=== PATIENT | female | born 1980 | race Caucasian/White ===

== ENCOUNTER 2018-01-20 16:09 | Emergency (ER) | payer SELFPAY ==
[2018-01-20 16:10] VITALS: BP 130/85; PULSE 86; RESP 16; TEMP 37.4; O2SAT 100; BMI 20.9
--- NOTE | 2018-01-20 16:33 | ED.VISSUMM ---
- ER Visit Summary Date of Service: 01/20/18 Chief Complaint: Pain and laceration right forearm secondary to blunt trauma History of Present Illness: The patient is a 37 F who is right-handed presents with laceration proximal volar right forearm that measures 6.1 cm and pain to palpation over the ulna at the junction of the distal and mid third. She denies any paresthesia, anesthesia motors. She does complain of pain with certain movement. Last tetanus shot 4-5 years ago. She has no other complaints Physical Examination: Vital signs are noted. She has a 6.1 cm laceration which will require repair. The fascia was violated. There is no pain the patient over the lateral medial epicondyle. No pain the patient of the radial head. Is no pain the patient over the olecranon process. There is pain palpation over the ulna at the junction of the distal and mid third. Median, radial and ulnar function intact. Sensation in all digits is normal. Capillary refill is normal. Radial pulses palpable and symmetric. Extensor pollicis longus tendon is intact. The extensor in the side extensor commonest tendon are intact. The flexor digitorum superficialis and flexor digitorum profundus is intact in the index, long, ring and little finger. She is able to AB duct and adductor thumb against resistance. Test Results: Two-view x-ray of the right forearm reveals no fracture. There appears to be a small metallic foreign body which may be secondary to the shavings of the edge of the door. There also appears to be another foreign body. Radiologist concerned there is 2 foreign bodies. Emergency Department Course and Treatment: Will obtain x-ray of the forearm to evaluate for fracture and foreign body. If there is a fracture will contact orthopedics otherwise will repair wound. Treatment Plan: The wound was anesthetized 1% lidocaine by local filtration. The wound was irrigated and 50 cc of normal saline. Several fragments of metallic foreign body were irrigated from wound. The larger possible foreign body was not palpable and none was visualized. Believe the larger superficial foreign body was artifact in light of no foreign body noted on expiration of the wound. The laceration was closed in 2 layers. 2 subcuticular stitches placed using 5-0 Vicryl. The skin was closed using 5-0 Ethilon. A running stitch was placed with good cosmesis hemostasis. Disposition: Discharged home with appropriate home-going instructions Impression: 6.1 cm laceration proximal volar right forearm 2 layer closure initial encounter Removal of metallic foreign bodies by irrigation. This note was generated with SET dictation software. It may contain incorrect words, spelling, and punctuation that were not noted in review of the chart prior to signing ED Disposition - Plan for ED Patient: Disposition: Home or Assisted Living Chief Complaint: Laceration Instructions: ED Laceration Ext Sutr Stap Tape Referrals: Care Physician,No Primary [Primary Care Provider] - Caitlin Grimm [NON-STAFF] - 10-14 Days suture removal Additional Instructions: Clean wound with peroxide and Q-tip 3 times a day then apply bacitracin ointment.
== END 2018-01-20 17:42 | disposition home or self-care (01) ==
PROVIDERS: Emergency Provider Emergency Medicine
DX: S51.821A Laceration with foreign body of right forearm, initial encounter (principal); W45.8XXA Other foreign body or object entering through skin, initial encounter; Y93.9 Activity, unspecified; Y92.89 Other specified places as the place of occurrence of the external cause; Y99.9 Unspecified external cause status; Z72.0 Tobacco use
CPT/HCPCS: 12032; 73090; 99283

== ENCOUNTER 2018-02-03 12:07 | Emergency (ER) | payer SELFPAY ==
[2018-02-03 12:09] VITALS: BP 106/73; PULSE 94; RESP 18; TEMP 36.4; O2SAT 98; BMI 22.3
--- NOTE | 2018-02-03 13:19 | ED.VISSUMM ---
- ER Visit Summary Date of Service: 02/03/18 Chief Complaint: Suture removal History of Present Illness: The patient is a 37 F here requesting suture removal from her right forearm. Sutures were placed 15 days ago. There has been no redness or drainage. No complaints. Physical Examination: Sutures are clean, dry. No evidence of infection. No cellulitis. Test Results: None Emergency Department Course and Treatment: Moved without difficulty. No complications. No sign of infection Treatment Plan: Follow-up as needed Disposition: Home stable Impression: Encounter for suture removal right forearm This note was generated with [employer] dictation software. It may contain incorrect words, spelling, and punctuation that were not noted in review of the chart prior to signing ED Disposition - Plan for ED Patient: Chief Complaint: Wound Instructions: ED Sutr Removal No Compl Ch Referrals: Care Physician,No Primary [Primary Care Provider] -
== END 2018-02-03 14:02 | disposition home or self-care (01) ==
PROVIDERS: Emergency Provider Emergency Medicine
DX: Z48.02 Encounter for removal of sutures (principal)
CPT/HCPCS: 99282

== ENCOUNTER 2021-02-27 21:45 | Emergency (ER) | payer SELFPAY ==
[2021-02-27 21:46] VITALS: BP 158/112; PULSE 107; RESP 16; TEMP 36.2; O2SAT 98; BMI 25.3
--- NOTE | 2021-02-27 22:50 | ED.RN ---
witnessed doctor exam to R breast. Patient states she squeezed and some drainage came out but had not noticed that earlier. Patient demonstrate and swab sent.
--- NOTE | 2021-02-27 22:53 | EX.ED.DYSGE1 ---
HPI History of Present Illness Chief Complaint: Abscess Informant: patient Narrative Narrative: 40-year-old female states that on february she had nipple piercings placed. States she is doing well until this morning when she noticed that the right breast seem to be firmer and she was expressing pus from the nipple. She notes some mild erythema extending the medial upper quadrant of the breast. No reported fevers. PFSH PFSH Medical History Tubal ligation evaluation Home Medications cephalexin 500 mg PO Q6 #40 capsule 02/27/21 [Rx Last Taken Unknown] Allergy/AdvReac Type Severity Reaction Status Date / Time No Known Allergies Allergy Verified 02/27/21 21:48 Surgical History H/O tubal ligation Social History (Updated 02/27/21 @ 22:[address] James Wiley DO) Smoking Status: Current every day smoker tobacco type: cigarettes substance use type: does not use ROS ROS ED Constitutional Constitutional ED: Denies chills or weight loss Eyes Eyes: Denies change in vision or diplopia ENT ENT ED: Denies ear pain, rhinorrhea or sore throat Cardiovascular Cardiovascular: Denies chest pain, orthopnea, palpitations or racing heartbeat Respiratory/Chest Respiratory/Chest: Denies cough, dyspnea or orthopnea Gastrointestinal Gastrointestinal: Denies abdominal pain, diarrhea, nausea or vomiting Genitourinary Genitourinary ED: Denies dysuria, hematuria or urinary frequency Musculoskeletal Musculoskeletal: Denies arthralgias or myalgias Integumentary Reports other Details: See HPI ; Denies abscess or rash Neurologic Neurologic: Denies headache(s) or weakness Psychiatric Psychiatric: Denies anxiety, depression, suicidal ideation or suicidal thoughts Endocrine Endocrinology: Denies polydipsia, polyphagia or polyuria Allergic/Immunologic Allergic/Immunologic ED: Denies mouth swelling, tongue swelling or urticaria EXAM Physical Exam Narrative Exam Narrative: Patient examined in the presence of female nurse. Const Vital Signs: 02/27/21 21:46 Temperature 97.1 F L Temperature Source Temporal Pulse Rate 107 H Respiratory Rate 16 Blood Pressure 158/112 H Blood Pressure Mean 127 Pulse Ox 98 Oxygen Delivery Method Room Air Positive well nourished and well developed General Appearance ED: well developed HEENT Reports normocephalic, head/scalp atraumatic and moist mucous membranes Eyes PERRL and EOMs intact bilaterally Neck no lymphadenopathy, supple and no JVD Chest Wall Chest Narrative: Right breast demonstrates some erythema of the medial upper quadrant. There is a nipple piercing in place. There is a yellowish drainage from the nipple. There is some edema of the breast posterior to the nipple. Resp normal respiratory effort and clear to auscultation bilaterally Cardio regular rate, regular rhythm and no murmurs GI normal to inspection, nondistended, normoactive bowel sounds and non-tender Palpation: soft Back/Spine no CVA tenderness and normal ROM Extremity normal to inspection General Extremety ED: Negative for edema General Extremity: Negative for edema Neuro oriented x3 and CN's II-XII intact bilaterally Sensorium / Orientation: alert Motor Exam: strength 5/5 throughout Psych mental status grossly normal Mood & Affect: Negative for depressed or tearful Skin no rashes or lesions noted and no wounds MDM MDM MDM Narrative Medical decision making narrative: Wound culture was obtained. Patient be started on Keflex. Patient is to remove the piercing with. Clean appropriately using warm compresses. Return if worsening or concerns Discharge Plan Triage Chief Complaint: Abscess ED Provider: James Wiley Dx/Rx/DC Orders Clinical Impression: Mastitis, Infected piercing of trunk Instructions: ED Mastitis Prescriptions: New cephalexin [cephalexin] 500 MG capsule 500 mg PO Q6 Qty: 40 RF: 0 Primary Care Provider: Care Physician,No Primary Referrals: Carolyn Rodriguez MD [STAFF PHYSICIAN] - 1 Week if not improving Care Physician,No Primary [Primary Care Provider] - Disposition Disposition: Home, Self Care
[2021-02-27] MEDS: Cephalexin 250 MG Capsule 500 MG PO (23:00)
== END 2021-02-27 23:02 | disposition home or self-care (01) ==
PROVIDERS: Emergency Provider Emergency Medicine
DX: N61.0 Mastitis without abscess (principal); F17.210 Nicotine dependence, cigarettes, uncomplicated
CPT/HCPCS: 87070; 87077; 87186; 87205; 99283

== ENCOUNTER 2021-08-22 09:59 | Inpatient (IN) | payer SELFPAY ==
[2021-08-22] VITALS (14 sets, daily range): BP systolic 156–180; BP diastolic 103–123; PULSE 95–117; RESP 14–18; TEMP 36.5–36.7; O2SAT 94–98; BMI 24.2; BMI 23.6
--- NOTE | 2021-08-22 10:12 | EDS_ITS ---
HPI HPI - GI History of Present Illness Chief Complaint: Abd Pain Informant: patient Abdominal Pain/Flank Pain Onset: Today Context: Sudden Onset Timing: Continuous Quality: Stabbing Location: Epigastric Worsened by: Nothing Relieved by: Nothing Nausea/Vomiting/Emesis GI Symptom: Positive for Nausea and Vomiting Quality: Positive for Nonbilious; Negative for Blood streaks, Coffee ground and Hematemesis Episodes: 1 Diarrhea/Melena/Hematochezia GI Symptom: Negative for Diarrhea, Melena and Hematochezia Associated Symptoms Associated Symptoms: Negative for Dysuria, Frequency and Hematuria Narrative Narrative: Patient presents with epigastric pain that began this morning. Patient states it began rather suddenly. Patient describes the pain as stabbing. Patient states it has been constant throughout the day today. Patient states the pain is over the epigastric area and radiates up into her chest. Patient states nothing makes it better nothing makes it worse. Patient had one episode of vomiting today. Patient denies any hematemesis or coffee- ground emesis. Patient denies any diarrhea, melena, or hematochezia. Patient states her pain does radiate into her back. Patient denies any urinary complaints. [facility] Medical History Pancreatitis Tubal ligation evaluation Home Medications NK 08/22/21 [History Last Taken Unknown] Allergy/AdvReac Type Severity Reaction Status Date / Time No Known Allergies Allergy Verified 08/22/21 10:02 Surgical History H/O tubal ligation Social History (Updated 08/22/21 @ 13:[address] Karin Mckeon MD) household members: family and children housing: house Smoking Status: Current every day smoker tobacco type: cigarettes alcohol intake: current alcohol intake frequency: 0-2 drinks per day substance use type: does not use ROS ROS ED Constitutional Constitutional ED: Denies chills or fever(s) Eyes Eyes: Denies blurry vision or change in vision ENT ENT ED: Denies rhinorrhea or sore throat Cardiovascular Cardiovascular: Reports chest pain; Denies palpitations Respiratory/Chest Respiratory/Chest: Reports cough; Denies dyspnea Gastrointestinal Gastrointestinal: Reports abdominal pain, nausea and vomiting; Denies diarrhea or melena Genitourinary Genitourinary ED: Denies dysuria or hematuria Musculoskeletal Musculoskeletal: Reports back pain; Denies neck pain Integumentary Denies abscess or rash Neurologic Neurologic: Denies headache(s) or weakness Allergic/Immunologic Allergic/Immunologic ED: Denies mouth swelling or urticaria EXAM Physical Exam Const Vital Signs: 08/22/21 10:00 08/22/21 11:19 Temperature 97.8 F Temperature Source Temporal Pulse Rate 101 H 102 H Respiratory Rate 18 16 Blood Pressure 156/103 H 170/115 H Blood Pressure Mean 120 133 Pulse Ox 98 96 Oxygen Delivery Method Room Air Room Air Positive well nourished and well developed General Appearance ED: well developed HEENT Reports moist mucous membranes Neck supple and no JVD Resp normal respiratory effort and clear to auscultation bilaterally Cardio regular rate, regular rhythm and no murmurs GI normal to inspection, nondistended, normoactive bowel sounds Palpation: soft and tender epigastric; Negative for guarding or rebound tenderness present Extremity normal to inspection General Extremety ED: Negative for edema or tenderness General Extremity: Negative for edema Neuro oriented x3, CN's II-XII intact bilaterally and no sensory deficits noted Sensorium / Orientation: alert Motor Exam: strength 5/5 throughout Psych mental status grossly normal Skin no rashes or lesions noted MDM MDM MDM Narrative Medical decision making narrative: Patient was given IV fluids, morphine, and Zofran initially. EKG was obtained. On my interpretation, it showed a normal sinus rhythm with a rate of 92. [place] interval, QRS interval, and QTc intervals were all normal. [place] was normal. There is biatrial enlargement noted. There are no acute ST or T wave changes. CBC shows a mild leukocytosis of 14.7. Comprehensive metabolic profile shows a slightly elevated AST of 124 and ALT of 108. Lipase was 5000. Serum hCG was negative. Urinalysis does not show any evidence of urinary tract infection. Patient was complaining of persistent pain despite the morphine. Patient was given a dose of Dilaudid. Patient is feeling better after this. Case was discussed with the hospitalist. She recommended obtaining a CT scan of her abdomen and pelvis. This showed extensive peripancreatic edema with mild heterogeneous attenuation of the pancreas. There is no phlegmon or abscess noted. There is no pseudocyst noted. She will admit the patient to her service. Patient understood and was agreeable with the plan. All questions were answered. Lab Data Attestation: I reviewed the patient's lab results. Labs: Laboratory Results - last 24 hr 08/22/21 08/22/21 08/22/21 10:35 10:35 10:35 WBC 14.7 H RBC 4.73 Hgb 16.3 H Hct 46.6 MCV 98.5 MCH 34.5 H MCHC 35.0 RDW Std Deviation 46.8 H RDW Coeff of Frankie 12.8 Plt Count 381 MPV 9.8 Immature Gran % (Auto) 0.500 Neut % (Auto) 87.4 H Lymph % (Auto) 6.9 L [place] % (Auto) 4.8 Eos % (Auto) 0.1 Baso % (Auto) 0.3 Absolute Neuts (auto) 12.9 H Absolute Lymphs (auto) 1.01 Nucleated RBC % 0 Sodium 140 Potassium 3.1 L Chloride 103 Carbon Dioxide 28.0 Anion Gap 9 BUN 9 Creatinine 0.73 Estim Creat Clear Calc 86.69 Est GFR (MDRD) Af Amer 113 Est GFR (MDRD) Non-Af 93 BUN/Creatinine Ratio 12.4 Glucose 132 H Calcium 9.5 Total Bilirubin 0.50 AST 124 H ALT 108 H Alkaline Phosphatase 102 Total Protein 7.8 Albumin 3.9 Globulin 3.9 Albumin/Globulin Ratio 1.0 Lipase 5000 H Serum , Qual NEGATIVE Urine Color Urine Clarity Urine pH Ur Specific [place] Urine Protein Urine Glucose (UA) Urine Ketones Urine Occult Blood Urine Nitrite Urine Bilirubin Urine Urobilinogen Ur Leukocyte Esterase Urine RBC Urine WBC Ur Squamous Epith Cells Urine Bacteria Urine Mucus 08/22/21 10:35 WBC RBC Hgb Hct MCV MCH MCHC RDW Std Deviation RDW Coeff of Frankie Plt Count MPV Immature Gran % (Auto) Neut % (Auto) Lymph % (Auto) [place] % (Auto) Eos % (Auto) Baso % (Auto) Absolute Neuts (auto) Absolute Lymphs (auto) Nucleated RBC % Sodium Potassium Chloride Carbon Dioxide Anion Gap BUN Creatinine Estim Creat Clear Calc Est GFR (MDRD) Af Amer Est GFR (MDRD) Non-Af BUN/Creatinine Ratio Glucose Calcium Total Bilirubin AST ALT Alkaline Phosphatase Total Protein Albumin Globulin Albumin/Globulin Ratio Lipase Serum , Qual Urine Color Yellow Urine Clarity Cloudy Urine pH 6.0 Ur Specific [place] 1.025 Urine Protein 100 H Urine Glucose (UA) Normal Urine Ketones 5 H Urine Occult Blood 25 H Urine Nitrite Negative Urine Bilirubin Negative Urine Urobilinogen 1 H Ur Leukocyte Esterase 25 H Urine RBC 0-5 SEEN Urine WBC 0-5 SEEN Ur Squamous Epith Cells 5-10 SEEN Urine Bacteria 4+ Urine Mucus RARE EKG Initial EKG: Attestation: I personally reviewed and interpreted this EKG as follows: Interpretation: Sinus Rhythm (92) and No Acute Injury Pattern Discharge Plan Dx/Rx/DC Orders Clinical Impression: Acute pancreatitis Disposition Disposition: Acute Care Hospital [facility] Discharge Date/Time: 08/22/21 14:15
[2021-08-22] MEDS: 0.9% Normal Saline 1,000 ML 1000 ML IV (10:30)
[2021-08-22] MEDS: Morphine 4 MG/ML Syringe IV (10:31)
[2021-08-22] MEDS: Ondansetron 4 MG/2 ML Vial IV (10:31)
[2021-08-22 10:42] LABS: Absolute Lymphocyte Count 1.01 X10^3/uL (0.83-4.51); Absolute Neutrophil Count 12.9 X10^3/uL (2.0-7.7); Basophil# 0.04 X10^3/uL; Basophil% 0.3 % (0-1); Color, Urine Yellow (Yellow); Eosinophil# 0.01 X10^3/uL; Eosinophils% 0.1 % (0-5); Glucose, Dipstick Normal (Normal); Hematocrit 46.6 % (37-47); Hemoglobin 16.3 g/dL (12.0-15.0); Ketone-Dipstick 5 mg/dl (Negative); Leukocyte Esterase-Dipstick 25 /ul (Negative); Lymphocyte # 1.01 X10^3/ul (0.83-4.51); Lymphocyte % 6.9 % (19-41); Mean Corpuscular Hgb 34.5 pg (27.0-32.0); Mean Corpuscular Volume 98.5 fL (81-99); Mean Platelet Vol. 9.8 fl (6.2-12.0); Monocyte% 4.8 % (0-10); NRBC Flagged by Analyzer 0 % (0-5); Neutrophil % 87.4 % (47-70); Nitrite-Dipstick Negative (Negative); Occult Blood-Urine 25 /ul (Negative); Platelet Count 381 K/mm3 (150-450); Protein-Dipstick 100 mg/dl (Negative); RBC Distribution Width CV 12.8 % (11.6-14.6); RBC Distribution Width SD 46.8 fl (35.1-43.9); Red Blood Count 4.73 M/mm3 (4.2-5.4); Specific Gravity, Urine 1.025 (1.002-1.030); Urine Bilirubin Dipstick Negative (Negative); Urine Clarity Cloudy (Clear); Urine Urobilinogen 1 mg/dl (Normal); White Blood Count 14.7 K/mm3 (4.4-11.0)
[2021-08-22 10:48] LABS: Red Blood Cells-Urine 0-5 SEEN /hpf (0-5); White Blood Cells 0-5 SEEN /hpf (0-5)
[2021-08-22 10:49] LABS: Bacteria 4+ /hpf (None Seen); Mucous, Urine RARE /hpf (<or=2+); Squamous Epithelial Cells - UA 5-10 SEEN /hpf (5-10)
[2021-08-22 11:13] LABS: AST(SGOT) 124 U/L (15-37); Alanine Aminotransfer ALT/SGPT 108 U/L (13-56); Albumin, Serum 3.9 g/dL (3.2-5.0); Alkaline Phosphatase 102 U/L (45-117); Anion Gap 9 (5-15); BUN 9 mg/dL (7-18); BUN/Creat Ratio 12.4 RATIO (10-20); Calcium,Total 9.5 mg/dL (8.5-10.1); Chloride 103 mmol/L (98-107); Creatinine, Serum 0.73 mg/dL (0.55-1.02); EST Glomerular Filtration Rate 93 mL/min (>60); Est Glom Filt Rate - Afr Amer 113 mL/min (>60); Estimated Creatinine Clearance 86.69 ml/min; Globulin 3.9 g/dL (2.2-4.2); Glucose 132 mg/dL (74-106); Lipase 5000 U/L (73-393); Potassium 3.1 mmol/L (3.5-5.1); Protein, Total 7.8 g/dL (6.4-8.2); Sodium Level 140 mmol/L (136-145)
[2021-08-22 11:29] LABS: Internal QC Validated? YES +Cl - CLEAR BKGD; Pregnancy, Serum, hCG Quali. NEGATIVE Negative
[2021-08-22] MEDS: HYDROmorphone 1 MG/ML Syringe 0.5 MG IV (12:10)
--- NOTE | 2021-08-22 12:38 | HP.PCM.HOS_ITS ---
[facility] - General General Date of Service: 08/22/21 Chief Complaint: Abdominal pain, nausea and vomiting - 1 day HPI Narrative ERWIN GROVES, is a 41 F who presents with abdominal pain, nausea and vomiting that started this morning at 6 AM. Patient has history of chronic alcohol abuse, she drinks 2 glasses of vodka cranberry every day. She has a history of acute pancreatitis related to alcohol about a year ago. She was admitted at [facility]. Patient stated that her abdominal pain is epigastric/substernal, seems to radiate to both sides of the upper abdomen and to her back. This was associated with nausea. Nothing makes it better, nothing makes it worse. She had an episode of vomiting, no hematemesis. She tried to take 2 tablets of ibuprofen with no improvement in her pain. Her blood pressure 156/103, temperature 97.8 F, heart rate 101, respiration rate 18, SPO2 98% on room air WBC count is 14.7, hemoglobin 16.3, platelet count 381, sodium 140, potassium 3.1, chloride 103, bicarbonate 28, BUN 9, creatinine 0.73, lipase is 5000. CT scan of abd/pelvis and EKG are pending. [facility] Medical History Pancreatitis Tubal ligation evaluation Home Medications NK 08/22/21 [History Last Taken Unknown] Allergy/AdvReac Type Severity Reaction Status Date / Time No Known Allergies Allergy Verified 08/22/21 10:02 no significant family history Surgical History H/O tubal ligation Social History (Updated 08/22/21 @ 13:[address] Karin Mckeon MD) household members: family and children housing: house Smoking Status: Current every day smoker tobacco type: cigarettes alcohol intake: current alcohol intake frequency: 0-2 drinks per day substance use type: does not use ROS ROS Narrative Constitutional: Denies: Anorexia, Chills, Fever, Night Sweats, Weight Change Eyes: Denies: Blurred vision, Cataracts, Conjunctivae Inflammation, Pain, Redness, Vision Change HEENT: Denies: Difficulty Hearing, Difficulty Swallowing, Head Aches, Hearing Changes, Sinus Congestion, Sinus Drainage Cardiovascular: Denies: Chest Pain, Orthopnea, Palpitations Respiratory: Denies: Cough, Shortness of breath at rest, Sputum production Gastrointestinal: See HPI Genitourinary: Denies: Dysuria Musculoskeletal: Denies: Joint Pain, Joint stiffness, Joint swelling, Joint Tenderness Skin: Denies: Rash, Wounds Neurological: Denies: Numbness, Tingling, Focal weakness Vital Signs Vital Signs Vital Signs: 08/22/21 10:00 08/22/21 11:19 Temperature 97.8 F Temperature Source Temporal Pulse Rate 101 H 102 H Respiratory Rate 18 16 Blood Pressure 156/103 H 170/115 H Blood Pressure Mean 120 133 Pulse Ox 98 96 Oxygen Delivery Method Room Air Room Air Weight Weight: 64 kg Body Mass Index (BMI) 24.2 Physical Exam Narrative Physical exam: General: Alert, Oriented x3, Cooperative, No apparent distress, Well developed HEENT: Atraumatic Oral: Moist Mucosa Neck: Supple Lungs: Clear to auscultation Cardiovascular: HS I+II, regular, no murmurs Abdomen: Bowel Sounds Present, Soft, tenderness in upper abdomen especially in epigastric with guarding, no rebound tenderness Extremities: No edema Skin: No rashes, No breakdown Neurological: Grossly intact Psych/Mental Status: Appropriate Results Lab / Micro Data Result Diagrams: 08/22/21 10:35 08/22/21 10:35 Labs: Laboratory Results - last 24 hr 08/22/21 10:35: WBC 14.7 H, RBC 4.73, Hgb 16.3 H, Hct 46.6, MCV 98.5, MCH 34.5 H , MCHC 35.0, RDW Std Deviation 46.8 H, RDW Coeff of Frankie 12.8, Plt Count 381, MPV 9.8, Immature Gran % (Auto) 0.500, Neut % (Auto) 87.4 H, Lymph % (Auto) 6.9 L, [place] % (Auto) 4.8, Eos % (Auto) 0.1, Baso % (Auto) 0.3, Absolute Neuts (auto) 12.9 H, Absolute Lymphs (auto) 1.01, Nucleated RBC % 0 08/22/21 10:35: Sodium 140, Potassium 3.1 L, Chloride 103, Carbon Dioxide 28.0, Anion Gap 9, BUN 9, Creatinine 0.73, Estim Creat Clear Calc 86.69, Est GFR (MDRD) Af Amer 113, Est GFR (MDRD) Non-Af 93, BUN/Creatinine Ratio 12.4, Glucose 132 H, Calcium 9.5, Total Bilirubin 0.50, AST 124 H, ALT 108 H, Alkaline Phosp hatase 102, Total Protein 7.8, Albumin 3.9, Globulin 3.9, Albumin/Globulin Ratio 1.0, Lipase 5000 H 08/22/21 10:35: Serum , Qual NEGATIVE 08/22/21 10:35: Urine Color Yellow, Urine Clarity Cloudy, Urine pH 6.0, Ur Specific [place] 1.025, Urine Protein 100 H, Urine Glucose (UA) Normal, Urine Ketones 5 H, Urine Occult Blood 25 H, Urine Nitrite Negative, Urine Bilirubin Negative, Urine Urobilinogen 1 H, Ur Leukocyte Esterase 25 H, Urine RBC 0-5 SEEN, Urine WBC 0-5 SEEN, Ur Squamous Epith Cells 5-10 SEEN, Urine Bacteria 4+, Urine Mucus RARE Assessment & Plan Assessment/Plan (1) Acute pancreatitis: QUALIFIERS: Acute pancreatitis complication: no infection or necrosis Pancreatitis type: alcohol induced Qualified Code(s): K85.20 - Alcohol induced acute pancreatitis without necrosis or infection (2) Hypokalemia: PLAN: 1. Acute alcohol induced pancreatitis, in a patient with known alcohol abuse Patient with symptoms that started on the morning of admission. Admitting lipase is 5000 CT of the abdomen and pelvis is pending Continue to keep n.p.o., IV fluids, IV famotidine 2. Hypokalemia related to vomiting #1 Will replaced, recheck in a.m. 3. 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 Nicotine dependence, on replacement 5. DVT PPx-low risk; early ambulation recommended Charges/Coding Visit Charges Inpatient E&M: 81832 Init Hosp L3
--- NOTE | 2021-08-22 12:45 | CT_ITS ---
STUDY: CT ABDOMEN AND PELVIS WITH CONTRAST REASON FOR EXAM: Female, 41 years old. Pancreatitis RADIATION DOSAGE (If Supplied By Facility): CTDIvol = ( 11.00 ) mGy, DLP = ( 420.18 ) mGycm TECHNIQUE: Transaxial images were obtained from the dome of the diaphragm to the symphysis pubis without oral contrast. IV 100mL Isovue-300 was administered. Sagittal and coronal images were reconstructed. Individualized dose optimization techniques were used for this CT. COMPARISON: 07/10/14. FINDINGS: The visualized lung bases are unremarkable. The visualized portions of the heart are within normal limits. Normal liver. Normal gallbladder and extrahepatic biliary system. Normal spleen. There is minimal heterogeneous attenuation of the pancreas with extensive ivory-pancreatic edema suggesting acute pancreatitis. Normal bilateral adrenal glands. Normal right kidney. Normal left kidney. Normal visualized stomach. Normal small intestine. Normal colon. The appendix is visualized and appears normal. Normal abdominal aorta. Normal inferior vena cava. Normal retroperitoneum. Small amount of gas within the urinary bladder may be related to recent instrumentation. Normal visualized uterus. There is a small umbilical hernia containing fat. Normal osseous structures. CT/Abdomen/Pelvis W IV Cont ONLY IMPRESSION: Extensive peripancreatic edema and mild heterogeneous attenuation of the pancreas likely represents acute pancreatitis in the appropriate clinical setting. No focal collection or gross evidence of necrosis at this time. Electronically Signed: Ned Jensen MD at 14:25 EDT ,
--- NOTE | 2021-08-22 12:56 | EKG12_ITS ---
Test Reason : ABDOMINAL PAIN Blood Pressure : / mmHG Vent. Rate : 092 BPM Atrial Rate : 092 BPM P-R Int : 158 ms QRS Dur : 080 ms QT Int : 392 ms P-R-T Axes : 068 012 062 degrees QTc Int : 484 ms Normal sinus rhythm Biatrial enlargement Prolonged QT Abnormal ECG Confirmed by HANNAH TEMPLETON, STEFANI ([id number]), visual effects editor CONNIE REYES ([id number]) on 08/26/2021 9:18:15 AM Referred By: JOSE Confirmed By:STEFANI YOUNG MD
[2021-08-22] MEDS: HYDROmorphone 0.5 MG/0.5 ML SYRINGE IV (14:06)
--- NOTE | 2021-08-22 14:27 | US_ITS ---
EXAM: US ABDOMEN LIMITED, RIGHT UPPER QUADRANT : 1980 CLINICAL INDICATION: Acute pancreatitis TECHNIQUE: Real-time ultrasound of the right upper quadrant with image documentation. This report was created using Eponym report Say-Hey technology. COMPARISON: None. FINDINGS: LIVER: The liver measures 16.9 cm. There is mild increased echogenicity of the liver. No intrahepatic biliary ductal dilation. GALLBLADDER: Gallbladder wall measures 2.7 mm. There is a small amount of pericholecystic fluid. Negative sonographic Lindsay's sign. COMMON BILE DUCT: Common bile that measures 5.5 mm. The proximal common bile duct is within normal limits for the patient's age. PANCREAS: Unremarkable as visualized. No focal abnormality is demonstrated in the pancreas. No pancreatic ductal dilatation. RIGHT KIDNEY: Right kidney measures 11.2 x 6.8 x 6.1 cm. Right renal cortex measures 1.4 cm. There is no hydronephrosis. No shadowing calculus. No focal lesion or perinephric collection is demonstrated. FREE FLUID: There is a small amount of free fluid present surrounding the liver margin. US/Gallbladder IMPRESSION: Free fluid in the upper abdomen which may represent ascites. There is no evidence of cholelithiasis or cholecystitis. There is mild fatty infiltration of the liver. at 1129 Reported and signed by: Frank Ramos MD Electronically Signed: Frank Ramos MD at 11:28 EDT ,
[2021-08-22] MEDS: Lactated Ringers 1,000 ML 150 ML IV (14:41)
[2021-08-22] MEDS: Potassium Chloride 10mEq/100mL 10 MEQ/100 ML IV.SOLN. 100 MEQ IV BOLUS ×4 (14:54→18:08)
[2021-08-22] MEDS: Phenobarbital 32.4 MG Tablet 64.8 MG PO ×3 (15:50→23:47)
[2021-08-22] MEDS: hydrALAZINE 20 MG/ML Vial 5 MG IV (15:54)
[2021-08-22] MEDS: 0.9% Saline Lock 10 ML Syringe IV (17:01)
[2021-08-22] MEDS: HYDROmorphone 1 MG/ML Syringe 2 MG IV ×2 (17:01→22:19)
[2021-08-22 17:03] LABS: Magnesium 1.5 mg/dL (1.6-2.6)
[2021-08-22] MEDS: amLODIPine 5 MG Tablet PO (18:08)
[2021-08-22] MEDS: cloNIDine HCl 0.1 MG Tablet PO (20:46)
[2021-08-22] MEDS: Lactated Ringers 1,000 ML 75 ML IV (23:48)
[2021-08-23] VITALS (7 sets, daily range): BP systolic 110–159; BP diastolic 78–112; PULSE 111–117; RESP 15–16; TEMP 36–36.9; O2SAT 94–100
[2021-08-23] MEDS: 0.9% Saline Lock 10 ML Syringe IV ×2 (02:38→10:05)
[2021-08-23] MEDS: HYDROmorphone 1 MG/ML Syringe 2 MG IV ×5 (02:39→20:35)
[2021-08-23] MEDS: Phenobarbital 32.4 MG Tablet 64.8 MG PO ×5 (04:15→20:14)
[2021-08-23 06:32] LABS: Absolute Lymphocyte Count 1.11 X10^3/uL (0.83-4.51); Absolute Neutrophil Count 7.7 X10^3/uL (2.0-7.7); Basophil# 0.02 X10^3/uL; Basophil% 0.2 % (0-1); Eosinophil# 0.13 X10^3/uL; Eosinophils% 1.3 % (0-5); Hematocrit 43.5 % (37-47); Hemoglobin 15.1 g/dL (12.0-15.0); Lymphocyte # 1.11 X10^3/ul (0.83-4.51); Lymphocyte % 11.4 % (19-41); Mean Corp Hgb Conc 34.7 g/dL (32-36); Mean Corpuscular Hgb 34.2 pg (27.0-32.0); Mean Corpuscular Volume 98.6 fL (81-99); Mean Platelet Vol. 10.3 fl (6.2-12.0); Monocyte# 0.69 X10^3/uL; Monocyte% 7.1 % (0-10); NRBC Flagged by Analyzer 0 % (0-5); Neutrophil # 7.74 X10^3/uL (2.7-7.7); Neutrophil % 79.5 % (47-70); Platelet Count 277 K/mm3 (150-450); RBC Distribution Width CV 12.9 % (11.6-14.6); RBC Distribution Width SD 46.9 fl (35.1-43.9); Red Blood Count 4.41 M/mm3 (4.2-5.4); White Blood Count 9.7 K/mm3 (4.4-11.0)
[2021-08-23 06:52] LABS: AST(SGOT) 45 U/L (15-37); Alanine Aminotransfer ALT/SGPT 59 U/L (13-56); Alkaline Phosphatase 81 U/L (45-117); Anion Gap 5 (5-15); BUN 11 mg/dL (7-18); BUN/Creat Ratio 16.9 RATIO (10-20); Calcium,Total 8.8 mg/dL (8.5-10.1); Chloride 101 mmol/L (98-107); Cholesterol 225 mg/dL (200); Creatinine, Serum 0.65 mg/dL (0.55-1.02); EST Glomerular Filtration Rate 106 mL/min (>60); Est Glom Filt Rate - Afr Amer 128 mL/min (>60); Estimated Creatinine Clearance 97.36 ml/min; Glucose 96 mg/dL (74-106); Potassium 3.6 mmol/L (3.5-5.1); Sodium Level 136 mmol/L (136-145); Triglycerides 104 mg/dL
[2021-08-23 06:53] LABS: High Density Lipoprotein 65 mg/dL; Very Low Density Lipoprotein 21 mg/dL (5-40)
--- NOTE | 2021-08-23 07:47 | PCM.PN.HOSP ---
Subjective Subjective Follow-up on acute pancreatitis/elevated blood pressure: Patient was seen and examined. No acute events overnight. She denied any nausea or vomiting. She admits to epigastric discomfort but states that her pain in general is improved. Objective Data Objective Data Vital Signs: Vital Signs Temp Pulse Resp BP Pulse Ox 96.8 F L 112 H 16 110/78 98 08/23/21 06:20 08/23/21 06:20 08/23/21 06:20 08/23/21 06:20 08/23/21 06:20 Oxygen Delivery Method Room Air Weight: 62.596 kg Body Mass Index (BMI) 23.6 Intake & Output: Intake and Output for Last 24 Hours 08/21/21 08/22/21 08/23/21 23:59 23:59 23:59 Intake Total 2341.25 / 2341.25 175 / 175 Balance 2341.25 / 2341.25 175 / 175 Lab / Micro Data Result Diagrams: 08/23/21 05:50 08/23/21 05:50 Labs: Laboratory Results - last 24 hr 08/22/21 10:35: WBC 14.7 H, RBC 4.73, Hgb 16.3 H, Hct 46.6, MCV 98.5, MCH 34.5 H, MCHC 35.0, RDW Std Deviation 46.8 H, RDW Coeff of Frankie 12.8, Plt Count 381, MPV 9.8, Immature Gran % (Auto) 0.500, Neut % (Auto) 87.4 H, Lymph % (Auto) 6.9 L, [place] % (Auto) 4.8, Eos % (Auto) 0.1, Baso % (Auto) 0.3, Absolute Neuts (auto) 12.9 H, Absolute Lymphs (auto) 1.01, Nucleated RBC % 0 08/22/21 10:35: Sodium 140, Potassium 3.1 L, Chloride 103, Carbon Dioxide 28.0, Anion Gap 9, BUN 9, Creatinine 0.73, Estim Creat Clear Calc 86.69, Est GFR (MDRD) Af Amer 113, Est GFR (MDRD) Non-Af 93, BUN/Creatinine Ratio 12.4, Glucose 132 H, Calcium 9.5, Total Bilirubin 0.50, AST 124 H, ALT 108 H, Alkaline Phosphatase 102, Total Protein 7.8, Albumin 3.9, Globulin 3.9, Albumin/Globulin Ratio 1.0, Lipase 5000 H 08/22/21 10:35: Serum , Qual NEGATIVE 08/22/21 10:35: Urine Color Yellow, Urine Clarity Cloudy, Urine pH 6.0, Ur Specific [place] 1.025, Urine Protein 100 H, Urine Glucose (UA) Normal, Urine Ketones 5 H, Urine Occult Blood 25 H, Urine Nitrite Negative, Urine Bilirubin Negative, Urine Urobilinogen 1 H, Ur Leukocyte Esterase 25 H, Urine RBC 0-5 SEEN, Urine WBC 0-5 SEEN, Ur Squamous Epith Cells 5-10 SEEN, Urine Bacteria 4+, Urine Mucus RARE 08/22/21 10:35: Magnesium 1.5 L 08/23/21 05:50: WBC 9.7, RBC 4.41, Hgb 15.1 H, Hct 43.5, MCV 98.6, MCH 34.2 H, MCHC 34.7, RDW Std Deviation 46.9 H, RDW Coeff of Frankie 12.9, Plt Count 277, MPV 10.3, Immature Gran % (Auto) 0.500, Neut % (Auto) 79.5 H, Lymph % (Auto) 11.4 L, [place] % (Auto) 7.1, Eos % (Auto) 1.3, Baso % (Auto) 0.2, Absolute Neuts (auto) 7.7, Absolute Lymphs (auto) 1.11, Nucleated RBC % 0 08/23/21 05:50: Sodium 136, Potassium 3.6, Chloride 101, Carbon Dioxide 30.0, Anion Gap 5, BUN 11, Creatinine 0.65, Estim Creat Clear Calc 97.36, Est GFR (MDRD) Af Amer 128, Est GFR (MDRD) Non-Af 106, BUN/Creatinine Ratio 16.9, Glucose 96, Calcium 8.8, Total Bilirubin 0.80, AST 45 H, ALT 59 H, Alkaline Phosphatase 81, Total Protein 6.0 L, Albumin 3.0 L, Globulin 3.0, Albumin/Globulin Ratio 1.0, Triglycerides 104, Cholesterol 225 H, LDL Cholesterol 139 H, VLDL Cholesterol 21, HDL Cholesterol 65 Radiography Diagnostic Testing: Radiology Impression Abdomen/Pelvis CT 08/22/21 12:45 IMPRESSION: Extensive peripancreatic edema and mild heterogeneous attenuation of the pancreas likely represents acute pancreatitis in the appropriate clinical setting. No focal collection or gross evidence of necrosis at this time. Electronically Signed: Ned Jensen MD at 14:25 EDT , Physical Exam Narrative Physical exam: General: Alert, Oriented x3, Cooperative, No apparent distress, Well developed HEENT: Atraumatic Oral: Moist Mucosa Neck: Supple Lungs: Clear to auscultation Cardiovascular: HS I+II, regular, no murmurs Abdomen: Bowel Sounds Present, Soft, tenderness in upper abdomen especially in epigastric with guarding, no rebound tenderness Extremities: No edema Assessment & Plan Assessment/Plan (1) Acute pancreatitis: QUALIFIERS: Pancreatitis type: alcohol induced Acute pancreatitis complication: no infection or necrosis Qualified Code(s): K85.20 - Alcohol induced acute pancreatitis without necrosis or infection (2) Hypokalemia: PLAN: 1. Acute alcohol induced pancreatitis, in a patient with known alcohol abuse Patient with symptoms that started on the morning of admission. Admitting lipase is 5000 CT of the abdomen and pelvis shows extensive peripancreatic edema suggestive of acute severe pancreatitis Total cholesterol 225, DL is 139, triglycerides is 104 Continue to keep n.p.o., IV fluids, IV famotidine We will get ultrasound of the gallbladder, Would hold off on starting for hyperlipidemia now We will slowly advance diet as can be tolerated 2. Elevated blood pressure without history of hypertension Likely was related to severe pain/discomfort/anxiety Patient required start of amlodipine, hydralazine as needed, clonidine as needed We will continue to monitor with holding parameters for amlodipine 3. Hypokalemia related to vomiting #1, resolved 4. Hypomagnesemia, replaced, recheck in a.m. 5. 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 Nicotine dependence, on replacement 7. DVT PPx-low risk; early ambulation recommended Charges/Coding Visit Charges Inpatient E&M: 44832 Subs Hosp L2
[2021-08-23] MEDS: amLODIPine 5 MG Tablet PO (08:57)
[2021-08-23] MEDS: Folic Acid 1 MG Tablet PO (10:05)
[2021-08-23] MEDS: Thiamine Hydrochloride 100 MG Tablet PO (10:05)
--- NOTE | 2021-08-23 10:05 | CASEMGMT ---
RN CAMRON Assessment: Face to Face with pt for initial transition planning/care coordination assessment. RN CAMRON introduced self and role at [facility], pt voices understanding and consents to assessment. Pt is A/O x4 and answers all questions appropriately at this time. Pt has 2 daughters present in room and is agreeable for assessment to be performed in their presence. Care providers, pharmacy, and demographics verified/updated. Admitting Dx: acute pancreatitis PCP:Pt denies having a PCP. She denies need for this RN CAMRON to provide her with a local healthcare directory of PCP's. She states she will find one on her own. Specialists:Pt denies. Preferred [facility]acy: [facility] Insurance: Self Pay Prescription Benefit: no LW/HPOA: Pt denies having a LW/DPOA and denies need for info regarding AD. LNOK: Kathy Shane, mother Living Arrangements: Pt lives with mother and one dtr in a single story house with 5 steps to enter with a rail. Pt denies concerns at home. Transportation: Pt drives self and denies concerns with transportation. DME/HHC/SNF: Pt denies having any DME, previous HHC or SNF stays. 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 Made pt aware this RN CM was going to ask a few recreational questions and asked if she wanted these to be asked in front of daughters. She states Go ahead, they know everything. Pt reports she drinks two glasses of vodka per night with cranberry juice and smokes 1 pack of cigarettes per day. Pt denies any street or illegal drug use. Pt states no concerns with going home at time of dc. Pt states no further concerns/needs. CM to follow. Advised pt to ask CM if any further question/concerns/needs arise, voices understanding. Pt Goal: Home Plan: Home Pt declines need to designate a person to discuss her dc plan with.
[2021-08-23] MEDS: Ondansetron 4 MG/2 ML Vial IV (12:18)
--- NOTE | 2021-08-23 16:10 | CASEMGMT ---
Social Work Note SANDRA reviewed chart. Referral was received for Advanced Directives. Pt is also listed as self-pay and has history of ETOH use. SW in to speak with pt. SW introduced self and role at [facility]. Pt is alert and orientated. Pt confirms she has no insurance, states she is in the middle of getting it. Pt states she has applied for Medicaid before. SW provided pt with financial resources including Medicaid Application, HCAP, Prescription Assistance, [employer] People, and [employer]. SW asked pt about ETOH use. Pt states she drinks two cranberry and vodka daily. Pt states that she plans on not drinking anymore when she returns home. Pt states she never drank until about a year ago when she started drinking. Pt denied needing any ETOH/Counseling resources. SW asked pt about Advanced Directives, pt denied wanting information on Advanced Directives. SW asked pt about her visitors as they appeared young in age. Pt states her visitors are her daughter's. Pt states that one is 19 and lives close and the other one will be turning 17 in the next few days and the 17 year old will be staying with the 19 year old. Pt denied additional needs or concerns at this time. Cindy Acosta ELECTRICAL HELPER, CRM DEVELOPER
[2021-08-23] MEDS: Lactated Ringers 1,000 ML 75 ML IV (16:39)
[2021-08-24] MEDS: 0.9% Saline Lock 10 ML Syringe IV (00:16)
[2021-08-24] MEDS: Phenobarbital 32.4 MG Tablet 64.8 MG PO ×5 (00:16→16:31)
[2021-08-24] MEDS: HYDROmorphone 1 MG/ML Syringe 2 MG IV ×3 (02:02→12:48)
[2021-08-24 02:10] VITALS: BP 131/96; PULSE 115; RESP 16; TEMP 36.6; O2SAT 93
[2021-08-24] MEDS: Lactated Ringers 1,000 ML 75 ML IV ×2 (04:54→18:29)
[2021-08-24 06:16] LABS: Absolute Lymphocyte Count 1.29 X10^3/uL (0.83-4.51); Absolute Neutrophil Count 7.6 X10^3/uL (2.0-7.7); Basophil# 0.04 X10^3/uL; Basophil% 0.4 % (0-1); Eosinophil# 0.28 X10^3/uL; Eosinophils% 2.8 % (0-5); Hematocrit 40.4 % (37-47); Hemoglobin 13.7 g/dL (12.0-15.0); Lymphocyte # 1.29 X10^3/ul (0.83-4.51); Mean Corp Hgb Conc 33.9 g/dL (32-36); Mean Corpuscular Hgb 33.3 pg (27.0-32.0); Mean Corpuscular Volume 98.1 fL (81-99); Mean Platelet Vol. 10.4 fl (6.2-12.0); Monocyte# 0.73 X10^3/uL; Monocyte% 7.4 % (0-10); NRBC Flagged by Analyzer 0 % (0-5); Neutrophil # 7.56 X10^3/uL (2.7-7.7); Neutrophil % 76.1 % (47-70); Platelet Count 228 K/mm3 (150-450); RBC Distribution Width CV 12.7 % (11.6-14.6); RBC Distribution Width SD 45.5 fl (35.1-43.9); Red Blood Count 4.12 M/mm3 (4.2-5.4); White Blood Count 9.9 K/mm3 (4.4-11.0)
[2021-08-24 06:44] LABS: ALB/GLOB Ratio 0.8 RATIO (0.9-2.4); AST(SGOT) 29 U/L (15-37); Alanine Aminotransfer ALT/SGPT 42 U/L (13-56); Albumin, Serum 2.7 g/dL (3.2-5.0); Alkaline Phosphatase 76 U/L (45-117); Anion Gap 8 (5-15); BUN 6 mg/dL (7-18); BUN/Creat Ratio 12.8 RATIO (10-20); Calcium,Total 8.5 mg/dL (8.5-10.1); Chloride 100 mmol/L (98-107); Creatinine, Serum 0.47 mg/dL (0.55-1.02); EST Glomerular Filtration Rate 156 mL/min (>60); Est Glom Filt Rate - Afr Amer 188 mL/min (>60); Estimated Creatinine Clearance 134.65 ml/min; Globulin 3.3 g/dL (2.2-4.2); Glucose 77 mg/dL (74-106); Magnesium 1.9 mg/dL (1.6-2.6); Potassium 3.2 mmol/L (3.5-5.1); Sodium Level 134 mmol/L (136-145)
[2021-08-24 08:48] VITALS: BP 117/79; PULSE 92; RESP 16; TEMP 36.8; O2SAT 92
[2021-08-24] MEDS: Thiamine Hydrochloride 100 MG Tablet PO (09:00)
[2021-08-24] MEDS: Folic Acid 1 MG Tablet PO (09:00)
[2021-08-24] MEDS: amLODIPine 5 MG Tablet PO (09:00)
--- NOTE | 2021-08-24 11:02 | ADDICTION ---
This worker attempted to discuss her ETOH use. She was not interested in discussing her use and reported that her drinking was not an issue and she did not plan on drinking once discharged from [facility].
[2021-08-24 12:49] VITALS: BP 115/73; PULSE 98; RESP 16; TEMP 36.8; O2SAT 93
[2021-08-24 16:27] VITALS: BP 121/87; PULSE 103; RESP 16; TEMP 37.1; O2SAT 92
[2021-08-24] MEDS: Dicyclomine 10 MG Capsule 20 MG PO (16:42)
--- NOTE | 2021-08-24 17:03 | PCM.PN.HOSP ---
Subjective Subjective Patient was seen and examined today, she still complains of generalized mid abdominal pain, she has no complaints at this time of nausea or vomiting. Objective Data Objective Data Vital Signs: Vital Signs Temp Pulse Resp BP Pulse Ox 98.7 F 103 H 16 121/87 H 92 08/24/21 16:27 08/24/21 16:27 08/24/21 16:27 08/24/21 16:27 08/24/21 16:27 Oxygen Delivery Method Room Air Weight: 62.596 kg Body Mass Index (BMI) 23.6 Intake & Output: Intake and Output for Last 24 Hours 08/22/21 08/23/21 08/24/21 23:59 23:59 23:59 Intake Total 2341.25 / 2341.25 1399 / 1399 968.75 / 968.75 Output Total 450 / 450 600 / 600 Balance 2341.25 / 2341.25 949 / 949 368.75 / 368.75 Lab / Micro Data Result Diagrams: 08/24/21 05:45 08/24/21 05:45 Labs: Laboratory Results - last 24 hr 08/24/21 05:45: WBC 9.9, RBC 4.12 L, Hgb 13.7, Hct 40.4, MCV 98.1, MCH 33.3 H, MCHC 33.9, RDW Std Deviation 45.5 H, RDW Coeff of Frankie 12.7, Plt Count 228, MPV 10.4, Immature Gran % (Auto) 0.300, Neut % (Auto) 76.1 H, Lymph % (Auto) 13.0 L, [place] % (Auto) 7.4, Eos % (Auto) 2.8, Baso % (Auto) 0.4, Absolute Neuts (auto) 7.6, Absolute Lymphs (auto) 1.29, Nucleated RBC % 0 08/24/21 05:45: Sodium 134 L, Potassium 3.2 L, Chloride 100, Carbon Dioxide 26.0, Anion Gap 8, BUN 6 L, Creatinine 0.47 L, Estim Creat Clear Calc 134.65, Est GFR (MDRD) Af Amer 188, Est GFR (MDRD) Non-Af 156, BUN/Creatinine Ratio 12.8, Glucose 77, Calcium 8.5, Magnesium 1.9, Total Bilirubin 0.70, AST 29, ALT 42, Alkaline Phosphatase 76, Total Protein 6.0 L, Albumin 2.7 L, Globulin 3.3, Albumin/Globulin Ratio 0.8 L Physical Exam Const alert, oriented x3, no apparent distress and healthy appearing General Appearance: cooperative, well kempt and well developed Orientation / Consciousness: awake, oriented to person, oriented to place and oriented to time HEENT normocephalic and moist oral mucous membranes Eyes PERRL, EOMs intact bilaterally and conjunctivae normal Neck nuchal rigidity, supple, no JVD, thyroid normal and no carotid bruits General: trachea midline Resp normal respiratory effort and clear to auscultation bilaterally Auscultation: Negative for rales, rhonchi or wheezes Cardio regular rate, regular rhythm, no murmurs, no rub and no gallops GI normal to inspection, nondistended, normoactive bowel sounds and non-distended GI Narrative: Patient has mid abdominal tenderness on palpation, there is no rebound abdominal tenderness noted Extremity no clubbing, cyanosis or edema Skin no rashes or lesions noted General Skin Exam: no breakdown Neuro oriented x3, CN's II-XII intact bilaterally, no focal motor deficits and no sensory deficits noted Sensorium / Orientation: awake and alert Speech: speech normal Psych affect normal Assessment & Plan Assessment/Plan (1) Acute pancreatitis: QUALIFIERS: Pancreatitis type: alcohol induced Acute pancreatitis complication: no infection or necrosis Qualified Code(s): K85.20 - Alcohol induced acute pancreatitis without necrosis or infection PLAN: 1. Acute pancreatitis-secondary to alcohol intake-continue IV fluid administration, diet will be advanced today, patient is told addiction group social worker that she is not interested in going through any detox services at this time. #2 hypokalemia-patient will be given potassium supplementation today, labs will be rechecked tomorrow Charges/Coding Visit Charges Inpatient E&M: 36644 Subs Hosp L2
[2021-08-24] MEDS: Potassium Chloride Oral Tablet 20 MEQ PO (17:33)
[2021-08-24] MEDS: HYDROmorphone 1 MG/ML Syringe IV ×2 (18:28→22:38)
[2021-08-24 20:30] VITALS: BP 132/95; PULSE 95; RESP 16; TEMP 36.8; O2SAT 94
[2021-08-24] MEDS: Phenobarbital 32.4 MG Tablet PO (21:33)
[2021-08-25 02:30] VITALS: BP 126/91; PULSE 88; RESP 16; TEMP 36.6; O2SAT 95
[2021-08-25] MEDS: HYDROmorphone 1 MG/ML Syringe IV ×4 (02:30→15:15)
[2021-08-25] MEDS: Phenobarbital 32.4 MG Tablet PO ×2 (05:33→15:12)
[2021-08-25] MEDS: Lactated Ringers 1,000 ML 75 ML IV (06:40)
[2021-08-25 07:12] LABS: ALB/GLOB Ratio 0.8 RATIO (0.9-2.4); AST(SGOT) 29 U/L (15-37); Alanine Aminotransfer ALT/SGPT 38 U/L (13-56); Albumin, Serum 2.8 g/dL (3.2-5.0); Alkaline Phosphatase 84 U/L (45-117); Anion Gap 3 (5-15); BUN 4 mg/dL (7-18); BUN/Creat Ratio 7.9 RATIO (10-20); Calcium,Total 8.4 mg/dL (8.5-10.1); Chloride 100 mmol/L (98-107); EST Glomerular Filtration Rate 142 mL/min (>60); Est Glom Filt Rate - Afr Amer 172 mL/min (>60); Estimated Creatinine Clearance 126.57 ml/min; Globulin 3.5 g/dL (2.2-4.2); Glucose 97 mg/dL (74-106); Potassium 3.1 mmol/L (3.5-5.1); Protein, Total 6.3 g/dL (6.4-8.2); Sodium Level 134 mmol/L (136-145)
[2021-08-25 07:38] VITALS: RESP 16; O2SAT 93
[2021-08-25 07:48] VITALS: BP 128/94; PULSE 82; RESP 16; TEMP 36.6; O2SAT 93
[2021-08-25] MEDS: Thiamine Hydrochloride 100 MG Tablet PO (08:57)
[2021-08-25] MEDS: amLODIPine 5 MG Tablet PO (09:00)
--- NOTE | 2021-08-25 11:53 | PCM.DC ---
Discharge Instructions Diet Discharge Diet: No restrictions Activity Discharge Activity: Return to Normal Activity Weight Bearing Status: Full weight bearing Follow Up Care Test Results: Test results from this visit will be discussed in further detail at your follow-up appointment, if applicable. Discharge Plan Admission Admit Date/Time: 08/22/21 12:35 Primary Reason for Your Visit: pancreatitis Attending Provider: Riley Joseph Primary Care Provider: Care Physician,No Primary Instructions Additional Instructions / Restrictions: Avoid alcohol intake Discharge Orders/Prescriptions Prescriptions: No Action NK RF: 0 Referrals / Follow Up: Care Physician,No Primary [Primary Care Provider] - Disposition Disposition (needs filled in before D/C Order can be placed): Home, Self Care
--- NOTE | 2021-08-25 12:10 | CASEMGMT ---
VIVIEN CM in to pt room to provide local healthcare directory per hospitalist request. Pt states she does not need. Request she keep for reference. She agreed.
[2021-08-25 12:39] VITALS: BP 135/95; PULSE 84; RESP 16; TEMP 36.6; O2SAT 92
--- NOTE | 2021-08-25 14:00 | PCM.DC.SUM ---
Providers Date of Admission: 08/22/21 Date of Discharge: 08/25/21 Primary Care Physician: No Primary Care Phys Reason For Visit: ACUTE PANCREATITIS Diagnosis Discharge Diagnosis (1) Acute pancreatitis: Status: Acute Code(s): K85.90 - Acute pancreatitis without necrosis or infection, unspecified Qualifiers: Acute pancreatitis complication: no infection or necrosis Pancreatitis type: alcohol induced Qualified Code(s): K85.20 - Alcohol induced acute pancreatitis without necrosis or infection Plan: 1. Acute pancreatitis-secondary to alcohol intake #2 hypokalemia Medications at Discharge Home Medications NK 08/22/21 Hospital Course Operations None Procedures None Summary of Care Provided Minutes Spent on Discharge: 32 Hospital Course: This 41-year-old white female was seen in the emergency room at [facility] with chief complaint of mid abdominal pain, work-up in the emergency room revealed the patient to have pancreatitis, this was attributed to alcohol intake. Patient was admitted to [place] [address], given IV fluids and IV analgesics, she was seen in consultation by vp digital marketing social media and crm but refused to make any plans for alcohol cessation with vp digital marketing social media and crm. Patient symptoms improved during her hospital stay, on 08/25/2021, patient was seen and examined: On examination she appeared in good health and spirits, she does not appear to be in any distress. Vital signs as documented. Skin warm and dry and without overt rashes. Neck without JVD, thyroid appears normal, trachea is midline, neck is supple. Lungs clear, normal air movement was noted. Heart exam notable for regular rhythm, normal sounds and absence of murmurs, rubs or gallops. Abdomen unremarkable and without evidence of organomegaly, masses, or abdominal aortic enlargement, bowel sounds are present in all 4 quadrants, no abdominal tenderness was noted. Extremities nonedematous, no cyanosis was noted, no clubbing was noted. Neuro: Cranial nerves II through XII are grossly intact, no focal motor deficits were noted, sensation to light touch and pinprick is intact, motor exam 5/5 throughout. Psych: Patient is alert and oriented x3, she does not appear anxious or depressed, she does not appear agitated. On 08/25/2021, patient was seen and examined and felt to be stable for discharge. Weight / BMI Weight Weight: 62.596 kg Body Mass Index (BMI) 23.6 ABG / Lab / Microbiology Data Result Diagrams: 08/24/21 05:45 08/25/21 05:55 D/C Instructions Discharge Diet: No restrictions Weight Bearing Status: Full weight bearing Meaningful Use Info Meaningful Use Diagnoses (Choose all that apply): None applicable Discharge Plan Admission Admit Date/Time: 08/22/21 12:35 Primary Reason for Your Visit: pancreatitis Attending Provider: Riley Joseph Primary Care Provider: Care Physician,No Primary Instructions Forms: Work / School Excuse Additional Instructions / Restrictions: Avoid alcohol intake Discharge Orders/Prescriptions Prescriptions: No Action NK RF: 0 Referrals / Follow Up: Care Physician,No Primary [Primary Care Provider] - Disposition Disposition (needs filled in before D/C Order can be placed): Home, Self Care Charges/Coding Visit Charges Inpatient E&M: 52936 Disch Hosp
== END 2021-08-25 15:46 | disposition home or self-care (01) | DRG 439 ==
LOC: ED 12:57 → MS3 12:57
PROVIDERS: Physician Assistant; Admitting Provider Internal Medicine; Emergency Provider Emergency Medicine; Visit Provider Internal Medicine
DX: K85.20 Alcohol induced acute pancreatitis without necrosis or infection (principal); F10.139 Alcohol abuse with withdrawal, unspecified; E83.42 Hypomagnesemia; E87.6 Hypokalemia; F17.210 Nicotine dependence, cigarettes, uncomplicated; Y90.9 Presence of alcohol in blood, level not specified
CPT/HCPCS: 36415; 74177; 76705; 80053; 80061; 81001; 83690; 83735; 84703; 85025; 93005; 99283; 99406; J7030; J7120; Q9967; A4216; J2405

== ENCOUNTER 2021-12-13 15:04 | Inpatient (IN) | payer MEDICAID, SELFPAY ==
[2021-12-13 15:04] VITALS: BP 166/108; PULSE 124; RESP 16; TEMP 36.6; O2SAT 99; BMI 24.0
--- NOTE | 2021-12-13 15:17 | EKG12_ITS ---
Test Reason : Blood Pressure : / mmHG Vent. Rate : 112 BPM Atrial Rate : 112 BPM P-R Int : 148 ms QRS Dur : 076 ms QT Int : 354 ms P-R-T Axes : 074 031 075 degrees QTc Int : 483 ms Sinus tachycardia Right atrial enlargement Nonspecific ST abnormality Abnormal ECG Confirmed by DEANA TEMPLETON, ROSA ([id number]), editor trade journal CONNIE REYES ([id number]) on 12/15/2021 10:42:28 AM Referred By: Confirmed By:ROSA LEBLANC MD
--- NOTE | 2021-12-13 15:18 | CT_ITS ---
STUDY: CT ABDOMEN AND PELVIS WITH CONTRAST REASON FOR EXAM: Female, 41 years old. abdominal pain RADIATION DOSAGE (If Supplied By Facility): CTDIvol = ( 8.38 ) mGy, DLP = ( 332.18 ) mGycm TECHNIQUE: Transaxial images were obtained from the dome of the diaphragm to the symphysis pubis without oral contrast. IV 100mL Isovue-300 was administered. Sagittal and coronal images were reconstructed. Individualized dose optimization techniques were used for this CT. COMPARISON: 08/22/2021 FINDINGS: The visualized lung bases are unremarkable. The visualized portions of the heart are within normal limits. Normal liver. Normal gallbladder and extrahepatic biliary system. Normal spleen. There is diffuse enlargement of the pancreas with ivory-pancreatic edema suggesting acute pancreatitis. No loculated fluid collection to suggest pseudocyst or abscess. Normal enhancement of the pancreas without evidence of necrotizing pancreatitis. Normal bilateral adrenal glands. Normal right kidney. Normal left kidney. Normal visualized stomach. Normal small intestine. Normal colon. The appendix is visualized and appears normal. Normal abdominal aorta. Normal inferior vena cava. Normal retroperitoneum. Normal urinary bladder. Normal abdominal wall. Normal osseous structures. CT/Abdomen/Pelvis W IV Cont ONLY IMPRESSION: Acute pancreatitis without pseudocyst, abscess, or necrotizing pancreatitis. Electronically Signed: Andreas Belcher MD at 17:10 EDT ,
--- NOTE | 2021-12-13 15:20 | ED.VIS.GI ---
HPI HPI - GI History of Present Illness Chief Complaint: Abd Pain Narrative Narrative: 41-year-old female presenting for abdominal pain. She states she thinks she has pancreatitis. It hurts in the center of her epigastric region and radiates bilaterally. she states it also hurts in her back bilaterally. She states that she does drink alcohol and has about 3 vodka cranberries daily. She states that she is an everyday drinker. She has had symptoms for the last few days. Patient does state that she will have symptoms of withdrawal she stops drinking. Her last drink was prior to arrival. She states she would need detox to stop drinking. Patient states has not been able to hold down food or fluids and she thinks she is dehydrated. She is not had any fever, chills. Patient states that she is having bowel movements but she typically does not have every day bowel movements. She denies black or bloody stools. Patient does state that at times she feels like she is having left-sided chest pain when she is not drinking. This is intermittent. She denies lightheadedness or shortness of breath. No cough. [facility] Medical History Alcohol abuse Pancreatitis Smoker Tubal ligation evaluation Home Medications NK 08/22/21 [History Last Taken Unknown] Allergy/AdvReac Type Severity Reaction Status Date / Time No Known Allergies Allergy Verified 12/13/21 15:06 Surgical History H/O tubal ligation Social History household members: family and children housing: house Smoking Status: Current every day smoker tobacco type: cigarettes alcohol intake: current alcohol intake frequency: 0-2 drinks per day substance use type: does not use ROS ROS ED Constitutional Constitutional ED: Denies chills or fever(s) ENT ENT ED: Denies rhinorrhea or sore throat Cardiovascular Cardiovascular: Reports chest pain Respiratory/Chest Respiratory/Chest: Denies cough or dyspnea Gastrointestinal Gastrointestinal: Reports abdominal pain, nausea and vomiting; Denies melena Genitourinary Genitourinary ED: Reports other Details: Foul-smelling urine ; Denies dysuria Musculoskeletal Musculoskeletal: Reports back pain; Denies arthralgias Integumentary Denies abscess or Abrasions Neurologic Neurologic: Denies headache(s) or paresthesias Psychiatric Psychiatric: Denies anxiety or depression EXAM Physical Exam Const Vital Signs: 12/13/21 15:04 12/13/21 15:30 12/13/21 17:12 Temperature 97.9 F Temperature Source Temporal Pulse Rate 124 H 99 108 H Respiratory Rate 16 16 28 H Blood Pressure 166/108 H 160/105 H Blood Pressure Mean 127 123 Pulse Ox 99 98 96 Oxygen Delivery Method Room Air Room Air Room Air Positive well nourished General Appearance ED: NAD; Negative for pallor HEENT Reports dry mucous membranes normocephalic Mouth ED: Yes dry mucous membranes Mouth: dry mucous membranes Eyes PERRL and EOMs intact bilaterally General Eye ED: Negative for pale conjunctiva or scleral icterus Neck no lymphadenopathy Resp normal respiratory effort and clear to auscultation bilaterally Auscultation: Negative for rales, rhonchi or wheezes Cardio regular rhythm Rate: tachycardic GI Palpation: tender epigastric, LUQ and RUQ Back/Spine no CVA tenderness Neuro CN's II-XII intact bilaterally, moves all extremities and no sensory deficits noted Sensorium / Orientation: alert, oriented to person, oriented to place and oriented to time Motor Exam: strength 5/5 throughout Psych mental status grossly normal Mood & Affect: Negative for depressed Skin General Skin Exam: Negative for jaundice or pallor MDM MDM MDM Narrative Medical decision making narrative: Patient presenting with epigastric pain and concern for acute pancreatitis. She is never a drinker. She states she might withdrawal if she stops drinking. Patient given IV fluids, Dilaudid, Zofran. Because she still having a little bit of chest pain on the left I did obtain an EKG which on my interpretation is sinus tachycardia with a rate of 112 bpm. No sign of ischemic change or dysrhythmia. Chest x-ray on my interpretation is no acute cardiopulmonary process. The radiologist does agree. High-sensitivity troponin. The radiologist does agree. High-sensitivity troponin is 9. CBC shows a leukocytosis. Hemoglobin stable at 15.3. Platelets 266. Renal function is normal. Potassium found to be low at 2.6. This was repleted through the IV. Magnesium level checked and was normal at 1.8. Patient's AST is 668, ALT 208, alkaline phosphatase 305, total bilirubin 2.8 with a direct bilirubin of 1.44. Lipase elevated at 6195. Patient reevaluated need another dose of Dilaudid IV and was given another milligram. Urinalysis positive for infection and she was given a dose of Rocephin and urine culture was sent. Urine drug screen positive for amphetamines. EtOH 51. I obtained a CT of the abdomen pelvis with IV contrast which shows acute pancreatitis without any red flag abnormalities. Patient doing well on reevaluation. I spoke with the hospitalist for admission. Impression: 1. Acute pancreatitis 2. Chest pain 3. Hypokalemia 4. Transaminitis 5. UTI Lab Data Attestation: I reviewed the patient's lab results. Labs: Laboratory Results - last 24 hr 12/13/21 12/13/21 12/13/21 15:30 15:30 15:30 WBC 8.8 RBC 4.66 Hgb 15.3 H Hct 43.7 MCV 93.8 MCH 32.8 H MCHC 35.0 RDW Std Deviation 44.4 H RDW Coeff of Frankie 13.0 Plt Count 266 MPV 10.0 Immature Gran % (Auto) 0.500 Neut % (Auto) 73.3 H Lymph % (Auto) 15.4 L [place] % (Auto) 8.8 Eos % (Auto) 1.4 Baso % (Auto) 0.6 Absolute Neuts (auto) 6.5 Absolute Lymphs (auto) 1.36 Nucleated RBC % 0 Sodium 135 L Potassium 2.6 L* Chloride 92 L Carbon Dioxide 30.0 Anion Gap 13 BUN 8 Creatinine 0.69 Estim Creat Clear Calc 91.72 Est GFR (MDRD) Af Amer 121 Est GFR (MDRD) Non-Af 100 BUN/Creatinine Ratio 11.7 Glucose 94 Calcium 10.1 Magnesium Total Bilirubin 2.80 H Direct Bilirubin 1.84 H AST 668 H ALT 208 H Alkaline Phosphatase 305 H Troponin I High Sens 9 Total Protein 8.2 Albumin 3.9 Globulin 4.3 H Lipase 6185 H Serum , Qual NEGATIVE Urine Color Urine Clarity Urine pH Ur Specific [place] Urine Protein Urine Glucose (UA) Urine Ketones Urine Occult Blood Urine Nitrite Urine Bilirubin Urine Urobilinogen Ur Leukocyte Esterase Urine RBC Urine WBC Ur Squamous Epith Cells Urine Bacteria Urine Mucus Urine Opiates Screen Urine Methadone Screen Ur Barbiturates Screen Ur Phencyclidine Scrn Ur Amphetamines Screen MDMA (Ecstasy) Screen U Benzodiazepines Scrn Urine Cocaine Screen U Cannabinoids Screen Ur Drug Screen Comment Ethyl Alcohol 12/13/21 12/13/21 12/13/21 15:30 15:30 15:44 WBC RBC Hgb Hct MCV MCH MCHC RDW Std Deviation RDW Coeff of Frankie Plt Count MPV Immature Gran % (Auto) Neut % (Auto) Lymph % (Auto) [place] % (Auto) Eos % (Auto) Baso % (Auto) Absolute Neuts (auto) Absolute Lymphs (auto) Nucleated RBC % Sodium Potassium Chloride Carbon Dioxide Anion Gap BUN Creatinine Estim Creat Clear Calc Est GFR (MDRD) Af Amer Est GFR (MDRD) Non-Af BUN/Creatinine Ratio Glucose Calcium Magnesium 1.8 Total Bilirubin Direct Bilirubin AST ALT Alkaline Phosphatase Troponin I High Sens Total Protein Albumin Globulin Lipase Serum , Qual Urine Color Urine Clarity Urine pH Ur Specific [place] Urine Protein Urine Glucose (UA) Urine Ketones Urine Occult Blood Urine Nitrite Urine Bilirubin Urine Urobilinogen Ur Leukocyte Esterase Urine RBC Urine WBC Ur Squamous Epith Cells Urine Bacteria Urine Mucus Urine Opiates Screen NEGATIVE Urine Methadone Screen NEGATIVE Ur Barbiturates Screen NEGATIVE Ur Phencyclidine Scrn NEGATIVE Ur Amphetamines Screen POSITIVE H MDMA (Ecstasy) Screen NEGATIVE U Benzodiazepines Scrn NEGATIVE Urine Cocaine Screen NEGATIVE U Cannabinoids Screen NEGATIVE Ur Drug Screen Comment Ethyl Alcohol 51.0 12/13/21 15:44 WBC RBC Hgb Hct MCV MCH MCHC RDW Std Deviation RDW Coeff of Frankie Plt Count MPV Immature Gran % (Auto) Neut % (Auto) Lymph % (Auto) [place] % (Auto) Eos % (Auto) Baso % (Auto) Absolute Neuts (auto) Absolute Lymphs (auto) Nucleated RBC % Sodium Potassium Chloride Carbon Dioxide Anion Gap BUN Creatinine Estim Creat Clear Calc Est GFR (MDRD) Af Amer Est GFR (MDRD) Non-Af BUN/Creatinine Ratio Glucose Calcium Magnesium Total Bilirubin Direct Bilirubin AST ALT Alkaline Phosphatase Troponin I High Sens Total Protein Albumin Globulin Lipase Serum , Qual Urine Color Yellow Urine Clarity Cloudy Urine pH 7.0 Ur Specific [place] 1.015 Urine Protein 100 H Urine Glucose (UA) Normal Urine Ketones 50 H Urine Occult Blood 25 H Urine Nitrite Positive H Urine Bilirubin 3 H Urine Urobilinogen 8 H Ur Leukocyte Esterase 25 H Urine RBC 0-5 SEEN Urine WBC 0-5 SEEN Ur Squamous Epith Cells 5-10 SEEN Urine Bacteria 4+ Urine Mucus 0 SEEN Urine Opiates Screen Urine Methadone Screen Ur Barbiturates Screen Ur Phencyclidine Scrn Ur Amphetamines Screen MDMA (Ecstasy) Screen U Benzodiazepines Scrn Urine Cocaine Screen U Cannabinoids Screen Ur Drug Screen Comment Ethyl Alcohol Radiography Diagnostic Testing: Clinical Impression(s) from Imaging Studies Abdomen/Pelvis CT 12/13/21 15:18 IMPRESSION: Acute pancreatitis without pseudocyst, abscess, or necrotizing pancreatitis. Electronically Signed: Andreas Belcher MD at 17:10 EDT Reading Location ID and State: [id number] / [facility] Tel , Service support , Chest X-Ray 12/13/21 16:08 IMPRESSION: Normal x-ray examination of the chest. Electronically Signed: Andreas Belcher MD at 16:47 EDT , Discharge Plan Disposition Disposition: Acute Care Hospital [facility] Discharge Date/Time: 12/13/21 18:52
[2021-12-13 15:30] VITALS: BP 160/105; PULSE 99; RESP 16; O2SAT 98
--- NOTE | 2021-12-13 15:35 | ED.RN ---
urine collected prior to medications. júnior piña rn [id number]
[2021-12-13 15:36] LABS: Absolute Lymphocyte Count 1.36 X10^3/uL (0.83-4.51); Absolute Neutrophil Count 6.5 X10^3/uL (2.0-7.7); Basophil# 0.05 X10^3/uL; Basophil% 0.6 % (0-1); Eosinophil# 0.12 X10^3/uL; Eosinophils% 1.4 % (0-5); Hematocrit 43.7 % (37-47); Hemoglobin 15.3 g/dL (12.0-15.0); Lymphocyte # 1.36 X10^3/ul (0.83-4.51); Lymphocyte % 15.4 % (19-41); Mean Corpuscular Hgb 32.8 pg (27.0-32.0); Mean Corpuscular Volume 93.8 fL (81-99); Monocyte# 0.78 X10^3/uL; Monocyte% 8.8 % (0-10); NRBC Flagged by Analyzer 0 % (0-5); Neutrophil # 6.49 X10^3/uL (2.7-7.7); Neutrophil % 73.3 % (47-70); Platelet Count 266 K/mm3 (150-450); RBC Distribution Width SD 44.4 fl (35.1-43.9); Red Blood Count 4.66 M/mm3 (4.2-5.4); White Blood Count 8.8 K/mm3 (4.4-11.0)
[2021-12-13] MEDS: Ondansetron 4 MG/2 ML Vial IV (15:39)
[2021-12-13] MEDS: HYDROmorphone 1 MG/ML Syringe IV ×3 (15:40→20:42)
[2021-12-13] MEDS: 0.9% Normal Saline 1,000 ML 1000 ML IV (15:40)
[2021-12-13 15:47] LABS: Internal QC Validated? YES +Cl - CLEAR BKGD; Pregnancy, Serum, hCG Quali. NEGATIVE Negative
[2021-12-13 15:53] LABS: Mucous, Urine 0 SEEN /hpf (<or=2+)
[2021-12-13 15:55] LABS: Color, Urine Yellow (Yellow); Glucose, Dipstick Normal (Normal); Ketone-Dipstick 50 mg/dl (Negative); Leukocyte Esterase-Dipstick 25 /ul (Negative); Nitrite-Dipstick Positive (Negative); Occult Blood-Urine 25 /ul (Negative); Protein-Dipstick 100 mg/dl (Negative); Specific Gravity, Urine 1.015 (1.002-1.030); Urine Clarity Cloudy (Clear); Urine Urobilinogen 8 mg/dl (Normal)
[2021-12-13 16:04] LABS: Urine Bilirubin Dipstick 3 mg/dL (Negative)
[2021-12-13 16:06] LABS: Bacteria 4+ /hpf (None Seen); Red Blood Cells-Urine 0-5 SEEN /hpf (0-5); Squamous Epithelial Cells - UA 5-10 SEEN /hpf (5-10); White Blood Cells 0-5 SEEN /hpf (0-5)
--- NOTE | 2021-12-13 16:08 | RAD_ITS ---
STUDY: X-RAY CHEST REASON FOR EXAM: Female, 41 years old. chest pain TECHNIQUE: Single AP portable view of the chest. COMPARISON: None. FINDINGS: The lungs are clear and expanded. There is no demonstrated pleural abnormality. Normal size heart. Normal mediastinum and amor. Normal visualized pulmonary arteries. Normal visualized aortic arch and descending thoracic aorta. Normal visualized thoracic spine. Normal visualized ribs, clavicles, and shoulders. There is no demonstrated abnormality of the visualized soft tissue structures of the upper abdomen. RAD/Chest 1 View (Portable) IMPRESSION: Normal x-ray examination of the chest. Electronically Signed: Andreas Belcher MD at 16:47 EDT ,
[2021-12-13 16:15] LABS: AST(SGOT) 668 U/L (15-37); Alanine Aminotransfer ALT/SGPT 208 U/L (13-56); Albumin, Serum 3.9 g/dL (3.2-5.0); Alkaline Phosphatase 305 U/L (45-117); Anion Gap 13 (5-15); BUN 8 mg/dL (7-18); BUN/Creat Ratio 11.7 RATIO (10-20); Bilirubin, Direct 1.84 mg/dL (0.00-0.30); Calcium,Total 10.1 mg/dL (8.5-10.1); Chloride 92 mmol/L (98-107); Creatinine, Serum 0.69 mg/dL (0.55-1.02); EST Glomerular Filtration Rate 100 mL/min (>60); Est Glom Filt Rate - Afr Amer 121 mL/min (>60); Estimated Creatinine Clearance 91.72 ml/min; Globulin 4.3 g/dL (2.2-4.2); Glucose 94 mg/dL (74-106); Lipase 6185 U/L (73-393); Potassium 2.6 mmol/L (3.5-5.1); Protein, Total 8.2 g/dL (6.4-8.2); Sodium Level 135 mmol/L (136-145); Troponin-I HS 9 pg/mL (3.0-54.0)
[2021-12-13 16:22] LABS: Amphetamine Urine VISTA POSITIVE (<1000 ng/mL); Barbiturate Urine VISTA NEGATIVE (< 200 ng/mL); Benzodiazepine Urine VISTA NEGATIVE (< 200 ng/mL); Cocaine Urine VISTA NEGATIVE (< 300 ng/mL); Ecstacy Urine VISTA NEGATIVE (< 500 ng/mL); Methadone Urine VISTA NEGATIVE (< 300 ng/mL); PCP Urine VISTA NEGATIVE (< 25 ng/mL); THC Urine VISTA NEGATIVE (< 50 ng/mL); Vista UDS pH Range 6
--- NOTE | 2021-12-13 16:37 | EKG12_ITS ---
Test Reason : cp Blood Pressure : / mmHG Vent. Rate : 095 BPM Atrial Rate : 095 BPM P-R Int : 150 ms QRS Dur : 074 ms QT Int : 388 ms P-R-T Axes : 066 000 053 degrees QTc Int : 487 ms Normal sinus rhythm Cannot rule out Anterior infarct , age undetermined Abnormal ECG Confirmed by DEANA TEMPLETON, ROSA ([id number]), department editor CONNIE REYES ([id number]) on 12/15/2021 10:42:44 AM Referred By: Wiliam Confirmed By:ROSA LEBLANC MD
[2021-12-13 16:50] LABS: Magnesium 1.8 mg/dL (1.6-2.6)
[2021-12-13 17:12] VITALS: PULSE 108; RESP 28; O2SAT 96
[2021-12-13] MEDS: Ceftriaxone 1 GM/50 ML BAG IV (17:21)
[2021-12-13] MEDS: Potassium Chloride 10mEq/100mL 10 MEQ/100 ML IV.SOLN. 100 MEQ IV BOLUS ×4 (17:59→21:27)
[2021-12-13 18:30] VITALS: BP 147/97; PULSE 111; RESP 19; RESP 20; TEMP 36.7; O2SAT 98; O2SAT 99
[2021-12-13 19:07] VITALS: BMI 22.8
[2021-12-13 19:23] VITALS: BP 168/106; PULSE 90; RESP 16; TEMP 37.1; O2SAT 93
--- NOTE | 2021-12-13 20:33 | PCM.HP.STD ---
HPI - General General Date of Admission: 12/13/21 Date of Service: 12/13/21 Chief Complaint: abdominal pain HPI Narrative ERWIN GROVES, is a 41 F who presents to the ER at [place] with complaints of abdominal pain which is centrally located and diffuse x3 to 4 days. Patient is an active drinker of alcohol because she was hospitalized in August of this year for alcoholic pancreatitis. Patient states that she was sober from August until October and then started drinking again in October due to stressors. The last time she was in the hospital in October she refused any intervention by detox services here at the hospital. Labs obtained in the emergency room showed elevated lipase at 6185, patient's AST, ALT, and bilirubin were all elevated, patient's potassium was low at 2.6, urinalysis performed showed positive nitrite, +4 bacteria, 0-5 WBCs, 0-5 RBCs. Patient CBC was unremarkable. Patient was afebrile. Patient was given IV fluids, IV analgesics, and given a dose of IV Rocephin in the emergency room. She will be admitted for acute recurrent alcoholic pancreatitis with acute alcoholic hepatitis. I am unsure if the patient actually has a urinary tract infection, she had 5-10 squamous cells in her urine, I have elected to place her on oral antibiotics for UTI starting tomorrow morning until cultures return. At this time patient has consented to see the addiction social sciences lecturer for detox treatment as an outpatient. [facility] Medical History (Updated 12/13/21 @ 21:[address] Riley Joseph DO) Alcohol abuse Pancreatitis Smoker Tubal ligation evaluation Home Medications NK 08/22/21 [History Last Taken Unknown] Allergy/AdvReac Type Severity Reaction Status Date / Time No Known Allergies Allergy Verified 12/13/21 15:06 Surgical History H/O tubal ligation Social History household members: family and children housing: house Smoking Status: Current every day smoker tobacco type: cigarettes alcohol intake: current alcohol intake frequency: 0-2 drinks per day substance use type: does not use ROS Constitutional Constitutional: Denies chills, fatigue, fever(s) or malaise Eyes Eyes: Denies blurry vision or change in vision ENT HEENT: Denies abnormal hearing, dysphagia, ear pain or headache(s) Cardiovascular Cardiovascular: Denies chest pain, claudication, dyspnea on exertion, lightheadedness or palpitations Respiratory/Chest Respiratory/Chest: Denies cough, dyspnea, hemoptysis or productive cough Gastrointestinal Gastrointestinal: Reports abdominal pain, nausea and vomiting; Denies coffee ground emesis, diarrhea, dyspepsia, hematemesis or hematochezia Genitourinary Genitourinary: Denies burning urination, difficulty urinating, dysuria or hematuria Musculoskeletal Musculoskeletal: Denies joint pain, joint stiffness or joint swelling Neurologic Neurologic: Denies abnormal gait, abnormal speech, confusion or disequilibrium Psychiatric Psychiatric: Denies homicidal ideation or suicidal ideation Endocrine Endocrinology: Denies change in body appearance, cold intolerance or excessive sweating Hematologic/Lymphatic Hematologic/Lymphatic: Denies anemia, easy bleeding or easy bruising Allergic/Immunologic Allergic/Immunologic: Denies rhinitis, hives or eczemia Vital Signs Vital Signs Vital Signs: 12/13/21 15:04 12/13/21 15:30 12/13/21 17:12 Temperature 97.9 F Temperature Source Temporal Pulse Rate 124 H 99 108 H Respiratory Rate 16 16 28 H Blood Pressure 166/108 H 160/105 H Blood Pressure Mean 127 123 Blood Pressure Source Blood Pressure Position Blood Pressure Location Pulse Ox 99 98 96 Oxygen Delivery Method Room Air Room Air Room Air 12/13/21 18:30 12/13/21 18:30 12/13/21 19:23 Temperature 98.0 F 98.8 F Temperature Source Temporal Oral Pulse Rate 111 H 111 H 90 Respiratory Rate 20 H 19 H 16 Blood Pressure 147/97 H 147/97 H 168/106 H Blood Pressure Mean 113 113 126 Blood Pressure Source Monitor Blood Pressure Position Sitting Blood Pressure Location Right Arm Pulse Ox 98 99 93 Oxygen Delivery Method Room Air Room Air Room Air Weight Weight: 60.4 kg Body Mass Index (BMI) 22.8 Physical Exam Const alert and oriented x3 Constitutional Narrative: Patient appears in moderate distress due to abdominal pain General Appearance: cooperative, well kempt and well developed Orientation / Consciousness: awake, oriented to person, oriented to place and oriented to time HEENT normocephalic, head/scalp atraumatic, hearing grossly normal bilaterally and moist oral mucous membranes Eyes PERRL, EOMs intact bilaterally and conjunctivae normal Neck nuchal rigidity, supple, no JVD, thyroid normal and no carotid bruits General: trachea midline Resp normal respiratory effort, no retractions, no use of accessory muscles and clear to auscultation bilaterally Auscultation: Negative for rales, rhonchi or wheezes Cardio regular rate, regular rhythm, no murmurs, no rub and no gallops GI GI Narrative: Patient has diffuse abdominal tenderness over the mid abdominal area to palpation, no rebound abdominal tenderness was noted Auscultation: hypoactive bowel sounds Extremity no clubbing, cyanosis or edema Skin no rashes or lesions noted General Skin Exam: no breakdown Neuro oriented x3, CN's II-XII intact bilaterally, no focal motor deficits and no sensory deficits noted Sensorium / Orientation: awake and alert Speech: speech normal Psych Psych Narrative: Patient is tearful, she is appropriate Results Lab / Micro Data Result Diagrams: 12/13/21 15:30 12/13/21 15:30 Labs: Laboratory Results - last 24 hr 12/13/21 15:30: WBC 8.8, RBC 4.66, Hgb 15.3 H, Hct 43.7, MCV 93.8, MCH 32.8 H, MCHC 35.0, RDW Std Deviation 44.4 H, RDW Coeff of Frankie 13.0, Plt Count 266, MPV 10.0, Immature Gran % (Auto) 0.500, Neut % (Auto) 73.3 H, Lymph % (Auto) 15.4 L, [place] % (Auto) 8.8, Eos % (Auto) 1.4, Baso % (Auto) 0.6, Absolute Neuts (auto) 6.5, Absolute Lymphs (auto) 1.36, Nucleated RBC % 0 12/13/21 15:30: Sodium 135 L, Potassium 2.6 L*, Chloride 92 L, Carbon Dioxide 30.0, Anion Gap 13, BUN 8, Creatinine 0.69, Estim Creat Clear Calc 91.72, Est GFR (MDRD) Af Amer 121, Est GFR (MDRD) Non-Af 100, BUN/Creatinine Ratio 11.7, Glucose 94, Calcium 10.1, Total Bilirubin 2.80 H, Direct Bilirubin 1.84 H, AST 668 H, ALT 208 H, Alkaline Phosphatase 305 H, Troponin I High Sens 9, Total Protein 8.2, Albumin 3.9, Globulin 4.3 H, Lipase 6185 H 07/11/22 15:30: Serum , Qual NEGATIVE 12/13/21 15:30: Ethyl Alcohol 51.0 12/13/21 15:30: Magnesium 1.8 12/13/21 15:44: Urine Opiates Screen NEGATIVE, Urine Methadone Screen NEGATIVE, Ur Barbiturates Screen NEGATIVE, Ur Phencyclidine Scrn NEGATIVE, Ur Amphetamines Screen POSITIVE H, MDMA (Ecstasy) Screen NEGATIVE, U Benzodiazepines Scrn NEGATIVE, Urine Cocaine Screen NEGATIVE, U Cannabinoids Screen NEGATIVE, Ur Drug Screen Comment 12/13/21 15:44: Urine Color Yellow, Urine Clarity Cloudy, Urine pH 7.0, Ur Specific [place] 1.015, Urine Protein 100 H, Urine Glucose (UA) Normal, Urine Ketones 50 H, Urine Occult Blood 25 H, Urine Nitrite Positive H, Urine Bilirubin 3 H, Urine Urobilinogen 8 H, Ur Leukocyte Esterase 25 H, Urine RBC 0-5 SEEN, Urine WBC 0-5 SEEN, Ur Squamous Epith Cells 5-10 SEEN, Urine Bacteria 4+, Urine Mucus 0 SEEN Radiology Impression Abdomen/Pelvis CT 12/13/21 15:18 IMPRESSION: Acute pancreatitis without pseudocyst, abscess, or necrotizing pancreatitis. Electronically Signed: Andreas Belcher MD at 17:10 EDT , Chest X-Ray 12/13/21 16:08 IMPRESSION: Normal x-ray examination of the chest. Electronically Signed: Andreas Belcher MD at 16:47 EDT , Assessment & Plan Assessment/Plan (1) Pancreatitis: PLAN: Plan 1. Acute recurrent pancreatitis due to alcoholism-patient will be admitted to [facility] 3, she will be given IV fluids, patient will be placed on a detox protocol with phenobarbital, she will be given IV analgesics, labs will be monitored. #2 chronic alcoholism-patient will be seen by addiction social services designee for follow-up care as an outpatient for detox, patient is on phenobarb taper at this time #3 acute alcoholic hepatitis-liver enzymes will be monitored, supportive care will be given #4 bacteriuria-I am unsure if the patient actually has cystitis at this time, I will place her on an oral antibiotic starting tomorrow, await urine culture #5 hypokalemia-patient will be given IV potassium supplementation, she will be monitored on telemetry #6 positive tox screen for amphetamines-I did not discuss this with the patient, I will discuss it further with her tomorrow. Charges/Coding Visit Charges Inpatient E&M: 87672 Init Hosp L3
[2021-12-13] MEDS: traZODone 100 MG Tablet PO (21:00)
[2021-12-13] MEDS: Phenobarbital 32.4 MG Tablet 64.8 MG PO (21:00)
[2021-12-13] MEDS: Dicyclomine 10 MG Capsule 20 MG PO (22:41)
[2021-12-13] MEDS: KCL 20MEQ in 0.9% NS 20 MEQ/1,000 ML IV.SOLN. 175 MEQ IV (22:41)
[2021-12-13] MEDS: Gabapentin 300 MG Capsule PO (22:41)
[2021-12-14] VITALS (8 sets, daily range): BP systolic 150–168; BP diastolic 97–112; PULSE 73–100; RESP 14–18; TEMP 36.6–37.2; O2SAT 94–97
[2021-12-14] MEDS: Phenobarbital 32.4 MG Tablet 64.8 MG PO ×5 (04:34→20:14)
[2021-12-14] MEDS: KCL 20MEQ in 0.9% NS 20 MEQ/1,000 ML IV.SOLN. 175 MEQ IV ×2 (04:36→10:01)
[2021-12-14 04:39] LABS: Absolute Lymphocyte Count 1.28 X10^3/uL (0.83-4.51); Absolute Neutrophil Count 3.7 X10^3/uL (2.0-7.7); Basophil# 0.03 X10^3/uL; Basophil% 0.5 % (0-1); Eosinophil# 0.18 X10^3/uL; Eosinophils% 3.1 % (0-5); Hematocrit 38.6 % (37-47); Hemoglobin 13.5 g/dL (12.0-15.0); Lymphocyte # 1.28 X10^3/ul (0.83-4.51); Lymphocyte % 22.2 % (19-41); Mean Corpuscular Hgb 33.6 pg (27.0-32.0); Mean Platelet Vol. 10.6 fl (6.2-12.0); Monocyte# 0.58 X10^3/uL; Monocyte% 10.1 % (0-10); NRBC Flagged by Analyzer 0 % (0-5); Neutrophil # 3.68 X10^3/uL (2.7-7.7); Neutrophil % 63.9 % (47-70); Platelet Count 206 K/mm3 (150-450); RBC Distribution Width CV 13.2 % (11.6-14.6); RBC Distribution Width SD 47.2 fl (35.1-43.9); Red Blood Count 4.02 M/mm3 (4.2-5.4); White Blood Count 5.8 K/mm3 (4.4-11.0)
[2021-12-14] MEDS: HYDROmorphone 1 MG/ML Syringe IV ×4 (04:41→20:16)
[2021-12-14 05:21] LABS: AST(SGOT) 200 U/L (15-37); Alanine Aminotransfer ALT/SGPT 133 U/L (13-56); Albumin, Serum 2.9 g/dL (3.2-5.0); Alkaline Phosphatase 200 U/L (45-117); Anion Gap 8 (5-15); BUN 5 mg/dL (7-18); BUN/Creat Ratio 10.7 RATIO (10-20); Bilirubin, Direct 0.26 mg/dL (0.00-0.30); Calcium,Total 7.9 mg/dL (8.5-10.1); Chloride 104 mmol/L (98-107); Creatinine, Serum 0.47 mg/dL (0.55-1.02); EST Glomerular Filtration Rate 155 mL/min (>60); Est Glom Filt Rate - Afr Amer 187 mL/min (>60); Estimated Creatinine Clearance 134.65 ml/min; Globulin 3.2 g/dL (2.2-4.2); Glucose 92 mg/dL (74-106); Magnesium 1.6 mg/dL (1.6-2.6); Potassium 3.4 mmol/L (3.5-5.1); Protein, Total 6.1 g/dL (6.4-8.2); Sodium Level 140 mmol/L (136-145)
[2021-12-14] MEDS: Potassium Chloride Oral Tablet 20 MEQ PO (07:45)
[2021-12-14] MEDS: Thiamine Hydrochloride 100 MG Tablet PO (07:45)
[2021-12-14] MEDS: Folic Acid 1 MG Tablet PO (07:45)
[2021-12-14] MEDS: Ensure Clear 120 ML Liquid PO (10:00)
[2021-12-14] MEDS: 0.9% Saline Lock 10 ML Syringe IV ×3 (10:01→20:16)
--- NOTE | 2021-12-14 10:45 | CASEMGMT ---
RN CM Face to Face with patient for initial transition planning/care coordination assessment. RN CM introduced self and role at [facility]. Patient lying in bed, alert and oriented. Patient willing to participate in assessment and is able to answer all questions appropriately. Care providers, pharmacy, and demographics verified. Patient wishes to discharge home with follow-up with addiction services. Patient states she has no further needs or concerns at this time. CM to follow for discharge planning needs that may arise. PCP: No PCP, list provided to patient Specialists: none Preferred Pharmacy: [facility] Insurance: [employer] Prescription Benefit: yes Living Will/HPOA: none LNOK: mother, daughter 17yo Living Arrangements: Patient lives with mother and daughter in a single story home with 5 steps and railing to enter the home. Patient states she is independent at home. Transportation: self, mother, daughter DME/HHC: Patient denies DME or previous HHC Patient states she smoke 1.5 PPD of cigarettes and drinks half a bottle of vodka daily. Patient denied other drug use. Patient agreeable to speak with addiction counselor. Disposition Plan: Patient to discharge with addition services follow-up. Cindy HANSON, RN, CM
--- NOTE | 2021-12-14 15:09 | ADDICTION ---
TW met with pt on request from [facility]. Pt is here for alcoholism and wanted to meet with addictions therapist. Both TW and peer recovery manager met with her and Pt is unwilling to set up f/u at this time. She stated she wants to do it on her own and will reach out to make an appt in the future if it is necessary.
--- NOTE | 2021-12-14 17:57 | PCM.PN.HOSP ---
Subjective Subjective Patient was seen and examined today, she requested a regular diet if possible, she has less abdominal pain and I think it safe to increase her diet. Patient does not appear to be very drowsy on the phenobarbital. Patient's IV fluids were stopped today because she is able to intake oral fluids without a problem. Objective Data Objective Data Vital Signs: Vital Signs Temp Pulse Resp BP Pulse Ox O2 Del Method 99.0 F 87 14 161/102 H 97 Room Air 12/14/21 14:05 12/14/21 16:56 12/14/21 14:05 12/14/21 14:05 12/14/21 14:05 12/14/21 14:05 Oxygen Delivery Method Room Air Weight: 60.4 kg Body Mass Index (BMI) 22.8 Intake & Output: Intake and Output for Last 24 Hours 12/12/21 12/13/21 12/14/21 23:59 23:59 23:59 Intake Total 1450 / 1450 3611.67 / 3611.67 Balance 1450 / 1450 3611.67 / 3611.67 Medical Nutrition Assessment Dietitian: Malnutrition Criteria Met Start: 12/14/21 10:25 Freq: Status: Active Protocol: Document 12/14/21 10:25 RMA (Rec: 12/14/21 10:25 RMA [id number]) Nutrition Malnutrition Evidence of Malnutrition Exists Yes Malnutrition (severe): Social/Behavioral/ Environmental Evidenced By Suboptimal Energy Intake ( Severe),Weight Loss (Severe) Intake Problem Inadequate Oral Intake Etiology related to altered GI function /inflammation Signs/Symptoms as evidenced by lipase 6185 and clear liquid diet Status Active Problem Clinical Problem Chronic Disease or Condition Related Malnutrition Etiology Severe protein-calorie malnutrition in the context of social circumstance related to alcohol abuse and inadequate oral intake Signs/Symptoms as evidenced by 5% wt loss x past 1 month, currently on clear liquid diet and oral intake meeting less than 50% estimated nutrition needs x 1 month Status Active Problem Recommendation Dietitian Recommendations/Changes Recommend advance diet as medically able to Fat- Restricted; continue ensure clear w/ medpass as tolerated. Additional ONS as needed once diet advanced from clear liquids. Lab / Micro Data Result Diagrams: 12/14/21 03:59 12/14/21 03:59 Labs: Laboratory Results - last 24 hr 12/14/21 03:59: Sodium 140, Potassium 3.4 L, Chloride 104, Carbon Dioxide 28.0, Anion Gap 8, BUN 5 L, Creatinine 0.47 L, Estim Creat Clear Calc 134.65, Est GFR (MDRD) Af Amer 187, Est GFR (MDRD) Non-Af 155, BUN/Creatinine Ratio 10.7, Glucose 92, Calcium 7.9 L, Magnesium 1.6, Total Bilirubin 0.80, Direct Bilirubin 0.26, AST 200 H, ALT 133 H, Alkaline Phosphatase 200 H, Total Protein 6.1 L, Albumin 2.9 L, Globulin 3.2 12/14/21 03:59: WBC 5.8, RBC 4.02 L, Hgb 13.5, Hct 38.6, MCV 96.0, MCH 33.6 H, MCHC 35.0, RDW Std Deviation 47.2 H, RDW Coeff of Frankie 13.2, Plt Count 206, MPV 10.6, Immature Gran % (Auto) 0.200, Neut % (Auto) 63.9, Lymph % (Auto) 22.2, [place] % (Auto) 10.1 H, Eos % (Auto) 3.1, Baso % (Auto) 0.5, Absolute Neuts (auto) 3.7, Absolute Lymphs (auto) 1.28, Nucleated RBC % 0 Physical Exam Narrative alert and oriented x3 Constitutional Narrative: Patient appears in moderate distress due to abdominal pain General Appearance: cooperative, well kempt and well developed Orientation / Consciousness: awake, oriented to person, oriented to place and oriented to time HEENT normocephalic, head/scalp atraumatic, hearing grossly normal bilaterally and moist oral mucous membranes Eyes PERRL, EOMs intact bilaterally and conjunctivae normal Neck nuchal rigidity, supple, no JVD, thyroid normal and no carotid bruits General: trachea midline Resp normal respiratory effort, no retractions, no use of accessory muscles and clear to auscultation bilaterally Auscultation: Negative for rales, rhonchi or wheezes Cardio regular rate, regular rhythm, no murmurs, no rub and no gallops GI GI Narrative: Patient has diffuse abdominal tenderness over the mid abdominal area to palpation, no rebound abdominal tenderness was noted Auscultation: hypoactive bowel sounds Extremity no clubbing, cyanosis or edema Skin no rashes or lesions noted General Skin Exam: no breakdown Neuro oriented x3, CN's II-XII intact bilaterally, no focal motor deficits and no sensory deficits noted Sensorium / Orientation: awake and alert Speech: speech normal Psych Psych Narrative: Patient is appropriate, she does not appear depressed or anxious Const alert and oriented x3 Constitutional Narrative: Patient appears in moderate distress due to abdominal pain General Appearance: cooperative, well kempt and well developed Orientation / Consciousness: awake, oriented to person, oriented to place and oriented to time HEENT normocephalic, head/scalp atraumatic, hearing grossly normal bilaterally and moist oral mucous membranes Eyes PERRL, EOMs intact bilaterally and conjunctivae normal Neck nuchal rigidity, supple, no JVD, thyroid normal and no carotid bruits General: trachea midline Resp normal respiratory effort, no retractions, no use of accessory muscles and clear to auscultation bilaterally Auscultation: Negative for rales, rhonchi or wheezes Cardio regular rate, regular rhythm, no murmurs, no rub and no gallops GI GI Narrative: Patient has diffuse abdominal tenderness over the mid abdominal area to palpation, no rebound abdominal tenderness was noted Auscultation: hypoactive bowel sounds Extremity no clubbing, cyanosis or edema Skin no rashes or lesions noted General Skin Exam: no breakdown Neuro oriented x3, CN's II-XII intact bilaterally, no focal motor deficits and no sensory deficits noted Sensorium / Orientation: awake and alert Speech: speech normal Psych Psych Narrative: Patient is tearful, she is appropriate Assessment & Plan Assessment/Plan (1) Pancreatitis: PLAN: Plan 1. Acute recurrent pancreatitis due to alcoholism-patient's abdomen appears less tender today, I have encouraged her to intake more fluids, her IV will be discontinued at this time #2 chronic alcoholism-patient will be seen by addiction social work coordinator for follow-up care as an outpatient for detox, patient is on phenobarb taper at this time #3 acute alcoholic hepatitis-liver enzymes will be monitored as necessary, patient's liver enzymes are improved today #4 bacteriuria-I am unsure if the patient actually has cystitis at this time, patient is on oral Keflex, cultures are pending #5 hypokalemia-patient was given oral potassium today, I will recheck her CMP tomorrow #6 positive tox screen for amphetamines-I did not discuss this with the patient, I will discuss it further with her, patient has denied use of illicit drugs to nursing. Charges/Coding Visit Charges Inpatient E&M: 64374 Subs Hosp L2
[2021-12-15] VITALS (8 sets, daily range): BP systolic 134–164; BP diastolic 93–101; PULSE 74–96; RESP 16; TEMP 36.2–37.6; O2SAT 92–97
[2021-12-15] MEDS: Phenobarbital 32.4 MG Tablet 64.8 MG PO ×6 (00:45→19:56)
[2021-12-15] MEDS: HYDROmorphone 1 MG/ML Syringe IV ×5 (00:50→22:57)
[2021-12-15] MEDS: 0.9% Saline Lock 10 ML Syringe IV ×2 (00:51→22:57)
[2021-12-15 05:47] LABS: ALB/GLOB Ratio 0.9 RATIO (0.9-2.4); AST(SGOT) 543 U/L (15-37); Alanine Aminotransfer ALT/SGPT 322 U/L (13-56); Albumin, Serum 3.1 g/dL (3.2-5.0); Alkaline Phosphatase 279 U/L (45-117); Anion Gap 6 (5-15); BUN 3 mg/dL (7-18); BUN/Creat Ratio 5.7 RATIO (10-20); Calcium,Total 8.9 mg/dL (8.5-10.1); Chloride 97 mmol/L (98-107); Creatinine, Serum 0.53 mg/dL (0.55-1.02); EST Glomerular Filtration Rate 134 mL/min (>60); Est Glom Filt Rate - Afr Amer 163 mL/min (>60); Estimated Creatinine Clearance 119.41 ml/min; Globulin 3.6 g/dL (2.2-4.2); Glucose 117 mg/dL (74-106); Potassium 3.1 mmol/L (3.5-5.1); Protein, Total 6.7 g/dL (6.4-8.2); Sodium Level 135 mmol/L (136-145)
[2021-12-15] MEDS: Thiamine Hydrochloride 100 MG Tablet PO (09:15)
[2021-12-15] MEDS: Folic Acid 1 MG Tablet PO (09:15)
[2021-12-15] MEDS: Potassium Chloride Oral Tablet 20 MEQ 40 MEQ PO (09:15)
--- NOTE | 2021-12-15 18:39 | PCM.PN.HOSP ---
Subjective Subjective Patient was seen and examined today, she continues to have abdominal pain particularly after eating but wants to continue to eat. I have elected to keep her on a diet for now I have asked her to increase her oral fluid intake. Patient told addiction outreach and education social worker that she does not want follow-up for a drinking problem. She told them that she was able to take care of it herself according to nursing. Objective Data Objective Data Vital Signs: Vital Signs Temp Pulse Resp BP Pulse Ox O2 Del Method 99.7 F H 86 16 137/93 H 96 Room Air 12/15/21 14:01 12/15/21 14:01 12/15/21 14:01 12/15/21 14:01 12/15/21 14:01 12/15/21 14:01 Oxygen Delivery Method Room Air Weight: 60.4 kg Body Mass Index (BMI) 22.8 Intake & Output: Intake and Output for Last 24 Hours 12/13/21 12/14/21 12/15/21 23:59 23:59 23:59 Intake Total 1450 / 1450 3611.67 / 3611.67 100 / 100 Balance 1450 / 1450 3611.67 / 3611.67 100 / 100 Medical Nutrition Assessment Dietitian: Malnutrition Criteria Met Start: 12/14/21 10:25 Freq: Status: Active Protocol: Document 12/14/21 10:25 RMA (Rec: 12/14/21 10:25 RMA [id number]) Nutrition Malnutrition Evidence of Malnutrition Exists Yes Malnutrition (severe): Social/Behavioral/ Environmental Evidenced By Suboptimal Energy Intake ( Severe),Weight Loss (Severe) Intake Problem Inadequate Oral Intake Etiology related to altered GI function /inflammation Signs/Symptoms as evidenced by lipase 6185 and clear liquid diet Status Active Problem Clinical Problem Chronic Disease or Condition Related Malnutrition Etiology Severe protein-calorie malnutrition in the context of social circumstance related to alcohol abuse and inadequate oral intake Signs/Symptoms as evidenced by 5% wt loss x past 1 month, currently on clear liquid diet and oral intake meeting less than 50% estimated nutrition needs x 1 month Status Active Problem Recommendation Dietitian Recommendations/Changes Recommend advance diet as medically able to Fat- Restricted; continue ensure clear w/ medpass as tolerated. Additional ONS as needed once diet advanced from clear liquids. Lab / Micro Data Result Diagrams: 12/14/21 03:59 12/15/21 04:17 Labs: Laboratory Results - last 24 hr 12/15/21 04:17: Sodium 135 L, Potassium 3.1 L, Chloride 97 L, Carbon Dioxide 32.0, Anion Gap 6, BUN 3 L, Creatinine 0.53 L, Estim Creat Clear Calc 119.41, Est GFR (MDRD) Af Amer 163, Est GFR (MDRD) Non-Af 134, BUN/Creatinine Ratio 5.7 L, Glucose 117 H, Calcium 8.9, Total Bilirubin 0.80, AST 543 H, ALT 322 H, Alkaline Phosphatase 279 H, Total Protein 6.7, Albumin 3.1 L, Globulin 3.6, Albumin/Globulin Ratio 0.9 Physical Exam Narrative General Appearance: cooperative, well kempt and well developed Orientation / Consciousness: awake, oriented to person, oriented to place and oriented to time HEENT normocephalic, head/scalp atraumatic, hearing grossly normal bilaterally and moist oral mucous membranes Eyes PERRL, EOMs intact bilaterally and conjunctivae normal Neck nuchal rigidity, supple, no JVD, thyroid normal and no carotid bruits General: trachea midline Resp normal respiratory effort, no retractions, no use of accessory muscles and clear to auscultation bilaterally Auscultation: Negative for rales, rhonchi or wheezes Cardio regular rate, regular rhythm, no murmurs, no rub and no gallops GI GI Narrative: Patient has diffuse abdominal tenderness over the mid abdominal area to palpation, no rebound abdominal tenderness was noted Auscultation: hypoactive bowel sounds Extremity no clubbing, cyanosis or edema Skin no rashes or lesions noted General Skin Exam: no breakdown Neuro oriented x3, CN's II-XII intact bilaterally, no focal motor deficits and no sensory deficits noted Sensorium / Orientation: awake and alert Speech: speech normal Psych Psych Narrative: Patient is appropriate, she does not appear depressed or anxious, her affect is flat Const alert and oriented x3 Constitutional Narrative: Patient appears in moderate distress due to abdominal pain General Appearance: cooperative, well kempt and well developed Orientation / Consciousness: awake, oriented to person, oriented to place and oriented to time HEENT normocephalic, head/scalp atraumatic, hearing grossly normal bilaterally and moist oral mucous membranes Eyes PERRL, EOMs intact bilaterally and conjunctivae normal Neck nuchal rigidity, supple, no JVD, thyroid normal and no carotid bruits General: trachea midline Resp normal respiratory effort, no retractions, no use of accessory muscles and clear to auscultation bilaterally Auscultation: Negative for rales, rhonchi or wheezes Cardio regular rate, regular rhythm, no murmurs, no rub and no gallops GI GI Narrative: Patient has diffuse abdominal tenderness over the mid abdominal area to palpation, no rebound abdominal tenderness was noted Auscultation: hypoactive bowel sounds Extremity no clubbing, cyanosis or edema Skin no rashes or lesions noted General Skin Exam: no breakdown Neuro oriented x3, CN's II-XII intact bilaterally, no focal motor deficits and no sensory deficits noted Sensorium / Orientation: awake and alert Speech: speech normal Psych Psych Narrative: Patient is tearful, she is appropriate Assessment & Plan Assessment/Plan (1) Pancreatitis: PLAN: Plan 1. Acute recurrent pancreatitis due to alcoholism-patient's abdomen appears less tender today, I have encouraged her to intake more fluids #2 chronic alcoholism-patient is decided she wants no outpatient follow-up for her alcoholism, I think this is a bad idea, patient has failed before without appropriate outpatient support. #3 acute alcoholic hepatitis-liver enzymes will be monitored as necessary, patient is getting another CMP performed tomorrow #4 bacteriuria-I am unsure if the patient actually has cystitis at this time, patient is on oral Keflex, apparently patient did not have a urine culture performed in the ER. #5 hypokalemia-patient was given oral potassium today, I will recheck her CMP tomorrow #6 positive tox screen for amphetamines-I did not discuss this with the patient Charges/Coding Visit Charges Inpatient E&M: 24674 Subs Hosp L2
[2021-12-16] VITALS: BP 142/107; PULSE 77; RESP 16; TEMP 36.4; O2SAT 97
[2021-12-16] MEDS: Phenobarbital 32.4 MG Tablet 64.8 MG PO ×2 (00:57→04:21)
[2021-12-16 04:14] VITALS: BP 138/119; PULSE 91; RESP 16; TEMP 36.6; O2SAT 94
[2021-12-16 05:20] LABS: ALB/GLOB Ratio 0.8 RATIO (0.9-2.4); AST(SGOT) 701 U/L (15-37); Alanine Aminotransfer ALT/SGPT 484 U/L (13-56); Alkaline Phosphatase 300 U/L (45-117); Anion Gap 4 (5-15); BUN 6 mg/dL (7-18); BUN/Creat Ratio 9.8 RATIO (10-20); Calcium,Total 9.2 mg/dL (8.5-10.1); Chloride 99 mmol/L (98-107); Creatinine, Serum 0.61 mg/dL (0.55-1.02); EST Glomerular Filtration Rate 114 mL/min (>60); Est Glom Filt Rate - Afr Amer 138 mL/min (>60); Estimated Creatinine Clearance 103.75 ml/min; Globulin 3.7 g/dL (2.2-4.2); Glucose 106 mg/dL (74-106); Potassium 3.5 mmol/L (3.5-5.1); Protein, Total 6.7 g/dL (6.4-8.2); Sodium Level 135 mmol/L (136-145)
[2021-12-16] MEDS: HYDROmorphone 1 MG/ML Syringe IV (06:40)
[2021-12-16] MEDS: 0.9% Saline Lock 10 ML Syringe IV (06:40)
--- NOTE | 2021-12-16 08:08 | DCINST_ITS ---
Discharge Instructions Diet Discharge Diet: No restrictions and - (No alcohol intake) Activity Discharge Activity: Return to Normal Activity Weight Bearing Status: Full weight bearing Follow Up Care Test Results: Test results from this visit will be discussed in further detail at your follow- up appointment, if applicable. Discharge Plan Admission Admit Date/Time: 12/13/21 18:04 Primary Reason for Your Visit: acute pancreatitis, alcoholic hepatitis Attending Provider: Riley Joseph Primary Care Provider: Care Physician,No Primary Consulting Providers: Gertrudis Eckert Instructions Additional Instructions / Restrictions: Do not drink, recommend enrolling in an outpatient detox program Discharge Orders/Prescriptions Prescriptions: New phenobarbital 32.4 mg tablet 32.4 mg PO TID Qty: 14 0RF Rx Instructions: 1- 3 times a day for 2 days, then 1 twice a day for 2 days, then 1 daily until gone Do not drink alcohol while taking this medication oxycodone 5 mg tablet 5 mg PO Q6H PRN (Reason: pain) 5 Days Qty: 30 0RF Rx Instructions: 5-10 mg every six hours as needed for pain Referrals / Follow Up: Care Physician,No Primary [Primary Care Provider] - Disposition Disposition (needs filled in before D/C Order can be placed): Home, Self Care
[2021-12-16 08:21] VITALS: BP 138/97; PULSE 87; RESP 16; TEMP 36.6; O2SAT 100
[2021-12-16] MEDS: Folic Acid 1 MG Tablet PO (08:40)
[2021-12-16] MEDS: Thiamine Hydrochloride 100 MG Tablet PO (08:40)
--- NOTE | 2021-12-16 09:24 | PCM.DC.SUM ---
Providers Date of Admission: 12/13/21 Date of Discharge: 12/16/21 Primary Care Physician: Becca Primary Care Phys Consultations 12/14/21 07:14 Consult: Addiction Medicine Routine Consulting Provider: Gertrudis Eckert Reason for Consult: detox services EMERGENT Consult: No MD Notified: Yes Date Notified: 12/14/21 Time Notified: 12:12 Method of Notification: Answering Service Reason For Visit: PANCREATITIS, HYPOKALEMIA Diagnosis Discharge Diagnosis (1) Pancreatitis: Status: Acute Code(s): K85.90 - Acute pancreatitis without necrosis or infection, unspecified Plan 1. Acute recurrent pancreatitis due to alcoholism-patient's abdomen appears less tender today, I have encouraged her to intake more fluids #2 chronic alcoholism-patient is decided she wants no outpatient follow-up for her alcoholism, I think this is a bad idea, patient has failed before without appropriate outpatient support. #3 acute alcoholic hepatitis-liver enzymes will be monitored as necessary, patient is getting another CMP performed tomorrow #4 bacteriuria without cystitis #5 hypokalemia #6 positive tox screen for amphetamines-etiology unclear Medications at Discharge Home Medications oxycodone 5 mg tablet 5 mg PO Q6H PRN pain 5 days #30 tabs 12/16/21 phenobarbital 32.4 mg tablet 32.4 mg PO TID #14 tabs 12/16/21 Hospital Course Operations None Procedures None Summary of Care Provided Minutes Spent on Discharge: 32 Hospital Course: This 41-year-old white female was seen in the emergency room at [facility] with a chief complaint of abdominal pain, she has a history of alcohol abuse and started drinking approximately 2 months prior. She had been in the hospital here several months ago with alcoholic pancreatitis. Lab work done in the emergency room revealed her liver enzymes to be elevated and her lipase to be elevated and her abdomen and pelvis CT showed acute pancreatitis without pseudocyst, abscess, or necrotizing pancreatitis. Patient was given IV pain medications and IV fluids, she was admitted to [facility], I had the discussions with her concerning her alcoholism, initially patient did not want to talk to addiction social media intern regarding outpatient detox services but then consented to do this, however, she finally decided that she was not going to follow-up with any outpatient detox services. Patient requested a diet the following day and she continued to receive IV pain medication and fluids, fluids were ultimately stopped and the patient's symptoms improved. On 12/16/2021, patient was seen and examined: On examination she appeared in good health and spirits, she does not appear to be in any distress. Vital signs as documented. Skin warm and dry and without overt rashes. Neck without JVD, thyroid appears normal, trachea is midline, neck is supple. Lungs clear, normal air movement was noted. Heart exam notable for regular rhythm, normal sounds and absence of murmurs, rubs or gallops. Abdomen unremarkable and without evidence of organomegaly, masses, or abdominal aortic enlargement, bowel sounds are present in all 4 quadrants, no abdominal tenderness was noted. Extremities nonedematous, no cyanosis was noted, no clubbing was noted. Neuro: Cranial nerves II through XII are grossly intact, no focal motor deficits were noted, sensation to light touch and pinprick is intact, motor exam 5/5 throughout. Psych: Patient is alert and oriented x3, she does not appear anxious or depressed, she does not appear agitated. Patient was discharged in stable condition on 12/16/2021. Medical Records Data Medical Nutrition Assessment Dietitian: Malnutrition Criteria Met Start: 12/14/21 10:25 Freq: Status: Active Protocol: Document 12/14/21 10:25 RMA (Rec: 12/14/21 10:25 RMA [id number]) Nutrition Malnutrition Evidence of Malnutrition Exists Yes Malnutrition (severe): Social/Behavioral/ Environmental Evidenced By Suboptimal Energy Intake ( Severe),Weight Loss (Severe) Intake Problem Inadequate Oral Intake Etiology related to altered GI function /inflammation Signs/Symptoms as evidenced by lipase 6185 and clear liquid diet Status Active Problem Clinical Problem Chronic Disease or Condition Related Malnutrition Etiology Severe protein-calorie malnutrition in the context of social circumstance related to alcohol abuse and inadequate oral intake Signs/Symptoms as evidenced by 5% wt loss x past 1 month, currently on clear liquid diet and oral intake meeting less than 50% estimated nutrition needs x 1 month Status Active Problem Recommendation Dietitian Recommendations/Changes Recommend advance diet as medically able to Fat- Restricted; continue ensure clear w/ medpass as tolerated. Additional ONS as needed once diet advanced from clear liquids. Weight / BMI Weight Weight: 60.4 kg Body Mass Index (BMI) 22.8 ABG / Lab / Microbiology Data Result Diagrams: 12/14/21 03:59 12/16/21 04:20 Laboratory: Laboratory Results - last 24 hr 12/16/21 04:20: Sodium 135 L, Potassium 3.5, Chloride 99, Carbon Dioxide 32.0, Anion Gap 4 L, BUN 6 L, Creatinine 0.61, Estim Creat Clear Calc 103.75, Est GFR (MDRD) Af Amer 138, Est GFR (MDRD) Non-Af 114, BUN/Creatinine Ratio 9.8 L, Glucose 106, Calcium 9.2, Total Bilirubin 0.60, AST 701 H, ALT 484 H, Alkaline Phosphatase 300 H, Total Protein 6.7, Albumin 3.0 L, Globulin 3.7, Albumin/Globulin Ratio 0.8 L D/C Instructions Discharge Diet: No restrictions and - (No alcohol intake) Weight Bearing Status: Full weight bearing Meaningful Use Info Meaningful Use Diagnoses (Choose all that apply): None applicable Discharge Plan Admission Admit Date/Time: 12/13/21 18:04 Primary Reason for Your Visit: acute pancreatitis, alcoholic hepatitis Attending Provider: Riley Joseph Primary Care Provider: Care Physician,No Primary Consulting Providers: Gertrudis Eckert Instructions Additional Instructions / Restrictions: Do not drink, recommend enrolling in an outpatient detox program Discharge Orders/Prescriptions Prescriptions: New phenobarbital 32.4 mg tablet 32.4 mg PO TID Qty: 14 0RF Rx Instructions: 1- 3 times a day for 2 days, then 1 twice a day for 2 days, then 1 daily until gone Do not drink alcohol while taking this medication oxycodone 5 mg tablet 5 mg PO Q6H PRN (Reason: pain) 5 Days Qty: 30 0RF Rx Instructions: 5-10 mg every six hours as needed for pain Referrals / Follow Up: Care Physician,No Primary [Primary Care Provider] - Disposition Disposition (needs filled in before D/C Order can be placed): Home, Self Care Charges/Coding Visit Charges Inpatient E&M: 67385 Disch Hosp
--- NOTE | 2021-12-16 10:00 | NURSING ---
reviewed discharge instructions voiced understanding
== END 2021-12-16 10:05 | disposition home or self-care (01) | DRG 282 ==
LOC: ED 17:01 → MS3 18:43
PROVIDERS: Admitting Provider Internal Medicine; Emergency Provider Student in an Organized Health Care Education/Training Program; Visit Provider Internal Medicine
DX: K85.20 Alcohol induced acute pancreatitis without necrosis or infection (principal); E43 Unspecified severe protein-calorie malnutrition; K70.10 Alcoholic hepatitis without ascites; E87.6 Hypokalemia; F17.210 Nicotine dependence, cigarettes, uncomplicated; F10.10 Alcohol abuse, uncomplicated; R74.01 Elevation of levels of liver transaminase levels; N39.0 Urinary tract infection, site not specified; Y90.2 Blood alcohol level of 40-59 mg/100 ml; Z68.22 Body mass index [BMI] 22.0-22.9, adult
CPT/HCPCS: 36415; 71045; 74177; 80048; 80053; 80076; 80307; 81001; 82077; 83690; 83735; 84484; 84703; 85025; 93005; 97802; 99284; 99406; Q9967; A4216; J2405

== ENCOUNTER 2022-01-04 21:23 | Emergency (ER) | payer MEDICAID, SELFPAY ==
[2022-01-04 21:25] VITALS: BP 157/98; PULSE 102; RESP 16; TEMP 36.9; O2SAT 98; BMI 23.7
[2022-01-04] MEDS: 0.9% Normal Saline 1,000 ML 1000 ML IV (22:04)
[2022-01-04 22:05] VITALS: BP 142/94; PULSE 91
[2022-01-04 22:08] LABS: Absolute Lymphocyte Count 2.33 X10^3/uL (0.83-4.51); Absolute Neutrophil Count 8.7 X10^3/uL (2.0-7.7); Basophil# 0.07 X10^3/uL; Basophil% 0.6 % (0-1); Eosinophil# 0.27 X10^3/uL; Eosinophils% 2.2 % (0-5); Hematocrit 42.4 % (37-47); Hemoglobin 14.8 g/dL (12.0-15.0); Lymphocyte # 2.33 X10^3/ul (0.83-4.51); Mean Corp Hgb Conc 34.9 g/dL (32-36); Mean Corpuscular Volume 94.4 fL (81-99); Mean Platelet Vol. 10.2 fl (6.2-12.0); Monocyte# 0.87 X10^3/uL; Monocyte% 7.1 % (0-10); NRBC Flagged by Analyzer 0 % (0-5); Neutrophil # 8.66 X10^3/uL (2.7-7.7); Neutrophil % 70.6 % (47-70); Platelet Count 442 K/mm3 (150-450); RBC Distribution Width CV 12.8 % (11.6-14.6); RBC Distribution Width SD 44.1 fl (35.1-43.9); Red Blood Count 4.49 M/mm3 (4.2-5.4); White Blood Count 12.3 K/mm3 (4.4-11.0)
--- NOTE | 2022-01-04 22:17 | EDS_ITS ---
HPI HPI - GI History of Present Illness Chief Complaint: Abd Pain Narrative Narrative: 41-year-old female presenting with epigastric burning. She describes dyspepsia. She states that she does have GERD and took some Tums but her symptoms not go away. She recently admitted for acute pancreatitis but states the pain was different and is more across her epigastrium from left to right. This is more like heartburn. She is not nauseous or vomiting. This has been going on for couple of days. She states she usually drinks coffee in the morning. She has had tacos today. Yesterday she had cabbage rolls. These are not outside the spectrum of her normal diet. She does admit to drinking alcohol yesterday and states she had a couple of beers. She states she did go through the detox program. She is not sure why she drank again. [facility] Medical History Alcohol abuse Pancreatitis Smoker Tubal ligation evaluation Home Medications oxycodone 5 mg tablet 5 mg PO Q6H PRN pain 5 days #30 tabs 12/16/21 [Rx Last Taken Unknown] phenobarbital 32.4 mg tablet 32.4 mg PO TID #14 tabs 12/16/21 [Rx Last Taken Unknown] omeprazole 40 mg capsule,delayed release 40 mg PO DAILY #30 caps 01/04/22 [Rx Last Taken Unknown] ondansetron 4 mg disintegrating tablet 4 mg PO Q8H PRN nausea and vomiting #10 tabs 01/04/22 [Rx Last Taken Unknown] sucralfate 100 mg/mL oral suspension (Carafate) 10 ml PO BID PRN epigastric pain #400 mL 01/04/22 [Rx Last Taken Unknown] Allergy/AdvReac Type Severity Reaction Status Date / Time No Known Allergies Allergy Verified 12/13/21 15:06 Surgical History H/O tubal ligation Social History household members: family and children housing: house Smoking Status: Current every day smoker tobacco type: cigarettes alcohol intake: current alcohol intake frequency: 0-2 drinks per day substance use type: does not use ROS ROS ED Constitutional Constitutional ED: Denies chills or fever(s) ENT ENT ED: Denies rhinorrhea or sore throat Cardiovascular Cardiovascular: Denies chest pain or palpitations Respiratory/Chest Respiratory/Chest: Denies cough or dyspnea Gastrointestinal Gastrointestinal: Reports abdominal pain and other Details: Dyspepsia ; Denies nausea or vomiting Genitourinary Genitourinary ED: Denies dysuria or hematuria Musculoskeletal Musculoskeletal: Denies arthralgias or back pain Integumentary Denies abscess Neurologic Neurologic: Denies headache(s) or paresthesias Psychiatric Psychiatric: Denies anxiety or depression EXAM Physical Exam Const Vital Signs: 01/04/22 21:25 01/04/22 22:05 Temperature 98.4 F Temperature Source Oral Pulse Rate 102 H 91 Respiratory Rate 16 Blood Pressure 157/98 H 142/94 H Blood Pressure Mean 117 110 Pulse Ox 98 Positive well nourished General Appearance ED: NAD; Negative for pallor HEENT Reports moist mucous membranes normocephalic and atraumatic Eyes PERRL and EOMs intact bilaterally Resp normal respiratory effort and clear to auscultation bilaterally Cardio regular rate and regular rhythm GI non-tender and non-distended Palpation: soft Extremity General Extremety ED: Negative for edema or tenderness General Extremity: Negative for edema Neuro CN's II-XII intact bilaterally Sensorium / Orientation: alert Psych mental status grossly normal and thought process normal Skin General Skin Exam: Negative for jaundice or pallor MDM MDM MDM Narrative Medical decision making narrative: 41-year-old female with history of pancreatitis presenting with dyspepsia and epigastric burning. She states it feels like acid reflux. Does not feel like her pancreatitis. I obtained blood work and her CBC shows a slight leukocytosis of 12.3. Hemoglobin chronic are stable. Platelets are normal at 442. CMP shows improvement of her AST, ALT, alkaline phosphatase. Bilirubin is normal. Lipase negative. EtOH is 66 however. Potassium slightly low at 3.3. Patient was given GI cocktail which did give her some relief. She is not all the way down to 0 on the pain scale. I counseled her that she would need to be on a PPI and I would give her Carafate for home. She is also given a prescription for Zofran. I counseled on trigger foods which she should avoid. I also told her to discontinue drinking even if a small amounts. I did family life counselor her that if she does not have pancreatitis she can may cause damage to her stomach lining and this is I believe what her current issue is. Is possible she could have gastritis, peptic ulcer, GERD. She does not have a history of GERD. Patient given follow-up with Dr. Salamanca. Impression: 1. Epigastric pain 2. Dyspepsia 3. Gastritis 4. History of pancreatitis 5. History of EtOH abuse 6. Elevated LFTs Lab Data Attestation: I reviewed the patient's lab results. Labs: Laboratory Results - last 24 hr 01/04/22 01/04/22 01/04/22 22:00 22:00 22:00 WBC 12.3 H RBC 4.49 Hgb 14.8 Hct 42.4 MCV 94.4 MCH 33.0 H MCHC 34.9 RDW Std Deviation 44.1 H RDW Coeff of Frankie 12.8 Plt Count 442 MPV 10.2 Immature Gran % (Auto) 0.500 Neut % (Auto) 70.6 H Lymph % (Auto) 19.0 [place] % (Auto) 7.1 Eos % (Auto) 2.2 Baso % (Auto) 0.6 Absolute Neuts (auto) 8.7 H Absolute Lymphs (auto) 2.33 Nucleated RBC % 0 Sodium 142 Potassium 3.3 L Chloride 107 Carbon Dioxide 25.0 Anion Gap 10 BUN 13 Creatinine 0.67 Estim Creat Clear Calc 94.46 Est GFR (MDRD) Af Amer 123 Est GFR (MDRD) Non-Af 102 BUN/Creatinine Ratio 19.3 Glucose 108 H Calcium 9.7 Total Bilirubin 0.40 Direct Bilirubin 0.20 AST 223 H ALT 99 H Alkaline Phosphatase 188 H Total Protein 7.3 Albumin 3.5 Globulin 3.8 Lipase 334 Ethyl Alcohol 66.0 Discharge Plan Triage Chief Complaint: Abd Pain ED Provider: Charles Johansen Dx/Rx/DC Orders Instructions: ED PEPTIC ULCER vs GASTRITIS Prescriptions: New ondansetron 4 mg tablet,disintegrating 4 mg PO Q8H PRN (Reason: nausea and vomiting) Qty: 10 0RF sucralfate [Carafate] 100 mg/mL suspension 10 ml PO BID PRN (Reason: epigastric pain) Qty: 400 0RF omeprazole 40 mg capsule,delayed release(DR/EC) 40 mg PO DAILY Qty: 30 0RF No Action phenobarbital 32.4 mg tablet 32.4 mg PO TID Qty: 14 0RF Rx Instructions: 1- 3 times a day for 2 days, then 1 twice a day for 2 days, then 1 daily until gone Do not drink alcohol while taking this medication oxycodone 5 mg tablet 5 mg PO Q6H PRN (Reason: pain) 5 Days Qty: 30 0RF Rx Instructions: 5-10 mg every six hours as needed for pain Primary Care Provider: Care Physician,No Primary Referrals: Friend,Chandler, DO [Med Staff - Active Staff] - As soon as possible Care Physician,No Primary [Primary Care Provider] - Disposition Disposition: Home, Self Care
[2022-01-04 22:25] LABS: AST(SGOT) 223 U/L (15-37); Alanine Aminotransfer ALT/SGPT 99 U/L (13-56); Albumin, Serum 3.5 g/dL (3.2-5.0); Alkaline Phosphatase 188 U/L (45-117); Anion Gap 10 (5-15); BUN 13 mg/dL (7-18); BUN/Creat Ratio 19.3 RATIO (10-20); Calcium,Total 9.7 mg/dL (8.5-10.1); Chloride 107 mmol/L (98-107); Creatinine, Serum 0.67 mg/dL (0.55-1.02); EST Glomerular Filtration Rate 102 mL/min (>60); Est Glom Filt Rate - Afr Amer 123 mL/min (>60); Estimated Creatinine Clearance 94.46 ml/min; Globulin 3.8 g/dL (2.2-4.2); Glucose 108 mg/dL (74-106); Lipase 334 U/L (73-393); Potassium 3.3 mmol/L (3.5-5.1); Protein, Total 7.3 g/dL (6.4-8.2); Sodium Level 142 mmol/L (136-145)
[2022-01-04] MEDS: Mag Hydrox/Al Hydrox/Simeth 30 ML UDC PO (22:33)
[2022-01-04] MEDS: Famotidine 200 MG/20 ML MDV 20 MG in 0.9% Normal Saline (Pres. free 8 ML 300 MG IV (22:51)
[2022-01-04 23:44] VITALS: BP 163/104; PULSE 98; RESP 17; O2SAT 99
[2022-01-04] MEDS: Pantoprazole Sodium 40 MG Tablet PO (23:59)
== END 2022-01-05 00:04 | disposition home or self-care (01) ==
PROVIDERS: Emergency Provider Student in an Organized Health Care Education/Training Program; Visit Provider Student in an Organized Health Care Education/Training Program
DX: K29.70 Gastritis, unspecified, without bleeding (principal); F17.210 Nicotine dependence, cigarettes, uncomplicated; R79.89 Other specified abnormal findings of blood chemistry; K21.9 Gastro-esophageal reflux disease without esophagitis; R10.13 Epigastric pain
CPT/HCPCS: 80048; 80076; 82077; 83690; 85025; 96361; 96365; 99285; J7030; J3490

== ENCOUNTER 2022-02-19 11:23 | Inpatient (IN) | payer MEDICAID, SELFPAY ==
[2022-02-19] VITALS (11 sets, daily range): BP systolic 150–185; BP diastolic 90–117; PULSE 79–98; RESP 16–18; TEMP 36.6–36.7; O2SAT 95–100; BMI 25.6; BMI 23.8
--- NOTE | 2022-02-19 11:34 | EKG12_ITS ---
Test Reason : ABDOMINAL PAIN Blood Pressure : / mmHG Vent. Rate : 085 BPM Atrial Rate : 085 BPM P-R Int : 142 ms QRS Dur : 078 ms QT Int : 398 ms P-R-T Axes : 066 014 061 degrees QTc Int : 473 ms Normal sinus rhythm Possible Left atrial enlargement Nonspecific ST abnormality Abnormal ECG Confirmed by HANNAH TEMPLETON, STEFANI ([id number]), multimedia editor CONNIE REYES ([id number]) on 02/21/2022 10:42:09 AM Referred By: Confirmed By:STEFANI YOUNG MD
--- NOTE | 2022-02-19 11:36 | EX.ED.DYSGE1 ---
HPI History of Present Illness Chief Complaint: Abd Pain Informant: patient Onset/Context/Timing Onset: Today Current Severity: Moderate Maximum Severity: Moderate Narrative Narrative: Patient present secondary to abdominal pain. She is a history of pancreatitis and states this feels similar. She does admit to having a few drinks yesterday. She has Carafate and omeprazole with her that she states she took this morning. She has not been taking it on a regular basis. PFSH PFS Medical History Alcohol abuse Pancreatitis Smoker Home Medications omeprazole 40 mg capsule,delayed release 40 mg PO DAILY #30 caps 01/04/22 [Rx Last Taken Unknown] ondansetron 4 mg disintegrating tablet 4 mg PO Q8H PRN nausea and vomiting #10 tabs 01/04/22 [Rx Last Taken Unknown] sucralfate 100 mg/mL oral suspension (Carafate) 10 ml PO BID 02/19/22 [History Last Taken Unknown] Allergy/AdvReac Type Severity Reaction Status Date / Time No Known Allergies Allergy Verified 12/13/21 15:06 Surgical History H/O tubal ligation Social History household members: family and children housing: house Smoking Status: Current every day smoker tobacco type: cigarettes alcohol intake: current alcohol intake frequency: 0-2 drinks per day substance use type: does not use ROS ROS ED Constitutional Constitutional ED: Denies chills or fever(s) Eyes Eyes: Denies change in vision or discharge from eye(s) ENT ENT ED: Denies discharge from eye(s), rhinorrhea or sore throat Cardiovascular Cardiovascular: Denies chest pain or palpitations Respiratory/Chest Respiratory/Chest: Denies cough or dyspnea Gastrointestinal Gastrointestinal: Reports abdominal pain and nausea; Denies diarrhea or vomiting Genitourinary Genitourinary ED: Denies dysuria Musculoskeletal Musculoskeletal: Denies back pain or extremity pain Integumentary Denies Abrasions or rash Neurologic Neurologic: Denies headache(s) or weakness Psychiatric Psychiatric: Denies anxiety or depression Allergic/Immunologic Allergic/Immunologic ED: Denies lip swelling or urticaria EXAM Physical Exam Const Vital Signs: 02/19/22 11:24 02/19/22 12:07 02/19/22 11:25 Temperature 97.8 F 97.8 F Temperature Source Temporal Temporal Pulse Rate 98 88 88 Respiratory Rate 18 16 16 Blood Pressure 168/110 H 179/107 H 179/107 H Blood Pressure Mean 129 131 131 Pulse Ox 98 95 95 Oxygen Delivery Method Room Air Room Air Room Air 02/19/22 13:10 Temperature Temperature Source Pulse Rate 88 Respiratory Rate 16 Blood Pressure 178/109 H Blood Pressure Mean 132 Pulse Ox 98 Oxygen Delivery Method Room Air Positive well nourished and well developed General Appearance ED: well developed HEENT Reports normocephalic and head/scalp atraumatic Eyes PERRL and EOMs intact bilaterally Neck supple Chest Wall inspection of chest normal and palpation of chest normal Resp normal respiratory effort and clear to auscultation bilaterally Cardio regular rate and regular rhythm GI GI Narrative: Diffuse abdominal tenderness, worse in the epigastrium.. Hypoactive bowel sounds. Palpation: soft Extremity normal to inspection Neuro oriented x3 and no sensory deficits noted Sensorium / Orientation: alert Motor Exam: strength 5/5 throughout Psych mental status grossly normal Skin no rashes or lesions noted MDM MDM MDM Narrative Medical decision making narrative: EKG, lab work obtained. Morphine, Zofran, IV fluids given. Lab Data Attestation: I reviewed the patient's lab results. Labs: Laboratory Results - last 24 hr 02/19/22 02/19/22 02/19/22 11:53 11:53 11:53 WBC 9.1 RBC 4.54 Hgb 15.1 H Hct 44.1 MCV 97.1 MCH 33.3 H MCHC 34.2 RDW Std Deviation 46.4 H RDW Coeff of Frankie 13.1 Plt Count 297 MPV 9.7 Immature Gran % (Auto) 0.600 Neut % (Auto) 72.9 H Lymph % (Auto) 17.3 L [place] % (Auto) 7.3 Eos % (Auto) 1.3 Baso % (Auto) 0.6 Absolute Neuts (auto) 6.6 Absolute Lymphs (auto) 1.57 Nucleated RBC % 0 Sodium 138 Potassium 3.1 L Chloride 100 Carbon Dioxide 26.0 Anion Gap 12 BUN 7 Creatinine 0.60 Estim Creat Clear Calc 105.47 Est GFR (MDRD) Af Amer 142 Est GFR (MDRD) Non-Af 117 BUN/Creatinine Ratio 11.7 Glucose 104 Calcium 9.2 Total Bilirubin 0.70 Direct Bilirubin 0.23 AST 90 H ALT 95 H Alkaline Phosphatase 97 Total Protein 7.8 Albumin 3.9 Globulin 3.9 Lipase 3660 H Serum , Qual NEGATIVE EKG Initial EKG: Attestation: I personally reviewed and interpreted this EKG as follows: Interpretation: Sinus Rhythm (Sinus 85 with no acute ischemia.) Treatment and Re-Evaluation Narrative: CBC reveals hemoglobin concentrated at 15.1. Chemistry studies significant for potassium low at 3.1. LFTs unremarkable. Lipase is 3660. test negative. Patient did require a dose of Dilaudid for pain control. She is continued on IV fluids. With evidence of pancreatitis she will be admitted for further treatment and evaluation. She did take omeprazole and Carafate this morning. Discharge Plan Triage Chief Complaint: Abd Pain ED Provider: Renea Velazquez Dx/Rx/DC Orders Clinical Impression: Acute pancreatitis, Acute hypokalemia Prescriptions: No Action ondansetron 4 mg tablet,disintegrating 4 mg PO Q8H PRN (Reason: nausea and vomiting) Qty: 10 0RF omeprazole 40 mg capsule,delayed release(DR/EC) 40 mg PO DAILY Qty: 30 0RF sucralfate [Carafate] 100 mg/mL suspension 10 ml PO BID Primary Care Provider: Care Physician,No Primary Referrals: Care Physician,No Primary [Primary Care Provider] - Disposition Disposition: [facility]
[2022-02-19] MEDS: 0.9% Normal Saline 1,000 ML 1000 ML IV (11:59)
[2022-02-19] MEDS: Ondansetron 4 MG/2 ML Vial IV ×2 (12:00→14:34)
[2022-02-19] MEDS: Morphine 4 MG/ML Syringe IV ×5 (12:00→21:58)
[2022-02-19 12:06] LABS: Absolute Lymphocyte Count 1.57 X10^3/uL (0.83-4.51); Absolute Neutrophil Count 6.6 X10^3/uL (2.0-7.7); Basophil# 0.05 X10^3/uL; Basophil% 0.6 % (0-1); Eosinophil# 0.12 X10^3/uL; Eosinophils% 1.3 % (0-5); Hematocrit 44.1 % (37-47); Hemoglobin 15.1 g/dL (12.0-15.0); Lymphocyte # 1.57 X10^3/ul (0.83-4.51); Lymphocyte % 17.3 % (19-41); Mean Corp Hgb Conc 34.2 g/dL (32-36); Mean Corpuscular Hgb 33.3 pg (27.0-32.0); Mean Corpuscular Volume 97.1 fL (81-99); Mean Platelet Vol. 9.7 fl (6.2-12.0); Monocyte# 0.66 X10^3/uL; Monocyte% 7.3 % (0-10); NRBC Flagged by Analyzer 0 % (0-5); Neutrophil # 6.62 X10^3/uL (2.7-7.7); Neutrophil % 72.9 % (47-70); Platelet Count 297 K/mm3 (150-450); RBC Distribution Width CV 13.1 % (11.6-14.6); RBC Distribution Width SD 46.4 fl (35.1-43.9); Red Blood Count 4.54 M/mm3 (4.2-5.4); White Blood Count 9.1 K/mm3 (4.4-11.0)
[2022-02-19 12:16] LABS: Internal QC Validated? YES +Cl - CLEAR BKGD; Pregnancy, Serum, hCG Quali. NEGATIVE Negative
[2022-02-19] MEDS: HYDROmorphone 1 MG/ML Syringe IV (12:33)
[2022-02-19 12:37] LABS: AST(SGOT) 90 U/L (15-37); Alanine Aminotransfer ALT/SGPT 95 U/L (13-56); Albumin, Serum 3.9 g/dL (3.2-5.0); Alkaline Phosphatase 97 U/L (45-117); Anion Gap 12 (5-15); BUN 7 mg/dL (7-18); BUN/Creat Ratio 11.7 RATIO (10-20); Bilirubin, Direct 0.23 mg/dL (0.00-0.30); Calcium,Total 9.2 mg/dL (8.5-10.1); Chloride 100 mmol/L (98-107); EST Glomerular Filtration Rate 117 mL/min (>60); Est Glom Filt Rate - Afr Amer 142 mL/min (>60); Estimated Creatinine Clearance 105.47 ml/min; Globulin 3.9 g/dL (2.2-4.2); Glucose 104 mg/dL (74-106); Lipase 3660 U/L (73-393); Potassium 3.1 mmol/L (3.5-5.1); Protein, Total 7.8 g/dL (6.4-8.2); Sodium Level 138 mmol/L (136-145)
[2022-02-19] MEDS: 0.9% Normal Saline 1,000 ML 150 ML IV ×3 (13:10→22:46)
--- NOTE | 2022-02-19 13:40 | HP.PCM.HOS_ITS ---
HPI - General General Date of Admission: 02/19/22 HPI Narrative ERWIN GROVES, is a 41 F who presents to the hospital with abdominal pain which started on the day of admission. She was found to have an elevated lipase consistent with pancreatitis. She does have a history of pancreatitis which is alcohol induced. She states that she had a few drinks yesterday which is what set off her abdominal pain. She is also very inconsistent with taking her PPI and her Carafate. She did have gallbladder ultrasound back in August of this year which was unremarkable [facility] Medical History Alcohol abuse Pancreatitis Smoker Home Medications omeprazole 40 mg capsule,delayed release 40 mg PO DAILY #30 caps 01/04/22 [Rx Last Taken Unknown] ondansetron 4 mg disintegrating tablet 4 mg PO Q8H PRN nausea and vomiting #10 tabs 01/04/22 [Rx Last Taken Unknown] sucralfate 100 mg/mL oral suspension (Carafate) 10 ml PO BID 02/19/22 [History Last Taken Unknown] Allergy/AdvReac Type Severity Reaction Status Date / Time No Known Allergies Allergy Verified 12/13/21 15:06 Surgical History H/O tubal ligation Social History household members: family and children housing: house Smoking Status: Current every day smoker tobacco type: cigarettes alcohol intake: current alcohol intake frequency: 0-2 drinks per day substance use type: does not use ROS Constitutional Constitutional: Denies chills, fatigue, fever(s) or malaise Eyes Eyes: Denies blurry vision ENT HEENT: Denies headache(s) or nasal discharge Cardiovascular Cardiovascular: Denies chest pain, dyspnea on exertion or syncope Respiratory/Chest Respiratory/Chest: Denies cough, shortness of breath at rest or shortness of breath with exertion Gastrointestinal Gastrointestinal: Reports abdominal pain and nausea; Denies constipation, diarrhea or vomiting Genitourinary Genitourinary: Denies dysuria Neurologic Neurologic: Denies focal weakness, numbness or tremor(s) Psychiatric Psychiatric: Denies anxiety or depression Vital Signs Vital Signs Vital Signs: 02/19/22 11:24 02/19/22 12:07 02/19/22 11:25 Temperature 97.8 F 97.8 F Temperature Source Temporal Temporal Pulse Rate 98 88 88 Respiratory Rate 18 16 16 Blood Pressure 168/110 H 179/107 H 179/107 H Blood Pressure Mean 129 131 131 Pulse Ox 98 95 95 Oxygen Delivery Method Room Air Room Air Room Air 02/19/22 13:10 Temperature Temperature Source Pulse Rate 88 Respiratory Rate 16 Blood Pressure 178/109 H Blood Pressure Mean 132 Pulse Ox 98 Oxygen Delivery Method Room Air Weight Weight: 149 lb 7.574 oz Body Mass Index (BMI) 25.6 Physical Exam Narrative General: Alert, Oriented x3, Cooperative, No apparent distress HEENT: Atraumatic, PERRLA, EOMI, Normocephalic Oral: Moist Mucosa Neck: Supple, No JVD Lungs: Clear to auscultation, Normal air movement, No rhonchi, No wheeze, No rales Cardiovascular: Regular rate, Regular Rhythm, Normal S1, Normal S2, No murmurs Abdomen: Soft, diffuse tender, Non-Distended, No Hepato-splenomegaly Extremities: No edema, Capillary Refill Less than 3 Seconds Skin: No rashes, No breakdown Musculoskeletal: No Tenderness to Palpation of Joints or Extremities Neurological: Cranial nerves II-XII grossly intact, Motor Exam 5/5 strength throughout, Sensory exam intact to light touch and pain Psych/Mental Status: Normal Affect, Appropriate Results Lab / Micro Data Result Diagrams: 02/20/22 05:20 02/20/22 05:20 Labs: Laboratory Results - last 24 hr 02/19/22 11:53: WBC 9.1, RBC 4.54, Hgb 15.1 H, Hct 44.1, MCV 97.1, MCH 33.3 H, MCHC 34.2, RDW Std Deviation 46.4 H, RDW Coeff of Frankie 13.1, Plt Count 297, MPV 9.7, Immature Gran % (Auto) 0.600, Neut % (Auto) 72.9 H, Lymph % (Auto) 17.3 L, [place] % (Auto) 7.3, Eos % (Auto) 1.3, Baso % (Auto) 0.6, Absolute Neuts (auto) 6.6, Absolute Lymphs (auto) 1.57, Nucleated RBC % 0 02/19/22 11:53: Sodium 138, Potassium 3.1 L, Chloride 100, Carbon Dioxide 26.0, Anion Gap 12, BUN 7, Creatinine 0.60, Estim Creat Clear Calc 105.47, Est GFR (MDRD) Af Amer 142, Est GFR (MDRD) Non-Af 117, BUN/Creatinine Ratio 11.7, Glucose 104, Calcium 9.2, Total Bilirubin 0.70, Direct Bilirubin 0.23, AST 90 H, ALT 95 H, Alkaline Phosphatase 97, Total Protein 7.8, Albumin 3.9, Globulin 3.9, Lipase 3660 H 02/19/22 11:53: Serum , Qual NEGATIVE Assessment & Plan Assessment/Plan (1) Acute pancreatitis: PLAN: Plan 1. Alcohol induced pancreatitis/GERD ? Lipase is elevated ? We will make n.p.o. ? Continue with IV fluids ? Potassium is being replaced in the ER we will recheck in the morning ? Discussed alcohol cessation completely ? Continue with her home PPI and Carafate ? Continue with IV pain meds and antinausea medications DVT: Lovenox Charges/Coding Visit Charges Inpatient E&M: 66951 Init Hosp L2
[2022-02-19] MEDS: Potassium Chloride 10mEq/100mL 10 MEQ/100 ML IV.SOLN. 100 MEQ IV BOLUS ×4 (14:01→16:59)
[2022-02-19] MEDS: Sucralfate 1 GM Tablet PO (14:35)
[2022-02-19] MEDS: Pantoprazole Sodium 40 MG Tablet PO (15:56)
[2022-02-19] MEDS: MELATONIN 3 MG TABLET PO (21:58)
[2022-02-20] VITALS (7 sets, daily range): BP systolic 151–165; BP diastolic 70–105; PULSE 80–96; RESP 16–18; TEMP 36.6–37; O2SAT 96–100
[2022-02-20] MEDS: Morphine 4 MG/ML Syringe IV ×8 (01:04→23:01)
[2022-02-20] MEDS: 0.9% Normal Saline 1,000 ML 150 ML IV ×3 (05:15→19:59)
[2022-02-20 05:41] LABS: Absolute Lymphocyte Count 1.16 X10^3/uL (0.83-4.51); Absolute Neutrophil Count 5.1 X10^3/uL (2.0-7.7); Basophil# 0.04 X10^3/uL; Basophil% 0.6 % (0-1); Eosinophils% 2.8 % (0-5); Hematocrit 42.9 % (37-47); Hemoglobin 14.1 g/dL (12.0-15.0); Lymphocyte # 1.16 X10^3/ul (0.83-4.51); Lymphocyte % 16.5 % (19-41); Mean Corp Hgb Conc 32.9 g/dL (32-36); Mean Corpuscular Hgb 32.8 pg (27.0-32.0); Mean Corpuscular Volume 99.8 fL (81-99); Mean Platelet Vol. 9.7 fl (6.2-12.0); Monocyte# 0.47 X10^3/uL; Monocyte% 6.7 % (0-10); NRBC Flagged by Analyzer 0 % (0-5); Neutrophil # 5.14 X10^3/uL (2.7-7.7); Platelet Count 230 K/mm3 (150-450); RBC Distribution Width CV 13.1 % (11.6-14.6); RBC Distribution Width SD 48.1 fl (35.1-43.9)
[2022-02-20] MEDS: Sucralfate 1 GM Tablet PO ×2 (05:45→13:52)
[2022-02-20 05:54] LABS: Anion Gap 8 (5-15); BUN 5 mg/dL (7-18); BUN/Creat Ratio 10.2 RATIO (10-20); Calcium,Total 8.5 mg/dL (8.5-10.1); Chloride 100 mmol/L (98-107); Creatinine, Serum 0.49 mg/dL (0.55-1.02); EST Glomerular Filtration Rate 147 mL/min (>60); Est Glom Filt Rate - Afr Amer 178 mL/min (>60); Estimated Creatinine Clearance 129.15 ml/min; Glucose 82 mg/dL (74-106); Potassium 3.3 mmol/L (3.5-5.1); Sodium Level 137 mmol/L (136-145)
[2022-02-20] MEDS: Potassium Chloride 10mEq/100mL 10 MEQ/100 ML IV.SOLN. 100 MEQ IV BOLUS ×4 (07:50→10:58)
[2022-02-20] MEDS: Ondansetron 4 MG/2 ML Vial IV (07:58)
[2022-02-20] MEDS: Pantoprazole Sodium 40 MG Tablet PO (07:58)
[2022-02-20] MEDS: hydrALAZINE 20 MG/ML Vial 10 MG IV (07:58)
[2022-02-20] MEDS: Enoxaparin 40 MG/0.4 ML Syringe SC (09:42)
--- NOTE | 2022-02-20 10:27 | PN.HOSP_ITS ---
Subjective Subjective Doing well, she is hydrated and her pain is controlled with the morphine Objective Data Objective Data Vital Signs: Vital Signs Temp Pulse Resp BP Pulse Ox O2 Del Method 98.0 F 81 18 165/104 H 96 Room Air 02/20/22 08:05 02/20/22 08:05 02/20/22 08:05 02/20/22 08:05 02/20/22 08:05 02/20/22 08:05 Oxygen Delivery Method Room Air Weight: 139 lb Body Mass Index (BMI) 23.8 Intake & Output: Intake and Output for Last 24 Hours 02/19/22 02/20/22 02/21/22 03:59 03:59 03:59 Intake Total 3552.67 / 3552.67 1584.16 / 1584.16 Output Total 900 / 900 1950 / 1950 Balance 2652.67 / 2652.67 -365.84 / -365.84 Lab / Micro Data Result Diagrams: 02/20/22 05:20 02/20/22 05:20 Labs: Laboratory Results - last 24 hr 02/19/22 11:53: WBC 9.1, RBC 4.54, Hgb 15.1 H, Hct 44.1, MCV 97.1, MCH 33.3 H, MCHC 34.2, RDW Std Deviation 46.4 H, RDW Coeff of Frankie 13.1, Plt Count 297, MPV 9.7, Immature Gran % (Auto) 0.600, Neut % (Auto) 72.9 H, Lymph % (Auto) 17.3 L, [place] % (Auto) 7.3, Eos % (Auto) 1.3, Baso % (Auto) 0.6, Absolute Neuts (auto) 6.6, Absolute Lymphs (auto) 1.57, Nucleated RBC % 0 02/19/22 11:53: Sodium 138, Potassium 3.1 L, Chloride 100, Carbon Dioxide 26.0, Anion Gap 12, BUN 7, Creatinine 0.60, Estim Creat Clear Calc 105.47, Est GFR (MDRD) Af Amer 142, Est GFR (MDRD) Non-Af 117, BUN/Creatinine Ratio 11.7, Glucose 104, Calcium 9.2, Total Bilirubin 0.70, Direct Bilirubin 0.23, AST 90 H, ALT 95 H, Alkaline Phosphatase 97, Total Protein 7.8, Albumin 3.9, Globulin 3.9, Lipase 3660 H 02/19/22 11:53: Serum , Qual NEGATIVE 02/20/22 05:20: WBC 7.0, RBC 4.30, Hgb 14.1, Hct 42.9, MCV 99.8 H, MCH 32.8 H, MCHC 32.9, RDW Std Deviation 48.1 H, RDW Coeff of Frankie 13.1, Plt Count 230, MPV 9.7, Immature Gran % (Auto) 0.400, Neut % (Auto) 73.0 H, Lymph % (Auto) 16.5 L, [place] % (Auto) 6.7, Eos % (Auto) 2.8, Baso % (Auto) 0.6, Absolute Neuts (auto) 5.1, Absolute Lymphs (auto) 1.16, Nucleated RBC % 0 02/20/22 05:20: Sodium 137, Potassium 3.3 L, Chloride 100, Carbon Dioxide 29.0, Anion Gap 8, BUN 5 L, Creatinine 0.49 L, Estim Creat Clear Calc 129.15, Est GFR (MDRD) Af Amer 178, Est GFR (MDRD) Non-Af 147, BUN/Creatinine Ratio 10.2, Glu cose 82, Calcium 8.5 Physical Exam Narrative General: Alert, Oriented x3, Cooperative, No apparent distress HEENT: Atraumatic, PERRLA, EOMI, Normocephalic Oral: Moist Mucosa Neck: Supple, No JVD Lungs: Clear to auscultation, Normal air movement, No rhonchi, No wheeze, No rales Cardiovascular: Regular rate, Regular Rhythm, Normal S1, Normal S2, No murmurs Abdomen: Soft, diffuse tender mild, Non-Distended, No Hepato-splenomegaly Extremities: No edema, Capillary Refill Less than 3 Seconds Skin: No rashes, No breakdown Musculoskeletal: No Tenderness to Palpation of Joints or Extremities Neurological: Cranial nerves II-XII grossly intact, Motor Exam 5/5 strength throughout, Sensory exam intact to light touch and pain Psych/Mental Status: Normal Affect, Appropriate Assessment & Plan Assessment/Plan (1) Acute pancreatitis: PLAN: Plan 1. Alcohol induced pancreatitis/GERD/HTN ? Her blood pressure has been elevated and on review of her chart this does appear to be chronically elevated we will start her on Norvasc ? If she has significant improvement in her pain tomorrow could likely progress to a low-fat diet ? Continue with IV fluids ? Potassium is being replaced ? Discussed alcohol cessation completely ? Continue with her home PPI and Carafate ? Continue with IV pain meds and antinausea medications DVT: Lovenox Charges/Coding Visit Charges Inpatient E&M: 74473 Subs Hosp L2
[2022-02-20] MEDS: amLODIPine 10 MG Tablet PO (10:58)
[2022-02-21 02:00] VITALS: BP 142/98; PULSE 91; RESP 16; TEMP 36.5; O2SAT 95
[2022-02-21] MEDS: Morphine 4 MG/ML Syringe IV ×7 (02:07→22:14)
[2022-02-21] MEDS: 0.9% Normal Saline 1,000 ML 150 ML IV ×2 (02:07→08:25)
[2022-02-21] MEDS: Sucralfate 1 GM Tablet PO ×2 (05:22→15:27)
[2022-02-21 05:44] LABS: Absolute Neutrophil Count 5.1 X10^3/uL (2.0-7.7); Basophil# 0.03 X10^3/uL; Basophil% 0.4 % (0-1); Eosinophil# 0.24 X10^3/uL; Eosinophils% 3.4 % (0-5); Hematocrit 39.5 % (37-47); Hemoglobin 13.1 g/dL (12.0-15.0); Lymphocyte % 16.8 % (19-41); Mean Corp Hgb Conc 33.2 g/dL (32-36); Mean Corpuscular Hgb 33.1 pg (27.0-32.0); Mean Corpuscular Volume 99.7 fL (81-99); Mean Platelet Vol. 10.3 fl (6.2-12.0); Monocyte# 0.54 X10^3/uL; Monocyte% 7.6 % (0-10); NRBC Flagged by Analyzer 0 % (0-5); Neutrophil # 5.11 X10^3/uL (2.7-7.7); Neutrophil % 71.5 % (47-70); Platelet Count 211 K/mm3 (150-450); RBC Distribution Width CV 12.9 % (11.6-14.6); RBC Distribution Width SD 47.6 fl (35.1-43.9); Red Blood Count 3.96 M/mm3 (4.2-5.4); White Blood Count 7.1 K/mm3 (4.4-11.0)
[2022-02-21 06:10] LABS: ALB/GLOB Ratio 0.9 RATIO (0.9-2.4); AST(SGOT) 54 U/L (15-37); Alanine Aminotransfer ALT/SGPT 60 U/L (13-56); Alkaline Phosphatase 83 U/L (45-117); Anion Gap 8 (5-15); BUN 5 mg/dL (7-18); BUN/Creat Ratio 11.7 RATIO (10-20); Calcium,Total 8.5 mg/dL (8.5-10.1); Chloride 103 mmol/L (98-107); Creatinine, Serum 0.43 mg/dL (0.55-1.02); EST Glomerular Filtration Rate 172 mL/min (>60); Est Glom Filt Rate - Afr Amer 209 mL/min (>60); Estimated Creatinine Clearance 147.17 ml/min; Globulin 3.3 g/dL (2.2-4.2); Glucose 68 mg/dL (74-106); Potassium 3.3 mmol/L (3.5-5.1); Protein, Total 6.3 g/dL (6.4-8.2); Sodium Level 139 mmol/L (136-145)
--- NOTE | 2022-02-21 07:37 | PN.HOSP_ITS ---
Subjective Subjective Follow-up for alcoholic pancreatitis. Patient is still has upper abdominal mainly epigastric pain and mild distention. Denies nausea or vomiting. Patient last bowel movement was last Monday on 02/18. No fever. No tachycardia. Objective Data Objective Data Vital Signs: Vital Signs Temp Pulse Resp BP Pulse Ox O2 Del Method 97.7 F L 91 16 142/98 H 95 Room Air 02/21/22 02:00 02/21/22 02:00 02/21/22 02:00 02/21/22 02:00 02/21/22 02:00 02/21/22 02:00 Oxygen Delivery Method Room Air Weight: 139 lb Body Mass Index (BMI) 23.8 Intake & Output: Intake and Output for Last 24 Hours 02/19/22 02/20/22 02/21/22 23:59 23:59 23:59 Intake Total 3552.67 / 3552.67 5283.49 / 5283.49 920 / 920 Output Total 5400 / 5400 Balance 3552.67 / 2652.67 -116.51 / -116.51 920 / 920 Lab / Micro Data Result Diagrams: 02/21/22 05:07 02/21/22 05:07 Labs: Laboratory Results - last 24 hr 02/21/22 05:07: WBC 7.1, RBC 3.96 L, Hgb 13.1, Hct 39.5, MCV 99.7 H, MCH 33.1 H, MCHC 33.2, RDW Std Deviation 47.6 H, RDW Coeff of Frankie 12.9, Plt Count 211, MPV 10.3, Immature Gran % (Auto) 0.300, Neut % (Auto) 71.5 H, Lymph % (Auto) 16.8 L, [place] % (Auto) 7.6, Eos % (Auto) 3.4, Baso % (Auto) 0.4, Absolute Neuts (auto) 5.1, Absolute Lymphs (auto) 1.20, Nucleated RBC % 0 02/21/22 05:07: Sodium 139, Potassium 3.3 L, Chloride 103, Carbon Dioxide 28.0, Anion Gap 8, BUN 5 L, Creatinine 0.43 L, Estim Creat Clear Calc 147.17, Est GFR (MDRD) Af Amer 209, Est GFR (MDRD) Non-Af 172, BUN/Creatinine Ratio 11.7, Glucose 68 L, Calcium 8.5, Total Bilirubin 0.60, AST 54 H, ALT 60 H, Alkaline Phosphatase 83, Total Protein 6.3 L, Albumin 3.0 L, Globulin 3.3, Albumin/Globulin Ratio 0.9 Physical Exam Narrative Seen and examined. Patient drinks 2 large glasses of cranberry vodka daily for long time. Denies stigmata of chronic liver disease including hematemesis, melena, GI bleed, jaundice. Patient never had EGD Last drink was Monday night. Did not had bowel movement since then. General: Alert, Oriented x3, Cooperative HEENT: Atraumatic, PERRLA, EOMI, Normocephalic Oral: No Gingival or Mucosal Lesions/ Ulcerations Neck: Supple, No JVD, Negative Carotid Bruits Lungs: Air entry diminished in bilateral lung bases. No crepitation/rhonchi Cardiovascular: Regular rate, Regular Rhythm, Normal S1, Normal S2, No murmurs Abdomen: Bowel Sounds sluggish , Soft, tender in epigastrium, RUQ and LUQ. Mildly distended. No palpable mass : No renal angle tenderness. No suprapubic tenderness. Extremities: No edema, Capillary Refill Less than 3 Seconds Skin: No rashes, No breakdown Musculoskeletal: No Tenderness to Palpation of Joints or Extremities Neurological: Cranial nerves II-XII grossly intact, DTR 2+/4 and Symmetrical, Neuro grossly intact Psych/Mental Status: Flat affect. Assessment & Plan Assessment/Plan (1) Acute pancreatitis: PLAN: Plan This is 41-year-old female admitted with abdominal pain started on the day of admission, elevated lipase with history of large amount of chronic alcohol use with history of chronic alcoholic pancreatitis consistent with acute on recurrent alcoholic pancreatitis. 1. Alcohol induced pancreatitis: Patient is being admitted to MedSurg floor. Patient still has mild abdominal tenderness and distention. Started on sips and chips/clear liquid. Continue IV fluid. Continue IV pain medication and supportive management. 2. GERD: Continue home dose of Carafate and PPI. 3.. Electrolyte abnormality: Hypokalemia. Serum magnesium low normal normal. Replace potassium and and magnesium. DVT: Lovenox Laboratory Results 02/21/22 05:07: WBC 7.1, RBC 3.96 L, Hgb 13.1, Hct 39.5, MCV 99.7 H, MCH 33.1 H, MCHC 33.2, RDW Std Deviation 47.6 H, RDW Coeff of Frankie 12.9, Plt Count 211, MPV 10.3, Immature Gran % (Auto) 0.300, Neut % (Auto) 71.5 H, Lymph % (Auto) 16.8 L, [place] % (Auto) 7.6, Eos % (Auto) 3.4, Baso % (Auto) 0.4, Absolute Neuts (auto) 5.1, Absolute Lymphs (auto) 1.20, Nucleated RBC % 0 02/21/22 05:07: Sodium 139, Potassium 3.3 L, Chloride 103, Carbon Dioxide 28.0, Anion Gap 8, BUN 5 L, Creatinine 0.43 L, Estim Creat Clear Calc 147.17, Est GFR (MDRD) Af Amer 209, Est GFR (MDRD) Non-Af 172, BUN/Creatinine Ratio 11.7, Glucose 68 L, Calcium 8.5, Total Bilirubin 0.60, AST 54 H, ALT 60 H, Alkaline Phosphatase 83, Total Protein 6.3 L, Albumin 3.0 L, Globulin 3.3, Albumin/Globulin Ratio 0.9 02/21/22 05:07: Phosphorus 3.0, Magnesium 1.6 Charges/Coding Visit Charges Inpatient E&M: 72366 Subs Hosp L2
[2022-02-21 07:50] VITALS: BP 139/99; PULSE 83; RESP 16; TEMP 37.2; O2SAT 96
[2022-02-21 08:02] LABS: Magnesium 1.6 mg/dL (1.6-2.6)
[2022-02-21] MEDS: Potassium Chloride 10mEq/100mL 10 MEQ/100 ML IV.SOLN. 100 MEQ IV BOLUS ×4 (08:27→11:34)
[2022-02-21] MEDS: Pantoprazole Sodium 40 MG Tablet PO (09:17)
[2022-02-21] MEDS: amLODIPine 10 MG Tablet PO (09:17)
--- NOTE | 2022-02-21 09:23 | CASEMGMT ---
VIVIEN LYON Assessment: Face to Face with pt for initial transition planning/care coordination assessment. RN CAMRON introduced self and role at [facility], pt voices understanding and consents to assessment. Pt is A/O x4 and answers all questions appropriately at this time. Pt sitting up in bed in no distress. Care providers, pharmacy, and demographics verified/updated. Admitting Dx: pancreatitis PCP:Pt denies. Provided pt with local healthcare directory. Specialists:Pt denies. [facility]erred [facility]acy: [facility] Insurance: [facility] Prescription Benefit: yes LW/HPOA: Pt denies having a LW/DPOA and denies need for info regarding AD. LNOK: Kathy Shane, mother Living Arrangements: Pt lives with mother and dtr in a single story house with 4 steps to enter. Pt reports she is I in ADL's and denies concerns at home. Transportation: Pt drives self and denies concerns with transportation. DME/HHC/SNF: Pt denies having any DME,previous HHC or SNF stays. Pt states no concerns with going home at time of dc. Pt states no further concerns/needs. CM to follow. Advised pt to ask CM if any further question/concerns/needs arise, voices understanding. Pt Goal: Home Plan: Home
[2022-02-21] MEDS: Senna/Docusate Sodium 1 Tablet 2 TABLET PO ×2 (11:40→20:57)
[2022-02-21] MEDS: Lactated Ringers 1,000 ML 150 ML IV ×2 (11:41→18:15)
[2022-02-21] MEDS: 0.9% Saline Lock 10 ML Syringe IV (11:42)
[2022-02-21 13:22] VITALS: BP 140/91; PULSE 82; RESP 16; TEMP 36.9; O2SAT 96
--- NOTE | 2022-02-21 15:02 | CHAPLAIN ---
Type of Pastoral Visit _x__ Initial Visit ___ Follow-up Visit ___ On-call Visit ___ General Patient Visit ___ Spiritual Assessment ___ Family Conference ___ Bereavement ___ Rapid Response ___ Code Blue ___ Other (describe below) Pastoral Care Referral From _x__ Patient ___ Family ___ Nurse ___ Physician ___ Merchandising Consultant ___ Hand Spring Repairer Helper ___ Other (describe below) Sacrament/Intervention ___ Active listening ___ Anointing ___ Yazidism ___ Bereavement ___ Communion ___ Mely exploration ___ ___ Life review _x__ Prayer ___ Reconciliation ___ Sacrament of Sick _x__ Supportive presence ___ Wedding ___ Other (describe below) Pastoral Comments patient states she is doing well, has some family to call on, and has no immediate needs at this time; pt welcomes presence and prayer
[2022-02-21 17:46] VITALS: BP 126/89; PULSE 86; RESP 14; TEMP 37.1; O2SAT 97
[2022-02-21 21:00] VITALS: BP 134/90; PULSE 84; RESP 18; TEMP 37; O2SAT 96
[2022-02-22] MEDS: Lactated Ringers 1,000 ML 150 ML IV ×2 (00:41→06:47)
[2022-02-22] MEDS: Morphine 4 MG/ML Syringe IV ×4 (01:30→12:15)
[2022-02-22 04:00] VITALS: BP 143/94; PULSE 79; RESP 16; TEMP 37; O2SAT 98
[2022-02-22] MEDS: Sucralfate 1 GM Tablet PO ×2 (06:03→16:13)
[2022-02-22] MEDS: 0.9% Saline Lock 10 ML Syringe IV ×2 (07:49→12:15)
[2022-02-22] MEDS: Pantoprazole Sodium 40 MG Tablet PO (07:50)
[2022-02-22] MEDS: amLODIPine 10 MG Tablet PO (07:50)
[2022-02-22] MEDS: Senna/Docusate Sodium 1 Tablet 2 TABLET PO (07:50)
--- NOTE | 2022-02-22 08:07 | CASEMGMT ---
Social Work Late entry for 02/21. SW attempted to speak with pt regarding alcohol consumption. Pt sleepy and asked SW to come back at later time. MERT York
[2022-02-22 08:10] LABS: Lipase 1212 U/L (73-393)
[2022-02-22 08:15] LABS: ALB/GLOB Ratio 0.9 RATIO (0.9-2.4); AST(SGOT) 126 U/L (15-37); Alanine Aminotransfer ALT/SGPT 100 U/L (13-56); Albumin, Serum 3.2 g/dL (3.2-5.0); Alkaline Phosphatase 131 U/L (45-117); Anion Gap 6 (5-15); BUN 4 mg/dL (7-18); BUN/Creat Ratio 7.3 RATIO (10-20); Calcium,Total 9.2 mg/dL (8.5-10.1); Chloride 100 mmol/L (98-107); Creatinine, Serum 0.55 mg/dL (0.55-1.02); EST Glomerular Filtration Rate 129 mL/min (>60); Est Glom Filt Rate - Afr Amer 156 mL/min (>60); Estimated Creatinine Clearance 115.06 ml/min; Globulin 3.6 g/dL (2.2-4.2); Glucose 99 mg/dL (74-106); Magnesium 1.9 mg/dL (1.6-2.6); Protein, Total 6.8 g/dL (6.4-8.2); Sodium Level 140 mmol/L (136-145)
[2022-02-22 09:23] VITALS: BP 151/105; PULSE 67; RESP 15; TEMP 36.7; O2SAT 99
--- NOTE | 2022-02-22 09:49 | DCINST_ITS ---
Discharge Instructions Diet Discharge Diet: Soft diet (for 5 days and then regular diet) and Low fat / Low cholesterol Activity Discharge Activity: Return to Normal Activity and May Not Drive Weight Bearing Status: Weight bearing as tolerated Dressing / Incision Call your doctor if you observe: Fever of 101 or Higher, Coldness, Increased Pain, Numbness or Tingling, Change in Color, Inability to urinate, Inability to have a bowel movement, Using more than 1 pad per hour, Shortness of breath, Dizziness, Fainting spells, Swelling in the ankles, Chest pain, Prolonged hiccupping, Increased palpitations (irregular heartbeat) and Calf discomfort Follow Up Care Test Results: Test results from this visit will be discussed in further detail at your follow- up appointment, if applicable. Discharge Plan Admission Admit Date/Time: 02/19/22 13:37 Primary Reason for Your Visit: Acute alcoholic pancreatitis Attending Provider: Soto Mg Primary Care Provider: Catherine Physician,No Primary Consulting Providers: Alfonzo Grey Discharge Orders/Prescriptions Prescriptions: New sennosides-docusate sodium [Stool Softener-Stimulant Laxat] 8.6-50 mg Tablet 2 tab PO BID PRN (Reason: constipation) Qty: 60 0RF amlodipine 10 mg Tablet 10 mg PO DAILY Qty: 30 0RF Rx Instructions: Hold for SBP less than 130 mmHg Continued omeprazole 40 mg capsule,delayed release(DR/EC) 40 mg PO DAILY Qty: 30 1RF ondansetron 4 mg tablet,disintegrating 4 mg PO Q8H PRN (Reason: nausea and vomiting) Qty: 30 0RF Changed sucralfate [Carafate] 100 mg/mL suspension 10 ml PO BID 30 Days Qty: 600 0RF Referrals / Follow Up: Care Physician,No Primary [Primary Care Provider] - Disposition Disposition (needs filled in before D/C Order can be placed): Home, Self Care
--- NOTE | 2022-02-22 11:24 | CASEMGMT ---
Social Work SW in to met with pt to discuss alcohol treatment resources. Pt sitting up in bed, resting comfortable. SW inquired about discharge planning needs. Pt denied any needs. SW relation of diagnosis with alcohol consumption and offered education. Pt open to accepting resources from [facility] for peer recovery but declined counseling resources, stated has information on this at home. SW encouraged pt to reach out for any additional assistance needed. Pt voiced understanding. MERT York
--- NOTE | 2022-02-22 11:54 | DS.PCM_ITS ---
Providers Date of Admission: 02/19/22 Date of Discharge: 02/22/22 Primary Care Physician: No Primary Care Phys Reason For Visit: PANCREATITIS Diagnosis Discharge Diagnosis (1) Acute pancreatitis: Status: Acute Code(s): K85.90 - Acute pancreatitis without necrosis or infection, unspecified Medications at Discharge Home Medications amlodipine 10 mg tablet 10 mg PO DAILY #30 tabs 02/22/22 omeprazole 40 mg capsule,delayed release 40 mg PO DAILY #30 caps 02/22/22 ondansetron 4 mg disintegrating tablet 4 mg PO Q8H PRN nausea and vomiting #30 tabs 02/22/22 sennosides 8.6 mg-docusate sodium 50 mg tablet (Stool Softener-Stimulant Laxative) 2 tab PO BID PRN constipation #60 tabs 02/22/22 sucralfate 100 mg/mL oral suspension (Carafate) 10 ml PO BID 30 days #600 mL 02/22/22 Hospital Course Summary of Care Provided Hospital Course: This is 41-year-old female admitted with abdominal pain started on the day of admission, elevated lipase with history of large amount of chronic alcohol use with history of chronic alcoholic pancreatitis consistent with acute on recurrent alcoholic pancreatitis. 1. Alcohol induced pancreatitis: Patient is being admitted to MedSurg floor. Patient still has mild abdominal tenderness and distention. Started on sips and chips/clear liquid. Continue IV fluid. Continue IV pain medication and supportive management. Patient has elevated ALT and AST and alkaline phosphatase probably due to alcoholic pancreatitis. Total bilirubin normal. 02/22: Abdominal pain has improved but still has mild intensity. Liquid diet advance to soft bland diet for 5 days and then regular diet. Avoid fatty and oily food. Will need follow-up liver chemistry in 2 weeks and follow-up with Dr. Salamanca and if there is still pattern of cholestatic liver chemistry will need fu rther evaluation MRCP/ERCP Follow with Dr. Salamanca in 1 to 2 weeks. This was communicated to the patient. 2. GERD: Continue home dose of Carafate and PPI. Prescriptions given for omeprazole and Carafate. 3. Hypertension: Patient was given prescription for amlodipine 10 mg daily. 4. Electrolyte abnormality: Hypokalemia. Serum magnesium low normal normal. Replace potassium and and magnesium. Mild hypokalemia, K3.0, bicarb 34. IV potassium replaced. DVT: Lovenox Discharge medication reconciliation done. Discharge follow-up instructions completed. Discharge process discussed with the patient and all questions were answered to patient's satisfaction. Total time spent, exact 35 minutes on discharge meds reconciliation, examination, coordination of care with nurses and ancillary staff, review of imaging and blood test and discussion with the patient on follow-up instruction s. Laboratory Results 02/22/22 06:00: Sodium 140, Potassium 3.0 L, Chloride 100, Carbon Dioxide 34.0 H , Anion Gap 6, BUN 4 L, Creatinine 0.55, Estim Creat Clear Calc 115.06, Est GFR (MDRD) Af Amer 156, Est GFR (MDRD) Non-Af 129, BUN/Creatinine Ratio 7.3 L, Glucose 99, Calcium 9.2, Magnesium 1.9, Total Bilirubin 0.60, AST 126 H, ALT 100 H, Alkaline Phosphatase 131 H, Total Protein 6.8, Albumin 3.2, Globulin 3.6, Albumin/Globulin Ratio 0.9 02/22/22 06:00: Lipase 1212 H Physical Exam Narrative Seen and examined. Patient wants to go home. Mild abdominal pain 3 days loss for better intensity. Tolerated liquid diet yesterday. Advance to soft diet. General: Alert, Oriented x3, Cooperative HEENT: Atraumatic, PERRLA, EOMI, Normocephalic Oral: No Gingival or Mucosal Lesions/ Ulcerations Neck: Supple, No JVD, Negative Carotid Bruits Lungs: Air entry diminished in bilateral lung bases. No crepitation/rhonchi Cardiovascular: Regular rate, Regular Rhythm, Normal S1, Normal S2, No murmurs Abdomen: Bowel Sounds sluggish , Soft, mild tenderness in epigastrium, RUQ and LUQ. Distention resolved No palpable mass : No renal angle tenderness. No suprapubic tenderness. Extremities: No edema, Capillary Refill Less than 3 Seconds Skin: No rashes, No breakdown Musculoskeletal: No Tenderness to Palpation of Joints or Extremities Neurological: Cranial nerves II-XII grossly intact, DTR 2+/4 and Symmetrical, Neuro grossly intact Psych/Mental Status: Flat affect. Weight / BMI Weight Weight: 138 lb 15.988 oz Body Mass Index (BMI) 23.8 ABG / Lab / Microbiology Data Result Diagrams: 02/21/22 05:07 02/22/22 06:00 Laboratory: Laboratory Results - last 24 hr 02/22/22 06:00: Sodium 140, Potassium 3.0 L, Chloride 100, Carbon Dioxide 34.0 H , Anion Gap 6, BUN 4 L, Creatinine 0.55, Estim Creat Clear Calc 115.06, Est GFR (MDRD) Af Amer 156, Est GFR (MDRD) Non-Af 129, BUN/Creatinine Ratio 7.3 L, Glucose 99, Calcium 9.2, Magnesium 1.9, Total Bilirubin 0.60, AST 126 H, ALT 100 H, Alkaline Phosphatase 131 H, Total Protein 6.8, Albumin 3.2, Globulin 3.6, Albumin/Globulin Ratio 0.9 02/22/22 06:00: Lipase 1212 H D/C Instructions Discharge Diet: Soft diet (for 5 days and then regular diet) and Low fat / Low cholesterol Weight Bearing Status: Weight bearing as tolerated Call your doctor if you observe: Fever of 101 or Higher, Coldness, Increased Pain, Numbness or Tingling, Change in Color, Inability to urinate, Inability to have a bowel movement, Using more than 1 pad per hour, Shortness of breath, Dizziness, Fainting spells, Swelling in the ankles, Chest pain, Prolonged hiccupping, Increased palpitations (irregular heartbeat) and Calf discomfort Meaningful Use Info Meaningful Use Diagnoses (Choose all that apply): None applicable Discharge Plan Admission Admit Date/Time: 02/19/22 13:37 Primary Reason for Your Visit: Acute alcoholic pancreatitis Attending Provider: Soto Mg Primary Care Provider: Care Physician,No Primary Consulting Providers: Alfonzo Grey Discharge Orders/Prescriptions Prescriptions: New sennosides-docusate sodium [Stool Softener-Stimulant Laxat] 8.6-50 mg Tablet 2 tab PO BID PRN (Reason: constipation) Qty: 60 0RF amlodipine 10 mg Tablet 10 mg PO DAILY Qty: 30 0RF Rx Instructions: Hold for SBP less than 130 mmHg Continued omeprazole 40 mg capsule,delayed release(DR/EC) 40 mg PO DAILY Qty: 30 1RF ondansetron 4 mg tablet,disintegrating 4 mg PO Q8H PRN (Reason: nausea and vomiting) Qty: 30 0RF Changed sucralfate [Carafate] 100 mg/mL suspension 10 ml PO BID 30 Days Qty: 600 0RF Referrals / Follow Up: Care Physician,No Primary [Primary Care Provider] - Friend,DO Chandler [Med Staff - Active Staff] - Within 2 Weeks (For acute on recurrent pancreatitis with mild abnormal cholestatic pattern of liver chemistry. TB normal) Disposition Disposition (needs filled in before D/C Order can be placed): Home, Self Care Charges/Coding Visit Charges Inpatient E&M: 54716 Disch Hosp
--- NOTE | 2022-02-22 14:11 | PHA.DC.MC ---
Pharmacy Service has performed discharge medication reconciliation and counseling for this patient. 1. AMLODIPINE 10MG PO DAILY 2. SENNA/DOCUSATE 2T PO BID PRN CONSTIPATION The patient's discharge medication list was reviewed for discrepancies and discrepancies were resolved. Home Medications amlodipine 10 mg tablet 10 mg PO DAILY #30 tabs 02/22/22 omeprazole 40 mg capsule,delayed release 40 mg PO DAILY #30 caps 02/22/22 ondansetron 4 mg disintegrating tablet 4 mg PO Q8H PRN nausea and vomiting #30 tabs 02/22/22 sennosides 8.6 mg-docusate sodium 50 mg tablet (Stool Softener-Stimulant Laxative) 2 tab PO BID PRN constipation #60 tabs 02/22/22 sucralfate 100 mg/mL oral suspension (Carafate) 10 ml PO BID 30 days #600 mL 02/22/22 The patient was counseled on the following discharge medications and changes in medications for homegoing were reviewed. The Reason for Use, instructions for use, and potential side effects were reviewed for all new medications. The patient's questions regarding all of their medications were answered. The patient was able to verbally demonstrate an understanding of their discharge medications. Patient counseled by pharmacy service associateEdenilson.
[2022-02-22 15:00] VITALS: BP 136/94; PULSE 78; RESP 15; TEMP 36.8; O2SAT 97
[2022-02-22] MEDS: oxyCODONE 5 MG Tablet PO (16:12)
== END 2022-02-22 18:30 | disposition home or self-care (01) | DRG 282 ==
LOC: ED 13:33 → MS3 13:50
PROVIDERS: Admitting Provider Family Medicine; Emergency Provider Emergency Medicine; Visit Provider Internal Medicine
DX: K85.20 Alcohol induced acute pancreatitis without necrosis or infection (principal); E87.6 Hypokalemia; F17.210 Nicotine dependence, cigarettes, uncomplicated; K21.9 Gastro-esophageal reflux disease without esophagitis; I10 Essential (primary) hypertension; F10.10 Alcohol abuse, uncomplicated; Y90.9 Presence of alcohol in blood, level not specified
CPT/HCPCS: 36415; 80048; 80053; 80076; 83690; 83735; 84100; 84703; 85025; 93005; 99285; 99406; J7030; J7050; J7120; A4216; J2405

== ENCOUNTER 2022-07-28 06:05 | Inpatient (IN) | payer MEDICAID, SELFPAY ==
[2022-07-28] VITALS (16 sets, daily range): BP systolic 168–193; BP diastolic 11–120; PULSE 90–125; RESP 14–22; TEMP 36.1–37.5; O2SAT 95–100; BMI 22.8; BMI 23.3
[2022-07-28 06:59] LABS: Mucous, Urine 0 SEEN /hpf (<or=2+); Red Blood Cells-Urine 0 SEEN /hpf (0-5)
[2022-07-28] MEDS: 0.9% Normal Saline 1,000 ML 500 ML IV (07:01)
[2022-07-28 07:07] LABS: Absolute Lymphocyte Count 1.18 X10^3/uL (0.83-4.51); Absolute Neutrophil Count 9.8 X10^3/uL (2.0-7.7); Basophil# 0.07 X10^3/uL; Basophil% 0.6 % (0-1); Eosinophil# 0.13 X10^3/uL; Eosinophils% 1.1 % (0-5); Hematocrit 44.3 % (37-47); Hemoglobin 14.9 g/dL (12.0-15.0); Lymphocyte # 1.18 X10^3/ul (0.83-4.51); Lymphocyte % 9.9 % (19-41); Mean Corp Hgb Conc 33.6 g/dL (32-36); Mean Corpuscular Hgb 32.7 pg (27.0-32.0); Mean Corpuscular Volume 97.4 fL (81-99); Mean Platelet Vol. 10.1 fl (6.2-12.0); Monocyte# 0.66 X10^3/uL; Monocyte% 5.6 % (0-10); NRBC Flagged by Analyzer 0 % (0-5); Neutrophil # 9.81 X10^3/uL (2.7-7.7); Neutrophil % 82.5 % (47-70); Platelet Count 267 K/mm3 (150-450); RBC Distribution Width CV 13.5 % (11.6-14.6); RBC Distribution Width SD 49.1 fl (35.1-43.9); Red Blood Count 4.55 M/mm3 (4.2-5.4); White Blood Count 11.9 K/mm3 (4.4-11.0)
[2022-07-28 07:16] LABS: Internal QC Validated? YES +Cl - CLEAR BKGD; Pregnancy, Serum, hCG Quali. NEGATIVE Negative
[2022-07-28 07:24] LABS: Anion Gap 10 (5-15); BUN 11 mg/dL (7-18); BUN/Creat Ratio 18.7 RATIO (10-20); Calcium,Total 9.2 mg/dL (8.5-10.1); Chloride 99 mmol/L (98-107); Creatinine, Serum 0.59 mg/dL (0.55-1.02); EST Glomerular Filtration Rate 119 mL/min (>60); Est Glom Filt Rate - Afr Amer 144 mL/min (>60); Estimated Creatinine Clearance 106.17 ml/min; Glucose 138 mg/dL (74-106); Potassium 2.8 mmol/L (3.5-5.1); Sodium Level 137 mmol/L (136-145)
--- NOTE | 2022-07-28 07:24 | EDS_ITS ---
HPI HPI - GI History of Present Illness Chief Complaint: Abd Pain Informant: patient Abdominal Pain/Flank Pain Onset: Yesterday Context: Sudden Onset Timing: Continuous Quality: Aching and Stabbing Location: Epigastric, RUQ and LUQ Worsened by: Nothing Relieved by: Nothing Nausea/Vomiting/Emesis GI Symptom: Positive for Nausea and Vomiting Onset: Today Quality: Positive for Nonbilious; Negative for Blood streaks, Coffee ground or Hematemesis Diarrhea/Melena/Hematochezia GI Symptom: Negative for Diarrhea, Melena or Hematochezia Associated Symptoms Associated Symptoms: Negative for Dysuria, Frequency or Hematuria Narrative Narrative: Presents with abdominal pain that began yesterday. Patient states pain is over the upper abdomen. Patient states it feels similar to prior episodes of pancreatitis. Patient states it began rather suddenly. Patient states it has been constant. Patient describes it as stabbing and aching. Patient states nothing makes it better nothing makes it worse. Patient states she started having some nausea and vomiting today. Patient denies any hematemesis or coffee-ground emesis. Patient denies any diarrhea, melena, or hematochezia. Patient denies any urinary complaints. Patient denies any fevers or chills. PFSH PFSH Medical History Alcohol abuse Pancreatitis Smoker Home Medications amlodipine 10 mg tablet 10 mg PO DAILY #30 tabs 02/22/22 [Rx Last Taken 07/28/22 03:00] omeprazole 40 mg capsule,delayed release 40 mg PO DAILY #30 caps 02/22/22 [Rx Last Taken 07/28/22 03:00] ondansetron 4 mg disintegrating tablet 4 mg PO Q8H PRN nausea and vomiting #30 tabs 02/22/22 [Rx Last Taken 07/28/22 03:00] sennosides 8.6 mg-docusate sodium 50 mg tablet (Stool Softener-Stimulant Laxative) 2 tab PO BID PRN constipation #60 tabs 02/22/22 [Rx Last Taken Unknown] ibuprofen 200 mg tablet (Motrin IB) 800 mg PO Q4H PRN Pain 07/28/22 [History Last Taken 07/28/22 06:30] sucralfate 100 mg/mL oral suspension (Carafate) 10 ml PO BID PRN GERD 07/28/22 [History Last Taken 07/24/22] Allergy/AdvReac Type Severity Reaction Status Date / Time No Known Allergies Allergy Verified 07/28/22 06:08 Surgical History H/O tubal ligation Social History household members: family and children housing: house Smoking Status: Current every day smoker tobacco type: cigarettes alcohol intake: current alcohol intake frequency: 0-2 drinks per day substance use type: does not use ROS ROS ED Constitutional Constitutional ED: Denies chills or fever(s) Eyes Eyes: Denies blurry vision or change in vision ENT ENT ED: Denies rhinorrhea or sore throat Cardiovascular Cardiovascular: Reports chest pain; Denies palpitations Respiratory/Chest Respiratory/Chest: Denies cough or dyspnea Gastrointestinal Gastrointestinal: Reports abdominal pain, nausea and vomiting Genitourinary Genitourinary ED: Denies dysuria or hematuria Musculoskeletal Musculoskeletal: Reports back pain; Denies neck pain Integumentary Denies abscess or rash Neurologic Neurologic: Denies headache(s) or weakness Allergic/Immunologic Allergic/Immunologic ED: Denies mouth swelling or urticaria EXAM Physical Exam Const Vital Signs: 07/28/22 06:06 07/28/22 06:45 Temperature 97.0 F L Temperature Source Temporal Pulse Rate 106 H Respiratory Rate 16 Blood Pressure 184/120 H Blood Pressure Mean 141 Pulse Ox 99 99 Oxygen Delivery Method Room Air Room Air Positive well nourished and well developed General Appearance ED: well developed HEENT Reports moist mucous membranes Neck supple and no JVD Resp normal respiratory effort and clear to auscultation bilaterally Cardio regular rate, regular rhythm and no murmurs GI normal to inspection, nondistended, normoactive bowel sounds GI Narrative: There is diffuse tenderness over the entire abdomen but it is worse over the epigastric and upper abdomen. There is no rebound or guarding noted. Palpation: soft and tender epigastric, LLQ, RLQ, LUQ, RUQ, periumbilical and suprapubic; Negative for guarding or rebound tenderness present Extremity normal to inspection General Extremety ED: Negative for edema or tenderness General Extremity: Negative for edema Neuro oriented x3, CN's II-XII intact bilaterally and no sensory deficits noted Sensorium / Orientation: alert Motor Exam: strength 5/5 throughout Psych mental status grossly normal Skin no rashes or lesions noted MDM MDM MDM Narrative Medical decision making narrative: Differential diagnosis includes pancreatitis, bowel obstruction, perforation, gastroenteritis, colitis, urinary tract infection, and pyelonephritis. CBC will be obtained to assess for leukocytosis and anemia. Comprehensive metabolic profile will be obtained to assess for electrolyte abnormality, renal function, and hepatic function. Lipase will be obtained to assess for pancreatitis. CT scan of the abdomen pelvis will be obtained to assess for bowel obstruction, perforation, and colitis. Urinalysis will be obtained to assess for urinary tract infection. Serum hCG will be obtained to assess for . Lab Data Attestation: I reviewed the patient's lab results. Lab results narrative: CBC was reviewed. There is a mild leukocytosis of 11.9. Basic metabolic profile was reviewed. There is mild hypokalemia of 2.8. Glucose was 138. Serum hCG was reviewed and was negative. Lipase was reviewed and was elevated at 9420. Hepatic profile was reviewed and showed a mildly elevated alkaline phosphatase of 131, AST was slightly elevated at 51, and ALT was slightly elevated at 67. Total bilirubin and direct bilirubin were within normal limits. Urinalysis was reviewed and showed a leukocyte esterase of 25. Urine ketones were 150. There were positive urine nitrites. There were 0-5 white blood cells and 0 red blood cells. There is 5-10 epithelial cells. There is 4+ bacteria. Urine culture was ordered. Labs: Laboratory Results - last 24 hr 07/28/22 07/28/22 07/28/22 06:20 06:20 06:20 WBC 11.9 H RBC 4.55 Hgb 14.9 Hct 44.3 MCV 97.4 MCH 32.7 H MCHC 33.6 RDW Std Deviation 49.1 H RDW Coeff of Frankie 13.5 Plt Count 267 MPV 10.1 Immature Gran % (Auto) 0.300 Neut % (Auto) 82.5 H Lymph % (Auto) 9.9 L [place] % (Auto) 5.6 Eos % (Auto) 1.1 Baso % (Auto) 0.6 Absolute Neuts (auto) 9.8 H Absolute Lymphs (auto) 1.18 Nucleated RBC % 0 Sodium 137 Potassium 2.8 L Chloride 99 Carbon Dioxide 28.0 Anion Gap 10 BUN 11 Creatinine 0.59 Estim Creat Clear Calc 106.17 Est GFR (MDRD) Af Amer 144 Est GFR (MDRD) Non-Af 119 BUN/Creatinine Ratio 18.7 Glucose 138 H Calcium 9.2 Total Bilirubin Direct Bilirubin AST ALT Alkaline Phosphatase Total Protein Albumin Globulin Lipase Serum , Qual NEGATIVE Urine Color Urine Clarity Urine pH Ur Specific [place] Urine Protein Urine Glucose (UA) Urine Ketones Urine Occult Blood Urine Nitrite Urine Bilirubin Urine Urobilinogen Ur Leukocyte Esterase Urine RBC Urine WBC Ur Squamous Epith Cells Urine Bacteria Urine Mucus 07/28/22 07/28/22 06:20 06:55 WBC RBC Hgb Hct MCV MCH MCHC RDW Std Deviation RDW Coeff of Frankie Plt Count MPV Immature Gran % (Auto) Neut % (Auto) Lymph % (Auto) [place] % (Auto) Eos % (Auto) Baso % (Auto) Absolute Neuts (auto) Absolute Lymphs (auto) Nucleated RBC % Sodium Potassium Chloride Carbon Dioxide Anion Gap BUN Creatinine Estim Creat Clear Calc Est GFR (MDRD) Af Amer Est GFR (MDRD) Non-Af BUN/Creatinine Ratio Glucose Calcium Total Bilirubin 0.90 Direct Bilirubin 0.29 AST 51 H ALT 67 H Alkaline Phosphatase 131 H Total Protein 7.7 Albumin 3.8 Globulin 3.9 Lipase 9420 H Serum , Qual Urine Color Yellow Urine Clarity Cloudy Urine pH 6.0 Ur Specific [place] 1.020 Urine Protein 100 H Urine Glucose (UA) Normal Urine Ketones 150 A* Urine Occult Blood 10 H Urine Nitrite Positive H Urine Bilirubin 1 H Urine Urobilinogen 1 H Ur Leukocyte Esterase 25 H Urine RBC 0 SEEN Urine WBC 0-5 SEEN Ur Squamous Epith Cells 5-10 SEEN Urine Bacteria 4+ Urine Mucus 0 SEEN Radiography Diagnostic Testing: Clinical Impression(s) from Imaging Studies Abdomen/Pelvis CT 07/28/22 07:31 IMPRESSION: Findings in keeping with acute pancreatitis as described. Focal nonocclusive thrombus at the junction of the superior mesenteric vein and portal vein as described. Hepatomegaly and fatty infiltration of the liver. 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 N.B. : The above Results were Read Back by Christos Krause MD to Sal Cottrell DO, and understanding confirmed on 07/28/2022 10:02:19 (ET). Electronically Signed: Christos Krause MD at 10:03 EST , ADDENDUM: 07/28/22 1010 IMPRESSION: Findings in keeping with acute pancreatitis as described. Focal nonocclusive thrombus at the junction of the superior mesenteric vein and portal vein as described. Hepatomegaly and fatty infiltration of the liver. 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 N.B. : The above Results were Read Back by Christos Krause MD to Sal Cottrell DO, and understanding confirmed on 07/28/2022 10:02:19 (ET). Electronically Signed: Christos Krause MD at 10:03 EST , CT scan of the abdomen and pelvis was obtained. There is evidence of acute pancreatitis. There is also hepatomegaly and fatty infiltration of the liver. There are varices seen in the splenic hilum. There is also a nonocclusive thrombus at the junction of the superior mesenteric vein and portal vein. This was interpreted by the radiologist and was also independently reviewed by myself. Treatment and Re-Evaluation Narrative: Patient was given IV fluids, morphine, and Zofran. Patient was given a dose of oral potassium. Patient was given a repeat dose of morphine. Case was discussed with the hospitalist. She will admit the patient to her service. Patient understood and was agreeable with the plan. All questions were answered. Discharge Plan Triage Chief Complaint: Abd Pain ED Provider: Sal Cottrell Dx/Rx/DC Orders Clinical Impression: Acute alcoholic pancreatitis, Superior mesenteric vein thrombosis, Alcohol abuse Prescriptions: No Action sennosides-docusate sodium [Stool Softener-Stimulant Laxat] 8.6-50 mg Tablet 2 tab PO BID PRN (Reason: constipation) Qty: 60 0RF amlodipine 10 mg Tablet 10 mg PO DAILY Qty: 30 0RF Rx Instructions: Hold for SBP less than 130 mmHg sucralfate [Carafate] 100 mg/mL suspension 10 ml PO BID 30 Days Qty: 600 0RF omeprazole 40 mg capsule,delayed release(DR/EC) 40 mg PO DAILY Qty: 30 1RF ondansetron 4 mg tablet,disintegrating 4 mg PO Q8H PRN (Reason: nausea and vomiting) Qty: 30 0RF Primary Care Provider: Care Physician,No Primary Referrals: Care Physician,No Primary [Primary Care Provider] - Disposition Disposition: Acute Care [facility]
[2022-07-28 07:26] LABS: Color, Urine Yellow (Yellow); Glucose, Dipstick Normal (Normal); Leukocyte Esterase-Dipstick 25 /ul (Negative); Nitrite-Dipstick Positive (Negative); Occult Blood-Urine 10 /ul (Negative); Protein-Dipstick 100 mg/dl (Negative); Urine Clarity Cloudy (Clear); Urine Urobilinogen 1 mg/dl (Normal)
--- NOTE | 2022-07-28 07:31 | CT_ITS ---
STUDY: CT ABDOMEN AND PELVIS WITH CONTRAST REASON FOR EXAM: Female, 42 years old. Upper abdominal pain. Possible pancreatitis. RADIATION DOSAGE (If Supplied By Facility): CTDIvol = ( 7.67 ) mGy, DLP = ( 310.28 ) mGycm TECHNIQUE: Transaxial images were obtained from the dome of the diaphragm to the symphysis pubis with oral contrast. Oral and amp;amp; IV Gastrografin and amp;amp; 100mL Isovue-300 was administered. Sagittal and coronal images were reconstructed. Individualized dose optimization techniques were used for this CT. COMPARISON: Comparison is made with prior study dated 12/13/2021. FINDINGS: Mild degree of increased linear markings at the lung bases suggestive of atelectasis. Pectus excavatum deformity. The visualized portions of the heart are within normal limits. There is decreased attenuation of the liver consistent with steatosis. Borderline hepatomegaly. Normal gallbladder and extrahepatic biliary system. Normal spleen. There is diffuse enlargement of the pancreas with ivory-pancreatic edema suggesting acute pancreatitis. There is evidence of intraluminal thrombus at the junction of the superior mesenteric vein as it enters the portal vein. This is not occlusive in nature. There is evidence of varicosities in the region of the splenic flexure. Normal bilateral adrenal glands. Normal right kidney. Normal left kidney. Normal visualized stomach. Normal small intestine. Normal colon. The appendix is visualized and appears normal. There is scattered atherosclerotic calcification of the abdominal aorta, without a demonstrated aneurysm. Normal inferior vena cava. Normal retroperitoneum. Normal urinary bladder. Tubal ligation clips are seen in the pelvis. Normal abdominal wall. Normal osseous structures. CT/Abdomen/Pelvis WITH Contrast IMPRESSION: Findings in keeping with acute pancreatitis as described. Focal nonocclusive thrombus at the junction of the superior mesenteric vein and portal vein as described. Hepatomegaly and fatty infiltration of the liver. 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 N.B. : The above Results were Read Back by Christos Krause MD to Sal Cottrell DO, and understanding confirmed on 07/28/2022 10:02:19 (ET). Electronically Signed: Christos Krause MD at 10:03 EST ,
[2022-07-28 07:35] LABS: Urine Bilirubin Dipstick 1 mg/dL (Negative)
[2022-07-28 07:36] LABS: Ketone-Dipstick 150 mg/dl (Negative)
[2022-07-28 07:40] LABS: Bacteria 4+ /hpf (None Seen); Squamous Epithelial Cells - UA 5-10 SEEN /hpf (5-10); White Blood Cells 0-5 SEEN /hpf (0-5)
[2022-07-28] MEDS: Morphine 4 MG/ML Syringe IV ×2 (07:44→09:21)
[2022-07-28] MEDS: Ondansetron 4 MG/2 ML Vial IV ×2 (07:44→14:55)
[2022-07-28 07:52] LABS: AST(SGOT) 51 U/L (15-37); Alanine Aminotransfer ALT/SGPT 67 U/L (13-56); Albumin, Serum 3.8 g/dL (3.2-5.0); Alkaline Phosphatase 131 U/L (45-117); Bilirubin, Direct 0.29 mg/dL (0.00-0.30); Globulin 3.9 g/dL (2.2-4.2); Lipase 9420 U/L (73-393); Protein, Total 7.7 g/dL (6.4-8.2)
[2022-07-28] MEDS: Potassium Chloride Oral Tablet 20 MEQ 40 MEQ PO (09:21)
--- NOTE | 2022-07-28 10:13 | MRI_ITS ---
INDICATION: Pancreatitis EXAMINATION: MRI - MR MRCP and Abdomen W/O Contrast TECHNIQUE: Multiplanar and multisequence MR images of the abdomen were obtained with MRCP sequence. Three-dimensional post-processing reconstructions were performed. IV Contrast Dosage and Agent: None. COMPARISON: None. FINDINGS: LIVER: No mass. Normal morphology. Small amount of perihepatic ascites anterior to the right lobe of the liver. GALLBLADDER AND BILIARY TREE: Normal variant phrygian cap. No gallstones. No gallbladder distension or wall edema. The CBD measures 0.68 cm. No evidence of filling defect within the common duct.. The distal common duct tapers normally. No intra- or extrahepatic biliary dilation. No choledochal filling defect. PANCREAS: No mass. No pancreatic duct dilation. SPLEEN: Non-enlarged. ADRENAL GLANDS: No nodules. KIDNEYS the medial upper pole of the left kidney on fat saturation imaging demonstrates a high signal lesion this measures 0.92 cm transverse. This could represent hemorrhagic cyst. Solid mass cannot be excluded. LYMPH NODES: No enlarged periportal or retroperitoneal lymph nodes. VESSELS: Aorta is non-dilated. LOWER CHEST: No pleural effusion. MRI/MRCP Abdomen without Contrast IMPRESSION: Common duct 0.68 cm which is mildly dilated. This could be age-related. Other considerations would include distal common duct stricture, impacted occult a recently passed calculus. Additional considerations would include a cold mass regional to the distal common duct. Increased signal lesion upper pole left kidney 0.92 cm transverse which could represent hemorrhagic cyst, solid mass cannot be excluded. Given patient''s history of pancreatitis and left renal lesion recommendation is for CT without and with contrast if clinically warranted. Normal variant phrygian cap of the gallbladder. Electronically Signed: Riley Dhaliwal MD, KINJAL at 13:30 EST ,
--- NOTE | 2022-07-28 10:41 | PCM.HP.STD ---
HPI - General General Date of Admission: 07/28/22 Date of Service: 07/28/22 Chief Complaint: Abdominal pain/nausea/vomiting HPI Narrative ERWIN GROVES, is a 42 F who presented to the emergency department was [facility] on 07/28/2022 with a chief complaint of upper abdominal pain that began last evening. The patient reported it felt similar to her previous episodes of pancreatitis. She states she has had pancreatitis previously that had been associated with alcohol intake. She does admit to still drinking approximately 2 shots of vodka and cranberry juice twice daily. She also admits to being a heavy smoker. She states the pain started last evening and has worsened since that point time. She now has associated nausea and vomiting has not been able to eat or drink much. She denies any bowel changes and reports normal stool color. She had no fever or chills. No chest pain or shortness of breath. Vital signs on presentation demonstrated temperature of 97, heart rate 106, blood pressure 184/120, respiratory rate 16, oxygen saturation was 99% on room air. CBC showed a leukocytosis that was mild at 11.9 with a mild left shift. Chemistry panel showed hypokalemia with potassium of 2.8 renal function was normal. Liver functions are elevated with an AST of 51 and ALT of 67 along with an alk phos of 131. Her lipase was 9420. A serum test was negative. Her UA does not show infection however does demonstrate some dehydration and she has markedly elevated ketones at 150. CT of the abdomen pelvis was performed and demonstrated findings consistent with acute pancreatitis as well as a focal nonocclusive thrombus at the junction of the superior mesenteric vein and the portal vein, varices in the splenic hilum and hepatomegaly with fatty infiltration of the liver. In the emergency department the patient was placed on aggressive IV fluids, given pain medications and antiemetics and request for admission was made. [facility] Medical History Alcohol abuse Pancreatitis Smoker Home Medications amlodipine 10 mg tablet 10 mg PO DAILY #30 tabs 02/22/22 [Rx Last Taken 07/28/22 03:00] omeprazole 40 mg capsule,delayed release 40 mg PO DAILY #30 caps 02/22/22 [Rx Last Taken 07/28/22 03:00] ondansetron 4 mg disintegrating tablet 4 mg PO Q8H PRN nausea and vomiting #30 tabs 02/22/22 [Rx Last Taken 07/28/22 03:00] sennosides 8.6 mg-docusate sodium 50 mg tablet (Stool Softener-Stimulant Laxative) 2 tab PO BID PRN constipation #60 tabs 02/22/22 [Rx Last Taken Unknown] ibuprofen 200 mg tablet (Motrin IB) 800 mg PO Q4H PRN Pain 07/28/22 [History Last Taken 07/28/22 06:30] sucralfate 100 mg/mL oral suspension (Carafate) 10 ml PO BID PRN GERD 07/28/22 [History Last Taken 07/24/22] Allergy/AdvReac Type Severity Reaction Status Date / Time No Known Allergies Allergy Verified 07/28/22 06:08 no significant family history Surgical History H/O tubal ligation Social History (Updated 07/28/22 @ 10:[address] Jovanna Leonard DO) household members: significant other and children housing: house Smoking Status: Current every day smoker tobacco type: cigarettes alcohol intake: current details: Drinks approximately 4 shots of vodka a day and cranberry juice substance use type: does not use ROS Constitutional Constitutional: Reports anorexia; Denies change in weight, chills, fatigue, fever(s), malaise, night sweats, weakness or other Eyes Eyes: Denies blurry vision, change in eye color, change in vision, discharge from eye(s), double vision, erythema, eye pain, loss of vision or other ENT HEENT: Denies abnormal hearing, dysphagia, ear pain, epistaxis, headache(s), hearing loss, nasal congestion, nasal discharge, post nasal drip, sinus pressure, sore throat or other Cardiovascular Cardiovascular: Denies chest pain, claudication, dyspnea on exertion, edema, lightheadedness, orthopnea, palpitations, paroxysmal nocturnal dyspnea, rapid heart rate, syncope or other Respiratory/Chest Respiratory/Chest: Denies cough, dyspnea, excessive phlegm production, hemoptysis, productive cough, shortness of breath at rest, shortness of breath with exertion, wheezing or other Gastrointestinal Gastrointestinal: Reports abdominal pain, nausea and vomiting; Denies coffee ground emesis, constipation, diarrhea, dyspepsia, hematemesis, hematochezia, loose stools, melena or other Genitourinary Genitourinary: Denies burning urination, difficulty urinating, dysuria, hematuria, nocturia, urinary frequency, urinary hesitancy, urinary incontinence, urinary urgency or other Musculoskeletal Musculoskeletal: Reports back pain; Denies arthralgias, joint pain, joint stiffness, joint swelling, myalgias, neck pain or other Neurologic Neurologic: Denies abnormal gait, abnormal speech, confusion, disequilibrium, dizziness, focal weakness, headache(s), numbness, paresthesias, seizure-like activity, seizures, syncope, tingling, tremor(s) or other Psychiatric Psychiatric: Denies anxiety, depression, homicidal ideation, suicidal ideation or other Endocrine Endocrinology: Denies change in body appearance, cold intolerance, excessive sweating, heat intolerance, polydipsia, polyuria or other Hematologic/Lymphatic Hematologic/Lymphatic: Denies anemia, easy bleeding, easy bruising, lymphadenopathy or other Allergic/Immunologic Allergic/Immunologic: Denies rhinitis, hives, eczemia, asthma or other Vital Signs Vital Signs Vital Signs: 07/28/22 06:06 07/28/22 06:45 07/28/22 10:30 Temperature 97.0 F L 98 F Temperature Source Temporal Temporal Pulse Rate 106 H 93 Respiratory Rate 16 14 Blood Pressure 184/120 H 191/111 H Blood Pressure Mean 141 137 Pulse Ox 99 99 97 Oxygen Delivery Method Room Air Room Air Room Air 07/28/22 10:31 Temperature Temperature Source Pulse Rate Respiratory Rate Blood Pressure 191/115 H Blood Pressure Mean 140 Pulse Ox Oxygen Delivery Method Weight Weight: 60.5 kg Body Mass Index (BMI) 22.8 Physical Exam Const alert, oriented x3 and well nourished Constitutional Narrative: Middle-aged white female who appears much older than stated age, lying in bed, appears uncomfortable but nontoxic, daughter at bedside General Appearance: cooperative HEENT normocephalic, head/scalp atraumatic and hearing grossly normal bilaterally HEENT Narrative: Dentition is poor, Mallampati is 2, no thrush, mucous membranes are dry Eyes PERRL, EOMs intact bilaterally and conjunctivae normal Eyes Narrative: No scleral icterus Neck no lymphadenopathy, supple, no JVD and no carotid bruits Neck Narrative: Trachea midline, no thyroid enlargement Resp Resp Narrative: Diffusely diminished with few scattered end expiratory wheezes, no rhonchi or rales Auscultation: wheezes; Negative for rales or rhonchi Cardio regular rhythm, S1 normal heart sound, S2 normal heart sound, no murmurs, no rub, no gallops and no clicks Cardio Narrative: Mild tachycardia GI normal to inspection, nondistended, normoactive bowel sounds, soft to palpation and non-tender GI Narrative: Marked tenderness in upper abdomen, bowel sounds are hypoactive, no distention, soft Extremity no clubbing, cyanosis or edema Extremity Narrative: 2+ pedal pulses Skin no rashes or lesions noted, no wounds, skin turgor normal, no jaundice, no petechiae and no mottling Neuro oriented x3, CN's II-XII intact bilaterally, moves all extremities and no focal motor deficits Neuro Narrative: No sensory deficits Speech: speech normal Psych Psych Narrative: Affect is flat, eye contact is good, mood seems depressed Results Lab / Micro Data Attestation: I reviewed the patient's lab results. Result Diagrams: 07/28/22 06:20 07/28/22 06:20 Labs: Laboratory Results - last 24 hr 07/28/22 06:20: WBC 11.9 H, RBC 4.55, Hgb 14.9, Hct 44.3, MCV 97.4, MCH 32.7 H, MCHC 33.6, RDW Std Deviation 49.1 H, RDW Coeff of Frankie 13.5, Plt Count 267, MPV 10.1, Immature Gran % (Auto) 0.300, Neut % (Auto) 82.5 H, Lymph % (Auto) 9.9 L, [place] % (Auto) 5.6, Eos % (Auto) 1.1, Baso % (Auto) 0.6, Absolute Neuts (auto) 9.8 H, Absolute Lymphs (auto) 1.18, Nucleated RBC % 0 07/28/22 06:20: Sodium 137, Potassium 2.8 L, Chloride 99, Carbon Dioxide 28.0, Anion Gap 10, BUN 11, Creatinine 0.59, Estim Creat Clear Calc 106.17, Est GFR (MDRD) Af Amer 144, Est GFR (MDRD) Non-Af 119, BUN/Creatinine Ratio 18.7, Glucose 138 H, Calcium 9.2 07/28/22 06:20: Serum , Qual NEGATIVE 07/28/22 06:20: Total Bilirubin 0.90, Direct Bilirubin 0.29, AST 51 H, ALT 67 H, Alkaline Phosphatase 131 H, Total Protein 7.7, Albumin 3.8, Globulin 3.9, Lipase 9420 H 07/28/22 06:55: Urine Color Yellow, Urine Clarity Cloudy, Urine pH 6.0, Ur Specific [place] 1.020, Urine Protein 100 H, Urine Glucose (UA) Normal, Urine Ketones 150 A*, Urine Occult Blood 10 H, Urine Nitrite Positive H, Urine Bilirubin 1 H, Urine Urobilinogen 1 H, Ur Leukocyte Esterase 25 H, Urine RBC 0 SEEN, Urine WBC 0-5 SEEN, Ur Squamous Epith Cells 5-10 SEEN, Urine Bacteria 4+, Urine Mucus 0 SEEN Radiology Impression Abdomen/Pelvis CT 07/28/22 07:31 IMPRESSION: Findings in keeping with acute pancreatitis as described. Focal nonocclusive thrombus at the junction of the superior mesenteric vein and portal vein as described. Hepatomegaly and fatty infiltration of the liver. 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 N.B. : The above Results were Read Back by Christos Krause MD to Sal Cottrell DO, and understanding confirmed on 07/28/2022 10:02:19 (ET). Electronically Signed: Christos Krause MD at 10:03 EST , ADDENDUM: 07/28/22 1010 IMPRESSION: Findings in keeping with acute pancreatitis as described. Focal nonocclusive thrombus at the junction of the superior mesenteric vein and portal vein as described. Hepatomegaly and fatty infiltration of the liver. 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 N.B. : The above Results were Read Back by Christos Krause MD to Sal Cottrell DO, and understanding confirmed on 07/28/2022 10:02:19 (ET). Electronically Signed: Christos Krause MD at 10:03 EST , Assessment & Plan Assessment/Plan (1) Pancreatitis: (2) Transaminitis: (3) Superior mesenteric vein thrombosis: (4) Hypokalemia: (5) Leukocytosis: (6) Nausea & vomiting: PLAN: Plan Acute pancreatitis -Etiology is unclear at this time -Pattern of liver enzyme elevation is not consistent with alcoholic hepatitis -Check MRCP -N.p.o. -Aggressive hydration with LR at 250 cc/h -As needed pain medication -Antiemetics as needed -Consult GI Portal and superior mesenteric vein thrombosis -Check hypercoag panel -No family history or personal history of clotting -Start heparin drip--> monitor closely with acute pancreatitis -Plan to transition to oral agent once pancreas calms down and there is no clear need for any intervention -Case discussed with both GI and vascular surgery -Per vascular surgery no need for surgical intervention Leukocytosis -Very mild -Suspect reactive -Monitor closely Nausea and vomiting -Antiemetics as noted above -Likely related to acute pancreatitis Hypokalemia -40 mEq p.o. potassium given the emergency department -With gut rest we will give another 40 mEq IV -Repeat BMP in a.m. -Check a.m. magnesium History of GERD -Hold omeprazole -Hold Carafate -IV Protonix 40 twice daily Hypertension -Hold amlodipine -As needed hydralazine for systolic blood pressure greater than 160 Alcohol abuse -Patient drinks approximately 4 shots a day of vodka -Last drink was yesterday afternoon at 3 -No current withdrawal issues -CIWA with as needed IV Ativan -May need more extensive medication for detox with phenobarbital depending on symptoms-monitor closely -IV thiamine 200 daily x3 days -IV folic acid 1 g daily Tobacco abuse -Patient heavy smoker -Recommend tobacco cessation -Nicotine patch-21 mcg while hospitalized DVT prophylaxis -Full anticoagulation with heparin CODE STATUS -Full code Charges/Coding Visit Charges Inpatient E&M: 45662 Init Hosp L3
[2022-07-28] MEDS: HYDROmorphone 1 MG/ML Syringe 0.5 MG IV (10:49)
--- NOTE | 2022-07-28 11:24 | CM.ED ---
SW Note Referral Source: Case Find Referral Reason: No Primary Care Physician (PCP) SW reviewed chart and noted that patient has no PCP. SW provided patient with list of [facility] and [facility] Physician List for reference. SW also provided patient with handout ?Where to go When?. No other issues or concerns voiced at this time. SW remains available for any additional needs. Plan: Provided patient with PCP information Marie NIETO
[2022-07-28] MEDS: Labetalol (Prefilled) 20 MG/4 ML 10 MG IV (11:28)
[2022-07-28] MEDS: HYDROmorphone 1 MG/ML Syringe IV ×4 (12:25→21:20)
--- NOTE | 2022-07-28 12:33 | NURSING ---
went down for MRI via bed
[2022-07-28] MEDS: Heparin Injection (Vial) 5,000 UNIT/ML VIAL 4000 UNIT IV (13:28)
[2022-07-28] MEDS: Lactated Ringers 1,000 ML 250 ML IV ×3 (13:30→21:10)
[2022-07-28] MEDS: HEPARIN/D5w 25,000 UNITS 25,000 UNITS/250 ML IV.SOLN. 8 UNITS CONT INF (13:31)
[2022-07-28] MEDS: hydrALAZINE 20 MG/ML Vial 10 MG IV ×2 (13:59→20:01)
[2022-07-28] MEDS: Potassium Chloride 10mEq/100mL 10 MEQ/100 ML IV.SOLN. 100 MEQ IV BOLUS ×4 (14:06→18:09)
[2022-07-28] MEDS: 0.9% Saline Lock 10 ML Syringe IV ×3 (14:49→19:51)
--- NOTE | 2022-07-28 16:50 | CPS ---
patient not started, just came from surgery and asleep
[2022-07-28] MEDS: LORazepam 2 MG/ML Syringe 1 MG IV (17:34)
[2022-07-28] MEDS: Metoclopramide 10 MG/2 ML Vial 5 MG IV ×2 (17:38→23:23)
--- NOTE | 2022-07-28 17:45 | CON.PCM.GI_ITS ---
HPI Consult Data Date of Consult: 07/28/22 HPI Narrative Reason for Consultation: pancreatitis HPI Narrative: ERWIN GROVES, is a 42 F who presents with abdominal pain that began yesterday.? She has a past medical history of alcoholic hepatitis and alcoholic pancreatitis without history of cirrhosis. She was last in the hospital [facility] 4 months ago with alcoholic pancreatitis. She drinks approximately 30 g of alcohol per day. In the ED she was discovered to have Total Bilirubin 0.90, Direct Bilirubin 0.29, AST 51 H, ALT 67 H, Alkaline Phosphatase 131 H, Total Protein 7.7, Albumin 3.8, Globulin 3.9, Lipase 9420 H. Patient states pain is over the upper abdomen.? Patient states it feels similar to prior episodes of pancreatitis.? Patient states it began rather suddenly.? Patient states it has been constant.? Patient describes it as stabbing and aching.? Patient states nothing makes it better nothing makes it worse.? Patient states she started having some nausea and vomiting today.? Patient denies any hematemesis or coffee-ground emesis.? Patient denies any diarrhea, melena, or hematochezia.? Patient denies any urinary complaints.? Patient denies any fevers or chills. She had a CT scan abdomen pelvis that had shown acute pancreatitis, with hepatomegaly and mild splenomegaly along with splenic varices. Also was seen was a large portal vein and splenic vein thrombosis. She was started on heparin drip along with IV fluids at 250 cc an hour. At this time she does complain of some chest pain. [facility] Medical History Alcohol abuse Pancreatitis Smoker Home Medications amlodipine 10 mg tablet 10 mg PO DAILY #30 tabs 02/22/22 [Rx Last Taken 07/28/22 03:00] omeprazole 40 mg capsule,delayed release 40 mg PO DAILY #30 caps 02/22/22 [Rx Last Taken 07/28/22 03:00] ondansetron 4 mg disintegrating tablet 4 mg PO Q8H PRN nausea and vomiting #30 tabs 02/22/22 [Rx Last Taken 07/28/22 03:00] sennosides 8.6 mg-docusate sodium 50 mg tablet (Stool Softener-Stimulant Laxative) 2 tab PO BID PRN constipation #60 tabs 02/22/22 [Rx Last Taken Unknown] ibuprofen 200 mg tablet (Motrin IB) 800 mg PO Q4H PRN Pain 07/28/22 [History Last Taken 07/28/22 06:30] sucralfate 100 mg/mL oral suspension (Carafate) 10 ml PO BID PRN GERD 07/28/22 [History Last Taken 07/24/22] Allergy/AdvReac Type Severity Reaction Status Date / Time No Known Allergies Allergy Verified 07/28/22 13:42 Family History no significant family his Surgical History H/O tubal ligation Social History (Updated 07/28/22 @ 10:[address] Jovanna Leonard DO) household members: significant other and children housing: house Smoking Status: Current every day smoker tobacco type: cigarettes alcohol intake: current details: Drinks approximately 4 shots of vodka a day and cranberry juice substance use type: does not use ROS Constitutional Constitutional: Reports anorexia; Denies change in weight, chills, fatigue, fever(s), malaise, night sweats, weakness or other Eyes Eyes: Denies blurry vision, change in eye color, change in vision, discharge from eye(s), double vision, erythema, eye pain, loss of vision or other ENT HEENT: Denies abnormal hearing, dysphagia, ear pain, epistaxis, headache(s), hearing loss, nasal congestion, nasal discharge, post nasal drip, sinus pres sure, sore throat or other Cardiovascular Cardiovascular: Denies chest pain, claudication, dyspnea on exertion, edema, lightheadedness, orthopnea, palpitations, paroxysmal nocturnal dyspnea, rapid heart rate, syncope or other Respiratory/Chest Respiratory/Chest: Denies cough, dyspnea, excessive phlegm production, hemoptysis, productive cough, shortness of breath at rest, shortness of breath with exertion, wheezing or other Gastrointestinal Gastrointestinal: Reports abdominal pain, nausea and vomiting; Denies coffee ground emesis, constipation, diarrhea, dyspepsia, hematemesis, hematochezia, loose stools, melena or other Genitourinary Genitourinary: Denies burning urination, difficulty urinating, dysuria, hematuria, nocturia, urinary frequency, urinary hesitancy, urinary incontinence, urinary urgency or other Musculoskeletal Musculoskeletal: Reports back pain; Denies arthralgias, joint pain, joint stiffness, joint swelling, myalgias, neck pain or other Neurologic Neurologic: Denies abnormal gait, abnormal speech, confusion, disequilibrium, dizziness, focal weakness, headache(s), numbness, paresthesias, seizure-like activity, seizures, syncope, tingling, tremor(s) or other Psychiatric Psychiatric: Denies anxiety, depression, homicidal ideation, suicidal ideation or other Endocrine Endocrinology: Denies change in body appearance, cold intolerance, excessive sweating, heat intolerance, polydipsia, polyuria or other Hematologic/Lymphatic Hematologic/Lymphatic: Denies anemia, easy bleeding, easy bruising, lymphadenopathy or other Allergic/Immunologic Allergic/Immunologic: Denies rhinitis, hives, eczemia, asthma or other Physical Exam Const alert, oriented x3 and well nourished General Appearance: cooperative HEENT normocephalic, head/scalp atraumatic and hearing grossly normal bilaterally HEENT Narrative: Dentition is poor, Mallampati is 2, no thrush, mucous membranes are dry Eyes PERRL, EOMs intact bilaterally and conjunctivae normal Eyes Narrative: No scleral icterus Neck no lymphadenopathy, supple, no JVD and no carotid bruits Neck Narrative: Trachea midline, no thyroid enlargement Resp Resp Narrative: Diffusely diminished with few scattered end expiratory wheezes, no rhonchi or rales Auscultation: wheezes; Negative for rales or rhonchi Cardio regular rhythm, S1 normal heart sound, S2 normal heart sound, no murmurs, no rub, no gallops and no clicks Cardio Narrative: Mild tachycardia GI normal to inspection, nondistended, normoactive bowel sounds, soft to palpation and non-tender GI Narrative: Marked tenderness in upper abdomen, bowel sounds are hypoactive, no distention, soft Extremity no clubbing, cyanosis or edema Extremity Narrative: 2+ pedal pulses Skin no rashes or lesions noted, no wounds, skin turgor normal, no jaundice, no petechiae and no mottling Neuro oriented x3, CN's II-XII intact bilaterally, moves all extremities and no focal motor deficits Neuro Narrative: No sensory deficits Speech: speech normal Psych Psych Narrative: Affect is flat, eye contact is good, mood seems depressed Lab / Micro Data Result Diagrams: 07/28/22 06:20 07/28/22 06:20 Labs: Laboratory Results - last 24 hr 07/28/22 06:20: WBC 11.9 H, RBC 4.55, Hgb 14.9, Hct 44.3, MCV 97.4, MCH 32.7 H, MCHC 33.6, RDW Std Deviation 49.1 H, RDW Coeff of Frankie 13.5, Plt Count 267, MPV 10.1, Immature Gran % (Auto) 0.300, Neut % (Auto) 82.5 H, Lymph % (Auto) 9.9 L, [place] % (Auto) 5.6, Eos % (Auto) 1.1, Baso % (Auto) 0.6, Absolute Neuts (auto) 9.8 H, Absolute Lymphs (auto) 1.18, Nucleated RBC % 0 07/28/22 06:20: Sodium 137, Potassium 2.8 L, Chloride 99, Carbon Dioxide 28.0, Anion Gap 10, BUN 11, Creatinine 0.59, Estim Creat Clear Calc 106.17, Est GFR (MDRD) Af Amer 144, Est GFR (MDRD) Non-Af 119, BUN/Creatinine Ratio 18.7, Glucose 138 H, Calcium 9.2 07/28/22 06:20: Serum , Qual NEGATIVE 07/28/22 06:20: 07/28/22 06:55: Urine Color Yellow, Urine Clarity Cloudy, Urine pH 6.0, Ur Specific [place] 1.020, Urine Protein 100 H, Urine Glucose (UA) Normal, Urine Ketones 150 A*, Urine Occult Blood 10 H, Urine Nitrite Positive H, Urine Bilirubin 1 H, Urine Urobilinogen 1 H, Ur Leukocyte Esterase 25 H, Urine RBC 0 SEEN, Urine WBC 0-5 SEEN, Ur Squamous Epith Cells 5-10 SEEN, Urine Bacteria 4+, Urine Mucus 0 SEEN 07/28/22 11:15: PT 13.0, INR 1.0, APTT 27.0 Radiology Impression Abdomen/Pelvis CT 07/28/22 07:31 IMPRESSION: Findings in keeping with acute pancreatitis as described. Focal nonocclusive thrombus at the junction of the superior mesenteric vein and portal vein as described. Hepatomegaly and fatty infiltration of the liver. 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 N.B. : The above Results were Read Back by Christos Krause MD to Sal Cottrell DO, and understanding confirmed on 07/28/2022 10:02:19 (ET). Electronically Signed: Christos Krause MD at 10:03 EST , ADDENDUM: 07/28/22 1010 IMPRESSION: Findings in keeping with acute pancreatitis as described. Focal nonocclusive thrombus at the junction of the superior mesenteric vein and portal vein as described. Hepatomegaly and fatty infiltration of the liver. 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 N.B. : The above Results were Read Back by Christos Krause MD to Sal Cottrell DO, and understanding confirmed on 07/28/2022 10:02:19 (ET). Electronically Signed: Christos Krause MD at 10:03 EST , MRCP 07/28/22 10:13 IMPRESSION: Common duct 0.68 cm which is mildly dilated. This could be age-related. Other considerations would include distal common duct stricture, impacted occult a recently passed calculus. Additional considerations would include a cold mass regional to the distal common duct. Increased signal lesion upper pole left kidney 0.92 cm transverse which could represent hemorrhagic cyst, solid mass cannot be excluded. Given patient''s history of pancreatitis and left renal lesion recommendation is for CT without and with contrast if clinically warranted. Normal variant phrygian cap of the gallbladder. Electronically Signed: Riley Dhaliwal MD, KINJAL at 13:30 EST , Assessment & Plan Assessment/Plan (1) Leukocytosis: (2) Transaminitis: PLAN: Transaminitis possibly secondary to alcoholic hepatitis although I suspect that there is some elements of chronic liver disease due to the fact that the ALT is greater than AST. That is not the classic alcoholic hepatitis pattern. Should check labs for chronic hepatitis such as ferritin, transferrin saturation, CPK, anti-smooth muscle antibody, antimitochondrial antibody, viral hepatitis and protein electrophoresis. (3) Pancreatitis: PLAN: Acute alcoholic pancreatitis complicated by thrombosis of the mesenteric vessels. Recommend IV fluids at 250 cc an hour. I am not sure if she is having chest pain secondary to fluid administration. I will check troponins, EKG and chest x-ray. 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 There is a risk of transformation to hemorrhagic pancreatitis. I discussed this with the patient in detail and showed her the pictures of the large thrombosis involving the portal vein and other splenic vasculature. Recommend vascular consultation for possible thrombectomy. I would repeat the CT scan in approximately 3 days to see if there is any improvement in the thrombosis. Charges/Coding Visit Charges Inpatient E&M: 43365 Init Hosp L3
--- NOTE | 2022-07-28 17:53 | EKG12_ITS ---
Test Reason : CP Blood Pressure : / mmHG Vent. Rate : 107 BPM Atrial Rate : 107 BPM P-R Int : 138 ms QRS Dur : 074 ms QT Int : 370 ms P-R-T Axes : 067 008 055 degrees QTc Int : 493 ms Sinus tachycardia Septal infarct , age undetermined Abnormal ECG When compared with ECG of 19-FEB-2022 11:53, No significant change was found Confirmed by HANNAH TEMPLETON, STEFANI ([id number]), editor managing director CONNIE REYES ([id number]) on 08/02/2022 10:11:21 AM Referred By: FRIEND Confirmed By:STEFANI YOUNG MD
--- NOTE | 2022-07-28 18:05 | RAD_ITS ---
INDICATION: chest pain EXAMINATION/TECHNIQUE: X-RAY - XR Chest 1 View COMPARISON: 12/13/2021. FINDINGS: The lungs are clear. The cardiomediastinal silhouette is unremarkable. No pleural effusion or pneumothorax. No acute osseous abnormalities. RAD/Chest 1 View (Portable) IMPRESSION: No acute radiographic abnormalities. Electronically Signed: Xander Arora MD at 20:15 EST ,
[2022-07-28 18:22] LABS: Troponin-I HS 7 pg/mL (3.0-54.0)
[2022-07-28 20:13] LABS: Partial Thromboplast Time 44.7 Seconds (24.1-36.2)
[2022-07-28] MEDS: Heparin Injection (Vial) 5,000 UNIT/ML VIAL IV (21:08)
[2022-07-29] VITALS (13 sets, daily range): BP systolic 128–164; BP diastolic 82–106; PULSE 98–117; RESP 18–20; TEMP 36.7–37.8; O2SAT 92–98
[2022-07-29] MEDS: HYDROmorphone 1 MG/ML Syringe IV ×8 (00:28→23:48)
[2022-07-29 01:30] LABS: Partial Thromboplast Time 50.3 Seconds (24.1-36.2)
[2022-07-29] MEDS: Lactated Ringers 1,000 ML 250 ML IV ×6 (01:31→23:53)
[2022-07-29] MEDS: Heparin Injection (Vial) 5,000 UNIT/ML VIAL IV ×2 (01:41→09:57)
[2022-07-29] MEDS: LORazepam 2 MG/ML Syringe IV (03:17)
[2022-07-29] MEDS: Ondansetron 4 MG/2 ML Vial IV (03:17)
[2022-07-29 06:00] LABS: Absolute Lymphocyte Count 0.88 X10^3/uL (0.83-4.51); Absolute Neutrophil Count 11.9 X10^3/uL (2.0-7.7); Basophil# 0.04 X10^3/uL; Basophil% 0.3 % (0-1); Eosinophil# 0.08 X10^3/uL; Eosinophils% 0.6 % (0-5); Hematocrit 45.4 % (37-47); Lymphocyte # 0.88 X10^3/ul (0.83-4.51); Lymphocyte % 6.3 % (19-41); Mean Corpuscular Hgb 32.6 pg (27.0-32.0); Mean Corpuscular Volume 98.7 fL (81-99); Mean Platelet Vol. 11.1 fl (6.2-12.0); Monocyte# 0.88 X10^3/uL; Monocyte% 6.3 % (0-10); NRBC Flagged by Analyzer 0 % (0-5); Neutrophil # 11.91 X10^3/uL (2.7-7.7); Neutrophil % 85.9 % (47-70); Platelet Count 209 K/mm3 (150-450); RBC Distribution Width CV 13.5 % (11.6-14.6); RBC Distribution Width SD 49.4 fl (35.1-43.9); White Blood Count 13.9 K/mm3 (4.4-11.0)
[2022-07-29] MEDS: Metoclopramide 10 MG/2 ML Vial 5 MG IV ×4 (06:03→23:36)
[2022-07-29 06:35] LABS: Albumin, Serum 3.5 g/dL (3.2-5.0); BUN 3 mg/dL (7-18); BUN/Creat Ratio 6.5 RATIO (10-20); Creatinine, Serum 0.46 mg/dL (0.55-1.02); EST Glomerular Filtration Rate 157 mL/min (>60); Est Glom Filt Rate - Afr Amer 190 mL/min (>60); Estimated Creatinine Clearance 136.17 ml/min; Glucose 118 mg/dL (74-106); Protein, Total 7.5 g/dL (6.4-8.2)
[2022-07-29 06:36] LABS: ALB/GLOB Ratio 0.9 RATIO (0.9-2.4); AST(SGOT) 40 U/L (15-37); Alanine Aminotransfer ALT/SGPT 52 U/L (13-56); Alkaline Phosphatase 127 U/L (45-117); Anion Gap 10 (5-15); Calcium,Total 8.7 mg/dL (8.5-10.1); Chloride 97 mmol/L (98-107); Magnesium 1.3 mg/dL (1.6-2.6); Phosphorus 2.8 mg/dL (2.5-4.9); Sodium Level 134 mmol/L (136-145)
[2022-07-29] MEDS: 0.9% Saline Lock 10 ML Syringe IV ×9 (06:39→23:36)
[2022-07-29 07:43] LABS: Amylase 520 U/L (25-115); Lipase 4586 U/L (73-393)
[2022-07-29] MEDS: Magnesium Sulfate 4gm/100mL 4 GM/100 ML IV.SOLN. IV (08:07)
[2022-07-29] MEDS: Potassium Chloride 10mEq/100mL 10 MEQ/100 ML IV.SOLN. 100 MEQ IV BOLUS ×4 (08:13→12:28)
[2022-07-29 08:51] LABS: Partial Thromboplast Time 39.5 Seconds (24.1-36.2)
[2022-07-29] MEDS: proCHLORPERazine 10 MG/2 ML Vial 5 MG IV (09:59)
--- NOTE | 2022-07-29 11:20 | CASEMGMT ---
RN CAMRON Assessment: Face to Face with pt for initial transition planning/care coordination assessment. RN CAMRON introduced self and role at [facility], pt voices understanding and consents to assessment. Pt is A/O x4 and answers all questions appropriately at this time. Pt sitting up in bed in no distress with two daughters and grandson at bedside. Pt agreeable to answering questions with family present. Nurse at bedside. Care providers, pharmacy, and demographics verified/updated. Admitting Dx: pancreatitis PCP:Pt denies. Pt denied local healthcare provider directory stating she has one at home. Specialists:Pt denies. She states she was supposed to follow up with from last hospital stay, but she has not. Asked pt if this RN CM could assist her in setting up appointments for PCP or follow up and she declined stating she will do herself. Preferred Pharmacy: [facility] Insurance: [facility] Prescription Benefit: yes LNOK: Kathy Shane, mother Living Arrangements: Pt lives with mother and dtr in a single story house with 4 steps to enter. Pt reports she is I in ADL's and denies concerns at home. Transportation: Pt drives self and denies concerns with transportation. DME/HHC/SNF: Pt denies having any DME,previous HHC or SNF stays. Pt states no concerns with going home at time of dc. Pt states no further concerns/needs. CM to follow. Advised pt to ask CM if any further question/concerns/needs arise, voices understanding. Pt Goal: Home Plan: Home
--- NOTE | 2022-07-29 11:43 | PCM.PN.HOSP ---
Reason for Visit Reason for Visit: Abdominal pain Subjective Subjective Patient states she is feeling a little bit better. Still utilizing quite a bit of Dilaudid for pain control. Pain still radiating to her back. Patient admits she is passing flatus. No bowel movement. I explained that she is high risk for development of an ileus so we will have to make sure she continues to have flatus. Objective Data Objective Data Vital Signs: Vital Signs Temp Pulse Resp BP Pulse Ox O2 Del Method O2 Flow Rate 98.0 F 114 H 20 H 144/93 H 94 Room Air 2 07/29/22 08:11 07/29/22 08:11 07/29/22 08:11 07/29/22 08:11 07/29/22 09:15 07/29/22 09:15 07/28/22 18:05 Oxygen Flow Rate (L/min) 2 Oxygen Delivery Method Room Air Weight: 61.689 kg Body Mass Index (BMI) 23.3 Intake & Output: Intake and Output for Last 24 Hours 07/27/22 07/28/22 07/29/22 23:59 23:59 23:59 Intake Total 3318.83 / 3318.83 3322.43 / 3322.43 Output Total 200 / 200 Balance 3318.83 / 3318.83 3122.43 / 3122.43 Lab / Micro Data Result Diagrams: 07/29/22 04:57 07/29/22 04:57 Labs: Laboratory Results - last 24 hr 07/28/22 17:45: Troponin I High Sens 7 07/28/22 19:32: APTT 44.7 H 07/29/22 01:10: APTT 50.3 H 07/29/22 04:57: WBC 13.9 H, RBC 4.60, Hgb 15.0, Hct 45.4, MCV 98.7, MCH 32.6 H, MCHC 33.0, RDW Std Deviation 49.4 H, RDW Coeff of Frankie 13.5, Plt Count 209, MPV 11.1, Immature Gran % (Auto) 0.600, Neut % (Auto) 85.9 H, Lymph % (Auto) 6.3 L, [place] % (Auto) 6.3, Eos % (Auto) 0.6, Baso % (Auto) 0.3, Absolute Neuts (auto) 11.9 H, Absolute Lymphs (auto) 0.88, Nucleated RBC % 0 07/29/22 04:57: Sodium 134 L, Potassium 3.0 L, Chloride 97 L, Carbon Dioxide 27.0, Anion Gap 10, BUN 3 L, Creatinine 0.46 L, Estim Creat Clear Calc 136.17, Est GFR (MDRD) Af Amer 190, Est GFR (MDRD) Non-Af 157, BUN/Creatinine Ratio 6.5 L, Glucose 118 H, Calcium 8.7, Phosphorus 2.8, Magnesium 1.3 L, Total Bilirubin 0.60, AST 40 H, ALT 52, Alkaline Phosphatase 127 H, Total Protein 7.5, Albumin 3.5, Globulin 4.0, Albumin/Globulin Ratio 0.9, TSH 2.20 07/29/22 04:57: Amylase 520 H, Lipase 4586 H 07/29/22 07:40: APTT 39.5 H Radiography Diagnostic Testing: Radiology Impression MRCP 07/28/22 10:13 IMPRESSION: Common duct 0.68 cm which is mildly dilated. This could be age-related. Other considerations would include distal common duct stricture, impacted occult a recently passed calculus. Additional considerations would include a cold mass regional to the distal common duct. Increased signal lesion upper pole left kidney 0.92 cm transverse which could represent hemorrhagic cyst, solid mass cannot be excluded. Given patient''s history of pancreatitis and left renal lesion recommendation is for CT without and with contrast if clinically warranted. Normal variant phrygian cap of the gallbladder. Electronically Signed: Riley Dhaliwal MD, KINJAL at 13:30 EST , Chest X-Ray 07/28/22 18:05 IMPRESSION: No acute radiographic abnormalities. Electronically Signed: Xander Arora MD at 20:15 EST , Physical Exam Const alert, oriented x3 and well nourished Constitutional Narrative: Middle-aged white female who appears much older than stated age, sitting up in bed, appears ill and and somewhat uncomfortable but nontoxic General Appearance: cooperative HEENT normocephalic, head/scalp atraumatic and hearing grossly normal bilaterally HEENT Narrative: Mallampati is 2-3, dentition is fair, no thrush, mucous membranes are moist Resp normal respiratory effort, no retractions, no use of accessory muscles and No clear to auscultation bilaterally Resp Narrative: Diffusely diminished with scattered end expiratory wheezes with scattered rhonchi that improved with cough Auscultation: rhonchi and wheezes; Negative for rales Cardio regular rate, regular rhythm, S1 normal heart sound, S2 normal heart sound, no murmurs, no rub, no gallops and no clicks GI normal to inspection, nondistended, normoactive bowel sounds, soft to palpation and non-tender GI Narrative: Marked tenderness in upper abdomen, bowel sounds are hypoactive, no distention, soft Extremity no clubbing, cyanosis or edema Extremity Narrative: 2+ pedal pulses Neuro oriented x3, moves all extremities and no focal motor deficits Neuro Narrative: No sensory deficits Speech: speech normal Psych Psych Narrative: Affect is flat, eye contact is good, mood seems depressed Assessment & Plan Assessment/Plan (1) Pancreatitis: (2) Transaminitis: (3) Superior mesenteric vein thrombosis: (4) Hypokalemia: (5) Leukocytosis: (6) Nausea & vomiting: (7) Hypomagnesemia: PLAN: Plan Acute pancreatitis -Etiology is unclear at this time -Pattern of liver enzyme elevation is not consistent with alcoholic hepatitis -MRCP demonstrated a mildly dilated common duct at 0.68, increased signal in the upper pole of the left kidney -Continue n.p.o. -Continue aggressive hydration with LR at 250 cc/h -Renal function is good -As needed pain medication -Antiemetics as needed -GI is following--> lab ordered -? Need for ERCP with above abnormality on MRCP Portal and superior mesenteric vein thrombosis -hypercoag panel is pending -No family history or personal history of clotting -Continue heparin drip -Repeat CT a recommended in 3 days to see if there is any improvement in thrombosis -Plan to transition to oral agent once pancreas calms down and there is no clear need for any intervention -Case discussed with both GI and vascular surgery -Per vascular surgery no need for surgical intervention or consultation -Discussed with GI Left kidney abnormality -CT recommended however I do not want to give her any contrast right now with her acute pancreatitis and potential for renal complications despite aggressive hydration -We will obtain ultrasound of the kidneys to further clarify Leukocytosis -Very mild -Suspect reactive -Trending down -Monitor closely Nausea and vomiting -Antiemetics as noted above -Likely related to acute pancreatitis Hypokalemia - patient was given 80 total mill equivalents yesterday -Potassium remains low -Repeat potassium IV bolus again today -Recheck in a.m. -Replace magnesium -Repeat BMP in a.m. Hypomagnesemia -4 g bolus -Repeat mag level in a.m. History of GERD -Hold omeprazole -Hold Carafate -IV Protonix 40 twice daily Hypertension -Hold amlodipine -Blood pressures are consistently fairly high -We will schedule enalaprilat 0.625 every 6 hours -Continue as needed hydralazine for systolic blood pressure greater than 160 Alcohol abuse -Patient drinks approximately 4 shots a day of vodka -Last drink was afternoon at 3 p.m. on 07/27/2022 -No current withdrawal issues -CIWA with as needed IV Ativan -May need more extensive medication for detox with phenobarbital depending on symptoms-monitor closely -IV thiamine 200 daily x3 days -IV folic acid 1 g daily -No current signs of acute withdrawal Tobacco abuse -Patient heavy smoker -Recommend tobacco cessation -Nicotine patch-21 mcg while hospitalized DVT prophylaxis -Full anticoagulation with heparin CODE STATUS -Full code Charges/Coding Visit Charges Inpatient E&M: 22821 Subs Hosp L2
[2022-07-29] MEDS: Enalaprilat 1.25 MG/ML Vial 0.625 MG IV ×3 (12:32→23:36)
--- NOTE | 2022-07-29 16:05 | CASEMGMT ---
Social Work SW met with pt and introduced self and role of SW. Pt states she does drink two glasses of Vodka and Canberry every night and has been doing this for years. Pt states she has tried to stop once before but was unsuccessful. SW spoke with pt about programs to assist with alcohol use and provided written resources. Pt was accepting of information but denied making an appointment at this time. Pt states she wants to focus on medical issues. SW spoke with pt regarding correlation and that stopping drinking would help medical help. Pt acknowledges this but continue to refuse appointment with [facility] or another program. MERT George
[2022-07-29] MEDS: HEPARIN/D5w 25,000 UNITS 25,000 UNITS/250 ML IV.SOLN. 12 UNITS CONT INF (16:25)
[2022-07-29 16:41] LABS: Partial Thromboplast Time 81.1 Seconds (24.1-36.2)
--- NOTE | 2022-07-29 16:56 | NURSING ---
This RN is aware of PTT of 81.1 and per Heparin gtt protocol, to decrease rate to 11ml/hr.
--- NOTE | 2022-07-29 17:27 | PCM.PROGNOTE ---
Subjective Subjective She rates her pain at a 7 out of 10. Yesterday was a 10 out of 10. She is urinating a lot but has not had any bowel movements. She still requiring a lot of of narcotics for pain control. Objective Data Objective Data Vital Signs: Vital Signs Temp Pulse Resp BP Pulse Ox O2 Del Method O2 Flow Rate 98.7 F 113 H 19 H 157/99 H 97 Room Air 2 07/29/22 17:21 07/29/22 17:21 07/29/22 17:21 07/29/22 17:21 07/29/22 17:21 07/29/22 17:21 07/28/22 18:05 Oxygen Flow Rate (L/min) 2 Oxygen Delivery Method Room Air Weight: 136 lb 0.015 oz Body Mass Index (BMI) 23.3 Intake & Output: Intake and Output for Last 24 Hours 07/27/22 07/28/22 07/29/22 23:59 23:59 23:59 Intake Total 3318.83 / 3318.83 4611.33 / 4611.33 Output Total 200 / 200 Balance 3318.83 / 3318.83 4411.33 / 4411.33 Lab / Micro Data Result Diagrams: 07/29/22 04:57 07/29/22 04:57 Labs: Laboratory Results - last 24 hr 07/28/22 17:45: Troponin I High Sens 7 07/28/22 19:32: APTT 44.7 H 07/29/22 01:10: APTT 50.3 H 07/29/22 04:57: WBC 13.9 H, RBC 4.60, Hgb 15.0, Hct 45.4, MCV 98.7, MCH 32.6 H, MCHC 33.0, RDW Std Deviation 49.4 H, RDW Coeff of Frankie 13.5, Plt Count 209, MPV 11.1, Immature Gran % (Auto) 0.600, Neut % (Auto) 85.9 H, Lymph % (Auto) 6.3 L, [place] % (Auto) 6.3, Eos % (Auto) 0.6, Baso % (Auto) 0.3, Absolute Neuts (auto) 11.9 H, Absolute Lymphs (auto) 0.88, Nucleated RBC % 0 07/29/22 04:57: Sodium 134 L, Potassium 3.0 L, Chloride 97 L, Carbon Dioxide 27.0, Anion Gap 10, BUN 3 L, Creatinine 0.46 L, Estim Creat Clear Calc 136.17, Est GFR (MDRD) Af Amer 190, Est GFR (MDRD) Non-Af 157, BUN/Creatinine Ratio 6.5 L, Glucose 118 H, Calcium 8.7, Phosphorus 2.8, Magnesium 1.3 L, Total Bilirubin 0.60, AST 40 H, ALT 52, Alkaline Phosphatase 127 H, Total Protein 7.5, Albumin 3.5, Globulin 4.0, Albumin/Globulin Ratio 0.9, TSH 2.20 07/29/22 04:57: Amylase 520 H, Lipase 4586 H 07/29/22 07:40: APTT 39.5 H 07/29/22 15:50: APTT 81.1 H Radiography Diagnostic Testing: Radiology Impression Chest X-Ray 07/28/22 18:05 IMPRESSION: No acute radiographic abnormalities. Electronically Signed: Xander Arora MD at 20:15 EST , Physical Exam Const alert, oriented x3 and well nourished General Appearance: cooperative HEENT normocephalic, head/scalp atraumatic and hearing grossly normal bilaterally Resp normal respiratory effort, no retractions, no use of accessory muscles and No clear to auscultation bilaterally Resp Narrative: Diffusely diminished with scattered end expiratory wheezes with scattered rhonchi that improved with cough Auscultation: rhonchi and wheezes; Negative for rales Cardio regular rate, regular rhythm, S1 normal heart sound, S2 normal heart sound, no murmurs, no rub, no gallops and no clicks GI normal to inspection, nondistended, normoactive bowel sounds, soft to palpation and non-tender GI Narrative: Marked tenderness in upper abdomen, bowel sounds are hypoactive, no distention, soft Extremity no clubbing, cyanosis or edema Extremity Narrative: 2+ pedal pulses Neuro oriented x3, moves all extremities and no focal motor deficits Neuro Narrative: No sensory deficits Speech: speech normal Psych Psych Narrative: Affect is flat, eye contact is good, mood seems depressed Assessment & Plan Assessment/Plan (1) Leukocytosis: (2) Transaminitis: PLAN: Transaminitis possibly secondary to alcoholic hepatitis although I suspect that there is some elements of chronic liver disease due to the fact that the ALT is greater than AST. That is not the classic alcoholic hepatitis pattern. Should check labs for chronic hepatitis such as ferritin, transferrin saturation, CPK, anti-smooth muscle antibody, antimitochondrial antibody, viral hepatitis and protein electrophoresis. (3) Pancreatitis: PLAN: Acute alcoholic pancreatitis complicated by thrombosis of the mesenteric vessels. Recommend IV fluids at 250 cc an hour. I am not sure if she is having chest pain secondary to fluid administration. I will check troponins, EKG and chest x-ray. 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 There is a risk of transformation to hemorrhagic pancreatitis. I discussed this with the patient in detail and showed her the pictures of the large thrombosis involving the portal vein and other splenic vasculature. Recommend vascular consultation for possible thrombectomy. I would repeat the CT scan in approximately 3 days to see if there is any improvement in the thrombosis. (5) Abnormal magnetic resonance cholangiopancreatography (MRCP): PLAN: Findings from MRCP are as follows : common duct 0.68 cm which is mildly dilated.? This could be age-related. Other considerations would include distal common duct stricture, impacted occult a recently passed calculus.? Additional considerations would include a cold mass regional to the distal common duct. Since she has active pancreatitis at this time I do not want to make that worse. Once she is cell settle down we can do an ERCP at a later time. Charges/Coding Visit Charges Inpatient E&M: 45227 Subs Hosp L3
[2022-07-30] MEDS: HYDROmorphone 1 MG/ML Syringe IV ×7 (01:00→21:35)
[2022-07-30] MEDS: Heparin Injection (Vial) 5,000 UNIT/ML VIAL IV (01:53)
[2022-07-30 04:08] VITALS: BP 141/90; PULSE 104; RESP 18; TEMP 37.4; O2SAT 95
[2022-07-30] MEDS: Lactated Ringers 1,000 ML 250 ML IV ×2 (04:11→08:17)
[2022-07-30] MEDS: 0.9% Saline Lock 10 ML Syringe IV ×7 (04:15→21:36)
[2022-07-30] MEDS: Enalaprilat 1.25 MG/ML Vial 0.625 MG IV ×3 (05:08→18:11)
[2022-07-30] MEDS: Metoclopramide 10 MG/2 ML Vial 5 MG IV ×3 (05:09→18:11)
[2022-07-30 07:05] VITALS: O2SAT 95
[2022-07-30 07:24] LABS: Absolute Neutrophil Count 5.6 X10^3/uL (2.0-7.7); Basophil# 0.03 X10^3/uL; Basophil% 0.4 % (0-1); Eosinophil# 0.15 X10^3/uL; Eosinophils% 1.9 % (0-5); Hematocrit 35.6 % (37-47); Hemoglobin 11.6 g/dL (12.0-15.0); Lymphocyte % 16.5 % (19-41); Mean Corp Hgb Conc 32.6 g/dL (32-36); Mean Corpuscular Hgb 32.3 pg (27.0-32.0); Mean Corpuscular Volume 99.2 fL (81-99); Mean Platelet Vol. 10.2 fl (6.2-12.0); Monocyte# 0.74 X10^3/uL; Monocyte% 9.4 % (0-10); NRBC Flagged by Analyzer 0 % (0-5); Neutrophil # 5.62 X10^3/uL (2.7-7.7); Neutrophil % 71.4 % (47-70); Platelet Count 146 K/mm3 (150-450); RBC Distribution Width CV 13.8 % (11.6-14.6); RBC Distribution Width SD 50.4 fl (35.1-43.9); Red Blood Count 3.59 M/mm3 (4.2-5.4); White Blood Count 7.9 K/mm3 (4.4-11.0)
[2022-07-30 08:03] LABS: ALB/GLOB Ratio 0.8 RATIO (0.9-2.4); AST(SGOT) 22 U/L (15-37); Alanine Aminotransfer ALT/SGPT 35 U/L (13-56); Albumin, Serum 2.5 g/dL (3.2-5.0); Alkaline Phosphatase 82 U/L (45-117); Anion Gap 8 (5-15); BUN 2 mg/dL (7-18); BUN/Creat Ratio 6.2 RATIO (10-20); Calcium,Total 8.1 mg/dL (8.5-10.1); Chloride 104 mmol/L (98-107); Creatinine, Serum 0.32 mg/dL (0.55-1.02); EST Glomerular Filtration Rate 237 mL/min (>60); Est Glom Filt Rate - Afr Amer 287 mL/min (>60); Estimated Creatinine Clearance 195.75 ml/min; Glucose 87 mg/dL (74-106); Magnesium 1.8 mg/dL (1.6-2.6); Potassium 2.9 mmol/L (3.5-5.1); Protein, Total 5.5 g/dL (6.4-8.2); Sodium Level 141 mmol/L (136-145)
[2022-07-30 08:10] VITALS: BP 142/89; PULSE 102; RESP 18; TEMP 37.4; O2SAT 93
[2022-07-30 08:22] LABS: Partial Thromboplast Time 80.2 Seconds (24.1-36.2)
--- NOTE | 2022-07-30 10:39 | PCM.PROGNOTE ---
Subjective Subjective Patient's abdominal pain is a little bit better today. She recent 4 out [address] to an 8 out of 10 that is still on the left side radiating to the back she complains of some nausea and some back pain. She denies any chest pain or shortness of breath. She denies any weakness. Objective Data Objective Data Vital Signs: Vital Signs Temp Pulse Resp BP Pulse Ox O2 Del Method O2 Flow Rate 99.3 F H 102 H 18 142/89 H 93 Room Air 2 07/30/22 08:10 07/30/22 08:10 07/30/22 08:10 07/30/22 08:10 07/30/22 08:10 07/30/22 08:35 07/28/22 18:05 Oxygen Flow Rate (L/min) 2 Oxygen Delivery Method Room Air Weight: 136 lb 0.015 oz Body Mass Index (BMI) 23.3 Intake & Output: Intake and Output for Last 24 Hours 07/28/22 07/29/22 07/30/22 23:59 23:59 23:59 Intake Total 3318.83 / 3318.83 6733.49 / 6733.49 2223.1 / 2223.1 Output Total 200 / 200 Balance 3318.83 / 3318.83 6533.49 / 6533.49 2223.1 / 2223.1 Lab / Micro Data Result Diagrams: 07/30/22 07:20 07/30/22 07:20 Labs: Laboratory Results - last 24 hr 07/29/22 15:50: APTT 81.1 H 07/29/22 23:50: APTT 52.0 H 07/30/22 07:20: WBC 7.9, RBC 3.59 L, Hgb 11.6 L, Hct 35.6 L, MCV 99.2 H, MCH 32.3 H, MCHC 32.6, RDW Std Deviation 50.4 H, RDW Coeff of Frankie 13.8, Plt Count 146 L, MPV 10.2, Immature Gran % (Auto) 0.400, Neut % (Auto) 71.4 H, Lymph % (Auto) 16.5 L, [place] % (Auto) 9.4, Eos % (Auto) 1.9, Baso % (Auto) 0.4, Absolute Neuts (auto) 5.6, Absolute Lymphs (auto) 1.30, Nucleated RBC % 0 07/30/22 07:20: Sodium 141, Potassium 2.9 L, Chloride 104, Carbon Dioxide 29.0, Anion Gap 8, BUN 2 L, Creatinine 0.32 L, Estim Creat Clear Calc 195.75, Est GFR (MDRD) Af Amer 287, Est GFR (MDRD) Non-Af 237, BUN/Creatinine Ratio 6.2 L, Glucose 87, Calcium 8.1 L, Magnesium 1.8, Total Bilirubin 0.50, AST 22, ALT 35, Alkaline Phosphatase 82, Total Protein 5.5 L, Albumin 2.5 L, Globulin 3.0, Albumin/Globulin Ratio 0.8 L 07/30/22 07:20: APTT 80.2 H Micro: Microbiology 07/30/22 08:55 Nasal Secretion SARS-CoV-2 Antigen (Rapid) - Final Physical Exam Const alert, oriented x3 and well nourished General Appearance: cooperative HEENT normocephalic, head/scalp atraumatic and hearing grossly normal bilaterally Resp normal respiratory effort, no retractions, no use of accessory muscles and No clear to auscultation bilaterally Resp Narrative: Diffusely diminished with scattered end expiratory wheezes with scattered rhonchi that improved with cough Auscultation: rhonchi and wheezes; Negative for rales Cardio regular rate, regular rhythm, S1 normal heart sound, S2 normal heart sound, no murmurs, no rub, no gallops and no clicks GI normal to inspection, nondistended, normoactive bowel sounds, soft to palpation and non-tender GI Narrative: Marked tenderness in upper abdomen, bowel sounds are hypoactive, no distention, soft Extremity no clubbing, cyanosis or edema Extremity Narrative: 2+ pedal pulses Neuro oriented x3, moves all extremities and no focal motor deficits Neuro Narrative: No sensory deficits Speech: speech normal Psych Psych Narrative: Affect is flat, eye contact is good, mood seems depressed Assessment & Plan Assessment/Plan (1) Leukocytosis: (2) Transaminitis: PLAN: Transaminitis possibly secondary to alcoholic hepatitis although I suspect that there is some elements of chronic liver disease due to the fact that the ALT is greater than AST. That is not the classic alcoholic hepatitis pattern. Should check labs for chronic hepatitis such as ferritin, transferrin saturation, CPK, anti-smooth muscle antibody, antimitochondrial antibody, viral hepatitis and protein electrophoresis. (3) Pancreatitis: PLAN: Acute alcoholic pancreatitis complicated by thrombosis of the mesenteric vessels. Recommend IV fluids at 250 cc an hour. I am not sure if she is having chest pain secondary to fluid administration. I will check troponins, EKG and chest x-ray. 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 There is a risk of transformation to hemorrhagic pancreatitis. I discussed this with the patient in detail and showed her the pictures of the large thrombosis involving the portal vein and other splenic vasculature. Recommend vascular consultation for possible thrombectomy. I would repeat the CT scan today to see if there is any improvement in the thrombosis. (5) Abnormal magnetic resonance cholangiopancreatography (MRCP): PLAN: Findings from MRCP are as follows : common duct 0.68 cm which is mildly dilated.? This could be age-related. Other considerations would include distal common duct stricture, impacted occult a recently passed calculus.? Additional considerations would include a cold mass regional to the distal common duct. Since she has active pancreatitis at this time I do not want to make that worse. Once she is cell settle down we can do an ERCP at a later time. Charges/Coding Visit Charges Inpatient E&M: 92753 Subs Hosp L3
--- NOTE | 2022-07-30 10:48 | CT_ITS ---
INDICATION: pancreatitis and portal vein thrombosis EXAMINATION: CT ABDOMEN AND PELVIS WITH CONTRAST - CT Abdomen And Pelvis W/ Contrast Injection TECHNIQUE: Helically acquired images were obtained of the abdomen and pelvis following IV contrast. A radiation dose optimization technique was used for this scan. IV Contrast dosage and agent: 100 cc of [id number] Oral contrast: None. COMPARISON: CT and MRI dated July 28, 2022 FINDINGS: LOWER CHEST: There are new bilateral pleural effusions associated with lower lobe consolidation. LIVER: The liver is diffusely low in attenuation consistent with fatty infiltration. GALLBLADDER AND BILIARY TREE: No calcified gallstones. No gallbladder distension or wall edema. There is stable dilatation of the common bile duct measuring up to 11.6 mm. PANCREAS: There is prominence of the body and tail of the pancreas associated peripancreatic fluid suggestive of pancreatitis. There is a ill-defined low-attenuation focus within the tail of the pancreas. SPLEEN: Normal size without focal cystic or solid mass. ADRENAL GLANDS: No nodules. KIDNEYS AND URETERS: Normal renal size and position. There is a 2 small to characterize low-attenuation focus within the left kidney which may reflect a cyst. No hydronephrosis. PERITONEUM: There is new free fluid within the pelvis. There is a tubal ligation clip visualized within the pelvis as well. No other fluid collection. BOWEL: No stomach or bowel distension. No focal inflammatory change. There is nonvisualization of the appendix. LYMPH NODES: No enlarged mesenteric or retroperitoneal lymph nodes. VESSELS: Aorta is non-dilated. There is a stable low attenuation filling defect within the portal vein and extending into the superior mesenteric vein consistent with a nonocclusive thrombus. There is a filling defect within the left gonadal vein as well. URINARY BLADDER: Unremarkable. REPRODUCTIVE ORGANS: No pelvic masses. ABDOMINAL WALL: No discrete abdominal or pelvic wall hernia. BONES: No lytic or blastic abnormality. CT/Abdomen/Pelvis W IV Cont ONLY IMPRESSION: Stable nonocclusive portal vein thrombus. Filling defect within the left gonadal vein concerning for a thrombus. Acute pancreatitis associated with a low-attenuation focus within the pancreatic tail, cannot exclude focal necrosis. Fatty infiltration of the liver. Stable dilated common bile duct. New bilateral pleural effusions associated with lower lobe consolidation. Electronically Signed: Elizabeth Multani MD at 15:46 EST ,
[2022-07-30 11:59] LABS: Erythrocyte Sedimentation Rate 24 mm/hr (0-30)
--- NOTE | 2022-07-30 13:40 | PN.HOSP_ITS ---
Reason for Visit Reason for Visit: Abdominal pain/nausea/vomiting Subjective Subjective Patient states she is feeling better. Today is the first day of seen her out of bed and she is walking around the room. Still requiring quite a bit of pain medication. Asking if she can try some ice chips. I did discuss with her the need for an ERCP but we need to get her pancreas to calm down further before that will be proceeded with. At the earliest that would take place is likely Monday. She voiced understanding. She complained of some sore throat and nasal drainage. Objective Data Objective Data Vital Signs: Vital Signs Temp Pulse Resp BP Pulse Ox O2 Del Method O2 Flow Rate 99.3 F H 102 H 18 142/89 H 93 Room Air 2 07/30/22 08:10 07/30/22 08:10 07/30/22 08:10 07/30/22 08:10 07/30/22 08:10 07/30/22 08:35 07/28/22 18:05 Oxygen Flow Rate (L/min) 2 Oxygen Delivery Method Room Air Weight: 61.689 kg Body Mass Index (BMI) 23.3 Intake & Output: Intake and Output for Last 24 Hours 07/28/22 07/29/22 07/30/22 23:59 23:59 23:59 Intake Total 3318.83 / 3318.83 6733.49 / 6733.49 3109.27 / 3109.27 Output Total 200 / 200 Balance 3318.83 / 3318.83 6533.49 / 6533.49 3109.27 / 3109.27 Lab / Micro Data Result Diagrams: 07/30/22 07:20 07/30/22 07:20 Labs: Laboratory Results - last 24 hr 07/29/22 15:50: APTT 81.1 H 07/29/22 23:50: APTT 52.0 H 07/30/22 07:20: WBC 7.9, RBC 3.59 L, Hgb 11.6 L, Hct 35.6 L, MCV 99.2 H, MCH 32.3 H, MCHC 32.6, RDW Std Deviation 50.4 H, RDW Coeff of Frankie 13.8, Plt Count 146 L, MPV 10.2, Immature Gran % (Auto) 0.400, Neut % (Auto) 71.4 H, Lymph % (Auto) 16.5 L, [place] % (Auto) 9.4, Eos % (Auto) 1.9, Baso % (Auto) 0.4, Absolute Neuts (auto) 5.6, Absolute Lymphs (auto) 1.30, Nucleated RBC % 0 07/30/22 07:20: Sodium 141, Potassium 2.9 L, Chloride 104, Carbon Dioxide 29.0, Anion Gap 8, BUN 2 L, Creatinine 0.32 L, Estim Creat Clear Calc 195.75, Est GFR (MDRD) Af Amer 287, Est GFR (MDRD) Non-Af 237, BUN/Creatinine Ratio 6.2 L, Glucose 87, Calcium 8.1 L, Magnesium 1.8, Total Bilirubin 0.50, AST 22, ALT 35, Alkaline Phosphatase 82, Total Protein 5.5 L, Albumin 2.5 L, Globulin 3.0, Albumin/Globulin Ratio 0.8 L 07/30/22 07:20: APTT 80.2 H 07/30/22 11:02: ESR 24 07/30/22 11:02: C-React Prot Ext Range 101.00 H Micro: Microbiology 07/30/22 11:26 Interface Orders Group A Streptococcus Rapid Screen - Preliminary 07/30/22 08:55 Nasal Secretion SARS-CoV-2 Antigen (Rapid) - Final Physical Exam Const alert, oriented x3 and well nourished Constitutional Narrative: Middle-aged white female who appears much older than stated age, walking around her room, watching television, appears less ill and more comfortable, still nontoxic General Appearance: cooperative HEENT normocephalic, head/scalp atraumatic and hearing grossly normal bilaterally HEENT Narrative: Mallampati 2, no thrush Eyes Eyes Narrative: Resp normal respiratory effort, no retractions, no use of accessory muscles and No clear to auscultation bilaterally Resp Narrative: Diffusely diminished with scattered end expiratory wheezes, rhonchi have resolved Auscultation: wheezes; Negative for rales or rhonchi Cardio regular rate, regular rhythm, S1 normal heart sound, S2 normal heart sound, no murmurs, no rub, no gallops and no clicks Cardio Narrative: GI normal to inspection, nondistended, normoactive bowel sounds and soft to palpation GI Narrative: Marked tenderness in upper abdomen, bowel sounds are hypoactive, no distention, soft Extremity no clubbing, cyanosis or edema Extremity Narrative: 2+ pedal pulses Neuro oriented x3, moves all extremities and no focal motor deficits Speech: speech normal Psych Psych Narrative: Mood is improved today with less flatness her affect, mood is less depressed as well Assessment & Plan Assessment/Plan (1) Pancreatitis: (2) Transaminitis: (3) Superior mesenteric vein thrombosis: (4) Hypokalemia: (5) Leukocytosis: (6) Nausea & vomiting: (7) Hypomagnesemia: PLAN: Plan Acute pancreatitis -Etiology is unclear at this time -Pattern of liver enzyme elevation is not consistent with alcoholic hepatitis -MRCP demonstrated a mildly dilated common duct at 0.68, increased signal in the upper pole of the left kidney -Continue n.p.o.--> okay for ice chips -Continue aggressive hydration with LR but will decrease rate to 150 from 250 cc/h -Renal function remained stable -As needed pain medication--> reduce as able -Antiemetics as needed -GI is following--> lab ordered -ERCP with abnormality on MRCP once pancreas is more stable -Patient needs complete alcohol cessation Portal and superior mesenteric vein thrombosis -hypercoag panel is pending -No family history or personal history of clotting -Continue heparin drip -Repeat CTA of the abdomen pelvis is pending to reassess portal vein/SMA thrombosis -Plan to transition to oral agent once pancreas calms down and there is no clear need for any intervention -Will need to hold off until after ERCP is completed -Per vascular surgery no need for surgical intervention or consultation -Discussed with GI Left kidney abnormality -CTA of the abdomen pelvis has been ordered for reevaluation of the above but should get us more clarification on this Leukocytosis -Resolved Nausea and vomiting -Resolved Hypokalemia -Potassium remains low despite aggressive replacement -80 mill colons IV potassium -Would preferentially give orally however current situation prohibits -Magnesium is now within normal limits so this should help -Repeat BMP in a.m. Hypomagnesemia - resolved -We will repeat in a.m. and keep a close eye on this as she is n.p.o. History of GERD -Hold omeprazole -Hold Carafate -Continue IV Protonix 40 twice daily Hypertension -Hold amlodipine -Blood pressures are overall improved with scheduled enalaprilat -Continue enalaprilat 0.625 every 6 hours -Continue as needed hydralazine for systolic blood pressure greater than 160 -We will restart home medications when able Alcohol abuse -Patient drinks approximately 4 shots a day of vodka -Last drink was afternoon at 3 p.m. on 07/27/2022 -Patient continues to have no signs of withdrawal -CIWA with as needed IV Ativan -May need more extensive medication for detox with phenobarbital depending on symptoms-monitor closely -IV thiamine 200 daily x3 days--> day 2 of 3 -IV folic acid 1 g daily -No current signs of acute withdrawal Tobacco abuse -Patient heavy smoker -Recommend tobacco cessation -Nicotine patch-21 mcg while hospitalized DVT prophylaxis -Full anticoagulation with heparin CODE STATUS -Full code Charges/Coding Visit Charges Inpatient E&M: 29083 Subs Hosp L2
[2022-07-30 14:00] VITALS: BP 162/96; PULSE 81; RESP 16; TEMP 36.6; O2SAT 96
[2022-07-30] MEDS: Lactated Ringers 1,000 ML 150 ML IV ×2 (14:01→22:58)
[2022-07-30 14:37] LABS: Partial Thromboplast Time 65.6 Seconds (24.1-36.2)
[2022-07-30] MEDS: Potassium Chloride 10mEq/100mL 10 MEQ/100 ML IV.SOLN. 100 MEQ IV BOLUS ×2 (15:14→19:21)
[2022-07-30] MEDS: Potassium Chloride 10mEq/100mL 10 MEQ/100 ML IV.SOLN. 70 MEQ IV BOLUS ×3 (17:35→22:58)
[2022-07-30] MEDS: HEPARIN/D5w 25,000 UNITS 25,000 UNITS/250 ML IV.SOLN. 11 UNITS CONT INF (18:09)
[2022-07-30 18:14] VITALS: BP 161/98; PULSE 85; RESP 18; TEMP 36.6; O2SAT 95
[2022-07-30 20:30] LABS: Partial Thromboplast Time 63.5 Seconds (24.1-36.2)
[2022-07-30 23:55] VITALS: BP 169/102; PULSE 104; RESP 18; TEMP 36.9; O2SAT 93
[2022-07-31] VITALS (7 sets, daily range): BP systolic 147–172; BP diastolic 94–107; PULSE 73–80; RESP 17–18; TEMP 36.4–37.2; O2SAT 95–96
[2022-07-31] MEDS: Enalaprilat 1.25 MG/ML Vial 0.625 MG IV ×2 (00:01→06:39)
[2022-07-31] MEDS: Metoclopramide 10 MG/2 ML Vial 5 MG IV ×4 (00:02→17:57)
[2022-07-31] MEDS: 0.9% Saline Lock 10 ML Syringe IV ×11 (00:50→21:14)
[2022-07-31] MEDS: HYDROmorphone 1 MG/ML Syringe IV ×2 (00:51→04:25)
[2022-07-31] MEDS: Potassium Chloride 10mEq/100mL 10 MEQ/100 ML IV.SOLN. 70 MEQ IV BOLUS ×3 (00:52→04:18)
[2022-07-31] MEDS: Lactated Ringers 1,000 ML 150 ML IV ×3 (04:19→19:33)
[2022-07-31 05:59] LABS: Absolute Lymphocyte Count 1.41 X10^3/uL (0.83-4.51); Absolute Neutrophil Count 5.2 X10^3/uL (2.0-7.7); Basophil# 0.03 X10^3/uL; Basophil% 0.4 % (0-1); Eosinophil# 0.16 X10^3/uL; Eosinophils% 2.1 % (0-5); Hematocrit 33.3 % (37-47); Hemoglobin 11.2 g/dL (12.0-15.0); Lymphocyte # 1.41 X10^3/ul (0.83-4.51); Lymphocyte % 18.6 % (19-41); Mean Corp Hgb Conc 33.6 g/dL (32-36); Mean Corpuscular Volume 98.2 fL (81-99); Mean Platelet Vol. 10.3 fl (6.2-12.0); Monocyte# 0.81 X10^3/uL; Monocyte% 10.7 % (0-10); NRBC Flagged by Analyzer 0 % (0-5); Neutrophil # 5.17 X10^3/uL (2.7-7.7); Neutrophil % 67.9 % (47-70); Platelet Count 150 K/mm3 (150-450); RBC Distribution Width CV 13.5 % (11.6-14.6); RBC Distribution Width SD 48.3 fl (35.1-43.9); Red Blood Count 3.39 M/mm3 (4.2-5.4); White Blood Count 7.6 K/mm3 (4.4-11.0)
[2022-07-31 06:29] LABS: ALB/GLOB Ratio 0.8 RATIO (0.9-2.4); AST(SGOT) 30 U/L (15-37); Alanine Aminotransfer ALT/SGPT 34 U/L (13-56); Albumin, Serum 2.9 g/dL (3.2-5.0); Alkaline Phosphatase 97 U/L (45-117); Anion Gap 9 (5-15); BUN 3 mg/dL (7-18); BUN/Creat Ratio 7.5 RATIO (10-20); Calcium,Total 8.9 mg/dL (8.5-10.1); Chloride 104 mmol/L (98-107); EST Glomerular Filtration Rate 186 mL/min (>60); Est Glom Filt Rate - Afr Amer 225 mL/min (>60); Globulin 3.5 g/dL (2.2-4.2); Glucose 81 mg/dL (74-106); Potassium 3.5 mmol/L (3.5-5.1); Protein, Total 6.4 g/dL (6.4-8.2); Sodium Level 139 mmol/L (136-145)
[2022-07-31] MEDS: HYDROmorphone 0.5 MG/0.5 ML SYRINGE IV ×5 (07:52→21:14)
[2022-07-31] MEDS: Furosemide 40 MG/4 ML Vial IV (11:00)
--- NOTE | 2022-07-31 11:52 | PCM.PROGNOTE ---
Subjective Subjective Patient has been up and walking. She wants something else to eat. She still having back pain and left-sided abdominal pain but it is improved from yesterday. She denies any fevers and nausea. Objective Data Objective Data Vital Signs: Vital Signs Temp Pulse Resp BP Pulse Ox O2 Del Method O2 Flow Rate 98.0 F 76 18 151/100 H 96 Room Air 2 07/31/22 08:00 07/31/22 08:00 07/31/22 08:00 07/31/22 08:00 07/31/22 08:00 07/31/22 11:40 07/28/22 18:05 Oxygen Flow Rate (L/min) 2 Oxygen Delivery Method Room Air Weight: 136 lb 0.015 oz Body Mass Index (BMI) 23.3 Intake & Output: Intake and Output for Last 24 Hours 07/29/22 07/30/22 07/31/22 23:59 23:59 23:59 Intake Total 6733.49 / 6733.49 5061.40 / 5061.40 2419.45 / 2419.45 Output Total 200 / 200 800 / 800 Balance 6533.49 / 6533.49 4261.40 / 4261.40 2419.45 / 2419.45 Lab / Micro Data Result Diagrams: 07/31/22 05:50 07/31/22 05:50 Labs: Laboratory Results - last 24 hr 07/30/22 11:02: ESR 24 07/30/22 14:16: APTT 65.6 H 07/30/22 20:08: APTT 63.5 H 07/31/22 05:50: WBC 7.6, RBC 3.39 L, Hgb 11.2 L, Hct 33.3 L, MCV 98.2, MCH 33.0 H, MCHC 33.6, RDW Std Deviation 48.3 H, RDW Coeff of Frankie 13.5, Plt Count 150, MPV 10.3, Immature Gran % (Auto) 0.300, Neut % (Auto) 67.9, Lymph % (Auto) 18.6 L, [place] % (Auto) 10.7 H, Eos % (Auto) 2.1, Baso % (Auto) 0.4, Absolute Neuts (auto) 5.2, Absolute Lymphs (auto) 1.41, Nucleated RBC % 0 07/31/22 05:50: Sodium 139, Potassium 3.5, Chloride 104, Carbon Dioxide 26.0, Anion Gap 9, BUN 3 L, Creatinine 0.40 L, Estim Creat Clear Calc 156.60, Est GFR (MDRD) Af Amer 225, Est GFR (MDRD) Non-Af 186, BUN/Creatinine Ratio 7.5 L, Glucose 81, Calcium 8.9, Total Bilirubin 0.70, AST 30, ALT 34, Alkaline Phosphatase 97, Total Protein 6.4, Albumin 2.9 L, Globulin 3.5, Albumin/Globulin Ratio 0.8 L 07/31/22 05:50: APTT 60.0 H Micro: Microbiology 07/30/22 11:26 Interface Orders Group A Streptococcus Rapid Screen - Preliminary 07/30/22 08:55 Nasal Secretion SARS-CoV-2 Antigen (Rapid) - Final Radiography Diagnostic Testing: Radiology Impression Abdomen/Pelvis CT 07/30/22 10:48 IMPRESSION: Stable nonocclusive portal vein thrombus. Filling defect within the left gonadal vein concerning for a thrombus. Acute pancreatitis associated with a low-attenuation focus within the pancreatic tail, cannot exclude focal necrosis. Fatty infiltration of the liver. Stable dilated common bile duct. New bilateral pleural effusions associated with lower lobe consolidation. Electronically Signed: Elizabeth Multani MD at 15:46 EST , Physical Exam Const alert, oriented x3 and well nourished General Appearance: cooperative HEENT normocephalic, head/scalp atraumatic and hearing grossly normal bilaterally HEENT Narrative: Mallampati 2, no thrush Eyes Eyes Narrative: Resp normal respiratory effort, no retractions, no use of accessory muscles and No clear to auscultation bilaterally Resp Narrative: Diffusely diminished with scattered end expiratory wheezes, rhonchi have resolved Auscultation: wheezes; Negative for rales or rhonchi Cardio regular rate, regular rhythm, S1 normal heart sound, S2 normal heart sound, no murmurs, no rub, no gallops and no clicks Cardio Narrative: GI normal to inspection, nondistended, normoactive bowel sounds and soft to palpation GI Narrative: Marked tenderness in upper abdomen, bowel sounds are hypoactive, no distention, soft Extremity no clubbing, cyanosis or edema Extremity Narrative: 2+ pedal pulses Neuro oriented x3, moves all extremities and no focal motor deficits Speech: speech normal Psych Psych Narrative: Mood is improved today with less flatness her affect, mood is less depressed as well Assessment & Plan Assessment/Plan (1) Leukocytosis: (2) Transaminitis: PLAN: Transaminitis possibly secondary to alcoholic hepatitis although I suspect that there is some elements of chronic liver disease due to the fact that the ALT is greater than AST. That is not the classic alcoholic hepatitis pattern. Should check labs for chronic hepatitis such as ferritin, transferrin saturation, CPK, anti-smooth muscle antibody, antimitochondrial antibody, viral hepatitis and protein electrophoresis. (3) Pancreatitis: PLAN: Acute alcoholic pancreatitis complicated by thrombosis of the mesenteric vessels. Recommend IV fluids at 150 cc an hour. I am not sure if she is having chest pain secondary to fluid administration. I will give her Lasix due to having effusions from likely IV fluid administration and acute pancreatitis. We may have to switch the IV fluids to a colloid instead of a crystalloid. Her CT scan abdomen pelvis does show likely pancreatic necrosis in the tail of the pancreas. There is no sign of hemorrhagic pancreatitis. I will repeat her ESR, CRP and lactic acid. 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 There is a risk of transformation to hemorrhagic pancreatitis. I discussed this with the patient in detail and showed her the pictures of the large thrombosis involving the portal vein and other splenic vasculature. Repeat CT scan of the abdomen pelvis did not show any occlusive thrombosis of the portal vein which is really good. We would likely need hematology recommendations regarding long-term treatment of superior mesenteric and portal vein thrombosis. There was no sign of varices that were seen on repeat imaging in the stomach. (5) Abnormal magnetic resonance cholangiopancreatography (MRCP): PLAN: Findings from MRCP are as follows : common duct 0.68 cm which is mildly dilated.? This could be age-related. Other considerations would include distal common duct stricture, impacted occult a recently passed calculus.? Additional considerations would include a cold mass regional to the distal common duct. Since she has active pancreatitis at this time I do not want to make that worse. Once she is cell settle down we can do an ERCP at a later time. 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 She continues on anticoagulation. Recommend hematology consultation. Charges/Coding Visit Charges Inpatient E&M: 25859 Subs Hosp L3
[2022-07-31] MEDS: Enalaprilat 1.25 MG/ML Vial IV ×2 (12:24→18:01)
--- NOTE | 2022-07-31 13:29 | PCM.PN.HOSP ---
Reason for Visit Reason for Visit: Abdominal pain/nausea/vomiting Subjective Subjective Patient is feeling better overall. Complaining of some low back pain currently. On exam no flank ecchymosis noted and tenderness on paraspinals. Discussed with patient that we will go ahead and start some muscle relaxant. Sore throat has resolved. Patient states she would like to try to eat something. I indicated that I would start a clear liquid diet. Patient did states she is passing flatus and had a small bowel movement yesterday Objective Data Objective Data Vital Signs: Vital Signs Temp Pulse Resp BP Pulse Ox O2 Del Method O2 Flow Rate 98.3 F 73 17 147/94 H 95 Room Air 2 07/31/22 12:35 07/31/22 12:35 07/31/22 12:35 07/31/22 12:35 07/31/22 12:35 07/31/22 12:35 07/28/22 18:05 Oxygen Flow Rate (L/min) 2 Oxygen Delivery Method Room Air Weight: 61.689 kg Body Mass Index (BMI) 23.3 Intake & Output: Intake and Output for Last 24 Hours 07/29/22 07/30/22 07/31/22 23:59 23:59 23:59 Intake Total 6733.49 / 6733.49 5061.40 / 5061.40 2648.95 / 2648.95 Output Total 200 / 200 800 / 800 Balance 6533.49 / 6533.49 4261.40 / 4261.40 2648.95 / 2648.95 Lab / Micro Data Result Diagrams: 07/31/22 05:50 07/31/22 05:50 Labs: Laboratory Results - last 24 hr 07/30/22 14:16: APTT 65.6 H 07/30/22 20:08: APTT 63.5 H 07/31/22 05:50: WBC 7.6, RBC 3.39 L, Hgb 11.2 L, Hct 33.3 L, MCV 98.2, MCH 33.0 H, MCHC 33.6, RDW Std Deviation 48.3 H, RDW Coeff of Frankie 13.5, Plt Count 150, MPV 10.3, Immature Gran % (Auto) 0.300, Neut % (Auto) 67.9, Lymph % (Auto) 18.6 L, [place] % (Auto) 10.7 H, Eos % (Auto) 2.1, Baso % (Auto) 0.4, Absolute Neuts (auto) 5.2, Absolute Lymphs (auto) 1.41, Nucleated RBC % 0 07/31/22 05:50: Sodium 139, Potassium 3.5, Chloride 104, Carbon Dioxide 26.0, Anion Gap 9, BUN 3 L, Creatinine 0.40 L, Estim Creat Clear Calc 156.60, Est GFR (MDRD) Af Amer 225, Est GFR (MDRD) Non-Af 186, BUN/Creatinine Ratio 7.5 L, Glucose 81, Calcium 8.9, Total Bilirubin 0.70, AST 30, ALT 34, Alkaline Phosphatase 97, Total Protein 6.4, Albumin 2.9 L, Globulin 3.5, Albumin/Globulin Ratio 0.8 L 07/31/22 05:50: APTT 60.0 H Micro: Microbiology 07/30/22 11:26 Interface Orders Group A Streptococcus Rapid Screen - Preliminary 07/30/22 08:55 Nasal Secretion SARS-CoV-2 Antigen (Rapid) - Final Radiography Diagnostic Testing: Radiology Impression Abdomen/Pelvis CT 07/30/22 10:48 IMPRESSION: Stable nonocclusive portal vein thrombus. Filling defect within the left gonadal vein concerning for a thrombus. Acute pancreatitis associated with a low-attenuation focus within the pancreatic tail, cannot exclude focal necrosis. Fatty infiltration of the liver. Stable dilated common bile duct. New bilateral pleural effusions associated with lower lobe consolidation. Electronically Signed: Elizabeth Multani MD at 15:46 EST , Physical Exam Const alert, oriented x3 and well nourished Constitutional Narrative: Middle-aged white female who appears much older than stated age, sitting up in her bed, watching television, overall appears much better than on admission, nontoxic, appears comfortable at this time General Appearance: cooperative HEENT normocephalic, head/scalp atraumatic and hearing grossly normal bilaterally HEENT Narrative: Mallampati is 2, no thrush Eyes Eyes Narrative: Resp normal respiratory effort, no retractions, no use of accessory muscles and No clear to auscultation bilaterally Resp Narrative: Diffusely diminished with scattered end expiratory wheezes, slightly diminished at bases bilaterally more significantly than previous Auscultation: wheezes; Negative for rales or rhonchi Cardio regular rate, regular rhythm, S1 normal heart sound, S2 normal heart sound, no murmurs, no rub, no gallops and no clicks Cardio Narrative: GI normal to inspection, nondistended, normoactive bowel sounds, soft to palpation and non-tender GI Narrative: Marked tenderness in upper abdomen, bowel sounds are hypoactive, no distention, soft Extremity Extremity Narrative: 2+ pedal pulses, trace bilateral lower extremity edema, no cyanosis or clubbing Skin no rashes or lesions noted, no wounds, skin turgor normal, no jaundice, no petechiae and no mottling Neuro oriented x3 and moves all extremities Speech: speech normal Psych Psych Narrative: Mood is much brighter and affect is less flat Assessment & Plan Assessment/Plan (1) Pancreatitis: (2) Transaminitis: (3) Superior mesenteric vein thrombosis: (4) Hypokalemia: (5) Leukocytosis: (6) Nausea & vomiting: (7) Hypomagnesemia: (8) Pleural effusion: PLAN: Plan Acute pancreatitis -Etiology is unclear at this time -Pattern of liver enzyme elevation is not consistent with alcoholic hepatitis -Repeat CT done yesterday to further evaluate her thrombosis does show acute pancreatitis with low-attenuation foci in the pancreatic tail and focal necrosis cannot be excluded, fatty infiltration of the liver and a stable dilated common bile duct with new bilateral effusions -MRCP demonstrated a mildly dilated common duct at 0.68, increased signal in the upper pole of the left kidney -Clinically much improved--> start clear liquid diet -Per discussion with GI still continue IV fluids at 150 an hour -As needed pain medication--> dose reduced today -Antiemetics as needed -GI is following--> for other work-up is pending -ERCP with abnormality on MRCP once pancreas is more stable -Patient needs complete alcohol cessation Portal and superior mesenteric vein thrombosis -hypercoag panel is pending -No family history or personal history of clotting -Continue heparin drip -Repeat CTA of the abdomen pelvis shows stable nonocclusive portal vein thrombus with filling defect in the left gonadal vein concerning for thrombus -Plan to transition to oral agent once pancreas calms down and there is no clear need for any intervention -Will need to hold off until after ERCP is completed -Per vascular surgery no need for surgical intervention or consultation -Discussed with GI Small bilateral pleural effusions -Continue IV fluids per discussion with GI secondary to pancreatitis but will dose Lasix as well -No clinical manifestations of complication related to this at this time -Lasix 40 mg IV push x1 dose -We will be able to reduce IV fluids soon Left kidney abnormality -CTA of the abdomen pelvis shows 2 too small to characterize low-attenuation foci in the left kidney which may be consistent with a cyst Hypokalemia -Resolved -Repeat in a.m. History of GERD -Hold omeprazole -Hold Carafate -Continue IV Protonix 40 twice daily Hypertension -Hold amlodipine -Continue enalaprilat but increase to 1.25 every 6 hours as blood pressures have remained quite elevated -Continue as needed hydralazine for systolic blood pressure greater than 160 -We will restart home medications when able Alcohol abuse -Patient drinks approximately 4 shots a day of vodka -Last drink was afternoon at 3 p.m. on 07/27/2022 -Patient continues to have no signs of withdrawal -CIWA with as needed IV Ativan -May need more extensive medication for detox with phenobarbital depending on symptoms-monitor closely -IV thiamine 200 daily x3 days--> day 3 of 3 -IV folic acid 1 g daily -No current signs of acute withdrawal Tobacco abuse -Patient heavy smoker -Recommend tobacco cessation -Nicotine patch-21 mcg while hospitalized DVT prophylaxis -Full anticoagulation with heparin CODE STATUS -Full code Charges/Coding Visit Charges Inpatient E&M: 59365 Subs Hosp L2
[2022-07-31] MEDS: hydrALAZINE 20 MG/ML Vial 10 MG IV (19:50)
[2022-07-31] MEDS: HEPARIN/D5w 25,000 UNITS 25,000 UNITS/250 ML IV.SOLN. 11 UNITS CONT INF (21:04)
[2022-07-31] MEDS: tiZANidine HCl 2 MG Tablet PO (21:21)
[2022-08-01] MEDS: Enalaprilat 1.25 MG/ML Vial IV ×5 (00:27→23:26)
[2022-08-01] MEDS: Metoclopramide 10 MG/2 ML Vial 5 MG IV ×5 (00:28→23:26)
[2022-08-01] MEDS: 0.9% Saline Lock 10 ML Syringe IV ×6 (00:29→23:26)
[2022-08-01] MEDS: HYDROmorphone 0.5 MG/0.5 ML SYRINGE IV ×7 (00:30→23:27)
[2022-08-01 01:45] VITALS: BP 163/98; PULSE 87; RESP 18; TEMP 37; O2SAT 97
[2022-08-01] MEDS: Lactated Ringers 1,000 ML 150 ML IV ×4 (02:24→21:15)
[2022-08-01 05:45] LABS: Absolute Lymphocyte Count 1.28 X10^3/uL (0.83-4.51); Absolute Neutrophil Count 5.4 X10^3/uL (2.0-7.7); Basophil# 0.03 X10^3/uL; Basophil% 0.4 % (0-1); Eosinophil# 0.12 X10^3/uL; Eosinophils% 1.6 % (0-5); Hemoglobin 11.8 g/dL (12.0-15.0); Lymphocyte # 1.28 X10^3/ul (0.83-4.51); Lymphocyte % 16.7 % (19-41); Mean Corp Hgb Conc 34.7 g/dL (32-36); Mean Corpuscular Hgb 33.1 pg (27.0-32.0); Mean Corpuscular Volume 95.2 fL (81-99); Mean Platelet Vol. 10.9 fl (6.2-12.0); Monocyte# 0.78 X10^3/uL; Monocyte% 10.2 % (0-10); NRBC Flagged by Analyzer 0 % (0-5); Neutrophil % 70.3 % (47-70); Platelet Count 189 K/mm3 (150-450); RBC Distribution Width CV 12.9 % (11.6-14.6); RBC Distribution Width SD 45.3 fl (35.1-43.9); Red Blood Count 3.57 M/mm3 (4.2-5.4); White Blood Count 7.7 K/mm3 (4.4-11.0)
[2022-08-01 06:06] LABS: Partial Thromboplast Time 51.2 Seconds (24.1-36.2)
[2022-08-01 06:53] LABS: ALB/GLOB Ratio 0.8 RATIO (0.9-2.4); AST(SGOT) 39 U/L (15-37); Alanine Aminotransfer ALT/SGPT 37 U/L (13-56); Albumin, Serum 2.9 g/dL (3.2-5.0); Alkaline Phosphatase 119 U/L (45-117); Anion Gap 10 (5-15); BUN 3 mg/dL (7-18); BUN/Creat Ratio 8.9 RATIO (10-20); Calcium,Total 8.7 mg/dL (8.5-10.1); Chloride 98 mmol/L (98-107); Creatinine, Serum 0.34 mg/dL (0.55-1.02); EST Glomerular Filtration Rate 226 mL/min (>60); Est Glom Filt Rate - Afr Amer 274 mL/min (>60); Estimated Creatinine Clearance 184.23 ml/min; Globulin 3.5 g/dL (2.2-4.2); Glucose 96 mg/dL (74-106); Magnesium 1.3 mg/dL (1.6-2.6); Phosphorus 3.3 mg/dL (2.5-4.9); Potassium 2.7 mmol/L (3.5-5.1); Protein, Total 6.4 g/dL (6.4-8.2); Sodium Level 137 mmol/L (136-145)
--- NOTE | 2022-08-01 08:33 | PCM.PN.HOSP ---
Reason for Visit Reason for Visit: Diagnoses Elevated white blood cell count, unspecified (07/28/22) Hypomagnesemia (07/28/22) Hypokalemia (07/28/22) Acute embolism and thrombosis of unspecified vein (07/28/22) Pleural effusion, not elsewhere classified (07/28/22) Acute infarction of intestine, part and extent unspecified (07/28/22) Acute pancreatitis without necrosis or infection, unspecified (07/28/22) Nausea with vomiting, unspecified (07/28/22) Elevation of levels of liver transaminase levels (07/28/22) Abnormal findings on diagnostic imaging of other parts of digestive tract (07/28/22) Subjective Subjective Continues to have intermittent abdominal pain at times that is severe, nausea also coming and going. Had 1 episode yesterday where she had some red sputum when she coughed roughly quarter size and then had some darker several times after that but denies overt cough or changes in her breathing Objective Data Objective Data Vital Signs: Vital Signs Temp Pulse Resp BP Pulse Ox O2 Del Method O2 Flow Rate 98.6 F 87 18 163/98 H 97 Room Air 2 08/01/22 01:45 08/01/22 01:45 08/01/22 01:45 08/01/22 01:45 08/01/22 01:45 08/01/22 01:45 07/28/22 18:05 Oxygen Flow Rate (L/min) 2 Oxygen Delivery Method Room Air Weight: 61.689 kg Body Mass Index (BMI) 23.3 Intake & Output: Intake and Output for Last 24 Hours 07/30/22 07/31/22 08/01/22 23:59 23:59 23:59 Intake Total 5061.40 / 5061.40 4365.43 / 4365.43 1102.48 / 1102.48 Output Total 800 / 800 Balance 4261.40 / 4261.40 4365.43 / 4365.43 1102.48 / 1102.48 Lab / Micro Data Result Diagrams: 08/01/22 05:01 08/01/22 05:01 Labs: Laboratory Results - last 24 hr 08/01/22 05:01: WBC 7.7, RBC 3.57 L, Hgb 11.8 L, Hct 34.0 L, MCV 95.2, MCH 33.1 H, MCHC 34.7, RDW Std Deviation 45.3 H, RDW Coeff of Frankie 12.9, Plt Count 189, MPV 10.9, Immature Gran % (Auto) 0.800, Neut % (Auto) 70.3 H, Lymph % (Auto) 16.7 L, [place] % (Auto) 10.2 H, Eos % (Auto) 1.6, Baso % (Auto) 0.4, Absolute Neuts (auto) 5.4, Absolute Lymphs (auto) 1.28, Nucleated RBC % 0 08/01/22 05:01: Sodium 137, Potassium 2.7 L*, Chloride 98, Carbon Dioxide 29.0, Anion Gap 10, BUN 3 L, Creatinine 0.34 L, Estim Creat Clear Calc 184.23, Est GFR (MDRD) Af Amer 274, Est GFR (MDRD) Non-Af 226, BUN/Creatinine Ratio 8.9 L, Glucose 96, Calcium 8.7, Phosphorus 3.3, Magnesium 1.3 L, Total Bilirubin 0.70, AST 39 H, ALT 37, Alkaline Phosphatase 119 H, Total Protein 6.4, Albumin 2.9 L, Globulin 3.5, Albumin/Globulin Ratio 0.8 L 08/01/22 05:01: APTT 51.2 H Micro: Microbiology 07/30/22 11:26 Interface Orders Group A Streptococcus Rapid Screen - Preliminary 07/30/22 08:55 Nasal Secretion SARS-CoV-2 Antigen (Rapid) - Final Physical Exam Narrative General: Alert, oriented, appears somewhat upset HEENT: Atraumatic, normocephalic Eyes: Anicteric, normal conjunctiva, extraocular movements grossly intact Neck: Supple Respiratory: Slightly diminished at the bases, normal respiratory effort Cardiovascular: Regular rate and rhythm GI: Soft, nondistended, mildly diffusely tender more so epigastric radiating to left upper quadrant, no rebound, no guarding, no rigidity Extremities: No edema Musculoskeletal: Moving all extremities Neuro: No overt focal neurological deficits Skin: No rashes appreciated Psych: Cooperative Assessment & Plan Assessment/Plan (1) Pancreatitis: (2) Transaminitis: (3) Superior mesenteric vein thrombosis: (4) Hypokalemia: (5) Leukocytosis: (6) Nausea & vomiting: (7) Hypomagnesemia: (8) Pleural effusion: PLAN: Plan For 2-year-old female with a history of alcohol abuse, tobacco use, pancreatitis presented to [facility] 07/28/2022 with abdominal pain/nausea/vomiting. It felt similar to previous episodes of pancreatitis and previous episodes had been presumed to be due to her alcohol intake. She was found to have heart rate of 106, leukocytosis mild at 11.9 with mild left shift. Potassium of 2.8 with normal renal function and AST 51, ALT 67 alk phos 131 with a lipase of 9420. She did have CT abdomen pelvis in the ED which demonstrated findings consistent with acute pancreatitis as well as a focal nonocclusive thrombus at the junction of the superior mesenteric vein and portal vein, varices in the splenic hilum and hepatomegaly with fatty infiltration of the liver. She was given aggressive IV fluids, pain medications, antiemetics and admitted. #Acute pancreatitis -Aggressive hydration, antiemetics, pain medication -GI consult -MRCP demonstrated mildly dilated common duct at 0.68 -Repeat CT done 07/30 showed low-attenuation foci in pancreatic tail and focal necrosis cannot be excluded -Clinically improving, clear liquid diet started and remains on fluids -Taper pain medication as able -ERCP once stable #Portal and superior mesenteric vein thrombosis -Hypercoag panel ordered -Heparin drip started, will need transition to oral agent after ERCP completed -This had been discussed with vascular and GI with previous provider with the determination of no need for surgical intervention -Repeat CTA of abdomen pelvis showed stable nonocclusive portal vein thrombus with filling defect in the left gonadal vein concerning for thrombus #Small bilateral pleural effusions -Seen on repeat CT 07/31, likely due to fluid resuscitation, no respiratory compromise, will monitor -This was discussed with GI, is receiving some IV fluids but received Lasix as well #GERD -IV PPI 40 twice daily #Hypertension -Amlodipine held and enalaprilat continued -As needed hydralazine #Alcohol abuse -Was started on CIWA with as needed coverage -Folic acid, status post thiamine #Tobacco abuse -Recommend cessation, nicotine patch ordered #DVT ppx: Remains on heparin Monika Crouch MD Time spent in the patient's overall evaluation,decision-making process, review of diagnostic data, adjustment of management, discussion with other providers, nursing nursing and ancillary staff involved in patient's care documentation, 35 minutes Charges/Coding Visit Charges Inpatient E&M: 06466 Subs Hosp L2
[2022-08-01 09:21] VITALS: BP 154/100; PULSE 78; RESP 18; TEMP 36.7; O2SAT 95
[2022-08-01 12:39] LABS: Partial Thromboplast Time 52.2 Seconds (24.1-36.2)
[2022-08-01 13:00] VITALS: BP 184/116; PULSE 90; RESP 18; TEMP 36.6; O2SAT 97
[2022-08-01 13:07] LABS: Anti-Centromere B Ab <0.2 AI (0.0-0.9); Anti-Chromatin <0.2 AI (0.0-0.9); Anti-Jo <0.2 AI (0.0-0.9); Anti-Scleroderma-70 AB <0.2 AI (0.0-0.9); RNP Ab 0.3 AI (0.0-0.9); SJOGREN'S Anti-SS-A test < 0.2 AI (0.0-0.9); SJOGREN'S Anti-SS-B test < 0.2 AI (0.0-0.9); Smith Ab <0.2 AI (0.0-0.9)
[2022-08-01] MEDS: HEPARIN/D5w 25,000 UNITS 25,000 UNITS/250 ML IV.SOLN. 13 UNITS CONT INF (13:12)
[2022-08-01 13:18] LABS: Anti-dsDNA Ab 1 IU/mL (0-9)
[2022-08-01 16:20] VITALS: BP 147/77; PULSE 70
[2022-08-01 17:08] LABS: Albumin 2.8 g/dL (2.9-4.4); Alpha-1-Globulins 0.4 g/dL (0.0-0.4); Alpha-2-Globulins 0.6 g/dL (0.4-1.0); Cytoplasmic Ab (C-ANCA) <1:20 titer (Neg:<1:20); Gamma Globulin 0.5 g/dL (0.4-1.8); IgG, Quant 608 mg/dL (586-1602); Immunoglobulin A 318 mg/dL (87-352); Immunoglobulin G, Subclass 1 311 mg/dL (248-810); Immunoglobulin G, Subclass 2 143 mg/dL (130-555); Immunoglobulin G, Subclass 3 82 mg/dL (15-102); Immunoglobulin G, Subclass 4 34 mg/dL (2-96); Immunoglobulin M 113 mg/dL (26-217); PROEL- TOTAL PROTEIN 5.5 g/dL (6.0-8.5)
--- NOTE | 2022-08-01 17:24 | PN_ITS ---
Subjective Subjective Patient did have some abdominal pain. She rates abdominal pain at about a 5 out of 10. She is able to tolerate a liquid diet. She does have nausea and is still requiring narcotics. She denies any shortness of breath. Objective Data Objective Data Vital Signs: Vital Signs Temp Pulse Resp BP Pulse Ox O2 Del Method O2 Flow Rate 97.8 F 70 18 147/77 H 97 Room Air 2 08/01/22 13:00 08/01/22 16:20 08/01/22 13:00 08/01/22 16:20 08/01/22 13:00 08/01/22 13:00 07/28/22 18:05 Oxygen Flow Rate (L/min) 2 Oxygen Delivery Method Room Air Weight: 136 lb 0.015 oz Body Mass Index (BMI) 23.3 Intake & Output: Intake and Output for Last 24 Hours 07/30/22 07/31/22 08/01/22 23:59 23:59 23:59 Intake Total 5061.40 / 5061.40 4365.43 / 4365.43 4599.28 / 4599.28 Output Total 800 / 800 Balance 4261.40 / 4261.40 4365.43 / 4365.43 4599.28 / 4599.28 Lab / Micro Data Result Diagrams: 08/01/22 05:01 08/01/22 05:01 Labs: Laboratory Results - last 24 hr 07/30/22 11:02: NIKIA-1 Antibody <0.2, SS-A/Ro IgG Antibody < 0.2, SS-B/La IgG Antibody < 0.2, Sm (Lee) Antibody <0.2, SSIS ETL DEVELOPER Antibody 0.3, Scl-70 Scleroderma Ab <0.2, Double Strand DNA Ab 1, Centromere B Antibody <0.2 08/01/22 05:01: WBC 7.7, RBC 3.57 L, Hgb 11.8 L, Hct 34.0 L, MCV 95.2, MCH 33.1 H, MCHC 34.7, RDW Std Deviation 45.3 H, RDW Coeff of Frankie 12.9, Plt Count 189, MPV 10.9, Immature Gran % (Auto) 0.800, Neut % (Auto) 70.3 H, Lymph % (Auto) 16.7 L, [place] % (Auto) 10.2 H, Eos % (Auto) 1.6, Baso % (Auto) 0.4, Absolute Neuts (auto) 5.4, Absolute Lymphs (auto) 1.28, Nucleated RBC % 0 08/01/22 05:01: Sodium 137, Potassium 2.7 L*, Chloride 98, Carbon Dioxide 29.0, Anion Gap 10, BUN 3 L, Creatinine 0.34 L, Estim Creat Clear Calc 184.23, Est GFR (MDRD) Af Amer 274, Est GFR (MDRD) Non-Af 226, BUN/Creatinine Ratio 8.9 L, Glucose 96, Calcium 8.7, Phosphorus 3.3, Magnesium 1.3 L, Total Bilirubin 0.70, AST 39 H, ALT 37, Alkaline Phosphatase 119 H, Total Protein 6.4, Albumin 2.9 L, Globulin 3.5, Albumin/Globulin Ratio 0.8 L 08/01/22 05:01: APTT 51.2 H 08/01/22 12:23: APTT 52.2 H Micro: Microbiology 07/30/22 11:26 Interface Orders Group A Streptococcus Rapid Screen - Final 07/30/22 08:55 Nasal Secretion SARS-CoV-2 Antigen (Rapid) - Final Physical Exam Narrative General: Alert, oriented, no apparent distress HEENT: Atraumatic, normocephalic Eyes: Anicteric, normal conjunctiva, extraocular movements grossly intact Neck: Supple Respiratory: Clear to auscultation bilaterally, normal respiratory effort Cardiovascular: Regular rate and rhythm GI: Soft, nontender, nondistended Extremities: No edema Musculoskeletal: Moving all extremities Neuro: No overt focal neurological deficits Skin: No rashes appreciated Psych: Cooperative Assessment & Plan Assessment/Plan (1) Leukocytosis: (2) Transaminitis: PLAN: Transaminitis possibly secondary to alcoholic hepatitis although I suspect that there is some elements of chronic liver disease due to the fact that the ALT is greater than AST. That is not the classic alcoholic hepatitis pattern. There is no sign of chronic hepatitis from current work-up. She did have anti- SSIS ETL DEVELOPER antibody that is positive but that is associated mixed connective tissue disease and not usually associated with acute transaminitis secondary to acute hepatitis likely from ischemic disease versus acute alcoholic hepatitis. (3) Pancreatitis: PLAN: Acute alcoholic pancreatitis complicated by thrombosis of the mesenteric vessels. Recommend IV fluids at 150 cc an hour. I am not sure if she is having chest pain secondary to fluid administration. I will give her Lasix due to having effusions from likely IV fluid administration and acute pancreatitis. We may have to switch the IV fluids to a colloid instead of a crystalloid. Her CT scan abdomen pelvis does show likely pancreatic necrosis in the tail of the pancreas. There is no sign of hemorrhagic pancreatitis. I will repeat her ESR, CRP and lactic acid. 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 There is a risk of transformation to hemorrhagic pancreatitis. I discussed this with the patient in detail and showed her the pictures of the large thrombosis involving the portal vein and other splenic vasculature. Repeat CT scan of the abdomen pelvis did not show any occlusive thrombosis of the portal vein which is really good. We would likely need hematology recommendations regarding long-term treatment of superior mesenteric and portal vein thrombosis. There was no sign of varices that were seen on repeat imaging in the stomach. (5) Abnormal magnetic resonance cholangiopancreatography (MRCP): PLAN: Findings from MRCP are as follows : common duct 0.68 cm which is mildly dilated.? This could be age-related. Other considerations would include distal common duct stricture, impacted occult a recently passed calculus.? Additional considerations would include a cold mass regional to the distal common duct. Since she has active pancreatitis at this time I do not want to make that worse. Once she is cell settle down we can do an ERCP at a later time. 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 She continues on anticoagulation. Recommend hematology consultation. Charges/Coding Visit Charges Inpatient E&M: 03731 Subs Hosp L3
[2022-08-01 18:07] LABS: Protein C Antigen 118 % (60-150); Protein C, Functional 135 % (73-180)
[2022-08-01] MEDS: Ensure Clear 120 ML Liquid PO (18:30)
[2022-08-01 20:00] VITALS: BP 161/111; PULSE 100; RESP 18; TEMP 37.1; O2SAT 95
[2022-08-01 20:22] LABS: Partial Thromboplast Time 51.1 Seconds (24.1-36.2)
[2022-08-01] MEDS: Potassium Chloride Oral Tablet 20 MEQ 60 MEQ PO (21:02)
[2022-08-01] MEDS: HEPARIN/D5w 25,000 UNITS 25,000 UNITS/250 ML IV.SOLN. 14 UNITS CONT INF (21:03)
[2022-08-01 21:06] LABS: Perinuclear Ab (P-ANCA) <1:20 titer (Neg:<1:20)
[2022-08-01 21:09] LABS: Anti-Cardiolipin Ab, IgG, Qn < 9 GPL U/mL (0-14); Anti-Cardiolipin Ab, IgM, Qn 15 MPL U/mL (0-12); Anti-Thrombin 3 AG, Immunol 96 % (72-124); Antithrombin 3 Function 116 % (75-135); Beta-2-Glycoprotein I IgA <9 (0-25); Beta-2-Glycoprotein I IgG <9 (0-20); Beta-2-Glycoprotein I IgM <9 (0-32)
[2022-08-01] MEDS: Magnesium Sulfate 4gm/100mL 4 GM/100 ML IV.SOLN. IV (21:10)
[2022-08-02 03:00] VITALS: BP 134/94; PULSE 97; RESP 18; TEMP 36.9; O2SAT 93
[2022-08-02] MEDS: 0.9% Saline Lock 10 ML Syringe IV ×8 (03:33→23:42)
[2022-08-02] MEDS: HYDROmorphone 0.5 MG/0.5 ML SYRINGE IV ×5 (03:34→21:08)
[2022-08-02 03:44] LABS: Absolute Lymphocyte Count 1.98 X10^3/uL (0.83-4.51); Absolute Neutrophil Count 3.9 X10^3/uL (2.0-7.7); Basophil# 0.05 X10^3/uL; Basophil% 0.7 % (0-1); Eosinophil# 0.14 X10^3/uL; Hematocrit 36.2 % (37-47); Hemoglobin 11.9 g/dL (12.0-15.0); Lymphocyte # 1.98 X10^3/ul (0.83-4.51); Lymphocyte % 28.5 % (19-41); Mean Corp Hgb Conc 32.9 g/dL (32-36); Mean Corpuscular Hgb 32.4 pg (27.0-32.0); Mean Corpuscular Volume 98.6 fL (81-99); Mean Platelet Vol. 10.4 fl (6.2-12.0); Monocyte# 0.86 X10^3/uL; Monocyte% 12.4 % (0-10); NRBC Flagged by Analyzer 0 % (0-5); Neutrophil # 3.87 X10^3/uL (2.7-7.7); Neutrophil % 55.8 % (47-70); Platelet Count 209 K/mm3 (150-450); RBC Distribution Width CV 13.2 % (11.6-14.6); RBC Distribution Width SD 47.7 fl (35.1-43.9); Red Blood Count 3.67 M/mm3 (4.2-5.4); White Blood Count 6.9 K/mm3 (4.4-11.0)
[2022-08-02] MEDS: Lactated Ringers 1,000 ML 150 ML IV ×4 (03:45→23:34)
[2022-08-02 03:58] LABS: Partial Thromboplast Time 68.6 Seconds (24.1-36.2)
[2022-08-02 03:59] LABS: ALB/GLOB Ratio 0.8 RATIO (0.9-2.4); AST(SGOT) 32 U/L (15-37); Alanine Aminotransfer ALT/SGPT 34 U/L (13-56); Albumin, Serum 2.8 g/dL (3.2-5.0); Alkaline Phosphatase 112 U/L (45-117); Anion Gap 6 (5-15); BUN 2 mg/dL (7-18); BUN/Creat Ratio 4.1 RATIO (10-20); Calcium,Total 8.6 mg/dL (8.5-10.1); Chloride 105 mmol/L (98-107); Creatinine, Serum 0.48 mg/dL (0.55-1.02); EST Glomerular Filtration Rate 148 mL/min (>60); Est Glom Filt Rate - Afr Amer 179 mL/min (>60); Globulin 3.6 g/dL (2.2-4.2); Glucose 157 mg/dL (74-106); Potassium 3.1 mmol/L (3.5-5.1); Protein, Total 6.4 g/dL (6.4-8.2); Sodium Level 138 mmol/L (136-145)
[2022-08-02] MEDS: Metoclopramide 10 MG/2 ML Vial 5 MG IV ×3 (06:00→18:18)
[2022-08-02] MEDS: Enalaprilat 1.25 MG/ML Vial IV ×3 (06:01→18:21)
--- NOTE | 2022-08-02 07:31 | PN.HOSP_ITS ---
Reason for Visit Reason for Visit: Diagnoses Elevated white blood cell count, unspecified (07/28/22) Hypomagnesemia (07/28/22) Hypokalemia (07/28/22) Acute embolism and thrombosis of unspecified vein (07/28/22) Pleural effusion, not elsewhere classified (07/28/22) Acute infarction of intestine, part and extent unspecified (07/28/22) Acute pancreatitis without necrosis or infection, unspecified (07/28/22) Nausea with vomiting, unspecified (07/28/22) Elevation of levels of liver transaminase levels (07/28/22) Abnormal findings on diagnostic imaging of other parts of digestive tract (07/28/22) Subjective Subjective Still reports abdominal pain waxing and waning, has been tolerating clear liquid diet is interested in trying to eat more. Remains on fluids. Objective Data Objective Data Vital Signs: Vital Signs Temp Pulse Resp BP Pulse Ox O2 Del Method O2 Flow Rate 98.5 F 97 18 134/94 H 93 Room Air 2 08/02/22 03:00 08/02/22 03:00 08/02/22 03:00 08/02/22 03:00 08/02/22 03:00 08/02/22 03:00 07/28/22 18:05 Oxygen Flow Rate (L/min) 2 Oxygen Delivery Method Room Air Weight: 61.689 kg Body Mass Index (BMI) 23.3 Intake & Output: Intake and Output for Last 24 Hours 07/31/22 08/01/22 08/02/22 23:59 23:59 23:59 Intake Total 4365.43 / 4365.43 6462.33 / 6462.33 1075 / 1075 Balance 4365.43 / 4365.43 6462.33 / 6462.33 1075 / 1075 Lab / Micro Data Result Diagrams: 08/02/22 03:38 08/02/22 03:38 Labs: Laboratory Results - last 24 hr 07/28/22 11:15: Protein C Antigen 118, Functional Protein C 135, Prot C Funct Activity Not Reportable, Antithrombin III Ag 96, Func Antithrombin III 116, Factor V Leiden Mutat Comment, Beta-2-GPI IgG Ab <9, Beta-2-GPI IgA Ab <9, Beta-2-GPI IgM Ab <9, Anti-Cardiolipin IgG Ab < 9, Anti-Cardiolipin IgM Ab 15 H, Factor II DNA Analysis Comment 07/30/22 11:02: Total Protein (PEP) 5.5 L, Globulin 2.7, IgG Not Reportable, IgG Total 608, IgG1 311, IgG2 143, IgG3 82, IgG4 34, IgA 318, IgM 113, Immunofixation Screen Comment, Albumin (CAROL) 2.8 L, Albumin/Globulin (CAROL) 1.1, [id number] CAROL 0.4, [id number] CAROL 0.6, Beta-Globulins (CAROL) 1.1, Gamma Globulins (CAROL) 0.5, CAROL M-Darron , CAROL Comments Comment, c-ANCA Antibody <1:20, Atypical p-ANCA <1:20, p-ANCA Antibody <1:20 07/30/22 11:02: NIKIA-1 Antibody <0.2, SS-A/Ro IgG Antibody < 0.2, SS-B/La IgG Antibody < 0.2, Sm (Lee) Antibody <0.2, CHARTING CLERK Antibody 0.3, Scl-70 Scleroderma Ab <0.2, Double Strand DNA Ab 1, Centromere B Antibody <0.2 08/01/22 12:23: APTT 52.2 H 08/01/22 19:37: APTT 51.1 H 08/02/22 03:38: WBC 6.9, RBC 3.67 L, Hgb 11.9 L, Hct 36.2 L, MCV 98.6, MCH 32.4 H, MCHC 32.9 D, RDW Std Deviation 47.7 H, RDW Coeff of Frankie 13.2, Plt Count 209, MPV 10.4, Immature Gran % (Auto) 0.600, Neut % (Auto) 55.8, Lymph % (Auto) 28.5, [place] % (Auto) 12.4 H, Eos % (Auto) 2.0, Baso % (Auto) 0.7, Absolute Neuts (auto) 3.9, Absolute Lymphs (auto) 1.98, Nucleated RBC % 0 08/02/22 03:38: Sodium 138, Potassium 3.1 L, Chloride 105, Carbon Dioxide 27.0, Anion Gap 6, BUN 2 L, Creatinine 0.48 L, Estim Creat Clear Calc 130.50, Est GFR (MDRD) Af Amer 179, Est GFR (MDRD) Non-Af 148, BUN/Creatinine Ratio 4.1 L, Glucose 157 H, Calcium 8.6, Total Bilirubin 0.50, AST 32, ALT 34, Alkaline Phosphatase 112, Total Protein 6.4, Albumin 2.8 L, Globulin 3.6, Albumin/Glob ulin Ratio 0.8 L 08/02/22 03:38: APTT 68.6 H Micro: Microbiology 07/30/22 11:26 Interface Orders Group A Streptococcus Rapid Screen - Final 07/30/22 08:55 Nasal Secretion SARS-CoV-2 Antigen (Rapid) - Final Physical Exam Narrative General: Alert, oriented, appears somewhat upset HEENT: Atraumatic, normocephalic Eyes: Anicteric, normal conjunctiva, extraocular movements grossly intact Neck: Supple Respiratory: Slightly diminished at the bases, normal respiratory effort Cardiovascular: Regular rate and rhythm GI: Soft, nondistended, mildly diffusely tender more so epigastric radiating to left upper quadrant, no rebound, no guarding, no rigidity Extremities: No edema Musculoskeletal: Moving all extremities Neuro: No overt focal neurological deficits Skin: No rashes appreciated Psych: Cooperative Assessment & Plan Assessment/Plan (1) Pancreatitis: (2) Transaminitis: (3) Superior mesenteric vein thrombosis: (4) Hypokalemia: (5) Leukocytosis: (6) Nausea & vomiting: (7) Hypomagnesemia: (8) Pleural effusion: PLAN: Plan For 2-year-old female with a history of alcohol abuse, tobacco use, pancreatitis presented to [facility] 07/28/2022 with abdominal pain/nausea /vomiting. It felt similar to previous episodes of pancreatitis and previous episodes had been presumed to be due to her alcohol intake. She was found to have heart rate of 106, leukocytosis mild at 11.9 with mild left shift. Potassium of 2.8 with normal renal function and AST 51, ALT 67 alk phos 131 with a lipase of 9420. She did have CT abdomen pelvis in the ED which demonstrated findings consistent with acute pancreatitis as well as a focal nonocclusive thrombus at the junction of the superior mesenteric vein and portal vein, varices in the splenic hilum and hepatomegaly with fatty infiltration of the liver. She was given aggressive IV fluids, pain medications, antiemetics and admitted. #Acute pancreatitis -Aggressive hydration, antiemetics, pain medication -GI consult -MRCP demonstrated mildly dilated common duct at 0.68 -Repeat CT done 07/30 showed low-attenuation foci in pancreatic tail and focal necrosis cannot be excluded -Clinically improving, clear liquid diet started and remains on fluids -Taper pain medication as able -ERCP once stable -08/02: Continues to report abdominal pain in the epigastric to left however seems to have less tenderness on exam, will begin transitioning pain medication to oral in preparation for discharge hopefully in the not distant future, r bal on fluids, discussed with GI and will advance diet. #Portal and superior mesenteric vein thrombosis -Hypercoag panel ordered -Heparin drip started, will need transition to oral agent after ERCP completed -This had been discussed with vascular and GI with previous provider with the determination of no need for surgical intervention -Repeat CTA of abdomen pelvis showed stable nonocclusive portal vein thrombus with filling defect in the left gonadal vein concerning for thrombus -08/02: Per GI recommendations we will obtain hematology consult, presently remains on heparin drip, hemoglobin is remained stable #Small bilateral pleural effusions -Seen on repeat CT 07/31, likely due to fluid resuscitation, no respiratory compromise, will monitor -This was discussed with GI, is receiving some IV fluids but received Lasix as well -08/02: We will repeat chest x-ray #GERD -IV PPI 40 twice daily #Hypertension -Amlodipine held and enalaprilat continued -As needed hydralazine #Alcohol abuse -Was started on CIWA with as needed coverage -Folic acid, status post thiamine -08/02: Ativan DC'd as not having requirements and does not appear to be withdrawing #Tobacco abuse -Recommend cessation, nicotine patch ordered #DVT ppx: Remains on heparin gtt Monika Crouch MD Time spent in the patient's overall evaluation,decision-making process, review of diagnostic data, adjustment of management, discussion with other providers, nursing nursing and ancillary staff involved in patient's care documentation, 35 minutes Charges/Coding Visit Charges Inpatient E&M: 34829 Subs Hosp L2
[2022-08-02] MEDS: Potassium Chloride Oral Tablet 20 MEQ 60 MEQ PO (08:23)
[2022-08-02] MEDS: Ensure Clear 120 ML Liquid PO ×4 (08:26→23:34)
--- NOTE | 2022-08-02 08:35 | RAD_ITS ---
STUDY: X-RAY CHEST REASON FOR EXAM: Female, 42 years old. Effusions, on fluids TECHNIQUE: Single AP portable view of the chest. COMPARISON: Comparison is made with prior study of 07/28/2022. FINDINGS: The lungs are clear and expanded. There is no demonstrated pleural abnormality. Normal size heart. Normal mediastinum and amor. Normal visualized pulmonary arteries. Normal visualized aortic arch and descending thoracic aorta. Normal visualized thoracic spine. Normal visualized ribs, clavicles, and shoulders. There is no demonstrated abnormality of the visualized soft tissue structures of the upper abdomen. RAD/Chest 1 View (Portable) IMPRESSION: Normal x-ray examination of the chest. Electronically Signed: Christos Krause MD at 9:42 EST ,
--- NOTE | 2022-08-02 09:45 | NURSING ---
Aware that PTT was obtained. waiting on results
[2022-08-02 09:53] LABS: Partial Thromboplast Time 70.7 Seconds (24.1-36.2)
--- NOTE | 2022-08-02 10:21 | NURSING ---
This RN is aware that PTT is 70.7 and is at therapeutic range. No change to the rate on the Heparin according to the heparin gtt protocol.
[2022-08-02] MEDS: oxyCODONE 5 MG Tablet 10 MG PO ×3 (10:30→23:39)
[2022-08-02 12:03] VITALS: BP 149/103; PULSE 79; RESP 16; TEMP 36.6; O2SAT 98
[2022-08-02] MEDS: tiZANidine HCl 2 MG Tablet PO (16:32)
--- NOTE | 2022-08-02 16:37 | PN_ITS ---
Subjective Subjective Patient is still requiring a lot of pain medicines. She rates her pain at a 6- 10 out of 10 Objective Data Objective Data Vital Signs: Vital Signs Temp Pulse Resp BP Pulse Ox O2 Del Method O2 Flow Rate 97.8 F 79 16 149/103 H 98 Room Air 2 08/02/22 12:03 08/02/22 12:03 08/02/22 12:03 08/02/22 12:03 08/02/22 12:03 08/02/22 12:03 07/28/22 18:05 Oxygen Flow Rate (L/min) 2 Oxygen Delivery Method Room Air Weight: 136 lb 0.015 oz Body Mass Index (BMI) 23.3 Intake & Output: Intake and Output for Last 24 Hours 07/31/22 08/01/22 08/02/22 23:59 23:59 23:59 Intake Total 4365.43 / 4365.43 6462.33 / 6462.33 2185 / 2185 Balance 4365.43 / 4365.43 6462.33 / 6462.33 2185 / 2185 Lab / Micro Data Result Diagrams: 08/02/22 03:38 08/02/22 03:38 Labs: Laboratory Results - last 24 hr 07/28/22 11:15: Protein C Antigen 118, Functional Protein C 135, Prot C Funct Activity Not Reportable, Antithrombin III Ag 96, Func Antithrombin III 116, Factor V Leiden Mutat Comment, Beta-2-GPI IgG Ab <9, Beta-2-GPI IgA Ab <9, Beta-2-GPI IgM Ab <9, Anti-Cardiolipin IgG Ab < 9, Anti-Cardiolipin IgM Ab 15 H, Factor II DNA Analysis Comment 07/30/22 11:02: Total Protein (PEP) 5.5 L, Globulin 2.7, IgG Not Reportable, IgG Total 608, IgG1 311, IgG2 143, IgG3 82, IgG4 34, IgA 318, IgM 113, Immunofixation Screen Comment, Albumin (CAROL) 2.8 L, Albumin/Globulin (CAROL) 1.1, Sfdmy-5-Kriezspld CAROL 0.4, Urkek-9-Vqpneyewv CAROL 0.6, Beta-Globulins (CAROL) 1.1, Gamma Globulins (CAROL) 0.5, CAROL M-Darron , CAROL Comments Comment, c-ANCA Antibody <1:20, Atypical p-ANCA <1:20, p-ANCA Antibody <1:20 08/01/22 19:37: APTT 51.1 H 08/02/22 03:38: WBC 6.9, RBC 3.67 L, Hgb 11.9 L, Hct 36.2 L, MCV 98.6, MCH 32.4 H, MCHC 32.9 D, RDW Std Deviation 47.7 H, RDW Coeff of Frankie 13.2, Plt Count 209, MPV 10.4, Immature Gran % (Auto) 0.600, Neut % (Auto) 55.8, Lymph % (Auto) 28.5, [place] % (Auto) 12.4 H, Eos % (Auto) 2.0, Baso % (Auto) 0.7, Absolute Neuts (auto) 3.9, Absolute Lymphs (auto) 1.98, Nucleated RBC % 0 08/02/22 03:38: Sodium 138, Potassium 3.1 L, Chloride 105, Carbon Dioxide 27.0, Anion Gap 6, BUN 2 L, Creatinine 0.48 L, Estim Creat Clear Calc 130.50, Est GFR (MDRD) Af Amer 179, Est GFR (MDRD) Non-Af 148, BUN/Creatinine Ratio 4.1 L, Glucose 157 H, Calcium 8.6, Total Bilirubin 0.50, AST 32, ALT 34, Alkaline Phosphatase 112, Total Protein 6.4, Albumin 2.8 L, Globulin 3.6, Albumin/Globulin Ratio 0.8 L 08/02/22 03:38: APTT 68.6 H 08/02/22 09:36: APTT 70.7 H Micro: Microbiology 07/30/22 11:26 Interface Orders Group A Streptococcus Rapid Screen - Final 07/30/22 08:55 Nasal Secretion SARS-CoV-2 Antigen (Rapid) - Final Radiography Diagnostic Testing: Radiology Impression Chest X-Ray 08/02/22 08:35 IMPRESSION: Normal x-ray examination of the chest. Electronically Signed: Christos Krause MD at 9:42 EST , Physical Exam Narrative General: Alert, oriented, appears somewhat upset HEENT: Atraumatic, normocephalic Eyes: Anicteric, normal conjunctiva, extraocular movements grossly intact Neck: Supple Respiratory: Slightly diminished at the bases, normal respiratory effort Cardiovascular: Regular rate and rhythm GI: Soft, nondistended, mildly diffusely tender more so epigastric radiating to left upper quadrant, no rebound, no guarding, no rigidity Extremities: No edema Musculoskeletal: Moving all extremities Neuro: No overt focal neurological deficits Skin: No rashes appreciated Psych: Cooperative Assessment & Plan Assessment/Plan (1) Leukocytosis: (2) Transaminitis: PLAN: Transaminitis possibly secondary to alcoholic hepatitis although I suspect that there is some elements of chronic liver disease due to the fact that the ALT is greater than AST. That is not the classic alcoholic hepatitis pattern. There is no sign of chronic hepatitis from current work-up. She did have anti- OCEANOGRAPHY TEACHER antibody that is positive but that is associated mixed connective tissue disease and not usually associated with acute transaminitis secondary to acute hepatitis likely from ischemic disease versus acute alcoholic hepatitis. (3) Pancreatitis: PLAN: Acute alcoholic pancreatitis complicated by thrombosis of the mesenteric vessels. Recommend IV fluids at 150 cc an hour. I am not sure if she is having chest pain secondary to fluid administration. I will give her Lasix due to having effusions from likely IV fluid administration and acute pancreatitis. We may have to switch the IV fluids to a colloid instead of a crystalloid. Her CT scan abdomen pelvis does show likely pancreatic necrosis in the tail of the pancreas. There is no sign of hemorrhagic pancreatitis. I will repeat her ESR, CRP and lactic acid. 08/02: Work-up for an autoimmune cause such as IgG4 related type I autoimmune pancreatitis is negative. I suspect all this is from alcohol. However she does have a positive COLTON cardiolipin antibody. Pancreatitis can make her hypercoagulable as in abnormal anticardiolipin antibody. Await oncology recommendations (4) Superior mesenteric vein thrombosis: PLAN: Superior mesenteric vein thrombosis , recommend to follow H&H. There is a risk of transformation to hemorrhagic pancreatitis. I discussed this with the patient in detail and showed her the pictures of the large thrombosis involving the portal vein and other splenic vasculature. Repeat CT scan of the abdomen pelvis did not show any occlusive thrombosis of the portal vein which is really good. We would likely need hematology recommendations regarding long-term treatment of superior mesenteric and portal vein thrombosis. There was no sign of varices that were seen on repeat imaging in the stomach. (5) Abnormal magnetic resonance cholangiopancreatography (MRCP): PLAN: Findings from MRCP are as follows : common duct 0.68 cm which is mildly dilated.? This could be age-related. Other considerations would include distal common duct stricture, impacted occult a recently passed calculus.? Additional considerations would include a cold mass regional to the distal common duct. Since she has active pancreatitis at this time I do not want to make that worse. Once she is cell settle down we can do an ERCP at a later time. 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 She continues on anticoagulation. Recommend hematology consultation. Charges/Coding Visit Charges Inpatient E&M: 73112 Subs Hosp L3
--- NOTE | 2022-08-02 17:06 | CT_ITS ---
STUDY: CTA OF THE ABDOMINAL AORTA REASON FOR EXAM: Female, 42 years old. Pancreatitis. Evaluate portal vein thrombosis RADIATION DOSAGE (If Supplied By Facility): CTDIvol = ( 14.56 ) mGy, DLP = ( 788.01 ) mGycm TECHNIQUE: Axial CT angiography multi-detector data acquisition was obtained from the diaphragm to the sacrum prior to and following intravenous administration of 100mL Isovue-370. Axial images and MIP images were reconstructed from the axial data set. Post-processing of the angiographic images was performed, with multiplanar reformation and 3D reconstruction. Individualized dose optimization techniques were used for this CT. TECHNICAL QUALITY: Good COMPARISON: CT July 30, 2022 Descriptors of Narrowing: None (0%) Mild (< 50%) Moderate (50-70%) Severe (70-90%) Subtotal/Total Occlusion (90-100%) Non-Evaluable (technically non-diagnostic FINDINGS: Abdominal aorta: No demonstrated narrowing. There is mild plaque. No aneurysm or dissection Celiac and superior mesenteric arteries: No demonstrated narrowing. Inferior mesenteric artery: No demonstrated narrowing. Right renal artery(arteries): No demonstrated narrowing. Left renal artery(arteries): No demonstrated narrowing. Right common iliac artery: There is mild plaque. Right external iliac artery: No demonstrated narrowing. Right internal iliac artery: No demonstrated narrowing. Left common iliac artery: There is mild plaque. Left external iliac artery: No demonstrated narrowing. Left internal iliac artery: No demonstrated narrowing. There is lower lung atelectasis. The visualized portions of the heart are within normal limits. Normal liver. Normal gallbladder. The common bile duct is dilated measuring 0.8 cm. Normal spleen. There is diffuse enlargement of the body and tail of the pancreas with ivory-pancreatic edema suggesting acute pancreatitis. There is 0.9 cm diminished density at the tail of the pancreas suggesting necrosis or pseudocyst. There is stable thrombosis of the portal vein at the confluence with the superior mesenteric vein, series 6 images 47/115 through 49/115. There is subtle diminished density of the left gonadal vein with possible partial thrombus. Normal bilateral adrenal glands. Normal right kidney. There is 1.0 cm cyst of the left kidney. Normal visualized stomach. Normal small intestine. Normal colon. There is abundant stool. There is non-visualization of the appendix. Normal abdominal aorta. Normal inferior vena cava. Normal retroperitoneum. Normal abdominal wall. Normal osseous structures. CT/CTA Abdomen W/WO Contrast IMPRESSION: Stable portal vein thrombosis. Possible thrombosis of the left gonadal vein. Acute pancreatitis with necrosis or pseudocyst at the pancreatic tail. Dilated common bile duct. Left renal cyst. Electronically Signed: Renan Miller MD at 18:55 EST ,
[2022-08-02 18:00] VITALS: BP 142/94; PULSE 78; RESP 18; O2SAT 94
[2022-08-02] MEDS: HEPARIN/D5w 25,000 UNITS 25,000 UNITS/250 ML IV.SOLN. 14 UNITS CONT INF (18:16)
[2022-08-02 18:21] LABS: Hemoglobin 12.6 g/dL (12.0-15.0)
--- NOTE | 2022-08-02 18:46 | ONC.CONSULT ---
Assessment & Plan Assessment/Plan (1) Pancreatitis: Status: Acute Code(s): K85.90 - Acute pancreatitis without necrosis or infection, unspecified Plan: Continue supportive management. (2) Portal vein thrombosis: Status: Acute Code(s): I81 - Portal vein thrombosis Plan: Partial occlusion of the Portal vein associated with Pancreatitis. Pancreatitis is hypercoagulable state. Because of high risk for hemorrhaging, need to repeat imaging before making to decision to anticoagulate with any other drug. HPI Consult Data Date of Service:: 08/02/22 PCP / Referring Provider: [facility] Primary [facility] Phys Attending: Dr. Monika Crouch MD Chief Complaint Chief Complaint: Asked to see pt with Portal vein thrombus. History of Present Illness History of Present Illness: 42-year-old old woman with history of pancreatitis, was admitted on 07/28/2022 with another episode of pancreatitis. CT scan of the abdomen and pelvis on 07/28/2022 showed a filling defect in the portal vein and patient was started on anticoagulation with heparin. Asked to see the patient for chronic anticoagulation. She still has abdominal pain, she has started eating liquid diet. Advanced Directives Power of Casting Technician: No Living Will: No PENDING SALE TO [facility] Medical History Alcohol abuse Pancreatitis Smoker Home Medications amlodipine 10 mg tablet 10 mg PO DAILY #30 tabs 02/22/22 [Rx Last Taken 07/28/22 03:00] omeprazole 40 mg capsule,delayed release 40 mg PO DAILY #30 caps 02/22/22 [Rx Last Taken 07/28/22 03:00] ondansetron 4 mg disintegrating tablet 4 mg PO Q8H PRN nausea and vomiting #30 tabs 02/22/22 [Rx Last Taken 07/28/22 03:00] sennosides 8.6 mg-docusate sodium 50 mg tablet (Stool Softener-Stimulant Laxative) 2 tab PO BID PRN constipation #60 tabs 02/22/22 [Rx Last Taken Unknown] ibuprofen 200 mg tablet (Motrin IB) 800 mg PO Q4H PRN Pain 07/28/22 [History Last Taken 07/28/22 06:30] sucralfate 100 mg/mL oral suspension (Carafate) 10 ml PO BID PRN GERD 07/28/22 [History Last Taken 07/24/22] Allergy/AdvReac Type Severity Reaction Status Date / Time No Known Allergies Allergy Verified 07/28/22 13:42 Family History no significant family his Surgical History H/O tubal ligation Social History (Updated 07/28/22 @ 10:[address] Jovanna Leonard DO) household members: significant other and children housing: house Smoking Status: Current every day smoker tobacco type: cigarettes alcohol intake: current details: Drinks approximately 4 shots of vodka a day and cranberry juice substance use type: does not use ROS Constitutional Constitutional: Reports fatigue; Denies poor appetite ENT HEENT: Denies dysphagia Cardiovascular Cardiovascular: Denies chest pain Respiratory/Chest Respiratory/Chest: Denies chest tightness, cough or dyspnea Gastrointestinal Gastrointestinal: Reports abdominal pain and anorexia; Denies diarrhea Genitourinary Genitourinary: Denies urinary hesitancy or urinary incontinence Musculoskeletal Musculoskeletal: Denies abnormal gait or back pain Integumentary Integumentary: Denies unusual bruising Neurologic Neurologic: Reports abnormal speech Psychiatric Psychiatric: Denies anxiety or depression Endocrine Endocrinology: Denies cold intolerance or flushing Hematologic/Lymphatic Hematologic/Lymphatic: Denies easy bleeding, easy bruising or lymphadenopathy Physical Exam Const alert, oriented x3 and no apparent distress HEENT normocephalic Eyes PERRL, EOMs intact bilaterally and conjunctivae normal Neck no lymphadenopathy Lymph Lymphatic: no lymphadenopathy noted Resp normal respiratory effort and clear to auscultation bilaterally Cardio regular rate, regular rhythm, S1 normal heart sound, S2 normal heart sound and no murmurs GI GI Narrative: + diffuse tenderness Extremity normal to inspection and no clubbing, cyanosis or edema Skin no rashes or lesions noted Neuro CN's II-XII intact bilaterally Psych mental status grossly normal Vital Signs Temperature 97.8 F 08/02/22 12:03 Temperature Source Oral 08/02/22 12:03 Pulse Rate 79 08/02/22 12:03 Pulse Strength Normal (2+) 08/01/22 09:23 Respiratory Rate 16 08/02/22 12:03 Respiratory Effort Non-Labored 08/01/22 21:00 Respiratory Depth Normal 08/01/22 21:00 Respiratory Pattern Normal 08/01/22 21:00 Blood Pressure 149/103 H 08/02/22 12:03 Blood Pressure Mean 118 08/02/22 12:03 Blood Pressure Source Monitor 08/02/22 03:00 Blood Pressure Position Sitting 08/02/22 03:00 Blood Pressure Location Left Arm 08/02/22 03:00 Pulse Ox 98 08/02/22 12:03 Oxygen Delivery Method Room Air 08/02/22 12:03 Oxygen Flow Rate (L/min) 2 07/28/22 18:05 Laboratory Results - last 24 hr 07/28/22 11:15: Protein C Antigen 118, Functional Protein C 135, Prot C Funct Activity Not Reportable, Antithrombin III Ag 96, Func Antithrombin III 116, Factor V Leiden Mutat Comment, Beta-2-GPI IgG Ab <9, Beta-2-GPI IgA Ab <9, Beta-2-GPI IgM Ab <9, Anti-Cardiolipin IgG Ab < 9, Anti-Cardiolipin IgM Ab 15 H, Factor II DNA Analysis Comment 07/30/22 11:02: Total Protein (PEP) 5.5 L, Globulin 2.7, IgG Not Reportable, IgG Total 608, IgG1 311, IgG2 143, IgG3 82, IgG4 34, IgA 318, IgM 113, Immunofixation Screen Comment, Albumin (CAROL) 2.8 L, Albumin/Globulin (CAROL) 1.1, Jsoqb-1-Loxbkejxm CAROL 0.4, Fryiu-0-Lvdumagpm CAROL 0.6, Beta-Globulins (CAROL) 1.1, Gamma Globulins (CAROL) 0.5, CAROL M-Darron , CAROL Comments Comment, c-ANCA Antibody <1:20, Atypical p-ANCA <1:20, p-ANCA Antibody <1:20 08/01/22 19:37: APTT 51.1 H 08/02/22 03:38: WBC 6.9, RBC 3.67 L, Hgb 11.9 L, Hct 36.2 L, MCV 98.6, MCH 32.4 H, MCHC 32.9 D, RDW Std Deviation 47.7 H, RDW Coeff of Frankie 13.2, Plt Count 209, MPV 10.4, Immature Gran % (Auto) 0.600, Neut % (Auto) 55.8, Lymph % (Auto) 28.5, [place] % (Auto) 12.4 H, Eos % (Auto) 2.0, Baso % (Auto) 0.7, Absolute Neuts (auto) 3.9, Absolute Lymphs (auto) 1.98, Nucleated RBC % 0 08/02/22 03:38: Sodium 138, Potassium 3.1 L, Chloride 105, Carbon Dioxide 27.0, Anion Gap 6, BUN 2 L, Creatinine 0.48 L, Estim Creat Clear Calc 130.50, Est GFR (MDRD) Af Amer 179, Est GFR (MDRD) Non-Af 148, BUN/Creatinine Ratio 4.1 L, Glucose 157 H, Calcium 8.6, Total Bilirubin 0.50, AST 32, ALT 34, Alkaline Phosphatase 112, Total Protein 6.4, Albumin 2.8 L, Globulin 3.6, Albumin/Globulin Ratio 0.8 L 08/02/22 03:38: APTT 68.6 H 08/02/22 09:36: APTT 70.7 H 08/02/22 18:09: Hgb 12.6 Diagnostic Data MRCP 07/28/22 10:13 IMPRESSION: Common duct 0.68 cm which is mildly dilated. This could be age-related. Other considerations would include distal common duct stricture, impacted occult a recently passed calculus. Additional considerations would include a cold mass regional to the distal common duct. Increased signal lesion upper pole left kidney 0.92 cm transverse which could represent hemorrhagic cyst, solid mass cannot be excluded. Given patient''s history of pancreatitis and left renal lesion recommendation is for CT without and with contrast if clinically warranted. Normal variant phrygian cap of the gallbladder. Electronically Signed: Riley Dhaliwal MD, KINJAL at 13:30 EST , Abdomen/Pelvis CT 07/30/22 10:48 IMPRESSION: Stable nonocclusive portal vein thrombus. Filling defect within the left gonadal vein concerning for a thrombus. Acute pancreatitis associated with a low-attenuation focus within the pancreatic tail, cannot exclude focal necrosis. Fatty infiltration of the liver. Stable dilated common bile duct. New bilateral pleural effusions associated with lower lobe consolidation. Electronically Signed: Elizabeth Multani MD at 15:46 EST , Chest X-Ray 08/02/22 08:35 IMPRESSION: Normal x-ray examination of the chest. Electronically Signed: Christos Krause MD at 9:42 EST , Charges/Coding Visit Charges Office Visits / Consults: [id number] IP Consult L4
[2022-08-02 20:57] VITALS: BP 160/99; PULSE 75; RESP 18; TEMP 36.6; O2SAT 98
[2022-08-02] MEDS: Senna/Docusate Sodium 1 Tablet 2 TABLET PO (21:17)
[2022-08-02 23:35] VITALS: BP 169/106; PULSE 85; RESP 18; TEMP 36.7; O2SAT 99
[2022-08-02 23:42] VITALS: BP 169/106; PULSE 85
[2022-08-02] MEDS: hydrALAZINE 20 MG/ML Vial 10 MG IV (23:42)
[2022-08-03] VITALS (8 sets, daily range): BP systolic 100–156; BP diastolic 73–102; PULSE 71–84; RESP 16–18; TEMP 36.7–36.8; O2SAT 96–98
[2022-08-03] MEDS: tiZANidine HCl 2 MG Tablet PO ×3 (00:37→20:23)
[2022-08-03] MEDS: Metoclopramide 10 MG/2 ML Vial 5 MG IV ×5 (00:37→23:05)
[2022-08-03] MEDS: Enalaprilat 1.25 MG/ML Vial IV ×2 (00:40→06:20)
[2022-08-03] MEDS: HYDROmorphone 0.5 MG/0.5 ML SYRINGE IV ×4 (01:15→23:11)
[2022-08-03] MEDS: 0.9% Saline Lock 10 ML Syringe IV ×2 (06:17→23:05)
[2022-08-03 06:18] LABS: Absolute Lymphocyte Count 1.53 X10^3/uL (0.83-4.51); Absolute Neutrophil Count 3.6 X10^3/uL (2.0-7.7); Basophil# 0.04 X10^3/uL; Basophil% 0.6 % (0-1); Eosinophil# 0.22 X10^3/uL; Eosinophils% 3.5 % (0-5); Hematocrit 32.8 % (37-47); Hemoglobin 10.9 g/dL (12.0-15.0); Lymphocyte # 1.53 X10^3/ul (0.83-4.51); Lymphocyte % 24.5 % (19-41); Mean Corp Hgb Conc 33.2 g/dL (32-36); Mean Corpuscular Hgb 32.2 pg (27.0-32.0); Mean Corpuscular Volume 96.8 fL (81-99); Mean Platelet Vol. 10.3 fl (6.2-12.0); Monocyte# 0.85 X10^3/uL; Monocyte% 13.6 % (0-10); NRBC Flagged by Analyzer 0 % (0-5); Neutrophil # 3.59 X10^3/uL (2.7-7.7); Neutrophil % 57.5 % (47-70); Platelet Count 200 K/mm3 (150-450); RBC Distribution Width CV 13.4 % (11.6-14.6); RBC Distribution Width SD 48.1 fl (35.1-43.9); Red Blood Count 3.39 M/mm3 (4.2-5.4); White Blood Count 6.3 K/mm3 (4.4-11.0)
[2022-08-03] MEDS: Lactated Ringers 1,000 ML 150 ML IV ×2 (06:25→18:30)
[2022-08-03] MEDS: oxyCODONE 5 MG Tablet 10 MG PO ×3 (06:26→20:23)
--- NOTE | 2022-08-03 06:32 | NURSING ---
pt requested pain meds and rated pain a 6 out of 10. pt asked this rn why she is getting oxy instead of the Dilaudid. this rn reminded pt that the note on the mar states try the oxy prior to the Dilaudid. Pt then asks how long do I have to wait before I can have the Dilaudid
[2022-08-03 06:52] LABS: International Normalized Ratio 1.1; Prothrombin Time (Protime)PT. 13.9 SECONDS (11.7-14.9)
[2022-08-03 06:53] LABS: Partial Thromboplast Time 91.5 Seconds (24.1-36.2)
[2022-08-03 06:57] LABS: ALB/GLOB Ratio 0.8 RATIO (0.9-2.4); AST(SGOT) 46 U/L (15-37); Alanine Aminotransfer ALT/SGPT 40 U/L (13-56); Albumin, Serum 2.7 g/dL (3.2-5.0); Alkaline Phosphatase 101 U/L (45-117); Anion Gap 8 (5-15); BUN 4 mg/dL (7-18); BUN/Creat Ratio 8.4 RATIO (10-20); Calcium,Total 8.9 mg/dL (8.5-10.1); Chloride 104 mmol/L (98-107); Creatinine, Serum 0.48 mg/dL (0.55-1.02); EST Glomerular Filtration Rate 150 mL/min (>60); Est Glom Filt Rate - Afr Amer 182 mL/min (>60); Globulin 3.3 g/dL (2.2-4.2); Glucose 107 mg/dL (74-106); Magnesium 1.6 mg/dL (1.6-2.6); Potassium 3.1 mmol/L (3.5-5.1); Sodium Level 138 mmol/L (136-145)
[2022-08-03 06:58] LABS: Ammonia < 10.0 umol/L (11-32)
[2022-08-03] MEDS: Senna/Docusate Sodium 1 Tablet 2 TABLET PO (08:32)
[2022-08-03] MEDS: Polyethylene Glycol 3350 17 GM PACKET 34 GM PO (08:32)
--- NOTE | 2022-08-03 08:48 | PCM.PN.HOSP ---
Reason for Visit Reason for Visit: Diagnoses Elevated white blood cell count, unspecified (07/28/22) Hypomagnesemia (07/28/22) Hypokalemia (07/28/22) Portal vein thrombosis (07/28/22) Acute embolism and thrombosis of unspecified vein (07/28/22) Pleural effusion, not elsewhere classified (07/28/22) Acute infarction of intestine, part and extent unspecified (07/28/22) Acute pancreatitis without necrosis or infection, unspecified (07/28/22) Nausea with vomiting, unspecified (07/28/22) Elevation of levels of liver transaminase levels (07/28/22) Abnormal findings on diagnostic imaging of other parts of digestive tract (07/28/22) Subjective Subjective Pain still waxes and wanes, has now had a bowel movement, advancing diet and is tolerating this. Did have increased congestion and cough with some left-sided shoulder pain and a CT scan with an infiltrate was started on antibiotics, did develop red slightly raised rash primarily on her back and left AC fossa that was only minimally itchy, no respiratory compromise. Was started on several antibiotics due to new diagnosis of HAP and she is unsure of any specific reaction. Objective Data Objective Data Vital Signs: Vital Signs Temp Pulse Resp BP Pulse Ox O2 Del Method O2 Flow Rate 98.2 F 81 16 134/83 H 98 Room Air 2 08/03/22 08:08 08/03/22 08:08 08/03/22 08:08 08/03/22 08:08 08/03/22 08:08 08/03/22 08:23 07/28/22 18:05 Oxygen Flow Rate (L/min) 2 Oxygen Delivery Method Room Air Weight: 61.689 kg Body Mass Index (BMI) 23.3 Intake & Output: Intake and Output for Last 24 Hours 08/01/22 08/02/22 08/03/22 23:59 23:59 23:59 Intake Total 6462.33 / 6462.33 4940 / 4940 1178.97 / 1178.97 Balance 6462.33 / 6462.33 4940 / 4940 1178.97 / 1178.97 Lab / Micro Data Result Diagrams: 08/03/22 06:05 08/03/22 06:05 Labs: Laboratory Results - last 24 hr 08/02/22 09:36: APTT 70.7 H 08/02/22 18:09: Hgb 12.6 08/03/22 06:05: WBC 6.3, RBC 3.39 L, Hgb 10.9 L, Hct 32.8 L, MCV 96.8, MCH 32.2 H, MCHC 33.2, RDW Std Deviation 48.1 H, RDW Coeff of Frankie 13.4, Plt Count 200, MPV 10.3, Immature Gran % (Auto) 0.300, Neut % (Auto) 57.5, Lymph % (Auto) 24.5, [place] % (Auto) 13.6 H, Eos % (Auto) 3.5, Baso % (Auto) 0.6, Absolute Neuts (auto) 3.6, Absolute Lymphs (auto) 1.53, Nucleated RBC % 0 08/03/22 06:05: Sodium 138, Potassium 3.1 L, Chloride 104, Carbon Dioxide 26.0, Anion Gap 8, BUN 4 L, Creatinine 0.48 L, Estim Creat Clear Calc 130.50, Est GFR (MDRD) Af Amer 182, Est GFR (MDRD) Non-Af 150, BUN/Creatinine Ratio 8.4 L, Glucose 107 H, Calcium 8.9, Magnesium 1.6, Total Bilirubin 0.50, AST 46 H, ALT 40, Alkaline Phosphatase 101, Total Protein 6.0 L, Albumin 2.7 L, Globulin 3.3, Albumin/Globulin Ratio 0.8 L 08/03/22 06:05: PT 13.9, INR 1.1, APTT 91.5 H* 08/03/22 06:05: Ammonia < 10.0 L Micro: Microbiology 08/03/22 07:52 Mucosa - Nasopharyngeal Influenza Types A,B Direct FA (TERRELL) - Final 07/30/22 11:26 Interface Orders Group A Streptococcus Rapid Screen - Final 07/30/22 08:55 Nasal Secretion SARS-CoV-2 Antigen (Rapid) - Final Radiography Diagnostic Testing: Radiology Impression Chest X-Ray 08/02/22 08:35 IMPRESSION: Normal x-ray examination of the chest. Electronically Signed: Christos Krause MD at 9:42 EST , Abdomen CTA 08/02/22 17:06 IMPRESSION: Stable portal vein thrombosis. Possible thrombosis of the left gonadal vein. Acute pancreatitis with necrosis or pseudocyst at the pancreatic tail. Dilated common bile duct. Left renal cyst. Electronically Signed: Renan Miller MD at 18:55 EST , Physical Exam Narrative General: Alert, oriented, no apparent distress HEENT: Atraumatic, normocephalic Eyes: Anicteric, normal conjunctiva, extraocular movements grossly intact Neck: Supple Respiratory: Somewhat coarse in left lower lung base, normal respiratory effort Cardiovascular: Regular rate and rhythm GI: Soft, tenderness seems to be improving, nondistended Extremities: No edema Musculoskeletal: Moving all extremities Neuro: No overt focal neurological deficits Skin: Red rash that is patchy on her back with several spots minimally raised without significant itching, no erythema or lesions in her mouth or on her face and no respiratory compromise Psych: Cooperative Assessment & Plan Assessment/Plan (1) Pancreatitis: (2) Transaminitis: (3) Superior mesenteric vein thrombosis: (4) Hypokalemia: (5) Leukocytosis: (6) Nausea & vomiting: (7) Hypomagnesemia: (8) Pleural effusion: PLAN: Plan For 2-year-old female with a history of alcohol abuse, tobacco use, pancreatitis presented to [facility] 07/28/2022 with abdominal pain/nausea/vomiting. It felt similar to previous episodes of pancreatitis and previous episodes had been presumed to be due to her alcohol intake. She was found to have heart rate of 106, leukocytosis mild at 11.9 with mild left shift. Potassium of 2.8 with normal renal function and AST 51, ALT 67 alk phos 131 with a lipase of 9420. She did have CT abdomen pelvis in the ED which demonstrated findings consistent with acute pancreatitis as well as a focal nonocclusive thrombus at the junction of the superior mesenteric vein and portal vein, varices in the splenic hilum and hepatomegaly with fatty infiltration of the liver. She was given aggressive IV fluids, pain medications, antiemetics and admitted. #Acute pancreatitis -Aggressive hydration, antiemetics, pain medication -GI consult -MRCP demonstrated mildly dilated common duct at 0.68 -Repeat CT done 07/30 showed low-attenuation foci in pancreatic tail and focal necrosis cannot be excluded -Clinically improving, clear liquid diet started and remains on fluids -Taper pain medication as able -ERCP once stable -08/02: Continues to report abdominal pain in the epigastric to left however seems to have less tenderness on exam, will begin transitioning pain medication to oral in preparation for discharge hopefully in the not distant future, remains on fluids, discussed with GI and will advance diet. -08/03: Continue to wean pain medications, tolerating transitional diet, remains on fluids. We will get repeat ESR, CRP, lactic acid per GI recommendations #Portal vein thrombosis with possible left gonadal vein thrombosis -Hypercoag panel ordered -Heparin drip started, will need transition to oral agent after ERCP completed -This had been discussed with vascular and GI with previous provider with the determination of no need for surgical intervention -Repeat CTA of abdomen pelvis showed stable nonocclusive portal vein thrombus with filling defect in the left gonadal vein concerning for thrombus -08/02: Per GI recommendations we will obtain hematology consult, presently remains on heparin drip, hemoglobin is remained stable -08/03: Repeat imaging obtained, discussed with Dr. Urena post imaging and given entire clinical picture and scan there was advised that we could consider continuing anticoagulation and transitioning to Lovenox. He recommended getting a D-dimer and having her follow-up with him in the outpatient setting to determine duration of therapy #Hospital-acquired pneumonia -Increased cough and congestion with infiltrate observed on CT -Was started on Vanco, cefepime, azithromycin but developed a rash, unclear culprit -Given Benadryl x1 and will switch her to Levaquin, MRSA swab negative so vancomycin discontinued #New onset rash -Primarily on her back -Given Benadryl -We will change antibiotics -No lesions in mouth and no respiratory compromise, discussed warning signs and symptoms with patient and when she should reach out if she has any concerns #Small bilateral pleural effusions -Seen on repeat CT 07/31, likely due to fluid resuscitation, no respiratory compromise, will monitor -This was discussed with GI, is receiving some IV fluids but received Lasix as well -08/02: We will repeat chest x-ray -08/03: Repeat chest x-ray in the a.m. #GERD -IV PPI 40 twice daily #Hypertension -BP has steadily down trended as clinical status improved, holding scheduled BP meds, hydralazine as needed #Alcohol abuse -Was started on CIWA with as needed coverage -Folic acid, status post thiamine -08/02: Ativan DC'd as not having requirements and does not appear to be withdrawing #Tobacco abuse -Recommend cessation, nicotine patch ordered #DVT ppx: Remains on heparin gtt, will transition to Lovenox in the a.m., instructions given to stop heparin drip 2 hours prior to Lovenox Monika Crouch MD Time spent in the patient's overall evaluation,decision-making process, review of diagnostic data, adjustment of management, discussion with other providers, nursing nursing and ancillary staff involved in patient's care documentation, 40 minutes Charges/Coding Visit Charges Inpatient E&M: 56963 Subs Hosp L3
[2022-08-03] MEDS: Vancomycin IV 1,000 MG/200 ML BAG 200 MG IV (09:16)
[2022-08-03] MEDS: guaiFENesin 1,200 MG Tablet 1200 MG PO ×2 (09:19→20:23)
[2022-08-03] MEDS: Ensure Clear 120 ML Liquid PO ×2 (09:19→15:26)
--- NOTE | 2022-08-03 09:34 | PCM.RX.CS ---
Consult Pharmacy has been consulted to manage selected antiobiotic: Vancomycin Type of Consult: New start Labs: Sodium 138 mmol/L (136-145) 08/03/22 06:05 Potassium 3.1 mmol/L (3.5-5.1) L 08/03/22 06:05 Chloride 104 mmol/L (98-107) 08/03/22 06:05 Carbon Dioxide 26.0 mmol/L (21.0-32.0) 08/03/22 06:05 Anion Gap 8 (5-15) 08/03/22 06:05 BUN 4 mg/dL (7-18) L 08/03/22 06:05 Creatinine 0.48 mg/dL (0.55-1.02) L 08/03/22 06:05 Est GFR (MDRD) Af Amer 182 mL/min (>60) 08/03/22 06:05 Est GFR (MDRD) Non-Af 150 mL/min (>60) 08/03/22 06:05 BUN/Creatinine Ratio 8.4 RATIO (10-20) L 08/03/22 06:05 Glucose 107 mg/dL (74-106) H 08/03/22 06:05 Microbiology: Microbiology 08/03/22 08:35 Nasal Secretion SARS-CoV-2 Antigen (Rapid) - Final 08/03/22 07:52 Mucosa - Nasopharyngeal Influenza Types A,B Direct FA (TERRELL) - Final 07/30/22 11:26 Interface Orders Group A Streptococcus Rapid Screen - Final 07/30/22 08:55 Nasal Secretion SARS-CoV-2 Antigen (Rapid) - Final Weight used for dosin.7 kg Estimated Creatinine Clearance: >100ML/MIN Goal Trough: 15-20 mcg/mL Pharmacy Plan for Drug Dosing: Give initial standard dose (15mg/kg) of 1000mg IV x1, the will continue with 750mg q8h per [facility] dosing protocol. Check a trough before the 4th total dose tomorrow morning. Pharmacy Service will continue to monitor and adjust dosing as required. Follow-Up Labs: Trough Vancomycin Labs to be done on [date and time ordered]: 08/04/22 08:30
[2022-08-03] MEDS: Potassium Chloride Oral Tablet 20 MEQ 60 MEQ PO (10:45)
[2022-08-03] MEDS: Psyllium 1 PACKET PO (10:45)
[2022-08-03] MEDS: Acetaminophen 325 MG Tablet 650 MG PO (11:29)
[2022-08-03 13:45] LABS: Partial Thromboplast Time 66.7 Seconds (24.1-36.2)
[2022-08-03] MEDS: HEPARIN/D5w 25,000 UNITS 25,000 UNITS/250 ML IV.SOLN. 13 UNITS CONT INF (15:10)
[2022-08-03] MEDS: DiphenhydrAMINE 50 MG/ML Syringe 25 MG IV (15:21)
--- NOTE | 2022-08-03 16:35 | PN_ITS ---
Subjective Subjective Patient states that her abdominal pain is about the same. She denied any nausea. She rates her pain at a 5 out of 10. She has had no signs of melena, hematochezia, bloating or worsening back pain. Objective Data Objective Data Vital Signs: Vital Signs Temp Pulse Resp BP Pulse Ox O2 Del Method O2 Flow Rate 98.2 F 79 16 132/86 H 98 Room Air 2 08/03/22 14:47 08/03/22 14:47 08/03/22 14:47 08/03/22 14:47 08/03/22 14:47 08/03/22 15:00 07/28/22 18:05 Oxygen Flow Rate (L/min) 2 Oxygen Delivery Method Room Air Weight: 136 lb 0.015 oz Body Mass Index (BMI) 23.3 Intake & Output: Intake and Output for Last 24 Hours 08/01/22 08/02/22 08/03/22 23:59 23:59 23:59 Intake Total 6462.33 / 6462.33 4940 / 4940 2802.17 / 2802.17 Balance 6462.33 / 6462.33 4940 / 4940 2802.17 / 2802.17 Lab / Micro Data Result Diagrams: 08/03/22 06:05 08/03/22 06:05 Labs: Laboratory Results - last 24 hr 08/02/22 18:09: Hgb 12.6 08/03/22 06:05: WBC 6.3, RBC 3.39 L, Hgb 10.9 L, Hct 32.8 L, MCV 96.8, MCH 32.2 H, MCHC 33.2, RDW Std Deviation 48.1 H, RDW Coeff of Frankie 13.4, Plt Count 200, MPV 10.3, Immature Gran % (Auto) 0.300, Neut % (Auto) 57.5, Lymph % (Auto) 24.5, [place] % (Auto) 13.6 H, Eos % (Auto) 3.5, Baso % (Auto) 0.6, Absolute Neuts (auto) 3.6, Absolute Lymphs (auto) 1.53, Nucleated RBC % 0 08/03/22 06:05: Sodium 138, Potassium 3.1 L, Chloride 104, Carbon Dioxide 26.0, Anion Gap 8, BUN 4 L, Creatinine 0.48 L, Estim Creat Clear Calc 130.50, Est GFR (MDRD) Af Amer 182, Est GFR (MDRD) Non-Af 150, BUN/Creatinine Ratio 8.4 L, Glucose 107 H, Calcium 8.9, Magnesium 1.6, Total Bilirubin 0.50, AST 46 H, ALT 40, Alkaline Phosphatase 101, Total Protein 6.0 L, Albumin 2.7 L, Globulin 3.3, Albumin/Globulin Ratio 0.8 L 08/03/22 06:05: PT 13.9, INR 1.1, APTT 91.5 H* 08/03/22 06:05: Ammonia < 10.0 L 08/03/22 13:23: APTT 66.7 H Micro: Microbiology 08/03/22 09:00 Interface Orders Legionella Antigen - Final 08/03/22 09:00 Interface Orders Streptococcus pneumoniae Antigen (M - Final 08/03/22 08:35 Nasal Secretion SARS-CoV-2 Antigen (Rapid) - Final 08/03/22 07:52 Mucosa - Nasopharyngeal Influenza Types A,B Direct FA (TERRELL) - Final 07/30/22 11:26 Interface Orders Group A Streptococcus Rapid Screen - Final 07/30/22 08:55 Nasal Secretion SARS-CoV-2 Antigen (Rapid) - Final Radiography Diagnostic Testing: Radiology Impression Abdomen CTA 08/02/22 17:06 IMPRESSION: Stable portal vein thrombosis. Possible thrombosis of the left gonadal vein. Acute pancreatitis with necrosis or pseudocyst at the pancreatic tail. Dilated common bile duct. Left renal cyst. Electronically Signed: Renan Miller MD at 18:55 EST , Physical Exam Const alert, oriented x3 and no apparent distress HEENT normocephalic Eyes PERRL, EOMs intact bilaterally and conjunctivae normal Neck no lymphadenopathy Lymph Lymphatic: no lymphadenopathy noted Resp normal respiratory effort and clear to auscultation bilaterally Cardio regular rate, regular rhythm, S1 normal heart sound, S2 normal heart sound and no murmurs GI GI Narrative: + diffuse tenderness Extremity normal to inspection and no clubbing, cyanosis or edema Skin no rashes or lesions noted Neuro CN's II-XII intact bilaterally Psych mental status grossly normal Assessment & Plan Assessment/Plan (1) Leukocytosis: (2) Transaminitis: PLAN: Transaminitis possibly secondary to alcoholic hepatitis although I suspect that there is some elements of chronic liver disease due to the fact that the ALT is greater than AST. That is not the classic alcoholic hepatitis pattern. There is no sign of chronic hepatitis from current work-up. She did have anti- PROVIDER RELATIONS COORDINATOR antibody that is positive but that is associated mixed connective tissue disease and not usually associated with acute transaminitis secondary to acute hepatitis likely from ischemic disease versus acute alcoholic hepatitis. (3) Pancreatitis: PLAN: Acute alcoholic pancreatitis complicated by thrombosis of the mesenteric vessels. Recommend IV fluids at 150 cc an hour. I am not sure if she is having chest pain secondary to fluid administration. I will give her Lasix due to having effusions from likely IV fluid administration and acute pancreatitis. We may have to switch the IV fluids to a colloid instead of a crystalloid. Her CT scan abdomen pelvis does show likely pancreatic necrosis in the tail of the pancreas. There is no sign of hemorrhagic pancreatitis. I will repeat her ESR, CRP and lactic acid. 08/02: Work-up for an autoimmune cause such as IgG4 related type I autoimmune pancreatitis is negative. I suspect all this is from alcohol. However she does have a positive COLTON cardiolipin antibody. Pancreatitis can make her hypercoagulable as in abnormal anticardiolipin antibody. Await oncology recommendations 08/03: The repeat CT scan shows similar findings and regarding her pancreatitis with some possible ischemic changes in the tail of the pancreas. Working diagnosis is still alcohol induced pancreatitis. Continue IV fluids. Repeat ESR, CRP and lactic acid. 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 There is a risk of transformation to hemorrhagic pancreatitis. I discussed this with the patient in detail and showed her the pictures of the large thrombosis involving the portal vein and other splenic vasculature. Repeat CT scan of the abdomen pelvis did not show any occlusive thrombosis of the portal vein which is really good. We would likely need hematology recommendations regarding long-term treatment of superior mesenteric and portal vein thrombosis. There was no sign of varices that were seen on repeat imaging in the stomach. 08/03: Oncology is leaning towards stopping anticoagulation due to patient having incomplete thrombosis. We will await recommendations. (5) Abnormal magnetic resonance cholangiopancreatography (MRCP): PLAN: Findings from MRCP are as follows : common duct 0.68 cm which is mildly dilated.? This could be age-related. Other considerations would include distal common duct stricture, impacted occult a recently passed calculus.? Additional considerations would include a cold mass regional to the distal common duct. Since she has active pancreatitis at this time I do not want to make that worse. Once she is cell settle down we can do an ERCP at a later time. 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 She continues on anticoagulation. Recommend hematology consultation. Charges/Coding Visit Charges Inpatient E&M: 59626 Subs Hosp L3
[2022-08-03 17:03] LABS: M R Staph aureus DNA By PCR Negative (Negative); Probe Check PASS; Specimen Processing Control PASS
[2022-08-03 19:58] LABS: Hemoglobin 12.7 g/dL (12.0-15.0)
[2022-08-03 20:08] LABS: Partial Thromboplast Time 63.7 Seconds (24.1-36.2)
[2022-08-03] MEDS: levoFLOXacin IV 750 MG/150 ML BAG 100 MG IV (20:24)
[2022-08-03 20:40] LABS: D-Dimer Quantitative (DVT/PE) 1.51 FEU/ug/m (0.27-0.49)
--- NOTE | 2022-08-03 21:02 | NURSING ---
PTT drawn at 192, did not result until 2044
[2022-08-03] MEDS: Lactated Ringers 1,000 ML 100 ML IV (23:06)
[2022-08-04] MEDS: 0.9% Saline Lock 10 ML Syringe IV ×4 (04:32→22:45)
[2022-08-04] MEDS: Metoclopramide 10 MG/2 ML Vial 5 MG IV ×4 (04:32→22:45)
[2022-08-04] MEDS: oxyCODONE 5 MG Tablet 10 MG PO ×4 (04:32→23:38)
[2022-08-04] MEDS: Psyllium 1 PACKET PO ×3 (04:33→22:46)
[2022-08-04] MEDS: tiZANidine HCl 2 MG Tablet PO ×4 (04:36→23:38)
[2022-08-04] MEDS: Lactated Ringers 1,000 ML 100 ML IV (04:36)
[2022-08-04 04:38] VITALS: BP 147/103; PULSE 67; RESP 18; TEMP 36.6; O2SAT 97
--- NOTE | 2022-08-04 05:55 | RAD_ITS ---
STUDY: X-RAY CHEST REASON FOR EXAM: Female, 42 years old. Pneumonia, pleural effusions TECHNIQUE: Single AP portable view of the chest. COMPARISON: Comparison is made with prior study dated August 02, 2022. FINDINGS: The lungs are clear and expanded. There is no demonstrated pleural abnormality. Normal size heart. Normal mediastinum and amor. Normal visualized pulmonary arteries. Normal visualized aortic arch and descending thoracic aorta. Normal visualized thoracic spine. Normal visualized ribs, clavicles, and shoulders. There is no demonstrated abnormality of the visualized soft tissue structures of the upper abdomen. RAD/Chest 1 View (Portable) IMPRESSION: Normal x-ray examination of the chest. Electronically Signed: Christos Krause MD at 9:47 EST ,
[2022-08-04 06:01] LABS: Absolute Lymphocyte Count 1.41 X10^3/uL (0.83-4.51); Basophil# 0.05 X10^3/uL; Basophil% 0.9 % (0-1); Eosinophil# 0.25 X10^3/uL; Eosinophils% 4.5 % (0-5); Hematocrit 32.5 % (37-47); Hemoglobin 11.1 g/dL (12.0-15.0); Lymphocyte # 1.41 X10^3/ul (0.83-4.51); Lymphocyte % 25.3 % (19-41); Mean Corp Hgb Conc 34.2 g/dL (32-36); Mean Corpuscular Hgb 33.3 pg (27.0-32.0); Mean Corpuscular Volume 97.6 fL (81-99); Mean Platelet Vol. 10.4 fl (6.2-12.0); Monocyte# 0.81 X10^3/uL; Monocyte% 14.5 % (0-10); NRBC Flagged by Analyzer 0 % (0-5); Neutrophil # 3.03 X10^3/uL (2.7-7.7); Neutrophil % 54.4 % (47-70); Platelet Count 214 K/mm3 (150-450); RBC Distribution Width CV 13.4 % (11.6-14.6); Red Blood Count 3.33 M/mm3 (4.2-5.4); White Blood Count 5.6 K/mm3 (4.4-11.0)
[2022-08-04 06:12] LABS: Erythrocyte Sedimentation Rate 28 mm/hr (0-30)
[2022-08-04 06:16] LABS: Partial Thromboplast Time 73.9 Seconds (24.1-36.2)
[2022-08-04 06:42] LABS: Lactic Acid 0.8 mmol/L (0.4-1.9)
[2022-08-04 06:59] LABS: ALB/GLOB Ratio 0.8 RATIO (0.9-2.4); AST(SGOT) 49 U/L (15-37); Alanine Aminotransfer ALT/SGPT 46 U/L (13-56); Albumin, Serum 2.7 g/dL (3.2-5.0); Alkaline Phosphatase 94 U/L (45-117); Anion Gap 8 (5-15); BUN 6 mg/dL (7-18); BUN/Creat Ratio 9.2 RATIO (10-20); Calcium,Total 9.2 mg/dL (8.5-10.1); Chloride 103 mmol/L (98-107); Creatinine, Serum 0.66 mg/dL (0.55-1.02); EST Glomerular Filtration Rate 105 mL/min (>60); Est Glom Filt Rate - Afr Amer 127 mL/min (>60); Estimated Creatinine Clearance 94.91 ml/min; Globulin 3.4 g/dL (2.2-4.2); Glucose 125 mg/dL (74-106); Potassium 3.7 mmol/L (3.5-5.1); Prolactin 84.7 ng/mL; Protein, Total 6.1 g/dL (6.4-8.2); Sodium Level 138 mmol/L (136-145)
[2022-08-04 07:52] VITALS: BP 132/89; PULSE 73; RESP 16; TEMP 36.6; O2SAT 96
[2022-08-04] MEDS: HYDROmorphone 0.5 MG/0.5 ML SYRINGE IV (07:57)
[2022-08-04 08:05] VITALS: O2SAT 96
[2022-08-04] MEDS: Enoxaparin 100 MG/ML Syringe 90 MG SC (10:08)
[2022-08-04] MEDS: Polyethylene Glycol 3350 17 GM PACKET 34 GM PO (10:19)
[2022-08-04] MEDS: Ensure Clear 120 ML Liquid PO (10:19)
[2022-08-04] MEDS: guaiFENesin 1,200 MG Tablet 1200 MG PO ×2 (10:20→22:46)
[2022-08-04] MEDS: levoFLOXacin IV 750 MG/150 ML BAG 100 MG IV (10:41)
--- NOTE | 2022-08-04 13:51 | CASEMGMT ---
RN CM NOTE: Per Dr Crouch, oncology wishes for pt to discharge home on Lovenox. RN CM asked for this to be e-scribed to [facility] for hernandez check to be completed. Brenda, pump machine operator, made aware pt to discharge home on Lovenox inj and to notify nurse that pt will need education on Lovenox injections. Maria Teresa ROMERON VIVIEN CM
[2022-08-04 16:49] LABS: Internal QC Validated? YES +Cl - CLEAR BKGD; Pregnancy, Urine Negative Negative
[2022-08-04 17:09] VITALS: BP 150/99; PULSE 82; RESP 16; TEMP 37; O2SAT 100
--- NOTE | 2022-08-04 17:18 | PCM.PROGNOTE ---
Subjective Subjective The patient is actually doing a lot better. Her abdominal pain is better controlled. Objective Data Objective Data Vital Signs: Vital Signs Temp Pulse Resp BP Pulse Ox O2 Del Method O2 Flow Rate 98.6 F 82 16 150/99 H 100 Room Air 2 08/04/22 17:09 08/04/22 17:09 08/04/22 17:09 08/04/22 17:09 08/04/22 17:09 08/04/22 17:09 07/28/22 18:05 Oxygen Flow Rate (L/min) 2 Oxygen Delivery Method Room Air Weight: 136 lb 0.015 oz Body Mass Index (BMI) 23.3 Intake & Output: Intake and Output for Last 24 Hours 08/02/22 08/03/22 08/04/22 23:59 23:59 23:59 Intake Total 4940 / 4940 4347.25 / 4347.25 1715.01 / 1715.01 Balance 4940 / 4940 4347.25 / 4347.25 1715.01 / 1715.01 Lab / Micro Data Result Diagrams: 08/04/22 05:45 08/04/22 05:45 Labs: Laboratory Results - last 24 hr 08/03/22 19:25: Hgb 12.7 08/03/22 19:25: APTT 63.7 H, D-Dimer Quant (PE/DVT) 1.51 H* 08/04/22 05:45: WBC 5.6, RBC 3.33 L, Hgb 11.1 L, Hct 32.5 L, MCV 97.6, MCH 33.3 H, MCHC 34.2, RDW Std Deviation 48.0 H, RDW Coeff of Frankie 13.4, Plt Count 214, MPV 10.4, Immature Gran % (Auto) 0.400, Neut % (Auto) 54.4, Lymph % (Auto) 25.3, Dunn % (Auto) 14.5 H, Eos % (Auto) 4.5, Baso % (Auto) 0.9, Absolute Neuts (auto) 3.0, Absolute Lymphs (auto) 1.41, Nucleated RBC % 0, ESR 28 08/04/22 05:45: Sodium 138, Potassium 3.7, Chloride 103, Carbon Dioxide 27.0, Anion Gap 8, BUN 6 L, Creatinine 0.66, Estim Creat Clear Calc 94.91, Est GFR (MDRD) Af Amer 127, Est GFR (MDRD) Non-Af 105, BUN/Creatinine Ratio 9.2 L, Glucose 125 H, Calcium 9.2, Total Bilirubin 0.30, AST 49 H, ALT 46, Alkaline Phosphatase 94, C-React Prot Ext Range 15.50 H, Total Protein 6.1 L, Albumin 2.7 L, Globulin 3.4, Albumin/Globulin Ratio 0.8 L, Prolactin 84.7 08/04/22 05:45: Lactic Acid 0.8 08/04/22 05:45: APTT 73.9 H 08/04/22 16:08: Urine Test Negative Micro: Microbiology 08/03/22 13:56 Mucosa - Nose Respiratory Panel (PCR) - Final 08/03/22 09:00 Interface Orders Legionella Antigen - Final 08/03/22 09:00 Interface Orders Streptococcus pneumoniae Antigen (M - Final 08/03/22 08:35 Nasal Secretion SARS-CoV-2 Antigen (Rapid) - Final 08/03/22 07:52 Mucosa - Nasopharyngeal Influenza Types A,B Direct FA (TERRELL) - Final 07/30/22 11:26 Interface Orders Group A Streptococcus Rapid Screen - Final 07/30/22 08:55 Nasal Secretion SARS-CoV-2 Antigen (Rapid) - Final Radiography Diagnostic Testing: Radiology Impression Chest X-Ray 08/04/22 05:55 IMPRESSION: Normal x-ray examination of the chest. Electronically Signed: Christos Krause MD at 9:47 EST , Physical Exam Const alert, oriented x3 and no apparent distress HEENT normocephalic Eyes PERRL, EOMs intact bilaterally and conjunctivae normal Neck no lymphadenopathy Lymph Lymphatic: no lymphadenopathy noted Resp normal respiratory effort and clear to auscultation bilaterally Cardio regular rate, regular rhythm, S1 normal heart sound, S2 normal heart sound and no murmurs GI GI Narrative: + diffuse tenderness Extremity normal to inspection and no clubbing, cyanosis or edema Skin no rashes or lesions noted Neuro CN's II-XII intact bilaterally Psych mental status grossly normal Assessment & Plan Assessment/Plan (1) Leukocytosis: (2) Transaminitis: PLAN: Transaminitis possibly secondary to alcoholic hepatitis although I suspect that there is some elements of chronic liver disease due to the fact that the ALT is greater than AST. That is not the classic alcoholic hepatitis pattern. There is no sign of chronic hepatitis from current work-up. She did have anti-STEAM TABLE ATTENDANT antibody that is positive but that is associated mixed connective tissue disease and not usually associated with acute transaminitis secondary to acute hepatitis likely from ischemic disease versus acute alcoholic hepatitis. (3) Pancreatitis: PLAN: Acute alcoholic pancreatitis complicated by thrombosis of the mesenteric vessels. Recommend IV fluids at 150 cc an hour. I am not sure if she is having chest pain secondary to fluid administration. I will give her Lasix due to having effusions from likely IV fluid administration and acute pancreatitis. We may have to switch the IV fluids to a colloid instead of a crystalloid. Her CT scan abdomen pelvis does show likely pancreatic necrosis in the tail of the pancreas. There is no sign of hemorrhagic pancreatitis. I will repeat her ESR, CRP and lactic acid. 08/02: Work-up for an autoimmune cause such as IgG4 related type I autoimmune pancreatitis is negative. I suspect all this is from alcohol. However she does have a positive COLTON cardiolipin antibody. Pancreatitis can make her hypercoagulable as in abnormal anticardiolipin antibody. Await oncology recommendations 08/03: The repeat CT scan shows similar findings and regarding her pancreatitis with some possible ischemic changes in the tail of the pancreas. Working diagnosis is still alcohol induced pancreatitis. Continue IV fluids. Repeat ESR, CRP and lactic acid. 08/04: She will need a repeat CT scan in approximately 14 days. At that time we can repeat ESR, CRP and lactic acid. If she can not drink any alcohol she will have a good chance in order to recover fully. 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 There is a risk of transformation to hemorrhagic pancreatitis. I discussed this with the patient in detail and showed her the pictures of the large thrombosis involving the portal vein and other splenic vasculature. Repeat CT scan of the abdomen pelvis did not show any occlusive thrombosis of the portal vein which is really good. We would likely need hematology recommendations regarding long-term treatment of superior mesenteric and portal vein thrombosis. There was no sign of varices that were seen on repeat imaging in the stomach. 3/: Oncology is leaning towards stopping anticoagulation due to patient having incomplete thrombosis. We will await recommendations. 08/04: Oncology is okay with the patient going on heparin subcutaneous injections for the 2 thrombosis that were seen. (5) Abnormal magnetic resonance cholangiopancreatography (MRCP): PLAN: Findings from MRCP are as follows : common duct 0.68 cm which is mildly dilated.? This could be age-related. Other considerations would include distal common duct stricture, impacted occult a recently passed calculus.? Additional considerations would include a cold mass regional to the distal common duct. Since she has active pancreatitis at this time I do not want to make that worse. Once she is cell settle down we can do an ERCP at a later time. 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 She continues on anticoagulation. Recommend hematology consultation. Charges/Coding Visit Charges Inpatient E&M: 10543 Subs Hosp L3
--- NOTE | 2022-08-04 18:15 | PN.HOSP_ITS ---
Reason for Visit Reason for Visit: Diagnoses Elevated white blood cell count, unspecified (07/28/22) Hypomagnesemia (07/28/22) Hypokalemia (07/28/22) Portal vein thrombosis (07/28/22) Acute embolism and thrombosis of unspecified vein (07/28/22) Pleural effusion, not elsewhere classified (07/28/22) Acute infarction of intestine, part and extent unspecified (07/28/22) Acute pancreatitis without necrosis or infection, unspecified (07/28/22) Nausea with vomiting, unspecified (07/28/22) Elevation of levels of liver transaminase levels (07/28/22) Abnormal findings on diagnostic imaging of other parts of digestive tract () Subjective Subjective Continues to improve, still with abdominal pain but is trying to take only oral medication. Rash improved Objective Data Objective Data Vital Signs: Vital Signs Temp Pulse Resp BP Pulse Ox O2 Del Method O2 Flow Rate 98.6 F 82 16 150/99 H 100 Room Air 2 08/04/22 17:09 08/04/22 17:09 08/04/22 17:09 08/04/22 17:09 08/04/22 17:09 08/04/22 17:09 07/28/22 18:05 Oxygen Flow Rate (L/min) 2 Oxygen Delivery Method Room Air Weight: 61.689 kg Body Mass Index (BMI) 23.3 Intake & Output: Intake and Output for Last 24 Hours 08/02/22 08/03/22 08/04/22 23:59 23:59 23:59 Intake Total 4940 / 4940 4347.25 / 4347.25 1715. / 1715.01 Balance 4940 / 4940 4347.25 / 4347.25 1715. / 1715.01 Lab / Micro Data Result Diagrams: 08/04/22 05:45 08/04/22 05:45 Labs: Laboratory Results - last 24 hr 08/03/22 19:25: Hgb 12.7 08/03/22 19:25: APTT 63.7 H, D-Dimer Quant (PE/DVT) 1.51 H* 08/04/22 05:45: WBC 5.6, RBC 3.33 L, Hgb 11.1 L, Hct 32.5 L, MCV 97.6, MCH 33.3 H, MCHC 34.2, RDW Std Deviation 48.0 H, RDW Coeff of Frankie 13.4, Plt Count 214, MPV 10.4, Immature Gran % (Auto) 0.400, Neut % (Auto) 54.4, Lymph % (Auto) 25.3, [place] % (Auto) 14.5 H, Eos % (Auto) 4.5, Baso % (Auto) 0.9, Absolute Neuts (auto) 3.0, Absolute Lymphs (auto) 1.41, Nucleated RBC % 0, ESR 28 08/04/22 05:45: Sodium 138, Potassium 3.7, Chloride 103, Carbon Dioxide 27.0, Anion Gap 8, BUN 6 L, Creatinine 0.66, Estim Creat Clear Calc 94.91, Est GFR (MDRD) Af Amer 127, Est GFR (MDRD) Non-Af 105, BUN/Creatinine Ratio 9.2 L, Glucose 125 H, Calcium 9.2, Total Bilirubin 0.30, AST 49 H, ALT 46, Alkaline Phosphatase 94, C-React Prot Ext Range 15.50 H, Total Protein 6.1 L, Albumin 2.7 L, Globulin 3.4, Albumin/Globulin Ratio 0.8 L, Prolactin 84.7 08/04/22 05:45: Lactic Acid 0.8 08/04/22 05:45: APTT 73.9 H 08/04/22 16:08: Urine Test Negative Micro: Microbiology 08/03/22 13:56 Mucosa - Nose Respiratory Panel (PCR) - Final 08/03/22 09:00 Interface Orders Legionella Antigen - Final 08/03/22 09:00 Interface Orders Streptococcus pneumoniae Antigen (M - Final 08/03/22 08:35 Nasal Secretion SARS-CoV-2 Antigen (Rapid) - Final 08/03/22 07:52 Mucosa - Nasopharyngeal Influenza Types A,B Direct FA (TERRELL) - Final 07/30/22 11:26 Interface Orders Group A Streptococcus Rapid Screen - Final 07/30/22 08:55 Nasal Secretion SARS-CoV-2 Antigen (Rapid) - Final Radiography Diagnostic Testing: Radiology Impression Chest X-Ray 08/04/22 05:55 IMPRESSION: Normal x-ray examination of the chest. Electronically Signed: Christos Krause MD at 9:47 EST , Physical Exam Narrative General: Alert, oriented, no apparent distress HEENT: Atraumatic, normocephalic Eyes: Anicteric, normal conjunctiva, extraocular movements grossly intact Neck: Supple Respiratory: Somewhat coarse in left lower lung base, normal respiratory effort Cardiovascular: Regular rate and rhythm GI: Soft, tenderness seems to be improving, nondistended Extremities: No edema Musculoskeletal: Moving all extremities Neuro: No overt focal neurological deficits Skin: Red patchy rash is resolved Psych: Cooperative Assessment & Plan Assessment/Plan (1) Pancreatitis: (2) Transaminitis: (3) Superior mesenteric vein thrombosis: (4) Hypokalemia: (5) Leukocytosis: (6) Nausea & vomiting: (7) Hypomagnesemia: (8) Pleural effusion: PLAN: Plan For 2-year-old female with a history of alcohol abuse, tobacco use, pancreatitis presented to [facility] 07/28/2022 with abdominal pain/nausea/vomiting. It felt similar to previous episodes of pancreatitis and previous episodes had been presumed to be due to her alcohol intake. She was found to have heart rate of 106, leukocytosis mild at 11.9 with mild left shift. Potassium of 2.8 with normal renal function and AST 51, ALT 67 alk phos 131 wit h a lipase of 9420. She did have CT abdomen pelvis in the ED which demonstrated findings consistent with acute pancreatitis as well as a focal nonocclusive thrombus at the junction of the superior mesenteric vein and portal vein, varices in the splenic hilum and hepatomegaly with fatty infiltration of the liver. She was given aggressive IV fluids, pain medications, antiemetics and admitted. #Acute pancreatitis -Aggressive hydration, antiemetics, pain medication -GI consult -MRCP demonstrated mildly dilated common duct at 0.68 -Repeat CT done 07/30 showed low-attenuation foci in pancreatic tail and focal necrosis cannot be excluded -Clinically improving, clear liquid diet started and remains on fluids -Taper pain medication as able -ERCP once stable -08/02: Continues to report abdominal pain in the epigastric to left however seems to have less tenderness on exam, will begin transitioning pain medication to oral in preparation for discharge hopefully in the not distant future, remains on fluids, discussed with GI and will advance diet. -08/03: Continue to wean pain medications, tolerating transitional diet, remains on fluids. 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 Urena post imaging and given entire clinical picture and scan there was advised that we could consider continuing anticoagulation and transitioning to Lovenox. He recommended getting a D-dimer and having her follow-up with him in the outpatient setting to determine duration of therapy -08/04: Transition to Lovenox, discussed with her at length #Hospital-acquired pneumonia -Increased cough and congestion with infiltrate observed on CT -Was started on Vanco, cefepime, azithromycin but developed a rash, unclear culprit -Given Benadryl x1 and will switch her to Levaquin, MRSA swab negative so vancomycin discontinued -08/04: Doing well on Levaquin #New onset rash -Primarily on her back -Given Benadryl -We will change antibiotics -No lesions in mouth and no respiratory compromise, discussed warning signs and symptoms with patient and when she should reach out if she has any concerns -08/04: Resolved, unclear the culprit #Small bilateral pleural effusions -Seen on repeat CT 07/31, likely due to fluid resuscitation, no respiratory compromise, will monitor -This was discussed with GI, is receiving some IV fluids but received Lasix as well -08/02: We will repeat chest x-ray -08/03: Repeat chest x-ray in the a.m. -08/04: Improved #GERD -IV PPI 40 twice daily #Hypertension -BP has steadily down trended as clinical status improved, holding scheduled BP meds, hydralazine as needed -08/04: Was on IV enalaprilat, had 1 episode where her blood pressure was on the low side and this had been held, will start lisinopril daily #Alcohol abuse -Was started on CIWA with as needed coverage -Folic acid, status post thiamine -08/02: Ativan DC'd as not having requirements and does not appear to be withdrawing #Tobacco abuse -Recommend cessation, nicotine patch ordered #DVT ppx: Full dose Lovenox Monika Crouch MD Time spent in the patient's overall evaluation,decision-making process, review of diagnostic data, adjustment of management, discussion with other providers, nursing nursing and ancillary staff involved in patient's care documentation, 40 minutes Charges/Coding Visit Charges Inpatient E&M: 41011 Subs Hosp L3
[2022-08-04] MEDS: Lisinopril 5 MG Tablet PO (19:32)
[2022-08-04 22:41] VITALS: BP 147/96; PULSE 68; RESP 18; TEMP 36.8; O2SAT 95
[2022-08-05 04:43] VITALS: BP 123/91; PULSE 81; RESP 18; TEMP 36.6; O2SAT 96
[2022-08-05] MEDS: Metoclopramide 10 MG/2 ML Vial 5 MG IV ×2 (04:46→11:20)
[2022-08-05] MEDS: 0.9% Saline Lock 10 ML Syringe IV (07:49)
[2022-08-05] MEDS: oxyCODONE 5 MG Tablet 10 MG PO ×2 (07:49→14:23)
[2022-08-05] MEDS: Ondansetron 4 MG/2 ML Vial IV (07:50)
[2022-08-05] MEDS: tiZANidine HCl 2 MG Tablet PO ×2 (07:50→14:23)
[2022-08-05 08:12] VITALS: BP 125/81; PULSE 65; RESP 14; TEMP 36.8; O2SAT 94
--- NOTE | 2022-08-05 09:54 | CASEMGMT ---
Addendum entered by Jenae Austin 08/05/22 10:00: VIVIEN LYON in to pt room to make aware of no cost to lovenox. Pt states she was taught lastnight how to give med. She feels that she can do this on her own and denies needs. Asked if this RN CAMRON could set up a PCP for her. Pt states that she plans to do this today. Original Note: TC to Trudi Anthony, spoke with Omar, there is no cost for the lovenox.
[2022-08-05] MEDS: Enoxaparin 100 MG/ML Syringe 90 MG SC (10:22)
[2022-08-05] MEDS: guaiFENesin 1,200 MG Tablet 1200 MG PO (10:22)
[2022-08-05] MEDS: Lisinopril 5 MG Tablet PO (10:22)
[2022-08-05] MEDS: levoFLOXacin IV 750 MG/150 ML BAG 100 MG IV (11:17)
[2022-08-05] MEDS: Polyethylene Glycol 3350 17 GM PACKET 34 GM PO (11:19)
[2022-08-05] MEDS: Ensure Clear 120 ML Liquid PO (11:30)
[2022-08-05] MEDS: Acetaminophen 325 MG Tablet 650 MG PO (13:07)
--- NOTE | 2022-08-05 15:06 | DCINST_ITS ---
Discharge Instructions Diet Discharge Diet: No restrictions Activity Discharge Activity: Return to Normal Activity Follow Up Care Test Results: Test results from this visit will be discussed in further detail at your follow- up appointment, if applicable. Discharge Plan Admission Admit Date/Time: 07/28/22 10:06 Primary Reason for Your Visit: Abdominal pain Attending Provider: Monika Crouch Primary Care Provider: Care Physician,No Primary Consulting Providers: Jovanna Leonard ; Jose Francisco Emmanuel ; Lonnie Urena ; Jose Antonio Krishnamurthy ; René Read ; Florentin Blanc ; Roberto Pagan ; Jeovany Gilbert ; Joan Ballesteros [employer] Instructions Patient Instructions: ED Pancreatitis Additional Instructions / Restrictions: DISCHARGE INSTRUCTIONS PLEASE READ *Please take this with you to your next doctors appointment* -You were found to have pneumonia during your hospitalization and were started on antibiotic, you will need 5 more days of this antibiotic Levaquin 750 mg daily with your next dose tomorrow -You will be sent with a short course of pain medication, oxycodone in addition to Flexeril, as well to take as needed as your abdominal pain continues to improve. It is very important that you do not drink alcohol while taking this medication or take any other controlled substances. The oxycodone will be 5mg tabs with instructions to take up to two tabs four times daily as needed for pain in addition to tizanidine 2 mg tablet every 6 hours as needed for pain -Due to your constipation you will be discharged on senna docusate 2 tabs twice daily and would recommend obtaining [id number] metamucil which you will take 1 tablespoon 3 times daily. If you are unable to locate this at the drugstore your pharmacist will be able to assist you. Once you began having regular bowel movements you can take the senna docusate as needed but continue to take the psyllium daily. Would advise this regimen even after you are no longer taking the oxycodone -Your blood pressure medications changed, you no longer take amlodipine as there is a small but possible risk of it contributing to pancreatitis. You have been switched to lisinopril which she will take daily, a prescription of this has been sent to your preferred pharmacy on file. -You will need to follow-up with Dr. Salamanca with GI in his office upon discharge. Please call his office to schedule your hospital follow-up appointment (ph. [phone]). He wants to see him in 1 month. I left a voicemail with the office prior to discharge with your information and phone number as well as this timeframe however if you do not hear from anyone within 24 business hours please call the office to inquire about scheduling -You will need a repeat CT scan in approximately 14 days and repeat lab work (ESR, CRP, lactic acid) at that time. When you speak to Dr. Salamanca's office about your hospital follow-up appointment please inquire about scheduling these as well -You will be discharged on Lovenox which you will inject subcutaneously every morning. -You will need to follow with Dr. Urena, the blood doctor, on discharge. Please call upon discharge to schedule your hospital follow-up appointment. I called Dr. Urena's office to inquire about scheduling appointment and left a voicemail with your preferred phone number on file ([phone]) and asked that they call to schedule an appointment with you. If you do not hear from anyone within 24- 48 business hours please call to inquire about your hospital follow-up appointment -It will be incredibly important that you establish with a primary care physician as soon as you are discharged for further coordination of care. Additionally you were found to have an elevated prolactin while you were admitted and will need an MRI of your head and a mammogram on an outpatient basis. -You also were given 3 antibiotics when you were diagnosed with pneumonia in the hospital, azithromycin, cefepime, vancomycin and he developed a rash. You did not have any throat swelling or changes in your breathing but given it was unclear which medication caused the rash you were changed to a different medication overall. Would advise informing future doctors offices and care team during hospitalizations that you received these 3 medications but are unsure which one caused the rash. -It is strongly advised that you refrain from any alcohol drinking. Please call [facility] located at [address] [place] [phone] (ph [phone]) if you are interested in further resources or use the contact information provided to you -Please call a primary care office on Monday to schedule an establish care visit -Any new prescriptions were sent to your preferred pharmacy on file the [facility] -For any concerning signs or symptoms please call 911 or proceed to the nearest emergency department Discharge Orders/Prescriptions Prescriptions: New enoxaparin [Lovenox] 100 mg/mL syringe 90 mg subcut Q24H Qty: 10 3RF lisinopril 5 mg Tablet 5 mg PO DAILY 30 Days Qty: 30 3RF levofloxacin 750 mg tablet 750 mg PO DAILY 5 Days Qty: 5 0RF Rx Instructions: Start 08/06/22 oxycodone 5 mg Tablet 10 mg PO Q6H PRN PRN (Reason: Pain Score 6-10) 4 Days Qty: 32 0RF tizanidine 2 mg Tablet 2 mg PO Q6H PRN PRN (Reason: back pain) 4 Days Qty: 16 0RF Metamucil 3.4 gram/5.4 gram powder 1 tbsp PO TID Qty: 660 0RF Rx Instructions: mix into at least 8 oz of water or juice before administering. OBTAIN OVERT THE COUNTER Continued omeprazole 40 mg capsule,delayed release(DR/EC) 40 mg PO DAILY Qty: 30 1RF ondansetron 4 mg tablet,disintegrating 4 mg PO Q8H PRN (Reason: nausea and vomiting) Qty: 30 0RF sucralfate [Carafate] 100 mg/mL suspension 10 ml PO BID PRN (Reason: GERD) Changed sennosides-docusate sodium [Stool Softener-Stimulant Laxat] 8.6-50 mg Tablet 2 tab PO BID 30 Days Qty: 60 3RF Discontinued amlodipine 10 mg Tablet 10 mg PO DAILY Qty: 30 0RF Rx Instructions: Hold for SBP less than 130 mmHg ibuprofen [Motrin IB] 200 mg Tablet 800 mg PO Q4H PRN (Reason: Pain) Referrals / Follow Up: Lonnie Urena MD [Med Staff - Active Staff] - See Referral Note (You will need to follow with Dr. Urena, the blood doctor, on discharge. Please call upon discharge to schedule your hospital follow-up appointment.) Chandler Salamanca DO [Med Staff - Active Staff] - Within 1 Month (You will need to follow-up with Dr. Salamanca with GI in his office upon discharge. Please call his office to schedule your hospital follow-up appointment (ph. [phone]). He wants to see him in 1 month. I left a voicemail with the office prior to discharge with your information and phone number as well as this timeframe however if you do not hear from anyone within 24 business hours please call the office to inquire about scheduling) Care Physician,No Primary [Primary Care Provider] - Disposition Disposition (needs filled in before D/C Order can be placed): Home, Self Care
--- NOTE | 2022-08-05 15:11 | PCM.DC.SUM ---
Providers Date of Admission: 07/28/22 Date of Discharge: 08/05/22 Primary Care Physician: Becca [facility] Phys Consultations 07/28/22 12:05 Consult: Gastroenterology Routine Consulting Provider: [facility] Reason for Consult: pancreatitis EMERGENT Consult: No Notified: Yes Date Notified: 07/28/22 Time Notified: 10:13 Method of Notification: Verbal 08/02/22 07:33 Consult: Oncology/Hematology Routine Consulting Provider: [facility]) Reason for Consult: SMA thrombosis EMERGENT Consult: No Notified: Yes Date Notified: 08/02/22 Time Notified: 10:10 Method of Notification: Text Comments:: Dr. Urena Reason For Visit: PANCREATITIS Diagnosis Discharge Diagnosis (1) Pancreatitis: Status: Acute Code(s): K85.90 - Acute pancreatitis without necrosis or infection, unspecified (2) Transaminitis: Status: Acute Code(s): R74.01 - Elevation of levels of liver transaminase levels (3) Superior mesenteric vein thrombosis: Status: Acute Code(s): K55.069 - Acute infarction of intestine, part and extent unspecified (4) Hypokalemia: Status: Acute Code(s): E87.6 - Hypokalemia (5) Leukocytosis: Status: Acute Code(s): D72.829 - Elevated white blood cell count, unspecified (6) Nausea & vomiting: Status: Acute Code(s): R11.2 - Nausea with vomiting, unspecified (7) Hypomagnesemia: Status: Acute Code(s): E83.42 - Hypomagnesemia (8) Pleural effusion: Status: Acute Code(s): J90 - Pleural effusion, not elsewhere classified Plan #Acute pancreatitis with possible pancreatic necrosis #Portal vein thrombosis with possible left gonadal vein thrombosis #Hospital-acquired pneumonia #New onset rash- likely drug rash,r esolved #Small bilateral pleural effusions-resolved #GERD #Hypertension #Alcohol abuse #Tobacco abuse Medications at Discharge Home Medications omeprazole 40 mg capsule,delayed release 40 mg PO DAILY #30 caps 02/22/22 ondansetron 4 mg disintegrating tablet 4 mg PO Q8H PRN nausea and vomiting #30 tabs 02/22/22 sucralfate 100 mg/mL oral suspension (Carafate) 10 ml PO BID PRN GERD 07/28/22 enoxaparin 100 mg/mL subcutaneous syringe (Lovenox) 90 mg (0.9 mL) subcut Q24H #10 mL 08/05/22 levofloxacin 750 mg tablet 750 mg PO DAILY 5 days #5 tabs 08/05/22 lisinopril 5 mg tablet 5 mg PO DAILY 30 days #30 tabs 08/05/22 oxycodone 5 mg tablet 10 mg PO Q6H PRN PRN Pain Score 6-10 4 days #32 tabs 08/05/22 psyllium husk 3.4 gram/5.4 gram oral powder (Metamucil) 1 tbsp PO TID #660 grams 08/05/22 sennosides 8.6 mg-docusate sodium 50 mg tablet (Stool Softener-Stimulant Laxative) 2 tab PO BID 30 days #60 tabs 08/05/22 tizanidine 2 mg tablet 2 mg PO Q6H PRN PRN back pain 4 days #16 tabs 08/05/22 Hospital Course Procedures - (MRCP, CTA) Summary of Care Provided Minutes Spent on Discharge: 60 Hospital Course: 42-year-old female with a history of alcohol abuse, tobacco use, pancreatitis presented to [facility] 07/28/2022 with abdominal pain/nausea/vomiting. It felt similar to previous episodes of pancreatitis and previous episodes had been presumed to be due to her alcohol intake. She was found to have heart rate of 106, leukocytosis mild at 11.9 with mild left shift. Potassium of 2.8 with normal renal function and AST 51, ALT 67 alk phos 131 with a lipase of 9420. She did have CT abdomen pelvis in the ED which demonstrated findings consistent with acute pancreatitis as well as a focal nonocclusive thrombus at the junction of the superior mesenteric vein and portal vein, varices in the splenic hilum and hepatomegaly with fatty infiltration of the liver. She was given aggressive IV fluids, pain medications, antiemetics and admitted and GI was consulted. She was treated with fluids and pain control and MRCP demonstrated mildly dilated common bile duct at 0.68. Repeat CT performed 07/30 showed low-attenuation foci in pancreatic tail and focal necrosis cannot be excluded. Should begin to clinically improve and diet was slowly advanced. Goal for eventual ERCP but deemed that this would be safest to do in the future basis. During her admission she did also have CTA which demonstrated nonocclusive portal vein thrombus with filling defect in the left gonadal vein concerning for thrombus. She was placed on heparin drip and oncology hematology consulted. He was recommended to repeat CTA to verify stability of clot and repeat verified stability and it was recommended that she be transition to Lovenox and that she get a D-dimer drawn and follow with him in the office so that he can decide on further anticoagulation. During hospital stay she did develop increased cough and congestion and did have an infiltrate observed on CT scan and was treated for hospital-acquired pneumonia with vancomycin, cefepime, azithromycin. Was called later that day as she developed a rash but all were given at roughly the same time it was unclear which one was the culprit. Did have raised rash with only mild itching, no lesions on mucous membrane and no difficulty swallowing or breathing. Given it was unclear which antibiotic was the culprit all 3 were stopped and after negative MRSA swab she was transitioned to Levaquin and her rash resolved. Also during admission she reported that she has had weight leakage from bilateral areolas for 6 to 12 months and small amounts but has been unchanged. Prolactin was elevated given her age, gender, non status as the upper limit of normal is 30 and her a.m. level was 84.7. She had no vision or neurological complaints. test negative, TSH within normal limits, no medicine identified that would be the culprit. Possible that it is alcohol induced, given specific instructions for follow-up for this as she will likely need mammogram (though given bilateral less likely the culprit) and MRI or with cessation of alcohol this may resolve. On the day of discharge still had some waxing and waning abdominal pain but was able to tolerate p.o., minimal nausea, tolerating oral pain medication. Discharge instructions as followed: DISCHARGE INSTRUCTIONS PLEASE READ *Please take this with you to your next doctors appointment* -You were found to have pneumonia during your hospitalization and were started on antibiotic, you will need 5 more days of this antibiotic Levaquin 750 mg daily with your next dose tomorrow -You will be sent with a short course of pain medication, oxycodone in addition to Flexeril, as well to take as needed as your abdominal pain continues to improve.? It is very important that you do not drink alcohol while taking this medication or take any other controlled substances. The oxycodone will be 5mg tabs with instructions to take up to two tabs four times daily as needed for pain in addition to tizanidine 2 mg tablet every 6 hours as needed for pain -Due to your constipation you will be discharged on senna docusate 2 tabs twice daily and would recommend obtaining qaqz-ula-fntiqem metamucil which you will take 1 tablespoon 3 times daily.? [facility] to [facility]ist will be able to assist you.? Once you began having regular bowel movements you can take the senna docusate as needed but continue to take the psyllium daily.? Would advise this regimen even after you are no longer taking the oxycodone -Your blood pressure medications changed, you no longer take amlodipine as there is a small but possible risk of it contributing to pancreatitis.? You have been switched to lisinopril which she will take daily, a prescription of this has been sent to your preferred pharmacy on file. -You will need to follow-up with Dr. Salamanca with GI in his office upon discharge.? Please call his office to schedule your hospital follow-up appointment (ph. [phone]).? He wants to see him in 1 month.? I left a voicemail with the office prior to discharge with your information and phone number as well as this timeframe however if you do not hear from anyone within 24 business hours please call the office to inquire about scheduling -You will need a repeat CT scan in approximately 14 days and repeat lab work (ESR, CRP, lactic acid) at that time.? When you speak to Dr. Salamanca's office about your hospital follow-up appointment please inquire about scheduling these as well -You will be discharged on Lovenox which you will inject subcutaneously every morning. -You will need to follow with Dr. Urena, the blood doctor, on discharge.? Please call upon discharge to schedule your hospital follow-up appointment.? I called Dr. Urena's office to inquire about scheduling appointment and left a voicemail with your preferred phone number on file ([phone]) and asked that they call to schedule an appointment with you.? If you do not hear from anyone within 24-48 business hours please call to inquire about your hospital follow-up appointment -It will be incredibly important that you establish with a primary care physician as soon as you are discharged for further coordination of care.? Additionally you were found to have an elevated prolactin while you were admitted and will need an MRI of your head and a mammogram on an outpatient basis. -You also were given 3 antibiotics when you were diagnosed with pneumonia in the hospital, azithromycin, cefepime, vancomycin and he developed a rash.? You did not have any throat swelling or changes in your breathing but given it was unclear which medication caused the rash you were changed to a different medication overall.? Would advise informing future doctors offices and care team during hospitalizations that you received these 3 medications but are unsure which one caused the rash. -It is strongly advised that you refrain from any alcohol drinking.? Please call Counts include [phone] beds at the [facility] located at [address] [place], [place] [id number] (ph [phone]) if you are interested in further resources or use the contact information provided to you -Please call a primary care office on Monday to schedule an establish care visit -Any new prescriptions were sent to your preferred pharmacy on file the [facility] on [facility] -For any concerning signs or symptoms please call 911 or proceed to the nearest emergency department Physical Exam Narrative General: Alert, oriented, no apparent distress HEENT: Atraumatic, normocephalic Eyes: Anicteric, normal conjunctiva, extraocular movements grossly intact Neck: Supple Respiratory: Somewhat coarse in left lower lung base, normal respiratory effort Cardiovascular: Regular rate and rhythm GI: Soft, tenderness improving, nondistended Extremities: No edema Musculoskeletal: Moving all extremities Neuro: No overt focal neurological deficits Skin: Red patchy rash is resolved Psych: Cooperative Weight / BMI Weight Weight: 61.689 kg Body Mass Index (BMI) 23.3 ABG / Lab / Microbiology Data Result Diagrams: 08/04/22 05:45 08/04/22 05:45 Laboratory: Laboratory Results - last 24 hr 08/04/22 16:08: Urine Test Negative Microbiology: Microbiology 08/03/22 13:56 Mucosa - Nose Respiratory Panel (PCR) - Final 08/03/22 09:00 Interface Orders Legionella Antigen - Final 08/03/22 09:00 Interface Orders Streptococcus pneumoniae Antigen (M - Final 08/03/22 08:35 Nasal Secretion SARS-CoV-2 Antigen (Rapid) - Final 08/03/22 07:52 Mucosa - Nasopharyngeal Influenza Types A,B Direct FA (TERRELL) - Final 07/30/22 11:26 Interface Orders Group A Streptococcus Rapid Screen - Final 07/30/22 08:55 Nasal Secretion SARS-CoV-2 Antigen (Rapid) - Final D/C Instructions Discharge Diet: No restrictions Meaningful Use Info Meaningful Use Diagnoses (Choose all that apply): None applicable Discharge Plan Admission Admit Date/Time: 07/28/22 10:06 Primary Reason for Your Visit: Abdominal pain Attending Provider: Monika Crouch Primary Care Provider: Care Physician,No Primary Consulting Providers: Jovanna Leonard ; Jose Francisco Emmanuel ; Lonnie Urena ; Jose Antonio Krishnamurthy ; René Read ; Florentin Blanc ; Roberto Pagan ; Jeovany Gilbert ; Joan Ballesteros STUDENT NURSE Instructions Patient Instructions: ED Pancreatitis Additional Instructions / Restrictions: DISCHARGE INSTRUCTIONS PLEASE READ *Please take this with you to your next doctors appointment* -You were found to have pneumonia during your hospitalization and were started on antibiotic, you will need 5 more days of this antibiotic Levaquin 750 mg daily with your next dose tomorrow -You will be sent with a short course of pain medication, oxycodone in addition to Flexeril, as well to take as needed as your abdominal pain continues to improve. It is very important that you do not drink alcohol while taking this medication or take any other controlled substances. The oxycodone will be 5mg tabs with instructions to take up to two tabs four times daily as needed for pain in addition to tizanidine 2 mg tablet every 6 hours as needed for pain -Due to your constipation you will be discharged on senna docusate 2 tabs twice daily and would recommend obtaining suhp-rwc-hbqjpec metamucil which you will take 1 tablespoon 3 times daily. If you are unable to locate this at the drugstore your pharmacist will be able to assist you. Once you began having regular bowel movements you can take the senna docusate as needed but continue to take the psyllium daily. Would advise this regimen even after you are no longer taking the oxycodone -Your blood pressure medications changed, you no longer take amlodipine as there is a small but possible risk of it contributing to pancreatitis. You have been switched to lisinopril which she will take daily, a prescription of this has been sent to your preferred pharmacy on file. -You will need to follow-up with Dr. Salamanca with GI in his office upon discharge. Please call his office to schedule your hospital follow-up appointment (ph. [phone]). He wants to see him in 1 month. I left a voicemail with the office prior to discharge with your information and phone number as well as this timeframe however if you do not hear from anyone within 24 business hours please call the office to inquire about scheduling -You will need a repeat CT scan in approximately 14 days and repeat lab work (ESR, CRP, lactic acid) at that time. When you speak to Dr. Salamanca's office about your hospital follow-up appointment please inquire about scheduling these as well -You will be discharged on Lovenox which you will inject subcutaneously every morning. -You will need to follow with Dr. Urena, the blood doctor, on discharge. Please call upon discharge to schedule your hospital follow-up appointment. I called Dr. Urena's office to inquire about scheduling appointment and left a voicemail with your preferred phone number on file ([phone]) and asked that they call to schedule an appointment with you. If you do not hear from anyone within 24-48 business hours please call to inquire about your hospital follow-up appointment -It will be incredibly important that you establish with a primary care physician as soon as you are discharged for further coordination of care. Additionally you were found to have an elevated prolactin while you were admitted and will need an MRI of your head and a mammogram on an outpatient basis. -You also were given 3 antibiotics when you were diagnosed with pneumonia in the hospital, azithromycin, cefepime, vancomycin and he developed a rash. You did not have any throat swelling or changes in your breathing but given it was unclear which medication caused the rash you were changed to a different medication overall. Would advise informing future doctors offices and care team during hospitalizations that you received these 3 medications but are unsure which one caused the rash. -It is strongly advised that you refrain from any alcohol drinking. [facility] at [address] [place], [place] [phone] (ph [phone]) if you are interested in further resources or use the contact information provided to you -Please call a primary care office on Monday to schedule an establish care visit -Any new prescriptions were sent to your preferred pharmacy on file the [facility] on [facility] -For any concerning signs or symptoms please call 911 or proceed to the nearest emergency department Discharge Orders/Prescriptions Prescriptions: New enoxaparin [Lovenox] 100 mg/mL syringe 90 mg subcut Q24H Qty: 10 3RF lisinopril 5 mg Tablet 5 mg PO DAILY 30 Days Qty: 30 3RF levofloxacin 750 mg tablet 750 mg PO DAILY 5 Days Qty: 5 0RF Rx Instructions: Start 08/06/22 oxycodone 5 mg Tablet 10 mg PO Q6H PRN PRN (Reason: Pain Score 6-10) 4 Days Qty: 32 0RF tizanidine 2 mg Tablet 2 mg PO Q6H PRN PRN (Reason: back pain) 4 Days Qty: 16 0RF Metamucil 3.4 gram/5.4 gram powder 1 tbsp PO TID Qty: 660 0RF Rx Instructions: mix into at least 8 oz of water or juice before administering. OBTAIN OVERT THE COUNTER Continued omeprazole 40 mg capsule,delayed release(DR/EC) 40 mg PO DAILY Qty: 30 1RF ondansetron 4 mg tablet,disintegrating 4 mg PO Q8H PRN (Reason: nausea and vomiting) Qty: 30 0RF sucralfate [Carafate] 100 mg/mL suspension 10 ml PO BID PRN (Reason: GERD) Changed sennosides-docusate sodium [Stool Softener-Stimulant Laxat] 8.6-50 mg Tablet 2 tab PO BID 30 Days Qty: 60 3RF Discontinued amlodipine 10 mg Tablet 10 mg PO DAILY Qty: 30 0RF Rx Instructions: Hold for SBP less than 130 mmHg ibuprofen [Motrin IB] 200 mg Tablet 800 mg PO Q4H PRN (Reason: Pain) Referrals / Follow Up: Lonnie Urena MD [Med Staff - Active Staff] - See Referral Note (You will need to follow with Dr. Urena, the blood doctor, on discharge. Please call upon discharge to schedule your hospital follow-up appointment.) Chandler Salamanca DO [Med Staff - Active Staff] - Within 1 Month (You will need to follow-up with Dr. Friend with GI in his office upon discharge. Please call his office to schedule your hospital follow-up appointment (ph. [phone]). He wants to see him in 1 month. I left a voicemail with the office prior to discharge with your information and phone number as well as this timeframe however if you do not hear from anyone within 24 business hours please call the office to inquire about scheduling) Care Physician,No Primary [Primary Care Provider] - Disposition Disposition (needs filled in before D/C Order can be placed): Home, Self Care Charges/Coding Visit Charges Inpatient E&M: 04703 Disch Hosp >30min
== END 2022-08-05 16:00 | disposition home or self-care (01) | DRG 282 ==
LOC: ED 10:18 → MS3 10:20
PROVIDERS: Emergency Medicine; Family Medicine; Internal Medicine Gastroenterology; Admitting Provider Internal Medicine; Emergency Provider Emergency Medicine; Visit Provider Internal Medicine
DX: K85.21 Alcohol induced acute pancreatitis with uninfected necrosis (principal); K55.069 Acute infarction of intestine, part and extent unspecified; I81 Portal vein thrombosis; D68.59 Other primary thrombophilia; J18.9 Pneumonia, unspecified organism; J90 Pleural effusion, not elsewhere classified; D72.12 Drug rash with eosinophilia and systemic symptoms syndrome; B18.9 Chronic viral hepatitis, unspecified; K83.8 Other specified diseases of biliary tract; K70.10 Alcoholic hepatitis without ascites; K76.0 Fatty (change of) liver, not elsewhere classified; F10.10 Alcohol abuse, uncomplicated; E87.6 Hypokalemia; I10 Essential (primary) hypertension; F17.210 Nicotine dependence, cigarettes, uncomplicated; K21.9 Gastro-esophageal reflux disease without esophagitis; E83.42 Hypomagnesemia; K85.91 Acute pancreatitis with uninfected necrosis, unspecified; R16.0 Hepatomegaly, not elsewhere classified; K86.89 Other specified diseases of pancreas; R74.01 Elevation of levels of liver transaminase levels; Z79.01 Long term (current) use of anticoagulants; N28.1 Cyst of kidney, acquired
CPT/HCPCS: 36415; 71045; 74175; 74177; 74181; 80048; 80053; 80076; 81001; 81025; 81240; 81241; 82140; 82150; 82784; 82787; 83605; 83690; 83735; 84100; 84146; 84165; 84443; 84484; 84703; 85018; 85025; 85300; 85301; 85302; 85303; 85379; 85610; 85652; 85730; 86140; 86146; 86147; 86225; 86235; 86256; 86334; 87426; 87449; 87633; 87641; 87804; 87880; 93005; 94668; 99284; 99406; J7030; J7040; J7050; J7120; Q9967; A4216; J1940; J2405; J3490

== ENCOUNTER 2022-08-23 13:41 | Emergency (ER) | payer MEDICAID, SELFPAY ==
[2022-08-23 13:42] VITALS: BP 108/89; PULSE 103; RESP 18; TEMP 36.1; O2SAT 98; BMI 21.6
--- NOTE | 2022-08-23 14:07 | ED.VIS.GI ---
HPI HPI - GI History of Present Illness Chief Complaint: Abd Pain Narrative Narrative: 42-year-old female past medical history of frequent pancreatitis, states she was admitted to the hospital for 9 days and released a few weeks ago. She presents reportedly from Dr. Urena's office with reported low blood pressure and epigastric pain that began yesterday. While she states her previous pancreatitis was most likely secondary to alcohol, she states she has not had anything to drink alcoholic orr since she was released from the hospital. While she was admitted, she states that they found a blood clot from my liver to my ovary and she has to take Lovenox. That is why she was seeing the investigator internal revenue today. She denies any fevers or chills. No nausea or vomiting because she states she is on medication for nausea. 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 She presents with the same symptoms of her previous pancreatitis. She states she had been doing well since then when she was released from the hospital, but is having increased pain in the epigastrium. PFSH [facility] Medical History Alcohol abuse Pancreatitis Smoker Home Medications omeprazole 40 mg capsule,delayed release 40 mg PO DAILY #30 caps 02/22/22 [Rx Last Taken 07/28/22 03:00] ondansetron 4 mg disintegrating tablet 4 mg PO Q8H PRN nausea and vomiting #30 tabs 02/22/22 [Rx Last Taken 07/28/22 03:00] lisinopril 5 mg tablet 5 mg PO DAILY 30 days #30 tabs 08/05/22 [Rx Last Taken Unknown] psyllium husk 3.4 gram/5.4 gram oral powder (Metamucil) 1 tbsp PO TID #660 grams 08/05/22 [Rx Last Taken Unknown] sennosides 8.6 mg-docusate sodium 50 mg tablet (Stool Softener-Stimulant Laxative) 2 tab PO BID 30 days #60 tabs 08/05/22 [Rx Last Taken Unknown] zcotos-qsnerkhc-nwntvbv 24,000-76,000-120,000 unit capsule,delayed rel (Creon) 1 cap PO TID 30 days #90 caps 08/10/22 [Rx Last Taken Unknown] metoclopramide HCl 5 mg tablet 5 mg PO Q6H PRN nausea and vomiting #60 tabs 08/10/22 [Rx Last Taken Unknown] scopolamine base 1 mg over 3 days transdermal patch 1 patch transdermal Q3D PRN nausea and vomiting #4 ea 08/10/22 [Rx Last Taken Unknown] tramadol 50 mg tablet 50 mg PO Q6H PRN pain #30 tabs 08/10/22 [Rx Last Taken Unknown] enoxaparin 100 mg/mL subcutaneous syringe (Lovenox) 90 mg (0.9 mL) subcut Q24H #10 mL 08/23/22 [Rx Last Taken Unknown] Allergy/AdvReac Type Severity Reaction Status Date / Time No Known Allergies Allergy Verified 08/23/22 13:43 Surgical History H/O tubal ligation Social History household members: significant other and children housing: house Smoking Status: Current every day smoker tobacco type: cigarettes alcohol intake: current details: Drinks approximately 4 shots of vodka a day and cranberry juice substance use type: does not use ROS ROS ED ROS Narrative Constitutional: No fever, no chills. HEENT: No sore throat. No neck pain. No loss of vision. No rhinorrhea. Cardiovascular: No chest pain. No palpitations. No pedal edema. Respiratory: No cough, no shortness of breath. Abdominal: Epigastric abdominal pain/pancreatitis abdominal pain. No nausea. No vomiting. Genitourinary: No dysuria. No hematuria. Musculoskeletal: No myalgias. No arthralgias. Neurologic: No headaches. No dizziness. No lightheadedness. Skin: No rash. No change in color. Psychiatric: No depression. No anxiety. EXAM Physical Exam Narrative Exam Narrative: Afebrile. Vital signs noted. HEENT: Normocephalic. Atraumatic. PERRL, EOMI. Neck soft and supple. No point tenderness or step off. Cardiovascular: Regular rate and rhythm. No murmurs, rubs, or gallops appreciated. Respiratory: No tachypnea. Lungs clear to auscultation bilaterally. Gastrointestinal: Abdomen soft, positive tenderness to palpation epigastrium, with normoactive bowel sounds. No rebound or guarding. Neurological: Awake. Alert. Nonfocal, nonlateralizing. Skin: No rash. Normal color. No pallor. Musculoskeletal: No pedal edema. Full range of motion extremities. Const Vital Signs: 08/23/22 13:42 Temperature 97 F L Temperature Source Temporal Pulse Rate 103 H Respiratory Rate 18 Blood Pressure 108/89 H Blood Pressure Mean 95 Pulse Ox 98 Oxygen Delivery Method Room Air MDM MDM MDM Narrative Medical decision making narrative: I reviewed the patient's prior inpatient and outpatient records, along with ED visits. She did have in the past lipase is elevated between 3000 and 9000.. She had CTA of the abdomen according to Dr. Salamanca's note which showed nonocclusive thrombus, hence the reason why she is on Lovenox. Her regular CT did show findings consistent with pancreatitis. She will be given fentanyl 50 mcg for analgesia here as she has tenuous blood pressure. She is mildly tachycardic/intermittently so she will be bolused normal saline 1 L intravenously. Pancreatitis work-up will be pursued again including CBC, CMP, and lipase. In the past, she has had transamination. I reviewed her laboratory work and she has a normal white count of 8.5, hemoglobin normal at 13.8, hematocrit 41.6. Normal platelet count of 331. CMP was obtained and is grossly unremarkable except for glucose of 137 9 gap of 6. AST and ALT are normal at 21 and 26 respectively. Normal alk phos of 88. Lipase is normal at 221. She received fentanyl for her pain initially because of borderline blood pressure. She states this was ineffective at treating her pain so she received Dilaudid 1 mg as she had in the past going through her prior records and ED visit. I discussed patient with Dr. Urena who had seen her in the office today and sent her in for evaluation. He states that he wanted to make sure that there was no propagation of her venous portal thrombus. CTA of the abdomen and pelvis was obtained. I reviewed the radiology report and it reports minimal residual thrombus in the venous portal vein at the junction of the superior mesenteric vein. It is otherwise unremarkable for pancreatitis or other acute pathology. I read discussed the patient with Dr. Urena, who states that the patient can be seen in the office in 2 weeks and she is to continue her Lovenox. I feel she can be discharged safely home with follow-up. I am unsure as to the cause of her epigastric abdominal pain, but I do not feel that she requires admission. Disposition is discharged home in stable condition. History & Record Review Discussion w/independent historian: Patient Additional record(s) reviewed:: Prior inpatient record, Prior ED visit and Prior labs Lab Data Attestation: I reviewed the patient's lab results. Labs: Laboratory Results - last 24 hr 08/23/22 08/23/22 08/23/22 14:14 14:14 14:30 WBC 8.5 RBC 4.33 Hgb 13.8 Hct 41.6 MCV 96.1 MCH 31.9 MCHC 33.2 RDW Std Deviation 43.5 RDW Coeff of Frankie 12.4 Plt Count 331 MPV 10.4 Immature Gran % (Auto) 0.200 Neut % (Auto) 58.1 Lymph % (Auto) 32.8 [place] % (Auto) 6.1 Eos % (Auto) 2.0 Baso % (Auto) 0.8 Absolute Neuts (auto) 4.9 Absolute Lymphs (auto) 2.79 Nucleated RBC % 0 Sodium 136 Potassium 3.7 Chloride 106 Carbon Dioxide 24.0 Anion Gap 6 BUN 15 Creatinine 0.68 Estim Creat Clear Calc 92.12 Est GFR (MDRD) Af Amer 122 Est GFR (MDRD) Non-Af 101 BUN/Creatinine Ratio 22.1 H Glucose 137 H Calcium 9.1 Total Bilirubin 0.30 AST 21 ALT 26 Alkaline Phosphatase 88 Total Protein 7.2 Albumin 3.5 Globulin 3.7 Albumin/Globulin Ratio 0.9 Lipase 221 Urine Color Yellow Urine Clarity Sl. Cloudy Urine pH 6.5 Ur Specific [place] 1.015 Urine Protein 15 H Urine Glucose (UA) Normal Urine Ketones Negative Urine Occult Blood Negative Urine Nitrite Negative Urine Bilirubin Negative Urine Urobilinogen Normal Ur Leukocyte Esterase 25 H Urine RBC 0 SEEN Urine WBC 0-5 SEEN Ur Squamous Epith Cells 0-5 SEEN Urine Bacteria 1+ Urine Mucus 0 SEEN Radiography Diagnostic Testing: Clinical Impression(s) from Imaging Studies Abdomen/Pelvis CTA 08/23/22 15:07 IMPRESSION: Minimal residual focal thrombus seen in the portal vein at the junction of the superior mesenteric vein. Electronically Signed: Christos Krause MD at 15:48 EDT , Discharge Plan Triage Chief Complaint: Abd Pain ED Provider: Reodica,Baron Dx/Rx/DC Orders Clinical Impression: Portal vein thrombosis, Abdominal pain Instructions: ED Abdominal Pain Unkn Cause Fem Prescriptions: No Action Creon 24,000-76,000 -120,000 unit capsule,delayed release(DR/EC) 1 cap PO TID 30 Days Qty: 90 3RF Rx Instructions: administer with meals and/or snacks metoclopramide HCl 5 mg tablet 5 mg PO Q6H PRN (Reason: nausea and vomiting) Qty: 60 0RF Rx Instructions: administer 30 minutes before meals scopolamine base 1 mg over 3 days patch 3 day 1 patch transdermal Q3D PRN (Reason: nausea and vomiting) Qty: 4 1RF tramadol 50 mg tablet 50 mg PO Q6H PRN (Reason: pain) Qty: 30 0RF enoxaparin [Lovenox] 100 mg/mL syringe 90 mg subcut Q24H Qty: 10 3RF omeprazole 40 mg capsule,delayed release(DR/EC) 40 mg PO DAILY Qty: 30 1RF ondansetron 4 mg tablet,disintegrating 4 mg PO Q8H PRN (Reason: nausea and vomiting) Qty: 30 0RF lisinopril 5 mg Tablet 5 mg PO DAILY 30 Days Qty: 30 3RF Metamucil 3.4 gram/5.4 gram powder 1 tbsp PO TID Qty: 660 0RF Rx Instructions: mix into at least 8 oz of water or juice before administering. OBTAIN OVERT THE COUNTER sennosides-docusate sodium [Stool Softener-Stimulant Laxat] 8.6-50 mg Tablet 2 tab PO BID 30 Days Qty: 60 3RF Primary Care Provider: Care Physician,No Primary Referrals: Lonnie Urena MD [Med Staff - Active Staff] - As soon as possible Care Physician,No Primary [Primary Care Provider] - Activity Restrictions/Additional Instructions: Continue your Lovenox as previously directed. Follow-up with Dr. Urena when possible. Disposition Disposition: Home, Self Care
[2022-08-23 14:22] LABS: Absolute Lymphocyte Count 2.79 X10^3/uL (0.83-4.51); Absolute Neutrophil Count 4.9 X10^3/uL (2.0-7.7); Basophil# 0.07 X10^3/uL; Basophil% 0.8 % (0-1); Eosinophil# 0.17 X10^3/uL; Hematocrit 41.6 % (37-47); Hemoglobin 13.8 g/dL (12.0-15.0); Lymphocyte # 2.79 X10^3/ul (0.83-4.51); Lymphocyte % 32.8 % (19-41); Mean Corp Hgb Conc 33.2 g/dL (32-36); Mean Corpuscular Hgb 31.9 pg (27.0-32.0); Mean Corpuscular Volume 96.1 fL (81-99); Mean Platelet Vol. 10.4 fl (6.2-12.0); Monocyte# 0.52 X10^3/uL; Monocyte% 6.1 % (0-10); NRBC Flagged by Analyzer 0 % (0-5); Neutrophil # 4.93 X10^3/uL (2.7-7.7); Neutrophil % 58.1 % (47-70); Platelet Count 331 K/mm3 (150-450); RBC Distribution Width CV 12.4 % (11.6-14.6); RBC Distribution Width SD 43.5 fl (35.1-43.9); Red Blood Count 4.33 M/mm3 (4.2-5.4); White Blood Count 8.5 K/mm3 (4.4-11.0)
[2022-08-23] MEDS: 0.9% Normal Saline 1,000 ML 1000 ML IV (14:23)
[2022-08-23] MEDS: fentaNYL 100 MCG/2 ML Ampul 50 MCG IV (14:23)
[2022-08-23 14:36] LABS: ALB/GLOB Ratio 0.9 RATIO (0.9-2.4); AST(SGOT) 21 U/L (15-37); Alanine Aminotransfer ALT/SGPT 26 U/L (13-56); Albumin, Serum 3.5 g/dL (3.2-5.0); Alkaline Phosphatase 88 U/L (45-117); Anion Gap 6 (5-15); BUN 15 mg/dL (7-18); BUN/Creat Ratio 22.1 RATIO (10-20); Calcium,Total 9.1 mg/dL (8.5-10.1); Chloride 106 mmol/L (98-107); Creatinine, Serum 0.68 mg/dL (0.55-1.02); EST Glomerular Filtration Rate 101 mL/min (>60); Est Glom Filt Rate - Afr Amer 122 mL/min (>60); Estimated Creatinine Clearance 92.12 ml/min; Globulin 3.7 g/dL (2.2-4.2); Glucose 137 mg/dL (74-106); Lipase 221 U/L (73-393); Potassium 3.7 mmol/L (3.5-5.1); Protein, Total 7.2 g/dL (6.4-8.2); Sodium Level 136 mmol/L (136-145)
[2022-08-23 14:36] LABS: Mucous, Urine 0 SEEN /hpf (<or=2+); Red Blood Cells-Urine 0 SEEN /hpf (0-5)
[2022-08-23 14:39] LABS: Color, Urine Yellow (Yellow); Glucose, Dipstick Normal (Normal); Ketone-Dipstick Negative (Negative); Leukocyte Esterase-Dipstick 25 /ul (Negative); Nitrite-Dipstick Negative (Negative); Occult Blood-Urine Negative /ul (Negative); Protein-Dipstick 15 mg/dl (Negative); Specific Gravity, Urine 1.015 (1.002-1.030); Urine Bilirubin Dipstick Negative (Negative); Urine Clarity Sl. Cloudy (Clear); Urine Urobilinogen Normal (Normal); Urine pH 6.5 (5.0 - 8.0)
[2022-08-23 14:48] LABS: Squamous Epithelial Cells - UA 0-5 SEEN /hpf (5-10)
[2022-08-23 14:49] LABS: Bacteria 1+ /hpf (None Seen); White Blood Cells 0-5 SEEN /hpf (0-5)
--- NOTE | 2022-08-23 15:07 | CT_ITS ---
INDICATION: pain EXAMINATION: CTA abdomen and pelvis - TECHNIQUE: Routine abdominal CT angiogram protocol was performed with IV contrast. MIP images provided. A radiation dose optimization technique was used for this scan. IV Contrast dosage and agent: Radiation dose DLP mGy / cm. COMPARISON: None. FINDINGS: Lung bases: Normal. Liver: Normal. No bile ductal dilatation. Minimal residual thrombus seen in the portal vein at the junction of the superior mesenteric vein. Gallbladder: Normal. Spleen: Normal. Adrenal gland: Normal. Kidneys: Normal. No hydronephrosis or stone formation. Pancreas:Normal. Bowel gas pattern: Nonobstructive. Appendix: Normal. Free air: None. Free fluid: None. Pelvis: Pelvic organs: No mass lesion noted. Bone survey: No aggressive bony lesions. No acute fractures. Adenopathy: No significant pathologic adenopathy detected. CT/CTA Abd/Pelvis W/WO Contrast IMPRESSION: Minimal residual focal thrombus seen in the portal vein at the junction of the superior mesenteric vein. Electronically Signed: Christos Krause MD at 15:48 EDT ,
[2022-08-23] MEDS: HYDROmorphone 1 MG/ML Syringe IV (15:10)
== END 2022-08-23 16:20 | disposition home or self-care (01) ==
PROVIDERS: Emergency Provider Emergency Medicine; Visit Provider Emergency Medicine
DX: I81 Portal vein thrombosis (principal); R10.9 Unspecified abdominal pain; R74.8 Abnormal levels of other serum enzymes; F17.210 Nicotine dependence, cigarettes, uncomplicated; Z79.01 Long term (current) use of anticoagulants
CPT/HCPCS: 74174; 80053; 81001; 83690; 85025; 99282; J7030; Q9967; A4216

== ENCOUNTER 2022-10-19 21:17 | Emergency (ER) | payer MEDICAID, SELFPAY ==
[2022-10-19 21:18] VITALS: BP 108/74; PULSE 110; RESP 18; TEMP 36.8; O2SAT 100; BMI 22.8
[2022-10-19 21:37] LABS: Mucous, Urine 0 SEEN /hpf (<or=2+); Squamous Epithelial Cells - UA 0 SEEN /hpf (5-10)
[2022-10-19 21:38] LABS: Absolute Lymphocyte Count 0.85 X10^3/uL (0.83-4.51); Absolute Neutrophil Count 9.6 X10^3/uL (2.0-7.7); Basophil# 0.06 X10^3/uL; Basophil% 0.5 % (0-1); Eosinophils% 0.8 % (0-5); Hematocrit 36.1 % (37-47); Hemoglobin 12.5 g/dL (12.0-15.0); Lymphocyte # 0.85 X10^3/ul (0.83-4.51); Mean Corp Hgb Conc 34.6 g/dL (32-36); Mean Corpuscular Hgb 32.1 pg (27.0-32.0); Mean Corpuscular Volume 92.8 fL (81-99); Mean Platelet Vol. 10.7 fl (6.2-12.0); Monocyte# 1.46 X10^3/uL; Monocyte% 12.1 % (0-10); NRBC Flagged by Analyzer 0 % (0-5); Neutrophil # 9.55 X10^3/uL (2.7-7.7); Neutrophil % 78.9 % (47-70); Platelet Count 165 K/mm3 (150-450); RBC Distribution Width SD 55.2 fl (35.1-43.9); Red Blood Count 3.89 M/mm3 (4.2-5.4); White Blood Count 12.1 K/mm3 (4.4-11.0)
[2022-10-19 21:42] LABS: Color, Urine Yellow (Yellow); Glucose, Dipstick Normal (Normal); Ketone-Dipstick Negative (Negative); Leukocyte Esterase-Dipstick 500 /ul (Negative); Nitrite-Dipstick Positive (Negative); Occult Blood-Urine 50 /ul (Negative); Protein-Dipstick 30 mg/dl (Negative); Urine Bilirubin Dipstick Negative (Negative); Urine Clarity Sl. Cloudy (Clear); Urine Urobilinogen Normal (Normal)
[2022-10-19 21:59] LABS: Internal QC Validated? YES +Cl - CLEAR BKGD; Pregnancy, Serum, hCG Quali. NEGATIVE Negative
[2022-10-19 22:00] LABS: Bacteria RARE /hpf (None Seen); Red Blood Cells-Urine 0-5 SEEN /hpf (0-5); White Blood Cells 5-10 SEEN /hpf (0-5)
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
--- NOTE | 2022-10-19 22:17 | CT_ITS ---
STUDY: CT ABDOMEN AND PELVIS WITH CONTRAST REASON FOR EXAM: Female, 42 years old. abdominal pain RADIATION DOSAGE (If Supplied By Facility): CTDIvol = ( 10.62 ) mGy, DLP = ( 410.25 ) mGycm TECHNIQUE: Transaxial images were obtained from the dome of the diaphragm to the symphysis pubis without oral contrast. IV 100mL Isovue-370 was administered. Sagittal and coronal images were reconstructed. Individualized dose optimization techniques were used for this CT. COMPARISON: 08/23/2022. FINDINGS: The visualized lung bases are unremarkable. The visualized portions of the heart are within normal limits. Normal liver. Normal gallbladder and extrahepatic biliary system. Normal spleen. Normal pancreas. Normal bilateral adrenal glands. Both kidneys appear enlarged since previous exam, with decreased cortical medullary differentiation and generally decreased enhancement. No hydronephrosis and no stones. The findings are nonspecific but suggest a bilateral inflammatory process such as pyelonephritis. Correlate with urinalysis. Evaluation of the GI tract is limited by absence of oral contrast. Cannot exclude stomach wall thickening. No dilated loops of bowel or evidence for obstruction. Cannot exclude segmental thickening of the culp of the small or large bowel. Cannot exclude enteritis or colitis. Moderate diffuse fecal retention. Appendix within normal limits. Normal abdominal aorta. Normal inferior vena cava. Normal retroperitoneum. Normal urinary bladder. Normal visualized uterus. Normal abdominal wall. Normal osseous structures. CT/Abdomen/Pelvis W IV Cont ONLY IMPRESSION: Abnormal appearance of the kidneys as above. Question a diffuse bilateral inflammatory process such as pyelonephritis. Electronically Signed: Marc Marie MD at 22:43 EDT ,
[2022-10-19 22:24] LABS: ALB/GLOB Ratio 0.7 RATIO (0.9-2.4); AST(SGOT) 38 U/L (15-37); Alanine Aminotransfer ALT/SGPT 72 U/L (13-56); Albumin, Serum 2.9 g/dL (3.2-5.0); Alkaline Phosphatase 151 U/L (45-117); Anion Gap 11 (5-15); BUN 25 mg/dL (7-18); BUN/Creat Ratio 21.6 RATIO (10-20); Calcium,Total 8.3 mg/dL (8.5-10.1); Chloride 94 mmol/L (98-107); Creatinine, Serum 1.16 mg/dL (0.55-1.02); EST Glomerular Filtration Rate 54 mL/min (>60); Est Glom Filt Rate - Afr Amer 66 mL/min (>60); Globulin 3.9 g/dL (2.2-4.2); Glucose 104 mg/dL (74-106); Potassium 3.2 mmol/L (3.5-5.1); Protein, Total 6.8 g/dL (6.4-8.2); Sodium Level 130 mmol/L (136-145)
[2022-10-19 22:32] LABS: Lipase 20 U/L (13-75)
[2022-10-19] MEDS: Ondansetron 4 MG/2 ML Vial IV (23:19)
[2022-10-19] MEDS: HYDROmorphone 1 MG/ML Syringe IV (23:19)
[2022-10-20] MEDS: Potassium Chloride Oral Tablet 20 MEQ 40 MEQ PO (00:18)
[2022-10-20] MEDS: Ceftriaxone 1 GM/50 ML BAG IV (00:18)
[2022-10-20 00:41] VITALS: PULSE 89; RESP 16; O2SAT 97
== END 2022-10-20 00:55 | disposition home or self-care (01) ==
PROVIDERS: Emergency Provider Emergency Medicine; Visit Provider Emergency Medicine
DX: N39.0 Urinary tract infection, site not specified (principal); R10.9 Unspecified abdominal pain; I81 Portal vein thrombosis; E87.6 Hypokalemia; Z79.899 Other long term (current) drug therapy; F17.210 Nicotine dependence, cigarettes, uncomplicated
CPT/HCPCS: 36415; 74177; 80053; 81001; 83615; 83690; 84703; 85025; 85379; 85610; 85730; 87086; 87088; 87186; 99282; Q9967; A4216; J2405

== ENCOUNTER → 2022-12-01 | Outpatient (CLI) | payer SELFPAY ==
--- NOTE | 2022-12-01 07:07 | CT_ITS ---
INDICATION: portal vein thrombosis, enlarged kidneys EXAMINATION: CTA abdomen and pelvis - TECHNIQUE: Multiphase abdominal CT angiogram protocol was performed without and with IV contrast. MIP images provided. A radiation dose optimization technique was used for this scan. IV Contrast dosage and agent: 100 cc of Isovue-370 RADIATION DOSAGE (If Supplied By Facility): CTDIvol = ( 12.00 ) mGy, DLP = ( 1033.78 ) mGycm COMPARISON: 10/19/2022. FINDINGS: Lung bases: Unremarkable. Normal heart size. Liver: Hepatic steatosis. The visualized 2.5 cm hypodense area anteriorly on axial images - series 5. Patent portal vein. Gallbladder: No evidence of cholelithiasis. Spleen: Normal. Adrenal gland: Normal. Kidneys: Unremarkable kidneys. No hydronephrosis or stone formation. Pancreas:Unremarkable. Bowel gas pattern: Normal in caliber small bowel loops. Fecal retention no evidence of acute diverticulitis. Appendix: Not visualized. Free air: None. Free fluid: None. Pelvis: Pelvic organs: No pelvic mass. Mild thickening of the bladder wall probably due to underdistention. Bone survey: No aggressive bony lesions. No acute fractures. Adenopathy: No significant pathologic adenopathy detected. Other: None. Vascular: No evidence of abdominal aortic aneurysm. Patent celiac axis, SMA, bilateral renal arteries and JEANINE. CT/CTA Abd/Pelvis W/WO Contrast IMPRESSION: 1. Mild hepatic steatosis. 2. Vague low-density lesion in the anterior aspect of the left lobe likely representing focal fatty infiltration. 3. Patent portal vein. 4. No focal acute inflammatory process. Electronically Signed: Esvin Go MD at 9:29 EDT ,
[2022-12-01 07:36] LABS: CREATININE FINGERSTICK < 0.9 mg/dL (0.55-1.02); EGFR FINGERSTICK > 60.0000 mL/min (>60)
== END | disposition home or self-care (01) ==
LOC: CT 07:06
PROVIDERS: Referring Provider Internal Medicine Medical Oncology; Visit Provider Internal Medicine Medical Oncology
DX: I81 Portal vein thrombosis (principal); R79.89 Other specified abnormal findings of blood chemistry; R10.9 Unspecified abdominal pain; N28.81 Hypertrophy of kidney
CPT/HCPCS: 74174; Q9967

== ENCOUNTER 2022-12-14 11:21 | Inpatient (IN) | payer SELFPAY ==
[2022-12-14 11:22] VITALS: BP 161/97; PULSE 121; RESP 16; TEMP 36.2; O2SAT 99; BMI 22.3
[2022-12-14] MEDS: Dicyclomine 20 MG/2 ML Vial IM (13:55)
[2022-12-14] MEDS: 0.9% Normal Saline 1,000 ML 1000 ML IV (13:55)
[2022-12-14] MEDS: Ondansetron 4 MG/2 ML Vial IV (13:55)
[2022-12-14 14:11] LABS: Absolute Lymphocyte Count 0.87 X10^3/uL (0.83-4.51); Absolute Neutrophil Count 4.7 X10^3/uL (2.0-7.7); Basophil# 0.04 X10^3/uL; Basophil% 0.7 % (0-1); Eosinophil# 0.13 X10^3/uL; Eosinophils% 2.2 % (0-5); Hematocrit 38.9 % (37-47); Hemoglobin 13.1 g/dL (12.0-15.0); Lymphocyte # 0.87 X10^3/ul (0.83-4.51); Lymphocyte % 14.5 % (19-41); Mean Corp Hgb Conc 33.7 g/dL (32-36); Mean Corpuscular Hgb 33.3 pg (27.0-32.0); Mean Platelet Vol. 9.4 fl (6.2-12.0); NRBC Flagged by Analyzer 0 % (0-5); Neutrophil # 4.66 X10^3/uL (2.7-7.7); Neutrophil % 77.4 % (47-70); Platelet Count 247 K/mm3 (150-450); RBC Distribution Width SD 54.9 fl (35.1-43.9); Red Blood Count 3.93 M/mm3 (4.2-5.4)
[2022-12-14 14:34] LABS: ALB/GLOB Ratio 0.8 RATIO (0.9-2.4); AST(SGOT) 557 U/L (15-37); Alanine Aminotransfer ALT/SGPT 272 U/L (13-56); Albumin, Serum 3.5 g/dL (3.2-5.0); Alkaline Phosphatase 134 U/L (45-117); Anion Gap 7 (5-15); BUN 8 mg/dL (7-18); BUN/Creat Ratio 13.1 RATIO (10-20); Calcium,Total 9.4 mg/dL (8.5-10.1); Chloride 99 mmol/L (98-107); Creatinine, Serum 0.61 mg/dL (0.55-1.02); EST Glomerular Filtration Rate 114 mL/min (>60); Est Glom Filt Rate - Afr Amer 138 mL/min (>60); Estimated Creatinine Clearance 102.69 ml/min; Globulin 4.2 g/dL (2.2-4.2); Glucose 118 mg/dL (74-106); Lipase 787 U/L (13-75); Potassium 2.7 mmol/L (3.5-5.1); Protein, Total 7.7 g/dL (6.4-8.2); Sodium Level 135 mmol/L (136-145)
--- NOTE | 2022-12-14 14:35 | CM.ED ---
Social Work Referral Source: case find Referral Reason: resources SW met with patient and introduced herself and role as [facility] Spice Blender. Patient lying on hospital bed and agreeable to speak with SW. SW inquired about patient's insurance and coverage. Patient reports she missed reapplying but should still qualify. SW provided patient with information regarding applying for Medicaid and discussed back coverage if eligible. SW also provided patient with information regarding resources in [facility]. Patient receptive towards information and reports no other needs. SW remains available if needs arise. Claire Hernandez NEWSSTAND VENDOR, [place]
[2022-12-14 14:50] LABS: Mucous, Urine 0 SEEN /hpf (<or=2+)
[2022-12-14 14:53] LABS: Color, Urine Yellow (Yellow); Glucose, Dipstick Normal (Normal); Ketone-Dipstick 5 mg/dl (Negative); Leukocyte Esterase-Dipstick 100 /ul (Negative); Nitrite-Dipstick Positive (Negative); Occult Blood-Urine 10 /ul (Negative); Protein-Dipstick 100 mg/dl (Negative); Urine Bilirubin Dipstick Negative (Negative); Urine Clarity Sl. Cloudy (Clear); Urine Urobilinogen Normal (Normal)
[2022-12-14] MEDS: HYDROmorphone 1 MG/ML Syringe IV (15:00)
[2022-12-14 15:02] LABS: Bacteria 3+ /hpf (None Seen); Internal QC Validated? YES +Cl - CLEAR BKGD; Red Blood Cells-Urine 0-5 SEEN /hpf (0-5); Squamous Epithelial Cells - UA 0-5 SEEN /hpf (5-10); White Blood Cells 10-25 SEEN /hpf (0-5)
[2022-12-14 15:03] LABS: Pregnancy, Urine Negative Negative
[2022-12-14] MEDS: Famotidine 200 MG/20 ML MDV 20 MG in 0.9% Normal Saline (Pres. free 8 ML 300 MG IV (15:08)
[2022-12-14] MEDS: Potassium Chloride Oral Soln 20 MEQ/15 ML UDC 60 MEQ PO (15:08)
[2022-12-14] MEDS: 0.9% Normal Saline 1,000 ML 150 ML IV ×2 (15:09→19:51)
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
[2022-12-14] MEDS: Potassium Chloride 40 MEQ in 0.9% Normal Saline 1,000 ML 250 MEQ IV (16:08)
[2022-12-14 16:42] VITALS: BP 184/102; PULSE 80; RESP 18; TEMP 36.3; O2SAT 99
--- NOTE | 2022-12-14 16:45 | US_ITS ---
STUDY: ABDOMINAL ULTRASOUND - RIGHT UPPER QUADRANT REASON FOR VISIT: Female, 42 years old pancreatitis TECHNIQUE: Ultrasound evaluation of the right upper quadrant was performed with real-time and static wright-scale imaging. TECHNICAL QUALITY: Adequate. COMPARISON: None. FINDINGS: Liver: The liver measures 17.0 cm. There is increased echogenicity consistent with fatty infiltration. The bile ducts are within normal limits. There is hepatic color flow. The direction of portal flow is hepatopetal. There is no demonstrated mass lesion. Gallbladder: Normal distended gallbladder. The gallbladder wall measures 2 mm. There is a negative sonographic Lindsay''s sign. There is no pericholecystic fluid. There are no gallstones. Common Bile Duct (C.B.D.): The common bile duct measures 10 mm. Pancreas: Normal size of the head, body and tail of the pancreas. There is normal echogenicity of the pancreas. There is no demonstrated pancreatic mass or cyst. Dilatation of the pancreatic duct. Right Kidney: Normal size of the right kidney. The right kidney measures 10.7 cm. Normal renal cortex. The right cortex measures 1.3 cm. There is no demonstrated renal mass or cyst. There is no right hydronephrosis. US/Gallbladder IMPRESSION: 1. Extrahepatic biliary ductal dilatation and pancreatic ductal dilatation. Correlation with MRCP is recommended to exclude distal common bile duct stone. 2. Fatty infiltration of liver. Electronically Signed: Andreas Belcher MD at 18:51 EDT ,
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
[2022-12-14 17:53] VITALS: BP 153/99
[2022-12-14 18:03] VITALS: BMI 22.8
[2022-12-14 18:07] VITALS: BP 174/102; PULSE 81; RESP 18; TEMP 36.7; O2SAT 97
[2022-12-14] MEDS: 0.9% Saline Lock 10 ML Syringe IV (18:19)
[2022-12-14] MEDS: Morphine 2 MG/ML Syringe IV ×2 (18:20→21:25)
[2022-12-14] MEDS: proCHLORPERazine 10 MG/2 ML Vial 5 MG IV (18:21)
[2022-12-14 20:58] VITALS: BP 148/105; PULSE 98; RESP 18; TEMP 36.6; O2SAT 95
[2022-12-14] MEDS: Enoxaparin 100 MG/ML Syringe 90 MG SC (21:07)
[2022-12-15] MEDS: 0.9% Saline Lock 10 ML Syringe IV ×8 (00:25→22:58)
[2022-12-15] MEDS: Morphine 2 MG/ML Syringe IV ×8 (00:25→22:58)
[2022-12-15] MEDS: 0.9% Normal Saline 1,000 ML 150 ML IV ×4 (02:27→23:34)
[2022-12-15] MEDS: oxyCODONE 5 MG Tablet PO ×4 (02:27→18:32)
[2022-12-15 02:34] VITALS: BP 169/103; PULSE 84; RESP 16; TEMP 36.5; O2SAT 97
[2022-12-15 07:31] LABS: ALB/GLOB Ratio 0.8 RATIO (0.9-2.4); AST(SGOT) 312 U/L (15-37); Alanine Aminotransfer ALT/SGPT 223 U/L (13-56); Albumin, Serum 3.1 g/dL (3.2-5.0); Alkaline Phosphatase 111 U/L (45-117); Anion Gap 7 (5-15); BUN 4 mg/dL (7-18); BUN/Creat Ratio 8.5 RATIO (10-20); Calcium,Total 7.8 mg/dL (8.5-10.1); Chloride 105 mmol/L (98-107); Creatinine, Serum 0.47 mg/dL (0.55-1.02); EST Glomerular Filtration Rate 154 mL/min (>60); Est Glom Filt Rate - Afr Amer 186 mL/min (>60); Estimated Creatinine Clearance 133.27 ml/min; Globulin 3.7 g/dL (2.2-4.2); Glucose 95 mg/dL (74-106); Magnesium 1.4 mg/dL (1.6-2.6); Potassium 3.1 mmol/L (3.5-5.1); Protein, Total 6.8 g/dL (6.4-8.2); Sodium Level 137 mmol/L (136-145)
--- NOTE | 2022-12-15 08:45 | PN.HOSP_ITS ---
Reason for Visit Reason for Visit: Diagnoses Hypokalemia (12/14/22) Alcohol abuse, uncomplicated (12/14/22) Essential (primary) hypertension (12/14/22) Alcohol induced acute pancreatitis without necrosis or infection (12/14/22) Elevation of levels of liver transaminase levels (12/14/22) Bacteriuria (12/14/22) Subjective Subjective Still with abdominal pain. Objective Data Objective Data Vital Signs: Vital Signs Temp Pulse Resp BP Pulse Ox O2 Del Method 36.5 C L 84 16 169/103 H 97 Room Air 12/15/22 02:34 12/15/22 02:34 12/15/22 02:34 12/15/22 02:34 12/15/22 02:34 12/15/22 02:34 Oxygen Delivery Method Room Air Weight: 60.509 kg Body Mass Index (BMI) 22.8 Intake & Output: Intake and Output for Last 24 Hours 12/13/22 12/14/22 12/15/22 23:59 23:59 23:59 Intake Total 2706.67 / 2706.67 1312 / 1312 Balance 2706.67 / 2706.67 1312 / 1312 Lab / Micro Data 12/14/22 13:55 12/15/22 06:35 Labs: Laboratory Results - last 24 hr 12/14/22 13:55: WBC 6.0, RBC 3.93 L, Hgb 13.1, Hct 38.9, MCV 99.0, MCH 33.3 H, MCHC 33.7, RDW Std Deviation 54.9 H, RDW Coeff of Frankie 15.0 H, Plt Count 247, MPV 9.4, Immature Gran % (Auto) 0.200, Neut % (Auto) 77.4 H, Lymph % (Auto) 14.5 L, Mathews % (Auto) 5.0, Eos % (Auto) 2.2, Baso % (Auto) 0.7, Absolute Neuts (auto) 4.7, Absolute Lymphs (auto) 0.87, Nucleated RBC % 0, Sodium 135 L, Potassium 2.7 L*, Chloride 99, Carbon Dioxide 29.0, Anion Gap 7, BUN 8, Creatinine 0.61, Estim Creat Clear Calc 102.69, Est GFR (MDRD) Af Amer 138, Est GFR (MDRD) Non-Af 114, BUN/Creatinine Ratio 13.1, Glucose 118 H, Calcium 9.4, Total Bilirubin 0.50, AST 557 H, ALT 272 H, Alkaline Phosphatase 134 H, Total Protein 7.7, Albumin 3.5, Globulin 4.2, Albumin/Globulin Ratio 0.8 L, Lipase 787 H 12/14/22 14:45: Urine Color Yellow, Urine Clarity Sl. Cloudy, Urine pH 6.0, Ur Specific [place] 1.020, Urine Protein 100 H, Urine Glucose (UA) Normal, Urine Ketones 5 H, Urine Occult Blood 10 H, Urine Nitrite Positive H, Urine Bilirubin Negative, Urine Urobilinogen Normal, Ur Leukocyte Esterase 100 H, Urine RBC 0-5 SEEN, Urine WBC 10-25 SEEN, Ur Squamous Epith Cells 0-5 SEEN, Urine Bacteria 3+, Urine Mucus 0 SEEN, Urine Test Negative 12/15/22 06:35: Sodium 137, Potassium 3.1 L, Chloride 105, Carbon Dioxide 25.0, Anion Gap 7, BUN 4 L, Creatinine 0.47 L, Estim Creat Clear Calc 133.27, Est GFR (MDRD) Af Amer 186, Est GFR (MDRD) Non-Af 154, BUN/Creatinine Ratio 8.5 L, Glucose 95, Calcium 7.8 L, Magnesium 1.4 L, Total Bilirubin 0.50, AST 312 H, ALT 223 H, Alkaline Phosphatase 111, Total Protein 6.8, Albumin 3.1 L, Globulin 3.7, Albumin/Globulin Ratio 0.8 L Radiography Diagnostic Testing: Radiology Impression Gallbladder Ultrasound 12/14/22 16:45 IMPRESSION: 1. Extrahepatic biliary ductal dilatation and pancreatic ductal dilatation. Correlation with MRCP is recommended to exclude distal common bile duct stone. 2. Fatty infiltration of liver. Electronically Signed: Andreas Belcher MD at 18:51 EDT , Physical Exam Const alert and no apparent distress Constitutional Narrative: up in bed, hold her left side. non-toxic. afebrile. HEENT head/scalp atraumatic and moist oral mucous membranes Resp normal respiratory effort, no retractions, no use of accessory muscles and clear to auscultation bilaterally Cardio regular rate, regular rhythm, S1 normal heart sound and S2 normal heart sound GI normal to inspection, nondistended, normoactive bowel sounds GI Narrative: TTP in upper quadrants w rebound tenderness. Extremity normal to inspection Psych affect normal Assessment & Plan Assessment/Plan (1) Pancreatitis: QUALIFIERS: Acute pancreatitis complication: no infection or necrosis Chronicity: acute Pancreatitis type: alcohol induced Qualified Code(s): K85.20 - Alcohol induced acute pancreatitis without necrosis or infection PLAN: Alcohol induced. Patient had been sober for several months and then started drinking again recently. Timing of that suggest that this is again acute alcohol induced pancreatitis particular given her history. Plan: * IV fluids, pain control and antiemetics. * GB US showed bile duct dilation * Check MRCP. Cannot rule out need for ERCP. (2) Hypokalemia: PLAN: Replaced in the ER Improved, but still low. Continue to replace (3) Bacteriuria: PLAN: Only 10-25 white cells in the urine. Did have 3+ bacteria but did appear to be concentrated. Patient did receive ceftriaxone in the ED. We will hold off any additional antibiotics at this time. (4) Transaminitis: PLAN: May be secondary to alcohol. GB US showed extrahepatic biliary ductal dilation and pancreatic ductal dilation Check MRCP Continue to monitor. (5) Hypertension, accelerated: PLAN: Will add as needed hydralazine Patient takes 5 mg lisinopril at home. Persistent, increase lisinopril to 20 (6) Alcohol abuse: PLAN: Had been sober for several months prior to resuming drinking again. Patient underweight been drinking for few days so I do not feel the patient is to be going through any alcohol withdrawal. Supportive management Add thiamine and folic acid (7) Hypomagnesemia: PLAN: replace PLAN: Plan Chronic conditions * Portal vein thrombosis: Continue with enoxaparin. Follow-up with hematology as outpatient. VTE prophylaxis: Not indicated as patient is already anticoagulated. Charges/Coding Visit Charges Inpatient E&M: 53557 Subs Hosp L2
--- NOTE | 2022-12-15 08:52 | MRI_ITS ---
STUDY: MR CHOLANGIOPANCREATOGRAPHY (MRCP) REASON FOR EXAM: Female, 42 years old. Pancreatitis TECHNIQUE: Standard MRCP technique was utilized. Three-dimensional reconstruction images performed of the biliary system at an independent workstation and reviewed at time of dictation. COMPARISON: CT 12/01/2022, MRCP 07/28/2022 FINDINGS: MRCP: Gall Bladder: Normal with no distention or demonstrated fixed intraluminal filling defect. Cystic duct: Normal with no demonstrated fixed filling defect. Intrahepatic ducts: Mild left more than right biliary dilation, new. Common hepatic duct: Diffusely dilated, increased since prior MRCP. Common hepatic duct measures 9.7 mm. Common bile duct: There is angular tapering of the common duct (mid segment) in the region of the pancreatic head, as seen on image 15 of series 8 with increased dilation as compared to prior MRI. Common duct measures 10.0 mm. There is significant narrowing of the lower common duct measuring approximately 2.4 cm in length, best seen on image 22 of series 12 Pancreatic duct: Diffusely dilated measuring up to 4.4 mm in the pancreatic body. Limited evaluation of the pancreas again shows peripancreatic edema/pancreatitis, better seen on CT from 12/01/2022. There is nodular fullness of the ampulla extending into the duodenal lumen on image 20 of series 5, image 15 of series 7 and image 22 series 12, although not clearly seen on prior exam. No obvious hepatic masses. MRI/MRCP Abdomen without Contrast IMPRESSION: 1. Since previous MRI July 2022, worsening mass effect on the distal common duct with increasing biliary dilation. 2. Nodular thickening of the ampulla, not previously documented and could represent ampullary edema or mass. 3. Given persistent/worsening lower common duct narrowing (that could represent sequela of edema related to pancreatitis versus pancreatic head mass), recommend additional evaluation with either pancreatic protocol MRI without and with IV contrast or endoscopy with potential endoscopic ultrasound for evaluation of the pancreatic head. Electronically Signed: Marquise Torres (Brooks), at 16:47 EDT ,
[2022-12-15] MEDS: Potassium Chloride Oral Tablet 20 MEQ 40 MEQ PO (09:13)
[2022-12-15] MEDS: Enoxaparin 100 MG/ML Syringe 90 MG SC (09:14)
[2022-12-15 09:15] VITALS: BP 169/110; PULSE 78; RESP 18; TEMP 36.8; O2SAT 98
[2022-12-15] MEDS: Pantoprazole Sodium 20 MG Tablet PO (09:15)
[2022-12-15] MEDS: Lisinopril 20 MG Tablet PO (09:38)
[2022-12-15] MEDS: Magnesium Sulfate 4gm/100mL 4 GM/100 ML IV.SOLN. IV (09:43)
[2022-12-15 11:38] VITALS: BP 140/90
--- NOTE | 2022-12-15 14:30 | CASEMGMT ---
RN?CM?WORKGROUP LEADER?CM?to room to meet with patient for initial transition planning/care coordination?assessment.?RN?CM?introduced self and role at [facility].? Pt voices understanding and consents to?assessment?at this time.? Pt sitting up on edge of bed in no distress at this time.? Pt is A/O at this time and answers all questions appropriately.?? Care providers, pharmacy, and demographics verified/updated at this time. PCP:Pt denies having PCP. Pt denied needing local healthcare provider directory stating she has one at home from a previous admission. Specialists: Dr Salamanca-GI, Dr Urena-oncology. Pt states she has upcoming appts w/both of them, but she does not remember the dates, stating her store planner is @ home w/the info. Preferred Pharmacy: [facility] Retail Insurance: none listed. Pt had MAURICE when she was last admitted to [facility] in Jul. Pt states she though it was still active when she came to the hospital until registration told her it was not showing up as active. SW to f/u. Prescription Benefit: none LNOK: Pt has 3 adult children--ages: 22, 20, and 18. Kathy Shane-mother Living Arrangements: Pt lives with mother and dtr in a one-story home w/4 steps to enter. Pt reports she is I w/ADL's and IADL's. Transportation: Pt drives self and denies concerns with transportation. DME/HHC/SNF: Pt denies having any DME,previous HHC or SNF stays. ETOH: Pt states she has not had any ETOH to drink since last admission in Jul until a couple days ago when she relapsed. She states she was given resources for quitting drinking then, but has not f/u with anywhere. She states she still has the resources that were provided at that time. Pt states no concerns with going home at time of dc. Pt states no further concerns/needs. Advised pt to ask CM if any further question/concerns/needs arise. Pt voices understanding. PLAN:??Home TAHIRAiarosy BSN?RN?CM
--- NOTE | 2022-12-15 16:09 | CASEMGMT ---
Social Work SW met with pt and introduced self and role of SW. Pt is listed as self pay and PFS notes indicate pt's [facility] Community Plan was no longer active. Pt states that she was unaware that medicaid had lapsed and she will call her window caser when she returns home and work to get it restarted. SW spoke with pt regarding alcohol use. Pt was hospitalized in July and this SW met with pt and provided resources at that time. Pt states she stopped drinking on her own after she left the hospital, but relapsed a few days ago. Pt states she still has the previous information provided and feels she will not drink when she leaves the hospital again. Pt denies any assistance or resources from SW. Pt made aware that SW will remain available if pt changes her mind. MERT Zafar
[2022-12-15 16:15] VITALS: BP 156/101; PULSE 83; RESP 18; TEMP 36.8; O2SAT 96
[2022-12-15] MEDS: Senna/Docusate Sodium 1 Tablet 2 TABLET PO (16:25)
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
[2022-12-15 22:45] VITALS: BP 170/105; PULSE 84; RESP 18; TEMP 36.5; O2SAT 97
[2022-12-16] VITALS (8 sets, daily range): BP systolic 129–174; BP diastolic 89–121; PULSE 63–99; RESP 16–18; TEMP 36–37.2; O2SAT 92–100; BMI 22.8
--- NOTE | 2022-12-16 | FLU_PTH ---
PATIENT: ERWIN GROVES LOC: MS3 U#:[id number] AGE/SX: 42/F ROOM: [facility] RE12/14/[address]: Dr. Riley Joseph, DO : 1980 BED: 1 DIS: 12/21/2022 SPEC #: [id number] RECD: 12/16/22 19:49 STATUS: DOUGLAS REQ #: [id number] MARICRUZ: 12/16/22 00:[address]: Chandler Salamanca DEPT: CYTOLOGY RECD BY: Jess Pace ENTERED: 12/19/22 07:13 SP TYPE: Fluid OTHR DR: Dr. Sal Cassidy, DO No Primary Care Phys Tissues: A - Bile duct, NOS B - Bile duct, NOS Procedures: Special Stain Group II Surgery Specimen Level IV Cytospin Fluid Cytology Other Comments: @ Ordering doctor for SSII edited from to @ by LAISHA at 12/19/22 1440 @ Ordering doctor for SUIII edited from to @ by LAISHA at 12/19/22 1440 @ Ordering doctor for SUIV edited from to @ by RGOOD at 12/19/22 1440 @ Ordering doctor for CYSPIN edited from to @ by LAISHA at 12/19/22 1440 @ Ordering doctor for CYOTHER edited from to @ by LAISHA at 12/19/22 1440 @ Submitting doctor edited from to @ by RGOOD at 12/19/22 1440 HEADER OPERATION: ERCP with cautery, stent placement and brushings PRE-OP DIAGNOSIS: Abnormal MRCP TISSUE SUBMITTED: A - Biliary stricture brush tip, B - Biliary stricture x2 slides DIAGNOSIS CYTOLOGY A. Biliary stricture brush tip fluid (cytospin and cell block): Negative for malignant cells. B. Biliary stricture brushings (smears): A few clusters of mildly atypical ductal cells noted, favor reactive. See comment. SJ:rg 12/20/2022 COMMENT B. Correlation with clinical, endoscopic findings and appropriate follow up are necessary. CYTOLOGY STUDY Slides are reviewed. CYTOLOGY GROSS A - Received is a metallic endoscopic cytobrush with adherent minute fragments of michelle-red tissue brush in 2 ml of clear red fluid and labeled with the patient's name and and designated per the requisition as biliary stricture brush tip. The material is dislodged from the brush and submitted for cytology preparation including cell block. B - Received are two smears labeled with the patient's name and designated per the requisition as biliary stricture brushing. Submitted for staining. / nidhi 12/19/2022 TC:5 CPT: 83086, 96057, 32780
[2022-12-16] MEDS: 0.9% Saline Lock 10 ML Syringe IV ×5 (02:00→13:17)
[2022-12-16] MEDS: Morphine 2 MG/ML Syringe IV ×9 (02:00→23:04)
--- NOTE | 2022-12-16 05:00 | EKG12_ITS ---
Test Reason : PRE OP Blood Pressure : / mmHG Vent. Rate : 065 BPM Atrial Rate : 065 BPM P-R Int : 152 ms QRS Dur : 086 ms QT Int : 474 ms P-R-T Axes : 041 000 032 degrees QTc Int : 492 ms Normal sinus rhythm Normal ECG When compared with ECG of 28-JUL-2022 18:42, Vent. rate has decreased BY 42 BPM Criteria for Septal infarct are no longer Present Confirmed by HANNAH TEMPLETON, STEFANI ([id number]), medical editor EDISON GERMAIN ([id number]) on 12/19/2022 10:48:12 AM Referred By: ANDREINA Confirmed By:STEFANI YOUNG MD
--- NOTE | 2022-12-16 05:00 | RAD_ITS ---
INDICATION: preop EXAMINATION/TECHNIQUE: X-RAY - XR Chest 1 View COMPARISON: 08/04/2022. FINDINGS: LINES/DEVICES: None. LUNGS: No consolidation or evidence of an effusion. No evidence of edema or a pneumothorax. MEDIASTINUM AND CARDIOVASCULAR STRUCTURES: Cardiac silhouette is normal in size and contour. Mediastinum is unremarkable. BONES AND SOFT TISSUES: No acute abnormality. RAD/Chest 1 View (Portable) IMPRESSION: No evidence of cardiopulmonary disease. Electronically Signed: Jake Zelaya DO at 5:35 EDT ,
[2022-12-16] MEDS: 0.9% Normal Saline 1,000 ML 150 ML IV ×3 (05:14→17:49)
[2022-12-16 05:48] LABS: Absolute Lymphocyte Count 0.96 X10^3/uL (0.83-4.51); Absolute Neutrophil Count 2.3 X10^3/uL (2.0-7.7); Basophil# 0.03 X10^3/uL; Basophil% 0.8 % (0-1); Eosinophil# 0.16 X10^3/uL; Eosinophils% 4.2 % (0-5); Hematocrit 34.2 % (37-47); Hemoglobin 11.3 g/dL (12.0-15.0); Lymphocyte # 0.96 X10^3/ul (0.83-4.51); Lymphocyte % 24.9 % (19-41); Mean Corpuscular Hgb 34.2 pg (27.0-32.0); Mean Corpuscular Volume 103.6 fL (81-99); Monocyte# 0.35 X10^3/uL; Monocyte% 9.1 % (0-10); NRBC Flagged by Analyzer 0 % (0-5); Neutrophil # 2.34 X10^3/uL (2.7-7.7); Neutrophil % 60.7 % (47-70); Platelet Count 143 K/mm3 (150-450); RBC Distribution Width CV 14.9 % (11.6-14.6); RBC Distribution Width SD 56.1 fl (35.1-43.9); White Blood Count 3.9 K/mm3 (4.4-11.0)
[2022-12-16 06:07] LABS: Prothrombin Time (Protime)PT. 12.7 SECONDS (11.7-14.9)
[2022-12-16 06:08] LABS: Partial Thromboplast Time 31.9 Seconds (24.1-36.2)
[2022-12-16 07:32] LABS: ALB/GLOB Ratio 0.8 RATIO (0.9-2.4); AST(SGOT) 258 U/L (15-37); Alanine Aminotransfer ALT/SGPT 207 U/L (13-56); Albumin, Serum 2.9 g/dL (3.2-5.0); Alkaline Phosphatase 108 U/L (45-117); Anion Gap 6 (5-15); BUN 3 mg/dL (7-18); BUN/Creat Ratio 6.7 RATIO (10-20); Bilirubin, Direct 0.24 mg/dL (0.00-0.30); Calcium,Total 7.9 mg/dL (8.5-10.1); Chloride 105 mmol/L (98-107); Creatinine, Serum 0.44 mg/dL (0.55-1.02); EST Glomerular Filtration Rate 163 mL/min (>60); Est Glom Filt Rate - Afr Amer 198 mL/min (>60); Estimated Creatinine Clearance 142.36 ml/min; Globulin 3.5 g/dL (2.2-4.2); Glucose 87 mg/dL (74-106); Potassium 2.9 mmol/L (3.5-5.1); Protein, Total 6.4 g/dL (6.4-8.2); Sodium Level 138 mmol/L (136-145)
--- NOTE | 2022-12-16 07:55 | PN.HOSP_ITS ---
Reason for Visit Reason for Visit: Diagnoses Hypomagnesemia (12/14/22) Hypokalemia (12/14/22) Alcohol abuse, uncomplicated (12/14/22) Essential (primary) hypertension (12/14/22) Alcohol induced acute pancreatitis without necrosis or infection (12/14/22) Elevation of levels of liver transaminase levels (12/14/22) Bacteriuria (12/14/22) Subjective Subjective Still with abdominal pain. Pain meds help but wear off before she can have another dosing. Objective Data Objective Data Vital Signs: Vital Signs Temp Pulse Resp BP Pulse Ox O2 Del Method 36.5 C L 84 18 170/105 H 97 Room Air 12/15/22 22:45 12/15/22 22:45 12/15/22 22:45 12/15/22 22:45 12/15/22 22:45 12/15/22 23:31 Oxygen Delivery Method Room Air Weight: 60.509 kg Body Mass Index (BMI) 22.8 Intake & Output: Intake and Output for Last 24 Hours 12/14/22 12/15/22 12/16/22 23:59 23:59 23:59 Intake Total 2706.67 / 2706.67 4171.17 / 4171.17 850 / 850 Balance 2706.67 / 2706.67 4171.17 / 4171.17 850 / 850 Lab / Micro Data 12/16/22 05:25 12/16/22 05:25 Labs: Laboratory Results - last 24 hr 12/16/22 05:25: WBC 3.9 L, RBC 3.30 L, Hgb 11.3 L, Hct 34.2 L, MCV 103.6 H, MCH 34.2 H, MCHC 33.0, RDW Std Deviation 56.1 H, RDW Coeff of Frankie 14.9 H, Plt Count 143 L, MPV 10.0, Immature Gran % (Auto) 0.300, Neut % (Auto) 60.7, Lymph % (Auto) 24.9, [place] % (Auto) 9.1, Eos % (Auto) 4.2, Baso % (Auto) 0.8, Absolute Neuts (auto) 2.3, Absolute Lymphs (auto) 0.96, Nucleated RBC % 0, PT 12.7, INR 1.0, APTT 31.9, Sodium 138, Potassium 2.9 L, Chloride 105, Carbon Dioxide 27.0, Anion Gap 6, BUN 3 L, Creatinine 0.44 L, Estim Creat Clear Calc 142.36, Est GFR (MDRD) Af Amer 198, Est GFR (MDRD) Non-Af 163, BUN/Creatinine Ratio 6.7 L, Glucose 87, Calcium 7.9 L, Total Bilirubin 0.50, Direct Bilirubin 0.24, AST 258 H, ALT 207 H, Alkaline Phosphatase 108, Total Protein 6.4, Albumin 2.9 L, Globulin 3.5, Albumin/Globulin Ratio 0.8 L Radiography Diagnostic Testing: Radiology Impression MRCP 12/15/22 08:52 IMPRESSION: 1. Since previous MRI July 2022, worsening mass effect on the distal common duct with increasing biliary dilation. 2. Nodular thickening of the ampulla, not previously documented and could represent ampullary edema or mass. 3. Given persistent/worsening lower common duct narrowing (that could represent sequela of edema related to pancreatitis versus pancreatic head mass), recommend additional evaluation with either pancreatic protocol MRI without and with IV contrast or endoscopy with potential endoscopic ultrasound for evaluation of the pancreatic head. Electronically Signed: Marquise Torres (Brooks), at 16:47 EDT , Chest X-Ray 12/16/22 05:00 IMPRESSION: No evidence of cardiopulmonary disease. Electronically Signed: Jake Zelaya, at 5:35 EDT , Physical Exam Const alert and no apparent distress HEENT head/scalp atraumatic and moist oral mucous membranes Resp normal respiratory effort, no retractions, no use of accessory muscles and clear to auscultation bilaterally Cardio regular rate, regular rhythm, S1 normal heart sound and S2 normal heart sound GI GI Narrative: upper abdominal pain. Extremity normal to inspection Assessment & Plan Assessment/Plan (1) Pancreatitis: QUALIFIERS: Acute pancreatitis complication: no infection or necrosis Chronicity: acute Pancreatitis type: alcohol induced Qualified Code(s): K85.20 - Alcohol induced acute pancreatitis without necrosis or infection PLAN: Alcohol induced. Patient had been sober for several months and then started drinking again recently. Timing of that suggest that this is again acute alcohol induced pancreatitis particular given her history. Plan: * IV fluids, pain control and antiemetics. * GB US showed bile duct dilation * MRCP lower CBD narrowing. * GI for ERCP (2) Hypokalemia: PLAN: Replaced in the ER Improved, but still low. Continue to replace (3) Bacteriuria: PLAN: Only 10-25 white cells in the urine. Did have 3+ bacteria but did appear to be concentrated. Patient did receive ceftriaxone in the ED. We will hold off any additional antibiotics at this time. (4) Transaminitis: PLAN: May be secondary to alcohol. GB US showed extrahepatic biliary ductal dilation and pancreatic ductal dilation Check MRCP Continue to monitor. (5) Hypertension, accelerated: PLAN: Will add as needed hydralazine Patient takes 5 mg lisinopril at home. Persistent, increase lisinopril to 20 (6) Alcohol abuse: PLAN: Had been sober for several months prior to resuming drinking again. Patient underweight been drinking for few days so I do not feel the patient is to be going through any alcohol withdrawal. Supportive management Add thiamine and folic acid (7) Hypomagnesemia: PLAN: replaced monitor PLAN: Plan Chronic conditions * Portal vein thrombosis: Hold enoxaparin for ERCP. Follow-up with hematology as outpatient. VTE prophylaxis: Not indicated as patient is already anticoagulated. Charges/Coding Visit Charges Inpatient E&M: 91580 Subs Hosp L2
[2022-12-16] MEDS: Pantoprazole Sodium 20 MG Tablet PO (08:11)
[2022-12-16] MEDS: Potassium Chloride Oral Tablet 20 MEQ 40 MEQ PO ×2 (08:11→19:06)
[2022-12-16] MEDS: Lisinopril 20 MG Tablet PO (08:11)
[2022-12-16] MEDS: Potassium Chloride 10mEq/100mL 10 MEQ/100 ML IV.SOLN. 100 MEQ IV BOLUS ×4 (08:12→11:23)
[2022-12-16 13:30] LABS: Potassium 3.9 mmol/L (3.5-5.1)
--- NOTE | 2022-12-16 15:40 | RAD_ITS ---
INDICATION: ERCP EXAMINATION/TECHNIQUE: Images assigned to this order were provided in conjunction with a ERCP performed in the operating room/procedural suite. Please see operative report for details. Fluoroscopic images: 5 Fluoroscopic time: 60.5 seconds Cumulative dose: NA, mGym2; 9.8; mGy COMPARISON: No relevant comparisons available.. FINDINGS: There is retrograde access to the lower ductal system. Evidence of balloon sweep. No retained filling defects noted. There is evidence of a biliary stent in place. RAD/ERCP Biliary/Pancreas IMPRESSION: 1. ERCP examination with balloon sweep and biliary stent placed. No retained filling defects noted. Electronically Signed: Andreas Liu MD at 7:46 EDT ,
--- NOTE | 2022-12-16 16:18 | OP.ERCP_ITS ---
Patient Name: Melva Kerns Procedure Date: 12/16/2022 3:43 PM Date of : 1980 Age: 42 Procedure: ERCP Indications: Jaundice, Elevated liver enzymes, Acute recurrent pancreatitis, Diagnostic sampling Providers: Chandler Salamanca DO Medicines: Monitored Anesthesia Care Patient Profile: This is a 42 year old female. Refer to note in patient chart for documentation of history and physical. Patient has symptoms of acute right upper quadrant abdominal pain and acute jaundice. This patient has no history of previous ERCP. Complications: No immediate complications. Procedure: Pre-Anesthesia Assessment: - Prior to the procedure, a History and Physical was performed, and patient medications and allergies were reviewed. The patient is competent. The risks and benefits of the procedure and the sedation options and risks were discussed with the patient. All questions were answered and informed consent was obtained. Patient identification and proposed procedure were verified. Mental Status Examination: alert and oriented. Airway Examination: normal oropharyngeal airway and neck mobility. Respiratory Examination: clear to auscultation. CV Examination: normal. Prophylactic Antibiotics: The patient requires prophylactic antibiotics as clinically indicated based on published guidelines for the planned ERCP. The patient received antibiotic therapy before the procedure. Prior Anticoagulants: The patient has taken no previous anticoagulant or antiplatelet agents. ASA Grade Assessment: II - A patient with mild systemic disease. After reviewing the risks and benefits, the patient was deemed in satisfactory condition to undergo the procedure. The anesthesia plan was to use general anesthesia. Immediately prior to administration of medications, the patient was re-assessed for adequacy to receive sedatives. The heart rate, respiratory rate, oxygen saturations, blood pressure, adequacy of pulmonary ventilation, and response to care were monitored throughout the procedure. The physical status of the patient was re-assessed after the procedure. After obtaining informed consent, the scope was passed under direct vision. Throughout the procedure, the patient's blood pressure, pulse, and oxygen saturations were monitored continuously. The Duodenoscope was introduced through the mouth, and advanced to the duodenum and used to inject contrast into the bile duct. The ERCP was accomplished without difficulty. The patient tolerated the procedure well. Scope In: 3:44:47 PM Scope Out: 4:10:06 PM Total Procedure Duration Time 0 hours 25 minutes 19 seconds Findings: The licensed psychiatric technician film was normal. The esophagus was successfully intubated under direct vision. The scope was advanced to a normal major papilla in the descending duodenum without detailed examination of the pharynx, larynx and associated structures, and upper GI tract. The upper GI tract was grossly normal. The bile duct was deeply cannulated with the short-nosed traction sphincterotome. Contrast was injected. I personally interpreted the bile duct images. There was brisk flow of contrast through the ducts. Image quality was excellent. Contrast extended to the entire biliary tree. Opacification of the entire biliary tree except for the cystic duct and gallbladder was successful. The maximum diameter of the ducts was 10 mm. The lower third of the main bile duct contained one stone, which was 6 mm in diameter. The main bile duct was moderately dilated, secondary to a stricture. The largest diameter was 10 mm. A straight Roadrunner wire was passed into the biliary tree. A 5 mm biliary sphincterotomy was made with a traction (standard) sphincterotome using ERBE electrocautery. There was no post-sphincterotomy bleeding. The biliary tree was swept with a 15 mm balloon starting at the bifurcation. Sludge was swept from the duct. All stones were removed. Dilation of the common bile duct with a 10-11-12 mm balloon (to a maximum balloon size of 12 mm) dilator was successful. One 10 Fr by 5 cm temporary stent with two external flaps and two internal flaps was placed 5 cm into the common bile duct. Bile flowed through the stent. The stent was in good position. Cells for cytology were obtained by brushing in the lower third of the main bile duct. A standard esophagogastroduodenoscopy scope was used for the examination of the upper gastrointestinal tract. The scope was passed under direct vision through the upper GI tract. Patchy moderately erythematous mucosa without bleeding was found in the gastric body, in the gastric antrum and in the stomach. Diffuse mild inflammation characterized by erythema was found in the duodenal bulb. Impression: - The entire main bile duct was moderately dilated, secondary to a stricture. - Choledocholithiasis was found. Complete removal was accomplished by biliary sphincterotomy and balloon extraction. - A biliary sphincterotomy was performed. - The biliary tree was swept. - Common bile duct was successfully dilated. - One temporary stent was placed into the common bile duct. Recommendation: CA 19-9, CEA, CT with pancreatic protocol and EUS Procedure Code(s): --- Professional --- 13521, Endoscopic retrograde cholangiopancreatography (ERCP); with placement of endoscopic stent into biliary or pancreatic duct, including pre- and post-dilation and guide wire passage, when performed, including sphincterotomy, when performed, each stent 57910, Endoscopic retrograde cholangiopancreatography (ERCP); with removal of calculi/debris from biliary/pancreatic duct(s) 22159, Endoscopic catheterization of the biliary ductal system, radiological supervision and interpretation CPT copyright 2017 [employer]. All rights reserved. The codes documented in this report are preliminary and upon radiographic technologist review may be revised to meet current compliance requirements. Chandler Salamanca DO 12/16/2022 4:17:52 PM This report has been signed electronically. Number of Addenda: 0 Note Initiated On: 12/16/2022 3:43 PM
--- NOTE | 2022-12-16 16:18 | OP.CCLET_ITS ---
12/16/2022 No Primary Care Physician Re : ERCP procedure for Melva Kerns Dear Care Physician This procedure was performed on Friday, December 16, 2022. My impressions and recommendations are as follows: Impressions : - The entire main bile duct was moderately dilated, secondary to a stricture. - Choledocholithiasis was found. Complete removal was accomplished by biliary sphincterotomy and balloon extraction. - A biliary sphincterotomy was performed. - The biliary tree was swept. - Common bile duct was successfully dilated. - One temporary stent was placed into the common bile duct. Recommendations : CA 19-9, CEA, CT with pancreatic protocol and EUS My findings are described in the full procedure note, which is enclosed. If I can be of further assistance, please feel free to contact me at . Sincerely, Chandler Salamanca, 12/16/2022 4:17:52 PM This report has been signed electronically.
[2022-12-16] MEDS: Ondansetron 4 MG/2 ML Vial IV (17:11)
[2022-12-16] MEDS: oxyCODONE 5 MG Tablet 10 MG PO (17:55)
[2022-12-17] VITALS (10 sets, daily range): BP systolic 133–165; BP diastolic 97–127; PULSE 75–121; RESP 16–18; TEMP 36.7–36.9; O2SAT 86–97
[2022-12-17] MEDS: 0.9% Normal Saline 1,000 ML 150 ML IV ×4 (00:43→20:51)
[2022-12-17] MEDS: Morphine 2 MG/ML Syringe IV ×7 (02:00→22:12)
[2022-12-17] MEDS: Pantoprazole Sodium 20 MG Tablet PO (04:21)
[2022-12-17] MEDS: Ondansetron 4 MG/2 ML Vial IV (06:33)
[2022-12-17 06:47] LABS: Absolute Lymphocyte Count 1.33 X10^3/uL (0.83-4.51); Absolute Neutrophil Count 4.8 X10^3/uL (2.0-7.7); Basophil# 0.01 X10^3/uL; Basophil% 0.1 % (0-1); Eosinophil# 0.04 X10^3/uL; Eosinophils% 0.6 % (0-5); Hematocrit 37.5 % (37-47); Hemoglobin 12.1 g/dL (12.0-15.0); Lymphocyte # 1.33 X10^3/ul (0.83-4.51); Lymphocyte % 19.5 % (19-41); Mean Corp Hgb Conc 32.3 g/dL (32-36); Mean Corpuscular Hgb 33.7 pg (27.0-32.0); Mean Corpuscular Volume 104.5 fL (81-99); Mean Platelet Vol. 10.2 fl (6.2-12.0); Monocyte# 0.57 X10^3/uL; Monocyte% 8.4 % (0-10); NRBC Flagged by Analyzer 0 % (0-5); Neutrophil # 4.84 X10^3/uL (2.7-7.7); Platelet Count 189 K/mm3 (150-450); RBC Distribution Width CV 14.7 % (11.6-14.6); RBC Distribution Width SD 57.1 fl (35.1-43.9); Red Blood Count 3.59 M/mm3 (4.2-5.4); White Blood Count 6.8 K/mm3 (4.4-11.0)
--- NOTE | 2022-12-17 07:55 | PN.HOSP_ITS ---
Reason for Visit Reason for Visit: Diagnoses Hypomagnesemia (12/14/22) Hypokalemia (12/14/22) Alcohol abuse, uncomplicated (12/14/22) Essential (primary) hypertension (12/14/22) Portal vein thrombosis (12/14/22) Alcohol induced acute pancreatitis without necrosis or infection (12/14/22) Left upper quadrant pain (12/14/22) Elevation of levels of liver transaminase levels (12/14/22) Other specified abnormal findings of blood chemistry (12/14/22) Bacteriuria (12/14/22) Subjective Subjective Still with abdominal pain. Objective Data Objective Data Vital Signs: Vital Signs Temp Pulse Resp BP Pulse Ox O2 Del Method O2 Flow Rate 36.8 C 83 16 155/101 H 97 Room Air 2 12/17/22 03:19 12/17/22 03:19 12/17/22 03:19 12/17/22 03:19 12/17/22 03:19 12/17/22 03:19 12/16/22 17:18 Oxygen Flow Rate (L/min) 2 Oxygen Delivery Method Room Air Weight: 60.509 kg Body Mass Index (BMI) 22.8 Intake & Output: Intake and Output for Last 24 Hours 12/15/22 12/16/22 12/17/22 23:59 23:59 23:59 Intake Total 4171.17 / 4171.17 3255.83 / 3255.83 1000 / 1000 Balance 4171.17 / 4171.17 3255.83 / 3255.83 1000 / 1000 Lab / Micro Data 12/17/22 06:39 12/17/22 06:39 Labs: Laboratory Results - last 24 hr 12/16/22 13:15: Potassium 3.9 12/17/22 06:39: WBC 6.8, RBC 3.59 L, Hgb 12.1, Hct 37.5, MCV 104.5 H, MCH 33.7 H , MCHC 32.3, RDW Std Deviation 57.1 H, RDW Coeff of Frankie 14.7 H, Plt Count 189, MPV 10.2, Immature Gran % (Auto) 0.400, Neut % (Auto) 71.0 H, Lymph % (Auto) 19.5, [place] % (Auto) 8.4, Eos % (Auto) 0.6, Baso % (Auto) 0.1, Absolute Neuts (auto) 4.8, Absolute Lymphs (auto) 1.33, Nucleated RBC % 0 Physical Exam Const alert and no apparent distress HEENT head/scalp atraumatic and moist oral mucous membranes Resp normal respiratory effort, no retractions, no use of accessory muscles and clear to auscultation bilaterally Cardio regular rate, regular rhythm, S1 normal heart sound and S2 normal heart sound GI normal to inspection, nondistended, normoactive bowel sounds and soft to palpation GI Narrative: tender. Extremity normal to inspection Assessment & Plan Assessment/Plan (1) Pancreatitis: QUALIFIERS: Acute pancreatitis complication: no infection or necrosis Chronicity: acute Pancreatitis type: alcohol induced Qualified Code(s): K85.20 - Alcohol induced acute pancreatitis without necrosis or infection PLAN: Alcohol induced. Patient had been sober for several months and then started drinking again recently. Timing of that suggest that this is again acute alcohol induced pancreatitis particular given her history. Data: * GB US showed bile duct dilation * MRCP lower CBD narrowing. * ERCP main BD moderately dilated 2/2 a stricture. Choledocholithiasis w complete removal w sphinterotomy and balloon extraction. Stent placed * Per GI recs: check CEA, CA 19-9, pancreatic CT and EUS Plan: * IV fluids, pain control and antiemetics. * GI following (2) Hypokalemia: PLAN: Replaced in the ER Improved, but still low. Continue to replace (3) Bacteriuria: PLAN: Only 10-25 white cells in the urine. Did have 3+ bacteria but did appear to be concentrated. Patient did receive ceftriaxone in the ED. We will hold off any additional antibiotics at this time. (4) Transaminitis: PLAN: May be secondary to alcohol. GB US showed extrahepatic biliary ductal dilation and pancreatic ductal dilation Check MRCP Continue to monitor. (5) Hypertension, accelerated: PLAN: Will add as needed hydralazine Patient takes 5 mg lisinopril at home. Persistent, increase lisinopril to 20 (6) Alcohol abuse: PLAN: Had been sober for several months prior to resuming drinking again. Patient underweight been drinking for few days so I do not feel the patient is to be going through any alcohol withdrawal. Supportive management Add thiamine and folic acid (7) Hypomagnesemia: PLAN: replaced monitor PLAN: Plan Chronic conditions * Portal vein thrombosis: Hold enoxaparin for ERCP. Follow-up with hematology as outpatient. VTE prophylaxis: Not indicated as patient is already anticoagulated. Charges/Coding Visit Charges Inpatient E&M: 39254 Subs Hosp L2
[2022-12-17] MEDS: Potassium Chloride Oral Tablet 20 MEQ 40 MEQ PO ×2 (07:56→17:10)
[2022-12-17] MEDS: Folic Acid 1 MG Tablet PO (07:58)
[2022-12-17] MEDS: Lisinopril 20 MG Tablet PO (07:58)
[2022-12-17] MEDS: Thiamine Hydrochloride 100 MG Tablet PO (07:58)
[2022-12-17 07:59] LABS: ALB/GLOB Ratio 0.8 RATIO (0.9-2.4); AST(SGOT) 202 U/L (15-37); Alanine Aminotransfer ALT/SGPT 209 U/L (13-56); Albumin, Serum 3.1 g/dL (3.2-5.0); Alkaline Phosphatase 166 U/L (45-117); Anion Gap 7 (5-15); BUN 5 mg/dL (7-18); BUN/Creat Ratio 8.2 RATIO (10-20); Calcium,Total 8.6 mg/dL (8.5-10.1); Chloride 106 mmol/L (98-107); Creatinine, Serum 0.61 mg/dL (0.55-1.02); EST Glomerular Filtration Rate 113 mL/min (>60); Est Glom Filt Rate - Afr Amer 137 mL/min (>60); Estimated Creatinine Clearance 102.69 ml/min; Glucose 132 mg/dL (74-106); Magnesium 1.8 mg/dL (1.6-2.6); Potassium 4.3 mmol/L (3.5-5.1); Protein, Total 7.1 g/dL (6.4-8.2); Sodium Level 136 mmol/L (136-145)
[2022-12-17] MEDS: Senna/Docusate Sodium 1 Tablet 2 TABLET PO (08:12)
[2022-12-17] MEDS: Enoxaparin 60 MG/0.6 ML Syringe SC (10:02)
[2022-12-17] MEDS: oxyCODONE 5 MG Tablet 10 MG PO ×3 (10:05→23:17)
--- NOTE | 2022-12-17 11:27 | CT_ITS ---
INDICATION: pancreatitis -- pancreatic protocol. EXAMINATION: CT ABDOMEN WITH AND WITHOUT CONTRAST TECHNIQUE: Helically acquired images were obtained of the abdomen both before and after IV contrast. A radiation dose optimization technique was used for this scan. IV Contrast dosage and agent: 100 cc of Isovue-370 Oral contrast: 80 cc of Gastrografin RADIATION DOSAGE (If Supplied By Facility): CTDIvol = ( 9.18 ) mGy, DLP = ( 732.79 ) mGycm COMPARISON: 12/01/2022. FINDINGS: LOWER CHEST: Bilateral lower lungs atelectatic changes noted since previous exam. Is of left pleural effusion. Normal heart size. LIVER: Hepatic steatosis. Focal hypodensity in the anterior right lobe of the liver unchanged. GALLBLADDER AND BILIARY TREE: Dense gallbladder likely due to sludge or vicarious excretion of contrast. Common bile duct stent extending to the duodenum new since the previous exam. PANCREAS: Prominent pancreatic duct. No focal lesion is definitely seen. SPLEEN: Normal size without focal cystic or solid mass. ADRENAL GLANDS: No nodules. KIDNEYS AND URETERS: Normal renal size and position. No hydronephrosis or nephrolithiasis. PERITONEUM: No ascites or free air. No other fluid collection. BOWEL: No stomach or bowel distension. No focal inflammatory change. Partial visualization of the appendix appears unremarkable. LYMPH NODES: No enlarged mesenteric or retroperitoneal lymph nodes. VESSELS: Aorta is non-dilated. ABDOMINAL WALL: No discrete abdominal wall hernia. Partially visualized left adnexal cyst. BONES: No demonstrated acute osseous changes with previous exam. CT/Abdomen W/WO IV Contrast IMPRESSION: 1. Status post common bile duct stent placement. 2. Mild prominent pancreatic duct. 3. No focal acute inflammatory process. 4. Atelectatic changes in both lower lungs. Pneumonic process in the left lower lung cannot be entirely excluded. Electronically Signed: Esvin Go MD at 14:13 EDT ,
[2022-12-17] MEDS: LORazepam 2 MG/ML Syringe 1 MG IV (14:57)
[2022-12-17] MEDS: Gabapentin 100 MG Capsule 200 MG PO (15:14)
--- NOTE | 2022-12-17 15:28 | EX.PCM.PN.GI ---
Subjective Subjective Patient is still complaining of abdominal pain. This is the same pain that she had when she presented with acute pancreatitis on admission. She states that she is hungry. She is tolerating a liquid diet. She has not had a bowel movement yet. She was given stool softener. Objective Data Objective Data Vital Signs: Vital Signs Temp Pulse Resp BP Pulse Ox O2 Del Method O2 Flow Rate 98.1 F 110 H 16 165/127 H 86 Room Air 2 12/17/22 14:00 12/17/22 14:00 12/17/22 14:00 12/17/22 14:00 12/17/22 14:00 12/17/22 14:00 12/16/22 17:18 Oxygen Flow Rate (L/min) 2 Oxygen Delivery Method Room Air Weight: 133 lb 6.4 oz Body Mass Index (BMI) 22.8 Intake & Output: Intake and Output for Last 24 Hours 12/15/22 12/16/22 12/17/22 23:59 23:59 23:59 Intake Total 4171.17 / 4171.17 3255.83 / 3255.83 3000 / 3000 Balance 4171.17 / 4171.17 3255.83 / 3255.83 3000 / 3000 Lab / Micro Data 12/17/22 06:39 12/17/22 06:39 Labs: Laboratory Results - last 24 hr 12/17/22 06:39: WBC 6.8, RBC 3.59 L, Hgb 12.1, Hct 37.5, MCV 104.5 H, MCH 33.7 H, MCHC 32.3, RDW Std Deviation 57.1 H, RDW Coeff of Frankie 14.7 H, Plt Count 189, MPV 10.2, Immature Gran % (Auto) 0.400, Neut % (Auto) 71.0 H, Lymph % (Auto) 19.5, [place] % (Auto) 8.4, Eos % (Auto) 0.6, Baso % (Auto) 0.1, Absolute Neuts (auto) 4.8, Absolute Lymphs (auto) 1.33, Nucleated RBC % 0, Sodium 136, Potassium 4.3, Chloride 106, Carbon Dioxide 23.0, Anion Gap 7, BUN 5 L, Creatinine 0.61, Estim Creat Clear Calc 102.69, Est GFR (MDRD) Af Amer 137, Est GFR (MDRD) Non-Af 113, BUN/Creatinine Ratio 8.2 L, Glucose 132 H, Calcium 8.6, Magnesium 1.8, Total Bilirubin 0.70, AST 202 H, ALT 209 H, Alkaline Phosphatase 166 H, Total Protein 7.1, Albumin 3.1 L, Globulin 4.0, Albumin/Globulin Ratio 0.8 L Radiography Diagnostic Testing: Radiology Impression Abdomen CT 12/17/22 11:27 IMPRESSION: 1. Status post common bile duct stent placement. 2. Mild prominent pancreatic duct. 3. No focal acute inflammatory process. 4. Atelectatic changes in both lower lungs. Pneumonic process in the left lower lung cannot be entirely excluded. Electronically Signed: Esvin Go MD at 14:13 EDT , Physical Exam Const alert and no apparent distress HEENT head/scalp atraumatic and moist oral mucous membranes Resp normal respiratory effort, no retractions, no use of accessory muscles and clear to auscultation bilaterally Cardio regular rate, regular rhythm, S1 normal heart sound and S2 normal heart sound GI normal to inspection, nondistended, normoactive bowel sounds and soft to palpation GI Narrative: tender. Extremity normal to inspection Assessment & Plan Assessment/Plan (1) Leukocytosis: (2) Transaminitis: PLAN: Transaminitis possibly secondary to alcoholic hepatitis although I suspect that there is some elements of chronic liver disease due to the fact that the ALT is greater than AST. That is not the classic alcoholic hepatitis pattern. There is no sign of chronic viral hepatitis from current work-up. She did have anti-[employer] QUAL[employer] ASS[employer]ANCE ASSOCIATE antibody that is positive but that is associated mixed connective tissue disease and not usually associated with acute transaminitis secondary to acute hepatitis likely from ischemic disease versus acute alcoholic hepatitis. (3) Pancreatitis: QUALIFIERS: Chronicity: acute Pancreatitis type: alcohol induced Acute pancreatitis complication: no infection or necrosis Qualified Code(s): K85.20 - Alcohol induced acute pancreatitis without necrosis or infection PLAN: Acute alcoholic pancreatitis which was complicated by thrombosis of the mesenteric vessels. Her recent CT scan abdomen pelvis today did not show any signs of thrombosis in the portal vein or mesenteric vessels. There is also no sign of pancreatitis from ERCP yesterday. Work-up for an autoimmune cause such as IgG4 related type I autoimmune pancreatitis is negative. I suspect all this is from alcohol. However she does have a positive COLTON cardiolipin antibody. Repeat ESR and CRP for some objective data regarding her current pancreatitis admission. 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 There is a risk of transformation to hemorrhagic pancreatitis. I discussed this with the patient in detail and showed her the pictures of the large thrombosis involving the portal vein and other splenic vasculature. Repeat CT scan of the abdomen pelvis did not show any occlusive thrombosis of the portal vein which is really good. We would likely need hematology recommendations regarding long-term treatment of superior mesenteric and portal vein thrombosis. There was no sign of varices that were seen on repeat imaging in the stomach. 3/: Oncology is leaning towards stopping anticoagulation due to patient having incomplete thrombosis. We will await recommendations. 3/2: Oncology is okay with the patient going on heparin subcutaneous injections for the 2 thrombosis that were seen. (5) Abnormal magnetic resonance cholangiopancreatography (MRCP): PLAN: Abnormal stricture noted in the distal one third of the pancreatic duct. Cytology was taken via brushings via ERCP yesterday. Stent was also placed. 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 She continues on anticoagulation. Charges/Coding Visit Charges Inpatient E&M: 18803 Subs Hosp L3
[2022-12-18] VITALS (10 sets, daily range): BP systolic 139–168; BP diastolic 107–119; PULSE 79–112; RESP 16–20; TEMP 36.1–37; O2SAT 91–99
[2022-12-18] MEDS: 0.9% Normal Saline 1,000 ML 150 ML IV ×4 (02:53→21:55)
[2022-12-18] MEDS: Morphine 2 MG/ML Syringe IV ×2 (02:54→06:06)
[2022-12-18] MEDS: oxyCODONE 5 MG Tablet 10 MG PO ×3 (03:57→15:02)
[2022-12-18] MEDS: Mag Hydrox/Al Hydrox/Simeth 30 ML UDC PO (06:16)
[2022-12-18 06:43] LABS: ALB/GLOB Ratio 0.7 RATIO (0.9-2.4); AST(SGOT) 212 U/L (15-37); Alanine Aminotransfer ALT/SGPT 220 U/L (13-56); Albumin, Serum 2.7 g/dL (3.2-5.0); Alkaline Phosphatase 209 U/L (45-117); Anion Gap 4 (5-15); BUN 3 mg/dL (7-18); BUN/Creat Ratio 4.8 RATIO (10-20); Calcium,Total 8.4 mg/dL (8.5-10.1); Chloride 106 mmol/L (98-107); Creatinine, Serum 0.63 mg/dL (0.55-1.02); EST Glomerular Filtration Rate 110 mL/min (>60); Est Glom Filt Rate - Afr Amer 133 mL/min (>60); Estimated Creatinine Clearance 99.43 ml/min; Globulin 3.7 g/dL (2.2-4.2); Glucose 110 mg/dL (74-106); Potassium 3.8 mmol/L (3.5-5.1); Protein, Total 6.4 g/dL (6.4-8.2); Sodium Level 138 mmol/L (136-145)
[2022-12-18] MEDS: Folic Acid 1 MG Tablet PO (07:50)
[2022-12-18] MEDS: Gabapentin 100 MG Capsule PO ×3 (07:50→17:54)
[2022-12-18] MEDS: Thiamine Hydrochloride 100 MG Tablet PO (07:50)
[2022-12-18] MEDS: Potassium Chloride Oral Tablet 20 MEQ 40 MEQ PO ×2 (07:50→17:54)
--- NOTE | 2022-12-18 07:52 | PN.HOSP_ITS ---
Reason for Visit Reason for Visit: Diagnoses Elevated white blood cell count, unspecified (12/14/22) Hypomagnesemia (12/14/22) Hypokalemia (12/14/22) Alcohol abuse, uncomplicated (12/14/22) Essential (primary) hypertension (12/14/22) Portal vein thrombosis (12/14/22) Acute embolism and thrombosis of unspecified vein (12/14/22) Acute infarction of intestine, part and extent unspecified (12/14/22) Alcohol induced acute pancreatitis without necrosis or infection (12/14/22) Left upper quadrant pain (12/14/22) Elevation of levels of liver transaminase levels (12/14/22) Other specified abnormal findings of blood chemistry (12/14/22) Bacteriuria (12/14/22) Abnormal findings on diagnostic imaging of other parts of digestive tract (12/14/22) Subjective Subjective Upset that she is being told different things by different providers. Upset that I told that couldn't eat and then Dr. Salamanca said she could. Upset that she can't morphine when she wakes up because that is when pain is the worse. Asks when she can leave. Asks if she can be transferred. Objective Data Objective Data Vital Signs: Vital Signs Temp Pulse Resp BP Pulse Ox O2 Del Method O2 Flow Rate 36.1 C L 79 16 146/107 H 99 Nasal Cannula 2 12/18/22 07:47 12/18/22 07:47 12/18/22 07:47 12/18/22 07:47 12/18/22 07:47 12/18/22 07:47 12/18/22 07:47 Oxygen Flow Rate (L/min) 2 Oxygen Delivery Method Nasal Cannula Weight: 60.509 kg Body Mass Index (BMI) 22.8 Intake & Output: Intake and Output for Last 24 Hours 12/16/22 12/17/22 12/18/22 23:59 23:59 23:59 Intake Total 3255.83 / 3255.83 4242.5 / 4242.5 905 / 905 Balance 3255.83 / 3255.83 4242.5 / 4242.5 905 / 905 Lab / Micro Data 12/17/22 06:39 12/18/22 05:48 Labs: Laboratory Results - last 24 hr 12/17/22 06:39: Sodium 136, Potassium 4.3, Chloride 106, Carbon Dioxide 23.0, Anion Gap 7, BUN 5 L, Creatinine 0.61, Estim Creat Clear Calc 102.69, Est GFR (MDRD) Af Amer 137, Est GFR (MDRD) Non-Af 113, BUN/Creatinine Ratio 8.2 L, Glucose 132 H, Calcium 8.6, Magnesium 1.8, Total Bilirubin 0.70, AST 202 H, ALT 209 H, Alkaline Phosphatase 166 H, Total Protein 7.1, Albumin 3.1 L, Globulin 4.0, Albumin/Globulin Ratio 0.8 L 12/18/22 05:48: Sodium 138, Potassium 3.8, Chloride 106, Carbon Dioxide 28.0, Anion Gap 4 L, BUN 3 L, Creatinine 0.63, Estim Creat Clear Calc 99.43, Est GFR (MDRD) Af Amer 133, Est GFR (MDRD) Non-Af 110, BUN/Creatinine Ratio 4.8 L, Glucose 110 H, Calcium 8.4 L, Total Bilirubin 0.90, AST 212 H, ALT 220 H, Alkaline Phosphatase 209 H, Total Protein 6.4, Albumin 2.7 L, Globulin 3.7, Albumin/Globulin Ratio 0.7 L Radiography Diagnostic Testing: Radiology Impression Endo Retro Cholangiopancreatogram 12/16/22 15:40 IMPRESSION: 1. ERCP examination with balloon sweep and biliary stent placed. No retained filling defects noted. Electronically Signed: Andreas Liu MD at 7:46 EDT , Abdomen CT 12/17/22 11:27 IMPRESSION: 1. Status post common bile duct stent placement. 2. Mild prominent pancreatic duct. 3. No focal acute inflammatory process. 4. Atelectatic changes in both lower lungs. Pneumonic process in the left lower lung cannot be entirely excluded. Electronically Signed: Esvin Go MD at 14:13 EDT , Physical Exam Const Constitutional Narrative: up in bed tearful. minimal eye contact. HEENT head/scalp atraumatic Assessment & Plan Assessment/Plan (1) Pancreatitis: QUALIFIERS: Acute pancreatitis complication: no infection or necrosis Chronicity: acute Pancreatitis type: alcohol induced Qualified Code(s): K85.20 - Alcohol induced acute pancreatitis without necrosis or infection PLAN: Alcohol induced. Patient had been sober for several months and then started drinking again recently. Timing of that suggest that this is again acute alcohol induced pancreatitis particular given her history. Data: * GB US showed bile duct dilation * MRCP lower CBD narrowing. * ERCP main BD moderately dilated 2/2 a stricture. Choledocholithiasis w complete removal w sphinterotomy and balloon extraction. Stent placed * check CEA, CA 19-9 pending * pancreatic CT showed mild prominent pancreatic duct. no focal acute inflammation process. Plan: * IV fluids, pain control and antiemetics. * GI following (2) Hypokalemia: PLAN: Replaced in the ER Improved, but still low. Continue to replace (3) Bacteriuria: PLAN: Only 10-25 white cells in the urine. Did have 3+ bacteria but did appear to be concentrated. Patient did receive ceftriaxone in the ED. We will hold off any additional antibiotics at this time. (4) Transaminitis: PLAN: May be secondary to alcohol. GB US showed extrahepatic biliary ductal dilation and pancreatic ductal dilation Check MRCP Continue to monitor. (5) Hypertension, accelerated: PLAN: Will add as needed hydralazine Patient takes 5 mg lisinopril at home. Persistent, increase lisinopril to 20 (6) Alcohol abuse: PLAN: Had been sober for several months prior to resuming drinking again. Patient underweight been drinking for few days so I do not feel the patient is to be going through any alcohol withdrawal. Supportive management Add thiamine and folic acid (7) Hypomagnesemia: PLAN: replaced monitor (8) Hypoxia: PLAN: CXR showed ATX PEP on oxygen PLAN: Plan Chronic conditions * Portal vein thrombosis: Enoxaparin resumed at weight based dosing (previously was on 90mg, now on 60mg BID). Follow up with hematology. VTE prophylaxis: Not indicated as patient is already anticoagulated. 12/18: Pt stated that she is being told different things about her diet. She said I told her not to eat. I told her yesterday to see how she did with liquids, then she could be advanced. Dr. Salamanca then changed her diet. She is upset about her pain. I told her that the morphine is for breakthrough pain, which she stated she knew. She asked when she could leave. I told her she was not medically ready for discharge. I encouraged trying ketorolac to help with pain. I told her I am concerned about the narcotics related to her respiratory issues that she experiencing yesterday, in addition to lorazepam, which had been discontinued. I told she can leave AMA, however, if she does, I told her I would not prescribe any narcotics. She said, you keep saying that--I hadn't. I will continue oxycodone and breakthrough morphine. Add ketorolac scheduled for the next 2 days. Greater than 35 minutes of which greater than 50% of the time was counseling the patient as above about treating her pain. Charges/Coding Visit Charges Inpatient E&M: 09246 Subs Hosp L2
[2022-12-18] MEDS: Enoxaparin 60 MG/0.6 ML Syringe SC (09:15)
[2022-12-18] MEDS: Pantoprazole Sodium 20 MG Tablet PO (10:50)
[2022-12-18] MEDS: Lisinopril 20 MG Tablet PO (10:50)
[2022-12-18] MEDS: Ketorolac 30 MG/ML Syringe IV ×2 (11:32→17:54)
[2022-12-18] MEDS: Morphine 4 MG/ML Syringe IV ×2 (16:01→22:02)
[2022-12-18] MEDS: 0.9% Saline Lock 10 ML Syringe IV (22:02)
[2022-12-18] MEDS: Senna/Docusate Sodium 1 Tablet 2 TABLET PO (22:02)
[2022-12-19] MEDS: 0.9% Saline Lock 10 ML Syringe IV ×5 (00:51→18:13)
[2022-12-19] MEDS: Ketorolac 30 MG/ML Syringe IV ×4 (00:51→18:14)
[2022-12-19] MEDS: Mag Hydrox/Al Hydrox/Simeth 30 ML UDC PO (00:55)
--- NOTE | 2022-12-19 03:38 | NURSING ---
pt called out for pain meds. This RN went in to give oxy, pt was already asleep by the time this RN entered room. oxy returned to [facility].
[2022-12-19 04:33] VITALS: BP 170/127; PULSE 104; RESP 18; TEMP 36.9; O2SAT 92
[2022-12-19] MEDS: oxyCODONE 5 MG Tablet 10 MG PO ×3 (04:36→17:03)
[2022-12-19] MEDS: 0.9% Normal Saline 1,000 ML 150 ML IV ×3 (04:36→19:34)
[2022-12-19] MEDS: Senna/Docusate Sodium 1 Tablet 2 TABLET PO ×2 (06:47→21:15)
[2022-12-19 06:48] VITALS: BP 164/112; PULSE 108; RESP 18; TEMP 37.1; O2SAT 94
[2022-12-19 06:52] LABS: ALB/GLOB Ratio 0.6 RATIO (0.9-2.4); AST(SGOT) 259 U/L (15-37); Alanine Aminotransfer ALT/SGPT 258 U/L (13-56); Albumin, Serum 2.6 g/dL (3.2-5.0); Alkaline Phosphatase 261 U/L (45-117); Anion Gap 4 (5-15); BUN 6 mg/dL (7-18); BUN/Creat Ratio 8.3 RATIO (10-20); Chloride 105 mmol/L (98-107); Creatinine, Serum 0.72 mg/dL (0.55-1.02); EST Glomerular Filtration Rate 93 mL/min (>60); Est Glom Filt Rate - Afr Amer 113 mL/min (>60); Glucose 106 mg/dL (74-106); Potassium 4.4 mmol/L (3.5-5.1); Protein, Total 6.6 g/dL (6.4-8.2); Sodium Level 137 mmol/L (136-145)
[2022-12-19 07:02] VITALS: O2SAT 92
--- NOTE | 2022-12-19 07:28 | PN.HOSP_ITS ---
Reason for Visit Reason for Visit: Diagnoses Elevated white blood cell count, unspecified (12/14/22) Hypomagnesemia (12/14/22) Hypokalemia (12/14/22) Alcohol abuse, uncomplicated (12/14/22) Essential (primary) hypertension (12/14/22) Portal vein thrombosis (12/14/22) Acute embolism and thrombosis of unspecified vein (12/14/22) Acute infarction of intestine, part and extent unspecified (12/14/22) Alcohol induced acute pancreatitis without necrosis or infection (12/14/22) Hypoxemia (12/14/22) Left upper quadrant pain (12/14/22) Elevation of levels of liver transaminase levels (12/14/22) Other specified abnormal findings of blood chemistry (12/14/22) Bacteriuria (12/14/22) Abnormal findings on diagnostic imaging of other parts of digestive tract (12/14/22) Subjective Subjective Still with abdominal pain Objective Data Objective Data Vital Signs: Vital Signs Temp Pulse Resp BP Pulse Ox O2 Del Method O2 Flow Rate 37.1 C 108 H 18 164/112 H 92 Nasal Cannula 2 12/19/22 06:48 12/19/22 06:48 12/19/22 06:48 12/19/22 06:48 12/19/22 07:02 12/19/22 07:02 12/19/22 07:02 Oxygen Flow Rate (L/min) 2 Oxygen Delivery Method Nasal Cannula Weight: 60.509 kg Body Mass Index (BMI) 22.8 Intake & Output: Intake and Output for Last 24 Hours 12/17/22 12/18/22 12/19/22 23:59 23:59 23:59 Intake Total 4242.5 / 4242.5 3725.0 / 3725.0 1000 / 1000 Balance 4242.5 / 4242.5 3725.0 / 3725.0 1000 / 1000 Lab / Micro Data 12/17/22 06:39 12/19/22 05:20 Labs: Laboratory Results - last 24 hr 12/19/22 05:20: Sodium 137, Potassium 4.4, Chloride 105, Carbon Dioxide 28.0, Anion Gap 4 L, BUN 6 L, Creatinine 0.72, Estim Creat Clear Calc 87.00, Est GFR (MDRD) Af Amer 113, Est GFR (MDRD) Non-Af 93, BUN/Creatinine Ratio 8.3 L, Glucose 106, Calcium 9.0, Total Bilirubin 1.10 H, AST 259 H, ALT 258 H, Alkaline Phosphatase 261 H, Total Protein 6.6, Albumin 2.6 L, Globulin 4.0, Albumin/Globulin Ratio 0.6 L Radiography Diagnostic Testing: Radiology Impression Endo Retro Cholangiopancreatogram 12/16/22 15:40 IMPRESSION: 1. ERCP examination with balloon sweep and biliary stent placed. No retained filling defects noted. Electronically Signed: Andreas Liu MD at 7:46 EDT , Physical Exam Const alert and no apparent distress HEENT head/scalp atraumatic Resp normal respiratory effort and no retractions Cardio regular rate, regular rhythm, S1 normal heart sound and S2 normal heart sound GI normal to inspection, nondistended, normoactive bowel sounds, soft to palpation, non-tender and non-distended Extremity normal to inspection Assessment & Plan Assessment/Plan (1) Pancreatitis: QUALIFIERS: Acute pancreatitis complication: no infection or necrosis Chronicity: acute Pancreatitis type: alcohol induced Qualified Code(s): K85.20 - Alcohol induced acute pancreatitis without necrosis or infection PLAN: Alcohol induced. Patient had been sober for several months and then started drinking again re cently. Timing of that suggest that this is again acute alcohol induced pancreatitis particular given her history. Data: * GB US showed bile duct dilation * MRCP lower CBD narrowing. * ERCP main BD moderately dilated 2/2 a stricture. Choledocholithiasis w complete removal w sphinterotomy and balloon extraction. Stent placed * CEA, CA 19-9 pending * pancreatic CT showed mild prominent pancreatic duct. no focal acute inflammation process. Plan: * IV fluids, pain control and antiemetics. * GI following (2) Transaminitis: PLAN: May be secondary to alcohol. GB US showed extrahepatic biliary ductal dilation and pancreatic ductal dilation Check MRCP Continue to monitor. FREDI Salamanca. He feels pt may require liver Bx. He will discuss with patient. (3) Hypokalemia: PLAN: Resolved with replacement (4) Hypertension, accelerated: PLAN: Will add as needed hydralazine Patient takes 5 mg lisinopril at home. Persistent, increase lisinopril to 20 Ongoing, will amlodipine (5) Alcohol abuse: PLAN: Had been sober for several months prior to resuming drinking again. Patient underweight been drinking for few days so I do not feel the patient is to be going through any alcohol withdrawal. Supportive management Add thiamine and folic acid (6) Hypomagnesemia: PLAN: replaced monitor (7) Hypoxia: PLAN: CXR showed ATX PEP on oxygen (8) Bacteriuria: PLAN: Only 10-25 white cells in the urine. Did have 3+ bacteria but did appear to be concentrated. Patient did receive ceftriaxone in the ED. We will hold off any additional antibiotics at this time. PLAN: Plan Chronic conditions * Portal vein thrombosis: Enoxaparin 1.5 mg/kg daily. Hold in anticipation of biopsy. VTE prophylaxis: Not indicated as patient is already anticoagulated. 12/18: Pt stated that she is being told different things about her diet. She said I told her not to eat. I told her yesterday to see how she did with liquids, then she could be advanced. Dr. Salamanca then changed her diet. She is upset about her pain. I told her that the morphine is for breakthrough pain, which she stated she knew. She asked when she could leave. I told her she was not medically ready for discharge. I encouraged trying ketorolac to help with pain. I told her I am concerned about the narcotics related to her respiratory issues that she experiencing yesterday, in addition to lorazepam, which had been discontinued. I told she can leave [place], however, if she does, I told her I would not prescribe any narcotics. She said, you keep saying that--I hadn't. I will continue oxycodone and breakthrough morphine. Add ketorolac scheduled for the next 2 days. Charges/Coding Visit Charges Inpatient E&M: 34963 Subs Hosp L2
[2022-12-19 09:11] VITALS: BP 157/123; PULSE 107; RESP 18; TEMP 37.3; O2SAT 94
[2022-12-19] MEDS: Thiamine Hydrochloride 100 MG Tablet PO (09:16)
[2022-12-19] MEDS: Folic Acid 1 MG Tablet PO (09:16)
[2022-12-19] MEDS: Lisinopril 20 MG Tablet PO (09:16)
[2022-12-19] MEDS: Enoxaparin 60 MG/0.6 ML Syringe SC (09:16)
[2022-12-19] MEDS: Gabapentin 100 MG Capsule PO ×2 (09:16→17:06)
[2022-12-19] MEDS: Potassium Chloride Oral Tablet 20 MEQ 40 MEQ PO ×2 (09:16→17:06)
[2022-12-19] MEDS: Pantoprazole Sodium 20 MG Tablet PO (09:16)
[2022-12-19] MEDS: amLODIPine 5 MG Tablet PO (09:23)
[2022-12-19 11:08] LABS: Carbohydrate Ag 19-9 2261 11 U/mL (0-35); Carcinoembryonic Antigen 4.9 ng/mL (0.0-4.7)
[2022-12-19] MEDS: Ondansetron 4 MG/2 ML Vial IV (11:53)
[2022-12-19] MEDS: Morphine 4 MG/ML Syringe IV ×2 (13:48→21:15)
[2022-12-19 14:00] VITALS: BP 134/92; PULSE 90; RESP 18; TEMP 37.4; O2SAT 95
[2022-12-19 21:11] VITALS: BP 149/111; PULSE 95; RESP 18; TEMP 36.7; O2SAT 93
[2022-12-20] VITALS (10 sets, daily range): BP systolic 128–178; BP diastolic 91–120; PULSE 68–116; RESP 16–22; TEMP 36.7–37.2; O2SAT 85–96
[2022-12-20] MEDS: Ketorolac 30 MG/ML Syringe IV ×2 (00:32→05:35)
[2022-12-20] MEDS: 0.9% Saline Lock 10 ML Syringe IV ×3 (00:32→21:33)
[2022-12-20] MEDS: 0.9% Normal Saline 1,000 ML 150 ML IV ×2 (00:33→05:35)
--- NOTE | 2022-12-20 06:00 | CT_ITS ---
EXAMINATION: CT Limited TECHNIQUE: Helically acquired bonsai tender views of the chest and abdomen without IV contrast as initial imaging for a scheduled percutaneous liver biopsy. A radiation dose optimization technique was used for this scan. IV Contrast dosage and agent: None RADIATION DOSAGE (If Supplied By Facility): CTDIvol = ( ) mGy, DLP = ( ) mGycm COMPARISON: CT abdomen December 17, 2022; portable AP chest x-ray December 16, 2022. FINDINGS: Patient was placed on the CT gantry in supine position, right arm placed above her head in preparation for her scheduled CT-guided precarious core biopsy of the liver. Some conscious sedation was also anticipated. However, although the patient was not visibly short of breath, it was noted that the patient''s oxygen saturation was only 88%. As such, I instructed the circulating nurse to give 50 mcg fentanyl for analgesia, but no Versed was provided for the patient''s anxiety. Housekeeping Manager images noted mixed bilateral diffuse interstitial and hazy bilateral perihilar pulmonary densities were not present on the chest x-ray 4 days ago. Heart size within normal limits. There is some prominence of the Pankaj B lines at the lateral lung bases; the pattern is typical for pulmonary venous congestion with mild to moderate edema, but an infectious etiology is not excluded. Incidental note is also made of small metallic density projecting over the medial aspect of the liver that was not seen on prior imaging, presumably artifact outside the patient. A plastic biliary stent catheter was also noted. In light of these findings, decision was made to forego the biopsy at this time. Even with the patient sitting upright, her O2 saturation only improved to 89-90%. I reviewed the findings with Dr. Cassidy, her hospitalist, and decision made to proceed to a chest x-ray at this point. She left the CT suite in stable condition. CT/Limited or Localized F/U CT IMPRESSION: Planned CT-guided percutaneous liver biopsy was held off as patient had a diminished O2 saturation and bonsai tender film showed mixed, diffuse bilateral interstitial and alveolar pulmonary infiltrates that were not present on chest x-ray 4 days ago. Once her pulmonary status has improved, she can be rescheduled for the imaging guided liver biopsy at a later date. Electronically Signed: Justin Lawrence MD at 10:03 EDT Reading Location ID and State: [id number] / Unknown , Service support ,
[2022-12-20 06:54] LABS: ALB/GLOB Ratio 0.6 RATIO (0.9-2.4); AST(SGOT) 93 U/L (15-37); Alanine Aminotransfer ALT/SGPT 159 U/L (13-56); Albumin, Serum 2.3 g/dL (3.2-5.0); Alkaline Phosphatase 199 U/L (45-117); Anion Gap 3 (5-15); BUN 7 mg/dL (7-18); BUN/Creat Ratio 10.8 RATIO (10-20); Calcium,Total 8.5 mg/dL (8.5-10.1); Chloride 108 mmol/L (98-107); Creatinine, Serum 0.65 mg/dL (0.55-1.02); EST Glomerular Filtration Rate 106 mL/min (>60); Est Glom Filt Rate - Afr Amer 129 mL/min (>60); Estimated Creatinine Clearance 96.37 ml/min; Globulin 3.9 g/dL (2.2-4.2); Glucose 104 mg/dL (74-106); Potassium 4.4 mmol/L (3.5-5.1); Protein, Total 6.2 g/dL (6.4-8.2); Sodium Level 138 mmol/L (136-145)
--- NOTE | 2022-12-20 07:19 | PCM.PN.HOSP ---
Reason for Visit Reason for Visit: Diagnoses Elevated white blood cell count, unspecified (12/14/22) Hypomagnesemia (12/14/22) Hypokalemia (12/14/22) Alcohol abuse, uncomplicated (12/14/22) Essential (primary) hypertension (12/14/22) Portal vein thrombosis (12/14/22) Acute embolism and thrombosis of unspecified vein (12/14/22) Acute infarction of intestine, part and extent unspecified (12/14/22) Alcohol induced acute pancreatitis without necrosis or infection (12/14/22) Hypoxemia (12/14/22) Left upper quadrant pain (12/14/22) Elevation of levels of liver transaminase levels (12/14/22) Other specified abnormal findings of blood chemistry (12/14/22) Bacteriuria (12/14/22) Abnormal findings on diagnostic imaging of other parts of digestive tract (12/14/22) Subjective Subjective Bx cancelled due to respirations. Abdominal pain improved. Objective Data Objective Data Vital Signs: Vital Signs Temp Pulse Resp BP Pulse Ox O2 Del Method O2 Flow Rate 36.8 C 88 18 128/91 H 94 Nasal Cannula 2 12/20/22 04:15 12/20/22 04:15 12/20/22 04:15 12/20/22 04:15 12/20/22 04:15 12/20/22 04:15 12/20/22 04:15 Oxygen Flow Rate (L/min) 2 Oxygen Delivery Method Nasal Cannula Weight: 60.509 kg Body Mass Index (BMI) 22.8 Intake & Output: Intake and Output for Last 24 Hours 12/18/22 12/19/22 12/20/22 23:59 23:59 23:59 Intake Total 3725.0 / 3725.0 3000 / 3000 1502.5 / 1502.5 Balance 3725.0 / 3725.0 3000 / 3000 1502.5 / 1502.5 Lab / Micro Data 12/17/22 06:39 12/20/22 05:35 Labs: Laboratory Results - last 24 hr 12/17/22 08:35: Carcinoembryonic Ag 4.9 H, CA 19-9 Antigen 11, CA 19-9 Serial Monitor Not Reportable 12/20/22 05:35: Sodium 138, Potassium 4.4, Chloride 108 H, Carbon Dioxide 27.0, Anion Gap 3 L, BUN 7, Creatinine 0.65, Estim Creat Clear Calc 96.37, Est GFR (MDRD) Af Amer 129, Est GFR (MDRD) Non-Af 106, BUN/Creatinine Ratio 10.8, Glucose 104, Calcium 8.5, Total Bilirubin 0.70, AST 93 H, ALT 159 H, Alkaline Phosphatase 199 H, Total Protein 6.2 L, Albumin 2.3 L, Globulin 3.9, Albumin/Globulin Ratio 0.6 L Physical Exam Const alert and no apparent distress Resp normal respiratory effort, no retractions and no use of accessory muscles Resp Narrative: bibasilar crackles. Cardio Cardio Narrative: tachycardia. GI normal to inspection, nondistended, normoactive bowel sounds GI Narrative: less tender. no rebound. Assessment & Plan Assessment/Plan (1) Pancreatitis: QUALIFIERS: Acute pancreatitis complication: no infection or necrosis Chronicity: acute Pancreatitis type: alcohol induced Qualified Code(s): K85.20 - Alcohol induced acute pancreatitis without necrosis or infection PLAN: Alcohol induced. Patient had been sober for several months and then started drinking again recently. Timing of that suggest that this is again acute alcohol induced pancreatitis particular given her history. Data: GB US showed bile duct dilation MRCP lower CBD narrowing. ERCP main BD moderately dilated 2/2 a stricture. Choledocholithiasis w complete removal w sphinterotomy and balloon extraction. Stent placed CEA, CA 19-[address] showed mild prominent pancreatic duct. no focal acute inflammation process. Plan: IV fluids, pain control and antiemetics. GI following (2) Transaminitis: PLAN: May be secondary to alcohol. GB US showed extrahepatic biliary ductal dilation and pancreatic ductal dilation Check MRCP Continue to monitor. FREDI Salamanca. Recommends liver Bx. (3) Hypokalemia: PLAN: Resolved with replacement (4) Hypertension, accelerated: PLAN: Will add as needed hydralazine Patient takes 5 mg lisinopril at home. Persistent, increase lisinopril to 20 Ongoing, will amlodipine (5) Alcohol abuse: PLAN: Had been sober for several months prior to resuming drinking again. Patient underweight been drinking for few days so I do not feel the patient is to be going through any alcohol withdrawal. Supportive management Add thiamine and folic acid (6) Hypomagnesemia: PLAN: replaced monitor (7) Hypoxia: PLAN: CXR showed ATX PEP on oxygen (8) Bacteriuria: PLAN: Only 10-25 white cells in the urine. Did have 3+ bacteria but did appear to be concentrated. Patient did receive ceftriaxone in the ED. We will hold off any additional antibiotics at this time. (9) CHF exacerbation: QUALIFIERS: Heart failure type: unspecified Qualified Code(s): I50.9 - Heart failure, unspecified PLAN: doubt pneumonia given pleural effusion and s/s infection unclear type had receive 20liters of fluid (unknown output) HLIV furosemide check echo PLAN: Plan Chronic conditions Portal vein thrombosis: Enoxaparin 1.5 mg/kg daily. Hold in anticipation of biopsy. VTE prophylaxis: Not indicated as patient is already anticoagulated. 12/18: Pt stated that she is being told different things about her diet. She said I told her not to eat. I told her yesterday to see how she did with liquids, then she could be advanced. Dr. Salamanca then changed her diet. She is upset about her pain. I told her that the morphine is for breakthrough pain, which she stated she knew. She asked when she could leave. I told her she was not medically ready for discharge. I encouraged trying ketorolac to help with pain. I told her I am concerned about the narcotics related to her respiratory issues that she experiencing yesterday, in addition to lorazepam, which had been discontinued. I told she can leave A, however, if she does, I told her I would not prescribe any narcotics. She said, you keep saying that--I hadn't. I will continue oxycodone and breakthrough morphine. Add ketorolac scheduled for the next 2 days. Charges/Coding Visit Charges Inpatient E&M: 48853 Subs Hosp L2
[2022-12-20] MEDS: oxyCODONE 5 MG Tablet 10 MG PO ×2 (08:27→17:42)
[2022-12-20] MEDS: Senna/Docusate Sodium 1 Tablet 2 TABLET PO ×2 (08:27→21:32)
[2022-12-20] MEDS: fentaNYL 100 MCG/2 ML Ampul IV (09:33)
--- NOTE | 2022-12-20 09:43 | RAD_ITS ---
INDICATION: COUGH, HYPOXIA EXAMINATION/TECHNIQUE: X-RAY - XR Chest 2 Views COMPARISON: AP portable upright chest x-ray December 16, 2022 FINDINGS: LINES/DEVICES: None. LUNGS: Ill-defined bilateral alveolar densities are now present in the perihilar regions and lung bases. The apical interstitial densities are also more prominent, and there are conspicuous transverse linear densities at the lateral lung bases that may be Pankaj B lines. Small pleural reaction blunts the lateral left costophrenic sulcus. MEDIASTINUM AND CARDIOVASCULAR STRUCTURES: Cardiac silhouette not enlarged. Central airways and mediastinal contour are unremarkable. BONES AND SOFT TISSUES: Unremarkable. Incidental note of the upper portion of a plastic internal biliary stent in the visualized epigastrium. An additional metal density overlapping the medial aspect of the liver shadow was not present on prior imaging and may be artifact outside the patient. RAD/Chest PA and Lateral IMPRESSION: New mixed, bilateral alveolar and interstitial pulmonary densities, accompanied by his very small left pleural effusion. Differential includes congestive failure with moderate pulmonary edema versus infection/inflammation. Electronically Signed: Justin Lawrence MD at 10:06 EDT Reading Location ID and State: [id number] / Unknown , Service support ,
[2022-12-20] MEDS: Potassium Chloride Oral Tablet 20 MEQ 40 MEQ PO ×2 (10:57→17:42)
[2022-12-20] MEDS: Lisinopril 20 MG Tablet PO (10:58)
[2022-12-20] MEDS: Pantoprazole Sodium 20 MG Tablet PO (10:58)
[2022-12-20] MEDS: Folic Acid 1 MG Tablet PO (10:58)
[2022-12-20] MEDS: amLODIPine 5 MG Tablet PO (10:58)
[2022-12-20] MEDS: Thiamine Hydrochloride 100 MG Tablet PO (10:58)
[2022-12-20] MEDS: Gabapentin 100 MG Capsule PO ×2 (11:01→17:42)
[2022-12-20] MEDS: Furosemide 40 MG/4 ML Vial IV ×2 (12:32→17:42)
[2022-12-20] MEDS: Morphine 4 MG/ML Syringe IV ×2 (12:43→21:33)
--- NOTE | 2022-12-20 15:34 | ECHOCS_ITS ---
Reason For Study: CHF Procedure This was a 2D Doppler, Color Flow transthoracic echocardiogram. The study was technically difficult. Contrast injection was performed. Exam performed portable in patient room. Left Ventricle Normal LV size. The left ventricular ejection fraction is 65 %. Normal diastology for age. Right Ventricle Normal right ventricle. Atria Normal left atrium. Normal right atrium. Mitral Valve Moderately severe (3+) posteriorly directed mitral valve insufficiency. Tricuspid Valve Mild to moderate (1-2+) tricuspid valve insufficiency. Aortic Valve The aortic valve is not well visualized in the short axis view. Pulmonic Valve The pulmonic valve is not well visualized. Great Vessels The aortic root is not well visualized. Pericardium/Pleural No pericardial effusion. Medication Diluted definity 1.5ml given slow IV push to enhance endocardial definition. MMode/2D Measurements & Calculations LVIDd: 4.0 cm IVSd: 0.86 cm LA dimension: 3.7 cm LVIDs: 3.0 cm LVPWd: 0.74 cm RVDd: 2.5 cm FS: 26.3 % LAV(MOD-bp): 46.4 ml LVAd ap4: 35.6 cm2 SV(MOD-sp4): 65.2 ml LAV(MOD-bp) Indexed: 28.2 ml/m2 LVLd ap4: 8.5 cm LAV(MOD-sp2): 35.6 ml EDV(MOD-sp4): 122.4 ml LAV(MOD-sp4): 42.1 ml EDV(sp4-el): 126.5 ml LVAs ap4: 22.1 cm2 LVLs ap4: 7.3 cm ESV(MOD-sp4): 57.2 ml ESV(sp4-el): 56.7 ml EF(MOD-sp4): 53.3 % EF(sp4-el): 55.2 % SV(sp4-el): 69.8 ml LA A4 area: 16.4 cm2 Time Measurements MV dec time: 0.15 sec Doppler Measurements & Calculations MV E max elio: 121.4 cm/sec Lat Peak E' Elio: 10.6 cm/sec Med Peak E' Elio: 7.2 cm/sec MV A max elio: 93.7 cm/sec E/E' lat: 11.4 E/E' med: 16.9 MV E/A: 1.3 MV V2 max: 130.6 cm/sec MV P1/2t max elio: 132.6 cm/sec Ao V2 max: 110.6 cm/sec MV max P.8 mmHg MV P1/2t: 51.2 msec Ao max P.9 mmHg MV V2 mean: 88.6 cm/sec Ao V2 mean: 74.3 cm/sec MV mean P.6 mmHg MV dec slope: 759.4 cm/sec2 Ao mean P.5 mmHg MV V2 VTI: 21.3 cm MVA(P1/2t): 4.3 cm2 Ao V2 VTI: 19.9 cm AV (velocity ratio): 1.2 LV V1 max: 125.3 cm/sec MR max elio: 599.7 cm/sec PA V2 max: 72.4 cm/sec LV V1 max P.3 mmHg MR max P.8 mmHg LV V1 mean P.4 mmHg MR mean elio: 488.5 cm/sec LV V1 mean: 86.7 cm/sec MR mean P.0 mmHg LV V1 VTI: 23.9 cm MR VTI: 173.0 cm TR max elio: 252.1 cm/sec TR max P.4 mmHg ECHO/Echo Complete W/ Contrast Interpretation Summary The left ventricular ejection fraction is 65 %. Moderately severe (3+) posteriorly directed mitral valve insufficiency. Mild to moderate (1-2+) tricuspid valve insufficiency. Ordering Physician: Sal Cassidy Performed By: Neno Hernandez RCS
--- NOTE | 2022-12-20 17:06 | PN.GI_ITS ---
Subjective Subjective Patient did not get the liver biopsy today due to the fact her oxygen saturation was not very good. She is on supplemental oxygen at this time. She is being worked up by hospitalist service. Objective Data Objective Data Vital Signs: Vital Signs Temp Pulse Resp BP Pulse Ox O2 Del Method O2 Flow Rate 98.9 F 108 H 16 133/99 H 95 Room Air 2 12/20/22 16:26 12/20/22 16:26 12/20/22 16:26 12/20/22 16:26 12/20/22 16:12/20/22 16:12/20/22 09:28 Oxygen Flow Rate (L/min) [5] 3 Oxygen Flow Rate (L/min) [4] 3 Oxygen Flow Rate (L/min) [3] 3 Oxygen Flow Rate (L/min) [2] 2 Oxygen Flow Rate (L/min) [1 ( 2 Initial Baseline)] Oxygen Flow Rate (L/min) 2 Oxygen Delivery Method [5] Nasal Cannula Oxygen Delivery Method [4] Nasal Cannula Oxygen Delivery Method [3] Nasal Cannula Oxygen Delivery Method [2] Room Air Oxygen Delivery Method [1 ( Nasal Cannula Initial Baseline)] Oxygen Delivery Method Room Air Weight: 133 lb 6.4 oz Body Mass Index (BMI) 22.8 Intake & Output: Intake and Output for Last 24 Hours 12/18/22 12/19/22 12/20/22 23:59 23:59 23:59 Intake Total 3725.0 / 3725.0 3000 / 3000 2502.5 / 2502.5 Balance 3725.0 / 3725.0 3000 / 3000 2502.5 / 2502.5 Lab / Micro Data 12/17/22 06:39 12/20/22 05:35 Labs: Laboratory Results - last 24 hr 12/17/22 08:35: CA 19-9 Serial Monitor Not Reportable 12/20/22 05:35: Sodium 138, Potassium 4.4, Chloride 108 H, Carbon Dioxide 27.0, Anion Gap 3 L, BUN 7, Creatinine 0.65, Estim Creat Clear Calc 96.37, Est GFR (MDRD) Af Amer 129, Est GFR (MDRD) Non-Af 106, BUN/Creatinine Ratio 10.8, Glucose 104, Calcium 8.5, Total Bilirubin 0.70, AST 93 H, ALT 159 H, Alkaline Phosphatase 199 H, Total Protein 6.2 L, Albumin 2.3 L, Globulin 3.9, Al bumin/Globulin Ratio 0.6 L Radiography Diagnostic Testing: Radiology Impression Limited or Localized CT 12/20/22 06:00 IMPRESSION: Planned CT-guided percutaneous liver biopsy was held off as patient had a diminished O2 saturation and cavalry scout film showed mixed, diffuse bilateral interstitial and alveolar pulmonary infiltrates that were not present on chest x-ray 4 days ago. Once her pulmonary status has improved, she can be rescheduled for the imaging guided liver biopsy at a later date. Electronically Signed: Justin Lawrence MD at 10:03 EDT Reading Location ID and State: [id number] / Unknown , Service support , Chest X-Ray 12/20/22 09:43 IMPRESSION: New mixed, bilateral alveolar and interstitial pulmonary densities, accompanied by his very small left pleural effusion. Differential includes congestive failure with moderate pulmonary edema versus infection/inflammation. Electronically Signed: Justin Lawrence MD at 10:06 EDT Reading Location ID and State: [id number] / Unknown , Service support , Physical Exam Const alert and no apparent distress Resp normal respiratory effort, no retractions and no use of accessory muscles Resp Narrative: bibasilar crackles. Cardio Cardio Narrative: tachycardia. GI normal to inspection, nondistended, normoactive bowel sounds GI Narrative: less tender. no rebound. Assessment & Plan Assessment/Plan (1) Leukocytosis: (2) Transaminitis: PLAN: Transaminitis possibly secondary to alcoholic hepatitis although I suspect that there is some elements of chronic liver disease due to the fact that the ALT is greater than AST. That is not the classic alcoholic hepatitis pattern. There is no sign of chronic viral hepatitis from current work-up. She did have anti-[facility] [facility] [employer] antibody that is positive but that is associated mixed connective tissue disease and not usually associated with acute transaminitis secondary to acute hepatitis likely from ischemic disease versus acute alcoholic hepatitis. 12/20: Transaminitis is improving with the biliary stent. Continue to watch LFTs. She still needs a liver biopsy when medically stable. (3) Pancreatitis: QUALIFIERS: Chronicity: acute Pancreatitis type: alcohol induced Acute pancreatitis complication: no infection or necrosis Qualified Code(s): K85.20 - Alcohol induced acute pancreatitis without necrosis or infection PLAN: Acute alcoholic pancreatitis which was complicated by thrombosis of the mesenteric vessels. Her recent CT scan abdomen pelvis today did not show any signs of thrombosis in the portal vein or mesenteric vessels. There is also no sign of pancreatitis from ERCP yesterday. Work-up for an autoimmune cause such as IgG4 related type I autoimmune pancreatitis is negative. I suspect all this is from alcohol. However she does have a positive COLTON cardiolipin antibody. Repeat ESR and CRP for some objective data regarding her current pancreatitis admission. No sign of abdominal pain at this time secondary to history of pancreatitis. 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 There is a risk of transformation to hemorrhagic pancreatitis. I discussed this with the patient in detail and showed her the pictures of the large thrombosis involving the portal vein and other splenic vasculature. Repeat CT scan of the abdomen pelvis did not show any occlusive thrombosis of the portal vein which is really good. We would likely need hematology recommendations regarding long-term treatment of superior mesenteric and portal vein thrombosis. There was no sign of varices that were seen on repeat imaging in the stomach. 3/1: Oncology is leaning towards stopping anticoagulation due to patient having incomplete thrombosis. We will await recommendations. 3/2: Oncology is okay with the patient going on heparin subcutaneous injections for the 2 thrombosis that were seen. (5) Abnormal magnetic resonance cholangiopancreatography (MRCP): PLAN: Abnormal stricture noted in the distal one third of the pancreatic duct. Cytology was taken via brushings via ERCP yesterday. Stent was also placed. 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 She continues on anticoagulation. Charges/Coding Visit Charges Inpatient E&M: 49652 Subs Hosp L3
[2022-12-21] MEDS: Bisacodyl 5 MG Tablet 20 MG PO (00:01)
[2022-12-21 04:00] VITALS: BP 109/83; PULSE 78; RESP 18; TEMP 36.8; O2SAT 92
[2022-12-21 06:34] LABS: Absolute Lymphocyte Count 1.26 X10^3/uL (0.83-4.51); Absolute Neutrophil Count 3.3 X10^3/uL (2.0-7.7); Basophil# 0.05 X10^3/uL; Basophil% 0.8 % (0-1); Eosinophil# 0.26 X10^3/uL; Eosinophils% 4.3 % (0-5); Hematocrit 37.9 % (37-47); Hemoglobin 12.5 g/dL (12.0-15.0); Lymphocyte # 1.26 X10^3/ul (0.83-4.51); Mean Platelet Vol. 10.6 fl (6.2-12.0); Monocyte# 1.14 X10^3/uL; NRBC Flagged by Analyzer 0 % (0-5); Neutrophil # 3.27 X10^3/uL (2.7-7.7); Neutrophil % 54.4 % (47-70); Platelet Count 295 K/mm3 (150-450); RBC Distribution Width CV 14.3 % (11.6-14.6); RBC Distribution Width SD 52.6 fl (35.1-43.9); Red Blood Count 3.79 M/mm3 (4.2-5.4)
[2022-12-21 07:05] LABS: ALB/GLOB Ratio 0.6 RATIO (0.9-2.4); AST(SGOT) 68 U/L (15-37); Alanine Aminotransfer ALT/SGPT 140 U/L (13-56); Albumin, Serum 2.8 g/dL (3.2-5.0); Alkaline Phosphatase 208 U/L (45-117); Anion Gap 7 (5-15); BUN 11 mg/dL (7-18); BUN/Creat Ratio 13.1 RATIO (10-20); Calcium,Total 9.4 mg/dL (8.5-10.1); Chloride 99 mmol/L (98-107); Creatinine, Serum 0.84 mg/dL (0.55-1.02); EST Glomerular Filtration Rate 78 mL/min (>60); Est Glom Filt Rate - Afr Amer 95 mL/min (>60); Estimated Creatinine Clearance 74.57 ml/min; Globulin 4.4 g/dL (2.2-4.2); Glucose 114 mg/dL (74-106); Potassium 3.9 mmol/L (3.5-5.1); Protein, Total 7.2 g/dL (6.4-8.2); Sodium Level 135 mmol/L (136-145)
[2022-12-21 10:00] VITALS: BP 109/97; PULSE 78; RESP 16; TEMP 36.8; O2SAT 95
[2022-12-21 10:41] VITALS: O2SAT 95
[2022-12-21] MEDS: Potassium Chloride Oral Tablet 20 MEQ 40 MEQ PO (10:48)
[2022-12-21] MEDS: Senna/Docusate Sodium 1 Tablet 2 TABLET PO (10:48)
[2022-12-21] MEDS: Folic Acid 1 MG Tablet PO (10:49)
[2022-12-21] MEDS: Thiamine Hydrochloride 100 MG Tablet PO (10:49)
[2022-12-21] MEDS: Pantoprazole Sodium 20 MG Tablet PO (10:49)
[2022-12-21] MEDS: Gabapentin 100 MG Capsule PO (10:49)
[2022-12-21] MEDS: Lisinopril 20 MG Tablet PO (10:49)
[2022-12-21] MEDS: amLODIPine 5 MG Tablet PO (10:49)
[2022-12-21] MEDS: Furosemide 40 MG/4 ML Vial IV (10:50)
[2022-12-21] MEDS: 0.9% Saline Lock 10 ML Syringe IV (10:50)
[2022-12-21] MEDS: oxyCODONE 5 MG Tablet 10 MG PO (10:50)
[2022-12-21 11:03] VITALS: O2SAT 93; O2SAT 95
--- NOTE | 2022-12-21 11:30 | RAD_ITS ---
INDICATION: infiltrates EXAMINATION/TECHNIQUE: X-RAY - XR Chest 2 Views COMPARISON: December 20, 2022. FINDINGS: LINES/DEVICES: None. LUNGS: There is scarring versus atelectasis at the right and lung base. Otherwise no focal consolidation, edema or effusion. There is been significant resolution of airspace disease visualized one day prior. No pneumothorax. MEDIASTINUM AND CARDIOVASCULAR STRUCTURES: Cardiac silhouette not enlarged. Central airways and mediastinal contour are unremarkable. BONES AND SOFT TISSUES: Unremarkable. RAD/Chest PA and Lateral IMPRESSION: Scarring versus atelectasis in both lung bases. Significant interval resolution of bilateral airspace disease. Electronically Signed: James Saunders, at 14:46 EDT ,
--- NOTE | 2022-12-21 11:30 | DCINST_ITS ---
Discharge Instructions Diet Discharge Diet: No restrictions Activity Discharge Activity: Return to Normal Activity Weight Bearing Status: Full weight bearing Follow Up Care Test Results: Test results from this visit will be discussed in further detail at your follow- up appointment, if applicable. Discharge Plan Admission Admit Date/Time: 12/14/22 16:41 Primary Reason for Your Visit: pancreatitis Attending Provider: Riley Joseph Primary Care Provider: Care Physician,No Primary Consulting Providers: Sal Cassidy Instructions Patient Instructions: PERLA PUGA Biopsy Liver Dc, PERLA RN Procedural Sedation Discharge Orders/Prescriptions Prescriptions: New lisinopril 20 mg Tablet 20 mg PO DAILY Qty: 30 0RF amlodipine 5 mg Tablet 5 mg PO DAILY Qty: 30 0RF oxycodone 5 mg Tablet 5 - 10 mg PO Q6H 4 Days Qty: 15 0RF Continued tramadol 50 mg tablet 50 mg PO Q6H PRN (Reason: pain) Qty: 30 0RF enoxaparin [Lovenox] 100 mg/mL syringe 90 mg subcut Q24H 30 Days Qty: 27 3RF acetaminophen [Acetaminophen Extra Strength] 500 mg tablet 500 mg PO Q6H PRN (Reason: pain) sennosides-docusate sodium [Stool Softener-Stimulant Laxat] 8.6-50 mg Tablet 2 tab PO BID PRN (Reason: constipation) Creon 24,000-76,000 -120,000 unit capsule,delayed release(DR/EC) 1 cap PO TID omeprazole 20 mg capsule,delayed release(DR/EC) 20 mg PO DAILY Qty: 30 2RF Discontinued lisinopril 5 mg Tablet 5 mg PO DAILY 30 Days Qty: 30 3RF potassium 99 mg tablet 99 mg PO DAILY Referrals / Follow Up: Chandler Salamanca DO [Med Staff - Active Staff] - See Referral Note (in 3 weeks) Care Physician,No Primary [Primary Care Provider] - Disposition Disposition (needs filled in before D/C Order can be placed): Home, Self Care
--- NOTE | 2022-12-21 11:49 | PCM.DC.SUM ---
Providers Date of Admission: 12/14/22 Date of Discharge: 12/21/22 Primary Care Physician: Becca Primary Care Phys Consultations 12/15/22 16:59 Consult: Gastroenterology Routine Consulting Provider: Elif Gastroenterology Reason for Consult: pancreatitis EMERGENT Consult: No MD Notified: Yes Date Notified: 12/15/22 Time Notified: 17:00 Method of Notification: Text Reason For Visit: PANCREATITIS Diagnosis Discharge Diagnosis (1) Leukocytosis: Status: Deleted Code(s): D72.829 - Elevated white blood cell count, unspecified (2) Transaminitis: Status: Deleted Code(s): R74.01 - Elevation of levels of liver transaminase levels (3) Pancreatitis: Status: Chronic Code(s): K85.90 - Acute pancreatitis without necrosis or infection, unspecified Qualifiers: Acute pancreatitis complication: no infection or necrosis Chronicity: acute Pancreatitis type: alcohol induced Qualified Code(s): K85.20 - Alcohol induced acute pancreatitis without necrosis or infection (4) Superior mesenteric vein thrombosis: Status: Deleted Code(s): K55.069 - Acute infarction of intestine, part and extent unspecified (5) Abnormal magnetic resonance cholangiopancreatography (MRCP): Status: Deleted Code(s): R93.3 - Abnormal findings on diagnostic imaging of other parts of digestive tract (6) Thrombosis: Status: Deleted Code(s): I82.90 - Acute embolism and thrombosis of unspecified vein Plan Final diagnosis: #1 acute recurrent alcoholic pancreatitis #2 elevated liver enzymes possibly secondary to alcohol use #3 essential hypertension #4 chronic alcohol abuse #5 choledocholithiasis #6 bacteriuria #7 hypokalemia Medications at Discharge Home Medications tramadol 50 mg tablet 50 mg PO Q6H PRN pain #30 tabs 08/10/22 enoxaparin 100 mg/mL subcutaneous syringe (Lovenox) 90 mg (0.9 mL) subcut Q24H 30 days #27 mL 10/20/22 omeprazole 20 mg capsule,delayed release 20 mg PO DAILY ACIF REFLUX #30 caps 10/26/22 acetaminophen 500 mg tablet (Acetaminophen Extra Strength) 500 mg PO Q6H PRN pain 12/14/22 [id number] 24,000-76,000-120,000 unit capsule,delayed rel (Creon) 1 cap PO TID 12/14/22 sennosides 8.6 mg-docusate sodium 50 mg tablet (Stool Softener-Stimulant Laxative) 2 tab PO BID PRN constipation 12/14/22 amlodipine 5 mg tablet 5 mg PO DAILY #30 tabs 12/21/22 lisinopril 20 mg tablet 20 mg PO DAILY #30 tabs 12/21/22 oxycodone 5 mg tablet 5 - 10 mg (1 - 2 x 5 mg) PO Q6H 4 days #15 tabs 12/21/22 Hospital Course Operations None Procedures - (ERCP with removal of common bile duct stones and biliary sphincterotomy, dilation of the common bile duct, temporary stent placement in common bile duct) Summary of Care Provided Minutes Spent on Discharge: 31 Hospital Course: This 42-year-old white female presented to the emergency room at [facility] with complaints of mid abdominal pain, she had a history of episodes of pancreatitis in the past, work-up in the emergency room revealed her lipase to be 787, ALT and AST were elevated, alkaline phosphatase was also elevated. Patient's urinalysis showed +3 bacteria and some white cells, she received 1 dose of Rocephin in the emergency room but this abnormality was possibly just a bacteriuria and further treatment was not instituted. Patient's potassium was low at 2.7, she was given potassium replacement. Gallbladder ultrasound was performed which showed an extrahepatic biliary ductal dilatation and pancreatic ductal dilatation, fatty infiltration of the liver was noted. Patient was admitted to [place] [address], she was placed on IV fluids and given IV pain medications, she was seen in consultation by gastroenterology, an MRCP was performed which was notable for worsening mass effect of the distal common bile duct with increasing biliary dilatation, there is noted to be nodular thickening of the ampulla. An ERCP was performed with removal of stones from the common bile duct and dilatation and sphincterotomy. Patient's potassium was replaced and monitored, her abdominal pain improved during her hospitalization. On 12/21/2022, patient was seen and examined: On examination she appeared in good health and spirits, she does not appear to be in any distress. Vital signs as documented. Skin warm and dry and without overt rashes. Neck without JVD, thyroid appears normal, trachea is midline, neck is supple. Lungs clear, normal air movement was noted. Heart exam notable for regular rhythm, normal sounds and absence of murmurs, rubs or gallops. Abdomen unremarkable and without evidence of organomegaly, masses, or abdominal aortic enlargement, bowel sounds are present in all 4 quadrants, no abdominal tenderness was noted. Extremities nonedematous, no cyanosis was noted, no clubbing was noted. Neuro: Cranial nerves II through XII are grossly intact, no focal motor deficits were noted, sensation to light touch and pinprick is intact, motor exam 5/5 throughout. Psych: Patient is alert and oriented x3, she does not appear anxious or depressed, she does not appear agitated. Patient was discharged home on 12/21/2022, she was instructed to avoid alcohol usage. Weight / BMI Weight Weight: 60.509 kg Body Mass Index (BMI) 22.8 ABG / Lab / Microbiology Data 12/21/22 06:13 12/21/22 06:13 Laboratory: Laboratory Results - last 24 hr 12/21/22 06:13: WBC 6.0, RBC 3.79 L, Hgb 12.5, Hct 37.9, MCV 100.0 H, MCH 33.0 H, MCHC 33.0, RDW Std Deviation 52.6 H, RDW Coeff of Frankie 14.3, Plt Count 295, MPV 10.6, Immature Gran % (Auto) 0.500, Neut % (Auto) 54.4, Lymph % (Auto) 21.0, Sevier % (Auto) 19.0 H, Eos % (Auto) 4.3, Baso % (Auto) 0.8, Absolute Neuts (auto) 3.3, Absolute Lymphs (auto) 1.26, Nucleated RBC % 0, Sodium 135 L, Potassium 3.9, Chloride 99, Carbon Dioxide 29.0, Anion Gap 7, BUN 11, Creatinine 0.84, Estim Creat Clear Calc 74.57, Est GFR (MDRD) Af Amer 95, Est GFR (MDRD) Non-Af 78, BUN/Creatinine Ratio 13.1, Glucose 114 H, Calcium 9.4, Total Bilirubin 0.80, AST 68 H, ALT 140 H, Alkaline Phosphatase 208 H, Total Protein 7.2, Albumin 2.8 L, Globulin 4.4 H, Albumin/Globulin Ratio 0.6 L D/C Instructions Discharge Diet: No restrictions Weight Bearing Status: Full weight bearing Meaningful Use Info Meaningful Use Diagnoses (Choose all that apply): None applicable Discharge Plan Admission Admit Date/Time: 12/14/22 16:41 Primary Reason for Your Visit: pancreatitis Attending Provider: Riley Joseph Primary Care Provider: Care Physician,No Primary Consulting Providers: Sal Cassidy Instructions Patient Instructions: PERLA RN Biopsy Liver Dc, PERLA RN Procedural Sedation Discharge Orders/Prescriptions Prescriptions: New lisinopril 20 mg Tablet 20 mg PO DAILY Qty: 30 0RF amlodipine 5 mg Tablet 5 mg PO DAILY Qty: 30 0RF oxycodone 5 mg Tablet 5 - 10 mg PO Q6H 4 Days Qty: 15 0RF Continued tramadol 50 mg tablet 50 mg PO Q6H PRN (Reason: pain) Qty: 30 0RF enoxaparin [Lovenox] 100 mg/mL syringe 90 mg subcut Q24H 30 Days Qty: 27 3RF acetaminophen [Acetaminophen Extra Strength] 500 mg tablet 500 mg PO Q6H PRN (Reason: pain) sennosides-docusate sodium [Stool Softener-Stimulant Laxat] 8.6-50 mg Tablet 2 tab PO BID PRN (Reason: constipation) Creon 24,000-76,000 -120,000 unit capsule,delayed release(DR/EC) 1 cap PO TID omeprazole 20 mg capsule,delayed release(DR/EC) 20 mg PO DAILY Qty: 30 2RF Discontinued lisinopril 5 mg Tablet 5 mg PO DAILY 30 Days Qty: 30 3RF potassium 99 mg tablet 99 mg PO DAILY Referrals / Follow Up: Chandler Salamanca DO [Med Staff - Active Staff] - 05/26/23 1:20 pm (in 3 weeks If need anything before this appointment please call the office to talk to nurse) Care Physician,No Primary [Primary Care Provider] - Disposition Disposition (needs filled in before D/C Order can be placed): Home, Self Care Charges/Coding Visit Charges Inpatient E&M: 79201 Disch Hosp >30min
--- NOTE | 2022-12-21 12:21 | CASEMGMT ---
VIVIEN LYON NOTE: Pt being discharged. Scripts have been e-scribed to [facility]. Call to [facility] for hernandez check. Total cost of meds are $32.32. RN CAMRON to room. Pt made aware of cost and states this is affordable. Pt denies having any discharge planning needs or concerns. Maria Teresa ROMERON RN CM
--- NOTE | 2022-12-21 13:50 | PHA.DC.MC.R ---
Pharmacy [facility] has performed discharge medication reconciliation and counseling for this patient. 1. AMLODIPINE 5MG PO DAILY 2. OXYCODONE 5-10MG PO Q6H The patient's discharge medication list was reviewed for discrepancies and discrepancies were resolved. The patient was counseled on the following discharge medications and changes in medications for homegoing were reviewed. The Reason for Use, instructions for use, and potential side effects were reviewed for all new medications. The patient's questions regarding all of their medications were answered. The patient was able to verbally demonstrate an understanding of their discharge medications. Patient counseled by lead pharmacy technicianTu. Medications at Discharge Home Medications tramadol 50 mg tablet 50 mg PO Q6H PRN pain #30 tabs 08/10/22 enoxaparin 100 mg/mL subcutaneous syringe (Lovenox) 90 mg (0.9 mL) subcut Q24H 30 days #27 mL 10/20/22 omeprazole 20 mg capsule,delayed release 20 mg PO DAILY ACIF REFLUX #30 caps 10/26/22 acetaminophen 500 mg tablet (Acetaminophen Extra Strength) 500 mg PO Q6H PRN pain 12/14/22 [id number] 24,000-76,000-120,000 unit capsule,delayed rel (Creon) 1 cap PO TID 12/14/22 sennosides 8.6 mg-docusate sodium 50 mg tablet (Stool Softener-Stimulant Laxative) 2 tab PO BID PRN constipation 12/14/22 amlodipine 5 mg tablet 5 mg PO DAILY #30 tabs 12/21/22 lisinopril 20 mg tablet 20 mg PO DAILY #30 tabs 12/21/22 oxycodone 5 mg tablet 5 - 10 mg (1 - 2 x 5 mg) PO Q6H 4 days #15 tabs 12/21/22
== END 2022-12-21 14:40 | disposition home or self-care (01) | DRG 438 ==
LOC: ED 15:58 → MS3 16:53
PROVIDERS: Anesthesiology; Internal Medicine Gastroenterology; Emergency Provider Emergency Medicine; Visit Provider Internal Medicine
PROC: 0FC98ZZ Extirpation of Matter from Common Bile Duct, Via Natural or Artificial Opening Endoscopic (ICD-10-PCS; CPT 43260; principal; 2022-12-16 16:10)
DX: K85.20 Alcohol induced acute pancreatitis without necrosis or infection (principal); I81 Portal vein thrombosis; K55.069 Acute infarction of intestine, part and extent unspecified; D68.59 Other primary thrombophilia; K80.51 Calculus of bile duct without cholangitis or cholecystitis with obstruction; K83.8 Other specified diseases of biliary tract; K70.10 Alcoholic hepatitis without ascites; K76.0 Fatty (change of) liver, not elsewhere classified; I10 Essential (primary) hypertension; F10.10 Alcohol abuse, uncomplicated; E87.6 Hypokalemia; F17.210 Nicotine dependence, cigarettes, uncomplicated; D72.829 Elevated white blood cell count, unspecified; Z79.01 Long term (current) use of anticoagulants; Z79.891 Long term (current) use of opiate analgesic; R74.01 Elevation of levels of liver transaminase levels; R10.12 Left upper quadrant pain; R82.71 Bacteriuria; R09.02 Hypoxemia; K86.89 Other specified diseases of pancreas; Y90.9 Presence of alcohol in blood, level not specified
CPT/HCPCS: 36415; 71045; 71046; 74170; 74181; 74330; 76000; 76380; 76705; 80053; 81001; 81025; 82248; 82378; 83690; 83735; 84132; 85025; 85610; 85730; 86301; 88108; 88161; 88304; 88305; 88313; 93005; 93306; 94668; 94762; 99284; J7030; J7040; Q9957; Q9967; A4216; C8929; J1940; J2405; J3490

== ENCOUNTER 2022-12-29 12:22 | Emergency (ER) | payer SELFPAY ==
[2022-12-29 12:23] VITALS: BP 104/83; PULSE 98; RESP 18; TEMP 36.2; O2SAT 100; BMI 20.9
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
[2022-12-29 13:34] LABS: Absolute Lymphocyte Count 1.93 X10^3/uL (0.83-4.51); Basophil# 0.16 X10^3/uL; Basophil% 1.8 % (0-1); Eosinophil# 0.39 X10^3/uL; Eosinophils% 4.3 % (0-5); Hematocrit 39.5 % (37-47); Hemoglobin 13.2 g/dL (12.0-15.0); Lymphocyte # 1.93 X10^3/ul (0.83-4.51); Lymphocyte % 21.3 % (19-41); Mean Corp Hgb Conc 33.4 g/dL (32-36); Mean Corpuscular Hgb 33.4 pg (27.0-32.0); Mean Platelet Vol. 9.5 fl (6.2-12.0); Monocyte# 0.54 X10^3/uL; NRBC Flagged by Analyzer 0 % (0-5); Neutrophil # 6.01 X10^3/uL (2.7-7.7); Neutrophil % 66.3 % (47-70); Platelet Count 668 K/mm3 (150-450); RBC Distribution Width SD 52.3 fl (35.1-43.9); Red Blood Count 3.95 M/mm3 (4.2-5.4); White Blood Count 9.1 K/mm3 (4.4-11.0)
[2022-12-29] MEDS: Ondansetron 4 MG/2 ML Vial IV (13:39)
[2022-12-29] MEDS: Morphine 4 MG/ML Syringe IV (13:40)
[2022-12-29 13:50] LABS: ALB/GLOB Ratio 0.8 RATIO (0.9-2.4); AST(SGOT) 41 U/L (15-37); Alanine Aminotransfer ALT/SGPT 44 U/L (13-56); Albumin, Serum 3.3 g/dL (3.2-5.0); Alkaline Phosphatase 143 U/L (45-117); Anion Gap 8 (5-15); BUN 13 mg/dL (7-18); Calcium,Total 9.2 mg/dL (8.5-10.1); Chloride 103 mmol/L (98-107); EST Glomerular Filtration Rate 64 mL/min (>60); Est Glom Filt Rate - Afr Amer 78 mL/min (>60); Estimated Creatinine Clearance 62.64 ml/min; Globulin 4.4 g/dL (2.2-4.2); Glucose 118 mg/dL (74-106); Lipase 83 U/L (13-75); Potassium 3.9 mmol/L (3.5-5.1); Protein, Total 7.7 g/dL (6.4-8.2); Sodium Level 139 mmol/L (136-145)
== END 2022-12-29 15:02 | disposition home or self-care (01) ==
PROVIDERS: Emergency Provider Emergency Medicine; Visit Provider Emergency Medicine
DX: R10.11 Right upper quadrant pain (principal); I10 Essential (primary) hypertension; F17.210 Nicotine dependence, cigarettes, uncomplicated; R74.8 Abnormal levels of other serum enzymes; Z79.01 Long term (current) use of anticoagulants; Z96.89 Presence of other specified functional implants; R74.01 Elevation of levels of liver transaminase levels
CPT/HCPCS: 80053; 83690; 85025; 96374; 96375; 99282; J7030; A4216; J2405

== ENCOUNTER 2023-01-02 00:22 | Inpatient (IN) | payer SELFPAY ==
[2023-01-02] VITALS (11 sets, daily range): BP systolic 90–129; BP diastolic 55–94; PULSE 72–94; RESP 14–18; TEMP 36.4–36.9; O2SAT 95–100; BMI 21.6; BMI 21.2
--- NOTE | 2023-01-02 01:17 | CT_ITS ---
INDICATION: abd pain EXAMINATION: CT ABDOMEN AND PELVIS WITH CONTRAST - CT Abdomen And Pelvis W/ Contrast Injection TECHNIQUE: Helically acquired images were obtained of the abdomen and pelvis with sagittal and coronal reconstructed images. Individualized dose optimization techniques were used for this CT. IV contrast dosage and agent: 100 mL of Isovue-370. Oral contrast: None. COMPARISON: 12/17/2022 CT. FINDINGS: VESSELS: No abdominal aortic aneurysm or dissection. Splenic varices. LIVER: No evidence of a mass. Intrahepatic duct dilation. Mild pneumobilia. Dilated common bile duct measuring 1.5 cm diameter proximally. Common duct stent appears stable. GALLBLADDER: Moderately distended gallbladder. No calcified stones. No evidence of cholecystitis. PANCREAS: No focal solid or cystic mass. No evidence of pancreatitis. SPLEEN: Normal. ADRENAL GLANDS: Normal. KIDNEYS AND URETERS: Simple left renal cyst with no follow-up recommended. No urinary tract stone. No hydronephrosis or hydroureter. No significant asymmetric perinephric stranding. URINARY BLADDER: Unremarkable. BOWEL: No evidence of diverticulosis or diverticulitis. Appendix appears normal. No evidence of bowel obstruction. REPRODUCTIVE ORGANS: No evidence of a pelvic mass. PERITONEUM: No intraabdominal free fluid or free air. LYMPH NODES: No pathologically enlarged mesenteric or retroperitoneal lymph nodes. ABDOMINAL WALL: No abdominal or pelvic wall hernia. BONES: No acute abnormality. LOWER CHEST: Visualized lung bases are clear. CT/Abdomen/Pelvis W IV Cont ONLY IMPRESSION: 1. Dilated common bile duct measuring 1.5 cm in diameter, increased as compared to 12/17/2022 CT. Common bile duct stent appears stable. Newly visualized intrahepatic duct dilation and pneumobilia. Findings are concerning for a worsening distal common duct obstruction. 2. Distended gallbladder with no evidence of cholecystitis. 3. Splenic varices likely representing portal venous hypertension. Electronically Signed: Jake Zelaya DO at 2:45 EDT ,
[2023-01-02 01:36] LABS: Absolute Lymphocyte Count 2.33 X10^3/uL (0.83-4.51); Basophil# 0.14 X10^3/uL; Basophil% 1.7 % (0-1); Eosinophils% 3.6 % (0-5); Hematocrit 40.4 % (37-47); Hemoglobin 13.4 g/dL (12.0-15.0); Lymphocyte # 2.33 X10^3/ul (0.83-4.51); Lymphocyte % 27.7 % (19-41); Mean Corp Hgb Conc 33.2 g/dL (32-36); Mean Corpuscular Hgb 32.6 pg (27.0-32.0); Mean Corpuscular Volume 98.3 fL (81-99); Mean Platelet Vol. 10.2 fl (6.2-12.0); Monocyte# 0.59 X10^3/uL; NRBC Flagged by Analyzer 0 % (0-5); Neutrophil # 5.02 X10^3/uL (2.7-7.7); Neutrophil % 59.8 % (47-70); Platelet Count 621 K/mm3 (150-450); RBC Distribution Width CV 13.9 % (11.6-14.6); RBC Distribution Width SD 49.7 fl (35.1-43.9); Red Blood Count 4.11 M/mm3 (4.2-5.4); White Blood Count 8.4 K/mm3 (4.4-11.0)
[2023-01-02] MEDS: HYDROmorphone 1 MG/ML Syringe IV ×3 (01:36→06:26)
[2023-01-02] MEDS: Ondansetron 4 MG/2 ML Vial IV ×2 (01:36→06:26)
[2023-01-02] MEDS: 0.9% Normal Saline 1,000 ML 999 ML IV (01:36)
[2023-01-02 01:44] LABS: AST(SGOT) 98 U/L (15-37); Alanine Aminotransfer ALT/SGPT 54 U/L (13-56); Albumin, Serum 3.6 g/dL (3.2-5.0); Alkaline Phosphatase 227 U/L (45-117); Anion Gap 5 (5-15); BUN 11 mg/dL (7-18); BUN/Creat Ratio 13.2 RATIO (10-20); Bilirubin, Direct 0.19 mg/dL (0.00-0.30); Calcium,Total 9.3 mg/dL (8.5-10.1); Chloride 101 mmol/L (98-107); Creatinine, Serum 0.83 mg/dL (0.55-1.02); EST Glomerular Filtration Rate 79 mL/min (>60); Est Glom Filt Rate - Afr Amer 96 mL/min (>60); Estimated Creatinine Clearance 75.47 ml/min; Glucose 98 mg/dL (74-106); Lipase 52 U/L (13-75); Potassium 3.5 mmol/L (3.5-5.1); Protein, Total 7.6 g/dL (6.4-8.2); Sodium Level 135 mmol/L (136-145)
--- NOTE | 2023-01-02 04:12 | US_ITS ---
INDICATION: pain EXAMINATION: Ultrasound US Abdomen RUQ (limited) TECHNIQUE: Yee scale and color doppler imaging was performed of the right upper quadrant. COMPARISON: 12/14/2022 ultrasound and 01/02/2023 CT. FINDINGS: LIVER: Diffuse increased echogenicity. No evidence of a mass. Intrahepatic duct dilation. GALLBLADDER: Moderately distended. Sludge is present. No stones are seen. Normal wall thickness. No pericholecystic fluid. Negative sonographic Lindsay''s sign. COMMON BILE DUCT: Common duct stent partially visualized. Dilated measuring 1.3 cm in diameter. PANCREAS: Not well-visualized due to overlying bowel gas. RIGHT KIDNEY: Unremarkable. FREE FLUID: No free fluid in the right upper quadrant. US/Gallbladder IMPRESSION: 1. Dilated common bile duct measuring 1.3 cm in diameter and intrahepatic duct dilation. 2. Distended gallbladder with sludge and no evidence of cholecystitis. 3. Increased echogenicity of the liver which may represent fatty infiltration. Electronically Signed: Jake Zelaya DO at 5:31 EDT ,
[2023-01-02 05:02] LABS: Alcohol, Blood (Medical)-Serum < 3.0 mg/dL
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
[2023-01-02] MEDS: 0.9% Normal Saline 1,000 ML 200 ML IV ×2 (06:27→22:14)
--- NOTE | 2023-01-02 06:44 | NURSING ---
304 OBS WHITE INTRACTABLE ABD PAIN
--- NOTE | 2023-01-02 07:39 | PN.HOSP_ITS ---
Reason for Visit Reason for Visit: Diagnoses Unspecified abdominal pain (01/02/23) Subjective Subjective RUQ abdominal pain. Objective Data Objective Data Vital Signs: Vital Signs Temp Pulse Resp BP Pulse Ox O2 Del Method 36.6 C 72 14 100/68 100 Room Air 01/02/23 07:22 01/02/23 07:22 01/02/23 07:22 01/02/23 07:22 01/02/23 07:22 01/02/23 07:22 Oxygen Delivery Method Room Air Weight: 56 kg Body Mass Index (BMI) 21.2 Intake & Output: Intake and Output for Last 24 Hours 12/31/22 01/01/23 01/02/23 23:59 23:59 23:59 Intake Total 1000 / 1000 Balance 1000 / 1000 Lab / Micro Data 01/02/23 00:35 01/02/23 00:35 Labs: Laboratory Results - last 24 hr 01/02/23 00:35: WBC 8.4, RBC 4.11 L, Hgb 13.4, Hct 40.4, MCV 98.3, MCH 32.6 H, MCHC 33.2, RDW Std Deviation 49.7 H, RDW Coeff of Frankie 13.9, Plt Count 621 H, MPV 10.2, Immature Gran % (Auto) 0.200, Neut % (Auto) 59.8, Lymph % (Auto) 27.7, [place] % (Auto) 7.0, Eos % (Auto) 3.6, Baso % (Auto) 1.7 H, Absolute Neuts (auto) 5.0, Absolute Lymphs (auto) 2.33, Nucleated RBC % 0, Sodium 135 L, Potassium 3.5, Chloride 101, Carbon Dioxide 29.0, Anion Gap 5, BUN 11, Creatinine 0.83, Estim Creat Clear Calc 75.47, Est GFR (MDRD) Af Amer 96, Est GFR (MDRD) Non-Af 79, BUN/Creatinine Ratio 13.2, Glucose 98, Calcium 9.3, Total Bilirubin 0.40, Direct Bilirubin 0.19, AST 98 H, ALT 54, Alkaline Phosphatase 227 H, Total Protein 7.6, Albumin 3.6, Globulin 4.0, Lipase 52 01/02/23 04:15: Ethyl Alcohol < 3.0 Radiography Diagnostic Testing: Radiology Impression Abdomen/Pelvis CT 01/02/23 01:17 IMPRESSION: 1. Dilated common bile duct measuring 1.5 cm in diameter, increased as compared to 12/17/2022 CT. Common bile duct stent appears stable. Newly visualized intrahepatic duct dilation and pneumobilia. Findings are concerning for a worsening distal common duct obstruction. 2. Distended gallbladder with no evidence of cholecystitis. 3. Splenic varices likely representing portal venous hypertension. Electronically Signed: Jake LealDO edilia at 2:45 EDT , Gallbladder Ultrasound 01/02/23 04:12 IMPRESSION: 1. Dilated common bile duct measuring 1.3 cm in diameter and intrahepatic duct dilation. 2. Distended gallbladder with sludge and no evidence of cholecystitis. 3. Increased echogenicity of the liver which may represent fatty infiltration. Electronically Signed: Jake LealDO edilia at 5:31 EDT , Physical Exam Const alert and no apparent distress HEENT head/scalp atraumatic and moist oral mucous membranes Resp normal respiratory effort, no retractions, no use of accessory muscles and clear to auscultation bilaterally Cardio regular rate, regular rhythm, S1 normal heart sound and S2 normal heart sound GI normal to inspection, nondistended, normoactive bowel sounds and soft to palpation GI Narrative: RUQ abdominal pain. Assessment & Plan Assessment/Plan (1) Abdominal pain: PLAN: Recurrent abdominal pain, worsening with recent choledocholithiasis requiring stent placement: Data: * Recent MRCP with concern for worsening mass effect of the distal common bile duct with increasing biliary dilatation with noted nodular thickening of the ampulla * follow-up ERCP with removal of common bile duct stones with biliary sphincterotomy with dilatation of the common bile duct and temporary stent placement * CT showed Dilated common bile duct measuring 1.5 cm in diameter, increased as compared to 12/17/2022 CT. Common bile duct stent appears stable. Newly visualized intrahepatic duct dilation and pneumobilia. Findings are concerning for a worsening distal common duct obstruction. Distended gallbladder with no evidence of cholecystitis. Splenic varices likely representing portal venous hypertension. GI consulted Cannot rule out need for cholecystectomy. Consult General Surgery. Continue IVF, pain control and antiemetics. PLAN: Plan Chronic complicating conditions: * Hx EtOH Abuse with history of pancreatitis and alcoholic hepatitis: Patient prior with routine consumption of 4 vodka type drinks daily, EtOH level currently unremarkable and notes sober x 2 weeks. Encouraged continued sobriety. MVI, thiamine and folic acid. Case management consulted. * Portal vein thrombosis: Following w/ Dr. Urena, from most recent records had been on lovenox 90 mg daily with 12/01/22 CTA with patent portal vein thus lovenox decreased to 60 mg daily. * Hypertension: Continue home regimen including lisinopril, amlodipine, PRN hydralazine. * Hyperlipidemia: Not on regimen, given chronic issues with alcoholic hepatitis deferred. * Tobacco Abuse: Encouraged cessation, inpatient consultation per RT, NR if desired. * GERD: Continue patient on PPI. DVT prophylaxis: Continue lovenox 60 mg SC daily. Charges/Coding Visit Charges Inpatient E&M: 68927 Subs Hosp L2
[2023-01-02] MEDS: 0.9% Normal Saline 1,000 ML 125 ML IV ×2 (07:48→14:35)
[2023-01-02] MEDS: HYDROmorphone 0.5 MG/0.5 ML SYRINGE IV ×4 (08:11→21:26)
--- NOTE | 2023-01-02 12:51 | CASEMGMT ---
Social Work SW met w/pt briefly as she is listed as self pay. As per the last note from pt's last admission, she was working on getting her insurance active again. Pt states her insurance is still not active. She states she is working on it. Pt declined any financial resources, states she got them the last time. SW remains available should any needs arise. NYDIA Recinos
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
[2023-01-02] MEDS: Creon 24,000 unit DR Capsule 1 CAP PO (18:02)
[2023-01-02] MEDS: Senna/Docusate Sodium 1 Tablet 2 TABLET PO (21:36)
[2023-01-03] VITALS (10 sets, daily range): BP systolic 108–144; BP diastolic 74–98; PULSE 68–105; RESP 16–18; TEMP 36.3–37.1; O2SAT 95–100; BMI 21.4
[2023-01-03] MEDS: HYDROmorphone 0.5 MG/0.5 ML SYRINGE IV ×6 (01:43→23:24)
[2023-01-03] MEDS: 0.9% Normal Saline 1,000 ML 200 ML IV ×2 (03:29→09:23)
[2023-01-03 05:36] LABS: Absolute Lymphocyte Count 1.98 X10^3/uL (0.83-4.51); Absolute Neutrophil Count 2.8 X10^3/uL (2.0-7.7); Basophil# 0.09 X10^3/uL; Basophil% 1.6 % (0-1); Eosinophil# 0.29 X10^3/uL; Eosinophils% 5.1 % (0-5); Hematocrit 34.2 % (37-47); Hemoglobin 10.9 g/dL (12.0-15.0); Lymphocyte # 1.98 X10^3/ul (0.83-4.51); Lymphocyte % 35.1 % (19-41); Mean Corp Hgb Conc 31.9 g/dL (32-36); Mean Corpuscular Hgb 32.3 pg (27.0-32.0); Mean Corpuscular Volume 101.5 fL (81-99); Mean Platelet Vol. 9.4 fl (6.2-12.0); Monocyte# 0.45 X10^3/uL; NRBC Flagged by Analyzer 0 % (0-5); Neutrophil # 2.82 X10^3/uL (2.7-7.7); Platelet Count 403 K/mm3 (150-450); RBC Distribution Width CV 13.6 % (11.6-14.6); RBC Distribution Width SD 50.8 fl (35.1-43.9); Red Blood Count 3.37 M/mm3 (4.2-5.4); White Blood Count 5.6 K/mm3 (4.4-11.0)
[2023-01-03 06:03] LABS: ALB/GLOB Ratio 0.8 RATIO (0.9-2.4); AST(SGOT) 22 U/L (15-37); Alanine Aminotransfer ALT/SGPT 29 U/L (13-56); Albumin, Serum 2.6 g/dL (3.2-5.0); Alkaline Phosphatase 144 U/L (45-117); Anion Gap 1 (5-15); BUN 6 mg/dL (7-18); BUN/Creat Ratio 9.2 RATIO (10-20); Calcium,Total 8.4 mg/dL (8.5-10.1); Chloride 111 mmol/L (98-107); Creatinine, Serum 0.65 mg/dL (0.55-1.02); EST Glomerular Filtration Rate 106 mL/min (>60); Est Glom Filt Rate - Afr Amer 128 mL/min (>60); Estimated Creatinine Clearance 96.37 ml/min; Globulin 3.3 g/dL (2.2-4.2); Glucose 98 mg/dL (74-106); Potassium 3.8 mmol/L (3.5-5.1); Protein, Total 5.9 g/dL (6.4-8.2); Sodium Level 141 mmol/L (136-145)
--- NOTE | 2023-01-03 07:14 | PN.HOSP_ITS ---
Reason for Visit Reason for Visit: Diagnoses Elevated white blood cell count, unspecified (01/02/23) Acute embolism and thrombosis of unspecified vein (01/02/23) Acute infarction of intestine, part and extent unspecified (01/02/23) Alcohol induced acute pancreatitis without necrosis or infection (01/02/23) Unspecified abdominal pain (01/02/23) Elevation of levels of liver transaminase levels (01/02/23) Abnormal findings on diagnostic imaging of other parts of digestive tract (01/02/23) Subjective Subjective Still with abdominal pain. RUQ. No change. Objective Data Objective Data Vital Signs: Vital Signs Temp Pulse Resp BP Pulse Ox O2 Del Method 36.7 C 74 16 116/78 99 Room Air 01/03/23 03:01 01/03/23 03:01 01/03/23 03:01 01/03/23 03:01 01/03/23 03:01 01/03/23 03:01 Oxygen Delivery Method Room Air Weight: 57.1 kg Body Mass Index (BMI) 21.4 Intake & Output: Intake and Output for Last 24 Hours 01/01/23 01/02/23 01/03/23 23:59 23:59 23:59 Intake Total 4295.00 / 4295.00 1122.92 / 1122.92 Output Total 400 / 400 Balance 4295.00 / 3895.00 722.92 / 722.92 Lab / Micro Data 01/03/23 05:28 01/03/23 05:28 Labs: Laboratory Results - last 24 hr 01/03/23 05:28: WBC 5.6, RBC 3.37 L, Hgb 10.9 L, Hct 34.2 L, MCV 101.5 H, MCH 32.3 H, MCHC 31.9 L, RDW Std Deviation 50.8 H, RDW Coeff of Frankie 13.6, Plt Count 403, MPV 9.4, Immature Gran % (Auto) 0.200, Neut % (Auto) 50.0, Lymph % (Auto) 35.1, [place] % (Auto) 8.0, Eos % (Auto) 5.1 H, Baso % (Auto) 1.6 H, Absolute Neuts (auto) 2.8, Absolute Lymphs (auto) 1.98, Nucleated RBC % 0, Sodium 141, Potassium 3.8, Chloride 111 H, Carbon Dioxide 29.0, Anion Gap 1 L, BUN 6 L, Creatinine 0.65, Estim Creat Clear Calc 96.37, Est GFR (MDRD) Af Amer 128, Est GFR (MDRD) Non-Af 106, BUN/Creatinine Ratio 9.2 L, Glucose 98, Calcium 8.4 L, Total Bilirubin 0.20, AST 22, ALT 29, Alkaline Phosphatase 144 H, Total Protein 5.9 L, Albumin 2.6 L, Globulin 3.3, Albumin/Globulin Ratio 0.8 L Physical Exam Const alert and no apparent distress HEENT head/scalp atraumatic and moist oral mucous membranes GI GI Narrative: RUQ abdominal pain. Assessment & Plan Assessment/Plan (1) Abdominal pain: QUALIFIERS: Abdominal location: right upper quadrant Qualified Code(s): R10.11 - Right upper quadrant pain PLAN: Recurrent abdominal pain, worsening with recent choledocholithiasis requiring stent placement: Data: * Recent MRCP with concern for worsening mass effect of the distal common bile duct with increasing biliary dilatation with noted nodular thickening of the ampulla * follow-up ERCP with removal of common bile duct stones with biliary sphincterotomy with dilatation of the common bile duct and temporary stent placement * CT showed Dilated common bile duct measuring 1.5 cm in diameter, increased as compared to 12/17/2022 CT. Common bile duct stent appears stable. Newly visualized intrahepatic duct dilation and pneumobilia. Findings are concerning for a worsening distal common duct obstruction. Distended gallbladder with no evidence of cholecystitis. Splenic varices likely representing portal venous hypertension. GI consulted. ERCP pending. General surgery consult. No plans for cholecystectomy at this time. Continue IVF, pain control and antiemetics. PLAN: Plan Chronic complicating conditions: * Hx EtOH Abuse with history of pancreatitis and alcoholic hepatitis: Patient prior with routine consumption of 4 vodka type drinks daily, EtOH level currently unremarkable and notes sober x 2 weeks. Encouraged continued sobriety. MVI, thiamine and folic acid. Case management consulted. * Portal vein thrombosis: Following w/ Dr. Urena, from most recent records had been on lovenox 90 mg daily with 12/01/22 CTA with patent portal vein thus lovenox decreased to 60 mg daily. * Hypertension: Continue home regimen including lisinopril, amlodipine, PRN hydralazine. * Hyperlipidemia: Not on regimen, given chronic issues with alcoholic hepatitis deferred. * Tobacco Abuse: Encouraged cessation, inpatient consultation per RT, NR if brittanie red. * GERD: Continue patient on PPI. DVT prophylaxis: Continue lovenox 60 mg SC daily. Charges/Coding Visit Charges Inpatient E&M: 02132 Subs Hosp L2
--- NOTE | 2023-01-03 08:50 | PCM.PN.SRG ---
Subjective Subjective Patient seen and examined on a.m. rounds. She is found resting quietly in bed but sits upright once she is aroused. She states that she still has some tenderness in her upper abdomen, but overall it may be slightly improved. She relates that gastroenterology plans to repeat an ERCP later today to check out her stent. Objective Data Objective Data Vital Signs: Vital Signs Temp Pulse Resp BP Pulse Ox O2 Del Method 98.0 F 74 16 116/78 99 Room Air 01/03/23 03:01 01/03/23 03:01 01/03/23 03:01 01/03/23 03:01 01/03/23 03:01 01/03/23 03:01 Oxygen Delivery Method Room Air Weight: 125 lb 14.143 oz Body Mass Index (BMI) 21.4 Intake & Output: Intake and Output for Last 24 Hours 01/01/23 01/02/23 01/03/23 23:59 23:59 23:59 Intake Total 4295.00 / 4295.00 1122.92 / 1122.92 Output Total 400 / 400 Balance 4295.00 / 3895.00 722.92 / 722.92 Lab / Micro Data 01/03/23 05:28 01/03/23 05:28 Labs: Laboratory Results - last 24 hr 01/03/23 05:28: WBC 5.6, RBC 3.37 L, Hgb 10.9 L, Hct 34.2 L, MCV 101.5 H, MCH 32.3 H, MCHC 31.9 L, RDW Std Deviation 50.8 H, RDW Coeff of Frankie 13.6, Plt Count 403, MPV 9.4, Immature Gran % (Auto) 0.200, Neut % (Auto) 50.0, Lymph % (Auto) 35.1, [place] % (Auto) 8.0, Eos % (Auto) 5.1 H, Baso % (Auto) 1.6 H, Absolute Neuts (auto) 2.8, Absolute Lymphs (auto) 1.98, Nucleated RBC % 0, Sodium 141, Potassium 3.8, Chloride 111 H, Carbon Dioxide 29.0, Anion Gap 1 L, BUN 6 L, Creatinine 0.65, Estim Creat Clear Calc 96.37, Est GFR (MDRD) Af Amer 128, Est GFR (MDRD) Non-Af 106, BUN/Creatinine Ratio 9.2 L, Glucose 98, Calcium 8.4 L, Total Bilirubin 0.20, AST 22, ALT 29, Alkaline Phosphatase 144 H, Total Protein 5.9 L, Albumin 2.6 L, Globulin 3.3, Albumin/Globulin Ratio 0.8 L Physical Exam Const oriented x3 Resp normal respiratory effort GI GI Narrative: Nondistended soft, tenderness present in the epigastrium with palpation. Negative Lindsay sign. Assessment & Plan Assessment/Plan (1) Intractable abdominal pain: PLAN: This is a 42-year-old female who was admitted for intractable abdominal pain now status post ERCP with stone extraction and common bile duct stenting earlier this month on 12/16/2022. ER work-up with both CT imaging and ultrasound do not show any evidence of cholecystitis. Moreover, radiology does not identify any further gallstones within the gallbladder. On repeat exam today patient still has no positive Lindsay sign and appears less tender in the right abdomen. She is pending ERCP with GI to evaluate for possible stent occlusion. GI suspects ongoing hepatitis. At this time I find no cause for surgical intervention for patient's gallbladder and defer to ongoing GI evaluation. Charges/Coding Visit Charges Inpatient E&M: 19699 Subs Hosp L2
[2023-01-03] MEDS: 0.9% Saline Lock 10 ML Syringe IV ×2 (09:24→19:59)
[2023-01-03] MEDS: amLODIPine 5 MG Tablet PO (09:30)
[2023-01-03] MEDS: Lisinopril 20 MG Tablet PO (09:30)
[2023-01-03] MEDS: Senna/Docusate Sodium 1 Tablet 2 TABLET PO (09:36)
[2023-01-03] MEDS: 0.9% Normal Saline 1,000 ML 125 ML IV ×2 (11:37→18:59)
--- NOTE | 2023-01-03 14:00 | EX.PCM.PN.GI ---
Subjective Subjective Patient is still complaining of abdominal pain. She rates her abdominal pain at a 6 out of 10. Objective Data Objective Data Vital Signs: Vital Signs Temp Pulse Resp BP Pulse Ox O2 Del Method 98 F 68 16 108/84 H 100 Room Air 01/03/23 14:48 01/03/23 14:48 01/03/23 14:48 01/03/23 14:48 01/03/23 14:48 01/03/23 14:48 Oxygen Delivery Method Room Air Weight: 125 lb 14.143 oz Body Mass Index (BMI) 21.4 Intake & Output: Intake and Output for Last 24 Hours 01/01/23 01/02/23 01/03/23 23:59 23:59 23:59 Intake Total 4295.00 / 4295.00 2559.58 / 2559.58 Output Total 400 / 400 Balance 4295.00 / 3895.00 2159.58 / 2159.58 Lab / Micro Data 01/03/23 05:28 01/03/23 05:28 Labs: Laboratory Results - last 24 hr 01/03/23 05:28: WBC 5.6, RBC 3.37 L, Hgb 10.9 L, Hct 34.2 L, MCV 101.5 H, MCH 32.3 H, MCHC 31.9 L, RDW Std Deviation 50.8 H, RDW Coeff of Frankie 13.6, Plt Count 403, MPV 9.4, Immature Gran % (Auto) 0.200, Neut % (Auto) 50.0, Lymph % (Auto) 35.1, [place] % (Auto) 8.0, Eos % (Auto) 5.1 H, Baso % (Auto) 1.6 H, Absolute Neuts (auto) 2.8, Absolute Lymphs (auto) 1.98, Nucleated RBC % 0, Sodium 141, Potassium 3.8, Chloride 111 H, Carbon Dioxide 29.0, Anion Gap 1 L, BUN 6 L, Creatinine 0.65, Estim Creat Clear Calc 96.37, Est GFR (MDRD) Af Amer 128, Est GFR (MDRD) Non-Af 106, BUN/Creatinine Ratio 9.2 L, Glucose 98, Calcium 8.4 L, Total Bilirubin 0.20, AST 22, ALT 29, Alkaline Phosphatase 144 H, Total Protein 5.9 L, Albumin 2.6 L, Globulin 3.3, Albumin/Globulin Ratio 0.8 L Physical Exam Const oriented x3 Resp normal respiratory effort GI GI Narrative: Nondistended soft, tenderness present in the epigastrium with palpation. Negative Lindsay sign. Assessment & Plan Assessment/Plan (1) Leukocytosis: QUALIFIERS: Leukocytosis type: other Qualified Code(s): D72.828 - Other elevated white blood cell count PLAN: resolved (2) Transaminitis: PLAN: Transaminitis possibly secondary to alcoholic hepatitis although I suspect that there is some elements of chronic liver disease due to the fact that the ALT is greater than AST. That is not the classic alcoholic hepatitis pattern. There is no sign of chronic viral hepatitis from current work-up. She did have anti-ANALOG IC DESIGN ENGINEER antibody that is positive but that is associated mixed connective tissue disease and not usually associated with acute transaminitis secondary to acute hepatitis likely from ischemic disease versus acute alcoholic hepatitis. (3) Pancreatitis: QUALIFIERS: Chronicity: acute Pancreatitis type: alcohol induced Acute pancreatitis complication: no infection or necrosis Qualified Code(s): K85.20 - Alcohol induced acute pancreatitis without necrosis or infection PLAN: Acute alcoholic pancreatitis which was complicated by thrombosis of the mesenteric vessels. Her recent CT scan abdomen pelvis today did not show any signs of thrombosis in the portal vein or mesenteric vessels. It did display splenic varices. There was no sign of varices in her stomach. There is also no sign of pancreatitis om imaging at this time. Work-up for an autoimmune cause such as IgG4 related type I autoimmune pancreatitis is negative. I suspect all this is from alcohol. However she does have a positive COLTON cardiolipin antibody. Repeat ESR and CRP for some objective data regarding her current pancreatitis admission. No sign of abdominal pain at this time secondary to history of pancreatitis. 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 There is a risk of transformation to hemorrhagic pancreatitis. I discussed this with the patient in detail and showed her the pictures of the large thrombosis involving the portal vein and other splenic vasculature. Repeat CT scan of the abdomen pelvis did not show any occlusive thrombosis of the portal vein which is really good. We would likely need hematology recommendations regarding long-term treatment of superior mesenteric and portal vein thrombosis. There was no sign of varices that were seen on repeat imaging in the stomach. (5) Abnormal magnetic resonance cholangiopancreatography (MRCP): PLAN: h/o Abnormal stricture noted in the distal one third of the pancreatic duct. Cytology was taken via brushings via ERCP yesterday. Stent was also placed. 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 She continues on anticoagulation. Charges/Coding Visit Charges Inpatient E&M: 83474 [facility] Hosp L3
--- NOTE | 2023-01-03 16:00 | FLU_PTH ---
PATIENT: ERWIN GROVES LOC: MS3 U#:[id number] AGE/SX: 42/F ROOM: MS308 RE01/03/[address]: Dr. Sal Cassidy DO : 1980 BED: 1 DIS: 01/04/2023 SPEC #: [id number] RECD: 01/04/23 09:18 STATUS: DOUGLAS REQ #: [id number] MARICRUZ: 01/03/23 16:[address]: Chandler Salamanca DEPT: CYTOLOGY RECD BY: Margret Leija ENTERED: 01/04/23 09:19 SP TYPE: Fluid OTHR DR: MD Dr. Sal Vo DO Dr. Michael Bortz, MD No Primary Care Phys Tissues: A - Bile duct, NOS B - Bile duct, NOS C - Bile duct, NOS Procedures: Special Stain Group II Surgery Specimen Level IV Cytospin Fluid Cytology Other Comments: @ Ordering doctor for SSII edited from to @ by LAISHA at 01/04/23 1405 @ Ordering doctor for SUIV edited from to @ by LAISHA at 01/04/23 1405 @ Ordering doctor for CYSPIN edited from to @ by [email or web address] at 01/04/23 1405 @ Ordering doctor for CYOTHER edited from to @ by LAISHA at 01/04/23 1405 @ Submitting doctor edited from to DR.RFRIEN Khan by RGOOD at 01/04/23 1405 HEADER OPERATION: ERCP, removal of common bile duct stent PRE-OP DIAGNOSIS: Leukocytosis, transaminitis, pancreatitis, superior mesenteric vein thrombosis TISSUE SUBMITTED: A - Common bile duct brushing x4 slides, B - Common bile duct brush tip, C - Common bile duct stent DIAGNOSIS CYTOLOGY A. Common bile duct brushings (smears): Occasional atypical epithelial cells present. See comment. B. Common bile duct brushings (cytospin and cell block): Atypical epithelial cells present. See comment. C. Common bile duct stent fluid (cytospin and cell block): Abundant bacterial organisms present. No evidence of malignancy. Negative for fungal organisms. See comment. AM:nidhi 01/05/2023 COMMENT A. Small clusters of atypical epithelial cells are present. Clinical correlation is suggested. B. Clinical correlation is suggested. C. AFB & GMS stains with matched control was used in the evaluation of this case and are negative for acid fast bacilli and fungal organisms. Reference is made to the patient's previous biliary stricture brushings and fluid ([id number]) in which a few clusters of mildly atypical ductal cells were identified. Case has been reviewed in consultation with Dr. Duarte who concurs with the above diagnosis. IDC:SJ CYTOLOGY STUDY Slides are reviewed. CYTOLOGY GROSS A - Received are four smears labeled with the patient's name and designated per the requisition as common bile duct brushing. Submitted for staining. B - Received is a metallic endoscopic cytobrush with adherent minute fragments of michelle-red tissue brush in 2 ml of clear red fluid and labeled with the patient's name and and designated per the requisition as common bile duct brush tip. The material is dislodged from the brush and submitted for cytology preparation including cell block. C - Received in fixative is one container labeled with the patient's name and designated common bile duct stent. The specimen consists of a scant amount of soft tissue. The specimen is totally submitted for cell block preparation. / nidhi 01/04/2023 TC:? CPT: 23499, 15220 x2, 75102 x2, 13813
[2023-01-03] MEDS: Lactated Ringers 1,000 ML 15 ML IV (16:36)
--- NOTE | 2023-01-03 17:15 | RAD_ITS ---
Fluoroscopic guided ERCP INDICATION: Abdominal pain TECHNIQUE: Fluoroscopic guided ERCP was performed by the attending cumulative effects analyst utilizing 66.2 seconds of fluoroscopic time. FINDINGS: During the study, 6 fluoroscopic guided images were obtained in the anterior projection to confirm findings during the exam. For more complete information recommend correlation with procedural notes. RAD/ERCP Biliary/Pancreas IMPRESSION: Fluoroscopic guided ERCP. Electronically Signed: Jake Garland MD at 19:03 EDT ,
--- NOTE | 2023-01-03 17:50 | OP.ERCP_ITS ---
Patient Name: Melva Kerns Procedure Date: 01/03/2023 5:01 PM Date of : 1980 Age: 42 Procedure: ERCP Indications: Jaundice, Elevated liver enzymes, Suspected acute recurrent pancreatitis Providers: Chandler Salamanca DO Medicines: Monitored Anesthesia Care Patient Profile: This is a 42 year old female. Refer to note in patient chart for documentation of history and physical. Patient has symptoms of acute right upper quadrant abdominal pain and acute jaundice. Complications: No immediate complications. Procedure: Pre-Anesthesia Assessment: - Prior to the procedure, a History and Physical was performed, and patient medications and allergies were reviewed. The patient is competent. The risks and benefits of the procedure and the sedation options and risks were discussed with the patient. All questions were answered and informed consent was obtained. Patient identification and proposed procedure were verified by the physician in the pre-procedure area. Mental Status Examination: alert and oriented. Airway Examination: normal oropharyngeal airway and neck mobility. Respiratory Examination: clear to auscultation. CV Examination: normal. Prophylactic Antibiotics: The patient does not require prophylactic antibiotics. Prior Anticoagulants: The patient has taken no previous anticoagulant or antiplatelet agents. ASA Grade Assessment: II - A patient with mild systemic disease. After reviewing the risks and benefits, the patient was deemed in satisfactory condition to undergo the procedure. The anesthesia plan was to use moderate sedation / analgesia (conscious sedation). Immediately prior to administration of medications, the patient was re-assessed for adequacy to receive sedatives. The heart rate, respiratory rate, oxygen saturations, blood pressure, adequacy of pulmonary ventilation, and response to care were monitored throughout the procedure. The physical status of the patient was re-assessed after the procedure. After obtaining informed consent, the scope was passed under direct vision. Throughout the procedure, the patient's blood pressure, pulse, and oxygen saturations were monitored continuously. The Duodenoscope was introduced through the mouth, and advanced to the duodenum and used to inject contrast into the bile duct. The ERCP was accomplished without difficulty. The patient tolerated the procedure well. Scope In: 5:26:09 PM Scope Out: 5:45:02 PM Total Procedure Duration Time 0 hours 18 minutes 53 seconds Findings: The fingernail former film was normal. The esophagus was successfully intubated under direct vision. The scope was advanced to a normal major papilla in the descending duodenum without detailed examination of the pharynx, larynx and associated structures, and upper GI tract. The upper GI tract was grossly normal. The bile duct was deeply cannulated with the short-nosed traction sphincterotome. Contrast was injected. I personally interpreted the bile duct images. There was brisk flow of contrast through the ducts. Image quality was excellent. Contrast extended to the entire biliary tree. A straight Roadrunner wire was passed into the biliary tree. A 5 mm biliary sphincterotomy was made with a braided traction (standard) sphincterotome using ERBE electrocautery. The sphincterotomy oozed blood. To discover objects, the biliary tree was swept with a 12 mm balloon starting at the bifurcation. Mucus was swept from the duct. Debris was swept from the duct. Sludge was swept from the duct. Dilation of the common bile duct with a 12-13.5-15 mm balloon (to a maximum balloon size of 15 mm) dilator was successful. The biliary tree contained one temporary stent. This was found to be partially occluded. The stent was removed using a rat-toothed forceps. It was shown to be partially occluded via the water column test. A 10 Fr by 5 cm temporary stent with two external flaps and two internal flaps was placed 5 cm into the biliary tree. Clear fluid flowed through the stent. The stent was in good position. Cells for cytology were obtained by brushing in the lower third of the main bile duct. Impression: - A biliary sphincterotomy was performed. - The biliary tree was swept and mucus, debris and sludge were found. Procedure Code(s): --- Professional --- 46609, Endoscopic retrograde cholangiopancreatography (ERCP); with removal and exchange of stent(s), biliary or pancreatic duct, including pre- and post-dilation and guide wire passage, when performed, including sphincterotomy, when performed, each stent exchanged [id number], Endoscopic retrograde cholangiopancreatography (ERCP); with removal of calculi/debris from biliary/pancreatic duct(s) 34890, 26, Endoscopic catheterization of the biliary ductal system, radiological supervision and interpretation CPT copyright 2017 [employer]. All rights reserved. The codes documented in this report are preliminary and upon sales manager prearranged funerals review may be revised to meet current compliance requirements. Chandler Salamanca DO 01/03/2023 5:49:45 PM This report has been signed electronically. Number of Addenda: 0 Note Initiated On: 01/03/2023 5:01 PM
--- NOTE | 2023-01-03 17:50 | OP.CCLET_ITS ---
01/03/2023 No Primary Care Physician Re : ERCP procedure for Melva Kerns Dear Care Physician This procedure was performed on Tuesday, January 03, 2023. My impressions and recommendations are as follows: Impressions : - A biliary sphincterotomy was performed. - The biliary tree was swept and mucus, debris and sludge were found. Recommendations : My findings are described in the full procedure note, which is enclosed. If I can be of further assistance, please feel free to contact me at . Sincerely, Chandler Salamanca, 01/03/2023 5:49:45 PM This report has been signed electronically.
[2023-01-03] MEDS: oxyCODONE 5 MG Tablet PO (20:55)
[2023-01-04 02:53] VITALS: BP 108/71; PULSE 80; RESP 18; TEMP 36.6; O2SAT 96
[2023-01-04] MEDS: HYDROmorphone 0.5 MG/0.5 ML SYRINGE IV ×3 (02:55→09:53)
[2023-01-04] MEDS: 0.9% Normal Saline 1,000 ML 125 ML IV (02:58)
[2023-01-04 05:55] LABS: Absolute Lymphocyte Count 0.83 X10^3/uL (0.83-4.51); Absolute Neutrophil Count 3.7 X10^3/uL (2.0-7.7); Basophil# 0.02 X10^3/uL; Basophil% 0.4 % (0-1); Hematocrit 33.4 % (37-47); Hemoglobin 11.2 g/dL (12.0-15.0); Lymphocyte # 0.83 X10^3/ul (0.83-4.51); Lymphocyte % 17.8 % (19-41); Mean Corp Hgb Conc 33.5 g/dL (32-36); Mean Corpuscular Hgb 33.3 pg (27.0-32.0); Mean Corpuscular Volume 99.4 fL (81-99); Mean Platelet Vol. 10.2 fl (6.2-12.0); Monocyte# 0.13 X10^3/uL; Monocyte% 2.8 % (0-10); NRBC Flagged by Analyzer 0 % (0-5); Neutrophil # 3.66 X10^3/uL (2.7-7.7); Neutrophil % 78.6 % (47-70); Platelet Count 407 K/mm3 (150-450); RBC Distribution Width CV 13.2 % (11.6-14.6); RBC Distribution Width SD 48.1 fl (35.1-43.9); Red Blood Count 3.36 M/mm3 (4.2-5.4); White Blood Count 4.7 K/mm3 (4.4-11.0)
[2023-01-04 06:29] LABS: ALB/GLOB Ratio 0.7 RATIO (0.9-2.4); AST(SGOT) 19 U/L (15-37); Alanine Aminotransfer ALT/SGPT 24 U/L (13-56); Albumin, Serum 2.5 g/dL (3.2-5.0); Alkaline Phosphatase 126 U/L (45-117); Anion Gap 4 (5-15); BUN 8 mg/dL (7-18); BUN/Creat Ratio 12.4 RATIO (10-20); Calcium,Total 8.5 mg/dL (8.5-10.1); Chloride 109 mmol/L (98-107); Creatinine, Serum 0.64 mg/dL (0.55-1.02); EST Glomerular Filtration Rate 106 mL/min (>60); Est Glom Filt Rate - Afr Amer 129 mL/min (>60); Estimated Creatinine Clearance 97.87 ml/min; Globulin 3.5 g/dL (2.2-4.2); Glucose 231 mg/dL (74-106); Potassium 3.8 mmol/L (3.5-5.1); Sodium Level 138 mmol/L (136-145)
[2023-01-04 07:47] VITALS: BP 115/79; PULSE 69; RESP 18; TEMP 36.7; O2SAT 99
[2023-01-04] MEDS: oxyCODONE 5 MG Tablet PO (07:57)
[2023-01-04] MEDS: Folic Acid 1 MG Tablet PO (07:57)
[2023-01-04] MEDS: Senna/Docusate Sodium 1 Tablet 2 TABLET PO (07:58)
[2023-01-04] MEDS: Acetaminophen 325 MG Tablet 650 MG PO (07:58)
[2023-01-04] MEDS: Multivitamins,Ther W-Minerals Tablet 1 TABLET PO (07:58)
[2023-01-04] MEDS: Enoxaparin 60 MG/0.6 ML Syringe SC (07:58)
[2023-01-04] MEDS: Thiamine Hydrochloride 100 MG Tablet PO (07:58)
[2023-01-04] MEDS: Creon 24,000 unit DR Capsule 1 CAP PO ×2 (07:59→11:55)
[2023-01-04] MEDS: Lisinopril 20 MG Tablet PO (07:59)
[2023-01-04] MEDS: amLODIPine 5 MG Tablet PO (07:59)
--- NOTE | 2023-01-04 08:04 | PN.HOSP_ITS ---
Reason for Visit Reason for Visit: Diagnoses Other elevated white blood cell count (01/03/23) Elevated white blood cell count, unspecified (01/03/23) Acute embolism and thrombosis of unspecified vein (01/03/23) Acute infarction of intestine, part and extent unspecified (01/03/23) Alcohol induced acute pancreatitis without necrosis or infection (01/03/23) Right upper quadrant pain (01/03/23) Unspecified abdominal pain (01/03/23) Elevation of levels of liver transaminase levels (01/03/23) Abnormal findings on diagnostic imaging of other parts of digestive tract (01/03/23) Subjective Subjective Worsening abdominal pain today and worse after taking oxycodone. No BM in 5-6 days. Objective Data Objective Data Vital Signs: Vital Signs Temp Pulse Resp BP Pulse Ox O2 Del Method 36.7 C 69 18 115/79 99 Room Air 01/04/23 07:47 01/04/23 07:47 01/04/23 07:47 01/04/23 07:47 01/04/23 07:47 01/04/23 07:47 Oxygen Delivery Method Room Air Weight: 57.1 kg Body Mass Index (BMI) 21.4 Intake & Output: Intake and Output for Last 24 Hours 01/02/23 01/03/23 01/04/23 23:59 23:59 23:59 Intake Total 4295.00 / 4295.00 3625.41 / 3625.41 2497.92 / 2497.92 Output Total 800 / 800 Balance 4295.00 / 3895.00 2825.41 / 2825.41 2497.92 / 2497.92 Lab / Micro Data 01/04/23 05:30 01/04/23 05:30 Labs: Laboratory Results - last 24 hr 01/04/23 05:30: WBC 4.7, RBC 3.36 L, Hgb 11.2 L, Hct 33.4 L, MCV 99.4 H, MCH 33.3 H, MCHC 33.5 D, RDW Std Deviation 48.1 H, RDW Coeff of Frankie 13.2, Plt Count 407, MPV 10.2, Immature Gran % (Auto) 0.400, Neut % (Auto) 78.6 H, Lymph % (Auto) 17.8 L, Gray % (Auto) 2.8, Eos % (Auto) 0.0, Baso % (Auto) 0.4, Absolute Neuts (auto) 3.7, Absolute Lymphs (auto) 0.83, Nucleated RBC % 0, Sodium 138, Potassium 3.8, Chloride 109 H, Carbon Dioxide 25.0, Anion Gap 4 L, BUN 8, Creatinine 0.64, Estim Creat Clear Calc 97.87, Est GFR (MDRD) Af Amer 129, Est GFR (MDRD) Non-Af 106, BUN/Creatinine Ratio 12.4, Glucose 231 H, Calcium 8.5, Total Bilirubin 0.20, AST 19, ALT 24, Alkaline Phosphatase 126 H, Total Protein 6.0 L, Albumin 2.5 L, Globulin 3.5, Albumin/Globulin Ratio 0.7 L Radiography Diagnostic Testing: Radiology Impression Endo Retro Cholangiopancreatogram 01/03/23 17:15 IMPRESSION: Fluoroscopic guided ERCP. Electronically Signed: Jake Garland MD at 19:03 EDT , Physical Exam Const alert and no apparent distress HEENT head/scalp atraumatic Resp normal respiratory effort, no retractions, no use of accessory muscles and clear to auscultation bilaterally Cardio regular rate, regular rhythm, S1 normal heart sound and S2 normal heart sound GI normal to inspection, nondistended, normoactive bowel sounds GI Narrative: upper abdominal tenderness. No masses. Extremity normal to inspection Assessment & Plan Assessment/Plan (1) Abdominal pain: QUALIFIERS: Abdominal location: right upper quadrant Qualified Code(s): R10.11 - Right upper quadrant pain PLAN: 2/2 biliary sludge Recurrent abdominal pain, worsening with recent choledocholithiasis requiring stent placement: Data: * Recent MRCP with concern for worsening mass effect of the distal common bile duct with increasing biliary dilatation with noted nodular thickening of the ampulla * follow-up ERCP with removal of common bile duct stones with biliary sphincterotomy with dilatation of the common bile duct and temporary stent placement * CT showed Dilated common bile duct measuring 1.5 cm in diameter, increased as compared to 12/17/2022 CT. Common bile duct stent appears stable. Newly visualized intrahepatic duct dilation and pneumobilia. Findings are concerning for a worsening distal common duct obstruction. Distended gallbladder with no evidence of cholecystitis. Splenic varices likely representing portal venous hypertension. GI consulted. ERCP 01/03 biliary sphincterotomy performed with biliary tree was swept and sludge removed. General surgery consult. No plans for cholecystectomy at this time. Continue IVF, pain control and antiemetics. 01/04: abdominal pain worse. Clinically appears stable. DW pt about addressing constipation. If has a decent BM and still has abdominal pain, will check a CT. Pt agreable. PLAN: Plan Chronic complicating conditions: * Hx EtOH Abuse with history of pancreatitis and alcoholic hepatitis: Patient prior with routine consumption of 4 vodka type drinks daily, EtOH level currently unremarkable and notes sober x 2 weeks. Encouraged continued sobriety. MVI, thiamine and folic acid. Case management consulted. * Portal vein thrombosis: Following w/ Dr. Urena, from most recent records had been on lovenox 90 mg daily with 12/01/22 CTA with patent portal vein thus lovenox decreased to 60 mg daily. * Hypertension: Continue home regimen including lisinopril, amlodipine, PRN hydralazine. * Hyperlipidemia: Not on regimen, given chronic issues with alcoholic hepatitis deferred. * Tobacco Abuse: Encouraged cessation, inpatient consultation per RT, NR if desired. * GERD: Continue patient on PPI. DVT prophylaxis: Continue lovenox 60 mg SC daily. Charges/Coding Visit Charges Inpatient E&M: 65601 Subs Hosp L2
[2023-01-04] MEDS: Mag Hydrox/Al Hydrox/Simeth 30 ML UDC PO (09:53)
[2023-01-04] MEDS: 0.9% Saline Lock 10 ML Syringe IV (09:53)
--- NOTE | 2023-01-04 10:12 | CASEMGMT ---
VIVIEN LYON Readmission Note Previous Admission:? 12/14/22-12/21/22 Diagnosis:? pancreatitis DC Disposition: Home Current Admission? Current Diagnosis: abd pain Pt with MRCP, ERCP with stent on last admission and dc'd home. Pt presented to ER on 12/29 with recurrent pain. Pt liver enzymes were downtrending so pt was dc'd home. Pt then represented to the ER on 01/02 with persistent pain and was admitted. GI consulted, pt had ERCP on 01/03. General surgery was consulted with no plans for a choleycystecomy. Pt being managed with IVF, pain control and antiemetics. VIVIEN LYON into pt room, pt up indep and seen prior ambulating halls. Pt reports she has been taking her medications as ordered. She is scheduled for an appt with on 05/26 which is the soonest she could get in. Pt states she does see regularly. Pt has not chosen a PCP yet, states she does not have insurance and she is going through a lawsuit and has not chosen a PCP. Pt denies any need for help with this. Pt reports being sober since 12/13/22. She declines the need to speak with a SW regarding this or for any resources. She states she already has them. Pt denies any homegoing needs. VIVIEN LYON to follow. DC Plan: Home?
[2023-01-04 10:21] LABS: Lipase 26 U/L (13-75)
[2023-01-04] MEDS: Magnesium Citrate 300 ML PO (11:55)
--- NOTE | 2023-01-04 13:49 | NURSING ---
pt resting in bed, rubbing abdomen, states no bm yet . pt states Dr. Salamanca was in and said i can be discharged today, he will be getting ahold of a pancreatic specialist in [place] that he wants me to see. informed pt said nurse has po pain medication for her since she had called out requesting pain medication. med scanned and handed to pt in med cup- pt places cup on bedside table and pt states well I want the dilaudid too. informed pt that since she is taking po diet, po pain meds need to be given first as per order and Dilaudid is for BTP. pt becomes argumentative with said nurse. nurse informs pt that said nurse will not argue with pt about MAR and if patient is refusing medicaiton, then I need med cup back with meds so it can be wasted. pt agrees to hand med cup back to nurse, pt states you need to notify the doctor. informed pt Md will be notified and updated regarding pt request and refusal of po pain medication.
--- NOTE | 2023-01-04 14:03 | NURSING ---
pt updated on orders- states she would like her IV removed. Saline lock dc'd.
--- NOTE | 2023-01-04 14:08 | PCM.DC ---
Discharge Instructions Diet Discharge Diet: No restrictions Follow Up Care Test Results: Test results from this visit will be discussed in further detail at your follow-up appointment, if applicable. Discharge Plan Admission Admit Date/Time: 01/03/23 13:33 Primary Reason for Your Visit: biliary stricture. Attending Provider: Sal Cassidy Primary Care Provider: Care Physician,No Primary Consulting Providers: Caty Flynn; Kunal Alas Additional Instructions / Restrictions: You had a biliary duct stricture. Dr. Salamanca has recommended you follow up with gastroenterology up in [place] for further evaluation. Discharge Orders/Prescriptions Prescriptions: New dicyclomine 20 mg tablet 20 mg PO TID PRN (Reason: abdominal pain) Qty: 20 0RF hydromorphone 2 mg tablet 2 mg PO Q4H PRN (Reason: pain) 3 Days Qty: 18 0RF Continued enoxaparin [Lovenox] 100 mg/mL syringe 60 mg subcut Q24H acetaminophen [Acetaminophen Extra Strength] 500 mg tablet 500 mg PO Q6H PRN (Reason: pain) sennosides-docusate sodium [Stool Softener-Stimulant Laxat] 8.6-50 mg Tablet 2 tab PO BID PRN (Reason: constipation) Creon 24,000-76,000 -120,000 unit capsule,delayed release(DR/EC) 1 cap PO TID lisinopril 20 mg Tablet 20 mg PO DAILY Qty: 30 0RF amlodipine 5 mg Tablet 5 mg PO DAILY Qty: 30 0RF ondansetron 4 mg tablet,disintegrating 4 mg PO Q8H PRN PRN (Reason: Nausea) Qty: 10 0RF omeprazole 20 mg capsule,delayed release(DR/EC) 20 mg PO DAILY Qty: 30 2RF Referrals / Follow Up: [facility] [Provider Group] - Within 2 Weeks Care Physician,No Primary [Primary Care Provider] - Disposition Disposition (needs filled in before D/C Order can be placed): Against Medical Advice
--- NOTE | 2023-01-04 14:22 | DS.PCM_ITS ---
Providers Date of Admission: 01/03/23 Primary Care Physician: No Primary Care Phys Consultations 01/02/23 07:19 Consult: Gastroenterology Routine Consulting Provider: [facility] Reason for Consult: Recurrent abd pain, recent CBD stent EMERGENT Consult: No Notified: Yes Date Notified: 01/02/23 Time Notified: 06:17 Method of Notification: ED Physician Initiated 01/02/23 09:41 Consult: General Surgery Routine Consulting Provider: Kunal Alas Reason for Consult: choledocholithiasis EMERGENT Consult: No Notified: Yes Date Notified: 01/02/23 Time Notified: 09:41 Method of Notification: Text Reason For Visit: ABDOMINAL PAIN Diagnosis Discharge Diagnosis (1) Abdominal pain: Status: Acute Code(s): R10.9 - Unspecified abdominal pain Qualifiers: Abdominal location: right upper quadrant Qualified Code(s): R10.11 - Right upper quadrant pain Plan: 2/2 biliary sludge Recurrent abdominal pain, worsening with recent choledocholithiasis requiring stent placement: Data: * Recent MRCP with concern for worsening mass effect of the distal common bile duct with increasing biliary dilatation with noted nodular thickening of the ampulla * follow-up ERCP with removal of common bile duct stones with biliary sphinctero ryan with dilatation of the common bile duct and temporary stent placement * CT showed Dilated common bile duct measuring 1.5 cm in diameter, increased as compared to 12/17/2022 CT. Common bile duct stent appears stable. Newly visualized intrahepatic duct dilation and pneumobilia. Findings are concerning for a worsening distal common duct obstruction. Distended gallbladder with no evidence of cholecystitis. Splenic varices likely representing portal venous hypertension. GI consulted. ERCP 01/03 biliary sphincterotomy performed with biliary tree was swept and sludge removed. General surgery consult. No plans for cholecystectomy at this time. Continue IVF, pain control and antiemetics. 01/04: abdominal pain worse. Clinically appears stable. DW pt about addressing constipation. If has a decent BM and still has abdominal pain, will check a CT. Pt agreable. Pt was seen by Dr. Salamanca who advised discharge and follow up with gastroenterology in [place]. Pt informed nursing that she did not any oxygocode, but just IV hydromorphone, but wanted to be discharged. I discussed with Dr. Salamanca who saw and felt that she could go home as she has been eating and up and walking in her room. Pt was prescribe PRN hydromorphone and Bentyl. Before I could finish the discharge paperwork, she left AMA. Plan Chronic complicating conditions: * Hx EtOH Abuse with history of pancreatitis and alcoholic hepatitis: Patient prior with routine consumption of 4 vodka type drinks daily, EtOH level currently unremarkable and notes sober x 2 weeks. Encouraged continued sobriety. MVI, thiamine and folic acid. Case management consulted. * Portal vein thrombosis: Following w/ Dr. Urena, from most recent records had been on lovenox 90 mg daily with 12/01/22 CTA with patent portal vein thus lovenox decreased to 60 mg daily. * Hypertension: Continue home regimen including lisinopril, amlodipine, PRN hydralazine. * Hyperlipidemia: Not on regimen, given chronic issues with alcoholic hepatitis deferred. * Tobacco Abuse: Encouraged cessation, inpatient consultation per RT, NR if desired. * GERD: Continue patient on PPI. DVT prophylaxis: Continue lovenox 60 mg SC daily. Medications at Discharge Home Medications omeprazole 20 mg capsule,delayed release 20 mg PO DAILY ACIF REFLUX #30 caps 10/26/22 acetaminophen 500 mg tablet (Acetaminophen Extra Strength) 500 mg PO Q6H PRN pain 12/14/22 [id number] 24,000-76,000-120,000 unit capsule,delayed rel (Creon) 1 cap PO TID 12/14/22 sennosides 8.6 mg-docusate sodium 50 mg tablet (Stool Softener-Stimulant Laxative) 2 tab PO BID PRN constipation 12/14/22 amlodipine 5 mg tablet 5 mg PO DAILY #30 tabs 12/21/22 lisinopril 20 mg tablet 20 mg PO DAILY #30 tabs 12/21/22 enoxaparin 100 mg/mL subcutaneous syringe (Lovenox) 60 mg subcut Q24H 12/29/22 ondansetron 4 mg disintegrating tablet 4 mg PO Q8H PRN PRN Nausea #10 tabs 12/04 12/25 dicyclomine 20 mg tablet 20 mg PO TID PRN abdominal pain #20 tabs 01/04/23 hydromorphone 2 mg tablet 2 mg PO Q4H PRN pain 3 days #18 tabs 01/04/23 Hospital Course Operations None Procedures - (ERCP) Summary of Care Provided Minutes Spent on Discharge: 45 Weight / BMI Weight Weight: 57.1 kg Body Mass Index (BMI) 21.4 ABG / Lab / Microbiology Data 01/04/23 05:30 01/04/23 05:30 Laboratory: Laboratory Results - last 24 hr 01/04/23 05:30: WBC 4.7, RBC 3.36 L, Hgb 11.2 L, Hct 33.4 L, MCV 99.4 H, MCH 33.3 H, MCHC 33.5 D, RDW Std Deviation 48.1 H, RDW Coeff of Frankie 13.2, Plt Count 407, MPV 10.2, Immature Gran % (Auto) 0.400, Neut % (Auto) 78.6 H, Lymph % (Auto) 17.8 L, [place] % (Auto) 2.8, Eos % (Auto) 0.0, Baso % (Auto) 0.4, Absolute Neuts (auto) 3.7, Absolute Lymphs (auto) 0.83, Nucleated RBC % 0, Sodium 138, Potassium 3.8, Chloride 109 H, Carbon Dioxide 25.0, Anion Gap 4 L, BUN 8, Creatinine 0.64, Estim Creat Clear Calc 97.87, Est GFR (MDRD) Af Amer 129, Est GFR (MDRD) Non-Af 106, BUN/Creatinine Ratio 12.4, Glucose 231 H, Calcium 8.5, Total Bilirubin 0.20, AST 19, ALT 24, Alkaline Phosphatase 126 H, Total Protein 6.0 L, Albumin 2.5 L, Globulin 3.5, Albumin/Globulin Ratio 0.7 L, Lipase 26 Radiography Diagnostic Testing: Radiology Impression Endo Retro Cholangiopancreatogram 01/03/23 17:15 IMPRESSION: Fluoroscopic guided ERCP. Electronically Signed: Jake Garland MD at 19:03 EDT , D/C Instructions Discharge Diet: No restrictions Meaningful Use Info Meaningful Use Diagnoses (Choose all that apply): None applicable Discharge Plan Admission Admit Date/Time: 01/03/23 13:33 Primary Reason for Your Visit: biliary stricture. Attending Provider: Sal Cassidy Primary Care Provider: Care Physician,No Primary Consulting Providers: Caty Flynn; Kunal Alas Instructions Additional Instructions / Restrictions: You had a biliary duct stricture. Dr. Salamanca has recommended you follow up with gastroenterology up in [place] for further evaluation. Discharge Orders/Prescriptions Prescriptions: New dicyclomine 20 mg tablet 20 mg PO TID PRN (Reason: abdominal pain) Qty: 20 0RF hydromorphone 2 mg tablet 2 mg PO Q4H PRN (Reason: pain) 3 Days Qty: 18 0RF Continued enoxaparin [Lovenox] 100 mg/mL syringe 60 mg subcut Q24H acetaminophen [Acetaminophen Extra Strength] 500 mg tablet 500 mg PO Q6H PRN (Reason: pain) sennosides-docusate sodium [Stool Softener-Stimulant Laxat] 8.6-50 mg Tablet 2 tab PO BID PRN (Reason: constipation) Creon 24,000-76,000 -120,000 unit capsule,delayed release(DR/EC) 1 cap PO TID lisinopril 20 mg Tablet 20 mg PO DAILY Qty: 30 0RF amlodipine 5 mg Tablet 5 mg PO DAILY Qty: 30 0RF ondansetron 4 mg tablet,disintegrating 4 mg PO Q8H PRN PRN (Reason: Nausea) Qty: 10 0RF omeprazole 20 mg capsule,delayed release(DR/EC) 20 mg PO DAILY Qty: 30 2RF Referrals / Follow Up: [facility] [Provider Group] - Within 2 Weeks Care Physician,No Primary [Primary Care Provider] - Disposition Disposition (needs filled in before D/C Order can be placed): Against Medical Advice Charges/Coding Visit Charges Inpatient E&M: 44927 Disch Hosp >30min
--- NOTE | 2023-01-04 14:29 | PHA.DC.MR.R ---
Pharmacy [place] Med Reconciliation Pharmacy Service has performed discharge medication reconciliation for this patient. Patient argumentative with nursing, did not senior living sales counselor. The patient's discharge medication list was reviewed for discrepancies and discrepancies were resolved. Medications at Discharge Home Medications omeprazole 20 mg capsule,delayed release 20 mg PO DAILY ACIF REFLUX #30 caps 10/26/22 acetaminophen 500 mg tablet (Acetaminophen Extra Strength) 500 mg PO Q6H PRN pain 12/14/22 [id number] 24,000-76,000-120,000 unit capsule,delayed rel (Creon) 1 cap PO TID 12/14/22 sennosides 8.6 mg-docusate sodium 50 mg tablet (Stool Softener-Stimulant Laxative) 2 tab PO BID PRN constipation 12/14/22 amlodipine 5 mg tablet 5 mg PO DAILY #30 tabs 12/21/22 lisinopril 20 mg tablet 20 mg PO DAILY #30 tabs 12/21/22 enoxaparin 100 mg/mL subcutaneous syringe (Lovenox) 60 mg subcut Q24H 12/29/22 ondansetron 4 mg disintegrating tablet 4 mg PO Q8H PRN PRN Nausea #10 tabs 12/29/22 dicyclomine 20 mg tablet 20 mg PO TID PRN abdominal pain #20 tabs 01/04/23 hydromorphone 2 mg tablet 2 mg PO Q4H PRN pain 3 days #18 tabs 01/04/23
--- NOTE | 2023-01-04 14:33 | NURSING ---
1410: per PIPE CLEANER Mirna: pt called out and states she would like to see said nurse. informed PIPE CLEANER said nurse in with another pt and will be in as soon as able. Mirna called back to said nurse, states she informed pt that and pt states she wants to see you and sign the papers or she is walking out.' again informed Jahaira to let pt know said nurse is in providing care to another patient and when done, will be in to see the patient as she reqeuest.
== END 2023-01-04 14:22 | disposition left against medical advice (07) | DRG 438 ==
LOC: ED 06:27 → MS3 06:35
PROVIDERS: Internal Medicine Gastroenterology; Admitting Provider Family Medicine; Emergency Provider Emergency Medicine
PROC: 0FC98ZZ Extirpation of Matter from Common Bile Duct, Via Natural or Artificial Opening Endoscopic (ICD-10-PCS; CPT 43260; principal; 2023-01-03 15:40)
DX: K85.20 Alcohol induced acute pancreatitis without necrosis or infection (principal); I81 Portal vein thrombosis; K83.1 Obstruction of bile duct; K76.6 Portal hypertension; K70.10 Alcoholic hepatitis without ascites; K21.9 Gastro-esophageal reflux disease without esophagitis; K83.8 Other specified diseases of biliary tract; F17.210 Nicotine dependence, cigarettes, uncomplicated; D72.829 Elevated white blood cell count, unspecified; E78.5 Hyperlipidemia, unspecified; K75.9 Inflammatory liver disease, unspecified; Z82.5 Family history of asthma and other chronic lower respiratory diseases; Z79.01 Long term (current) use of anticoagulants
CPT/HCPCS: 36415; 74177; 74330; 76000; 76705; 80048; 80053; 80076; 82077; 83690; 85025; 88108; 88161; 88305; 88313; 94668; 99252; 99284; J7030; J7120; Q9967; A4216; G0463; J2405

== ENCOUNTER → 2023-01-23 | Outpatient (CLI) | payer SELFPAY ==
--- NOTE | 2023-01-23 07:57 | CT_ITS ---
EXAM: CT ANGIOGRAPHY ABDOMEN WITHOUT AND WITH INTRAVENOUS CONTRAST CLINICAL INDICATION: ABDOMINAL PAIN TECHNIQUE: Helically acquired angiography images of the abdomen without and with intravenous contrast. This CT exam was performed using one or more of the following dose reduction techniques: automated exposure control, adjustment of the mA and/or kV according to patient size, and/or use of iterative reconstruction technique. MIP reconstructed images were created and reviewed. CONTRAST: IV 100mL [id number] RADIATION DOSE: CTDIvol = 17.14 mGy, DLP = 221.99 mGy-cm COMPARISON: CT abdomen and pelvis with IV contrast 01/02/2023. FINDINGS: AORTA: Abdominal aorta: No aneurysm. Minimal calcified plaques. No demonstrated narrowing. No dissection. CELIAC TRUNK AND MESENTERIC ARTERIES: No demonstrated narrowing celiac artery, SMA and JEANINE. RENAL ARTERIES: Right and left renal arteries: No demonstrated narrowing. No aneurysm. ILIAC ARTERIES: Right and left common iliac arteries: Calcified plaques, more in the left common iliac artery. No demonstrated narrowing and no aneurysm. Right internal iliac artery: No demonstrated narrowing. No aneurysm. Left internal iliac artery: Mild stenosis of the origin. No aneurysm. Right and left proximal external iliac arteries: No demonstrated narrowing. No aneurysm. LOWER THORAX: Unremarkable. Lung bases are clear. No cardiomegaly. No significant pericardial effusion. LIVER: Unremarkable. Homogeneous. No focal mass. GALLBLADDER AND BILE DUCTS: Unremarkable. No calcified gallstones. No gallbladder distention or wall edema. Plastic stent extending from the common hepatic back down to the duodenum is unchanged. Interval resolution of pneumobilia and the mild intrahepatic biliary ductal dilatation. PANCREAS: Unremarkable. No focal cystic or solid mass. SPLEEN: Unremarkable. Normal size without focal cystic or solid mass. ADRENALS: Unremarkable. No nodules. KIDNEYS AND URETERS: Unremarkable. Normal renal size and position. No hydronephrosis. STOMACH AND BOWEL: Unremarkable. No stomach or bowel distention. No focal inflammatory change. INTRAPERITONEAL SPACE: Unremarkable. No ascites or other fluid collection. No free air. BONES/JOINTS: Unremarkable. No suspicious lytic or blastic abnormality. SOFT TISSUES: Unremarkable. No discrete abdominal or pelvic wall hernia. LYMPH NODES: No enlarged lymph nodes. OTHER FINDINGS: Plastic stent in the common hepatic duct down to the duodenum is unchanged. CT/CTA Abdomen W/WO Contrast IMPRESSION: 1. No abdominal aortic aneurysm or dissection. 2. No significant vaso-occlusive disease of the celiac artery and its branches, SMA, JEANINE, bilateral renal arteries, bilateral common iliac arteries and the bilateral proximal external iliac arteries. 3. No suspicious acute abnormality in the abdomen. 4. Interval resolution of pneumobilia and mild intrahepatic biliary ductal dilatation. 5. Plastic stent extending from the common hepatic duct down to the duodenum is unchanged. Electronically Signed: Baron Sanchez MD at 11:15 EDT ,
== END | disposition home or self-care (01) ==
PROVIDERS: Referring Provider Internal Medicine Medical Oncology; Visit Provider Internal Medicine Medical Oncology
DX: R10.11 Right upper quadrant pain (principal)
CPT/HCPCS: 74175; Q9967; A4216

== ENCOUNTER 2023-02-22 12:40 | Emergency (ER) | payer MEDICAID, SELFPAY ==
[2023-02-22 12:41] VITALS: BP 162/106; PULSE 92; RESP 18; TEMP 36.2; O2SAT 100
[2023-02-22 12:46] VITALS: BMI 22.4
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
--- NOTE | 2023-02-22 13:08 | CT_ITS ---
STUDY: CT ABDOMEN AND PELVIS WITH CONTRAST REASON FOR EXAM: Female, 42 years old. Epigastric abdominal pain. History of biliary stent. History of pancreatitis and ethanol abuse. RADIATION DOSAGE (If Supplied By Facility): CTDIvol = ( 11.84 ) mGy, DLP = ( 351.56 ) mGycm TECHNIQUE: Transaxial images were obtained from the dome of the diaphragm to the symphysis pubis without oral contrast. IV 100mL Isovue-300 was administered. Sagittal and coronal images were reconstructed. Individualized dose optimization techniques were used for this CT. COMPARISON: Comparison is made with prior study dated January 02, 2023. FINDINGS: Stable minimal increased markings at the lung bases suggestive of a atelectasis. The visualized portions of the heart are within normal limits. Normal liver. Minimally dilated central intrahepatic biliary ducts. This has improved as compared to prior study. A common bile duct stent is seen. Normal spleen. Normal pancreas. Normal bilateral adrenal glands. Normal right kidney. Normal left kidney. Diffuse thickening of the stomach wall along the lesser and greater curvatures most likely secondary to lack of oral contrast although gastritis should be ruled out if clinically indicated. Normal small intestine. Normal colon. The appendix is visualized and appears normal. Normal abdominal aorta. Normal inferior vena cava. Normal retroperitoneum. Normal urinary bladder. Normal abdominal wall. Normal osseous structures. CT/Abdomen/Pelvis W IV Cont ONLY IMPRESSION: Stable appearance of the stent in the common bile duct with minimally dilated central intrahepatic ducts. This has improved as compared to prior study. Electronically Signed: Christos Krause MD at 14:02 EDT ,
--- NOTE | 2023-02-22 13:09 | US_ITS ---
STUDY: ABDOMINAL ULTRASOUND - RIGHT UPPER QUADRANT REASON FOR VISIT: Female, 42 years old RUQ TTP TECHNIQUE: Ultrasound evaluation of the right upper quadrant was performed with real-time and static wright-scale imaging. TECHNICAL QUALITY: Adequate. COMPARISON: Comparison is made with prior ultrasound of the right upper quadrant dated January 02, [address] scan of pelvis done earlier in the day. FINDINGS: Liver: The liver measures 14 cm. There is normal echogenicity of the liver. Minimally dilated central intrahepatic biliary ducts. There is hepatic color flow. The direction of portal flow is hepatopetal. There is no demonstrated mass lesion. Gallbladder: Normal distended gallbladder. The gallbladder wall measures 2.6 mm. There is a negative sonographic Lindsay''s sign. There is no pericholecystic fluid. There are no gallstones. Sludge is seen within the gallbladder lumen. Common Bile Duct (C.B.D.): The common bile duct measures 1 mm. Pancreas: Normal size of the head, body and tail of the pancreas. There is normal echogenicity of the pancreas. There is no demonstrated pancreatic mass or cyst. The pancreatic duct is slightly dilated measuring 3.8 mm. Right Kidney: Normal size of the right kidney. The right kidney measures 10.3 cm x 5 cm x 5.3 cm. Normal renal cortex. The right cortex measures 1.3 cm. There is no demonstrated renal mass or cyst. There is no right hydronephrosis. US/Gallbladder IMPRESSION: A stent is seen within the common bile duct. Minimally dilated central intrahepatic biliary ducts. Sludge is seen within the gallbladder lumen. Electronically Signed: Christos Krause MD at 15:09 EDT ,
[2023-02-22] MEDS: Ondansetron 4 MG/2 ML Vial IV (13:17)
[2023-02-22] MEDS: Ketorolac 15 MG/ML Vial IV (13:17)
[2023-02-22] MEDS: Morphine 4 MG/ML Syringe IV (13:18)
[2023-02-22 13:20] LABS: Absolute Lymphocyte Count 2.37 X10^3/uL (0.83-4.51); Absolute Neutrophil Count 6.3 X10^3/uL (2.0-7.7); Basophil# 0.06 X10^3/uL; Basophil% 0.6 % (0-1); Eosinophil# 0.19 X10^3/uL; Eosinophils% 1.9 % (0-5); Hematocrit 39.7 % (37-47); Hemoglobin 13.1 g/dL (12.0-15.0); Lymphocyte # 2.37 X10^3/ul (0.83-4.51); Lymphocyte % 24.3 % (19-41); Mean Corpuscular Hgb 31.3 pg (27.0-32.0); Mean Corpuscular Volume 94.7 fL (81-99); Monocyte# 0.76 X10^3/uL; Monocyte% 7.8 % (0-10); NRBC Flagged by Analyzer 0 % (0-5); Neutrophil # 6.34 X10^3/uL (2.7-7.7); Neutrophil % 65.1 % (47-70); Platelet Count 366 K/mm3 (150-450); RBC Distribution Width CV 13.8 % (11.6-14.6); Red Blood Count 4.19 M/mm3 (4.2-5.4); White Blood Count 9.8 K/mm3 (4.4-11.0)
[2023-02-22 13:38] LABS: AST(SGOT) 14 U/L (15-37); Alanine Aminotransfer ALT/SGPT 24 U/L (13-56); Albumin, Serum 3.8 g/dL (3.2-5.0); Alkaline Phosphatase 93 U/L (45-117); Anion Gap 5 (5-15); BUN 14 mg/dL (7-18); BUN/Creat Ratio 17.6 RATIO (10-20); Bilirubin, Direct 0.08 mg/dL (0.00-0.30); Calcium,Total 9.2 mg/dL (8.5-10.1); Chloride 103 mmol/L (98-107); Creatinine, Serum 0.79 mg/dL (0.55-1.02); EST Glomerular Filtration Rate 84 mL/min (>60); Est Glom Filt Rate - Afr Amer 101 mL/min (>60); Estimated Creatinine Clearance 79.29 ml/min; Globulin 3.8 g/dL (2.2-4.2); Glucose 116 mg/dL (74-106); Lipase 27 U/L (13-75); Potassium 3.9 mmol/L (3.5-5.1); Protein, Total 7.6 g/dL (6.4-8.2); Sodium Level 135 mmol/L (136-145)
[2023-02-22 13:57] LABS: Color, Urine Yellow (Yellow); Glucose, Dipstick Normal (Normal); Ketone-Dipstick Negative (Negative); Leukocyte Esterase-Dipstick 25 /ul (Negative); Nitrite-Dipstick Negative (Negative); Occult Blood-Urine Negative /ul (Negative); Protein-Dipstick Negative (Negative); Urine Bilirubin Dipstick Negative (Negative); Urine Clarity Clear (Clear); Urine Urobilinogen Normal (Normal)
[2023-02-22 14:05] LABS: Internal QC Validated? YES +Cl - CLEAR BKGD; Pregnancy, Urine Negative Negative
[2023-02-22 14:41] VITALS: PULSE 72; RESP 16
[2023-02-22 15:36] VITALS: RESP 16
== END 2023-02-22 15:37 | disposition home or self-care (01) ==
PROVIDERS: Emergency Provider Emergency Medicine; Visit Provider Emergency Medicine
DX: R10.13 Epigastric pain (principal); R11.0 Nausea; I10 Essential (primary) hypertension; F17.210 Nicotine dependence, cigarettes, uncomplicated
CPT/HCPCS: 74177; 76705; 80048; 80076; 81002; 81025; 83690; 85025; 96374; 96375; 99283; J7030; Q9967; A4216; J2405

== ENCOUNTER 2023-04-11 02:58 | Emergency (ER) | payer MEDICAID, SELFPAY ==
[2023-04-11 02:59] VITALS: BP 173/103; PULSE 108; RESP 18; O2SAT 100
[2023-04-11 03:00] VITALS: BP 170/106; PULSE 99; RESP 12; TEMP 36.3; O2SAT 99; BMI 24.0
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
[2023-04-11 03:39] LABS: Absolute Lymphocyte Count 2.23 X10^3/uL (0.83-4.51); Absolute Neutrophil Count 5.4 X10^3/uL (2.0-7.7); Basophil# 0.03 X10^3/uL; Basophil% 0.4 % (0-1); Eosinophil# 0.18 X10^3/uL; Eosinophils% 2.1 % (0-5); Hematocrit 38.8 % (37-47); Hemoglobin 12.8 g/dL (12.0-15.0); Lymphocyte # 2.23 X10^3/ul (0.83-4.51); Mean Corpuscular Hgb 30.5 pg (27.0-32.0); Mean Corpuscular Volume 92.6 fL (81-99); Mean Platelet Vol. 9.5 fl (6.2-12.0); Monocyte# 0.66 X10^3/uL; Monocyte% 7.7 % (0-10); NRBC Flagged by Analyzer 0 % (0-5); Neutrophil # 5.42 X10^3/uL (2.7-7.7); Neutrophil % 63.2 % (47-70); Platelet Count 327 K/mm3 (150-450); RBC Distribution Width CV 14.3 % (11.6-14.6); RBC Distribution Width SD 48.4 fl (35.1-43.9); Red Blood Count 4.19 M/mm3 (4.2-5.4); White Blood Count 8.6 K/mm3 (4.4-11.0)
[2023-04-11] MEDS: 0.9% Normal Saline (1000mL) 1,000 ML 125 ML IV (03:42)
[2023-04-11] MEDS: HYDROmorphone 1 MG/ML Syringe IV ×2 (03:43→05:01)
[2023-04-11] MEDS: Ondansetron 4 MG/2 ML Vial IV (03:43)
[2023-04-11 04:17] LABS: Alcohol, Blood (Medical)-Serum < 3.0 mg/dL; Internal QC Validated? YES +Cl - CLEAR BKGD; Pregnancy, Serum, hCG Quali. NEGATIVE Negative
[2023-04-11 04:35] LABS: AST(SGOT) 13 U/L (15-37); Alanine Aminotransfer ALT/SGPT 17 U/L (13-56); Albumin, Serum 3.3 g/dL (3.2-5.0); Alkaline Phosphatase 120 U/L (45-117); Anion Gap 5 (5-15); BUN 12 mg/dL (7-18); BUN/Creat Ratio 18.8 RATIO (10-20); Bilirubin, Direct 0.12 mg/dL (0.00-0.30); Calcium,Total 8.6 mg/dL (8.5-10.1); Chloride 105 mmol/L (98-107); Creatinine, Serum 0.64 mg/dL (0.55-1.02); EST Glomerular Filtration Rate 107 mL/min (>60); Est Glom Filt Rate - Afr Amer 130 mL/min (>60); Estimated Creatinine Clearance 97.87 ml/min; Globulin 3.7 g/dL (2.2-4.2); Glucose 98 mg/dL (74-106); Lipase 296 U/L (13-75); Potassium 3.1 mmol/L (3.5-5.1); Sodium Level 137 mmol/L (136-145)
[2023-04-11] MEDS: Potassium Chloride Oral Tablet 20 MEQ 40 MEQ PO (05:01)
[2023-04-11 05:04] VITALS: BP 148/98; PULSE 86; RESP 18; O2SAT 99
== END 2023-04-11 06:17 | disposition home or self-care (01) ==
PROVIDERS: Emergency Provider Emergency Medicine; Visit Provider Emergency Medicine
DX: K85.90 Acute pancreatitis without necrosis or infection, unspecified (principal); E87.6 Hypokalemia; F17.200 Nicotine dependence, unspecified, uncomplicated; I10 Essential (primary) hypertension; R10.9 Unspecified abdominal pain
CPT/HCPCS: 80048; 80076; 82077; 83690; 84703; 85025; 96361; 96374; 96375; 96376; 99283; J7030; A4216; J2405

== ENCOUNTER 2023-05-09 14:33 | Emergency (ER) | payer MEDICAID, SELFPAY ==
[2023-05-09 14:34] VITALS: BP 174/108; PULSE 113; RESP 20; TEMP 37.2; O2SAT 100; BMI 24.1
[2023-05-09 14:56] LABS: Absolute Lymphocyte Count 2.68 X10^3/uL (0.83-4.51); Absolute Neutrophil Count 11.1 X10^3/uL (2.0-7.7); Basophil# 0.02 X10^3/uL; Basophil% 0.1 % (0-1); Eosinophil# 0.03 X10^3/uL; Eosinophils% 0.2 % (0-5); Hematocrit 39.7 % (37-47); Hemoglobin 13.3 g/dL (12.0-15.0); Lymphocyte # 2.68 X10^3/ul (0.83-4.51); Lymphocyte % 18.1 % (19-41); Mean Corp Hgb Conc 33.5 g/dL (32-36); Mean Corpuscular Hgb 30.9 pg (27.0-32.0); Mean Corpuscular Volume 92.3 fL (81-99); Mean Platelet Vol. 9.3 fl (6.2-12.0); Monocyte# 0.89 X10^3/uL; NRBC Flagged by Analyzer 0 % (0-5); Neutrophil # 11.11 X10^3/uL (2.7-7.7); Neutrophil % 75.3 % (47-70); Platelet Count 299 K/mm3 (150-450); RBC Distribution Width CV 14.1 % (11.6-14.6); RBC Distribution Width SD 47.3 fl (35.1-43.9); White Blood Count 14.8 K/mm3 (4.4-11.0)
--- NOTE | 2023-05-09 14:58 | CT_ITS ---
STUDY: CT ABDOMEN AND PELVIS WITH CONTRAST REASON FOR EXAM: Female, 42 years old. ruq pain. Recent bile duct stent placement. History of portal vein thrombosis. RADIATION DOSAGE (If Supplied By Facility): CTDIvol = ( 11.45 ) mGy, DLP = ( 327.50 ) mGycm TECHNIQUE: Transaxial images were obtained from the dome of the diaphragm to the symphysis pubis without oral contrast. IV 100mL Isovue-300 was administered. Sagittal and coronal images were reconstructed. Individualized dose optimization techniques were used for this CT. COMPARISON: Comparison is made with prior study dated February 22, 2023. FINDINGS: Pectus excavatum deformity. Stable minimal degree of increased markings at the lung bases suggestive of mild linear atelectasis and/or scarring. The visualized portions of the heart are within normal limits. Pneumobilia is seen in the intrahepatic biliary ducts in keeping with the recent placement of a biliary stent. A biliary stent is seen within the common bile duct. The distal portion is in the second portion of the duodenum. The proximal portion is in the proximal portion of extrahepatic the common bile duct Normal gallbladder and extrahepatic biliary system. Normal spleen. Normal pancreas. Normal bilateral adrenal glands. Normal right kidney. Normal left kidney. Normal visualized stomach. Normal small intestine. Normal colon. The appendix is visualized and appears normal. There is scattered atherosclerotic calcification of the abdominal aorta, without a demonstrated aneurysm. Normal inferior vena cava. Normal retroperitoneum. Normal urinary bladder. Normal abdominal wall. Normal osseous structures. CT/Abdomen/Pelvis W IV Cont ONLY IMPRESSION: Biliary stent is seen with the distal tip in the second portion of the duodenum and the proximal portion within the proximal portion of the common bile duct. Questionable distal migration of the stent. Electronically Signed: Christos Krause MD at 15:38 EST ,
[2023-05-09] MEDS: Ondansetron 4 MG/2 ML Vial IV (15:07)
[2023-05-09] MEDS: Morphine 4 MG/ML Syringe IV ×2 (15:08→15:42)
[2023-05-09 15:13] LABS: AST(SGOT) 10 U/L (15-37); Alanine Aminotransfer ALT/SGPT 21 U/L (13-56); Albumin, Serum 3.5 g/dL (3.2-5.0); Alkaline Phosphatase 122 U/L (45-117); Anion Gap 5 (5-15); BUN 12 mg/dL (7-18); BUN/Creat Ratio 12.6 RATIO (10-20); Bilirubin, Direct 0.09 mg/dL (0.00-0.30); Calcium,Total 8.7 mg/dL (8.5-10.1); Chloride 106 mmol/L (98-107); Creatinine, Serum 0.95 mg/dL (0.55-1.02); EST Glomerular Filtration Rate 68 mL/min (>60); Est Glom Filt Rate - Afr Amer 82 mL/min (>60); Estimated Creatinine Clearance 65.94 ml/min; Globulin 3.7 g/dL (2.2-4.2); Glucose 121 mg/dL (74-106); Lipase 72 U/L (13-75); Potassium 3.4 mmol/L (3.5-5.1); Protein, Total 7.2 g/dL (6.4-8.2); Sodium Level 139 mmol/L (136-145)
[2023-05-09 15:14] VITALS: BP 165/100; PULSE 93; RESP 16; TEMP 37.3; O2SAT 98
[2023-05-09 15:16] LABS: International Normalized Ratio 0.9; Prothrombin Time (Protime)PT. 12.4 SECONDS (11.7-14.9)
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
[2023-05-09 17:00] LABS: Alcohol, Blood (Medical)-Serum < 3.0 mg/dL
[2023-05-09 17:05] VITALS: BP 168/107; PULSE 85; RESP 18; O2SAT 99
--- NOTE | 2023-05-09 17:30 | NURSING ---
CALL JUAN, ETA IS 2 HRS
[2023-05-09] MEDS: HYDROmorphone 0.5 MG/0.5 ML SYRINGE IV (18:15)
[2023-05-09 19:30] VITALS: BP 183/100; PULSE 103; RESP 18; O2SAT 98
== END 2023-05-09 20:01 | disposition short-term general hospital (02) ==
LOC: ED 15:28
PROVIDERS: Emergency Provider Student in an Organized Health Care Education/Training Program; Referring Provider Student in an Organized Health Care Education/Training Program; Visit Provider Student in an Organized Health Care Education/Training Program
DX: R10.9 Unspecified abdominal pain (principal); I10 Essential (primary) hypertension; F17.200 Nicotine dependence, unspecified, uncomplicated; D72.829 Elevated white blood cell count, unspecified; G89.18 Other acute postprocedural pain
CPT/HCPCS: 74177; 80048; 80076; 82077; 83690; 85025; 85610; 96374; 96375; 96376; 99284; J7030; Q9967; A4216; J2405

== ENCOUNTER 2023-05-29 19:01 | Emergency (ER) | payer MEDICAID, SELFPAY ==
[2023-05-29 19:03] VITALS: BP 125/86; PULSE 117; RESP 16; TEMP 36.4; O2SAT 100; BMI 23.5
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
[2023-05-29] MEDS: Ondansetron 4 MG/2 ML Vial IV (19:30)
[2023-05-29] MEDS: Lidocaine/Epi/Tetracaine 50 ML 1 APPLIC TOPICAL (19:31)
[2023-05-29] MEDS: morphine 8 MG/ML Syringe IV (19:32)
[2023-05-29 19:42] LABS: Absolute Lymphocyte Count 1.91 X10^3/uL (0.83-4.51); Absolute Neutrophil Count 4.7 X10^3/uL (2.0-7.7); Basophil# 0.03 X10^3/uL; Basophil% 0.4 % (0-1); Eosinophil# 0.18 X10^3/uL; Eosinophils% 2.4 % (0-5); Hematocrit 36.8 % (37-47); Hemoglobin 12.4 g/dL (12.0-15.0); Lymphocyte # 1.91 X10^3/ul (0.83-4.51); Lymphocyte % 25.4 % (19-41); Mean Corp Hgb Conc 33.7 g/dL (32-36); Mean Corpuscular Hgb 30.8 pg (27.0-32.0); Mean Corpuscular Volume 91.3 fL (81-99); Mean Platelet Vol. 9.7 fl (6.2-12.0); Monocyte# 0.66 X10^3/uL; Monocyte% 8.8 % (0-10); NRBC Flagged by Analyzer 0 % (0-5); Neutrophil # 4.71 X10^3/uL (2.7-7.7); Neutrophil % 62.7 % (47-70); Platelet Count 478 K/mm3 (150-450); RBC Distribution Width CV 13.5 % (11.6-14.6); RBC Distribution Width SD 45.7 fl (35.1-43.9); Red Blood Count 4.03 M/mm3 (4.2-5.4); White Blood Count 7.5 K/mm3 (4.4-11.0)
[2023-05-29] MEDS: Ampicillin/Sulbactam 3 GM in 0.9% Normal Saline (100mL MB+) 100 ML IV (19:59)
[2023-05-29 20:05] LABS: Anion Gap 5 (5-15); BUN 10 mg/dL (7-18); BUN/Creat Ratio 11.3 RATIO (10-20); Calcium,Total 9.5 mg/dL (8.5-10.1); Chloride 107 mmol/L (98-107); Creatinine, Serum 0.89 mg/dL (0.55-1.02); EST Glomerular Filtration Rate 74 mL/min (>60); Est Glom Filt Rate - Afr Amer 89 mL/min (>60); Estimated Creatinine Clearance 70.38 ml/min; Glucose 120 mg/dL (74-106); Potassium 3.7 mmol/L (3.5-5.1); Sodium Level 138 mmol/L (136-145)
[2023-05-29 20:12] LABS: Lipase 24 U/L (13-75)
[2023-05-29] MEDS: morphine 8 MG/ML Syringe 6 MG IV (21:14)
[2023-05-29 21:25] VITALS: BP 136/85; PULSE 98; RESP 22; O2SAT 100
== END 2023-05-29 21:26 | disposition home or self-care (01) ==
PROVIDERS: Emergency Provider Emergency Medicine; Visit Provider Emergency Medicine
DX: N61.1 Abscess of the breast and nipple (principal); Z82.5 Family history of asthma and other chronic lower respiratory diseases; N64.4 Mastodynia; I10 Essential (primary) hypertension; F17.200 Nicotine dependence, unspecified, uncomplicated; G89.29 Other chronic pain; R10.9 Unspecified abdominal pain
CPT/HCPCS: 10060; 80048; 83690; 85025; 96365; 96366; 96375; 96376; 99284; J7040; A4216; J0295; J2405

== ENCOUNTER → 2023-08-09 | Outpatient (CLI) | payer MEDICAID, SELFPAY ==
[2023-08-09 17:12] LABS: Amphetamine Urine VISTA POSITIVE (<1000 ng/mL); Barbiturate Urine VISTA NEGATIVE (< 200 ng/mL); Benzodiazepine Urine VISTA NEGATIVE (< 200 ng/mL); Cocaine Urine VISTA NEGATIVE (< 300 ng/mL); Ecstacy Urine VISTA NEGATIVE (< 500 ng/mL); Methadone Urine VISTA NEGATIVE (< 300 ng/mL); PCP Urine VISTA NEGATIVE (< 25 ng/mL); THC Urine VISTA NEGATIVE (< 50 ng/mL); Vista UDS pH Range 4
--- OUTSIDE RECORDS SUMMARY | 2023-08-09 20:55 | XMS RPT_ITS | CCD ---
Author Name Unknown Address [address] [place] [address] Organization [facility] Care Team Providers Care Industrial Controller Name Role Phone WILFRIDO TOLEDO Unavailable Unavailable WILFRIDO TOLEDO Unavailable Unavailable WILFRIDO TOLEDO Unavailable Unavailable NO, DOCTOR ON Unavailable Unavailable NO, DOCTOR ON Unavailable Unavailable Pcp, No Primary Care Provider Unavailabl e Unavailable Primary Care Provider Unavailabl e Friend Jesenia NEGRETE Primary Care Provider [phone] Friend Jesenia NEGRETE Unavailable Friend Jesenia NEGRETE Primary Care Provider CELINE MABRY Referring Unavailable JENNA BARRIGA Referring Unavail able JENNA BARRIGA Referring Unavail able CELINE MABRY Attending Unavailable JENNA BARRIGA Referring Unavail able EVELIA TREVINO Attending Unavailable JENNA BARRIGA Referring Unavail able VISIONEVELIA Gonzalez Attending Unavailable JENNA BARRIGA Attending Unavail able JENNA BARRIGA Referring Unavail able VISIONEVELIA Gonzalez Attending Unavailable JESENIA SALAMANCA Primary Care Unavailable JESENIA SALAMANCA Referring Unavailable VISIONEVELIA Gonzalez Attending Unavailable CARLOS GOODWIN Attending Unavailable CARLOS GOODWIN Referring Unavailable Medications Current Medications Medication Drug Class(es) Dates Sig (Normalized) Sig (Original) gabapentin 100 mg oral capsule (8 sources) Anti-epileptic Agent Start: 07-19-2023 End: 08-18-2023 take 3 capsules by mouth once daily at bedtime gabapentin (NEURONTIN) 100 mg capsule Take 3 capsules by mouth daily at bedtime for 30 days. 90 capsule 0 07/19/2023 08/18/2023 Active Completed/Discontinued Medications Medication Drug Class(es) Dates Sig (Normalized) Sig (Original) acetaminophen 500 mg oral tablet (6 sources) Start: 05-12-2023 take 2 tablets by mouth every six hours acetaminophen (TYLENOL) 500 mg tablet Take 2 tablets by mouth every 6 hours. 0 05/12/2023 Active Problems Active Problems Problem Classification Problem Date Documented Da te Episodic/Chronic Abdominal pain (6 sources) Abdominal pain; Translations: [Unspecified abdominal pain] Onset: 3 05-09-2023 Episodic Alcohol-related disorders (10 sources) Alcohol abuse; Translations: [Alcohol abuse, uncomplicated] Onset: 3 05-08-2023 Chronic Anxiety disorders (20 sources) Panic disorder without agoraphobia; Translations: [Panic disorder [episodic paroxysmal anxiety]] Onset: 6 10-29-2005 Chronic Biliary tract disease (2 sources) Gallstone; Translations: [Calculus of gallbladder without cholecystitis without obstruction] Onset: 3 05-08-2023 Episodic Esophageal disorders (10 sources) Gastroesophageal reflux disease; Translations: [Gastro-esophageal reflux disease without esophagitis] Onset: 3 05-08-2023 Chronic Essential hypertension (10 sources) Essential hypertension; Translations: [Essential (primary) hypertension] Onset: 3 05-08-2023 Chronic Nonmalignant breast conditions (4 sources) Discharge from nipple; Translations: [Nipple discharge] Onset: 3 07-26-2023 Episodic Pancreatic disorders (not diabetes) (17 sources) Alcohol-induced chronic pancreatitis; Translations: [Alcohol-induced chronic pancreatitis] Onset: 3 01-24-2023 Chronic Pancreatic disorders (not diabetes) (15 sources) Acute on chronic pancreatitis; Translations: [Acute pancreatitis without necrosis or infection, unspecified] Onset: 3 05-10-2023 Episodic Phlebitis; thrombophlebitis and thromboembolism (10 sources) Portal vein thrombosis; Translations: [Portal vein thrombosis] Onset: 3 05-08-2023 Episodic Substance-related disorders (11 sources) Nicotine dependence, unspecified, uncomplicated; Translations: [Nicotine dependence] Onset: 7 05-08-2023 Chronic Past or Other Problems Problem Classification Problem Date Documented Da te Episodic/Chronic Lymphadenitis (3 sources) Nonspecific lymphadenitis, unspecified; Translations: [Nonspecific lymphadenitis, unspecified] Onset: 11-02-2016 Episodic Other non-traumatic joint disorders (16 sources) Pain in lower limb; Translations: [Pain in unspecified knee] Onset: 10-29-2005 10-29-2005 Episodic Results Test Name Value Interpretation Reference Range Facil ity Vital Signs Date Time Vital Sign Value Performing Clinician Faci lity 07-19-2023 10:25-0500 Body height 162.6 cm Evelia Trevino MD Work Phone: [facility] 07-19-2023 10:25-0500 Diastolic blood pressure 78 mm[Hg] Evelia Trevino MD Work Phone: [facility] 07-19-2023 10:25-0500 Heart rate 100 /min Evelia Trevino MD Work Phone: [facility] 07-19-2023 10:25-0500 SaO2% (BldA) [Mass fraction] 98 % Evelia Trevino MD Work Phone: [facility] 07-19-2023 10:25-0500 Systolic blood pressure 126 mm[Hg] Evelia Trevino MD Work Phone: [facility] 05-08-2023 13:14-0500 Diastolic blood pressure 108 mm[Hg] Jenna Barriga MD Work Phone: [facility] 05-08-2023 13:14-0500 Heart rate 76 /min Jenna Barriga MD Work Phone: [facility] 05-08-2023 13:14-0500 Respiratory rate 14 /min Jenna Barriga MD Work Phone: [facility] 05-08-2023 13:14-0500 SaO2% (BldA) [Mass fraction] 98 % Jenna Barriga MD Work Phone: [facility] 05-08-2023 13:14-0500 Systolic blood pressure 168 mm[Hg] Jenna Barriga MD Work Phone: [facility] 05-08-2023 08:28-0500 Body temperature 98.1 [degF] eJnna Barriga MD Work Phone: [facility] 01-18-2023 08:31-0400 Body height 162.6 cm Evelia Trevino MD Work Phone: [facility] 01-18-2023 08:31-0400 Body weight 55.34 kg Evelia Trevino MD Work Phone: [facility] 01-18-2023 08:31-0400 Diastolic blood pressure 79 mm[Hg] Evelia Trevino MD Work Phone: [facility] 01-18-2023 08:31-0400 Heart rate 112 /min Evelia Trevino MD Work Phone: [facility] 01-18-2023 08:31-0400 Systolic blood pressure 111 mm[Hg] Evelia Trevino MD Work Phone: [facility] Encounters Encounter Date Encounter Type Care Provider Facility Start: 07-26-2023 Orders Only Celine BRISENO RN.PREKINDERGARTEN TEACHER Work Phone: OB/Gynecology Procedures Date Procedure Procedure Detail Performing Clinician Start: 05-24-2023 Follow-up visit Follow Up EVELIA TREVINO Start: 05-08-2023 Esophagoscp rig vicente soral hypopharynx crv esoph Jenna Barriga MD Work Phone: Start: 05-08-2023 Urine test visual color cmprsn meths Yoli Fulton RETIREMENT PLAN COUNSELOR.PREKINDERGARTEN TEACHER Work Phone: Plan of Treatment Date Care Activity Detail Author Start: 07-19-2024 BP Controlled (<130/80) BP Controlled (<130/80) [facility] Start: 01-19-2024 BP Controlled (<130/80) BP Controlled (<130/80) [facility] Start: 06-05-2023 Depression Assessment Depression Assessment [facility] Start: 05-08-2023 End: 04-19-2024 EGD - THERAPEUTIC, EUS, OR TUBE INTERVENTIONS EGD - THERAPEUTIC, EUS, OR TUBE INTERVENTIONS Endoscopy Routine Alcohol-induced chronic pancreatitis (HCC) Expected: 05/08/2023, Expires: 04/19/2024 [facility] Work Phone: Payers Date Payer Category Payer Unknown [id number] 2022 Medicaid [id number] Unknown [id number] Social History Date Type Detail Facility Start: 03-04-2011 End: 05-08-2023 Tobacco smoking status NHIS Smokes tobacco daily [facility] History of tobacco use Cigarette Smoker C [facility] Start: 03-04-2011 End: 01-18-2023 Cigarettes smoked current (pack per day) - Reported 1 [facility] Start: 03-04-2011 End: 05-08-2023 Tobacco use and exposure Smokeless tobacco non-user [facility] Start: 01-19-2022 End: 01-18-2023 Alcohol intake Current non-drinker of alcohol (finding) [facility] Start: 1980 Sex Assigned At Not on file C [facility] Start: 10-28-2022 End: 01-18-2023 Tobacco use panel [facility] National Score (1-10 0), lower number is lower risk Not on file [facility] Start: 05-08-2023 End: 06-28-2023 Alcohol intake Ex-drinker (finding) [facility] Start: 05-08-2023 Alcohol Comment sober since 12/2022 C [facility] How hard is it for y ou to pay for the very basics like food, housing, medical care, and heating Not very hard [facility] (I/We) worried whearina er (my/our) food would run out before (I/we) got money to buy more. Never true [facility] In the past 12 month s, was there a time when you were not able to pay the mortgage or rent on time? No [facility] Medical Equipment Procedure Code Equipment Code Equipment Origin al Text Equipment Identifier Dates Stent Wallflex 1 0mm 8.5fr Permalume Covering 40mm Biliary Rapid Exchange - [id number] Start: 05-08-2023 Clinical Notes 03-08-2021 to 08-01-2023 Telephone Encounter - Renea Veliz PA-C - 08/01/2023 11:38 AM ESTTelephone Encounter - Kylee Caputo MA - 08/01/2023 10:59 AM Evelia Ruiz MD - 07/19/2023 10:47 AM EST Note Date & Type Note [facility] 08-01-2023 Miscellaneous Notes Done Pt scheduled for 08/10/[address] Goodwin, can you please order Kylee Caputo MA Tried to call pt voicemail not set up Kylee Caputo MA Plz reschedule her ERCP sometimes in August. Thanks documented in this encounter [facility] 07-19-2023 Note HNO ID: [id number] Author: EVELIA TREVINO MD Service: ? Author Type: Physician Type: Progress Notes Filed: 07/27/2023 15:26 Note Text: Evelia Trevino M.D. 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 Patient reports that since her last visit she has continued to have abdominal pain. She reports that she has not yet seen pain management. No significant changes in her overall health since her last visit. She continues to abstain from alcohol. She has not yet quit smoking. Review of Systems Constitutional: Negative for malaise/fatigue and weight loss. HENT: Negative for sore throat. Eyes: Negative for blurred vision and double vision. Respiratory: Negative for cough, hemoptysis, shortness of breath and stridor. Cardiovascular: Negative for palpitations, claudication and leg swelling. Gastrointestinal: Positive for abdominal pain. Negative for blood in stool, nausea and vomiting. Genitourinary: Negative for dysuria, flank pain and hematuria. Musculoskeletal: Negative for falls, joint pain and myalgias. Skin: Negative for rash. Neurological: Negative for speech change, focal weakness and headaches. Endo/Heme/Allergies: Does not bruise/bleed easily. Psychiatric/Behavioral: Negative for depression and memory loss. The patient is not nervous/anxious. PAST MEDICAL HISTORY Diagnosis Date Bile duct disease Blood clot in vein Essential hypertension NEGATIVE MEDICAL HISTORY PAST SURGICAL HISTORY Procedure Laterality Date DILATION AND CURETTAGE DXAND/THER NONOBSTETRIC Dilation AND curettage, X-2 LIG/TRNSXJ FLP TUBE ABDL/VAG APPR UNI/BI Tubal ligation PLACEMENT, BILE DUCT STENT 2022 Social History Tobacco Use Smoking status: Every Day Packs/day: 1.00 Years: 30.00 Additional pack years: 0.00 Total pack years: 30.00 Types: Cigarettes Smokeless tobacco: Never Vaping Use Vaping Use: Never used Substance Use Topics Alcohol use: Not Currently Comment: sober since 12/2022 Drug use: No FAMILY HISTORY Problem Relation Age of Onset Diabetes Maternal Uncle Asthma Brother The ROS, medical, surgical, family, and social history were reviewed by Evelia Trevino MD ALLERGIES No Known Allergies Current Outpatient Medications Medication Sig oxyCODONE IR (ROXICODONE) 5 mg immediate release tablet Take 1 tablet by mouth every 6 hours as needed for pain for up to 7 days. dicloxacillin (DYNAPEN) 500 mg capsule Take 1 capsule by mouth four times daily. ibuprofen (MOTRIN IB ORAL) Take by mouth. acetaminophen (TYLENOL) 500 mg tablet Take 2 tablets by mouth every 6 hours. lactulose 10 gram/15 mL solution Take 30 mL by mouth once daily as needed for up to 2 doses. Nicotine 21-14-7 mg/24 hr ptds Apply 1 Patch as directed once daily. iv contrast (will be provided with radiology test) MRI PANC/BRYAN Inject, intravenously, once for 1 dose. No IV access, insert saline lock prior to the beginning of sedation, infusion, injection of imaging exam. Discontinue saline lock post exam. If Pt. has a central line or IVAD, may access for administration according to line specific nursing protocol. Once exam is complete flush line and de-access according to line specific nursing protocol in the MR contrast administration guidelines link. (Patient not taking: Reported on 06/28/2023) gabapentin (NEURONTIN) 300 mg capsule Take 1 capsule by mouth daily at bedtime for 30 days. (Patient not taking: Reported on 06/28/2023) omeprazole (PRILOSEC) 40 mg capsule Take 1 capsule by mouth once daily for 21 days. No current facility-administered medications for this visit. OBJECTIVE BP 126/78 Pulse 100 Ht 162.6 cm (5' 4 ) LMP 05/09/2023 SpO2 98% BMI 24.03 kg/m? No weight on file for this encounter. Physical Exam Constitutional: General: She is not in acute distress. HENT: Head: Normocephalic and atraumatic. Eyes: Pupils: Pupils are equal, round, and reactive to light. Neck: Thyroid: No thyromegaly. Trachea: No tracheal deviation. Cardiovascular: Rate and Rhythm: Normal rate and regular rhythm. Heart sounds: Normal heart sounds. Pulmonary: Effort: Pulmonary effort is normal. No respiratory distress. Breath sounds: Normal breath sounds. No stridor. Abdominal: General: There is no distension. Palpations: Abdomen is soft. Tenderness: There is no abdominal tenderness. Musculoskeletal: General: No deformity. Normal range of motion. Skin: General: Skin is warm and dry. Findings: No erythema or rash. Neurological: Mental Status: She is alert and oriented to person, place, and time. Psychiatric: Mood and Affect: Affect normal. Judgment: Judgment normal. ASSESSMENT AND PLAN Plan 43-year-old woman with alcoholic pancreatitis resulting (more content not included)... [facility] 07-19-2023 History of Present illness Narrative Images from the original note were not included. Evelia Trevino M.D. 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 Patient reports that since her last visit she has continued to have abdominal pain. She reports that she has not yet seen pain management. No significant changes in her overall health since her last visit. She continues to abstain from alcohol. She has not yet quit smoking. Review of Systems Constitutional: Negative for malaise/fatigue and weight loss. HENT: Negative for sore throat. Eyes: Negative for blurred vision and double vision. Respiratory: Negative for cough, hemoptysis, shortness of breath and stridor. Cardiovascular: Negative for palpitations, claudication and leg swelling. Gastrointestinal: Positive for abdominal pain. Negative for blood in stool, nausea and vomiting. Genitourinary: Negative for dysuria, flank pain and hematuria. Musculoskeletal: Negative for falls, joint pain and myalgias. Skin: Negative for rash. Neurological: Negative for speech change, focal weakness and headaches. Endo/Heme/Allergies: Does not bruise/bleed easily. Psychiatric/Behavioral: Negative for depression and memory loss. The patient is not nervous/anxious. PAST MEDICAL HISTORY Diagnosis Date Bile duct disease Blood clot in vein Essential hypertension NEGATIVE MEDICAL HISTORY PAST SURGICAL HISTORY Procedure Laterality Date DILATION & CURETTAGE DX&/THER NONOBSTETRIC Dilation & curettage, X-2 LIG/TRNSXJ FLP TUBE ABDL/VAG APPR UNI/BI Tubal ligation PLACEMENT, BILE DUCT STENT 2022 Social History Tobacco Use Smoking status: Every Day Packs/day: 1.00 Years: 30.00 Additional pack years: 0.00 Total pack years: 30.00 Types: Cigarettes Smokeless tobacco: Never Vaping Use Vaping Use: Never used Substance Use Topics Alcohol use: Not Currently Comment: sober since 12/2022 Drug use: No FAMILY HISTORY Problem Relation Age of Onset Diabetes Maternal Uncle Asthma Brother The ROS, medical, surgical, family, and social history were reviewed by Evelia Trevino MD ALLERGIES No Known Allergies Current Outpatient Medications Medication Sig oxyCODONE IR (ROXICODONE) 5 mg immediate release tablet Take 1 tablet by mouth every 6 hours as needed for pain for up to 7 days. dicloxacillin (DYNAPEN) 500 mg capsule Take 1 capsule by mouth four times daily. ibuprofen (MOTRIN IB ORAL) Take by mouth. acetaminophen (TYLENOL) 500 mg tablet Take 2 tablets by mouth every 6 hours. lactulose 10 gram/15 mL solution Take 30 mL by mouth once daily as needed for up to 2 doses. Nicotine 21-14-7 mg/24 hr ptds Apply 1 Patch as directed once daily. iv contrast (will be provided with radiology test) MRI PANC/BRYAN Inject, intravenously, once for 1 dose. No IV access, insert saline lock prior to the beginning of sedation, infusion, injection of imaging exam. Discontinue saline lock post exam. If Pt. has a central line or IVAD, may access for administration according to line specific nursing protocol. Once exam is complete flush line and de-access according to line specific nursing protocol in the MR contrast administration guidelines link. (Patient not taking: Reported on 06/28/2023) gabapentin (NEURONTIN) 300 mg capsule Take 1 capsule by mouth daily at bedtime for 30 days. (Patient not taking: Reported on 06/28/2023) omeprazole (PRILOSEC) 40 mg capsule Take 1 capsule by mouth once daily for 21 days. No current facility-administered medications for this visit. OBJECTIVE BP 126/78 Pulse 100 Ht 162.6 cm (5' 4 ) LMP 05/09/2023 SpO2 98% BMI 24.03 kg/m No weight on file for this encounter. Physical Exam Constitutional: General: She is not in acute distress. HENT: Head: Normocephalic and atraumatic. Eyes: Pupils: Pupils are equal, round, and reactive to light. Neck: Thyroid: No thyromegaly. Trachea: No tracheal deviation. Cardiovascular: Rate and Rhythm: Normal rate and regular rhythm. Heart sounds: Normal heart sounds. Pulmonary: Effort: Pulmonary effort is normal. No respiratory distress. Breath sounds: Normal breath sounds. No stridor. Abdominal: General: There is no distension. Palpations: Abdomen is soft. Tenderness: There is no abdominal tenderness. Musculoskeletal: General: No deformity. Normal range of motion. Skin: General: Skin is warm and dry. Findings: No erythema or rash. Neurological: Mental Status: She is alert and oriented to person, place, and time. Psychiatric: Mood and Affect: Affect normal. Judgment: Judgment normal. ASSESSMENT AND PLAN Plan 43-year-old woman with alcoholic pancreatitis resulting in a biliary and pancreatic duct stricture. Patient continues to have ongoing abdominal pain. Advised patient that we are still awaiting for her biliary stent to treat her stricture and repeat ERCP in the next couple of months we will determine whether or not her stricture is resolved. We could also potentially endoscopically treat her pancreatic duct stricture. She has had no relief with a celiac plexus block and I did recommend ongoing pain management evaluation as this will likely be a longer-term pain management issue. Patient will also obtain her blood work today to ensure she is not having any issues with her stent. Answered all of her questions to her satisfaction. I spent a total of 30 minutes on the date of the service which included preparing to see the patient, performing a medically appropriate examination, counseling and educating the patient/family/caregiver, and ordering medications, tests, or procedures. Evelia Trevino MD 07/19/2023 10:47 AM documented in this encounter [facility] 07-05-2023 Note HNO ID: [id number] Author: JAIMIE PANDYA APRN.CNP Service: Anesthesiology Author Type: Nurse Practitioner Type: Progress Notes Filed: 07/05/2023 08:55 Note Text: ------ Summary: HANDP Completed 06/28/23 ------ Pre Procedure HANDP Completed 06/28/23 in [facility] 07-04-2023 Note HNO ID: [id number] Author: KYLIE TOMPKINS, Service: ? Author Type: Fellow Type: Progress Notes Filed: 07/04/2023 11:05 Note Text: [facility] Multidisciplinary Vvnuzp-Lpzlqbnvd-Yfsnbbi AND Upper GI Case Conference -- Consensus Note -- Conference Date: 07/04/2023 Case reviewed with physicians from GI, Surgery, AND Radiology services: -- Surgeons - Yoni, SejalDamian mercado [place], [facility], and [facility] -- Gastroenterologists - [place] -- Radiologist - None Issue(s) Question(s): 43 year old female who presented to clinic with presumed alcoholic pancreatitis. She had a biliary stricture in the summer of 2022 and underwent an ERCP with a covered metal stent placement. The stent is still in place. A stone in the bile duct was reported to have been removed at this time too. Has pain. No PETH done yet but had stop alcohol per the patient. Still smoking. Pre-conference plan: - Surgical intervention Imaging Review: - MRI with changes of chronic pancreatitis and caliber change of the pancreatic duct in the head without any discrete mass which likely represents a stricture. Final Consensus Recommendation(s): - Leave biliary stent in place for a couple of months before removal, and then follow clinically - No emergent need for a cholecystectomy at this time - Re-image in 3 months Kylie Tompkins DO [facility] Surgical Fellow [facility] 06-28-2023 Note HNO ID: [id number] Author: EVELIA TREVION MD Service: ? Author Type: Physician Type: Progress Notes Filed: 06/28/2023 10:43 Note Text: Evelia Trevino M.D. Surgical Oncology [address] [facility], [address] [place] [address] SUBJECTIVE HPI Melva Kerns is a 43 year old female presenting for follow-up of chronic alcoholic pancreatitis. Patient was last seen in clinic about 1 month ago. We ordered an MRI/MRCP patient presents today for follow-up. Currently, patient reports that she is doing relatively well. She continues to have abdominal pain requiring narcotics for relief. She reports episodic significant abdominal pain that will last several minutes. She describes this is quite severe. She reports no nausea or vomiting. No weight loss. No diarrhea. She reports no other significant changes to her medical history since her last visit. She reports complete abstinence from alcohol. She is trying to quit smoking and has reduced her smoking slightly. Review of Systems Constitutional: Negative for malaise/fatigue and weight loss. HENT: Negative for sore throat. Eyes: Negative for blurred vision and double vision. Respiratory: Negative for cough, hemoptysis, shortness of breath and stridor. Cardiovascular: Negative for palpitations, claudication and leg swelling. Gastrointestinal: Positive for abdominal pain. Negative for blood in stool, nausea and vomiting. Genitourinary: Negative for dysuria, flank pain and hematuria. Musculoskeletal: Negative for falls, joint pain and myalgias. Skin: Negative for rash. Neurological: Negative for speech change, focal weakness and headaches. Endo/Heme/Allergies: Does not bruise/bleed easily. Psychiatric/Behavioral: Negative for depression and memory loss. The patient is not nervous/anxious. PAST MEDICAL HISTORY Diagnosis Date Bile duct disease Blood clot in vein Essential hypertension NEGATIVE MEDICAL HISTORY PAST SURGICAL HISTORY Procedure Laterality Date DILATION AND CURETTAGE DXAND/THER NONOBSTETRIC Dilation AND curettage, X-2 LIG/TRNSXJ FLP TUBE ABDL/VAG APPR UNI/BI Tubal ligation PLACEMENT, BILE DUCT STENT 2022 Social History Tobacco Use Smoking status: Every Day Packs/day: 1.00 Years: 30.00 Additional pack years: 0.00 Total pack years: 30.00 Types: Cigarettes Smokeless tobacco: Never Vaping Use Vaping Use: Never used Substance Use Topics Alcohol use: Not Currently Comment: sober since 12/2022 Drug use: No FAMILY HISTORY Problem Relation Age of Onset Diabetes Maternal Uncle Asthma Brother The ROS, medical, surgical, family, and social history were reviewed by Evelia Trevino MD ALLERGIES No Known Allergies Current Outpatient Medications Medication Sig dicloxacillin (DYNAPEN) 500 mg capsule Take 1 capsule by mouth four times daily. ibuprofen (MOTRIN IB ORAL) Take by mouth. acetaminophen (TYLENOL) 500 mg tablet Take 2 tablets by mouth every 6 hours. lactulose 10 gram/15 mL solution Take 30 mL by mouth once daily as needed for up to 2 doses. omeprazole (PRILOSEC) 40 mg capsule Take 1 capsule by mouth once daily for 21 days. iv contrast (will be provided with radiology test) MRI PANC/BRYAN Inject, intravenously, once for 1 dose. No IV access, insert saline lock prior to the beginning of sedation, infusion, injection of imaging exam. Discontinue saline lock post exam. If Pt. has a central line or IVAD, may access for administration according to line specific nursing protocol. Once exam is complete flush line and de-access according to line specific nursing protocol in the MR contrast administration guidelines link. (Patient not taking: Reported on 06/28/2023) gabapentin (NEURONTIN) 300 mg capsule Take 1 capsule by mouth daily at bedtime for 30 days. (Patient not taking: Reported on 06/28/2023) No current facility-administered medications for this visit. OBJECTIVE BP 110/82 Ht 162.6 cm (5' 4 ) Wt 63.5 kg (140 lb) LMP 05/09/2023 BMI 24.03 kg/m? BMI 24.03 kg/(m2) Physical Exam Constitutional: General: She is not in acute distress. HENT: Head: Normocephalic and atraumatic. Eyes: Pupils: Pupils are equal, round, and reactive to light. Neck: Thyroid: No thyromegaly. Trachea: No tracheal deviation. Cardiovascular: Rate and Rhythm: Normal rate and regular rhythm. Heart sounds: Normal heart sounds. Pulmonary: Effort: Pulmonary effort is normal. No respiratory distress. Breath sounds: Normal breath sounds. No stridor. Abdominal: General: There is no distension. Palpations: Abdomen is soft. Tenderness: There is no abdominal tenderness. Musculoskeletal: General: No deformity. Normal range of motion. Skin: General: Skin is warm and dry. Findings: No erythema or rash. Neurological: Mental Status: She is alert and oriented to person, place, and time. Psychiatric: Mood and Affect: Affect normal. Judgment: Judgme (more content not included)... [facility] 06-23-2023 Note HNO ID: [id number] Author: TARA MARTINEZ RT(Jad) Service: ? Author Type: Technologist Type: Progress Notes Filed: 06/23/2023 08:58 Note Text: Radiology Service Progress Note DATE OF SERVICE: June 23, 2023 TIME: 8:58 AM PATIENT IDENTITY VERIFICATION COMPLETED USING TWO (2) STANDARD IDENTIFIERS: Name and Date of confirmed by patient verbally. FALL SCREENING: Has the patient had 2 falls in the last year or 1 fall with injury or currently using an Ambulatory Assistive Device (Walker, Cane, Wheelchair, Crutches, etc.)? No PATIENT GENDER DATA: Female. status: : No status: NO. PATIENT RELEVANT IMPLANT DATA REVIEWED: Yes ALLERGIES: Reviewed and unchanged CONTRAST ALLERGY: NO. EXAM: MRI - CONTRAST TYPE: GROUP II PERIPHERAL IV DATA: Ambulatory: A peripheral IV was started in the Left antecubital site with a Angio cath: 22 gauge. RADIOLOGY DEPARTMENT: MR; Exam(s) Completed: Body: Pancreas/Biliary SIGNATURE: RT Mercedes(R) PATIENT NAME: Melva Kersn DATE: June 23, 2023 TIME: 8:58 AM [facility] 05-25-2023 Note HNO ID: [id number] Author: Celine Mabry APRN.PREKINDERGARTEN TEACHER Service: ? Author Type: Nurse Practitioner Type: Progress Notes Filed: 05/25/2023 1:31 PM Note Text: Customer Resource Specialist offered: Patient declines. Melva Kerns is a 42 year old female who presents for problem visit of a breast lump/pain. HPI: Patient had her nipples pierced a couple of years ago. Took out piercing about 1 year ago. Noticed a small lump under the nipple that she was able to express discharge from. Reports the last couple of days she has noticed a new lump. Reports that it is very sore. No discharge currently. OB History T0 L3 SAB2 IAB0 Ectopic0 Multiple0 Live Births0 Credit Card Interviewer History LMP: 10/22/2022, Having periods Age at Menarche: Age at First : Age at Menopause: Credit Card Interviewer History Comments: Sexual Activity: Yes; Male Contraception: Surgical PAST MEDICAL HISTORY Diagnosis Date Bile duct disease Blood clot in vein Essential hypertension NEGATIVE MEDICAL HISTORY PAST SURGICAL HISTORY Procedure Laterality Date DILATION AND CURETTAGE DXAND/THER NONOBSTETRIC Dilation AND curettage, X-2 LIG/TRNSXJ FLP TUBE ABDL/VAG APPR UNI/BI Tubal ligation PLACEMENT, BILE DUCT STENT 2022 FAMILY HISTORY Problem Relation Age of Onset Diabetes Maternal Uncle Asthma Brother Social History Tobacco Use Smoking status: Every Day Packs/day: 1.00 Years: 30.00 Additional pack years: 0.00 Total pack years: 30.00 Types: Cigarettes Smokeless tobacco: Never Vaping Use Vaping Use: Never used Substance Use Topics 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 oxyCODONE IR (ROXICODONE) 5 mg immediate release tablet Take 1 tablet by mouth every 6 hours as needed for pain for up to 7 days. acetaminophen (TYLENOL) 500 mg tablet Take 2 tablets by mouth every 6 hours. lactulose 10 gram/15 mL solution Take 30 mL by mouth once daily as needed for up to 2 doses. gabapentin (NEURONTIN) 300 mg capsule Take 1 capsule by mouth daily at bedtime for 30 days. iv contrast (will be provided with radiology test) MRI PANC/BRYAN Inject, intravenously, once for 1 dose. No IV access, insert saline lock prior to the beginning of sedation, infusion, injection of imaging exam. Discontinue saline lock post exam. If Pt. has a central line or IVAD, may access for administration according to line specific nursing protocol. Once exam is complete flush line and de-access according to line specific nursing protocol in the MR contrast administration guidelines link. omeprazole (PRILOSEC) 40 mg capsule Take 1 capsule by mouth once daily for 21 days. No current facility-administered medications for this visit. Allergies As of Date: 05/25/2023 (No Known Allergies) Fully Assessed 05/24/2023 REVIEW OF SYSTEMS Abdomen: No bloating, early satiety, indigestion, or increased flatulence. No abdominal pain, nausea, vomiting, diarrhea, or constipation. + multiple GI issues, seeing GI specialist Bladder: No dysuria, gross hematuria, urinary frequency, urinary urgency, or incontinence. Breast: No nipple d/c, overlying skin changes, redness or skin retraction. + Breast lump and pain Expanded ROS: N/A Allergies and current medication updated:Yes EXAM: BP 110/70 Wt 140 lb (63.5kg) LMP 05/09/2023 GENERAL: pleasant, female in no apparent distress HEENT: Normocephalic, atraumatic, mucus membranes moist, and no lesions NECK: Supple, full range of motion, no adenopathy, and thyroid normal DERMATOLOGY: Normal, without lesions, non-icteric, and non-hirsute BREAST: soft, non-tender, symmetric, no dominant mass, normal nipple-areolar complex, no lymphadenopathy, and no nipple discharge + 3 cm area of erythema, swelling, and warmth from 6:00 to 9:00 position of left nipple with associated lump. Tender to touch CHEST: Normal inspiratory effort NEURO: alert and oriented x3,exam grossly non-focal EXTREMITIES: normal ASSESSMENT AND PLAN: Acute mastitis - ICD9: 611.0, ICD10: N61.0 (primary diagnosis) Breast pain - ICD9: 611.71, ICD10: N64.4 - Keep area clean and try - Take antibiotic as prescribed - Tylenol and Ibuprofen for pain - Denies fever or chills - Breast imaging ordered - Prolactin level ordered for previous discharge To notify with worsening symptoms, fever, or chills. Celine Mabry APRN.ANETTE Medical Decision Making: Problems: Moderate: New problem with uncertain prognosis Data: Unique test(s) ordered: 2 Risk: Low: Low risk from testing/treatment Moderate: Drug management Medical Decision Making Level: 4 - Moderate [facility] 05-24-2023 Note HNO ID: [id number] Author: Evelia Trevino MD Service: ? Author Type: Physician Type: Progress Notes Filed: 05/26/2023 9:34 AM Note Text: Evelia Trevino M.D. Surgical Oncology [address] [facility], [address] [place] [address] SUBJECTIVE HPI Melva Kerns is a 42 year old female presenting for follow-up of alcoholic chronic pancreatitis. Patient was last seen in clinic approximately 4 months ago. She was sent for an EUS FNA given the concern for a pancreatic head mass in addition to her pancreatitis. This was performed a couple of weeks ago with ERCP and biliary stent placement bile duct brushings and bile duct biopsy demonstrated inflammation and FNA was nondiagnostic. Patient had severe pain after this and a repeat ERCP and stent exchange was performed. Since then she has continued to have significant right upper quadrant pain. She reports that this right upper quadrant pain is very different from her pancreatitis type pain which was not terribly severe prior to her procedures. She reports no nausea or vomiting. No fevers chills or sweats. No significant changes to her bowel habits. No significant weight loss. Review of Systems Constitutional: Negative for malaise/fatigue and weight loss. HENT: Negative for sore throat. Eyes: Negative for blurred vision and double vision. Respiratory: Negative for cough, hemoptysis, shortness of breath and stridor. Cardiovascular: Negative for palpitations, claudication and leg swelling. Gastrointestinal: Positive for abdominal pain. Negative for blood in stool, nausea and vomiting. Genitourinary: Negative for dysuria, flank pain and hematuria. Musculoskeletal: Negative for falls, joint pain and myalgias. Skin: Negative for rash. Neurological: Negative for speech change, focal weakness and headaches. Endo/Heme/Allergies: Does not bruise/bleed easily. Psychiatric/Behavioral: Negative for depression and memory loss. The patient is not nervous/anxious. 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 acetaminophen (TYLENOL) 500 mg tablet Take 2 tablets by mouth every 6 hours. lactulose 10 gram/15 mL solution Take 30 mL by mouth once daily as needed for up to 2 doses. gabapentin (NEURONTIN) 300 mg capsule Take 1 capsule by mouth daily at bedtime for 30 days. omeprazole (PRILOSEC) 40 mg capsule Take 1 capsule by mouth once daily for 21 days. No current facility-administered medications for this visit. OBJECTIVE BP 120/81 Pulse 105 Wt 62.6 kg (138 lb) LMP 10/22/2022 BMI 23.69 kg/m? BMI 23.69 kg/(m2) Physical Exam Constitutional: General: She is not in acute distress. HENT: Head: Normocephalic and atraumatic. Eyes: Pupils: Pupils are equal, round, and reactive to light. Neck: Thyroid: No thyromegaly. Trachea: No tracheal deviation. Cardiovascular: Rate and Rhythm: Normal rate and regular rhythm. Heart sounds: Normal heart sounds. Pulmonary: Effort: Pulmonary effort is normal. No respiratory distress. Breath sounds: Normal breath sounds. No stridor. Abdominal: General: There is no distension. Palpations: Abdomen is soft. Tenderness: There is abdominal tenderness. Musculoskeletal: General: No deformity. Normal range of motion. Skin: General: Skin is warm and dry. Findings: No erythema or rash. Neurological: Mental Status: She is alert and oriented to person, place, and time. Psychiatric: Mood and Affect: Affect normal. Judgment: Judgment normal. ASSESSMENT AND PLAN Plan 42-year-old woman with alcoholic chronic pancreatitis. Patient underwent ERCP with severe postprocedure pain. She is continuing to have this pain at this time which could be related to her biliary stent. Advised patient we will discuss this with GI to determine if removal of her stent is reasonable/feasible. She did have a stricture but did not have any elevation of her bilirubin. Advised patient I will prescribe her some pain medications right now. I would al (more content not included)... [facility] 05-12-2023 Note HNO ID: [id number] Author: Jose Francisco Vasquez RPh Service: Pharmacy Author Type: Pharmacist Type: Plan of Care Filed: 05/12/2023 2:14 PM Note Text: DISCHARGE MEDICATION REVIEW BY PHARMACY Patient Name: Melva Kerns Account #: Data Unavailable Admission Date: 05/09/2023 Date of Contact: May 12, 2023 Time of Contact: 2:14 PM Medication list was reviewed by a Pharmacist for drug interactions or drug related problems:Yes Below is a summary of pharmacist recommendations discussed with LIP: No Recommendations at this time from Discharge Medication List. Jose Francisco Vasquez RPh May 12, 2023 2:14 PM Pager: [phone] 05/12/2023 2:14 PM Medication List START taking these medications acetaminophen 500 mg tablet Commonly known as: TYLENOL Take 2 tablets by mouth every 6 hours. cyclobenzaprine 5 mg tablet Commonly known as: FLEXERIL Take 1 tablet by mouth three times a day as needed for muscle spasm for up to 7 days. gabapentin 300 mg capsule Commonly known as: NEURONTIN Take 1 capsule by mouth daily at bedtime for 30 days. lactulose 10 gram/15 mL solution Take 30 mL by mouth once daily as needed for up to 2 doses. oxyCODONE IR 5 mg immediate release tablet Commonly known as: ROXICODONE Take 1-2 tablets by mouth every 6 hours as needed for pain for up to 7 days. CONTINUE taking these medications omeprazole 40 mg capsule Commonly known as: PriLOSEC Take 1 capsule by mouth once daily for 21 days. STOP taking these medications MOTRIN 800 mg tablet Generic drug: ibuprofen Where to Get Your Medications These medications were sent to [facility] [address] [facility] [id number] Hours: Monday-Monday, 8am-7pm, Monday 9am-1pm cyclobenzaprine 5 mg tablet gabapentin 300 mg capsule lactulose 10 gram/15 mL solution oxyCODONE IR 5 mg immediate release tablet [facility] 05-12-2023 Note HNO ID: [id number] Author: Jessica Paige APRN.PREKINDERGARTEN TEACHER Service: Gastroenterology Author Type: Nurse Practitioner Type: Progress Notes Filed: 05/12/2023 10:54 AM Note Text: GI CONSULT PROGRESS NOTE SERVICE DATE: 05/12/2023 SERVICE TIME: 953 CONSULTING SERVICE: Gastroenterology Subjective INTERVAL HPI: GI consulted for abdominal pain s/p ERCP. 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 S/p multiple ERCP's with stent placement. ERCP 05/11/23 with noted metallic biliary stent in good position. Occlusion cholangiogram was clear at the end of the case. Gallbladder filled. No overt stricture with stent in place. Presently, the patient is sitting up in bed. She is eating breakfast. She denies nausea or vomiting. She experiences heartburn on occasion. No c/o dysphagia or odynophagia. She reports continued right upper abdominal pain. However, she feels better today than yesterday. She is passing flatus. Current Facility-Administered Medications Medication Dose Route Frequency HYDROmorphone (PF) 1 mg injection (DILAUDID) 1 mg INTRAVENOUS q [address] 40 mg tab(s) (PROTONIX) 40 mg ORAL DAILY (6 AM) NaCl 0.9% iv flush bag 20 mL INTRAVENOUS PRN ondansetron 4 mg tab(s) (ZOFRAN) 4 mg ORAL q 6 H PRN Or ondansetron (PF) 4 mg injection (ZOFRAN) 4 mg INTRAVENOUS q 6 H PRN gabapentin 300 mg cap(s) (NEURONTIN) 300 mg ORAL q 12 H melatonin 6 mg tab(s) 6 mg ORAL AT BEDTIME PRN calcium carbonate 750 mg chewable tab(s) (TUMS) 750 mg ORAL TID PRN nicotine 21 mg/24 hr 1 Patch (NICODERM) 1 Patch TRANSDERMAL DAILY And [START ON 05/13/2023] nicotine -- REMOVE patch OTHER DAILY And nicotine - verify patch OTHER q 8 H Objective PHYSICAL EXAM: Physical Exam Performed: Physical Exam Vitals reviewed. Constitutional: General: She is not in acute distress. HENT: Head: Normocephalic and atraumatic. Mouth/Throat: Mouth: Mucous membranes are moist. Eyes: Extraocular Movements: Extraocular movements intact. Conjunctiva/sclera: Conjunctivae normal. Cardiovascular: Rate and Rhythm: Normal rate. Pulmonary: Effort: Pulmonary effort is normal. No respiratory distress. Abdominal: General: Bowel sounds are normal. There is no distension. Palpations: Abdomen is soft. Tenderness: There is abdominal tenderness in the right upper quadrant. There is no guarding or rebound. Musculoskeletal: General: Normal range of motion. Skin: General: Skin is warm and dry. Coloration: Skin is not jaundiced. Neurological: General: No focal deficit present. Mental Status: She is alert and oriented to person, place, and time. Psychiatric: Mood and Affect: Mood normal. BP 143/98 Pulse 86 Temp (Src) 97 (Temporal) Resp 18 Ht 5' 4 (1.63m) Wt 138 lb 3.7 oz (62.7kg) SpO2 99% LMP 10/22/2022 BMI 23.72 kg/(m2). O2 Therapy: Room Air DATA: Diagnostic tests reviewed for today's visit: Most recent labs WBC (k/uL) Date Value 05/12/2023 11.27 (H) RBC (m/uL) Date Value 05/12/2023 3.84 (L) Hemoglobin (g/dL) Date Value 05/12/2023 12.3 Hematocrit (%) Date Value 05/12/2023 34.9 (L) MCV (fL) Date Value 05/12/2023 90.9 MCH (pg) Date Value 05/12/2023 32.0 MCHC (g/dL) Date Value 05/12/2023 35.2 RDW-CV (%) Date Value 05/12/2023 13.2 Platelet Count (k/uL) Date Value 05/12/2023 284 MPV (fL) Date Value 05/12/2023 10.0 Glucose (mg/dL) Date Value 05/12/2023 169 (H) BUN (mg/dL) Date Value 05/12/2023 11 Creatinine (mg/dL) Date Value 05/12/2023 0.92 Sodium (mmol/L) Date Value 05/12/2023 136 Potassium (mmol/L) Date Value 05/12/2023 4.3 Chloride (mmol/L) Date Value 05/12/2023 100 CO2 (mmol/L) Date Value 05/12/2023 26 Protein, Total (g/dL) Date Value 05/12/2023 7.0 Albumin (g/dL) Date Value 05/12/2023 4.1 Calcium, Total (mg/dL) Date Value 05/12/2023 9.6 Alkaline Phosphatase (U/L) Date Value 05/12/2023 112 Bilirubin, Total (mg/dL) Date Value 05/12/2023 0.2 AST (U/L) Date Value 05/12/2023 35 ALT (U/L) Date Value 05/12/2023 17 ERCP 05/11/23 Metallic biliary stent in good position. 9/12mm extraction balloon was used to sweep the CBD. Occlusion cholangiogram was clear at the end of the case. The scope was then withdrawn and the patient tolerated the procedure well. The patient was given Indomethacin 100mg per rectum, at the end of the case. Biliary stent in good position, gallbladder filled no overt stricture with stent in place EGD 05/08 Normal esophagus, stomach. Plastic stent in duodenum (removed) ERCP 05/08 Stent removed and new covered wall stent replaced Impression/Recommendations Chronic pancreatitis. Likely 2/2 to history of alcohol and gallstones. S/p multiple ERCP's with stent placement. No acute pancreatitis on CT. Lipase normal. LFTs normal. S/P ERCP 05/11 with metallic sten (more content not included)... [facility] 05-11-2023 Note HNO ID: [id number] Author: Tara Bhat APRN.LOCK STITCH CHANNELER Service: ? 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 Staffing Anesthesiologist: Wanda Lindsay MD LOCK STITCH CHANNELER: Tara Bhat APRN.LOCK STITCH CHANNELER Performed by: CANDE Indications and Patient Condition Indications for airway management: anesthesia and airway protection Preoxygenated: yes anesthesia circuit Patient position: sniffing Method: asleep Difficult Mask: No Final Airway Details Final airway type: endotracheal airway Final Endotracheal Airway: ETT Cuffed: yes Successful intubation technique: direct laryngoscopy Endotracheal tube insertion site: oral Blade: Joleen Blade size: #3 ETT size (mm): 7.0 Measured from: lips Measurement (cm): 21 Placement verified by: chest auscultation and capnometry Cormack-Lehane Classification: grade I - full view of glottis Number of attempts at approach: 1 Failed airway: no Unrecognized esophageal intubation: no Airway not difficult SIGNATURE: Tara Bhat APRN.LOCK STITCH CHANNELER PATIENT NAME: Melva Kerns DATE: May 11, 2023 TIME: 2:41 PM CSN: [id number] [facility] 05-11-2023 Note HNO ID: [id number] Author: Kimberly Page MD Service: Hospital Medicine Author Type: Physician Type: Progress Notes Filed: 05/11/2023 5:31 PM Note Text: DEPARTMENT OF HOSPITAL MEDICINE PROGRESS NOTE Hospital Medicine/Primary Attending: Kimberly Page MD NIGHT AND WEEKEND COVERAGE: After 7pm please page [phone] MEDICATIONS: Current Facility-Administered Medications Medication Dose Route Frequency HYDROmorphone (PF) 1 mg injection (DILAUDID) 1 mg INTRAVENOUS q [address] 40 mg tab(s) (PROTONIX) 40 mg ORAL DAILY (6 AM) NaCl 0.9% iv flush bag 20 mL INTRAVENOUS PRN NaCl 0.9% iv infusion 100 mL/hr INTRAVENOUS CONTINUOUS ondansetron 4 mg tab(s) (ZOFRAN) 4 mg ORAL q 6 H PRN Or ondansetron (PF) 4 mg injection (ZOFRAN) 4 mg INTRAVENOUS q 6 H PRN gabapentin 300 mg cap(s) (NEURONTIN) 300 mg ORAL q 12 H DATA: Diagnostic tests reviewed for today's visit: CBC, Coags, BMP, Mg, Phos Recent Labs 05/11/23 1248 05/10/23 0401 WBC 8.03 8.93 HB 11.4* 12.4 HCT 34.5* 36.3 PLT 242 269 NA 139 139 K 4.2 3.6* CHLOR 105 103 CO2 25 24 BUN 5* 8 CREAT 0.77 0.66 GLUC 96 110* CA 8.8 8.9 Liver Function, Amylase, AND Lipase Recent Labs 05/11/23 1248 05/10/23 0401 TPROT 6.4 6.6 ALB 3.9 4.0 ALT 12 12 AST 15 14 ALKPHOS 93 104 TBILI 0.3 0.3 LIPASE -- 24 Cardiac Enzymes Glom Filtration Rate SRAVANTHI, and AA CARDIAC: No results for input(s): PBNP in the last 168 hours. Problem List Abdominal pain (POA: Status not on file) Essential hypertension (POA: Yes) Alcohol-induced chronic pancreatitis (HCC) (POA: Yes) Acute on chronic pancreatitis (HCC) (POA: Yes) PHYSICAL EXAM: BP 170/103 Pulse 73 Temp (Src) 97.9 (Oral) Resp 18 Ht 5' 4 (1.63m) Wt 138 lb 3.7 oz (62.7kg) SpO2 96% LMP 10/22/2022 BMI 23.72 kg/(m2). O2 Therapy: Room Air, Liters: 8 Follow up : Pt seen and examined at the bedside. Continues to complain of RUQ abdominal pain. Constitutional - Vitals as above, NAD Respiratory - Clear to auscultate both sides. No crackles, wheezes or rales, No labored breathing noted CVS- RRR, no murmur/gallop/rub, pulse 2+ GI-tenderness in RUQ/epigastric area with palpation Assessment and plan: # Intractable RUQ/epigastric abdominal pain post ERCP Possible sphincter of Oddi dysfunction/spasm and concern for possible stent migration VS acute on chronic pancreatitis Chronic Pancreatitis likely secondary to alcohol use and gallstone. S/p multiple ERCPs with stent placement CTAP negative for acute pancreatitis changes. Lipase WNL LFTs normal Plan: Continue IV fluids with full liquid diet GI on board with plan for EGD +/- ERCP today to evaluate for stent migration Continue Dilaudid as needed for pain and monitor for respiratory depression given high risk drug Continue Zofran as needed for nausea. Continue Protonix Added gabapentin trial 300 mg BID # HTN: Improved control. Continue to monitor BP: 170/103 Temp: 36.6 ?C (97.9 ?F) Temp src: Oral Pulse: 73 Resp: 18 Oxygen Therapy: Supplemental oxygen O2 Therapy: Room Air SpO2: 96 % Disposition: To be determined Plan of care discussed with: Provider, RN, Patient Medication and Non-Pharmacologic VTE Prophylaxis/Anticoagulants 05/10/23 0230 activity - mobilize patient (nc,oh) SIGNATURE: Kimberly Page MD PATIENT NAME: Melva Kerns PAGER/CONTACT #: Team color pager Disclaimer: Portions of this note may have been generated using [employer] voice recognition software. Reasonable efforts were made to correct any dictation errors that resulted due to the programming of this software but some may still be present. Please note, the time of this note does not reflect the time I saw this patient today, but the time of this documentation. [facility] 05-10-2023 Note HNO ID: [id number] Author: Kimberly Page MD Service: Hospital Medicine Author Type: Physician Type: Progress Notes Filed: 05/10/2023 5:46 PM Note Text: DEPARTMENT OF HOSPITAL MEDICINE PROGRESS NOTE Hospital Medicine/Primary Attending: Kimberly Page MD NIGHT AND WEEKEND COVERAGE: After 7pm please page [phone] MEDICATIONS: Current Facility-Administered Medications Medication Dose Route Frequency HYDROmorphone (PF) 1 mg injection (DILAUDID) 1 mg INTRAVENOUS q [address] 40 mg tab(s) (PROTONIX) 40 mg ORAL DAILY (6 AM) NaCl 0.9% iv flush bag 20 mL INTRAVENOUS PRN NaCl 0.9% iv infusion 100 mL/hr INTRAVENOUS CONTINUOUS ondansetron 4 mg tab(s) (ZOFRAN) 4 mg ORAL q 6 H PRN Or ondansetron (PF) 4 mg injection (ZOFRAN) 4 mg INTRAVENOUS q 6 H PRN piperacillin-tazobactam iv piggyback 3.375 g in dextrose (iso-osmotic) 50 mL (ZOSYN) 3.375 g INTRAVENOUS q 6 H DATA: Diagnostic tests reviewed for today's visit: CBC, Coags, BMP, Mg, Phos Recent Labs 12/06/23 0401 WBC 8.93 HB 12.4 HCT 36.3 PLT 269 NA 139 K 3.6* CHLOR 103 CO2 24 BUN 8 CREAT 0.66 GLUC 110* CA 8.9 Liver Function, Amylase, AND Lipase Recent Labs 05/10/23 0401 TPROT 6.6 ALB 4.0 ALT 12 AST 14 ALKPHOS 104 TBILI 0.3 LIPASE 24 Cardiac Enzymes Glom Filtration Rate SRAVANTHI, and AA CARDIAC: No results for input(s): PBNP in the last 168 hours. Problem List Abdominal pain (POA: Status not on file) Essential hypertension (POA: Yes) Alcohol-induced chronic pancreatitis (HCC) (POA: Yes) Acute on chronic pancreatitis (HCC) (POA: Yes) PHYSICAL EXAM: BP 149/91 Pulse 84 Temp (Src) 98.1 (Oral) Resp 16 Ht 5' 4 (1.63m) Wt 138 lb 3.7 oz (62.7kg) SpO2 97% LMP 10/22/2022 BMI 23.72 kg/(m2). O2 Therapy: Room Air Follow up : Pt seen and examined at the bedside. Constitutional - Vitals as above, NAD Respiratory - Clear to auscultate both sides. No crackles, wheezes or rales, No labored breathing noted CVS- RRR, no murmur/gallop/rub, pulse 2+ GI-tenderness in RUQ/epigastric area Assessment and plan: # Intractable RUQ/epigastric abdominal pain post ERCP Possible sphincter of Oddi dysfunction/spasm and concern for possible stent migration Chronic Pancreatitis likely secondary to alcohol use and gallstone. S/p multiple ERCPs with stent placement CTAP negative for acute pancreatitis changes. Lipase WNL Continue IV fluids with full liquid diet GI on board with plan for EGD +/- ERCP on 05/11 to evaluate for stent migration Continue normal saline 100 cc/h Continue Dilaudid as needed for pain and monitor for respiratory depression given high risk drug Continue Zofran as needed for nausea. Continue Protonix # Hypokalemia: K3.6, adequately replaced. Follow with daily BMP # HTN: Elevated blood pressure can be secondary to uncontrolled pain. Monitor blood pressure after pain is controlled BP: 149/91 Temp: 36.7 ?C (98.1 ?F) Temp src: Oral Pulse: 84 Resp: 16 O2 Therapy: Room Air SpO2: 97 % Disposition: To be determined Plan of care discussed with: Provider, RN, Patient Medication and Non-Pharmacologic VTE Prophylaxis/Anticoagulants 05/10/23 0230 activity - mobilize patient (fl,oh) SIGNATURE: Kimberly Page MD PATIENT NAME: Melva Kerns PAGER/CONTACT #: Team color pager Disclaimer: Portions of this note may have been generated using [employer] voice recognition software. Reasonable efforts were made to correct any dictation errors that resulted due to the programming of this software but some may still be present. Please note, the time of this note does not reflect the time I saw this patient today, but the time of this documentation. [facility] 05-08-2023 Note HNO ID: [id number] Author: Augie Wood APRN.CRNA Service: Anesthesiology Author Type: Nurse Ed Special Education Teacher Type: Anesthesia Procedure Notes Filed: 05/08/2023 10:38 AM Note Text: ANESTHESIOLOGY PROCEDURE NOTE Airway General Information Procedure Start Time/Medication Administration: 05/08/2023 10:31 AM Patient location during procedure: OR Timeout Performed Pre-procedure: timeout performed Consent Obtained: Yes Patient identity confirmed: arm band, patient and family Staffing LOCK STITCH CHANNELER: Augie Wood APRN.LOCK STITCH CHANNELER Indications and Patient Condition Indications for airway management: anesthesia Preoxygenated: yes anesthesia circuit Method: asleep Cricoid Pressure: No Manual In-Line Stabilization: No Difficult Mask: No Final Airway Details Final airway type: endotracheal airway Final Endotracheal Airway: ETT Cuffed: yes Successful intubation technique: video laryngoscopy Devices used: Jimenez Endotracheal tube insertion site: oral Blade: Joleen Blade size: #3 ETT size (mm): 7.0 Measured from: lips Measurement (cm): 23 Placement verified by: chest auscultation and capnometry Cormack-Lehane Classification: grade I - full view of glottis Number of attempts at approach: 1 Failed airway: no Unrecognized esophageal intubation: no Airway not difficult SIGNATURE: Augie Wood APRN.LOCK STITCH CHANNELER PATIENT NAME: Melva Kerns DATE: May 08, 2023 TIME: 10:37 AM CSN: [id number] [facility] 05-08-2023 Hospital Discharge instructions Jenna Barriga MD - 05/08/2023 12:23 PM EST Regular diet preop meds f/u biopsies documented in this encounter [facility] 05-08-2023 Surgical operation note OPERATIVE/PROCEDURE REPORT LOG ID: [id number] SURGERY/PROCEDURE DATE: 05/08/2023 INCISION/PROCEDURE START TIME: 10:34 AM INCISION CLOSE/PROCEDURE END TIME: 11:59 AM SURGEON(S)/PROCEDURALIST(S) AND PARTS IDENTIFIER(S): Jenna Barriga MD - Proceduralist No Additional Staff SURGERY/PROCEDURE(S): Eus with fna ercp stent biliary removal biopsy via cold forceps stent placement 10 40 covered wall stent ANESTHESIA: General SURGERY/PROCEDURE DETAILS: see below PRE-OP/PRE-PROCEDURE DIAGNOSIS: abd pain abnormal imaging POST-OP/POST-PROCEDURE DIAGNOSIS: chronic pancreatitis with hi grade biliary stricture OPERATIVE/PROCEDURE REPORT LOG ID: [id number] Surgery/Procedure Date: 05/08/2023 Incision/Procedure Start Time: 10:34 AM Incision Close/Procedure End Time: 11:59 AM Surgeon(s)/Proceduralist(s) and Serology Teacher(s): JENNA BARRIGA MD No Additional Staff Procedure(s): Endoscopic Retrograde Cholangiopancreatography (ERCP) with plastic biliary stent removal biopsy of biliary stricture with cold biopsy forceps cytology brushing of biliary stricture placement of 10 40 covered wall stent Anesthesia: General Brief History: ongoing abd pain abnormal imaging Procedure Details: The patient was placed in the prone position on the fluoroscopy table. A bite block was placed and medications administered as above. The Olympus side-viewing duodenoscope was introduced into the oropharynx and we intubated the esophagus with ease. We proceeded down to the second part of the duodenum. The ampulla was visualized and appeared normal with no evidence of papillitis or trauma. Plastic biliary stent noted and removed via rat tooth forceps We were able to obtain access to the common bile duct (CBD) using a short-wire Dreamtome and wire-guided cannulation. Contrast injection confirmed placement fluoroscopically. I personally interpreted all fluoroscopy images. We then used a 9/12mm extraction balloon to sweep the CBD. . Occlusion cholangiogram was clear at the end of the case. The scope was then withdrawn and the patient tolerated the procedure well. The patient was given Indomethacin 100mg per rectum, at the end of the case. There is a hi grade 3cm in length distal biliary stricture that was biopsied brushed and stented Pre-Op/Pre-Procedure Diagnosis: Abnormal imaging chronic pancreatitis Post-Op/Post-Procedure Diagnosis: Hi grade distal biliary stricture Specimens: bile duct EBL: None Complications: None Recommendations:regular diet preop meds f/u pathology probable surgical intervention will be needed down the road I/primary surgeon/proceduralist performed the procedure with assistance. JENNA BARRIGA MD SIGNATURE: JENNA BARRIGA MD PATIENT NAME: Melva Kerns DATE: May 08, 2023 TIME: 2:07 PM PAGER/CONTACT #: [phone] ESTIMATED BLOOD LOSS: 0 ml SPECIMENS: pancreas bile duct IMPLANTABLE DEVICES: covered wall stent DRAINS: None COMPLICATIONS: None CLOSURE TECHNIQUE: Primary PARTICIPATION IN SURGERY/PROCEDURE: I/primary surgeon/proceduralist performed the procedure with assistance. SIGNATURE: Jenna Barriga MD PATIENT NAME: Melva Kerns DATE: May 08, 2023 TIME: 2:05 PM OPERATIVE/PROCEDURE REPORT LOG ID: [id number] SURGERY/PROCEDURE DATE: 05/08/2023 INCISION/PROCEDURE START TIME: 10:34 AM INCISION CLOSE/PROCEDURE END TIME: 11:59 AM SURGEON(S)/PROCEDURALIST(S) AND PARTS IDENTIFIER(S): Jenna Barriga MD - Proceduralist No Additional Staff SURGERY/PROCEDURE(S): eus with fna OPERATIVE/PROCEDURE REPORT LOG ID: [id number] Surgery/Procedure Date: 05/08/2023 Incision/Procedure Start Time: 10:34 AM Incision Close/Procedure End Time: 11:59 AM Surgeon(s)/Proceduralist(s) and Serology Teacher(s): JENNA BARRIGA MD Procedure(s): Endoscopic Ultrasound (EUS) and Fine Needle Aspiration (FNA) Esophagogastroduodenoscopy (EGD) Anesthesia: Monitored Anesthesia Care Brief History: abnormal imaging Procedure Details: The patient was placed in the left lateral decubitus position. A bite block was placed and medications administered as above. The Olympus gastroscope was used to intubate the oropharynx and esophagus with ease. We proceeded down to the second part of the duodenum. The duodenal mucosa and bulb appeared normal. . We then withdrew into the stomach and visualized a normal antrum and body. i. Retroflexion was performed and this showed a normal fundus and cardia. The squamocolumnar junction, GE junction and esophagus appeared normal. The scope was then withdrawn and the patient tolerated the procedure well. With the patient in the same position, the Olympuslinear echoendoscope was then used to intubate the oropharynx and esophagus with ease. We proceeded down to the posterior aspect of the gastric body. The aorta and celiac artery takeoff were visualized. The splenic vasculature appeared normal. The pancreatic parenchyma was visualized and had normal echogenicity. The pancreatic duct in the body was dilated and measured 4mm . There is evidence of cystic structures, masses or chronic pancreatitis. The pancreatic parenchyma was scanned down to the tail and appeared normal. We then advanced the scope to the duodenal bulb. The CBD had normal caliber, measuring 9mm with no evidence of intraductal stones. A normal stack sign was seen with normal portal vein, pancreatic duct and CBD. The scope was advanced to the second part of the duodenum. The ampullary view appeared normal. The uncinate process of the pancreas along with the SMA, aorta and SMV were normal. The scope was then withdrawn and the patient tolerated the procedure well. Chronic pancreatitis biliary stricture no overt mass lesion noted multiple calcifications PD dilated prominent branched ducts as well Pre-Op/Pre-Procedure Diagnosis: Chronic pancreatitis Post-Op/Post-Procedure Diagnosis: same Specimens: pancreas bileduct EBL: None Complications: None Recommendations: Follow up pathology/cytology Low fat diet preop meds ok probable surgical intervention in the near future I/primary surgeon/proceduralist performed the procedure with assistance. JENNA BARRIGA MD SIGNATURE: JENNA BARRIGA MD PATIENT NAME: Melva Kerns DATE: May 08, 2023 TIME: 2:12 PM PAGER/CONTACT #: [phone] ANESTHESIA: General SURGERY/PROCEDURE DETAILS: see below PRE-OP/PRE-PROCEDURE DIAGNOSIS: chronic pancreatitis POST-OP/POST-PROCEDURE DIAGNOSIS: Same as Preop ESTIMATED BLOOD LOSS: 0 ml SPECIMENS: pancreas IMPLANTABLE DEVICES: NONE DRAINS: None COMPLICATIONS: None CLOSURE TECHNIQUE: Primary PARTICIPATION IN SURGERY/PROCEDURE: I/primary surgeon/proceduralist performed the procedure with assistance. SIGNATURE: Jenna Barriga MD PATIENT NAME: Melva Kerns DATE: May 08, 2023 TIME: 2:12 PM documented in this encounter [facility] 05-08-2023 History and physical note HISTORY AND PHYSICAL EXAMINATION SERVICE DATE: 05/08/2023 SERVICE TIME: 8:08 AM PRIMARY CARE PHYSICIAN: No primary care provider on file. REASON FOR VISIT: The reason for this visit is To perform a comprehensive review of the patients past medical history, assess their current health status and obtain any additional testing required based on anesthesia guidelines. To assess and identify potential anesthesia problems, particularly those that may suggest potential complications or contraindications to the planned procedure. The patient has the following: ACTIVE PROBLEM LIST Panic Disorder Without Agoraphobia Pain in Joint, Lower Leg Anxiety State, Unspecified Pre-Op Examination Essential Hypertension Nicotine Dependence, Uncomplicated Alcohol Abuse Portal Vein Thrombosis Alcohol-Induced Chronic Pancreatitis (Hcc) Gerd (Gastroesophageal Reflux Disease) Subjective CHIEF COMPLAINT: Preoperative Examination HPI: Patient present to [facility] for the above procedure. Patient here for routine Upper GI Endoscopy screening. Patient has a history of chronic pancreatitis. She has previously had two biliary stents with the last one placed in January of 2023. Plan today was for an EGD with EUS, but due to the biliary stent plan has been changed slightly and patient will possibly have an ERCP today as well. Patient denies any N/V/D or constipation. Endorses chronic upper abdominal pain. Denies any melena, hematochezia, or hematemesis. Patient denies any other problems at this time. Denies any family history of Colon cancer or other Gastric ca. Patient agreed to planned procedure. METS: Climb a flight of stairs or walk up a hill (5.50 METs) Patient denies any chest pain or undue shortness of breath with the above physical activity. Patient denies any CP/SOB with above activity. PAST MEDICAL HISTORY Diagnosis Date Bile duct disease Blood clot in vein Essential hypertension NEGATIVE MEDICAL HISTORY PAST SURGICAL HISTORY Procedure Laterality Date DILATION & CURETTAGE DX&/THER NONOBSTETRIC Dilation & curettage, X-2 LIG/TRNSXJ FLP TUBE ABDL/VAG APPR UNI/BI Tubal ligation PLACEMENT, BILE DUCT STENT 2022 FAMILY HISTORY Problem Relation Age of Onset Diabetes Maternal Uncle Asthma Brother SOCIAL HISTORY: Social History Tobacco Use Smoking status: Every Day Packs/day: 1.00 Years: 30.00 Additional pack years: 0.00 Total pack years: 30.00 Types: Cigarettes Smokeless tobacco: Never Vaping Use Vaping Use: Never used Substance Use Topics Alcohol use: Not Currently Comment: sober since 12/2022 Drug use: No Prior to Admission medications as of 05/08/23 0816 Medication Sig Last Dose Taking traMADol (ULTRAM) 50 mg tablet Take by mouth. 05/07/2023 at 1700 Yes omeprazole (PRILOSEC) 40 mg capsule Take 1 capsule by mouth once daily for 21 days. 05/07/2023 Yes ibuprofen (MOTRIN) 800 mg tablet Take 800 mg by mouth every 6 hours as needed. 05/07/2023 at 0900 Yes enoxaparin (LOVENOX) 100 mg/mL syrg inject 0.9 milliliters subcutaneously every 24 hours HYDROcodone-acetaminophen (NORCO) 5-325 mg per tablet levoFLOXacin (LEVAQUIN) 750 mg tablet Take by mouth. wvgiqv-ruokjxgk-kemawil (CREON 24) 24,000-76,000 -120,000 unit delayed release capsule Take by mouth. lisinopril (ZESTRIL) 5 mg tablet Take by mouth. metoclopramide HCl (REGLAN) 5 mg tablet TAKE 1 TABLET BY MOUTH EVERY 6 HOURS 30 MINUTES BEFORE A MEAL NEEDED FOR NAUSEA AND VOMITING potassium chloride 20 mEq TbER prochlorperazine (COMPAZINE) 25 mg suppository Prochlorperazine (Compazine) 25 mg suppository Active 25 MG RC TWICE A DAY August 15, 2022 12:00am [employer] 3.4 gram/5.8 gram powd MIX 1 TBSP INTO AT LEAST 8 OZ OF WATER OR JUICE THREE TIMES A DAY SENNA PLUS 8.6-50 mg per tablet take 2 tablets by mouth twice a day for 30 DAYS sulfamethoxazole-trimethoprim (BACTRIM DS) 800-160 mg per tablet Take by mouth. tiZANidine (ZANAFLEX) 2 mg tablet Take by mouth. amLODIPine (NORVASC) 10 mg tablet Take 1 tablet by mouth once daily for 21 days. ondansetron orally disintegrating (ZOFRAN ODT) 4 mg disintegrating tablet Take 1 tablet by mouth as needed. benzonatate (TESSALON PERLE) 100 mg capsule Take 2 capsules by mouth three times daily as needed. Patient not taking: Reported on 12/12/2019 guaiFENesin (MUCINEX) 600 mg 12 hr tablet Take 2 tablets by mouth twice daily. Patient not taking: Reported on 04/29/2019 ketoconazole (NIZORAL) 2 % cream Apply 1 application to affected area once daily. Apply to rash and surrounding area Patient not taking: Reported on 04/29/2019 naproxen sodium (ALEVE) 220 mg cap Take by mouth as directed. Medication Comments documented by Gomez Mcgowan DO on 08/14/2012 at 1101. No daily medications Nataliya Gonzalez Lpn ALLERGIES No Known Allergies REVIEW OF SYSTEMS: PAIN ASSESSMENT: Pain Pain Level: 7 Acceptable level: 4 Pain Location: Abdomen-Right Upper Quadrant Pain Assessment: Assessment Description: Aching Duration: Intermittent Intervention/Comfort measure: Reposition, Relaxation Tool: Verbal (Numeric Rating or Visual Analog Scale) General: Denies fever, chills, and unexpected weight change. Neuro: Denies dizziness and headaches. Respiratory: Denies SOB. Cardiovascular: Denies CP and palpitations. GI: See HPI. : Denies dysuria. Endocrine: No history of diabetes or thyroid conditions. Hematology: Denies history of bleeding or clotting disorder. No known autoimmune disorders. Psych: Denies anxiety/depression. Musculoskeletal: Denies joint pain and swelling. Skin: Denies open sores and rashes. Objective PHYSICAL EXAM: VITALS: BP 141/93 Pulse 79 Temp (Src) 98.1 (Temporal) Resp 15 SpO2 98% LMP 10/22/2022 O2 Therapy: Room Air General: NAD. Cooperative. Skin: Skin is warm, no rashes, and no open sores. HEENT: Normocephalic. Cardiovascular: Normal S1 & S2. No murmur. Lungs: CTA Bilaterally. No respiratory distress. Abdomen: Soft. Pos BS x4quad Extremities: No edema. Neurological: Alert and oriented to person, place, and time. Pulses: radial pulses +2 Diagnostic tests reviewed for today's visit: Lab Value Units Date High Low HB No results within date range. HCT No results within date range. WBC No results within date range. PLT No results within date range. NA No results within date range. K No results within date range. GLUC No results within date range. BUN No results within date range. CREAT No results within date range. PTSEC No results within date range. INR No results within date range. APTT No results within date range. ALT No results within date range. AST No results within date range. TBILI No results within date range. TSH No results within date range. Lab Value Units Date High Low HCGQT No results within date range. UHCG No results within date range. HCG, BODY* No results within date range. Lab Value Units Date High Low ABORHD No results within date range. ABSCREEN No results within date range. No results found for: HBA1C Assessment/Plan Patient has the following medical conditions which may affect ivory-operative course Problem List Items Addressed This Visit Cardiovascular Essential hypertension - Primary Current Assessment & Plan No medication. Patient states that she has been taken off all her BP medications per her physician. Gastrointestinal Portal vein thrombosis Current Assessment & Plan Patient was previously on Lovenox. Patient states she has not be on for the last 3 months. GERD (gastroesophageal reflux disease) Current Assessment & Plan Omeprazole. Last dose taken yesterday. EGD today. Endocrinology Alcohol-induced chronic pancreatitis (HCC) Current Assessment & Plan EGD today. Possible ERCP today. Relevant Orders EGD - THERAPEUTIC, EUS, OR TUBE INTERVENTIONS Psychiatry Alcohol abuse Current Assessment & Plan Patient states she has been sober since December 2022. Patient states she used to drink vodka heavily daily. Other Pre-op examination Current Assessment & Plan see note for medical conditions which may affect ivory-operative course that were addressed at today's visit. Nicotine dependence, uncomplicated Current Assessment & Plan Current everyday cigarette smoker. 30 pack years. Patient states she smoked 6 cigarettes this morning prior to arrival for procedure. Diagnosis: Alcohol-induced chronic pancreatitis (HCC) [K86.0] Planned Procedure: EGD The Following Tests/Procedures Have Been Initiated: IV start and Maintenance fluid for the procedure. ANESTHESIA FINDINGS: Significant Anesthesia Considerations: None Planned Anesthetic: MAC I spent a total of 20 minutes on the date of the service which included preparing to see the patient, [id number] patient care, completing clinical documentation, and performing a medically appropriate examination. Instructions Given to Patient: Patient given verbal preop instructions and voices comprehension and compliance. SIGNATURE: Radha Sears APRN.CNP PATIENT NAME: Melva Kerns DATE: May 08, 2023 TIME: 7:48 AM PAGER/CONTACT #: documented in this encounter [facility] 04-20-2023 Miscellaneous Notes Patient is scheduled for 05/[address] Barriga *Tried to call patient yesterday 02/23/23 to inform her of a potential EUS day and time No VM was set up for patients phone, I will continue to try and get in contact with the patient. 02/24/23- spoke with patient this afternoon informed her we had a time this morning for a EUS at 10:30 am but since we were unable to get in contact with her she was unable to get it done today. Informed patient we will continue to look for Time for EUS and be in contact with her as soon as we get a date and time documented in this encounter [facility] 01-30-2023 Miscellaneous Notes Received referral from Dr. Trevino for Chronic Abdominal pain, pancreatitis. Confirmed with Radar Mechanic that we do not treat this patient. Spoke with patient and provided information and advised to follow backup with Dr. Trevino. Gertrudis Denton documented in this encounter [facility] 01-24-2023 Note HNO ID: [id number] Author: Cindy Jean LPN Service: ? Author Type: LICENSED NURSE Type: Progress Notes Filed: 01/24/2023 6:59 AM Note Text: Consultt o [facility] 01-24-2023 Miscellaneous Notes Called patient, no answer, no VM box to leave VM. Williams CHEEMA 01/23/23 3:15 pm: Patient called into office, verified by name and . Patient wants to know if there's anything that can be done for her abdominal pain. Reports that she has been taking tylenol and advil with no relief. Advised patient that I would speak with Dr. Trevino and return her call with any advisements. Patient voiced understanding. 01/23/23 4:49 pm: Message from Dr. Trevino: Patient will need referred to pain management. Williams CHEEMA documented in this encounter [facility] 01-24-2023 History of Present illness Narrative Consultt o documented in this encounter [facility] 01-20-2023 Miscellaneous Notes Smoking Cessation Navigation Outcome of contact: Left Message Comments: A voicemail has been left for this patient regarding Tobacco Cessation support options. If this patient has any further questions they can email us at or call us at [phone]. [employer] Support Analyst/Smoking Cessation Navigator: Sofya Dumont, [facility] ED documented in this encounter [facility] 01-18-2023 Note HNO ID: [id number] Author: Evelia Trevino MD Service: ? Author Type: Physician Type: Progress Notes Filed: 01/25/2023 9:39 PM Note Text: Evelia Trevino M.D. Surgical Oncology [address] [facility], [address] [place] [id number] SUBJECTIVE HPI Melva Kerns is a 42 year old female presenting for evaluation of a bile duct obstruction. Patient was seen at [facility] January 03, 2023. 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 She has been on anticoagulation for this. This was felt to be induced by alcohol. In the middle of December 2022 she did undergo an ERCP for biliary obstruction and was found to have a CBD stone. Sphincterotomy and stent was placed. At the beginning of January she did have increased abdominal pain and repeat ERCP was performed and found to have partial occlusion of her stent. Her old stent was removed and replaced with a new one. An MRI was performed on December 15, 2022 which demonstrated dilated bile duct as well as dilated pancreatic duct. There was some peripancreatic edema appreciated as well as some nodular fullness of the ampulla. There appeared to be worsening biliary dilatation from a previous MRI of July 2022. Given these findings patient was referred to surgery for further evaluation. Currently, patient reports upper abdominal pain radiating to the sides. No nausea or vomiting. No significant weight loss. She has normal bowel function. No fevers chills or sweats. Review of Systems Constitutional: Negative for malaise/fatigue and weight loss. HENT: Negative for sore throat. Eyes: Negative for blurred vision and double vision. Respiratory: Negative for cough, hemoptysis, shortness of breath and stridor. Cardiovascular: Negative for palpitations, claudication and leg swelling. Gastrointestinal: Positive for abdominal pain. Negative for blood in stool, nausea and vomiting. Genitourinary: Negative for dysuria, flank pain and hematuria. Musculoskeletal: Negative for falls, joint pain and myalgias. Skin: Negative for rash. Neurological: Negative for speech change, focal weakness and headaches. Endo/Heme/Allergies: Does not bruise/bleed easily. Psychiatric/Behavioral: Negative for depression and memory loss. The patient is not nervous/anxious. PAST MEDICAL HISTORY Diagnosis Date Bile duct disease Blood clot in vein Essential hypertension NEGATIVE MEDICAL HISTORY PAST SURGICAL HISTORY Procedure Laterality Date DILATION AND CURETTAGE DXAND/THER NONOBSTETRIC Dilation AND curettage, X-2 LIG/TRNSXJ FLP TUBE ABDL/VAG APPR UNI/BI Tubal ligation PLACEMENT, BILE DUCT STENT 2022 Social History Tobacco Use Smoking status: Every Day Packs/day: 1.00 Years: 8.00 Additional pack years: 0.00 Total pack years: 8.00 Types: Cigarettes Smokeless tobacco: Never Substance Use Topics Alcohol use: No Drug use: No FAMILY HISTORY Problem Relation Age of Onset Diabetes Maternal Uncle Asthma Brother The ROS, medical, surgical, family, and social history were reviewed by Evelia Trevino MD ALLERGIES No Known Allergies Current Outpatient Medications Medication Sig enoxaparin (LOVENOX) 100 mg/mL syrg inject 0.9 milliliters subcutaneously every 24 hours HYDROcodone-acetaminophen (NORCO) 5-325 mg per tablet levoFLOXacin (LEVAQUIN) 750 mg tablet Take by mouth. ejzpoy-dqfwbgcz-xcqtilm (CREON 24) 24,000-76,000 -120,000 unit delayed release capsule Take by mouth. lisinopril (ZESTRIL) 5 mg tablet Take by mouth. metoclopramide HCl (REGLAN) 5 mg tablet TAKE 1 TABLET BY MOUTH EVERY 6 HOURS 30 MINUTES BEFORE A MEAL NEEDED FOR NAUSEA AND VOMITING potassium chloride 20 mEq TbER prochlorperazine (COMPAZINE) 25 mg suppository Prochlorperazine (Compazine) 25 mg suppository Active 25 MG RC TWICE A DAY August 15, 2022 12:00am MULTIHEALTH FIBER 3.4 gram/5.8 gram powd MIX 1 TBSP INTO AT LEAST 8 OZ OF WATER OR JUICE THREE TIMES A DAY SENNA PLUS 8.6-50 mg per tablet take 2 tablets by mouth twice a day for 30 DAYS sulfamethoxazole-trimethoprim (BACTRIM DS) 800-160 mg per tablet Take by mouth. tiZANidine (ZANAFLEX) 2 mg tablet Take by mouth. traMADol (ULTRAM) 50 mg tablet Take by mouth. amLODIPine (NORVASC) 10 mg tablet Take 1 tablet by mouth once daily for 21 days. omeprazole (PRILOSEC) 40 mg capsule Take 1 capsule by mouth once daily for 21 days. ondansetron orally disintegrating (ZOFRAN ODT) 4 mg disintegrating tablet Take 1 tablet by mouth as needed. benzonatate (TESSALON PERLE) 100 mg capsule Take 2 capsules by mouth three times daily as needed. (Patient not taking: Reported on 12/12/2019 ) guaiFENesin (MUCINEX) 600 mg 12 hr tablet Take 2 tablets by mouth twice daily. (Patient not taking: Reported on 04/29/2019 ) ketoconazole (NIZORAL) 2 % cream Apply 1 application to affected area once (more content not included)... [facility] 01-18-2023 Nurse Note Bile duct obstruction. Lot of pain. See imaging scanned documents documented in this encounter [facility] 01-18-2023 History of Present illness Narrative Images from the original note were not included. Evelia Trevino M.D. Surgical Oncology [address] [facility], [address] [place] [address] SUBJECTIVE HPI Melva Kerns is a 42 year old female presenting for evaluation of a bile duct obstruction. Patient was seen at [facility] January 03, 2023. 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 She has been on anticoagulation for this. This was felt to be induced by alcohol. In the middle of December 2022 she did undergo an ERCP for biliary obstruction and was found to have a CBD stone. Sphincterotomy and stent was placed. At the beginning of January she did have increased abdominal pain and repeat ERCP was performed and found to have partial occlusion of her stent. Her old stent was removed and replaced with a new one. An MRI was performed on December 15, 2022 which demonstrated dilated bile duct as well as dilated pancreatic duct. There was some peripancreatic edema appreciated as well as some nodular fullness of the ampulla. There appeared to be worsening biliary dilatation from a previous MRI of July 2022. Given these findings patient was referred to surgery for further evaluation. Currently, patient reports upper abdominal pain radiating to the sides. No nausea or vomiting. No significant weight loss. She has normal bowel function. No fevers chills or sweats. Review of Systems Constitutional: Negative for malaise/fatigue and weight loss. HENT: Negative for sore throat. Eyes: Negative for blurred vision and double vision. Respiratory: Negative for cough, hemoptysis, shortness of breath and stridor. Cardiovascular: Negative for palpitations, claudication and leg swelling. Gastrointestinal: Positive for abdominal pain. Negative for blood in stool, nausea and vomiting. Genitourinary: Negative for dysuria, flank pain and hematuria. Musculoskeletal: Negative for falls, joint pain and myalgias. Skin: Negative for rash. Neurological: Negative for speech change, focal weakness and headaches. Endo/Heme/Allergies: Does not bruise/bleed easily. Psychiatric/Behavioral: Negative for depression and memory loss. The patient is not nervous/anxious. PAST MEDICAL HISTORY Diagnosis Date Bile duct disease Blood clot in vein Essential hypertension NEGATIVE MEDICAL HISTORY PAST SURGICAL HISTORY Procedure Laterality Date DILATION & CURETTAGE DX&/THER NONOBSTETRIC Dilation & curettage, X-2 LIG/TRNSXJ FLP TUBE ABDL/VAG APPR UNI/BI Tubal ligation PLACEMENT, BILE DUCT STENT 2022 Social History Tobacco Use Smoking status: Every Day Packs/day: 1.00 Years: 8.00 Additional pack years: 0.00 Total pack years: 8.00 Types: Cigarettes Smokeless tobacco: Never Substance Use Topics Alcohol use: No Drug use: No FAMILY HISTORY Problem Relation Age of Onset Diabetes Maternal Uncle Asthma Brother The ROS, medical, surgical, family, and social history were reviewed by Evelia Trevino MD ALLERGIES No Known Allergies Current Outpatient Medications Medication Sig enoxaparin (LOVENOX) 100 mg/mL syrg inject 0.9 milliliters subcutaneously every 24 hours HYDROcodone-acetaminophen (NORCO) 5-325 mg per tablet levoFLOXacin (LEVAQUIN) 750 mg tablet Take by mouth. cqlvxb-qkdidcbx-prekomg (CREON 24) 24,000-76,000 -120,000 unit delayed release capsule Take by mouth. lisinopril (ZESTRIL) 5 mg tablet Take by mouth. metoclopramide HCl (REGLAN) 5 mg tablet TAKE 1 TABLET BY MOUTH EVERY 6 HOURS 30 MINUTES BEFORE A MEAL NEEDED FOR NAUSEA AND VOMITING potassium chloride 20 mEq TbER prochlorperazine (COMPAZINE) 25 mg suppository Prochlorperazine (Compazine) 25 mg suppository Active 25 MG RC TWICE A DAY August 15, 2022 12:00am M[employer]IHE[employer] FIBER 3.4 gram/5.8 gram powd MIX 1 TBSP INTO AT LEAST 8 OZ OF WATER OR JUICE THREE TIMES A DAY SENNA PLUS 8.6-50 mg per tablet take 2 tablets by mouth twice a day for 30 DAYS sulfamethoxazole-trimethoprim (BACTRIM DS) 800-160 mg per tablet Take by mouth. tiZANidine (ZANAFLEX) 2 mg tablet Take by mouth. traMADol (ULTRAM) 50 mg tablet Take by mouth. amLODIPine (NORVASC) 10 mg tablet Take 1 tablet by mouth once daily for 21 days. omeprazole (PRILOSEC) 40 mg capsule Take 1 capsule by mouth once daily for 21 days. ondansetron orally disintegrating (ZOFRAN ODT) 4 mg disintegrating tablet Take 1 tablet by mouth as needed. benzonatate (TESSALON PERLE) 100 mg capsule Take 2 capsules by mouth three times daily as needed. (Patient not taking: Reported on 12/12/2019 ) guaiFENesin (MUCINEX) 600 mg 12 hr tablet Take 2 tablets by mouth twice daily. (Patient not taking: Reported on 04/29/2019 ) ketoconazole (NIZORAL) 2 % cream Apply 1 application to affected area once daily. Apply to rash and surrounding area (Patient not taking: Reported on 04/29/2019 ) naproxen sodium (ALEVE) 220 mg cap Take by mouth as directed. ibuprofen (MOTRIN) 800 mg tablet Take 800 mg by mouth every 6 hours as needed. No current facility-administered medications for this visit. OBJECTIVE BP 111/79 Pulse 112 Ht 162.6 cm (5' 4 ) Wt 55.3 kg (122 lb) LMP 10/22/2022 BMI 20.94 kg/m BMI 20.94 kg/(m^2) Physical Exam Constitutional: General: She is not in acute distress. HENT: Head: Normocephalic and atraumatic. Eyes: Pupils: Pupils are equal, round, and reactive to light. Neck: Thyroid: No thyromegaly. Trachea: No tracheal deviation. Cardiovascular: Rate and Rhythm: Normal rate and regular rhythm. Heart sounds: Normal heart sounds. Pulmonary: Effort: Pulmonary effort is normal. No respiratory distress. Breath sounds: Normal breath sounds. No stridor. Abdominal: General: There is no distension. Palpations: Abdomen is soft. Tenderness: There is abdominal tenderness (upper abdominal). Musculoskeletal: General: No deformity. Normal range of motion. Skin: General: Skin is warm and dry. Findings: No erythema or rash. Neurological: Mental Status: She is alert and oriented to person, place, and time. Psychiatric: Mood and Affect: Affect normal. Judgment: Judgment normal. ASSESSMENT AND PLAN Plan 42-year-old woman presenting with choledocholithiasis and common bile duct obstruction. This is in the setting of alcohol induced pancreatitis and possible chronic pancreatitis. I discussed these findings with the patient. She had some concerns for worsening masslike appearance on her MRI. Given all of these findings I recommended to patient that we proceed with a endoscopic ultrasound for evaluation of the head of her pancreas. I believe that this is likely all findings related to chronic pancreatitis but I want to ensure she does not have any mass in this area. I also advised patient that we can perform possibly a celiac plexus block for pain control at the same time. If she has no pancreatic mass or concerning findings then we may proceed with a cholecystectomy given her findings of choledocholithiasis as well. I also cautioned patient on any alcohol consumption and advised her that abstinence from alcohol would be advisable given her pancreatitis. I also discussed with patient smoking cessation. Answered all of her questions to her satisfaction. She will follow-up with me after evaluation. I spent a total of 45 minutes on the date of the service which included preparing to see the patient, completing clinical documentation, performing a medically appropriate examination, counseling and educating the patient/family/caregiver, ordering medications, tests, or procedures, and independently interpreting results (not separately reported). Evelia Trevino MD 01/18/2023 8:41 AM documented in this encounter [facility] 01-06-2023 Miscellaneous Notes Patient called into office, verified by name and . Received FC until April. Scheduled OV with Dr. Trevino on 01/18/23. Williams CHEEMA Received faxed referral from Dr. Salamanca at [facility] for patient to be seen for dx: Alcohol induced Pancreatitis, with obstruction of bile duct. Called patient, verified by name and . Patient states she does not currently have insurance. Patient given phone number to call to get authorization/Financial Clearance prior to being able to schedule appointment. Patient voiced understanding and stated she would call. Williams CHEEMA documented in this encounter [facility] 10-28-2022 Note HNO ID: [id number] Author: Deonna Hathaway PA-C Service: ? Author Type: Physician Serology Teacher Type: Progress Notes Filed: 10/28/2022 11:41 AM Note Text: This note was created using [employer]. Subjective Melva Kerns is a 42 year old female. HPI Patient presents with a rash on her hands and feet for 2 weeks. The rash on her feet is in between her toes and is itchy and she has peeling skin. She had been using soaks and had tried terbinafine for 2 days but had not noticed any improvement. She thinks she also tried Triamazole but was not sure. She is on Bactrim right now due to a UTI. She also notes that her hands feel itchy. She does not have a rash unless she scratches her hands and then she gets multiple small bumps on the hands which will fade. She denies history of eczema. Does not moisturize daily on her hands. She does use a lot of hand cloth printer. No other new exposures recently. No fever or chills. No sore throat. Review of Systems Constitutional: Negative. HENT: Negative. Respiratory: Negative. Gastrointestinal: Negative. Genitourinary: Negative. Musculoskeletal: Negative. Skin: Positive for rash. All other systems reviewed and are negative. PAST MEDICAL HISTORY Diagnosis Date NEGATIVE MEDICAL HISTORY Current Outpatient Medications Medication Sig Dispense Refill HYDROcodone-acetaminophen (NORCO) 5-325 mg per tablet levoFLOXacin (LEVAQUIN) 750 mg tablet Take by mouth. mlmddw-rxalbnul-xlkxarr (CREON 24) 24,000-76,000 -120,000 unit delayed release capsule Take by mouth. lisinopril (ZESTRIL) 5 mg tablet Take by mouth. metoclopramide HCl (REGLAN) 5 mg tablet TAKE 1 TABLET BY MOUTH EVERY 6 HOURS 30 MINUTES BEFORE A MEAL NEEDED FOR NAUSEA AND VOMITING potassium chloride 20 mEq TbER prochlorperazine (COMPAZINE) 25 mg suppository Prochlorperazine (Compazine) 25 mg suppository Active 25 MG RC TWICE A DAY August 15, 2022 12:00am MULTIHEALTH FIBER 3.4 gram/5.8 gram powd MIX 1 TBSP INTO AT LEAST 8 OZ OF WATER OR JUICE THREE TIMES A DAY SENNA PLUS 8.6-50 mg per tablet take 2 tablets by mouth twice a day for 30 DAYS sulfamethoxazole-trimethoprim (BACTRIM DS) 800-160 mg per tablet Take by mouth. tiZANidine (ZANAFLEX) 2 mg tablet Take by mouth. traMADol (ULTRAM) 50 mg tablet Take by mouth. ondansetron orally disintegrating (ZOFRAN ODT) 4 mg disintegrating tablet Take 1 tablet by mouth as needed. 12 tablet 1 enoxaparin (LOVENOX) 100 mg/mL syrg inject 0.9 milliliters subcutaneously every 24 hours triamcinolone acetonide (KENALOG) 0.1 % cream Apply 1 application to affected area three times daily for 7 days. Apply sparingly to area for rash/itching. 80 g 0 terbinafine HCl (LAMISIL) 1 % cream Apply to affected area twice daily for 14 days. 28 g 1 cetirizine (ZYRTEC) 10 mg tablet Take 1 tablet by mouth once daily for 14 days. 14 tablet 0 amLODIPine (NORVASC) 10 mg tablet Take 1 tablet by mouth once daily for 21 days. 21 tablet 0 omeprazole (PRILOSEC) 40 mg capsule Take 1 capsule by mouth once daily for 21 days. 21 capsule 0 benzonatate (TESSALON PERLE) 100 mg capsule Take 2 capsules by mouth three times daily as needed. (Patient not taking: Reported on 12/12/2019 ) 30 capsule 0 guaiFENesin (MUCINEX) 600 mg 12 hr tablet Take 2 tablets by mouth twice daily. (Patient not taking: Reported on 04/29/2019 ) 60 tablet 0 ketoconazole (NIZORAL) 2 % cream Apply 1 application to affected area once daily. Apply to rash and surrounding area (Patient not taking: Reported on 04/29/2019 ) 60 g 0 naproxen sodium (ALEVE) 220 mg cap Take by mouth as directed. ibuprofen (MOTRIN) 800 mg tablet Take 800 mg by mouth every 6 hours as needed. No current facility-administered medications for this visit. PAST SURGICAL HISTORY Procedure Laterality Date DILATION AND CURETTAGE DXAND/THER NONOBSTETRIC Dilation AND curettage, X-2 LIG/TRNSXJ FLP TUBE ABDL/VAG APPR UNI/BI Tubal ligation FAMILY HISTORY Problem Relation Age of Onset Diabetes Maternal Uncle Asthma Brother Social History Tobacco Use Smoking status: Every Day Packs/day: 1.00 Years: 8.00 Pack years: 8.00 Types: Cigarettes Smokeless tobacco: Never Substance Use Topics Alcohol use: No Drug use: No Objective BP 128/82 Pulse 118 Temp 36.7 ?C (98.1 ?F) (Tympanic) Resp 18 Wt 59.3 kg (130 lb 12.8 oz) LMP 10/22/2022 SpO2 97% Physical Exam Vitals reviewed. Constitutional: Appearance: Normal appearance. HENT: Head: Normocephalic and atraumatic. Musculoskeletal: Comments: Patient has peeling between the webspaces on her toes bilaterally on her feet. Consistent with athlete's foot. No sign of secondary cellulitis. No vesicles. No petechia or purpura. No erythema on the foot. Exam of the hands reveals dry appearing palms. When she scratches she gets small papular lesions with erythema that are raised. These do dissipate . She does have small area of the dry (more content not included)... [facility] 03-25-2022 Miscellaneous Notes Patient notified, verbalized understanding. Daniel Green Ma I refilled 3 weeks worth, enough until her appointment Cecelia Fontenot APRN.CNP Spoke with patient - medications have been updated. Please review and advise then will update patient. Patient was instructed to establish care with PCP for gastrointestinal issues by [facility]. They prescribed medication, however, it will run out prior to the scheduled appointment. Patient is requesting a refill request be sent by [facility]. She was made aware that she will need to keep her establishing appointment if the practice does decide to fill her prescriptions prior to seeing her. The patient voiced understanding. documented in this encounter [facility] 03-08-2021 Note . MICRO - Microbiology PROCEDURE: Urine Culture [*1] SOURCE: Urine, Clean Catch BODY SITE: COLLECTED DATE/TIME: 03/06/2021 00:34 EDT RECEIVED DATE/TIME: 03/06/2021 17:45 EDT START DATE/TIME: 03/06/2021 17:45 EDT FREE TEXT SOURCE: FINAL REPORTS Final Report [] Verified Date/Time/Personnel: 03/08/2021 11:01 EDT >100,000 cfu/ml Escherichia coli PRELIMINARY REPORTS Preliminary Report [] Verified Date/Time/Personnel: 03/07/2021 13:43 EDT >100,000 cfu/ml Escherichia coli TERRELL to follow SUSCEPTIBILITY RESULTS Escherichia coli Antibiotic TERRELL Dilut TERRELL Inter Ampicillin <=8 Susceptible Ampicillin/ <=4/2 Susceptible Sulbactam Aztreonam <=4 Susceptible Cefazolin <=2 Susceptible Ciprofloxacin <=0.25 Susceptible Ertapenem <=0.5 Susceptible Gentamicin <=2 Susceptible Imipenem <=1 Susceptible Levofloxacin <=0.5 Susceptible Meropenem <=1 Susceptible Nitrofurantoin <=32 Susceptible Trimethoprim/ <=0.5/9.5 Susceptible Sulfa Performing Locations *1: This test was performed at: [facility], [address] [place] [address], [facility] , [facility] ([place]) [facility] Diagnosis Alcohol-induced chronic pancreatitis (HCC)- Primary Chronic pancreatitis [facility] Diagnosis Essential hypertension- Primary Unspecified essential hypertension Alcohol-induced chronic pancreatitis (HCC) Chronic pancreatitis Pre-op examination Preoperative examination, unspecified Essential hypertension Unspecified essential hypertension Cigarette nicotine dependence without complication Tobacco use disorder Alcohol abuse Alcohol abuse, unspecified Portal vein thrombosis Gastroesophageal reflux disease, unspecified whether esophagitis present Gall bladder stones Calculus of gallbladder without mention of cholecystitis or obstruction Pre-op examination Preoperative examination, unspecified Nicotine dependence, uncomplicated Tobacco use disorder Portal vein thrombosis Alcohol abuse Alcohol abuse, unspecified GERD (gastroesophageal reflux disease) Esophageal reflux Alcohol-induced chronic pancreatitis (HCC) Chronic pancreatitis * Assessment & Plan Note - Radha Sears APRN.CNP - 05/08/2023 8:33 AM EST Associated Problem(s): Alcohol-induced chronic pancreatitis (HCC) EGD today. Possible ERCP today. * Assessment & Plan Note - Radha Sears APRN.CNP - 05/08/2023 8:32 AM EST Associated Problem(s): GERD (gastroesophageal reflux disease) Omeprazole. Last dose taken yesterday. EGD today. * Assessment & Plan Note - Radha Sears APRN.CNP - 05/08/2023 8:27 AM EST Associated Problem(s): Portal vein thrombosis Patient was previously on Lovenox. Patient states she has not be on for the last 3 months. * Assessment & Plan Note - Radha Sears APRN.CNP - 05/08/2023 8:26 AM EST Associated Problem(s): Alcohol abuse Patient states she has been sober since December 2022. Patient states she used to drink vodka heavily daily. * Assessment & Plan Note - Radha Sears APRN.CNP - 05/08/2023 8:25 AM EST Associated Problem(s): Nicotine dependence, uncomplicated Current everyday cigarette smoker. 30 pack years. Patient states she smoked 6 cigarettes this morning prior to arrival for procedure. * Assessment & Plan Note - Radha Sears APRN.CNP - 05/08/2023 8:01 AM EST Associated Problem(s): Essential hypertension No medication. Patient states that she has been taken off all her BP medications per her physician. * Assessment & Plan Note - Radha Sears APRN.CNP - 05/08/2023 7:49 AM EST Associated Problem(s): Pre-op examination see note for medical conditions which may affect ivory-operative course that were addressed at today's visit. [facility] Diagnosis Alcohol-induced chronic pancreatitis (HCC) Chronic pancreatitis [facility] Diagnosis Alcohol-induced chronic pancreatitis (HCC) Chronic pancreatitis [facility]* Diagnosis Nipple discharge- Primary Other sign and symptom in breast documented in this encounter [facility] note* Diagnosis Alcohol-induced chronic pancreatitis (HCC)- Primary Chronic pancreatitis documented in this encounter [facility] note* Diagnosis Acute on chronic pancreatitis (HCC)- Primary documented in this encounter [facility] for referral (narrative)* Outpatient Procedure (Routine) - Pending Review Specialty Diagnoses / Procedures Referred By Mathew t Referred To Contact [facility] Diagnoses Alcohol-induced chronic pancreatitis (HCC) Procedures EGD - THERAPEUTIC, EUS, OR TUBE INTERVENTIONS EGD INTRMURAL US NEEDLE ASPIRATE/BIOPSY ESOPHAGS Jenna Barriga MD [address] [facility] [address] [place] [address] [facility] [address] [place] [address] Referral ID Status Reason Start Date Expiration Date Visits Requested Visits Authorized [id number] Pending Review Auto-Generat ed Referral 05/08/2023 04/19/2024 1 1 [facility] for referral (narrative)* Outpatient Procedure (Routine) - Authorized Specialty Diagnoses / Procedures Referred By Contac t Referred To Contact [facility] Diagnoses Alcohol-induced chronic pancreatitis (HCC) Procedures EGD - THERAPEUTIC, EUS, OR TUBE INTERVENTIONS EGD INTRMURAL US NEEDLE ASPIRATE/BIOPSY ESOPHAGS Jenna Barriga MD [address] [facility] [address] [place] [address] [facility] [address] [place] [address] Referral ID Status Reason Start Date Expiration Date Visits Requested Visits Authorized [id number] Authorized Auto-Generate d Referral Patient Cleared - Qualified HCAP/501/FA 3 07/19/2023 99 99 [facility] for referral (narrative)* Diagnostic Procedure Only (Routine) - Pending Review Specialty Diagnoses / Procedures Referred By Contac t Referred To Contact [facility] Diagnoses Nipple discharge Procedures US BREAST LTD RIGHT US BREAST UNI REAL TIME WITH IMAGE LIMITED Celine Mabry APRN.CNP [address] [place] [address] [facility] [address] [place] [address] Referral ID Status Reason Start Date Expiration Date Visits Requested Visits Authorized [id number] Pending Review Auto-Generat ed Referral 07/26/2023 08/24/2024 1 1 [facility] for referral (narrative)* Outpatient Procedure (Routine) - Pending Review Specialty Diagnoses / Procedures Referred By Contac t Referred To Contact DIGESTIVE DISE[facility] Diagnoses Acute on chronic pancreatitis (HCC) Procedures ERCP ERCP ERCP DX COLLECTION SPECIMEN BRUSHING/WASHING Carlos Goodwin MD [address] [place] [address] [address] Referral ID Status Reason Start Date Expiration Date Visits Requested Visits Authorized [id number] Pending Review Auto-Generat ed Referral 08/01/2023 08/01/2024 1 1 [facility] for visit Narrative* Outpatient Procedure (Routine) - Authorized Specialty Diagnoses / Procedures Referred By Contac t Referred To Contact DIGEST[facility] DISEASE [facility] Diagnoses Alcohol-induced chronic pancreatitis (HCC) Procedures EGD - THERAPEUTIC, EUS, OR TUBE INTERVENTIONS EGD INTRMURAL US NEEDLE ASPIRATE/BIOPSY ESOPHAGS Jenna Barriga MD 1 [facility] [address] [place] [id number] [address] Referral ID Status Reason Start Date Expiration Date Visits Requested Visits Authorized [id number] Authorized Auto-Generate d Referral Patient Cleared - Qualified HCAP/501/FA 3 07/19/2023 99 99 [facility] Summary Purpose Family History No Family History Records FoundNo Family History Records FoundNo Family History Records FoundNo Family History Records Found Advance Directives No Advanced Directives Records FoundNo Advanced Directives Records FoundNo Advanced Directives Records FoundNo Advanced Directives Records Found Reason for Referral Specialty Diagnoses / Procedures Referred By Contac t Referred To Contact Pain Management Diagnoses Alcohol-induced chronic pancreatitis (HCC) Procedures CONSULT TO PAIN MGT Evelia Trevino MD 1 [place] [address] Referral ID Status Reason Start Date Expiration Date Visits Requested Visits Authorized [id number] Ref Not Required PCP Requested Referral 01/24/2023 01/24/2024 1 1 Specialty Diagnoses / Procedures Referred By Contac t Referred To Contact Gastroenterology Diagnoses Alcohol-induced chronic pancreatitis (HCC) Procedures CONSULT TO GASTROENTEROLOGY OFFICE/OUTPATIENT NEW HIGH MDM 60-74 MINUTES Evelia Trevino MD [address] [place] [address] Referral ID Status Reason Start Date Expiration Date Visits Requested Visits Authorized [id number] Pending Review PCP Requested Referral 01/18/2023 01/18/2024 1 1 Medications Administered Section Inactive Administered Medications - up to 3 most recent administrations Medication Order MAR Action Action Date Dose Rate Site fentaNYL 50 mcg/mL 50 mcg injection (SUBLIMAZE) 50 mcg, INTRAVENOUS, EVERY 5 MINUTES NEEDED, 2 doses, Starting on 05/08/23 at 1224, Until 05/08/23 at 1255, Moderate Pain (4-6) - Parenteral, FIRST LINE THERAPY, Every 5 minutes. Use if patient unable to tolerate oral therapy. Hold for respiratory rate less than 12 Max total dose: 100 mcg, Recovery or Phase I (only) Given 05/08/2023 12:55 PM EST 50 mcg Additional Source Comments INFORMATION SOURCE (unrecogn ized section and content) DATE CREATED AUTHOR AUTHOR'S ORGANIZ ATION 03/16/2021 [facility] ([place]) DATE CREATED AUTHOR AUTHOR'S ORGANIZ ATION 08/03/2023 [facility] DATE CREATED AUTHOR AUTHOR'S ORGANIZ ATION 08/04/2023 [facility] Source Comments (unrecognize d section and content) In the event this informatio n is protected by the Federal Confidentiality of Alcohol and Drug Abuse Patient Records regulations: The Federal rules restrict any use of the information to criminally investigate or prosecute any alcohol or drug abuse patient.[facility] the event this information is protected by the Federal Confidentiality of Alcohol and Drug Abuse Patient Records regulations: The Federal rules restrict any use of the information to criminally investigate or prosecute any alcohol or drug abuse patient.[facility] the event this information is protected by the Federal Confidentiality of Alcohol and Drug Abuse Patient Records regulations: The Federal rules restrict any use of the information to criminally investigate or prosecute any alcohol or drug abuse patient.[facility] Hospital[facility] the event this information is protected by the Federal Confidentiality of Alcohol and Drug Abuse Patient Records regulations: The Federal rules restrict any use of the information to criminally investigate or prosecute any alcohol or drug abuse patient.[facility] Hospital[facility] the event this information is protected by the Federal Confidentiality of Alcohol and Drug Abuse Patient Records regulations: The Federal rules restrict any use of the information to criminally investigate or prosecute any alcohol or drug abuse patient.[facility] Hospital[facility] the event this information is protected by the Federal Confidentiality of Alcohol and Drug Abuse Patient Records regulations: The Federal rules restrict any use of the information to criminally investigate or prosecute any alcohol or drug abuse patient.[facility] Hospital[facility] the event this information is protected by the Federal Confidentiality of Alcohol and Drug Abuse Patient Records regulations: The Federal rules restrict any use of the information to criminally investigate or prosecute any alcohol or drug abuse patient.[facility] Hospital[facility] the event this information is protected by the Federal Confidentiality of Alcohol and Drug Abuse Patient Records regulations: The Federal rules restrict any use of the information to criminally investigate or prosecute any alcohol or drug abuse patient.[facility] Hospital[facility] the event this information is protected by the Federal Confidentiality of Alcohol and Drug Abuse Patient Records regulations: The Federal rules restrict any use of the information to criminally investigate or prosecute any alcohol or drug abuse patient.[facility] Hospital[facility] the event this information is protected by the Federal Confidentiality of Alcohol and Drug Abuse Patient Records regulations: The Federal rules restrict any use of the information to criminally investigate or prosecute any alcohol or drug abuse patient.[facility] HospitalIn the event this information is protected by the Federal Confidentiality of Alcohol and Drug Abuse Patient Records regulations: The Federal rules restrict any use of the information to criminally investigate or prosecute any alcohol or drug abuse patient.[facility] HospitalIn the event this information is protected by the Federal Confidentiality of Alcohol and Drug Abuse Patient Records regulations: The Federal rules restrict any use of the information to criminally investigate or prosecute any alcohol or drug abuse patient.[facility] HospitalIn the event this information is protected by the Federal Confidentiality of Alcohol and Drug Abuse Patient Records regulations: The Federal rules restrict any use of the information to criminally investigate or prosecute any alcohol or drug abuse patient.[facility] HospitalIn the event this information is protected by the Federal Confidentiality of Alcohol and Drug Abuse Patient Records regulations: The Federal rules restrict any use of the information to criminally investigate or prosecute any alcohol or drug abuse patient.[facility] HospitalIn the event this information is protected by the Federal Confidentiality of Alcohol and Drug Abuse Patient Records regulations: The Federal rules restrict any use of the information to criminally investigate or prosecute any alcohol or drug abuse patient.[facility] HospitalIn the event this information is protected by the Federal Confidentiality of Alcohol and Drug Abuse Patient Records regulations: The Federal rules restrict any use of the information to criminally investigate or prosecute any alcohol or drug abuse patient.[facility] Reason for Visit (unrecogniz ed section and content) Reason Comments Appointment Referral from Dr. Fr luz Reason Comments Smoking Cessation Reason Comments Consult Obstructed bile duct Specialty Diagnoses / Procedures Referred By Mathew gaona Referred To Contact [facility] DEPARTMENT Diagnoses MEDICALLY NECESSARY APPTS Procedures NEW PATIENT VISIT LEVEL 1 MEDICALLY NECESSARY [place] [address] Referral ID Status Reason Start Date Expiration Date Visits Requested Visits Authorized [id number] Authorized Financial Clearance Required - Self Pay Patient Cleared - Qualified 100% FAS 01/05/2023 04/06/2023 99 99 Reason Comments Patient Question Reason Comments New Patient Reason Onset Date Comments Refill Request 07/17/2023 Reason Onset Date Comments Refill Request 07/24/2023 Reason Comments Follow Up Follow up block from Dr. Sighn it didn't work Reason Comments Procedure Care Teams (unrecognized sec tion and content) Industrial Controller Relationship Specialty Start Date End Date Vicenta Salamancakevin Andre [address] [place] [address] PCP - General Gastroenterology 01/18/23 Industrial Controller Relationship Specialty Start Date End Date Jadyn Jesenia Jes [address] [place] [address] [employer] Gastroenterology 01/24/23 Industrial Controller Relationship Specialty Start Date End Date Vicenta Salamancan Jes [address] [place] [address] PCP - General Gastroenterology 01/18/23 01/23/23 Industrial Controller Relationship Specialty Start Date End Date Jadyn Jeseniamuara Andre DO [address] [place] [address] [employer] Gastroenterology 01/24/23 Industrial Controller Relationship Specialty Start Date End Date Vicenta Salamancan JesDO [address] [place] [address] [employer] Gastroenterology 01/24/23 Industrial Controller Relationship Specialty Start Date End Date Jadyn Jeseniamaura Andre DO [address] [place] [address] [employer] Gastroenterology 01/24/23 Industrial Controller Relationship Specialty Start Date End Date Jadyn Jesenia JesDO [address] [place] [address] [employer] Gastroenter[facility] 01/24/23 Industrial Controller Relationship Specialty Start Date End Date Jesenia Salamanca DO [address] [place] [address], [place] [id number] [employer] Gastroenter[facility] 01/24/23 Industrial Controller Relationship Specialty Start Date End Date Jesenia Salamanca DO [address] [place], [place] [address] [employer] Gastroenter[facility] 01/24/23 Industrial Controller Relationship Specialty Start Date End Date Jesenia Salamanca DO [address] [place], [place] [id number] [employer] Gastroenterology 01/24/23 Industrial Controller Relationship Specialty Start Date End Date Jesenia Salamanca DO [address], [place] [id number]- [employer] Gastroenterology 01/24/23 FOR RECORDS PERTAINING TO PATIENTS WHO ARE OR HAVE BEEN ENROLLED IN A CHEMICAL DEPENDENCY/SUBSTANCEABUSE PROGRAM, SOME INFORMATION MAY BE OMITTED. This clinical summary was aggregated from multiple sources. Caution should be exercised in using it in the provision of clinical care. This summary normalizes information from multiple sources, and as a consequence, information in this document may materially change the coding, format and clinical context of patient data. In addition, data may be omitted in some cases. CLINICAL DECISIONS SHOULD BE BASED ON THE PRIMARY CLINICAL RECORDS. [facility] [employer] [facility]. provides no warranty or guarantee of the accuracy or completeness of information in this document.
== END | disposition home or self-care (01) ==
LOC: LAB 16:42
PROVIDERS: Referring Provider Anesthesiology Pain Medicine; Visit Provider Anesthesiology Pain Medicine
DX: F11.90 Opioid use, unspecified, uncomplicated (principal)
CPT/HCPCS: 80307

== ENCOUNTER 2023-08-10 17:31 | Emergency (ER) | payer MEDICAID, SELFPAY ==
[2023-08-10 17:32] VITALS: PULSE 62; RESP 16; TEMP 36.8; O2SAT 97; BMI 23.1
[2023-08-10 18:03] LABS: Absolute Lymphocyte Count 1.73 X10^3/uL (0.83-4.51); Absolute Neutrophil Count 7.7 X10^3/uL (2.0-7.7); Basophil# 0.04 X10^3/uL; Basophil% 0.4 % (0-1); Eosinophil# 0.12 X10^3/uL; Eosinophils% 1.2 % (0-5); Hematocrit 37.6 % (37-47); Hemoglobin 12.5 g/dL (12.0-15.0); Lymphocyte # 1.73 X10^3/ul (0.83-4.51); Lymphocyte % 16.9 % (19-41); Mean Corp Hgb Conc 33.2 g/dL (32-36); Mean Corpuscular Hgb 29.1 pg (27.0-32.0); Mean Corpuscular Volume 87.4 fL (81-99); Mean Platelet Vol. 9.3 fl (6.2-12.0); Monocyte% 5.8 % (0-10); NRBC Flagged by Analyzer 0 % (0-5); Neutrophil # 7.73 X10^3/uL (2.7-7.7); Neutrophil % 75.3 % (47-70); Platelet Count 321 K/mm3 (150-450); RBC Distribution Width CV 13.8 % (11.6-14.6); RBC Distribution Width SD 43.9 fl (35.1-43.9); White Blood Count 10.3 K/mm3 (4.4-11.0)
[2023-08-10 18:37] LABS: AST(SGOT) 33 U/L (15-37); Alanine Aminotransfer ALT/SGPT 40 U/L (13-56); Albumin, Serum 3.3 g/dL (3.2-5.0); Alkaline Phosphatase 131 U/L (45-117); Anion Gap 7 (5-15); BUN 9 mg/dL (7-18); BUN/Creat Ratio 10.8 RATIO (10-20); Calcium,Total 9.1 mg/dL (8.5-10.1); Chloride 107 mmol/L (98-107); Creatinine, Serum 0.84 mg/dL (0.55-1.02); EST Glomerular Filtration Rate 79 mL/min (>60); Est Glom Filt Rate - Afr Amer 95 mL/min (>60); Globulin 3.2 g/dL (2.2-4.2); Glucose 116 mg/dL (74-106); Potassium 3.7 mmol/L (3.5-5.1); Protein, Total 6.5 g/dL (6.4-8.2); Sodium Level 140 mmol/L (136-145)
[2023-08-10 19:44] VITALS: RESP 16
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
[2023-08-10 19:58] LABS: Lipase 25 U/L (13-75)
--- NOTE | 2023-08-10 20:12 | CT_ITS ---
STUDY: CT CHEST, ABDOMEN T PELVIS WITH CONTRAST REASON FOR EXAM: Female, 43 years old. Pain HAD ERCP TODAY-BILE DUCT STENT REMOVED AND FAILED PLACEMENT OF PANCREATIC STENT HX: PANCREATITIS, RADIATION DOSAGE (If Supplied By Facility): CTDIvol = ( 15.55 ) mGy, DLP = ( 700.24 ) mGycm TECHNIQUE: Transaxial imaging was performed following intravenous administration of IV 100mL Isovue-370. Multiplanar coronal and sagittal images were reformatted. Individualized dose optimization techniques were used for this CT. COMPARISON: February 07, 2023 FINDINGS: CHEST There is lower lung atelectasis. There is lingular consolidation. There is no demonstrated pleural abnormality. Normal heart and pericardium. Normal mediastinum. Normal hilar regions. Normal unenhanced pulmonary arteries. Normal aorta arch and descending thoracic aorta. Normal osseous structures. ABDOMEN There is pneumobilia. There is contrast in the gallbladder. There has been revision of stent in the common bile duct. There is heterogeneous density within the stent. Normal spleen. Normal pancreas. Normal bilateral adrenal glands. Normal right kidney. Normal left kidney. Normal visualized stomach. Normal small intestine. Normal colon. The appendix is visualized and appears normal. There is atherosclerotic calcification of the abdominal aorta, without a demonstrated aneurysm. Normal inferior vena cava. Normal retroperitoneum. Normal abdominal wall. Normal osseous structures. PELVIS Normal urinary bladder. Normal visualized small intestine. Normal visualized colon. There is mild pelvic fluid. There is no pelvic lymphadenopathy. There is 2.0 cm right ovarian cyst. Normal visualized uterus. Normal visualized pelvic arteries. Normal abdominal wall. Normal osseous structures. CT/CT Chest, Abd, Pel w/Contrast IMPRESSION: Pneumobilia and revision of biliary stent. Mild free fluid in the pelvis. Lingular infiltrate. Electronically Signed: Renan Miller MD at 21:41 EST ,
[2023-08-10] MEDS: Morphine 4 MG/ML Syringe IV ×2 (20:13→22:29)
[2023-08-10] MEDS: Ondansetron 4 MG/2 ML Vial IV (20:13)
[2023-08-10] MEDS: 0.9% Normal Saline (1000mL) 1,000 ML 999 ML IV (20:14)
[2023-08-10 20:26] LABS: Bacteria 0 SEEN /hpf (None Seen); Mucous, Urine 0 SEEN /hpf (<or=2+); Red Blood Cells-Urine 0 SEEN /hpf (0-5)
[2023-08-10 20:28] LABS: Color, Urine Yellow (Yellow); Glucose, Dipstick Normal (Normal); Ketone-Dipstick Negative (Negative); Leukocyte Esterase-Dipstick 25 /ul (Negative); Nitrite-Dipstick Negative (Negative); Occult Blood-Urine Negative /ul (Negative); Protein-Dipstick Negative (Negative); Urine Bilirubin Dipstick Negative (Negative); Urine Clarity Clear (Clear); Urine Urobilinogen Normal (Normal); Urine pH 6.5 (5.0 - 8.0)
[2023-08-10 20:33] LABS: Squamous Epithelial Cells - UA 0-5 SEEN /hpf (5-10); White Blood Cells 0-5 SEEN /hpf (0-5)
[2023-08-10 21:00] VITALS: BP 132/94; RESP 16
[2023-08-10] MEDS: Ketorolac 15 MG/ML Vial IV (21:09)
[2023-08-10 23:00] VITALS: PULSE 65; RESP 14; O2SAT 100
[2023-08-10 23:56] VITALS: BP 130/75; PULSE 78; RESP 12; TEMP 37; O2SAT 100
[2023-08-11] MEDS: HYDROmorphone 1 MG/ML Syringe IV
== END 2023-08-11 00:03 | disposition home or self-care (01) ==
PROVIDERS: Physician Assistant; Emergency Provider Emergency Medicine; Visit Provider Emergency Medicine
DX: K83.1 Obstruction of bile duct (principal); F17.200 Nicotine dependence, unspecified, uncomplicated; Z98.51 Tubal ligation status; R10.9 Unspecified abdominal pain
CPT/HCPCS: 71260; 74177; 80053; 81001; 83690; 85025; 96361; 96374; 96375; 96376; 99283; J7030; Q9967; A4216; J2405

== ENCOUNTER → 2023-08-24 | Outpatient (CLI) | payer MEDICAID, SELFPAY ==
[2023-08-24 14:53] LABS: Buprenorphine Drug Screen Negative (<10 ng/mL)
[2023-08-24 15:02] LABS: Amphetamine Urine VISTA NEGATIVE (<1000 ng/mL); Barbiturate Urine VISTA NEGATIVE (< 200 ng/mL); Benzodiazepine Urine VISTA NEGATIVE (< 200 ng/mL); Cocaine Urine VISTA NEGATIVE (< 300 ng/mL); Ecstacy Urine VISTA NEGATIVE (< 500 ng/mL); Methadone Urine VISTA NEGATIVE (< 300 ng/mL); PCP Urine VISTA NEGATIVE (< 25 ng/mL); THC Urine VISTA NEGATIVE (< 50 ng/mL); Vista UDS pH Range 5
== END | disposition home or self-care (01) ==
LOC: LAB 14:09
PROVIDERS: Referring Provider Anesthesiology Pain Medicine; Visit Provider Anesthesiology Pain Medicine
DX: F11.20 Opioid dependence, uncomplicated (principal)
CPT/HCPCS: 80307

== ENCOUNTER 2023-09-13 17:31 | Emergency (ER) | payer MEDICAID, SELFPAY ==
[2023-09-13 17:32] VITALS: BP 125/86; PULSE 88; RESP 18; TEMP 36.1; O2SAT 100; BMI 23.1
[2023-09-13 19:10] LABS: Absolute Lymphocyte Count 2.49 X10^3/uL (0.83-4.51); Absolute Neutrophil Count 3.8 X10^3/uL (2.0-7.7); Basophil# 0.07 X10^3/uL; Basophil% 0.9 % (0-1); Eosinophil# 0.25 X10^3/uL; Eosinophils% 3.4 % (0-5); Hematocrit 37.1 % (37-47); Hemoglobin 12.1 g/dL (12.0-15.0); Lymphocyte # 2.49 X10^3/ul (0.83-4.51); Lymphocyte % 33.7 % (19-41); Mean Corp Hgb Conc 32.6 g/dL (32-36); Mean Corpuscular Hgb 28.8 pg (27.0-32.0); Mean Corpuscular Volume 88.3 fL (81-99); Mean Platelet Vol. 9.6 fl (6.2-12.0); Monocyte# 0.74 X10^3/uL; NRBC Flagged by Analyzer 0 % (0-5); Neutrophil # 3.82 X10^3/uL (2.7-7.7); Neutrophil % 51.9 % (47-70); Platelet Count 264 K/mm3 (150-450); RBC Distribution Width CV 13.7 % (11.6-14.6); White Blood Count 7.4 K/mm3 (4.4-11.0)
[2023-09-13 19:21] LABS: Internal QC Validated? YES +Cl - CLEAR BKGD; Pregnancy, Serum, hCG Quali. NEGATIVE Negative
[2023-09-13 19:22] LABS: Bacteria 0 SEEN /hpf (None Seen); Mucous, Urine 0 SEEN /hpf (<or=2+); Red Blood Cells-Urine 0 SEEN /hpf (0-5); White Blood Cells 0 SEEN /hpf (0-5)
[2023-09-13 19:26] LABS: Color, Urine Yellow (Yellow); Glucose, Dipstick Normal (Normal); Ketone-Dipstick Negative (Negative); Leukocyte Esterase-Dipstick Negative /ul (Negative); Nitrite-Dipstick Negative (Negative); Occult Blood-Urine Negative /ul (Negative); Protein-Dipstick Negative (Negative); Urine Bilirubin Dipstick Negative (Negative); Urine Clarity Clear (Clear); Urine Urobilinogen Normal (Normal)
[2023-09-13 19:27] LABS: AST(SGOT) 13 U/L (15-37); Alanine Aminotransfer ALT/SGPT 17 U/L (13-56); Albumin, Serum 3.4 g/dL (3.2-5.0); Alkaline Phosphatase 96 U/L (45-117); Anion Gap 1 (5-15); BUN 13 mg/dL (7-18); BUN/Creat Ratio 16.4 RATIO (10-20); Calcium,Total 9.2 mg/dL (8.5-10.1); Chloride 105 mmol/L (98-107); Creatinine, Serum 0.79 mg/dL (0.55-1.02); EST Glomerular Filtration Rate 83 mL/min (>60); Est Glom Filt Rate - Afr Amer 101 mL/min (>60); Estimated Creatinine Clearance 78.47 ml/min; Globulin 3.5 g/dL (2.2-4.2); Glucose 111 mg/dL (74-106); Potassium 4.3 mmol/L (3.5-5.1); Protein, Total 6.9 g/dL (6.4-8.2); Sodium Level 137 mmol/L (136-145)
[2023-09-13 19:32] VITALS: BP 128/86; PULSE 68; RESP 14; O2SAT 98
--- NOTE | 2023-09-13 19:41 | CT_ITS ---
STUDY: CT ABDOMEN AND PELVIS WITH CONTRAST REASON FOR EXAM: Female, 43 years old. Abdominal pain RADIATION DOSAGE (If Supplied By Facility): CTDIvol = ( 5.82 ) mGy TECHNIQUE: Transaxial images were obtained from the dome of the diaphragm to the symphysis pubis without oral contrast. IV 100mL Isovue-370 was administered. Sagittal and coronal images were reconstructed. Individualized dose optimization techniques were used for this CT. COMPARISON: None. FINDINGS: The visualized lung bases are unremarkable. The visualized portions of the heart are within normal limits. Pneumobilia in the liver. Normal gallbladder. There is a biliary stent in place. Normal spleen. Mild ductal prominence in the pancreas. Normal bilateral adrenal glands. Normal right kidney. Normal left kidney. Normal visualized stomach. Normal small intestine. Fecal retention in the colon. The appendix is visualized and appears normal. Normal abdominal aorta. Normal inferior vena cava. Normal retroperitoneum. Normal urinary bladder. Mild pelvic fluid. Normal abdominal wall. Normal osseous structures. CT/Abdomen/Pelvis W IV Cont ONLY IMPRESSION: Pneumobilia in the liver. There is a biliary stent in place. Mild ductal prominence in the pancreas. Diffuse colonic fecal retention. Electronically Signed: Aaron Lamar DO at 21:00 EDT ,
[2023-09-13 19:43] LABS: Squamous Epithelial Cells - UA 0-5 SEEN /hpf (5-10)
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
[2023-09-13] MEDS: Ondansetron 4 MG/2 ML Vial IV (20:04)
[2023-09-13] MEDS: Morphine 4 MG/ML Syringe IV ×2 (20:04→21:34)
[2023-09-13] MEDS: 0.9% Normal Saline (1000mL) 1,000 ML 1000 ML IV (20:04)
[2023-09-13 20:06] VITALS: BP 120/75; PULSE 69; RESP 16; O2SAT 99
[2023-09-13 22:00] VITALS: BP 134/76
[2023-09-13 22:12] LABS: Lipase 59 U/L (13-75)
[2023-09-13 22:53] VITALS: BP 122/60; PULSE 89; RESP 16; TEMP 36.9; O2SAT 97
== END 2023-09-13 23:00 | disposition home or self-care (01) ==
PROVIDERS: Emergency Provider Emergency Medicine; Visit Provider Emergency Medicine
DX: R10.9 Unspecified abdominal pain (principal); F17.200 Nicotine dependence, unspecified, uncomplicated; I10 Essential (primary) hypertension; Z98.51 Tubal ligation status; Z96.89 Presence of other specified functional implants
CPT/HCPCS: 74177; 80053; 81001; 83690; 84703; 85025; 96361; 96374; 96375; 96376; 99283; J7030; Q9967; A4216; J2405

== ENCOUNTER → 2023-11-27 | Outpatient (CLI) | payer MEDICAID, SELFPAY ==
[2023-11-27 14:21] LABS: Amphetamine Urine VISTA NEGATIVE (<1000 ng/mL); Barbiturate Urine VISTA NEGATIVE (< 200 ng/mL); Benzodiazepine Urine VISTA NEGATIVE (< 200 ng/mL); Cocaine Urine VISTA NEGATIVE (< 300 ng/mL); Ecstacy Urine VISTA NEGATIVE (< 500 ng/mL); Methadone Urine VISTA NEGATIVE (< 300 ng/mL); PCP Urine VISTA NEGATIVE (< 25 ng/mL); THC Urine VISTA NEGATIVE (< 50 ng/mL); Vista UDS pH Range 6
== END | disposition home or self-care (01) ==
LOC: LAB 13:48
PROVIDERS: Visit Provider Anesthesiology Pain Medicine
DX: F11.20 Opioid dependence, uncomplicated (principal)
CPT/HCPCS: 80307

== ENCOUNTER 2024-01-13 04:24 | Emergency (ER) | payer MEDICAID, SELFPAY ==
[2024-01-13 04:24] VITALS: BP 156/99; PULSE 98; RESP 16; TEMP 36.9; O2SAT 98; BMI 22.3
--- NOTE | 2024-01-13 04:41 | CT_ITS ---
EXAM: CT ABDOMEN AND PELVIS WITH INTRAVENOUS CONTRAST CLINICAL INDICATION: Abdominal pain. TECHNIQUE: Helically acquired images were obtained of the abdomen and pelvis with intravenous contrast. This CT exam was performed using one or more of the following dose reduction techniques: automated exposure control, adjustment of the mA and/or kV according to patient size, and/or use of iterative reconstruction technique. CONTRAST: IV 100mL Isovue-370 RADIATION DOSE: CTDIvol = 10.28 mGy, DLP = 351.13 mGy-cm COMPARISON: CT chest, abdomen and pelvis with contrast 08/10/2023. FINDINGS: LOWER THORAX: Unremarkable. Lung bases are clear. No cardiomegaly. No significant pericardial effusion. ABDOMEN: LIVER: Unremarkable. Homogeneous. No focal mass. GALLBLADDER AND BILE DUCTS: Pneumobilia. Metallic wall stent extending from the CBD down to the duodenum. Small air-fluid level in size of the gallbladder. No calcified gallstones. No intra- or extrahepatic biliary ductal dilation. PANCREAS: Unremarkable. No focal cystic or solid mass. SPLEEN: Unremarkable. Normal size without focal cystic or solid mass. ADRENALS: Unremarkable. No nodules. KIDNEYS AND URETERS: Unremarkable. Normal renal size and position. No hydronephrosis. STOMACH AND BOWEL: Unremarkable. No stomach or bowel distention. No focal inflammatory change. No suspicious abnormalities of the stomach. Normal small bowel. No significant abnormality of the colon. PELVIS: APPENDIX: Normal appendix. BLADDER: Unremarkable. REPRODUCTIVE: Unremarkable as visualized. Normal anteverted uterus. No suspicious abnormality of the uterus and bilateral adnexal regions. ABDOMEN and PELVIS: INTRAPERITONEAL SPACE: Unremarkable. No ascites or other fluid collection. No free air. BONES/JOINTS: Unremarkable. No suspicious lytic or blastic abnormality. SOFT TISSUES: Unremarkable. No discrete abdominal or pelvic wall hernia. VASCULATURE: Unremarkable. Abdominal aorta is non-dilated. LYMPH NODES: Unremarkable. No enlarged lymph nodes. CT/Abdomen/Pelvis W IV Cont ONLY IMPRESSION: 1. Intact metallic Wallstent in the common bile duct down to the duodenum accounting for the pneumobilia and air-fluid level in size of the gallbladder fossa. 2. No suspicious acute abnormality in the abdomen and pelvis. 3. No significant interval change when compared to 08/10/2023. Electronically Signed: Baron Sanchez MD at 8:14 EDT ,
[2024-01-13] MEDS: 0.9% Normal Saline (1000mL) 1,000 ML 999 ML IV (04:55)
[2024-01-13] MEDS: Ondansetron 4 MG/2 ML Vial IV (04:55)
[2024-01-13] MEDS: HYDROmorphone 1 MG/ML Syringe IV ×3 (04:56→08:13)
[2024-01-13 04:58] LABS: Absolute Lymphocyte Count 2.87 X10^3/uL (0.83-4.51); Absolute Neutrophil Count 4.3 X10^3/uL (2.0-7.7); Basophil# 0.05 X10^3/uL; Basophil% 0.6 % (0-1); Eosinophil# 0.21 X10^3/uL; Eosinophils% 2.6 % (0-5); Lymphocyte # 2.87 X10^3/ul (0.83-4.51); Lymphocyte % 35.6 % (19-41); Mean Corp Hgb Conc 33.3 g/dL (32-36); Mean Platelet Vol. 9.8 fl (6.2-12.0); Monocyte# 0.59 X10^3/uL; Monocyte% 7.3 % (0-10); NRBC Flagged by Analyzer 0 % (0-5); Neutrophil # 4.32 X10^3/uL (2.7-7.7); Neutrophil % 53.5 % (47-70); Platelet Count 260 K/mm3 (150-450); RBC Distribution Width CV 13.8 % (11.6-14.6); RBC Distribution Width SD 43.8 fl (35.1-43.9); Red Blood Count 4.83 M/mm3 (4.2-5.4); White Blood Count 8.1 K/mm3 (4.4-11.0)
[2024-01-13 05:11] LABS: Internal QC Validated? YES +Cl - CLEAR BKGD; Pregnancy, Serum, hCG Quali. NEGATIVE Negative
[2024-01-13 05:19] LABS: AST(SGOT) 21 U/L (15-37); Alanine Aminotransfer ALT/SGPT 22 U/L (13-56); Albumin, Serum 3.6 g/dL (3.2-5.0); Alkaline Phosphatase 97 U/L (45-117); Anion Gap 5 (5-15); BUN 10 mg/dL (7-18); BUN/Creat Ratio 10.6 RATIO (10-20); Chloride 106 mmol/L (98-107); Creatinine, Serum 0.95 mg/dL (0.55-1.02); EST Glomerular Filtration Rate 68 mL/min (>60); Est Glom Filt Rate - Afr Amer 82 mL/min (>60); Estimated Creatinine Clearance 65.26 ml/min; Globulin 3.5 g/dL (2.2-4.2); Glucose 112 mg/dL (74-106); Lipase 36 U/L (13-75); Protein, Total 7.1 g/dL (6.4-8.2); Sodium Level 137 mmol/L (136-145)
[2024-01-13] MEDS: DiphenhydrAMINE 50 MG/ML Syringe 25 MG IV ×2 (05:46→08:14)
[2024-01-13 06:24] VITALS: BP 119/84; PULSE 78; RESP 16; O2SAT 98
--- NOTE | 2024-01-13 07:42 | ED.RN ---
notified of pt returning pain 02/12
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
[2024-01-13 08:00] VITALS: BP 117/67; PULSE 79; RESP 16; O2SAT 98
== END 2024-01-13 08:45 | disposition home or self-care (01) ==
PROVIDERS: Emergency Provider Emergency Medicine; Visit Provider Emergency Medicine
DX: R10.9 Unspecified abdominal pain (principal); K83.1 Obstruction of bile duct; F17.200 Nicotine dependence, unspecified, uncomplicated; G89.29 Other chronic pain; I10 Essential (primary) hypertension; Z87.19 Personal history of other diseases of the digestive system; Z96.89 Presence of other specified functional implants
CPT/HCPCS: 74177; 80048; 80076; 83605; 83690; 84703; 85025; 96361; 96374; 96375; 96376; 99283; J7030; Q9967; A4216; J2405

== ENCOUNTER 2024-04-10 08:16 | Observation (INO) | payer MEDICAID, SELFPAY ==
[2024-04-10] VITALS (12 sets, daily range): BP systolic 115–141; BP diastolic 58–93; PULSE 76–100; RESP 16–19; TEMP 36.1–37.1; O2SAT 96–100; BMI 22.6; BMI 20.9
--- NOTE | 2024-04-10 08:29 | CT_ITS ---
STUDY: CT ABDOMEN AND PELVIS WITH CONTRAST REASON FOR EXAM: Female, 43 years old. Stent yesterday in pancreatic duct RADIATION DOSAGE (If Supplied By Facility): CTDIvol = ( 8.70 ) mGy, DLP = ( 375.01 ) mGycm TECHNIQUE: Transaxial images were obtained from the dome of the diaphragm to the symphysis pubis without oral contrast. 100 ISOVUE 370 was administered. Sagittal and coronal images were reconstructed. Individualized dose optimization techniques were used for this CT. COMPARISON: Comparison is made with prior study dated January 13, 2024. FINDINGS: Mild increased markings at the lung bases suggestive of bibasilar atelectasis. The visualized portions of the heart are within normal limits. There is evidence of pneumobilia in keeping with the patient''s history of a pancreatic duct stent placement and the cannulation of the common bile duct. Normal gallbladder. The previously seen common bile duct stent has been removed. There is dilatation of the common bile duct measuring 1.4 cm down to the region of the ampulla of Vater. Normal spleen. Normal pancreas. Normal bilateral adrenal glands. Normal right kidney. Normal left kidney. Normal visualized stomach. Normal small intestine. Normal colon. The appendix is visualized and appears normal. There is scattered atherosclerotic calcification of the abdominal aorta, without a demonstrated aneurysm. Normal inferior vena cava. Normal retroperitoneum. Normal urinary bladder. Normal abdominal wall. Normal osseous structures. CT/Abdomen/Pelvis W IV Cont ONLY IMPRESSION: Status post placement of a pancreatic duct stent. Pneumobilia. Dilated common bile duct. The previously seen common bile duct stent as been removed. Electronically Signed: Christos Krause MD at 9:48 EST ,
[2024-04-10 08:30] LABS: Absolute Neutrophil Count 8.1 X10^3/uL (2.0-7.7); Basophil# 0.03 X10^3/uL; Basophil% 0.3 % (0-1); Eosinophil# 0.07 X10^3/uL; Eosinophils% 0.6 % (0-5); Hematocrit 38.4 % (37-47); Hemoglobin 12.7 g/dL (12.0-15.0); Mean Corp Hgb Conc 33.1 g/dL (32-36); Mean Corpuscular Hgb 29.7 pg (27.0-32.0); Mean Corpuscular Volume 89.7 fL (81-99); Mean Platelet Vol. 9.3 fl (6.2-12.0); Monocyte# 0.77 X10^3/uL; Monocyte% 6.4 % (0-10); NRBC Flagged by Analyzer 0 % (0-5); Neutrophil # 8.06 X10^3/uL (2.7-7.7); Neutrophil % 67.3 % (47-70); Platelet Count 289 K/mm3 (150-450); RBC Distribution Width CV 12.9 % (11.6-14.6); Red Blood Count 4.28 M/mm3 (4.2-5.4)
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
[2024-04-10] MEDS: Ondansetron 4 MG/2 ML Vial IV (08:34)
[2024-04-10] MEDS: Morphine 4 MG/ML Syringe IV ×2 (08:34→18:07)
[2024-04-10 08:46] LABS: Bacteria 0 SEEN /hpf (None Seen); Mucous, Urine 0 SEEN /hpf (<or=2+); Red Blood Cells-Urine 0 SEEN /hpf (0-5); White Blood Cells 0 SEEN /hpf (0-5)
[2024-04-10 08:48] LABS: ALB/GLOB Ratio 1.1 RATIO (0.9-2.4); AST(SGOT) 12 U/L (15-37); Alanine Aminotransfer ALT/SGPT 21 U/L (13-56); Albumin, Serum 3.8 g/dL (3.2-5.0); Alkaline Phosphatase 102 U/L (45-117); Anion Gap 6 (5-15); BUN 14 mg/dL (7-18); BUN/Creat Ratio 15.9 RATIO (10-20); Calcium,Total 8.8 mg/dL (8.5-10.1); Chloride 108 mmol/L (98-107); Creatinine, Serum 0.88 mg/dL (0.55-1.02); EST Glomerular Filtration Rate 74 mL/min (>60); Est Glom Filt Rate - Afr Amer 90 mL/min (>60); Estimated Creatinine Clearance 70.45 ml/min; Globulin 3.4 g/dL (2.2-4.2); Glucose 149 mg/dL (74-106); Lipase 115 U/L (13-75); Potassium 3.4 mmol/L (3.5-5.1); Protein, Total 7.2 g/dL (6.4-8.2); Sodium Level 141 mmol/L (136-145)
[2024-04-10 08:49] LABS: Color, Urine Yellow (Yellow); Glucose, Dipstick Normal (Normal); Ketone-Dipstick Negative (Negative); Leukocyte Esterase-Dipstick Negative /ul (Negative); Nitrite-Dipstick Negative (Negative); Occult Blood-Urine 10 /ul (Negative); Protein-Dipstick 15 mg/dl (Negative); Specific Gravity, Urine 1.015 (1.002-1.030); Urine Bilirubin Dipstick Negative (Negative); Urine Clarity Sl. Cloudy (Clear); Urine Urobilinogen Normal (Normal)
[2024-04-10 08:55] LABS: Squamous Epithelial Cells - UA 0-5 SEEN /hpf (5-10)
[2024-04-10 08:58] LABS: Internal QC Validated? YES +Cl - CLEAR BKGD; Pregnancy, Urine Negative Negative
[2024-04-10] MEDS: HYDROmorphone 1 MG/ML Syringe IV ×3 (10:49→15:23)
--- NOTE | 2024-04-10 11:54 | NURSING ---
ACCEPTED AT [facility] DR. SUNITA CHI, WAIT LISTED FOR BED
--- NOTE | 2024-04-10 13:51 | ED.RN ---
PER DR. LOPEZ, WE CAN COMPLETE THE SEPSIS SCREEN
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
[2024-04-10 20:36] LABS: Vitamin B12 520 pg/mL (211-911)
[2024-04-10 20:44] LABS: Magnesium 2.3 mg/dL (1.6-2.6)
--- NOTE | 2024-04-10 21:55 | NURSING ---
pt requesting pain meds upon admission to unit. No pain meds were ordered and Mc was contacted by this RN. Vistaril was ordered IM as Mc told this RN he is not ordering opiates. pt refused to take vistaril, stating I was told in ER I was going to get opiates up here for pain control since that's why I am admitted. pt wanting to leave AMA and I will just drive myself to [place] then. Education provided. AMA papers signed. pt took own IV out.
== END 2024-04-10 21:55 | disposition left against medical advice (07) ==
LOC: ED 12:05 → MS3 20:17
PROVIDERS: Admitting Provider Internal Medicine; Emergency Provider Emergency Medicine; Visit Provider Internal Medicine
DX: K85.90 Acute pancreatitis without necrosis or infection, unspecified (principal); E87.6 Hypokalemia; I10 Essential (primary) hypertension; G89.29 Other chronic pain; I81 Portal vein thrombosis; Z79.899 Other long term (current) drug therapy; F17.200 Nicotine dependence, unspecified, uncomplicated; Z76.5 Malingerer [conscious simulation]
CPT/HCPCS: 74177; 80053; 81001; 81025; 82607; 82746; 83690; 83735; 84100; 85025; 96374; 96375; 96376; 99221; 99284; Q9967; A4216; G0378; J2405

== ENCOUNTER 2024-05-25 13:36 | Emergency (ER) | payer MEDICAID, SELFPAY ==
[2024-05-25 13:37] VITALS: BP 111/69; PULSE 103; RESP 20; TEMP 36.1; O2SAT 100; BMI 22.6
--- NOTE | 2024-05-25 13:50 | CT_ITS ---
EXAM: CT ABDOMEN AND PELVIS WITH INTRAVENOUS CONTRAST CLINICAL INDICATION: abdominal pain TECHNIQUE: Helically acquired images were obtained of the abdomen and pelvis with intravenous contrast. This CT exam was performed using one or more of the following dose reduction techniques: automated exposure control, adjustment of the mA and/or kV according to patient size, and/or use of iterative reconstruction technique. CONTRAST: IV 100mL [id number]-370 COMPARISON: CT Abdomen Pelvis dated 08/10/2023 FINDINGS: LOWER THORAX: Bibasilar linear scarring/atelectasis. ABDOMEN: LIVER: Normal. Homogeneous. No focal mass. GALLBLADDER AND BILE DUCTS: Common bile duct measures 14 mm in maximum diameter proximally. There is also intrahepatic duct dilatation. The distal 4 cm of the common bile duct is narrowed consistent with stricture mass given the clinical history. No calcified gallstones. No gallbladder distention or wall edema. PANCREAS: Normal. No focal cystic or solid mass. SPLEEN: Normal. Normal size without focal cystic or solid mass. ADRENALS: Normal. No nodules. KIDNEYS AND URETERS: Normal. Normal renal size and position. No hydronephrosis. STOMACH AND BOWEL: Kosv-xh-xocgyccy stool burden within the large bowel. PELVIS: APPENDIX: Appendix is visualized and normal in appearance. BLADDER: Normal. REPRODUCTIVE: Normal-sized retroverted uterus. ABDOMEN and PELVIS: INTRAPERITONEAL SPACE: Normal. No ascites or other fluid collection. No free air. BONES/JOINTS: No suspicious lytic or blastic abnormality. SOFT TISSUES: Normal. No discrete abdominal or pelvic wall hernia. VASCULATURE: Normal. Abdominal aorta is non-dilated. LYMPH NODES: Normal. No enlarged lymph nodes. TUBES, LINES AND DEVICES: Previously noted endobiliary stent catheter has been removed. The catheter is present within the pancreatic duct at the level of the head and neck of the pancreas. No evidence of acute pancreatitis. Distal pancreatic duct is not enlarged. CT/Abdomen/Pelvis W IV Cont ONLY IMPRESSION: Dilated biliary tree secondary to distal common bile duct stricture. Electronically Signed: Leo Sanon MD at 16:34 EST ,
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
[2024-05-25] MEDS: Morphine 4 MG/ML Syringe IV (14:02)
[2024-05-25] MEDS: Ondansetron 4 MG/2 ML Vial IV (14:02)
[2024-05-25] MEDS: 0.9% Normal Saline (1000mL) 1,000 ML 999 ML IV (14:03)
[2024-05-25 14:13] LABS: Mucous, Urine 0 SEEN /hpf (<or=2+); Red Blood Cells-Urine 0 SEEN /hpf (0-5)
[2024-05-25 14:16] LABS: Absolute Lymphocyte Count 2.28 X10^3/uL (0.83-4.51); Absolute Neutrophil Count 4.7 X10^3/uL (2.0-7.7); Basophil# 0.05 X10^3/uL; Basophil% 0.6 % (0-1); Eosinophil# 0.27 X10^3/uL; Eosinophils% 3.4 % (0-5); Hematocrit 42.1 % (37-47); Hemoglobin 14.3 g/dL (12.0-15.0); Lymphocyte # 2.28 X10^3/ul (0.83-4.51); Lymphocyte % 28.8 % (19-41); Mean Corpuscular Hgb 29.4 pg (27.0-32.0); Mean Corpuscular Volume 86.6 fL (81-99); Mean Platelet Vol. 9.5 fl (6.2-12.0); Monocyte# 0.63 X10^3/uL; NRBC Flagged by Analyzer 0 % (0-5); Neutrophil # 4.67 X10^3/uL (2.7-7.7); Neutrophil % 58.9 % (47-70); Platelet Count 302 K/mm3 (150-450); RBC Distribution Width CV 12.9 % (11.6-14.6); RBC Distribution Width SD 40.9 fl (35.1-43.9); Red Blood Count 4.86 M/mm3 (4.2-5.4); White Blood Count 7.9 K/mm3 (4.4-11.0)
[2024-05-25 14:18] LABS: Color, Urine Yellow (Yellow); Glucose, Dipstick Normal (Normal); Ketone-Dipstick 5 mg/dl (Negative); Leukocyte Esterase-Dipstick 25 /ul (Negative); Nitrite-Dipstick Negative (Negative); Occult Blood-Urine Negative /ul (Negative); Protein-Dipstick 15 mg/dl (Negative); Specific Gravity, Urine 1.025 (1.002-1.030); Urine Bilirubin Dipstick Negative (Negative); Urine Clarity Clear (Clear); Urine Urobilinogen 1 mg/dl (Normal)
[2024-05-25 14:25] LABS: Internal QC Validated? YES +Cl - CLEAR BKGD; Pregnancy, Serum, hCG Quali. NEGATIVE Negative
[2024-05-25 14:26] LABS: AST(SGOT) 14 U/L (15-37); Alanine Aminotransfer ALT/SGPT 25 U/L (13-56); Albumin, Serum 3.8 g/dL (3.2-5.0); Alkaline Phosphatase 101 U/L (45-117); Anion Gap 5 (5-15); BUN 14 mg/dL (7-18); BUN/Creat Ratio 15.9 RATIO (10-20); Calcium,Total 9.3 mg/dL (8.5-10.1); Chloride 103 mmol/L (98-107); Creatinine, Serum 0.88 mg/dL (0.55-1.02); EST Glomerular Filtration Rate 74 mL/min (>60); Est Glom Filt Rate - Afr Amer 90 mL/min (>60); Estimated Creatinine Clearance 70.45 ml/min; Globulin 3.9 g/dL (2.2-4.2); Glucose 103 mg/dL (74-106); Lipase 39 U/L (13-75); Potassium 3.8 mmol/L (3.5-5.1); Protein, Total 7.7 g/dL (6.4-8.2); Sodium Level 136 mmol/L (136-145)
[2024-05-25 14:35] LABS: Bacteria 2+ /hpf (None Seen); Squamous Epithelial Cells - UA 5-10 SEEN /hpf (5-10)
[2024-05-25 14:36] LABS: White Blood Cells 0 SEEN /hpf (0-5)
[2024-05-25] MEDS: HYDROmorphone 1 MG/ML Syringe IV (15:19)
[2024-05-25 15:37] VITALS: BP 111/84; PULSE 63; RESP 18
== END 2024-05-25 17:01 | disposition home or self-care (01) ==
PROVIDERS: Nurse Practitioner; Emergency Provider Emergency Medicine; Visit Provider Emergency Medicine
DX: R10.9 Unspecified abdominal pain (principal); K83.1 Obstruction of bile duct; F17.200 Nicotine dependence, unspecified, uncomplicated; K59.00 Constipation, unspecified; I10 Essential (primary) hypertension; Z98.51 Tubal ligation status
CPT/HCPCS: 74177; 80048; 80076; 81001; 83605; 83690; 84703; 85025; 87086; 96361; 96374; 96375; 99283; Q9967; A4216; J2405

== ENCOUNTER 2025-02-06 16:58 | Emergency (ER) | payer MEDICAID, SELFPAY ==
[2025-02-06 16:59] VITALS: BP 114/81; PULSE 73; RESP 18; TEMP 37.1; O2SAT 98; BMI 22.8
[2025-02-06 17:16] LABS: Hematocrit 35.2 % (37-47); Hemoglobin 12.1 g/dL (12.0-15.0); Immature Granulocytes Count 0.010 X10^3/uL (0.0-0.0); Mean Corp Hgb Conc 34.4 g/dL (32-36); Mean Corpuscular Volume 85.6 fL (81-99); Mean Platelet Vol. 9.5 fl (6.2-12.0); NRBC Flagged by Analyzer 0 % (0-5); Platelet Count 270 K/mm3 (150-450); RBC Distribution Width CV 12.9 % (11.6-14.6); RBC Distribution Width SD 39.8 fl (35.1-43.9); Red Blood Count 4.11 M/mm3 (4.2-5.4); White Blood Count 6.1 K/mm3 (4.4-11.0)
[2025-02-06 17:54] LABS: Internal QC Validated? YES +Cl - CLEAR BKGD; Pregnancy, Serum, hCG Quali. NEGATIVE Negative; Record Kit Lot#, Serum Preg. 947241
[2025-02-06 18:20] LABS: AST(SGOT) 18 U/L (<=31); Alanine Aminotransfer ALT/SGPT 9 U/L (<=34); Albumin, Serum 4.2 g/dL (3.5-5.0); Alkaline Phosphatase 89 U/L (35-104); Anion Gap 10 (5-15); BUN 11 mg/dL (4-19); BUN/Creat Ratio 15.0 RATIO (10-20); Calcium,Total 9.3 mg/dL (7.6-11.0); Carbon Dioxide 26.1 mmol/L (21.0-32.0); Chloride 102 mmol/L (98-108); Estimated Creatinine Clearance 84.04 ml/min (50-250); Globulin 2.8 g/dL (2.2-4.2); Glucose 113 mg/dL (70-99); Lipase 205 U/L (13-75); Potassium 4.2 mmol/L (3.3-5.1)
[2025-02-06 18:25] VITALS: BP 123/82; PULSE 78; RESP 16; O2SAT 98
--- NOTE | 2025-02-06 19:12 | US_ITS ---
PROCEDURE: GALLBLADDER 02/06/2025 REASON FOR EXAM: PAIN TECHNIQUE: Procedure Code: USGB Modality: US Procedure: GALLBLADDER FINDINGS: Liver measures 14.6 cm. Echogenicity within normal limits. Portal flow is hepatopetal. No focal hepatic masses or intrahepatic ductal dilatation. Gallbladder length 4.9 cm. Normal wall thickness at 2 mm. No gallstones, sludge, or pericholecystic fluid. Sonographic Lindsay sign negative. Common bile duct measures 1.2 cm. Pancreas not visualized due to overlying gas. Right kidney measures 9.7 ??? 4.5 ??? 5.0 cm. Cortical thickness 1.5 cm. Echogenicity within normal limits. No calculi, masses, or hydronephrosis. US/Gallbladder IMPRESSION: Dilated common bile duct, there is clinical concern for obstruction consider MR [place]. Reading Location: [address]
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
--- NOTE | 2025-02-06 19:30 | CT_ITS ---
PROCEDURE: ABDOMEN/PELVIS W IV CONT ONLY 02/06/2025 REASON FOR EXAM: RUQ PAIN TECHNIQUE: Procedure Code: [id number] Modality: CT Procedure: ABDOMEN/PELVIS W IV CONT ONLY Coronal and Sagittal reconstruction series were provided. CONTRAST: 100 cc of Isovue 370 intravenous contrast. One or more dose reduction techniques were used (e.g., Automated exposure control, adjustment of the mA and/or kV according to patient size, use of iterative reconstruction technique. COMPARISON: CT abdomen and pelvis 05/25/2024 FINDINGS: Lung bases: Unremarkable. Liver: Normal size. No mass. Gallbladder: Stable dilatation of the common bile duct measuring 14 mm. The distal common bile duct tapers. Mild intrahepatic bile duct dilation. No calcified gallstones or gallbladder wall thickening. Spleen: Normal size. Pancreas: Redemonstrated dilatation of the main pancreatic duct measuring 6 mm. No definite pancreatic mass visualized. Adrenals: Unremarkable. Kidneys: Normal renal sizes. No hydronephrosis. Bladder: Unremarkable. Reproductive Organs: Normal uterine size and contour. Ovaries are unremarkable. Bowel: No bowel obstruction. Moderate colonic stool burden suggesting constipation. Appendix: Normal. Lymph nodes: Unremarkable. Vasculature: Moderate atherosclerotic calcifications of the abdominal aorta and its branches. No aneurysm. Peritoneum / Retroperitoneum: No free fluid or air. Bones: Unremarkable. No acute fractures. CT/Abdomen/Pelvis W IV Cont ONLY IMPRESSION: 1. Stable dilatation of the common bile duct measuring 14 mm with gradual dista l tapering. Mild intrahepatic bile duct dilation. Additional dilatation of the main pancreatic duct measuring 6 mm. 2. No other acute findings in the abdomen or pelvis as imaged. Reading [facility]
[2025-02-06 19:48] LABS: Mucous, Urine 0 SEEN /hpf (<or=2+)
[2025-02-06 20:13] VITALS: BP 122/83; PULSE 72; RESP 14; O2SAT 98
[2025-02-06 20:26] LABS: Color, Urine Straw (Yellow); Glucose, Dipstick Normal (Normal); Ketone-Dipstick Negative (Negative); Leukocyte Esterase-Dipstick Negative /ul (Negative); Nitrite-Dipstick Negative (Negative); Occult Blood-Urine Negative /ul (Negative); Protein-Dipstick Negative (Negative); Specific Gravity, Urine 1.030 (1.002-1.030); Urine Bilirubin Dipstick Negative (Negative)
[2025-02-06 21:04] LABS: Red Blood Cells-Urine 0-5 SEEN /hpf (0-5); Squamous Epithelial Cells - UA 0-5 SEEN /hpf (5-10)
[2025-02-06] MEDS: HYDROmorphone 0.5 MG/0.5 ML SYRINGE IV (21:22)
[2025-02-06 21:23] VITALS: BP 122/83; PULSE 79; RESP 16; TEMP 37.1; O2SAT 96
== END 2025-02-06 21:46 | disposition home or self-care (01) ==
PROVIDERS: Emergency Provider Student in an Organized Health Care Education/Training Program; Visit Provider Student in an Organized Health Care Education/Training Program
DX: K85.90 Acute pancreatitis without necrosis or infection, unspecified (principal); I10 Essential (primary) hypertension; Z86.718 Personal history of other venous thrombosis and embolism; Z98.51 Tubal ligation status; F17.210 Nicotine dependence, cigarettes, uncomplicated
CPT/HCPCS: 74177; 76705; 80053; 81001; 83690; 84703; 85025; 99282; A4216; Q9967; 96374; 96376

== ENCOUNTER 2025-02-08 11:28 | Inpatient (IN) | payer MEDICAID, SELFPAY ==
[2025-02-08] VITALS (7 sets, daily range): BP systolic 106–119; BP diastolic 74–84; PULSE 65–84; RESP 15–16; TEMP 36.5–37.1; O2SAT 98–100; BMI 23.4; BMI 22.9
--- OUTSIDE RECORDS SUMMARY | 2025-02-08 12:05 | XMS RPT_ITS | CCD ---
Author Organization [facility] Care Team Providers Care Scalloper Name Role Phone TOLEDO, WILFRIDO C Unavailable Unavailable TOLEDO, WILFRIDO C Unavailable Unavailable TOLEDO, WILFRIDO C Unavailable Unavailable NO, DOCTOR ON Unavailable Unavailable NO, DOCTOR ON Unavailable Unavailable Care Physician, No Primary Primary Care Provider Unavailable Dr. Sal Cottrell Emergency Provider Dr. Karin Mckeon Admit Provider Dr. Karin Mckeon Attending Provider Dr. Karin Mckeon Other Provider Dr. Rafael Joseph Attending Provider Dr. Rafael Joseph Other Provider Dr. Charles Johansen Emergency Provider [phone] Dr. Rafael Joseph Admit Provider Dr. Gertrudis Eckert Other Provider Care Physician, No Primary Primary Care Provider Unavailable Dr. Rafael Joseph Attending Provider Dr. Rafael Joseph Other Provider Dr. Renea Velazquez Emergency Provider Dr. Alfonzo Grey Admit Provider Dr. Alfonzo Grey Attending Provider Dr. Alfonzo Grey Other Provider Dr. Soto Mg Attending Provider Dr. Soto Mg Other Provider Pcp, No Primary Care Provider Unavailabl e Care Physician, No Primary Primary Care Provider Unavailable Dr. Sal Cottrell Emergency Provider Dr. Jovanna Leonard Admit Provider Dr. Jovanna Leonard Attending Provider Dr. Jovanna Leonard Other Provider Dr. Chandler Salamanca Attending Provider [phone] Dr. Paul Duarte Attending Provider [phone] Jadyn, Dr. Arteaga Referring Provider [phone] Dr. Monika Crouch Attending Provider Dr. Monika Crouch Other Provider Dr. Jose Francisco Emmanuel Other Provider Dr. Lonnie Urena Other Provider Dr. Jose Antonio Krishnamurthy Other Provider Dr. René Read Other Provider Dr. Florentin Blanc Other Provider Unavailable Dr. Roberto Pagan Other Provider Dr. Jeovany Gilbert Other Provider Favian CART ATTENDANT, CART ATTENDANT-C Joan Other Provider Dr. Lonnie Urena Attending Provider Care Physician, No Primary Primary Care Provider Unavailable Dr. Sal Cottrell Emergency Provider Dr. Jovanna Leonard Admit Provider Dr. Jovanna Leonard Attending Provider Dr. Jovanna Leonard Other Provider Dr. Chandler Salamanca Attending Provider [phone] Dr. Monika Crouch Referring Provider Dr. Paul Duarte Attending Provider [phone] Chandler Salamanca Referring Provider [phone] Dr. Monika Crouch Attending Provider Dr. Monika Crouch Other Provider Dr. Jose Francisco Emmanuel Other Provider Dr. Lonnie Urena Other Provider Dr. Jose Antonio Krishnamurthy Other Provider Dr. René Read Other Provider Dr. Florentin Blanc Other Provider Unavailable Dr. Roberto Pagan Other Provider Dr. Jeovany Gilbert Other Provider Favian CART ATTENDANT, CART ATTENDANT-C Joan Other Provider Dr. Lonnie Urena Attending Provider Care Physician, No Primary Referring Provider Un available Care Physician, No Primary Primary Care Provider Unavailable Dr. Chandler Salamanca Attending Provider [facility], Dr. lFeming Attending Provider Care Physician, No Primary Primary Care Provider Unavailable Care Physician, No Primary Referring Provider Un available Pay, Dr. Joseph Emergency Provider Dr. Sal Cassidy Admit Provider Dr. Sal Cassidy Attending Provider Dr. Sal Cassidy Other Provider Dr. Chandler Salamanca Attending Provider Dr. Kourtney Cortez Attending Provider Care Physician, No Primary Primary Care Provider Unavailable Care Physician, No Primary Referring Provider [facility] Attending Provider Dr. Rafael Joseph Attending Provider Dr. Rafael Joseph Other Provider Dr. Cong Marquez Emergency Provider Dr. Caty Flynn Admit Provider Dr. Cayt Flynn Attending Provider Dr. Caty Flynn Other Provider Dr. Bisi Alas Attending Provider Dr. Bisi Alas Other Provider Unavailable Primary Care Provider Unavailabl e Chandler Salamanca DO Primary Care Provider Friend Chandler NEGRETE Unavailable Friend Chandler NEGRETE Primary Care Provider [phone] Care Physician, No Primary Primary Care Provider Unavailable Care Physician, No Primary Referring Provider Un available [place], Dr. Fleming Attending Provider Dr. Rafael Joseph Referring Provider Dr. Paul Duarte Attending Provider [phone] Paul Duarte Referring Provider Dr. Sal Cassidy Referring Provider Care Physician, No Primary Primary Care Provider Unavailable Care Physician, No Primary Referring Provider Un available [place], Dr. Fleming Attending Provider Dr. Caty Flynn Referring Provider Care Physician, No Primary Primary Care Provider Unavailable Pay, Dr. Joseph Emergency Provider Dr. Sal Cassidy Admit Provider Dr. Sal Cassidy Attending Provider Dr. Sal Cassidy Other Provider Dr. Chandler Salamanca Attending Provider [phone] Dr. Rafael Joseph Referring Provider FeliciaDr. Paul zamorano Attending Provider [phone] Paul Duarte Referring Provider [phone] Kourtney Crotez Attending Provider Dr. Rafael Joseph Attending Provider Dr. Rafael Joseph Other Provider Care Physician, No Primary Referring Provider Un available Dr. Lonnie Urena Attending Provider Dr. Cong Marquez Emergency Provider Dr. Caty Flynn Admit Provider Dr. Caty Flynn Attending Provider Dr. Caty Flynn Other Provider Dr. Sal Cassidy Referring Provider Dr. Bisi Alas Attending Provider Dr. Bisi Alas Other Provider Dr. Caty Flynn Referring Provider Care Physician, No Primary Primary Care Provider Unavailable Care Physician, No Primary Referring Provider Un available Dr. Evelia Degroot Attending Provider [phone] Dr. Evelia Degroot Referring Provider Care Physician, No Primary Primary Care Provider Unavailable Care Physician, No Primary Referring Provider Un available Zane, Dr. Miller Attending Provider Dr. Evelia Degroot Referring Provider Cong Marquez Attending Unavailable Care Physician, No Primary Primary Care Unava ilable Care Physician, No Primary Primary Care Unava ilable Sal Cottrell Attending Unavailable Jose Francisco Clark Attending Unavailable Care Physician, No Primary Primary Care Unava ilable Jose Francisco Clark Admitting Unavailable Care Physician, No Primary Primary Care Unava ilable James Wiley Attending Unavailable BasalIvana livingston Attending Unavailable Care Physician, No Primary Primary Care Unava ilable Baron Smith Attending Unavailable Care Physician, No Primary Primary Care Unava ilable Care Physician, No Primary Referring Unava ilable Care Physician, No Primary Primary Care Unava ilable Bartolo Hines Attending Unavailable Care Physician, No Primary Primary Care Unava ilable Otoniel, Ivana Attending Unavailable Otoniel, Ivana Referring Unavailable Care Physician, No Primary Primary Care Unava ilable Ivana Frederick Attending Unavailable Ivana Frederick Referring Unavailable Jose Francisco Clark Attending Unavailable Care Physician, No Primary Primary Care Unava ilable Jose Francisco Clark Admitting Unavailable Jose Francisco Clark Consulting Unavailable ROEL MOSLEY Attending Unavaila CARLOS Garcia Referring Unavailable CARLOS DAVIS Attending Unavailable CARLOS DAVIS Referring Unavailable EVELIA MAK Attending Unavailable ROEL MOSLEY Referring Unavaila ble ISSAK, ROEL CRESPO Attending Unavaila ble ISSAKROEL Referring Unavaila ble ISSAKROEL Attending Unavaila ble ISSAK, ROEL ZAK Referring Unavaila ble ISSAK, ANNALISAULFATAGeorge FANGUL Attending Unavaila ble ISSAK, LANDONATAGeorge FANGUL Referring Unavaila ble ISSAK, LANDONATAGeorge FANGUL Referring Unavaila ble ISSAK, LANDONATAGeorge FANGUL Attending Unavaila ble ISSAK, LANDONATAGeorge CRESPO Attending Unavaila ble ISSAK, LANDONATAGeorge FANGUL Referring Unavaila ble VIANCA CHAPPELL Attending Unavailable Care Physician, No Primary Primary Care Provider Unavailable Nelia TEMPLETON, Dr. Ross Emergency Provider Unavailab le Medications Current Medications Medication Drug Class(es) Dates Sig (Normalized) Sig (Original) acetaminophen 500 mg oral tablet (20 sources) Start: 05-12-2023 take 2 tablets by mouth every six hours acetaminophen (TYLENOL) 500 mg tablet Take 2 tablets by mouth every 6 hours. 05/12/2023 Active Start: 12-14-2022 take 1 tablet by aleah th every six hours as needed for pain Acetaminophen (Acetaminophen Extra Strength) 500 mg tablet Active 500 mg PO EVERY 6 HOURS as needed for pain December 14, 2022 12:00am Comment on above: Take 2 tablets by mo uth every 6 hours. acetaminophen 325 mg / HYDROcodone bitartrate 5 mg oral tablet (20 sources) Opioid Agonist Start: take 1 tablet by mouth every six hours as needed for pain Hydrocodone-Acetamino phen 5-325 mg tablet Active 1 {tbl} PO EVERY 6 HOURS NEEDED as needed for Pain 10 3 0 February 06, 2025 Pancreatitis Acute pancreatitis without necrosis or infection, unspecified Start: 12-29-2022 End: 01-02-2023 Hydrocodone-Acetaminophen 5- 325 mg tablet Discontinued 1 {tbl} PO EVERY 6 HOURS NEEDED as needed for Pain 10 3 0 December 29, 2022 January 02, 2023 12:32am Right upper quadrant abdominal pain Increased serum lipase level Right upper quadrant pain Abnormal levels of other serum enzymes Start: 12-29-2022 End: 01-02-2023 take 1 tablet by mouth every six hours as needed Hydrocodone-Acetaminophen Discontinued 1 TABLET PO EVERY 6 HOURS NEEDED 10 3 December 29, 2022 January 02, 2023 12:32am Start: 10-20-2022 End: 12-14-2022 Hydrocodone-Acetaminophen 5- 325 mg tablet Discontinued 1 {tbl} PO EVERY 4 HOURS NEEDED as needed for Pain 10 2 0 October 20, 2022 December 14, 2022 3:30pm Abdominal pain Unspecified abdominal pain Start: 10-20-2022 End: 12-14-2022 take 1 tablet by mouth every four hours as needed Hydrocodone-Acetaminophen Discontinued 1 TABLET PO EVERY 4 HOURS NEEDED 10 2 October 20, 2022 December 14, 2022 3:30pm Start: 10-20-2022 HYDROcodone-ac etaminophen (NORCO) 5-325 mg per tablet Start: 06-14-2013 End: 07-08-2013 Hydrocodone-Acetaminophen (V icodin 5-300 Mg Tablet) 1 EACH tablet Discontinued 1 - 2 {tbl} PO EVERY 4 HOURS NEEDED as needed for Pain June 14, 2013 1:00am July 08, 2013 11:00am 168 hr buprenorphine 0.02 mg/hr transdermal system (20 sources) Partial Opioid Agonist Start: 06-19-2024 apply 1 dose transdermal route every week BUTRANS 20 mcg/hour transdermal patch apply 1 patch topically to CLEAN, DRY, AND INTACT SKIN REMOVE AND REPLACE weekly 06/19/2024 Active Start: 01-13-2024 apply 20 ug transder mal route once daily Buprenorphine (Buprenorphine 20 Mcg/Hour Weekly Transdermal Patch) 20 mcg/hour patch weekly Active 1 NMA TOPICAL DAILY January 13, 2024 12:00am On Hold: MD Sherwood End: 07-03-2024 apply 1 dose transdermal route every week buprenorphine (BUTRANS) 15 mcg/hour patch Apply 1 Patch as directed one time a week. 07/03/2024 Discontinued [place] (Nk) (1 source) Start: 08-22-2021 [place] (Nk) Active August 22, 2021 12:00am oxyCODONE hydrochloride 5 mg oral tablet (20 sources) Opioid Agonist Start: 10-10-2024 End: 10-13-2024 take 1 tablet by mouth every eight hours as needed oxyCODONE IR (ROXICODONE) 5 mg immediate release tablet Indications: Pancreatic duct stricture (HCC) Take 1 tablet by mouth every 8 hours as needed for up to 3 days. 8 tablet 10/10/2024 9:31 AM EDT 10/10/2024 10/13/2024 Active Start: 07-18-2024 End: 07-21-2024 oxyCODONE IR (ROXICODONE) 5 mg immediate release tablet Indications: Alcohol-induced chronic pancreatitis (HCC) Take 1 tablet by mouth as needed for up to 3 days. 8 tablet 07/18/2024 10:21 AM EST 07/18/2024 07/21/2024 Active Start: 04-09-2024 End: 05-24-2024 take 1 tablet by mouth every six hours as needed for pain oxyCODONE IR (ROXICODONE) 5 mg immediate release tablet Indications: Alcohol-induced chronic pancreatitis (HCC) Take 1 tablet by mouth every 6 hours as needed for pain for up to 3 days. 12 tablet 05/21/2024 05/24/2024 Active Start: 08-10-2023 End: 01-13-2024 take 1 tablet by mouth every six hours Oxycodone 10 mg tablet Discontinued 10 mg PO EVERY 6 HOURS 8 2 0 August 10, 2023 January 13, 2024 4:59am Biliary stricture Intractable abdominal pain Obstruction of bile duct Unspecified abdominal pain Start: 08-08-2023 End: 08-15-2023 take 1 tablet by mouth every six hours as needed for pain oxyCODONE IR (ROXICODONE) 5 mg immediate release tablet Indications: Alcohol-induced acute pancreatitis, unspecified complication status Take 1 tablet by mouth every 6 hours as needed for pain for up to 7 days. 28 tablet 0 08/08/2023 08/15/2023 Active Start: 07-04-2023 End: 07-31-2023 take 1 tablet by mouth every six hours as needed for pain oxyCODONE IR (ROXICODONE) 5 mg immediate release tablet Indications: Alcohol-induced chronic pancreatitis (HCC) Take 1 tablet by mouth every 6 hours as needed for pain for up to 7 days. 28 tablet 0 07/17/2023 07/24/2023 Discontinued Start: 02-22-2023 End: 04-11-2023 take 1 tablet by mouth every six hours as needed for pain Oxycodone 5 mg tablet Discontinued 5 mg PO EVERY 6 HOURS as needed for pain 12 3 0 February 22, 2023 April 11, 2023 4:45am Abdominal pain Unspecified abdominal pain Start: 02-22-2023 End: 04-11-2023 take 1 capsule by mouth every six hours as needed for pain Oxycodone 5 mg capsule Discontinued 5 mg PO EVERY 6 HOURS as needed for pain 12 3 0 February 22, 2023 April 11, 2023 4:45am Intractable abdominal pain Unspecified abdominal pain Start: 12-21-2022 End: 01-02-2023 take 5-10 mg by mouth every six hours Oxycodone 5 mg Tablet Discontinued 5 - 10 mg PO EVERY 6 HOURS 15 4 0 December 21, 2022 January 02, 2023 12:32am Pancreatitis Acute pancreatitis without necrosis or infection, unspecified Start: 08-05-2022 take 10 mg by mouth every six hours as needed Oxycodone Active 10 MG PO EVERY 6 HOURS NEEDED 32 4 August 05, 2022 Start: 12-16-2021 take 5 mg by mouth e very six hours as needed for pain Oxycodone Active 5 MG PO EVERY 6 HOURS 30 5 December 16, 2021 5-10 mg every six hours as needed for pain Comment on above: Take 1 tablet by aleah th every 6 hours as needed for pain for up to 7 days. PHENobarbital 32.4 mg oral tablet (2 sources) Start: 2 Phenobarbital Active 32.4 MG PO THREE TIMES A DAY December 16, 2021 12:00am 1- 3 times a day for 2 days, then 1 twice a day for 2 days, then 1 daily until gone Do not drink alcohol while taking this medication polyethylene glycol 3350 [id number] mg / potassium chloride 2970 mg / sodium bicarbonate 6740 mg / sodium chloride 5860 mg / sodium sulfate 93952 mg powder for oral solution (1 source) Osmotic Laxative Start: 5 End: 5 peg 3350-Electrolytes (GOLYTELY) 236-22.74-6.74 -5.86 gram suspension Take 4,000 mL by mouth one time only for 1 dose. Refer to printed prep instructions from your provider. 4000 mL 07/03/2024 07/03/2024 Active sucralfate 100 mg/ml oral suspension (20 sources) Aluminum Complex Start: 2 End: 2 take 10 mL by mouth twice daily sucralfate (CARAFATE) 100 mg/mL suspension Take 10 mL by mouth twice daily for 21 days. 400 mL 0 03/25/2022 04/15/2022 Active Start: 01-04-2022 End: 07-28-2022 take 1 mL by mouth twice daily Sucralfate (Carafate) 1 00 mg/mL suspension Discontinued 10 mL PO TWICE A DAY 600 February 22, 2022 11:53am July 28, 2022 11:16am Comment on above: Take 10 mL by mouth twice daily for 21 days. Take 10 mL by mouth twice daily. Completed/Discontinued Medications Medication Drug Class(es) Dates Sig (Normalized) Sig (Original) acetaminophen 325 mg / oxyCODONE hydrochloride 5 mg oral tablet (6 sources) Opioid Agonist Start: 05-29-2023 End: 06-15-2023 Oxycodone-Acetami nophen (Percocet) 5-325 mg tablet Discontinued 1 {tbl} PO Q4H as needed for pain 20 5 May 29, 2023 June 15, 2023 2:26pm Acute mastitis of left breast Abscess of left breast Mastitis without abscess Abscess of the breast and nipple amLODIPine 5 mg oral tablet (20 sources) Dihydropyridine Calcium Channel Man Start: 12-21-2022 End: 02-22-2023 take 1 tablet by mouth once daily Amlodipine 5 mg Tablet Discontinued 5 mg PO DAILY December 21, 2022 12:00am February 22, 2023 12:56pm Start: 02-22-2022 End: 04-15-2022 take 1 tablet by mouth once daily amLODIPine (NORVASC) 10 mg tablet Take 1 tablet by mouth once daily for 21 days. 21 tablet 0 03/25/2022 Active Start: 02-22-2022 End: 08-05-2022 Amlodipine 10 mg Tablet Disc ontinued 10 mg PO DAILY February 22, 2022 12:00am August 05, 2022 3:45pm Hold for SBP less than 130 mmHg Comment on above: Take 1 tablet by aleah th once daily for 21 days. Take 10 mg by mouth once daily. amoxicillin 875 mg / clavulanate 125 mg oral tablet (20 sources) Penicillin-class Antibacterial Start: 06-14-2013 End: 07-08-2013 Amoxicillin-Pot Clavulanate 875 MG tablet Discontinued 1 {tbl} PO Q12H 20 June 14, 2013 1:00am July 08, 2013 11:01am amylase [id number] unt / lipase 29456 unt / protease 23884 unt delayed release oral capsule (20 sources) Start: 04-11-2023 End: 01-13-2024 Vrjotx-Hdttytcm-Iuldumu [Yukmqk-Nxjpgmhd-Cduxtv e 24,000-76,000-120,000 Unit Capsule,Delayed Rel] (Rxtcss-Kziruzpu-Kfkkft e 24,000-76,000-120,000 Unit ) 24,000-76,000 -120,000 unit capsule,delayed release(DR/EC) Discontinued 1 NMA PO THREE TIMES A DAY April 11, 2023 1:00am January 13, 2024 4:59am Start: 08-10-2022 lipase-proteas e-amylase (CREON 24) 24,000-76,000 -120,000 unit delayed release capsule Take by mouth. 0 08/10/2022 Active Start: 08-10-2022 End: 02-22-2023 take 35189-22518 capsules by mouth three times daily Bopsjo-Fpttitgc-Tcavpko (Creon) 24,000-76,000 -120,000 unit capsule,delayed release(DR/EC) Discontinued 1 NMA PO THREE TIMES A DAY December 14, 2022 12:00am February 22, 2023 12:57pm Comment on above: Take by mouth. benzonatate 100 mg oral capsule (10 sources) Non-narcotic Antitussive Start: 04-29-20 take 2 capsules by mouth every eight hours as needed for cough and cough benzonatate (TESSALON PERLE) 100 mg capsule Indications: Cough Take 2 capsules by mouth three times daily as needed. 30 capsule 0 04/29/2019 Active Comment on above: Take 2 capsules by m outh three times daily as needed. calcium chloride 0.0014 meq/ml / potassium chloride 0.004 meq/ml / sodium chloride 0.103 meq/ml / sodium lactate 0.028 meq/ml injectable solution (4 sources) Start: 10-11-19 End: 10-12-19 take 5-30 mL intravenously every hour 5-30 mL/hr, INTRAVENOUS, CONTINUOUS, Starting on Mon10/10/24 at 0900, Until Mon10/11/24 at 0415, Recovery or Phase I (only) Start: 05-21-2024 End: 05-22-2024 take 125 mL intravenously every hour 125 mL/hr, INTRAVENOUS, CONTINUOUS, Starting on Mon05/21/24 at 1030, Until Mon05/22/24 at 0413, Recovery or Phase I (only) Start: 12-05-2023 End: 12-06-2023 lactated ringers iv infusion ciprofloxacin 500 mg oral tablet (5 sources) Quinolone Antimicrobial Start: 06-02-2023 End: 06-12-2023 take 1 tablet by mouth twice daily Ciprofloxacin Hcl (Cipro) 500 mg tablet Discontinued 500 mg PO TWICE A DAY June 02, 2023 1:00am June 11, 2023 1:00am June 12, 2023 1:04am dicloxacillin 500 mg oral capsule (20 sources) Penicillin-class Antibacterial Start: 05-25-2023 End: 07-03-2024 take 1 capsule by mouth four times daily dicloxacillin (DYNAPEN) 500 mg capsule Take 1 capsule by mouth four times daily. 28 capsule 05/25/2023 07/03/2024 Discontinued Comment on above: Take 1 capsule by mo [facility] four times daily. dicyclomine hydrochloride 10 mg oral capsule (12 sources) Anticholinergic Start: 01-13-2024 End: 04-10-2024 take 2 capsules by mouth three times daily before mealtime Dicyclomine 10 mg capsule Discontinued 20 mg PO THREE TIMES DAILY BEFORE MEALS January 13, 2024 12:00am April 10, 2024 11:52am Start: 01-04-2023 End: 02-22-2023 take 1 tablet by mouth three times daily as needed for pain Dicyclomine 20 mg tablet Discontinued 20 mg PO THREE TIMES A DAY as needed for abdominal pain January 04, 2023 2:14pm February 22, 2023 12:56pm docusate sodium 50 mg / sennosides, retirement 8.6 mg oral tablet (20 sources) Start: 02-22-2022 End: 02-22-2023 Sennosides-Docusate Sodium (Stool Softener-Stimulant Laxat) 8.6-50 mg Tablet Discontinued 2 {tbl} PO TWICE A DAY as needed for constipation December 14, 2022 12:00am February 22, 2023 12:57pm Comment on above: take 2 tablets by mo [facility] twice a day for 30 DAYS 1 ml enoxaparin sodium 100 mg/ml prefilled syringe (20 sources) Low Molecular Weight Heparin Start: 12-29-2022 End: 02-22-2023 Enoxaparin (Lovenox) 100 mg/mL syringe Discontinued 60 mg SC Q24H December 29, 2022 10:35am February 22, 2023 12:56pm Start: 10-20-2022 inject 0.9 mL by sub cutaneous injection every twenty-four hours enoxaparin (LOVENOX) 100 mg/mL syrg inject 0.9 milliliters subcutaneously every 24 hours 0 10/20/2022 Active Start: 08-05-2022 End: 12-29-2022 Enoxaparin (Lovenox) 100 mg/ mL syringe Discontinued 90 mg SC Q24H October 20, 2022 8:48am December 29, 2022 10:35am Comment on above: inject 0.9 millilite rs subcutaneously every 24 hours 1 ml fentaNYL 0.05 mg/ml injection (9 sources) Opioid Agonist Start: 10-10-2024 End: 10-10-2024 50 mcg, INTRAVENOUS, EVERY 5 MINUTES NEEDED, 2 doses, Starting on Marta 10/10/24 at 0842, Until Marta 10/10/24 at 0859, FIRST LINE THERAPY for mild, moderate, or severe pain, Every 5 minutes. Use if patient unable to tolerate oral therapy. Hold for respiratory rate less than 12 Max total dose: 100 mcg, Recovery or Phase I (only) Start: 07-18-2024 End: 07-19-2024 50 mcg, INTRAVENOUS, EVERY 5 MINUTES NEEDED, 2 doses, Starting on Marta 07/18/24 at 0957, Until Mon07/19/24 at 0414, FIRST LINE THERAPY for mild, moderate, or severe pain, Every 5 minutes. Use if patient unable to tolerate oral therapy. Hold for respiratory rate less than 12 Max total dose: 100 mcg, Recovery or Phase I (only) Start: 05-21-2024 End: 05-21-2024 50 mcg, INTRAVENOUS, EVERY 5 MINUTES NEEDED, 2 doses, Starting on 05/21/24 at 1001, Until Tu05/21/24 at 1038, FIRST LINE THERAPY for pain score 1 or greater, Every 5 minutes. Use if patient unable to tolerate oral therapy. Hold for respiratory rate less than 12 Max total dose: 100 mcg, Recovery or Phase I (only) Start: 04-09-2024 End: 04-10-2024 50 mcg, INTRAVENOUS, EVERY 5 MINUTES NEEDED, 2 doses, Starting on Mon04/09/24 at 1041, Until Mon04/10/24 at 0416, SECOND LINE THERAPY for pain score 1 or greater, Every 5 minutes. Use if patient unable to tolerate oral therapy. Hold for respiratory rate less than 12 Max total dose: 100 mcg, Recovery or Phase I (only) Start: 12-05-2023 End: 12-05-2023 fentaNYL 50 mcg/mL 100 mcg i njection (SUBLIMAZE) Start: 12-05-2023 End: 12-05-2023 fentaNYL 50 mcg/mL 50 mcg in jection (SUBLIMAZE) Start: 12-05-2023 End: 12-05-2023 fentaNYL 50 mcg/mL 50 mcg in jection (SUBLIMAZE) gabapentin 100 mg oral capsule (20 sources) Anti-epileptic Agent Start: 09-20-2023 End: 07-03-2024 take 2 capsules by mouth once daily at bedtime gabapentin (NEURONTIN) 100 mg capsule Take 2 capsules by mouth daily at bedtime for 30 days. 60 capsule 09/20/2023 07/03/2024 Discontinued Start: 07-19-2023 End: 09-20-2023 take 3 capsules by mouth once daily at bedtime gabapentin (NEURONTIN) 100 mg capsule Take 3 capsules by mouth daily at bedtime for 30 days. 90 capsule 0 07/19/2023 09/20/2023 Discontinued Start: 05-12-2023 End: 07-03-2024 take 1 capsule by mouth once daily at bedtime gabapentin (NEURONTIN) 300 mg capsule Take 1 capsule by mouth daily at bedtime for 30 days. 30 capsule 05/12/2023 07/03/2024 Discontinued Comment on above: Take 1 capsule by mo uth daily at bedtime for 30 days. Take 3 capsules by m outh daily at bedtime for 30 days. 12 hr guaiFENesin 600 mg extended release oral tablet (10 sources) Start: 9 take 2 tablets by mouth twice daily guaiFENesin (MUCINEX) 600 mg 12 hr tablet Indications: Cough Take 2 tablets by mouth twice daily. 60 tablet 0 10/16/2018 Active Comment on above: Take 2 tablets by [facility] twice daily. 1 ml HYDROmorphone hydrochloride 2 mg/ml injection (20 sources) Opioid Agonist Start: End: 0.5 mg, INTRAVENOUS, EVERY 10 MINUTES NEEDED, 4 doses, Starting on Marta 10/10/24 at 0842, Until Mon10/11/24 at 0415, SECOND LINE THERAPY for mild, moderate, or severe pain, Every 10 minutes. Use if patient unable to tolerate oral therapy. Hold for respiratory rate less than 12 Max total dose: 2 mg Caution: IV hydromorphone is approximately 8 times MORE POTENT than IV morphine. For example, hydromorphone 1mg IV = morphine 8mg IV, Recovery or Phase I (only) Start: 04-09-2024 End: 04-10-2024 0.5 mg, INTRAVENOUS, EVERY 1 0 MINUTES NEEDED, 4 doses, Starting on Tu04/09/24 at 1001, Until Mon04/10/24 at 0416, [facility] THERAPY for pain score 1 or greater, Every 10 minutes. Use if patient unable to tolerate oral therapy. Hold for respiratory rate less than 12 Max total dose: 2 mg Caution: IV hydromorphone is approximately 8 times MORE POTENT than IV morphine. For example, hydromorphone 1mg IV = morphine 8mg IV, Recovery or Phase I (only) Start: 04-11-2023 End: 06-15-2023 take 1 tablet by mouth every four hours as needed for pain Hydromorphone 2 mg tablet Discontinued 2 mg PO Q4H as needed for pain 18 3 0 April 11, 2023 June 15, 2023 2:27pm Acute pancreatitis Acute pancreatitis without necrosis or infection, unspecified Start: 01-04-2023 End: 02-22-2023 take 1 tablet by mouth every four hours as needed for pain Hydromorphone 2 mg tablet Discontinued 2 mg PO Q4H as needed for pain 18 3 0 January 04, 2023 February 22, 2023 12:57pm Abdominal pain Biliary stricture Unspecified abdominal pain Obstruction of bile duct ibuprofen 200 mg oral tablet (20 sources) Nonsteroidal Anti-inflammatory Drug Start: 07-28-2022 End: 08-05-2022 Ibuprofen (Motrin Ib) 200 mg Tablet Discontinued 800 mg PO Q4H as needed for Pain July 28, 2022 1:00am August 05, 2022 3:45pm End: 07-03-2024 ibuprofen (MOTRIN IB ORAL) T angella by mouth. 07/03/2024 Discontinued ibuprofen (MOTRI N IB ORAL) Take by mouth. Active ibuprofen (MOTRI N IB ORAL) Take by mouth. 0 Active take 1 tablet by aleah th every six hours as needed ibuprofen (MOTRIN) 800 mg tablet Take 800 mg by mouth every 6 hours as needed. 0 Active Comment on above: Take 800 mg by mouth every 6 hours as needed. Take by mouth. indomethacin 50 mg rectal suppository (5 sources) Nonsteroidal Anti-inflammatory Drug Start: 10-11-19 End: 10-11-19 take 1 dose rectal route once 100 mg, RECTAL, ONCE, 1 dose, On Marta 10/10/24 at 0830, Dosing as directed for intraprocedural use only REFRIGERATE, Intraprocedure Start: 07-18-2024 End: 07-18-2024 take 1 dose rectal route once 100 mg, RECTAL, ONCE, 1 dose, On Marta 07/18/24 at 0930, REFRIGERATE, Intraprocedure Start: 05-21-2024 End: 05-21-2024 take 1 dose rectal route once 100 mg, RECTAL, ONCE, 1 dose, On 05/21/24 at 0930, REFRIGERATE, Intraprocedure Start: 04-09-2024 End: 04-09-2024 100 mg, RECTAL, DIRECTED, Starting on 04/09/24 at 0900, Until 04/09/24 at 1259, Dosing as directed for intraprocedural use only REFRIGERATE, Intraprocedure Start: 12-05-2023 End: 12-05-2023 indomethacin 100 mg supposit ory (INDOCIN) iv contrast (will be provide d with radiology test) (20 sources) Start: 09-20-2023 End: 07-03-2024 iv contrast (will be provide d with radiology test) MRI PANC/BRYAN Inject, intravenously, [...] in the MR contrast administration guidelines link. 1 Each 09/20/2023 07/03/2024 Discontinued Start: 09-20-2023 iv contrast (w ill be provided with radiology test) MRI PANC/BRYAN [...] in the MR contrast administration guidelines link. 1 Each 09/20/2023 Active Start: 09-20-2023 iv contrast (w ill be provided with radiology test) MRI PANC/BRYAN [...] in the MR contrast administration guidelines link. 1 Each 0 09/20/2023 Active Start: 05-24-2023 End: 07-03-2024 iv contrast (will be provide d with radiology test) MRI PANC/BRYAN Inject, intravenously, [...] in the MR contrast administration guidelines link. 1 Each 05/24/2023 07/03/2024 Discontinued Start: 05-24-2023 iv contrast (w ill be provided with radiology test) MRI PANC/BRYAN [...] in the MR contrast administration guidelines link. 1 Each 05/24/2023 Active Start: 05-24-2023 iv contrast (w ill be provided with radiology test) MRI PANC/BRYAN [...] in the MR contrast administration guidelines link. 1 Each 0 05/24/2023 Active Comment on above: MRI PANC/BRYAN Inject, intravenously, once for 1 [...] in the MR contrast administration guidelines link. ketoconazole 20 mg/ml topical cream (10 sources) Azole Antifungal Start: 10-16-2018 ketoconazole (NIZORAL) 2 % cream Apply 1 application to affected area once daily. Apply to rash and surrounding area 60 g 0 10/16/2018 Active Comment on above: Apply 1 application to affected area once daily. Apply to rash and surrounding area 1 ml ketorolac tromethamine 15 mg/ml injection (2 sources) Nonsteroidal Anti-inflammatory Drug, Cyclooxygenase Inhibitor Start: 04-09-2024 End: 04-09-2024 30 mg, INTRAVENOUS, ONCE, 1 dose, On Mon04/09/24 at 1100, Ketorolac (Toradol) is indicated for the short-term (up to 5 days) management of moderately severe acute pain. Continuation of ketorolac (Toradol) beyond 5 days increases the risk of developing serious adverse events. Please verify the duration of therapy for ketorolac (Toradol)., Recovery or Phase I (only) Start: 12-05-2023 End: 12-05-2023 keTORolac 15 mg injection (T oradol) lactulose 667 mg/ml oral solution (20 sources) Osmotic Laxative Start: 05-12-2023 End: 07-03-2024 lactulose 10 gram/15 mL solution Take 30 mL by mouth once daily as needed for up to 2 doses. 60 mL 05/12/2023 07/03/2024 Discontinued Comment on above: Take 30 mL by mouth once daily as needed for up to 2 doses. levoFLOXacin 750 mg oral tablet (10 sources) Quinolone Antimicrobial Start: 08-05-2022 levoFLOXacin (LEVAQUIN) 750 mg tablet Take by mouth. 0 08/05/2022 Active Comment on above: Take by mouth. lisinopril 20 mg oral tablet (20 sources) Angiotensin Converting Enzyme Inhibitor Start: 12-21-2022 End: 02-22-2023 take 1 tablet by mouth once daily Lisinopril 20 mg Tablet Discontinued 20 mg PO DAILY 30 0 December 21, 2022 12:00am February 22, 2023 12:57pm Start: 08-05-2022 End: 12-21-2022 take 1 tablet by mouth once daily Lisinopril 5 mg Tablet Discontinued 5 mg PO DAILY 30 30 August 05, 2022 1:00am December 21, 2022 11:40am BLOOD PRESSURE Comment on above: Take by mouth. metoclopramide 5 mg oral tablet (20 sources) Dopamine-2 Receptor Antagonist Start: 023 End: 023 take 1 tablet by mouth every six hours 30 minutes before mealtime for nausea and vomiting Metoclopramide Hcl 5 mg tablet Discontinued 5 mg PO EVERY 6 HOURS as needed for nausea and vomiting 60 0 August 10, 2022 1:00am December 14, 2022 3:28pm administer 30 minutes before meals Comment on above: TAKE 1 TABLET BY ALEAH TH EVERY 6 HOURS 30 MINUTES BEFORE A MEAL NEEDED FOR NAUSEA AND VOMITING naproxen sodium 220 mg oral capsule (10 sources) Nonsteroidal Anti-inflammatory Drug naproxen sodium (ALEVE) 220 mg cap Take by mouth as directed. 0 Active Comment on above: Take by mouth as dir ected. Nicotine (20 sources) Cholinergic Nicotinic Agonist Start: 024 End: 025 apply 1 dose transdermal route once daily Nicotine 21-14-7 mg/24 hr ptds Apply 1 Patch as directed once daily. 56 Patch 06/28/2023 07/03/2024 Discontinued Start: 06-28-2023 apply 1 dose transde rmal route once daily Nicotine 21-14-7 mg/24 hr ptds Apply 1 Patch as directed once daily. 56 Patch 06/28/2023 Active Start: 06-28-2023 apply 1 dose transde rmal route once daily Nicotine 21-14-7 mg/24 hr ptds Apply 1 Patch as directed once daily. 56 Patch 0 06/28/2023 Active Start: 06-28-2023 End: 07-28-2023 apply 1 dose transdermal route once daily Nicotine 21-14-7 mg/24 hr ptds Apply 1 Patch as directed once daily. 56 Patch 0 06/28/2023 07/28/2023 Active Comment on above: Apply 1 Patch as dir ected once daily. omeprazole 20 mg delayed release oral capsule (20 sources) Proton Pump Inhibitor Start: 3 End: take 1 capsule by mouth once daily Omeprazole 20 mg capsule,delayed release(DR/EC) Discontinued 20 mg PO DAILY April 11, 2023 1:00am January 13, 2024 4:59am Start: 10-26-2022 End: 02-22-2023 take 1 capsule by mouth once daily Omeprazole 20 mg capsule,delayed release(DR/EC) Discontinued 20 mg PO DAILY 30 October 26, 2022 12:00am February 22, 2023 12:57pm ACIF REFLUX Start: 01-04-2022 End: 07-03-2024 take 1 capsule by mouth once daily Omeprazole 40 mg capsule,delayed release(DR/EC) Discontinued 40 mg PO DAILY 30 February 22, 2022 11:53am October 26, 2022 4:45pm Comment on above: Take 1 capsule by [facility] once daily for 21 days. Take 40 mg by mouth once daily. ondansetron 4 mg disintegrating oral tablet (20 sources) Serotonin-3 Receptor Antagonist Start: 4 End: take 1 tablet by mouth every six hours as needed for nausea Ondansetron 4 mg tablet,disintegratin g Discontinued 4 mg PO EVERY 6 HOURS NEEDED as needed for Nausea 15 0 August 11, 2023 12:43am January 13, 2024 4:59am Start: 01-04-2022 End: 06-15-2023 take 1 tablet by mouth every eight hours as needed for nausea Ondansetron 4 mg tablet,disintegrating Discontinued 4 mg PO EVERY 8 HOURS NEEDED as needed for Nausea 10 0 April 11, 2023 1:00am June 15, 2023 2:27pm Comment on above: Take 1 tablet by aleah th as needed. Take 4 mg by mouth a s needed. potassium 99 mg extended release oral tablet (15 sources) Start: 2022 End: 2022 take 1 tablet by mouth once daily Potassium 99 mg tablet Discontinued 99 mg PO DAILY December 14, 2022 12:00am December 21, 2022 11:44am SUPPLEMENT potassium chloride 20 meq extended release oral tablet (20 sources) Start: 2022 End: 2022 take 1 tablet by mouth once daily Potassium Chloride 20 mEq tablet extended release Discontinued 20 meq PO DAILY 30 2 October 20, 2022 8:47am December 14, 2022 3:28pm prochlorperazine 25 mg rectal suppository (9 sources) Phenothiazine Start: 2022 prochlorperazine (COMPAZINE) 25 mg suppository Prochlorperazine (Compazine) 25 mg suppository Active 25 MG RC TWICE A DAY August 15, 2022 12:00am 0 08/15/2022 Active Comment on above: Prochlorperazine (Co mpazine) 25 mg suppository Active 25 MG RC TWICE A DAY August 15, 2022 12:00am psyllium 3400 mg powder for oral suspension (20 sources) Start: 2022 MULTIHEALTH FIBER 3.4 gram/5.8 gram powd MIX 1 TBSP INTO AT LEAST 8 OZ OF WATER OR JUICE THREE TIMES A DAY 0 08/05/2022 Active Start: 08-05-2022 End: 12-14-2022 Psyllium Husk (Metamucil) 3. 4 gram/5.4 gram powder Discontinued 1 tbsp PO THREE TIMES A DAY 660 0 August 05, 2022 1:00am December 14, 2022 3:29pm mix into at least 8 oz of water or juice before administering. OBTAIN OVERT THE COUNTER Start: 08-05-2022 End: 12-14-2022 Psyllium Husk (Metamucil) 3. 4 gram/5.4 gram powder Discontinued 1 tbsp PO THREE TIMES A DAY 660 August 05, 2022 1:00am December 14, 2022 3:29pm mix into at least 8 oz of water or juice before administering. OBTAIN OVERT THE COUNTER Comment on above: MIX 1 TBSP INTO AT L EAST 8 OZ OF WATER OR JUICE THREE TIMES A DAY 72 hr scopolamine 0.0139 mg/hr transdermal system (17 sources) Anticholinergic Start: 08-10-2022 End: 12-14-2022 Scopolamine Base 1 mg over 3 days patch 3 day Discontinued 1 NMA TD Every 3 Days as needed for nausea and vomiting 4 August 10, 2022 1:00am December 14, 2022 3:29pm Start: 08-10-2022 End: 12-14-2022 Scopolamine Base Discontinue d 1 PATCH TD Every 3 Days August 10, 2022 1:00am December 14, 2022 3:29pm sulfamethoxazole 800 mg / trimethoprim 160 mg oral tablet (20 sources) Dihydrofolate Reductase Inhibitor Antibacterial, Sulfonamide Antimicrobial Start: 10-20-2022 sulfamethoxazole-trimethopri m (BACTRIM DS) 800-160 mg per tablet Take by mouth. 0 10/20/2022 Active Start: 10-20-2022 End: 12-14-2022 Sulfamethoxazole-Trimethopri m 800-160 mg tablet Discontinued 1 {tbl} PO TWICE A DAY 14 October 20, 2022 12:00am December 14, 2022 3:29pm Start: 10-20-2022 End: 12-14-2022 take 1 tablet by mouth twice daily Sulfamethoxazole-Trimethoprim Discontinu ed 1 TABLET PO TWICE A DAY October 20, 2022 12:00am December 14, 2022 3:29pm Comment on above: Take by mouth. tiZANidine 2 mg oral tablet (10 sources) Central alpha-2 Adrenergic Agonist Start: 3 tiZANidine (ZANAFLEX) 2 mg tablet Take by mouth. 0 08/05/2022 Active Comment on above: Take by mouth. traMADol hydrochloride 50 mg oral tablet (20 sources) Opioid Agonist Start: End: take 1 tablet by mouth every six hours as needed for pain Tramadol 50 mg tablet Discontinued 50 mg PO EVERY 6 HOURS as needed for pain 30 0 August 10, 2022 1:00am January 02, 2023 12:32am Comment on above: Take by mouth. Problems Active Problems Problem Classification Problem Date Documented Da te Episodic/Chronic Administrative/social admission (1 source) Patient encounter status; Translations: [Encounter for pre-employment examination] 08-01-2024 Episodic Alcohol-related disorders (20 sources) Alcohol abuse; Translations: [Alcohol abuse, uncomplicated] Onset: 3 07-28-2022 Chronic Anxiety disorders (20 sources) Panic disorder without agoraphobia; Translations: [Panic disorder [episodic paroxysmal anxiety]] Onset: 6 10-29-2005 Chronic Biliary tract disease (20 sources) Biliary stricture; Translations: [Obstruction of bile duct] Onset: 4 01-04-2023 Chronic Biliary tract disease (18 sources) Biliary sludge; Translations: [Other specified diseases of gallbladder] 01-02-2023 Episodic Congestive heart failure; nonhypertensive (2 sources) Acute exacerbation of chronic congestive heart failure; Translations: [Heart failure, unspecified] 12-20-2022 Chronic Diseases of white blood cells (4 sources) Leukocytosis; Translations: [Elevated white blood cell count, unspecified] 07-28-2022 Chronic Esophageal disorders (20 sources) Gastroesophageal reflux disease; Translations: [Gastro-esophageal reflux disease without esophagitis] Onset: 3 05-08-2023 Chronic Essential hypertension (20 sources) Malignant hypertension; Translations: [Essential (primary) hypertension] Onset: 3 12-14-2022 Chronic Fluid and electrolyte disorders (20 sources) Hypokalemia; Translations: [Hypokalemia] Episodic Genitourinary symptoms and ill-defined conditions (17 sources) Bacteriuria; Translations: [Bacteriuria] 12-14-2022 Episodic Nausea and vomiting (4 sources) Nausea and vomiting; Translations: [Nausea with vomiting, unspecified] 07-28-2022 Episodic Nonmalignant breast conditions (20 sources) Inflammatory disorder of breast; Translations: [Mastitis without abscess] 03-07-2021 Episodic Other circulatory disease (1 source) Elevated blood-pressure reading without diagnosis of hypertension; Translations: [Elevated blood-pressure reading, without diagnosis of hypertension] 01-21-2024 Episodic Other gastrointestinal disorders (1 source) Constipation; Translations: [Constipation, unspecified] 06-02-2024 Episodic Other injuries and conditions due to external causes (20 sources) Post-traumatic wound infection; Translations: [Infected piercing of trunk] 03-07-2021 Episodic Other liver diseases (20 sources) Enzyme level - finding; Translations: [Elevated transaminase measurement] 07-28-2022 Episodic Other liver diseases (13 sources) Aspartate aminotransferase serum level raised; Translations: [High aspartate aminotransferase level] 12-29-2022 Episodic Other liver diseases (13 sources) High lipase level in serum; Translations: [Abnormal levels of other serum enzymes] 12-29-2022 Episodic Other liver diseases (12 sources) Elevated liver enzymes level; Translations: [Abnormal levels of other serum enzymes] 01-02-2023 Episodic Other liver diseases (5 sources) Abnormal levels of other serum enzymes; Translations: [Other nonspecific abnormal serum enzyme levels] 01-02-2023 Episodic Other lower respiratory disease (14 sources) Hypoxia; Translations: [Hypoxemia] 12-18-2022 Episodic Other lower respiratory disease (7 sources) Hypoxemia; Translations: [Hypoxemia] 12-21-2022 Episodic Other nutritional; endocrine; and metabolic disorders (15 sources) Hypomagnesemia; Translations: [Hypomagnesemia] 07-29-2022 Chronic Other nutritional; endocrine; and metabolic disorders (8 sources) Hypomagnesemia; Translations: [Disorders of magnesium metabolism] 08-05-2022 Chronic Other screening for suspected conditions (not mental disorders or infectious disease) (20 sources) Abnormal findings diagnostic imaging of liver+biliary tract; Translations: [Abnormal findings on diagnostic imaging of other parts of digestive tract] 07-29-2022 Episodic Pancreatic disorders (not diabetes) (20 sources) Alcohol-induced chronic pancreatitis; Translations: [Alcohol-induced chronic pancreatitis] Onset: 3 01-24-2023 Chronic Peripheral and visceral atherosclerosis (4 sources) Superior mesenteric vein thrombosis ; Translations: [Acute infarction of intestine, part and extent unspecified] 07-28-2022 Episodic Pleurisy; pneumothorax; pulmonary collapse (20 sources) Pleural effusion; Translations: [Pleural effusion, not elsewhere classified] 07-31-2022 Episodic Rehabilitation care; fitting of prostheses; and adjustment of devices (3 sources) Patient encounter status; Translations: [Encounter for fitting and adjustment of other specified devices] Onset: 4 11-27-2023 Chronic Residual codes; unclassified (1 source) Presence of other specified functional implants; Translations: [Presence of other specified functional implants] Onset: 4 Chronic Residual codes; unclassified (1 source) Device in situ; Translations: [Presence of other specified functional implants] 04-10-2024 Chronic Residual codes; unclassified (2 sources) Past history of procedure; Translations: [Other specified postprocedural states] 09-13-2023 Episodic Residual codes; unclassified (1 source) Tobacco use and exposure - finding; Translations: [Tobacco use] 04-10-2024 Episodic Substance-related disorders (20 sources) Nicotine dependence, unspecified, uncomplicated; Translations: [Nicotine dependence] Onset: 7 05-08-2023 Chronic Unclassified (1 source) Established Patient Onset: 4 Urinary tract infections (20 sources) Urinary tract infectious disease; Translations: [Urinary tract infection, site not specified] 10-20-2022 Episodic Past or Other Problems Problem Classification Problem Date Documented Da te Episodic/Chronic Abdominal pain (20 sources) Abdominal pain; Translations: [Unspecified abdominal pain] Onset: 05-09-2023 08-23-2022 Episodic Comment on above: R/O recurrent pancre atitis Inflammation; infection of eye (except that caused by tuberculosis or sexually transmitteddisease) (1 source) Unspecified conjunctivitis; Translations: [Conjunctivitis of left eye, unspecified conjunctivitis type] Onset: 10-24-2024 Episodic Lymphadenitis (3 sources) Nonspecific lymphadenitis, unspecified; Translations: [Nonspecific lymphadenitis, unspecified] Onset: 11-02-2016 Episodic Other non-traumatic joint disorders (20 sources) Pain in lower limb; Translations: [Pain in unspecified knee] Onset: 10-29-2005 10-29-2005 Episodic Other upper respiratory infections (1 source) Acute pharyngitis, unspecified; Translations: [Sore throat] Onset: 10-24-2024 Episodic Pancreatic disorders (not diabetes) (20 sources) Acute pancreatitis; Translations: [Acute pancreatitis without necrosis or infection, unspecified] Onset: 05-10-2023 Episodic Phlebitis; thrombophlebitis and thromboembolism (20 sources) Portal vein thrombosis; Translations: [Portal vein thrombosis] Onset: 09-13-2022 08-02-2022 Episodic Comment on above: CTA on 01/23/2023 rev iewed, shows resolution of Portal vein thrombus. Residual codes; unclassified (16 sources) Tobacco user; Translations: [Tobacco use] Onset: 04-09-2024 04-09-2024 Episodic Residual codes; unclassified (1 source) Tobacco use; Translations: [Tobacco use] Onset: 04-11-2024 Episodic Substance-related disorders (1 source) Opioid use, unspecified, uncomplicated; Translations: [Opioid use, unspecified, uncomplicated] Onset: 08-14-2023 Episodic Results Test Name Value Interpretation Reference Range Facility Absolute lymphocyte countOrd ered By: ED PROVIDER on 02-06-2025 Lymphocytes Auto (Unsp spec) [#/Vol] 2.23 10*3/uL 0.83-4.51 [facility] Absolute neutrophil countOrd ered By: ED PROVIDER on 02-06-2025 Neutrophils (Bld) [#/Vol] 3.2 10*3/uL 2.0-7.7 [facility] Anion gap in Serum or Plasma Ordered By: ED PROVIDER on 02-06-2025 Anion gap [Moles/Vol] 10 mmol/L 5-15 [facility] Automated lymphocyte count a s percentage of total leukocytesOrdered By: ED PROVIDER on 02-06-2025 Lymphocytes/100 WBC Auto (Unsp spec) 36.3 % 19-41 [facility] BUN/creatinine ratioOrdered By: ED PROVIDER on 02-06-2025 Urea nitrogen/Creatinine [Mass ratio] 15.0 mg/mg 10-20 [facility] Basophil percentageOrdered B y: ED PROVIDER on 02-06-2025 Basophils/100 WBC (Bld) 0.7 % 0-1 [facility] Bilirubin Test strip Ql (U)O rdered By: Vandana Pickens on 02-06-2025 Bilirubin Ql (U) Negative Negative [facility] Bilirubin, totalOrdered By: ED PROVIDER on 02-06-2025 Bilirubin [Mass/Vol] 0.19 mg/dL 0.00-1.30 [facility] Carbon dioxide, total [Moles /volume] in Central venous bloodOrdered By: ED PROVIDER on 02-06-2025 CO2 [Moles/Vol] 26.1 mmol/L 21.0-32.0 [facility] Chloride assayOrdered By: ED PROVIDER on 02-06-2025 Chloride [Moles/Vol] 102 mmol/L 98-108 [facility] Eosinophil percentageOrdered By: ED PROVIDER on 02-06-2025 Eosinophils/100 WBC (Bld) 3.7 % 0-5 [facility] Erythrocyte distribution wid th ratioOrdered By: ED PROVIDER on 02-06-2025 Erythrocyte distribution width (RBC) [Ratio] 12.9 % 11.6-14.6 [facility] Erythrocyte distribution wid th standard deviationOrdered By: ED PROVIDER on 02-06-2025 Erythrocyte distribution width (RBC) [Ratio] 39.8 fl 35.1-43.9 [facility] Glomerular filtration rate ( GFR) estimation/1.73 sq m using serum, plasma, or whole bOrdered By: ED PROVIDER on 02-06-2025 GFR/1.73 sq M.predicted among non-blacks MDRD (S/P/Bld) [Vol rate/Area] 104 mL/min/{1.73_m2} >60 [facility] Comment on above: mL/min/1.73m2 CKD-EP I Creatinine Equation (2020) Hematocrit Auto (Bld) [Volum e fraction]Ordered By: ED PROVIDER on 02-06-2025 Hematocrit (Bld) [Volume fraction] 35.2 % Low 37-47 [facility] Hemoglobin measurementOrdere d By: ED PROVIDER on 02-06-2025 Hemoglobin (Bld) [Mass/Vol] 12.1 g/dL 12.0-15.0 [facility] Immature granulocytes/100 WB C Auto (Bld)Ordered By: ED PROVIDER on 02-06-2025 Immature granulocytes/100 WBC (Bld) 0.200 % 0.0-0.9 [facility] Comment on above: IG% - Immature Granu locytes (promyelocytes, myelocytes and metamyelocytes) > 1% indicates that a LEFT SHIFT is Present. Ketones Test strip Ql (U)Ord ered By: Vandana Pickens on 02-06-2025 Ketones Ql (U) Negative Negative [facility] Laboratory - Chemistry and C hemistry - challengeOrdered By: ED PROVIDER on 02-06-2025 AST [Catalytic activity/Vol] 18 U/L <32 [facility] Lipase measurementOrdered By : ED PROVIDER on 02-06-2025 Lipase [Catalytic activity/Vol] 205 U/L High 13-75 [facility] Comment on above: Please note:LIPASE r evised reference range effective 22. New Lipase methodology. Expected to produce lower values than the previous assay method. NEW Reference Range: 13 - 75 U/L MCV (mean corpuscular volume ) determinationOrdered By: ED PROVIDER on 02-06-2025 MCV (RBC) [Entitic vol] 85.6 fL 81-99 [facility] Mean corpuscular hemoglobin (MCH) determinationOrdered By: ED PROVIDER on 02-06-2025 MCH (RBC) [Entitic mass] 29.4 pg 27.0-32.0 [facility] Mean corpuscular hemoglobin concentration (MCHC) determinationOrdered By: ED PROVIDER on 02-06-2025 MCHC (RBC) [Mass/Vol] 34.4 g/dL 32-36 [facility] Mean platelet volume determi nationOrdered By: ED PROVIDER on 02-06-2025 Platelet mean volume (Bld) [Entitic vol] 9.5 fL 6.2-12.0 [facility] Microscopic analysis of urin e for red blood cells (RBC)Ordered By: Vandana Pickens on 02-06-2025 Microscopic analysis of urine for red blood cells (RBC) 0-5 SEEN /hpf 0-5 [facility] Monocyte percentageOrdered B y: ED PROVIDER on 02-06-2025 Monocytes/100 WBC (Bld) 7.8 % 0-10 [facility] Mucus LM Ql (Urine sed)Order ed By: Vandana Pickens on 02-06-2025 Mucus Ql (Urine sed) 0 SEEN /hpf [facility] Neutrophil percentageOrdered By: ED PROVIDER on 02-06-2025 Neutrophils/100 WBC (Bld) 51.3 % 47-70 [facility] Nitrite Test strip Ql (U)Ord ered By: Vandana Pickens on 02-06-2025 Nitrite Ql (U) Negative Negative [facility] Nucleated red blood cell per centageOrdered By: ED PROVIDER on 02-06-2025 Nucleated RBC/100 WBC (Bld) [Ratio] 0 % 0-5 [facility] Platelet countOrdered By: ED PROVIDER on 02-06-2025 Platelets (Bld) [#/Vol] 270 10*3/uL 150-450 [facility] Potassium measurement (mass/ volume)Ordered By: ED PROVIDER on 02-06-2025 Potassium (Unsp spec) [Mass/Vol] 4.2 mmol/L 3.3-5.1 [facility] Protein Test strip Ql (U)Ord ered By: Vandana Pickens on 02-06-2025 Protein Ql (U) Negative Negative [facility] RBC Auto (Bld) [#/Vol]Ordere d By: ED PROVIDER on 02-06-2025 RBC (Bld) [#/Vol] 4.11 10*6/uL Low 4.2-5.4 [facility] Serum beta-hCG test, qualita tiveOrdered By: ED PROVIDER on 02-06-2025 Beta HCG ( test) Ql Negative [facility] Serum creatinine measurement (mass/volume)Ordered By: ED PROVIDER on 02-06-2025 Creatinine [Mass/Vol] 0.73 mg/dL 0.70-1.20 [facility] Serum globulin measurementOr dered By: ED PROVIDER on 02-06-2025 Globulin (S) [Mass/Vol] 2.8 g/dL 2.2-4.2 [facility] Serum glucose measurement (m ass/volume)Ordered By: ED PROVIDER on 02-06-2025 Glucose [Mass/Vol] 113 mg/dL High 70-99 [facility] Serum or plasma alanine lobo otransferase (ALT) measurementOrdered By: ED PROVIDER on 02-06-2025 ALT [Catalytic activity/Vol] 9 U/L <35 [facility] Serum or plasma albumin emma urement (mass/volume)Ordered By: ED PROVIDER on 02-06-2025 Albumin [Mass/Vol] 4.2 g/dL 3.5-5.0 [facility] Serum or plasma albumin/glob ulin mass ratioOrdered By: ED PROVIDER on 02-06-2025 Albumin/Globulin [Mass ratio] 1.5 {ratio} 0.9-2.4 [facility] Serum or plasma alkaline porfirio sphatase measurementOrdered By: ED PROVIDER on 02-06-2025 ALP [Catalytic activity/Vol] 89 U/L 35-104 [facility] Serum or plasma calcium emma urement (mass/volume)Ordered By: ED PROVIDER on 02-06-2025 Calcium [Mass/Vol] 9.3 mg/dL 7.6-11.0 [facility] Serum or plasma urea nitroge n measurement (mass/volume)Ordered By: ED PROVIDER on 02-06-2025 Urea nitrogen [Mass/Vol] 11 mg/dL 4-19 [facility] Sodium levelOrdered By: ED P WILTON on 02-06-2025 Sodium [Moles/Vol] 138 mmol/L 133-145 [facility] Squamous epithelial cells de tection in urine sediment by light microscopyOrdered By: Vandana Pickens on 02-06-2025 Epithelial cells.squamous LM Ql (Urine sed) 0-5 SEEN /hpf 5-10 [facility] Total proteinOrdered By: ED PROVIDER on 02-06-2025 Protein [Mass/Vol] 7.0 g/dL 5.9-8.4 [facility] Urine clarityOrdered By: Yani Pickens on 02-06-2025 Clarity (U) Clear Clear [facility] Urine color determinationOrd ered By: Vandana Pickens on 02-06-2025 Color (U) Straw Yellow [facility] Urine glucose detectionOrder ed By: Vandana Pickens on 02-06-2025 Glucose Ql (U) Normal mg/dl Normal [facility] Urine leukocyte esterase det ection by dipstickOrdered By: Vandana Pickens on 02-06-2025 Leukocyte esterase Test strip Ql (U) Negative Negative [facility] Urine pHOrdered By: Vandana rodríguez on 02-06-2025 pH (U) 7.0 [pH] 5.0 - 8.0 [facility] Urine sediment bacteria coun t by microscopy (number/high power field)Ordered By: Vandana Pickens on 02-06-2025 Bacteria LM.HPF (Urine sed) [#/Area] RARE /hpf None Seen [facility] Urine specific gravity measu rementOrdered By: Vandana Pickens on 02-06-2025 Specific gravity (U) [Rel density] 1.030 1.002-1.03 0 [facility] Urine urobilinogen measureme ntOrdered By: Vandana Pickens on 02-06-2025 Urobilinogen Ql (U) Normal mg/dl Normal [facility] White blood cell (WBC) count Ordered By: ED PROVIDER on 02-06-2025 WBC (Bld) [#/Vol] 6.1 10*3/uL 4.4-11.0 [facility] White blood cell countOrdere d By: Vandana Pickens on 02-06-2025 White blood cell count 0-5 SEEN /hpf 0-5 [facility] CNOVon 01-15-2025 CNOV Office Visit ([facility] ) ----- MELVA KERNS ([id number]) 1980 F Date Time Provider Department 01/15/25 2:00 PM ROEL MOSLEY [facility] During your visit today, we recorded the following information about you: Pulse Blood pressure Weight Height 75/minute 100/62 61.2 kg 1.626 m Roel Moslye MD 01/15/2025 3:02 PM Signed CHIEF COMPLAINT: Patient presents with: Chronic pancreatitis: ERCP 10/10/24 HPI: Melva Kerns is a 44 year old female with a PMHx of Alcohol induced chronic pancreatitis who presents for follow up. Patient has history of chronic pancreatitis with resultant pancreatic and biliary duct strictures. She had multiple ERCPs with biliary and pancreatic stent placement. On her last ERCP the pancreatic stent spontaneously migrated suggestive of improving pancreatic duct stricture. The pancreatic duct stent was not replaced. Similarly, the biliary duct stricture appeared improved as well and biliary stent was not replaced. Her hepatic function panel has been monitored and remained stable. She does endorse diffuse persistent mild abdominal pain. She reports no significant change in pain intensity or character with or without a pancreatic duct stent in place. She has previously trialed multiple non-opioid pain management strategies, including gabapentin, Lyrica, and a celiac plexus block, all of which were ineffective. She is currently managed by a pain specialist and uses Butrans patches, which she reports are no longer providing adequate relief. Current Outpatient Medications Medication Sig BUTRANS 20 mcg/hour transdermal patch apply 1 patch topically to CLEAN, DRY, AND INTACT SKIN REMOVE AND REPLACE weekly acetaminophen (TYLENOL) 500 mg tablet Take 2 tablets by mouth every 6 hours. No current facility-administered medications for this visit. ALLERGIES No Known Allergies SOCIAL HISTORY[1] 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 Blood clot in vein Essential hypertension Pancreatic duct stricture (HCC) Portal vein thrombosis PAST SURGICAL HISTORY Procedure Laterality Date DILATION AND CURETTAGE DXAND/THER NONOBSTETRIC Dilation AND curettage, X-2 LIG/TRNSXJ FLP TUBE ABDL/VAG APPR UNI/BI Tubal ligation PLACEMENT, BILE DUCT STENT 12/2023 FAMILY HISTORY Problem Relation Age of Onset Diabetes Maternal Uncle Asthma Brother REVIEW OF SYSTEMS Review of Systems Gastrointestinal: Positive for abdominal pain. All other systems reviewed and are negative. PHYSICAL EXAM BP 100/62 Pulse 75 Ht 5' 4 (1.63m) Wt 135 lb (61.2kg) SpO2 97% LMP 09/09/2024 BMI 23.16 kg/(m2). Physical Exam General: Awake and alert, NAD. Mouth: Mucous membranes moist. Respiratory: Even, non-labored. Heart: Regular rate. Abdomen: Soft, non-tender, no distention. Extremities: No edema. Neurological: Grossly normal. Skin: Warm and dry. ASSESSMENT/PLAN: #Alcohol-induced chronic pancreatitis (HCC) (Primary) #H/O Biliary and Pancreatic duct strictures - Persistent mild abdominal pain, unchanged with pancreatic stent placement. Previous stent migrated spontaneously, suggesting minimal ductal stricture. Patient has tried gabapentin, Lyrica, and celiac block without relief. Currently using Butrans patch for pain management, which is not as effective. - Ordered liver function tests to assess for any biliary obstruction. - Stool test ordered in June was not collected. Reordered stool study to evaluate pancreatic function. - Advised to continue to abstain from alcohol - Advised to quit or cut down on tobacco use - CALPROTECTIN,FECAL - HEPATIC FUNCTION PNL; Future #CRC Screening - Ordered a colonoscopy on last visit, however, patient did not complete it - She would like to hold any screening colonoscopy at this point Follow up in 6 months Role Mosley MD DATE: 01/15/25 TIME: 2:02 PM [1] Social History Tobacco Use Smoking status: Former Current packs/day: 0.50 Average packs/day: 0.5 packs/day for 30.0 years (15.0 ttl pk-yrs) Types: Cigarettes Smokeless tobacco: Never Tobacco comments: Quit 09/2024 Since 15 x 1 PPD Vaping Use Vaping status: current everyday user Substances: Nicotine Substance Use Topics Alcohol use: Not Currently Comment: sober since 12/2022 Drug use: No Roel Mosley MD 01/15/2025 2:26 PM Signed We discussed your chronic pancreatitis and ongoing pain: - Chronic pancreatitis often causes persistent pain, which may not fully resolve. The pancreatic stent you previously had was intended to help alleviate pain and relieve any strictures. However, since the stent migrated on its own, it suggests there may not be significant stricture in the duct at this time. - You mentioned that the Butrans patch prescribed by your p (more content not included)... Normal [facility] XR ABDOMEN 1V SUPINEon 01-14 XR ABDOMEN 1V SUPINE * * *Final Report* * * DATE OF EXAM: Jan 14 2025 3:39PM WOX [id number] - XR ABDOMEN 1V SUPINE / PROCEDURE REASON: Alcohol-induced chronic pancreatitis (HCC) * * * * Physician Interpretation * * * * Abdomen supine: HISTORY: Indication: Alcohol-induced chronic pancreatitis (HCC) Evaluate for migrated stent out of the pancreatic duct, now in the bowels Evaluate for migrated stent out of the pancreatic duct, now in the bowels Evaluate for migrated stent out of the pancreatic duct, now in the bowels TECHNIQUE: Views obtained: XR ABDOMEN 1V SUPINE Comparison: CT abdomen pelvis 05/09/2023 RESULT: Findings: The single surgical clip projects over the RIGHT side of the pelvis probably due to previous tubal ligation. The other clip projects over the epigastric region. On previous outside CT 05/09/2023 projected over the LEFT iliac crest No abnormal calcifications are seen. There is a very large amount of fecal debris throughout the entire colon. The bowel gas pattern is nonspecific and unremarkable.. No bony abnormalities are seen IMPRESSION: 1. Large amount of fecal debris. 2. 2 clips are noted probably tubal ligation clips. One projects over the RIGHT side of the pelvis the other now projects over the epigastric region. See discussion COMMUNICATION: Communicated via Imaging Support Services Department with CARYGeorge ZAK MOSLEY via [employer] Staff message 01/22/2025 4:22 PM Brand Protection Manager: ESTHER Transcribe Date/Time: Jan 22 2025 4:04P Dictated by : SHANE CABRERA DO This examination was interpreted and the report reviewed and electronically signed by: SHANE CABRERA DO on Jan 22 2025 4:22PM EST [id number] Normal [facility] CNOVon 10-24-2024 CNOV Office Visit ([facility] ) ----- MELVA KERNS ([id number]) 1980 F Date Time Provider Department 10/24/24 7:30 AM VIANCA CHAPPELL [facility] During your visit today, we recorded the following information about you: Temperature Pulse Respiration Blood pressure 97.3 degrees 97/minute 18/minute 111/76 Weight 62.4 kg Vianca Chappell APRN.[facility] 10/24/2024 7:56 AM Signed [facility] Subjective Melva Kerns is a 44 year old female. Patient presents with: Sore Throat: L eye conjunctivitis x last night Sore Throat Sore Throat: - Onset last night. - Associated with neck swelling. - Denies fever, ear pain, cough, rhinorrhea, or nasal congestion. - Took Tylenol for relief. - Recent exposure to a grandchild who is ill. Conjunctivitis: - Onset last night. - Mild drainage from the left eye. Review of Systems HENT: Positive for sore throat. Constitutional: (-) fever Eyes: (+) eye redness (left), (+) eye discharge (left) Ears/Nose/Mouth/Throat: (+) sore throat, (-) ear pain, (-) congestion Neck: (+) neck swelling Respiratory: (-) cough Objective BP 111/76 Pulse 97 Temp 36.3 ?C (97.3 ?F) Resp 18 Wt 62.4 kg (137 lb 9.1 oz) LMP 09/09/2024 (Approximate) SpO2 96% BMI 23.60 kg/m? PAST MEDICAL HISTORY Diagnosis Date - Alcohol abuse - Alcohol-induced chronic pancreatitis (HCC) - Bile duct disease - Blood clot in vein - Essential hypertension - Pancreatic duct stricture (HCC) - Portal vein thrombosis PAST SURGICAL HISTORY Procedure Laterality Date - DILATION AND CURETTAGE DXAND/THER NONOBSTETRIC Dilation AND curettage, X-2 - LIG/TRNSXJ FLP TUBE ABDL/VAG APPR UNI/BI Tubal ligation - PLACEMENT, BILE DUCT STENT 12/2023 ALLERGIES Patient has no known allergies. MEDICATIONS - polymyxin B-trimethoprim (POLYTRIM) 10,000 unit- 1 mg/mL ophthalmic solution Use 1 drop in the left eye four times daily for 7 days. - BUTRANS 20 mcg/hour transdermal patch apply 1 patch topically to CLEAN, DRY, AND INTACT SKIN REMOVE AND REPLACE weekly - acetaminophen (TYLENOL) 500 mg tablet Take 2 tablets by mouth every 6 hours. FAMILY HISTORY Problem Relation Age of Onset - Diabetes Maternal Uncle - Asthma Brother Social History Tobacco Use - Smoking status: Every Day Current packs/day: 0.50 Average packs/day: 0.5 packs/day for 30.0 years (15.0 ttl pk-yrs) Types: Cigarettes - Smokeless tobacco: Never - Tobacco comments: Quit 09/2024 Since 15 x 1 PPD Vaping Use - Vaping status: current everyday user - Substances: Nicotine Substance Use Topics - Alcohol use: Not Currently Comment: sober since 12/2022 - Drug use: No Physical Exam Vitals and nursing note reviewed. Constitutional: General: She is not in acute distress. Appearance: Normal appearance. She is not ill-appearing. HENT: Right Ear: Tympanic membrane, ear canal and external ear normal. Left Ear: Tympanic membrane, ear canal and external ear normal. Nose: Nose normal. Mouth/Throat: Mouth: Mucous membranes are moist. Pharynx: Oropharynx is clear. Uvula midline. Posterior oropharyngeal erythema present. No pharyngeal swelling, oropharyngeal exudate or uvula swelling. Tonsils: No tonsillar exudate or tonsillar abscesses. Eyes: General: Lids are normal. Vision grossly intact. Gaze aligned appropriately. No allergic shiner. Left eye: No discharge. Conjunctiva/sclera: Right eye: Right conjunctiva is not injected. No chemosis, exudate or hemorrhage. Left eye: Left conjunctiva is injected. No chemosis, exudate or hemorrhage. Pupils: Pupils are equal, round, and reactive to light. Cardiovascular: Rate and Rhythm: Normal rate and regular rhythm. Heart sounds: Normal heart sounds. Pulmonary: Effort: Pulmonary effort is normal. No respiratory distress. Breath sounds: Normal breath sounds. No wheezing or rales. Lymphadenopathy: Cervical: No cervical adenopathy. Skin: General: Skin is warm and dry. Findings: No erythema or rash. Neurological: Mental Status: She is alert. General: No acute distress. HEENT: Conjunctival injection of left eye; oropharynx mildly erythematous, no significant swelling; tympanic membranes normal bilaterally. CV: Regular rate and rhythm. Resp: Lungs clear to auscultation bilaterally. {1. Sore throat (J02.9) - Oropharyngeal examination reveals mild erythema, no significant swelling observed. - Rapid strep test negative. - Likely viral etiology; advised symptomatic management with Tylenol and ibuprofen as needed. - Recommended saline gargles to alleviate discomfort. - Provided work excuse note for today. 2. Conjunctivitis of left eye, unspecified conjunctivitis type (H10.9) - Conjunctival injection noted in the left eye, no purulent discharge observed. - Prescribed ophthalmic antibiotic drops to prevent spread. - Prescription sent (more content not included)... Normal [facility] ANES POSTPROC EVALon 025 ANES POSTPROC EVAL HNO ID: [id number] Author: BISI BOO DO Service: Anesthesiology Author Type: Physician Type: Anesthesia Postprocedure Evaluation Filed: 10/10/2024 10:06 Note Text: POST ANESTHESIA EVALUATION NOTE : 1980 Procedure Summary Date: 10/10/24 Room / Location: [facility] Anesthesia Start: 803 Anesthesia Stop: 847 Procedure: ERCP Diagnosis: Pancreatic duct dilated (HCC) (For therapy of chronic pancreatitis) (Stent change) Scheduled Providers: Roel Mosley MD Responsible Provider: Bisi Boo DO Anesthesia Type: general ASA Status: 3 Anesthesia Type: general Airway Type: ETT Last Vitals Vitals Value Taken Time BP 121/81 10/10/24 0949 Temp 36.2 ?C (97.2 ?F) 10/10/24 0920 HR SpO2 71 10/10/24 0953 Resp 17 10/10/24 0953 SpO2 98 % 10/10/24 0953 Vitals shown include unfiled device data. Post Anesthesia Patient Status Patient Evaluation: PACU. PACU/ICU Patient Condition: stable. Anticipated Disposition: phase 2 then home. Neurological Status: sleepy but arousable. Pulmonary Status: breathing comfortably on supplemental oxygen Airway Control: returned to baseline unsupported. Cardiovascular Status: stable. Pain Management: clinically adequate Postoperative Hydration: acceptable. Intraoperative Events: no significant anesthesia events Post Operative Nausea/Vomiting Status: no significant post operative nausea or vomiting Recommendation: continue current plan of care. Anesthesia Observations No Documentation SIGNATURE: Bisi Boo DO PATIENT NAME: Melva Kerns DATE: October 10, 2024 TIME: 10:06 AM CSN: [id number] [facility] ANES PRE-OPon 10-10-2024 ANES PRE-OP HNO ID: [id number] Author: BISI BOO DO Service: Anesthesiology Author Type: Physician Type: Anesthesia Preprocedure Evaluation Filed: 10/10/2024 07:34 Note Text: ANESTHESIOLOGY DAY OF SURGERY NOTE : 1980 Procedure Information Date/Time: 10/10/24 0800 Scheduled providers: Roel Mosley MD Procedure: ERCP Location: [facility] Estimated body mass index is 23.52 kg/m? as calculated from the following: Height as of 10/08/24: 162.6 cm (5' 4). Weight as of 10/08/24: 62.1 kg (137 lb). Most recent hematocrit and potassium results: Hematocrit 37.1 07/24/2023 Potassium 4.0 07/24/2023 Relevant Problems CARDIO (+) Essential hypertension (+) Portal vein thrombosis GI (+) GERD (gastroesophageal reflux disease) I - PHYSICAL EVALUATION AIRWAY Patient intubated: No. Tracheostomy tube not present Mallampati: II. TM distance: >3 FB. Neck ROM: full ROM without neurological symptoms. Mouth opening: adequate. Short neck: no. Thick neck: no DENTAL Dental findings: teeth intact. Additional exam findings: no II - ANESTHESIA PLAN ASA Score: 3 Anesthetic Plan: general Airway type: ETT The patient is not a current smoker. NPO Status: adequate Anesthetic plan additional comments: Quit smoking 2 wks ago. Beta Man Monitoring Plan Monitoring plan: standard ASA. Post Procedure Analgesic Plan Postoperative analgesic plan: multimodal analgesia and parenteral or oral opioids. Informed Consent Anesthetic risks, benefits, alternatives, personnel and consent discussed: yes. Patient / Responsible Constitution Party agrees to proceed: yes Patient / Surrogate agrees to blood products: blood products not planned Significant changes in the patient condition since the History and Physical, not otherwise documented in primary service progress note: no. Potential Anesthesia issues that may suggest increased risk of complications or contraindication to planned procedure: none. No vitals data found for the desired time range. Outpatient Medications as of 10/10/2024 Medication Sig BUTRANS 20 mcg/hour transdermal patch apply 1 patch topically to CLEAN, DRY, AND INTACT SKIN REMOVE AND REPLACE weekly acetaminophen (TYLENOL) 500 mg tablet Take 2 tablets by mouth every 6 hours. No current facility-administered medications on file as of 10/10/2024. I have interviewed and examined the patient. I have reviewed the medical record and/or the pre-anesthesia evaluation, pertinent labs, and test results. This contains updated information obtained within 48 hours of Surgery/Procedure. SIGNATURE: Bisi Boo DO PATIENT NAME: Melva Kerns DATE: October 10, 2024 TIME: 7:30 AM CSN: [id number] Normal [facility] ERCPon 10-10-2024 ERCP [facility] Gastrointestinal Endoscopy Patient Name: Melva Kerns Procedure Date: 10/10/2024 7:47 AM Date of : 1980 Admit Type: Outpatient Room: [place] [address] Gender: Female Note Status: Finalized Attending MD: Roel Mosley MD, [id number] Procedure: ERCP Indications: For therapy of chronic pancreatitis, Stent change Providers: Roel Mosley MD Patient Profile: Refer to note in patient chart for documentation of history and physical. Referring Physician: Roel Mosley MD (Referring MD) Medicines: General Anesthesia, Indomethacin 100 mg AR Complications: No immediate complications. Procedure: Pre-Anesthesia Assessment: - Prior to the procedure, a History and Physical was performed, and patient medications and allergies were reviewed. The patient is competent. The risks and benefits of the procedure and the sedation options and risks were discussed with the patient. All questions were answered and informed consent was obtained. Patient identification and proposed procedure were verified by the physician, the nurse and the anesthesiologist in the pre-procedure area in the procedure room. Mental Status Examination: alert and oriented. Airway Examination: normal oropharyngeal airway and neck mobility. Respiratory Examination: clear to auscultation. CV Examination: normal. Prophylactic Antibiotics: The patient does not require prophylactic antibiotics. Prior Anticoagulants: The patient has taken no anticoagulant or antiplatelet agents. ASA Grade Assessment: III - A patient with severe systemic disease. After reviewing the risks and benefits, the patient was deemed in satisfactory condition to undergo the procedure. The anesthesia plan was to use general anesthesia. Immediately prior to administration of medications, the patient was re-assessed for adequacy to receive sedatives. The heart rate, respiratory rate, oxygen saturations, blood pressure, adequacy of pulmonary ventilation, and response to care were monitored throughout the procedure. The physical status of the patient was re-assessed after the procedure. After obtaining informed consent, the scope was passed under direct vision. Throughout the procedure, the patient's blood pressure, pulse, and oxygen saturations were monitored continuously. The Duodenoscope was introduced through the mouth, and advanced to the duodenum and used to inject contrast into the ventral pancreatic duct. I was present and participated during the entire procedure, including non-jaimes portions, and during the administration and monitoring of Moderate Sedation. The ERCP was accomplished without difficulty. The patient tolerated the procedure well. Moderate Sedation: An independent trained observer was present and continuously monitored the patient. Exam was performed under general anesthesia (GA) Findings: A service control operator film of the abdomen was obtained. Prior pancreatic stent was seen in the distal GI tract. The esophagus was successfully intubated under direct vision. The scope was advanced to a normal major papilla in the descending duodenum without detailed examination of the pharynx, larynx and associated structures, and upper GI tract. The upper GI tract was grossly normal. One stent which had been placed through the major papilla into the pancreatic duct was no longer visible. It had migrated out of the duct. The ventral pancreatic duct was deeply cannulated with the short-nosed traction sphincterotome. Contrast was injected. I personally interpreted the pancreatic duct images. Ductal flow of contrast was adequate. Image quality was adequate. Opacification of the main pancreatic duct was successful. The pancreatic duct in the body of the pancreas was dilated mildly. To remove the object(s) the ventral pancreatic duct was swept with a 12 mm balloon starting at the pancreatic duct in the tail of the pancreas. Nothing was found. Estimated Blood Loss: Estimated blood loss: none. Impression: - A previously placed stent had migrated out of the pancreatic duct. and is visualized in the distal GI tract - Mild dilatation of the pancreatic duct in the body of the pancreas was found. The stricture in the head of the pancreatic duct appeared improved - The ventral pancreatic duct was swept and nothing was found. Recommendation: - Discharge patient to home (ambulatory). - Contrast followed out of the pancreatic duct spontaneously and prior pancreatic duct stricture in the head of the pancreas appeared improved - Decision was made to not place any pancreatic duct and monitor patient clinically - Will arrange for KUB in 4 weeks to ensure pancreatic stent seen in the GI tract is expelled - Follow up in the GI clinic - The patient is not currently taking anticoagulant or antiplatelet agents. Procedure Code(s): --- Pro (more content not included)... Normal [facility] ERCP Study observation Nancy harmon 10-10-2024 IMPRESSION: Images r eveal dislodged pancreatic duct stent. There is some persistent dilation of pancreatic duct at the level of pancreatic neck to 6.5 mm. Brand Protection Manager: PSCB Transcribe Date/Time: Oct 10 2024 3:24P Dictated by : KRISTY VASQUEZ MD This examination was interpreted and the report reviewed and electronically signed by: KRISTY VASQUEZ MD on Oct 10 2024 3:29PM EST [facility] [employer] * * *Final Report* * * DATE OF EXAM: Oct 10 2024 9:06AM AKO [id number] - XR ERCP READ ONLY / PROCEDURE REASON: ERCP * * * * Physician Interpretation * * * * EXAM TITLE: ERCP DATE: October 10, 2024 at 7:18 PM COMPARISON: Previous ERCPs from July 18, 2024 and several ERCPs in 2023 as well as MRI of the pancreas from November 09, 2023 CLINICAL INDICATION/HISTORY: The patient is a 44-year-old female with known pancreatitis with chronic pancreatic duct stricture which has been treated with pancreatic stent.. TECHNIQUE: 8 spot films from an ERCP performed by Dr. Mosley are presented for interpretation. 0 minutes and 53 seconds of fluoroscopy time was utilized in the operating room.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 of Surgery/Procedure. SIGNATURE: Prakash Dominguez MD PATIENT NAME: Melva Kerns DATE: July 18, 2024 TIME: 7:21 AM CSN: [id number] Normal [facility] ERCPon 07-18-2024 ERCP [facility] Gastrointestinal Endoscopy Patient Name: Melva Kerns Procedure Date: 07/18/2024 7:32 AM Date of : 1980 Admit Type: Outpatient Room: [place] [address] Gender: Female Note Status: Finalized Attending MD: Roel Mosley MD, [id number] Procedure: ERCP Indications: Stent change Providers: Roel Mosley MD Patient Profile: Refer to note in patient chart for documentation of history and physical. Referring Physician: Roel Mosley MD (Referring MD) Medicines: General Anesthesia Complications: No immediate complications. Procedure: Pre-Anesthesia Assessment: - Prior to the procedure, a History and Physical was performed, and patient medications and allergies were reviewed. The patient is competent. The risks and benefits of the procedure and the sedation options and risks were discussed with the patient. All questions were answered and informed consent was obtained. Patient identification and proposed procedure were verified by the physician, the nurse and the anesthesiologist in the pre-procedure area in the procedure room. Mental Status Examination: alert and oriented. Airway Examination: normal oropharyngeal airway and neck mobility. Respiratory Examination: clear to auscultation. CV Examination: normal. Prophylactic Antibiotics: The patient does not require prophylactic antibiotics. Prior Anticoagulants: The patient has taken no anticoagulant or antiplatelet agents. ASA Grade Assessment: III - A patient with severe systemic disease. After reviewing the risks and benefits, the patient was deemed in satisfactory condition to undergo the procedure. The anesthesia plan was to use general anesthesia. Immediately prior to administration of medications, the patient was re-assessed for adequacy to receive sedatives. The heart rate, respiratory rate, oxygen saturations, blood pressure, adequacy of pulmonary ventilation, and response to care were monitored throughout the procedure. The physical status of the patient was re-assessed after the procedure. After obtaining informed consent, the scope was passed under direct vision. Throughout the procedure, the patient's blood pressure, pulse, and oxygen saturations were monitored continuously. The Duodenoscope was introduced through the mouth, and advanced to the duodenum and used to inject contrast into the ventral pancreatic duct. I was present and participated during the entire procedure, including non-jaimes portions, and during the administration and monitoring of Moderate Sedation. The ERCP was accomplished without difficulty. The patient tolerated the procedure well. Moderate Sedation: An independent trained observer was present and continuously monitored the patient. Exam was performed under general anesthesia (GA) Findings: A pancreatic stent was visible on the service control operator film. The esophagus was successfully intubated under direct vision. The scope was advanced to a normal major papilla in the descending duodenum without detailed examination of the pharynx, larynx and associated structures, and upper GI tract. The upper GI tract was grossly normal. One plastic stent originating in the pancreatic duct was emerging from the major papilla. The stent was visibly patent. One stent was removed from the pancreatic duct using a snare. The ventral pancreatic duct was deeply cannulated with the short-nosed traction sphincterotome. Contrast was injected. I personally interpreted the pancreatic duct images. Ductal flow of contrast was adequate. Image quality was adequate. Opacification of the main pancreatic duct was successful. The ventral pancreatic duct in the head of the pancreas contained a mild stenosis. To remove the object(s) the ventral pancreatic duct was swept with an 11 mm balloon starting at the pancreatic duct in the tail of the pancreas. Debris was swept from the duct. Dilation of the main pancreatic duct with a 4 mm balloon dilator was successful. One 7 Fr by 9 cm plastic stent with a 3/4 external pigtail and a single internal flap was placed 8.5 cm into the ventral pancreatic duct. Clear fluid flowed through the stent. The stent was in good position. Estimated Blood Loss: Estimated blood loss was minimal. Impression: - One visibly patent stent from the pancreatic duct was seen in the major papilla and removed with a snare. - The ventral pancreatic duct was swept and debris was found. - The main pancreatic duct was successfully dilated to 4 mm. - One plastic stent was placed into the ventral pancreatic duct. Recommendation: - Discharge patient to home (ambulatory). - Will arrange for pancreatic stent exchange in 12 weeks - The patient is not currently taking anticoagulant or antiplatelet agents. Procedure Code(s): --- Professional --- 30046, Endoscopic retrograde cholangiopanc (more content not included)... Normal [facility] ERCP Study observation Nancy harmon 07-18-2024 [facility] Gastrointestinal Endoscopy Patient Name: Melva Kerns Procedure Date: 07/18/2024 7:32 AM Date of : 1980 Admit Type: Outpatient Room: [place] [address] Gender: Female Note Status: Finalized Attending MD: Roel Mosley MD, [id number] Procedure: ERCP Indications: Stent change Providers: Roel Mosley MD Patient Profile: Refer to note in patient chart for documentation of history and physical. Referring Physician: Roel Mosley MD (Referring MD) Medicines: General Anesthesia Complications: No immediate complications. Procedure: Pre-Anesthesia Assessment: - Prior to the procedure, a History and Physical was performed, and patient medications and allergies were reviewed. The patient is competent. The risks and benefits of the procedure and the sedation options and risks were discussed with the patient. All questions were answered and informed consent was obtained. Patient identification and proposed procedure were verified by the physician, the nurse and the anesthesiologist in the pre-procedure area in the procedure room. Mental Status Examination: alert and oriented. Airway Examination: normal oropharyngeal airway and neck mobility. Respiratory Examination: clear to auscultation. CV Examination: normal. Prophylactic Antibiotics: The patient does not require prophylactic antibiotics. Prior Anticoagulants: The patient has taken no anticoagulant or antiplatelet agents. ASA Grade Assessment: III - A patient with severe systemic disease. After reviewing the risks and benefits, the patient was deemed in satisfactory condition to undergo the procedure. The anesthesia plan was to use general anesthesia. Immediately prior to administration of medications, the patient was re-assessed for adequacy to receive sedatives. The heart rate, respiratory rate, oxygen saturations, blood pressure, adequacy of pulmonary ventilation, and response to care were monitored throughout the procedure. The physical status of the patient was re-assessed after the procedure. After obtaining informed consent, the scope was passed under direct vision. Throughout the procedure, the patient's blood pressure, pulse, and oxygen saturations were monitored continuously. The Duodenoscope was introduced through the mouth, and advanced to the duodenum and used to inject contrast into the ventral pancreatic duct. I was present and participated during the entire procedure, including non-jaimes portions, and during the administration and monitoring of Moderate Sedation. The ERCP was accomplished without difficulty. The patient tolerated the procedure well. Moderate Sedation: An independent trained observer was present and continuously monitored the patient. Exam was performed under general anesthesia (GA) Findings: A pancreatic stent was visible on the service control operator film. The esophagus was successfully intubated under direct vision. The scope was advanced to a normal major papilla in the descending duodenum without detailed examination of the pharynx, larynx and associated structures, and upper GI tract. The upper GI tract was grossly normal. One plastic stent originating in the pancreatic duct was emerging from the major papilla. The stent was visibly patent. One stent was removed from the pancreatic duct using a snare. The ventral pancreatic duct was deeply cannulated with the short-nosed traction sphincterotome. Contrast was injected. I personally interpreted the pancreatic duct images. Ductal flow of contrast was adequate. Image quality was adequate. Opacification of the main pancreatic duct was successful. The vent (more content not included)... PROVATION [facility] Radiology Study observation (narrative) [facility] NURSING PROGon 02-13-2025 NURSING PROG HNO ID: [id number] Author: MEDARDO FONTENOT, VIVIEN Service: Nursing Author Type: Registered Nurse Type: Nursing Progress Note Filed: 07/18/2024 10:07 Note Text: Dr Dominguez notified of continued pain and orders given. Encouraged to speak with physician who orders her chronic pain medication regarding procedures and discontinuing pre procedure and repeated episodes of post-op pain. Stated understanding. [facility] NURSING PROG HNO ID: [id number] Author: MEDARDO FONTENOT, RN Service: Nursing Author Type: Registered Nurse Type: Nursing Progress Note Filed: 07/18/2024 10:04 Note Text: Dr. Mosley notified of continued pain and pts request for prescription for home. Wrote prescription for pt. [facility] XR ERCP READ ONLYon 07-18-19 XR ERCP READ ONLY * * *Final Report* * * DATE OF EXAM: Jul 18 2024 9:13AM [facility] [id number] - XR ERCP READ ONLY / PROCEDURE REASON: ERCP * * * * Physician Interpretation * * * * XR ERCP READ ONLY 07/18/2024 9:13 AM HISTORY: ERCP TECHNIQUE: 9 spot views of the abdomen. Fluoroscopic Radiation Summary: Plane A, Air Kerma: 18.0 mGy Dose Area Product (DAP): Fluoro time: 2:23 min:sec COMPARISON: No prior similar exams are available for comparison RESULT: Images demonstrate a stent in the region of the pancreatic duct. Subsequently the duct was cannulated and a balloon was inflated in the duct. A stent was replaced. IMPRESSION: Fluoroscopic assistance for ERCP procedure. Brand Protection Manager: PSCB Transcribe Date/Time: Jul 26 2024 6:43P Dictated by : MARQUISE PARRA MD This examination was interpreted and the report reviewed and electronically signed by: MARQUISE PARRA MD on Jul 26 2024 6:44PM EST [id number] [facility] CNOVon 07-03-2024 CNOV Office Visit ([facility] ) ----- MELVA KERNS ([id number]) 1980 F Date Time Provider Department 07/03/24 3:00 PM ROEL MOSLEY During your visit today, we recorded the following information about you: Pulse Blood pressure Weight Height 90/minute 104/68 60.3 kg 1.626 m Roel Mosley MD 07/03/2024 4:02 PM Signed CHIEF COMPLAINT: Patient presents with: Recheck: Needs seen before next ERCP HPI: Melva Kerns is a 44 year old female with a PMHx of Alcohol induced chronic pancreatitis who presents for follow up. Patient has history of chronic pancreatitis with resultant pancreatic and biliary strictures. She had multiple ERCPs with biliary and pancreatic stent placement. On her last ERCP, she had a pancreatic stent exchange but the biliary stent was removed and not replaced. She has been doing well overall. States her abdominal pain is not as bad as it used. Smokes tobacco 1 PPD but recently switch to vaping. Denies any alcohol use. Current Outpatient Medications Medication Sig BUTRANS 20 mcg/hour transdermal patch apply 1 patch topically to CLEAN, DRY, AND INTACT SKIN REMOVE AND REPLACE weekly acetaminophen (TYLENOL) 500 mg tablet Take 2 tablets by mouth every 6 hours. No current facility-administered medications for this visit. ALLERGIES No Known Allergies Social History Tobacco Use Smoking status: Every Day Current packs/day: 0.50 Average packs/day: 0.5 packs/day for 30.0 years (15.0 ttl pk-yrs) Types: Cigarettes Smokeless tobacco: Never Vaping Use Vaping status: Never Used Substance Use Topics Alcohol use: Not Currently Comment: sober since 12/2022 Drug use: No PAST MEDICAL HISTORY Diagnosis Date Bile duct disease Blood clot in vein Essential hypertension PAST SURGICAL HISTORY Procedure Laterality Date DILATION AND CURETTAGE DXAND/THER NONOBSTETRIC Dilation AND curettage, X-2 LIG/TRNSXJ FLP TUBE ABDL/VAG APPR UNI/BI Tubal ligation PLACEMENT, BILE DUCT STENT 12/2023 FAMILY HISTORY Problem Relation Age of Onset Diabetes Maternal Uncle Asthma Brother REVIEW OF SYSTEMS Review of Systems Gastrointestinal: Positive for abdominal pain and constipation. All other systems reviewed and are negative. PHYSICAL EXAM BP 104/68 Pulse 90 Ht 5' 4 (1.63m) Wt 133 lb (60.3kg) LMP 08/02/2023 BMI 22.82 kg/(m2). Physical Exam General: Awake and alert, NAD. Mouth: Mucous membranes moist. Respiratory: Even, non-labored. Heart: Regular rate. Abdomen: Soft, non-tender, no distention. Extremities: No edema. Neurological: Grossly normal. Skin: Warm and dry. ASSESSMENT/Plan: Melva Kerns is a 44 year old female with a PMHx of Alcohol induced chronic pancreatitis who presents for follow up. #Chronic Pancreatitis - Denies any alcohol use - Advised to abstain from alcohol - Will check fecal elastase to evaluate for pancreatic insufficiency - Will check hepatic function panel to evaluate for symptomatic biliary stricture - Continue endoscopic therapy as scheduled RCT in 6 months Roel Mosley MD DATE: 07/03/24 TIME: 2:30 PM Roel Mosley MD 07/03/2024 2:57 PM Signed COLONOSCOPY BOWEL PREPARATION INSTRUCTIONS GOLYTELY/NULYTELY/TRILYTE /COLYTE Your doctor has scheduled you for a colonoscopy. To have a successful colonoscopy, you must have a clean colon, that is empty. A clean colon allows your doctor to see the entire colon AND diagnose issues like polyps or cancer. For doctors, a clean colon is like driving on a chance day; a dirty colon like driving in a storm. It is very important that you follow these instructions exactly, or your colonoscopy might not be as effective, could be canceled, and you may need to do the bowel prep and the colonoscopy again. TRANSPORTATION REQUIREMENTS You are receiving IV sedation. For your safety, a responsible adult escort must accompany you to and from your procedure: Your adult escort MUST be present with you at check-in for your colonoscopy. Your adult escort MUST remain in the endoscopy area until you are discharged. Your adult escort MUST transport you home once you are discharged. You are NOT allowed to operate any form of transportation (i.e. drive a car, bicycle, etc.) or leave the Endoscopy Center ALONE. It is not safe to do so. If you cannot meet these requirements, your procedure will be canceled. MEDICATION REQUIREMENTS For your safety, certain medications will need to be stopped or adjusted before you can have your procedure: BLOOD THINNERS: If you take blood thinners, such as Coumadin (warfarin), Plavix (clopidogrel), Ticlid (ticlopidine hydrochloride), Agrylin (anagrelide), Xarelto (Rivaroxaban), Pradaxa (Dabigatran), Eliquis (Apixaban), or Effient (Prasugrel), contact the physician who is prescribing these medications at least 2 week (more content not included)... Normal [facility] Hepatic function 2000 panelo n 07-03-2024 Albumin [Mass/Vol] 4.4 g/dL Normal 3.9-4.9 [facility] Comment on above: Order Comment: Charlie espinoza Type: BLOOD SPECIMEN Ordering Facility: [facility] Address: [address] [place] [address] Performed By: #### 2 4325-3 #### [facility] CLIA [id number] [address] [place] [address] [place] ALP [Catalytic activity/Vol] 90 U/L Normal 34-123 [facility] Comment on above: Order Comment: Charlie espinoza Type: BLOOD SPECIMEN Ordering Facility: [facility] Address: [address] [place] [address] Performed By: #### 2 4325-3 #### [facility] CLIA [id number] [address] [place] [address] [place] ALT [Catalytic activity/Vol] 13 U/L Normal 7-38 [facility] Comment on above: Order Comment: Charlie espinoza Type: BLOOD SPECIMEN Ordering Facility: [facility] Address: [address] [place] [address] Performed By: #### 2 4325-3 #### [facility] CLIA [id number] [address] [place] [address] [place] AST [Catalytic activity/Vol] 16 U/L Normal 13-35 [facility] Comment on above: Order Comment: Speci men Type: BLOOD SPECIMEN Ordering Facility: [facility] Address: [address] [place] [address] Performed By: #### 2 4325-3 #### [facility] CLIA [id number] [address] [place] [address] [place] Bilirubin [Mass/Vol] 0.2 mg/dL Normal 0.2-1.3 [facility] Comment on above: Order Comment: Speci men Type: BLOOD SPECIMEN Ordering Facility: [facility] Address: [address] [place] [address] Performed By: #### 2 4325-3 #### [facility] CLIA [id number] [address] [place] [address] [place] Bilirubin.conjugated [Mass/Vol] 0.1 mg/dL Normal <0.3 [facility] Comment on above: Order Comment: Speci men Type: BLOOD SPECIMEN Ordering Facility: [facility] Address: [address] [place] [address] Performed By: #### 2 4325-3 #### [facility] CLIA [id number] [address] [place] [address] [place] Protein [Mass/Vol] 6.8 g/dL Normal 6.3-8.0 [facility] Comment on above: Order Comment: Speci men Type: BLOOD SPECIMEN Ordering Facility: [facility] Address: [address] [place] [address] Performed By: #### 2 4325-3 #### [facility] CLIA [id number] [address] [place] [address] [place] Gregorio 06-13-2024 STEVE Telephone ([facility]) ----- MELVA KERNS ([id number]) 1980 F Date Time Provider Department 06/13/24 YOLI SAMPSON During your visit today, we recorded the following information about you: Yoli Sampson, BOBBI.CAN LABELER 06/13/2024 9:22 AM Signed Pt was a no show to PST today. Alivia in surgical scheduling notified. Allergies As of Date: 06/13/2024 (No Known Allergies) Date Reviewed: 05/21/2024 Reviewed by: Divya Georges, VIVIEN - Fully Assessed Reason for Visit: Patient Update [1234] Prescriptions as of 06/13/2024 - buprenorphine (BUTRANS) 15 mcg/hour patch Apply 1 Patch as directed one time a week. - iv contrast (will be provided with radiology [...] in the MR contrast administration guidelines link. - gabapentin (NEURONTIN) 100 mg capsule Take 2 capsules by mouth daily at bedtime for 30 days. - Nicotine 21-14-7 mg/24 hr ptds Apply 1 Patch as directed once daily. - dicloxacillin (DYNAPEN) 500 mg capsule Take 1 capsule by mouth four times daily. - ibuprofen (MOTRIN IB ORAL) Take by mouth. - iv contrast (will be provided with radiology [...] in the MR contrast administration guidelines link. - acetaminophen (TYLENOL) 500 mg tablet Take 2 tablets by mouth every 6 hours. - lactulose 10 gram/15 mL solution Take 30 mL by mouth once daily as needed for up to 2 doses. - gabapentin (NEURONTIN) 300 mg capsule Take 1 capsule by mouth daily at bedtime for 30 days. - omeprazole (PRILOSEC) 40 mg capsule Take 1 capsule by mouth once daily for 21 days. 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] 10/29/2005 PAIN IN JOINT, LOWER LEG [M25.569] 10/29/2005 ANXIETY STATE NOS [F41.1] 02/13/2006 Pre-op examination [Z01.818] 05/08/2023 Essential hypertension [I10] 05/08/2023 Nicotine dependence, uncomplicated [F17.200] 11/02/2016 Diagnosed: 05/08/2023 Alcohol abuse [F10.10] 12/25/2022 Diagnosed: 05/08/2023 Portal vein thrombosis [I81] 09/13/2022 Diagnosed: 05/08/2023 Alcohol-induced chronic pancreatitis (HCC) [K86*05/08/2023 GERD (gastroesophageal reflux disease) [K21.9] 05/08/2023 Abdominal pain [R10.9] 05/09/2023 Acute on chronic pancreatitis (HCC) [K85.90, K8*05/10/2023 Alcohol-induced acute pancreatitis [K85.20] 05/12/2023 Biliary stricture [K83.1] 04/09/2024 Tobacco abuse [Z72.0] 04/09/2024 Encounter Status:Closed by YOLI SAMPSON on 06/13/24 [facility] NURSING PROGon 06-11-2024 NURSING PROG HNO ID: [id number] Author: INÉS CASPER, VIVIEN Service: ? Author Type: Registered Nurse Type: Nursing Progress Note Filed: 06/11/2024 15:20 Note Text: Pt states she needs to reschedule this appt d/t babysitting commitment. She is going to call Dr. Putnam office and speak to the surgical navigator to reschedule. [facility] CNPMargaret 06-10-2024 CNPN Telephone (ASCNOR) ----- MELVA KERNS ([id number]) 1980 F Date Time Provider Department 06/10/24 ROEL MOSLEY During your visit today, we recorded the following information about you: Ruma Torres 06/10/2024 9:47 AM Signed LM on VM - Dr. Mosley is requesting to see the patient in office before her 2nd ERCP - this is how he prefers it. I rescheduled her ERCP and office visit. Her pre testing appt is fine. We do not need to reschedule it. Give patient update when she calls in. Thank you. 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 - iv contrast (will be provided with radiology [...] in the MR contrast administration guidelines link. - gabapentin (NEURONTIN) 100 mg capsule Take 2 capsules by mouth daily at bedtime for 30 days. - Nicotine 21-14-7 mg/24 hr ptds Apply 1 Patch as directed once daily. - dicloxacillin (DYNAPEN) 500 mg capsule Take 1 capsule by mouth four times daily. - ibuprofen (MOTRIN IB ORAL) Take by mouth. - iv contrast (will be provided with radiology [...] in the MR contrast administration guidelines link. - acetaminophen (TYLENOL) 500 mg tablet Take 2 tablets by mouth every 6 hours. - lactulose 10 gram/15 mL solution Take 30 mL by mouth once daily as needed for up to 2 doses. - gabapentin (NEURONTIN) 300 mg capsule Take 1 capsule by mouth daily at bedtime for 30 days. - omeprazole (PRILOSEC) 40 mg capsule Take 1 capsule by mouth once daily for 21 days. 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] 10/29/2005 PAIN IN JOINT, LOWER LEG [M25.569] 10/29/2005 ANXIETY STATE NOS [F41.1] 02/13/2006 Pre-op examination [Z01.818] 05/08/2023 Essential hypertension [I10] 05/08/2023 Nicotine dependence, uncomplicated [F17.200] 11/02/2016 Diagnosed: 05/08/2023 Alcohol abuse [F10.10] 12/25/2022 Diagnosed: 05/08/2023 Portal vein thrombosis [I81] 09/13/2022 Diagnosed: 05/08/2023 Alcohol-induced chronic pancreatitis (HCC) [K86*05/08/2023 GERD (gastroesophageal reflux disease) [K21.9] 05/08/2023 Abdominal pain [R10.9] 05/09/2023 Acute on chronic pancreatitis (HCC) [K85.90, K8*05/10/2023 Alcohol-induced acute pancreatitis [K85.20] 05/12/2023 Biliary stricture [K83.1] 04/09/2024 Tobacco abuse [Z72.0] 04/09/2024 Encounter Status:Closed by RUMA TORRES on 06/10/24 Normal [facility] Urine Cultureon 05-26-2024 URC Culture exhibits no growth. Normal [facility] Comment on above: Performed By: #### L 400.0001 #### [facility] [address] [place], [address] Abdomen/Pelvis W IV Cont ONL Yon 05-25-2024 Abdomen/Pelvis W IV Cont ONLY [facility] Imaging Services [address] [place] [id number] Abdomen/Pelvis W IV Cont ONLY MR#: [id number] Acct: [id number] Name: MELVA KERNS Rep #: [id number] : 1980 F 43 From: Kristy Sanon MD PCP: Care Physician,No Primary Status: REG ER Study: Abdomen/Pelvis W IV Cont ONLY Date of Exam: Exam# [id number] Ordering Dr: Zane Dixon CART ATTENDANT-C [id number] EXAM: CT ABDOMEN AND PELVIS WITH INTRAVENOUS CONTRAST CLINICAL INDICATION: abdominal pain TECHNIQUE: Helically acquired images were obtained of the abdomen and pelvis with intravenous contrast. This CT exam was performed using one or more of the following dose reduction techniques: automated exposure control, adjustment of the mA and/or kV according to patient size, and/or use of iterative reconstruction technique. CONTRAST: IV 100mL Isovue-370 COMPARISON: CT Abdomen Pelvis dated 08/10/2023 FINDINGS: LOWER THORAX: Bibasilar linear scarring/atelectasis. ABDOMEN: LIVER: Normal. Homogeneous. No focal mass. GALLBLADDER AND BILE DUCTS: Common bile duct measures 14 mm in maximum diameter proximally. There is also intrahepatic duct dilatation. The distal 4 cm of the common bile duct is narrowed consistent with stricture mass given the clinical history.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 patient was deemed in satisfactory condition to undergo the procedure. The anesthesia plan was to use general anesthesia. Immediately prior to administration of medications, the patient was re-assessed for adequacy to receive sedatives. The heart rate, respiratory rate, oxygen saturations, blood pressure, adequacy of pulmonary ventilation, and response to care were monitored throughout the procedure. The physical status of the patient was re-assessed after the procedure. After obtaining informed consent, the scope was passed under direct vision. Throughout the procedure, the patient's blood pressure, pulse, and oxygen saturations were monitored continuously. The Duodenoscope was introduced through the mouth, and advanced to the duodenum and used to inject contrast into the bile duct and ventral pancreatic duct. I was present and participated during the entire procedure, including non-jaimes portions, and during the administration and monitoring of Moderate Sedation. The ERCP was accomplished without difficulty. The patient tolerated the procedure well. Moderate Sedation: An independent trained observer was present and continuously monitored the patient. Exam was performed under general anesthesia (GA) Findings: A pancreatic stent was visible on the service control operator film. The esophagus was successfully intubated under direct vision. The scope was advanced to a normal major papilla in the descending duodenum without detailed examination of the pharynx, larynx and associated structures, and upper GI tract. The upper GI tract was grossly normal. One plastic stent originating in the pancreatic duct was emerging from the major papilla. The stent was partially occluded. One stent was removed from the pancreatic duct using a rat-toothed forceps. The ventral pancreatic duct was deeply cannulated with the short-nosed traction sphincterotome. Contrast was injected. I personally interpreted the pancreatic duct images. Ductal flow of contrast was adequate. Image quality was adequate. The ventral pancreatic duct in the head of the pancreas contained a moderate stenosis five mm in length. To remove the object(s) the ventral pancreatic duct was swept with an 8.5 mm balloon starting at the pancreatic duct in the tail of the pancreas. Debris was swept from the duct. One 7 Fr by 7 cm plastic stent with a full external pigtail and a single internal flap was placed 6.5 cm into the ventral pancreatic duct. Clear fluid flowed through the stent. The stent was in good position. The bile duct was deeply cannulated with the short-nosed traction sphincterotome. Contrast was injected. Opacification of the main bile duct, left intrahepatic branches and right intrahepatic branches was successful. The lower third of the main bile duct contained a single mild stenosis. The middle third of the main bile duct and upper third of the main bile duct were diffusely dilated, acquired. The largest diameter was 9 mm. The biliary tree was swept with a 12 mm balloon starting at the bifurcation. Debris was swept from the duct. Estimated Blood Loss: Estimated blood loss was minimal. Impression: - One partially occluded stent from the pancreatic duct was seen in the major papilla and removed (more content not included)... Normal [facility] ERCP Study observation Nancy harmon 05-21-2024 [facility] Gastrointestinal Endoscopy Patient Name: Melva Kerns Procedure Date: 05/21/2024 8:53 AM Date of : 1980 Admit Type: Outpatient Room: [place] [address] Gender: Female Note Status: Finalized Attending MD: Roel Mosley MD, [id number] Procedure: ERCP Indications: Pancreatic duct stricture, Stent change Providers: Roel Mosley MD Patient Profile: Refer to note in patient chart for documentation of history and physical. Referring Physician: Roel Mosley MD (Referring MD) Medicines: General Anesthesia, Indomethacin 100 mg AR Complications: No immediate complications. Procedure: Pre-Anesthesia Assessment: - Prior to the procedure, a History and Physical was performed, and patient medications and allergies were reviewed. The patient is competent. The risks and benefits of the procedure and the sedation options and risks were discussed with the patient. All questions were answered and informed consent was obtained. Patient identification and proposed procedure were verified by the physician, the nurse and the anesthesiologist in the procedure room. Mental Status Examination: alert and oriented. Airway Examination: normal oropharyngeal airway and neck mobility. Respiratory Examination: clear to auscultation. CV Examination: normal. Prophylactic Antibiotics: The patient does not require prophylactic antibiotics. Prior Anticoagulants: The patient has taken no anticoagulant or antiplatelet agents. ASA Grade Assessment: III - A patient with severe systemic disease. After reviewing the risks and benefits, the patient was deemed in satisfactory condition to undergo the procedure. The anesthesia plan was to use general anesthesia. Immediately prior to administration of medications, the patient was re-assessed for adequacy to receive sedatives. The heart rate, respiratory rate, oxygen saturations, blood pressure, adequacy of pulmonary ventilation, and response to care were monitored throughout the procedure. The physical status of the patient was re-assessed after the procedure. After obtaining informed consent, the scope was passed under direct vision. Throughout the procedure, the patient's blood pressure, pulse, and oxygen saturations were monitored continuously. The Duodenoscope was introduced through the mouth, and advanced to the duodenum and used to inject contrast into the bile duct and ventral pancreatic duct. I was present and participated during the entire procedure, including non-jaimes portions, and during the administration and monitoring of Moderate Sedation. The ERCP was accomplished without difficulty. The patient tolerated the procedure well. Moderate Sedation: An independent trained observer was present and continuously monitored the patient. Exam was performed under general anesthesia (GA) Findings: A pancreatic stent was visible on the service control operator film. The esophagus was successfully intubated under direct vision. The scope was advanced to a normal major papilla in the descending duodenum without detailed examination of the pharynx, larynx and associated structures, and upper GI tract. The upper GI tract was grossly normal. One plastic stent originating in the pancreatic duct was emerging from the major papilla. The stent was partially occluded. One stent was removed from the pancreatic duct using a rat-toothed forceps. The ventral pancreatic duct was deeply cannulated with the short-nosed traction sphincterotome. Contrast was injected. I personally interpreted the pancreatic duct images. Ductal flow of contrast was adequate. Image qual (more content not included)... [facility] Radiology Study observation (narrative) [facility] HISTORY PHYSICALon HISTORY PHYSICAL HNO ID: [id number] Author: RADHA SEARS APRN.CNP Service: Anesthesiology Author Type: Nurse Practitioner Type: H&P Filed: 05/21/2024 08:32 Note Text: HISTORY AND PHYSICAL EXAMINATION SERVICE DATE: 05/21/2024 SERVICE TIME: 8:21 AM PRIMARY CARE PHYSICIAN: No primary care [...] Chronic Pancreatitis (Hcc) Gerd (Gastroesophageal Reflux Disease) Abdominal Pain Acute On Chronic Pancreatitis (Hcc) Alcohol-Induced Acute Pancreatitis Biliary Stricture Tobacco Abuse Subjective CHIEF COMPLAINT: Preoperative Examination HPI: This is a 43 year old female that presents for ERCP. She is here for stent exchange. She states that the most recent stent was placed a little over a month ago. She states that this is a pancreatic stent. She also has had biliary stents but have since been removed. Denies any N/V/D and constipation. Endorses 7 abdominal pain in the perioperative area. Surgical intervention was previously discussed and patient is in agreement. METS: Climb a flight of stairs or walk up a hill (5.50 METs) Patient denies any CP/SOB with above activity. PAST MEDICAL HISTORY Diagnosis Date Bile duct disease Blood clot in vein Essential hypertension PAST SURGICAL HISTORY Procedure Laterality Date DILATION AND CURETTAGE DXAND/THER NONOBSTETRIC Dilation AND curettage, X-2 LIG/TRNSXJ FLP TUBE ABDL/VAG APPR UNI/BI Tubal ligation PLACEMENT, BILE DUCT STENT 12/2023 FAMILY HISTORY Problem Relation Age of Onset Diabetes Maternal Uncle Asthma Brother SOCIAL HISTORY: Social History Tobacco Use Smoking status: Every Day Current packs/day: 0.50 Average packs/day: 0.5 packs/day for 30.0 years (15.0 ttl pk-yrs) Types: Cigarettes Smokeless tobacco: Never Vaping Use Vaping status: Never Used Substance Use Topics 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 Yes acetaminophen (TYLENOL) 500 mg tablet Take 2 tablets by mouth every 6 hours. Yes iv contrast (will be provided with radiology [...] in the MR contrast administration guidelines link. Patient not taking: Reported on 11/22/2023 gabapentin (NEURONTIN) 100 mg capsule Take 2 capsules by mouth daily at bedtime for 30 days. Nicotine 21-14-7 mg/24 hr ptds Apply 1 Patch as directed once daily. dicloxacillin (DYNAPEN) 500 mg capsule Take 1 capsule by mouth four times daily. ibuprofen (MOTRIN IB ORAL) Take by mouth. iv contrast (will be provided with radiology [...] in the MR contrast administration guidelines link. Patient not taking: Reported on 06/28/2023 lactulose 10 gram/15 mL solution Take 30 mL by mouth once daily as needed for up to 2 doses. gabapentin (NEURONTIN) 300 mg capsule Take 1 capsule by mouth daily at bedtime for 30 days. omeprazole (PRILOSEC) 40 mg capsule Take 1 capsule by mouth once daily for 21 days. Medication Comments documented by Gomez Mcgowan DO on 08/14/2012 at 1101. No daily medications Medardo Gonzalez Lpn ALLERGIES No Known Allergies REVIEW OF SYSTEMS: PAIN ASSESSMENT: Pain Pain Level: 7 Pain Location: Abdomen Pain Assessment: Assessment Description: Aching Duration: Continuous Intervention/Comfort measure: Reposition, Relaxation Tool: Verbal (Numeric Rating or Visual Analog Scale) Gener (more content not included)... Normal [facility] NURSING PROGon 05-21-2024 NURSING PROG HNO ID: [id number] Author: DIVYA GEORGES, RN Service: Nursing Author Type: Registered Nurse Type: Nursing Progress Note Filed: 05/21/2024 11:12 Note Text: Pt states she is having her chronic pain and the only thing that helps her is her pain patch. Pt wants to go home at this time and denies need for further intervention for pain at this time. Dr Sanford spoke with pt and instructed her that it was ok to apply her patch as soon as she is able to get it. He also told her for the next time she has this procedure to leave patch on and notify staff on arrival. Normal [facility] XR ERCP READ ONLYon 05-21-20 XR ERCP READ ONLY * * *Final Report* * * DATE OF EXAM: May 21 2024 10:17AM JANET [id number] - XR ERCP READ ONLY / PROCEDURE REASON: ERCP * * * * Physician Interpretation * * * * EXAM TITLE: ERCP DATE: May 21, 2024 at 9:53 AM COMPARISON: Previous ERCPs from April 09, December 04, and August 10, 2023 CLINICAL INDICATION/HISTORY: The patient is a 39-year-old female with pancreatic duct strictures treated with stenting. TECHNIQUE: 9 spot films from an ERCP performed by Dr. Mosley are presented for interpretation. 4 minutes and 14 seconds of fluoroscopy time was utilized in the operating room. Fluoroscopy Radiation dose: Integrated dose-area product (DAP) for this visit = 89.46 mGy*cm. FINDINGS: Initial image shows pancreatic duct stent in place. It is subsequently removed and a new duct stent is placed retrograde opacification of the common bile duct reveals the duct to be slightly dilated to 12 mm with tapering distally. No fillings defects were identified after balloon sweeping. IMPRESSION: Images document exchange of pancreatic duct stent in mild biliary dilation with no residual filling defects at the end of the procedure. Brand Protection Manager: PSCB Transcribe Date/Time: May 28 2024 11:04A Dictated by : KRISTY VASQUEZ MD This examination was interpreted and the report reviewed and electronically signed by: KRISTY VASQUEZ MD on May 28 2024 11:08AM EST [id number] Normal [facility] CBC W/Diff, Automatedon 11-0 Absolute Neut Normal 2.0-7.7 [facility] Comment on above: Result Comment: PT L EFT AMA Performed By: #### L 500.4050, L100.0100 #### [facility] [address] [place], [address] HCT Normal 37-47 [facility] Comment on above: Result Comment: PT L EFT AMA Performed By: #### L 500.4050, L100.0100 #### [facility] [address] [place], [address] HGB Normal 12.0-15.0 [facility] Comment on above: Result Comment: PT L EFT AMA Performed By: #### L 500.4050, L100.0100 #### [facility] [address] [place], [address] MCH Normal 27.0-32.0 [facility] Comment on above: Result Comment: PT L EFT AMA Performed By: #### L 500.4050, L100.0100 #### [facility] [address] [place], [address] MCHC Normal 32-36 [facility] Comment on above: Result Comment: PT L EFT AMA Performed By: #### L 500.4050, L100.0100 #### [facility] [address] [place], [address] MCV Normal 81-99 [facility] Comment on above: Result Comment: PT L EFT AMA Performed By: #### L 500.4050, L100.0100 #### [facility] [address] [place], [address] NEUT% Normal 47-70 [facility] Comment on above: Result Comment: PT L EFT AMA Performed By: #### L 500.4050, L100.0100 #### [facility] [address] [place], [address] PLT Normal 150-450 [facility] Comment on above: Result Comment: PT L EFT AMA Performed By: #### L 500.4050, L100.0100 #### [facility] [address] [place], [address] RBC Normal 4.2-5.4 [facility] Comment on above: Result Comment: PT L EFT AMA Performed By: #### L 500.4050, L100.0100 #### [facility] [address] [place], [address] RDW CV Normal 11.6-14.6 [facility] Comment on above: Result Comment: PT L EFT AMA Performed By: #### L 500.4050, L100.0100 #### [facility] [address] [place], [address] RDW SD Normal 35.1-43.9 [facility] Comment on above: Result Comment: PT L EFT AMA Performed By: #### L 500.4050, L100.0100 #### [facility] [address] [place], [address] WBC Normal 4.4-11.0 [facility] Comment on above: Result Comment: PT L EFT AMA Performed By: #### L 500.4050, L100.0100 #### [facility] [address] [place], [address] Comprehensive Metabolic Prof ilon 04-11-2024 ALB Normal 3.2-5.0 [facility] Comment on above: Result Comment: PT L EFT AMA Performed By: #### L 500.4050, L100.0100 #### [facility] [address] [place], [address] ALK P Normal 45-117 [facility] Comment on above: Result Comment: PT L EFT AMA Performed By: #### L 500.4050, L100.0100 #### [facility] [address] [place], [address] ALT Normal 13-56 [facility] Comment on above: Result Comment: PT L EFT AMA Performed By: #### L 500.4050, L100.0100 #### [facility] [address] [place], [address] AST Normal 15-37 [facility] Comment on above: Result Comment: PT L EFT AMA Performed By: #### L 500.4050, L100.0100 #### [facility] [address] [place], [address] BUN Normal 7-18 [facility] Comment on above: Result Comment: PT L EFT AMA Performed By: #### L 500.4050, L100.0100 #### [facility] [address] [place], [address] BUN/CRE Normal 10-20 [facility] Comment on above: Result Comment: PT L EFT AMA Performed By: #### L 500.4050, L100.0100 #### [facility] [address] [place], [address] CA,Total Normal 8.5-10.1 [facility] Comment on above: Result Comment: PT L EFT AMA Performed By: #### L 500.4050, L100.0100 #### [facility] [address] [place], [address] CL Normal 98-107 [facility] Comment on above: Result Comment: PT L EFT AMA Performed By: #### L 500.4050, L100.0100 #### [facility] [address] [place], [address] CO2 Normal 21.0-32.0 [facility] Comment on above: Result Comment: PT L EFT AMA Performed By: #### L 500.4050, L100.0100 #### [facility] [address] [place], [address] CREAT,SERUM Normal 0.55-1.02 [facility] Comment on above: Result Comment: PT L EFT AMA Performed By: #### L 500.4050, L100.0100 #### [facility] [address] [place], [address] EST GFR Normal >60 [facility] Comment on above: Result Comment: PT L EFT AMA Performed By: #### L 500.4050, L100.0100 #### [facility] [address] [place], [address] EST GFR - AA Normal >60 [facility] Comment on above: Result Comment: PT L EFT AMA Performed By: #### L 500.4050, L100.0100 #### [facility] [address] [place], [address] GAP Normal 5-15 [facility] Comment on above: Result Comment: PT L EFT AMA Performed By: #### L 500.4050, L100.0100 #### [facility] [address] [place], [address] GLU Normal 74-106 [facility] Comment on above: Result Comment: PT L EFT AMA Performed By: #### L 500.4050, L100.0100 #### [facility] [address] [place], [address] Potassium Normal 3.5-5.1 [facility] Comment on above: Result Comment: PT L EFT AMA Performed By: #### L 500.4050, L100.0100 #### [facility] [address] [place], [address] T BILI Normal 0.20-1.00 [facility] Comment on above: Result Comment: PT L EFT AMA Performed By: #### L 500.4050, L100.0100 #### [facility] [address] [place], [address] T PROT Normal 6.4-8.2 [facility] Comment on above: Result Comment: PT L EFT AMA Performed By: #### L 500.4050, L100.0100 #### [facility] [address] [place], [address] Comprehensive Metabolic Profil Normal 136-145 [facility] Comment on above: Result Comment: PT L EFT AMA Performed By: #### L 500.4050, L100.0100 #### [facility] [address] [place], [address] Abdomen/Pelvis W IV Cont ONL Yon 04-10-2024 Abdomen/Pelvis W IV Cont ONLY [facility] Imaging Services [address] [place], [place] [address] Abdomen/Pelvis W IV Cont ONLY MR#: [id number] Acct: [id number] Name: MELVA KERNS Rep #: [id number] : 1980 F 43 From: Christos talamantes MD PCP: Care Physician,No Primary Status: REG ER Study: Abdomen/Pelvis W IV Cont ONLY Date of Exam: Exam# [id number] Ordering Dr: Carroll Lovell DO [id number] STUDY: CT ABDOMEN AND PELVIS WITH CONTRAST REASON FOR EXAM: Female, 43 years old. Stent yesterday in pancreatic duct RADIATION DOSAGE (If Supplied By Facility): CTDIvol = ( 8.70 ) mGy, DLP = ( 375.01 ) mGycm TECHNIQUE: Transaxial images were obtained from the dome of the diaphragm to the symphysis pubis without oral contrast. 100 ISOVUE 370 was administered. Sagittal and coronal images were reconstructed. Individualized dose optimization techniques were used for this CT. COMPARISON: Comparison is made with prior study dated January 13, 2024. FINDINGS: Mild increased markings at the lung bases suggestive of bibasilar atelectasis. The visualized portions of the heart are within normal limits. There is evidence of pneumobilia in keeping with the patient''s history of a pancreatic duct stent placement and the cannulation of the common bile duct. Normal gallbladder. The previously seen common bile duct stent has been removed. There is dilatation of the common bile duct measuring 1.4 cm down to the region of the ampulla of Vater. Normal spleen. Normal pancreas. Normal bilateral adrenal glands. Normal right kidney. Normal left kidney. Normal visualized stomach. Normal small intestine. Normal colon. The appendix is visualized and appears normal. There is scattered atherosclerotic calcification of the abdominal aorta, without a demonstrated aneurysm. Normal inferior vena cava. Normal retroperitoneum. Normal urinary bladder. Normal abdominal wall. Normal osseous structures. CT/Abdomen/Pelvis W IV Cont ONLY IMPRESSION: Status post placement of a pancreatic duct stent. Pneumobilia. Dilated common bile duct. The previously seen common bile duct stent as been removed. Electronically Signed: Christos Krause MD at 9:48 EST Reading Location ID and State: [address] [place] [address] , Service support , CC: Dr. Carroll Lovell, DO; No Primary Care Physician Brand Protection Manager: Signed Normal [facility] CBC W/Diff, Automatedon 11-0 -2023 Absolute Lymph 3.00 X10 3/uL Normal 0.83-4.51 [facility] Comment on above: Performed By: #### L 400.0001 #### [facility] [address] [place], [address] Absolute Neut 8.1 X10 3/uL High 2.0-7.7 [facility] Comment on above: Performed By: #### L 400.0001 #### [facility] [address] [place], [address] Basophils/100 WBC (Bld) 0.3 % Normal 0-1 [facility] Comment on above: Performed By: #### L 400.0001 #### [facility] [address] [place], [address] Eosinophils/100 WBC (Bld) 0.6 % Normal 0-5 [facility] Comment on above: Performed By: #### L 400.0001 #### [facility] [address] [place], [address] Erythrocyte distribution width (RBC) [Ratio] 12.9 % Normal 11.6-14.6 [facility] Comment on above: Performed By: #### L 400.0001 #### [facility] [address] [place], [address] Hematocrit (Bld) [Volume fraction] 38.4 % Normal 37-47 [facility] Comment on above: Performed By: #### L 400.0001 #### [facility] [address] [place], [address] Hemoglobin (Bld) [Mass/Vol] 12.7 g/dL Normal 12.0-15.0 [facility] Comment on above: Performed By: #### L 400.0001 #### [facility] [address] [place], [address] IG% 0.400 Normal 0.0-0.9 [facility] Comment on above: Result Comment: IG% - Immature Granulocytes (promyelocytes, myelocytes and metamyelocytes) > 1% indicates that a LEFT SHIFT is Present. Performed By: #### L 400.0001 #### [facility] [address] [place], [address] Lymphocytes/100 WBC (Bld) 25.0 % Normal 19-41 [facility] Comment on above: Performed By: #### L 400.0001 #### [facility] [address] [place], [address] MCH (RBC) [Entitic mass] 29.7 pg Normal 27.0-32.0 [facility] Comment on above: Performed By: #### L 400.0001 #### [facility] [address] [place], [address] MCHC (RBC) [Mass/Vol] 33.1 g/dL Normal 32-36 [facility] Comment on above: Performed By: #### L 400.0001 #### [facility] [address] [place], [address] MCV (RBC) [Entitic vol] 89.7 fL Normal 81-99 [facility] Comment on above: Performed By: #### L 400.0001 #### [facility] [address] [place], [address] Monocytes/100 WBC (Bld) 6.4 % Normal 0-10 [facility] Comment on above: Performed By: #### L 400.0001 #### [facility] [address] [place], [address] Neutrophils/100 WBC (Bld) 67.3 % Normal 47-70 [facility] Comment on above: Performed By: #### L 400.0001 #### [facility] [address] [place], [address] Nucleated RBC (Bld) [#/Vol] 0 10*3/uL Normal 0-5 [facility] Comment on above: Performed By: #### L 400.0001 #### [facility] [address] [place], [address] Platelet mean volume (Bld) [Entitic vol] 9.3 fL Normal 6.2-12.0 [facility] Comment on above: Performed By: #### L 400.0001 #### [facility] [address] [place], [address] Platelets (Bld) [#/Vol] 289 10*3/uL Normal 150-450 [facility] Comment on above: Performed By: #### L 400.0001 #### [facility] [address] [place], [address] RBC (Bld) [#/Vol] 4.28 10*6/uL Normal 4.2-5.4 [facility] Comment on above: Performed By: #### L 400.0001 #### [facility] [address] [place], [address] RDW SD 42.0 fl Normal 35.1-43.9 [facility] Comment on above: Performed By: #### L 400.0001 #### [facility] [address] [place], [address] WBC (Bld) [#/Vol] 12.0 10*3/uL High 4.4-11.0 [facility] Comment on above: Performed By: #### L 400.0001 #### [facility] [address] [place], [address] Comprehensive Metabolic Prof ilon 04-10-2024 Albumin [Mass/Vol] 3.8 g/dL Normal 3.2-5.0 [facility] Comment on above: Performed By: #### L 400.0001 #### [facility] [address] [place], [address] Albumin/Globulin [Mass ratio] 1.1 {ratio} Normal 0.9-2.4 [facility] Comment on above: Performed By: #### L 400.0001 #### [facility] [address] [place], [address] ALK P 102 U/L Normal 45-117 [facility] Comment on above: Performed By: #### L 400.0001 #### [facility] [address] [place], [address] ALT [Catalytic activity/Vol] 21 U/L Normal 13-56 [facility] Comment on above: Performed By: #### L 400.0001 #### [facility] [address] [place], [address] AST [Catalytic activity/Vol] 12 U/L Low 15-37 [facility] Comment on above: Performed By: #### L 400.0001 #### [facility] [address] [place], [address] Bilirubin [Mass/Vol] 0.30 mg/dL Normal 0.20-1.00 [facility] Comment on above: Result Comment: For patients on eltrombopag therapy, use of Dimension [place] TBIL is not recommended. Performed By: #### L 400.0001 #### [facility] [address] [place], [address] BUN/CRE 15.9 RATIO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 Roel Mosley MD Patient Profile: Refer to note in patient chart for documentation of history and physical. Referring Physician: Carlos Davis MD (Referring MD) Medicines: Indomethacin 100 mg AR Complications: No immediate complications. Procedure: Pre-Anesthesia Assessment: - Prior to the procedure, a History and Physical was performed, and patient medications and allergies were reviewed. The patient is competent. The risks and benefits of the procedure and the sedation options and risks were discussed with the patient. All questions were answered and informed consent was obtained. Patient identification and proposed procedure were verified by the physician, the nurse and the anesthesiologist in the procedure room. Mental Status Examination: alert and oriented. Airway Examination: normal oropharyngeal airway and neck mobility. Respiratory Examination: clear to auscultation. CV Examination: normal. Prophylactic Antibiotics: The patient does not require prophylactic antibiotics. Prior Anticoagulants: The patient has taken no anticoagulant or antiplatelet agents. ASA Grade Assessment: III - A patient with severe systemic disease. After reviewing the risks and benefits, the patient was deemed in satisfactory condition to undergo the procedure. The anesthesia plan was to use general anesthesia. Immediately prior to administration of medications, the patient was re-assessed for adequacy to receive sedatives. The heart rate, respiratory rate, oxygen saturations, blood pressure, adequacy of pulmonary ventilation, and response to care were monitored throughout the procedure. The physical status of the patient was re-assessed after the procedure. After obtaining informed consent, the scope was passed under direct vision. Throughout the procedure, the patient's blood pressure, pulse, and oxygen saturations were monitored continuously. The Duodenoscope was introduced through the mouth, and advanced to the duodenum and used to inject contrast into the bile duct and ventral pancreatic duct. I was present and participated during the entire procedure, including non-jaimes portions, and during the administration and monitoring of Moderate Sedation. The ERCP was accomplished without difficulty. The patient tolerated the procedure well. Moderate Sedation: An independent trained observer was present and continuously monitored the patient. Exam was performed under general anesthesia (GA) Findings: A biliary stent was visible on the service control operator film. The esophagus was successfully intubated under direct vision. The scope was advanced to a normal major papilla in the descending duodenum without detailed examination of the pharynx, larynx and associated structures, and upper GI tract. The upper GI tract was grossly normal. One metal stent originating in the biliary tree was emerging from the major papilla. The stent was partially occluded. One stent was removed from the biliary tree using a snare. The biliary tree was swept with a 12 mm balloon starting at the bifurcation. Sludge was swept from the duct. The ventral pancreatic duct was deeply cannulated with the short-nosed traction sphincterotome. Contrast was injected. I personally interpreted the pancreatic duct images. Ductal flow of contrast was adequate. The ventral pancreatic duct in the head of the pancreas contained a moderate stenosis. A 3 mm ventral pancreatic sphincterotomy was made with a monofilament traction (standard) sphincterotome using ERBE electrocautery. There was no post-sphincterotomy bleeding. One 7 Fr by 7 cm plastic stent with a full external pigtail and a single internal flap was placed 6.5 cm into the ventral pancreatic duct. Clear fluid flowed through the stent. The stent was in good position. Estimated Blood Loss: Estimated blood loss was minimal. Impression: - One partially occluded stent from the biliary tree was seen in the major papilla and removed with a snare. - The biliary tree was swept and sludge was found. - Balloon sweep and cholangiogram showed improvement of prior common bile duct stricture - A pancreatic duct stricture was found. One plastic stent was placed into the ventral pancreatic duct. Recommendation: - Discharge patient to home (ambulatory). - Repeat ERCP in 6-8 weeks to exchange stent. - Follow up with the GI clinic - The patient is not currently taking anticoagulant or antiplatelet agents. Attendin (more content not included)... Normal [facility] ERCP Study observation Nancy harmon 04-09-2024 [facility] Patient Name: Melva Kerns Procedure Date: 04/09/2024 7:28 AM Date of : 1980 Admit Type: Outpatient Room: [place] [address] Gender: Female Note Status: Finalized Attending MD: Roel Mosley MD, [id number] Procedure: ERCP Indications: Benign stricture of the common bile duct, Pancreatic duct stricture, Stent change Providers: Roel Mosley MD Patient Profile: Refer to note in patient chart for documentation of history and physical. Referring Physician: Carlos Davis MD (Referring MD) Medicines: Indomethacin 100 mg AR Complications: No immediate complications. Procedure: Pre-Anesthesia Assessment: - Prior to the procedure, a History and Physical was performed, and patient medications and allergies were reviewed. The patient is competent. The risks and benefits of the procedure and the sedation options and risks were discussed with the patient. All questions were answered and informed consent was obtained. Patient identification and proposed procedure were verified by the physician, the nurse and the anesthesiologist in the procedure room. Mental Status Examination: alert and oriented. Airway Examination: normal oropharyngeal airway and neck mobility. Respiratory Examination: clear to auscultation. CV Examination: normal. Prophylactic Antibiotics: The patient does not require prophylactic antibiotics. Prior Anticoagulants: The patient has taken no anticoagulant or antiplatelet agents. ASA Grade Assessment: III - A patient with severe systemic disease. After reviewing the risks and benefits, the patient was deemed in satisfactory condition to undergo the procedure. The anesthesia plan was to use general anesthesia. Immediately prior to administration of medications, the patient was re-assessed for adequacy to receive sedatives. The heart rate, respiratory rate, oxygen saturations, blood pressure, adequacy of pulmonary ventilation, and response to care were monitored throughout the procedure. The physical status of the patient was re-assessed after the procedure. After obtaining informed consent, the scope was passed under direct vision. Throughout the procedure, the patient's blood pressure, pulse, and oxygen saturations were monitored continuously. The Duodenoscope was introduced through the mouth, and advanced to the duodenum and used to inject contrast into the bile duct and ventral pancreatic duct. I was present and participated during the entire procedure, including non-jaimes portions, and during the administration and monitoring of Moderate Sedation. The ERCP was accomplished without difficulty. The patient tolerated the procedure well. Moderate Sedation: An independent trained observer was present and continuously monitored the patient. Exam was performed under general anesthesia (GA) Findings: A biliary stent was visible on the service control operator film. The esophagus was successfully intubated under direct vision. The scope was advanced to a normal major papilla in the descending duodenum without detailed examination of the pharynx, larynx and associated structures, and upper GI tract. The upper GI tract was grossly normal. One metal stent originating in the biliary tree was emerging from the major papilla. The stent was partially occluded. One stent was removed from the biliary tree using a snare. The biliary tree was swept with a 12 mm balloon starting at the bifurcation. Sludge was swept from the duct. The ventral pancreatic duct was deeply cannulated with the short-nosed traction sphincterotome. C (more content not included)... PROVATION [facility] Radiology Study [facility]narrative) [facility] HISTORY PHYSICALon HISTORY PHYSICAL HNO ID: [id number] Author: GERI STROUD APRN.CNP Service: Anesthesiology Author Type: Nurse Practitioner Type: H&P Filed: 04/09/2024 08:17 Note Text: HISTORY AND PHYSICAL EXAMINATION Melva Wilcox [place]um[place] 1980 SERVICE DATE: 04/09/2024 SERVICE TIME: 7:28 AM PRIMARY CARE PHYSICIAN: No primary care provider on file. SURGEON: Dr Mosley ANESTHESIA: MAC DIAGNOSIS: Biliary stricture [K83.1] PROCEDURE: ERCP Subjective CHIEF COMPLAINT: ERCP The reason for this visit is to perform a comprehensive review of the patient's past medical history, assess their current health status and obtain any additional testing required based on anesthesia guidelines. We will also identify any potential anesthesia problems or contraindications to the planned procedure. HPI: This is a 43 year old female who presents with biliary stricture presents for ERCP with Dr Mosley. Hx chronic pancreatitis secondary to alcohol abuse sober since 12/2022. Placement of bile stent 12/2023. C/o chronic epigastric pain, denies changes in bowel habits, no hematochezia or melena, no GERD. METS: Climb a flight of stairs or walk up a hill (5.50 METs) FUNCTIONAL STATUS: Independent PAST MEDICAL HISTORY Diagnosis Date Bile duct disease Blood clot in vein Essential hypertension PAST SURGICAL HISTORY Procedure Laterality Date DILATION AND CURETTAGE DXAND/THER NONOBSTETRIC Dilation AND curettage, X-2 LIG/TRNSXJ FLP TUBE ABDL/VAG APPR UNI/BI Tubal ligation PLACEMENT, BILE DUCT STENT 12/2023 FAMILY HISTORY Problem Relation Age of Onset Diabetes Maternal Uncle Asthma Brother Social History Tobacco Use Smoking status: Every Day Current packs/day: 0.50 Average packs/day: 0.5 packs/day for 30.0 years (15.0 ttl pk-yrs) Types: Cigarettes Smokeless tobacco: Never Vaping Use Vaping status: Never Used Substance Use Topics Alcohol use: Not Currently Comment: sober since 12/2022 Drug use: No Prior to Admission medications as of 04/09/24 0751 Medication Sig Last Dose Taking buprenorphine (BUTRANS) 15 mcg/hour patch Apply 1 Patch as directed one time a week. 04/08/2024 Yes acetaminophen (TYLENOL) 500 mg tablet Take 2 tablets by mouth every 6 hours. 04/08/2024 Yes iv contrast (will be provided with radiology [...] in the MR contrast administration guidelines link. Patient not taking: Reported on 11/22/2023 gabapentin (NEURONTIN) 100 mg capsule Take 2 capsules by mouth daily at bedtime for 30 days. Nicotine 21-14-7 mg/24 hr ptds Apply 1 Patch as directed once daily. dicloxacillin (DYNAPEN) 500 mg capsule Take 1 capsule by mouth four times daily. ibuprofen (MOTRIN IB ORAL) Take by mouth. iv contrast (will be provided with radiology test) MRI PANC/BRAYN Inject, intravenously, once for 1 dose. No [...] in the MR contrast administration guidelines link. Patient not taking: Reported on 06/28/2023 lactulose 10 gram/15 mL solution Take 30 mL by mouth once daily as needed for up to 2 doses. gabapentin (NEURONTIN) 300 mg capsule Take 1 capsule by mouth daily at bedtime for 30 days. omeprazole (PRILOSEC) 40 mg capsule Take 1 capsule by mouth once daily for 21 days. ALLERGIES No Known Allergies COMPLETE REVIEW OF SYSTEMS: GENERAL: No weight loss, malaise or fevers RESPIRATORY: tobacco abuse 15 pack years Cardiac: Negative for chest pain, leg swelling, hypertension, CHF or palpitations GI: No nausea, vomiting, or diarrhea and See HPI : No history of dysuria, frequency or incontinence MUSCULOSKELETAL: Negative for joint pain or swelling, back pain or muscle pain PSYCH: Negative for sleep disturbance, mood disorder and recent psychosocial stressors ENDOCRINE:Denies diabetes and thyroid problems NEURO: No Hx seizures, tremors or CVA Heme/Onc: hx blood clot abdominal, no hx clotting disorders, or cancer Objective PHYSICAL EXAM: 04/09/24 0747 BP: 115/78 Pulse: 89 Resp: 11 Temp: 36.9 ?C (98.4 ?F) TempSrc: Temporal SpO2: 99% Weight: 59 kg (130 lb) Height: 162.6 cm (5' 4) Body mass index is 22.31 kg/m?. MENTAL STATUS: AANDO HEENT: Normocephalic/atraumatic, pharynx clear LUNGS: Lungs clear to auscultation, Good diaphragmatic excursion CARDIAC (more content not included)... Normal [facility] XR ERCP READ ONLYon 04-09-20 XR ERCP READ ONLY * * *Final Report* * * DATE OF EXAM: Apr 09 2024 12:17PM AKO [id number] - XR ERCP READ ONLY / PROCEDURE REASON: ERCP * * * * Physician Interpretation * * * * EXAM TITLE: ERCP DATE: 04/09/2024 COMPARISON: 12/05/2023 CLINICAL INDICATION/HISTORY: The patient is a 43-year-old female with intraoperative fluoroscopic imaging from ERCP. TECHNIQUE: 17 spot films from an ERCP performed by Dr. Roel Mosley are presented for interpretation. Fluoroscopic Radiation Summary: Plane A, Air Kerma: 185.0 mGy Dose Area Product (DAP): Fluoro time: 9:34 min:sec FINDINGS: Contrast opacifies a relatively normal sized common bile duct and intrahepatic biliary radicles. There is no definite filling defect, stricture, dilation, mucosal abnormality, or extrinsic mass. Images demonstrate scope within the duodenum and removal of metallic common bile duct stent with subsequent placement of plastic pancreatic duct stent. IMPRESSION: Intraoperative fluoroscopic images from ERCP with removal of metal common bile duct stent and placement of pancreatic duct stent. Please refer to real-time operative report for further details. Brand Protection Manager: ESTHER Transcribe Date/Time: Apr 16 2024 3:06P Dictated by : AFSHIN HOLLOWAY DO This examination was interpreted and the report reviewed and electronically signed by: AFSHIN HOLLOWAY DO on Apr 16 2024 3:11PM EST [id number] Normal [facility] ----- MELVA KERNS ([id number]) 1980 F Date Time Provider Department 04/03/24 YUE MARCUM During your visit today, we recorded the following information about you: Yue Marcum APRN.CNP 04/03/2024 4:19 PM Signed Patient no-show to [facility] today. Email communication sent to schedulers. Patient will need to be rescheduled. Patient is scheduled for surgery with Dr. Davis on 04/10/2024 @ [facility] Allergies As of Date: 04/03/2024 (No Known Allergies) Date Reviewed: 12/05/2023 Reviewed by: Kalli Crooks, VIVIEN - Fully Assessed Prescriptions as of 04/03/2024 - buprenorphine (BUTRANS) 15 mcg/hour patch Apply 1 Patch as directed one time a week. - iv contrast (will be provided with radiology [...] in the MR contrast administration guidelines link. - gabapentin (NEURONTIN) 100 mg capsule Take 2 capsules by mouth daily at bedtime for 30 days. - Nicotine 21-14-7 mg/24 hr ptds Apply 1 Patch as directed once daily. - dicloxacillin (DYNAPEN) 500 mg capsule Take 1 capsule by mouth four times daily. - ibuprofen (MOTRIN IB ORAL) Take by mouth. - iv contrast (will be provided with radiology [...] in the MR contrast administration guidelines link. - acetaminophen (TYLENOL) 500 mg tablet Take 2 tablets by mouth every 6 hours. - lactulose 10 gram/15 mL solution Take 30 mL by mouth once daily as needed for up to 2 doses. - gabapentin (NEURONTIN) 300 mg capsule Take 1 capsule by mouth daily at bedtime for 30 days. - omeprazole (PRILOSEC) 40 mg capsule Take 1 capsule by mouth once daily for 21 days. 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] 10/29/2005 PAIN IN JOINT, LOWER LEG [M25.569] 10/29/2005 ANXIETY STATE NOS [F41.1] 02/13/2006 Pre-op examination [Z01.818] 05/08/2023 Essential hypertension [I10] 05/08/2023 Nicotine dependence, uncomplicated [F17.200] 11/02/2016 Diagnosed: 05/08/2023 Alcohol abuse [F10.10] 12/25/2022 Diagnosed: 05/08/2023 Portal vein thrombosis [I81] 09/13/2022 Diagnosed: 05/08/2023 Alcohol-induced chronic pancreatitis (HCC) [K86*05/08/2023 GERD (gastroesophageal reflux disease) [K21.9] 05/08/2023 Abdominal pain [R10.9] 05/09/2023 Acute on chronic pancreatitis (HCC) [K85.90, K8*05/10/2023 Alcohol-induced acute pancreatitis [K85.20] 05/12/2023 Encounter Status:Closed by SHOULDERS, YUE on 04/03/24 [facility] Abdomen/Pelvis W IV Cont ONL Yon 01-13-2024 Abdomen/Pelvis W IV Cont ONLY [facility] Imaging Services [address] [place] [address] [id number] Abdomen/Pelvis W IV Cont ONLY MR#: [id number] Acct: [id number] Name: MELVA KERNS Rep #: [id number] : 1980 F 43 From: Baron Sanchez MD PCP: Care Physician,No Primary Status: REG ER Study: Abdomen/Pelvis W IV Cont ONLY Date of Exam: Exam# [id number] Ordering Dr: Cong Marquez DO [id number] EXAM: CT ABDOMEN AND PELVIS WITH INTRAVENOUS CONTRAST CLINICAL INDICATION: Abdominal pain. TECHNIQUE: Helically acquired images were obtained of the abdomen and pelvis with intravenous contrast. This CT exam was performed using one or more of the following dose reduction techniques: automated exposure control, adjustment of the mA and/or kV according to patient size, and/or use of iterative reconstruction technique. CONTRAST: IV 100mL Isovue-370 RADIATION DOSE: CTDIvol = 10.28 mGy, DLP = 351.13 mGy-cm COMPARISON: CT chest, abdomen and pelvis with contrast 08/10/2023. FINDINGS: LOWER THORAX: Unremarkable. Lung bases are clear. No cardiomegaly. No significant pericardial effusion. ABDOMEN: LIVER: Unremarkable. Homogeneous. No focal mass. GALLBLADDER AND BILE DUCTS: Pneumobilia. Metallic wall stent extending from the CBD down to the duodenum. Small air-fluid level in size of the gallbladder. No calcified gallstones. No intra- or extrahepatic biliary ductal dilation. PANCREAS: Unremarkable. No focal cystic or solid mass. SPLEEN: Unremarkable. Normal size without focal cystic or solid mass. ADRENALS: Unremarkable. No nodules. KIDNEYS AND URETERS: Unremarkable. Normal renal size and position. No hydronephrosis. STOMACH AND BOWEL: Unremarkable. No stomach or bowel distention. No focal inflammatory change. No suspicious abnormalities of the stomach. Normal small bowel. No significant abnormality of the colon. PELVIS: APPENDIX: Normal appendix. BLADDER: Unremarkable. REPRODUCTIVE: Unremarkable as visualized. Normal anteverted uterus. No suspicious abnormality of the uterus and bilateral adnexal regions. ABDOMEN and PELVIS: INTRAPERITONEAL SPACE: Unremarkable. No ascites or other fluid collection. No free air. BONES/JOINTS: Unremarkable. No suspicious lytic or blastic abnormality. SOFT TISSUES: Unremarkable. No discrete abdominal or pelvic wall hernia. VASCULATURE: Unremarkable. Abdominal aorta is non-dilated. LYMPH NODES: Unremarkable. No enlarged lymph nodes. CT/Abdomen/Pelvis W IV Cont ONLY IMPRESSION: 1. Intact metallic Wallstent in the common bile duct down to the duodenum accounting for the pneumobilia and air-fluid level in size of the gallbladder fossa. 2. No suspicious acute abnormality in the abdomen and pelvis. 3. No significant interval change when compared to 08/10/2023. Electronically Signed: Baron Sanchez MD at 8:14 EDT , CC: Cong Marquez DO; No Primary Care Physician Brand Protection Manager: Signed Normal [facility] Basic Metabolic Profile (BMP )on 01-13-2024 BUN/CRE 10.6 RATIO Normal 10-20 [facility] Comment on above: Performed By: #### L 503.6005 #### [facility] [address] [place], [address] CA,Total 9.0 mg/dL Normal 8.5-10.1 [facility] Comment on above: Performed By: #### L 503.6005 #### [facility] [address] [place], [address] Chloride [Moles/Vol] 106 mmol/L Normal 98-107 [facility] Comment on above: Performed By: #### L 503.6005 #### [facility] [address] [place], [address] CO2 [Moles/Vol] 26.0 mmol/L Normal 21.0-32.0 [facility] Comment on above: Performed By: #### L 503.6005 #### [facility] [address] [place], [address] Creatinine [Mass/Vol] 0.95 mg/dL Normal 0.55-1.02 [facility] Comment on above: Result Comment: The validity of the calculated GFR GFRAA in patients over 70 years has not been determined. Clinical correlation is essential. Performed By: #### L 503.6005 #### [facility] [address] [place], [address] ECRCL 65.26 ml/min Normal [facility] Comment on above: Performed By: #### L 503.6005 #### [facility] [address] [place], [address] EST GFR - AA 82 mL/min Normal >60 [facility] Comment on above: Result Comment: Afri can [place]an GFR Calc Performed By: #### L 503.6005 #### [facility] [address] [place], [address] GAP 5 Normal 5-15 [facility] Comment on above: Performed By: #### L 503.6005 #### [facility] [address] [place], [address] GFR/1.73 sq M.predicted among non-blacks MDRD (S/P/Bld) [Vol rate/Area] 68 mL/min/{1.73_m2} Normal >60 [facility] Comment on above: Result Comment: Non- GFR Calc Performed By: #### L 503.6005 #### [facility] [address] [place], [address] Glucose [Mass/Vol] 112 mg/dL High 74-106 [facility] Comment on above: Result Comment: Fast ing Glucose result from 100 to 125 mg/dL suggests IMPAIRED HOMEOSTASIS per A.D.A. criteria. Performed By: #### L 503.6005 #### [facility] [address] [place], [address] Potassium [Moles/Vol] 4.0 mmol/L Normal 3.5-5.1 [facility] Comment on above: Result Comment: Mode rate Hemolysis, Result may be falsely increased. Performed By: #### L 503.6005 #### [facility] [address] [place], [address] Sodium [Moles/Vol] 137 mmol/L Normal 136-145 [facility] Comment on above: Performed By: #### L 503.6005 #### [facility] [address] [place], [address] Urea nitrogen [Mass/Vol] 10 mg/dL Normal 7-18 [facility] Comment on above: Performed By: #### L 503.6005 #### [facility] [address] [place], [address] CBC W/Diff, Automatedon 08-1 0-2023 Absolute Lymph 2.87 X10 3/uL Normal 0.83-4.51 [facility] Comment on above: Performed By: #### L 503.6005 #### [facility] [address] [place], [address] Absolute Neut 4.3 X10 3/uL Normal 2.0-7.7 [facility] Comment on above: Performed By: #### L 503.6005 #### [facility] [address] [place], [address] Basophils/100 WBC (Bld) 0.6 % Normal 0-1 [facility] Comment on above: Performed By: #### L 503.6005 #### [facility] [address] [place], [address] Eosinophils/100 WBC (Bld) 2.6 % Normal 0-5 [facility] Comment on above: Performed By: #### L 503.6005 #### [facility] [address] [place], [address] Erythrocyte distribution width (RBC) [Ratio] 13.8 % Normal 11.6-14.6 [facility] Comment on above: Performed By: #### L 503.6005 #### [facility] [address] [place], [address] Hematocrit (Bld) [Volume fraction] 42.0 % Normal 37-47 [facility] Comment on above: Performed By: #### L 503.6005 #### [facility] [address] [place], [address] Hemoglobin (Bld) [Mass/Vol] 14.0 g/dL Normal 12.0-15.0 [facility] Comment on above: Performed By: #### L 503.6005 #### [facility] [address] [place], [address] IG% 0.400 Normal 0.0-0.9 [facility] Comment on above: Result Comment: IG% - Immature Granulocytes (promyelocytes, myelocytes and metamyelocytes) > 1% indicates that a LEFT SHIFT is Present. Performed By: #### L 503.6005 #### [facility] [address] [place], [address] Lymphocytes/100 WBC (Bld) 35.6 % Normal 19-41 [facility] Comment on above: Performed By: #### L 503.6005 #### [facility] [address] [place], [address] MCH (RBC) [Entitic mass] 29.0 pg Normal 27.0-32.0 [facility] Comment on above: Performed By: #### L 503.6005 #### [facility] [address] [place], [address] MCHC (RBC) [Mass/Vol] 33.3 g/dL Normal 32-36 [facility] Comment on above: Performed By: #### L 503.6005 #### [facility] [address] [place], [address] MCV (RBC) [Entitic vol] 87.0 fL Normal 81-99 [facility] Comment on above: Performed By: #### L 503.6005 #### [facility] [address] [place], [address] Monocytes/100 WBC (Bld) 7.3 % Normal 0-10 [facility] Comment on above: Performed By: #### L 503.6005 #### [facility] [address] [place], [address] Neutrophils/100 WBC (Bld) 53.5 % Normal 47-70 [facility] Comment on above: Performed By: #### L 503.6005 #### [facility] [address] [place], [address] Nucleated RBC (Bld) [#/Vol] 0 10*3/uL Normal 0-5 [facility] Comment on above: Performed By: #### L 503.6005 #### [facility] [address] [place], [address] Platelet mean volume (Bld) [Entitic vol] 9.8 fL Normal 6.2-12.0 [facility] Comment on above: Performed By: #### L 503.6005 #### [facility] [address] [place], [address] Platelets (Bld) [#/Vol] 260 10*3/uL Normal 150-450 [facility] Comment on above: Performed By: #### L 503.6005 #### [facility] [address] [place], [address] RBC (Bld) [#/Vol] 4.83 10*6/uL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 Respiratory Rate 18 14 16 Blood Pressure 125/86 H 128/86 H 120/75 Blood Pressure Mean 99 100 90 Pulse Ox 100 98 99 Oxygen Delivery Method Room Air Room Air Room Air 09/13/23 22:00 09/13/23 22:53 Temperature 98.4 F Temperature Source Pulse Rate 89 Respiratory Rate 16 Blood Pressure 134/76 H 122/60 H Blood Pressure Mean 95 80 Pulse Ox 97 Oxygen Delivery Method Positive well nourished and well developed General Appearance ED: well developed and NAD HEENT Reports moist mucous membranes Neck supple and no JVD Resp normal respiratory effort and clear to auscultation bilaterally Cardio regular rate and regular rhythm GI non-distended Palpation: soft and tender epigastric, LUQ and RUQ; Negative for guarding or rebound tenderness present Ne (more content not included)... Normal [facility] Erythrocyte distribution wid th ratioOrdered By: ED PROVIDER on 09-13-2023 Erythrocyte distribution width (RBC) [Ratio] 13.7 % Normal 11.6-14.6 [facility] Comment on above: Performed By: #### L 501.2450 #### [facility] [address] [place] [address]. [place], [address] Erythrocyte distribution wid th standard deviationOrdered By: ED PROVIDER on 09-13-2023 Erythrocyte distribution width (RBC) [Entitic vol] 44.0 fL 35.1-43.9 [facility] Immature granulocytes/100 WB C Auto (Bld)Ordered By: ED PROVIDER on 09-13-2023 Immature granulocytes/100 WBC (Bld) 0.100 % 0.0-0.9 [facility] Comment on above: IG% - Immature Granu locytes (promyelocytes, myelocytes and metamyelocytes) > 1% indicates that a LEFT SHIFT is Present. Ketones Test strip Ql (U)Ord ered By: Sal Cottrell on 09-13-2023 Ketones Ql (U) Negative Negative [facility] - Chemistry and C hemistry - challengeOrdered By: Sal Cottrell on 09-13-2023 ALP [Catalytic activity/Vol] 96 U/L 45-117 [facility] Urea nitrogen/Creatinine [Mass ratio] 16.4 mg/mg 10-20 [facility] - Hematology and Cell countsOrdered By: ED PROVIDER on 09-13-2023 Nucleated RBC/100 WBC (Bld) [Ratio] 0 % 0-5 [facility] LipaseOrdered By: Sal vera on 09-13-2023 Lipase [Catalytic activity/Vol] 59 U/L Normal 13-75 [facility] Comment on above: Please note:LIPASE r evised reference range effective 22. New Lipase methodology. Expected to produce lower values than the previous assay method. NEW Reference Range: 13 - 75 U/L Result Comment: Hema norris note: LIPASE revised reference range effective 22. New Lipase methodology. Expected to produce lower values than the previous assay method. NEW Reference Range: 13 - 75 U/L Performed By: #### L 501.2450 #### [facility] [address] [place], [address] Mucus LM Ql (Urine sed)Order ed By: Sal Cottrell on 09-13-2023 Mucus Ql (Urine sed) 0 SEEN /hpf [facility] Nitrite Test strip Ql (U)Ord ered By: Sal Cottrell on 09-13-2023 Nitrite Ql (U) Negative Negative [facility] No Panel InformationOrdered By: Sal Cottrell on 09-13-2023 Estimated Creatinine Clearance Calc 78.47 ml/min [facility] Estimated GFR (MDRD) Amer 101 mL/min >60 [facility] Comment on above: GFR Calc Estimated GFR (MDRD) Non-Af Amer 83 mL/min >60 [facility] Comment on above: Non- GFR Calc Urine RBC 0 SEEN /hpf 0-5 [facility] ,Serum,hCG Quali.on 09-13-2023 HCG, SERUM QUAL Negative Normal [facility] Comment on above: Performed By: #### L 501.2450 #### [facility] [address] [place], [place], [id number] Protein Test strip Ql (U)Ord ered By: Sal Cottrell on 09-13-2023 Protein Ql (U) Negative Negative [facility] Serum or plasma calcium emma urement (mass/volume)Ordered By: Sal Cottrell on 09-13-2023 Calcium [Mass/Vol] 9.2 mg/dL 8.5-10.1 [facility] Serum or plasma choriogonado tropin detectionOrdered By: ED PROVIDER on 09-13-2023 HCG ( test) Ql Negative [facility] Serum or plasma creatinine m easurement (mass/volume)Ordered By: Sal Cottrell on 09-13-2023 Creatinine [Mass/Vol] 0.79 mg/dL Normal 0.55-1.02 [facility] Comment on above: The validity of the calculated GFR & GFRAA in patients over 70 years has not been determined. Clinical correlation is essential. Result Comment: The validity of the calculated GFR GFRAA in patients over 70 years has not been determined. Clinical correlation is essential. Performed By: #### L 501.2450 #### [facility] [address] [place], [place], [id number] Serum or plasma urea nitroge n measurement (mass/volume)Ordered By: Sal Cottrell on 09-13-2023 Urea nitrogen [Mass/Vol] 13 mg/dL Normal 7-18 [facility] Comment on above: Performed By: #### L 501.2450 #### [facility] [address] [place], [place], [address] Squamous epithelial cells de tection in urine sediment by light microscopyOrdered By: Sal Cottrell on 09-13-2023 Epithelial cells.squamous LM Ql (Urine sed) 0-5 SEEN /hpf 5-10 [facility] Thin prep Papanicolaou smear with manual screeningOrdered By: Sal Cottrell on 09-13-2023 Thin prep Papanicolaou smear with manual screening 3.4 g/dL 3.2-5.0 [facility] Thin prep Papanicolaou smear with manual screening 13 U/L 15-37 [facility] Thin prep Papanicolaou smear with manual screening 1 5-15 [facility] Urinalysis, Completeon 09-12 EPI,SQUAMOUS 0-5 SEEN Normal 5-10 [facility] Comment on above: Order Comment: CLEAN CATCH Performed By: #### L 501.2450 #### [facility] [address] [place], [address] BACTERIA 0 SEEN Normal None Seen [facility] Comment on above: Order Comment: CLEAN CATCH Performed By: #### L 501.2450 #### [facility] [address] [place], [address] Mucus Ql (Urine sed) 0 SEEN Normal [facility] Comment on above: Order Comment: CLEAN CATCH Performed By: #### L 501.2450 #### [facility] [address] [place], [address] RBC 0 SEEN Normal 0-5 [facility] Comment on above: Order Comment: CLEAN CATCH Performed By: #### L 501.2450 #### [facility] [address] [place], [address] WBC 0 SEEN Normal 0-5 [facility] Comment on above: Order Comment: CLEAN CATCH Performed By: #### L [id number] #### [facility] [address] [place], [address] Urine blood detectionOrdered By: Sal Cottrell on 09-13-2023 RBC Ql (U) Negative Negative [facility] Urine clarityOrdered By: Yani Cottrell on 09-13-2023 Clarity (U) Clear Clear [facility] Urine color determinationOrd ered By: Sal Cottrell on 09-13-2023 Color (U) Yellow Yellow [facility] Urine glucose detectionOrder ed By: Sal Cottrell on 09-13-2023 Glucose Ql (U) Normal mg/dl Normal [facility] Urine leukocyte esterase det ection by dipstickOrdered By: Sal Cottrell on 09-13-2023 Leukocyte esterase Test strip Ql (U) Negative Negative [facility] Urine pHOrdered By: Sal urias on 09-13-2023 pH (U) 7.0 [pH] 5.0 - 8.0 [facility] Urine sediment bacteria coun t by microscopy (number/high power field)Ordered By: Sal Cottrell on 09-13-2023 Bacteria LM.HPF (Urine sed) [#/Area] 0 /[HPF] None Seen [facility] Urine specific gravity measu rementOrdered By: Sal Cottrell on 09-13-2023 Specific gravity (U) [Rel density] 1.010 1.002-1.03 0 [facility] Urine urobilinogen measureme ntOrdered By: Sal Cottrell on 09-13-2023 Urobilinogen Ql (U) Normal mg/dl Normal [facility] Miscellaneous Lab Procedureo n 08-26-2023 [facility] [facility] Normal [facility] Comment on above: Order Comment: [id number] URINE TOX/RUN LOWEST [id number] URINE TOX/RUN LOWEST TEST Result Comment: [id number] 6+OXYCODONE-BUND (ng/mL) DRUG RESULT SCREEN CUTOFF ____ Amphetamines,Urine Negative ng/mL 1000 Amphetamine test includes Amphetamine and Methamphetamine. Barbiturates Negative ng/mL 200 Benzodiazepines Negative ng/mL 200 Cannabinoid Negative ng/mL 20 Cocaine (Metab) Negative ng/mL 300 Opiates Negative ng/mL 300 Opiates test includes Codeine, Morphine, Hydromorphone, Hydrocodone. Oxycodone/Oxymorphone,Urine Negative ng/mL 300 Test includes Oxycodone and Oxymorphone. TESTING PERFORMED AT [facility]. ORIGINAL REPORT ON FILE IN LAB CONTAINS ADDITIONAL TEST SITE INFORMATION. Performed By: #### L 500.4050, L100.0100 #### [facility] [address] [place], [address] Buprenorphine Drug Screenon 08-24-2023 BUP DRG SCREEN Negative Normal <10 ng/mL [facility] Comment on above: Order Comment: [id number] URINE TOX/RUN LOWEST TESTUNKNOWN Performed By: #### L 500.4050, L100.0100 #### [facility] [address] [place], [address] Laboratory - Drug toxicology Ordered By: Ivana Frederick on 08-24-2023 Amphetamines Ql (U) Negative <1000 ng/mL [facility] Benzodiazepines Ql (U) Negative < 200 ng/mL [facility] Cannabinoids Screen Ql (U) Negative < 50 ng/mL [facility] Cocaine Ql (U) Negative < 300 ng/mL [facility] Opiates Ql (U) Negative < 300 ng/mL [facility] No Panel InformationOrdered By: Ivana Frederick on 08-24-2023 MDMA (Ecstasy) Screen Negative < 500 ng/mL [facility] Miscellaneous Test See comment [facility] Comment on above: [id number] 6+OXYCODONE-B UND (ng/mL) DRUG RESULT SCREEN CUTOFF____ Amphetamines,Urine Negative ng/mL 1000 Amphetamine test includes Amphetamine and Methamphetamine.Barbiturates Negative ng/mL 200Benzodiazepines Negative ng/mL 200Cannabinoid Negative ng/mL 20Cocaine (Metab) Negative ng/mL 300Opiates Negative ng/mL 300 Opiates test includes Codeine, Morphine, Hydromorphone, Hydrocodone. Oxycodone/Oxymorphone,Urine Negative ng/mL 300 Test includes Oxycodone and Oxymorphone. TESTING PERFORMED AT [facility]. ORIGINAL REPORT ON FILE IN LAB CONTAINS ADDITIONAL TEST SITE INFORMATION. Urine Barbiturates Screen Negative < 200 ng/mL [facility] Urine Buprenorphine Screen Negative <10 ng/mL [facility] Urine Drug Screen Comment [facility] Comment on above: CONFIRMATORY TESTING FOR ALL POSITIVE URINE DRUG SCREENRESULTS WILL ONLY BE SENT OUT UPON PHYSICIAN ORDER. VISTA Urine Drug Screen methods provide only preliminaryanalytical test results. A more specific alternate chemicalmethod must be used in order to obtain a confirmedanalytical result. Gas chromatography/mass spectrometery(GC/MS) is the preferred confirmatory method. Clinicalconsideration and professional judgement should be appliedto any drug of abuse test result, particularly whenpreliminary positive results are used. URINE TCA TESTING MUST BE ORDERED SEPARATELY. USE TESTMNEMONIC: [facility] Urine Methadone Screen Negative < 300 ng/mL [facility] Urine Drug Screen (VISTA)on 08-24-2023 AMPHETAMINES Negative Normal <1000 ng/mL [facility] Comment on above: Order Comment: [id number] URINE TOX/RUN LOWEST TESTUNKNOWN Performed By: #### L 500.4050, L100.0100 #### [facility] [address] [place], [place], [id number] BARBITIURATES Negative Normal < 200 ng/mL [facility] Comment on above: Order Comment: [id number] URINE TOX/RUN LOWEST TESTUNKNOWN Performed By: #### L 500.4050, L100.0100 #### [facility] [address] [place], [place], [id number] BENZODIAZIPINE Negative Normal < 200 ng/mL [facility] Comment on above: Order Comment: [id number] URINE TOX/RUN LOWEST TESTUNKNOWN Performed By: #### L 500.4050, L100.0100 #### [facility] [address] [place], [address] COCAINE Negative Normal < 300 ng/mL [facility] Comment on above: Order Comment: [id number] URINE TOX/RUN LOWEST TESTUNKNOWN Performed By: #### L 500.4050, L100.0100 #### [facility] [address] [place], [address] ECSTACY Negative Normal < 500 ng/mL [facility] Comment on above: Order Comment: [id number] URINE TOX/RUN LOWEST TESTUNKNOWN Performed By: #### L 500.4050, L100.0100 #### [facility] [address] [place], [address] METHADONE Negative Normal < 300 ng/mL [facility] Comment on above: Order Comment: [id number] URINE TOX/RUN LOWEST TESTUNKNOWN Performed By: #### L 500.4050, L100.0100 #### [facility] [address] [place], [address] OPIATES Negative Normal < 300 ng/mL [facility] Comment on above: Order Comment: [id number] URINE TOX/RUN LOWEST TESTUNKNOWN Performed By: #### L 500.4050, L100.0100 #### [facility] [address] [place], [address] PCP Negative Normal < 25 ng/mL [facility] Comment on above: Order Comment: [id number] URINE TOX/RUN LOWEST TESTUNKNOWN Performed By: #### L 500.4050, L100.0100 #### [facility] [address] [place], [address] THC Negative Normal < 50 ng/mL [facility] Comment on above: Order Comment: [id number] URINE TOX/RUN LOWEST TESTUNKNOWN Performed By: #### L 500.4050, L100.0100 #### [facility] [address] [place], [address] VISTA UDS PH 5 Normal [facility] Comment on above: Order Comment: [id number] URINE TOX/RUN LOWEST TESTUNKNOWN Performed By: #### L 500.4050, L100.0100 #### [facility] [address] [place], [address] Urine phencyclidine (PCP) de tectionOrdered By: Ivana Frederick on 08-24-2023 Phencyclidine Ql (U) Negative < 25 ng/mL [facility] Miscellaneous Lab Procedureo n 08-21-2023 MISC LAB TEST Normal [facility] Comment on above: Order Comment: [id number] [employer] Result Comment: [id number] 6+OXYCODONE-BUND (ng/mL) DRUG RESULT SCREEN CUTOFF ____ Amphetamines,Urine Positive ng/mL 1000 Amphetamine test includes Amphetamine and Methamphetamine. Amphetamine Positive Amphetamine Conf,MS,UR 1331 ng/mL 500 Methamphetamine Negative 500 Barbiturates Negative ng/mL 200 Benzodiazepines Negative ng/mL 200 Cannabinoid Negative ng/mL 20 Cocaine (Metab) Negative ng/mL 300 Opiates Negative ng/mL 300 Opiates test includes Codeine, Morphine, Hydromorphone, Hydrocodone. Oxycodone/Oxymorphone,Urine Positive ng/mL 300 Test includes Oxycodone and Oxymorphone. Oxycodone Positive Oxycodone Conf,MS,UR >3000 ng/mL 300 Oxymorphone Positive Oxymorphone Conf,MS,UR >3000 ng/mL 300 TESTING PERFORMED AT [facility]. ORIGINAL REPORT ON FILE IN LAB CONTAINS ADDITIONAL TEST SITE INFORMATION. Performed By: #### L 505.5000, L801.1541 #### [facility] [address] [place], [address] Absolute lymphocyte countOrd ered By: ED PROVIDER on 08-10-2023 Lymphocytes Auto (Unsp spec) [#/Vol] 1.73 10*3/uL 0.83-4.51 [facility] Automated lymphocyte count a s percentage of total leukocytesOrdered By: ED PROVIDER on 08-10-2023 Lymphocytes/100 WBC Auto (Unsp spec) 16.9 % 19-41 [facility] Basophil percentageOrdered B y: James Wiley on 08-10-2023 Basophil percentage 0-5 SEEN /hpf 0-5 [facility] Basophil percentageOrdered B y: ED PROVIDER on 08-10-2023 Basophils/100 WBC (Bld) 0.4 % 0-1 [facility] Bilirubin [Mass/Vol] 0.40 mg/dL 0.20-1.00 [facility] Comment on above: For patients on eltr ombopag therapy, use of Dimension [place] TBIL is not recommended. Chloride [Moles/Vol] 107 mmol/L 98-107 [facility] Eosinophils/100 WBC (Bld) 1.2 % 0-5 [facility] Glucose [Mass/Vol] 116 mg/dL 74-106 [facility] Comment on above: Fasting Glucose resu lt from 100 to 125 mg/dL suggests IMPAIRED HOMEOSTASIS per A.D.A. criteria. Hemoglobin (Bld) [Mass/Vol] 12.5 g/dL 12.0-15.0 [facility] Monocytes/100 WBC (Bld) 5.8 % 0-10 [facility] Neutrophils (Bld) [#/Vol] 7.7 10*3/uL 2.0-7.7 [facility] Neutrophils/100 WBC (Bld) 75.3 % 47-70 [facility] Potassium [Moles/Vol] 3.7 mmol/L 3.5-5.1 [facility] Protein [Mass/Vol] 6.5 g/dL 6.4-8.2 [facility] Sodium [Moles/Vol] 140 mmol/L 136-145 [facility] WBC (Bld) [#/Vol] 10.3 10*3/uL 4.4-11.0 [facility] Bilirubin Test strip Ql (U)O rdered By: James Wiley on 08-10-2023 Bilirubin Ql (U) Negative Negative [facility] CBC W/Diff, Automatedon Absolute Lymph 1.73 X10 3/uL Normal 0.83-4.51 [facility] Comment on above: Performed By: #### L 500.4050, L100.0100 #### [facility] [address] [place], [address] Absolute Neut 7.7 X10 3/uL Normal 2.0-7.7 [facility] Comment on above: Performed By: #### L 500.4050, L100.0100 #### [facility] [address] [place], [address] Basophils/100 WBC (Bld) 0.4 % Normal 0-1 [facility] Comment on above: Performed By: #### L 500.4050, L100.0100 #### [facility] [address] [place], [address] Eosinophils/100 WBC (Bld) 1.2 % Normal 0-5 [facility] Comment on above: Performed By: #### L 500.4050, L100.0100 #### [facility] [address] [place], [address] Erythrocyte distribution width (RBC) [Ratio] 13.8 % Normal 11.6-14.6 [facility] Comment on above: Performed By: #### L 500.4050, L100.0100 #### [facility] [address] [place], [address] Hematocrit (Bld) [Volume fraction] 37.6 % Normal 37-47 [facility] Comment on above: Performed By: #### L 500.4050, L100.0100 #### [facility] [address] [place], [address] Hemoglobin (Bld) [Mass/Vol] 12.5 g/dL Normal 12.0-15.0 [facility] Comment on above: Performed By: #### L 500.4050, L100.0100 #### [facility] [address] [place], [address] IG% 0.400 Normal 0.0-0.9 [facility] Comment on above: Result Comment: IG% - Immature Granulocytes (promyelocytes, myelocytes and metamyelocytes) > 1% indicates that a LEFT SHIFT is Present. Performed By: #### L 500.4050, L100.0100 #### [facility] [address] [facility] [place], [address] Lymphocytes/100 WBC (Bld) 16.9 % Low 19-41 [facility] Comment on above: Performed By: #### L 500.4050, L100.0100 #### [facility] [address] [place], [address] MCH (RBC) [Entitic mass] 29.1 pg Normal 27.0-32.0 [facility] Comment on above: Performed By: #### L 500.4050, L100.0100 #### [facility] [address] [place], [address] MCHC (RBC) [Mass/Vol] 33.2 g/dL Normal 32-36 [facility] Comment on above: Performed By: #### L 500.4050, L100.0100 #### [facility] [address] [place], [address] MCV (RBC) [Entitic vol] 87.4 fL Normal 81-99 [facility] Comment on above: Performed By: #### L 500.4050, L100.0100 #### [facility] [address] [place], [address] Monocytes/100 WBC (Bld) 5.8 % Normal 0-10 [facility] Comment on above: Performed By: #### L 500.4050, L100.0100 #### [facility] [address] [place], [address] Neutrophils/100 WBC (Bld) 75.3 % High 47-70 [facility] Comment on above: Performed By: #### L 500.4050, L100.0100 #### [facility] [address] [place], [address] Nucleated RBC (Bld) [#/Vol] 0 10*3/uL Normal 0-5 [facility] Comment on above: Performed By: #### L 500.4050, L100.0100 #### [facility] [address] [place], [address] Platelet mean volume (Bld) [Entitic vol] 9.3 fL Normal 6.2-12.0 [facility] Comment on above: Performed By: #### L 500.4050, L100.0100 #### [facility] [address] [place], [address] Platelets (Bld) [#/Vol] 321 10*3/uL Normal 150-450 [facility] Comment on above: Performed By: #### L 500.4050, L100.0100 #### [facility] [address] [place], [address] RBC (Bld) [#/Vol] 4.30 10*6/uL Normal 4.2-5.4 [facility] Comment on above: Performed By: #### L 500.4050, L100.0100 #### [facility] [address] [place], [address] RDW SD 43.9 fl Normal 35.1-43.9 [facility] Comment on above: Performed By: #### L 500.4050, L100.0100 #### [facility] [address] [place], [address] WBC (Bld) [#/Vol] 10.3 10*3/uL Normal 4.4-11.0 [facility] Comment on above: Performed By: #### L 500.4050, L100.0100 #### [facility] [address] [place], [address] CT Chest, Abd, Pel w/Contras ton 08-10-2023 CT Chest, Abd, Pel w/Contrast [facility] Imaging Services [address] [place] [address] CT Chest, Abd, Pel w/Contrast MR#: [id number] Acct: [id number] Name: MELVA KERNS Rep #: [id number] : 1980 F 43 From: Renan Miller MD PCP: Care Physician,No Primary Status: [facility] ER Study: CT Chest, Abd, Pel w/Contrast Date of Exam: Exam# [id number] Ordering Dr: Tara Lynch [id number] STUDY: CT CHEST, ABDOMEN T PELVIS WITH CONTRAST REASON FOR EXAM: Female, 43 years old. Pain HAD ERCP TODAY-BILE DUCT STENT REMOVED AND FAILED PLACEMENT OF PANCREATIC STENT HX: PANCREATITIS, RADIATION DOSAGE (If Supplied By Facility): CTDIvol = ( 15.55 ) mGy, DLP = ( 700.24 ) mGycm TECHNIQUE: Transaxial imaging was performed following intravenous administration of IV 100mL Isovue-370. Multiplanar coronal and sagittal images were reformatted. Individualized dose optimization techniques were used for this CT. COMPARISON: February 07, 2023 FINDINGS: CHEST There is lower lung atelectasis. There is lingular consolidation. There is no demonstrated pleural abnormality. Normal heart and pericardium. Normal mediastinum. Normal hilar regions. Normal unenhanced pulmonary arteries. Normal aorta arch and descending thoracic aorta. Normal osseous structures. ABDOMEN There is pneumobilia. There is contrast in the gallbladder. There has been revision of stent in the common bile duct. There is heterogeneous density within the stent. Normal spleen. Normal pancreas. Normal bilateral adrenal glands. Normal right kidney. Normal left kidney. Normal visualized stomach. Normal small intestine. Normal colon. The appendix is visualized and appears normal. There is atherosclerotic calcification of the abdominal aorta, without a demonstrated aneurysm. Normal inferior vena cava. Normal retroperitoneum. Normal abdominal wall. Normal osseous structures. PELVIS Normal urinary bladder. Normal visualized small intestine. Normal visualized colon. There is mild pelvic fluid. There is no pelvic lymphadenopathy. There is 2.0 cm right ovarian cyst. Normal visualized uterus. Normal visualized pelvic arteries. Normal abdominal wall. Normal osseous structures. CT/CT Chest, Abd, Pel w/Contrast IMPRESSION: Pneumobilia and revision of biliary stent. Mild free fluid in the pelvis. Lingular infiltrate. Electronically Signed: Renan Miller MD at 21:41 EST , CC: ANURAG Meeks; No Primary Care Physician Brand Protection Manager: Signed Normal [facility] Comprehensive Metabolic Prof ilon 08-10-2023 Albumin [Mass/Vol] 3.3 g/dL Normal 3.2-5.0 [facility] Comment on above: Performed By: #### L 500.4050, L100.0100 #### [facility] [address] [place], [place], [id number] Albumin/Globulin [Mass ratio] 1.0 {ratio} Normal 0.9-2.4 [facility] Comment on above: Performed By: #### L 500.4050, L100.0100 #### [facility] [address] [place], [address] ALK P 131 U/L High 45-117 [facility] Comment on above: Performed By: #### L 500.4050, L100.0100 #### [facility] [address] [place], [address] ALT [Catalytic activity/Vol] 40 U/L Normal 13-56 [facility] Comment on above: Performed By: #### L 500.4050, L100.0100 #### [facility] [address] [place], [address] AST [Catalytic activity/Vol] 33 U/L Normal 15-37 [facility] Comment on above: Performed By: #### L 500.4050, L100.0100 #### [facility] [address] [place], [address] Bilirubin [Mass/Vol] 0.40 mg/dL Normal 0.20-1.00 [facility] Comment on above: Result Comment: For patients on eltrombopag therapy, use of Dimension [place] TBIL is not recommended. Performed By: #### L 500.4050, L100.0100 #### [facility] [address] [place], [address] BUN/CRE 10.8 RATIO Normal 10-20 [facility] Comment on above: Performed By: #### L 500.4050, L100.0100 #### [facility] [address] [place], [address] CA,Total 9.1 mg/dL Normal 8.5-10.1 [facility] Comment on above: Performed By: #### L 500.4050, L100.0100 #### [facility] [address] [place], [address] Chloride [Moles/Vol] 107 mmol/L Normal 98-107 [facility] Comment on above: Performed By: #### L 500.4050, L100.0100 #### [facility] [address] [place], [address] CO2 [Moles/Vol] 26.0 mmol/L Normal 21.0-32.0 [facility] Comment on above: Performed By: #### L 500.4050, L100.0100 #### [facility] [address] [place], [address] Creatinine [Mass/Vol] 0.84 mg/dL Normal 0.55-1.02 [facility] Comment on above: Result Comment: The validity of the calculated GFR GFRAA in patients over 70 years has not been determined. Clinical correlation is essential. Performed By: #### L 500.4050, L100.0100 #### [facility] [address] [place], [address] ECRCL 73.80 ml/min Normal [facility] Comment on above: Performed By: #### L 500.4050, L100.0100 #### [facility] [address] [place], [address] EST GFR - AA 95 mL/min Normal >60 [facility] Comment on above: Result Comment: Afri can [place] GFR Calc Performed By: #### L 500.4050, L100.0100 #### [facility] [address] [place], [address] GAP 7 Normal 5-15 [facility] Comment on above: Performed By: #### L 500.4050, L100.0100 #### [facility] [address] [place], [address] GFR/1.73 sq M.predicted among non-blacks MDRD (S/P/Bld) [Vol rate/Area] 79 mL/min/{1.73_m2} Normal >60 [facility] Comment on above: Result Comment: Non- GFR Calc Performed By: #### L 500.4050, L100.0100 #### [facility] [address] [place], [address] Globulin (S) [Mass/Vol] 3.2 g/dL Normal 2.2-4.2 [facility] Comment on above: Performed By: #### L 500.4050, L100.0100 #### [facility] [address] [place], [address] Glucose [Mass/Vol] 116 mg/dL High 74-106 [facility] Comment on above: Result Comment: Fast ing Glucose result from 100 to 125 mg/dL suggests IMPAIRED HOMEOSTASIS per A.D.A. criteria. Performed By: #### L 500.4050, L100.0100 #### [facility] [address] [place], [address] Potassium [Moles/Vol] 3.7 mmol/L Normal 3.5-5.1 [facility] Comment on above: Performed By: #### L 500.4050, L100.0100 #### [facility] [address] [place], [address] Sodium [Moles/Vol] 140 mmol/L Normal 136-145 [facility] Comment on above: Performed By: #### L 500.4050, L100.0100 #### [facility] [address] [place], [address] T PROT 6.5 g/dL Normal 6.4-8.2 [facility] Comment on above: Performed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 U/L 15-37 [facility] Thin prep Papanicolaou smear with manual screening 5 5-15 [facility] EGD - THERAPEUTIC, EUS, OR T UBE INTERVENTIONSon 05-08-2023 [facility] HCG QUAL URon 05-08-2023 HCG ( test) Ql (U) Negative Negative [facility] Absolute lymphocyte countOrd ered By: Gualberto Sabillon on 04-11-2023 Lymphocytes Auto (Unsp spec) [#/Vol] 2.23 10*3/uL 0.83-4.51 [facility] Basophil percentageOrdered B y: Gualberto Sabillon on 04-11-2023 Basophils/100 WBC (Bld) 0.4 % 0-1 [facility] [facility] Bilirubin [Mass/Vol] 0.40 mg/dL 0.20-1.00 [facility] Comment on above: For patients on eltr ombopag therapy, use of Dimension [place] TBIL is not recommended. Chloride [Moles/Vol] 105 mmol/L 98-107 [facility] Eosinophils/100 WBC (Bld) 2.1 % 0-5 [facility] Glucose [Mass/Vol] 98 mg/dL 74-106 [facility] Neutrophils (Bld) [#/Vol] 5.4 10*3/uL 2.0-7.7 [facility] Neutrophils/100 WBC (Bld) 63.2 % 47-70 [facility] Potassium [Moles/Vol] 3.1 mmol/L 3.5-5.1 [facility] Protein [Mass/Vol] 7.0 g/dL 6.4-8.2 [facility] Sodium [Moles/Vol] 137 mmol/L 136-145 [facility] WBC (Bld) [#/Vol] 8.6 10*3/uL 4.4-11.0 [facility] Beta hCG serum qualOrdered B y: Gualberto Sabillon on 04-11-2023 Beta HCG ( test) Ql Negative [facility] Blood erythrocytes count (nu mber/volume)Ordered By: Gualberto Sabillon on 04-11-2023 RBC (Bld) [#/Vol] 4.19 10*6/uL 4.2-5.4 [facility] Blood hemoglobin measurement (mass/volume)Ordered By: Gualberto Sabillon on 04-11-2023 Hemoglobin (Bld) [Mass/Vol] 12.8 g/dL 12.0-15.0 [facility] Blood lymphocytes/100 leukoc ytesOrdered By: Gualberto Sabillon on 04-11-2023 Lymphocytes/100 WBC (Bld) 26.0 % 19-41 [facility] Blood monocytes/100 leukocyt esOrdered By: Gualberto Sabillon on 04-11-2023 Monocytes/100 WBC (Bld) 7.7 % 0-10 [facility] Blood platelet mean volumeOr dered By: Gualberto Sabillon on 04-11-2023 Platelet mean volume (Bld) [Entitic vol] 9.5 fL 6.2-12.0 [facility] Determination of erythrocyte mean corpuscular volume (MCV)Ordered By: Gualberto Sabillon on 04-11-2023 MCV (RBC) [Entitic vol] 92.6 fL 81-99 [facility] Direct bilirubinOrdered By: Gualberto Sabillon on 04-11-2023 Bilirubin.direct [Mass/Vol] 0.12 mg/dL 0.00-0.30 [facility] Hematocrit Auto (Bld) [Volum e fraction]Ordered By: Gualberto Sabillon on 04-11-2023 Hematocrit (Bld) [Volume fraction] 38.8 % 37-47 [facility] Laboratory - Chemistry and C hemistry - challengeOrdered By: Gualberto Sabillon on 04-11-2023 ALP [Catalytic activity/Vol] 120 U/L 45-117 [facility] ALT [Catalytic activity/Vol] 17 U/L 13-56 [facility] CO2 [Moles/Vol] 27.0 mmol/L 21.0-32.0 [facility] Globulin (S) [Mass/Vol] 3.7 g/dL 2.2-4.2 [facility] Lipase [Catalytic activity/Vol] 296 U/L 13-75 [facility] Comment on above: Please note:LIPASE r evised reference range effective 22. New Lipase methodology. Expected to produce lower values than the previous assay method. NEW Reference Range: 13 - 75 U/L Urea nitrogen/Creatinine [Mass ratio] 18.8 mg/mg 10-20 [facility] Laboratory - Hematology and Cell countsOrdered By: Gualberto Sabillon on 04-11-2023 Erythrocyte distribution width (RBC) [Entitic vol] 48.4 fL 35.1-43.9 [facility] Erythrocyte distribution width (RBC) [Ratio] 14.3 % 11.6-14.6 [facility] Immature granulocytes/100 WBC (Bld) 0.600 % 0.0-0.9 [facility] Comment on above: IG% - Immature Granu locytes (promyelocytes, myelocytes and metamyelocytes) > 1% indicates that a LEFT SHIFT is Present. MCH (RBC) [Entitic mass] 30.5 pg 27.0-32.0 [facility] Nucleated RBC/100 WBC (Bld) [Ratio] 0 % 0-5 [facility] MCHC Auto (RBC) [Mass/Vol]Or dered By: Gualberto Sabillon on 04-11-2023 MCHC (RBC) [Mass/Vol] 33.0 g/dL 32-36 [facility] No Panel InformationOrdered By: Gualberto Sabillon on 04-11-2023 Estimated Creatinine Clearance Calc 97.87 ml/min [facility] Estimated GFR (MDRD) Amer 130 mL/min >60 [facility] Comment on above: GFR Calc Estimated GFR (MDRD) Non-Af Amer 107 mL/min >60 [facility] Comment on above: Non- GFR Calc Ethyl Alcohol Level < 3.0 mg/dL [facility] Comment on above: The serum:whole bloo d ethanol ratio is approximately 1.14and varies slightly with hematocrit. Medical Alcohol reference interval and critical value innon-tolerant individuals; 50 - 100 Impairment 100 Intoxication 100 - 250 Severe Poisoning 250 - 400 Deep/possible fatal coma Platelets bldOrdered By: Alberto Sabillon on 04-11-2023 Platelets (Bld) [#/Vol] 327 10*3/uL 150-450 [facility] Serum or plasma albumin emma urement (mass/volume)Ordered By: Gualberto Sabillon on 04-11-2023 Albumin [Mass/Vol] 3.3 g/dL 3.2-5.0 [facility] Serum or plasma calcium emma urement (mass/volume)Ordered By: Gualberto Sabillon on 04-11-2023 Calcium [Mass/Vol] 8.6 mg/dL 8.5-10.1 [facility] Serum or plasma creatinine m easurement (mass/volume)Ordered By: Gualberto Sabillon on 04-11-2023 Creatinine [Mass/Vol] 0.64 mg/dL 0.55-1.02 [facility] Comment on above: The validity of the calculated GFR & GFRAA in patients over 70 years has not been determined. Clinical correlation is essential. Serum or plasma urea nitroge n measurement (mass/volume)Ordered By: Gualberto Sabillon on 04-11-2023 Urea nitrogen [Mass/Vol] 12 mg/dL 7-18 [facility] Thin prep Papanicolaou smear with manual screeningOrdered By: Gualberto Sabillon on 04-11-2023 Thin prep Papanicolaou smear with manual screening 13 U/L 15-37 [facility] Thin prep Papanicolaou smear with manual screening 5 5-15 [facility] Absolute lymphocyte countOrd ered By: Ronni Lemos on 02-22-2023 Lymphocytes Auto (Unsp spec) [#/Vol] 2.37 10*3/uL 0.83-4.51 [facility] Basophil percentageOrdered B y: Ronni Lemos on 02-22-2023 Basophils/100 WBC (Bld) 0.6 % 0-1 [facility] Bilirubin [Mass/Vol] 0.30 mg/dL 0.20-1.00 [facility] Comment on above: For patients on eltr ombopag therapy, use of Dimension [place] TBIL is not recommended. Chloride [Moles/Vol] 103 mmol/L 98-107 [facility] Eosinophils/100 WBC (Bld) 1.9 % 0-5 [facility] Glucose [Mass/Vol] 116 mg/dL 74-106 [facility] Comment on above: Fasting Glucose resu lt from 100 to 125 mg/dL suggests IMPAIRED HOMEOSTASIS per A.D.A. criteria. Neutrophils (Bld) [#/Vol] 6.3 10*3/uL 2.0-7.7 [facility] Neutrophils/100 WBC (Bld) 65.1 % 47-70 [facility] Potassium [Moles/Vol] 3.9 mmol/L 3.5-5.1 [facility] Protein [Mass/Vol] 7.6 g/dL 6.4-8.2 [facility] Sodium [Moles/Vol] 135 mmol/L 136-145 [facility] WBC (Bld) [#/Vol] 9.8 10*3/uL 4.4-11.0 [facility] Bilirubin Test strip Ql (U)O rdered By: Ronni Lemos on 02-22-2023 Bilirubin Ql (U) Negative Negative [facility] Blood erythrocytes count (nu mber/volume)Ordered By: Ronni Lemos on 02-22-2023 RBC (Bld) [#/Vol] 4.19 10*6/uL 4.2-5.4 [facility] Blood hemoglobin measurement (mass/volume)Ordered By: Ronni Lemos on 02-22-2023 Hemoglobin (Bld) [Mass/Vol] 13.1 g/dL 12.0-15.0 [facility] Blood lymphocytes/100 leukoc ytesOrdered By: Ronni Lemos on 02-22-2023 Lymphocytes/100 WBC (Bld) 24.3 % 19-41 [facility] Blood monocytes/100 leukocyt esOrdered By: Ronni Lemos on 02-22-2023 Monocytes/100 WBC (Bld) 7.8 % 0-10 [facility] Blood platelet mean volumeOr dered By: Ronni Lemos on 02-22-2023 Platelet mean volume (Bld) [Entitic vol] 10.0 fL 6.2-12.0 [facility] Determination of erythrocyte mean corpuscular volume (MCV)Ordered By: Ronni Lemos on 02-22-2023 MCV (RBC) [Entitic vol] 94.7 fL 81-99 [facility] Direct bilirubinOrdered By: Ronni Lemos on 02-22-2023 Bilirubin.direct [Mass/Vol] 0.08 mg/dL 0.00-0.30 [facility] Hematocrit Auto (Bld) [Volum e fraction]Ordered By: Ronni Lemos on 02-22-2023 Hematocrit (Bld) [Volume fraction] 39.7 % 37-47 [facility] Ketones Test strip Ql (U)Ord ered By: Ronni Lemos on 02-22-2023 Ketones Ql (U) Negative Negative [facility] Laboratory - Chemistry and C hemistry - challengeOrdered By: Ronni Lemos on 02-22-2023 HCG ( test) Ql (U) Negative [facility] Comment on above: Very dilute urine sp ecimens, as indicated by a low specificgravity, may not contain compliance representative levels of hCG. If is still suspected, a first morning urinespecimen should be collected 48 hours later and tested. ALP [Catalytic activity/Vol] 93 U/L 45-117 [facility] ALT [Catalytic activity/Vol] 24 U/L 13-56 [facility] CO2 [Moles/Vol] 27.0 mmol/L 21.0-32.0 [facility] Globulin (S) [Mass/Vol] 3.8 g/dL 2.2-4.2 [facility] Lipase [Catalytic activity/Vol] 27 U/L 13-75 [facility] Comment on above: Please note:LIPASE r evised reference range effective 22. New Lipase methodology. Expected to produce lower values than the previous assay method. NEW Reference Range: 13 - 75 U/L Urea nitrogen/Creatinine [Mass ratio] 17.6 mg/mg 10-20 [facility] Laboratory - Hematology and Cell countsOrdered By: Ronni Lemos on 02-22-2023 Erythrocyte distribution width (RBC) [Entitic vol] 48.0 fL 35.1-43.9 [facility] Erythrocyte distribution width (RBC) [Ratio] 13.8 % 11.6-14.6 [facility] Immature granulocytes/100 WBC (Bld) 0.300 % 0.0-0.9 [facility] Comment on above: IG% - Immature Granu locytes (promyelocytes, myelocytes and metamyelocytes) > 1% indicates that a LEFT SHIFT is Present. MCH (RBC) [Entitic mass] 31.3 pg 27.0-32.0 [facility] Nucleated RBC/100 WBC (Bld) [Ratio] 0 % 0-5 [facility] MCHC Auto (RBC) [Mass/Vol]Or dered By: Ronni Lemos on 02-22-2023 MCHC (RBC) [Mass/Vol] 33.0 g/dL 32-36 [facility] Nitrite Test strip Ql (U)Ord ered By: Ronni Lemos on 02-22-2023 Nitrite Ql (U) Negative Negative [facility] No Panel InformationOrdered By: Ronni Lemos on 02-22-2023 Estimated Creatinine Clearance Calc 79.29 ml/min [facility] Estimated GFR (MDRD) Amer 101 mL/min >60 [facility] Comment on above: GFR Calc Estimated GFR (MDRD) Non-Af Amer 84 mL/min >60 [facility] Comment on above: Non- GFR Calc Platelets bldOrdered By: Felice Lemos on 02-22-2023 Platelets (Bld) [#/Vol] 366 10*3/uL 150-450 [facility] Protein Test strip Ql (U)Ord ered By: Ronni Lemos on 02-22-2023 Protein Ql (U) Negative Negative [facility] Serum or plasma albumin emma urement (mass/volume)Ordered By: Ronni Lemos on 02-22-2023 Albumin [Mass/Vol] 3.8 g/dL 3.2-5.0 [facility] Serum or plasma calcium emma urement (mass/volume)Ordered By: Ronni Lemos on 02-22-2023 Calcium [Mass/Vol] 9.2 mg/dL 8.5-10.1 [facility] Serum or plasma creatinine m easurement (mass/volume)Ordered By: Ronni Lemos on 02-22-2023 Creatinine [Mass/Vol] 0.79 mg/dL 0.55-1.02 [facility] Comment on above: The validity of the calculated GFR & GFRAA in patients over 70 years has not been determined. Clinical correlation is essential. Serum or plasma urea nitroge n measurement (mass/volume)Ordered By: Ronni Lemos on 02-22-2023 Urea nitrogen [Mass/Vol] 14 mg/dL 7-18 [facility] Thin prep Papanicolaou smear with manual screeningOrdered By: Ronni Lemos on 02-22-2023 Thin prep Papanicolaou smear with manual screening 14 U/L 15-37 [facility] Thin prep Papanicolaou smear with manual screening 5 5-15 [facility] Urine blood detectionOrdered By: Ronni Lemos on 02-22-2023 RBC Ql (U) Negative Negative [facility] Urine clarityOrdered By: Felice Lemos on 02-22-2023 Clarity (U) Clear Clear [facility] Urine color determinationOrd ered By: Ronni Lemos on 02-22-2023 Color (U) Yellow Yellow [facility] Urine glucose detectionOrder ed By: Ronni Lemos on 02-22-2023 Glucose Ql (U) Normal mg/dl Normal [facility] Urine leukocyte esterase det ection by dipstickOrdered By: Ronni Lemos on 02-22-2023 Leukocyte esterase Test strip Ql (U) 25 /ul Negative [facility] Urine pHOrdered By: Ronni marr on 02-22-2023 pH (U) 7.0 [pH] 5.0 - 8.0 [facility] Urine specific gravity measu rementOrdered By: Ronni Lemos on 02-22-2023 Specific gravity (U) [Rel density] 1.010 1.002-1.03 0 [facility] Urobilinogen Auto test strip Ql (U)Ordered By: Ronni Lemos on 02-22-2023 Urobilinogen Ql (U) Normal mg/dl Normal [facility] Absolute lymphocyte countOrd ered By: Lonnie Urena on 01-26-2023 Lymphocytes Auto (Unsp spec) [#/Vol] 1.86 10*3/uL 0.83-4.51 [facility] Basophil percentageOrdered B y: Lonnie Urena on 01-26-2023 Basophils/100 WBC (Bld) 0.6 % 0-1 [facility] Bilirubin [Mass/Vol] 0.20 mg/dL 0.20-1.00 [facility] Comment on above: For patients on eltr ombopag therapy, use of Dimension [place] TBIL is not recommended. Chloride [Moles/Vol] 105 mmol/L 98-107 [facility] Eosinophils/100 WBC (Bld) 3.7 % 0-5 [facility] Glucose [Mass/Vol] 103 mg/dL 74-106 [facility] Comment on above: Fasting Glucose resu lt from 100 to 125 mg/dL suggests IMPAIRED HOMEOSTASIS per A.D.A. criteria. LDH [Catalytic activity/Vol] 145 U/L 84-246 [facility] Neutrophils (Bld) [#/Vol] 5.5 10*3/uL 2.0-7.7 [facility] Neutrophils/100 WBC (Bld) 66.9 % 47-70 [facility] Potassium [Moles/Vol] 3.4 mmol/L 3.5-5.1 [facility] Protein [Mass/Vol] 7.2 g/dL 6.4-8.2 [facility] Sodium [Moles/Vol] 137 mmol/L 136-145 [facility] WBC (Bld) [#/Vol] 8.2 10*3/uL 4.4-11.0 [facility] Blood erythrocytes count (nu mber/volume)Ordered By: Lonnie Urena on 01-26-2023 RBC (Bld) [#/Vol] 3.96 10*6/uL 4.2-5.4 [facility] Blood hemoglobin measurement (mass/volume)Ordered By: Lonnie Urena on 01-26-2023 Hemoglobin (Bld) [Mass/Vol] 12.5 g/dL 12.0-15.0 [facility] Blood lymphocytes/100 leukoc ytesOrdered By: Lonnie Urena on 01-26-2023 Lymphocytes/100 WBC (Bld) 22.7 % 19-41 [facility] Blood monocytes/100 leukocyt esOrdered By: Lonnie Urena on 01-26-2023 Monocytes/100 WBC (Bld) 5.9 % 0-10 [facility] Blood platelet mean volumeOr dered By: Lonnie Urena on 01-26-2023 Platelet mean volume (Bld) [Entitic vol] 9.4 fL 6.2-12.0 [facility] Determination of erythrocyte mean corpuscular volume (MCV)Ordered By: Lnonie Urena on 01-26-2023 MCV (RBC) [Entitic vol] 98.0 fL 81-99 [facility] Hematocrit Auto (Bld) [Volum e fraction]Ordered By: Lonnie Urena on 01-26-2023 Hematocrit (Bld) [Volume fraction] 38.8 % 37-47 [facility] INR in Blood by Coagulation assayOrdered By: Lonnie Urena on 01-26-2023 INR Coag (Bld) [Relative time] 0.9 {INR} [facility] Laboratory - Chemistry and C hemistry - challengeOrdered By: Lonnie Urena on 01-26-2023 ALP [Catalytic activity/Vol] 89 U/L 45-117 [facility] ALT [Catalytic activity/Vol] 19 U/L 13-56 [facility] CO2 [Moles/Vol] 25.0 mmol/L 21.0-32.0 [facility] Globulin (S) [Mass/Vol] 3.6 g/dL 2.2-4.2 [facility] Urea nitrogen/Creatinine [Mass ratio] 16.2 mg/mg 10-20 [facility] Laboratory - CoagulationOrde red By: Lonnie Urena on 01-26-2023 aPTT Coag (Bld) [Time] 29.0 s 24.1-36.2 [facility] Coag (PPP) [Time] 12.1 s 11.7-14.9 [facility] - Hematology and Cell countsOrdered By: Lonnie Urena on 01-26-2023 Erythrocyte distribution width (RBC) [Entitic vol] 49.3 fL 35.1-43.9 [facility] Erythrocyte distribution width (RBC) [Ratio] 13.6 % 11.6-14.6 [facility] Immature granulocytes/100 WBC (Bld) 0.200 % 0.0-0.9 [facility] Comment on above: IG% - Immature Granu locytes (promyelocytes, myelocytes and metamyelocytes) > 1% indicates that a LEFT SHIFT is Present. MCH (RBC) [Entitic mass] 31.6 pg 27.0-32.0 [facility] Nucleated RBC/100 WBC (Bld) [Ratio] 0 % 0-5 [facility] MCHC Auto (RBC) [Mass/Vol]Or dered By: Lonnie Urena on 01-26-2023 MCHC (RBC) [Mass/Vol] 32.2 g/dL 32-36 [facility] No Panel InformationOrdered By: Lonnie Urena on 01-26-2023 D-Dimer Quantitative (PE/DVT) < 0.27 FEU/ug/m 0.27-0.49 [facility] Comment on above: NORMAL D-Dimer level (<0.50) indicates no DVT or PE. Estimated Creatinine Clearance Calc 84.65 ml/min [facility] Estimated GFR (MDRD) Amer 110 mL/min >60 [facility] Comment on above: GFR Calc Estimated GFR (MDRD) Non-Af Amer 91 mL/min >60 [facility] Comment on above: Non- GFR Calc Platelets bldOrdered By: Jim Urena on 01-26-2023 Platelets (Bld) [#/Vol] 333 10*3/uL 150-450 [facility] Serum or plasma albumin emma urement (mass/volume)Ordered By: Lonnie Urena on 01-26-2023 Albumin [Mass/Vol] 3.6 g/dL 3.2-5.0 [facility] Serum or plasma albumin/glob ulin mass ratioOrdered By: Lonnie Urena on 01-26-2023 Albumin/Globulin [Mass ratio] 1.0 {ratio} 0.9-2.4 [facility] Serum or plasma calcium emma urement (mass/volume)Ordered By: Lonnie Urena on 01-26-2023 Calcium [Mass/Vol] 8.9 mg/dL 8.5-10.1 [facility] Serum or plasma creatinine m easurement (mass/volume)Ordered By: Lonnie Urena on 01-26-2023 Creatinine [Mass/Vol] 0.74 mg/dL 0.55-1.02 [facility] Comment on above: The validity of the calculated GFR & GFRAA in patients over 70 years has not been determined. Clinical correlation is essential. Serum or plasma urea nitroge n measurement (mass/volume)Ordered By: Lonnie Urena on 01-26-2023 Urea nitrogen [Mass/Vol] 12 mg/dL 7-18 [facility] Thin prep Papanicolaou smear with manual screeningOrdered By: Lonnie Urena on 01-26-2023 Thin prep Papanicolaou smear with manual screening 13 U/L 15-37 [facility] Thin prep Papanicolaou smear with manual screening 7 5-15 [facility] Absolute lymphocyte countOrd ered By: Sal Cassidy on 01-04-2023 Lymphocytes Auto (Unsp spec) [#/Vol] 0.83 10*3/uL 0.83-4.51 [facility] Basophil percentageOrdered B y: Sal Cassidy on 01-04-2023 Basophils/100 WBC (Bld) 0.4 % 0-1 [facility] Bilirubin [Mass/Vol] 0.20 mg/dL 0.20-1.00 [facility] Comment on above: For patients on eltr ombopag therapy, use of Dimension [place] TBIL is not recommended. Chloride [Moles/Vol] 109 mmol/L 98-107 [facility] Eosinophils/100 WBC (Bld) 0.0 % 0-5 [facility] Glucose [Mass/Vol] 231 mg/dL 74-106 [facility] Comment on above: Glucose result great er than or equal to 200 mg/dLsuggests DIABETES MELLITUS per A.D.A. criteria. Neutrophils (Bld) [#/Vol] 3.7 10*3/uL 2.0-7.7 [facility] Neutrophils/100 WBC (Bld) 78.6 % 47-70 [facility] Potassium [Moles/Vol] 3.8 mmol/L 3.5-5.1 [facility] Protein [Mass/Vol] 6.0 g/dL 6.4-8.2 [facility] Sodium [Moles/Vol] 138 mmol/L 136-145 [facility] WBC (Bld) [#/Vol] 4.7 10*3/uL 4.4-11.0 [facility] Blood erythrocytes count (nu mber/volume)Ordered By: Sal Cassidy on 01-04-2023 RBC (Bld) [#/Vol] 3.36 10*6/uL 4.2-5.4 [facility] Blood hemoglobin measurement (mass/volume)Ordered By: Sal Cassidy on 01-04-2023 Hemoglobin (Bld) [Mass/Vol] 11.2 g/dL 12.0-15.0 [facility] Blood lymphocytes/100 leukoc ytesOrdered By: Sal Cassidy on 01-04-2023 Lymphocytes/100 WBC (Bld) 17.8 % 19-41 [facility] Blood monocytes/100 leukocyt esOrdered By: Sal Cassidy on 01-04-2023 Monocytes/100 WBC (Bld) 2.8 % 0-10 [facility] Blood platelet mean volumeOr dered By: Sal Cassidy on 01-04-2023 Platelet mean volume (Bld) [Entitic vol] 10.2 fL 6.2-12.0 [facility] Determination of erythrocyte mean corpuscular volume (MCV)Ordered By: Sal Cassidy on 01-04-2023 MCV (RBC) [Entitic vol] 99.4 fL 81-99 [facility] Hematocrit Auto (Bld) [Volum e fraction]Ordered By: Sal Cassidy on 01-04-2023 Hematocrit (Bld) [Volume fraction] 33.4 % 37-47 [facility] - Chemistry and C hemistry - challengeOrdered By: Sal Cassiyd on 01-04-2023 ALP [Catalytic activity/Vol] 126 U/L 45-117 [facility] ALT [Catalytic activity/Vol] 24 U/L 13-56 [facility] CO2 [Moles/Vol] 25.0 mmol/L 21.0-32.0 [facility] Globulin (S) [Mass/Vol] 3.5 g/dL 2.2-4.2 [facility] Lipase [Catalytic activity/Vol] 26 U/L 13-75 [facility] Comment on above: Please note:LIPASE r evised reference range effective 22. New Lipase methodology. Expected to produce lower values than the previous assay method. NEW Reference Range: 13 - 75 U/L Urea nitrogen/Creatinine [Mass ratio] 12.4 mg/mg 10-20 [facility] - Hematology and Cell countsOrdered By: Sal Cassidy on 01-04-2023 Erythrocyte distribution width (RBC) [Entitic vol] 48.1 fL 35.1-43.9 [facility] Erythrocyte distribution width (RBC) [Ratio] 13.2 % 11.6-14.6 [facility] Immature granulocytes/100 WBC (Bld) 0.400 % 0.0-0.9 [facility] Comment on above: IG% - Immature Granu locytes (promyelocytes, myelocytes and metamyelocytes) > 1% indicates that a LEFT SHIFT is Present. MCH (RBC) [Entitic mass] 33.3 pg 27.0-32.0 [facility] Nucleated RBC/100 WBC (Bld) [Ratio] 0 % 0-5 [facility] MCHC Auto (RBC) [Mass/Vol]Or dered By: Sal Cassidy on 01-04-2023 MCHC (RBC) [Mass/Vol] 33.5 g/dL 32-36 [facility] Comment on above: Delta: 31.9 on 01/03 No Panel InformationOrdered By: Sal Cassidy on 01-04-2023 Estimated Creatinine Clearance Calc 97.87 ml/min [facility] Estimated GFR (MDRD) Amer 129 mL/min >60 [facility] Comment on above: GFR Calc Estimated GFR (MDRD) Non-Af Amer 106 mL/min >60 [facility] Comment on above: Non- GFR Calc Platelets bldOrdered By: Yani Cassidy on 01-04-2023 Platelets (Bld) [#/Vol] 407 10*3/uL 150-450 [facility] Serum or plasma albumin emma urement (mass/volume)Ordered By: Sal Cassidy on 01-04-2023 Albumin [Mass/Vol] 2.5 g/dL 3.2-5.0 [facility] Serum or plasma albumin/glob ulin mass ratioOrdered By: Sal Cassidy on 01-04-2023 Albumin/Globulin [Mass ratio] 0.7 {ratio} 0.9-2.4 [facility] Serum or plasma calcium emma urement (mass/volume)Ordered By: Sal Cassidy on 01-04-2023 Calcium [Mass/Vol] 8.5 mg/dL 8.5-10.1 [facility] Serum or plasma creatinine m easurement (mass/volume)Ordered By: Sal Cassidy on 01-04-2023 Creatinine [Mass/Vol] 0.64 mg/dL 0.55-1.02 [facility] Comment on above: The validity of the calculated GFR & GFRAA in patients over 70 years has not been determined. Clinical correlation is essential. Serum or plasma urea nitroge n measurement (mass/volume)Ordered By: Sal Cassidy on 01-04-2023 Urea nitrogen [Mass/Vol] 8 mg/dL 7-18 [facility] Thin prep Papanicolaou smear with manual screeningOrdered By: Sal Cassidy on 01-04-2023 Thin prep Papanicolaou smear with manual screening 19 U/L 15-37 [facility] Thin prep Papanicolaou smear with manual screening 4 5-15 [facility] Absolute lymphocyte countOrd ered By: Cong Marquez on 01-02-2023 Lymphocytes Auto (Unsp spec) [#/Vol] 2.33 10*3/uL 0.83-4.51 [facility] Basophil percentageOrdered B y: Cong Marquez on 01-02-2023 Basophils/100 WBC (Bld) 1.7 % 0-1 [facility] Bilirubin [Mass/Vol] 0.40 mg/dL 0.20-1.00 [facility] Comment on above: For patients on eltr ombopag therapy, use of Dimension [place] TBIL is not recommended. Chloride [Moles/Vol] 101 mmol/L 98-107 [facility] Eosinophils/100 WBC (Bld) 3.6 % 0-5 [facility] Glucose [Mass/Vol] 98 mg/dL 74-106 [facility] Neutrophils (Bld) [#/Vol] 5.0 10*3/uL 2.0-7.7 [facility] Neutrophils/100 WBC (Bld) 59.8 % 47-70 [facility] Potassium [Moles/Vol] 3.5 mmol/L 3.5-5.1 [facility] Protein [Mass/Vol] 7.6 g/dL 6.4-8.2 [facility] Sodium [Moles/Vol] 135 mmol/L 136-145 [facility] WBC (Bld) [#/Vol] 8.4 10*3/uL 4.4-11.0 [facility] Blood erythrocytes count (nu mber/volume)Ordered By: Cong Marquez on 01-02-2023 RBC (Bld) [#/Vol] 4.11 10*6/uL 4.2-5.4 [facility] Blood hemoglobin measurement (mass/volume)Ordered By: Cong Marquez on 01-02-2023 Hemoglobin (Bld) [Mass/Vol] 13.4 g/dL 12.0-15.0 [facility] Blood lymphocytes/100 leukoc ytesOrdered By: Cong Marquez on 01-02-2023 Lymphocytes/100 WBC (Bld) 27.7 % 19-41 [facility] Blood monocytes/100 leukocyt esOrdered By: Cong Marquez on 01-02-2023 Monocytes/100 WBC (Bld) 7.0 % 0-10 [facility] Blood platelet mean volumeOr dered By: Cong Marquez on 01-02-2023 Platelet mean volume (Bld) [Entitic vol] 10.2 fL 6.2-12.0 [facility] Determination of erythrocyte mean corpuscular volume (MCV)Ordered By: Cong Marquez on 01-02-2023 MCV (RBC) [Entitic vol] 98.3 fL 81-99 [facility] Direct bilirubinOrdered By: Cong Marquez on 01-02-2023 Bilirubin.direct [Mass/Vol] 0.19 mg/dL 0.00-0.30 [facility] Hematocrit Auto (Bld) [Volum e fraction]Ordered By: Cong Marquez on 01-02-2023 Hematocrit (Bld) [Volume fraction] 40.4 % 37-47 [facility] Laboratory - Chemistry and C hemistry - challengeOrdered By: Cong Marquez on 01-02-2023 ALP [Catalytic activity/Vol] 227 U/L 45-117 [facility] ALT [Catalytic activity/Vol] 54 U/L 13-56 [facility] CO2 [Moles/Vol] 29.0 mmol/L 21.0-32.0 [facility] Globulin (S) [Mass/Vol] 4.0 g/dL 2.2-4.2 [facility] Lipase [Catalytic activity/Vol] 52 U/L 13-75 [facility] Comment on above: Please note:LIPASE r evised reference range effective 22. New Lipase methodology. Expected to produce lower values than the previous assay method. NEW Reference Range: 13 - 75 U/L Urea nitrogen/Creatinine [Mass ratio] 13.2 mg/mg 10-20 [facility] Laboratory - Hematology and Cell countsOrdered By: Cong Marquez on 01-02-2023 Erythrocyte distribution width (RBC) [Entitic vol] 49.7 fL 35.1-43.9 [facility] Erythrocyte distribution width (RBC) [Ratio] 13.9 % 11.6-14.6 [facility] Immature granulocytes/100 WBC (Bld) 0.200 % 0.0-0.9 [facility] Comment on above: IG% - Immature Granu locytes (promyelocytes, myelocytes and metamyelocytes) > 1% indicates that a LEFT SHIFT is Present. MCH (RBC) [Entitic mass] 32.6 pg 27.0-32.0 [facility] Nucleated RBC/100 WBC (Bld) [Ratio] 0 % 0-5 [facility] MCHC Auto (RBC) [Mass/Vol]Or dered By: Cong Marquez on 01-02-2023 MCHC (RBC) [Mass/Vol] 33.2 g/dL 32-36 [facility] No Panel InformationOrdered By: Cong Marquez on 01-02-2023 Ethyl Alcohol Level < 3.0 mg/dL [facility] Comment on above: The serum:whole bloo d ethanol ratio is approximately 1.14and varies slightly with hematocrit. Medical Alcohol reference interval and critical value innon-tolerant individuals; 50 - 100 Impairment 100 Intoxication 100 - 250 Severe Poisoning 250 - 400 Deep/possible fatal coma Estimated Creatinine Clearance Calc 75.47 ml/min [facility] Estimated GFR (MDRD) Amer 96 mL/min >60 [facility] Comment on above: GFR Calc Estimated GFR (MDRD) Non-Af Amer 79 mL/min >60 [facility] Comment on above: Non- GFR Calc Platelets bldOrdered By: Erickson Marquez on 01-02-2023 Platelets (Bld) [#/Vol] 621 10*3/uL 150-450 [facility] Serum or plasma albumin emma urement (mass/volume)Ordered By: Cong Marquez on 01-02-2023 Albumin [Mass/Vol] 3.6 g/dL 3.2-5.0 [facility] Serum or plasma calcium emma urement (mass/volume)Ordered By: Cong Marquez on 01-02-2023 Calcium [Mass/Vol] 9.3 mg/dL 8.5-10.1 [facility] Serum or plasma creatinine m easurement (mass/volume)Ordered By: Cong Marquez on 01-02-2023 Creatinine [Mass/Vol] 0.83 mg/dL 0.55-1.02 [facility] Comment on above: The validity of the calculated GFR & GFRAA in patients over 70 years has not been determined. Clinical correlation is essential. Serum or plasma urea nitroge n measurement (mass/volume)Ordered By: Cong Marquez on 01-02-2023 Urea nitrogen [Mass/Vol] 11 mg/dL 7-18 [facility] Thin prep Papanicolaou smear with manual screeningOrdered By: Cong Marquez on 01-02-2023 Thin prep Papanicolaou smear with manual screening 98 U/L 15-37 [facility] Thin prep Papanicolaou smear with manual screening 5 5-15 [facility] Absolute lymphocyte countOrd ered By: Gianni Perez on 12-29-2022 Lymphocytes Auto (Unsp spec) [#/Vol] 1.93 10*3/uL 0.83-4.51 [facility] Basophil percentageOrdered B y: Gianni Perez on 12-29-2022 Basophils/100 WBC (Bld) 1.8 % 0-1 [facility] Bilirubin [Mass/Vol] 0.20 mg/dL 0.20-1.00 [facility] Comment on above: For patients on eltr ombopag therapy, use of Dimension [place] TBIL is not recommended. Chloride [Moles/Vol] 103 mmol/L 98-107 [facility] Eosinophils/100 WBC (Bld) 4.3 % 0-5 [facility] Glucose [Mass/Vol] 118 mg/dL 74-106 [facility] Comment on above: Fasting Glucose resu lt from 100 to 125 mg/dL suggests IMPAIRED HOMEOSTASIS per A.D.A. criteria. Neutrophils (Bld) [#/Vol] 6.0 10*3/uL 2.0-7.7 [facility] Neutrophils/100 WBC (Bld) 66.3 % 47-70 [facility] Potassium [Moles/Vol] 3.9 mmol/L 3.5-5.1 [facility] Protein [Mass/Vol] 7.7 g/dL 6.4-8.2 [facility] Sodium [Moles/Vol] 139 mmol/L 136-145 [facility] WBC (Bld) [#/Vol] 9.1 10*3/uL 4.4-11.0 [facility] Blood erythrocytes count (nu mber/volume)Ordered By: Giannivic Perez on 12-29-2022 RBC (Bld) [#/Vol] 3.95 10*6/uL 4.2-5.4 [facility] Blood hemoglobin measurement (mass/volume)Ordered By: Gianni Perez on 12-29-2022 Hemoglobin (Bld) [Mass/Vol] 13.2 g/dL 12.0-15.0 [facility] Blood lymphocytes/100 leukoc ytesOrdered By: Gianni Perez on 12-29-2022 Lymphocytes/100 WBC (Bld) 21.3 % 19-41 [facility] Blood monocytes/100 leukocyt esOrdered By: Giannivic Perez on 12-29-2022 Monocytes/100 WBC (Bld) 6.0 % 0-10 [facility] Blood platelet mean volumeOr dered By: Gianni Perez on 12-29-2022 Platelet mean volume (Bld) [Entitic vol] 9.5 fL 6.2-12.0 [facility] Determination of erythrocyte mean corpuscular volume (MCV)Ordered By: Gianni Perez on 12-29-2022 MCV (RBC) [Entitic vol] 100.0 fL 81-99 [facility] Hematocrit Auto (Bld) [Volum e fraction]Ordered By: Gianni Perez on 12-29-2022 Hematocrit (Bld) [Volume fraction] 39.5 % 37-47 [facility] INR in Blood by Coagulation assayOrdered By: Lonnie Urena on 12-29-2022 INR Coag (Bld) [Relative time] 1.0 {INR} [facility] Laboratory - Chemistry and C hemistry - challengeOrdered By: Giannivic Perez on 12-29-2022 ALP [Catalytic activity/Vol] 143 U/L 45-117 [facility] ALT [Catalytic activity/Vol] 44 U/L 13-56 [facility] CO2 [Moles/Vol] 28.0 mmol/L 21.0-32.0 [facility] Globulin (S) [Mass/Vol] 4.4 g/dL 2.2-4.2 [facility] Lipase [Catalytic activity/Vol] 83 U/L 13-75 [facility] Comment on above: Please note:LIPASE r evised reference range effective 22. New Lipase methodology. Expected to produce lower values than the previous assay method. NEW Reference Range: 13 - 75 U/L Urea nitrogen/Creatinine [Mass ratio] 13.0 mg/mg 10-20 [facility] Laboratory - CoagulationOrde red By: Lonnie Urena on 12-29-2022 aPTT Coag (Bld) [Time] 29.9 s 24.1-36.2 [facility] Coag (PPP) [Time] 13.0 s 11.7-14.9 [facility] - Hematology and Cell countsOrdered By: Giannivic Perez on 12-29-2022 Erythrocyte distribution width (RBC) [Entitic vol] 52.3 fL 35.1-43.9 [facility] Erythrocyte distribution width (RBC) [Ratio] 14.0 % 11.6-14.6 [facility] Immature granulocytes/100 WBC (Bld) 0.300 % 0.0-0.9 [facility] Comment on above: IG% - Immature Granu locytes (promyelocytes, myelocytes and metamyelocytes) > 1% indicates that a LEFT SHIFT is Present. MCH (RBC) [Entitic mass] 33.4 pg 27.0-32.0 [facility] Nucleated RBC/100 WBC (Bld) [Ratio] 0 % 0-5 [facility] MCHC Auto (RBC) [Mass/Vol]Or dered By: Gianni Perez on 12-29-2022 MCHC (RBC) [Mass/Vol] 33.4 g/dL 32-36 [facility] No Panel InformationOrdered By: Gianni Perez on 12-29-2022 Estimated Creatinine Clearance Calc 62.64 ml/min [facility] Estimated GFR (MDRD) Amer 78 mL/min >60 [facility] Comment on above: GFR Calc Estimated GFR (MDRD) Non-Af Amer 64 mL/min >60 [facility] Comment on above: Non- GFR Calc No Panel InformationOrdered By: Lonnie Urena on 12-29-2022 D-Dimer Quantitative (PE/DVT) < 0.27 FEU/ug/m 0.27-0.49 [facility] Comment on above: NORMAL D-Dimer level (<0.50) indicates no DVT or PE. Platelets bldOrdered By: Gianni Perez on 12-29-2022 Platelets (Bld) [#/Vol] 668 10*3/uL 150-450 [facility] Serum or plasma albumin emma urement (mass/volume)Ordered By: Gianni Perez on 12-29-2022 Albumin [Mass/Vol] 3.3 g/dL 3.2-5.0 [facility] Serum or plasma albumin/glob ulin mass ratioOrdered By: Gianni Perez on 12-29-2022 Albumin/Globulin [Mass ratio] 0.8 {ratio} 0.9-2.4 [facility] Serum or plasma calcium emma urement (mass/volume)Ordered By: Gianni Perez on 12-29-2022 Calcium [Mass/Vol] 9.2 mg/dL 8.5-10.1 [facility] Serum or plasma creatinine m easurement (mass/volume)Ordered By: Gianni Perez on 12-29-2022 Creatinine [Mass/Vol] 1.00 mg/dL 0.55-1.02 [facility] Comment on above: The validity of the calculated GFR & GFRAA in patients over 70 years has not been determined. Clinical correlation is essential. Serum or plasma urea nitroge n measurement (mass/volume)Ordered By: Gianni Perez on 12-29-2022 Urea nitrogen [Mass/Vol] 13 mg/dL 7-18 [facility] Thin prep Papanicolaou smear with manual screeningOrdered By: Gianni Perez on 12-29-2022 Thin prep Papanicolaou smear with manual screening 41 U/L 15-37 [facility] Thin prep Papanicolaou smear with manual screening 8 5-15 [facility] Absolute lymphocyte countOrd ered By: Sal Cassidy on 12-21-2022 Lymphocytes Auto (Unsp spec) [#/Vol] 1.26 10*3/uL 0.83-4.51 [facility] Basophil percentageOrdered B y: Sal Cassidy on 12-21-2022 Basophils/100 WBC (Bld) 0.8 % 0-1 [facility] Bilirubin [Mass/Vol] 0.80 mg/dL 0.20-1.00 [facility] Comment on above: For patients on eltr ombopag therapy, use of Dimension [place] TBIL is not recommended. Chloride [Moles/Vol] 99 mmol/L 98-107 [facility] Eosinophils/100 WBC (Bld) 4.3 % 0-5 [facility] Glucose [Mass/Vol] 114 mg/dL 74-106 [facility] Comment on above: Fasting Glucose resu lt from 100 to 125 mg/dL suggests IMPAIRED HOMEOSTASIS per A.D.A. criteria. Neutrophils (Bld) [#/Vol] 3.3 10*3/uL 2.0-7.7 [facility] Neutrophils/100 WBC (Bld) 54.4 % 47-70 [facility] Potassium [Moles/Vol] 3.9 mmol/L 3.5-5.1 [facility] Protein [Mass/Vol] 7.2 g/dL 6.4-8.2 [facility] Sodium [Moles/Vol] 135 mmol/L 136-145 [facility] WBC (Bld) [#/Vol] 6.0 10*3/uL 4.4-11.0 [facility] Blood erythrocytes count (nu mber/volume)Ordered By: Sal Cassidy on 12-21-2022 RBC (Bld) [#/Vol] 3.79 10*6/uL 4.2-5.4 [facility] Blood hemoglobin measurement (mass/volume)Ordered By: Sal Cassidy on 12-21-2022 Hemoglobin (Bld) [Mass/Vol] 12.5 g/dL 12.0-15.0 [facility] Blood lymphocytes/100 leukoc ytesOrdered By: Sal Cassidy on 12-21-2022 Lymphocytes/100 WBC (Bld) 21.0 % 19-41 [facility] Blood monocytes/100 leukocyt esOrdered By: Sal Cassidy on 12-21-2022 Monocytes/100 WBC (Bld) 19.0 % 0-10 [facility] Blood platelet mean volumeOr dered By: Sal Cassidy on 12-21-2022 Platelet mean volume (Bld) [Entitic vol] 10.6 fL 6.2-12.0 [facility] Determination of erythrocyte mean corpuscular volume (MCV)Ordered By: Sal Cassidy on 12-21-2022 MCV (RBC) [Entitic vol] 100.0 fL 81-99 [facility] Hematocrit Auto (Bld) [Volum e fraction]Ordered By: Sal Cassidy on 12-21-2022 Hematocrit (Bld) [Volume fraction] 37.9 % 37-47 [facility] Laboratory - Chemistry and C hemistry - challengeOrdered By: Sal Cassidy on 12-21-2022 ALP [Catalytic activity/Vol] 208 U/L 45-117 [facility] ALT [Catalytic activity/Vol] 140 U/L 13-56 [facility] CO2 [Moles/Vol] 29.0 mmol/L 21.0-32.0 [facility] Globulin (S) [Mass/Vol] 4.4 g/dL 2.2-4.2 [facility] Urea nitrogen/Creatinine [Mass ratio] 13.1 mg/mg 10-20 [facility] - Hematology and Cell countsOrdered By: Sal Cassidy on 12-21-2022 Erythrocyte distribution width (RBC) [Entitic vol] 52.6 fL 35.1-43.9 [facility] Erythrocyte distribution width (RBC) [Ratio] 14.3 % 11.6-14.6 [facility] Immature granulocytes/100 WBC (Bld) 0.500 % 0.0-0.9 [facility] Comment on above: IG% - Immature Granu locytes (promyelocytes, myelocytes and metamyelocytes) > 1% indicates that a LEFT SHIFT is Present. MCH (RBC) [Entitic mass] 33.0 pg 27.0-32.0 [facility] Nucleated RBC/100 WBC (Bld) [Ratio] 0 % 0-5 [facility] MCHC Auto (RBC) [Mass/Vol]Or dered By: Sal Cassidy on 12-21-2022 MCHC (RBC) [Mass/Vol] 33.0 g/dL 32-36 [facility] No Panel InformationOrdered By: Sal Cassidy on 12-21-2022 Estimated Creatinine Clearance Calc 74.57 ml/min [facility] Estimated GFR (MDRD) Amer 95 mL/min >60 [facility] Comment on above: GFR Calc Estimated GFR (MDRD) Non-Af Amer 78 mL/min >60 [facility] Comment on above: Non- GFR Calc Platelets bldOrdered By: Yani Cassidy on 12-21-2022 Platelets (Bld) [#/Vol] 295 10*3/uL 150-450 [facility] Serum or plasma albumin emma urement (mass/volume)Ordered By: Sal Cassidy on 12-21-2022 Albumin [Mass/Vol] 2.8 g/dL 3.2-5.0 [facility] Serum or plasma albumin/glob ulin mass ratioOrdered By: Sal Cassidy on 12-21-2022 Albumin/Globulin [Mass ratio] 0.6 {ratio} 0.9-2.4 [facility] Serum or plasma calcium emma urement (mass/volume)Ordered By: Sal Cassidy on 12-21-2022 Calcium [Mass/Vol] 9.4 mg/dL 8.5-10.1 [facility] Serum or plasma creatinine m easurement (mass/volume)Ordered By: Sal Cassidy on 12-21-2022 Creatinine [Mass/Vol] 0.84 mg/dL 0.55-1.02 [facility] Comment on above: The validity of the calculated GFR & GFRAA in patients over 70 years has not been determined. Clinical correlation is essential. Serum or plasma urea nitroge n measurement (mass/volume)Ordered By: Sal Cassidy on 12-21-2022 Urea nitrogen [Mass/Vol] 11 mg/dL 7-18 [facility] Thin prep Papanicolaou smear with manual screeningOrdered By: Sal Cassidy on 12-21-2022 Thin prep Papanicolaou smear with manual screening 68 U/L 15 [facility] Thin prep Papanicolaou smear with manual screening 7 10-17 [facility] Laboratory - Chemistry and C hemistry - challengeOrdered By: Sal Cassidy on 12-17-2022 Magnesium [Mass/Vol] 1.8 mg/dL 1.6-2.6 [facility] No Panel InformationOrdered By: Sal Cassidy on 12-17-2022 CA 19-9 Antigen 11 U/mL 0-35 [facility] Comment on above: [employer] El ectrochemiluminescence Immunoassay(ECLIA)Values obtained with different assay methods or kits cannotbe used interchangeably. Results cannot be interpreted asabsolute evidence of the presence or absence of malignantdisease. CA 19-9 Antigen Serial Monitoring Not Reportable [facility] Serum or plasma carcinoembry onic antigen measurement (mass/volume)Ordered By: Sal Cassidy on 12-17-2022 Carcinoembryonic Ag [Mass/Vol] 4.9 ng/mL 0.0-4.7 [facility] Comment on above: Nonsmokers <3.9 Smok ers <5.6[employer] Electrochemiluminescence Immunoassay(ECLIA)Values obtained with different assay methods or kitscannot be used interchangeably. Results cannot beinterpreted as absolute evidence of the presence orabsence of malignant disease.Performed at: [employer] [id number] Director: Gal Jon PhD, Phone: [phone] Direct bilirubinOrdered By: Sal Cleary on 12-16-2022 Bilirubin.direct [Mass/Vol] 0.24 mg/dL 0.00-0.30 [facility] INR in Blood by Coagulation assayOrdered By: Sal Cleary on 12-16-2022 INR Coag (Bld) [Relative time] 1.0 {INR} [facility] Laboratory - CoagulationOrde red By: Sal Cleary on 12-16-2022 aPTT Coag (Bld) [Time] 31.9 s 24.1-36.2 [facility] Coag (PPP) [Time] 12.7 s 11.7-14.9 [facility] Absolute lymphocyte countOrd ered By: Jake Ackerman on 12-14-2022 Lymphocytes Auto (Unsp spec) [#/Vol] 0.87 10*3/uL 0.83-4.51 [facility] Basophil percentageOrdered B y: Jake Ackerman on 12-14-2022 Basophil percentage 10-25 SEEN /hpf 0-5 [facility] Basophils/100 WBC (Bld) 0.7 % 0-1 [facility] Bilirubin [Mass/Vol] 0.50 mg/dL 0.20-1.00 [facility] Comment on above: For patients on eltr ombopag therapy, use of Dimension [place] TBIL is not recommended. Chloride [Moles/Vol] 99 mmol/L 98-107 [facility] Eosinophils/100 WBC (Bld) 2.2 % 0-5 [facility] Glucose [Mass/Vol] 118 mg/dL 74-106 [facility] Comment on above: Fasting Glucose resu lt from 100 to 125 mg/dL suggests IMPAIRED HOMEOSTASIS per A.D.A. criteria. Neutrophils (Bld) [#/Vol] 4.7 10*3/uL 2.0-7.7 [facility] Neutrophils/100 WBC (Bld) 77.4 % 47-70 [facility] Potassium [Moles/Vol] 2.7 mmol/L 3.5-5.1 [facility] Protein [Mass/Vol] 7.7 g/dL 6.4-8.2 [facility] Sodium [Moles/Vol] 135 mmol/L 136-145 [facility] Comment on above: Critical Result(s) C alled at: 14:33:41 12/14/2022 by: Sonia Crocker to [employer]. Results read back by same. WBC (Bld) [#/Vol] 6.0 10*3/uL 4.4-11.0 [facility] Bilirubin Test strip Ql (U)O rdered By: Jake Ackerman on 12-14-2022 Bilirubin Ql (U) Negative Negative [facility] Blood erythrocytes count (nu mber/volume)Ordered By: Jake Ackerman on 12-14-2022 RBC (Bld) [#/Vol] 3.93 10*6/uL 4.2-5.4 [facility] Blood hemoglobin measurement (mass/volume)Ordered By: Jake Ackerman on 12-14-2022 Hemoglobin (Bld) [Mass/Vol] 13.1 g/dL 12.0-15.0 [facility] Blood lymphocytes/100 leukoc ytesOrdered By: Jake Ackerman on 12-14-2022 Lymphocytes/100 WBC (Bld) 14.5 % 19-41 [facility] Blood monocytes/100 leukocyt esOrdered By: Jake Ackerman on 12-14-2022 Monocytes/100 WBC (Bld) 5.0 % 0-10 [facility] Blood platelet mean volumeOr dered By: Jake Ackerman on 12-14-2022 Platelet mean volume (Bld) [Entitic vol] 9.4 fL 6.2-12.0 [facility] Determination of erythrocyte mean corpuscular volume (MCV)Ordered By: Jake Ackerman on 12-14-2022 MCV (RBC) [Entitic vol] 99.0 fL 81-99 [facility] Hematocrit Auto (Bld) [Volum e fraction]Ordered By: Jake Ackerman on 12-14-2022 Hematocrit (Bld) [Volume fraction] 38.9 % 37-47 [facility] Ketones Test strip Ql (U)Ord ered By: Jake Ackerman on 12-14-2022 Ketones Ql (U) 5 mg/dl Negative [facility] Laboratory - Chemistry and C hemistry - challengeOrdered By: Jake Ackerman on 12-14-2022 HCG ( test) Ql (U) Negative [facility] Comment on above: Very dilute urine sp ecimens, as indicated by a low specificgravity, may not contain compliance representative levels of hCG. If is still suspected, a first morning urinespecimen should be collected 48 hours later and tested. ALP [Catalytic activity/Vol] 134 U/L 45-117 [facility] ALT [Catalytic activity/Vol] 272 U/L 13-56 [facility] CO2 [Moles/Vol] 29.0 mmol/L 21.0-32.0 [facility] Globulin (S) [Mass/Vol] 4.2 g/dL 2.2-4.2 [facility] Lipase [Catalytic activity/Vol] 787 U/L 13-75 [facility] Comment on above: Please note:LIPASE r evised reference range effective 22. New Lipase methodology. Expected to produce lower values than the previous assay method. NEW Reference Range: 13 - 75 U/L Urea nitrogen/Creatinine [Mass ratio] 13.1 mg/mg 10-20 [facility] - Hematology and Cell countsOrdered By: Jake Ackerman on 12-14-2022 Erythrocyte distribution width (RBC) [Entitic vol] 54.9 fL 35.1-43.9 [facility] Erythrocyte distribution width (RBC) [Ratio] 15.0 % 11.6-14.6 [facility] Immature granulocytes/100 WBC (Bld) 0.200 % 0.0-0.9 [facility] Comment on above: IG% - Immature Granu locytes (promyelocytes, myelocytes and metamyelocytes) > 1% indicates that a LEFT SHIFT is Present. MCH (RBC) [Entitic mass] 33.3 pg 27.0-32.0 [facility] Nucleated RBC/100 WBC (Bld) [Ratio] 0 % 0-5 [facility] MCHC Auto (RBC) [Mass/Vol]Or dered By: Jake Ackerman on 12-14-2022 MCHC (RBC) [Mass/Vol] 33.7 g/dL 32-36 [facility] Mucus LM Ql (Urine sed)Order ed By: Jake Ackerman on 12-14-2022 Mucus Ql (Urine sed) 0 SEEN /hpf [facility] Nitrite Test strip Ql (U)Ord ered By: Jake Ackerman on 12-14-2022 Nitrite Ql (U) Positive Negative [facility] No Panel InformationOrdered By: Jake Ackerman on 12-14-2022 Estimated Creatinine Clearance Calc 102.69 ml/min [facility] Estimated GFR (MDRD) Amer 138 mL/min >60 [facility] Comment on above: GFR Calc Estimated GFR (MDRD) Non-Af Amer 114 mL/min >60 [facility] Comment on above: Non- GFR Calc Platelets bldOrdered By: Steven Ackerman on 12-14-2022 Platelets (Bld) [#/Vol] 247 10*3/uL 150-450 [facility] Protein Test strip Ql (U)Ord ered By: Jake Ackerman on 12-14-2022 Protein Ql (U) 100 mg/dl Negative [facility] Serum or plasma albumin emma urement (mass/volume)Ordered By: Jake Ackerman on 12-14-2022 Albumin [Mass/Vol] 3.5 g/dL 3.2-5.0 [facility] Serum or plasma albumin/glob ulin mass ratioOrdered By: Jake Ackerman on 12-14-2022 Albumin/Globulin [Mass ratio] 0.8 {ratio} 0.9-2.4 [facility] Serum or plasma calcium emma urement (mass/volume)Ordered By: Jake Ackerman on 12-14-2022 Calcium [Mass/Vol] 9.4 mg/dL 8.5-10.1 [facility] Serum or plasma creatinine m easurement (mass/volume)Ordered By: Jake Ackerman on 12-14-2022 Creatinine [Mass/Vol] 0.61 mg/dL 0.55-1.02 [facility] Comment on above: The validity of the calculated GFR & GFRAA in patients over 70 years has not been determined. Clinical correlation is essential. Serum or plasma urea nitroge n measurement (mass/volume)Ordered By: Jake Ackerman on 12-14-2022 Urea nitrogen [Mass/Vol] 8 mg/dL 7-18 [facility] Squamous epithelial cells de tection in urine sediment by light microscopyOrdered By: Jake Ackerman on 12-14-2022 Epithelial cells.squamous LM Ql (Urine sed) 0-5 SEEN /hpf 5-10 [facility] Thin prep Papanicolaou smear with manual screeningOrdered By: Jake Ackerman on 12-14-2022 Thin prep Papanicolaou smear with manual screening 557 U/L 15-37 [facility] Thin prep Papanicolaou smear with manual screening 7 5-15 [facility] Urine blood detectionOrdered By: Jake Ackerman on 12-14-2022 RBC Ql (U) 10 /ul Negative [facility] RBC Ql (U) 0-5 SEEN /hpf 0-5 [facility] Urine clarityOrdered By: Steven Ackerman on 12-14-2022 Clarity (U) Sl. Cloudy Clear [facility] Urine color determinationOrd ered By: Jake Ackerman on 12-14-2022 Color (U) Yellow Yellow [facility] Urine glucose detectionOrder ed By: Jake Ackerman on 12-14-2022 Glucose Ql (U) Normal mg/dl Normal [facility] Urine leukocyte esterase det ection by dipstickOrdered By: Jake Ackerman on 12-14-2022 Leukocyte esterase Test strip Ql (U) 100 /ul Negative [facility] Urine pHOrdered By: Jake Ackerman on 12-14-2022 pH (U) 6.0 [pH] 5.0 - 8.0 [facility] Urine sediment bacteria coun t by microscopy (number/high power field)Ordered By: Jake Ackerman on 12-14-2022 Bacteria LM.HPF (Urine sed) [#/Area] 3 /[HPF] None Seen [facility] Urine specific gravity measu rementOrdered By: Jake Ackerman on 12-14-2022 Specific gravity (U) [Rel density] 1.020 1.002-1.03 0 [facility] Urobilinogen Auto test strip Ql (U)Ordered By: Jake Ackerman on 12-14-2022 Urobilinogen Ql (U) Normal mg/dl Normal [facility] Basophil percentageOrdered B y: Lonnie Urena on 12-01-2022 Basophil percentage < 0.9 mg/dL 0.55-1.02 [facility] No Panel InformationOrdered By: Lonnie Urena on 12-01-2022 Bedside Estimated GFR (eGFR) > 60.0000 mL/min >60 [facility] Absolute lymphocyte countOrd ered By: ED PROVIDER on 10-19-2022 Lymphocytes Auto (Unsp spec) [#/Vol] 0.85 10*3/uL 0.83-4.51 [facility] Absolute lymphocyte countOrd ered By: Dr. Urena on 10-19-2022 Lymphocytes Auto (Unsp spec) [#/Vol] 0.77 10*3/uL 0.83-4.51 [facility] Basophil percentageOrdered B y: ED PROVIDER on 10-19-2022 Basophils/100 WBC (Bld) 0.5 % 0-1 [facility] Eosinophils/100 WBC (Bld) 0.8 % 0-5 [facility] Neutrophils (Bld) [#/Vol] 9.6 10*3/uL 2.0-7.7 [facility] Neutrophils/100 WBC (Bld) 78.9 % 47-70 [facility] WBC (Bld) [#/Vol] 12.1 10*3/uL 4.4-11.0 [facility] Basophil percentage 5-10 SEEN /hpf 0-5 [facility] Basophil percentageOrdered B y: Dr. Hastings on 10-19-2022 Bilirubin [Mass/Vol] 0.70 mg/dL 0.20-1.00 [facility] Comment on above: For patients on eltr ombopag therapy, use of Dimension [place] TBIL is not recommended. Chloride [Moles/Vol] 94 mmol/L 98-107 [facility] Glucose [Mass/Vol] 104 mg/dL 74-106 [facility] Comment on above: Fasting Glucose resu lt from 100 to 125 mg/dL suggests IMPAIRED HOMEOSTASIS per A.D.A. criteria. Potassium [Moles/Vol] 3.2 mmol/L 3.5-5.1 [facility] Protein [Mass/Vol] 6.8 g/dL 6.4-8.2 [facility] Sodium [Moles/Vol] 130 mmol/L 136-145 [facility] Basophil percentageOrdered B y: Dr. Urena on 10-19-2022 Basophils/100 WBC (Bld) 0.3 % 0-1 [facility] Bilirubin [Mass/Vol] 0.70 mg/dL 0.20-1.00 [facility] Comment on above: For patients on eltr ombopag therapy, use of Dimension [place] TBIL is not recommended. Chloride [Moles/Vol] 94 mmol/L 98-107 [facility] Eosinophils/100 WBC (Bld) 1.0 % 0-5 [facility] Glucose [Mass/Vol] 96 mg/dL 74-106 [facility] LDH [Catalytic activity/Vol] 189 U/L 84-246 [facility] Neutrophils (Bld) [#/Vol] 8.2 10*3/uL 2.0-7.7 [facility] Neutrophils/100 WBC (Bld) 78.2 % 47-70 [facility] Potassium [Moles/Vol] 3.2 mmol/L 3.5-5.1 [facility] Protein [Mass/Vol] 7.6 g/dL 6.4-8.2 [facility] Sodium [Moles/Vol] 130 mmol/L 136-145 [facility] WBC (Bld) [#/Vol] 10.5 10*3/uL 4.4-11.0 [facility] Beta hCG serum qualOrdered B y: ED PROVIDER on 10-19-2022 Beta HCG ( test) Ql Negative [facility] Bilirubin Test strip Ql (U)O rdered By: ED PROVIDER on 10-19-2022 Bilirubin Ql (U) Negative Negative [facility] Blood erythrocytes count (nu mber/volume)Ordered By: ED PROVIDER on 10-19-2022 RBC (Bld) [#/Vol] 3.89 10*6/uL 4.2-5.4 [facility] Blood erythrocytes count (nu mber/volume)Ordered By: Dr. Urena on 10-19-2022 RBC (Bld) [#/Vol] 3.93 10*6/uL 4.2-5.4 [facility] Blood hemoglobin measurement (mass/volume)Ordered By: ED PROVIDER on 10-19-2022 Hemoglobin (Bld) [Mass/Vol] 12.5 g/dL 12.0-15.0 [facility] Blood hemoglobin measurement (mass/volume)Ordered By: Dr. Urena on 10-19-2022 Hemoglobin (Bld) [Mass/Vol] 12.6 g/dL 12.0-15.0 [facility] Blood lymphocytes/100 leukoc ytesOrdered By: ED PROVIDER on 10-19-2022 Lymphocytes/100 WBC (Bld) 7.0 % 19-41 [facility] Blood lymphocytes/100 leukoc ytesOrdered By: Dr. Urena on 10-19-2022 Lymphocytes/100 WBC (Bld) 7.4 % -41 [facility] Blood monocytes/100 leukocyt esOrdered By: ED PROVIDER on 10-19-2022 Monocytes/100 WBC (Bld) 12.1 % 0-10 [facility] Blood monocytes/100 leukocyt esOrdered By: Dr. Urena on 10-19-2022 Monocytes/100 WBC (Bld) 12.1 % 0-10 [facility] Blood platelet adequacy dete ction by light microscopyOrdered By: Dr. Urena on 10-19-2022 Platelets LM Ql (Bld) ADEQUATE ADEQ [facility] Blood platelet mean volumeOr dered By: ED PROVIDER on 10-19-2022 Platelet mean volume (Bld) [Entitic vol] 10.7 fL 6.2-12.0 [facility] Blood platelet mean volumeOr dered By: Dr. Urena on 10-19-2022 Platelet mean volume (Bld) [Entitic vol] 11.0 fL 6.2-12.0 [facility] Culture, urineOrdered By: Alicia Hastings on 10-19-2022 Bacteria identified Cx Nom (U) Presumptive E. coli [facility] Determination of erythrocyte mean corpuscular volume (MCV)Ordered By: ED PROVIDER on 10-19-2022 MCV (RBC) [Entitic vol] 92.8 fL 81-99 [facility] Determination of erythrocyte mean corpuscular volume (MCV)Ordered By: Dr. Urena on 10-19-2022 MCV (RBC) [Entitic vol] 94.9 fL 81-99 [facility] Hematocrit Auto (Bld) [Volum e fraction]Ordered By: ED PROVIDER on 10-19-2022 Hematocrit (Bld) [Volume fraction] 36.1 % 37-47 [facility] Hematocrit Auto (Bld) [Volum e fraction]Ordered By: Dr. Urena on 10-19-2022 Hematocrit (Bld) [Volume fraction] 37.3 % 37-47 [facility] INR in Blood by Coagulation assayOrdered By: Dr. Urena on 10-19-2022 INR Coag (Bld) [Relative time] 1.0 {INR} [facility] Ketones Test strip Ql (U)Ord ered By: ED PROVIDER on 10-19-2022 Ketones Ql (U) Negative Negative [facility] Laboratory - Chemistry and C hemistry - challengeOrdered By: Dr. Hastings on 10-19-2022 ALP [Catalytic activity/Vol] 151 U/L -117 [facility] ALT [Catalytic activity/Vol] 72 U/L [facility] CO2 [Moles/Vol] 25.0 mmol/L 21.0-32.0 [facility] Globulin (S) [Mass/Vol] 3.9 g/dL 2.2-4.2 [facility] Lipase [Catalytic activity/Vol] 20 U/L [facility] Comment on above: Please note:LIPASE r evised reference range effective 22. New Lipase methodology. Expected to produce lower values than the previous assay method. NEW Reference Range: 13 - 75 U/L Urea nitrogen/Creatinine [Mass ratio] 21.6 mg/mg 03-24 [facility] Laboratory - Chemistry and C hemistry - challengeOrdered By: Dr. Urena on 10-19-2022 ALP [Catalytic activity/Vol] 145 U/L [facility] ALT [Catalytic activity/Vol] 69 U/L [facility] CO2 [Moles/Vol] 25.0 mmol/L 21.0-32.0 [facility] Globulin (S) [Mass/Vol] 4.8 g/dL 2.2-4.2 [facility] Urea nitrogen/Creatinine [Mass ratio] 21.2 mg/mg 03-24 [facility] Laboratory - CoagulationOrde red By: Dr. Urena on 10-19-2022 aPTT Coag (Bld) [Time] 43.1 s 24.1-36.2 [facility] Coag (PPP) [Time] 13.2 s 11.7-14.9 [facility] Laboratory - Hematology and Cell countsOrdered By: ED PROVIDER on 10-19-2022 Erythrocyte distribution width (RBC) [Entitic vol] 55.2 fL 35.1-43.9 [facility] Erythrocyte distribution width (RBC) [Ratio] 16.0 % 11.6-14.6 [facility] Immature granulocytes/100 WBC (Bld) 0.700 % 0.0-0.9 [facility] Comment on above: IG% - Immature Granu locytes (promyelocytes, myelocytes and metamyelocytes) > 1% indicates that a LEFT SHIFT is Present. MCH (RBC) [Entitic mass] 32.1 pg 27.0-32.0 [facility] Nucleated RBC/100 WBC (Bld) [Ratio] 0 % 0-5 [facility] Laboratory - Hematology and Cell countsOrdered By: Dr. Urena on 10-19-2022 Anisocytosis Ql (Bld) 1+ [facility] Erythrocyte distribution width (RBC) [Entitic vol] 55.6 fL 35.1-43.9 [facility] Erythrocyte distribution width (RBC) [Ratio] 15.8 % 11.6-14.6 [facility] Immature granulocytes/100 WBC (Bld) 1.000 % 0.0-0.9 [facility] Comment on above: IG% - Immature Granu locytes (promyelocytes, myelocytes and metamyelocytes) > 1% indicates that a LEFT SHIFT is Present. MCH (RBC) [Entitic mass] 32.1 pg 27.0-32.0 [facility] Nucleated RBC/100 WBC (Bld) [Ratio] 0 % 0- [facility] MCHC Auto (RBC) [Mass/Vol]Or dered By: ED PROVIDER on 10-19-2022 MCHC (RBC) [Mass/Vol] 34.6 g/dL 32-36 [facility] MCHC Auto (RBC) [Mass/Vol]Or dered By: Dr. Urena on 10-19-2022 MCHC (RBC) [Mass/Vol] 33.8 g/dL - [facility] Macrocytes detectionOrdered By: Dr. Urena on 10-19-2022 Mac[facility]l [facility]Bld) 1[facility] Mucus LM Ql (Urine sed)Order ed By: ED PROVIDER on 10-19-2022 Mucus Ql (Urine sed) 0 SEEN /hpf [facility] Nitrite Test strip Ql (U)Ord ered By: ED PROVIDER on 10-19-2022 Nitrite Ql (U) Positive Negative [facility] No Panel InformationOrdered By: Dr. Hastings on 10-19-2022 Estimated Creatinine Clearance Calc 54.00 ml/min [facility] Estimated GFR (MDRD) Amer 66 mL/min >60 [facility] Comment on above: GFR Calc Estimated GFR (MDRD) Non-Af Amer 54 mL/min >60 [facility] Comment on above: Non- GFR Calc No Panel InformationOrdered By: Dr. Urena on 10-19-2022 D-Dimer Quantitative (PE/DVT) 2.49 FEU/ug/m 0.27-0.49 [facility] Comment on above: CRITICAL VALUE VERIF IED. CALLED TO 10/19/22 1648 Bisi Joseph.RESULTS READ BACK BY . MADE SEVERAL ATTEMPTS TO CALL [facility] AND JUST GOT VOICE MAIL. D-Dimer ELEVATED (>0.49): Additional studies and clinicalassessments are indicated to conclude diagnosis of:Deep Vein Thrombosis (DVT) or Pulmonary Embolism (PE) Estimated GFR (MDRD) Amer 64 mL/min >60 [facility] Comment on above: GFR Calc Estimated GFR (MDRD) Non-Af Amer 53 mL/min >60 [facility] Comment on above: Non- GFR Calc Platelets bldOrdered By: ED PROVIDER on 10-19-2022 Platelets (Bld) [#/Vol] 165 10*3/uL 150-450 [facility] Platelets bldOrdered By: Dr. Urena on 10-19-2022 Platelets (Bld) [#/Vol] 157 10*3/uL 150-450 [facility] Protein Test strip Ql (U)Ord ered By: ED PROVIDER on 10-19-2022 Protein Ql (U) 30 mg/dl Negative [facility] RBC morphologyOrdered By: Dr Jorge Urena on 10-19-2022 RBC morphology finding Nom (Bld) N CHROM NORMAL NORM C&C [facility] Serum or plasma albumin emma urement (mass/volume)Ordered By: Dr. Hastings on 10-19-2022 Albumin [Mass/Vol] 2.9 g/dL 3.2-5.0 [facility] Serum or plasma albumin emma urement (mass/volume)Ordered By: Dr. Urena on 10-19-2022 Albumin [Mass/Vol] 2.8 g/dL 3.2-5.0 [facility] Serum or plasma albumin/glob ulin mass ratioOrdered By: Dr. Hastings on 10-19-2022 Albumin/Globulin [Mass ratio] 0.7 {ratio} 0.9-2.4 [facility] Serum or plasma albumin/glob ulin mass ratioOrdered By: Dr. Urena on 10-19-2022 Albumin/Globulin [Mass ratio] 0.6 {ratio} 0.9-2.4 [facility] Serum or plasma calcium emma urement (mass/volume)Ordered By: Dr. Hastings on 10-19-2022 Calcium [Mass/Vol] 8.3 mg/dL 8.5-10.1 [facility] Serum or plasma calcium emma urement (mass/volume)Ordered By: Dr. Urena on 10-19-2022 Calcium [Mass/Vol] 8.8 mg/dL 8.5-10.1 [facility] Serum or plasma creatinine m easurement (mass/volume)Ordered By: Dr. Hastings on 10-19-2022 Creatinine [Mass/Vol] 1.16 mg/dL 0.55-1.02 [facility] Comment on above: The validity of the calculated GFR & GFRAA in patients over 70 years has not been determined. Clinical correlation is essential. Serum or plasma creatinine m easurement (mass/volume)Ordered By: Dr. Urena on 10-19-2022 Creatinine [Mass/Vol] 1.18 mg/dL 0.55-1.02 [facility] Comment on above: The validity of the calculated GFR & GFRAA in patients over 70 years has not been determined. Clinical correlation is essential. Serum or plasma urea nitroge n measurement (mass/volume)Ordered By: Dr. Hastings on 10-19-2022 Urea nitrogen [Mass/Vol] 25 mg/dL 7-18 [facility] Serum or plasma urea nitroge n measurement (mass/volume)Ordered By: Dr. Urena on 10-19-2022 Urea nitrogen [Mass/Vol] 25 mg/dL 7- [facility] Squamous epithelial cells de tection in urine sediment by light microscopyOrdered By: ED PROVIDER on 10-19-2022 Epithelial cells.squamous LM Ql (Urine sed) 0 SEEN /hpf 5-10 [facility] Thin prep Papanicolaou smear with manual screeningOrdered By: Dr. Hastings on 10-19-2022 Thin prep Papanicolaou smear with manual screening 38 U/L [facility] Thin prep Papanicolaou smear with manual screening 11 10-17 [facility] Thin prep Papanicolaou smear with manual screeningOrdered By: Dr. Urena on 10-19-2022 Thin prep Papanicolaou smear with manual screening 40 U/L [facility] Thin prep Papanicolaou smear with manual screening 11 10-17 [facility] Toxic leukocyte granulation detectionOrdered By: Dr. Urena on 10-19-2022 Toxic granules LM Ql (Bld) 1+ [facility] Urine blood detectionOrdered By: ED PROVIDER on 10-19-2022 RBC Ql (U) 50 /ul Negative [facility] RBC Ql (U) 0-5 SEEN /hpf 0-5 [facility] Urine clarityOrdered By: ED PROVIDER on 10-19-2022 Clarity (U) Sl. Cloudy Clear [facility] Urine color determinationOrd ered By: ED PROVIDER on 10-19-2022 Color (U) Yellow Yellow [facility] Urine glucose detectionOrder ed By: ED PROVIDER on 10-19-2022 Glucose Ql (U) Normal mg/dl Normal [facility] Urine leukocyte esterase det ection by dipstickOrdered By: ED PROVIDER on 10-19-2022 Leukocyte esterase Test strip Ql (U) 500 /ul Negative [facility] Urine pHOrdered By: ED PROVI GILL on 10-19-2022 pH (U) 6.0 [pH] 5.0 - 8.0 [facility] Urine sediment bacteria coun t by microscopy (number/high power field)Ordered By: ED PROVIDER on 10-19-2022 Bacteria LM.HPF (Urine sed) [#/Area] RARE /hpf None Seen [facility] Urine specific gravity measu rementOrdered By: ED PROVIDER on 10-19-2022 Specific gravity (U) [Rel density] 1.010 1.002-1.03 0 [facility] Urobilinogen Auto test strip Ql (U)Ordered By: ED PROVIDER on 10-19-2022 Urobilinogen Ql (U) Normal mg/dl Normal [facility] Basophil percentageOrdered B y: Dr. Urena on 09-12-2022 Amylase [Catalytic activity/Vol] 22 U/L 25-115 [facility] Basophil percentageOrdered B y: Chandlre Salamanca on 09-12-2022 Basophil percentage 3.8 mg/dL 2.5-4.9 [facility] Erythrocyte sedimentation ra teOrdered By: Chandler Salamanca on 09-12-2022 ESR (Bld) [Velocity] 17 mm/h 0-30 [facility] Laboratory - Chemistry and C hemistry - challengeOrdered By: Chandler Salamanca on 09-12-2022 Cobalamin (Vitamin B12) [Mass/Vol] 416 pg/mL 211-911 [facility] Magnesium [Mass/Vol] 1.9 mg/dL 1.6-2.6 [facility] - Chemistry and C hemistry - challengeOrdered By: Dr. Urena on 09-12-2022 Lipase [Catalytic activity/Vol] 140 U/L 73-393 [facility] No Panel InformationOrdered By: Chandler Salamanca on 09-12-2022 Immunoglobulin G4 42 mg/dL 2-96 [facility] Thyroid Stimulating Hormone (TSH) 1.05 uIU/mL 0.358-3.74 [facility] Whole Blood Vitamin B1 Level 116.0 nmol/L 66.5-200.0 [facility] Comment on above: Performed at: [address] [id number] Director: Gal Jon PhD, Phone: [phone] at: [facility] [id number] Director: Jose Metzger MD, Phone: [phone] Serum IgG subclass 1 measure ment (mass/volume)Ordered By: Chandler Salamanca on 09-12-2022 IgG subclass 1 (S) [Mass/Vol] 438 mg/dL 248-810 [facility] Serum IgG subclass 2 measure ment (mass/volume)Ordered By: Chandler Salamanca on 09-12-2022 IgG subclass 2 (S) [Mass/Vol] 199 mg/dL 130-555 [facility] Serum IgG subclass 3 measure ment (mass/volume)Ordered By: Chandler Salamanca on 09-12-2022 IgG subclass 3 (S) [Mass/Vol] 95 mg/dL 15-102 [facility] Serum or plasma C reactive p rotein measurement (mass/volume)Ordered By: Chandlermaura Salamanca on 09-12-2022 CRP [Mass/Vol] mg/L 0.0-3.0 [facility] Comment on above: C-Reactive Protein ( CRP) provides useful information for thediagnosis, therapy and monitoring of inflammatory processesand associated diseases. For the evaluation of Relative Riskfor Cardiovascular Disease, a High Sensitivity CRP (HSCRP)should be ordered. Serum or plasma IgG measurem ent (mass/volume)Ordered By: Chandler Salamanca on 09-12-2022 IgG [Mass/Vol] 825 mg/dL [phone] [facility] Absolute lymphocyte countOrd ered By: Dr. Smith on 08-23-2022 Lymphocytes Auto (Unsp spec) [#/Vol] 2.79 10*3/uL 0.83-4.51 [facility] Basophil percentageOrdered B y: Dr. Smith on 08-23-2022 Basophil percentage 0-5 SEEN /hpf 0-5 [facility] Basophils/100 WBC (Bld) 0.8 % 0-1 [facility] Bilirubin [Mass/Vol] 0.30 mg/dL 0.20-1.00 [facility] Comment on above: For patients on eltr ombopag therapy, use of Dimension [place] TBIL is not recommended. Chloride [Moles/Vol] 106 mmol/L 98-107 [facility] Eosinophils/100 WBC (Bld) 2.0 % 0-5 [facility] Glucose [Mass/Vol] 137 mg/dL 74-106 [facility] Comment on above: Fasting Glucose resu lt greater than or equal to 126 mg/dL suggests DIABETES MELLITUS per A.D.A. criteria. Neutrophils (Bld) [#/Vol] 4.9 10*3/uL 2.0-7.7 [facility] Neutrophils/100 WBC (Bld) 58.1 % 47-70 [facility] Potassium [Moles/Vol] 3.7 mmol/L 3.5-5.1 [facility] Protein [Mass/Vol] 7.2 g/dL 6.4-8.2 [facility] Sodium [Moles/Vol] 136 mmol/L 136-145 [facility] WBC (Bld) [#/Vol] 8.5 10*3/uL 4.4-11.0 [facility] Bilirubin Test strip Ql (U)O rdered By: Dr. Smith on 08-23-2022 Bilirubin Ql (U) Negative Negative [facility] Blood erythrocytes count (nu mber/volume)Ordered By: Dr. Smith on 08-23-2022 RBC (Bld) [#/Vol] 4.33 10*6/uL 4.2-5.4 [facility] Blood hemoglobin measurement (mass/volume)Ordered By: Dr. Smith on 08-23-2022 Hemoglobin (Bld) [Mass/Vol] 13.8 g/dL 12.0-15.0 [facility] Blood lymphocytes/100 leukoc ytesOrdered By: Dr. Smith on 08-23-2022 Lymphocytes/100 WBC (Bld) 32.8 % 19-41 [facility] Blood monocytes/100 leukocyt esOrdered By: Dr. Smith on 08-23-2022 Monocytes/100 WBC (Bld) 6.1 % 0-10 [facility] Blood platelet mean volumeOr dered By: Dr. Smith on 08-23-2022 Platelet mean volume (Bld) [Entitic vol] 10.4 fL 6.2-12.0 [facility] Determination of erythrocyte mean corpuscular volume (MCV)Ordered By: Dr. Smith on 08-23-2022 MCV (RBC) [Entitic vol] 96.1 fL 81-99 [facility] Hematocrit Auto (Bld) [Volum e fraction]Ordered By: Dr. Smith on 08-23-2022 Hematocrit (Bld) [Volume fraction] 41.6 % 37-47 [facility] Ketones Test strip Ql (U)Ord ered By: Dr. Smith on 08-23-2022 Ketones Ql (U) Negative Negative [facility] Laboratory - Chemistry and C hemistry - challengeOrdered By: Dr. Smith on 08-23-2022 ALP [Catalytic activity/Vol] 88 U/L 45-117 [facility] ALT [Catalytic activity/Vol] 26 U/L 13-56 [facility] CO2 [Moles/Vol] 24.0 mmol/L 21.0-32.0 [facility] Globulin (S) [Mass/Vol] 3.7 g/dL 2.2-4.2 [facility] Lipase [Catalytic activity/Vol] 221 U/L 73-393 [facility] Urea nitrogen/Creatinine [Mass ratio] 22.1 mg/mg 10-20 [facility] Laboratory - Hematology and Cell countsOrdered By: Dr. Smith on 08-23-2022 Erythrocyte distribution width (RBC) [Entitic vol] 43.5 fL 35.1-43.9 [facility] Erythrocyte distribution width (RBC) [Ratio] 12.4 % 11.6-14.6 [facility] Immature granulocytes/100 WBC (Bld) 0.200 % 0.0-0.9 [facility] Comment on above: IG% - Immature Granu locytes (promyelocytes, myelocytes and metamyelocytes) > 1% indicates that a LEFT SHIFT is Present. MCH (RBC) [Entitic mass] 31.9 pg 27.0-32.0 [facility] Nucleated RBC/100 WBC (Bld) [Ratio] 0 % 0-5 [facility] MCHC Auto (RBC) [Mass/Vol]Or dered By: Dr. Smith on 08-23-2022 MCHC (RBC) [Mass/Vol] 33.2 g/dL 32-36 [facility] Mucus LM Ql (Urine sed)Order ed By: Dr. Smith on 08-23-2022 Mucus Ql (Urine sed) 0 SEEN /hpf [facility] Nitrite Test strip Ql (U)Ord ered By: Dr. Smith on 08-23-2022 Nitrite Ql (U) Negative Negative [facility] No Panel InformationOrdered By: Dr. Smith on 08-23-2022 Estimated Creatinine Clearance Calc 92.12 ml/min [facility] Estimated GFR (MDRD) Amer 122 mL/min >60 [facility] Comment on above: GFR Calc Estimated GFR (MDRD) Non-Af Amer 101 mL/min >60 [facility] Comment on above: Non- GFR Calc Platelets bldOrdered By: Dr. Smith on 08-23-2022 Platelets (Bld) [#/Vol] 331 10*3/uL 150-450 [facility] Protein Test strip Ql (U)Ord ered By: Dr. Smith on 08-23-2022 Protein Ql (U) 15 mg/dl Negative [facility] Serum or plasma albumin emma urement (mass/volume)Ordered By: Dr. Smith on 08-23-2022 Albumin [Mass/Vol] 3.5 g/dL 3.2-5.0 [facility] Serum or plasma albumin/glob ulin mass ratioOrdered By: Dr. Smith on 08-23-2022 Albumin/Globulin [Mass ratio] 0.9 {ratio} 0.9-2.4 [facility] Serum or plasma calcium emma urement (mass/volume)Ordered By: Dr. Smith on 08-23-2022 Calcium [Mass/Vol] 9.1 mg/dL 8.5-10.1 [facility] Serum or plasma creatinine m easurement (mass/volume)Ordered By: Dr. Smith on 08-23-2022 Creatinine [Mass/Vol] 0.68 mg/dL 0.55-1.02 [facility] Comment on above: The validity of the calculated GFR & GFRAA in patients over 70 years has not been determined. Clinical correlation is essential. Serum or plasma urea nitroge n measurement (mass/volume)Ordered By: Dr. Smith on 08-23-2022 Urea nitrogen [Mass/Vol] 15 mg/dL 7-18 [facility] Squamous epithelial cells de tection in urine sediment by light microscopyOrdered By: Dr. Smith on 08-23-2022 Epithelial cells.squamous LM Ql (Urine sed) 0-5 SEEN /hpf 5-10 [facility] Thin prep Papanicolaou smear with manual screeningOrdered By: Dr. Smith on 08-23-2022 Thin prep Papanicolaou smear with manual screening 21 U/L 15-37 [facility] Thin prep Papanicolaou smear with manual screening 6 5-15 [facility] Urine blood detectionOrdered By: Dr. Smith on 08-23-2022 RBC Ql (U) Negative Negative [facility] RBC Ql (U) 0 SEEN /hpf 0-5 [facility] Urine clarityOrdered By: Dr. Smith on 08-23-2022 Clarity (U) Sl. Cloudy Clear [facility] Urine color determinationOrd ered By: Dr. Smith on 08-23-2022 Color (U) Yellow Yellow [facility] Urine glucose detectionOrder ed By: Dr. Smith on 08-23-2022 Glucose Ql (U) Normal mg/dl Normal [facility] Urine leukocyte esterase det ection by dipstickOrdered By: Dr. Smith on 08-23-2022 Leukocyte esterase Test strip Ql (U) 25 /ul Negative [facility] Urine pHOrdered By: Dr. Ulisses morris on 08-23-2022 pH (U) 6.5 [pH] 5.0 - 8.0 [facility] Urine sediment bacteria coun t by microscopy (number/high power field)Ordered By: Dr. Smith on 08-23-2022 Bacteria LM.HPF (Urine sed) [#/Area] 1 /[HPF] None Seen [facility] Urine specific gravity measu rementOrdered By: Dr. Smith on 08-23-2022 Specific gravity (U) [Rel density] 1.015 1.002-1.03 0 [facility] Urobilinogen Auto test strip Ql (U)Ordered By: Dr. Smith on 08-23-2022 Urobilinogen Ql (U) Normal mg/dl Normal [facility] Absolute lymphocyte countOrd ered By: Dr. Crouch on 08-04-2022 Lymphocytes Auto (Unsp spec) [#/Vol] 1.41 10*3/uL 0.83-4.51 [facility] Basophil percentageOrdered B y: Dr. Crouch on 08-04-2022 Basophils/100 WBC (Bld) 0.9 % 0-1 [facility] Bilirubin [Mass/Vol] 0.30 mg/dL 0.20-1.00 [facility] Comment on above: For patients on eltr ombopag therapy, use of Dimension [place] TBIL is not recommended. Chloride [Moles/Vol] 103 mmol/L 98-107 [facility] Eosinophils/100 WBC (Bld) 4.5 % 0-5 [facility] Glucose [Mass/Vol] 125 mg/dL 74-106 [facility] Comment on above: Fasting Glucose resu lt from 100 to 125 mg/dL suggests IMPAIRED HOMEOSTASIS per A.D.A. criteria. Lactate [Moles/Vol] 0.8 mmol/L 0.4-2.0 [facility] Neutrophils (Bld) [#/Vol] 3.0 10*3/uL 2.0-7.7 [facility] Neutrophils/100 WBC (Bld) 54.4 % 47-70 [facility] Potassium [Moles/Vol] 3.7 mmol/L 3.5-5.1 [facility] Protein [Mass/Vol] 6.1 g/dL 6.4-8.2 [facility] Sodium [Moles/Vol] 138 mmol/L 136-145 [facility] WBC (Bld) [#/Vol] 5.6 10*3/uL 4.4-11.0 [facility] Blood erythrocytes count (nu mber/volume)Ordered By: Dr. Crouch on 08-04-2022 RBC (Bld) [#/Vol] 3.33 10*6/uL 4.2-5.4 [facility] Blood hemoglobin measurement (mass/volume)Ordered By: Dr. Crouch on 08-04-2022 Hemoglobin (Bld) [Mass/Vol] 11.1 g/dL 12.0-15.0 [facility] Blood lymphocytes/100 leukoc ytesOrdered By: Dr. Crouch on 08-04-2022 Lymphocytes/100 WBC (Bld) 25.3 % 19-41 [facility] Blood monocytes/100 leukocyt esOrdered By: Dr. Crouch on 08-04-2022 Monocytes/100 WBC (Bld) 14.5 % 0-10 [facility] Blood platelet mean volumeOr dered By: Dr. Crouch on 08-04-2022 Platelet mean volume (Bld) [Entitic vol] 10.4 fL 6.2-12.0 [facility] Determination of erythrocyte mean corpuscular volume (MCV)Ordered By: Dr. Crouch on 08-04-2022 MCV (RBC) [Entitic vol] 97.6 fL 81-99 [facility] Erythrocyte sedimentation ra teOrdered By: Dr. Crouch on 08-04-2022 ESR (Bld) [Velocity] 28 mm/h 0-30 [facility] Hematocrit Auto (Bld) [Volum e fraction]Ordered By: Dr. Crouch on 08-04-2022 Hematocrit (Bld) [Volume fraction] 32.5 % 37-47 [facility] Laboratory - Chemistry and C hemistry - challengeOrdered By: Dr. Crouch on 08-04-2022 HCG ( test) Ql (U) Negative [facility] Comment on above: Very dilute urine sp ecimens, as indicated by a low specificgravity, may not contain compliance representative levels of hCG. If is still suspected, a first morning urinespecimen should be collected 48 hours later and tested. ALP [Catalytic activity/Vol] 94 U/L 45-117 [facility] ALT [Catalytic activity/Vol] 46 U/L 13-56 [facility] CO2 [Moles/Vol] 27.0 mmol/L 21.0-32.0 [facility] Globulin (S) [Mass/Vol] 3.4 g/dL 2.2-4.2 [facility] Urea nitrogen/Creatinine [Mass ratio] 9.2 mg/mg 10-20 [facility] Laboratory - CoagulationOrde red By: Dr. Crouch on 08-04-2022 aPTT Coag (Bld) [Time] 73.9 s 24.1-36.2 [facility] - Hematology and Cell countsOrdered By: Dr. Crouch on 08-04-2022 Erythrocyte distribution width (RBC) [Entitic vol] 48.0 fL 35.1-43.9 [facility] Erythrocyte distribution width (RBC) [Ratio] 13.4 % 11.6-14.6 [facility] Immature granulocytes/100 WBC (Bld) 0.400 % 0.0-0.9 [facility] Comment on above: IG% - Immature Granu locytes (promyelocytes, myelocytes and metamyelocytes) > 1% indicates that a LEFT SHIFT is Present. MCH (RBC) [Entitic mass] 33.3 pg 27.0-32.0 [facility] Nucleated RBC/100 WBC (Bld) [Ratio] 0 % 0-5 [facility] MCHC Auto (RBC) [Mass/Vol]Or dered By: Dr. Crouch on 08-04-2022 MCHC (RBC) [Mass/Vol] 34.2 g/dL 32-36 [facility] No Panel InformationOrdered By: Dr. Crouch on 08-04-2022 Estimated Creatinine Clearance Calc 94.91 ml/min [facility] Estimated GFR (MDRD) Amer 127 mL/min >60 [facility] Comment on above: GFR Calc Estimated GFR (MDRD) Non-Af Amer 105 mL/min >60 [facility] Comment on above: Non- GFR Calc Platelets bldOrdered By: Dr. Crouch on 08-04-2022 Platelets (Bld) [#/Vol] 214 10*3/uL 150-450 [facility] Serum or plasma C reactive p rotein measurement (mass/volume)Ordered By: Dr. Crouch on 08-04-2022 CRP [Mass/Vol] 15.50 mg/L 0.0-3.0 [facility] Comment on above: C-Reactive Protein ( CRP) provides useful information for thediagnosis, therapy and monitoring of inflammatory processesand associated diseases. For the evaluation of Relative Riskfor Cardiovascular Disease, a High Sensitivity CRP (HSCRP)should be ordered. Serum or plasma albumin emma urement (mass/volume)Ordered By: Dr. Crouch on 08-04-2022 Albumin [Mass/Vol] 2.7 g/dL 3.2-5.0 [facility] Serum or plasma albumin/glob ulin mass ratioOrdered By: Dr. Crouch on 08-04-2022 Albumin/Globulin [Mass ratio] 0.8 {ratio} 0.9-2.4 [facility] Serum or plasma calcium emma urement (mass/volume)Ordered By: Dr. Crouch on 08-04-2022 Calcium [Mass/Vol] 9.2 mg/dL 8.5-10.1 [facility] Serum or plasma creatinine m easurement (mass/volume)Ordered By: Dr. Crouch on 08-04-2022 Creatinine [Mass/Vol] 0.66 mg/dL 0.55-1.02 [facility] Comment on above: The validity of the calculated GFR & GFRAA in patients over 70 years has not been determined. Clinical correlation is essential. Serum or plasma prolactin me asurement (mass/volume)Ordered By: Dr. Crouch on 08-04-2022 Prolactin [Mass/Vol] 84.7 ng/mL [facility] Comment on above: NORMAL REFERENCE RAN GES FEMALE NON- 2.2 - 30.3 ng/mL 8.1 - 347.6 ng/mL POST-MENOPAUSAL 0.7 - 31.5 ng/mL MALE 2.5 - 17.4 ng/mL Serum or plasma urea nitroge n measurement (mass/volume)Ordered By: Dr. Crouch on 08-04-2022 Urea nitrogen [Mass/Vol] 6 mg/dL 7-18 [facility] Thin prep Papanicolaou smear with manual screeningOrdered By: Dr. Crouch on 08-04-2022 Thin prep Papanicolaou smear with manual screening 49 U/L 15-37 [facility] Thin prep Papanicolaou smear with manual screening 8 5-15 [facility] Basophil percentageOrdered B y: Dr. Crouch on 08-03-2022 Basophil percentage < 10.0 umol/L 11-32 [facility] INR in Blood by Coagulation assayOrdered By: Dr. Crouch on 08-03-2022 INR Coag (Bld) [Relative time] 1.1 {INR} [facility] Laboratory - Chemistry and C hemistry - challengeOrdered By: Dr. Crouch on 08-03-2022 Magnesium [Mass/Vol] 1.6 mg/dL 1.6-2.6 [facility] Laboratory - CoagulationOrde red By: Dr. Crouch on 08-03-2022 PT Coag (PPP) [Time] 13.9 s 11.7-14.9 [facility] - Microbiology an d Antimicrobial susceptibilityOrdered By: Dr. Crouch on 08-03-2022 Respiratory pathogens DNA and RNA 12b panel SRAVANTHI+probe (Unsp spec) [facility] No Panel InformationOrdered By: Dr. Crouch on 08-03-2022 D-Dimer Quantitative (PE/DVT) 1.51 FEU/ug/m 0.27-0.49 [facility] Comment on above: D-Dimer ELEVATED (>0 .49): Additional studies and clinicalassessments are indicated to conclude diagnosis of:Deep Vein Thrombosis (DVT) or Pulmonary Embolism (PE)CRITICAL VALUE VERIFIED. CALLED TO [id number] Nereida Porter.RESULTS READ BACK BY SAME . Methicillin-Resist S.aureus DNA PCR Negative Negative [facility] Urine Legionella pneumophila antigen detectionOrdered By: Dr. Crouch on 08-03-2022 L. pneumophila Ag Ql (U) [facility] Basophil percentageOrdered B y: Dr. Leonard on 08-01-2022 Basophil percentage 3.3 mg/dL 2.5-4.9 [facility] Albumin Elph [Mass/Vol]Order ed By: Chandler Salamanca on 07-30-2022 Albumin [Mass/Vol] 2.8 g/dL 2.9-4.4 [facility] Atypical perinuclear antineu trophil cytoplasmic antibodies measurementOrdered By: Chandler Salamanca on 07-30-2022 Neutrophil cytoplasmic Ab.perinuclear.atypical IF (S) [Titer] <1:20 titer Neg:<1:20 [facility] Comment on above: The atypical pANCA p attern has been observed in asignificant percentage of patients with ulcerative colitis,primary sclerosing cholangitis and autoimmune hepatitis.Performed at: - [facility] [id number] Director: Gal Jon PhD, Phone: [phone] Basophil percentageOrdered B y: Chandler Salamanca on 07-30-2022 Basophil percentage < 0.2 AI 0.0-0.9 [facility] Interpretation of serum or p lasma protein pattern by immunofixation (narrative resultOrdered By: Chandler Salamanca on 07-30-2022 Protein Fractions Immunofixation Dane [Interp] See comment [facility] Comment on above: NOT OBSERVED No Panel InformationOrdered By: Chandler Salamanca on 07-30-2022 Addendum Document Comment . [facility] Comment on above: Protein electrophore sis scan will follow via computer,mail, or marine engineer cpvec delivery. Centromere B Antibody <0.2 AI 0.0-0.9 [facility] Immunoglobulin G4 34 mg/dL 2-96 [facility] DIRECTOR OF LABOR RELATIONS Antibody 0.3 AI 0.0-0.9 [facility] Serum DNA double strand anti body assay (units/volume)Ordered By: Chandler Salamanca on 07-30-2022 DNA double strand Ab Qn (S) 1 [IU]/mL 0-9 [facility] Comment on above: Negative <5 Equivoca l 5 - 9 Positive >9 Serum IgG subclass 1 measure ment (mass/volume)Ordered By: Chandler Salamanca on 07-30-2022 IgG subclass 1 (S) [Mass/Vol] 311 mg/dL 248-810 [facility] Serum IgG subclass 2 measure ment (mass/volume)Ordered By: Chandler Salamanca on 07-30-2022 IgG subclass 2 (S) [Mass/Vol] 143 mg/dL 130-555 [facility] Serum IgG subclass 3 measure ment (mass/volume)Ordered By: Chandler Salamanca on 07-30-2022 IgG subclass 3 (S) [Mass/Vol] 82 mg/dL 15-102 [facility] Serum Lizette-1 antibody assay (u nits/volume)Ordered By: Chandler Salamanca on 07-30-2022 Lizette-1 extractable nuclear Ab Qn (S) <0.2 AI 0.0-0.9 [facility] Serum Scl-70 extractable nuc lear antibody assay (units/volume)Ordered By: Chandler Salamanca on 07-30-2022 SCL-70 extractable nuclear Ab Qn (S) <0.2 AI 0.0-0.9 [facility] Serum Lee extractable nucl ear antibody detectionOrdered By: Chandler Salamanca on 07-30-2022 Lee extractable nuclear Ab Ql (S) <0.2 AI 0.0-0.9 [facility] Serum [id number]-[id number] measu rement by electrophoresisOrdered By: Chandler Salamanca on 07-30-2022 Alpha 1 globulin Elph [Mass/Vol] 0.4 g/dL 0.0-0.4 [facility] Alpha 1 globulin Elph [Mass/Vol] 0.6 g/dL 0.4-1.0 [facility] Serum classic neutrophil cyt oplasmic antibody assay (units/volume)Ordered By: Chandler Salamanca on 07-30-2022 Neutrophil cytoplasmic Ab.classic Qn (S) <1:20 titer Neg:<1:20 [facility] Serum or plasma IgA measurem ent (mass/volume)Ordered By: Chandler Salamanca on 07-30-2022 IgA [Mass/Vol] 318 mg/dL 87-352 [facility] Serum or plasma IgG measurem ent (mass/volume)Ordered By: Chandler Salamanca on 07-30-2022 IgG [Mass/Vol] 608 mg/dL 586-1602 [facility] IgG [Mass/Vol] Not Reportable [facility] Serum or plasma IgM measurem ent (mass/volume)Ordered By: Chandler Salamanca on 07-30-2022 IgM [Mass/Vol] 113 mg/dL 26-217 [facility] Serum or plasma beta globuli n measurement by electrophoresis (mass/volume)Ordered By: Chandler Salamanca on 07-30-2022 Beta globulin Elph [Mass/Vol] 1.1 g/dL 0.7-1.3 [facility] Serum or plasma gamma globul in measurement by electrophoresis (mass/volume)Ordered By: Chandler Salamanca on 07-30-2022 Gamma globulin Elph [Mass/Vol] 0.5 g/dL 0.4-1.8 [facility] Serum or plasma immunoelectr ophoresis interpretation (nominal result)Ordered By: Chandler Salamanca on 07-30-2022 Interpretation IEP [Interp] Comment . [facility] Comment on above: No monoclonality det ected. Serum perinuclear neutrophil cytoplasmic antibody titer by immunofluorescenceOrdered By: Chandler Salamanca on 07-30-2022 Neutrophil cytoplasmic Ab.perinuclear IF (S) [Titer] <1:20 titer Neg:<1:20 [facility] Comment on above: The presence of posi tive fluorescence exhibiting P-ANCA orC-ANCA patterns alone is not specific for the diagnosis ofWegener's Granulomatosis (WG) or microscopic polyangiitis.Decisions about treatment should not be based solely onANCA IFA results. The International ANCA Group Consensusrecommends follow up testing of positive sera with both AR-3 and MPO-ANCA enzyme immunoassays. As many as 5% serumsamples are positive only by EIA. Ref. AM J Clin Eflrbq3334;111:507-513. Thin prep Papanicolaou smear with manual screeningOrdered By: Chandler Salamanca on 07-30-2022 Thin prep Papanicolaou smear with manual screening 1.1 0.7-1.7 [facility] Total protein bloodOrdered B y: Chandler Salamanca on 07-30-2022 Protein [Mass/Vol] 5.5 g/dL 6.0-8.5 [facility] Basophil percentageOrdered B y: Chandler Salamanca on 07-29-2022 Amylase [Catalytic activity/Vol] 520 U/L 25-115 [facility] Laboratory - Chemistry and C hemistry - challengeOrdered By: Chandler Salamanca on 07-29-2022 Lipase [Catalytic activity/Vol] 4586 U/L 73-393 [facility] No Panel InformationOrdered By: Dr. Leonard on 07-29-2022 Thyroid Stimulating Hormone (TSH) 2.20 uIU/mL 0.358-3.74 [facility] Miscellaneous Test See comment [facility] Comment on above: TEST RESULT LIMITSDi lute Josias's Viper Venom DRVVT Screen Seconds 34.1 sec Reference Range: <= 47.0 DRVVT Confirm Seconds Testing Not Indicated DRVVT Ratio Testing Not Indicated TESTING PERFORMED AT [facility]. ORIGINAL REPORT ON FILE IN LAB CONTAINS ADDITIONAL TEST SITE INFORMATION. Absolute lymphocyte countOrd ered By: Cong Amberdat on 07-28-2022 Lymphocytes Auto (Unsp spec) [#/Vol] 1.18 10*3/uL 0.83-4.51 [facility] Basophil percentageOrdered B y: Cong Marquez on 07-28-2022 Basophil percentage 0-5 SEEN /hpf 0-5 [facility] Basophils/100 WBC (Bld) 0.6 % 0-1 [facility] Chloride [Moles/Vol] 99 mmol/L 98-107 [facility] Eosinophils/100 WBC (Bld) 1.1 % 0-5 [facility] Glucose [Mass/Vol] 138 mg/dL 74-106 [facility] Comment on above: Fasting Glucose resu lt greater than or equal to 126 mg/dL suggests DIABETES MELLITUS per A.D.A. criteria. Neutrophils (Bld) [#/Vol] 9.8 10*3/uL 2.0-7.7 [facility] Neutrophils/100 WBC (Bld) 82.5 % 47-70 [facility] Potassium [Moles/Vol] 2.8 mmol/L 3.5-5.1 [facility] Sodium [Moles/Vol] 137 mmol/L 136-145 [facility] WBC (Bld) [#/Vol] 11.9 10*3/uL 4.4-11.0 [facility] Basophil percentageOrdered B y: Dr. Cottrell on 07-28-2022 Bilirubin [Mass/Vol] 0.90 mg/dL 0.20-1.00 [facility] Comment on above: For patients on eltr ombopag therapy, use of Dimension [place] TBIL is not recommended. Protein [Mass/Vol] 7.7 g/dL 6.4-8.2 [facility] Beta hCG serum qualOrdered B y: Cong Marquez on 07-28-2022 Beta HCG ( test) Ql Negative [facility] Bilirubin Test strip Ql (U)O rdered By: Cong Marquez on 07-28-2022 Bilirubin Ql (U) 1 mg/dL Negative [facility] Comment on above: COLOR OF URINE MAY A FFECT DIPSTICK RESULTS. Blood erythrocytes count (nu mber/volume)Ordered By: Cong Marquez on 07-28-2022 RBC (Bld) [#/Vol] 4.55 10*6/uL 4.2-5.4 [facility] Blood hemoglobin measurement (mass/volume)Ordered By: Cong Marquez on 07-28-2022 Hemoglobin (Bld) [Mass/Vol] 14.9 g/dL 12.0-15.0 [facility] Blood lymphocytes/100 leukoc ytesOrdered By: Cong Marquez on 07-28-2022 Lymphocytes/100 WBC (Bld) 9.9 % 19-41 [facility] Blood monocytes/100 leukocyt esOrdered By: Cong Marquez on 07-28-2022 Monocytes/100 WBC (Bld) 5.6 % 0-10 [facility] Blood or tissue coagulation factor II targeted mutation analysis by molecular geneticOrdered By: Dr. Leonard on 07-28-2022 F2 gene targeted mutation analysis [employer] Nom (Bld/Tiss) Comment . [facility] Comment on above: Result: c.*97G>A - N ot DetectedThis result is not associated with an increased risk for venousthromboembolism. See Additional Clinical Information andComments.Additional Clinical Information:Venous thromboembolism is a multifactorial disease influenced bygenetic, environmental, and circumstantial risk factors. The c.*97G>Avariant in the F2 gene is a genetic risk factor for venousthromboembolism. Heterozygous carriers have a 2- to 4-fold increasedrisk for venous thromboembolism. Homozygotes for the c.*97G>A variantare rare. The annual risk of VTE in homozygotes has been reported bran 1.1%/year. Individuals who carry both a c.*97G>A variant in theF2 gene and a c.1601G>A (p. Cbb041Own) variant in the F5 gene(commonly referred to as Factor V Leiden) have an approximately 20-fold increased risk for venous thromboembolism. Risks are likely bran even higher in more complex genotype combinations involving theF2 c.*97G>A variant and Factor V Leiden (PMID: 76765935). Additionalrisk factors include but are not limited to: deficiency of protein C,protein S, or antithrombin III, age, male sex, personal or familyhistory of deep vein thromboembolism, smoking, surgery, prolongedimmobilization, malignant neoplasm, tamoxifen treatment, raloxifenetreatment, oral contraceptive use, hormone replacement therapy, andpregnancy. Management of thrombotic risk and thrombotic events shouldfollow established guidelines and fit the clinical circumstance. Thisresult cannot predict the occurrence or recurrence of a thromboticevent.Comments:Genetic counseling is recommended to discuss the potential clinicalimplications of positive results, as well as recommendations fortesting family members.Genetic Coordinators are available for health care providers to discussresults at [phone] Details:Variant analyzed: c.*97G>A, previously referred to as [id number]/Limitations:DNA analysis of the F2 gene (NM_000506.5) was performed by PCRamplification followed by restriction enzyme analysis. The diagnosticsensitivity is >99%. Results must be combined with clinicalinformation for the most accurate interpretation. Molecular-basedtesting is highly accurate, but as in any laboratory test, diagnosticerrors may occur. False positive or false negative results may occurfor reasons that include genetic variants, blood transfusions, bonemarrow transplantation, somatic or tissue-specific mosaicism,mislabeled samples, or erroneous representation of familyrelationships.This test was developed and its performance characteristics determinedby [employer] It has not been cleared or approved by the Food and DrugAdministration.References:Danilo Siddiqi, Mary SAINI, Obi R, Koko WW, Hiram JH; ACMG ProfessionalPractice and Guidelines Committee. Addendum: [place] [employer] consensus statement on factor V Leiden mutationtesting. [employer]. 2020Aug 07. doi: 10.1038/b16956-624-29475-e.PMID: 69563654.Lidia BROWN. Prothrombin Thrombophilia. 2005Dec 27[Updated 2020Jul 09]. In: Efren MP, Fabi HH, Uziel RA, et al.,editors. Crista(R) [Internet]. [place] ([place]): [facility]; 7914-7553. Available from:https://www.ncbi.nlm.nih.gov/books/FHD3285/Richard Siddiqi, Mary SAINI, Ramesh X, Pato B, Marv EB, Rossi P, Karly CS;[facility] Laboratory Order Entry Administrator Committee. Venous thromboembolismlaboratory testing (factor V Leiden and factor II c.*97G>A),2018 update: a technical standard of the [place] [employer]Gen[employer] and Gen[employer] (ACMG). [employer]. 2018 May;20(12):3627-9508.doi: 10.1038/[id number]-n. Epub 2017Mar 09. PMID: 38592980.Kim Colunga, PhD, Alma Ram, PhDLonnie Wiggins, PhD, Judith Vicente, PhD, Romy Locke, PhD, FACESAU Breen, PhD, Yuri Vee, PhD, Mario Child, PhD, FACMGPerformed at: [facility] [employer] [id number] Director: Jose Metzger MD, Phone: [phone] at: [facility] [employer] [id number] Director: Gal Jon PhD, Phone: [phone] at: [facility] [employer] [id number] [place], [place] [id number] Director: Minda Mo [facility], Phone: [phone] Blood platelet mean volumeOr dered By: Cong Marquez on 07-28-2022 Platelet mean volume (Bld) [Entitic vol] 10.1 fL 6.2-12.0 [facility] Determination of erythrocyte mean corpuscular volume (MCV)Ordered By: Cong Marquez on 07-28-2022 MCV (RBC) [Entitic vol] 97.4 fL 81-99 [facility] Direct bilirubinOrdered By: Dr. Cottrell on 07-28-2022 Bilirubin.direct [Mass/Vol] 0.29 mg/dL 0.00-0.30 [facility] Functional protein C measure mentOrdered By: Dr. Leonard on 07-28-2022 Protein C actual/normal Chromogenic method (PPP) [Rel catalytic activity/Vol] 135 % 73-180 [facility] Protein C actual/normal Chromogenic method (PPP) [Rel catalytic activity/Vol] Not Reportable [facility] Hematocrit Auto (Bld) [Volum e fraction]Ordered By: Cong Marquez on 07-28-2022 Hematocrit (Bld) [Volume fraction] 44.3 % 37-47 [facility] INR in Blood by Coagulation assayOrdered By: Dr. Leonard on 07-28-2022 INR Coag (Bld) [Relative time] 1.0 {INR} [facility] Ketones Test strip Ql (U)Ord ered By: Cong Marquez on 07-28-2022 Ketones Ql (U) 150 mg/dl Negative [facility] Comment on above: CRITICAL VALUE VERIF IED. CALLED TO [facility]07/28/22 0736 Jess Pace.RESULTS READ BACK BY SAME . CRITICAL VALUE *H Laboratory - Chemistry and C hemistry - challengeOrdered By: Dr. Cottrell on 07-28-2022 ALP [Catalytic activity/Vol] 131 U/L 45-117 [facility] ALT [Catalytic activity/Vol] 67 U/L 13-56 [facility] Globulin (S) [Mass/Vol] 3.9 g/dL 2.2-4.2 [facility] Lipase [Catalytic activity/Vol] 9420 U/L 73-393 [facility] Laboratory - Chemistry and C hemistry - challengeOrdered By: Cong Marquez on 07-28-2022 CO2 [Moles/Vol] 28.0 mmol/L 21.0-32.0 [facility] Urea nitrogen/Creatinine [Mass ratio] 18.7 mg/mg 10-20 [facility] Laboratory - CoagulationOrde red By: Dr. Leonard on 07-28-2022 aPTT Coag (Bld) [Time] 27.0 s 24.1-36.2 [facility] Coag (PPP) [Time] 13.0 s 11.7-14.9 [facility] Laboratory - Hematology and Cell countsOrdered By: Cong Marquez on 07-28-2022 Erythrocyte distribution width (RBC) [Entitic vol] 49.1 fL 35.1-43.9 [facility] Erythrocyte distribution width (RBC) [Ratio] 13.5 % 11.6-14.6 [facility] Immature granulocytes/100 WBC (Bld) 0.300 % 0.0-0.9 [facility] Comment on above: IG% - Immature Granu locytes (promyelocytes, myelocytes and metamyelocytes) > 1% indicates that a LEFT SHIFT is Present. MCH (RBC) [Entitic mass] 32.7 pg 27.0-32.0 [facility] Nucleated RBC/100 WBC (Bld) [Ratio] 0 % 0-5 [facility] MCHC Auto (RBC) [Mass/Vol]Or dered By: Cong Marquez on 07-28-2022 MCHC (RBC) [Mass/Vol] 33.6 g/dL 32-36 [facility] Mucus LM Ql (Urine sed)Order ed By: Cong Marquez on 07-28-2022 Mucus Ql (Urine sed) 0 SEEN /hpf [facility] Nitrite Test strip Ql (U)Ord ered By: Cong Marquez on 07-28-2022 Nitrite Ql (U) Positive Negative [facility] No Panel InformationOrdered By: Chandler Salamanca on 07-28-2022 Troponin I High Sensitivity 7 pg/mL 3.0-54.0 [facility] Comment on above: Please Note: New Lydia t Units and Gender Specific Reference Ranges. For more information see Policy Stat Procedure [place] High Sensitivity Troponin (TNIH) and attachments. No Panel InformationOrdered By: Dr. Leonard on 07-28-2022 Anti-Cardiolipin IgM Antibody 15 MPL U/mL 0-12 [facility] Comment on above: Negative: <13 Indete rminate: 13 - 20 Low-Med Positive: >20 - 80 High Positive: >80 Factor V Leiden Mutation Comment . [facility] Comment on above: Result: c.1601G>A (p .[id number]) - Not DetectedThis result is not associated with an increased risk for venousthromboembolism. See Additional Clinical Information andComments.Additional Clinical Information:Venous thromboembolism is a multifactorial diseaseinfluenced by genetic, environmental, and circumstantialrisk factors. The c.1601G>A (p. [id number]) variant in theF5 gene, commonly referred to as Factor V Leiden, is agenetic risk factor for venous thromboembolism.Heterozygous carriers of this variant have a 6- to 8-foldincreased risk for venous thromboembolism. Individualshomozygous for this variant (ie, with a copy of the varianton each chromosome) have an approximately 80-fold increasedrisk for venous thromboembolism. Individuals who carry soo c.*97G>A variant in the F2 gene and Factor V Leiden havean approximately 20-fold increased risk for venousthromboembolism. Risks are likely to be even higher in morecomplex genotype combinations involving the F2 c.*97G>Avariant and Factor V Leiden (PMID: 47494059). Additionalrisk factors include but are not limited to: deficiency ofprotein C, protein S, or antithrombin III, age, male sex,personal or family history of deep vein thromboembolism,smoking, surgery, prolonged immobilization, malignantneoplasm, tamoxifen treatment, raloxifene treatment, oralcontraceptive use, hormone replacement therapy, andpregnancy. Management of thrombotic risk and thromboticevents should follow established guidelines and fit theclinical circumstance. This result cannot predict theoccurrence or recurrence of a thrombotic event.Comment:Genetic counseling is recommended to discuss thepotential clinical implications of positive results, aswell as recommendations for testing family members.Genetic Coordinators are available for health careproviders to discuss results at [phone] Details:Variant Analyzed: c.1601G>A (p. [id number]), referred toas Factor V LeidenMethods/Limitations:DNA analysis of the F5 gene (NM_000130.5) was performedby PCR amplification followed by restriction enzymeanalysis. The diagnostic sensitivity is >99%. Results mustbe combined with clinical information for the most accurateinterpretation. Molecular-based testing is highly accurate,but as in any laboratory test, diagnostic errors may occur.False positive or false negative results may occur forreasons that include genetic variants, blood transfusions,bone marrow transplantation, somatic or tissue-specificmosaicism, mislabeled samples, or erroneous representationof family relationships.This test was developed and its performance characteristicsdetermined by [employer] It has not been cleared orapproved by the Food and Drug Administration.References:Danilo S, Mary AK, Obi R, Koko WW, Hiram HOLDEN; ACMGProfessional Practice and Guidelines Committee. Addendum:[employer] consensus statement onfactor V Leiden mutation testing. [employer]. 2020Aug 07.doi: 10.1038/u67623-937-77456-q. PMID: 82403324.Lidia BROWN. Factor V Leiden Thrombophilia. 1998October 16(Updated 2017Jun 08). In: Efren MP, Fabi HH, Uziel RA,et al., editors. Crista(R) (Internet). [place] ([place]):[facility]; 1128-8773. Availablefrom: https://www.ncbi.nlm.nih.gov/books/EJL9717/Richard S, Mary AK, Ramesh X, Pato B, Marv EB, Rossi P,Karly CS; MG Laboratory Order Entry Administrator Committee.Venous thromboembolism laboratory testing (factor V Leidenand factor II c.*97G>A), 2018 update: a technical standardof the [employer] and [employer]). [employer]. 2018 May;20(12):8582-3046. doi:10.1038/[id number]-t. Epub 2017Mar 09. PMID: 32093835.Kim Colunga, PhD, Alma Ram PhDLonnie Wiggins, PhD, Judith Vicente, PhD, Romy Locke, PhD, [facility] Kalli Breen, PhD, Yuri Vee, PhD, Mario Child, PhD, [facility] No Panel InformationOrdered By: Cong Marquez on 07-28-2022 Estimated Creatinine Clearance Calc 106.17 ml/min [facility] Estimated GFR (MDRD) Amer 144 mL/min >60 [facility] Comment on above: GFR Calc Estimated GFR (MDRD) Non-Af Amer 119 mL/min >60 [facility] Comment on above: Non- GFR Calc Platelet poor plasma antithr ombin actual/normal ratio by chromogenic method (relativeOrdered By: Dr. Leonard on 07-28-2022 Antithrombin actual/normal Chromogenic method (PPP) [Rel catalytic activity/Vol] 116 % 75-135 [facility] Comment on above: Direct Xa inhibitor anticoagulants such as rivaroxaban,apixaban and edoxaban will lead to spuriously elevatedantithrombin activity levels possibly masking a deficiency. Platelet poor plasma antithr ombin antigen detection by immunoassayOrdered By: Dr. Leonard on 07-28-2022 Antithrombin Ag IA Ql (PPP) 96 % 72-124 [facility] Comment on above: This test was develo ped and its performance characteristicsdetermined by [employer] It has not been cleared orapproved by the Food and Drug Administration. Platelets bldOrdered By: Erickson Marquez on 07-28-2022 Platelets (Bld) [#/Vol] 267 10*3/uL 150-450 [facility] Protein C antigen assayOrder ed By: Dr. Leonard on 07-28-2022 Protein C Ag actual/normal IA (PPP) [Relative mass conc] 118 % 60-150 [facility] Protein Test strip Ql (U)Ord ered By: Cong Marquez on 07-28-2022 Protein Ql (U) 100 mg/dl Negative [facility] Serum beta 2 glycoprotein 1 IgA antibody detectionOrdered By: Dr. Leonard on 07-28-2022 Beta 2 glycoprotein 1 IgA Ql (S) <9 0-25 [facility] Comment on above: Result Units: GPI Ig A unitsThe reference interval reflects a 3SD or 99th percentileinterval, which is thought to represent a potentiallyclinically significant result in accordance with theInternational Consensus Statement on the classificationcriteria for definitive antiphospholipid syndrome (APS). JThromb Haem 2006;4:295-306. Serum beta 2 glycoprotein 1 IgG antibody detectionOrdered By: Dr. Leonard on 07-28-2022 Beta 2 glycoprotein 1 IgG Ql (S) <9 0-20 [facility] Comment on above: Result Units: GPI Ig G unitsThe reference interval reflects a 3SD or 99th percentileinterval, which is thought to represent a potentiallyclinically significant result in accordance with theInternational Consensus Statement on the classificationcriteria for definitive antiphospholipid syndrome (APS). JThromb Haem 2006;4:295-306. Serum beta 2 glycoprotein 1 IgM antibody detectionOrdered By: Dr. Leonard on 07-28-2022 Beta 2 glycoprotein 1 IgM Ql (S) <9 0-32 [facility] Comment on above: Result Units: GPI Ig M unitsThe reference interval reflects a 3SD or 99th percentileinterval, which is thought to represent a potentiallyclinically significant result in accordance with theInternational Consensus Statement on the classificationcriteria for definitive antiphospholipid syndrome (APS). JThromb Haem 2006;4:295-306. Serum cardiolipin IgG antibo dy assay by immunoassay (units/volume)Ordered By: Dr. Leonard on 07-28-2022 Cardiolipin IgG IA Qn (S) < 9 GPL U/mL 0-14 [facility] Comment on above: Negative: <15 Indete rminate: 15 - 20 Low-Med Positive: >20 - 80 High Positive: >80 Serum or plasma albumin emma urement (mass/volume)Ordered By: Dr. Cottrell on 07-28-2022 Albumin [Mass/Vol] 3.8 g/dL 3.2-5.0 [facility] Serum or plasma calcium emma urement (mass/volume)Ordered By: Cong Marquez on 07-28-2022 Calcium [Mass/Vol] 9.2 mg/dL 8.5-10.1 [facility] Serum or plasma creatinine m easurement (mass/volume)Ordered By: Cong Marquez on 07-28-2022 Creatinine [Mass/Vol] 0.59 mg/dL 0.55-1.02 [facility] Comment on above: The validity of the calculated GFR & GFRAA in patients over 70 years has not been determined. Clinical correlation is essential. Serum or plasma urea nitroge n measurement (mass/volume)Ordered By: Cong Marquez on 07-28-2022 Urea nitrogen [Mass/Vol] 11 mg/dL 7-18 [facility] Squamous epithelial cells de tection in urine sediment by light microscopyOrdered By: Cong Marquez on 07-28-2022 Epithelial cells.squamous LM Ql (Urine sed) 5-10 SEEN /hpf 5-10 [facility] Thin prep Papanicolaou smear with manual screeningOrdered By: Dr. Cottrell on 07-28-2022 Thin prep Papanicolaou smear with manual screening 51 U/L 15-37 [facility] Thin prep Papanicolaou smear with manual screeningOrdered By: Cong Marquez on 07-28-2022 Thin prep Papanicolaou smear with manual screening 10 5-15 [facility] Urine blood detectionOrdered By: Cong Marquez on 07-28-2022 RBC Ql (U) 10 /ul Negative [facility] RBC Ql (U) 0 SEEN /hpf 0-5 [facility] Urine clarityOrdered By: Erickson Marquez on 07-28-2022 Clarity (U) Cloudy Clear [facility] Urine color determinationOrd ered By: Cong Marquez on 07-28-2022 Color (U) Yellow Yellow [facility] Urine glucose detectionOrder ed By: Cong Marquez on 07-28-2022 Glucose Ql (U) Normal mg/dl Normal [facility] Urine leukocyte esterase det ection by dipstickOrdered By: Cong Marquez on 07-28-2022 Leukocyte esterase Test strip Ql (U) 25 /ul Negative [facility] Urine pHOrdered By: Cong south on 07-28-2022 pH (U) 6.0 [pH] 5.0 - 8.0 [facility] Urine sediment bacteria coun t by microscopy (number/high power field)Ordered By: Cong Marquez on 07-28-2022 Bacteria LM.HPF (Urine sed) [#/Area] 4 /[HPF] None Seen [facility] Urine specific gravity measu rementOrdered By: Cong Marquez on 07-28-2022 Specific gravity (U) [Rel density] 1.020 1.002-1.03 0 [facility] Urobilinogen Auto test strip Ql (U)Ordered By: Cong Marquez on 07-28-2022 Urobilinogen Ql (U) 1 mg/dl Normal [facility] Basophil percentageon 2021 Bilirubin [Mass/Vol] 0.60 mg/dL 0.20-1.00 [facility] Work Phone: Comment on above: For patients on eltr ombopag therapy, use of Dimension [place] TBIL is not recommended. Chloride [Moles/Vol] 100 mmol/L 98-107 [facility] Work Phone: Glucose [Mass/Vol] 99 mg/dL 74-106 [facility] Work Phone: Potassium [Moles/Vol] 3.0 mmol/L 3.5-5.1 [facility] Work Phone: Protein [Mass/Vol] 6.8 g/dL 6.4-8.2 [facility] Work Phone: Sodium [Moles/Vol] 140 mmol/L 136-145 [facility] Work Phone: Laboratory - Chemistry and C hemistry - challengeon 02-22-2022 ALP [Catalytic activity/Vol] 131 U/L 45-117 [facility] Work Phone: ALT [Catalytic activity/Vol] 100 U/L 13-56 [facility] Work Phone: CO2 [Moles/Vol] 34.0 mmol/L 21.0-32.0 [facility] Work Phone: Globulin (S) [Mass/Vol] 3.6 g/dL 2.2-4.2 [facility] Work Phone: [phone] Lipase [Catalytic activity/Vol] 1212 U/L 73-393 [facility] Work Phone: Magnesium [Mass/Vol] 1.9 mg/dL 1.6-2.6 [facility] Work Phone: Urea nitrogen/Creatinine [Mass ratio] 7.3 mg/mg 10-20 [facility] Work Phone: No Panel Informationon 02-22 Estimated Creatinine Clearance Calc 115.06 ml/min [facility] Work Phone: Estimated GFR (MDRD) Amer 156 mL/min >60 [facility] Work Phone: Comment on above: GFR Calc Estimated GFR (MDRD) Non-Af Amer 129 mL/min >60 [facility] Work Phone: Comment on above: Non- GFR Calc Serum or plasma albumin emma urement (mass/volume)on 02-22-2022 Albumin [Mass/Vol] 3.2 g/dL 3.2-5.0 [facility] Work Phone: Serum or plasma albumin/glob ulin mass ratioon 02-22-2022 Albumin/Globulin [Mass ratio] 0.9 {ratio} 0.9-2.4 [facility] Work Phone: Serum or plasma calcium emma urement (mass/volume)on 02-22-2022 Calcium [Mass/Vol] 9.2 mg/dL 8.5-10.1 [facility] Work Phone: Serum or plasma creatinine m easurement (mass/volume)on 02-22-2022 Creatinine [Mass/Vol] 0.55 mg/dL 0.55-1.02 [facility] Work Phone: Comment on above: The validity of the calculated GFR & GFRAA in patients over 70 years has not been determined. Clinical correlation is essential. Serum or plasma urea nitroge n measurement (mass/volume)on 02-22-2022 Urea nitrogen [Mass/Vol] 4 mg/dL 7-18 [facility] Work Phone: Thin prep Papanicolaou smear with manual screeningon 02-22-2022 Thin prep Papanicolaou smear with manual screening 126 U/L 15-37 [facility] Work Phone: Thin prep Papanicolaou smear with manual screening 6 5-15 [facility] Work Phone: Absolute lymphocyte counton 02-21-2022 Lymphocytes Auto (Unsp spec) [#/Vol] 1.20 10*3/uL 0.83-4.51 [facility] Work Phone: Basophil percentageon 2021 Basophil percentage 3.0 mg/dL 2.5-4.9 [facility] Work Phone: Basophils/100 WBC (Bld) 0.4 % 0-1 [facility] Work Phone: Eosinophils/100 WBC (Bld) 3.4 % 0-5 [facility] Work Phone: Neutrophils (Bld) [#/Vol] 5.1 10*3/uL 2.0-7.7 [facility] Work Phone: Neutrophils/100 WBC (Bld) 71.5 % 47-70 [facility] Work Phone: WBC (Bld) [#/Vol] 7.1 10*3/uL 4.4-11.0 [facility] Work [facility]: Blood erythrocytes count (nu mber/volume)on 02-21-2022 RBC (Bld) [#/Vol] 3.96 10*6/uL 4.2-5.4 [facility] Work Phone: Blood hemoglobin measurement (mass/volume)on 02-21-2022 Hemoglobin (Bld) [Mass/Vol] 13.1 g/dL 12.0-15.0 [facility] Work Phone: Blood lymphocytes/100 leukoc yteson 02-21-2022 Lymphocytes/100 WBC (Bld) 16.8 % 19-41 [facility] Work Phone: Blood monocytes/100 leukocyt eson 02-21-2022 Monocytes/100 WBC (Bld) 7.6 % 0-10 [facility] Work Phone: Blood platelet mean volumeon 02-21-2022 Platelet mean volume (Bld) [Entitic vol] 10.3 fL 6.2-12.0 [facility] Work Phone: Determination of erythrocyte mean corpuscular volume (MCV)on 02-21-2022 MCV (RBC) [Entitic vol] 99.7 fL 81-99 [facility] Work Phone: [phone] Hematocrit Auto (Bld) [Volum e fraction]on 02-21-2022 Hematocrit (Bld) [Volume fraction] 39.5 % 37-47 [facility] Work Phone: Laboratory - Hematology and Cell countson 02-21-2022 Erythrocyte distribution width (RBC) [Entitic vol] 47.6 fL 35.1-43.9 [facility] Work Phone: Erythrocyte distribution width (RBC) [Ratio] 12.9 % 11.6-14.6 [facility] Work Phone: Immature granulocytes/100 WBC (Bld) 0.300 % 0.0-0.9 [facility] Work Phone: [phone] Comment on above: IG% - Immature Granu locytes (promyelocytes, myelocytes and metamyelocytes) > 1% indicates that a LEFT SHIFT is Present. MCH (RBC) [Entitic mass] 33.1 pg 27.0-32.0 [facility] Work Phone: Nucleated RBC/100 WBC (Bld) [Ratio] 0 % 0-5 [facility] Work Phone: MCHC Auto (RBC) [Mass/Vol]on 02-21-2022 MCHC (RBC) [Mass/Vol] 33.2 g/dL 32-36 [facility] Work Phone: Platelets bldon 02-21-2022 Platelets (Bld) [#/Vol] 211 10*3/uL 150-450 [facility] Work Phone: Beta hCG serum qualon 2021 Beta HCG ( test) Ql Negative [facility] Work Phone: Direct bilirubinon 2 Bilirubin.direct [Mass/Vol] 0.23 mg/dL 0.00-0.30 [facility] Work Phone: Absolute lymphocyte counton 01-04-2022 Lymphocytes Auto (Unsp spec) [#/Vol] 2.33 10*3/uL 0.83-4.51 [facility] Work Phone: Basophil percentageon 2021 Basophils/100 WBC (Bld) 0.6 % 0-1 [facility] Work Phone: Bilirubin [Mass/Vol] 0.40 mg/dL 0.20-1.00 [facility] Work Phone: Comment on above: For patients on eltr ombopag therapy, use of Dimension [place] TBIL is not recommended. Chloride [Moles/Vol] 107 mmol/L 98-107 [facility] Work [facility]: Eosinophils/100 WBC (Bld) 2.2 % 0-5 [facility] Work Phone: Glucose [Mass/Vol] 108 mg/dL 74-106 [facility] Work Phone: Comment on above: Fasting Glucose resu lt from 100 to 125 mg/dL suggests IMPAIRED HOMEOSTASIS per A.D.A. criteria. Neutrophils (Bld) [#/Vol] 8.7 10*3/uL 2.0-7.7 [facility] Work Phone: Neutrophils/100 WBC (Bld) 70.6 % 47-70 [facility] Work Phone: Potassium [Moles/Vol] 3.3 mmol/L 3.5-5.1 [facility] Work Phone: Protein [Mass/Vol] 7.3 g/dL 6.4-8.2 [facility] Work Phone: Sodium [Moles/Vol] 142 mmol/L 136-145 [facility] Work Phone: WBC (Bld) [#/Vol] 12.3 10*3/uL 4.4-11.0 [facility] Work Phone: [phone] Blood erythrocytes count (nu mber/volume)on 01-04-2022 RBC (Bld) [#/Vol] 4.49 10*6/uL 4.2-5.4 [facility] Work Phone: Blood hemoglobin measurement (mass/volume)on 01-04-2022 Hemoglobin (Bld) [Mass/Vol] 14.8 g/dL 12.0-15.0 [facility] Work Phone: Blood lymphocytes/100 leukoc yteson 01-04-2022 Lymphocytes/100 WBC (Bld) 19.0 % 19-41 [facility] Work Phone: [phone] Blood monocytes/100 leukocyt eson 08-02-2022 Monocytes/100 WBC (Bld) 7.1 % 0-10 [facility] Work Phone: Blood platelet mean volumeon 01-04-2022 Platelet mean volume (Bld) [Entitic vol] 10.2 fL 6.2-12.0 [facility] Work Phone: Determination of erythrocyte mean corpuscular volume (MCV)on 01-04-2022 MCV (RBC) [Entitic vol] 94.4 fL 81-99 [facility] Work Phone: Direct bilirubinon 2 Bilirubin.direct [Mass/Vol] 0.20 mg/dL 0.00-0.30 [facility] Work Phone: Hematocrit Auto (Bld) [Volum e fraction]on 01-04-2022 Hematocrit (Bld) [Volume fraction] 42.4 % 37-47 [facility] Work Phone: Laboratory - Chemistry and C hemistry - challengeon 01-04-2022 ALP [Catalytic activity/Vol] 188 U/L 45-117 [facility] Work Phone: ALT [Catalytic activity/Vol] 99 U/L 13-56 [facility] Work Phone: CO2 [Moles/Vol] 25.0 mmol/L 21.0-32.0 [facility] Work Phone: Globulin (S) [Mass/Vol] 3.8 g/dL 2.2-4.2 [facility] Work Phone: Lipase [Catalytic activity/Vol] 334 U/L 73-393 [facility] Work Phone: Urea nitrogen/Creatinine [Mass ratio] 19.3 mg/mg 10-20 [facility] Work Phone: Laboratory - Hematology and Cell countson 01-04-2022 Erythrocyte distribution width (RBC) [Entitic vol] 44.1 fL 35.1-43.9 [facility] Work Phone: Erythrocyte distribution width (RBC) [Ratio] 12.8 % 11.6-14.6 [facility] Work Phone: Immature granulocytes/100 WBC (Bld) 0.500 % 0.0-0.9 [facility] Work Phone: Comment on above: IG% - Immature Granu locytes (promyelocytes, myelocytes and metamyelocytes) > 1% indicates that a LEFT SHIFT is Present. MCH (RBC) [Entitic mass] 33.0 pg 27.0-32.0 [facility] Work Phone: Nucleated RBC/100 WBC (Bld) [Ratio] 0 % 0-5 [facility] Work Phone: MCHC Auto (RBC) [Mass/Vol]on 01-04-2022 MCHC (RBC) [Mass/Vol] 34.9 g/dL 32-36 [facility] Work Phone: No Panel Informationon 01-04 Estimated Creatinine Clearance Calc 94.46 ml/min [facility] Work Phone: Estimated GFR (MDRD) Amer 123 mL/min >60 [facility] Work Phone: Comment on above: GFR Calc Estimated GFR (MDRD) Non-Af Amer 102 mL/min >60 [facility] Work Phone: Comment on above: Non- GFR Calc Ethyl Alcohol Level 66.0 mg/dL [facility] Work Phone: Comment on above: The serum:whole bloo d ethanol ratio is approximately 1.14and varies slightly with hematocrit. Medical Alcohol reference interval and critical value innon-tolerant individuals; 50 - 100 Impairment 100 Intoxication 100 - 250 Severe Poisoning 250 - 400 Deep/possible fatal coma Platelets bldon 01-04-2022 Platelets (Bld) [#/Vol] 442 10*3/uL 150-450 [facility] Work Phone: Serum or plasma albumin emma urement (mass/volume)on 01-04-2022 Albumin [Mass/Vol] 3.5 g/dL 3.2-5.0 [facility] Work Phone: Serum or plasma calcium emma urement (mass/volume)on 01-04-2022 Calcium [Mass/Vol] 9.7 mg/dL 8.5-10.1 [facility] Work Phone: Serum or plasma creatinine m easurement (mass/volume)on 01-04-2022 Creatinine [Mass/Vol] 0.67 mg/dL 0.55-1.02 [facility] Work Phone: Comment on above: The validity of the calculated GFR & GFRAA in patients over 70 years has not been determined. Clinical correlation is essential. Serum or plasma urea nitroge n measurement (mass/volume)on 01-04-2022 Urea nitrogen [Mass/Vol] 13 mg/dL 7-18 [facility] Work Phone: Thin prep Papanicolaou smear with manual screeningon 01-04-2022 Thin prep Papanicolaou smear with manual screening 223 U/L 15-37 [facility] Work Phone: Thin prep Papanicolaou smear with manual screening 10 5-15 [facility] Work Phone: Basophil percentageon 2021 Bilirubin [Mass/Vol] 0.60 mg/dL 0.20-1.00 [facility] Work Phone: Comment on above: For patients on eltr ombopag therapy, use of Dimension [place] TBIL is not recommended. Chloride [Moles/Vol] 99 mmol/L 98-107 [facility] Work Phone: Glucose [Mass/Vol] 106 mg/dL 74-106 [facility] Work Phone: Comment on above: Fasting Glucose resu lt from 100 to 125 mg/dL suggests IMPAIRED HOMEOSTASIS per A.D.A. criteria. Potassium [Moles/Vol] 3.5 mmol/L 3.5-5.1 [facility] Work Phone: Protein [Mass/Vol] 6.7 g/dL 6.4-8.2 [facility] Work Phone: Sodium [Moles/Vol] 135 mmol/L 136-145 [facility] Work Phone: Laboratory - Chemistry and C hemistry - challengeon 12-16-2021 ALP [Catalytic activity/Vol] 300 U/L 45-117 [facility] Work Phone: ALT [Catalytic activity/Vol] 484 U/L 13-56 [facility] Work Phone: CO2 [Moles/Vol] 32.0 mmol/L 21.0-32.0 [facility] Work Phone: Globulin (S) [Mass/Vol] 3.7 g/dL 2.2-4.2 [facility] Work Phone: Urea nitrogen/Creatinine [Mass ratio] 9.8 mg/mg 10-20 [facility] Work Phone: No Panel Informationon 12-16 Estimated Creatinine Clearance Calc 103.75 ml/min [facility] Work Phone: Estimated GFR (MDRD) Amer 138 mL/min >60 [facility] Work Phone: Comment on above: GFR Calc Estimated GFR (MDRD) Non-Af Amer 114 mL/min >60 [facility] Work Phone: Comment on above: Non- GFR Calc Serum or plasma albumin emma urement (mass/volume)on 12-16-2021 Albumin [Mass/Vol] 3.0 g/dL 3.2-5.0 [facility] Work Phone: Serum or plasma albumin/glob ulin mass ratioon 12-16-2021 Albumin/Globulin [Mass ratio] 0.8 {ratio} 0.9-2.4 [facility] Work Phone: Serum or plasma calcium emma urement (mass/volume)on 12-16-2021 Calcium [Mass/Vol] 9.2 mg/dL 8.5-10.1 [facility] Work Phone: Serum or plasma creatinine m easurement (mass/volume)on 12-16-2021 Creatinine [Mass/Vol] 0.61 mg/dL 0.55-1.02 [facility] Work Phone: Comment on above: The validity of the calculated GFR & GFRAA in patients over 70 years has not been determined. Clinical correlation is essential. Serum or plasma urea nitroge n measurement (mass/volume)on 12-16-2021 Urea nitrogen [Mass/Vol] 6 mg/dL 7-18 [facility] Work Phone: Thin prep Papanicolaou smear with manual screeningon 12-16-2021 Thin prep Papanicolaou smear with manual screening 701 U/L 15-37 [facility] Work Phone: Thin prep Papanicolaou smear with manual screening 4 5-15 [facility] Work Phone: Absolute lymphocyte counton 12-14-2021 Lymphocytes Auto (Unsp spec) [#/Vol] 1.28 10*3/uL 0.83-4.51 [facility] Work Phone: Basophil percentageon 2021 Basophils/100 WBC (Bld) 0.5 % 0-1 [facility] Work Phone: Eosinophils/100 WBC (Bld) 3.1 % 0-5 [facility] Work Phone: [phone] Neutrophils (Bld) [#/Vol] 3.7 10*3/uL 2.0-7.7 [facility] Work Phone: [phone] Neutrophils/100 WBC (Bld) 63.9 % 47-70 [facility] Work Phone: [phone] WBC (Bld) [#/Vol] 5.8 10*3/uL 4.4-11.0 [facility] Work Phone: Blood erythrocytes count (nu mber/volume)on 12-14-2021 RBC (Bld) [#/Vol] 4.02 10*6/uL 4.2-5.4 [facility] Work Phone: Blood hemoglobin measurement (mass/volume)on 12-14-2021 Hemoglobin (Bld) [Mass/Vol] 13.5 g/dL 12.0-15.0 [facility] Work Phone: Blood lymphocytes/100 leukoc yteson 12-14-2021 Lymphocytes/100 WBC (Bld) 22.2 % 19-41 [facility] Work Phone: Blood monocytes/100 leukocyt eson 12-14-2021 Monocytes/100 WBC (Bld) 10.1 % 0-10 [facility] Work Phone: Blood platelet mean volumeon 12-14-2021 Platelet mean volume (Bld) [Entitic vol] 10.6 fL 6.2-12.0 [facility] Work Phone: Determination of erythrocyte mean corpuscular volume (MCV)on 12-14-2021 MCV (RBC) [Entitic vol] 96.0 fL 81-99 [facility] Work Phone: Direct bilirubinon 2 Bilirubin.direct [Mass/Vol] 0.26 mg/dL 0.00-0.30 [facility] Work Phone: Hematocrit Auto (Bld) [Volum e fraction]on 12-14-2021 Hematocrit (Bld) [Volume fraction] 38.6 % 37-47 [facility] Work Phone: Laboratory - Chemistry and C hemistry - challengeon 12-14-2021 Magnesium [Mass/Vol] 1.6 mg/dL 1.6-2.6 [facility] Work Phone: Laboratory - Hematology and Cell countson 12-14-2021 Erythrocyte distribution width (RBC) [Entitic vol] 47.2 fL 35.1-43.9 [facility] Work Phone: Erythrocyte distribution width (RBC) [Ratio] 13.2 % 11.6-14.6 [facility] Work Phone: Immature granulocytes/100 WBC (Bld) 0.200 % 0.0-0.9 [facility] Work Phone: Comment on above: IG% - Immature Granu locytes (promyelocytes, myelocytes and metamyelocytes) > 1% indicates that a LEFT SHIFT is Present. MCH (RBC) [Entitic mass] 33.6 pg 27.0-32.0 [facility] Work Phone: Nucleated RBC/100 WBC (Bld) [Ratio] 0 % 0-5 [facility] Work Phone: MCHC Auto (RBC) [Mass/Vol]on 12-14-2021 MCHC (RBC) [Mass/Vol] 35.0 g/dL 32-36 [facility] Work Phone: Platelets bldon 12-14-2021 Platelets (Bld) [#/Vol] 206 10*3/uL 150-450 [facility] Work Phone: Absolute lymphocyte counton 12-13-2021 Lymphocytes Auto (Unsp spec) [#/Vol] 1.36 10*3/uL 0.83-4.51 [facility] Work Phone: Basophil percentageon 2021 Basophil percentage 0-5 SEEN /hpf 0-5 [facility] Work Phone: Basophils/100 WBC (Bld) 0.6 % 0-1 [facility] Work Phone: Bilirubin [Mass/Vol] 2.80 mg/dL 0.20-1.00 [facility] Work Phone: Comment on above: For patients on eltr ombopag therapy, use of Dimension [place] TBIL is not recommended. Chloride [Moles/Vol] 92 mmol/L 98-107 [facility] Work Phone: Eosinophils/100 WBC (Bld) 1.4 % 0-5 [facility] Work Phone: Glucose [Mass/Vol] 94 mg/dL 74-106 [facility] Work Phone: Neutrophils (Bld) [#/Vol] 6.5 10*3/uL 2.0-7.7 [facility] Work Phone: Neutrophils/100 WBC (Bld) 73.3 % 47-70 [facility] Work Phone: Potassium [Moles/Vol] 2.6 mmol/L 3.5-5.1 [facility] Work Phone: [phone] Comment on above: Critical Result(s) C alled at: 16:21:32 12/13/2021 by: Ulysses Dsila to Taya Whiting RN (ER). Results read back by same. Protein [Mass/Vol] 8.2 g/dL 6.4-8.2 [facility] Work Phone: Sodium [Moles/Vol] 135 mmol/L 136-145 [facility] Work Phone: WBC (Bld) [#/Vol] 8.8 10*3/uL 4.4-11.0 [facility] Work Phone: Beta hCG serum qualon 2021 Beta HCG ( test) Ql Negative [facility] Work Phone: Bilirubin Test strip Ql (U)o n 12-13-2021 Bilirubin Ql (U) 3 mg/dL Negative [facility] Work Phone: Comment on above: COLOR OF URINE MAY A FFECT DIPSTICK RESULTS. Blood erythrocytes count (nu mber/volume)on 12-13-2021 RBC (Bld) [#/Vol] 4.66 10*6/uL 4.2-5.4 [facility] Work Phone: Blood hemoglobin measurement (mass/volume)on 12-13-2021 Hemoglobin (Bld) [Mass/Vol] 15.3 g/dL 12.0-15.0 [facility] Work Phone: Blood lymphocytes/100 leukoc yteson 12-13-2021 Lymphocytes/100 WBC (Bld) 15.4 % 19-41 [facility] Work Phone: Blood monocytes/100 leukocyt eson 12-13-2021 Monocytes/100 WBC (Bld) 8.8 % 0-10 [facility] Work Phone: Blood platelet mean volumeon 12-13-2021 Platelet mean volume (Bld) [Entitic vol] 10.0 fL 6.2-12.0 [facility] Work Phone: Determination of erythrocyte mean corpuscular volume (MCV)on 12-13-2021 MCV (RBC) [Entitic vol] 93.8 fL 81-99 [facility] Work Phone: Direct bilirubinon 2 Bilirubin.direct [Mass/Vol] 1.84 mg/dL 0.00-0.30 [facility] Work Phone: Hematocrit Auto (Bld) [Volum e fraction]on 12-13-2021 Hematocrit (Bld) [Volume fraction] 43.7 % 37-47 [facility] Work Phone: Ketones Test strip Ql (U)on 12-13-2021 Ketones Ql (U) 50 mg/dl Negative [facility] Work Phone: Laboratory - Chemistry and C hemistry - challengeon 12-13-2021 ALP [Catalytic activity/Vol] 305 U/L 45-117 [facility] Work Phone: ALT [Catalytic activity/Vol] 208 U/L 13-56 [facility] Work Phone: CO2 [Moles/Vol] 30.0 mmol/L 21.0-32.0 [facility] Work Phone: Globulin (S) [Mass/Vol] 4.3 g/dL 2.2-4.2 [facility] Work Phone: Lipase [Catalytic activity/Vol] 6185 U/L 73-393 [facility] Work Phone: Magnesium [Mass/Vol] 1.8 mg/dL 1.6-2.6 [facility] Work Phone: Urea nitrogen/Creatinine [Mass ratio] 11.7 mg/mg 10-20 [facility] Work Phone: Laboratory - Drug toxicology on 12-13-2021 Amphetamines Ql (U) Positive <1000 ng/mL [facility] Work Phone: Benzodiazepines Ql (U) Negative < 200 ng/mL [facility] Work Phone: Cannabinoids Screen Ql (U) Negative < 50 ng/mL [facility] Work Phone: Cocaine Ql (U) Negative < 300 ng/mL [facility] Work Phone: Opiates Ql (U) Negative < 300 ng/mL [facility] Work Phone: Laboratory - Hematology and Cell countson 12-13-2021 Erythrocyte distribution width (RBC) [Entitic vol] 44.4 fL 35.1-43.9 [facility] Work Phone: Erythrocyte distribution width (RBC) [Ratio] 13.0 % 11.6-14.6 [facility] Work Phone: Immature granulocytes/100 WBC (Bld) 0.500 % 0.0-0.9 [facility] Work Phone: Comment on above: IG% - Immature Granu locytes (promyelocytes, myelocytes and metamyelocytes) > 1% indicates that a LEFT SHIFT is Present. MCH (RBC) [Entitic mass] 32.8 pg 27.0-32.0 [facility] Work Phone: Nucleated RBC/100 WBC (Bld) [Ratio] 0 % 0-5 [facility] Work Phone: MCHC Auto (RBC) [Mass/Vol]on 12-13-2021 MCHC (RBC) [Mass/Vol] 35.0 g/dL 32-36 [facility] Work Phone: Mucus LM Ql (Urine sed)on Mucus Ql (Urine sed) 0 SEEN /hpf [facility] Work Phone: Nitrite Test strip Ql (U)on 12-13-2021 Nitrite Ql (U) Positive Negative [facility] Work Phone: No Panel Informationon 12-13 MDMA (Ecstasy) Screen Negative < 500 ng/mL [facility] Work Phone: Urine Barbiturates Screen Negative < 200 ng/mL [facility] Work Phone: Urine Drug Screen Comment [facility] Work Phone: Comment on above: CONFIRMATORY TESTING FOR ALL POSITIVE URINE DRUG SCREENRESULTS WILL ONLY BE SENT OUT UPON PHYSICIAN ORDER. VISTA Urine Drug Screen methods provide only preliminaryanalytical test results. A more specific alternate chemicalmethod must be used in order to obtain a confirmedanalytical result. Gas chromatography/mass spectrometery(GC/MS) is the preferred confirmatory method. Clinicalconsideration and professional judgement should be appliedto any drug of abuse test result, particularly whenpreliminary positive results are used. URINE TCA TESTING MUST BE ORDERED SEPARATELY. USE TESTMNEMONIC: [facility] Urine Methadone Screen Negative < 300 ng/mL [facility] Work Phone: Estimated Creatinine Clearance Calc 91.72 ml/min [facility] Work Phone: Estimated GFR (MDRD) Amer 121 mL/min >60 [facility] Work Phone: Comment on above: GFR Calc Estimated GFR (MDRD) Non-Af Amer 100 mL/min >60 [facility] Work Phone: Comment on above: Non- GFR Calc Ethyl Alcohol Level 51.0 mg/dL [facility] Work Phone: Comment on above: The serum:whole bloo d ethanol ratio is approximately 1.14and varies slightly with hematocrit. Medical Alcohol reference interval and critical value innon-tolerant individuals; 50 - 100 Impairment 100 Intoxication 100 - 250 Severe Poisoning 250 - 400 Deep/possible fatal coma Troponin I High Sensitivity 9 pg/mL 3.0-54.0 [facility] Work Phone: Comment on above: Please Note: New Lydia t Units and Gender Specific Reference Ranges. For more information see Policy Stat Procedure [place] High Sensitivity Troponin (TNIH) and attachments. Platelets bldon 12-13-2021 Platelets (Bld) [#/Vol] 266 10*3/uL 150-450 [facility] Work Phone: Protein Test strip Ql (U)on 12-13-2021 Protein Ql (U) 100 mg/dl Negative [facility] Work Phone: Serum or plasma albumin emma urement (mass/volume)on 12-13-2021 Albumin [Mass/Vol] 3.9 g/dL 3.2-5.0 [facility] Work Phone: Serum or plasma calcium emma urement (mass/volume)on 12-13-2021 Calcium [Mass/Vol] 10.1 mg/dL 8.5-10.1 [facility] Work Phone: Serum or plasma creatinine m easurement (mass/volume)on 12-13-2021 Creatinine [Mass/Vol] 0.69 mg/dL 0.55-1.02 [facility] Work Phone: Comment on above: The validity of the calculated GFR & GFRAA in patients over 70 years has not been determined. Clinical correlation is essential. Serum or plasma urea nitroge n measurement (mass/volume)on 12-13-2021 Urea nitrogen [Mass/Vol] 8 mg/dL 7-18 [facility] Work Phone: Squamous epithelial cells de tection in urine sediment by light microscopyon 12-13-2021 Epithelial cells.squamous LM Ql (Urine sed) 5-10 SEEN /hpf 5-10 [facility] Work Phone: Thin prep Papanicolaou smear with manual screeningon 12-13-2021 Thin prep Papanicolaou smear with manual screening 668 U/L 15-37 [facility] Work Phone: Thin prep Papanicolaou smear with manual screening 13 5-15 [facility] Work Phone: Urine blood detectionon 12-03 RBC Ql (U) 25 /ul Negative [facility] Work Phone: RBC Ql (U) 0-5 SEEN /hpf 0-5 [facility] Work Phone: Urine clarityon 12-13-2021 Clarity (U) Cloudy Clear [facility] Work Phone: Urine color determinationon 12-13-2021 Color (U) Yellow Yellow [facility] Work Phone: Urine glucose detectionon Glucose Ql (U) Normal mg/dl Normal [facility] Work Phone: Urine leukocyte esterase det ection by dipstickon 12-13-2021 Leukocyte esterase Test strip Ql (U) 25 /ul Negative [facility] Work Phone: Urine pHon 12-13-2021 pH (U) 7.0 [pH] 5.0 - 8.0 [facility] Work Phone: Urine phencyclidine (PCP) de tectionon 12-13-2021 Phencyclidine Ql (U) Negative < 25 ng/mL [facility] Work Phone: Urine sediment bacteria coun t by microscopy (number/high power field)on 12-13-2021 Bacteria LM.HPF (Urine sed) [#/Area] 4 /[HPF] None Seen [facility] Work Phone: Urine specific gravity measu rementon 12-13-2021 Specific gravity (U) [Rel density] 1.015 1.002-1.03 0 [facility] Work Phone: Urobilinogen Auto test strip Ql (U)on 12-13-2021 Urobilinogen Ql (U) 8 mg/dl Normal [facility] Work Phone: Basophil percentageon 2021 Bilirubin [Mass/Vol] 0.60 mg/dL 0.20-1.00 [facility] Work Phone: Comment on above: For patients on eltr ombopag therapy, use of Dimension [place] TBIL is not recommended. Chloride [Moles/Vol] 100 mmol/L 98-107 [facility] Work Phone: Glucose [Mass/Vol] 97 mg/dL 74-106 [facility] Work Phone: Potassium [Moles/Vol] 3.1 mmol/L 3.5-5.1 [facility] Work Phone: Protein [Mass/Vol] 6.3 g/dL 6.4-8.2 [facility] Work Phone: Sodium [Moles/Vol] 134 mmol/L 136-145 [facility] Work Phone: Laboratory - Chemistry and C hemistry - challengeon 08-25-2021 ALP [Catalytic activity/Vol] 84 U/L 45-117 [facility] Work Phone: ALT [Catalytic activity/Vol] 38 U/L 13-56 [facility] Work Phone: CO2 [Moles/Vol] 31.0 mmol/L 21.0-32.0 [facility] Work Phone: Globulin (S) [Mass/Vol] 3.5 g/dL 2.2-4.2 [facility] Work Phone: Urea nitrogen/Creatinine [Mass ratio] 7.9 mg/mg 10-20 [facility] Work Phone: No Panel Informationon 08-25 Estimated Creatinine Clearance Calc 126.57 ml/min [facility] Work Phone: Estimated GFR (MDRD) Amer 172 mL/min >60 [facility] Work Phone: Comment on above: GFR Calc Estimated GFR (MDRD) Non-Af Amer 142 mL/min >60 [facility] Work Phone: Comment on above: Non- GFR Calc Serum or plasma albumin emma urement (mass/volume)on 08-25-2021 Albumin [Mass/Vol] 2.8 g/dL 3.2-5.0 [facility] Work Phone: Serum or plasma albumin/glob ulin mass ratioon 08-25-2021 Albumin/Globulin [Mass ratio] 0.8 {ratio} 0.9-2.4 [facility] Work Phone: Serum or plasma calcium emma urement (mass/volume)on 08-25-2021 Calcium [Mass/Vol] 8.4 mg/dL 8.5-10.1 [facility] Work Phone: Serum or plasma creatinine m easurement (mass/volume)on 08-25-2021 Creatinine [Mass/Vol] 0.50 mg/dL 0.55-1.02 [facility] Work Phone: Comment on above: The validity of the calculated GFR & GFRAA in patients over 70 years has not been determined. Clinical correlation is essential. Serum or plasma urea nitroge n measurement (mass/volume)on 08-25-2021 Urea nitrogen [Mass/Vol] 4 mg/dL 7-18 [facility] Work Phone: Thin prep Papanicolaou smear with manual screeningon 08-25-2021 Thin prep Papanicolaou smear with manual screening 29 U/L 15-37 [facility] Work Phone: Thin prep Papanicolaou smear with manual screening 3 5-15 [facility] Work Phone: [phone] Absolute lymphocyte counton 08-24-2021 Lymphocytes Auto (Unsp spec) [#/Vol] 1.29 10*3/uL 0.83-4.51 [facility] Work Phone: Basophil percentageon 2021 Basophils/100 WBC (Bld) 0.4 % 0-1 [facility] Work Phone: Eosinophils/100 WBC (Bld) 2.8 % 0-5 [facility] Work Phone: Neutrophils (Bld) [#/Vol] 7.6 10*3/uL 2.0-7.7 [facility] Work Phone: Neutrophils/100 WBC (Bld) 76.1 % 47-70 [facility] Work Phone: WBC (Bld) [#/Vol] 9.9 10*3/uL 4.4-11.0 [facility] Work Phone: Blood erythrocytes count (nu mber/volume)on 08-24-2021 RBC (Bld) [#/Vol] 4.12 10*6/uL 4.2-5.4 [facility] Work Phone: Blood hemoglobin measurement (mass/volume)on 08-24-2021 Hemoglobin (Bld) [Mass/Vol] 13.7 g/dL 12.0-15.0 [facility] Work Phone: [phone] Blood lymphocytes/100 leukoc yteson 08-24-2021 Lymphocytes/100 WBC (Bld) 13.0 % 19-41 [facility] Work Phone: Blood monocytes/100 leukocyt eson 08-24-2021 Monocytes/100 WBC (Bld) 7.4 % 0-10 [facility] Work Phone: Blood platelet mean volumeon 08-24-2021 Platelet mean volume (Bld) [Entitic vol] 10.4 fL 6.2-12.0 [facility] Work Phone: Determination of erythrocyte mean corpuscular volume (MCV)on 08-24-2021 MCV (RBC) [Entitic vol] 98.1 fL 81-99 [facility] Work Phone: Hematocrit Auto (Bld) [Volum e fraction]on 08-24-2021 Hematocrit (Bld) [Volume fraction] 40.4 % 37-47 [facility] Work Phone: Laboratory - Chemistry and C hemistry - challengeon 08-24-2021 Magnesium [Mass/Vol] 1.9 mg/dL 1.6-2.6 [facility] Work Phone: Laboratory - Hematology and Cell countson 08-24-2021 Erythrocyte distribution width (RBC) [Entitic vol] 45.5 fL 35.1-43.9 [facility] Work Phone: Erythrocyte distribution width (RBC) [Ratio] 12.7 % 11.6-14.6 [facility] Work Phone: Immature granulocytes/100 WBC (Bld) 0.300 % 0.0-0.9 [facility] Work Phone: Comment on above: IG% - Immature Granu locytes (promyelocytes, myelocytes and metamyelocytes) > 1% indicates that a LEFT SHIFT is Present. MCH (RBC) [Entitic mass] 33.3 pg 27.0-32.0 [facility] Work Phone: Nucleated RBC/100 WBC (Bld) [Ratio] 0 % 0-5 [facility] Work Phone: MCHC Auto (RBC) [Mass/Vol]on 08-24-2021 MCHC (RBC) [Mass/Vol] 33.9 g/dL 32-36 [facility] Work Phone: Platelets bldon 08-24-2021 Platelets (Bld) [#/Vol] 228 10*3/uL 150-450 [facility] Work Phone: Basophil percentageon 2021 Cholesterol [Mass/Vol] 225 mg/dL <200 [facility] Work Phone: Comment on above: <200 mg/dL Desirable 200-240 mg/dL Borderline >240 mg/dL High Risk Triglyceride [Mass/Vol] 104 mg/dL <199 [facility] Work Phone: Comment on above: The drugs N-Acetylcy steine and Metamizole may falsely depress this assay.Serum Triglycerides Reference Interval Normal <150 mg/dL Borderline high 150 - 199 mg/dL High 200 - 499 mg/dL Very High > or = 500 mg/dL Serum or plasma cholesterol in HDL measurement (mass/volume)on 08-23-2021 Cholesterol in HDL [Mass/Vol] 65 mg/dL >40 [facility] Work Phone: Comment on above: The drugs N-Acetylcy steine and Metamizole may falsely depress this assay. Reference Range HDL <40 mg/dL Low HDL Cholesterol HDL >or= 60 mg/dL High HDL Cholesterol Serum or plasma cholesterol in VLDL measurement (mass/volume)on 08-23-2021 Cholesterol in VLDL [Mass/Vol] 21 mg/dL 5-40 [facility] Work Phone: Serum or plasma low density lipoprotein (LDL) cholesterol measurement (mass/volume)on 08-23-2021 Cholesterol in LDL [Mass/Vol] 139 mg/dL 0-130 [facility] Work Phone: Absolute lymphocyte counton 08-22-2021 Lymphocytes Auto (Unsp spec) [#/Vol] 1.01 10*3/uL 0.83-4.51 [facility] Work Phone: Basophil percentageon 2021 Basophil percentage 0-5 SEEN /hpf 0-5 [facility] Work Phone: Basophils/100 WBC (Bld) 0.3 % 0-1 [facility] Work Phone: Bilirubin [Mass/Vol] 0.50 mg/dL 0.20-1.00 [facility] Work Phone: Comment on above: For patients on eltr ombopag therapy, use of Dimension [place] TBIL is not recommended. Chloride [Moles/Vol] 103 mmol/L 98-107 [facility] Work Phone: Eosinophils/100 WBC (Bld) 0.1 % 0-5 [facility] Work Phone: Glucose [Mass/Vol] 132 mg/dL 74-106 [facility] Work Phone: Comment on above: Fasting Glucose resu lt greater than or equal to 126 mg/dL suggests DIABETES MELLITUS per A.D.A. criteria. Neutrophils (Bld) [#/Vol] 12.9 10*3/uL 2.0-7.7 [facility] Work Phone: Neutrophils/100 WBC (Bld) 87.4 % 47-70 [facility] Work Phone: [phone] Potassium [Moles/Vol] 3.1 mmol/L 3.5-5.1 [facility] Work Phone: Protein [Mass/Vol] 7.8 g/dL 6.4-8.2 [facility] Work Phone: Sodium [Moles/Vol] 140 mmol/L 136-145 [facility] Work Phone: WBC (Bld) [#/Vol] 14.7 10*3/uL 4.4-11.0 [facility] Work Phone: Beta hCG serum qualon 2021 Beta HCG ( test) Ql Negative [facility] Work Phone: Bilirubin Test strip Ql (U)o n 08-22-2021 Bilirubin Ql (U) Negative Negative [facility] Work Phone: Blood erythrocytes count (nu mber/volume)on 08-22-2021 RBC (Bld) [#/Vol] 4.73 10*6/uL 4.2-5.4 [facility] Work Phone: Blood hemoglobin measurement (mass/volume)on 08-22-2021 Hemoglobin (Bld) [Mass/Vol] 16.3 g/dL 12.0-15.0 [facility] Work Phone: Blood lymphocytes/100 leukoc yteson 08-22-2021 Lymphocytes/100 WBC (Bld) 6.9 % 19-41 [facility] Work Phone: Blood monocytes/100 leukocyt eson 08-22-2021 Monocytes/100 WBC (Bld) 4.8 % 0-10 [facility] Work Phone: Blood platelet mean volumeon 08-22-2021 Platelet mean volume (Bld) [Entitic vol] 9.8 fL 6.2-12.0 [facility] Work Phone: [phone] Determination of erythrocyte mean corpuscular volume (MCV)on 08-22-2021 MCV (RBC) [Entitic vol] 98.5 fL 81-99 [facility] Work Phone: Hematocrit Auto (Bld) [Volum e fraction]on 08-22-2021 Hematocrit (Bld) [Volume fraction] 46.6 % 37-47 [facility] Work Phone: Ketones Test strip Ql (U)on 08-22-2021 Ketones Ql (U) 5 mg/dl Negative [facility] Work Phone: Laboratory - Chemistry and C hemistry - challengeon 08-22-2021 ALP [Catalytic activity/Vol] 102 U/L 45-117 [facility] Work Phone: ALT [Catalytic activity/Vol] 108 U/L 13-56 [facility] Work Phone: CO2 [Moles/Vol] 28.0 mmol/L 21.0-32.0 [facility] Work Phone: Globulin (S) [Mass/Vol] 3.9 g/dL 2.2-4.2 [facility] Work Phone: Lipase [Catalytic activity/Vol] 5000 U/L 73-393 [facility] Work Phone: Urea nitrogen/Creatinine [Mass ratio] 12.4 mg/mg 10-20 [facility] Work Phone: Laboratory - Hematology and Cell countson 08-22-2021 Erythrocyte distribution width (RBC) [Entitic vol] 46.8 fL 35.1-43.9 [facility] Work Phone: Erythrocyte distribution width (RBC) [Ratio] 12.8 % 11.6-14.6 [facility] Work Phone: Immature granulocytes/100 WBC (Bld) 0.500 % 0.0-0.9 [facility] Work Phone: Comment on above: IG% - Immature Granu locytes (promyelocytes, myelocytes and metamyelocytes) > 1% indicates that a LEFT SHIFT is Present. MCH (RBC) [Entitic mass] 34.5 pg 27.0-32.0 [facility] Work Phone: Nucleated RBC/100 WBC (Bld) [Ratio] 0 % 0-5 [facility] Work Phone: MCHC Auto (RBC) [Mass/Vol]on 08-22-2021 MCHC (RBC) [Mass/Vol] 35.0 g/dL 32-36 [facility] Work Phone: Mucus LM Ql (Urine sed)on Mucus Ql (Urine sed) RARE /hpf [facility] Work Phone: Nitrite Test strip Ql (U)on 08-22-2021 Nitrite Ql (U) Negative Negative [facility] Work Phone: No Panel Informationon 08-22 Estimated Creatinine Clearance Calc 86.69 ml/min [facility] Work Phone: Estimated GFR (MDRD) Amer 113 mL/min >60 [facility] Work Phone: Comment on above: GFR Calc Estimated GFR (MDRD) Non-Af Amer 93 mL/min >60 [facility] Work Phone: Comment on above: Non- GFR Calc Platelets bldon 08-22-2021 Platelets (Bld) [#/Vol] 381 10*3/uL 150-450 [facility] Work Phone: Protein Test strip Ql (U)on 08-22-2021 Protein Ql (U) 100 mg/dl Negative [facility] Work Phone: Serum or plasma albumin emma urement (mass/volume)on 08-22-2021 Albumin [Mass/Vol] 3.9 g/dL 3.2-5.0 [facility] Work Phone: Serum or plasma albumin/glob ulin mass ratioon 08-22-2021 Albumin/Globulin [Mass ratio] 1.0 {ratio} 0.9-2.4 [facility] Work Phone: Serum or plasma calcium emma urement (mass/volume)on 08-22-2021 Calcium [Mass/Vol] 9.5 mg/dL 8.5-10.1 [facility] Work Phone: Serum or plasma creatinine m easurement (mass/volume)on 08-22-2021 Creatinine [Mass/Vol] 0.73 mg/dL 0.55-1.02 [facility] Work Phone: Comment on above: The validity of the calculated GFR & GFRAA in patients over 70 years has not been determined. Clinical correlation is essential. Serum or plasma urea nitroge n measurement (mass/volume)on 08-22-2021 Urea nitrogen [Mass/Vol] 9 mg/dL 7-18 [facility] Work Phone: Squamous epithelial cells de tection in urine sediment by light microscopyon 08-22-2021 Epithelial cells.squamous LM Ql (Urine sed) 5-10 SEEN /hpf 5-10 [facility] Work Phone: Thin prep Papanicolaou smear with manual screeningon 08-22-2021 Thin prep Papanicolaou smear with manual screening 124 U/L 15-37 [facility] Work Phone: Thin prep Papanicolaou smear with manual screening 9 5-15 [facility] Work Phone: Urine blood detectionon 08-04 0 RBC Ql (U) 25 /ul Negative [facility] Work Phone: RBC Ql (U) 0-5 SEEN /hpf 0-5 [facility] Work Phone: Urine clarityon 08-22-2021 Clarity (U) Cloudy Clear [facility] Work Phone: Urine color determinationon 08-22-2021 Color (U) Yellow Yellow [facility] Work Phone: Urine glucose detectionon Glucose Ql (U) Normal mg/dl Normal [facility] Work Phone: Urine leukocyte esterase det ection by dipstickon 08-22-2021 Leukocyte esterase Test strip Ql (U) 25 /ul Negative [facility] Work Phone: Urine pHon 08-22-2021 pH (U) 6.0 [pH] 5.0 - 8.0 [facility] Work Phone: Urine sediment bacteria coun t by microscopy (number/high power field)on 08-22-2021 Bacteria LM.HPF (Urine sed) [#/Area] 4 /[HPF] None Seen [facility] Work Phone: Urine specific gravity measu rementon 08-22-2021 Specific gravity (U) [Rel density] 1.025 1.002-1.03 0 [facility] Work Phone: Urobilinogen Auto test strip Ql (U)on 08-22-2021 Urobilinogen Ql (U) 1 mg/dl Normal [facility] Work Phone: .Auto Diffon 03-08-2021 Basophil, Absolute 0.00 10 3/mcL Normal 0.00-0.19 [facility] ([place]) Comment on above: Performed By: #### C BC, ADIFF, ANEU, LIPID, CMP #### [address] [address] #### GFR #### [address] [address] Basophils/100 WBC (Bld) 0.2 % Normal 0.0-2.5 [facility] ([place]) Comment on above: Performed By: #### C BC, ADIFF, ANEU, LIPID, CMP #### [address] [address] #### GFR #### [address] [address] Eosinophil, Absolute 0.30 10 3/mcL Normal 0.00-0.40 [facility] ([place]) Comment on above: Performed By: #### C BC, ADIFF, ANEU, LIPID, CMP #### [place] [address] #### GFR #### [address] [address] Eosinophils/100 WBC (Bld) 3.5 % Normal 0.0-7.0 [facility] ([place]) Comment on above: Performed By: #### C BC, ADIFF, ANEU, LIPID, CMP #### [address] [address] #### GFR #### [address] [address] Lymphocyte, Absolute 1.00 10 3/mcL Normal 0.77-3.85 [facility] ([place]) Comment on above: Performed By: #### C BC, ADIFF, ANEU, LIPID, CMP #### [place] [address] #### GFR #### [address] [address] Lymphocytes/100 WBC (Bld) 11.7 % Normal 10.0-50.0 [facility] ([place]) Comment on above: Performed By: #### C BC, ADIFF, ANEU, LIPID, CMP #### [place] [address] #### GFR #### [address] [address] Monocyte, Absolute 0.60 10 3/mcL Normal 0.15-1.00 [facility] ([place] Comment on above: Performed By: #### C BC, ADIFF, ANEU, LIPID, CMP #### [place] [address] #### GFR #### [address] [address] Monocytes/100 WBC (Bld) 7.6 % Normal 1.7-13.0 [facility] ([place] Comment on above: Performed By: #### C BC, ADIFF, ANEU, LIPID, CMP #### [place] [address] #### GFR #### [address] [address] Neutrophils/100 WBC (Bld) 77.0 % Normal 37.0-80.0 [facility] ([place] Comment on above: Performed By: #### C BC, ADIFF, ANEU, LIPID, CMP #### [place] [address] #### GFR #### [address] [address] .GFRon 03-08-2021 GFR Non- 117 ml/min/1.73sqm Normal [facility] ([place]) Comment on above: Result Comment: GFR Population mean for , Non- Americans Ages 20-29 = 116 mL/min/1.73 sq.m. Ages 30-39 = 107 mL/min/1.73 sq.m. Ages 40-49 = 99 mL/min/1.73 sq.m. Ages 50-59 = 93 mL/min/1.73 sq.m. Ages 60-69 = 85 mL/min/1.73 sq.m. Ages 70+ = 75 mL/min/1.73 sq.m. Chronic Kidney Disease: Less than 60 mL/min/1.73 square meters End Stage Renal Disease: Less than 15 mL/min/1.73 square meters Performed By: #### C BC, ADIFF, ANEU, LIPID, CMP #### [address] [address] #### GFR #### [address] [address] GFR 142 ml/min/1.73sqm [facility], 1928–[facility] ([place]) Comment on above: Result Comment: GFR Population mean for , Non- Americans Ages 20-29 = 116 mL/min/1.73 sq.m. Ages 30-39 = 107 mL/min/1.73 sq.m. Ages 40-49 = 99 mL/min/1.73 sq.m. Ages 50-59 = 93 mL/min/1.73 sq.m. Ages 60-69 = 85 mL/min/1.73 sq.m. Ages 70+ = 75 mL/min/1.73 sq.m. Chronic Kidney Disease: Less than 60 mL/min/1.73 square meters End Stage Renal Disease: Less than 15 mL/min/1.73 square meters Performed By: #### C BC, ADIFF, ANEU, LIPID, CMP #### [address] [address] #### GFR #### [address] [address] .NEUABSon 03-08-2021 Neutrophil, Absolute 6.30 10 3/mcL High 2.85-6.16 [facility] ([place]) Comment on above: Performed By: #### C BC, ADIFF, ANEU, LIPID, CMP #### [place] [address] #### GFR #### [place] [address] CBCon 03-08-2021 Erythrocyte distribution width (RBC) [Ratio] 13.9 % Normal 11.5-14.5 [facility] ([place]) Comment on above: Performed By: #### C BC, ADIFF, ANEU, LIPID, CMP #### [place] [address] #### GFR #### [place] [address] Hematocrit (Bld) [Volume fraction] 37.5 % Normal 37.0-47.0 [facility] ([place] Comment on above: Performed By: #### C BC, ADIFF, ANEU, LIPID, CMP #### [place] [address] #### GFR #### [place] [address] Hgb 13.1 G/dL Normal 12.0-16.0 [facility] ([place] Comment on above: Performed By: #### C BC, ADIFF, ANEU, LIPID, CMP #### [place] [address] #### GFR #### [place] [address] MCH (RBC) [Entitic mass] 35.5 pg High 27.0-31.2 [facility] ([place] Comment on above: Performed By: #### C BC, ADIFF, ANEU, LIPID, CMP #### [place] [address] #### GFR #### [place] [address] MCHC 35.0 G/dL Normal 33.0-37.0 [facility] ([place] Comment on above: Performed By: #### C BC, ADIFF, ANEU, LIPID, CMP #### [place] [address] #### GFR #### [address] [address] MCV (RBC) [Entitic vol] 101.4 fL High 80.0-94.0 [facility] ([place]) Comment on above: Performed By: #### C BC, ADIFF, ANEU, LIPID, CMP #### [place] [address] #### GFR #### [place] [address] Platelet 171 10 3/mcL Normal 130-400 [facility] ([place]) Comment on above: Performed By: #### C BC, ADIFF, ANEU, LIPID, CMP #### [place] [address] #### GFR #### [place] [address] Platelet mean volume (Bld) [Entitic vol] 9.4 fL Normal 7.4-10.4 [facility] ([place] Comment on above: Performed By: #### C BC, ADIFF, ANEU, LIPID, CMP #### [place] [address] #### GFR #### [place] [address] RBC 3.69 10 6/mcL Low 4.20-5.40 [facility] ([place] Comment on above: Performed By: #### C BC, ADIFF, ANEU, LIPID, CMP #### [place] [address] #### GFR #### [place] [address] WBC 8.20 10 3/mcL Normal 4.60-10.80 [facility] ([place] Comment on above: Performed By: #### C BC, ADIFF, ANEU, LIPID, CMP #### [place] [address] #### GFR #### [place] [address] CMPon 03-08-2021 Albumin Level 2.6 G/dL Low 3.5-5.0 [facility] ([place] Comment on above: Performed By: #### C BC, ADIFF, ANEU, LIPID, CMP #### [place] [address] #### GFR #### [place] [address] Albumin/Globulin [Mass ratio] 0.8 {ratio} Low 1.1-2.5 [facility] ([place] Comment on above: Performed By: #### C BC, ADIFF, ANEU, LIPID, CMP #### [place] [address] #### GFR #### [place] [address] ALP [Catalytic activity/Vol] 115 U/L Normal 40-135 [facility] ([place] Comment on above: Performed By: #### C BC, ADIFF, ANEU, LIPID, CMP #### [place] [address] #### GFR #### [place] [address] ALT [Catalytic activity/Vol] 99 U/L High 14-59 [facility] ([place] Comment on above: Performed By: #### C BC, ADIFF, ANEU, LIPID, CMP #### [place] [address] #### GFR #### [place] [address] AST [Catalytic activity/Vol] 77 U/L High 10-40 [facility] ([place] Comment on above: Performed By: #### C BC, ADIFF, ANEU, LIPID, CMP #### [place] [address] #### GFR #### [place] [address] Bili Total 0.8 mg/dL Normal 0.2-1.0 [facility] ([place] Comment on above: Result Comment: Use of this assay is not recommended for patients undergoing treatment with eltrombopag due to the potential for falsely elevated results. Performed By: #### C BC, ADIFF, ANEU, LIPID, CMP #### [address] [address] #### GFR #### [address] [address] BUN/Creatinine Ratio 9 ratio Normal 7-27 [facility] ([place]) Comment on above: Performed By: #### C BC, ADIFF, ANEU, LIPID, CMP #### [address] [address] #### GFR #### [address] [address] Calcium [Mass/Vol] 7.9 mg/dL Low 8.4-10.2 [facility] ([place]) Comment on above: Performed By: #### C BC, ADIFF, ANEU, LIPID, CMP #### [place] [address] #### GFR #### [address] [address] Chloride [Moles/Vol] 102 mmol/L Normal 98-107 [facility] ([place]) Comment on above: Performed By: #### C BC, ADIFF, ANEU, LIPID, CMP #### [place] [address] #### GFR #### [address] [address] CO2 [Moles/Vol] 32 mmol/L High 22-29 [facility] ([place] Comment on above: Performed By: #### C BC, ADIFF, ANEU, LIPID, CMP #### [place] [address] #### GFR #### [address] [address] Creatinine [Mass/Vol] 0.57 mg/dL Normal 0.55-1.02 [facility] ([place]) Comment on above: Performed By: #### C BC, ADIFF, ANEU, LIPID, CMP #### [address] [address] #### GFR #### [address] [address] Electrolyte Balance 7.0 mEq/L Normal [facility] ([place]) Comment on above: Performed By: #### C BC, ADIFF, ANEU, LIPID, CMP #### [address] [address] #### GFR #### [address] [address] Globulin 3.2 G/dL Normal [facility] ([place]) Comment on above: Performed By: #### C BC, ADIFF, ANEU, LIPID, CMP #### [address] [address] #### GFR #### [address] [address] Glucose [Mass/Vol] 82 mg/dL Normal 70-105 [facility] ([place]) Comment on above: Performed By: #### C BC, ADIFF, ANEU, LIPID, CMP #### [place] [address] #### GFR #### [address] [address] Potassium [Moles/Vol] 3.1 mmol/L Low 3.5-5.1 [facility] ([place] Comment on above: Performed By: #### C BC, ADIFF, ANEU, LIPID, CMP #### [place] [address] #### GFR #### [address] [address] Sodium [Moles/Vol] 141 mmol/L Normal 136-145 [facility] ([place] Comment on above: Performed By: #### C BC, ADIFF, ANEU, LIPID, CMP #### [address] [address] #### GFR #### [place] [address] Total Protein 5.8 G/dL Low 6.4-8.2 [facility] ([place] Comment on above: Performed By: #### C BC, ADIFF, ANEU, LIPID, CMP #### [address] [address] #### GFR #### [address] [address] Urea nitrogen [Mass/Vol] 5 mg/dL Low 7-18 [facility] ([place] Comment on above: Performed By: #### C BC, ADIFF, ANEU, LIPID, CMP #### [address] [address] #### GFR #### [address] [address] MGon 03-08-2021 Magnesium [Mass/Vol] 1.5 mg/dL Low 1.8-2.4 [facility] ([place]) Comment on above: Performed By: #### C BC, ADIFF, ANEU, LIPID, CMP #### [address] [address] #### GFR #### [address] [address] .GFRon 03-07-2021 GFR 106 ml/min/1.73sqm Normal [facility] ([place] Comment on above: Result Comment: GFR Population mean for , Non- Americans Ages 20-29 = 116 mL/min/1.73 sq.m. Ages 30-39 = 107 mL/min/1.73 sq.m. Ages 40-49 = 99 mL/min/1.73 sq.m. Ages 50-59 = 93 mL/min/1.73 sq.m. Ages 60-69 = 85 mL/min/1.73 sq.m. Ages 70+ = 75 mL/min/1.73 sq.m. Chronic Kidney Disease: Less than 60 mL/min/1.73 square meters End Stage Renal Disease: Less than 15 mL/min/1.73 square meters Performed By: #### C MP #### [address] [address] #### GFR #### [address] [address] GFR Non- 88 ml/min/1.73sqm Normal [facility] ([place]) Comment on above: Result Comment: GFR Population mean for , Non- Americans Ages 20-29 = 116 mL/min/1.73 sq.m. Ages 30-39 = 107 mL/min/1.73 sq.m. Ages 40-49 = 99 mL/min/1.73 sq.m. Ages 50-59 = 93 mL/min/1.73 sq.m. Ages 60-69 = 85 mL/min/1.73 sq.m. Ages 70+ = 75 mL/min/1.73 sq.m. Chronic Kidney Disease: Less than 60 mL/min/1.73 square meters End Stage Renal Disease: Less than 15 mL/min/1.73 square meters Performed By: #### C MP #### [address] [address] #### GFR #### [address] [address] CMPon 03-07-2021 Albumin Level 2.7 G/dL Low 3.5-5.0 [facility] ([place]) Comment on above: Performed By: #### C MP #### [address] [address] #### GFR #### [address] [address] Albumin/Globulin [Mass ratio] 0.9 {ratio} Low 1.1-2.5 [facility] ([place] Comment on above: Performed By: #### C MP #### [address] [address] #### GFR #### [address] [address] ALP [Catalytic activity/Vol] 111 U/L Normal 40-135 [facility] ([place] Comment on above: Performed By: #### C MP #### [address] [address] #### GFR #### [address] [address] ALT [Catalytic activity/Vol] 124 U/L High 14-59 [facility] ([place] Comment on above: Performed By: #### C MP #### [address] [address] #### GFR #### [address] [address] AST [Catalytic activity/Vol] 101 U/L High 10-40 [facility] ([place] Comment on above: Performed By: #### C MP #### [address] [address] #### GFR #### [address] [address] Bili Total 0.8 mg/dL Normal 0.2-1.0 [facility] ([place] Comment on above: Result Comment: Use of this assay is not recommended for patients undergoing treatment with eltrombopag due to the potential for falsely elevated results. Performed By: #### C MP #### [place] [address] #### GFR #### [address] [address] BUN/Creatinine Ratio 12 ratio Normal 7-27 [facility] ([place]) Comment on above: Performed By: #### C MP #### [place] [address] #### GFR #### [address] [address] Calcium [Mass/Vol] 7.9 mg/dL Low 8.4-10.2 [facility] ([place]) Comment on above: Performed By: #### C MP #### [place] [address] #### GFR #### [place] [id number] Chloride [Moles/Vol] 102 mmol/L Normal 98-107 [facility] ([place] Comment on above: Performed By: #### C MP #### [place] [address] #### GFR #### [address] [address] CO2 [Moles/Vol] 34 mmol/L High 22-29 [facility] ([place] Comment on above: Performed By: #### C MP #### [address] [address] #### GFR #### [address] [address] Creatinine [Mass/Vol] 0.73 mg/dL Normal 0.55-1.02 [facility] ([place] Comment on above: Performed By: #### C MP #### [address] [address] #### GFR #### [address] [address] Electrolyte Balance 6.0 mEq/L Normal [facility] ([place]) Comment on above: Performed By: #### C MP #### [address] [address] #### GFR #### [address] [address] Globulin 3.1 G/dL Normal [facility] ([place] Comment on above: Performed By: #### C MP #### [address] [address] #### GFR #### [address] [address] Glucose [Mass/Vol] 84 mg/dL Normal 70-105 [facility] ([place]) Comment on above: Performed By: #### C MP #### [address] [address] #### GFR #### [address] [address] Potassium [Moles/Vol] 3.2 mmol/L Low 3.5-5.1 [facility] ([place] Comment on above: Performed By: #### C MP #### [address] [address] #### GFR #### [address] [address] Sodium [Moles/Vol] 142 mmol/L Normal 136-145 [facility] ([place] Comment on above: Performed By: #### C MP #### [address] [address] #### GFR #### [address] [address] Total Protein 5.8 G/dL Low 6.4-8.2 [facility] ([place] Comment on above: Performed By: #### C MP #### [address] [address] #### GFR #### [place] [address] Urea nitrogen [Mass/Vol] 9 mg/dL Normal 7-18 [facility] ([place] Comment on above: Performed By: #### C MP #### [place] [address] #### GFR #### [place] [address] XR CHEST 2 VIEWSon 1 XR CHEST 2 VIEWS ORIGINAL Two views of the chest HISTORY: Hypoxia COMPARISON: Previous day FINDINGS: Lung volumes are slightly low. There are mild streaky and hazy airspace opacities the left base. The lungs are otherwise clear. Pulmonary vasculature is unremarkable in appearance. The cardiac silhouette is within normal size limits. IMPRESSION: Decreased lung volumes increased left atelectasis. Interpreted by: Don Taylor MD Preliminary Report By: Don Taylor MD Electronically signed By Don Taylor MD Dictated Date: 03/07/2021 9:05:15 AM Prelim Date: 03/07/2021 9:06:06 AM Sign Date: 03/07/2021 9:06:06 AM Ordering Provider: JOSE Cuadra [facility] ([place]) .Auto Diffon 03-06-2021 Basophil, Absolute 0.00 10 3/mcL Normal 0.00-0.19 [facility] ([place]) Comment on above: Performed By: #### C BC, ADIFF, ANEU, LIPID, CMP #### [place] [id number] #### GFR #### [address] [address] Basophils/100 WBC (Bld) 0.4 % Normal 0.0-2.5 A [facility] ([place]) Comment on above: Performed By: #### C BC, ADIFF, ANEU, LIPID, CMP #### [address] [address] #### GFR #### [address] [address] Eosinophil, Absolute 0.10 10 3/mcL Normal 0.00-0.40 A [facility] ([place]) Comment on above: Performed By: #### C BC, ADIFF, ANEU, LIPID, CMP #### [place] [address] #### GFR #### [address] [address] Eosinophils/100 WBC (Bld) 1.7 % Normal 0.0-7.0 [facility] ([place]) Comment on above: Performed By: #### C BC, ADIFF, ANEU, LIPID, CMP #### [place] [address] #### GFR #### [address] [address] Lymphocyte, Absolute 1.50 10 3/mcL Normal 0.77-3.85 [facility] ([place]) Comment on above: Performed By: #### C BC, ADIFF, ANEU, LIPID, CMP #### [place] [address] #### GFR #### [address] [address] Lymphocytes/100 WBC (Bld) 20.4 % Normal 10.0-50.0 [facility] ([place]) Comment on above: Performed By: #### C BC, ADIFF, ANEU, LIPID, CMP #### [place] [address] #### GFR #### [address] [address] Monocyte, Absolute 0.30 10 3/mcL Normal 0.15-1.00 [facility] ([place] Comment on above: Performed By: #### C BC, ADIFF, ANEU, LIPID, CMP #### [address] [address] #### GFR #### [address] [address] Monocytes/100 WBC (Bld) 4.6 % Normal 1.7-13.0 [facility] ([place]) Comment on above: Performed By: #### C BC, ADIFF, ANEU, LIPID, CMP #### [place] [address] #### GFR #### [address] [address] Neutrophils/100 WBC (Bld) 72.9 % Normal 37.0-80.0 [facility] ([place] Comment on above: Performed By: #### C BC, ADIFF, ANEU, LIPID, CMP #### [place] [address] #### GFR #### [address] [address] Basophil, Absolute 0.00 10 3/mcL Normal 0.00-0.19 [facility] ([place] Comment on above: Performed By: #### C BC, ADIFF, ANEU, LIPID, CMP #### [place] [address] #### GFR #### [address] [address] Basophils/100 WBC (Bld) 0.5 % Normal 0.0-2.5 [facility] ([place]) Comment on above: Performed By: #### C BC, ADIFF, ANEU, LIPID, CMP #### [place] [address] #### GFR #### [address] [address] Eosinophil, Absolute 0.10 10 3/mcL Normal 0.00-0.40 [facility] ([place] Comment on above: Performed By: #### C BC, ADIFF, ANEU, LIPID, CMP #### [place] [address] #### GFR #### [address] [address] Eosinophils/100 WBC (Bld) 1.4 % Normal 0.0-7.0 [facility] ([place] Comment on above: Performed By: #### C BC, ADIFF, ANEU, LIPID, CMP #### [place] [address] #### GFR #### [address] [address] Lymphocyte, Absolute 1.40 10 3/mcL Normal 0.77-3.85 [facility] ([place]) Comment on above: Performed By: #### C BC, ADIFF, ANEU, LIPID, CMP #### [place] [address] #### GFR #### [address] [address] Lymphocytes/100 WBC (Bld) 17.9 % Normal 10.0-50.0 [facility] ([place] Comment on above: Performed By: #### C BC, ADIFF, ANEU, LIPID, CMP #### [place] [address] #### GFR #### [address] [address] Monocyte, Absolute 0.50 10 3/mcL Normal 0.15-1.00 [facility] ([place] Comment on above: Performed By: #### C BC, ADIFF, ANEU, LIPID, CMP #### [place] [address] #### GFR #### [address] [address] Monocytes/100 WBC (Bld) 7.1 % Normal 1.7-13.0 [facility] ([place]) Comment on above: Performed By: #### C BC, ADIFF, ANEU, LIPID, CMP #### [address] [address] #### GFR #### [address] [address] Neutrophils/100 WBC (Bld) 73.1 % Normal 37.0-80.0 [facility] ([place] Comment on above: Performed By: #### C BC, ADIFF, ANEU, LIPID, CMP #### [address] [address] #### GFR #### [address] [address] .GFRon 03-06-2021 GFR 93 ml/min/1.73sqm Normal [facility] ([place]) Comment on above: Result Comment: GFR Population mean for , Non- Americans Ages 20-29 = 116 mL/min/1.73 sq.m. Ages 30-39 = 107 mL/min/1.73 sq.m. Ages 40-49 = 99 mL/min/1.73 sq.m. Ages 50-59 = 93 mL/min/1.73 sq.m. Ages 60-69 = 85 mL/min/1.73 sq.m. Ages 70+ = 75 mL/min/1.73 sq.m. Chronic Kidney Disease: Less than 60 mL/min/1.73 square meters End Stage Renal Disease: Less than 15 mL/min/1.73 square meters Performed By: #### C BC, ADIFF, ANEU, LIPID, CMP #### [address] [address] #### GFR #### [address] [address] GFR Non- 77 ml/min/1.73sqm Normal [facility] ([place]) Comment on above: Result Comment: GFR Population mean for , Non- Americans Ages 20-29 = 116 mL/min/1.73 sq.m. Ages 30-39 = 107 mL/min/1.73 sq.m. Ages 40-49 = 99 mL/min/1.73 sq.m. Ages 50-59 = 93 mL/min/1.73 sq.m. Ages 60-69 = 85 mL/min/1.73 sq.m. Ages 70+ = 75 mL/min/1.73 sq.m. Chronic Kidney Disease: Less than 60 mL/min/1.73 square meters End Stage Renal Disease: Less than 15 mL/min/1.73 square meters Performed By: #### C BC, ADIFF, ANEU, LIPID, CMP #### [address] [address] #### GFR #### [address] [address] GFR 112 ml/min/1.73sqm Normal [facility] ([place]) Comment on above: Result Comment: GFR Population mean for , Non- Americans Ages 20-29 = 116 mL/min/1.73 sq.m. Ages 30-39 = 107 mL/min/1.73 sq.m. Ages 40-49 = 99 mL/min/1.73 sq.m. Ages 50-59 = 93 mL/min/1.73 sq.m. Ages 60-69 = 85 mL/min/1.73 sq.m. Ages 70+ = 75 mL/min/1.73 sq.m. Chronic Kidney Disease: Less than 60 mL/min/1.73 square meters End Stage Renal Disease: Less than 15 mL/min/1.73 square meters Performed By: #### C BC, ADIFF, ANEU, LIPID, CMP #### [address] [address] #### GFR #### [address] [address] GFR Non- 92 ml/min/1.73sqm Normal [facility] ([place] Comment on above: Result Comment: GFR Population mean for , Non- Americans Ages 20-29 = 116 mL/min/1.73 sq.m. Ages 30-39 = 107 mL/min/1.73 sq.m. Ages 40-49 = 99 mL/min/1.73 sq.m. Ages 50-59 = 93 mL/min/1.73 sq.m. Ages 60-69 = 85 mL/min/1.73 sq.m. Ages 70+ = 75 mL/min/1.73 sq.m. Chronic Kidney Disease: Less than 60 mL/min/1.73 square meters End Stage Renal Disease: Less than 15 mL/min/1.73 square meters Performed By: #### C BC, ADIFF, ANEU, LIPID, CMP #### [address] [address] #### GFR #### [place] [address] .NEUABSon 03-06-2021 Neutrophil, Absolute 5.40 10 3/mcL Normal 2.85-6.16 A [facility] ([place]) Comment on above: Performed By: #### C BC, ADIFF, ANEU, LIPID, CMP #### [place] [address] #### GFR #### [place] [address] Neutrophil, Absolute 5.60 10 3/mcL Normal 2.85-6.16 A [facility] ([place]) Comment on above: Performed By: #### C BC, ADIFF, ANEU, LIPID, CMP #### [place] [address] #### GFR #### [place] [address] .Urinalysis Microscopic (AO) on 03-06-2021 UA Bacteria 2+ /hpf Abnormal [facility] ([place]) Comment on above: Performed By: #### C BC, ADIFF, ANEU, LIPID, CMP #### [place] [address] #### GFR #### [place] [address] UA RBC None Seen Normal None Seen [facility] ([place]) Comment on above: Performed By: #### C BC, ADIFF, ANEU, LIPID, CMP #### [place] [address] #### GFR #### [place] [address] UA Squam Epithelial 5-10 Abnormal None Seen [facility] ([place]) Comment on above: Performed By: #### C BC, ADIFF, ANEU, LIPID, CMP #### [place] [address] #### GFR #### [place] [address] UA WBC 0-5 Abnormal None Seen [facility] ([place]) Comment on above: Performed By: #### C BC, ADIFF, ANEU, LIPID, CMP #### [place] [address] #### GFR #### [place] [address] CBCon 03-06-2021 Erythrocyte distribution width (RBC) [Ratio] 13.8 % Normal 11.5-14.5 [facility] ([place]) Comment on above: Performed By: #### C BC, ADIFF, ANEU, LIPID, CMP #### [place] [address] #### GFR #### [place] [address] Hematocrit (Bld) [Volume fraction] 41.5 % Normal 37.0-47.0 [facility] ([place]) Comment on above: Performed By: #### C BC, ADIFF, ANEU, LIPID, CMP #### [place] [address] #### GFR #### [place] [address] Hgb 14.4 G/dL Normal 12.0-16.0 [facility] ([place]) Comment on above: Performed By: #### C BC, ADIFF, ANEU, LIPID, CMP #### [place] [address] #### GFR #### [place] [address] MCH (RBC) [Entitic mass] 35.3 pg High 27.0-31.2 [facility] ([place]) Comment on above: Performed By: #### C BC, ADIFF, ANEU, LIPID, CMP #### [place] [address] #### GFR #### [place] [address] MCHC 34.7 G/dL Normal 33.0-37.0 [facility] ([place]) Comment on above: Performed By: #### C BC, ADIFF, ANEU, LIPID, CMP #### [place] [address] #### GFR #### [place] [address] MCV (RBC) [Entitic vol] 101.8 fL High 80.0-94.0 A [facility] ([place]) Comment on above: Performed By: #### C BC, ADIFF, ANEU, LIPID, CMP #### [place] [address] #### GFR #### [place] [address] Platelet 232 10 3/mcL Normal 130-400 [facility] ([place]) Comment on above: Performed By: #### C BC, ADIFF, ANEU, LIPID, CMP #### [place] [address] #### GFR #### [place] [address] Platelet mean volume (Bld) [Entitic vol] 9.0 fL Normal 7.4-10.4 [facility] ([place]) Comment on above: Performed By: #### C BC, ADIFF, ANEU, LIPID, CMP #### [place] [address] #### GFR #### [place] [address] RBC 4.08 10 6/mcL Low 4.20-5.40 [facility] ([place]) Comment on above: Performed By: #### C BC, ADIFF, ANEU, LIPID, CMP #### [place] [address] #### GFR #### [place] [address] WBC 7.40 10 3/mcL Normal 4.60-10.80 [facility] ([place]) Comment on above: Performed By: #### C BC, ADIFF, ANEU, LIPID, CMP #### [address] [address] #### GFR #### [place] [address] Erythrocyte distribution width (RBC) [Ratio] 13.9 % Normal 11.5-14.5 [facility] ([place]) Comment on above: Performed By: #### C BC, ADIFF, ANEU, LIPID, CMP #### [place] [address] #### GFR #### [place] [address] Hematocrit (Bld) [Volume fraction] 42.3 % Normal 37.0-47.0 [facility] ([place]) Comment on above: Performed By: #### C BC, ADIFF, ANEU, LIPID, CMP #### [place] [address] #### GFR #### [place] [address] Hgb 15.0 G/dL Normal 12.0-16.0 [facility] ([place]) Comment on above: Performed By: #### C BC, ADIFF, ANEU, LIPID, CMP #### [place] [address] #### GFR #### [place] [address] MCH (RBC) [Entitic mass] 35.5 pg High 27.0-31.2 [facility] ([place]) Comment on above: Performed By: #### C BC, ADIFF, ANEU, LIPID, CMP #### [place] [address] #### GFR #### [place] [address] MCHC 35.5 G/dL Normal 33.0-37.0 [facility] ([place]) Comment on above: Performed By: #### C BC, ADIFF, ANEU, LIPID, CMP #### [place] [address] #### GFR #### [place] [address] MCV (RBC) [Entitic vol] 100.0 fL High 80.0-94.0 A [facility] ([place]) Comment on above: Performed By: #### C BC, ADIFF, ANEU, LIPID, CMP #### [place] [address] #### GFR #### [place] [address] Platelet 250 10 3/mcL Normal 130-400 [facility] ([place]) Comment on above: Performed By: #### C BC, ADIFF, ANEU, LIPID, CMP #### [place] [address] #### GFR #### [place] [address] Platelet mean volume (Bld) [Entitic vol] 8.9 fL Normal 7.4-10.4 [facility] ([place]) Comment on above: Performed By: #### C BC, ADIFF, ANEU, LIPID, CMP #### [place] [address] #### GFR #### [place] [address] RBC 4.23 10 6/mcL Normal 4.20-5.40 [facility] ([place]) Comment on above: Performed By: #### C BC, ADIFF, ANEU, LIPID, CMP #### [place] [address] #### GFR #### [place] [address] WBC 7.60 10 3/mcL Normal 4.60-10.80 [facility] ([place]) Comment on above: Performed By: #### C BC, ADIFF, ANEU, LIPID, CMP #### [place] [address] #### GFR #### [address] [address] CMPon 03-06-2021 Albumin Level 3.3 G/dL Low 3.5-5.0 [facility] ([place]) Comment on above: Performed By: #### C BC, ADIFF, ANEU, LIPID, CMP #### [place] [address] #### GFR #### [place] [address] Albumin/Globulin [Mass ratio] 1.0 {ratio} Low 1.1-2.5 [facility] ([place]) Comment on above: Performed By: #### C BC, ADIFF, ANEU, LIPID, CMP #### [place] [address] #### GFR #### [place] [address] ALP [Catalytic activity/Vol] 128 U/L Normal 40-135 [facility] ([place]) Comment on above: Performed By: #### C BC, ADIFF, ANEU, LIPID, CMP #### [place] [address] #### GFR #### [place] [address] ALT [Catalytic activity/Vol] 198 U/L High 14-59 [facility] ([place]) Comment on above: Performed By: #### C BC, ADIFF, ANEU, LIPID, CMP #### [place] [address] #### GFR #### [place] [id number] AST [Catalytic activity/Vol] 208 U/L High 10-40 [facility] ([place]) Comment on above: Performed By: #### C BC, ADIFF, ANEU, LIPID, CMP #### [place] [address] #### GFR #### [place] [address] Bili Total 0.6 mg/dL Normal 0.2-1.0 [facility] ([place]) Comment on above: Result Comment: Use of this assay is not recommended for patients undergoing treatment with eltrombopag due to the potential for falsely elevated results. Performed By: #### C BC, ADIFF, ANEU, LIPID, CMP #### [address] [address] #### GFR #### [address] [address] BUN/Creatinine Ratio 9 ratio Normal 7-27 [facility] ([place]) Comment on above: Performed By: #### C BC, ADIFF, ANEU, LIPID, CMP #### [place] [address] #### GFR #### [address] [address] Calcium [Mass/Vol] 8.6 mg/dL Normal 8.4-10.2 [facility] ([place]) Comment on above: Performed By: #### C BC, ADIFF, ANEU, LIPID, CMP #### [address] [address] #### GFR #### [address] [address] Chloride [Moles/Vol] 102 mmol/L Normal 98-107 [facility] ([place]) Comment on above: Performed By: #### C BC, ADIFF, ANEU, LIPID, CMP #### [place] [address] #### GFR #### [address] [address] CO2 [Moles/Vol] 35 mmol/L High 22-29 [facility] ([place]) Comment on above: Performed By: #### C BC, ADIFF, ANEU, LIPID, CMP #### [place] [address] #### GFR #### [address] [address] Creatinine [Mass/Vol] 0.82 mg/dL Normal 0.55-1.02 [facility] ([place]) Comment on above: Performed By: #### C BC, ADIFF, ANEU, LIPID, CMP #### [address] [address] #### GFR #### [address] [address] Electrolyte Balance 6.0 mEq/L Normal [facility] ([place]) Comment on above: Performed By: #### C BC, ADIFF, ANEU, LIPID, CMP #### [address] [address] #### GFR #### [address] [address] Globulin 3.4 G/dL Normal [facility] ([place]) Comment on above: Performed By: #### C BC, ADIFF, ANEU, LIPID, CMP #### [address] [address] #### GFR #### [address] [address] Glucose [Mass/Vol] 91 mg/dL Normal 70-105 [facility] ([place]) Comment on above: Performed By: #### C BC, ADIFF, ANEU, LIPID, CMP #### [address] [address] #### GFR #### [address] [address] Potassium [Moles/Vol] 3.6 mmol/L Normal 3.5-5.1 [facility] ([place]) Comment on above: Performed By: #### C BC, ADIFF, ANEU, LIPID, CMP #### [address] [address] #### GFR #### [address] [address] Sodium [Moles/Vol] 143 mmol/L Normal 136-145 [facility] ([place]) Comment on above: Performed By: #### C BC, ADIFF, ANEU, LIPID, CMP #### [place] [address] #### GFR #### [address] [address] Total Protein 6.7 G/dL Normal 6.4-8.2 [facility] ([place]) Comment on above: Performed By: #### C BC, ADIFF, ANEU, LIPID, CMP #### [address] [address] #### GFR #### [address] [address] Urea nitrogen [Mass/Vol] 7 mg/dL Normal 7-18 [facility] ([place]) Comment on above: Performed By: #### C BC, ADIFF, ANEU, LIPID, CMP #### [address] [address] #### GFR #### [address] [address] Albumin Level 3.4 G/dL Low 3.5-5.0 [facility] ([place]) Comment on above: Performed By: #### C BC, ADIFF, ANEU, LIPID, CMP #### [address] [address] #### GFR #### [address] [address] Albumin/Globulin [Mass ratio] 0.9 {ratio} Low 1.1-2.5 [facility] ([place]) Comment on above: Performed By: #### C BC, ADIFF, ANEU, LIPID, CMP #### [address] [address] #### GFR #### [address] [address] ALP [Catalytic activity/Vol] 132 U/L Normal 40-135 [facility] ([place]) Comment on above: Performed By: #### C BC, ADIFF, ANEU, LIPID, CMP #### [address] [address] #### GFR #### [address] [address] ALT [Catalytic activity/Vol] 223 U/L High 14-59 [facility] ([place]) Comment on above: Performed By: #### C BC, ADIFF, ANEU, LIPID, CMP #### [place] [address] #### GFR #### [address] [address] AST [Catalytic activity/Vol] 274 U/L High 10-40 [facility] ([place]) Comment on above: Performed By: #### C BC, ADIFF, ANEU, LIPID, CMP #### [place] [address] #### GFR #### [address] [address] Bili Total 0.5 mg/dL Normal 0.2-1.0 [facility] ([place]) Comment on above: Result Comment: Use of this assay is not recommended for patients undergoing treatment with eltrombopag due to the potential for falsely elevated results. Performed By: #### C BC, ADIFF, ANEU, LIPID, CMP #### [place] [address] #### GFR #### [address] [address] BUN/Creatinine Ratio 11 ratio Normal 7-27 [facility] ([place]) Comment on above: Performed By: #### C BC, ADIFF, ANEU, LIPID, CMP #### [place] [address] #### GFR #### [address] [address] Calcium [Mass/Vol] 9.5 mg/dL Normal 8.4-10.2 [facility] ([place]) Comment on above: Performed By: #### C BC, ADIFF, ANEU, LIPID, CMP #### [place] [address] #### GFR #### [address] [address] Chloride [Moles/Vol] 98 mmol/L Normal 98-107 [facility] ([place]) Comment on above: Performed By: #### C BC, ADIFF, ANEU, LIPID, CMP #### [address] [address] #### GFR #### [address] [address] CO2 [Moles/Vol] 30 mmol/L High 22-29 [facility] ([place]) Comment on above: Performed By: #### C BC, ADIFF, ANEU, LIPID, CMP #### [address] [address] #### GFR #### [address] [address] Creatinine [Mass/Vol] 0.70 mg/dL Normal 0.55-1.02 [facility] ([place]) Comment on above: Performed By: #### C BC, ADIFF, ANEU, LIPID, CMP #### [address] [address] #### GFR #### [address] [address] Electrolyte Balance 13.0 mEq/L Normal [facility] ([place]) Comment on above: Performed By: #### C BC, ADIFF, ANEU, LIPID, CMP #### [address] [address] #### GFR #### [address] [address] Globulin 3.7 G/dL Normal [facility] ([place]) Comment on above: Performed By: #### C BC, ADIFF, ANEU, LIPID, CMP #### [address] [address] #### GFR #### [address] [address] Glucose [Mass/Vol] 112 mg/dL High 70-105 [facility] ([place]) Comment on above: Performed By: #### C BC, ADIFF, ANEU, LIPID, CMP #### [address] [address] #### GFR #### [address] [address] Potassium [Moles/Vol] 2.4 mmol/L Critically abnormal 3.5-5.1 [facility] ([place]) Comment on above: Performed By: #### C BC, ADIFF, ANEU, LIPID, CMP #### [address] [address] #### GFR #### [address] [address] Sodium [Moles/Vol] 141 mmol/L Normal 136-145 [facility] ([place]) Comment on above: Performed By: #### C BC, ADIFF, ANEU, LIPID, CMP #### [address] [address] #### GFR #### [address] [address] Total Protein 7.1 G/dL Normal 6.4-8.2 [facility] ([place]) Comment on above: Performed By: #### C BC, ADIFF, ANEU, LIPID, CMP #### [address] [address] #### GFR #### [address] [address] Urea nitrogen [Mass/Vol] 8 mg/dL Normal 7-18 [facility] ([place]) Comment on above: Performed By: #### C BC, ADIFF, ANEU, LIPID, CMP #### [address] [address] #### GFR #### [address] [address] [address] ABD/PELVIS W/ IV CONTRAST ONLYon 03-06-2021 CT ABD/PELVIS W/ IV CONTRAST ONLY ORIGINAL EXAMINATION: CT OF THE ABDOMEN AND PELVIS WITH CONTRAST 03/06/2021 1:55 am TECHNIQUE: CT of the abdomen and pelvis was performed with the administration of intravenous contrast. Multiplanar reformatted images are provided for review. Dose modulation, iterative reconstruction, and/or weight based adjustment of the mA/kV was utilized to reduce the radiation dose to as low as reasonably achievable. COMPARISON: None. HISTORY: ORDERING SYSTEM PROVIDED HISTORY: Reason for Exam: pain FINDINGS: The included lung bases are clear. The included heart chambers are normal in size. There is no pleural or pericardial fluid. There is diffuse decrease attenuation noted throughout the liver. The gallbladder and spleen are normal in appearance. The adrenals are unremarkable. There is haziness surrounding the pancreatic head and a small amount of fluid extending along the 2nd portion of the duodenum inferiorly. There is also small amount of fluid extending superiorly adjacent to the medial margin of the spleen, and inferiorly along the left aspect of the mesenteric root. No fluid collections are evident. No nonenhancing areas of the pancreatic parenchyma are evident. The kidneys enhance symmetrically. No pelvicaliectasis. There are bilateral higher than simple fluid density cysts, likely proteinaceous or hemorrhagic. There is some anti dependent air within the urinary bladder. The uterus is within normal limits in appearance stable ablation clips are noted. No adnexal masses are present. The ovaries are age appropriate in appearance. The large and small bowel are within normal limits in appearance. There is a moderate amount of colonic stool. Normal appendix. The abdominal aorta is normal in caliber. No pathologically enlarged abdominal or pelvic lymph nodes are evident. No acute osseous abnormality. IMPRESSION: Findings compatible with acute interstitial edematous pancreatitis. No necrosis or peripancreatic fluid collections are evident. There is a small amount of haziness around the 2nd portion of the duodenum which may reflect reactive duodenitis. Hepatic steatosis. There is some air within the urinary bladder, correlation for history of recent instrumentation suggested. Moderate colonic stool. I have personally reviewed the images of this examination and agree with the resident's findings and interpretation. Interpreted by: Devan Patrick MD Preliminary Report By: Carlos Christianson Electronically signed By Devan Patrick MD Dictated Date: 03/06/2021 2:04:06 AM Prelim Date: 03/06/2021 2:13:32 AM Sign Date: 03/06/2021 4:01:00 AM Ordering Provider: SHARLA BARKLEY Normal [facility] ([place]) LIPon 03-06-2021 Lipase Level 1885 U/L Normal 73-393 [facility]) Comment on above: Performed By: #### C BC, ADIFF, ANEU, LIPID, CMP #### [place] [id number] [place], [place] [address] #### GFR #### [address] [address] LIPIDon 03-06-2021 Cholesterol [Mass/Vol] 230 mg/dL High 0-200 [facility] ([place]) Comment on above: Result Comment: Chol esterol Reference Interval: Less than 200 Desirable 200-239 Borderline high risk 240 and above High risk Performed By: #### C BC, ADIFF, ANEU, LIPID, CMP #### [address] [address] #### GFR #### [address] [address] Cholesterol in HDL [Mass/Vol] 78 mg/dL High 40-60 [facility] ([place]) Comment on above: Performed By: #### C BC, ADIFF, ANEU, LIPID, CMP #### [place] [address] #### GFR #### [address] [address] Cholesterol in LDL [Mass/Vol] 139 mg/dL High 0-130 [facility] ([place]) Comment on above: Performed By: #### C BC, ADIFF, ANEU, LIPID, CMP #### [address] [address] #### GFR #### [address] [address] Triglyceride [Mass/Vol] 67 mg/dL Normal 0-150 A [facility] ([place]) Comment on above: Result Comment: Trig lyceride Reference Interval: Less than 150 Normal 150-199 Borderline high risk 200-499 High risk 500 or higher Very high risk Performed By: #### C BC, ADIFF, ANEU, LIPID, CMP #### [address] [address] #### GFR #### [address] [address] PREGUon 03-06-2021 HCG ( test) Ql (U) Negative Normal [facility] ([place]) Comment on above: Performed By: #### P REGU #### [place] [address] test (u) int Not detected Invalid Interpretation Code [facility] ([place]) Comment on above: Performed By: #### P REGU #### [address] [address] TROPHSon 03-06-2021 Troponin I High Sensitivity 7.4 ng/L Normal 0.0-51.4 [facility] ([place]) Comment on above: Performed By: #### C BC, ADIFF, ANEU, LIPID, CMP #### [place] [address] #### GFR #### [place] [address] UAon 03-06-2021 Color (U) Yellow Normal [facility] ([place]) Comment on above: Performed By: #### C BC, ADIFF, ANEU, LIPID, CMP #### [place] [address] #### GFR #### [place] [address] Glucose (U) [Mass/Vol] Negative Normal Negative [facility] ([place]) Comment on above: Performed By: #### C BC, ADIFF, ANEU, LIPID, CMP #### [place] [address] #### GFR #### [place] [address] Ketones Ql (U) Trace Abnormal Negative [facility] ([place]) Comment on above: Performed By: #### C BC, ADIFF, ANEU, LIPID, CMP #### [place] [address] #### GFR #### [place] [address] UA Appear Slightly Cloudy Abnormal Clear [facility] ([place]) Comment on above: Performed By: #### C BC, ADIFF, ANEU, LIPID, CMP #### [place] [address] #### GFR #### [place] [address] UA Bili Small Abnormal Negative [facility] ([place]) Comment on above: Performed By: #### C BC, ADIFF, ANEU, LIPID, CMP #### [address] [address] #### GFR #### [address] [address] UA Blood Negative Normal Negative [facility] ([place]) Comment on above: Performed By: #### C BC, ADIFF, ANEU, LIPID, CMP #### [place] [address] #### GFR #### [place] [address] UA Leuk Est Negative Normal Negative [facility] ([place]) Comment on above: Performed By: #### C BC, ADIFF, ANEU, LIPID, CMP #### [place] [address] #### GFR #### [place] [address] UA Nitrite Negative Normal Negative [facility] ([place]) Comment on above: Performed By: #### C BC, ADIFF, ANEU, LIPID, CMP #### [place] [address] #### GFR #### [place] [address] UA pH 6.0 Normal 5.0 - 8.0 [facility] ([place]) Comment on above: Performed By: #### C BC, ADIFF, ANEU, LIPID, CMP #### [place] [address] #### GFR #### [place] [address] UA Protein 100 mg/dL Abnormal Negative [facility] ([place]) Comment on above: Performed By: #### C BC, ADIFF, ANEU, LIPID, CMP #### [place] [address] #### GFR #### [place] [address] UA Spec Grav >=1.030 Abnormal 1.015-1.02 5 [facility] ([place]) Comment on above: Performed By: #### C BC, ADIFF, ANEU, LIPID, CMP #### [address] [address] #### GFR #### [address] [address] UA Specimen Type Clean Catch [facility] ([place]) Comment on above: Performed By: #### C BC, ADIFF, ANEU, LIPID, CMP #### [address] [address] #### GFR #### [place] [address] UA Urobilinogen 1.0 E.U./dL Normal 0.2-1.0 [facility]) Comment on above: Performed By: #### C BC, ADIFF, ANEU, LIPID, CMP #### [address] [address] #### GFR #### [place] [address] XR CHEST 1 VIEWon 03-06-2021 XR CHEST 1 VIEW ORIGINAL EXAMINATION: ONE XRAY VIEW OF THE CHEST 03/06/2021 1:51 am COMPARISON: None. HISTORY: ORDERING SYSTEM PROVIDED HISTORY: Reason for Exam: pains FINDINGS: The cardiac silhouette is within normal limits. There is no significant pulmonary vascular congestion. There is no focal consolidation, pleural effusion, or pneumothorax. There are no acute osseous abnormalities. No subdiaphragmatic free air. IMPRESSION: No acute radiographic findings. I have personally reviewed the images of this examination and agree with the resident's findings and interpretation. Interpreted by: Devan Patrick MD Preliminary Report By: Carlos Christianson Electronically signed By Devan Patrick MD Dictated Date: 03/06/2021 1:56:53 AM Prelim Date: 03/06/2021 1:57:21 AM Sign Date: 03/06/2021 3:50:38 AM Ordering Provider: SHARLA BARKLEY [facility] ([place]) Vital Signs Date Time Vital Sign Value Performing Clinician Fatmatai nga 02-06-2025 21:23-0400 Body temperature 98.7 [degF] No Primary Care Physician [facility] 02-06-2025 21:23-0400 Diastolic blood pressure 83 mm[Hg] No Primary Care Physician [facility] 02-06-2025 21:23-0400 Heart rate 79 /min No Primary Care Physician [facility] 02-06-2025 21:23-0400 Respiratory rate 16 /min No Primary Care Physician [facility] 02-06-2025 21:23-0400 SaO2% (BldA) [Mass fraction] 96 % No Primary Care Physician [facility] 02-06-2025 21:23-0400 Systolic blood pressure 122 mm[Hg] No Primary Care Physician [facility] 02-06-2025 16:59-0400 Body height 162.56 cm No Primary Care Physician [facility] 02-06-2025 16:59-0400 Body mass index (BMI) [Ratio] 22.8 kg/m2 No Primary Care Physician [facility] 02-06-2025 16:59-0400 Body weight 60.41 kg No Primary Care Physician [facility] 01-15-2025 13:59-0400 Body height 162.6 cm Roel Mosley MD Work Phone: [facility] 01-15-2025 13:59-0400 Body mass index (BMI) [Ratio] 23.17 kg/m2 Roel Mosley MD Work Phone: [facility] 01-15-2025 13:59-0400 Body weight 61.24 kg Roel Mosley MD Work Phone: [facility] 01-15-2025 13:59-0400 Diastolic blood pressure 62 mm[Hg] Roel Mosley MD Work Phone: [facility] 01-15-2025 13:59-0400 Heart rate 75 /min Roel Mosley MD Work Phone: [facility] 01-15-2025 13:59-0400 SaO2% (BldA) [Mass fraction] 97 % Roel Mosley MD Work Phone: [facility] 01-15-2025 13:59-0400 Systolic blood pressure 100 mm[Hg] Roel Mosley MD Work Phone: [facility] 10-10-2024 09:45-0400 Diastolic blood pressure 81 mm[Hg] Roel Mosley MD Work Phone: [facility] 10-10-2024 09:45-0400 Heart rate 73 /min Roel Moslye MD Work Phone: [facility] 10-10-2024 09:45-0400 Respiratory rate 14 /min Roel Mosley MD Work Phone: [facility] 10-10-2024 09:45-0400 SaO2% (BldA) [Mass fraction] 98 % Roel Mosley MD Work Phone: [facility] 10-10-2024 09:45-0400 Systolic blood pressure 121 mm[Hg] Roel Mosley MD Work Phone: [facility] 10-10-2024 09:20-0400 Body temperature 97.2 [degF] Roel Mosley MD Work Phone: [facility] 10-10-2024 07:32-0400 Body height 162.6 cm Roel Mosley MD Work Phone: [facility] 10-10-2024 07:32-0400 Body mass index (BMI) [Ratio] 23.5 kg/m2 Roel Mosley MD Work Phone: [facility] 10-10-2024 07:32-0400 Body weight 62.14 kg Roel Mosley MD Work Phone: [facility] 10-08-2024 11:27-0400 Body height 162.6 cm Pst 1 [facility] 10-08-2024 11:27-0400 Body mass index (BMI) [Ratio] 23.52 kg/m2 Pst 1 [facility] 10-08-2024 11:27-0400 Body temperature 97.9 [degF] Pst 1 [facility] 10-08-2024 11:27-0400 Body weight 62.14 kg Pst 1 [facility] 10-08-2024 11:27-0400 Diastolic blood pressure 73 mm[Hg] Pst 1 [facility] 10-08-2024 11:27-0400 Heart rate 76 /min Pst 1 [facility] 10-08-2024 11:27-0400 Respiratory rate 16 /min Pst 1 [facility] 10-08-2024 11:27-0400 SaO2% (BldA) [Mass fraction] 99 % Pst 1 [facility] 10-08-2024 11:27-0400 Systolic blood pressure 108 mm[Hg] Pst 1 [facility] 07-18-2024 10:15-0500 Diastolic blood pressure 87 mm[Hg] Roel Mosley MD Work Phone: [facility] 07-18-2024 10:15-0500 Heart rate 78 /min Roel Mosley MD Work Phone: [facility] 07-18-2024 10:15-0500 Respiratory rate 14 /min Roel Mosley MD Work Phone: [facility] 07-18-2024 10:15-0500 SaO2% (BldA) [Mass fraction] 98 % Roel Mosley MD Work Phone: [facility] 07-18-2024 10:15-0500 Systolic blood pressure 127 mm[Hg] Roel Mosley MD Work Phone: [facility] 07-18-2024 09:23-0500 Body temperature 97.9 [degF] Roel Mosley MD Work Phone: [facility] 07-18-2024 07:23-0500 Body height 162.6 cm Roel Mosley MD Work Phone: [facility] 07-18-2024 07:23-0500 Body mass index (BMI) [Ratio] 22.82 kg/m2 Roel Mosley MD Work Phone: [facility] 07-18-2024 07:23-0500 Body weight 60.33 kg Roel Mosley MD Work Phone: [facility] 07-03-2024 14:26-0500 Body height 162.6 cm Roel Mosley MD Work Phone: [facility] 07-03-2024 14:26-0500 Body mass index (BMI) [Ratio] 22.83 kg/m2 Roel Mosley MD Work Phone: [facility] 07-03-2024 14:26-0500 Body weight 60.33 kg Roel Mosley MD Work Phone: [facility] 07-03-2024 14:26-0500 Diastolic blood pressure 68 mm[Hg] Roel Mosley MD Work Phone: [facility] 07-03-2024 14:26-0500 Heart rate 90 /min Roel Mosley MD Work Phone: [facility] 07-03-2024 14:26-0500 Systolic blood pressure 104 mm[Hg] Roel Mosley MD Work Phone: [facility] 05-21-2024 10:59-0500 Diastolic blood pressure 98 mm[Hg] Roel Mosley MD Work Phone: [facility] 05-21-2024 10:59-0500 Heart rate 73 /min Roel Mosley MD Work Phone: [facility] 05-21-2024 10:59-0500 Respiratory rate 15 /min Roel Mosley MD Work Phone: [facility] 05-21-2024 10:59-0500 SaO2% (BldA) [Mass fraction] 100 % Roel Mosley MD Work Phone: [facility] 05-21-2024 10:59-0500 Systolic blood pressure 123 mm[Hg] Roel Mosley MD Work Phone: [facility] 05-21-2024 10:29-0500 Body temperature 97.3 [degF] Roel Mosley MD Work Phone: [facility] 05-21-2024 08:01-0500 Body height 162.6 cm Roel Mosley MD Work Phone: [facility] 05-21-2024 08:01-0500 Body mass index (BMI) [Ratio] 22.32 kg/m2 Roel Mosley MD Work Phone: [facility] 05-21-2024 08:01-0500 Body weight 59 kg Roel Mosley MD Work Phone: [facility] 04-09-2024 11:42-0500 Diastolic blood pressure 93 mm[Hg] Roel Mosley MD Work Phone: [facility] 04-09-2024 11:42-0500 Heart rate 78 /min Roel Mosley MD Work Phone: [facility] 04-09-2024 11:42-0500 Respiratory rate 15 /min Roel Mosley MD Work Phone: [facility] 04-09-2024 11:42-0500 SaO2% (BldA) [Mass fraction] 98 % Roel Mosley MD Work Phone: [facility] 04-09-2024 11:42-0500 Systolic blood pressure 133 mm[Hg] Roel Mosley MD Work Phone: [facility] 04-09-2024 10:27-0500 Body temperature 97.5 [degF] Roel Mosley MD Work Phone: [facility] 04-09-2024 07:47-0500 Body height 162.6 cm Roel Mosley MD Work Phone: [facility] 04-09-2024 07:47-0500 Body mass index (BMI) [Ratio] 22.31 kg/m2 Roel Mosley MD Work Phone: [facility] 04-09-2024 07:47-0500 Body weight 58.97 kg Roel Mosley MD Work Phone: [facility] 12-05-2023 10:52-0400 Diastolic blood pressure 84 mm[Hg] Carlos Davis MD Work Phone: [facility] 12-05-2023 10:52-0400 Heart rate 70 /min Carlos Davis MD Work Phone: [facility] 12-05-2023 10:52-0400 Respiratory rate 18 /min Carlos Davis MD Work Phone: [facility] 12-05-2023 10:52-0400 SaO2% (BldA) [Mass fraction] 98 % Carlos Davis MD Work Phone: [facility] 12-05-2023 10:52-0400 Systolic blood pressure 121 mm[Hg] Carlos Davis MD Work Phone: [facility] 12-05-2023 10:15-0400 Body temperature 98.1 [degF] Carlos Davis MD Work Phone: [facility] 11-22-2023 09:41-0400 Body height 162.6 cm Evelia Mak MD Work Phone: [facility] 11-22-2023 09:41-0400 Body mass index (BMI) [Ratio] 22.31 kg/m2 Evelia Mak MD Work Phone: [facility] 11-22-2023 09:41-0400 Body weight 58.97 kg Evelia Mak MD Work Phone: [facility] 09-20-2023 14:17-0400 Body height 162.6 cm Evelia Mak MD Work Phone: [facility] 09-20-2023 14:17-0400 Body mass index (BMI) [Ratio] 22.66 kg/m2 Evelia Mak MD Work Phone: [facility] 09-20-2023 14:17-0400 Body weight 59.88 kg Evelia Mak MD Work Phone: [facility] 09-20-2023 14:17-0400 Diastolic blood pressure 74 mm[Hg] Evelia Mak MD Work Phone: [facility] 09-20-2023 14:17-0400 Heart rate 74 /min Evelia Mak MD Work Phone: [facility] 09-20-2023 14:17-0400 SaO2% (BldA) [Mass fraction] 98 % Evelia Mak MD Work Phone: [facility] 09-20-2023 14:17-0400 Systolic blood pressure 112 mm[Hg] Evelia Mak MD Work Phone: [facility] 09-13-2023 22:53-0400 Body temperature 98.4 [degF] No Primary Care Physician [facility] 09-13-2023 22:53-0400 Diastolic blood pressure 60 mm[Hg] No Primary Care Physician [facility] 09-13-2023 22:53-0400 Heart rate 89 /min No Primary Care Physician [facility] 09-13-2023 22:53-0400 Respiratory rate 16 /min No Primary Care Physician [facility] 09-13-2023 22:53-0400 SaO2% (BldA) [Mass fraction] 97 % No Primary Care Physician [facility] 09-13-2023 22:53-0400 Systolic blood pressure 122 mm[Hg] No Primary Care Physician [facility] 09-13-2023 17:32-0400 Body height 162.56 cm No Primary Care Physician [facility] 09-13-2023 17:32-0400 Body mass index (BMI) [Ratio] 23.1 kg/m2 No Primary Care Physician [facility] 09-13-2023 17:32-0400 Body weight 61.2 kg No Primary Care Physician [facility] 08-10-2023 23:56-0500 Body temperature 98.6 [degF] No Primary Care Physician [facility] 08-10-2023 23:56-0500 Diastolic blood pressure 75 mm[Hg] No Primary Care Physician [facility] 08-10-2023 23:56-0500 Heart rate 78 /min No Primary Care Physician [facility] 08-10-2023 23:56-0500 Respiratory rate 12 /min No Primary Care Physician [facility] 08-10-2023 23:56-0500 SaO2% (BldA) [Mass fraction] 100 % No Primary Care Physician [facility] 08-10-2023 23:56-0500 Systolic blood pressure 130 mm[Hg] No Primary Care Physician [facility] 08-10-2023 17:32-0500 Body height 162.56 cm No Primary Care Physician [facility] 08-10-2023 17:32-0500 Body mass index (BMI) [Ratio] 23.1 kg/m2 No Primary Care Physician [facility] 08-10-2023 17:32-0500 Body weight 61.23 kg No Primary Care Physician [facility] 08-10-2023 11:25-0500 Diastolic blood pressure 82 mm[Hg] Carlos Davis MD Work Phone: [facility] 08-10-2023 11:25-0500 Heart rate 77 /min Carlos Davis MD Work Phone: [facility] 08-10-2023 11:25-0500 Respiratory rate 23 /min Carlos Davis MD Work Phone: [facility] 08-10-2023 11:25-0500 SaO2% (BldA) [Mass fraction] 97 % Carlos Davis MD Work Phone: [facility] 08-10-2023 11:25-0500 Systolic blood pressure 121 mm[Hg] Carlos Davis MD Work Phone: [facility] 08-10-2023 10:25-0500 Body temperature 97.2 [degF] Carlos Davis MD Work Phone: [facility] 07-19-2023 10:25-0500 Body height 162.6 cm Evelia Mak MD Work Phone: [facility] 07-19-2023 10:25-0500 Diastolic blood pressure 78 mm[Hg] Evelia Mak MD Work Phone: [facility] 07-19-2023 10:25-0500 Heart rate 100 /min Evelia Mak MD Work Phone: [facility] 07-19-2023 10:25-0500 SaO2% (BldA) [Mass fraction] 98 % Evelia Mak MD Work Phone: [facility] 07-19-2023 10:25-0500 Systolic blood pressure 126 mm[Hg] Evelia Mak MD Work Phone: [facility] 06-02-2023 15:25-0500 Body mass index (BMI) [Ratio] 24 kg/m2 No Primary Care Physician [facility] 06-02-2023 15:25-0500 Body temperature 97.4 [degF] No Primary Care Physician [facility] 06-02-2023 15:25-0500 Body weight 63.5 kg No Primary Care Physician [facility] 06-02-2023 15:25-0500 Diastolic blood pressure 83 mm[Hg] No Primary Care Physician [facility] 06-02-2023 15:25-0500 Heart rate 95 /min No Primary Care Physician [facility] 06-02-2023 15:25-0500 Respiratory rate 18 /min No Primary Care Physician [facility] 06-02-2023 15:25-0500 SaO2% (BldA) [Mass fraction] 98 % No Primary Care Physician [facility] 06-02-2023 15:25-0500 Systolic blood pressure 138 mm[Hg] No Primary Care Physician [facility] 05-29-2023 21:25-0500 Diastolic blood pressure 85 mm[Hg] [facility] 05-29-2023 21:25-0500 Heart rate 98 /min [facility] 05-29-2023 21:25-0500 Respiratory rate 22 /min [facility] 05-29-2023 21:25-0500 SaO2% (BldA) [Mass fraction] 100 % [facility] 05-29-2023 21:25-0500 Systolic blood pressure 136 mm[Hg] [facility] 05-29-2023 19:03-0500 Body height 162.56 cm [facility] 05-29-2023 19:03-0500 Body mass index (BMI) [Ratio] 23.5 kg/m2 [facility] 05-29-2023 19:03-0500 Body temperature 97.5 [degF] [facility] 05-29-2023 19:03-0500 Body weight 62.14 kg [facility] 05-09-2023 19:30-0500 Diastolic blood pressure 100 mm[Hg] [facility] 05-09-2023 19:30-0500 Heart rate 103 /min [facility] 05-09-2023 19:30-0500 Respiratory rate 18 /min [facility] 05-09-2023 19:30-0500 SaO2% (BldA) [Mass fraction] 98 % [facility] 05-09-2023 19:30-0500 Systolic blood pressure 183 mm[Hg] [facility] 05-09-2023 15:14-0500 Body temperature 99.2 [degF] [facility] 05-09-2023 14:34-0500 Body height 162.56 cm [facility] 05-09-2023 14:34-0500 Body mass index (BMI) [Ratio] 24.1 kg/m2 [facility] 05-09-2023 14:34-0500 Body weight 63.8 kg [facility] 05-08-2023 13:14-0500 Diastolic blood pressure 108 mm[Hg] Haile Barriga MD Work Phone: [facility] 05-08-2023 13:14-0500 Heart rate 76 /min Haile Barriga MD Work Phone: [facility] 05-08-2023 13:14-0500 Respiratory rate 14 /min Haile Barriga MD Work Phone: [facility] 05-08-2023 13:14-0500 SaO2% (BldA) [Mass fraction] 98 % Haile Barriga MD Work Phone: [facility] 05-08-2023 13:14-0500 Systolic blood pressure 168 mm[Hg] Haile Barriga MD Work Phone: [facility] 05-08-2023 08:28-0500 Body temperature 98.1 [degF] Haile Barriga MD Work Phone: [facility] 04-11-2023 05:04-0500 Diastolic blood pressure 98 mm[Hg] No Primary Care Physician [facility] 04-11-2023 05:04-0500 Heart rate 86 /min No [facility] Care Physician [facility] 04-11-2023 05:04-0500 Respiratory rate 18 /min No [facility] Care Physician [facility] 04-11-2023 05:04-0500 SaO2% (BldA) [Mass fraction] 99 % No [facility] Care Physician [facility] 04-11-2023 05:04-0500 Systolic blood pressure 148 mm[Hg] No Primary Care Physician [facility] 04-11-2023 03:00-0500 Body height 162.56 cm No [facility] Care Physician [facility] 04-11-2023 03:00-0500 Body mass index (BMI) [Ratio] 24 kg/m2 No [facility] Care Physician [facility] 04-11-2023 03:00-0500 Body temperature 97.4 [degF] No [facility] Care Physician [facility] 04-11-2023 03:00-0500 Body weight 63.4 kg No [facility] Care Physician [facility] 02-22-2023 15:36-0400 Respiratory rate 16 /min No [facility] Care Physician [facility] 02-22-2023 14:41-0400 Heart rate 72 /min No [facility] Care Physician [facility] 02-22-2023 12:46-0400 Body mass index (BMI) [Ratio] 22.4 kg/m2 No Primary Care Physician [facility] 02-22-2023 12:46-0400 Body weight 59.1 kg No [facility] Care Physician [facility] 02-22-2023 12:41-0400 Body height 162.56 cm No [facility] Care Physician [facility] 02-22-2023 12:41-0400 Body temperature 97.1 [degF] No Primary Care Physician [facility] 02-22-2023 12:41-0400 Diastolic blood pressure 106 mm[Hg] No Primary Care Physician [facility] 02-22-2023 12:41-0400 SaO2% (BldA) [Mass fraction] 100 % No [facility] Care Physician [facility] 02-22-2023 12:41-0400 Systolic blood pressure 162 mm[Hg] No Primary Care Physician [facility] 01-26-2023 09:36-0400 Body height 162.56 cm No [facility] Care Physician [facility] 01-26-2023 09:34-0400 Body mass index (BMI) [Ratio] 21.4 kg/m2 No Primary Care Physician [facility] 01-26-2023 09:34-0400 Body temperature 98.5 [degF] No Primary Care Physician [facility] 01-26-2023 09:34-0400 Body weight 56.78 kg No Primary Care Physician [facility] 01-26-2023 09:34-0400 Diastolic blood pressure 81 mm[Hg] No Primary Care Physician [facility] 01-26-2023 09:34-0400 Heart rate 101 /min No Primary Care Physician [facility] 01-26-2023 09:34-0400 Respiratory rate 18 /min No [facility] Care Physician [facility] 01-26-2023 09:34-0400 SaO2% (BldA) [Mass fraction] 100 % No Primary Care Physician [facility] 01-26-2023 09:34-0400 Systolic blood pressure 113 mm[Hg] No Primary Care Physician [facility] 01-18-2023 08:31-0400 Body height 162.6 cm Evelia Mak MD Work Phone: [facility] 01-18-2023 08:31-0400 Body weight 55.34 kg Evelia Mak MD Work Phone: [facility] 01-18-2023 08:31-0400 Diastolic blood pressure 79 mm[Hg] Evelia Mak MD Work Phone: [facility] 01-18-2023 08:31-0400 Heart rate 112 /min Evelia Mak MD Work Phone: [facility] 01-18-2023 08:31-0400 Systolic blood pressure 111 mm[Hg] Evelia Mak MD Work Phone: [facility] 01-04-2023 07:47-0400 Body temperature 98 [degF] No Primary Care Physician [facility] 01-04-2023 07:47-0400 Diastolic blood pressure 79 mm[Hg] No Primary Care Physician [facility] 01-04-2023 07:47-0400 Heart rate 69 /min No [facility] Care Physician [facility] 01-04-2023 07:47-0400 Respiratory rate 18 /min No [facility] Care Physician [facility] 01-04-2023 07:47-0400 SaO2% (BldA) [Mass fraction] 99 % No [facility] Care Physician [facility] 01-04-2023 07:47-0400 Systolic blood pressure 115 mm[Hg] No Primary Care Physician [facility] 01-03-2023 04:59-0400 Body mass index (BMI) [Ratio] 21.4 kg/m2 No Primary Care Physician [facility] 01-03-2023 04:59-0400 Body weight 57.1 kg No Primary Care Physician [facility] 01-02-2023 07:22-0400 Body temperature 97.8 [degF] No Primary Care Physician [facility] 01-02-2023 07:22-0400 Diastolic blood pressure 68 mm[Hg] No Primary Care Physician [facility] 01-02-2023 07:22-0400 Heart rate 72 /min No Primary Care Physician [facility] 01-02-2023 07:22-0400 Respiratory rate 14 /min No [facility] Care Physician [facility] 01-02-2023 07:22-0400 SaO2% (BldA) [Mass fraction] 100 % No Primary Care Physician [facility] 01-02-2023 07:22-0400 Systolic blood pressure 100 mm[Hg] No Primary Care Physician [facility] 01-02-2023 07:20-0400 Body height 162.56 cm No Primary Care Physician [facility] 01-02-2023 07:20-0400 Body mass index (BMI) [Ratio] 21.2 kg/m2 No Primary Care Physician [facility] 01-02-2023 07:20-0400 Body weight 56 kg No Primary Care Physician [facility] 12-29-2022 12:23-0400 Body height 162.56 cm No Primary Care Physician [facility] 12-29-2022 12:23-0400 Body mass index (BMI) [Ratio] 20.9 kg/m2 No Primary Care Physician [facility] 12-29-2022 12:23-0400 Body temperature 97.1 [degF] No Primary Care Physician [facility] 12-29-2022 12:23-0400 Body weight 55.33 kg No Primary Care Physician [facility] 12-29-2022 12:23-0400 Diastolic blood pressure 83 mm[Hg] No Primary Care Physician [facility] 12-29-2022 12:23-0400 Heart rate 98 /min No [facility] Care Physician [facility] 12-29-2022 12:23-0400 Respiratory rate 18 /min No Primary Care Physician [facility] 12-29-2022 12:23-0400 SaO2% (BldA) [Mass fraction] 100 % No Primary Care Physician [facility] 12-29-2022 12:23-0400 Systolic blood pressure 104 mm[Hg] No Primary Care Physician [facility] 12-29-2022 10:33-0400 Body mass index (BMI) [Ratio] 20.9 kg/m2 No Primary Care Physician [facility] 12-29-2022 10:33-0400 Body temperature 96.8 [degF] No Primary Care Physician [facility] 12-29-2022 10:33-0400 Body weight 55.39 kg No Primary Care Physician [facility] 12-29-2022 10:33-0400 Diastolic blood pressure 76 mm[Hg] No Primary Care Physician [facility] 12-29-2022 10:33-0400 Heart rate 102 /min No Primary Care Physician [facility] 12-29-2022 10:33-0400 Respiratory rate 18 /min No Primary Care Physician [facility] 12-29-2022 10:33-0400 SaO2% (BldA) [Mass fraction] 99 % No Primary Care Physician [facility] 12-29-2022 10:33-0400 Systolic blood pressure 105 mm[Hg] No Primary Care Physician [facility] 12-21-2022 11:03-0400 SaO2% (BldA) [Mass fraction] 93 % No Primary Care Physician [facility] 12-21-2022 10:00-0400 Body temperature 98.2 [degF] No Primary Care Physician [facility] 12-21-2022 10:00-0400 Diastolic blood pressure 97 mm[Hg] No Primary Care Physician [facility] 12-21-2022 10:00-0400 Heart rate 78 /min No Primary Care Physician [facility] 12-21-2022 10:00-0400 Respiratory rate 16 /min No [facility] Care Physician [facility] 12-21-2022 10:00-0400 Systolic blood pressure 109 mm[Hg] No [facility] Care Physician [facility] 12-21-2022 07:49-0400 Inhaled oxygen flow rate 2 L/min No [facility] Care Phys[facility] 12-19-2022 15:55-0400 Body height 162.56 cm No [facility] Care Physician [facility] 12-19-2022 15:55-0400 Body weight 60.5 kg No [facility] Care Physician [facility] 12-16-2022 11:21-0400 Body mass index (BMI) [Ratio] 22.8 kg/m2 No Primary Care Physician [facility] 12-14-2022 17:53-0400 Diastolic blood pressure 99 mm[Hg] No Primary Care Physician [facility] 12-14-2022 17:53-0400 Systolic blood pressure 153 mm[Hg] No Primary Care Physician [facility] 12-14-2022 16:42-0400 Body temperature 97.4 [degF] No Primary Care Physician [facility] 12-14-2022 16:42-0400 Heart rate 80 /min No Primary Care Physician [facility] 12-14-2022 16:42-0400 Respiratory rate 18 /min No Primary Care Physician [facility] 12-14-2022 16:42-0400 SaO2% (BldA) [Mass fraction] 99 % No Primary Care Physician [facility] 12-14-2022 11:22-0400 Body height 162.56 cm No Primary Care Physician [facility] 12-14-2022 11:22-0400 Body mass index (BMI) [Ratio] 22.3 kg/m2 No Primary Care Physician [facility] 12-14-2022 11:22-0400 Body weight 58.96 kg No Primary Care Physician [facility] 10-20-2022 08:21-0400 Body height 162.56 cm No Primary Care Physician [facility] 10-20-2022 08:21-0400 Body mass index (BMI) [Ratio] 22.6 kg/m2 No Primary Care Physician [facility] 10-20-2022 08:21-0400 Body temperature 97.2 [degF] No Primary Care Physician [facility] 10-20-2022 08:21-0400 Body weight 59.67 kg No [facility] Care Physician [facility] 10-20-2022 08:21-0400 Diastolic blood pressure 66 mm[Hg] No Primary Care Physician [facility] 10-20-2022 08:21-0400 Heart rate 80 /min No Primary Care Physician [facility] 10-20-2022 08:21-0400 Respiratory rate 16 /min No Primary Care Physician [facility] 10-20-2022 08:21-0400 SaO2% (BldA) [Mass fraction] 95 % No [facility] Care Physician [facility] 10-20-2022 08:21-0400 Systolic blood pressure 92 mm[Hg] No Primary Care Physician [facility] 10-20-2022 00:41-0400 Heart rate 89 /min No Primary Care Physician [facility] 10-20-2022 00:41-0400 Respiratory rate 16 /min No Primary Care Physician [facility] 10-20-2022 00:41-0400 SaO2% (BldA) [Mass fraction] 97 % No Primary Care Physician [facility] 10-19-2022 21:18-0400 Body height 162.56 cm No Primary Care Physician [facility] 10-19-2022 21:18-0400 Body mass index (BMI) [Ratio] 22.8 kg/m2 No Primary Care Physician [facility] 10-19-2022 21:18-0400 Body temperature 98.3 [degF] No Primary Care Physician [facility] 10-19-2022 21:18-0400 Body weight 60.2 kg No Primary Care Physician [facility] 10-19-2022 21:18-0400 Diastolic blood pressure 74 mm[Hg] No Primary Care Physician [facility] 10-19-2022 21:18-0400 Systolic blood pressure 108 mm[Hg] No Primary Care Physician [facility] 09-13-2022 09:57-0400 Body mass index (BMI) [Ratio] 22.1 kg/m2 No Primary Care Physician [facility] 09-13-2022 09:57-0400 Body temperature 98.6 [degF] No [facility] Care Physician [facility] 09-13-2022 09:57-0400 Body weight 58.59 kg No Primary Care Physician [facility] 09-13-2022 09:57-0400 Diastolic blood pressure 91 mm[Hg] No Primary Care Physician [facility] 09-13-2022 09:57-0400 Heart rate 99 /min No [facility] Care Physician [facility] 09-13-2022 09:57-0400 Respiratory rate 17 /min No [facility] Care Physician [facility] 09-13-2022 09:57-0400 Systolic blood pressure 137 mm[Hg] No Primary Care Physician [facility] 08-23-2022 13:42-0400 Body mass index (BMI) [Ratio] 21.6 kg/m2 No [facility] Care Physician [facility] 08-23-2022 13:42-0400 Body temperature 97 [degF] No [facility] Care Physician [facility] 08-23-2022 13:42-0400 Body weight 57.15 kg No [facility] Care Physician [facility] 08-23-2022 13:42-0400 Diastolic blood pressure 89 mm[Hg] No [facility] Care Physician [facility] 08-23-2022 13:42-0400 Heart rate 103 /min No Primary Care Physician [facility] [facility] 13:42-0400 Respiratory rate 18 /min No Primary Care Physician [facility] 08-23-2022 13:42-0400 SaO2% (BldA) [Mass fraction] 98 % No Primary Care Physician [facility] 08-23-2022 13:42-0400 Systolic blood pressure 108 mm[Hg] No Primary Care Physician [facility] 08-23-2022 12:53-0400 Body mass index (BMI) [Ratio] 21.6 kg/m2 No Primary Care Physician [facility] 08-23-2022 12:53-0400 Body temperature 98.5 [degF] No Primary Care Physician [facility] 08-23-2022 12:53-0400 Body weight 57.2 kg No Primary Care Physician [facility] 08-23-2022 12:53-0400 Diastolic blood pressure 77 mm[Hg] No Primary Care Physician [facility] 08-23-2022 12:53-0400 Heart rate 94 /min No Primary Care Physician [facility] 08-23-2022 12:53-0400 Respiratory rate 17 /min No Primary Care Physician [facility] 08-23-2022 12:53-0400 SaO2% (BldA) [Mass fraction] 99 % No Primary Care Physician [facility] 08-23-2022 12:53-0400 Systolic blood pressure 107 mm[Hg] No Primary Care Physician [facility] 08-05-2022 08:12-0500 Body temperature 98.2 [degF] No Primary Care Physician [facility] 08-05-2022 08:12-0500 Diastolic blood pressure 81 mm[Hg] No Primary Care Physician [facility] 08-05-2022 08:12-0500 Heart rate 65 /min No Primary Care Physician [facility] 08-05-2022 08:12-0500 Respiratory rate 14 /min No Primary Care Physician [facility] 08-05-2022 08:12-0500 SaO2% (BldA) [Mass fraction] 94 % No Primary Care Physician [facility] 08-05-2022 08:12-0500 Systolic blood pressure 125 mm[Hg] No Primary Care Physician [facility] 08-04-2022 12:26-0500 Body height 162.56 cm No Primary Care Physician [facility] 08-04-2022 12:26-0500 Body weight 61.68 kg No Primary Care Physician [facility] 07-28-2022 18:05-0500 Inhaled oxygen flow rate 2 L/min No Primary Care Physician [facility] 07-28-2022 12:09-0500 Body mass index (BMI) [Ratio] 23.3 kg/m2 No Primary Care Physician [facility] 07-28-2022 11:31-0500 Diastolic blood pressure 115 mm[Hg] No Primary Care Physician [facility] 07-28-2022 11:31-0500 Heart rate 93 /min No Primary Care Physician [facility] 07-28-2022 11:31-0500 Systolic blood pressure 168 mm[Hg] No Primary Care Physician [facility] 07-28-2022 11:30-0500 Respiratory rate 18 /min No Primary Care Physician [facility] 07-28-2022 11:30-0500 SaO2% (BldA) [Mass fraction] 97 % No Primary Care Physician [facility] 07-28-2022 10:30-0500 Body temperature 98 [degF] No Primary Care Physician [facility] 07-28-2022 06:06-0500 Body height 162.56 cm No Primary Care Physician [facility] 07-28-2022 06:06-0500 Body mass index (BMI) [Ratio] 22.8 kg/m2 No Primary Care Physician [facility] 07-28-2022 06:06-0500 Body weight 60.5 kg No Primary Care Physician [facility] 02-22-2022 15:00-0400 Body temperature 98.2 [degF] No Primary Care Physician [facility] Work Phone: 02-22-2022 15:00-0400 Diastolic blood pressure 94 mm[Hg] No Primary Care Physician [facility] Work Phone: 02-22-2022 15:00-0400 Heart rate 78 /min No Primary Care Physician [facility] Work Phone: 02-22-2022 15:00-0400 Respiratory rate 15 /min No Primary Care Physician [facility] Work Phone: 02-22-2022 15:00-0400 SaO2% (BldA) [Mass fraction] 97 % No Primary Care Physician [facility] Work Phone: 02-22-2022 15:00-0400 Systolic blood pressure 136 mm[Hg] No Primary Care Physician [facility] Work Phone: 02-21-2022 13:19-0400 Body height 162.56 cm No Primary Care Physician [facility] Work Phone: 02-21-2022 13:19-0400 Body weight 63.04 kg No Primary Care Physician [facility] Work Phone: 02-19-2022 14:19-0400 Body mass index (BMI) [Ratio] 23.8 kg/m2 No Primary Care Physician [facility] Work Phone: 01-04-2022 23:44-0400 Diastolic blood pressure 104 mm[Hg] No Primary Care Physician [facility] Work Phone: 01-04-2022 23:44-0400 Heart rate 98 /min No Primary Care Physician [facility] Work Phone: 01-04-2022 23:44-0400 Respiratory rate 17 /min No Primary Care Physician [facility] Work Phone: 01-04-2022 23:44-0400 SaO2% (BldA) [Mass fraction] 99 % No Primary Care Physician [facility] Work Phone: 01-04-2022 23:44-0400 Systolic blood pressure 163 mm[Hg] No Primary Care Physician [facility] Work Phone: 01-04-2022 21:25-0400 Body height 162.56 cm No Primary Care Physician [facility] Work Phone: 01-04-2022 21:25-0400 Body mass index (BMI) [Ratio] 23.7 kg/m2 No Primary Care Physician [facility] Work Phone: 01-04-2022 21:25-0400 Body temperature 98.4 [degF] No Primary Care Physician [facility] Work Phone: 01-04-2022 21:25-0400 Body weight 62.7 kg No Primary Care Physician [facility] Work Phone: 12-16-2021 08:21-0400 Body temperature 98 [degF] No Primary Care Physician [facility] Work Phone: 12-16-2021 08:21-0400 Diastolic blood pressure 97 mm[Hg] No Primary Care Physician [facility] Work Phone: 12-16-2021 08:21-0400 Heart rate 87 /min No Primary Care Physician [facility] Work Phone: 12-16-2021 08:21-0400 Respiratory rate 16 /min No Primary Care Physician [facility] Work Phone: 12-16-2021 08:21-0400 SaO2% (BldA) [Mass fraction] 100 % No Primary Care Physician [facility] Work Phone: 12-16-2021 08:21-0400 Systolic blood pressure 138 mm[Hg] No Primary Care Physician [facility] Work Phone: 12-14-2021 10:10-0400 Body height 162.56 cm No Primary Care Physician [facility] Work Phone: 12-14-2021 10:10-0400 Body weight 60.4 kg No Primary Care Physician [facility] Work Phone: 12-13-2021 19:07-0400 Body mass index (BMI) [Ratio] 22.8 kg/m2 No Primary Care Physician [facility] Work Phone: 12-13-2021 18:30-0400 Body temperature 98 [degF] No Primary Care Physician [facility] Work Phone: 12-13-2021 18:30-0400 Diastolic blood pressure 97 mm[Hg] No Primary Care Physician [facility] Work Phone: 12-13-2021 18:30-0400 Heart rate 111 /min No Primary Care Physician [facility] Work Phone: 12-13-2021 18:30-0400 Respiratory rate 19 /min No Primary Care Physician [facility] Work Phone: 12-13-2021 18:30-0400 SaO2% (BldA) [Mass fraction] 99 % No Primary Care Physician [facility] Work Phone: 12-13-2021 18:30-0400 Systolic blood pressure 147 mm[Hg] No Primary Care Physician [facility] Work Phone: 12-13-2021 15:04-0400 Body height 162.56 cm No Primary Care Physician [facility] Work Phone: 12-13-2021 15:04-0400 Body mass index (BMI) [Ratio] 24 kg/m2 No Primary Care Physician [facility] Work Phone: 12-13-2021 15:04-0400 Body weight 63.5 kg No Primary Care Physician [facility] Work Phone: 08-25-2021 12:39-0400 Body temperature 98 [degF] No Primary Care Physician [facility] Work Phone: 08-25-2021 12:39-0400 Diastolic blood pressure 95 mm[Hg] No Primary Care Physician [facility] Work Phone: 08-25-2021 12:39-0400 Heart rate 84 /min No Primary Care Physician [facility] Work Phone: 08-25-2021 12:39-0400 Respiratory rate 16 /min No Primary Care Physician [facility] Work Phone: 08-25-2021 12:39-0400 SaO2% (BldA) [Mass fraction] 92 % No Primary Care Physician [facility] Work Phone: 08-25-2021 12:39-0400 Systolic blood pressure 135 mm[Hg] No Primary Care Physician [facility] Work Phone: 08-25-2021 11:29-0400 Body height 162.56 cm No Primary Care Physician [facility] Work Phone: 08-25-2021 11:29-0400 Body weight 62.59 kg No Primary Care Physician [facility] Work Phone: 08-22-2021 14:28-0400 Body mass index (BMI) [Ratio] 23.6 kg/m2 No Primary Care Physician [facility] Work Phone: 08-22-2021 13:56-0400 Diastolic blood pressure 113 mm[Hg] No Primary Care Physician [facility] Work Phone: 08-22-2021 13:56-0400 Systolic blood pressure 171 mm[Hg] No Primary Care Physician [facility] Work Phone: 08-22-2021 12:46-0400 Body temperature 97.7 [degF] No Primary Care Physician [facility] Work Phone: 08-22-2021 12:46-0400 Heart rate 106 /min No Primary Care Physician [facility] Work Phone: 08-22-2021 12:46-0400 Respiratory rate 14 /min No Primary Care Physician [facility] Work Phone: 08-22-2021 12:46-0400 SaO2% (BldA) [Mass fraction] 96 % No Primary Care Physician [facility] Work Phone: 08-22-2021 10:00-0400 Body height 162.56 cm No Primary Care Physician [facility] Work Phone: 08-22-2021 10:00-0400 Body mass index (BMI) [Ratio] 24.2 kg/m2 No Primary Care Physician [facility] Work Phone: 08-22-2021 10:00-0400 Body weight 64 kg No Primary Care Physician [facility] Work Phone: Encounters Encounter Date Encounter Type Care Provider Facility Start: 02-07-2025 End: 02-07-2025 Telephone encounter [facility] Comment on above: Pancreatitis Start: 02-06-2025 End: 02-06-2025 Emergency department patient visit No Primary Care Physician -Emergency Department Work Phone: Start: 01-15-2025 End: 01-15-2025 Office outpatient visit 15 minutes Roel Mosley MD [facility] Comment on above: Alcohol-induced gambling supervisor abilio pancreatitis (HCC) (Primary Dx) Start: 01-15-2025 End: 01-15-2025 ambulatory ROEL MOSLEY Facility:[facility] Start: 01-14-2025 ambulatory ROEL SCANLONAK Facility:[facility] Start: 01-14-2025 End: 01-14-2025 Subsequent hospital visit by physician Alva [facility] Work Phone: Radiology Comment on above: Alcohol-induced gambling supervisor abilio pancreatitis (HCC) [K86.0] Start: 10-24-2024 End: 10-24-2024 ambulatory VIANCA ELKRISTAL Facility:[facility] Start: 10-10-2024 ambulatory ROEL MOSLEY Facility:[facility] Start: 10-10-2024 End: 10-10-2024 Subsequent hospital visit by physician Roel Mosley MD Work Phone: [facility] Comment on above: Pancreatic duct dila sg (HCC) [K86.89] Start: 10-08-2024 End: 10-08-2024 ambulatory ROEL MOSLEY Facility:[facility] Start: 10-08-2024 End: 10-08-2024 Admission to establishment [facility] 1 Pre Surgical Testing Start: 10-08-2024 End: 10-08-2024 Alcohol abuse prevention Pst 1 Pre Surgical Testing Comment on above: Pre-op exam (Primary Dx); Gastroesophageal reflux disease, unspecified whether esophagitis present; Essential hypertension; Portal vein thrombosis; Alcohol-induced chronic pancreatitis (HCC); Pancreatic duct stricture (HCC); Cigarette nicotine dependence without complication; Alcohol abuse Start: 10-08-2024 End: 10-08-2024 Preprocedural examination done Pst 1 [facility] Work Phone: Start: 09-09-2024 End: 09-09-2024 Orders Only Roel Mosley MD Work Phone: [facility] [place] Comment on above: Pancreatic duct dila sg (HCC) (Primary Dx) Appointment Start: 08-06-2024 End: 08-06-2024 Telephone encounter Rohan Hooker MD Work Phone: Ambulatory Surgery Comment on above: PreOp Call Start: 08-01-2024 End: 08-01-2024 ambulatory No Primary Care Physician Facility:[facility] Start: 07-18-2024 ambulatory ROEL MOSLEY Facility:[facility] Start: 07-18-2024 End: 07-18-2024 Preprocedural examination done Roel Mosley MD Work Phone: [facility] Work Phone: Start: 07-18-2024 End: 07-18-2024 Subsequent hospital visit by physician Roel Mosley MD Work Phone: [facility] Comment on above: Pancreatic duct stri cture [K86.89] Start: 07-17-2024 Preprocedural examination done Roel Mosley MD Work Phone: [facility] Start: 07-17-2024 [facility] Start: 07-03-2024 End: 07-03-2024 ambulatory ROEL MOSLEY Facility:[facility] Start: 07-03-2024 End: 07-03-2024 Office outpatient new 30 minutes Roel Mosley MD Work Phone: [facility] [place] Comment on above: Alcohol-induced gambling supervisor abilio pancreatitis (HCC) (Primary Dx); Colon cancer screening Start: 06-13-2024 End: 06-13-2024 Telephone encounter Yoli Sampson APRN.CNP Work Phone: Pre Surgical Testing Comment on above: Patient Update Start: 06-10-2024 End: 06-10-2024 Telephone encounter Roel Mosley MD Work Phone: Ambulatory Surgery Comment on above: Sausage Stringer - O ther Start: 05-25-2024 End: 05-25-2024 Emergency department patient visit Baron Smith Facility:[facility] Start: 05-21-2024 End: 05-21-2024 Telephone encounter Roel Mosley MD Work Phone: [place] [facility] Start: 05-21-2024 Encounter for other preprocedural examination ROEL MOSLEY [facility] Start: 05-21-2024 ambulatory ABDULFATAH ABD UL ISSAK Facility:[facility] Start: 05-21-2024 End: 05-21-2024 Preprocedural examination done Roel Mosley MD Work Phone: [facility] Work Phone: Start: 05-21-2024 End: 05-21-2024 Subsequent hospital visit by physician Roel Mosley MD Work Phone: [facility] Comment on above: Alcohol-induced gambling supervisor abilio pancreatitis (HCC) [K86.0] Start: 04-10-2024 End: 04-10-2024 ambulatory Jose Francisco Sainzenzo Facility:[facility] Start: 04-09-2024 End: 04-09-2024 Telephone encounter Roel Mosley MD Work Phone: [place] [facility] Start: 04-09-2024 ambulatory ABDULFATAH ANNALISA MOSLEY Facility:[facility] Start: 04-09-2024 End: 04-09-2024 Preprocedural examination done Roel Mosley MD Work Phone: [facility] Start: 04-09-2024 End: 04-09-2024 Subsequent hospital visit by physician Roel Mosley MD Work Phone: [facility] Comment on above: 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] Start: 04-03-2024 End: 04-03-2024 Telephone encounter Yue Marcum APRN.CNP Work Phone: Pre Surgical Testing Start: 01-13-2024 End: 01-13-2024 Emergency department patient visit Cong Marquez Facility:[facility] Start: 12-25-2023 Telephone encounter Carlos kirkpatrick MD Work Phone: [facility] Comment on above: Appointment Start: 12-06-2023 Telephone encounter Carlos kirkpatrick MD Work Phone: [facility] Start: 12-05-2023 End: 12-05-2023 Orders Only Carlos Davis MD Work Phone: [place] [facility] Comment on above: Biliary stricture (P rimary Dx) 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] Start: 11-27-2023 Telephone encounter Carlos kirkpatrick MD Work Phone: [facility] Start: 11-27-2023 End: 11-27-20[facility] Start: 11-22-2023 End: 11-22-2023 Office outpatient visit 25 minutes Evelia Mak MD Work Phone: [facility] Comment on above: Alcohol-induced gambling supervisor abilio pancreatitis (HCC) (Primary Dx) Start: 11-22-2023 End: 11-22-2023 ambulatory EVELIA MAK Facility:[facility] Start: 11-09-2023 End: 11-09-2023 Subsequent hospital visit by physician [employer] [employer] [facility] (I-Stat/1.5t) Work Phone: Radiology Comment on above: Pancreatitis, necrot izing [K85.91] Start: 09-20-2023 End: 09-20-2023 Office outpatient visit 25 minutes Evelia Mak MD Work Phone: [facility] Comment on above: Pancreatitis, necrot izing (Primary Dx) Start: 09-13-2023 End: 09-13-2023 Emergency department patient visit No Primary Care Physician [facility]-Emergency Department Work Phone: Start: 08-24-2023 End: 08-24-2023 ambulatory No Primary Care Physician [facility] Work Phone: Start: 08-24-2023 End: 08-24-2023 Patient encounter procedure No Primary Care Physician [facility]-Laboratory Work Phone: Start: 08-24-2023 End: 08-24-2023 ambulatory No Primary Care Physician Facility:[facility] Start: 08-10-2023 End: 08-11-2023 Emergency department patient visit No Primary Care Physician [facility]-Emergency Department Work Phone: Start: 08-10-2023 End: 08-10-2023 Subsequent hospital visit by physician Carlos Davis MD Work Phone: [facility] Comment on above: Acute on chronic miguel creatitis (HCC) [K85.90, K86.1] Start: 08-09-2023 End: 08-09-2023 ambulatory No Primary Care Physician [facility] Work Phone: Start: 08-09-2023 End: 08-09-2023 Patient encounter procedure No Primary Care Physician [facility]Laboratory Work Phone: Start: 08-09-2023 End: 08-09-2023 ambulatory No Primary Care Physician Facility:[facility] Start: 07-26-2023 Orders Only Celine Mabry APRN.CAN LABELER Work Phone: OB/Gynecology Comment on above: Nipple discharge (Pr imary Dx) Start: 07-24-2023 Refill Evelia hoyos MD Work Phone: [facility] Comment on above: Refill Request Start: 07-19-2023 End: 07-19-2023 Office outpatient visit 25 minutes Evelia Mak MD Work Phone: [facility] Comment on above: Alcohol-induced gambling supervisor abilio pancreatitis (HCC) (Primary Dx) Start: 07-17-2023 Refill Evelia hoyos MD Work Phone: [facility] Comment on above: Refill Request Start: 07-11-2023 Orders Only Evelia hoyos MD Work Phone: [place] [facility] Comment on above: Alcohol-induced gambling supervisor abilio pancreatitis (HCC) Start: 06-30-2023 Telephone encounter Carlos kirkpatrick MD Work Phone: [facility] Comment on above: Procedure Start: 06-15-2023 End: 06-15-2023 Patient encounter procedure No Primary Care Physician [facility] Work Phone: Start: 06-07-2023 End: 06-07-2023 Patient encounter procedure No Primary Care Physician [facility] Work Phone: Start: 06-02-2023 End: 06-02-2023 Patient encounter procedure No Primary Care Physician [facility] Work Phone: Start: 05-29-2023 End: 05-29-2023 Emergency department patient visit [facility]Emergency Department Work Phone: Start: 05-09-2023 End: 05-09-2023 Emergency department patient visit [facility] Work Phone: Start: 05-08-2023 End: 05-08-2023 Preprocedural examination done Haile Barriga MD Work Phone: [facility] Start: 05-08-2023 End: 05-08-2023 Subsequent hospital visit by physician Haile Barriga MD Work Phone: [facility] Comment on above: Alcohol-induced gambling supervisor abilio pancreatitis (HCC) [K86.0] Start: 04-19-2023 Orders Only Haile Barriga MD Work Phone: [facility] Comment on above: Alcohol-induced gambling supervisor abilio pancreatitis (HCC) (Primary Dx) Start: 04-11-2023 End: 04-11-2023 Emergency department patient visit No Primary Care Physician [facility]Emergency Department Work Phone: Start: 02-24-2023 Telephone encounter Evelia Mak MD Work Phone: [facility] Start: 02-22-2023 End: 02-22-2023 Emergency department patient visit No Primary Care Physician [facility]-Emergency Department Work Phone: Start: 01-30-2023 Telephone encounter Gregorio Dobson MD Work Phone: [facility] [place] Comment on above: New Patient Start: 01-26-2023 Registered Recurring No Primar y Care Physician [facility] Start: 01-24-2023 Orders Only Evelia hoyos MD Work Phone: [facility] Comment on above: Alcohol-induced gambling supervisor abilio pancreatitis (HCC) (Primary Dx) Patient Question Start: 01-23-2023 End: 01-23-2023 ambulatory No Primary Care Physician [facility] Work Phone: Start: 01-23-2023 End: 01-23-2023 Patient encounter procedure No Primary Care Physician [facility], [facility] Work Phone: Start: 01-20-2023 Telephone encounter [facility] [place] Comment on above: Smoking Cessation Start: 01-18-2023 End: 01-18-2023 Office outpatient new 45 minutes Evelia Mak MD Work Phone: [facility] Comment on above: Alcohol-induced gambling supervisor abilio pancreatitis (HCC) (Primary Dx) Start: 01-05-2023 Telephone encounter Evelia Mak MD Work Phone: [facility] Comment on above: Appointment (Referra l from Dr. Salamanca) Start: 01-04-2023 Non-patient / Non-visit No Mdadie Alexander Physician [facility] Work Phone: Start: 01-03-2023 End: 01-04-2023 Evaluation and management of inpatient No Primary Care Physician [facility] 3 Work Phone: Start: 01-03-2023 Non-patient / Non-visit No Maddie oleary Care Physician [facility] Start: 01-02-2023 Non-patient / Non-visit No Maddie oleary Care Physician [facility] Start: 01-02-2023 Evaluation and management of inpatient No [facility] Work Phone: Start: 01-02-2023 Non-patient / Non-visit No Maddie oleary Care Physician [facility] Work Phone: Start: 01-02-2023 observation encounter No Prima ry Care Physician [facility] Work Phone: Start: 12-29-2022 End: 12-29-2022 Emergency department patient visit No Primary Care Physician [facility]Emergency Department Work Phone: Start: 12-29-2022 Registered Recurring No Primar y Care Physician [facility] Start: 12-29-2022 End: 12-29-2022 Patient encounter procedure No Primary Care Physician [facility] Work Phone: Start: 12-21-2022 Non-patient / Non-visit No Maddie Alexander Physician [facility] Work Phone: Start: 12-20-2022 Non-patient / Non-visit No Maddie Alexander Physician [facility] [id number] Start: 12-20-2022 Non-patient / Non-visit No Maddie Alexander Physician [facility] [id number] Start: 12-20-2022 Non-patient / Non-visit No Maddie Alexander Physician [facility] Work Phone: Start: 12-19-2022 Non-patient / Non-visit No Maddie Alexander Physician [facility] Work Phone: Start: 12-18-2022 Non-patient / Non-visit No Maddie Alexander Physician [facility] Work Phone: Start: 12-17-2022 Non-patient / Non-visit No Maddie Alexander Physician [facility] [id number] Start: 12-17-2022 Non-patient / Non-visit No Maddie oleary Care Physician [facility] Work Phone: Start: 12-16-2022 Non-patient / Non-visit No Maddie Alexander Physician [facility] [id number] Start: 12-16-2022 Non-patient / Non-visit No Maddie oleary Care Physician [facility] Work Phone: Start: 12-16-2022 End: 12-16-2022 Non-patient / Non-visit No Primary Care Physician [facility] Work Phone: Start: 12-15-2022 Non-patient / Non-visit No Maddie oleary Care Physician [facility] Start: 12-15-2022 Non-patient / Non-visit No Maddie oleary Care Physician [facility] Work Phone: Start: 12-14-2022 Non-patient / Non-visit No Maddie oleary Care Physician [facility] Work Phone: Start: 12-14-2022 End: 12-21-2022 Evaluation and management of inpatient No Primary Care Physician [facility] 3 Work Phone: Start: 12-01-2022 End: 12-01-2022 ambulatory No Primary Care Physician [facility] Work Phone: Start: 12-01-2022 End: 12-01-2022 Patient encounter procedure No Primary Care Physician [facility] Work Phone: Start: 10-20-2022 End: 10-20-2022 Patient encounter procedure No Primary Care Physician [facility] Work Phone: Start: 10-19-2022 End: 10-20-2022 Emergency department patient visit No Primary Care Physician [facility]Emer[facility] Department Start: 10-19-2022 Registered Recurring No Primar y Care Physician [facility] Oncology Start: 09-13-2022 End: 09-13-2022 Patient encounter procedure No Primary Care Physician [facility] Start: 08-23-2022 End: 08-23-2022 Emergency department patient visit No Primary Care Physician [facility]Emer[facility] Department Start: 08-23-2022 End: 08-23-2022 Patient encounter procedure No Primary Care Physician [facility] Start: 08-10-2022 End: 08-10-2022 Patient encounter procedure No Primary Care Physician [facility] Gastroenterology Start: 08-05-2022 Non-patient / Non-visit No Maddie anirudh Care Physician [facility] Inpatient Physicians Start: 08-04-2022 Non-patient / Non-visit No Maddie anirudh Care Physician [facility] Inpatient [facility]icians Start: 08-03-2022 Non-patient / Non-visit No Maddie anirudh Care Physician [facility] Start: 08-03-2022 Non-patient / Non-visit No Maddie anirudh Care Physician [facility] Inpatient Physicians Start: 08-02-2022 Non-patient / Non-visit No Maddie anirudh Care Physician [facility] Start: 08-02-2022 Non-patient / Non-visit No Maddie anirudh Care Physician [facility] Start: 08-02-2022 Non-patient / Non-visit No Maddie anirudh Care Physician [facility] Inpatient Physicians Start: 08-01-2022 Non-patient / Non-visit No Maddie anirudh Care Physician [facility] Start: 08-01-2022 Non-patient / Non-visit No Maddie anirudh Care Physician [facility] In[facility]icians Start: 07-31-2022 Non-patient / Non-visit No Maddie anirudh Care Physician [facility] Start: 07-31-2022 Non-patient / Non-visit No Maddie anirudh Care Physician [facility] Start: 07-30-2022 Non-patient / Non-visit No Maddie anirudh Care Physician [facility] Inpatient [facility]icians Start: 07-30-2022 Non-patient / Non-visit No Maddie anirudh Care Physician [facility] Start: 07-29-2022 Non-patient / Non-visit No Maddie anirudh Care Physician [facility] Start: 07-29-2022 Non-patient / Non-visit No Maddie anirudh Care Physician [facility] Inpatient [facility]icians Start: 07-28-2022 End: 07-28-2022 Non-patient / Non-visit No Primary Care Physician [facility] Start: 07-28-2022 Non-patient / Non-visit No Maddie oleary Care Physician [facility] Inpatient [facility]icians Start: 07-28-2022 End: 08-05-2022 Evaluation and management of inpatient No [facility] Start: 03-24-2022 Telephone encounter Cecelia Fontenot APRN.CNP Work Phone: [facility] [place] Comment on above: Patient Update Start: 02-22-2022 Non-patient / Non-visit No Maddie oleary Care Physician [facility]icians Start: 02-21-2022 Non-patient / Non-visit No Maddie oleary Care Physician [facility] Start: 02-20-2022 Non-patient / Non-visit No Maddie oleary Care Physician [facility] Start: 02-19-2022 Non-patient / Non-visit No Maddie oleary Care Physician [facility] Start: 02-19-2022 End: 02-22-2022 Evaluation and management of inpatient No [facility] Start: 01-04-2022 End: 01-05-2022 Emergency department patient visit No Primary Care Physician [facility] Start: 12-16-2021 Non-patient / Non-visit No Maddie oleary Care Physician [facility] Start: 12-15-2021 Non-patient / Non-visit No Maddie oleary Care Physician [facility] Start: 12-14-2021 Non-patient / Non-visit No Maddie oleary Care Physician [facility] Start: 12-13-2021 Non-patient / Non-visit No Maddie oleary Care Physician [facility] Start: 12-13-2021 End: 12-16-2021 Evaluation and management of inpatient No [facility] Start: 08-25-2021 Non-patient / Non-visit No Maddie oleary Care Physician [facility] Start: 08-24-2021 Non-patient / Non-visit No Maddie oleary Care Physician [facility] Start: 08-23-2021 Non-patient / Non-visit No Maddie oleary Care Physician [facility] Start: 08-22-2021 Non-patient / Non-visit No Maddie oleary Care Physician [facility] Start: 08-22-2021 End: 08-25-2021 Evaluation and management of inpatient No Primary Care Physician [facility] 3 Start: 11-02-2016 End: 11-02-2016 Emergency department patient visit WILFRIDO TOLEDO [facility] Procedures Date Procedure Procedure Detail Performing Clinician Start: 02-06-2025 Computed tomography of abdomen and pelvis with intravenous contrast No Primary Care Physician Start: 02-06-2025 Urnls dip stick/tablet reagent auto microscopy No Primary Care Physician Start: 02-06-2025 US scan of gallbladder No Primary Care Physician Start: 02-06-2025 Estimated creatinine clearance No Primar y Care Physician Start: 10-10-2024 End: 10-10-2024 Ercp dx collection specimen brushing/washing Roel Mosley MD Work Phone: Start: 07-18-2024 Ercp dx collection specimen brushing/washing Roel Mosley MD Work Phone: Start: 05-21-2024 Ercp dx collection specimen brushing/washing Roel Mosley MD Work Phone: Start: 04-09-2024 Ercp dx collection specimen brushing/washing Carlos Davis MD Start: 12-05-2023 Ercp dx collection specimen brushing/washing Carlos Davis MD Work Phone: Start: 12-05-2023 Urine test visual color cmprsn meths Carlos Davis MD Work Phone: Start: 09-13-2023 Computed tomography of abdomen and pelvis with intravenous contrast No Primary Care Physician Start: 08-10-2023 CT of chest and abdomen No Primary Care Physician Start: 08-10-2023 Urine test visual color cmprsn meths Radha Sears APRN.CNP Work Phone: Start: 08-10-2023 Ercp dx collection specimen brushing/washing Kylee Caputo MA Start: 05-09-2023 Computed tomography of abdomen and pelvis with intravenous contrast Start: 05-08-2023 Esophagoscp rig transoral hypopharynx crv norman Barriga MD Work Phone: Start: 05-08-2023 Urine test visual color cmprsn meths Yoli Siddiqi Donaldo H[employer] Work Phone: Start: 02-22-2023 US scan of gallbladder No Primary Care Physician Start: 02-22-2023 Computed tomography of abdomen and pelvis with intravenous contrast No Primary Care Physician Start: 01-23-2023 CT of abdominal vascular structures No Primary Care Physician Start: 01-03-2023 End: 01-03-2023 Endoscopic retrograde cholangiopancreatography No Primary Care Physician Start: 01-03-2023 Fluoroscopic guidance No Primary Care Physician Start: 01-02-2023 US scan of gallbladder No Primary Care Physician Start: 01-02-2023 Computed tomography of abdomen and pelvis with intravenous contrast No Primary Care Physician Start: 12-21-2022 Plain chest X-ray No Primary Care Physician Start: 12-20-2022 Plain chest X-ray No Primary Care Physician Start: 12-20-2022 Computerized axial tomography No Primary Care Physician Start: 12-17-2022 CT of abdomen with contrast No Primary C are Physician Start: 12-16-2022 End: 12-16-2022 Endoscopic retrograde cholangiopancreatography No Primary Care Physician Start: 12-16-2022 Fluoroscopic guidance No Primary Care Physician Start: 12-16-2022 Plain chest X-ray No Primary Care Physician Start: 12-15-2022 Magnetic resonance cholangiopancreatography No Primary Care Physician Start: 12-14-2022 US scan of gallbladder No Primary Care Physician Start: 12-01-2022 Computed tomography angiography of abdominal and/or pelvic blood vessel No Primary Care Physician Start: 10-19-2022 Computed tomography of abdomen and pelvis with intravenous contrast No Primary Care Physician Start: 10-19-2022 Urine culture No Primary Care Physician Start: 08-23-2022 Computed tomography angiography of abdominal and/or pelvic blood vessel No Primary Care Physician Start: 08-04-2022 Plain chest X-ray No Primary Care Physician Start: 08-02-2022 CT of abdominal vascular structures No Primary Care Physician Start: 08-02-2022 Plain chest X-ray No Primary Care Physician Start: 07-30-2022 Computed tomography of abdomen and pelvis with intravenous contrast No Primary Care Physician Start: 07-28-2022 Plain chest X-ray No Primary Care Physician Start: 07-28-2022 Magnetic resonance cholangiopancreatography No Primary Care Physician Start: 07-28-2022 Computed tomography of abdomen and pelvis with contrast No Primary Care Physician Start: 12-13-2021 Plain chest X-ray No Primary Care Physician Start: 12-13-2021 Computed tomography of abdomen and pelvis with intravenous contrast No Primary Care Physician Start: 08-22-2021 US scan of gallbladder No Primary Care Physician Start: 08-22-2021 Computed tomography of abdomen and pelvis with intravenous contrast No Primary Care Physician Legionella pneumophi la antigen assay No Primary Care Physician Respiratory Panel (PCR) No P [facility] Care Physician Plan of Treatment Date Care Activity Detail Author Start: 07-24-2026 Diabetes Screening Diabetes Screening [facility] Start: 10-08-2025 BP Controlled (<130/80) BP Controlled (<130/80) [facility] Start: 07-23-2025 End: 07-23-2025 Patient encounter procedure 07/23/2025 1:30 PM EST Office [place] [address] [place] [address] Roel Mosley MD [address] [facility] [place], [place] [id number] 6 month follow up [facility]enter[facility] [place] Comment on above: 6 month follow up Start: 07-03-2025 BP Controlled (<130/80) BP Controlled (<130/80) [facility] Start: 02-06-2025 [facility] Start: 02-03-2025 Influenza vaccination [facility] Start: 01-15-2025 End: 04-15-2025 Hepatic function 2000 panel - Serum or Plasma HEPATIC FUNCTION PNL Lab Routine Alcohol-induced chronic pancreatitis (HCC) Expected: 01/15/2025, Expires: 04/15/2025 [facility] Comment on above: Expected: 01/15/2025, Expires: Start: 01-15-2025 End: 01-15-2025 Patient encounter procedure 01/15/2025 2:00 PM EDT Office Visit [place] [place] [address] [facility] [place] [id number] Roel Mosley MD [address] [place], [place] [phone] 3 month follow up Gastroenterology [facility] Comment on above: 3 month follow up Start: 10-10-2024 End: 10-10-2024 Patient encounter procedure 10/10/2024 8:00 AM EDT Appointment [facility] [address] [place] [facility] [place] [address] Roel Mosley MD [address] [facility] [place], [place] [phone] ERCP w/stent exchange, not on any blood thinner or diabetic meds to stop [facility] Comment on above: ERCP w/stent exchange, not on any blood thinner or diabetic meds to stop Start: 10-03-2024 End: 10-03-2024 ambulatory 10/03/2024 11:20 AM EDT PAT Pre Surgical Testing [address] [place], [place] [id number] ERCP WITH STENT CHANGE IN ENDO ON 10/10 Pre Surgical Testing Comment on above: ERCP WITH STENT CHANGE IN ENDO ON 10/10 Start: 09-20-2024 End: 09-20-2024 Patient encounter procedure 09/20/2024 3:00 PM EDT Office Visit [facility] [place] [address] [place] [address] Roel Mosley MD [address] [facility] [place], [place] [phone] follow up for pancreatitis Gastroenterology [facility] Comment on above: follow up for pancreatitis Start: 09-19-2024 BP Controlled (<130/80) BP Controlled (<130/80) [facility] Start: 08-13-2024 End: 08-13-2024 Patient encounter procedure 08/13/2024 2:45 PM EDT Appointment Ambulatory Surgery [address] [place] [phone] Rohan Hooker MD [address] [place], [place] [phone] Colon cancer screening [Z12.11] Ambulatory Surgery Comment on above: Colon cancer screening [Z12.11] Start: 07-25-2024 End: 07-25-2024 Anesthesia consultation 07/25/2024 11:59 PM EST Anesthesia Event Ambulatory Surgery [address] [place] [address] Vanessa Camp APRN.INSTRUCTOR PILOT [address] [place], [place] [phone] Ambulatory Surgery Start: 07-19-2024 BP Controlled (<130/80) BP Controlled (<130/80) [facility] Start: 07-18-2024 End: 07-18-2024 Patient encounter procedure 07/18/2024 8:00 AM EST Appointment [facility] [address] [place] [address] ERCP, pt has appt 07/03 for H&P, not on any blood thinners or diabetic meds that need stopped [facility] Comment on above: ERCP, pt has appt 07/03 for H&P, not on a ny blood thinners or diabetic meds that need stopped Start: 07-09-2024 ambulatory 07/09/2024 GI Preprocedure Call Pre Surgical Testing [address] [place] [place] [address] Roel Mosley MD [address] [place], [place] [id number] Pre Surgical Testing Start: 07-09-2024 End: 07-09-2024 Patient encounter procedure 07/09/2024 9:00 AM EST Appointment [facility] [address] [place] [id number] [facility] Start: 07-03-2024 End: 07-03-2024 Patient encounter procedure 07/03/2024 3:00 PM EST Office Visit [facility] [place] [address] [facility] [place] [address] Roel Mosley MD [address] [facility] [address] needs seen before her next ercp Gastroenterology [facility] Comment on above: needs seen before her next ercp Start: 07-03-2024 End: 10-02-2024 Hepatic function 2000 panel - Serum or Plasma [facility] Comment on above: Expected: 07/03/2024, Expires: Start: 06-20-2024 End: 06-20-2024 ambulatory 06/20/2024 10:40 AM EST PAT Pre Surgical Testing [address] [place] [id number] ERCP Pre Surgical Testing Comment on above: ERCP Start: 2024 Lipid panel Lipid Screening [facility] Start: 2024 Screening for malignant neoplasm of colon [facility] Start: 06-13-2024 End: 06-13-2024 ambulatory 06/13/2024 8:00 AM EST PAT Pre Surgical Testing [address] [place] [id number] ERCP Pre Surgical Testing Comment on above: ERCP Start: 04-10-2024 End: 04-10-2024 Patient encounter procedure 04/10/2024 9:00 AM EST Appointment [facility] [address] [place] [id number] PST SCHEDULED FOR 04/03 AT 1000 [facility] [place] [facility] Comment on above: PST SCHEDULED FOR 04/03 AT 1000 [place] Start: 04-09-2024 End: 04-09-2024 Patient encounter procedure 04/09/2024 8:00 AM EST Appointment [facility] [address] [place] [id number] PST SCHEDULED FOR 04/03 AT 1000 [place] [facility] Comment on above: PST SCHEDULED FOR 04/03 AT 1000 [place] Start: 04-03-2024 End: 04-03-2024 ambulatory 04/03/2024 10:00 AM EDT PAT Pre Surgical Testing [address] [place], [place] [id number] ERCP Pre Surgical Testing Comment on above: ERCP Start: 03-06-2024 End: 12-04-2024 ERCP ERCP Endoscopy Routine Biliary stricture Expected: 03/06/2024, Expires: 12/04/2024 [facility] Work Phone: Comment on above: Expected: 03/06/2024, Expires: Start: 02-04-2024 Covid-19 Vaccine () Covid-19 Vaccine () [facility] Start: 02-04-2024 Influenza vaccination [facility] Start: 01-19-2024 BP Controlled (<130/80) BP Controlled (<130/80) [facility] Start: 12-05-2023 End: 12-05-2023 Patient encounter procedure 12/05/2023 8:00 AM EDT Appointment [facility] [address] [place] [address] Carlos Davis MD [address] [place], [place] [phone] [facility] Start: 11-22-2023 End: 11-22-2023 Patient encounter procedure 11/22/2023 10:00 AM EDT Office Visit [facility] [address] [facility] 3rd [place] [address] Evelia Mak MD [address] [place] [address] F/U MRI [facility] Comment on above: F/U MRI Start: 10-19-2023 End: 10-19-2023 Patient encounter procedure 10/19/2023 10:40 AM EDT Appointment Radiology [address] [place] [address] MRI PANC/BRYAN WO/W IVCON Radiology Comment on above: MRI PANC/BRYAN WO/W IVCON Start: 09-13-2023 [facility] Start: 08-10-2023 [facility] Start: 08-09-2023 Procedure [facility] Start: 06-05-2023 Behavioral Health Screening Behavioral Health Screening [facility] Start: 06-05-2023 Depression Assessment Depression Assessment [facility] Start: 05-29-2023 Incision & drainage abscess simple/single I&D ABSCESS SIMPLE/SINGLE [facility] Start: 05-09-2023 [facility] Start: 05-08-2023 End: 04-19-2024 EGD - THERAPEUTIC, EUS, OR TUBE INTERVENTIONS EGD - THERAPEUTIC, EUS, OR TUBE INTERVENTIONS Endoscopy Routine Alcohol-induced chronic pancreatitis (HCC) Expected: 05/08/2023, Expires: 04/19/2024 [facility] Work Phone: Comment on above: Expected: 05/08/2023, Expires: Start: 04-11-2023 End: 04-11-2023 [facility] Start: 02-03-2023 Covid-19 Vaccine () Covid-19 Vaccine () [facility] Start: 02-03-2023 Influenza vaccination [facility] Start: 01-18-2023 End: 03-20-2023 CBC W Auto Differential panel - Blood CBC + DIFF Lab Routine Alcohol-induced chronic pancreatitis (HCC) Expected: 01/18/2023, Expires: 03/20/2023 [facility] Work Phone: Comment on above: Expected: 01/18/2023, Expires: 3 Start: 01-18-2023 End: 03-20-2023 Comprehensive metabolic 2000 panel - Serum or Plasma COMP METABOLIC PANEL Lab Routine Alcohol-induced chronic pancreatitis (HCC) Expected: 01/18/2023, Expires: 03/20/2023 [facility] Work Phone: Comment on above: Expected: 01/18/2023, Expires: 3 Start: 01-05-2023 [facility] Start: 01-04-2023 Patient discharge [facility] Start: 01-04-2023 Provision of activity privileges [facility] Start: 01-04-2023 [facility] Start: 01-03-2023 Admission procedure [facility] Start: 01-03-2023 [facility] Start: 01-02-2023 [facility] Start: 01-02-2023 Catheterization of vein [facility] Start: 01-02-2023 Referral to general surgeon [facility] Start: 01-02-2023 Following clinical pathway protocol [facility] Start: 01-02-2023 Assessment of risk of venous thromboembolism [facility] Start: 01-02-2023 Inhalation therapy procedure [facility] Start: 01-02-2023 Insertion of catheter into peripheral vein [facility] Start: 01-02-2023 Introduction of urinary catheter [facility] Start: 01-02-2023 Measuring intake and output [facility] Start: 01-02-2023 Oxygen therapy [facility] Start: 01-02-2023 Providing care according to standard [facility] Start: 01-02-2023 Provision of activity privileges [facility] Start: 01-02-2023 Referral to gastroenterology service [facility] Start: 01-02-2023 Referral to service [facility] Start: 01-02-2023 Tobacco use cessation education [facility] Start: 01-02-2023 [facility] Start: 01-02-2023 Admission procedure [facility] Start: 01-02-2023 Verification routine [facility] Start: 12-21-2022 Patient discharge [facility] Start: 12-21-2022 Plain chest X-ray Chest PA and Lateral [facility] Start: 12-21-2022 XR Chest PA and Lateral [facility] Start: 12-20-2022 Dietary regime [facility] Start: 12-20-2022 Catheterization of vein [facility] Start: 12-20-2022 Oxygen therapy [facility] Start: 12-20-2022 Vital signs measurements [facility] Start: 12-19-2022 [facility] Start: 12-18-2022 [facility] Start: 12-17-2022 Physiotherapy of chest [facility] Start: 12-16-2022 Catheterization of vein [facility] Start: 12-15-2022 Referral to gastroenterology service [facility] Start: 12-15-2022 [facility] Start: 12-14-2022 Ambulation without limitation [facility] Start: 12-14-2022 Assessment of risk of venous thromboembolism [facility] Start: 12-14-2022 Insertion of catheter into peripheral vein [facility] Start: 12-14-2022 Providing care according to standard [facility] Start: 12-14-2022 [facility] Start: 12-14-2022 Following clinical pathway protocol [facility] Start: 12-14-2022 US scan of gallbladder Gallbladder [facility] Start: 12-14-2022 Verification routine [facility] Start: 12-14-2022 Admission procedure [facility] Start: 10-19-2022 [facility] Start: 08-05-2022 Patient discharge [facility] Start: 08-04-2022 [facility] Start: 08-03-2022 [facility] Start: 08-03-2022 Elevation of head of bed [facility] Start: 08-03-2022 Patient education [facility] Start: 08-03-2022 [facility] Start: 08-02-2022 Consultation [facility] Start: 07-31-2022 [facility] Start: 07-28-2022 Following clinical pathway protocol [facility] Start: 07-28-2022 Assessment of risk of venous thromboembolism [facility] Start: 07-28-2022 Inhalation therapy procedure [facility] Start: 07-28-2022 Insertion of catheter into peripheral vein [facility] Start: 07-28-2022 Procedure [facility] Start: 07-28-2022 Providing care according to standard [facility] Start: 07-28-2022 Referral to gastroenterology service [facility] Start: 07-28-2022 Referral to service [facility] Start: 07-28-2022 Factor V Leiden genotype [facility] Start: 07-28-2022 End: 07-28-2022 [facility] Start: 07-28-2022 Magnetic resonance cholangiopancreatography MRCP Abdomen without Contrast [facility] Start: 07-28-2022 Verification routine [facility] Start: 07-28-2022 Admission procedure [facility] Start: 07-28-2022 [facility] Start: 06-05-2022 DEPRESSION ASSESSMENT DEPRESSION ASSESSMENT [facility] Start: 02-22-2022 Patient discharge [facility] Work Phone: Start: 02-20-2022 [facility] Work Phone: Start: 02-19-2022 Following clinical pathway protocol [facility] Work Phone: Start: 02-19-2022 Ambulation without limitation [facility] Work Phone: Start: 02-19-2022 Assessment of risk of venous thromboembolism [facility] Work Phone: Start: 02-19-2022 Insertion of catheter into peripheral vein [facility] Work Phone: Start: 02-19-2022 Providing care according to standard [facility] Work Phone: Start: 02-19-2022 [facility] Work Phone: Start: 02-19-2022 Admission procedure [facility] Work Phone: Start: 02-03-2022 Influenza vaccination INFLUENZA (#1) [facility] Start: 12-16-2021 Patient discharge [facility] Work Phone: Start: 12-15-2021 Care planning and problem solving actions [facility] Work Phone: Start: 12-14-2021 Consultation [facility] Work Phone: Start: 12-13-2021 Notification of physician [facility] Work Phone: Start: 12-13-2021 Vital signs measurements [facility] Work Phone: Start: 12-13-2021 Ambulation without limitation [facility] Work Phone: Start: 12-13-2021 Assessment of risk of venous thromboembolism [facility] Work Phone: Start: 12-13-2021 Insertion of catheter into peripheral vein [facility] Work Phone: Start: 12-13-2021 Providing care according to standard [facility] Work Phone: Start: 12-13-2021 End: 12-13-2021 [facility] Work Phone: Start: 12-13-2021 Following clinical pathway protocol [facility] Work Phone: Start: 12-13-2021 Verification routine [facility] Work Phone: Start: 12-13-2021 Admission procedure [facility] Work Phone: Start: 12-13-2021 Patient referral to dietitiaugust [facility] Work Phone: Start: 08-25-2021 Patient discharge [facility] Work Phone: Start: 08-22-2021 [facility] Work Phone: Start: 08-22-2021 Consultation [facility] Work Phone: Start: 08-22-2021 [facility] Work Phone: Start: 08-22-2021 Following clinical pathway protocol [facility] Work Phone: Start: 08-22-2021 Assessment of risk of venous thromboembolism [facility] Work Phone: Start: 08-22-2021 Catheterization of vein [facility] Work Phone: Start: 08-22-2021 Inhalation therapy procedure [facility] Work Phone: Start: 08-22-2021 Insertion of catheter into peripheral vein [facility] Work Phone: Start: 08-22-2021 Measuring intake and output [facility] Work Phone: Start: 08-22-2021 Notification of physician [facility] Work Phone: Start: 08-22-2021 Patient referral to dietitian [facility] Work Phone: Start: 08-22-2021 Providing care according to standard [facility] Work Phone: Start: 08-22-2021 Provision of activity privileges [facility] Work Phone: Start: 08-22-2021 Referral to service [facility] Work Phone: Start: 08-22-2021 Vital signs measurements [facility] Work Phone: Start: 08-22-2021 [facility] Work Phone: Start: 08-22-2021 Computed tomography of abdomen and pelvis with intravenous contrast Abdomen/Pelvis W IV Cont ONLY [facility] Work Phone: Start: 08-22-2021 Admission procedure [facility] Work Phone: Start: 06-05-2021 DEPRESSION ASSESSMENT DEPRESSION ASSESSMENT [facility] Start: 2019 Mammography [facility] Start: 2019 Screening for malignant neoplasm of breast Mammogram Screening [facility] Start: 03-15-2012 HPV TESTING HPV TESTING [facility] Start: 03-15-2012 PAP TESTING PAP TESTING [facility] Start: 03-15-2012 Screening for malignant neoplasm of cervix [facility] Start: 2006 HPV Vaccine (1 - 3-dose SCDM series) HPV Vaccine (1 - 3-dose SCDM series) [facility] Start: 1998 Hepatitis B Vaccine (1 of 3 - 19+ 3-dose series) Hepatitis B Vaccine (1 of 3 - 19+ 3-dose series) [facility] Start: 1998 Pneumococcal vaccination Pneumococcal Vaccine (1 of 2 - PCV) [facility] Start: 1998 [facility] Start: 1997 Annual PCP Team Chronic Disease Visit Annual PCP Team Chronic Disease Visit [facility] Start: 1997 BP Controlled (<130/80) BP Controlled (<130/80) [facility] Start: 1997 Depression Screening Depression Screening [facility] Start: 1997 HEPATITIS C SCREENING HEPATITIS C SCREENING [facility] Start: 1997 Hepatitis C screening Hepatitis C Screening [facility] Start: 1997 HIV SCREENING HIV SCREENING [facility] Start: 1997 HIV screening HIV Screening [facility] Start: 1985 PNEUMOCOCCAL (1 - PCV) PNEUMOCOCCAL (1 - PCV) [facility] Start: 1985 Pneumococcal vaccination [facility] Start: 1979 COVID-19 VACCINE (#1) COVID-19 VACCINE (#1) [facility] Start: 1979 HEPATITIS B (1 of 3 - 3-dose series) HEPATITIS B (1 of 3 - 3-dose series) [facility] Start: 1979 Hepatitis B Vaccine (1 of 3 - 3-dose series) Hepatitis B Vaccine (1 of 3 - 3-dose series) [facility] Alanine aminotransfe rase [Enzymatic activity/volume] in Serum or Plasma [facility] Alanine aminotransfe rase [Enzymatic activity/volume] in Serum or Plasma [facility] Albumin [Mass/volume ] in Serum or Plasma [facility] Albumin [Mass/volume ] in Serum or Plasma [facility] Alkaline phosphatase [Enzymatic activity/volume] in Serum or Plasma [facility] Alkaline phosphatase [Enzymatic activity/volume] in Serum or Plasma [facility] Anion gap measurement [facility] Anion gap measurement [facility] Antithrombin III assay [facility] Antithrombin III ass ay, functional [facility] Aspartate aminotrans ferase [Enzymatic activity/volume] in Serum or Plasma [facility] Aspartate aminotrans ferase [Enzymatic activity/volume] in Serum or Plasma [facility] Bacteria identified in Urine by Culture Urine Culture [facility] Beta 2 glycoprotein 1 IgA Ab [Presence] in Serum [facility] Beta 2 glycoprotein 1 IgG Ab [Presence] in Serum [facility] Beta 2 glycoprotein 1 IgM Ab [Presence] in Serum [facility] Bilirubin, total measurement [facility] Bilirubin, total measurement [facility] BUN/Creatinine ratio [facility] BUN/Creatinine ratio [facility] Calcium [Mass/volume ] in Serum or Plasma [facility] Calcium [Mass/volume ] in Serum or Plasma [facility] Calprotectin [Mass/m ass] in Stool CALPROTECTIN,FECAL Lab Routine Alcohol-induced chronic pancreatitis (HCC) Ordered: 01/15/2025 [facility] Work Phone: Comment on above: Ordered: 01/15/2025 Carbon dioxide, tota l [Moles/volume] in Serum or Plasma [facility] Carbon dioxide, tota l [Moles/volume] in Serum or Plasma [facility] Cardiolipin IgG Ab [Units/volume] in Serum or Plasma [facility] Cardiolipin IgM Ab [Units/volume] in Serum or Plasma [facility] CBC W Auto Different ial panel - Blood [facility] CBC W Auto Different ial panel - Blood [facility] Chloride [Moles/volu me] in Serum or Plasma [facility] Chloride [Moles/volu me] in Serum or Plasma [facility] Creatinine [Moles/vo lume] in Serum or Plasma [facility] Creatinine [Moles/vo lume] in Serum or Plasma [facility] CTA Abdominal vessel s WO and W contrast IV [facility] CYTOLOGY NON-TEACHER ASSISTANT [facility] Work Phone: Comment on above: Release Upon Ordering for 1 Occurrences starting 05/08/2023, 1 completed D-dimer assay, quantitative [facility] D-dimer assay, quantitative [facility] ERCP ERCP Endoscopy Routine Gall bladder stones 05/08/2023 12:12 PM EST [facility] Work Phone: End: 08-01-2024 ERCP ERCP Endoscopy Routine Acute on chronic pancreatitis (HCC) 1 Occurrences starting 08/01/2023 until 08/01/2024 [facility] Work Phone: Comment on above: 1 Occurrences starting 08/01/2023 until 08/01/2024 End: 11-26-2024 ERCP ERCP Endoscopy Routine Common bile duct (CBD) stricture Encounter for removal of biliary stent 1 Occurrences starting 11/27/2023 until 11/26/2024 [facility] Work Phone: Comment on above: 1 Occurrences starting 11/27/2023 until 11/26/2024 End: 04-09-2025 ERCP ERCP Endoscopy Routine Alcohol-induced chronic pancreatitis (HCC) 1 Occurrences starting 04/09/2024 until 04/09/2025 [facility] Work Phone: Comment on above: 1 Occurrences starting 04/09/2024 until 04/09/2025 End: 05-21-2025 ERCP ERCP Endoscopy Routine Pancreatic duct stricture 1 Occurrences starting 05/21/2024 until 05/21/2025 [facility] Work Phone: Comment on above: 1 Occurrences starting 05/21/2024 until 05/21/2025 End: 09-09-2025 ERCP ERCP Endoscopy Routine Pancreatic duct dilated (HCC) 1 Occurrences starting 09/09/2024 until 09/09/2025 [facility] Work Phone: Comment on above: 1 Occurrences starting 09/09/2024 until 09/09/2025 F5 gene mutations fo und [Identifier] in Blood or Tissue by Molecular genetics method [facility] Glucose [Mass/volume ] in Serum or Plasma [facility] Glucose [Mass/volume ] in Serum or Plasma [facility] Hematocrit [Volume F raction] of Blood [facility] Hemoglobin [Mass/vol ume] in Blood [facility] Imaging of liver [facility] Lactate dehydrogenas e measurement [facility] Lactate dehydrogenas e measurement [facility] Leukocytes [#/volume] in Blood [facility] Magnesium [Mass/volu me] in Serum or Plasma [facility] Work Phone: Magnesium [Mass/volu me] in Serum or Plasma [facility] Mean corpuscular hem oglobin concentration determination [facility] Mean corpuscular hem oglobin determination [facility] Measurement of renal function [facility] Measurement of renal function [facility] Microscopic observat ion [Identifier] in Body fluid by Cyto stain [facility] Microscopic observat ion [Identifier] in Body fluid by Cyto stain [facility] Microscopic observat ion [Identifier] in Unspecified specimen by Acid fast stain [facility] End: 10-19-2024 MR Biliary ducts and Pancreatic duct WO and W contrast IV MRI PANC/BRYAN WO/W IVCON Radiology Routine Pancreatitis, necrotizing 1 Occurrences starting 09/20/2023 until 10/19/2024 [facility] Work Phone: Comment on above: 1 Occurrences starting 09/20/2023 until 10/19/2024 MR Biliary ducts and Pancreatic duct WO and W contrast IV MRI PANC/BRYAN WO/W IVCON Radiology Routine Pancreatitis, necrotizing 11/09/2023 1:51 PM EDT [facility] Work Phone: End: 10-19-2024 MR Unspecified body region 3D post processing MRI 3D POST PROCESSING Radiology Routine Pancreatitis, necrotizing 1 Occurrences starting 09/20/2023 until 10/19/2024 [facility] Comment on above: 1 Occurrences starting 09/20/2023 until 10/19/2024 MR Unspecified body region 3D post processing MRI 3D POST PROCESSING Radiology Routine Pancreatitis, necrotizing 11/09/2023 1:51 PM EDT [facility] Neutrophil count [facility] Neutrophil percent differential count [facility] PANC ELASTASE, FECAL PANC ELASTA SE, FECAL Lab Routine Alcohol-induced chronic pancreatitis (HCC) Ordered: 07/03/2024 [facility] Work Phone: Comment on above: Ordered: 07/03/2024 Partial thromboplast in time, activated [facility] Patient Education [facility] Work Phone: Patient referral [facility] Work Phone: Platelets [#/volume] in Blood [facility] Potassium [Moles/vol ume] in Serum or Plasma [facility] Potassium [Moles/vol ume] in Serum or Plasma [facility] Procedure [facility] Protein C [Units/vol ume] in Platelet poor plasma by Coagulation assay [facility] Protein C Ag actual/ normal in Platelet poor plasma by Immunoassay [facility] Prothrombin time [facility] Red blood cell count [facility] Red cell distributio n width determination [facility] End: 07-03-2025 Screening colonoscopy COLONOSCOPY SCREENING Endoscopy Routine Colon cancer screening 1 Occurrences starting 07/03/2024 until 07/03/2025 [facility] Comment on above: 1 Occurrences starting 07/03/2024 until 07/03/2025 Sodium [Moles/volume ] in Serum or Plasma [facility] Sodium [Moles/volume ] in Serum or Plasma [facility] SURGICAL PATHOLOGY SURGICAL PATH OLOGY Lab Routine Alcohol-induced chronic pancreatitis (HCC) Pre-op examination Essential hypertension Cigarette nicotine dependence without complication Alcohol abuse Portal vein thrombosis Gastroesophageal reflux disease, unspecified whether esophagitis present Release Upon Ordering for 1 Occurrences starting 05/08/2023 [facility] Work Phone: Comment on above: Release Upon Ordering for 1 Occurrences starting 05/08/2023 Targeted analysis fo r gene mutation [facility] Total protein measurement [facility] Total protein measurement [facility] Urea nitrogen [Mass/ volume] in Serum or Plasma [facility] Urea nitrogen [Mass/ volume] in Serum or Plasma [facility] End: 08-24-2024 US Breast - right limited US BREAST LTD RIGHT Radiology Routine Nipple discharge 1 Occurrences starting 07/26/2023 until 08/24/2024 [facility] Work Phone: Comment on above: 1 Occurrences starting 07/26/2023 until 08/24/2024 XR Abdomen Supine and Upright XR ABDOMEN 1V SUPINE Radiology Routine Alcohol-induced chronic pancreatitis (HCC) 01/14/2025 3:39 PM EDT [facility] Work Phone: [facility] Payers Date Payer Category Payer Self-pay [id number] 2023 Medicaid [id number] 2022 Medicaid [id number] 2013 Unknown [id number] Unknown [id number] [id number] Unknown [id number] 2.16.8 [id number] Unknown [id number] 2.16.8 [id number] Unknown [id number] 2.16.8 [id number] Unknown [id number] 2.16.8 [id number] Unknown [id number] 2.16.8 [id number] Unknown [id number] 2.16.8 [id number] Unknown [id number] 2.16.8 [id number] Unknown [id number] 2.16.8 [id number] Unknown [id number] 2.16.8 [id number] Social History Date Type Detail Facility [facility] Work Phone: Start: 08-22-2021 End: 09-13-2023 Tobacco smoking status TXIS Unknown if ever smoked [facility] Start: 1980 Sex Assigned At Female W [facility] Start: 03-04-2011 End: 10-08-2024 Tobacco smoking status TXIS Smokes tobacco daily [facility] History of tobacco use Cigarette Smoker [facility] Start: 03-04-2011 End: 01-18-2023 Cigarettes smoked current (pack per day) - Reported 1 [facility] Start: 03-04-2011 End: 01-15-2025 Tobacco use and exposure Smokeless tobacco non-user [facility] Start: 01-19-2022 End: 01-18-2023 Alcohol intake Current non-drinker of alcohol (finding) [facility] Start: 1980 Sex Assigned At Not on file [facility] Start: 10-28-2022 End: 01-18-2023 Tobacco use panel [facility] Start: 05-06-2012 National Score (1-100), lower number is lower risk Not on file [facility] Start: 05-08-2023 End: 01-15-2025 Alcohol intake Ex-drinker (finding) [facility] Start: 05-08-2023 Alcohol Comment sober since 12/2022 [facility] How hard is it for y ou to pay for the very basics like food, housing, medical care, and heating Not very hard [facility] (I/We) worried froylan er (my/our) food would run out before (I/we) got money to buy more. Never true [facility] In the past 12 month s, was there a time when you were not able to pay the mortgage or rent on time? No [facility] Start: 10-08-2024 Tobacco Comment Quit 09/2024Sin ce 15 x 1 PPD [facility] Start: 01-15-2025 [facility] History of tobacco use Current smoker [facility] How often to you hav e a drink containing alcohol? Never [facility] Start: 02-06-2025 Tobacco smoking stat [facility] Current Heavy tobacco smoker [facility] NEGATED: Highlighted row [facility] Medical Equipment Procedure Code Equipment Code Equipment Origin al Text Equipment Identifier Dates ERCP (endoscopic retrograde cholangiopancreato graphy) ([id number]) Polymeric biliary stent, non-bioabsorbable [id number] FDA Start: 12-16-2022 ERCP (endoscopic retrograde cholangiopancreato graphy) ([id number]) Polymeric biliary stent, non-bioabsorbable ()[id number] FDA Start: 01-03-2023 Stent Wallflex 1 0mm 8.5fr Permalume Covering 40mm Biliary Rapid Exchange - [id number] Start: 05-08-2023 Stent [place] Viabi l 10mm Metal 60mm 200cm Endoprosthesis No Hole Full Cover - [id number] Start: 08-10-2023 Stent [place] Viabi l 10mm 6cm 200cm Endoprosthesis Short Wire Drainage Hole - [id number] Start: 12-05-2023 Stent Advanix 7f x7cm Pancreatic [id number] Start: 04-09-2024 Stent Advanix 7f x7cm Pancreatic [id number] Start: 05-21-2024 Goals Date Patient Goal Desired Activity /State Functional Status Date Assessment Result Facility 05-12-2023 Are you deaf, or do you have serious difficulty hearing No 05/12/2023 2:00 PM Sowmya Salazar RN No [facility] 05-12-2023 Are you blind, or do you have serious difficulty seeing, even when wearing glasses No 05/12/2023 2:00 PM Sowmya Salazar, VIVIEN No [facility] 05-12-2023 Do you have serious difficulty walking or climbing stairs No 05/12/2023 2:00 PM Sowmya Salazar, VIVIEN No [facility] 05-12-2023 Do you have difficul ty dressing or bathing No 05/12/2023 2:00 PM Sowmya Salazar RN No [facility] 05-12-2023 Because of a physica l, mental, or emotional condition, do you have difficulty doing errands alone such as visiting a physician's office or shopping No 05/12/2023 2:00 PM Sowmya Salazar RN No [facility] 01-04-2023 Functional status Ambulates [facility] Work Phone: 12-21-2022 Functional status Ambulates;Up ad santino [facility] Work Phone: 08-05-2022 Functional status Ambulates [facility] Work Phone: 08-04-2022 Functional status Tolerates Activity Well [facility] Work Phone: 02-22-2022 Functional status Ambulates [facility] Work Phone: 12-16-2021 Functional status Ambulates;Up ad santino [facility] Work Phone: 08-25-2021 Functional status Ambulates;Up ad santino [facility] Work Phone: [facility] Mental Status Date Assessment Result Facility 05-12-2023 Because of a physica l, mental, or emotional condition, do you have serious difficulty concentrating, remembering, or making decisions No 05/12/2023 2:00 PM Sowmya Salazar RN No [facility] 01-04-2023 Cognitive function Level Of Cons ciousness Awake;Alert;Appropriate;Fol lows Commands [facility] Work Phone: 01-03-2023 Cognitive function Appropriate;Cooperativ e [facility] Work Phone: 12-21-2022 Cognitive function Voice/Name [facility] Work Phone: 08-05-2022 Cognitive function Voice/Name [facility] Work Phone: 02-21-2022 Cognitive function Voice/Name [facility] Work Phone: 12-16-2021 Cognitive function Voice/Name [facility] Work Phone: 12-15-2021 Cognitive function Voice/Name [facility] Work Phone: 08-24-2021 Cognitive function Voice/Name [facility] Work Phone: Clinical Notes 03-08-2021 to 02-07-2025 Telephone Encounter - Gertrudis Gonzalez RN - 02/07/2025 3:22 PM EDTTelephone Encounter - Gertrudis Gonzalez RN - 02/07/2025 3:22 PM EDTPatient InstructionsPatient InstructionsPatient Instructions Note Date & Type Note Facility 02-07-2025 Telephone encounter Note Spoke to patient and advised that we don't prescribe pain medicine from our office and that she would need to return to ED if having increased pain, fevers, or increased symptoms. She was sent home wit Hydrocodone from ED And she then hung up on me. [facility] 02-07-2025 Miscellaneous Notes Spoke to patient and advised that we don't prescribe pain medicine from our office and that she would need to return to ED if having increased pain, fevers, or increased symptoms. She was sent home wit Hydrocodone from ED And she then hung up on me. [facility] 01/15/25 Attempted to call patient No answer and no voicemail set up Unable to LVM Melva called to report that she was in the [facility] ER last night and told she has pancreatitis. They sent her home with hydrocodone,but she 's in a lot of pain. She is requesting something for her pain Please call her [phone] Rama Moreira documented in this encounter [facility] 02-07-2025 Telephone encounter Note [facility] 01/15/25 Attempted to call patient No answer and no voicemail set up Unable to LVM [facility] 02-07-2025 Telephone encounter Note Melva called to report that she was in the [facility] ER last night and told she has pancreatitis. They sent her home with hydrocodone,but she 's in a lot of pain. She is requesting something for her pain Please call her [phone] Claribel Moreiran [facility] 02-06-2025 Radiology Diagnostic study note [facility] Imaging Services [address] [place] [id number] Abdomen/Pelvis W IV Cont ONLY MR#: [id number] Acct: [id number] Name: MELVA KERNS MAY Rep #: [id number] : 1980 F 44 From: Jose M Best MD PCP: Care Physician,No Primary Status: REG ER Study:Abdomen/Pelvis W IV Cont ONLY Date of E xam: 02/06/25 Exam# [id number] Ordering Dr: Enoch Pickens MD PROCEDURE: ABDOMEN/PELVIS W IV CONT ONLY 02/06/2025 REASON FOR EXAM: RUQ PAIN TECHNIQUE: Procedure Code: [id number] Modality: CT Procedure: ABDOMEN/PELVIS W IV CONT ONLY Coronal and Sagittal reconstruction series were provided. CONTRAST: 100 cc of Isovue 370 intravenous contrast. One or more dose reduction techniques were used (e.g., Automated exposure control, adjustment of the mA and/or kV according to patient size, use of iterative reconstruction technique. COMPARISON: CT abdomen and pelvis 05/25/2024 FINDINGS: Lung bases: Unremarkable. Liver: Normal size. No mass. Gallbladder: Stable dilatation of the common bile duct measuring 14 mm. The distal common bile duct tapers. Mild intrahepatic bile duct dilation. No calcified gallstones or gallbladder wall thickening. Spleen: Normal size. Pancreas: Redemonstrated dilatation of the main pancreatic duct measuring 6 mm. No definite pancreatic mass visualized. Adrenals: Unremarkable. Kidneys: Normal renal sizes. No hydronephrosis. Bladder: Unremarkable. Reproductive Organs: Normal uterine size and contour. Ovaries are unremarkable. Bowel: No bowel obstruction. Moderate colonic stool burden suggesting constipation. Appendix: Normal. Lymph nodes: Unremarkable. Vasculature: Moderate atherosclerotic calcifications of the abdominal aorta and its branches. No aneurysm. Peritoneum / Retroperitoneum: No free fluid or air. Bones: Unremarkable. No acute fractures. CT/Abdomen/Pelvis W IV Cont ONLY IMPRESSION: 1. Stable dilatation of the common bile duct measuring 14 mm with gradual distaltapering. Mild intrahepatic bile duct dilation. Additional dilatation of the main pancreatic duct measuring 6 mm. 2. No other acute findings in the abdomen or pelvis as imaged. Reading Location: [facility] CC: Dr. Vandana Pickens MD; No Primary Care Physician ~ Brand Protection Manager: Signed [facility] 02-06-2025 Radiology Diagnostic study note [facility] Imaging Services [address] [place] [id number] Gallbladder MR#: [id number] Acct: [id number] Name: MELVA KERNS Rep #: [id number] 07 : 1980 F 44 From: John Andino MD PCP: Care Physician,No Primary Status: REG ER Study:Gallbladder Date of Exam: 02/06/25 Exam# [id number] Ordering Dr: Enoch Pickens MD PROCEDURE: GALLBLADDER 02/06/2025 REASON FOR EXAM: PAIN TECHNIQUE: Procedure Code: USGB Modality: US Procedure: GALLBLADDER FINDINGS: Liver measures 14.6 cm. Echogenicity within normal limits. Portal flow is hepatopetal. No focal hepatic masses or intrahepatic ductal dilatation. Gallbladder length 4.9 cm. Normal wall thickness at 2 mm. No gallstones, sludge,or pericholecystic fluid. Sonographic Lindsay sign negative. Common bile duct measures 1.2 cm. Pancreas not visualized due to overlying gas. Right kidney measures 9.7 ? 4.5 ? 5.0 cm. Cortical thickness 1.5 cm. Echogenicity within normal limits. No calculi, masses, or hydronephrosis. US/Gallbladder IMPRESSION: Dilated common bile duct, there is clinical concern for obstruction consider MRCP. Reading Location: [address] CC: Dr. Vandana Pickens MD; No Primary Care Physician ~ Brand Protection Manager: Signed [facility] 01-15-2025 Instructions Roel Mosley MD - 01/15/2025 2:26 PM EDT We discussed your chronic pancreatitis and ongoing pain: - Chronic pancreatitis often causes persistent pain, which may not fully resolve. The pancreatic stent you previously had was intended to help alleviate pain and relieve any strictures. However, since the stent migrated on its own, it suggests there may not be significant stricture in the duct at this time. - You mentioned that the Butrans patch prescribed by your pain doctor is no longer effective. Non-opiate treatments, such as gabapentin and celiac blocks, have been tried in the past but were not effective for you. Unfortunately, there are no additional non-opiate options currently available for managing your pain. - Opiate-based treatments are not recommended for chronic pancreatitis due to the risks of long-term complications. We discussed your recent imaging and lab work: - I reviewed your imaging, and it does not show evidence of the stent remaining in the duct. However, we are waiting for the official radiology report to confirm this. - Your liver labs from June were normal. I will order repeat liver labs to ensure there is no bile duct obstruction. We discussed the need for a stool test: - A stool test was ordered in June but was not processed. I will reorder this test to evaluate your pancreatic function. Please ensure the sample is submitted to a [facility] facility for processing. Next steps: - Complete the stool test and repeat liver labs as ordered. These will help assess your pancreatic function and rule out any bile duct obstruction. - I will see you again in 6 months for follow-up. If your symptoms worsen or you have any new concerns before then, please contact our office. documented in this encounter [facility] 01-15-2025 Note HNO ID: [id number] Author: ROEL MOSLEY MD Service: ? Author Type: Physician Type: Progress Notes Filed: 01/15/2025 15:02 Note Text: CHIEF COMPLAINT: Patient presents with: Chronic pancreatitis: ERCP 10/10/24 HPI: Melva Kerns is a 44 year old female with a PMHx of Alcohol induced chronic pancreatitis who presents for follow up. Patient has history of chronic pancreatitis with resultant pancreatic and biliary duct strictures. She had multiple ERCPs with biliary and pancreatic stent placement. On her last ERCP the pancreatic stent spontaneously migrated suggestive of improving pancreatic duct stricture. The pancreatic duct stent was not replaced. Similarly, the biliary duct stricture appeared improved as well and biliary stent was not replaced. Her hepatic function panel has been monitored and remained stable. She does endorse diffuse persistent mild abdominal pain. She reports no significant change in pain intensity or character with or without a pancreatic duct stent in place. She has previously trialed multiple non-opioid pain management strategies, including gabapentin, Lyrica, and a celiac plexus block, all of which were ineffective. She is currently managed by a pain specialist and uses Butrans patches, which she reports are no longer providing adequate relief. Current Outpatient Medications Medication Sig BUTRANS 20 mcg/hour transdermal patch apply 1 patch topically to CLEAN, DRY, AND INTACT SKIN REMOVE AND REPLACE weekly acetaminophen (TYLENOL) 500 mg tablet Take 2 tablets by mouth every 6 hours. No current facility-administered medications for this visit. ALLERGIES No Known Allergies SOCIAL HISTORY[1] 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 Blood clot in vein Essential hypertension Pancreatic duct stricture (HCC) Portal vein thrombosis PAST SURGICAL HISTORY Procedure Laterality Date DILATION AND CURETTAGE DXAND/THER NONOBSTETRIC Dilation AND curettage, X-2 LIG/TRNSXJ FLP TUBE ABDL/VAG APPR UNI/BI Tubal ligation PLACEMENT, BILE DUCT STENT 12/2023 FAMILY HISTORY Problem Relation Age of Onset Diabetes Maternal Uncle Asthma Brother REVIEW OF SYSTEMS Review of Systems Gastrointestinal: Positive for abdominal pain. All other systems reviewed and are negative. PHYSICAL EXAM BP 100/62 Pulse 75 Ht 5' 4 (1.63m) Wt 135 lb (61.2kg) SpO2 97% LMP 09/09/2024 BMI 23.16 kg/(m2). Physical Exam General: Awake and alert, NAD. Mouth: Mucous membranes moist. Respiratory: Even, non-labored. Heart: Regular rate. Abdomen: Soft, non-tender, no distention. Extremities: No edema. Neurological: Grossly normal. Skin: Warm and dry. ASSESSMENT/PLAN: #Alcohol-induced chronic pancreatitis (HCC) (Primary) #H/O Biliary and Pancreatic duct strictures - Persistent mild abdominal pain, unchanged with pancreatic stent placement. Previous stent migrated spontaneously, suggesting minimal ductal stricture. Patient has tried gabapentin, Lyrica, and celiac block without relief. Currently using Butrans patch for pain management, which is not as effective. - Ordered liver function tests to assess for any biliary obstruction. - Stool test ordered in June was not collected. Reordered stool study to evaluate pancreatic function. - Advised to continue to abstain from alcohol - Advised to quit or cut down on tobacco use - CALPROTECTIN,FECAL - HEPATIC FUNCTION PNL; Future #CRC Screening - Ordered a colonoscopy on last visit, however, patient did not complete it - She would like to hold any screening colonoscopy at this point Follow up in 6 months Roel Mosley MD DATE: 01/15/25 TIME: 2:02 PM [1] Social History Tobacco Use Smoking status: Former Current packs/day: 0.50 Average packs/day: 0.5 packs/day for 30.0 years (15.0 ttl pk-yrs) Types: Cigarettes Smokeless tobacco: Never Tobacco comments: Quit 09/2024 Since 15 x 1 PPD Vaping Use Vaping status: current everyday user Substances: Nicotine Substance Use Topics Alcohol use: Not Currently Comment: sober since 12/2022 Drug use: No [facility] 01-15-2025 History of Present illness Narrative CHIEF COMPLAINT: Patient presents with: Chronic pancreatitis: ERCP 10/10/24 HPI: Melva Kerns is a 44 year old female with a PMHx of Alcohol induced chronic pancreatitis who presents for follow up. Patient has history of chronic pancreatitis with resultant pancreatic and biliary duct strictures. She had multiple ERCPs with biliary and pancreatic stent placement. On her last ERCP the pancreatic stent spontaneously migrated suggestive of improving pancreatic duct stricture. The pancreatic duct stent was not replaced. Similarly, the biliary duct stricture appeared improved as well and biliary stent was not replaced. Her hepatic function panel has been monitored and remained stable. She does endorse diffuse persistent mild abdominal pain. She reports no significant change in pain intensity or character with or without a pancreatic duct stent in place. She has previously trialed multiple non-opioid pain management strategies, including gabapentin, Lyrica, and a celiac plexus block, all of which were ineffective. She is currently managed by a pain specialist and uses Butrans patches, which she reports are no longer providing adequate relief. Current Outpatient Medications Medication Sig BUTRANS 20 mcg/hour transdermal patch apply 1 patch topically to CLEAN, DRY, AND INTACT SKIN REMOVE AND REPLACE weekly acetaminophen (TYLENOL) 500 mg tablet Take 2 tablets by mouth every 6 hours. No current facility-administered medications for this visit. ALLERGIES No Known Allergies SOCIAL HISTORY[1] 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 Blood clot in vein Essential hypertension Pancreatic duct stricture (HCC) Portal vein thrombosis PAST SURGICAL HISTORY Procedure Laterality Date DILATION & CURETTAGE DX&/THER NONOBSTETRIC Dilation & curettage, X-2 LIG/TRNSXJ FLP TUBE ABDL/VAG APPR UNI/BI Tubal ligation PLACEMENT, BILE DUCT STENT 12/2023 FAMILY HISTORY Problem Relation Age of Onset Diabetes Maternal Uncle Asthma Brother REVIEW OF SYSTEMS Review of Systems Gastrointestinal: Positive for abdominal pain. All other systems reviewed and are negative. PHYSICAL EXAM BP 100/62 Pulse 75 Ht 5' 4 (1.63m) Wt 135 lb (61.2kg) SpO2 97% LMP 09/09/2024 BMI 23.16 kg/(m^2). Physical Exam General: Awake and alert, NAD. Mouth: Mucous membranes moist. Respiratory: Even, non-labored. Heart: Regular rate. Abdomen: Soft, non-tender, no distention. Extremities: No edema. Neurological: Grossly normal. Skin: Warm and dry. ASSESSMENT/PLAN: #Alcohol-induced chronic pancreatitis (HCC) (Primary) #H/O Biliary and Pancreatic duct strictures - Persistent mild abdominal pain, unchanged with pancreatic stent placement. Previous stent migrated spontaneously, suggesting minimal ductal stricture. Patient has tried gabapentin, Lyrica, and celiac block without relief. Currently using Butrans patch for pain management, which is not as effective. - Ordered liver function tests to assess for any biliary obstruction. - Stool test ordered in June was not collected. Reordered stool study to evaluate pancreatic function. - Advised to continue to abstain from alcohol - Advised to quit or cut down on tobacco use - CALPROTECTIN,FECAL - HEPATIC FUNCTION PNL; Future #CRC Screening - Ordered a colonoscopy on last visit, however, patient did not complete it - She would like to hold any screening colonoscopy at this point Follow up in 6 months Roel Mosley MD DATE: 01/15/25 TIME: 2:02 PM [1] Social History Tobacco Use Smoking status: Former Current packs/day: 0.50 Average packs/day: 0.5 packs/day for 30.0 years (15.0 ttl pk-yrs) Types: Cigarettes Smokeless tobacco: Never Tobacco comments: Quit 09/2024 Since 15 x 1 PPD Vaping Use Vaping status: current everyday user Substances: Nicotine Substance Use Topics Alcohol use: Not Currently Comment: sober since 12/2022 Drug use: No documented in this encounter [facility] 01-14-2025 History of Present illness Narrative Radiology Service Progress Note PATIENT NAME: Melva Kerns DATE OF SERVICE: January 14, 2025 TIME: 3:31 PM PATIENT IDENTITY VERIFICATION COMPLETED USING TWO (2) IDENTIFIERS: Name and Date of confirmed by patient verbally. FALL SCREENING: Has the patient had 2 falls in the last year or 1 fall with injury or currently using an Ambulatory Assistive Device (Walker, Cane, Wheelchair, Crutches, etc.)? No PATIENT GENDER DATA: Assigned female at . status: : No status: NO. PATIENT RELEVANT IMPLANT DATA REVIEWED: Yes PATIENT PRESENTS WITH AN IMPLANTABLE OR ATTACHED BUSINESS PROGRAMMER: No RADIOLOGY DEPARTMENT: General X-ray: Exam(s) Completed: Abdomen X-Ray: Abdomen PERIPHERAL IV DATA: Not applicable SIGNED BY: YANI Amos) January 14, 2025 3:31 PM documented in this encounter [facility] 01-14-2025 Note HNO ID: [id number] Author: JOHN CASTELLANOS RT(R) Service: ? Author Type: Supply Chain Analyst Type: Progress Notes Filed: 01/14/2025 15:38 Note Text: Radiology Service Progress Note PATIENT NAME: Melva Kerns DATE OF SERVICE: January 14, 2025 TIME: 3:31 PM PATIENT IDENTITY VERIFICATION COMPLETED USING TWO (2) IDENTIFIERS: Name and Date of confirmed by patient verbally. FALL SCREENING: Has the patient had 2 falls in the last year or 1 fall with injury or currently using an Ambulatory Assistive Device (Walker, Cane, Wheelchair, Crutches, etc.)? No PATIENT GENDER DATA: Assigned female at . status: : No status: NO. PATIENT RELEVANT IMPLANT DATA REVIEWED: Yes PATIENT PRESENTS WITH AN IMPLANTABLE OR ATTACHED BUSINESS PROGRAMMER: No RADIOLOGY DEPARTMENT: General X-ray: Exam(s) Completed: Abdomen X-Ray: Abdomen PERIPHERAL IV DATA: Not applicable SIGNED BY: YANI Amos) January 14, 2025 3:31 PM [facility] 10-24-2024 Note HNO ID: [id number] Author: VIANCA CHAPPELL APRN.CAN LABELER Service: ? Author Type: Nurse Practitioner Type: Progress Notes Filed: 10/24/2024 07:56 Note Text: [facility] Subjective Melva Kerns is a 44 year old female. Patient presents with: Sore Throat: L eye conjunctivitis x last night Sore Throat Sore Throat: - Onset last night. - Associated with neck swelling. - Denies fever, ear pain, cough, rhinorrhea, or nasal congestion. - Took Tylenol for relief. - Recent exposure to a grandchild who is ill. Conjunctivitis: - Onset last night. - Mild drainage from the left eye. Review of Systems HENT: Positive for sore throat. Constitutional: (-) fever Eyes: (+) eye redness (left), (+) eye discharge (left) Ears/Nose/Mouth/Throat: (+) sore throat, (-) ear pain, (-) congestion Neck: (+) neck swelling Respiratory: (-) cough Objective BP 111/76 Pulse 97 Temp 36.3 ?C (97.3 ?F) Resp 18 Wt 62.4 kg (137 lb 9.1 oz) LMP 09/09/2024 (Approximate) SpO2 96% BMI 23.60 kg/m? PAST MEDICAL HISTORY Diagnosis Date - Alcohol abuse - Alcohol-induced chronic pancreatitis (HCC) - Bile duct disease - Blood clot in vein - Essential hypertension - Pancreatic duct stricture (HCC) - Portal vein thrombosis PAST SURGICAL HISTORY Procedure Laterality Date - DILATION AND CURETTAGE DXAND/THER NONOBSTETRIC Dilation AND curettage, X-2 - LIG/TRNSXJ FLP TUBE ABDL/VAG APPR UNI/BI Tubal ligation - PLACEMENT, BILE DUCT STENT 12/2023 ALLERGIES Patient has no known allergies. MEDICATIONS - polymyxin B-trimethoprim (POLYTRIM) 10,000 unit- 1 mg/mL ophthalmic solution Use 1 drop in the left eye four times daily for 7 days. - BUTRANS 20 mcg/hour transdermal patch apply 1 patch topically to CLEAN, DRY, AND INTACT SKIN REMOVE AND REPLACE weekly - acetaminophen (TYLENOL) 500 mg tablet Take 2 tablets by mouth every 6 hours. FAMILY HISTORY Problem Relation Age of Onset - Diabetes Maternal Uncle - Asthma Brother Social History Tobacco Use - Smoking status: Every Day Current packs/day: 0.50 Average packs/day: 0.5 packs/day for 30.0 years (15.0 ttl pk-yrs) Types: Cigarettes - Smokeless tobacco: Never - Tobacco comments: Quit 09/2024 Since 15 x 1 PPD Vaping Use - Vaping status: current everyday user - Substances: Nicotine Substance Use Topics - Alcohol use: Not Currently Comment: sober since 12/2022 - Drug use: No Physical Exam Vitals and nursing note reviewed. Constitutional: General: She is not in acute distress. Appearance: Normal appearance. She is not ill-appearing. HENT: Right Ear: Tympanic membrane, ear canal and external ear normal. Left Ear: Tympanic membrane, ear canal and external ear normal. Nose: Nose normal. Mouth/Throat: Mouth: Mucous membranes are moist. Pharynx: Oropharynx is clear. Uvula midline. Posterior oropharyngeal erythema present. No pharyngeal swelling, oropharyngeal exudate or uvula swelling. Tonsils: No tonsillar exudate or tonsillar abscesses. Eyes: General: Lids are normal. Vision grossly intact. Gaze aligned appropriately. No allergic shiner. Left eye: No discharge. Conjunctiva/sclera: Right eye: Right conjunctiva is not injected. No chemosis, exudate or hemorrhage. Left eye: Left conjunctiva is injected. No chemosis, exudate or hemorrhage. Pupils: Pupils are equal, round, and reactive to light. Cardiovascular: Rate and Rhythm: Normal rate and regular rhythm. Heart sounds: Normal heart sounds. Pulmonary: Effort: Pulmonary effort is normal. No respiratory distress. Breath sounds: Normal breath sounds. No wheezing or rales. Lymphadenopathy: Cervical: No cervical adenopathy. Skin: General: Skin is warm and dry. Findings: No erythema or rash. Neurological: Mental Status: She is alert. General: No acute distress. HEENT: Conjunctival injection of left eye; oropharynx mildly erythematous, no significant swelling; tympanic membranes normal bilaterally. CV: Regular rate and rhythm. Resp: Lungs clear to auscultation bilaterally. {1. Sore throat (J02.9) - Oropharyngeal examination reveals mild erythema, no significant swelling observed. - Rapid strep test negative. - Likely viral etiology; advised symptomatic management with Tylenol and ibuprofen as needed. - Recommended saline gargles to alleviate discomfort. - Provided work excuse note for today. 2. Conjunctivitis of left eye, unspecified conjunctivitis type (H10.9) - Conjunctival injection noted in the left eye, no purulent discharge observed. - Prescribed ophthalmic antibiotic drops to prevent spread. - Prescription sent to pharmacy. and Recording using ambient [employer] software for draft documentation of the visit was discussed with the patient/authorized compliance representative; all questions welcomed and answered. Patient/authorized compliance representative agreed to proceed - Follow-up with your PCP in 3-5 days if symptoms have (more content not included)... [place] [address]-08-2025 Note HNO ID: [id number] Author: PRISCILA CRISTINA APRN.CRNA Service: Anesthesiology Author Type: Nurse Outpatient Interviewing Clerk Type: Anesthesia Procedure Notes Filed: 10/10/2024 08:29 Note Text: ANESTHESIOLOGY PROCEDURE NOTE Airway General Information Procedure Start Time/Medication Administration: 10/10/2024 8:07 AM Procedure End Time: 10/10/2024 8:09 AM Patient location during procedure: OR Consent Obtained: Yes Patient identity confirmed: arm band Staffing Anesthesiologist: Bisi Boo DO INSTRUCTOR PILOT: Priscila Cristnia APRN.INSTRUCTOR PILOT Performed by: CANDE Indications and Patient Condition Indications for airway management: anesthesia and airway protection Preoxygenated: yes anesthesia circuit Patient position: sniffing Method: asleep Cricoid Pressure: Yes Difficult Mask: No Final Airway Details Final airway type: endotracheal airway Final Endotracheal Airway: ETT Cuffed: yes Successful intubation technique: direct laryngoscopy Devices used: intubating stylet Endotracheal tube insertion site: oral Blade: Joleen Blade size: #3 ETT size (mm): 7.5 Measured from: lips Measurement (cm): 22 Placement verified by: chest auscultation and capnometry Cormack-Lehane Classification: grade I - full view of glottis Number of attempts at approach: 1 Airway not difficult SIGNATURE: Priscila Cristina APRN.CRNA PATIENT NAME: Melva Kerns DATE: October 10, 2024 TIME: 8:28 AM CSN: [id number] [facility] 10-10-2024 Note HNO ID: [id number] Author: RADHA SEARS APRN.CNP Service: Anesthesiology Author Type: Nurse Practitioner Type: Nursing Progress Note Filed: 10/10/2024 07:06 Note Text: HANDP completed 10/08/24 by Tete Rendon APRN.CNP. [facility] 10-10-2024 Nurse Note H&P completed 10/08/24 by Tete Rendon APRN.CNP. [facility] 10-10-2024 Nurse Note Other: 0905 Dr. Porras at bedside speaking with patient post operatively. Dr. Porras wrote RX for patient Oxycodone IR 5mg q 8 hours for up to 3 days. [facility] 10-10-2024 Nurse Note H&P completed 10/08/24 by Tete Rendon APRN.CAN LABELER. Other: 0905 Dr. Porras at bedside speaking with patient post operatively. Dr. Porras wrote RX for patient Oxycodone IR 5mg q 8 hours for up to 3 days. documented in this encounter [facility] 10-08-2024 History and physical note Images from the original note were not included. [facility] HISTORY AND PHYSICAL EXAMINATION SERVICE DATE: 10/08/2024 SERVICE TIME: 11:20 AM PRIMARY CARE PHYSICIAN: No primary care provider on file. Assessment Patient has the following medical conditions which may affect ivory-operative course: Pre-op exam Medical conditions which may affect the perioperative course were address in today's visit. GERD (gastroesophageal reflux disease) Diet controlled Essential hypertension No medication Last 14 BP Last 14 Encounter BP Readings: Date: BP: 07/18/2024 129/98 07/18/2024 127/87 07/03/2024 104/68 05/21/2024 136/102 05/21/2024 123/98 04/09/2024 155/110 04/09/2024 133/93 12/05/2023 115/87 12/05/2023 121/84 09/20/2023 112/74 08/10/2023 127/92 08/10/2023 121/82 07/19/2023 126/78 07/05/2023 126/90 Portal vein thrombosis Patient reports - previously on Lovenox - 2021 -She reports she has not been on medication for over a year Alcohol-induced chronic pancreatitis (HCC) ERCP 10/10/24 Pancreatic duct stricture ERCP 10/10/24 Nicotine dependence, uncomplicated Reports quit cigarette 09/2024 Vaping nicotine daily Smoked cigarettes x 30 years 1 PPD Alcohol abuse Sober since 12/2022 ANESTHESIA FINDINGS: Intubation History: No history of difficult intubation. No abnormal airway history Significant Anesthesia Considerations: none Airway History: No history of difficult airway No abnormal airway history Farah Activity Status Index: METS: Climb a flight of stairs or walk up a hill (5.50 METs) DASI Score: 5.5 Patient denies any chest pain or undue shortness of breath with the above physical activity. Clinical Frailty Scale: 3. Well, with treated comorbid disease ARISCAT Score: Age: <=50 Preoperative SpO2: >=96% Respiratory infection in the last month: No Preoperative anemia: No Surgical incision: peripheral Duration of surgery: <2 hrs Emergency procedure: No ARISCAT Score: 0 I - PHYSICAL EVALUATION AIRWAY Patient intubated: No. DENTAL Dental findings: teeth intact, broken tooth and chipped. Dentures, upper: complete. II - ANESTHESIA PLAN Anesthetic Plan: other Beta Man Monitoring Plan Post Procedure Analgesic Plan Prepared for Surgery: CONSULTS: Patient does not require consults for optimization at this time Planned Anesthetic: other The Following Tests/Procedures Have Been Initiated: No orders of the defined types were placed in this encounter. REASON FOR VISIT: Melva Kerns is a 44 year old female who is scheduled for * No surgery found * at the request of Dr. Roel Mosley for routine H&P. My final recommendation will be communicated back to the requesting physician by way of shared medical record or letter. Subjective The patient has the following: COVID-19 Immunization Status Current Care Gaps Covid-19 Vaccine ( season) Never done No completion, postpone, frequency change, or communication history exists for this topic. CHIEF COMPLAINT: The reason for this visit is to perform a comprehensive review of the patient's past medical history, assess their current health status and obtain any additional testing required based on anesthesia guidelines. We will also identify any potential anesthesia problems or contraindications to the planned procedure. HPI: Melva Kerns is a 44 year old female who presents to [facility] for the above procedure. 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 Multiple ERCPs with stent placements. Last ERCP 07/2024. Reports cramping, pain , today 11/12. After discussing with surgeon, patient agrees to surgical intervention. Risk and benefits discussed by surgeon. Patient denies any other problems or concerns at this time. REVIEW OF SYSTEMS: General: Negative for: fever. Neurological: Negative for: delirium, dementia, seizures, TIA and strokes. Respiratory: Positive for: tobacco use. Negative for: asthma, COPD, pneumonia within 6 weeks, URI < 2 weeks and obstructive sleep apnea. Cardiovascular: Positive for: hypertension Negative for: atrial fibrillation, CAD, chest pain, DVT/PE and recent VT. GI: Positive for: GERD Negative for: abdominal pain, dysphagia, hepatitis, nausea, vomiting and ETOH >2 drinks/day. : Negative for: dysuria, hematuria, urinary incontinence and renal failure. TEACHER ASSISTANT: Negative for abnormal vaginal bleeding, abnormal vaginal discharge. Endocrine: No history of diabetes. Has not taken steroids within the past 30 days. No history of endocrinological symptoms or problems. Negative for: diabetes mellitus and hypothyroidism. Hematology: Negative for: anemia, factor V Leiden, hemophilia and von Willebrand disease. Oncology: No history of CA metastasis, chemo within 30 days, or radiotherapy within 90 days. No history of oncological symptoms or problems. Psych: No history of psychiatric symptoms or problems. Negative for: anxiety. Musculoskeletal: Negative for joint pain or swelling, back pain or muscle pain. Skin: Negative for lesions, rash and itching. Implanted Devices: Has implanted device Implants: stent. 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 Blood clot in vein Essential hypertension Pancreatic duct stricture (HCC) Portal vein thrombosis PAST SURGICAL HISTORY Procedure Laterality Date DILATION & CURETTAGE DX&/THER NONOBSTETRIC Dilation & curettage, X-2 LIG/TRNSXJ FLP TUBE ABDL/VAG APPR UNI/BI Tubal ligation PLACEMENT, BILE DUCT STENT 12/2023 FAMILY HISTORY Problem Relation Age of Onset Diabetes Maternal Uncle Asthma Brother Social History Tobacco Use Smoking status: Every Day Current packs/day: 0.50 Average packs/day: 0.5 packs/day for 30.0 years (15.0 ttl pk-yrs) Types: Cigarettes Smokeless tobacco: Never Tobacco comments: Quit 09/2024 Since 15 x 1 PPD Vaping Use Vaping status: current everyday user Substances: Nicotine Substance Use Topics Alcohol use: Not Currently Comment: sober since 12/2022 Drug use: No Prior to Admission medications as of 10/08/24 1124 Medication Sig Last Dose Taking BUTRANS 20 mcg/hour transdermal patch apply 1 patch topically to CLEAN, DRY, AND INTACT SKIN REMOVE AND REPLACE weekly Yes acetaminophen (TYLENOL) 500 mg tablet Take 2 tablets by mouth every 6 hours. Yes Medication Comments documented by Gomez Mcgowan DO on 08/14/2012 at 1101. No daily medications Medardo Gonzalez Lpn ALLERGIES No Known Allergies Objective PHYSICAL EXAM: General: alert and oriented and healthy appearance. Pertinent negatives noted - not distressed. Skin: normal color, no rash or lesions. HEENT: No additional findings for patient's neck. Cardiovascular: regular rate and rhythm, normal S1 and S2, no rub, murmurs, or gallop. Respiratory: normal breath sounds, no wheezes or crackles. No chest wall deformity or tenderness. Abdomen: bowel sounds present and soft. Pertinent negatives noted - not tender. Extremities: no deformity, no edema or tenderness, no joint swelling or clubbing. Neurological: normal cognition and motor skills. Gait normal. No weakness or sensory deficit. PAIN ASSESSMENT: Pain Pain Level: 6 VITALS: BP 108/73 Pulse 76 Temp 97.9 Resp 16 Ht 5' 4 (1.63m) Wt 137 lb (62.1kg) SpO2 99% LMP 09/09/2024 BMI 23.50 kg/(m^2). Diagnostic tests reviewed for today's visit: Lab [...] APTT No results within date range. ALT 13 U/L 07/03/2024 38 7 AST 16 U/L 07/03/2024 35 13 TBILI 0.2 mg/dL 07/03/2024 1.3 0.2 TSH No results within date range. Lab Value Units Date High Low HCGQT No results within date range. UHCG No results within date range. HCG, BODY* No results within date range. Lab Value Units Date High Low ABORHD No results within date range. ABSCREEN No results within date range. No results found for: HBA1C No results found for this or any previous visit (from the past 8760 hours). No results found for this or any previous visit (from the past 13257 hours). 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 Patient given verbal and written preop instructions and voices comprehension and compliance. I spent a total of 40 minutes on the date of the service which included preparing to see the patient, [id number] patient care, completing clinical documentation, obtaining and/or reviewing separately obtained history, performing a medically appropriate examination, and counseling and educating the patient/family/caregiver. SIGNATURE: Tete Rendon APRN.CNP PATIENT NAME: Melva Kerns DATE: October 08, 2024 TIME: 11:20 AM PAGER/CONTACT #: [facility] 10-08-2024 History and physical note Images from the original note were not included. [facility] HISTORY AND PHYSICAL EXAMINATION SERVICE DATE: 10/08/2024 SERVICE TIME: 11:20 AM PRIMARY CARE PHYSICIAN: No primary care provider on file. Assessment Patient has the following medical conditions which may affect ivory-operative course: Pre-op exam Medical conditions which may affect the perioperative course were address in today's visit. GERD (gastroesophageal reflux disease) Diet controlled Essential hypertension No medication Last 14 BP Last 14 Encounter BP Readings: Date: BP: 07/18/2024 129/98 07/18/2024 127/87 07/03/2024 104/68 05/21/2024 136/102 05/21/2024 123/98 04/09/2024 155/110 04/09/2024 133/93 12/05/2023 115/87 12/05/2023 121/84 09/20/2023 112/74 08/10/2023 127/92 08/10/2023 121/82 07/19/2023 126/78 07/05/2023 126/90 Portal vein thrombosis Patient reports - previously on Lovenox - 2021 -She reports she has not been on medication for over a year Alcohol-induced chronic pancreatitis (HCC) ERCP 10/10/24 Pancreatic duct stricture ERCP 10/10/24 Nicotine dependence, uncomplicated Reports quit cigarette 09/2024 Vaping nicotine daily Smoked cigarettes x 30 years 1 PPD Alcohol abuse Sober since 12/2022 ANESTHESIA FINDINGS: Intubation History: No history of difficult intubation. No abnormal airway history Significant Anesthesia Considerations: none Airway History: No history of difficult airway No abnormal airway history Farah Activity Status Index: METS: Climb a flight of stairs or walk up a hill (5.50 METs) DASI Score: 5.5 Patient denies any chest pain or undue shortness of breath with the above physical activity. Clinical Frailty Scale: 3. Well, with treated comorbid disease ARISCAT Score: Age: <=50 Preoperative SpO2: >=96% Respiratory infection in the last month: No Preoperative anemia: No Surgical incision: peripheral Duration of surgery: <2 hrs Emergency procedure: No ARISCAT Score: 0 I - PHYSICAL EVALUATION AIRWAY Patient intubated: No. DENTAL Dental findings: teeth intact, broken tooth and chipped. Dentures, upper: complete. II - ANESTHESIA PLAN Anesthetic Plan: other Beta Man Monitoring Plan Post Procedure Analgesic Plan Prepared for Surgery: CONSULTS: Patient does not require consults for optimization at this time Planned Anesthetic: other The Following Tests/Procedures Have Been Initiated: No orders of the defined types were placed in this encounter. REASON FOR VISIT: Melva Kerns is a 44 year old female who is scheduled for * No surgery found * at the request of Dr. Roel Mosley for routine H&P. My final recommendation will be communicated back to the requesting physician by way of shared medical record or letter. Subjective The patient has the following: COVID-19 Immunization Status Current Care Gaps Covid-19 Vaccine ( season) Never done No completion, postpone, frequency change, or communication history exists for this topic. CHIEF COMPLAINT: The reason for this visit is to perform a comprehensive review of the patient's past medical history, assess their current health status and obtain any additional testing required based on anesthesia guidelines. We will also identify any potential anesthesia problems or contraindications to the planned procedure. HPI: Melva Kerns is a 44 year old female who presents to [facility] for the above procedure. 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 Multiple ERCPs with stent placements. Last ERCP 07/2024. Reports cramping, pain , today 11/12. After discussing with surgeon, patient agrees to surgical intervention. Risk and benefits discussed by surgeon. Patient denies any other problems or concerns at this time. REVIEW OF SYSTEMS: General: Negative for: fever. Neurological: Negative for: delirium, dementia, seizures, TIA and strokes. Respiratory: Positive for: tobacco use. Negative for: asthma, COPD, pneumonia within 6 weeks, URI < 2 weeks and obstructive sleep apnea. Cardiovascular: Positive for: hypertension Negative for: atrial fibrillation, CAD, chest pain, DVT/PE and recent VT. GI: Positive for: GERD Negative for: abdominal pain, dysphagia, hepatitis, nausea, vomiting and ETOH >2 drinks/day. : Negative for: dysuria, hematuria, urinary incontinence and renal failure. TEACHER ASSISTANT: Negative for abnormal vaginal bleeding, abnormal vaginal discharge. Endocrine: No history of diabetes. Has not taken steroids within the past 30 days. No history of endocrinological symptoms or problems. Negative for: diabetes mellitus and hypothyroidism. Hematology: Negative for: anemia, factor V Leiden, hemophilia and von Willebrand disease. Oncology: No history of CA metastasis, chemo within 30 days, or radiotherapy within 90 days. No history of oncological symptoms or problems. Psych: No history of psychiatric symptoms or problems. Negative for: anxiety. Musculoskeletal: Negative for joint pain or swelling, back pain or muscle pain. Skin: Negative for lesions, rash and itching. Implanted Devices: Has implanted device Implants: stent. 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 Blood clot in vein Essential hypertension Pancreatic duct stricture (HCC) Portal vein thrombosis PAST SURGICAL HISTORY Procedure Laterality Date DILATION & CURETTAGE DX&/THER NONOBSTETRIC Dilation & curettage, X-2 LIG/TRNSXJ FLP TUBE ABDL/VAG APPR UNI/BI Tubal ligation PLACEMENT, BILE DUCT STENT 12/2023 FAMILY HISTORY Problem Relation Age of Onset Diabetes Maternal Uncle Asthma Brother Social History Tobacco Use Smoking status: Every Day Current packs/day: 0.50 Average packs/day: 0.5 packs/day for 30.0 years (15.0 ttl pk-yrs) Types: Cigarettes Smokeless tobacco: Never Tobacco comments: Quit 09/2024 Since 15 x 1 PPD Vaping Use Vaping status: current everyday user Substances: Nicotine Substance Use Topics Alcohol use: Not Currently Comment: sober since 12/2022 Drug use: No Prior to Admission medications as of 10/08/24 1124 Medication Sig Last Dose Taking BUTRANS 20 mcg/hour transdermal patch apply 1 patch topically to CLEAN, DRY, AND INTACT SKIN REMOVE AND REPLACE weekly Yes acetaminophen (TYLENOL) 500 mg tablet Take 2 tablets by mouth every 6 hours. Yes Medication Comments documented by Gomez Mcgowan DO on 08/14/2012 at 1101. No daily medications Medardo Gonzalez Lpn ALLERGIES No Known Allergies Objective PHYSICAL EXAM: General: alert and oriented and healthy appearance. Pertinent negatives noted - not distressed. Skin: normal color, no rash or lesions. HEENT: No additional findings for patient's neck. Cardiovascular: regular rate and rhythm, normal S1 and S2, no rub, murmurs, or gallop. Respiratory: normal breath sounds, no wheezes or crackles. No chest wall deformity or tenderness. Abdomen: bowel sounds present and soft. Pertinent negatives noted - not tender. Extremities: no deformity, no edema or tenderness, no joint swelling or clubbing. Neurological: normal cognition and motor skills. Gait normal. No weakness or sensory deficit. PAIN ASSESSMENT: Pain Pain Level: 6 VITALS: BP 108/73 Pulse 76 Temp 97.9 Resp 16 Ht 5' 4 (1.63m) Wt 137 lb (62.1kg) SpO2 99% LMP 09/09/2024 BMI 23.50 kg/(m^2). Diagnostic tests reviewed for today's visit: Lab [...] APTT No results within date range. ALT 13 U/L 07/03/2024 38 7 AST 16 U/L 07/03/2024 35 13 TBILI 0.2 mg/dL 07/03/2024 1.3 0.2 TSH No results within date range. Lab Value Units Date High Low HCGQT No results within date range. UHCG No results within date range. HCG, BODY* No results within date range. Lab Value Units Date High Low ABORHD No results within date range. ABSCREEN No results within date range. No results found for: HBA1C No results found for this or any previous visit (from the past 8760 hours). No results found for this or any previous visit (from the past 12403 hours). 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 Patient given verbal and written preop instructions and voices comprehension and compliance. I spent a total of 40 minutes on the date of the service which included preparing to see the patient, [id number] patient care, completing clinical documentation, obtaining and/or reviewing separately obtained history, performing a medically appropriate examination, and counseling and educating the patient/family/caregiver. SIGNATURE: Tete Rendon APRN.CNP PATIENT NAME: Melva Kerns DATE: October 08, 2024 TIME: 11:20 AM PAGER/CONTACT #: documented in this encounter [facility] 10-07-2024 Instructions Tete Rendon APRN.CNP - 10/07/2024 1:12 PM EDT PATIENT PREOPERATIVE INSTRUCTIONS Your surgeon has scheduled for your procedure at this surgery center: [address] [place] [address] Parking [facility] Supervisor Center ([facility]). 3rd Floor Endoscopy Suite [facility]- [phone] [facility] [phone]. If you need to cancel your appointment call [phone]. Park in the outpatient services EAST parking deck attached to the Parking Lot Supervisor Center. Check in at patient registration on the 1st Floor First. Registration will give you an armband & Stickers, Then you can come up to Endoscopy located on the 3rd floor. Please read below carefully for your personalized instructions. Surgery Date:10/10/2024 Your surgeon's office will provide you with your ARRIVAL TIME for surgery. - If you have not received an arrival time by the afternoon before your surgery date, please follow up with your surgeon's office. - If you are scheduled for Monday surgery, please make sure you have your arrival time by Monday afternoon. - Please be aware that emergency situations arise, which may delay or change your surgical time. If this happens, your surgeon's office will notify you as soon as possible and regret any inconvenience. Dietary Restrictions: - Nothing to eat or drink after midnight except for a sip of water with approved medications. This is important because otherwise your surgery may have to be cancelled. Blood Thinning Medications: - Stop NSAIDS (Ibuprofen, Advil, Aleve, Motrin, Celebrex, Mobic, etc.) 7 days before surgery, or as directed by your surgeon. You may take Tylenol (Acetaminophen) or any of your pain medications that do not contain aspirin or NSAIDS as needed. IF YOU TAKE ANY OF THE FOLLOWING BLOOD THINNERS, PLEASE CONTACT YOUR SURGEON AND THE PHYSICIAN WHO PRESCRIBES IT FOR YOU IN ORDER TO GET PERIOPERATIVE INSTRUCTIONS SOON POSSIBLE. BLOOD THINNERS: Aspirin , Coumadin, Plavix, Eliquis, Pradaxa, Xarelto, Lovenox, Brilinta, Effient, Savaysa, Arixtra, etc - Stop Vitamin E, fish oil, multivitamins, Marijuana, CBD oil and other over the counter herbals and dietary supplements 7 days before surgery. - This would not apply to cancer patients who are prescribed Marinol or any other prescription form on marijuana or CBD. Medications: Pre Surgery Med Instructions Medication instructions acetaminophen (TYLENOL) 500 mg tablet Continue as prescribed. BUTRANS 20 mcg/hour transdermal patch DO NOT TAKE THE MORNING OF SURGERY. Approved medications to take the morning of surgery with a sip of water: BP, Heart, seizure, thyroid, psych and pain medications. Use inhalers as prescribed. Please bring inhalers. HOLD - KADY inhibitors (Angiotensin-converting enzyme inhibitors) and ARBs (Angiotensin II receptor blockers) Day of surgery. Use inhalers as prescribed. Please bring inhalers. Weight loss medications: - Sympathomimetics such as Adipex-P (Phentermine): Stop 4 days before surgery. - Contrave (Naltrexone/Bupropion) Hold 2-3 days. - Qsymia (Phentermine/Topiramate - Please contact your prescribing provider for Pre op directions. (Depending on the patients dose this medication may need tapered off. They should get pre-op directions from their prescribing provider.) - GLP-1 Agonists (oral and injectables) Hold 7 days - Adlyxin (lixisenatide), Bydureon BCise (exenatide suspension), Byetta (exenatide), Mounjaro (tirzepatide), Ozempic (semaglutide injection), Rybelsus (semaglutide tablets), Tanzeum (albiglutide), Trulicity (dulaglutide), Victoza (liraglutide), Wegovy (semaglutide), Saxenda (liraglutide), Xultophy (degludec/liraglutide) If you start any new medications after today's visit, please contact the surgeon's office. Important Reminders: - If you have a stimulator, implant or pump that requires a remote, please bring the remote with you day of surgery. - If you use CPAP/BIPAP, bring the machine with you to the surgery center. - If you are prescribed inhalers for breathing, continue using them AND bring them to the surgery center. - Candy, mints, gum and tobacco products are NOT permitted the morning of surgery. - Hearing aids, dentures and glasses may be worn the morning of surgery. - NO jewelry, body piercings, makeup, hairpins or contacts are to be worn the day of surgery. - Oral hygiene and a shower or bath is required the evening before or the morning of surgery. - NO lotion, creams, powders or deodorants on the skin the day of surgery. - Wear loose, comfortable clothing that will accommodate bandages. - Your length of stay will be determined by your surgeon. - You will need to have someone else (Family or friend) to drive you home once discharged from the hospital. You cannot drive yourself home after surgery. - YOU MUST HAVE A RESPONSIBLE BEAM BUILDER HELPER TAKE YOU HOME. A WORKDAY SENIOR ASSOCIATE, CAB OR UBER BEAM BUILDER HELPER CANNOT BE MADE A RESPONSIBLE BEAM BUILDER HELPER. - If you are undergoing an outpatient procedure you must have someone drive you home and stay with you for the first 24 hours. Your ride home must be at least 18 years old or older. Your surgery may be cancelled if you do not have someone to drive you home or take care of you. - You cannot stay in a hotel alone after an outpatient surgery. - It is recommended patients have a 72-hour period between getting their vaccine and the date of surgery. Visitation: [facility] in [place] Visitation hours: 7 AM to 9 PM. Pre-Surgery Unit - Patients may have up to 2 visitors at a time. PACU recovery Unit - Patients may have up to 1-2 visitors at a time. If you develop symptoms such as a fever, cold, or flu, or have other changes to your health within TWO DAYS of scheduled surgery or the morning of surgery, please contact the surgeon's office. Personal Belongings: - Leave ALL valuables and money at home or with family members. - You will need a form of ID and insurance card to check in the morning of surgery. - If you already have an Advance Directive, please fax a copy to [phone] or [place] SCHAEFER at [phone] or email to for it to be added to your chart. If you do not have an Advance Directive, you can find the appropriate form and more information at [email or web address]. We recommend that you complete the Advance Directive form found on the website and bring it with you the day of your surgery. It can be witnessed and scanned into your chart that day. Tete Rendon APRN.CNP 10/08/24 documented in this encounter [facility] 09-09-2024 Telephone encounter Note Called pt to schedule ERCP with stent exchange with Dr Mosley 12 weeks after her 07/18 ERCP. Sched for 5/8 [facility] 09-09-2024 Miscellaneous Notes Called pt to schedule ERCP with stent exchange with Dr Mosley 12 weeks after her 07/18 ERCP. Sched for 5/8 documented in this encounter [facility] 08-06-2024 Telephone encounter Note Pre op call - LM on VM [facility] 08-06-2024 Miscellaneous Notes Pre op call - LM on VM documented in this encounter [facility] 07-18-[address] Dominguez notified of continued pain and orders given. Encouraged to speak with physician who orders her chronic pain medication regarding procedures and discontinuing pre procedure and repeated episodes of post-op pain. Stated understanding. [facility] 07-18-[address] Dominguez notified of continued pain and orders given. Encouraged to speak with physician who orders her chronic pain medication regarding procedures and discontinuing pre procedure and repeated episodes of post-op pain. Stated understanding. Dr. Mosley notified of continued pain and pts request for prescription for home. Wrote prescription for pt. documented in this encounter [facility] 07-18-[address] Mosley notified of continued pain and pts request for prescription for home. Wrote prescription for pt. [facility] 07-18-2024 Note HNO ID: [id number] Author: LOUISE FREITAS APRN.CRNA Service: ? Author Type: Nurse Outpatient Interviewing Clerk Type: Anesthesia Procedure Notes Filed: 07/18/2024 08:39 Note Text: ANESTHESIOLOGY PROCEDURE NOTE Airway General Information Procedure Start Time/Medication Administration: 07/18/2024 8:15 AM Procedure End Time: 07/18/2024 8:16 AM Patient location during procedure: OR Timeout Performed Pre-procedure: timeout performed Consent Obtained: Yes Patient identity confirmed: arm band Staffing Anesthesiologist: Prakash Dominguez MD INSTRUCTOR PILOT: Louise Freitas APRN.INSTRUCTOR PILOT Performed by: anesthesiologist Indications and Patient Condition Indications for airway management: anesthesia and airway protection Preoxygenated: yes anesthesia circuit and Ambu Patient position: sniffing Method: asleep Cricoid Pressure: No Manual In-Line Stabilization: No Difficult Mask: No Final Airway Details Final airway type: endotracheal airway Final Endotracheal Airway: ETT Cuffed: yes Successful intubation technique: video laryngoscopy Devices used: [employer] Endotracheal tube insertion site: oral Blade size: #3 ETT size (mm): 7.0 Measured from: lips Measurement (cm): 20 Placement verified by: chest auscultation and capnometry Cormack-Lehane Classification: grade I - full view of glottis Number of attempts at approach: 1 Failed airway: no Unrecognized esophageal intubation: no Airway not difficult SIGNATURE: Louise Freitas APRN.INSTRUCTOR PILOT PATIENT NAME: Melva Kerns DATE: July 18, 2024 TIME: 8:37 AM CSN: [id number] [facility] 07-18-2024 History of Present illness Narrative Summary: PAT HISTORY AND PHYSICAL EXAMINATION SERVICE DATE: 07/18/2024 SERVICE TIME: 729 PRIMARY CARE PHYSICIAN: No primary care provider [...] Chronic Pancreatitis (Hcc) Gerd (Gastroesophageal Reflux Disease) Abdominal Pain Acute On Chronic Pancreatitis (Hcc) Alcohol-Induced Acute Pancreatitis Biliary Stricture Tobacco Abuse Pre-Op Exam Pancreatic Duct Stricture Subjective CHIEF COMPLAINT: Preoperative Examination HPI: 44 year old female reports for PAT. 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 Multiple ERCPs with stent placements. Last ERCP 05/2024. +Daily cramping- followed by pain management. Procedure discussed with Dr. Mosley- patient agreed. METS: Climb a flight of stairs or walk up a hill (5.50 METs) Patient denies any CP/SOB with above activity. PAST MEDICAL HISTORY Diagnosis Date Bile duct disease Blood clot in vein Essential hypertension PAST SURGICAL HISTORY Procedure Laterality Date DILATION & CURETTAGE DX&/THER NONOBSTETRIC Dilation & curettage, X-2 LIG/TRNSXJ FLP TUBE ABDL/VAG APPR UNI/BI Tubal ligation PLACEMENT, BILE DUCT STENT 12/2023 FAMILY HISTORY Problem Relation Age of Onset Diabetes Maternal Uncle Asthma Brother SOCIAL HISTORY: Social History Tobacco Use Smoking status: Every Day Current packs/day: 0.50 Average packs/day: 0.5 packs/day for 30.0 years (15.0 ttl pk-yrs) Types: Cigarettes Smokeless tobacco: Never Vaping Use Vaping status: Never Used Substance Use Topics Alcohol use: Not Currently Comment: sober since 12/2022 Drug use: No Prior to Admission medications as of 07/18/24 0738 Medication Sig Last Dose Taking BUTRANS 20 mcg/hour transdermal patch apply 1 patch topically to CLEAN, DRY, AND INTACT SKIN REMOVE AND REPLACE weekly Yes acetaminophen (TYLENOL) 500 mg tablet Take 2 tablets by mouth every 6 hours. 07/17/2024 Evening Yes Medication Comments documented by Gomez Mcgowan DO on 08/14/2012 at 1101. No daily medications Medardo Gonzalez Lpn ALLERGIES No Known Allergies REVIEW OF SYSTEMS: PAIN ASSESSMENT: Pain Pain Level: 6 Acceptable level: 3 Pain Location: Abdomen Pain Assessment: Assessment Description: Other: See comment (twisting) Duration: Continuous Intervention/Comfort measure: Reposition, Relaxation Tool: Verbal (Numeric Rating or Visual Analog Scale) General: (-) fever, chills, and unexpected weight change. Neuro: (-) dizziness and headaches. Respiratory: (-) SOB. +Smoker Cardiovascular: (-) CP and palpitations. +HTN GI: See HPI. : (-) dysuria. Endocrine: (-) diabetes, thyroid conditions. Hematology: (-) history of bleeding or clotting disorder, autoimmune disorders. Psych: (-) anxiety/depression. Musculoskeletal: (-) joint pain and swelling. Skin: (-) open sores and rashes. Objective PHYSICAL EXAM: VITALS: BP 104/76 Pulse 78 Temp (Src) 98.8 (Temporal) Resp 12 Ht 5' 4.016 (1.63m) Wt 133 lb (60.3kg) SpO2 96% LMP 08/02/2023 BMI 22.82 kg/(m^2). O2 Therapy: Room Air General: NAD. Cooperative. Skin: Skin is warm, no rashes, and no open sores. HEENT: Normocephalic. Cardiovascular: Normal S1 & S2. RRR. Lungs: CTA Bilaterally. No respiratory distress. Abdomen: [...] APTT No results within date range. ALT 13 U/L 07/03/2024 38 7 AST 16 U/L 07/03/2024 35 13 TBILI 0.2 mg/dL 07/03/2024 1.3 0.2 TSH No results within date range. Lab Value Units Date High Low HCGQT No results within date range. UHCG No results within date range. HCG, BODY* No results within date range. Lab Value Units Date High Low ABORHD No results within date range. ABSCREEN No results within date range. No results found for: HBA1C Most recent labs Assessment/Plan Patient has the following medical conditions: Problem List Items Addressed This Visit Cardiovascular Essential hypertension Current Assessment & Plan -No medication. -Diet and lifestyle modification. -Controlled during PAT Gastrointestinal Portal vein thrombosis Current Assessment & Plan -Patient was previously on Lovenox - 2021 -She reports she has not been on medication for over a year. Endocrinology Alcohol-induced chronic pancreatitis (HCC) Current Assessment & Plan -ERCP 07/18/2024 Pancreatic duct stricture Relevant Orders ERCP Psychiatry Alcohol abuse Current Assessment & Plan -Previous daily alcohol use. -Sober since 12/2022. -She reports that she used to drink less than a fifth of vodka a day. Other Nicotine dependence, uncomplicated Current Assessment & Plan -Current everyday cigarette smoker 1/2 PPD -15 pack years. -Vaping- occasional- nicotine Pre-op exam - Primary Current Assessment & Plan -Identify any potential anesthesia problems or contraindications to the planned procedure. Diagnosis: Pancreatic duct stricture [K86.89] Planned Procedure: ERCP The Following Tests/Procedures Have Been Initiated: IV start and Maintenance fluid for the procedure. ANESTHESIA FINDINGS: Significant Anesthesia Considerations: None Planned Anesthetic: MAC I spent a total of 20 minutes on the date of the service which included preparing to see the patient, [id number] patient care, and completing clinical documentation. Instructions Given to Patient: Patient given verbal preop instructions and voices comprehension and compliance. SIGNATURE: Blair Aggarwal APRN.CNP PATIENT NAME: Melva Kerns DATE: July 18, 2024 TIME: 10:39 AM PAGER/CONTACT #: documented in this encounter [facility] 07-18-2024 Note HNO ID: [id number] Author: BLAIR AGGARWAL APRN.CNP Service: Anesthesiology Author Type: Nurse Practitioner Type: Progress Notes Filed: 07/18/2024 07:53 Note Text: Summary: PAT HISTORY AND PHYSICAL EXAMINATION SERVICE DATE: 07/18/2024 SERVICE TIME: 0730 PRIMARY CARE PHYSICIAN: No primary care provider [...] Chronic Pancreatitis (Hcc) Gerd (Gastroesophageal Reflux Disease) Abdominal Pain Acute On Chronic Pancreatitis (Hcc) Alcohol-Induced Acute Pancreatitis Biliary Stricture Tobacco Abuse Pre-Op Exam Pancreatic Duct Stricture Subjective CHIEF COMPLAINT: Preoperative Examination HPI: 44 year old female reports for PAT. 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 Multiple ERCPs with stent placements. Last ERCP 05/2024. +Daily cramping- followed by pain management. Procedure discussed with Dr. Mosley- patient agreed. METS: Climb a flight of stairs or walk up a hill (5.50 METs) Patient denies any CP/SOB with above activity. PAST MEDICAL HISTORY Diagnosis Date Bile duct disease Blood clot in vein Essential hypertension PAST SURGICAL HISTORY Procedure Laterality Date DILATION AND CURETTAGE DXAND/THER NONOBSTETRIC Dilation AND curettage, X-2 LIG/TRNSXJ FLP TUBE ABDL/VAG APPR UNI/BI Tubal ligation PLACEMENT, BILE DUCT STENT 12/2023 FAMILY HISTORY Problem Relation Age of Onset Diabetes Maternal Uncle Asthma Brother SOCIAL HISTORY: Social History Tobacco Use Smoking status: Every Day Current packs/day: 0.50 Average packs/day: 0.5 packs/day for 30.0 years (15.0 ttl pk-yrs) Types: Cigarettes Smokeless tobacco: Never Vaping Use Vaping status: Never Used Substance Use Topics Alcohol use: Not Currently Comment: sober since 12/2022 Drug use: No Prior to Admission medications as of 07/18/24 0738 Medication Sig Last Dose Taking BUTRANS 20 mcg/hour transdermal patch apply 1 patch topically to CLEAN, DRY, AND INTACT SKIN REMOVE AND REPLACE weekly Yes acetaminophen (TYLENOL) 500 mg tablet Take 2 tablets by mouth every 6 hours. 07/17/2024 Evening Yes Medication Comments documented by Gomez Mcgowan DO on 08/14/2012 at 1101. No daily medications Medardo Gonzalez Lpn ALLERGIES No Known Allergies REVIEW OF SYSTEMS: PAIN ASSESSMENT: Pain Pain Level: 6 Acceptable level: 3 Pain Location: Abdomen Pain Assessment: Assessment Description: Other: See comment (twisting) Duration: Continuous Intervention/Comfort measure: Reposition, Relaxation Tool: Verbal (Numeric Rating or Visual Analog Scale) General: (-) fever, chills, and unexpected weight change. Neuro: (-) dizziness and headaches. Respiratory: (-) SOB. +Smoker Cardiovascular: (-) CP and palpitations. +HTN GI: See HPI. : (-) dysuria. Endocrine: (-) diabetes, thyroid conditions. Hematology: (-) history of bleeding or clotting disorder, autoimmune disorders. Psych: (-) anxiety/depression. Musculoskeletal: (-) joint pain and swelling. Skin: (-) open sores and rashes. Objective PHYSICAL EXAM: VITALS: BP 104/76 Pulse 78 Temp (Src) 98.8 (Temporal) Resp 12 Ht 5' 4.016 (1.63m) Wt 133 lb (60.3kg) SpO2 96% LMP 08/02/2023 BMI 22.82 kg/(m2). O2 Therapy: Room Air General: NAD. Cooperative. Skin: Skin is warm, no rashes, and no open sores. HEENT: Normocephalic. Cardiovascular: Normal S1 AND S2. RRR. Lungs: CTA Bilaterally. No respiratory distress. Abdomen: [...] date range. APTT No results within date r (more content not included)... [facility] 07-03-2024 Instructions Roel Mosley MD - 07/03/2024 2:57 PM EST COLONOSCOPY BOWEL PREPARATION INSTRUCTIONS GOLYTELY/NULYTELY/TRILYTE/COLYTE Your doctor has scheduled you for a colonoscopy. To have a successful colonoscopy, you must have a clean colon, that is empty. A clean colon allows your doctor to see the entire colon & diagnose issues like polyps or cancer. For doctors, a clean colon is like driving on a chance day; a dirty colon like driving in a storm. It is very important that you follow these instructions exactly, or your colonoscopy might not be as effective, could be canceled, and you may need to do the bowel prep and the colonoscopy again. TRANSPORTATION REQUIREMENTS You are receiving IV sedation. For your safety, a responsible adult escort must accompany you to and from your procedure: Your adult escort MUST be present with you at check-in for your colonoscopy. Your adult escort MUST remain in the endoscopy area until you are discharged. Your adult escort MUST transport you home once you are discharged. You are NOT allowed to operate any form of transportation (i.e. drive a car, bicycle, etc.) or leave the Endoscopy Center ALONE. It is not safe to do so. If you cannot meet these requirements, your procedure will be canceled. MEDICATION REQUIREMENTS For your safety, certain medications will need to be stopped or adjusted before you can have your procedure: BLOOD THINNERS: If you take blood thinners, such as Coumadin (warfarin), Plavix (clopidogrel), Ticlid (ticlopidine hydrochloride), Agrylin (anagrelide), Xarelto (Rivaroxaban), Pradaxa (Dabigatran), Eliquis (Apixaban), or Effient (Prasugrel), contact the physician who is prescribing these medications at least 2 weeks prior to your procedure to discuss any necessary adjustments. DIABETES: If you take medications for diabetes, your dosage may need to be adjusted. If you are being treated for diabetes with insulin, diabetic pills, or other injectable medications do not take your REGULAR dose after midnight on the day of your procedure. If you are taking any other types of insulin such as Lantus, Humalog, NPH (long-acting insulin), or 70/30 insulin, take half your normal dose the day before your procedure. DIABETES/WEIGHT MANAGEMENT: If you take medications for weight-loss, your dosage may need to be adjusted Contact the doctor who prescribes this medication for further instructions. If you take medications for weight-loss like semaglutide (Ozempic, Wegovy, Rybelsus), dulaglutide (Trulicity), liraglutide (Victoza, Saxenda), exenatide (Byetta, Bydureon), or lixisenatide (Adylyxin), stop your medication 1 week prior to your procedure. If you take medications like canagliflozin (Invokana), dapagliflozin (Farxiga, Forxiga), empagliflozin (Jardiance), stop your medication 3 days prior to your procedure. If you take ertugliflozin (Steglatro) stop your medication 4 days prior to your procedure. IRON: If you take iron pills, STOP them 1 week BEFORE your procedure, may resume after. OTHER MEDS: May take all other medications (including aspirin, antibiotics, water pills / diuretics like Lasix or Metolozone, blood pressure meds, etc.) at their usual scheduled time with a sip of water. DIET REQUIREMENTS The day before your colonoscopy, you may have a clear liquid diet (see below). The day of your colonoscopy, you may continue a clear liquid diet until 3 hours before your colonoscopy. Within 3 hours of your colonoscopy, take only any medications (as above) with a sip of water. Clear Liquid Diet Broth (chicken, beef or vegetable broth or bullion. Just the broth, no solids). Water Coffee or Tea (NO milk or creamer), but sugar and sugar substitutes are allowed. Clear liquids including clear, yellow, green, blue (NO red, NO orange, NO purple) Sodas / soft drinks Gatorade or other sports drinks Adria-Aid or flavored drinks Plain Jell-O or other gelatins Fruit juice (strained; no-pulp) Popsicles or hard candy BOWEL PREPARATION (GOLYTELY/NULYTELY/TRILYTE/COLYTE ) Split Dosing Bowel Prep: This means drinking your bowel prep in two doses. Split dosing helps clean your colon better and makes it less likely that your procedure will be canceled. Fill your prescription for Golytely/Nulytely/Trilyte/Colyte: The afternoon before your colonoscopy, mix the solution and refrigerate. You may add the flavor pack (if present) that came with the bowel preparation. Do not add ice, sugar, or other flavorings to the solution. You will drink your prep in two doses, by several hours. On the evening before your colonoscopy: 1. 6 PM drink the first half of the bowel preparation solution. Drink one 8-ounce glass every 15 minutes. 2. Six hours before your colonoscopy, drink the second half of the solution. Drink one 8-ounce glass every 15 minutes. 3. You may continue a clear liquid diet until 3 hours before your colonoscopy. Bowel prep can work differently from person to person. Some people's bowels move slowly and they may need different instructions. Please see your doctor in office or virtually for personalized bowel prep instructions if you have: Medical condition that needs special accommodations Had a poor bowel prep results or failed bowel prep attempts in the past. Had difficulty with anesthesia during the procedure. FREQUENTLY ASKED QUESTIONS Q: What if I suffer from constipation? A: Recommend taking extra laxatives to resolve your constipation days prior to entering the bowel prep day. Q: What if have had prior poor preps results in past? A: Contact your physician as you will likely need additional bowel prep instructions. Q: What if I have motility issues like Parkinson's, MS (multiple sclerosis), wheelchair dependent, etc.? or on medications that slow bowel emptying (narcotics, gabapentin, anticholinergic medications etc.) A: Contact your physician as you will likely need extra time and additional laxatives to complete your bowel prep. Q: What if I cannot drink large volume of liquid? A: Start your prep 2-3 hours earlier to allow yourself more time to complete the entire prep. Q: What if I can't finish my bowel prep? A: If you cannot finish your entire bowel prep, it is likely that your colonoscopy will need to be rescheduled due to poor prep quality. Q: What if I had bariatric surgery? Do I still have to complete the entire prep? A: Yes, gastric bypass surgery involves the stomach & small bowel. You may need to drink smaller amounts, slower (may need more time to complete your bowel prep). Gastric bypass does not alter the length of your colon so you will need to complete the entire bowel prep, it may just take longer time to complete it. Q: What if I am on dialysis? A: Please consult your twisting frame changer prior to scheduling to get instructions pertinent to you. In general, dialysis patients take the [employer] bowel prep and have the procedure same day of their dialysis (colonoscopy in AM, dialysis in PM). Q: How do I know if something is considered as clear liquid diet? A: If you can pour it in a glass and you can see through it, it is considered clear liquid Q: Can I eat nuts, seeds, beans, popcorn, dried fruits, vegetables & fruits that have skin peel? A: No, you will need to not eat these items starting 3 days prior to procedure. Q: Can I take Uber/Lyft/taxi/bus home? A: An adult MUST be present with you at check-in for your colonoscopy and remain in the endoscopy area until you are discharged. You can take Uber home only if this adult escort is with you at check in, remain in the endoscopy area until you are discharged, and takes the Uber with you to home. Q: Can I sleep it off here and drive myself home? A: No, you must have an adult with you at time of procedure check in, remain in the endoscopy center during your procedure, and drive you home. You cannot drive a vehicle after your procedure the rest of the day. documented in this encounter [facility] 07-03-2024 Note HNO ID: [id number] Author: ROEL MOSLEY MD Service: ? Author Type: Physician Type: Progress Notes Filed: 07/03/2024 16:02 Note Text: CHIEF COMPLAINT: Patient presents with: Recheck: Needs seen before next ERCP HPI: Melva Kerns is a 44 year old female with a PMHx of Alcohol induced chronic pancreatitis who presents for follow up. Patient has history of chronic pancreatitis with resultant pancreatic and biliary strictures. She had multiple ERCPs with biliary and pancreatic stent placement. On her last ERCP, she had a pancreatic stent exchange but the biliary stent was removed and not replaced. She has been doing well overall. States her abdominal pain is not as bad as it used. Smokes tobacco 1 PPD but recently switch to vaping. Denies any alcohol use. Current Outpatient Medications Medication Sig BUTRANS 20 mcg/hour transdermal patch apply 1 patch topically to CLEAN, DRY, AND INTACT SKIN REMOVE AND REPLACE weekly acetaminophen (TYLENOL) 500 mg tablet Take 2 tablets by mouth every 6 hours. No current facility-administered medications for this visit. ALLERGIES No Known Allergies Social History Tobacco Use Smoking status: Every Day Current packs/day: 0.50 Average packs/day: 0.5 packs/day for 30.0 years (15.0 ttl pk-yrs) Types: Cigarettes Smokeless tobacco: Never Vaping Use Vaping status: Never Used Substance Use Topics Alcohol use: Not Currently Comment: sober since 12/2022 Drug use: No PAST MEDICAL HISTORY Diagnosis Date Bile duct disease Blood clot in vein Essential hypertension PAST SURGICAL HISTORY Procedure Laterality Date DILATION AND CURETTAGE DXAND/THER NONOBSTETRIC Dilation AND curettage, X-2 LIG/TRNSXJ FLP TUBE ABDL/VAG APPR UNI/BI Tubal ligation PLACEMENT, BILE DUCT STENT 12/2023 FAMILY HISTORY Problem Relation Age of Onset Diabetes Maternal Uncle Asthma Brother REVIEW OF SYSTEMS Review of Systems Gastrointestinal: Positive for abdominal pain and constipation. All other systems reviewed and are negative. PHYSICAL EXAM BP 104/68 Pulse 90 Ht 5' 4 (1.63m) Wt 133 lb (60.3kg) LMP 08/02/2023 BMI 22.82 kg/(m2). Physical Exam General: Awake and alert, NAD. Mouth: Mucous membranes moist. Respiratory: Even, non-labored. Heart: Regular rate. Abdomen: Soft, non-tender, no distention. Extremities: No edema. Neurological: Grossly normal. Skin: Warm and dry. ASSESSMENT/Plan: Melva Kerns is a 44 year old female with a PMHx of Alcohol induced chronic pancreatitis who presents for follow up. #Chronic Pancreatitis - Denies any alcohol use - Advised to abstain from alcohol - Will check fecal elastase to evaluate for pancreatic insufficiency - Will check hepatic function panel to evaluate for symptomatic biliary stricture - Continue endoscopic therapy as scheduled RCT in 6 months Roel Mosley MD DATE: 07/03/24 TIME: 2:30 PM [facility] 07-03-2024 History of Present illness Narrative CHIEF COMPLAINT: Patient presents with: Recheck: Needs seen before next ERCP HPI: Melva Kerns is a 44 year old female with a PMHx of Alcohol induced chronic pancreatitis who presents for follow up. Patient has history of chronic pancreatitis with resultant pancreatic and biliary strictures. She had multiple ERCPs with biliary and pancreatic stent placement. On her last ERCP, she had a pancreatic stent exchange but the biliary stent was removed and not replaced. She has been doing well overall. States her abdominal pain is not as bad as it used. Smokes tobacco 1 PPD but recently switch to vaping. Denies any alcohol use. Current Outpatient Medications Medication Sig BUTRANS 20 mcg/hour transdermal patch apply 1 patch topically to CLEAN, DRY, AND INTACT SKIN REMOVE AND REPLACE weekly acetaminophen (TYLENOL) 500 mg tablet Take 2 tablets by mouth every 6 hours. No current facility-administered medications for this visit. ALLERGIES No Known Allergies Social History Tobacco Use Smoking status: Every Day Current packs/day: 0.50 Average packs/day: 0.5 packs/day for 30.0 years (15.0 ttl pk-yrs) Types: Cigarettes Smokeless tobacco: Never Vaping Use Vaping status: Never Used Substance Use Topics Alcohol use: Not Currently Comment: sober since 12/2022 Drug use: No PAST MEDICAL HISTORY Diagnosis Date Bile duct disease Blood clot in vein Essential hypertension PAST SURGICAL HISTORY Procedure Laterality Date DILATION & CURETTAGE DX&/THER NONOBSTETRIC Dilation & curettage, X-2 LIG/TRNSXJ FLP TUBE ABDL/VAG APPR UNI/BI Tubal ligation PLACEMENT, BILE DUCT STENT 12/2023 FAMILY HISTORY Problem Relation Age of Onset Diabetes Maternal Uncle Asthma Brother REVIEW OF SYSTEMS Review of Systems Gastrointestinal: Positive for abdominal pain and constipation. All other systems reviewed and are negative. PHYSICAL EXAM BP 104/68 Pulse 90 Ht 5' 4 (1.63m) Wt 133 lb (60.3kg) LMP 08/02/2023 BMI 22.82 kg/(m^2). Physical Exam General: Awake and alert, NAD. Mouth: Mucous membranes moist. Respiratory: Even, non-labored. Heart: Regular rate. Abdomen: Soft, non-tender, no distention. Extremities: No edema. Neurological: Grossly normal. Skin: Warm and dry. ASSESSMENT/Plan: Melva Kerns is a 44 year old female with a PMHx of Alcohol induced chronic pancreatitis who presents for follow up. #Chronic Pancreatitis - Denies any alcohol use - Advised to abstain from alcohol - Will check fecal elastase to evaluate for pancreatic insufficiency - Will check hepatic function panel to evaluate for symptomatic biliary stricture - Continue endoscopic therapy as scheduled RCT in 6 months Roel Mosley MD DATE: 07/03/24 TIME: 2:30 PM documented in this encounter [facility] 06-13-2024 Telephone encounter Note Pt was a no show to PST today. Alivia in surgical scheduling notified. [facility] Work Phone: 06-13-2024 Miscellaneous Notes Pt was a no show to PST today. Alivia in surgical scheduling notified. documented in this encounter [facility] 06-10-2024 Telephone encounter Note LM on - Dr. Mosley is requesting to see the patient in office before her 2nd ERCP - this is how he prefers it. I rescheduled her ERCP and office visit. Her pre testing appt is fine. We do not need to reschedule it. Give patient update when she calls in. Thank you. [facility] 06-10-2024 Miscellaneous Notes LM on - Dr. Mosley is requesting to see the patient in office before her 2nd ERCP - this is how he prefers it. I rescheduled her ERCP and office visit. Her pre testing appt is fine. We do not need to reschedule it. Give patient update when she calls in. Thank you. documented in this encounter [facility] 05-21-2024 Nurse Note Pt states she is having her chronic pain and the only thing that helps her is her pain patch. Pt wants to go home at this time and denies need for further intervention for pain at this time. Dr Sanford spoke with pt and instructed her that it was ok to apply her patch as soon as she is able to get it. He also told her for the next time she has this procedure to leave patch on and notify staff on arrival. [facility] 05-21-2024 Nurse Note Pt states she is having her chronic pain and the only thing that helps her is her pain patch. Pt wants to go home at this time and denies need for further intervention for pain at this time. Dr Sanford spoke with pt and instructed her that it was ok to apply her patch as soon as she is able to get it. He also told her for the next time she has this procedure to leave patch on and notify staff on arrival. documented in this encounter [facility] 05-21-2024 Note HNO ID: [id number] Author: DELMER OLEARY APRN.INSTRUCTOR PILOT Service: ? Author Type: Nurse Outpatient Interviewing Clerk Type: Anesthesia Procedure Notes Filed: 05/21/2024 09:35 Note Text: ANESTHESIOLOGY PROCEDURE NOTE Airway General Information Procedure Start Time/Medication Administration: 05/21/2024 9:24 AM Procedure End Time: 05/21/2024 9:25 AM Patient location during procedure: OR Timeout Performed Pre-procedure: timeout performed Consent Obtained: Yes Patient identity confirmed: arm band Staffing Performed by: CANDE Indications and Patient Condition Indications for airway management: anesthesia Preoxygenated: yes anesthesia circuit Patient position: sniffing Method: asleep Final Airway Details Final airway type: endotracheal airway Successful intubation technique: video laryngoscopy Devices used: Jimenez Blade: Joleen Blade size: #3 Measured from: lips Measurement (cm): 21 Placement verified by: capnometry Cormack-Lehane Classification: grade I - full view of glottis Number of attempts at approach: 1 SIGNATURE: Delmer Oleary APRN.CRNA PATIENT NAME: Melva Kerns DATE: May 21, 2024 TIME: 9:34 AM CSN: [id number] [facility] 05-21-2024 History and physical note HISTORY AND PHYSICAL EXAMINATION SERVICE DATE: 05/21/2024 SERVICE TIME: 8:21 AM PRIMARY CARE PHYSICIAN: No primary care [...] Chronic Pancreatitis (Hcc) Gerd (Gastroesophageal Reflux Disease) Abdominal Pain Acute On Chronic Pancreatitis (Hcc) Alcohol-Induced Acute Pancreatitis Biliary Stricture Tobacco Abuse Subjective CHIEF COMPLAINT: Preoperative Examination HPI: This is a 43 year old female that presents for ERCP. She is here for stent exchange. She states that the most recent stent was placed a little over a month ago. She states that this is a pancreatic stent. She also has had biliary stents but have since been removed. Denies any N/V/D and constipation. Endorses 7/10 abdominal pain in the perioperative area. Surgical intervention was previously discussed and patient is in agreement. METS: Climb a flight of stairs or walk up a hill (5.50 METs) Patient denies any CP/SOB with above activity. PAST MEDICAL HISTORY Diagnosis Date Bile duct disease Blood clot in vein Essential hypertension PAST SURGICAL HISTORY Procedure Laterality Date DILATION & CURETTAGE DX&/THER NONOBSTETRIC Dilation & curettage, X-2 LIG/TRNSXJ FLP TUBE ABDL/VAG APPR UNI/BI Tubal ligation PLACEMENT, BILE DUCT STENT 12/2023 FAMILY HISTORY Problem Relation Age of Onset Diabetes Maternal Uncle Asthma Brother SOCIAL HISTORY: Social History Tobacco Use Smoking status: Every Day Current packs/day: 0.50 Average packs/day: 0.5 packs/day for 30.0 years (15.0 ttl pk-yrs) Types: Cigarettes Smokeless tobacco: Never Vaping Use Vaping status: Never Used Substance Use Topics 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 Yes acetaminophen (TYLENOL) 500 mg tablet Take 2 tablets by mouth every 6 hours. Yes iv contrast (will be provided with radiology [...] in the MR contrast administration guidelines link. Patient not taking: Reported on 11/22/2023 gabapentin (NEURONTIN) 100 mg capsule Take 2 capsules by mouth daily at bedtime for 30 days. Nicotine 21-14-7 mg/24 hr ptds Apply 1 Patch as directed once daily. dicloxacillin (DYNAPEN) 500 mg capsule Take 1 capsule by mouth four times daily. ibuprofen (MOTRIN IB ORAL) Take by mouth. iv contrast (will be provided with radiology [...] in the MR contrast administration guidelines link. Patient not taking: Reported on 06/28/2023 lactulose 10 gram/15 mL solution Take 30 mL by mouth once daily as needed for up to 2 doses. gabapentin (NEURONTIN) 300 mg capsule Take 1 capsule by mouth daily at bedtime for 30 days. omeprazole (PRILOSEC) 40 mg capsule Take 1 capsule by mouth once daily for 21 days. Medication Comments documented by Gomez Mcgowan DO on 08/14/2012 at 1101. No daily medications Medardo Gonzalez Lpn ALLERGIES No Known Allergies REVIEW OF SYSTEMS: PAIN ASSESSMENT: Pain Pain Level: 7 Pain Location: Abdomen Pain Assessment: Assessment Description: Aching Duration: Continuous Intervention/Comfort measure: Reposition, Relaxation Tool: Verbal (Numeric Rating or Visual Analog Scale) General: Denies fever, chills, and unexpected weight change. Neuro: Denies dizziness and headaches. Respiratory: Denies SOB. Cardiovascular: Denies CP and palpitations. +HTN GI: See HPI. : Denies dysuria. Endocrine: No history of diabetes or thyroid conditions. Hematology: Denies history of bleeding or clotting disorder. No known autoimmune disorders. Psych: Denies anxiety/depression. Musculoskeletal: Denies joint pain and swelling. Skin: Denies open sores and rashes. Objective PHYSICAL EXAM: VITALS: BP 113/77 Pulse 72 Temp (Src) 97.5 (Temporal) Resp 15 Ht 5' 4.016 (1.63m) Wt 130 lb 1.1 oz (59.0kg) SpO2 99% LMP 08/02/2023 BMI 22.32 kg/(m^2). O2 Therapy: Room Air General: NAD. Cooperative. [...] Items Addressed This Visit Cardiovascular Essential hypertension Current Assessment & Plan No medication. Diet and lifestyle modification. Gastrointestinal GERD (gastroesophageal reflux disease) Current Assessment & Plan No medication. Diet and lifestyle modification. Portal vein thrombosis Current Assessment & Plan Patient was previously on Lovenox. She reports she has not been on medication for over a year. Endocrinology Alcohol-induced chronic pancreatitis (HCC) Current Assessment & Plan ERCP today. Relevant Orders ERCP Psychiatry Alcohol abuse Current Assessment & Plan Previous daily alcohol use. Sober since 12/2022. She reports that she used to drink less than a fifth of vodka a day. Other Nicotine dependence, uncomplicated Current Assessment & Plan Current everyday cigarette smoker. 15 pack years. Patient states that she smoked 5 cigarettes this morning prior to arrival for procedure. Pre-op examination - Primary Current Assessment & Plan see note for medical conditions which may affect ivory-operative course that were addressed at today's visit. Diagnosis: Alcohol-induced chronic pancreatitis (HCC) [K86.0] Planned Procedure: ERCP The Following Tests/Procedures Have Been Initiated: IV start and Maintenance fluid for the procedure. ANESTHESIA FINDINGS: Significant Anesthesia Considerations: None Planned Anesthetic: General I spent a total of 20 minutes on the date of the service which included preparing to see the patient, [id number] patient care, completing clinical documentation, obtaining and/or reviewing separately obtained history, and performing a medically appropriate examination. Instructions Given to Patient: Patient given verbal preop instructions and voices comprehension and compliance. SIGNATURE: Radha Sears APRN.CNP PATIENT NAME: Melva Kerns DATE: May 21, 2024 TIME: 7:22 AM PAGER/CONTACT #: [facility] 05-21-2024 History and physical note HISTORY AND PHYSICAL EXAMINATION SERVICE DATE: 05/21/2024 SERVICE TIME: 8:21 AM PRIMARY CARE PHYSICIAN: No primary care [...] Chronic Pancreatitis (Hcc) Gerd (Gastroesophageal Reflux Disease) Abdominal Pain Acute On Chronic Pancreatitis (Hcc) Alcohol-Induced Acute Pancreatitis Biliary Stricture Tobacco Abuse Subjective CHIEF COMPLAINT: Preoperative Examination HPI: This is a 43 year old female that presents for ERCP. She is here for stent exchange. She states that the most recent stent was placed a little over a month ago. She states that this is a pancreatic stent. She also has had biliary stents but have since been removed. Denies any N/V/D and constipation. Endorses 7/10 abdominal pain in the perioperative area. Surgical intervention was previously discussed and patient is in agreement. METS: Climb a flight of stairs or walk up a hill (5.50 METs) Patient denies any CP/SOB with above activity. PAST MEDICAL HISTORY Diagnosis Date Bile duct disease Blood clot in vein Essential hypertension PAST SURGICAL HISTORY Procedure Laterality Date DILATION & CURETTAGE DX&/THER NONOBSTETRIC Dilation & curettage, X-2 LIG/TRNSXJ FLP TUBE ABDL/VAG APPR UNI/BI Tubal ligation PLACEMENT, BILE DUCT STENT 12/2023 FAMILY HISTORY Problem Relation Age of Onset Diabetes Maternal Uncle Asthma Brother SOCIAL HISTORY: Social History Tobacco Use Smoking status: Every Day Current packs/day: 0.50 Average packs/day: 0.5 packs/day for 30.0 years (15.0 ttl pk-yrs) Types: Cigarettes Smokeless tobacco: Never Vaping Use Vaping status: Never Used Substance Use Topics 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 Yes acetaminophen (TYLENOL) 500 mg tablet Take 2 tablets by mouth every 6 hours. Yes iv contrast (will be provided with radiology [...] in the MR contrast administration guidelines link. Patient not taking: Reported on 11/22/2023 gabapentin (NEURONTIN) 100 mg capsule Take 2 capsules by mouth daily at bedtime for 30 days. Nicotine 21-14-7 mg/24 hr ptds Apply 1 Patch as directed once daily. dicloxacillin (DYNAPEN) 500 mg capsule Take 1 capsule by mouth four times daily. ibuprofen (MOTRIN IB ORAL) Take by mouth. iv contrast (will be provided with radiology [...] in the MR contrast administration guidelines link. Patient not taking: Reported on 06/28/2023 lactulose 10 gram/15 mL solution Take 30 mL by mouth once daily as needed for up to 2 doses. gabapentin (NEURONTIN) 300 mg capsule Take 1 capsule by mouth daily at bedtime for 30 days. omeprazole (PRILOSEC) 40 mg capsule Take 1 capsule by mouth once daily for 21 days. Medication Comments documented by Gomez Mcgowan DO on 08/14/2012 at 1101. No daily medications Medardo Martineslidia Cheema ALLERGIES No Known Allergies REVIEW OF SYSTEMS: PAIN ASSESSMENT: Pain Pain Level: 7 Pain Location: Abdomen Pain Assessment: Assessment Description: Aching Duration: Continuous Intervention/Comfort measure: Reposition, Relaxation Tool: Verbal (Numeric Rating or Visual Analog Scale) General: Denies fever, chills, and unexpected weight change. Neuro: Denies dizziness and headaches. Respiratory: Denies SOB. Cardiovascular: Denies CP and palpitations. +HTN GI: See HPI. : Denies dysuria. Endocrine: No history of diabetes or thyroid conditions. Hematology: Denies history of bleeding or clotting disorder. No known autoimmune disorders. Psych: Denies anxiety/depression. Musculoskeletal: Denies joint pain and swelling. Skin: Denies open sores and rashes. Objective PHYSICAL EXAM: VITALS: BP 113/77 Pulse 72 Temp (Src) 97.5 (Temporal) Resp 15 Ht 5' 4.016 (1.63m) Wt 130 lb 1.1 oz (59.0kg) SpO2 99% LMP 08/02/2023 BMI 22.32 kg/(m^2). O2 Therapy: Room Air General: NAD. Cooperative. [...] Items Addressed This Visit Cardiovascular Essential hypertension Current Assessment & Plan No medication. Diet and lifestyle modification. Gastrointestinal GERD (gastroesophageal reflux disease) Current Assessment & Plan No medication. Diet and lifestyle modification. Portal vein thrombosis Current Assessment & Plan Patient was previously on Lovenox. She reports she has not been on medication for over a year. Endocrinology Alcohol-induced chronic pancreatitis (HCC) Current Assessment & Plan ERCP today. Relevant Orders ERCP Psychiatry Alcohol abuse Current Assessment & Plan Previous daily alcohol use. Sober since 12/2022. She reports that she used to drink less than a fifth of vodka a day. Other Nicotine dependence, uncomplicated Current Assessment & Plan Current everyday cigarette smoker. 15 pack years. Patient states that she smoked 5 cigarettes this morning prior to arrival for procedure. Pre-op examination - Primary Current Assessment & Plan see note for medical conditions which may affect ivory-operative course that were addressed at today's visit. Diagnosis: Alcohol-induced chronic pancreatitis (HCC) [K86.0] Planned Procedure: ERCP The Following Tests/Procedures Have Been Initiated: IV start and Maintenance fluid for the procedure. ANESTHESIA FINDINGS: Significant Anesthesia Considerations: None Planned Anesthetic: General I spent a total of 20 minutes on the date of the service which included preparing to see the patient, [id number] patient care, completing clinical documentation, obtaining and/or reviewing separately obtained history, and performing a medically appropriate examination. Instructions Given to Patient: Patient given verbal preop instructions and voices comprehension and compliance. SIGNATURE: Radha Sears APRN.CNP PATIENT NAME: Melva Kerns DATE: May 21, 2024 TIME: 7:22 AM PAGER/CONTACT #: documented in this encounter [facility] 04-09-2024 Note HNO ID: [id number] Author: MORENA AVELAR APRN.CRNA Service: ? Author Type: Nurse Outpatient Interviewing Clerk Type: Anesthesia Procedure Notes Filed: 04/09/2024 08:28 Note Text: ANESTHESIOLOGY PROCEDURE NOTE Airway General Information Procedure Start Time/Medication Administration: 04/09/2024 8:16 AM Procedure End Time: 04/09/2024 8:16 AM Patient location during procedure: OR Timeout Performed Pre-procedure: timeout performed Consent Obtained: Yes Patient identity confirmed: arm band and patient Staffing INSTRUCTOR PILOT: Morena Avelar APRN.INSTRUCTOR PILOT Performed by: CANDE Indications and Patient Condition Indications for airway management: anesthesia Preoxygenated: yes anesthesia circuit Patient position: sniffing Method: asleep Cricoid Pressure: No Manual In-Line Stabilization: No Difficult Mask: No Airway Accessory: oral airway Final Airway Details Final airway type: endotracheal airway Final Endotracheal Airway: ETT Cuffed: yes Successful intubation technique: direct laryngoscopy Devices used: intubating stylet Endotracheal tube insertion site: oral Blade: Joleen Blade size: #3 ETT size (mm): 7.0 Measured from: lips Measurement (cm): 21 Placement verified by: chest auscultation and capnometry Cormack-Lehane Classification: grade IIa - partial view of glottis Number of attempts at approach: 1 Failed airway: no Unrecognized esophageal intubation: no Airway not difficult SIGNATURE: Morena Avelar APRN.INSTRUCTOR PILOT PATIENT NAME: Melva Kerns DATE: April 09, 2024 TIME: 8:28 AM CSN: [id number] [facility] 04-09-2024 History and physical note HISTORY AND PHYSICAL EXAMINATION Melva Kerns 1980 SERVICE DATE: 04/09/2024 SERVICE TIME: 7:28 AM PRIMARY CARE PHYSICIAN: No primary care provider on file. SURGEON: Dr Mosley ANESTHESIA: MAC DIAGNOSIS: Biliary stricture [K83.1] PROCEDURE: ERCP Subjective CHIEF COMPLAINT: ERCP The reason for this visit is to perform a comprehensive review of the patient's past medical history, assess their current health status and obtain any additional testing required based on anesthesia guidelines. We will also identify any potential anesthesia problems or contraindications to the planned procedure. HPI: This is a 43 year old female who presents with biliary stricture presents for ERCP with Dr Mosley. Hx chronic pancreatitis secondary to alcohol abuse sober since 12/2022. Placement of bile stent 12/2023. C/o chronic epigastric pain, denies changes in bowel habits, no hematochezia or melena, no GERD. METS: Climb a flight of stairs or walk up a hill (5.50 METs) FUNCTIONAL STATUS: Independent PAST MEDICAL HISTORY Diagnosis Date Bile duct disease Blood clot in vein Essential hypertension PAST SURGICAL HISTORY Procedure Laterality Date DILATION & CURETTAGE DX&/THER NONOBSTETRIC Dilation & curettage, X-2 LIG/TRNSXJ FLP TUBE ABDL/VAG APPR UNI/BI Tubal ligation PLACEMENT, BILE DUCT STENT 12/2023 FAMILY HISTORY Problem Relation Age of Onset Diabetes Maternal Uncle Asthma Brother Social History Tobacco Use Smoking status: Every Day Current packs/day: 0.50 Average packs/day: 0.5 packs/day for 30.0 years (15.0 ttl pk-yrs) Types: Cigarettes Smokeless tobacco: Never Vaping Use Vaping status: Never Used Substance Use Topics Alcohol use: Not Currently Comment: sober since 12/2022 Drug use: No Prior to Admission medications as of 04/09/24 0751 Medication Sig Last Dose Taking buprenorphine (BUTRANS) 15 mcg/hour patch Apply 1 Patch as directed one time a week. 04/08/2024 Yes acetaminophen (TYLENOL) 500 mg tablet Take 2 tablets by mouth every 6 hours. 04/08/2024 Yes iv contrast (will be provided with radiology [...] in the MR contrast administration guidelines link. Patient not taking: Reported on 11/22/2023 gabapentin (NEURONTIN) 100 mg capsule Take 2 capsules by mouth daily at bedtime for 30 days. Nicotine 21-14-7 mg/24 hr ptds Apply 1 Patch as directed once daily. dicloxacillin (DYNAPEN) 500 mg capsule Take 1 capsule by mouth four times daily. ibuprofen (MOTRIN IB ORAL) Take by mouth. iv contrast (will be provided with radiology [...] in the MR contrast administration guidelines link. Patient not taking: Reported on 06/28/2023 lactulose 10 gram/15 mL solution Take 30 mL by mouth once daily as needed for up to 2 doses. gabapentin (NEURONTIN) 300 mg capsule Take 1 capsule by mouth daily at bedtime for 30 days. omeprazole (PRILOSEC) 40 mg capsule Take 1 capsule by mouth once daily for 21 days. ALLERGIES No Known Allergies COMPLETE REVIEW OF SYSTEMS: GENERAL: No weight loss, malaise or fevers RESPIRATORY: tobacco abuse 15 pack years Cardiac: Negative for chest pain, leg swelling, hypertension, CHF or palpitations GI: No nausea, vomiting, or diarrhea and See HPI : No history of dysuria, frequency or incontinence MUSCULOSKELETAL: Negative for joint pain or swelling, back pain or muscle pain PSYCH: Negative for sleep disturbance, mood disorder and recent psychosocial stressors ENDOCRINE:Denies diabetes and thyroid problems NEURO: No Hx seizures, tremors or CVA Heme/Onc: hx blood clot abdominal, no hx clotting disorders, or cancer Objective PHYSICAL EXAM: 04/09/24 0747 BP: 115/78 Pulse: 89 Resp: 11 Temp: 36.9 C (98.4 F) TempSrc: Temporal SpO2: 99% Weight: 59 kg (130 lb) Height: 162.6 cm (5' 4) Body mass index is 22.31 kg/m . MENTAL STATUS: A&O HEENT: Normocephalic/atraumatic, pharynx clear LUNGS: Lungs clear to auscultation, Good diaphragmatic excursion CARDIAC: Normal S1 and S2; no rubs, murmurs, or gallops ABDOMEN: soft tender epigastric region EXTREMITIES: Extremities normal, no deformities, edema, clubbing or skin discoloration. Good capillary refill. Diagnostic tests reviewed for today's visit: Lab [...] range. No results found for: HBA1C Assessment/Plan ANESTHESIA FINDINGS: Intubation History: No history of difficult intubation Significant Anesthesia Considerations: None FAMILY PROBLEMS WITH ANESTHESIA: no history of adverse anesthetic event Patient has the following medical conditions Problem List Items Addressed This Visit Gastrointestinal Biliary stricture Relevant Orders ERCP Endocrinology Acute on chronic pancreatitis (HCC) Psychiatry Alcohol abuse - Primary Sober since 12/2022 Other Nicotine dependence, uncomplicated 15 pack years Pre-op examination Pre-op testing: Medical conditions which may affect the ivory-operative course were addressed in the visit today. PLAN Procedure Diagnosis: Biliary stricture [K83.1] Planned Procedure: ERCP Planned Anesthetic: MAC I spent a total of 20 minutes on the date of the service which included preparing to see the patient, [id number] patient care, completing clinical documentation, obtaining and/or reviewing separately obtained history, and performing a medically appropriate examination. SIGNATURE: Geri Stroud APRN.CNP PATIENT NAME: Melva Kerns DATE: April 09, 2024 TIME: 7:28 AM PAGER/CONTACT #: [facility] 04-09-2024 History and physical note HISTORY AND PHYSICAL EXAMINATION Melva Kerns 1980 SERVICE DATE: 04/09/2024 SERVICE TIME: 7:28 AM PRIMARY CARE PHYSICIAN: No primary care provider on file. SURGEON: Dr Mosley ANESTHESIA: MAC DIAGNOSIS: Biliary stricture [K83.1] PROCEDURE: ERCP Subjective CHIEF COMPLAINT: ERCP The reason for this visit is to perform a comprehensive review of the patient's past medical history, assess their current health status and obtain any additional testing required based on anesthesia guidelines. We will also identify any potential anesthesia problems or contraindications to the planned procedure. HPI: This is a 43 year old female who presents with biliary stricture presents for ERCP with Dr Mosley. Hx chronic pancreatitis secondary to alcohol abuse sober since 12/2022. Placement of bile stent 12/2023. C/o chronic epigastric pain, denies changes in bowel habits, no hematochezia or melena, no GERD. METS: Climb a flight of stairs or walk up a hill (5.50 METs) FUNCTIONAL STATUS: Independent PAST MEDICAL HISTORY Diagnosis Date Bile duct disease Blood clot in vein Essential hypertension PAST SURGICAL HISTORY Procedure Laterality Date DILATION & CURETTAGE DX&/THER NONOBSTETRIC Dilation & curettage, X-2 LIG/TRNSXJ FLP TUBE ABDL/VAG APPR UNI/BI Tubal ligation PLACEMENT, BILE DUCT STENT 12/2023 FAMILY HISTORY Problem Relation Age of Onset Diabetes Maternal Uncle Asthma Brother Social History Tobacco Use Smoking status: Every Day Current packs/day: 0.50 Average packs/day: 0.5 packs/day for 30.0 years (15.0 ttl pk-yrs) Types: Cigarettes Smokeless tobacco: Never Vaping Use Vaping status: Never Used Substance Use Topics Alcohol use: Not Currently Comment: sober since 12/2022 Drug use: No Prior to Admission medications as of 04/09/24 0751 Medication Sig Last Dose Taking buprenorphine (BUTRANS) 15 mcg/hour patch Apply 1 Patch as directed one time a week. 04/08/2024 Yes acetaminophen (TYLENOL) 500 mg tablet Take 2 tablets by mouth every 6 hours. 04/08/2024 Yes iv contrast (will be provided with radiology [...] in the MR contrast administration guidelines link. Patient not taking: Reported on 11/22/2023 gabapentin (NEURONTIN) 100 mg capsule Take 2 capsules by mouth daily at bedtime for 30 days. Nicotine 21-14-7 mg/24 hr ptds Apply 1 Patch as directed once daily. dicloxacillin (DYNAPEN) 500 mg capsule Take 1 capsule by mouth four times daily. ibuprofen (MOTRIN IB ORAL) Take by mouth. iv contrast (will be provided with radiology [...] in the MR contrast administration guidelines link. Patient not taking: Reported on 06/28/2023 lactulose 10 gram/15 mL solution Take 30 mL by mouth once daily as needed for up to 2 doses. gabapentin (NEURONTIN) 300 mg capsule Take 1 capsule by mouth daily at bedtime for 30 days. omeprazole (PRILOSEC) 40 mg capsule Take 1 capsule by mouth once daily for 21 days. ALLERGIES No Known Allergies COMPLETE REVIEW OF SYSTEMS: GENERAL: No weight loss, malaise or fevers RESPIRATORY: tobacco abuse 15 pack years Cardiac: Negative for chest pain, leg swelling, hypertension, CHF or palpitations GI: No nausea, vomiting, or diarrhea and See HPI : No history of dysuria, frequency or incontinence MUSCULOSKELETAL: Negative for joint pain or swelling, back pain or muscle pain PSYCH: Negative for sleep disturbance, mood disorder and recent psychosocial stressors ENDOCRINE:Denies diabetes and thyroid problems NEURO: No Hx seizures, tremors or CVA Heme/Onc: hx blood clot abdominal, no hx clotting disorders, or cancer Objective PHYSICAL EXAM: 04/09/24 0747 BP: 115/78 Pulse: 89 Resp: 11 Temp: 36.9 C (98.4 F) TempSrc: Temporal SpO2: 99% Weight: 59 kg (130 lb) Height: 162.6 cm (5' 4) Body mass index is 22.31 kg/m . MENTAL STATUS: A&O HEENT: Normocephalic/atraumatic, pharynx clear LUNGS: Lungs clear to auscultation, Good diaphragmatic excursion CARDIAC: Normal S1 and S2; no rubs, murmurs, or gallops ABDOMEN: soft tender epigastric region EXTREMITIES: Extremities normal, no deformities, edema, clubbing or skin discoloration. Good capillary refill. Diagnostic tests reviewed for today's visit: Lab [...] range. No results found for: HBA1C Assessment/Plan ANESTHESIA FINDINGS: Intubation History: No history of difficult intubation Significant Anesthesia Considerations: None FAMILY PROBLEMS WITH ANESTHESIA: no history of adverse anesthetic event Patient has the following medical conditions Problem List Items Addressed This Visit Gastrointestinal Biliary stricture Relevant Orders ERCP Endocrinology Acute on chronic pancreatitis (HCC) Psychiatry Alcohol abuse - Primary Sober since 12/2022 Other Nicotine dependence, uncomplicated 15 pack years Pre-op examination Pre-op testing: Medical conditions which may affect the ivory-operative course were addressed in the visit today. PLAN Procedure Diagnosis: Biliary stricture [K83.1] Planned Procedure: ERCP Planned Anesthetic: MAC I spent a total of 20 minutes on the date of the service which included preparing to see the patient, [id number] patient care, completing clinical documentation, obtaining and/or reviewing separately obtained history, and performing a medically appropriate examination. SIGNATURE: Geri Stroud APRN.CNP PATIENT NAME: Melva Kerns DATE: April 09, 2024 TIME: 7:28 AM PAGER/CONTACT #: documented in this encounter [facility] 04-03-2024 Telephone encounter Note Summary: PAT no show Patient no-show to PAT today. Email communication sent to schedulers. Patient will need to be rescheduled. Patient is scheduled for surgery with Dr. Davis on 04/10/2024 @ [facility] Work Phone: 04-03-2024 Miscellaneous Notes Summary: PAT no show Patient no-show to PAT today. Email communication sent to schedulers. Patient will need to be rescheduled. Patient is scheduled for surgery with Dr. Davis on 04/10/2024 @ [facility] documented in this encounter [facility] 12-25-2023 Telephone encounter Note Surgery Checklist Type: Ercp Admission Type: outpatient Anesthesia: MAC Date: 04/10/24 Arrival Time: 8:00 Surgery Time: 9:00 Location: [facility] Patient mailed prep instructions Connie Fink [facility] 12-25-2023 Miscellaneous Notes Surgery Checklist Type: Ercp Admission Type: outpatient Anesthesia: MAC Date: 04/10/24 Arrival Time: 8:00 Surgery Time: 9:00 Location: [facility] Patient mailed prep instructions Connie Fink documented in this encounter [facility] 12-06-2023 Telephone encounter Note ----- Message from Carlos Davis MD sent at 12/05/2023 9:28 AM EDT ----- Regarding: ERCP Plz schedule ERCP in 3-4 months with me. Thanks [facility] 12-06-2023 Miscellaneous Notes ----- Message from Carlos Davis MD sent at 12/05/2023 9:28 AM EDT ----- Regarding: ERCP Plz schedule ERCP in 3-4 months with me. Thanks documented in this encounter [facility] 12-05-2023 Note HNO ID: [id number] Author: LY ABDALLA APRN.CRNA Service: Anesthesiology Author Type: Nurse Outpatient Interviewing Clerk Type: Anesthesia Procedure Notes Filed: 12/05/2023 08:37 Note Text: ANESTHESIOLOGY PROCEDURE NOTE Airway General Information Procedure Start Time/Medication Administration: 12/05/2023 8:19 AM Procedure End Time: 12/05/2023 8:21 AM Patient location during procedure: OR Timeout Performed Pre-procedure: timeout performed Consent Obtained: Yes Patient identity confirmed: arm band Staffing INSTRUCTOR PILOT: Ly Abdalla APRN.INSTRUCTOR PILOT Performed by: INSTRUCTOR PILOT Indications and Patient Condition Indications for airway management: anesthesia Preoxygenated: yes anesthesia circuit Patient position: sniffing Method: asleep Difficult Mask: No Final Airway Details Final airway type: endotracheal airway Final Endotracheal Airway: ETT Cuffed: yes Successful intubation technique: direct laryngoscopy Blade: Joleen Blade size: #4 ETT size (mm): 7.0 Measured from: lips Measurement (cm): 22 Placement verified by: chest auscultation and capnometry Cormack-Lehane Classification: grade I - full view of glottis Number of attempts at approach: 1 Airway not difficult SIGNATURE: Ly Abdalla APRN.INSTRUCTOR PILOT PATIENT NAME: Melva Kerns DATE: December 05, 2023 TIME: 8:36 AM CSN: [id number] [facility] 12-05-2023 History of Present illness Narrative H&P completed by Evelia Mak MD at 11/22/2023 12:41 PM documented in this encounter [facility] 12-05-2023 Note HNO ID: [id number] Author: GERI STROUD APRN.CNP Service: Anesthesiology Author Type: Nurse Practitioner Type: Progress Notes Filed: 12/05/2023 07:25 Note Text: HANDP completed by Evelia Mak MD at 11/22/2023 12:41 PM [facility] 11-27-2023 Note Addended by: CONNIE FINK on: 11/27/2023 01:21 PM Modules accepted: Orders [facility] 11-27-2023 Miscellaneous Notes Addended by: CONNIE FINK on: 11/27/2023 01:21 PM Modules accepted: Orders Done! Order is needed for ERCP w/Stent removal. November 27, 2023 11:55 AM Connie Fink documented in this encounter [facility] 11-27-2023 Telephone encounter Note Done! [facility] 11-27-2023 Telephone encounter Note Order is needed for ERCP w/Stent removal. November 27, 2023 11:55 AM Connie Fink [facility] 11-22-2023 Note HNO ID: [id number] Author: EVELIA MAK MD Service: ? Author Type: Physician Type: Progress Notes Filed: 11/22/2023 12:41 Note Text: Evelia Mak M.D. Surgical Oncology [address] [facility], [address] [place] [address] SUBJECTIVE HPI Melva Kerns is a 43 year old female presenting for follow-up of chronic pancreatitis. Patient was last seen in clinic about 2 months ago. At that time we ordered an MRI which she has recently had performed and she presents today to discuss these results. Currently, patient reports that she is doing relatively well. She reports she has a good pain control strategy and has had no days of uncontrolled abdominal pain. She reports she is tolerating a regular diet with normal bowel function. No diarrhea/steatorrhea. No new or worsening medical conditions since her last visit. She reports she is still smoking, but has decrease the amount by a little bit. Review of Systems Constitutional: Negative for malaise/fatigue [...] Tobacco Use Smoking status: Every Day Packs/day: 0.50 Years: 30.00 Additional pack years: 0.00 Total pack years: 15.00 Types: Cigarettes Smokeless tobacco: Never Vaping Use Vaping Use: Never used Substance Use Topics Alcohol use: Not Currently Comment: sober since 12/2022 Drug use: No FAMILY HISTORY Problem Relation Age of Onset Diabetes Maternal Uncle Asthma Brother The ROS, medical, surgical, family, and social history were reviewed by Evelia Mak MD ALLERGIES No Known Allergies Current Outpatient Medications Medication Sig buprenorphine (BUTRANS) 15 mcg/hour patch Apply 1 Patch as directed one time a week. gabapentin (NEURONTIN) 100 mg capsule Take 2 capsules by mouth daily at bedtime for 30 days. dicloxacillin (DYNAPEN) 500 mg capsule Take 1 capsule by mouth four times daily. ibuprofen (MOTRIN IB ORAL) Take by mouth. acetaminophen (TYLENOL) 500 mg tablet Take 2 tablets by mouth every 6 hours. lactulose 10 gram/15 mL solution Take 30 mL by mouth once daily as needed for up to 2 doses. iv contrast (will be provided with radiology [...] guidelines link. (Patient not taking: Reported on 11/22/2023) Nicotine 21-14-7 mg/24 hr ptds Apply 1 [...] current facility-administered medications for this visit. OBJECTIVE Ht 162.6 cm (5' 4) Wt 59 kg (130 lb) LMP 08/02/2023 BMI 22.31 kg/m? BMI 22.31 kg/(m2) Physical Exam Constitutional: General: She is not in acute distress. HENT: Head: Normocephalic and atraumatic. Eyes: Pupils: Pupils are equal, round, and reactive to light. Neck: Thyroid: No thyromegaly. (more content not included)... [facility] 11-22-2023 History of Present illness Narrative Images from the original note were not included. Evelia Mak M.D. Surgical Oncology [address] [facility], [address] [place] [address] SUBJECTIVE HPI Melva Kerns is a 43 year old female presenting for follow-up of chronic pancreatitis. Patient was last seen in clinic about 2 months ago. At that time we ordered an MRI which she has recently had performed and she presents today to discuss these results. Currently, patient reports that she is doing relatively well. She reports she has a good pain control strategy and has had no days of uncontrolled abdominal pain. She reports she is tolerating a regular diet with normal bowel function. No diarrhea/steatorrhea. No new or worsening medical conditions since her last visit. She reports she is still smoking, but has decrease the amount by a little bit. Review of Systems Constitutional: Negative for malaise/fatigue [...] Tobacco Use Smoking status: Every Day Packs/day: 0.50 Years: 30.00 Additional pack years: 0.00 Total pack years: 15.00 Types: Cigarettes Smokeless tobacco: Never Vaping Use Vaping Use: Never used Substance Use Topics Alcohol use: Not Currently Comment: sober since 12/2022 Drug use: No FAMILY HISTORY Problem Relation Age of Onset Diabetes Maternal Uncle Asthma Brother The ROS, medical, surgical, family, and social history were reviewed by Evelia Mak MD ALLERGIES No Known Allergies Current Outpatient Medications Medication Sig buprenorphine (BUTRANS) 15 mcg/hour patch Apply 1 Patch as directed one time a week. gabapentin (NEURONTIN) 100 mg capsule Take 2 capsules by mouth daily at bedtime for 30 days. dicloxacillin (DYNAPEN) 500 mg capsule Take 1 capsule by mouth four times daily. ibuprofen (MOTRIN IB ORAL) Take by mouth. acetaminophen (TYLENOL) 500 mg tablet Take 2 tablets by mouth every 6 hours. lactulose 10 gram/15 mL solution Take 30 mL by mouth once daily as needed for up to 2 doses. iv contrast (will be provided with radiology [...] guidelines link. (Patient not taking: Reported on 11/22/2023) Nicotine 21-14-7 mg/24 hr ptds Apply 1 [...] current facility-administered medications for this visit. OBJECTIVE Ht 162.6 cm (5' 4) Wt 59 kg (130 lb) LMP 08/02/2023 BMI 22.31 kg/m BMI 22.31 kg/(m^2) Physical Exam Constitutional: General: She is [...] ASSESSMENT AND PLAN Plan 43-year-old woman with chronic pancreatitis secondary to alcohol. I reviewed with patient her MRI. It once again demonstrates a pancreatic duct stricture which appears to be stable over time now. I advised patient that I would recommend referral to gastroenterology for evaluation of her biliary tree and pancreatic duct. Given that her pain is well-controlled and she does not seem to have any sequela of pancreatic insufficiency I would recommend a more conservative approach however we will need to determine if she continues to have a biliary stricture. I once again strongly reinforced the need for her to quit smoking. Answered all of her questions to her satisfaction and she is agreeable to this plan. I spent a total of 30 minutes on the date of the service which included preparing to see the patient, completing clinical documentation, performing a medically appropriate examination, counseling and educating the patient/family/caregiver, and independently interpreting results (not separately reported). Evelia Mak MD 11/22/2023 9:50 AM documented in this encounter [facility] 11-09-2023 History of Present illness Narrative Radiology Service Progress Note DATE OF SERVICE: November 09, 2023 TIME: 1:16 PM PATIENT IDENTITY VERIFICATION COMPLETED USING TWO (2) STANDARD IDENTIFIERS: Name and Date of confirmed by patient verbally. FALL SCREENING: Has the patient had 2 falls in the last year or 1 fall with injury or currently using an Ambulatory Assistive Device (Walker, Cane, Wheelchair, Crutches, etc.)? No PATIENT GENDER DATA: Female. status: : No status: NO. PATIENT RELEVANT IMPLANT DATA REVIEWED: Yes PATIENT PRESENTS WITH AN IMPLANTABLE OR ATTACHED BUSINESS PROGRAMMER: No ALLERGIES: Reviewed and unchanged CONTRAST ALLERGY: NO. EXAM: MRI - CONTRAST TYPE: GROUP II PERIPHERAL IV DATA: Ambulatory: A peripheral IV was started in the Right antecubital site with a Angio cath: 22 gauge. RADIOLOGY DEPARTMENT: MR; Exam(s) Completed: Body: Pancreas/Biliary SIGNATURE: RT Mercedes(R) PATIENT NAME: Melva Kerns DATE: November 09, 2023 TIME: 1:16 PM documented in this encounter [facility] 09-20-2023 History of Present illness Narrative Images from the original note were not included. Evelia Mak M.D. Surgical Oncology [address] [place] [address], [address] [place] [address] SUBJECTIVE HPI Melva Kerns is a 43 year old female presenting for follow up of chronic pancreatitis. Since patient's last visit she has undergone repeat ERCP. She had a biliary stent exchange with an area of stricture noted in the head of the pancreas. The PD was unable to be cannulated so her PD stricture could not be evaluated/treated. She continues to have significant abdominal pain for which she follows with pain management. She also reports some nausea. No emesis. No weight loss. She has not had any alcohol since her episode of acute pancreatitis. She continues to smoke but is interested in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 DIAGNOSIS: abd pain abnormal imaging POST-OP/POST-PROCEDURE DIAGNOSIS: chronic pancreatitis with hi grade biliary stricture OPERATIVE/PROCEDURE REPORT LOG ID: [id number] Surgery/Procedure Date: 05/08/2023 Incision/Procedure Start Time: 10:34 AM Incision Close/Procedure End Time: 11:59 AM Surgeon(s)/Proceduralist(s) and Orthopedic Coder(s): HAILE BARRIGA MD No Additional Staff Procedure(s): Endoscopic Retrograde Cholangiopancreatography (ERCP) with plastic biliary stent removal biopsy of biliary stricture with cold biopsy forceps cytology brushing of biliary stricture placement of 10 40covered wall stent Anesthesia: General Brief History: ongoing abd pain abnormal imaging Procedure Details: The patient was placed in the prone position on the fluoroscopy table. A bite block was placed and medications administered as above. The Olympus side-viewing duodenoscope was introduced into the oropharynx and we intubated the esophagus with ease. We proceeded down to the secondpart of the duodenum. The ampulla was visualized and appeared normal with no evidence of papillitisor trauma. Plastic biliary stent noted and removed via rat tooth forceps We were able to obtain access to the common bile duct (CBD) using a short-wire Dreamtome and wire-guided cannulation. Contrastinjection confirmed placement fluoroscopically. I personally interpreted all [...] f/u pathology probable surgical intervention will be neededdown the road I/primary surgeon/proceduralist performed the procedure with assistance. HAILE BARRIGA MD SIGNATURE: HAILE BARRIGA MD PATIENT NAME: Melva Kerns DATE: May 08, 2023 TIME: 2:07 PM PAGER/CONTACT #: [phone] ESTIMATED BLOOD LOSS: 0 ml SPECIMENS: pancreas bile duct IMPLANTABLE DEVICES: covered wall stent DRAINS: None COMPLICATIONS: None CLOSURE TECHNIQUE: Primary PARTICIPATION IN SURGERY/PROCEDURE: I/primary surgeon/proceduralist performed the procedure with assistance. SIGNATURE: Haile Barriga MD PATIENT NAME: Melva Kerns DATE: May 08, 2023 TIME: 2:05 PM * Operative Report - Haile Barriga MD - 05/08/2023 9:35 AM EST OPERATIVE/PROCEDURE REPORT LOG ID: [id number] SURGERY/PROCEDURE DATE: 05/08/2023 INCISION/PROCEDURE START TIME: 10:34 AM INCISION CLOSE/PROCEDURE END TIME: 11:59 AM SURGEON(S)/PROCEDURALIST(S) AND APPLIED RESEARCHER(S): Haile Barriga MD - Proceduralist No Additional Staff SURGERY/PROCEDURE(S): eus with fna OPERATIVE/PROCEDURE REPORT LOG ID: [id number] Surgery/Procedure Date: 05/08/2023 Incision/Procedure Start Time: 10:34 AM Incision Close/Procedure End Time: 11:59 AM Surgeon(s)/Proceduralist(s) and Orthopedic Coder(s): HAILE BARRIGA MD Procedure(s): Endoscopic Ultrasound (EUS) and Fine Needle Aspiration (FNA) Esophagogastroduodenoscopy (EGD) Anesthesia: Monitored Anesthesia Care Brief History: abnormal imaging Procedure Details: The patient was placed in the left lateral decubitus position. A bite block was placed and medications administered as above. The Olympus gastroscope was used to intubate the oropharynx and esophaguswith ease. We proceeded down to the second [...] to the posterior aspect of the gastric body.The aorta and celiac artery takeoff were visualized. The splenic vasculature appeared normal. The pancreatic parenchyma was visualized and had normal echogenicity. The pancreatic duct in the body wasdilated and measured 4mm . There is evidence of cystic structures, masses or chronic pancreatitis. The pancreatic parenchyma was scanned down to the tail and appeared normal. We then advanced the scope to the duodenal bulb. The CBD had normal caliber, measuring 9mm with no evidence of intraductal st ones. A normal stack sign was seen with [...] I/primary surgeon/proceduralist performed the procedure with assistance. HAILE BARRIGA MD SIGNATURE: HAILE BARRIGA MD PATIENT NAME: Melva Kerns DATE: May 08, 2023 TIME: 2:12 PM PAGER/CONTACT #: [phone] ANESTHESIA: General SURGERY/PROCEDURE DETAILS: see below PRE-OP/PRE-PROCEDURE DIAGNOSIS: chronic pancreatitis POST-OP/POST-PROCEDURE DIAGNOSIS: Same as Preop ESTIMATED BLOOD LOSS: 0 ml SPECIMENS: pancreas IMPLANTABLE DEVICES: NONE DRAINS: None COMPLICATIONS: None CLOSURE TECHNIQUE: Primary PARTICIPATION IN SURGERY/PROCEDURE: I/primary surgeon/proceduralist performed the procedure with assistance. SIGNATURE: Haile Barriga MD PATIENT NAME: Melva Kerns DATE: May 08, 2023 TIME: 2:12 PM documented in this encounterOhio State [facility]ing [facility]12-04-2023 History and physical note * Radha Sears APRN.CAN LABELER - 05/08/2023 9:30 AM EST HISTORY AND PHYSICAL EXAMINATION SERVICE DATE: 05/08/2023 [...] problems at this time. Denies any family historyof Colon cancer or other Gastric ca. Patient [...] (LEVAQUIN) 750 mg tablet Take by mouth. zzmqnd-wtwwdrll-uafotoj (CREON 24) 24,000-76,000 -120,000 unit delayed release [...] disintegrating tablet Take 1 tablet by mouth asneeded. benzonatate (TESSALON PERLE) 100 mg capsule Take 2 capsules by mouth three times daily as needed. Patient not taking: Reported on 12/12/2019 guaiFENesin (MUCINEX) 600 mg 12 hr tablet Take 2 tablets by mouth twice daily. Patient not taking: Reported on 04/29/2019 ketoconazole (NIZORAL) 2 % cream Apply 1 application to affected area once daily. Apply to rash andsurrounding area Patient not taking: Reported on 04/29/2019 naproxen sodium (ALEVE) 220 mg cap Take by mouth as directed. Medication Comments documented by Gomez Mcgowan DO on 08/14/2012 at 1101. No daily medications Medardo Gonzalez Lpn ALLERGIES No Known Allergies REVIEW [...] which included preparing to see the patient, [id number] patient care, completing clinical documentation, and performing a medically appropriate examination. Instructions Given to Patient: Patient given verbal preop instructions and voices comprehension and compliance. SIGNATURE: Radha Sears APRN.CNP PATIENT NAME: Melva Kerns DATE: May 08, 2023 TIME: 7:48 AM PAGER/CONTACT #: documented in this encounterOhio [facility]11-16-2023 Miscellaneous Notes* Telephone Encounter - Gita Whiting - 04/20/2023 2:09 PM EST Patient is scheduled for 05/[address] Barriga * Telephone Encounter - Gita Whiting - 02/24/2023 2:40 PM EDT *Tried to call patient yesterday 02/23/23 to [...] a date and time documented in this encounterOhio State [facility]08-28-2023 Miscellaneous Notes* Telephone Encounter - Gertrudis Denton - 01/30/2023 9:27 AM EDT Received referral from Dr. Mak for Chronic Abdominal pain, pancreatitis. Confirmed with Chief Digital Officer that we do not treat this patient. Spoke with patient and provided information and advised to follow backup with Dr. Mak. Gertrudis Denton documented in this encounterOhio State [facility]08-22-2023 Miscellaneous Notes* Telephone Encounter - Cindy Jean LPN - 01/24/2023 8:41 AM EDT Called patient, no answer, no VM box to leave VM. Williams CHEEMA * Telephone Encounter - Cindy Jean LPN - 01/24/2023 8:35 AM EDT 01/23/23 3:15 pm: Patient called into office, verified by name and . Patient wants to know if there's anything that can be done for her abdominal pain. Reports that she has been taking tylenol and advil with no relief. Advised patient that I would speak with Dr. Mak and return her call with any advisements. Patient voiced understanding. 01/23/23 4:49 pm: Message from Dr. Mak: Patient will need referred to pain management. Williams CHEEMA documented in this encounterOhio State [facility] Hospital08-22-2023 History of Present illness Narrative* Cindy Jean LPN - 01/24/2023 6:57 AM EDT Consultt o documented in this encounterOhio State [facility]ing Hospital08-18-2023 Miscellaneous Notes* [facility]/20/2023 10:21 AM EDT Smoking Cessation Navigation Outcome of contact: Left Message Comments: A voicemail has been left for this patient regarding Tobacco Cessation support options. If this patient has any further questions they can email us at or call us at [phone]. ealth Accountant Assistant/Smoking Cessation Navigator: [facility] documented in this encounterOhio State Harding Hospital08-16-2023 Nurse Note* Indiana Schreiber MA - 01/18/2023 8:31 AM EDT Bile duct obstruction. Lot of pain. See imaging scanned documents documented in this encounterOhio State [facility]ing Hospital08-16-2023 History of Present illness Narrative* Evelia Mak MD - 01/18/2023 8:30 AM EDT Images from the original note were not included. Evelia Mak M.D. Surgical Oncology [address] [facility], [address] [place] [address] SUBJECTIVE HPI Melva Kerns is a 42 year old female presenting for evaluation of a bile duct obstruction. Patient was seen at [facility] January 03, 2023. 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 She has been onanticoagulation for this. This was felt to be [...] demonstrated dilated bile duct as well as d ilated pancreatic duct. There was some peripancreatic edema [...] and social history were reviewed by Evelia Mak MD ALLERGIES No Known Allergies Current Outpatient Medications Medication Sig enoxaparin (LOVENOX) 100 mg/mL syrg inject 0.9 milliliters subcutaneously every 24 hours HYDROcodone-acetaminophen (NORCO) 5-325 mg per tablet levoFLOXacin (LEVAQUIN) 750 mg tablet Take by mouth. bvqwzp-ciiffflg-xskxhld (CREON 24) 24,000-76,000 -120,000 unit delayed release [...] disintegrating tablet Take 1 tablet by mouth asneeded. benzonatate (TESSALON PERLE) 100 mg capsule Take 2 capsules by mouth three times daily as needed. (Patient not taking: Reported on 12/12/2019 ) guaiFENesin (MUCINEX) 600 mg 12 hr tablet Take 2 tablets by mouth twice daily. (Patient not taking:Reported on 04/29/2019 ) ketoconazole (NIZORAL) 2 % cream Apply 1 application to affected area once daily. Apply to rash andsurrounding area (Patient not taking: Reported on 04/29/2019 ) naproxen sodium (ALEVE) 220 mg cap Take by mouth as directed. ibuprofen (MOTRIN) 800 mg tablet Take 800 mg by mouth every 6 hours as needed. No current facility-administered medications for this visit. OBJECTIVE BP 111/79 Pulse 112 Ht 162.6 cm (5' 4) Wt 55.3 kg (122 lb) LMP 10/22/2022 [...] documentation, performing a medically appropriate examination, counseling andeducating the patient/family/caregiver, ordering medications, tests, or procedures, and independently interpreting results (not separately reported). Evelia Mak MD 01/18/2023 8:41 AM documented in this encounterOhio State [facility]ing Hospital08-04-2023 Miscellaneous Notes* Telephone Encounter - Cindy Jean LPN - 01/06/2023 9:34 AM EDT Patient called into office, verified by name and . Received FC until April. Scheduled OV with Dr. Mak on 01/18/23. Williams CHEEMA * Telephone Encounter - Cindy Jean LPN - 01/05/2023 11:33 AM EDT Received faxed referral from Dr. Salamanca at [facility] for patient to be seen for dx: Alcohol induced Pancreatitis, with obstruction of bile duct. Called patient, verified by name and . Patient states she does not currently have insurance. Patient given FC phone number to call to get authorization/Financial Clearance prior to being able to schedule appointment. Patient voiced understanding and stated she would call. Williams CHEEMA [facility] Progress note Author Sal Cassidy [facility] January 04, 2023 1:00pm Note Date/Time January 04, 2023 8:0 9am [facility] Medical Records Department [address] [place] [id number] Progress Note - Hospitalist 01/04/23803 MR#: [id number] Acct: [id number] Name: MELVA KERNS Rep #:[id number] : 1980 42 From: Sal Cassidy DO PCP: Care Physician,No Primary Status :ADM IN Location: [place] [address] Reason for Visit Reason for Visit: Diagnoses Other elevated white blood cell count (01/03/23) Elevated white blood cell count, unspecified (01/03/23) Acute embolism and thrombosis of unspecified vein (01/03/23) Acute infarction of intestine, part and extent unspecified (01/03/23) Alcohol induced acute pancreatitis without necrosis or infection (01/03/23) Right upper quadrant pain (01/03/23) Unspecified abdominal pain (01/03/23) Elevation of levels of liver transaminase levels (01/03/23) Abnormal findings on diagnostic imaging of other parts of digestive tract (01/03/23) Subjective Subjective Worsening abdominal pain today and worse after taking oxycodone. No BM in 5-6 days. Objective Data Objective Data Vital Signs: Vital Signs Temp Pulse Resp BP Pulse Ox O2 Del Method 36.7 C 69 18 115/79 99 Room Air 01/04/23 07:47 01/04/23 07:47 01/04/23 07:47 01/04/23 07:47 01/04/23 07:47 08/02/23 07:47 Oxygen Delivery Method Room Air Weight: 57.1 kg Body Mass Index (BMI) 21.4 Intake & Output: Intake and Output for Last 24 Hours 01/02/23 01/03/23 01/04/23 23:59 23:59 23:59 Intake Total 4295.00 / 4295.00 3625.41 / 3625.41 2497.92 / 2497.92 Output Total 800 / 800 Balance 4295.00 / 3895.00 2825.41 / 2825.41 2497.92 / 2497.92 Lab / Micro Data 01/04/23 05:30 01/04/23 05:30 Labs: Laboratory Results - last 24 hr 01/04/23 05:30: WBC 4.7, RBC 3.36 L, Hgb 11.2 L, Hct 33.4 L, MCV 99.4 H, MCH 33.3 H, MCHC 33.5 D, RDW Std Deviation 48.1 H, RDW Coeff of Frankie 13.2, Plt [id number], MPV 10.2, Immature Gran % (Auto) 0.400, Neut % (Auto) 78.6 H, Lymph % (Auto) 17.8 L, Vigo % (Auto) 2.8, Eos % (Auto) 0.0, Baso % (Auto) 0.4, Absolute Neuts (auto) 3.7, Absolute Lymphs (auto) 0.83, Nucleated RBC % 0, Sodium 138, Potassium 3.8, Chloride 109 H, Carbon Dioxide 25.0, Anion Gap 4 L, BUN 8, Creatinine 0.64, Estim Creat Clear Calc 97.87, Est GFR (MDRD) Af Amer 129, Est GFR (MDRD) Non-Af 106, BUN/Creatinine Ratio 12.4, Glucose 231 H, Calcium 8.5, Total Bilirubin 0.20, AST 19, ALT 24, Alkaline Phosphatase 126 H, Total Protein 6.0 L, Albumin 2.5 L, Globulin 3.5, Albumin/Globulin Ratio 0.7 L Radiography Diagnostic Testing: Radiology Impression Endo Retro Cholangiopancreatogram 01/03/23 17:15 IMPRESSION: Fluoroscopic guided ERCP. Electronically Signed: Jake Garland MD at 19:03 EDT , Physical Exam Const alert and no apparent distress HEENT head/scalp atraumatic Resp normal respiratory effort, no retractions, no use of accessory muscles and clearto auscultation bilaterally Cardio regular rate, regular rhythm, S1 normal heart sound and S2 normal heart sound GI normal to inspection, nondistended, normoactive bowel sounds GI Narrative: upper abdominal tenderness. No masses. Extremity normal to inspection Assessment & Plan Assessment/Plan (1) Abdominal pain: QUALIFIERS: Abdominal location: right upper quadrant Qualified Code(s): R10.11 - Right upper quadrant pain PLAN: 2/2 biliary sludge Recurrent abdominal pain, worsening with recent choledocholithiasis requiring stent placement: Data: * Recent MRCP with concern for worsening mass effect of the distal common bile duct with increasing biliary dilatation with noted nodular thickening of the ampulla * follow-up ERCP with removal of common bile duct stones with biliary sphincterotomy with dilatation of the common bile duct and temporary stent placement * CT showed Dilated common bile duct measuring 1.5 cm in diameter, increased as compared to 12/17/2022 CT. Common bile duct stent appears stable. Newly visualized intrahepatic duct dilation and pneumobilia. Findings are concerning for a worsening distal common duct obstruction. Distended gallbladder with no evidence of cholecystitis. Splenic varices likely representing portal venous hypertension. GI consulted. ERCP 01/03 biliary sphincterotomy performed with biliary tree was swept and sludge removed. General surgery consult. No plans for cholecystectomy at this time. Continue IVF, pain control and antiemetics. 01/04: abdominal pain worse. Clinically appears stable. DW pt about addressing constipation. If has a decent BM and still has abdominal pain, will check a CT. Pt agreable. PLAN: Plan Chronic complicating conditions: * Hx EtOH Abuse with history of pancreatitis and alcoholic hepatitis: Patient prior with routine consumption of 4 vodka type drinks daily, EtOH level curr ently unremarkable and notes sober x 2 weeks. Encouraged continued sobriety. MVI, thiamine and folic acid. Case management consulted. * Portal vein thrombosis: Following w/ Dr. Urena, from most recent records had been on lovenox 90 mg daily with 12/01/22 CTA with patent portal vein thus lovenox decreased to 60 mg daily. * Hypertension: Continue home regimen including lisinopril, amlodipine, PRN hydralazine. * Hyperlipidemia: Not on regimen, given chronic issues with alcoholic hepatitis deferred. * Tobacco Abuse: Encouraged cessation, inpatient consultation per RT, NR if desired. * GERD: Continue patient on PPI. DVT prophylaxis: Continue lovenox 60 mg SC daily. Charges/Coding Visit Charges Inpatient E&M: 32084 Subs Hosp L2 01/04/23 1300 <Electronically signed by Sal Cassidy DO> Cosigner Signature (if applicable): CC: ~ Signed [facility] Work Phone: 1(125) 627-626908-01-2023 Progress note Author Chandler Friend [facility] January 03, 2023 5:05pm Note Date/Time January 03, 2023 5:0 5pm [facility] Medical Records Department [address] [facility] [place] [address] Progress Note - GI 01/03/23 1400 MR#: [id number] Acct: [id number] Name: MELVA KERNS OCTOBER Rep #:[id number] : 1980 42 From: Chandler Salamanca DO PCP: Care Physician,No Primary Status :ADM IN Location: [place] [address] Subjective Subjective Patient is still complaining of abdominal pain. She rates her abdominal pain tone 6 out of 10. Objective Data Objective Data Vital Signs: Vital Signs Temp Pulse Resp BP Pulse Ox O2 Del Method 98 F 68 16 108/84 H 100 Room Air 01/03/23 14:48 01/03/23 14:48 01/03/23 14:48 01/03/23 14:48 01/03/23 14:48 01/03/23 14:48 Oxygen Delivery Method Room Air Weight: 125 lb 14.143 oz Body Mass Index (BMI) 21.4 Intake & Output: Intake and Output for Last 24 Hours 01/01/23 01/02/23 01/03/23 23:59 23:59 23:59 Intake Total 4295.00 / 4295.00 2559.58 / 2559.58 Output Total 400 / 400 Balance 4295.00 / 3895.00 2159.58 / 2159.58 Lab / Micro Data 01/03/23 05:28 01/03/23 05:28 Labs: Laboratory Results - last 24 hr 01/03/23 05:28: WBC 5.6, RBC 3.37 L, Hgb 10.9 L, Hct 34.2 L, MCV 101.5 H, MCH 32.3 H, MCHC 31.9 L, RDW Std Deviation 50.8 H, RDW Coeff of Frankie 13.6, Plt Count 403, MPV 9.4, Immature Gran % (Auto) 0.200, Neut % (Auto) 50.0, Lymph % (Auto) 35.1, Vigo % (Auto) 8.0, Eos % (Auto) 5.1 H, Baso % (Auto) 1.6 H, Absolute Neuts(auto) 2.8, Absolute Lymphs (auto) 1.98, Nucleated RBC % 0, Sodium 141, Potassium 3.8, Chloride 111 H, Carbon Dioxide 29.0, Anion Gap 1 L, BUN 6 L, Creatinine 0.65, Estim Creat Clear Calc 96.37, Est GFR (MDRD) Af Amer 128, Est GFR (MDRD) Non-Af 106, BUN/Creatinine Ratio 9.2 L, Glucose 98, Calcium 8.4 L, Total Bilirubin 0.20, AST 22, ALT 29, Alkaline Phosphatase 144 H, Total Protein 5.9 L, Albumin 2.6 L, Globulin 3.3, Albumin/Globulin Ratio 0.8 L Physical Exam Const oriented x3 Resp normal respiratory effort GI GI Narrative: Nondistended soft, tenderness present in the epigastrium with palpation. Negative Lindsay sign. Assessment & Plan Assessment/Plan (1) Leukocytosis: QUALIFIERS: Leukocytosis type: other Qualified Code(s): D72.828 -Other elevated white blood cell count PLAN: resolved (2) Transaminitis: PLAN: Transaminitis possibly secondary to alcoholic hepatitis although I suspectthat there is some elements of chronic liver disease due to the fact that the ALT is greater than AST. That is not the classic alcoholic hepatitis pattern. There is no sign of chronic viral hepatitis from current work-up. She did have anti-[employer] antibody that is positive but that is associated mixed connective tissue disease and not usually associated with acute transaminitis secondary to acute hepatitis likely from ischemic disease versus acute alcoholic hepatitis. (3) Pancreatitis: QUALIFIERS: Chronicity: acute Pancreatitis type: alcohol induced Acute pancreatitis complication: no infection or necrosis Qualified Code(s): K85.20 - Alcohol induced acute pancreatitis without necrosis or infection PLAN: Acute alcoholic pancreatitis which was complicated by thrombosis of the mesenteric vessels. Her recent CT scan abdomen pelvis today did not show any signs of thrombosis in the portal vein or mesenteric vessels. It did display splenic varices. There was no sign of varices in her stomach. There is also no sign of pancreatitis om imaging at this time. Work-up for an autoimmune cause such as IgG4 related type I autoimmune pancreatitis is negative. I suspect all this is from alcohol. However she doeshave a positive COLTON cardiolipin antibody. Repeat ESR and CRP for some objective data regarding her current pancreatitis admission. No sign of abdominal pain at this time secondary to history of pancreatitis. 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 There is arisk of transformation to hemorrhagic pancreatitis. I discussed this with the patient in detail and showed her the pictures of the large thrombosis involving the portal vein and other splenic vasculature. Repeat CT scan of the abdomen pelvis did not show any occlusive thrombosis of the portal vein which is really good. We would likely need hematology recommendations regarding long-term treatment of superior mesenteric and portal vein thrombosis. There was no sign of varices that were seen on repeat imaging in the stomach. (5) Abnormal magnetic resonance cholangiopancreatography (MRCP): PLAN: h/o Abnormal stricture noted in the distal one third of the pancreatic duct. Cytology was taken via brushings via ERCP yesterday. Stent was also placed. 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 She continues on anticoagulation. Charges/Coding Visit Charges Inpatient E&M: 32482 Subs Hosp 01/03/23 1705 <Electronically signed by Chandler Salamanca DO> Cosigner Signature (if applicable): CC: ~ Signed [facility] Work Phone: 1(441) 104-596608-01-2023 Procedure [facility] 01-03-2023 Procedure [facility]08-01-2023 Progress note Author Sal Cassidy [facility] January 03, 2023 12:10pm Note Date/Time January 03, 2023 7:1 8am [facility] Medical Records Department [address] [place] [address] Progress Note - Hospitalist 01/03/23 0714 MR#: [id number] Acct: [id number] Name: MELVA KERNS Rep #:[id number] : 1980 42 From: Sal Cassidy DO PCP: Care Physician,No Primary Status :ADM TRACE Location: [place] [address] Reason for Visit Reason for Visit: Diagnoses Elevated white blood cell count, unspecified (01/02/23) Acute embolism and thrombosis of unspecified vein (01/02/23) Acute infarction of intestine, part and extent unspecified (01/02/23) Alcohol induced acute pancreatitis without necrosis or infection (01/02/23) Unspecified abdominal pain (01/02/23) Elevation of levels of liver transaminase levels (01/02/23) Abnormal findings on diagnostic imaging of other parts of digestive tract (01/02/23) Subjective Subjective Still with abdominal pain. RUQ. No change. Objective Data Objective Data Vital Signs: Vital Signs Temp Pulse Resp BP Pulse Ox O2 Del Method 36.7 C 74 16 116/78 99 Room Air 01/03/23 03:01 01/03/23 03:01 01/03/23 03:01 01/03/23 03:01 01/03/23 03:01 01/03/23 03:01 Oxygen Delivery Method Room Air Weight: 57.1 kg Body Mass Index (BMI) 21.4 Intake & Output: Intake and Output for Last 24 Hours 01/01/23 01/02/23 01/03/23 23:59 23:59 23:59 Intake Total 4295.00 / 4295.00 1122.92 / 1122.92 Output Total 400 / 400 Balance 4295.00 / 3895.00 722.92 / 722.92 Lab / Micro Data 01/03/23 05:28 01/03/23 05:28 Labs: Laboratory Results - last 24 hr 01/03/23 05:28: WBC 5.6, RBC 3.37 L, Hgb 10.9 L, Hct 34.2 L, MCV 101.5 H, MCH 32.3 H, MCHC 31.9 L, RDW Std Deviation 50.8 H, RDW Coeff of Frankie 13.6, Plt Count 403, MPV 9.4, Immature Gran % (Auto) 0.200, Neut % (Auto) 50.0, Lymph % (Auto) 35.1, Vigo % (Auto) 8.0, Eos % (Auto) 5.1 H, Baso % (Auto) 1.6 H, Absolute Neuts(auto) 2.8, Absolute Lymphs (auto) 1.98, Nucleated RBC % 0, Sodium 141, Potassium 3.8, Chloride 111 H, Carbon Dioxide 29.0, Anion Gap 1 L, BUN 6 L, Creatinine 0.65, Estim Creat Clear Calc 96.37, Est GFR (MDRD) Af Amer 128, Est GFR (MDRD) Non-Af 106, BUN/Creatinine Ratio 9.2 L, Glucose 98, Calcium 8.4 L, Total Bilirubin 0.20, AST 22, ALT 29, Alkaline Phosphatase 144 H, Total Protein 5.9 L,Albumin 2.6 L, Globulin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 stopping anticoagulation due to patient having incomplete thrombosis. We will await recommendations. 08/04: Oncology is okay with the patient going on heparin subcutaneous injections for the 2 thrombosis that were seen. (5) Abnormal magnetic resonance cholangiopancreatography (MRCP): PLAN: Abnormal stricture noted in the distal one third of the pancreatic duct. Cytology was taken via brushings via ERCP yesterday. Stent was also placed. 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 She continues on anticoagulation. Charges/Coding Visit Charges Inpatient E&M: 30482 Subs Hosp L3 12/20/22 1708 <Electronically signed by Chandler Salamanca DO> Cosigner Signature (if applicable): CC: ~ Signed [facility] Work Phone: [phone] 927-905007-18-2023 Progress note Author Sal Cassidy [facility] December 20, 2022 3:34pm Note Date/Time December 20, 2022 7:21 am [facility] Medical Records Department [address] [place] [id number] Progress Note - Hospitalist 12/20/22 0719 MR#: [id number] Acct: [id number] Name: MELVA KERNS Rep #:[id number] : 1980 42 From: Sal Cassidy DO PCP: Care Physician,No Primary Status :ADM IN Location: [place] [address] Reason for Visit Reason for Visit: Diagnoses Elevated white blood cell count, unspecified (12/14/22) Hypomagnesemia (12/14/22) Hypokalemia (12/14/22) Alcohol abuse, uncomplicated (12/14/22) Essential (primary) hypertension (12/14/22) Portal vein thrombosis (12/14/22) Acute embolism and thrombosis of unspecified vein (12/14/22) Acute infarction of intestine, part and extent unspecified (12/14/22) Alcohol induced acute pancreatitis without necrosis or infection (12/14/22) Hypoxemia (12/14/22) Left upper quadrant pain (12/14/22) Elevation of levels of liver transaminase levels (12/14/22) Other specified abnormal findings of blood chemistry (12/14/22) Bacteriuria (12/14/22) Abnormal findings on diagnostic imaging of other parts of digestive tract (12/14/22) Subjective Subjective Bx cancelled due to respirations. Abdominal pain improved. Objective Data Objective Data Vital Signs: Vital Signs Temp Pulse Resp BP Pulse Ox O2 Del Method O2 Flow Rate 36.8 C 88 18 128/91 H 94 Nasal Cannula 2 12/20/22 04:15 12/20/22 04:15 12/20/22 04:15 12/20/22 04:15 12/20/22 04:15 12/20/22 04:15 12/20/22 04:15 Oxygen Flow Rate (L/min) 2 Oxygen Delivery Method Nasal Cannula Weight: 60.509 kg Body Mass Index (BMI) 22.8 Intake & Output: Intake and Output for Last 24 Hours 12/18/22 12/19/22 12/20/22 23:59 23:59 23:59 Intake Total 3725.0 / 3725.0 3000 / 3000 1502.5 / 1502.5 Balance 3725.0 / 3725.0 3000 / 3000 1502.5 / 1502.5 Lab / Micro Data 12/17/22 06:39 12/20/22 05:35 Labs: Laboratory Results - last 24 hr 12/17/22 08:35: Carcinoembryonic Ag 4.9 H, CA 19-9 Antigen 11, CA 19-9 Serial Monitor Not Reportable 12/20/22 05:35: Sodium 138, Potassium 4.4, Chloride 108 H, Carbon Dioxide 27.0, Anion Gap 3 L, BUN 7, Creatinine 0.65, Estim Creat Clear Calc 96.37, Est GFR (MDRD) Af Amer 129, Est GFR (MDRD) Non-Af 106, BUN/Creatinine Ratio 10.8, Glucose 104, Calcium 8.5, Total Bilirubin 0.70, AST 93 H, ALT 159 H, Alkaline Phosphatase 199 H, Total Protein 6.2 L, Albumin 2.3 L, Globulin 3.9, Albumin/Globulin Ratio 0.6 L Physical Exam Const alert and no apparent distress Resp normal respiratory effort, no retractions and no use of accessory muscles Resp Narrative: bibasilar crackles. Cardio Cardio Narrative: tachycardia. GI normal to inspection, nondistended, normoactive bowel sounds GI Narrative: less tender. no rebound. Assessment & Plan Assessment/Plan (1) Pancreatitis: QUALIFIERS: Acute pancreatitis complication: no infection or necrosis Chronicity: acute Pancreatitis type: alcohol induced Qualified Code(s): K85.20 - Alcohol induced acute pancreatitis without necrosis or infection PLAN: Alcohol induced. Patient had been sober for several months and then started drinking again recently. Timing of that suggest that this is again acute alcohol induced pancreatitis particular given her history. Data: * GB US showed bile duct dilation * MRCP lower CBD narrowing. * ERCP main BD moderately dilated 2/2 a stricture. Choledocholithiasis w complete removal w sphinterotomy and balloon extraction. Stent placed * CEA, CA 19-9 pending * pancreatic CT showed mild prominent pancreatic duct. no focal acute infl ammation process. Plan: * IV fluids, pain control and antiemetics. * GI following (2) Transaminitis: PLAN: May be secondary to alcohol. GB US showed extrahepatic biliary ductal dilation and pancreatic ductal dilation Check MRCP Continue to monitor. FREDI Salamanca. Recommends liver Bx. (3) Hypokalemia: PLAN: Resolved with replacement (4) Hypertension, accelerated: PLAN: Will add as needed hydralazine Patient takes 5 mg lisinopril at home. Persistent, increase lisinopril to 20 Ongoing, will amlodipine (5) Alcohol abuse: PLAN: Had been sober for several months prior to resuming drinking again. Patient underweight been drinking for few days so I do not feel the patient is to be going through any alcohol withdrawal. Supportive management Add thiamine and folic acid (6) Hypomagnesemia: PLAN: replaced monitor (7) Hypoxia: PLAN: CXR showed ATX PEP on oxygen (8) Bacteriuria: PLAN: Only 10-25 white cells in the urine. Did have 3+ bacteria but did appear to be concentrated. Patient did receive ceftriaxone in the ED. We will hold off any additional antibiotics at this time. (9) CHF exacerbation: QUALIFIERS: Heart failure type: unspecified Qualified Code(s): I50.9 - Heart failure, unspecified PLAN: doubt pneumonia given pleural effusion and s/s infection unclear type had receive 20liters of fluid (unknown output) HLIV furosemide check echo PLAN: Plan Chronic conditions * Portal vein thrombosis: Enoxaparin 1.5 mg/kg daily. Hold in anticipation of biopsy. VTE prophylaxis: Not indicated as patient is already anticoagulated. 12/18: Pt stated that she is being told different things about her diet. She Kelly told her not to eat. I told her yesterday to see how she did with liquids, then she could be advanced. Dr. Salamanca then changed her diet. She is upset abouther pain. I told her that the morphine is for breakthrough pain, which she stated she knew. She asked when she could leave. I told her she was not medically ready for discharge. I encouraged trying ketorolac to help with pain. I toldher I am concerned about the narcotics related to her respiratory issues that she experiencing yesterday, in addition to lorazepam, which had been discontinued. I told she can leave AMA, however, if she does, I told her I wouldnot prescribe any narcotics. She said, you keep saying that--I hadn't. I will continue oxycodone and breakthrough morphine. Add ketorolac scheduled for the next 2 days. Charges/Coding Visit Charges Inpatient E&M: 42549 [facility] Hosp L2 12/20/22 1532 <Electronically signed by Sal Cassidy DO> Cosigner Signature (if applicable): CC: ~ Signed [facility] Work Phone: [phone]) 186-828707-17-2023 Progress note Author Sal Cassidy [facility] December 19, 2022 11:44am Note Date/Time December 19, 2022 7:31 am [facility] Medical Records Department [address] [place] [address] Progress Note - Hospitalist 12/19/22 0728 MR#: [id number] Acct: [id number] Name: MELVA KERNS OCTOBER Rep #:[id number] : 1980 42 From: Sal Cassidy DO PCP: Care Physician,No Primary Status :ADM IN [place] [facility] [id number] Reason for Visit Reason for Visit: Diagnoses Elevated white blood cell count, unspecified (12/14/22) Hypomagnesemia (12/14/22) Hypokalemia (12/14/22) Alcohol abuse, uncomplicated (12/14/22) Essential (primary) hypertension (12/14/22) Portal vein thrombosis (12/14/22) Acute embolism and thrombosis of unspecified vein (12/14/22) Acute infarction of intestine, part and extent unspecified (12/14/22) Alcohol induced acute pancreatitis without necrosis or infection (12/14/22) Hypoxemia (12/14/22) Left upper quadrant pain (12/14/22) Elevation of levels of liver transaminase levels (12/14/22) Other specified abnormal findings of blood chemistry (12/14/22) Bacteriuria (12/14/22) Abnormal findings on diagnostic imaging of other parts of digestive tract (12/14/22) Subjective Subjective Still with abdominal pain Objective Data Objective Data Vital Signs: Vital Signs Temp Pulse Resp BP Pulse Ox O2 Del Method O2 Flow Rate 37.1 C 108 H 18 164/112 H 92 Nasal Cannula 2 12/19/22 06:48 12/19/22 06:48 12/19/22 06:48 12/19/22 06:48 12/19/22 07:02 12/19/22 07:02 12/19/22 07:02 Oxygen Flow Rate (L/min) 2 Oxygen Delivery Method Nasal Cannula Weight: 60.509 kg Body Mass Index (BMI) 22.8 Intake & Output: Intake and Output for Last 24 Hours 12/17/22 12/18/22 12/19/22 23:59 23:59 23:59 Intake Total 4242.5 / 4242.5 3725.0 / 3725.0 1000 / 1000 Balance 4242.5 / 4242.5 3725.0 / 3725.0 1000 / 1000 Lab / Micro Data 12/17/22 06:39 12/19/22 05:20 Labs: Laboratory Results - last 24 hr 12/19/22 05:20: Sodium 137, Potassium 4.4, Chloride 105, Carbon Dioxide 28.0, Anion Gap 4 L, BUN 6 L, Creatinine 0.72, Estim Creat Clear Calc 87.00, Est GFR (MDRD) Af Amer 113, Est GFR (MDRD) Non-Af 93, BUN/Creatinine Ratio 8.3 L, Glucose 106, Calcium 9.0, Total Bilirubin 1.10 H, AST 259 H, ALT 258 H, AlkalinePhosphatase 261 H, Total Protein 6.6, Albumin 2.6 L, Globulin 4.0, Albumin/Globulin Ratio 0.6 L Radiography Diagnostic Testing: Radiology Impression Endo Retro Cholangiopancreatogram 12/16/22 15:40 IMPRESSION: 1. ERCP examination with balloon sweep and biliary stent placed. No retained filling defects noted. Electronically Signed: Andreas Liu MD at 7:46 EDT , Physical Exam Const alert and no apparent distress HEENT head/scalp atraumatic Resp normal respiratory effort and no retractions Cardio regular rate, regular rhythm, S1 normal heart sound and S2 normal heart sound GI normal to inspection, nondistended, normoactive bowel sounds, soft to palpation,non-tender and non-distended Extremity normal to inspection Assessment & Plan Assessment/Plan (1) Pancreatitis: QUALIFIERS: Acute pancreatitis complication: no infection or necrosis Chronicity: acute Pancreatitis type: alcohol induced Qualified Code(s): K85.20 - Alcohol induced acute pancreatitis without necrosis or infection PLAN: Alcohol induced. Patient had been sober for several months and then started drinking again recently. Timing of that suggest that this is again acute alcohol induced pancreatitis particular given her history. Data: * GB US showed bile duct dilation * MRCP lower CBD narrowing. * ERCP main BD moderately dilated 2/2 a stricture. Choledocholithiasis w complete removal w sphinterotomy and balloon extraction. Stent placed * CEA, CA 19-9 pending * pancreatic CT showed mild prominent pancreatic duct. no focal acute inflammation process. Plan: * IV fluids, pain control and antiemetics. * GI following (2) Transaminitis: PLAN: May be secondary to alcohol. GB US showed extrahepatic biliary ductal dilation and pancreatic ductal dilation Check MRCP Continue to monitor. FREDI Salamanca. He feels pt may require liver Bx. He will discuss with patient. (3) Hypokalemia: PLAN: Resolved with replacement (4) Hypertension, accelerated: PLAN: Will add as needed hydralazine Patient takes 5 mg lisinopril at home. Persistent, increase lisinopril to 20 Ongoing, will amlodipine (5) Alcohol abuse: PLAN: Had been sober for several months prior to resuming drinking again. Patient underweight been drinking for few days so I do not feel the patient is to be going through any alcohol withdrawal. Supportive management Add thiamine and folic acid (6) Hypomagnesemia: PLAN: replaced monitor (7) Hypoxia: PLAN: CXR showed ATX PEP on oxygen (8) Bacteriuria: PLAN: Only 10-25 white cells in the urine. Did have 3+ bacteria but did appear to be concentrated. Patient did receive ceftriaxone in the ED. We will hold off any additional antibiotics at this time. PLAN: Plan Chronic conditions * Portal vein thrombosis: Enoxaparin 1.5 mg/kg daily. Hold in anticipation of biopsy. VTE prophylaxis: Not indicated as patient is already anticoagulated. 12/18: Pt stated that she is being told different things about her diet. She Kelly told her not to eat. I told her yesterday to see how she did with liquids, then she could be advanced. Dr. Salamanca then changed her diet. She is upset abouther pain. I told her that the morphine is for breakthrough pain, which she stated she knew. She asked when she could leave. I told her she was not medically ready for discharge. I encouraged trying ketorolac to help with pain. I told her I am concerned about the narcotics related to her respiratory issues that she experiencing yesterday, in addition to lorazepam, which had been discontinued. I told she can leave AMA, however, if she does, I told her I wouldnot prescribe any narcotics. She said, you keep saying that--I hadn't. I will continue oxycodone and breakthrough morphine. Add ketorolac scheduled for the next 2 days. Charges/Coding Visit Charges Inpatient E&M: 86973 Subs Hosp L2 12/19/22 1144 <Electronically signed by Sal Cassidy DO> Cosigner Signature (if applicable): CC: ~ Signed [facility] Work Phone: [phone] Progress note Author Sal Cassidy [facility] December 18, 2022 9:49am Note Date/Time December 18, 2022 7:57 am [facility] Medical Records Department [address] [place] [address] Progress Note - Hospitalist 12/18/22 0752 MR#: [id number] Acct: [id number] Name: MELVA KERNS OCTOBER Rep #:[id number] : 1980 42 From: Sal Cassidy DO PCP: Care Physician,No Primary Status :ADM [place] [facility] [id number] Reason for Visit Reason for Visit: Diagnoses Elevated white blood cell count, unspecified (12/14/22) Hypomagnesemia (12/14/22) Hypokalemia (12/14/22) Alcohol abuse, uncomplicated (12/14/22) Essential (primary) hypertension (12/14/22) Portal vein thrombosis (12/14/22) Acute embolism and thrombosis of unspecified vein (12/14/22) Acute infarction of intestine, part and extent unspecified (12/14/22) Alcohol induced acute pancreatitis without necrosis or infection (12/14/22) Left upper quadrant pain (12/14/22) Elevation of levels of liver transaminase levels (12/14/22) Other specified abnormal findings of blood chemistry (12/14/22) Bacteriuria (12/14/22) Abnormal findings on diagnostic imaging of other parts of digestive tract (12/14/22) Subjective Subjective Upset that she is being told different things by different providers. Upset thatI told that couldn't eat and then Dr. Salamanca said she could. Upset that she can't morphine when she wakes up because that is when pain is the worse. Asks when she can leave. Asks if she can be transferred. Objective Data Objective Data Vital Signs: Vital Signs Temp Pulse Resp BP Pulse Ox O2 Del Method O2 Flow Rate 36.1 C L 79 16 146/107 H 99 Nasal Cannula 2 12/18/22 07:47 12/18/22 07:47 12/18/22 07:47 12/18/22 07:47 12/18/22 07:47 12/18/22 07:47 12/18/22 07:47 Oxygen Flow Rate (L/min) 2 Oxygen Delivery Method Nasal Cannula Weight: 60.509 kg Body Mass Index (BMI) 22.8 Intake & Output: Intake and Output for Last 24 Hours 12/16/22 12/17/22 12/18/22 23:59 23:59 23:59 Intake Total 3255.83 / 3255.83 4242.5 / 4242.5 905 / 905 Balance 3255.83 / 3255.83 4242.5 / 4242.5 905 / 905 Lab / Micro Data 12/17/22 06:39 12/18/22 05:48 Labs: Laboratory Results - last 24 hr 12/17/22 06:39: Sodium 136, Potassium 4.3, Chloride 106, Carbon Dioxide 23.0, Anion Gap 7, BUN 5 L, Creatinine 0.61, Estim Creat Clear Calc 102.69, Est GFR (MDRD) Af Amer 137, Est GFR (MDRD) Non-Af 113, BUN/Creatinine Ratio 8.2 L, Glucose 132 H, Calcium 8.6, Magnesium 1.8, Total Bilirubin 0.70, AST 202 H, ALT 209 H, Alkaline Phosphatase 166 H, Total Protein 7.1, Albumin 3.1 L, Globulin 4.0, Albumin/Globulin Ratio 0.8 L 12/18/22 05:48: Sodium 138, Potassium 3.8, Chloride 106, Carbon Dioxide 28.0, Anion Gap 4 L, BUN 3 L, Creatinine 0.63, Estim Creat Clear Calc 99.43, Est GFR (MDRD) Af Amer 133, Est GFR (MDRD) Non-Af 110, BUN/Creatinine Ratio 4.8 L, Glucose 110 H, Calcium 8.4 L, Total Bilirubin 0.90, AST 212 H, ALT 220 H, Alkaline Phosphatase 209 H, Total Protein 6.4, Albumin 2.7 L, Globulin 3.7, Albumin/Globulin Ratio 0.7 L Radiography Diagnostic Testing: Radiology Impression Endo Retro Cholangiopancreatogram 12/16/22 15:40 IMPRESSION: 1. ERCP examination with balloon sweep and biliary stent placed. No retained filling defects noted. Electronically Signed: Andreas Liu MD at 7:46 EDT , Abdomen CT 12/17/22 11:27 IMPRESSION: 1. Status post common bile duct stent placement. 2. Mild prominent pancreatic duct. 3. No focal acute inflammatory process. 4. Atelectatic changes in both lower lungs. Pneumonic process in the left lower lung cannot be entirely excluded. Electronically Signed: Esvin Go MD at 14:13 EDT , Physical Exam Const Constitutional Narrative: up in bed tearful. minimal eye contact. HEENT head/scalp atraumatic Assessment & Plan Assessment/Plan (1) Pancreatitis: QUALIFIERS: Acute pancreatitis complication: no infection or necrosis Chronicity: acute Pancreatitis type: alcohol induced Qualified Code(s): K85.20 - Alcohol induced acute pancreatitis without necrosis or infection PLAN: Alcohol induced. Patient had been sober for several months and then started drinking again recently. Timing of that suggest that this is again acute alcohol induced pancreatitis particular given her history. Data: * GB US showed bile duct dilation * MRCP lower CBD narrowing. * ERCP main BD moderately dilated 2/2 a stricture. Choledocholithiasis w complete removal w sphinterotomy and balloon extraction. Stent placed * check CEA, CA 19-9 pending * pancreatic CT showed mild prominent pancreatic duct. no focal acute inflammat ion process. Plan: * IV fluids, pain control and antiemetics. * GI following (2) Hypokalemia: PLAN: Replaced in the ER Improved, but still low. Continue to replace (3) Bacteriuria: PLAN: Only 10-25 white cells in the urine. Did have 3+ bacteria but did appear to be concentrated. Patient did receive ceftriaxone in the ED. We will hold off any additional antibiotics at this time. (4) Transaminitis: PLAN: May be secondary to alcohol. GB US showed extrahepatic biliary ductal dilation and pancreatic ductal dilation Check MRCP Continue to monitor. (5) Hypertension, accelerated: PLAN: Will add as needed hydralazine Patient takes 5 mg lisinopril at home. Persistent, increase lisinopril to 20 (6) Alcohol abuse: PLAN: Had been sober for several months prior to resuming drinking again. Patient underweight been drinking for few days so I do not feel the patient is to be going through any alcohol withdrawal. Supportive management Add thiamine and folic acid (7) Hypomagnesemia: PLAN: replaced monitor (8) Hypoxia: PLAN: CXR showed ATX PEP on oxygen PLAN: Plan Chronic conditions * Portal vein thrombosis: Enoxaparin resumed at weight based dosing (previously was on 90mg, now on 60mg BID). Follow up with hematology. VTE prophylaxis: Not indicated as patient is already anticoagulated. 12/18: Pt stated that she is being told different things about her diet. She Kelly told her not to eat. I told her yesterday to see how she did with liquids, then she could be advanced. Dr. Salamanca then changed her diet. She is upset abouther pain. I told her that the morphine is for breakthrough pain, which she stated she knew. She asked when she could leave. I told her she was not medically ready for discharge. I encouraged trying ketorolac to help with pain. I told her I am concerned about the narcotics related to her respiratory issues that she experiencing yesterday, in addition to lorazepam, which had been discontinued. I told she can leave AMA, however, if she does, I told her I wouldnot prescribe any narcotics. She said, you keep saying that--I hadn't. I will continue oxycodone and breakthrough morphine. Add ketorolac scheduled for the next 2 days. Greater than 35 minutes of which greater than 50% of the time was counseling thepatient as above about treating her pain. Charges/Coding Visit Charges Inpatient E&M: 19867 Subs Hosp L2 12/18/22 0949 <Electronically signed by Sal Cassidy DO> Cosigner Signature (if applicable): CC: ~ Signed [facility] Work Phone: [phone]) 655-462307-15-2023 Progress note Author Chandler Salamanca [facility] December 17, 2022 3:33pm Note Date/Time December 17, 2022 3:31 pm [facility] Medical Records Department [address] [place] [id number] Progress Note - GI 12/17/22 1528 MR#: [id number] Acct: [id number] Name: MELVA KERNS OCTOBER Rep #:[id number] : 1980 42 From: Chandler Salamanca DO PCP: Care Physician,No Primary Status :ADM IN [place] [facility] [id number] Subjective Subjective Patient is still complaining of abdominal pain. This is the same pain that she had when she presented with acute pancreatitis on admission. She states that she is hungry. She is tolerating a liquid diet. She has not had a bowel movement yet. She was given stool softener. Objective Data Objective Data Vital Signs: Vital Signs Temp Pulse Resp BP Pulse Ox O2 Del Method O2 Flow Rate 98.1 F 110 H 16 165/127 H 86 Room Air 2 12/17/22 14:00 12/17/22 14:00 12/17/22 14:00 12/17/22 14:00 12/17/22 14:00 12/17/22 14:00 12/16/22 17:18 Oxygen Flow Rate (L/min) 2 Oxygen Delivery Method Room Air Weight: 133 lb 6.4 oz Body Mass Index (BMI) 22.8 Intake & Output: Intake and Output for Last 24 Hours 12/15/22 12/16/22 12/17/22 23:59 23:59 23:59 Intake Total 4171.17 / 4171.17 3255.83 / 3255.83 3000 / 3000 Balance 4171.17 / 4171.17 3255.83 / 3255.83 3000 / 3000 Lab / Micro Data 12/17/22 06:39 12/17/22 06:39 Labs: Laboratory Results - last 24 hr 12/17/22 06:39: WBC 6.8, RBC 3.59 L, Hgb 12.1, Hct 37.5, MCV 104.5 H, MCH 33.7 H, MCHC 32.3, RDW Std Deviation 57.1 H, RDW Coeff of Frankie 14.7 H, Plt Count 189, MPV 10.2, Immature Gran % (Auto) 0.400, Neut % (Auto) 71.0 H, Lymph % (Auto) 19.5, Vigo % (Auto) 8.4, Eos % (Auto) 0.6, Baso % (Auto) 0.1, Absolute Neuts (auto) 4.8, Absolute Lymphs (auto) 1.33, Nucleated RBC % 0, Sodium 136, Potassium 4.3, Chloride 106, Carbon Dioxide 23.0, Anion Gap 7, BUN 5 L, Creatinine 0.61, Estim Creat Clear Calc 102.69, Est GFR (MDRD) Af Amer 137, Est GFR (MDRD) Non-Af 113, BUN/Creatinine Ratio 8.2 L, Glucose 132 H, Calcium 8.6, Magnesium 1.8, Total Bilirubin 0.70, AST 202 H, ALT 209 H, Alkaline Phosphatase 166 H, Total Protein 7.1, Albumin 3.1 L, Globulin 4.0, Albumin/Globulin Ratio 0.8 L Radiography Diagnostic Testing: Radiology Impression Abdomen CT 12/17/22 11:27 IMPRESSION: 1. Status post common bile duct stent placement. 2. Mild prominent pancreatic duct. 3. No focal acute inflammatory process. 4. Atelectatic changes in both lower lungs. Pneumonic process in the left lower lung cannot be entirely excluded. Electronically Signed: Esvin Go MD at 14:13 EDT , Physical Exam Const alert and no apparent distress HEENT head/scalp atraumatic and moist oral mucous membranes Resp normal respiratory effort, no retractions, no use of accessory muscles and clearto auscultation bilaterally Cardio regular rate, regular rhythm, S1 normal heart sound and S2 normal heart sound GI normal to inspection, nondistended, normoactive bowel sounds and soft to palpation GI Narrative: tender. Extremity normal to inspection Assessment & Plan Assessment/Plan (1) Leukocytosis: (2) Transaminitis: PLAN: Transaminitis possibly secondary to alcoholic hepatitis although I suspectthat there is some elements of chronic liver disease due to the fact that the ALT is greater than AST. That is not the classic alcoholic hepatitis pattern. There is no sign of chronic viral hepatitis from current work-up. She did have anti-[employer] antibody that is positive but that is associated mixed connective tissue disease and not usually associated with acute transaminitis secondary to acute hepatitis likely from ischemic disease versus acute alcoholic hepatitis. (3) Pancreatitis: QUALIFIERS: Chronicity: acute Pancreatitis type: alcohol induced Acute pancreatitis complication: no infection or necrosis Qualified Code(s): K85.20 - Alcohol induced acute pancreatitis without necrosis or infection PLAN: Acute alcoholic pancreatitis which was complicated by thrombosis of the mesenteric vessels. Her recent CT scan abdomen pelvis today did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 CTLS midline or paraspinal tenderness to palpation. GI: Soft, mild right upper quadrant tenderness palpation, mild left upper quadrant tenderness palpation, no peritoneal signs, abdomen is soft, no tympany,not rigid, moderate to severe midepigastric tenderness to palpation, no peritoneal signs, no flank pain bilateral, otherwise no tenderness to palpation, no masses appreciated. No rebound, mild guarding, or no rigidity noted. Musculoskeletal: The patient has full range of motion of all extremities and joints with no difficulty. Patient has no motor, no sensory deficits. Neurological: A&O x4, normal speech, no focal neurological deficits. Psychiatric: Cooperative Const Vital Signs: 12/14/22 11:22 Temperature 97.1 F L Temperature Source Temporal Pulse Rate 121 H Respiratory Rate 16 Blood Pressure 161/97 H Blood Pressure Mean 118 Pulse Ox 99 Oxygen Delivery Method Room Air MDM MDM MDM Narrative Medical decision making narrative: Patient's lipase is 787. Patient's AST ALT is a 2:1 ratio. Patient has historyof alcohol abuse, patient states that she been sober since July, and just had 2 drinks of vodka on Monday and Monday. Patient was initially given Zofranand Bentyl, patient stated that did not help with pain and she was given 1 mg ofDilaudid after I saw patient's lipase. Patient is not concerned about , patient wanted medication without getting a test initially. Patient's potassium was 2.7, patient states that she has had pancreatitis in thepast her potassium levels have been low as well. Patient is given oral and IV potassium. IV potassium was given over 4 hours. Patient is placed on phototypesetting equipment monitor. Patient will be admitted for hypokalemia, pancreatitis, he will further be evaluated. Dr Cassidy did not want a gallbladder ultrasound or any CAT scan ordered at this time, he said that he is seen evaluate the patient in the ER and order imaging as needed. IV KCL over 4 hours. Patient has evidence of UTI as well, she was given 1 g Rocephin, patient was given 2 L of IV fluid Critical care time 32 minutes exclusive from separate billable procedures that were performed. The following was considered in the determination of critical care but not limited to the level of medical decision making, intensive cardiac and/or respiratory monitoring, frequent vital sign monitoring, evaluation of laboratory studies, evaluation of radiographic studies, oxygen monitoring, and constant monitoring and speaking to family at bedside. Lab Data Attestation: I reviewed the patient's lab results. Labs: Laboratory Results - last 24 hr 12/14/22 12/14/22 13:55 14:45 WBC 6.0 RBC 3.93 L Hgb 13.1 Hct 38.9 MCV 99.0 MCH 33.3 H MCHC 33.7 RDW Std Deviation 54.9 H RDW Coeff of Frankie 15.0 H Plt Count 247 MPV 9.4 Immature Gran % (Auto) 0.200 Neut % (Auto) 77.4 H Lymph % (Auto) 14.5 L [place] % (Auto) 5.0 Eos % (Auto) 2.2 Baso % (Auto) 0.7 Absolute Neuts (auto) 4.7 Absolute Lymphs (auto) 0.87 Nucleated RBC % 0 Sodium 135 L Potassium 2.7 L* Chloride 99 Carbon Dioxide 29.0 Anion Gap 7 BUN 8 Creatinine 0.61 Estim Creat Clear Calc 102.69 Est GFR (MDRD) Af Amer 138 Est GFR (MDRD) Non-Af 114 BUN/Creatinine Ratio 13.1 Glucose 118 H Calcium 9.4 Total Bilirubin 0.50 AST 557 H ALT 272 H Alkaline Phosphatase 134 H Total Protein 7.7 Albumin 3.5 Globulin 4.2 Albumin/Globulin Ratio 0.8 L Lipase 787 H Urine Color Yellow Urine Clarity Sl. Cloudy Urine pH 6.0 Ur Specific [place] 1.020 Urine Protein 100 H Urine Glucose (UA) Normal Urine Ketones 5 H Urine Occult Blood 10 H Urine Nitrite Positive H Urine Bilirubin Negative Urine Urobilinogen Normal Ur Leukocyte Esterase 100 H Urine RBC 0-5 SEEN Urine WBC 10-25 SEEN Ur Squamous Epith Cells 0-5 SEEN Urine Bacteria 3+ Urine Mucus 0 SEEN Urine Test Negative Patient states that she has been sober since July, patient states that she just had 2 drinks of vodka Monday and Monday, but patient's AST and ALT is 2:1 ratio, bilirubin is normal, lipase elevated. Discharge Plan Dx/Rx/DC Orders Clinical Impression: Pancreatitis, Alcohol abuse, Abdominal pain, Hypokalemia, Abnormal liver function test, UTI (urinary tract infection) Disposition Disposition: Acute Care Hospital [facility] What to do if you have Problems For any increased pain, shortness of breath, bleeding, nausea or vomiting, chestpain, or any unexpected problems, contact your Primary Care Provider. Call [facility] ([phone]) or report to the closest Emergency Room. Call 911 if necessary. 12/14/22 1610 <Electronically signed by Jake Ackerman DO> Cosigner Signature (if applicable): CC: No Primary Care Physician ~ Signed [facility] Work Phone: 1(306) 522-865803-02-[address] Crouch [facility] August 04, 2022 6:30pm Note Date/Time August 04, 2022 6:18 pm [facility] Medical Records Department [address] [place] [address] Progress Note - Hospitalist 08/04/22 9962 MR#: [id number] Acct: [id number] Name: MELVA KERNS Rep #:[id number] : 1980 42 From: Monika Crouch MD PCP: Care Physician,No Primary Status :ADM IN Location: [place]3 SP891-6 Reason for Visit Reason for Visit: Diagnoses Elevated white blood cell count, unspecified (07/28/22) Hypomagnesemia (07/28/22) Hypokalemia (07/28/22) Portal vein thrombosis (07/28/22) Acute embolism and thrombosis of unspecified vein (07/28/22) Pleural effusion, not elsewhere classified (07/28/22) Acute infarction of intestine, part and extent unspecified (07/28/22) Acute pancreatitis without necrosis or infection, unspecified (07/28/22) Nausea with vomiting, unspecified (07/28/22) Elevation of levels of liver transaminase levels (07/28/22) Abnormal findings on diagnostic imaging of other parts of digestive tract (07/28/22) Subjective Subjective Continues to improve, still with abdominal pain but is trying to take only oral medication. Rash improved Objective Data Objective Data Vital Signs: Vital Signs Temp Pulse Resp BP Pulse Ox O2 Del Method O2 Flow Rate 98.6 F 82 16 150/99 H 100 Room Air 2 08/04/22 17:09 08/04/22 17:09 08/04/22 17:09 08/04/22 17:09 08/04/22 17:09 08/04/22 17:09 07/28/22 18:05 Oxygen Flow Rate (L/min) 2 Oxygen Delivery Method Room Air Weight: 61.689 kg Body Mass Index (BMI) 23.3 Intake & Output: Intake and Output for Last 24 Hours 08/02/22 08/03/22 08/04/22 23:59 23:59 23:59 Intake Total 4940 / 4940 4347.25 / 4347.25 1715. / 1714. Balance 4940 / 4940 4347.25 / 4347.25 171. / 1714. Lab / Micro Data Result Diagrams: 08/04/22 05:45 08/04/22 05:45 Labs: Laboratory Results - last 24 hr 08/03/22 19:25: Hgb 12.7 08/03/22 19:25: APTT 63.7 H, D-Dimer Quant (PE/DVT) 1.51 H* 08/04/22 05:45: WBC 5.6, RBC 3.33 L, Hgb 11.1 L, Hct 32.5 L, MCV 97.6, MCH 33.3 H, MCHC 34.2, RDW Std Deviation 48.0 H, RDW Coeff of Frankie 13.4, Plt Count 214, MPV 10.4, Immature Gran % (Auto) 0.400, Neut % (Auto) 54.4, Lymph % (Auto) 25.3,[place] % (Auto) 14.5 H, Eos % (Auto) 4.5, Baso % (Auto) 0.9, Absolute Neuts (auto)3.0, Absolute Lymphs (auto) 1.41, Nucleated RBC % 0, ESR 28 08/04/22 05:45: Sodium 138, Potassium 3.7, Chloride 103, Carbon Dioxide 27.0, Anion Gap 8, BUN 6 L, Creatinine 0.66, Estim Creat Clear Calc 94.91, Est GFR (MDRD) Af Amer 127, Est GFR (MDRD) Non-Af 105, BUN/Creatinine Ratio 9.2 L, Glucose 125 H, Calcium 9.2, Total Bilirubin 0.30, AST 49 H, ALT 46, Alkaline Phosphatase 94, C-React Prot Ext Range 15.50 H, Total Protein 6.1 L, Albumin 2.7L, Globulin 3.4, Albumin/Globulin Ratio 0.8 L, Prolactin 84.7 08/04/22 05:45: Lactic Acid 0.8 08/04/22 05:45: APTT 73.9 H 08/04/22 16:08: Urine Test Negative Micro: Microbiology 08/03/22 13:56 Mucosa - Nose Respiratory Panel (PCR) - Final 08/03/22 09:00 Interface Orders Legionella Antigen - Final 08/03/22 09:00 Interface Orders Streptococcus pneumoniae Antigen (M - Final 08/03/22 08:35 Nasal Secretion SARS-CoV-2 Antigen (Rapid) - Final 08/03/22 07:52 Mucosa - Nasopharyngeal Influenza Types A,B Direct FA (TERRELL) - Final 07/30/22 11:26 Interface Orders Group A Streptococcus Rapid Screen - Final 07/30/22 08:55 Nasal Secretion SARS-CoV-2 Antigen (Rapid) - Final Radiography Diagnostic Testing: Radiology Impression Chest X-Ray 08/04/22 05:55 IMPRESSION: Normal x-ray examination of the chest. Electronically Signed: Christos Krause MD at 9:47 EST , Physical Exam Narrative General: Alert, oriented, no apparent distress HEENT: Atraumatic, normocephalic Eyes: Anicteric, normal conjunctiva, extraocular movements grossly intact Neck: Supple Respiratory: Somewhat coarse in left lower lung base, normal respiratory effort Cardiovascular: Regular rate and rhythm GI: Soft, tenderness seems to be improving, nondistended Extremities: No edema Musculoskeletal: Moving all extremities Neuro: No overt focal neurological deficits Skin: Red patchy rash is resolved Psych: Cooperative Assessment & Plan Assessment/Plan (1) Pancreatitis: (2) Transaminitis: (3) Superior mesenteric vein thrombosis: (4) Hypokalemia: (5) Leukocytosis: (6) Nausea & vomiting: (7) Hypomagnesemia: (8) Pleural effusion: PLAN: Plan For 2-year-old female with a history of alcohol abuse, tobacco use, pancreatitis[facility] with abdominal pain/nausea/vomiting. It felt similar to previous episodes of pancreatitis and previous episodes had been presumed to be due to her alcohol intake. She was found to have heart rate of 106, leukocytosis mild at 11.9 with mild left shift. Potassium of 2.8 with normal renal function and AST 51, ALT 67 alk phos 131 witha lipase of 9420. She did have CT abdomen pelvis in the ED which demonstrated findings consistent with acute pancreatitis as well as a focal nonocclusive thrombus at the junction of the superior mesenteric vein and portal vein, varices in the splenic hilum and hepatomegaly with fatty infiltration of the liver. She was given aggressive IV fluids, pain medications, antiemetics and admitted. #Acute pancreatitis -Aggressive hydration, antiemetics, pain medication -GI consult -MRCP demonstrated mildly dilated common duct at 0.68 -Repeat CT done 07/30 showed low-attenuation foci in pancreatic tail and focal necrosis cannot be excluded -Clinically improving, clear liquid diet started and remains on fluids -Taper pain medication as able -ERCP once stable -08/02: Continues to report abdominal pain in the epigastric to left however seems to have less tenderness on exam, will begin transitioning pain medication to oral in preparation for discharge hopefully in the not distant future, remains on fluids, discussed with GI and will advance diet. -08/03: Continue to wean pain medications, tolerating transitional diet, remains on fluids. 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 Urena post imaging and given entire clinical picture and scan there was advised that we could consider continuing anticoagulation and transitioning to Lovenox. He recommended gettinga D-dimer and having her follow-up with him in the outpatient setting to determine duration of therapy -08/04: Transition to Lovenox, discussed with her at length #Hospital-acquired pneumonia -Increased cough and congestion with infiltrate observed on CT -Was started on Vanco, cefepime, azithromycin but developed a rash, unclear culprit -Given Benadryl x1 and will switch her to Levaquin, MRSA swab negative so vancomycin discontinued -08/04: Doing well on Levaquin #New onset rash -Primarily on her back -Given Benadryl -We will change antibiotics -No lesions in mouth and no respiratory compromise, discussed warning signs and symptoms with patient and when she should reach out if she has any concerns -08/04: Resolved, unclear the culprit #Small bilateral pleural effusions -Seen on repeat CT 07/31, likely due to fluid resuscitation, no respiratory compromise, will monitor -This was discussed with GI, is receiving some IV fluids but received Lasix as well -08/02: We will repeat chest x-ray -08/03: Repeat chest x-ray in the a.m. -08/04: Improved #GERD -IV PPI 40 twice daily #Hypertension -BP has steadily down trended as clinical status improved, holding scheduled BP meds, hydralazine as needed -08/04: Was on IV enalaprilat, had 1 episode where her blood pressure was on the low side and this had been held, will start lisinopril daily #Alcohol abuse -Was started on CIWA with as needed coverage -Folic acid, status post thiamine -08/02: Ativan DC'd as not having requirements and does not appear to be withdrawing #Tobacco abuse -Recommend cessation, nicotine patch ordered #DVT ppx: Full dose Lovenox Monika Crouch MD Time spent in the patient's overall evaluation,decision-making process, review of diagnostic data, adjustment of management, discussion with other providers, nursing nursing and ancillary staff involved in patient's care documentation, 40minutes Charges/Coding Visit Charges Inpatient E&M: 61653 Subs Hosp L3 08/04/22 1830 <Electronically signed by Monika Crouch MD> Cosigner Signature (if applicable): CC: ~ Signed [facility] Work Phone: 1(870) 661-315803-02-2023 Progress note Author Chandler Friend [facility] August 04, 2022 5:20pm Note Date/Time August 04, 2022 5:20 pm [facility] Medical Records Department [address] [place] [address] Progress Note 08/04/22 1718 MR#: [id number] Acct: [id number] Name: MELVA KERNS OCTOBER Rep #:[id number] : 1980 42 From: Chandler Salamanca DO PCP: Care Physician,No Primary Status :ADM IN Location: [place] [address] Subjective Subjective The patient is actually doing a lot better. Her abdominal pain is better controlled. Objective Data Objective Data Vital Signs: Vital Signs Temp Pulse Resp BP Pulse Ox O2 Del Method O2 Flow Rate 98.6 F 82 16 150/99 H 100 Room Air 2 08/04/22 17:09 08/04/22 17:09 08/04/22 17:09 08/04/22 17:08/04/22 17:08/04/22 17:09 07/28/22 18:05 Oxygen Flow Rate (L/min) 2 Oxygen Delivery Method Room Air Weight: 136 lb 0.015 oz Body Mass Index (BMI) 23.3 Intake & Output: Intake and Output for Last 24 Hours 08/02/22 08/03/22 08/04/22 23:59 23:59 23:59 Intake Total 4940 / 4940 4347.25 / 4347.25 1715.01 / 1715.01 Balance 4940 / 4940 4347.25 / 4347.25 1715.01 / 1715.01 Lab / Micro Data Result Diagrams: 08/04/22 05:45 08/04/22 05:45 Labs: Laboratory Results - last 24 hr 08/03/22 19:25: Hgb 12.7 08/03/22 19:25: APTT 63.7 H, D-Dimer Quant (PE/DVT) 1.51 H* 08/04/22 05:45: WBC 5.6, RBC 3.33 L, Hgb 11.1 L, Hct 32.5 L, MCV 97.6, MCH 33.3 H, MCHC 34.2, RDW Std Deviation 48.0 H, RDW Coeff of Frankie 13.4, Plt Count 214, MPV 10.4, Immature Gran % (Auto) 0.400, Neut % (Auto) 54.4, Lymph % (Auto) 25.3,Vigo % (Auto) 14.5 H, Eos % (Auto) 4.5, Baso % (Auto) 0.9, Absolute Neuts (auto)3.0, Absolute Lymphs (auto) 1.41, Nucleated RBC % 0, ESR 28 08/04/22 05:45: Sodium 138, Potassium 3.7, Chloride 103, Carbon Dioxide 27.0, Anion Gap 8, BUN 6 L, Creatinine 0.66, Estim Creat Clear Calc 94.91, Est GFR (MDRD) Af Amer 127, Est GFR (MDRD) Non-Af 105, BUN/Creatinine Ratio 9.2 L, Glucose 125 H, Calcium 9.2, Total Bilirubin 0.30, AST 49 H, ALT 46, Alkaline Phosphatase 94, C-React Prot Ext Range 15.50 H, Total Protein 6.1 L, Albumin 2.7L, Globulin 3.4, Albumin/Globulin Ratio 0.8 L, Prolactin 84.7 08/04/22 05:45: Lactic Acid 0.8 08/04/22 05:45: APTT 73.9 H 08/04/22 16:08: Urine Test Negative Micro: Microbiology 08/03/22 13:56 Mucosa - Nose Respiratory Panel (PCR) - Final 08/03/22 09:00 Interface Orders Legionella Antigen - Final 08/03/22 09:00 Interface Orders Streptococcus pneumoniae Antigen (M - Final 08/03/22 08:35 Nasal Secretion SARS-CoV-2 Antigen (Rapid) - Final 08/03/22 07:52 Mucosa - Nasopharyngeal Influenza Types A,B Direct FA (TERRELL) - Final 07/30/22 11:26 Interface Orders Group A Streptococcus Rapid Screen - Final 07/30/22 08:55 Nasal Secretion SARS-CoV-2 Antigen (Rapid) - Final Radiography Diagnostic Testing: Radiology Impression Chest X-Ray 08/04/22 05:55 IMPRESSION: Normal x-ray examination of the chest. Electronically Signed: Christos Krause MD at 9:47 EST , Physical Exam Const alert, oriented x3 and no apparent distress HEENT normocephalic Eyes PERRL, EOMs intact bilaterally and conjunctivae normal Neck no lymphadenopathy Lymph Lymphatic: no lymphadenopathy noted Resp normal respiratory effort and clear to auscultation bilaterally Cardio regular rate, regular rhythm, S1 normal heart sound, S2 normal heart sound and no murmurs GI GI Narrative: + diffuse tenderness Extremity normal to inspection and no clubbing, cyanosis or edema Skin no rashes or lesions noted Neuro CN's II-XII intact bilaterally Psych mental status grossly normal Assessment & Plan Assessment/Plan (1) Leukocytosis: (2) Transaminitis: PLAN: Transaminitis possibly secondary to alcoholic hepatitis although I suspectthat there is some elements of chronic liver disease due to the fact that the ALT is greater than AST. That is not the classic alcoholic hepatitis pattern. There is no sign of chronic hepatitis from current work-up. She did have anti-[employer] antibody that is positive but that is associated mixed connective tissue disease and not usually associated with acute transaminitis secondary to acute hepatitis likely from ischemic disease versus acute alcoholic hepatitis. (3) Pancreatitis: PLAN: Acute alcoholic pancreatitis complicated by thrombosis of the mesenteric vessels. Recommend IV fluids at 150 cc an hour. I am not sure if she is havingchest pain secondary to fluid administration. I will give her Lasix due to having effusions from likely IV fluid administration and acute pancreatitis. Wemay have to switch the IV fluids to a colloid instead of a crystalloid. Her CT scan abdomen pelvis does show likely pancreatic necrosis in the tail of the pancreas. There is no sign of hemorrhagic pancreatitis. I will repeat her ESR,CRP and lactic acid. 08/02: Work-up for an autoimmune cause such as IgG4 related type I autoimmune pancreatitis is negative. I suspect all this is from alcohol. However she doeshave a positive COLTON cardiolipin antibody. Pancreatitis can make her hypercoagulable as in abnormal anticardiolipin antibody. Await oncology recommendations 08/03: The repeat CT scan shows similar findings and regarding her pancreatitis with some possible ischemic changes in the tail of the pancreas. Working diagnosis is still alcohol induced pancreatitis. Continue IV fluids. Repeat ESR, CRP and lactic acid. 08/04: She will need a repeat CT scan in approximately 14 days. At that time we can repeat ESR, CRP and lactic acid. If she can not drink any alcohol she will have a good chance in order to recover fully. 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 There is arisk of transformation to hemorrhagic pancreatitis. I discussed this with the patient in detail and showed her the pictures of the large thrombosis involving the portal vein and other splenic vasculature. Repeat CT scan of the abdomen pelvis did not show any occlusive thrombosis of the portal vein which is really good. We would likely need hematology recommendations regarding long-term treatment of superior mesenteric and portal vein thrombosis. There was no sign of varices that were seen on repeat imaging in the stomach. 08/03: Oncology is leaning towards stopping anticoagulation due to patient having incomplete thrombosis. We will await recommendations. 08/04: Oncology is okay with the patient going on heparin subcutaneous injections for the 2 thrombosis that were seen. (5) Abnormal magnetic resonance cholangiopancreatography (MRCP): PLAN: Findings from MRCP are as follows : common duct 0.68 cm which is mildly dilated.? This could be age-related. Other considerations would include distal common duct stricture, impacted occult a recently passed calculus.? Additional considerations would include a cold mass regional to the distal common duct. Since she has active pancreatitis at this time I do not want to make that worse. Once she is cell settle down we can do an ERCP at a later time. (6) Thrombosis: PLAN: CT imaging did show left gonadal vein thrombosis which is likely secondaryto hypercoagulable state from pancreatitis. She continues on anticoagulation. Recommend hematology consultation. Charges/Coding Visit Charges Inpatient E&M: 59152 Subs Hosp L3 08/04/22 1720 <Electronically signed by Chandler Salamanca DO> Chandler Friend DO Cosigner Signature (if applicable): CC: ~ Signed [facility] Work Phone: [phone]) 334-657303-01-[address] Crouch [facility] August 03, 2022 6:11pm Note Date/Time August 03, 2022 8:48 am [facility] Medical Records Department [address] [place] [address] Progress Note - Hospitalist 08/03/22 0848 MR#: [id number] Acct: [id number] Name: MELVA KERNS Rep #:[id number] : 1980 42 From: Monika Crouch MD PCP: Care Physician,No Primary Status :ADM IN Location: [place] [address] Reason for Visit Reason for Visit: Diagnoses Elevated white blood cell count, unspecified (07/28/22) Hypomagnesemia (07/28/22) Hypokalemia (07/28/22) Portal vein thrombosis (07/28/22) Acute embolism and thrombosis of unspecified vein (07/28/22) Pleural effusion, not elsewhere classified (07/28/22) Acute infarction of intestine, part and extent unspecified (07/28/22) Acute pancreatitis without necrosis or infection, unspecified (07/28/22) Nausea with vomiting, unspecified (07/28/22) Elevation of levels of liver transaminase levels (07/28/22) Abnormal findings on diagnostic imaging of other parts of digestive tract (07/28/22) Subjective Subjective Pain still waxes and wanes, has now had a bowel movement, advancing diet and is tolerating this. Did have increased congestion and cough with some left-sided shoulder pain and a CT scan with an infiltrate was started on antibiotics, did develop red slightly raised rash primarily on her back and left AC fossa that was only minimally itchy, no respiratory compromise. Was started on several antibiotics due to new diagnosis of HAP and she is unsure of any specific reaction. Objective Data Objective Data Vital Signs: Vital Signs Temp Pulse Resp BP Pulse Ox O2 Del Method O2 Flow Rate 98.2 F 81 16 134/83 H 98 Room Air 2 08/03/22 08:08 08/03/22 08:08 08/03/22 08:08 08/03/22 08:08 08/03/22 08:08 08/03/22 08:23 07/28/22 18:05 Oxygen Flow Rate (L/min) 2 Oxygen Delivery Method Room Air Weight: 61.689 kg Body Mass Index (BMI) 23.3 Intake & Output: Intake and Output for Last 24 Hours 08/01/22 08/02/22 08/03/22 23:59 23:59 23:59 Intake Total 6462.33 / 6462.33 4940 / 4940 1178.97 / 1178.97 Balance 6462.33 / 6462.33 4940 / 4940 1178.97 / 1178.97 Lab / Micro Data Result Diagrams: 08/03/22 06:05 08/03/22 06:05 Labs: Laboratory Results - last 24 hr 08/02/22 09:36: APTT 70.7 H 08/02/22 18:09: Hgb 12.6 08/03/22 06:05: WBC 6.3, RBC 3.39 L, Hgb 10.9 L, Hct 32.8 L, MCV 96.8, MCH 32.2 H, MCHC 33.2, RDW Std Deviation 48.1 H, RDW Coeff of Frankie 13.4, Plt Count 200, MPV 10.3, Immature Gran % (Auto) 0.300, Neut % (Auto) 57.5, Lymph % (Auto) 24.5,Vigo % (Auto) 13.6 H, Eos % (Auto) 3.5, Baso % (Auto) 0.6, Absolute Neuts (auto)3.6, Absolute Lymphs (auto) 1.53, Nucleated RBC % 0 08/03/22 06:05: Sodium 138, Potassium 3.1 L, Chloride 104, Carbon Dioxide 26.0, Anion Gap 8, BUN 4 L, Creatinine 0.48 L, Estim Creat Clear Calc 130.50, Est GFR (MDRD) Af Amer 182, Est GFR (MDRD) Non-Af 150, BUN/Creatinine Ratio 8.4 L, Glucose 107 H, Calcium 8.9, Magnesium 1.6, Total Bilirubin 0.50, AST 46 H, ALT 40, Alkaline Phosphatase 101, Total Protein 6.0 L, Albumin 2.7 L, Globulin 3.3, Albumin/Globulin Ratio 0.8 L 08/03/22 06:05: PT 13.9, INR 1.1, APTT 91.5 H* 08/03/22 06:05: Ammonia < 10.0 L Micro: Microbiology 08/03/22 07:52 Mucosa - Nasopharyngeal Influenza Types A,B Direct FA (TERRELL) - Final 07/30/22 11:26 Interface Orders Group A Streptococcus Rapid Screen - Final 07/30/22 08:55 Nasal Secretion SARS-CoV-2 Antigen (Rapid) - Final Radiography Diagnostic Testing: Radiology Impression Chest X-Ray 08/02/22 08:35 IMPRESSION: Normal x-ray examination of the chest. Electronically Signed: Christos Krause MD at 9:42 EST , Abdomen CTA 08/02/22 17:06 IMPRESSION: Stable portal vein thrombosis. Possible thrombosis of the left gonadal vein. Acute pancreatitis with necrosis or pseudocyst at the pancreatic tail. Dilated common bile duct. Left renal cyst. Electronically Signed: Renan Miller MD at 18:55 EST , Physical Exam Narrative General: Alert, oriented, no apparent distress HEENT: Atraumatic, normocephalic Eyes: Anicteric, normal conjunctiva, extraocular movements grossly intact Neck: Supple Respiratory: Somewhat coarse in left lower lung base, normal respiratory effort Cardiovascular: Regular rate and rhythm GI: Soft, tenderness seems to be improving, nondistended Extremities: No edema Musculoskeletal: Moving all extremities Neuro: No overt focal neurological deficits Skin: Red rash that is patchy on her back with several spots minimally raised without significant itching, no erythema or lesions in her mouth or on her face and no respiratory compromise Psych: Cooperative Assessment & Plan Assessment/Plan (1) Pancreatitis: (2) Transaminitis: (3) Superior mesenteric vein thrombosis: (4) Hypokalemia: (5) Leukocytosis: (6) Nausea & vomiting: (7) Hypomagnesemia: (8) Pleural effusion: PLAN: Plan For 2-year-old female with a history of alcohol abuse, tobacco use, pancreatitis[facility] with abdominal pain/nausea/vomiting. It felt similar to previous episodes of pancreatitis and previous episodes had been presumed to be due to her alcohol intake. She was found to have heart rate of 106, leukocytosis mild at 11.9 with mild left shift. Potassium of 2.8 with normal renal function and AST 51, ALT 67 alk phos 131 with a lipase of 9420. She did have CT abdomen pelvis in the ED which demonstrated findings consistent with acute pancreatitis as well as a focal nonocclusive thrombus at the junction of the superior mesenteric vein and portalvein, varices in the splenic hilum and hepatomegaly with fatty infiltration of the liver. She was given aggressive IV fluids, pain medications, antiemetics and admitted. #Acute pancreatitis -Aggressive hydration, antiemetics, pain medication -GI consult -MRCP demonstrated mildly dilated common duct at 0.68 -Repeat CT done 07/30 showed low-attenuation foci in pancreatic tail and focal necrosis cannot be excluded -Clinically improving, clear liquid diet started and remains on fluids -Taper pain medication as able -ERCP once stable -08/02: Continues to report abdominal pain in the epigastric to left however seems to have less tenderness on exam, will begin transitioning pain medication to oral in preparation for discharge hopefully in the not distant future, remains on fluids, discussed with GI and will advance diet. -08/03: Continue to wean pain medications, tolerating transitional diet, remains on fluids. We will get repeat ESR, CRP, lactic acid per GI recommendations #Portal vein thrombosis with possible left gonadal vein thrombosis -Hypercoag panel ordered -Heparin drip started, will need transition to oral agent after ERCP completed -This had been discussed with vascular and GI with previous provider with the determination of no need for surgical intervention -Repeat CTA of abdomen pelvis showed stable nonocclusive portal vein thrombus with filling defect in the left gonadal vein concerning for thrombus -08/02: Per GI recommendations we will obtain hematology consult, presently remains on heparin drip, hemoglobin is remained stable -08/03: Repeat imaging obtained, discussed with Dr. Urena post imaging and given entire clinical picture and scan there was advised that we could consider continuing anticoagulation and transitioning to Lovenox. He recommended gettinga D-dimer and having her follow-up with him in the outpatient setting to determine duration of therapy #Hospital-acquired pneumonia -Increased cough and congestion with infiltrate observed on CT -Was started on Vanco, cefepime, azithromycin but developed a rash, unclear culprit -Given Benadryl x1 and will switch her to Levaquin, MRSA swab negative so vancomycin discontinued #New onset rash -Primarily on her back -Given Benadryl -We will change antibiotics -No lesions in mouth and no respiratory compromise, discussed warning signs and symptoms with patient and when she should reach out if she has any concerns #Small bilateral pleural effusions -Seen on repeat CT 07/31, likely due to fluid resuscitation, no respiratory compromise, will monitor -This was discussed with GI, is receiving some IV fluids but received Lasix as well -08/02: We will repeat chest x-ray -08/03: Repeat chest x-ray in the a.m. #GERD -IV PPI 40 twice daily #Hypertension -BP has steadily down trended as clinical status improved, holding scheduled BP meds, hydralazine as needed #Alcohol abuse -Was started on CIWA with as needed coverage -Folic acid, status post thiamine -08/02: Ativan DC'd as not having requirements and does not appear to be withdrawing #Tobacco abuse -Recommend cessation, nicotine patch ordered #DVT ppx: Remains on heparin gtt, will transition to Lovenox in the a.m., instructions given to stop heparin drip 2 hours prior to Lovenox Monika Crouch MD Time spent in the patient's overall evaluation,decision-making process, review of diagnostic data, adjustment of management, discussion with other providers, nursing nursing and ancillary staff involved in patient's care documentation, 40minutes Charges/Coding Visit Charges Inpatient E&M: 55653 Subs Hosp L3 08/03/22 1811 <Electronically signed by Monika Crouch MD> Cosigner Signature (if applicable): CC: ~ Signed [facility] Work Phone: [phone]) 516-661103-01-2023 Progress note Author Chandler Salamnaca [facility] August 03, 2022 4:38pm Note Date/Time August 03, 2022 4:38 pm [facility] Medical Records Department [address] [place] [address] Progress Note 08/03/22 1635 MR#: [id number] Acct: [id number] Name: MELVA KERNS Rep #:[id number] : 1980 42 From: Chandler Salamanca DO PCP: Care Physician,No Primary Status :ADM [place] [facility] [place] Subjective Subjective Patient states that her abdominal pain is about the same. She denied any nausea. She rates her pain at a 5 out of 10. She has had no signs of melena, hematochezia, bloating or worsening back pain. Objective Data Objective Data Vital Signs: Vital Signs Temp Pulse Resp BP Pulse Ox O2 Del Method O2 Flow Rate 98.2 F 79 16 132/86 H 98 Room Air 2 08/03/22 14:47 08/03/22 14:47 08/03/22 14:47 08/03/22 14:47 08/03/22 14:47 08/03/22 15:00 07/28/22 18:05 Oxygen Flow Rate (L/min) 2 Oxygen Delivery Method Room Air Weight: 136 lb 0.015 oz Body Mass Index (BMI) 23.3 Intake & Output: Intake and Output for Last 24 Hours 08/01/22 08/02/22 08/03/22 23:59 23:59 23:59 Intake Total 6462.33 / 6462.33 4940 / 4940 2802.17 / 2802.17 Balance 6462.33 / 6462.33 4940 / 4940 2802.17 / 2802.17 Lab / Micro Data Result Diagrams: 08/03/22 06:05 08/03/22 06:05 Labs: Laboratory Results - last 24 hr 08/02/22 18:09: Hgb 12.6 08/03/22 06:05: WBC 6.3, RBC 3.39 L, Hgb 10.9 L, Hct 32.8 L, MCV 96.8, MCH 32.2 H, MCHC 33.2, RDW Std Deviation 48.1 H, RDW Coeff of Frankie 13.4, Plt Count 200, MPV 10.3, Immature Gran % (Auto) 0.300, Neut % (Auto) 57.5, Lymph % (Auto) 24.5,Vigo % (Auto) 13.6 H, Eos % (Auto) 3.5, Baso % (Auto) 0.6, Absolute Neuts (auto)3.6, Absolute Lymphs (auto) 1.53, Nucleated RBC % 0 08/03/22 06:05: Sodium 138, Potassium 3.1 L, Chloride 104, Carbon Dioxide 26.0, Anion Gap 8, BUN 4 L, Creatinine 0.48 L, Estim Creat Clear Calc 130.50, Est GFR (MDRD) Af Amer 182, Est GFR (MDRD) Non-Af 150, BUN/Creatinine Ratio 8.4 L, Glucose 107 H, Calcium 8.9, Magnesium 1.6, Total Bilirubin 0.50, AST 46 H, ALT 40, Alkaline Phosphatase 101, Total Protein 6.0 L, Albumin 2.7 L, Globulin 3.3, Albumin/Globulin Ratio 0.8 L 08/03/22 06:05: PT 13.9, INR 1.1, APTT 91.5 H* 08/03/22 06:05: Ammonia < 10.0 L 08/03/22 13:23: APTT 66.7 H Micro: Microbiology 08/03/22 09:00 Interface Orders Legionella Antigen - Final 08/03/22 09:00 Interface Orders Streptococcus pneumoniae Antigen (M - Final 08/03/22 08:35 Nasal Secretion SARS-CoV-2 Antigen (Rapid) - Final 08/03/22 07:52 Mucosa - Nasopharyngeal Influenza Types A,B Direct FA (TERRELL) - Final 07/30/22 11:26 Interface Orders Group A Streptococcus Rapid Screen - Final 07/30/22 08:55 Nasal Secretion SARS-CoV-2 Antigen (Rapid) - Final Radiography Diagnostic Testing: Radiology Impression Abdomen CTA 08/02/22 17:06 IMPRESSION: Stable portal vein thrombosis. Possible thrombosis of the left gonadal vein. Acute pancreatitis with necrosis or pseudocyst at the pancreatic tail. Dilated common bile duct. Left renal cyst. Electronically Signed: Renan Miller MD at 18:55 EST , Physical Exam Const alert, oriented x3 and no apparent distress HEENT normocephalic Eyes PERRL, EOMs intact bilaterally and conjunctivae normal Neck no lymphadenopathy Lymph Lymphatic: no lymphadenopathy noted Resp normal respiratory effort and clear to auscultation bilaterally Cardio regular rate, regular rhythm, S1 normal heart sound, S2 normal heart sound and no murmurs GI GI Narrative: + diffuse tenderness Extremity normal to inspection and no clubbing, cyanosis or edema Skin no rashes or lesions noted Neuro CN's II-XII intact bilaterally Psych mental status grossly normal Assessment & Plan Assessment/Plan (1) Leukocytosis: (2) Transaminitis: PLAN: Transaminitis possibly secondary to alcoholic hepatitis although I suspectthat there is some elements of chronic liver disease due to the fact that the ALT is greater than AST. That is not the classic alcoholic hepatitis pattern. There is no sign of chronic hepatitis from current work-up. She did have anti-DIRECTOR OF [employer] RELATIONS antibody that is positive but that is associated mixed connective tissue disease and not usually associated with acute transaminitis secondary to acute hepatitis likely from ischemic disease versus acute alcoholic hepatitis. (3) Pancreatitis: PLAN: Acute alcoholic pancreatitis complicated by thrombosis of the mesenteric vessels. Recommend IV fluids at 150 cc an hour. I am not sure if she is havingchest pain secondary to fluid administration. I will give her Lasix due to having effusions from likely IV fluid administration and acute pancreatitis. Wemay have to switch the IV fluids to a colloid instead of a crystalloid. Her CT scan abdomen pelvis does show likely pancreatic necrosis in the tail of the pancreas. There is no sign of hemorrhagic pancreatitis. I will repeat her ESR,CRP and lactic acid. 08/02: Work-up for an autoimmune cause such as IgG4 related type I autoimmune pancreatitis is negative. I suspect all this is from alcohol. However she doeshave a positive COLTON cardiolipin antibody. Pancreatitis can make her hypercoagulable as in abnormal anticardiolipin antibody. Await oncology recommendations 08/03: The repeat CT scan shows similar findings and regarding her pancreatitis with some possible ischemic changes in the tail of the pancreas. Working diagnosis is still alcohol induced pancreatitis. Continue IV fluids. Repeat ESR, CRP and lactic acid. 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 There is arisk of transformation to hemorrhagic pancreatitis. I discussed this with the patient in detail and showed her the pictures of the large thrombosis involving the portal vein and other splenic vasculature. Repeat CT scan of the abdomen pelvis did not show any occlusive thrombosis of the portal vein which is really good. We would likely need hematology recommendations regarding long-term treatment of superior mesenteric and portal vein thrombosis. There was no sign of varices that were seen on repeat imaging in the stomach. 08/03: Oncology is leaning towards stopping anticoagulation due to patient having incomplete thrombosis. We will await recommendations. (5) Abnormal magnetic resonance cholangiopancreatography (MRCP): PLAN: Findings from MRCP are as follows : common duct 0.68 cm which is mildly dilated.? This could be age-related. Other considerations would include distal common duct stricture, impacted occult a recently passed calculus.? Additional considerations would include a cold mass regional to the distal common duct. Since she has active pancreatitis at this time I do not want to make that worse. Once she is cell settle down we can do an ERCP at a later time. (6) Thrombosis: PLAN: CT imaging did show left gonadal vein thrombosis which is likely secondaryto hypercoagulable state from pancreatitis. She continues on anticoagulation. Recommend hematology consultation. Charges/Coding Visit Charges Inpatient E&M: 22482 Subs Hosp L3 08/03/22 1638 <Electronically signed by Chandler Salamanca DO> Chandler Salamanca DO Cosrukhsana Signature (if applicable): CC: ~ Signed [facility] Work Phone: 1(157) 667-335702-28-[address] Urena [facility] August 02, 2022 7:23pm Note Date/Time August 02, 2022 6:52pm [facility] [address] [place] [address] Consultation - Oncology IP 08/02/22 1846 MR#: [id number] Acct: [id number] Name: MELVA KERNS OCTOBER Rep #:[id number] : 1980 42 From: Lonnie Urena MD PCP: Care Physician,No Primary Status :ADM IN Location: MS3 [id number] Assessment & Plan Assessment/Plan (1) Pancreatitis: Status: Acute Code(s): K85.90 - Acute pancreatitis without necrosis or infection, unspecified Plan: Continue supportive management. (2) Portal vein thrombosis: Status: Acute Code(s): I81 - Portal vein thrombosis Plan: Partial occlusion of the Portal vein associated with Pancreatitis. Pancreatitis is hypercoagulable state. Because of high risk for hemorrhaging, need to repeatimaging before making to decision to anticoagulate with any other drug. HPI Consult Data Date of Service:: 08/02/22 PCP / Referring Provider: No Primary Care Phys Attending: Dr. Monika Crouch MD Chief Complaint Chief Complaint: Asked to see pt with Portal vein thrombus. History of Present Illness History of Present Illness: 42-year-old old woman with history of pancreatitis, was admitted on 07/28/2022 with another episode of pancreatitis. CT scan of the abdomen and pelvis on 07/28/2022 showed a filling defect in the portal vein and patient was started on anticoagulation with heparin. Asked to see the patient for chronic anticoagulation. She still has abdominal pain, she has started eating liquid diet. Advanced Directives Power of Composition Board Press Operator: No Living Will: No [facility] Medical History Alcohol abuse Pancreatitis Smoker Home Medications amlodipine 10 mg tablet 10 mg PO DAILY #30 tabs 02/22/22 [Rx Last Taken 07/28/22 03:00] omeprazole 40 mg capsule,delayed release 40 mg PO DAILY #30 caps 02/22/22 [Rx Last Taken 07/28/22 03:00] ondansetron 4 mg disintegrating tablet 4 mg PO Q8H PRN nausea and vomiting #30 tabs 02/22/22 [Rx Last Taken 07/28/22 03:00] sennosides 8.6 mg-docusate sodium 50 mg tablet (Stool Softener-Stimulant Laxative) 2 tab PO BID PRN constipation #60 tabs 02/22/22 [Rx Last Taken Unknown] ibuprofen 200 mg tablet (Motrin IB) 800 mg PO Q4H PRN Pain 07/28/22 [History Last Taken 07/28/22 06:30] sucralfate 100 mg/mL oral suspension (Carafate) 10 ml PO BID PRN GERD 07/28/22 [History Last Taken 07/24/22] Allergy/AdvReac Type Severity Reaction Status Date / Time No Known Allergies Allergy Verified 07/28/22 13:42 Family History no significant family his Surgical History H/O tubal ligation Social History (Updated 07/28/22 @ 10:[address] Jovanna Leonard DO) household members: significant other and children housing: house Smoking Status: Current every day smoker tobacco type: cigarettes alcohol intake: current details: Drinks approximately 4 shots of vodka a day and cranberry juice substance use type: does not use ROS Constitutional Constitutional: Reports fatigue; Denies poor appetite ENT HEENT: Denies dysphagia Cardiovascular Cardiovascular: Denies chest pain Respiratory/Chest Respiratory/Chest: Denies chest tightness, cough or dyspnea Gastrointestinal Gastrointestinal: Reports abdominal pain and anorexia; Denies diarrhea Genitourinary Genitourinary: Denies urinary hesitancy or urinary incontinence Musculoskeletal Musculoskeletal: Denies abnormal gait or back pain Integumentary Integumentary: Denies unusual bruising Neurologic Neurologic: Reports abnormal speech Psychiatric Psychiatric: Denies anxiety or depression Endocrine Endocrinology: Denies cold intolerance or flushing Hematologic/Lymphatic Hematologic/Lymphatic: Denies easy bleeding, easy bruising or lymphadenopathy Physical Exam Const alert, oriented x3 and no apparent distress HEENT normocephalic Eyes PERRL, EOMs intact bilaterally and conjunctivae normal Neck no lymphadenopathy Lymph Lymphatic: no lymphadenopathy noted Resp normal respiratory effort and clear to auscultation bilaterally Cardio regular rate, regular rhythm, S1 normal heart sound, S2 normal heart sound and no murmurs GI GI Narrative: + diffuse tenderness Extremity normal to inspection and no clubbing, cyanosis or edema Skin no rashes or lesions noted Neuro CN's II-XII intact bilaterally Psych mental status grossly normal Vital Signs Temperature 97.8 F 08/02/22 12:03 Temperature Source Oral 08/02/22 12:03 Pulse Rate 79 08/02/22 12:03 Pulse Strength Normal (2+) 08/01/22 09:23 Respiratory Rate 16 08/02/22 12:03 Respiratory Effort Non-Labored 08/01/22 21:00 Respiratory Depth Normal 08/01/22 21:00 Respiratory Pattern Normal 08/01/22 21:00 Blood Pressure 149/103 H 08/02/22 12:03 Blood Pressure Mean 118 08/02/22 12:03 Blood Pressure Source Monitor 08/02/22 03:00 Blood Pressure Position Sitting 08/02/22 03:00 Blood Pressure Location Left Arm 08/02/22 03:00 Pulse Ox 98 08/02/22 12:03 Oxygen Delivery Method Room Air 08/02/22 12:03 Oxygen Flow Rate (L/min) 2 07/28/22 18:05 Laboratory Results - last 24 hr 07/28/22 11:15: Protein C Antigen 118, Functional Protein C 135, Prot C Funct Activity Not Reportable, Antithrombin III Ag 96, Func Antithrombin III 116, Factor V Leiden Mutat Comment, Beta-2-GPI IgG Ab <9, Beta-2-GPI IgA Ab <9, Beta-2-GPI IgM Ab <9, Anti-Cardiolipin IgG Ab < 9, Anti-Cardiolipin IgM Ab 15 H,Factor II DNA Analysis Comment 07/30/22 11:02: Total Protein (PEP) 5.5 L, Globulin 2.7, IgG Not Reportable, IgGTotal 608, IgG1 311, IgG2 143, IgG3 82, IgG4 34, IgA 318, IgM 113, Immunofixation Screen Comment, Albumin (CAROL) 2.8 L, Albumin/Globulin (CAROL) 1.1, Iaggh-3-Ttxchhxvw CAROL 0.4, Qdzpp-1-Ivueczgjc CAROL 0.6, Beta-Globulins (CAROL) 1.1, Gamma Globulins (CAROL) 0.5, CAROL M-Darron , CAROL Comments Comment, c-ANCA Antibody <1:20, Atypical p-ANCA <1:20, p- ANCA Antibody <1:20 08/01/22 19:37: APTT 51.1 H 08/02/22 03:38: WBC 6.9, RBC 3.67 L, Hgb 11.9 L, Hct 36.2 L, MCV 98.6, MCH 32.4 H, MCHC 32.9 D, RDW Std Deviation 47.7 H, RDW Coeff of Frankie 13.2, Plt Count 209,MPV 10.4, Immature Gran % (Auto) 0.600, Neut % (Auto) 55.8, Lymph % (Auto) 28.5,Vigo % (Auto) 12.4 H, Eos % (Auto) 2.0, Baso % (Auto) 0.7, Absolute Neuts (auto)3.9, Absolute Lymphs (auto) 1.98, Nucleated RBC % 0 08/02/22 03:38: Sodium 138, Potassium 3.1 L, Chloride 105, Carbon Dioxide 27.0, Anion Gap 6, BUN 2 L, Creatinine 0.48 L, Estim Creat Clear Calc 130.50, Est GFR (MDRD) Af Amer 179, Est GFR (MDRD) Non-Af 148, BUN/Creatinine Ratio 4.1 L, Glucose 157 H, Calcium 8.6, Total Bilirubin 0.50, AST 32, ALT 34, Alkaline Phosphatase 112, Total Protein 6.4, Albumin 2.8 L, Globulin 3.6, Albumin/Globulin Ratio 0.8 L 08/02/22 03:38: APTT 68.6 H 08/02/22 09:36: APTT 70.7 H 08/02/22 18:09: Hgb 12.6 Diagnostic Data MRCP 07/28/22 10:13 IMPRESSION: Common duct 0.68 cm which is mildly dilated. This could be age-related. Other considerations would include distal common duct stricture, impacted occult a recently passed calculus. Additional considerations would include a cold mass regional to the distal common duct. Increased signal lesion upper pole left kidney 0.92 cm transverse which could represent hemorrhagic cyst, solid mass cannot be excluded. Given patient''s history of pancreatitis and left renal lesion recommendation is for CT without and with contrast if clinically warranted. Normal variant phrygian cap of the gallbladder. Electronically Signed: Rafael Dhaliwal MD, KINJAL at 13:30 EST , Abdomen/Pelvis CT 07/30/22 10:48 IMPRESSION: Stable nonocclusive portal vein thrombus. Filling defect within the left gonadal vein concerning for a thrombus. Acute pancreatitis associated with a low-attenuation focus within the pancreatic tail, cannot exclude focal necrosis. Fatty infiltration of the liver. Stable dilated common bile duct. New bilateral pleural effusions associated with lower lobe consolidation. Electronically Signed: Elizabeth Multani MD at 15:46 EST , Chest X-Ray 08/02/22 08:35 IMPRESSION: Normal x-ray examination of the chest. Electronically Signed: Christos Krause MD at 9:42 EST , Charges/Coding Visit Charges Office Visits / Consults: 75441 IP Consult L4 08/02/221922 <Electronically signed by Lonnie Urena MD> CC: ROHAN Ballesteros; Dr. Jose Francisco Emmanuel MD; Dr. Lonnie Urena MD; Dr. Jovanna Leonard DO; Dr. Jose Antonio Krishnamurthy MD; Dr. Monika Crouch MD; Dr. René Read MD; Dr. Roberto Pagan MD; Dr. Florentin Blanc MD; Dr. Jeovany Gilbert DO; No Primary Care Physician; Chandler Salamanca DO ~ Signed [facility] Work Phone: [phone]) 716-194802-28-[address] Coruch [facility] August 02, 2022 5:13pm Note Date/Time August 02, 2022 7:34am [facility] Medical Records Department [address] [place] [address] Progress Note - Hospitalist 08/02/22 0731 MR#: [id number] Acct: [id number] Name: MELVA KERNS OCTOBER Rep #:[id number] : 1980 42 From: Monika Crouch MD PCP: Care Physician,No Primary Status :ADM IN Location: [address] Reason for Visit Reason for Visit: Diagnoses Elevated white blood cell count, unspecified (07/28/22) Hypomagnesemia (07/28/22) Hypokalemia (07/28/22) Acute embolism and thrombosis of unspecified vein (07/28/22) Pleural effusion, not elsewhere classified (07/28/22) Acute infarction of intestine, part and extent unspecified (07/28/22) Acute pancreatitis without necrosis or infection, unspecified (07/28/22) Nausea with vomiting, unspecified (07/28/22) Elevation of levels of liver transaminase levels (07/28/22) Abnormal findings on diagnostic imaging of other parts of digestive tract (07/28/22) Subjective Subjective Still reports abdominal pain waxing and waning, has been tolerating clear liquiddiet is interested in trying to eat more. Remains on fluids. Objective Data Objective Data Vital Signs: Vital Signs Temp Pulse Resp BP Pulse Ox O2 Del Method O2 Flow Rate 98.5 F 97 18 134/94 H 93 Room Air 2 08/02/22 03:00 08/02/22 03:00 08/02/22 03:00 08/02/22 03:00 08/02/22 03:00 08/02/22 03:00 07/28/22 18:05 Oxygen Flow Rate (L/min) 2 Oxygen Delivery Method Room Air Weight: 61.689 kg Body Mass Index (BMI) 23.3 Intake & Output: Intake and Output for Last 24 Hours 07/31/22 08/01/22 08/02/22 23:59 23:59 23:59 Intake Total 4365.43 / 4365.43 6462.33 / 6462.33 1075 / 1075 Balance 4365.43 / 4365.43 6462.33 / 6462.33 1075 / 1075 Lab / Micro Data Result Diagrams: 08/02/22 03:38 08/02/22 03:38 Labs: Laboratory Results - last 24 hr 07/28/22 11:15: Protein C Antigen 118, Functional Protein C 135, Prot C Funct Activity Not Reportable, Antithrombin III Ag 96, Func Antithrombin III 116, Factor V Leiden Mutat Comment, Beta-2-GPI IgG Ab <9, Beta-2-GPI IgA Ab <9, Beta-2-GPI IgM Ab <9, Anti-Cardiolipin IgG Ab < 9, Anti-Cardiolipin IgM Ab 15 H,Factor II DNA Analysis Comment 07/30/22 11:02: Total Protein (PEP) 5.5 L, Globulin 2.7, IgG Not Reportable, IgGTotal 608, IgG1 311, IgG2 143, IgG3 82, IgG4 34, IgA 318, IgM 113, Immunofixation Screen Comment, Albumin (CAROL) 2.8 L, Albumin/Globulin (CAROL) 1.1, Xpdar-8-Dzagfjcxp CAROL 0.4, Dzipr-7-Ywwybnmhk CAROL 0.6, Beta-Globulins (CAROL) 1.1, Gamma Globulins (CAROL) 0.5, CAROL M-Darron , CAROL Comments Comment, c-ANCA Antibody <1:20, Atypical p-ANCA <1:20, p- ANCA Antibody <1:20 07/30/22 11:02: LIZETTE-1 Antibody <0.2, SS-A/Ro IgG Antibody < 0.2, SS-B/La IgG Antibody < 0.2, Sm (Lee) Antibody <0.2, DIRECTOR OF LABOR RELATIONS Antibody 0.3, Scl-70 Scleroderma Ab <0.2, Double Strand DNA Ab 1, Centromere B Antibody <0.2 08/01/22 12:23: APTT 52.2 H 08/01/22 19:37: APTT 51.1 H 08/02/22 03:38: WBC 6.9, RBC 3.67 L, Hgb 11.9 L, Hct 36.2 L, MCV 98.6, MCH 32.4 H, MCHC 32.9 D, RDW Std Deviation 47.7 H, RDW Coeff of Frankie 13.2, Plt Count 209,MPV 10.4, Immature Gran % (Auto) 0.600, Neut % (Auto) 55.8, Lymph % (Auto) 28.5,Vigo % (Auto) 12.4 H, Eos % (Auto) 2.0, Baso % (Auto) 0.7, Absolute Neuts (auto)3.9, Absolute Lymphs (auto) 1.98, Nucleated RBC % 0 08/02/22 03:38: Sodium 138, Potassium 3.1 L, Chloride 105, Carbon Dioxide 27.0, Anion Gap 6, BUN 2 L, Creatinine 0.48 L, Estim Creat Clear Calc 130.50, Est GFR (MDRD) Af Amer 179, Est GFR (MDRD) Non-Af 148, BUN/Creatinine Ratio 4.1 L, Glucose 157 H, Calcium 8.6, Total Bilirubin 0.50, AST 32, ALT 34, Alkaline Phosphatase 112, Total Protein 6.4, Albumin 2.8 L, Globulin 3.6, Albumin/Globulin Ratio 0.8 L 08/02/22 03:38: APTT 68.6 H Micro: Microbiology 07/30/22 11:26 Interface Orders Group A Streptococcus Rapid Screen - Final 07/30/22 08:55 Nasal Secretion SARS-CoV-2 Antigen (Rapid) - Final Physical Exam Narrative General: Alert, oriented, appears somewhat upset HEENT: Atraumatic, normocephalic Eyes: Anicteric, normal conjunctiva, extraocular movements grossly intact Neck: Supple Respiratory: Slightly diminished at the bases, normal respiratory effort Cardiovascular: Regular rate and rhythm GI: Soft, nondistended, mildly diffusely tender more so epigastric radiating to left upper quadrant, no rebound, no guarding, no rigidity Extremities: No edema Musculoskeletal: Moving all extremities Neuro: No overt focal neurological deficits Skin: No rashes appreciated Psych: Cooperative Assessment & Plan Assessment/Plan (1) Pancreatitis: (2) Transaminitis: (3) Superior mesenteric vein thrombosis: (4) Hypokalemia: (5) Leukocytosis: (6) Nausea & vomiting: (7) Hypomagnesemia: (8) Pleural effusion: PLAN: Plan For 2-year-old female with a history of alcohol abuse, tobacco use, [facility]itis[facility] abdominal pain/nausea/vomiting. It felt similar to previous episodes of pancreatitis and previous episodes had been presumed to be due to her alcohol intake. She was found to have heart rate of 106, leukocytosis mild at 11.9 with mild left shift. Potassium of 2.8 with normal renal function and AST 51, ALT 67 alk phos 131 with a lipase of 9420. She did have CT abdomen pelvis in the ED which demonstrated findings consistent with acute pancreatitis as well as a focal nonocclusive thrombus at the junction of the superior mesenteric vein and portalvein, varices in the splenic hilum and hepatomegaly with fatty infiltration of the liver. She was given aggressive IV fluids, pain medications, antiemetics and admitted. #Acute pancreatitis -Aggressive hydration, antiemetics, pain medication -GI consult -MRCP demonstrated mildly dilated common duct at 0.68 -Repeat CT done 2/25 showed low-attenuation foci in pancreatic tail and focal necrosis cannot be excluded -Clinically improving, clear liquid diet started and remains on fluids -Taper pain medication as able -ERCP once stable -08/02: Continues to report abdominal pain in the epigastric to left however seems to have less tenderness on exam, will begin transitioning pain medication to oral in preparation for discharge hopefully in the not distant future, remains on fluids, discussed with GI and will advance diet. #Portal and superior mesenteric vein thrombosis -Hypercoag panel ordered -Heparin drip started, will need transition to oral agent after ERCP completed -This had been discussed with vascular and GI with previous provider with the determination of no need for surgical intervention -Repeat CTA of abdomen pelvis showed stable nonocclusive portal vein thrombus with filling defect in the left gonadal vein concerning for thrombus -08/02: Per GI recommendations we will obtain hematology consult, presently remains on heparin drip, hemoglobin is remained stable #Small bilateral pleural effusions -Seen on repeat CT 07/31, likely due to fluid resuscitation, no respiratory compromise, will monitor -This was discussed with GI, is receiving some IV fluids but received Lasix as well -08/02: We will repeat chest x-ray #GERD -IV PPI 40 twice daily #Hypertension -Amlodipine held and enalaprilat continued -As needed hydralazine #Alcohol abuse -Was started on CIWA with as needed coverage -Folic acid, status post thiamine -08/02: Ativan DC'd as not having requirements and does not appear to be withdrawing #Tobacco abuse -Recommend cessation, nicotine patch ordered #DVT ppx: Remains on heparin gtt Monika Crouch MD Time spent in the patient's overall evaluation,decision-making process, review of diagnostic data, adjustment of management, discussion with other providers, nursing nursing and ancillary staff involved in patient's care documentation, 35minutes Charges/Coding Visit Charges Inpatient E&M: 69089 Subs Hosp L2 08/02/22 0743 <Electronically signed by Monika Crouch MD> Cosigner Signature (if applicable): CC: ~ Signed ADDENDUM by Dr. Monika Crouch MD on 08/02/22 at 1713 Addendum Spoke with GI and with hematology oncology today. Patient still on fluids, dietis advanced to full liquid. Still requiring high amounts of pain medication however attempting to wean off and transition to oral for eventual DC home. Spoke with heme-onc and further CT was recommended to verify no propagation of thrombus prior to decision on anticoagulation given risks of anticoagulation versus benefits depending on propagation. Will monitor H&H every 12. CT abdomen ordered, have ordered with and without given previous scan that saw renal cyst that recommended with without for further characterization. Additionally does seem to have decent sized stool burden on CT from previously which may contribute to her abdominal pain and is likely worsened by her use of narcotics,will schedule bowel regimen as this may help improve symptoms. Previous CT did show some effusions and possible consolidation but she does not have an elevatedwhite blood cell count, no fever, no cough or shortness of breath suggestive of active pneumonia. If redemonstrated or if any of the symptoms develop can consider further work-up and treatment. 08/02/221712<Electronically signed by Monika Crouch MD> Cosigner Signature (if applicable): cc: ~* Signed [facility] Work Phone: 1(587) 580-709602-28-2023 Progress note Author Chandler Salamanca [facility] August 02, 2022 4:39pm Note Date/Time August 02, 2022 4:39pm [facility] Medical Records Department [address] [place] [address] Progress Note 08/02/22 1637 MR#: [id number] Acct: [id number] Name: MELVA KERNS Rep #:[id number] : 1980 42 From: Chandler Salamanca DO PCP: Care Physician,No Primary Status :ADM IN Location: [address] Subjective Subjective Patient is still requiring a lot of pain medicines. She rates her pain at a 6-10 out of 10 Objective Data Objective Data Vital Signs: Vital Signs Temp Pulse Resp BP Pulse Ox O2 Del Method O2 Flow Rate 97.8 F 79 16 149/103 H 98 Room Air 2 08/02/22 12:03 08/02/22 12:03 08/02/22 12:03 08/02/22 12:03 08/02/22 12:03 08/02/22 12:03 07/28/22 18:05 Oxygen Flow Rate (L/min) 2 Oxygen Delivery Method Room Air Weight: 136 lb 0.015 oz Body Mass Index (BMI) 23.3 Intake & Output: Intake and Output for Last 24 Hours 07/31/22 08/01/22 08/02/22 23:59 23:59 23:59 Intake Total 4365.43 / 4365.43 6462.33 / 6462.33 2185 / 2185 Balance 4365.43 / 4365.43 6462.33 / 6462.33 2185 / 2185 Lab / Micro Data Result Diagrams: 08/02/22 03:38 08/02/22 03:38 Labs: Laboratory Results - last 24 hr 07/28/22 11:15: Protein C Antigen 118, Functional Protein C 135, Prot C Funct Activity Not Reportable, Antithrombin III Ag 96, Func Antithrombin III 116, Factor V Leiden Mutat Comment, Beta-2-GPI IgG Ab <9, Beta-2-GPI IgA Ab <9, Beta-2-GPI IgM Ab <9, Anti-Cardiolipin IgG Ab < 9, Anti-Cardiolipin IgM Ab 15 H,Factor II DNA Analysis Comment 07/30/22 11:02: Total Protein (PEP) 5.5 L, Globulin 2.7, IgG Not Reportable, IgGTotal 608, IgG1 311, IgG2 143, IgG3 82, IgG4 34, IgA 318, IgM 113, Immunofixation Screen Comment, Albumin (CAROL) 2.8 L, Albumin/Globulin (CAROL) 1.1, Fovuu-6-Irzpkqbgj CAROL 0.4, Xqvmu-9-Psulilcom CAROL 0.6, Beta-Globulins (CAROL) 1.1, Gamma Globulins (CAROL) 0.5, CAROL M-Darron , CAROL Comments Comment, c-ANCA Antibody <1:20, Atypical p-ANCA <1:20, p- ANCA Antibody <1:20 08/01/22 19:37: APTT 51.1 H 08/02/22 03:38: WBC 6.9, RBC 3.67 L, Hgb 11.9 L, Hct 36.2 L, MCV 98.6, MCH 32.4 H, MCHC 32.9 D, RDW Std Deviation 47.7 H, RDW Coeff of Frankie 13.2, Plt Count 209,MPV 10.4, Immature Gran % (Auto) 0.600, Neut % (Auto) 55.8, Lymph % (Auto) 28.5,Vigo % (Auto) 12.4 H, Eos % (Auto) 2.0, Baso % (Auto) 0.7, Absolute Neuts (auto)3.9, Absolute Lymphs (auto) 1.98, Nucleated RBC % 0 08/02/22 03:38: Sodium 138, Potassium 3.1 L, Chloride 105, Carbon Dioxide 27.0, Anion Gap 6, BUN 2 L, Creatinine 0.48 L, Estim Creat Clear Calc 130.50, Est GFR (MDRD) Af Amer 179, Est GFR (MDRD) Non-Af 148, BUN/Creatinine Ratio 4.1 L, Glucose 157 H, Calcium 8.6, Total Bilirubin 0.50, AST 32, ALT 34, Alkaline Phosphatase 112, Total Protein 6.4, Albumin 2.8 L, Globulin 3.6, Albumin/Globulin Ratio 0.8 L 08/02/22 03:38: APTT 68.6 H 08/02/22 09:36: APTT 70.7 H Micro: Microbiology 07/30/22 11:26 Interface Orders Group A Streptococcus Rapid Screen - Final 07/30/22 08:55 Nasal Secretion SARS-CoV-2 Antigen (Rapid) - Final Radiography Diagnostic Testing: Radiology Impression Chest X-Ray 08/02/22 08:35 IMPRESSION: Normal x-ray examination of the chest. Electronically Signed: Christos Krause MD at 9:42 EST , Physical Exam Narrative General: Alert, oriented, appears somewhat upset HEENT: Atraumatic, normocephalic Eyes: Anicteric, normal conjunctiva, extraocular movements grossly intact Neck: Supple Respiratory: Slightly diminished at the bases, normal respiratory effort Cardiovascular: Regular rate and rhythm GI: Soft, nondistended, mildly diffusely tender more so epigastric radiating to left upper quadrant, no rebound, no guarding, no rigidity Extremities: No edema Musculoskeletal: Moving all extremities Neuro: No overt focal neurological deficits Skin: No rashes appreciated Psych: Cooperative Assessment & Plan Assessment/Plan (1) Leukocytosis: (2) Transaminitis: PLAN: Transaminitis possibly secondary to alcoholic hepatitis although I suspectthat there is some elements of chronic liver disease due to the fact that the ALT is greater than AST. That is not the classic alcoholic hepatitis pattern. There is no sign of chronic hepatitis from current work-up. She did have anti-DIRECTOR OF LABOR RELATIONS antibody that is positive but that is associated mixed connective tissue disease and not usually associated with acute transaminitis secondary to acute hepatitis likely from ischemic disease versus acute alcoholic hepatitis. (3) Pancreatitis: PLAN: Acute alcoholic pancreatitis complicated by thrombosis of the mesenteric vessels. Recommend IV fluids at 150 cc an hour. I am not sure if she is havingchest pain secondary to fluid administration. I will give her Lasix due to having effusions from likely IV fluid administration and acute pancreatitis. Wemay have to switch the IV fluids to a colloid instead of a crystalloid. Her CT scan abdomen pelvis does show likely pancreatic necrosis in the tail of the pancreas. There is no sign of hemorrhagic pancreatitis. I will repeat her ESR,CRP and lactic acid. 08/02: Work-up for an autoimmune cause such as IgG4 related type I autoimmune pancreatitis is negative. I suspect all this is from alcohol. However she doeshave a positive COLTON cardiolipin antibody. Pancreatitis can make her hypercoagulable as in abnormal anticardiolipin antibody. Await oncology recommendations (4) Superior mesenteric vein thrombosis: PLAN: Superior mesenteric vein thrombosis , recommend to follow H&H. There is arisk of transformation to hemorrhagic pancreatitis. I discussed this with the patient in detail and showed her the pictures of the large thrombosis involving the portal vein and other splenic vasculature. Repeat CT scan of the abdomen pelvis did not show any occlusive thrombosis of the portal vein which is really good. We would likely need hematology recommendations regarding long-term treatment of superior mesenteric and portal vein thrombosis. There was no sign of varices that were seen on repeat imaging in the stomach. (5) Abnormal magnetic resonance cholangiopancreatography (MRCP): PLAN: Findings from MRCP are as follows : common duct 0.68 cm which is mildly dilated.? This could be age-related. Other considerations would include distal common duct stricture, impacted occult a recently passed calculus.? Additional considerations would include a cold mass regional to the distal common duct. Since she has active pancreatitis at this time I do not want to make that worse. Once she is cell settle down we can do an ERCP at a later time. (6) Thrombosis: PLAN: CT imaging did show left gonadal vein thrombosis which is likely secondaryto hypercoagulable state from pancreatitis. She continues on anticoagulation. Recommend hematology consultation. Charges/Coding Visit Charges Inpatient E&M: 96322 Subs Hosp L3 08/02/22 1639 <Electronically signed by Chandler Friend > Chandler Friend DO Cosigner Signature (if applicable): CC: ~ Signed [facility] Work Phone: [phone]) 604-849902-27-[address] Crouch [facility] August 01, 2022 7:29pm Note Date/Time August 01, 2022 8:37am [facility] Medical Records Department [address] [place] [id number] Progress Note - Hospitalist 08/01/22832 MR#: [id number] Acct: [id number] Name: MELVA KERNS Rep #:[id number] : 1980 42 From: Monika Crouch MD PCP: Care Physician,No Primary Status :ADM IN Location: [place] [address] Reason for Visit Reason for Visit: Diagnoses Elevated white blood cell count, unspecified (07/28/22) Hypomagnesemia (07/28/22) Hypokalemia (07/28/22) Acute embolism and thrombosis of unspecified vein (07/28/22) Pleural effusion, not elsewhere classified (07/28/22) Acute infarction of intestine, part and extent unspecified (07/28/22) Acute pancreatitis without necrosis or infection, unspecified (07/28/22) Nausea with vomiting, unspecified (07/28/22) Elevation of levels of liver transaminase levels (07/28/22) Abnormal findings on diagnostic imaging of other parts of digestive tract (07/28/22) Subjective Subjective Continues to have intermittent abdominal pain at times that is severe, nausea also coming and going. Had 1 episode yesterday where she had some red sputum when she coughed roughly quarter size and then had some darker several times after that but denies overt cough or changes in her breathing Objective Data Objective Data Vital Signs: Vital Signs Temp Pulse Resp BP Pulse Ox O2 Del Method O2 Flow Rate 98.6 F 87 18 163/98 H 97 Room Air 2 08/01/22 01:45 08/01/22 01:45 08/01/22 01:45 08/01/22 01:45 08/01/22 01:45 08/01/22 01:45 07/28/22 18:05 Oxygen Flow Rate (L/min) 2 Oxygen Delivery Method Room Air Weight: 61.689 kg Body Mass Index (BMI) 23.3 Intake & Output: Intake and Output for Last 24 Hours 07/30/22 07/31/22 08/01/22 23:59 23:59 23:59 Intake Total 5061.40 / 5061.40 4365.43 / 4365.43 1102.48 / 1102.48 Output Total 800 / 800 Balance 4261.40 / 4261.40 4365.43 / 4365.43 1102.48 / 1102.48 Lab / Micro Data Result Diagrams: 08/01/22 05:01 08/01/22 05:01 Labs: Laboratory Results - last 24 hr 08/01/22 05:01: WBC 7.7, RBC 3.57 L, Hgb 11.8 L, Hct 34.0 L, MCV 95.2, MCH 33.1 H, MCHC 34.7, RDW Std Deviation 45.3 H, RDW Coeff of Frankie 12.9, Plt Count 189, MPV 10.9, Immature Gran % (Auto) 0.800, Neut % (Auto) 70.3 H, Lymph % (Auto) 16.7 L, Vigo % (Auto) 10.2 H, Eos % (Auto) 1.6, Baso % (Auto) 0.4, Absolute Neuts (auto) 5.4, Absolute Lymphs (auto) 1.28, Nucleated RBC % 0 08/01/22 05:01: Sodium 137, Potassium 2.7 L*, Chloride 98, Carbon Dioxide 29.0, Anion Gap 10, BUN 3 L, Creatinine 0.34 L, Estim Creat Clear Calc 184.23, Est GFR(MDRD) Af Amer 274, Est GFR (MDRD) Non-Af 226, BUN/Creatinine Ratio 8.9 L, Glucose 96, Calcium 8.7, Phosphorus 3.3, Magnesium 1.3 L, Total Bilirubin 0.70, AST 39 H, ALT 37, Alkaline Phosphatase 119 H, Total Protein 6.4, Albumin 2.9 L, Globulin 3.5, Albumin/Globulin Ratio 0.8 L 08/01/22 05:01: APTT 51.2 H Micro: Microbiology 07/30/22 11:26 Interface Orders Group A Streptococcus Rapid Screen - Preliminary 07/30/22 08:55 Nasal Secretion SARS-CoV-2 Antigen (Rapid) - Final Physical Exam Narrative General: Alert, oriented, appears somewhat upset HEENT: Atraumatic, normocephalic Eyes: Anicteric, normal conjunctiva, extraocular movements grossly intact Neck: Supple Respiratory: Slightly diminished at the bases, normal respiratory effort Cardiovascular: Regular rate and rhythm GI: Soft, nondistended, mildly diffusely tender more so epigastric radiating to left upper quadrant, no rebound, no guarding, no rigidity Extremities: No edema Musculoskeletal: Moving all extremities Neuro: No overt focal neurological deficits Skin: No rashes appreciated Psych: Cooperative Assessment & Plan Assessment/Plan (1) Pancreatitis: (2) Transaminitis: (3) Superior mesenteric vein thrombosis: (4) Hypokalemia: (5) Leukocytosis: (6) Nausea & vomiting: (7) Hypomagnesemia: (8) Pleural effusion: PLAN: Plan For 2-year-old female with a history of alcohol abuse, tobacco use, pancreatitis[facility] with abdominal pain/nausea/vomiting. It felt similar to previous episodes of pancreatitis and previous episodes had been presumed to be due to her alcohol intake. She was found to have heart rate of 106, leukocytosis mild at 11.9 with mild left shift. Potassium of 2.8 with normal renal function and AST 51, ALT 67 alk phos 131 with a lipase of 9420. She did have CT abdomen pelvis in the ED which demonstrated findings consistent with acute pancreatitis as well as a focal nonocclusive thrombus at the junction of the superior mesenteric vein and portalvein, varices in the splenic hilum and hepatomegaly with fatty infiltration of the liver. She was given aggressive IV fluids, pain medications, antiemetics and admitted. #Acute pancreatitis -Aggressive hydration, antiemetics, pain medication -GI consult -MRCP demonstrated mildly dilated common duct at 0.68 -Repeat CT done 07/30 showed low-attenuation foci in pancreatic tail and focal necrosis cannot be excluded -Clinically improving, clear liquid diet started and remains on fluids -Taper pain medication as able -ERCP once stable #Portal and superior mesenteric vein thrombosis -Hypercoag panel ordered -Heparin drip started, will need transition to oral agent after ERCP completed -This had been discussed with vascular and GI with previous provider with the determination of no need for surgical intervention -Repeat CTA of abdomen pelvis showed stable nonocclusive portal vein thrombus with filling defect in the left gonadal vein concerning for thrombus #Small bilateral pleural effusions -Seen on repeat CT 07/31, likely due to fluid resuscitation, no respiratory compromise, will monitor -This was discussed with GI, is receiving some IV fluids but received Lasix as well #GERD -IV PPI 40 twice daily #Hypertension -Amlodipine held and enalaprilat continued -As needed hydralazine #Alcohol abuse -Was started on CIWA with as needed coverage -Folic acid, status post thiamine #Tobacco abuse -Recommend cessation, nicotine patch ordered #DVT ppx: Remains on heparin Monika Crouch MD Time spent in the patient's overall evaluation,decision-making process, review of diagnostic data, adjustment of management, discussion with other providers, nursing nursing and ancillary staff involved in patient's care documentation, 35minutes Charges/Coding Visit Charges Inpatient E&M: 77448 Subs Hosp L2 08/01/221928 <Electronically signed by Monika Crouch MD> Cosigner Signature (if applicable): CC: ~ Signed [facility] Work Phone: 1(654) 969-438902-27-2023 Progress note Author Chandler Salamanca [facility] August 01, 2022 5:29pm Note Date/Time August 01, 2022 5:26pm [facility] Medical Records Department [address] [place] [address] Progress Note 08/01/22 1724 MR#: [id number] Acct: [id number] Name: MELVA KERNS OCTOBER Rep #:[id number] : 1980 42 From: Chandler Salamanca DO PCP: Care Physician,No Primary Status :ADM IN [place] [facility] [place] Subjective Subjective Patient did have some abdominal pain. She rates abdominal pain at about a 5 outof 10. She is able to tolerate a liquid diet. She does have nausea and is still requiring narcotics. She denies any shortness of breath. Objective Data Objective Data Vital Signs: Vital Signs Temp Pulse Resp BP Pulse Ox O2 Del Method O2 Flow Rate 97.8 F 70 18 147/77 H 97 Room Air 2 08/01/22 13:00 08/01/22 16:20 08/01/22 13:00 08/01/22 16:20 08/01/22 13:00 08/01/22 13:00 07/28/22 18:05 Oxygen Flow Rate (L/min) 2 Oxygen Delivery Method Room Air Weight: 136 lb 0.015 oz Body Mass Index (BMI) 23.3 Intake & Output: Intake and Output for Last 24 Hours 07/30/22 07/31/22 08/01/22 23:59 23:59 23:59 Intake Total 5061.40 / 5061.40 4365.43 / 4365.43 4599.28 / 4599.28 Output Total 800 / 800 Balance 4261.40 / 4261.40 4365.43 / 4365.43 4599.28 / 4599.28 Lab / Micro Data Result Diagrams: 08/01/22 05:01 08/01/22 05:01 Labs: Laboratory Results - last 24 hr 07/30/22 11:02: LIZETTE-1 Antibody <0.2, SS-A/Ro IgG Antibody < 0.2, SS-B/La IgG Antibody < 0.2, Sm (Lee) Antibody <0.2, DIRECTOR OF LABOR RELATIONS Antibody 0.3, Scl-70 Scleroderma Ab <0.2, Double Strand DNA Ab 1, Centromere B Antibody <0.2 08/01/22 05:01: WBC 7.7, RBC 3.57 L, Hgb 11.8 L, Hct 34.0 L, MCV 95.2, MCH 33.1 H, MCHC 34.7, RDW Std Deviation 45.3 H, RDW Coeff of Frankie 12.9, Plt Count 189, MPV 10.9, Immature Gran % (Auto) 0.800, Neut % (Auto) 70.3 H, Lymph % (Auto) 16.7 L, Vigo % (Auto) 10.2 H, Eos % (Auto) 1.6, Baso % (Auto) 0.4, Absolute Neuts (auto) 5.4, Absolute Lymphs (auto) 1.28, Nucleated RBC % 0 08/01/22 05:01: Sodium 137, Potassium 2.7 L*, Chloride 98, Carbon Dioxide 29.0, Anion Gap 10, BUN 3 L, Creatinine 0.34 L, Estim Creat Clear Calc 184.23, Est GFR(MDRD) Af Amer 274, Est GFR (MDRD) Non-Af 226, BUN/Creatinine Ratio 8.9 L, Glucose 96, Calcium 8.7, Phosphorus 3.3, Magnesium 1.3 L, Total Bilirubin 0.70, AST 39 H, ALT 37, Alkaline Phosphatase 119 H, Total Protein 6.4, Albumin 2.9 L, Globulin 3.5, Albumin/Globulin Ratio 0.8 L 08/01/22 05:01: APTT 51.2 H 08/01/22 12:23: APTT 52.2 H Micro: Microbiology 07/30/22 11:26 Interface Orders Group A Streptococcus Rapid Screen - Final 07/30/22 08:55 Nasal Secretion SARS-CoV-2 Antigen (Rapid) - Final Physical Exam Narrative General: Alert, oriented, no apparent distress HEENT: Atraumatic, normocephalic Eyes: Anicteric, normal conjunctiva, extraocular movements grossly intact Neck: Supple Respiratory: Clear to auscultation bilaterally, normal respiratory effort Cardiovascular: Regular rate and rhythm GI: Soft, nontender, nondistended Extremities: No edema Musculoskeletal: Moving all extremities Neuro: No overt focal neurological deficits Skin: No rashes appreciated Psych: Cooperative Assessment & Plan Assessment/Plan (1) Leukocytosis: (2) Transaminitis: PLAN: Transaminitis possibly secondary to alcoholic hepatitis although I suspectthat there is some elements of chronic liver disease due to the fact that the ALT is greater than AST. That is not the classic alcoholic hepatitis pattern. There is no sign of chronic hepatitis from current work-up. She did have anti-DIRECTOR OF LAB[employer] RELATIONS antibody that is positive but that is associated mixed connective tissue disease and not usually associated with acute transaminitis secondary to acute hepatitis likely from ischemic disease versus acute alcoholic hepatitis. (3) Pancreatitis: PLAN: Acute alcoholic pancreatitis complicated by thrombosis of the mesenteric vessels. Recommend IV fluids at 150 cc an hour. I am not sure if she is havingchest pain secondary to fluid administration. I will give her Lasix due to having effusions from likely IV fluid administration and acute pancreatitis. Wemay have to switch the IV fluids to a colloid instead of a crystalloid. Her CT scan abdomen pelvis does show likely pancreatic necrosis in the tail of the pancreas. There is no sign of hemorrhagic pancreatitis. I will repeat her ESR,CRP and lactic acid. 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 There is arisk of transformation to hemorrhagic pancreatitis. I discussed this with the patient in detail and showed her the pictures of the large thrombosis involving the portal vein and other splenic vasculature. Repeat CT scan of the abdomen pelvis did not show any occlusive thrombosis of the portal vein which is really good. We would likely need hematology recommendations regarding long-term treatment of superior mesenteric and portal vein thrombosis. There was no sign of varices that were seen on repeat imaging in the stomach. (5) Abnormal magnetic resonance cholangiopancreatography (MRCP): PLAN: Findings from MRCP are as follows : common duct 0.68 cm which is mildly dilated.? This could be age-related. Other considerations would include distal common duct stricture, impacted occult a recently passed calculus.? Additional considerations would include a cold mass regional to the distal common duct. Since she has active pancreatitis at this time I do not want to make that worse. Once she is cell settle down we can do an ERCP at a later time. (6) Thrombosis: PLAN: CT imaging did show left gonadal vein thrombosis which is likely secondaryto hypercoagulable state from pancreatitis. She continues on anticoagulation. Recommend hematology consultation. Charges/Coding Visit Charges Inpatient E&M: 46698 Subs Hosp L3 08/01/221728 <Electronically signed by Chandler Salamanca DO> Chandler Salamanca DO Cosigner Signature (if applicable): CC: ~ Signed [facility] Work Phone: [phone]) [phone] Leonard [facility] July 31, 2022 1:36pm Note Date/Time July 31, 2022 1:36pm [facility] Medical Records Department [address] [place] [address] Progress Note - Hospitalist 07/31/22 1329 MR#: [id number] Acct: [id number] Name: MELVA KERNS Rep #:[id number] : 1980 42 From: Jovanna Leonard DO PCP: Care Physician,No Primary Status :ADM IN Location: MS[facility] XL292-9 Reason for Visit Reason for Visit: Abdominal pain/nausea/vomiting Subjective Subjective Patient is feeling better overall. Complaining of some low back pain currently. On exam no flank ecchymosis noted and tenderness on paraspinals. Discussed with patient that we will go ahead and start some muscle relaxant. Sore throat has resolved. Patient states she would like to try to eat something. I indicated that I would start a clear liquid diet. Patient did states she is passing flatus and had a small bowel movement yesterday Objective Data Objective Data Vital Signs: Vital Signs Temp Pulse Resp BP Pulse Ox O2 Del Method O2 Flow Rate 98.3 F 73 17 147/94 H 95 Room Air 2 07/31/22 12:35 07/31/22 12:35 07/31/22 12:35 07/31/22 12:35 07/31/22 12:35 07/31/22 12:35 07/28/22 18:05 Oxygen Flow Rate (L/min) 2 Oxygen Delivery Method Room Air Weight: 61.689 kg Body Mass Index (BMI) 23.3 Intake & Output: Intake and Output for Last 24 Hours 07/29/22 07/30/22 07/31/22 23:59 23:59 23:59 Intake Total 6733.49 / 6733.49 5061.40 / 5061.40 2648.95 / 2648.95 Output Total 200 / 200 800 / 800 Balance 6533.49 / 6533.49 4261.40 / 4261.40 2648.95 / 2648.95 Lab / Micro Data Result Diagrams: 07/31/22 05:50 07/31/22 05:50 Labs: Laboratory Results - last 24 hr 07/30/22 14:16: APTT 65.6 H 07/30/22 20:08: APTT 63.5 H 07/31/22 05:50: WBC 7.6, RBC 3.39 L, Hgb 11.2 L, Hct 33.3 L, MCV 98.2, MCH 33.0 H, MCHC 33.6, RDW Std Deviation 48.3 H, RDW Coeff of Frankie 13.5, Plt Count 150, MPV 10.3, Immature Gran % (Auto) 0.300, Neut % (Auto) 67.9, Lymph % (Auto) 18.6 L, Vigo % (Auto) 10.7 H, Eos % (Auto) 2.1, Baso % (Auto) 0.4, Absolute Neuts (auto) 5.2, Absolute Lymphs (auto) 1.41, Nucleated RBC % 0 07/31/22 05:50: Sodium 139, Potassium 3.5, Chloride 104, Carbon Dioxide 26.0, Anion Gap 9, BUN 3 L, Creatinine 0.40 L, Estim Creat Clear Calc 156.60, Est GFR (MDRD) Af Amer 225, Est GFR (MDRD) Non-Af 186, BUN/Creatinine Ratio 7.5 L, Glucose 81, Calcium 8.9, Total Bilirubin 0.70, AST 30, ALT 34, Alkaline Phosphatase 97, Total Protein 6.4, Albumin 2.9 L, Globulin 3.5, Albumin/GlobulinRatio 0.8 L 07/31/22 05:50: APTT 60.0 H Micro: Microbiology 07/30/22 11:26 Interface Orders Group A Streptococcus Rapid Screen - Preliminary 07/30/22 08:55 Nasal Secretion SARS-CoV-2 Antigen (Rapid) - Final Radiography Diagnostic Testing: Radiology Impression Abdomen/Pelvis CT 07/30/22 10:48 IMPRESSION: Stable nonocclusive portal vein thrombus. Filling defect within the left gonadal vein concerning for a thrombus. Acute pancreatitis associated with a low-attenuation focus within the pancreatic tail, cannot exclude focal necrosis. Fatty infiltration of the liver. Stable dilated common bile duct. New bilateral pleural effusions associated with lower lobe consolidation. Electronically Signed: Elizabeth Multani MD at 15:46 EST , Physical Exam Const alert, oriented x3 and well nourished Constitutional Narrative: Middle-aged white female who appears much older than stated age, sitting up in her bed, watching television, overall appears much better than on admission, nontoxic, appears comfortable at this time General Appearance: cooperative HEENT normocephalic, head/scalp atraumatic and hearing grossly normal bilaterally HEENT Narrative: Mallampati is 2, no thrush Eyes Eyes Narrative: Resp normal respiratory effort, no retractions, no use of accessory muscles and No clear to auscultation bilaterally Resp Narrative: Diffusely diminished with scattered end expiratory wheezes, slightly diminished at bases bilaterally more significantly than previous Auscultation: wheezes; Negative for rales or rhonchi Cardio regular rate, regular rhythm, S1 normal heart sound, S2 normal heart sound, no murmurs, no rub, no gallops and no clicks Cardio Narrative: GI normal to inspection, nondistended, normoactive bowel sounds, soft to palpation and non-tender GI Narrative: Marked tenderness in upper abdomen, bowel sounds are hypoactive, no distention, soft Extremity Extremity Narrative: 2+ pedal pulses, trace bilateral lower extremity edema, no cyanosis or clubbing Skin no rashes or lesions noted, no wounds, skin turgor normal, no jaundice, no petechiae and no mottling Neuro oriented x3 and moves all extremities Speech: speech normal Psych Psych Narrative: Mood is much brighter and affect is less flat Assessment & Plan Assessment/Plan (1) Pancreatitis: (2) Transaminitis: (3) Superior mesenteric vein thrombosis: (4) Hypokalemia: (5) Leukocytosis: (6) Nausea & vomiting: (7) Hypomagnesemia: (8) Pleural effusion: PLAN: Plan Acute pancreatitis -Etiology is unclear at this time -Pattern of liver enzyme elevation is not consistent with alcoholic hepatitis -Repeat CT done yesterday to further evaluate her thrombosis does show acute pancreatitis with low-attenuation foci in the pancreatic tail and focal necrosiscannot be excluded, fatty infiltration of the liver and a stable dilated common bile duct with new bilateral effusions -MRCP demonstrated a mildly dilated common duct at 0.68, increased signal in theupper pole of the left kidney -Clinically much improved--> start clear liquid diet -Per discussion with GI still continue IV fluids at 150 an hour -As needed pain medication--> dose reduced today -Antiemetics as needed -GI is following--> for other work-up is pending -ERCP with abnormality on MRCP once pancreas is more stable -Patient needs complete alcohol cessation Portal and superior mesenteric vein thrombosis -hypercoag panel is pending -No family history or personal history of clotting -Continue heparin drip -Repeat CTA of the abdomen pelvis shows stable nonocclusive portal vein thrombuswith filling defect in the left gonadal vein concerning for thrombus -Plan to transition to oral agent once pancreas calms down and there is no clearneed for any intervention -Will need to hold off until after ERCP is completed -Per vascular surgery no need for surgical intervention or consultation -Discussed with GI Small bilateral pleural effusions -Continue IV fluids per discussion with GI secondary to pancreatitis but will dose Lasix as well -No clinical manifestations of complication related to this at this time -Lasix 40 mg IV push x1 dose -We will be able to reduce IV fluids soon Left kidney abnormality -CTA of the abdomen pelvis shows 2 too small to characterize low-attenuation foci in the left kidney which may be consistent with a cyst Hypokalemia -Resolved -Repeat in a.m. History of GERD -Hold omeprazole -Hold Carafate -Continue IV Protonix 40 twice daily Hypertension -Hold amlodipine -Continue enalaprilat but increase to 1.25 every 6 hours as blood pressures haveremained quite elevated -Continue as needed hydralazine for systolic blood pressure greater than 160 -We will restart home medications when able Alcohol abuse -Patient drinks approximately 4 shots a day of vodka -Last drink was afternoon at 3 p.m. on 07/27/2022 -Patient continues to have no signs of withdrawal -CIWA with as needed IV Ativan -May need more extensive medication for detox with phenobarbital depending on symptoms-monitor closely -IV thiamine 200 daily x3 days--> day 3 of 3 -IV folic acid 1 g daily -No current signs of acute withdrawal Tobacco abuse -Patient heavy smoker -Recommend tobacco cessation -Nicotine patch-21 mcg while hospitalized DVT prophylaxis -Full anticoagulation with heparin CODE STATUS -Full code Charges/Coding Visit Charges Inpatient E&M: 39330 Subs Hosp L2 07/31/22 1336 <Electronically signed by Jovanna Leonard DO> Cosigner Signature (if applicable): CC: ~ Signed [facility] Work Phone: 1(304) 235-142702-26-2023 Progress note Author Chandler Friend [facility] July 31, 2022 11:57am Note Date/Time July 31, 2022 11:57am [facility] Medical Records Department [address] [place] [id number] Progress Note 07/31/22 1152 MR#: [id number] Acct: [id number] Name: MELVA KERNS Rep #:[id number] : 1980 42 From: Chandler Friend PCP: Care Physician,No Primary Status :ADM IN Location: [facility] CG600-6 Subjective Subjective Patient has been up and walking. She wants something else to eat. She still having back pain and left-sided abdominal pain but it is improved from yesterday. She denies any fevers and nausea. Objective Data Objective Data Vital Signs: Vital Signs Temp Pulse Resp BP Pulse Ox O2 Del Method O2 Flow Rate 98.0 F 76 18 151/100 H 96 Room Air 2 07/31/22 08:00 07/31/22 08:00 07/31/22 08:00 07/31/22 08:00 07/31/22 08:00 07/31/22 11:40 07/28/22 18:05 Oxygen Flow Rate (L/min) 2 Oxygen Delivery Method Room Air Weight: 136 lb 0.015 oz Body Mass Index (BMI) 23.3 Intake & Output: Intake and Output for Last 24 Hours 07/29/22 07/30/22 07/31/22 23:59 23:59 23:59 Intake Total 6733.49 / 6733.49 5061.40 / 5061.40 2419.45 / 2419.45 Output Total 200 / 200 800 / 800 Balance 6533.49 / 6533.49 4261.40 / 4261.40 2419.45 / 2419.45 Lab / Micro Data Result Diagrams: 07/31/22 05:50 07/31/22 05:50 Labs: Laboratory Results - last 24 hr 07/30/22 11:02: ESR 24 07/30/22 14:16: APTT 65.6 H 07/30/22 20:08: APTT 63.5 H 07/31/22 05:50: WBC 7.6, RBC 3.39 L, Hgb 11.2 L, Hct 33.3 L, MCV 98.2, MCH 33.0 H, MCHC 33.6, RDW Std Deviation 48.3 H, RDW Coeff of Frankie 13.5, Plt Count 150, MPV 10.3, Immature Gran % (Auto) 0.300, Neut % (Auto) 67.9, Lymph % (Auto) 18.6 L, Vigo % (Auto) 10.7 H, Eos % (Auto) 2.1, Baso % (Auto) 0.4, Absolute Neuts (auto) 5.2, Absolute Lymphs (auto) 1.41, Nucleated RBC % 0 07/31/22 05:50: Sodium 139, Potassium 3.5, Chloride 104, Carbon Dioxide 26.0, Anion Gap 9, BUN 3 L, Creatinine 0.40 L, Estim Creat Clear Calc 156.60, Est GFR (MDRD) Af Amer 225, Est GFR (MDRD) Non-Af 186, BUN/Creatinine Ratio 7.5 L, Glucose 81, Calcium 8.9, Total Bilirubin 0.70, AST 30, ALT 34, Alkaline Phosphatase 97, Total Protein 6.4, Albumin 2.9 L, Globulin 3.5, Albumin/GlobulinRatio 0.8 L 07/31/22 05:50: APTT 60.0 H Micro: Microbiology 07/30/22 11:26 Interface Orders Group A Streptococcus Rapid Screen - Preliminary 07/30/22 08:55 Nasal Secretion SARS-CoV-2 Antigen (Rapid) - Final Radiography Diagnostic Testing: Radiology Impression Abdomen/Pelvis CT 07/30/22 10:48 IMPRESSION: Stable nonocclusive portal vein thrombus. Filling defect within the left gonadal vein concerning for a thrombus. Acute pancreatitis associated with a low-attenuation focus within the pancreatic tail, cannot exclude focal necrosis. Fatty infiltration of the liver. Stable dilated common bile duct. New bilateral pleural effusions associated with lower lobe consolidation. Electronically Signed: Elizabeth Multani MD at 15:46 EST , Physical Exam Const alert, oriented x3 and well nourished General Appearance: cooperative HEENT normocephalic, head/scalp atraumatic and hearing grossly normal bilaterally HEENT Narrative: Mallampati 2, no thrush Eyes Eyes Narrative: Resp normal respiratory effort, no retractions, no use of accessory muscles and No clear to auscultation bilaterally Resp Narrative: Diffusely diminished with scattered end expiratory wheezes, rhonchi have resolved Auscultation: wheezes; Negative for rales or rhonchi Cardio regular rate, regular rhythm, S1 normal heart sound, S2 normal heart sound, no murmurs, no rub, no gallops and no clicks Cardio Narrative: GI normal to inspection, nondistended, normoactive bowel sounds and soft to palpation GI Narrative: Marked tenderness in upper abdomen, bowel sounds are hypoactive, no distention, soft Extremity no clubbing, cyanosis or edema Extremity Narrative: 2+ pedal pulses Neuro oriented x3, moves all extremities and no focal motor deficits Speech: speech normal Psych Psych Narrative: Mood is improved today with less flatness her affect, mood is less depressed as well Assessment & Plan Assessment/Plan (1) Leukocytosis: (2) Transaminitis: PLAN: Transaminitis possibly secondary to alcoholic hepatitis although I suspectthat there is some elements of chronic liver disease due to the fact that the ALT is greater than AST. That is not the classic alcoholic hepatitis pattern. Should check labs for chronic hepatitis such as ferritin, transferrin saturation, CPK, anti- smooth muscle antibody, antimitochondrial antibody, viral hepatitis and protein electrophoresis. (3) Pancreatitis: PLAN: Acute alcoholic pancreatitis complicated by thrombosis of the mesenteric vessels. Recommend IV fluids at 150 cc an hour. I am not sure if she is havingchest pain secondary to fluid administration. I will give her Lasix due to having effusions from likely IV fluid administration and acute pancreatitis. Wemay have to switch the IV fluids to a colloid instead of a crystalloid. Her CT scan abdomen pelvis does show likely pancreatic necrosis in the tail of the pancreas. There is no sign of hemorrhagic pancreatitis. I will repeat her ESR,CRP and lactic acid. 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 There is arisk of transformation to hemorrhagic pancreatitis. I discussed this with the patient in detail and showed her the pictures of the large thrombosis involving the portal vein and other splenic vasculature. Repeat CT scan of the abdomen pelvis did not show any occlusive thrombosis of the portal vein which is really good. We would likely need hematology recommendations regarding long-term treatment of superior mesenteric and portal vein thrombosis. There was no sign of varices that were seen on repeat imaging in the stomach. (5) Abnormal magnetic resonance cholangiopancreatography (MRCP): PLAN: Findings from MRCP are as follows : common duct 0.68 cm which is mildly dilated.? This could be age-related. Other considerations would include distal common duct stricture, impacted occult a recently passed calculus.? Additional considerations would include a cold mass regional to the distal common duct. Since she has active pancreatitis at this time I do not want to make that worse. Once she is cell settle down we can do an ERCP at a later time. (6) Thrombosis: PLAN: CT imaging did show left gonadal vein thrombosis which is likely secondaryto hypercoagulable state from pancreatitis. She continues on anticoagulation. Recommend hematology consultation. Charges/Coding Visit Charges Inpatient E&M: 43699 Subs Hosp L3 07/31/22 1157 <Electronically signed by Chandler Salamanca DO> Chandler Salamanca DO Cosigner Signature (if applicable): CC: ~ Signed [facility] Work Phone: 1([phone]) 668-662202-25-[address] Leonard [facility] July 30, 2022 1:50pm Note Date/Time July 30, 2022 1:50pm [facility] Medical Records Department [address] [place] [id number] Progress Note - Hospitalist 07/30/22 1340 MR#: [id number] Acct: [id number] Name: MELVA KERNS Rep #:[id number] : 1980 42 From: Jovanna Leonard DO PCP: Care Physician,No Primary Status :ADM IN Location: [place] [id number] Reason for Visit Reason for Visit: Abdominal pain/nausea/vomiting Subjective Subjective Patient states she is feeling better. Today is the first day of seen her out ofbed and she is walking around the room. Still requiring quite a bit of pain medication. Asking if she can try some ice chips. I did discuss with her the need for an ERCP but we need to get her pancreas to calm down further before that will be proceeded with. At the earliest that would take place is likely Monday. She voiced understanding. She complained of some sore throat and nasaldrainage. Objective Data Objective Data Vital Signs: Vital Signs Temp Pulse Resp BP Pulse Ox O2 Del Method O2 Flow Rate 99.3 F H 102 H 18 142/89 H 93 Room Air 2 07/30/22 08:10 07/30/22 08:10 07/30/22 08:10 07/30/22 08:10 07/30/22 08:10 07/30/22 08:35 07/28/22 18:05 Oxygen Flow Rate (L/min) 2 Oxygen Delivery Method Room Air Weight: 61.689 kg Body Mass Index (BMI) 23.3 Intake & Output: Intake and Output for Last 24 Hours 07/28/22 07/29/22 07/30/22 23:59 23:59 23:59 Intake Total 3318.83 / 3318.83 6733.49 / 6733.49 3109.27 / 3109.27 Output Total 200 / 200 Balance 3318.83 / 3318.83 6533.49 / 6533.49 3109.27 / 3109.27 Lab / Micro Data Result Diagrams: 07/30/22 07:20 07/30/22 07:20 Labs: Laboratory Results - last 24 hr 07/29/22 15:50: APTT 81.1 H 07/29/22 23:50: APTT 52.0 H 07/30/22 07:20: WBC 7.9, RBC 3.59 L, Hgb 11.6 L, Hct 35.6 L, MCV 99.2 H, MCH 32.3 H, MCHC 32.6, RDW Std Deviation 50.4 H, RDW Coeff of Frankie 13.8, Plt Count 146 L, MPV 10.2, Immature Gran % (Auto) 0.400, Neut % (Auto) 71.4 H, Lymph % (Auto) 16.5 L, Vigo % (Auto) 9.4, Eos % (Auto) 1.9, Baso % (Auto) 0.4, Absolute Neuts (auto) 5.6, Absolute Lymphs (auto) 1.30, Nucleated RBC % 0 07/30/22 07:20: Sodium 141, Potassium 2.9 L, Chloride 104, Carbon Dioxide 29.0, Anion Gap 8, BUN 2 L, Creatinine 0.32 L, Estim Creat Clear Calc 195.75, Est GFR (MDRD) Af Amer 287, Est GFR (MDRD) Non-Af 237, BUN/Creatinine Ratio 6.2 L, Glucose 87, Calcium 8.1 L, Magnesium 1.8, Total Bilirubin 0.50, AST 22, ALT 35, Alkaline Phosphatase 82, Total Protein 5.5 L, Albumin 2.5 L, Globulin 3.0, Albumin/Globulin Ratio 0.8 L 07/30/22 07:20: APTT 80.2 H 07/30/22 11:02: ESR 24 07/30/22 11:02: C-React Prot Ext Range 101.00 H Micro: Microbiology 07/30/22 11:26 Interface Orders Group A Streptococcus Rapid Screen - Preliminary 07/30/22 08:55 Nasal Secretion SARS-CoV-2 Antigen (Rapid) - Final Physical Exam Const alert, oriented x3 and well nourished Constitutional Narrative: Middle-aged white female who appears much older than stated age, walking around her room, watching television, appears less ill and more comfortable, still nontoxic General Appearance: cooperative HEENT normocephalic, head/scalp atraumatic and hearing grossly normal bilaterally HEENT Narrative: Mallampati 2, no thrush Eyes Eyes Narrative: Resp normal respiratory effort, no retractions, no use of accessory muscles and No clear to auscultation bilaterally Resp Narrative: Diffusely diminished with scattered end expiratory wheezes, rhonchi have resolved Auscultation: wheezes; Negative for rales or rhonchi Cardio regular rate, regular rhythm, S1 normal heart sound, S2 normal heart sound, no murmurs, no rub, no gallops and no clicks Cardio Narrative: GI normal to inspection, nondistended, normoactive bowel sounds and soft to palpation GI Narrative: Marked tenderness in upper abdomen, bowel sounds are hypoactive, no distention, soft Extremity no clubbing, cyanosis or edema Extremity Narrative: 2+ pedal pulses Neuro oriented x3, moves all extremities and no focal motor deficits Speech: speech normal Psych Psych Narrative: Mood is improved today with less flatness her affect, mood is less depressed as well Assessment & Plan Assessment/Plan (1) Pancreatitis: (2) Transaminitis: (3) Superior mesenteric vein thrombosis: (4) Hypokalemia: (5) Leukocytosis: (6) Nausea & vomiting: (7) Hypomagnesemia: PLAN: Plan Acute pancreatitis -Etiology is unclear at this time -Pattern of liver enzyme elevation is not consistent with alcoholic hepatitis -MRCP demonstrated a mildly dilated common duct at 0.68, increased signal in theupper pole of the left kidney -Continue n.p.o.--> okay for ice chips -Continue aggressive hydration with LR but will decrease rate to 150 from 250 cc/h -Renal function remained stable -As needed pain medication--> reduce as able -Antiemetics as needed -GI is following--> lab ordered -ERCP with abnormality on MRCP once pancreas is more stable -Patient needs complete alcohol cessation Portal and superior mesenteric vein thrombosis -hypercoag panel is pending -No family history or personal history of clotting -Continue heparin drip -Repeat CTA of the abdomen pelvis is pending to reassess portal vein/SMA thrombosis -Plan to transition to oral agent once pancreas calms down and there is no clearneed for any intervention -Will need to hold off until after ERCP is completed -Per vascular surgery no need for surgical intervention or consultation -Discussed with GI Left kidney abnormality -CTA of the abdomen pelvis has been ordered for reevaluation of the above but should get us more clarification on this Leukocytosis -Resolved Nausea and vomiting -Resolved Hypokalemia -Potassium remains low despite aggressive replacement -80 mill colons IV potassium -Would preferentially give orally however current situation prohibits -Magnesium is now within normal limits so this should help -Repeat BMP in a.m. Hypomagnesemia - resolved -We will repeat in a.m. and keep a close eye on this as she is n.p.o. History of GERD -Hold omeprazole -Hold Carafate -Continue IV Protonix 40 twice daily Hypertension -Hold amlodipine -Blood pressures are overall improved with scheduled enalaprilat -Continue enalaprilat 0.625 every 6 hours -Continue as needed hydralazine for systolic blood pressure greater than 160 -We will restart home medications when able Alcohol abuse -Patient drinks approximately 4 shots a day of vodka -Last drink was afternoon at 3 p.m. on 07/27/2022 -Patient continues to have no signs of withdrawal -CIWA with as needed IV Ativan -May need more extensive medication for detox with phenobarbital depending on symptoms-monitor closely -IV thiamine 200 daily x3 days--> day 2 of 3 -IV folic acid 1 g daily -No current signs of acute withdrawal Tobacco abuse -Patient heavy smoker -Recommend tobacco cessation -Nicotine patch-21 mcg while hospitalized DVT prophylaxis -Full anticoagulation with heparin CODE STATUS -Full code Charges/Coding Visit Charges Inpatient E&M: 39915 Subs Hosp L2 07/30/22 1350 <Electronically signed by Jovanna Leonard DO> Cosigner Signature (if applicable): CC: ~ Signed [facility] Work Phone: 1(264) 732-559002-25-2023 Progress note Author Chandler Friend [facility] July 30, 2022 10:48am Note Date/Time July 30, 2022 10:40am [facility] Medical Records Department [address] [place] [address] Progress Note 07/30/22 1039 MR#: [id number] Acct: [id number] Name: MELVA KERNS Rep #:[id number] : 1980 42 From: Chandler Salamanca DO PCP: Care Physician,No Primary Status :ADM IN Location: [place] [id number] Subjective Subjective Patient's abdominal pain is a little bit better today. She recent 4 out [address] to an 8 out of 10 that is still on the left side radiating to the back she complains of some nausea and some back pain. She denies any chest painor shortness of breath. She denies any weakness. Objective Data Objective Data Vital Signs: Vital Signs Temp Pulse Resp BP Pulse Ox O2 Del Method O2 Flow Rate 99.3 F H 102 H 18 142/89 H 93 Room Air 2 07/30/22 08:10 07/30/22 08:10 07/30/22 08:10 07/30/22 08:10 07/30/22 08:10 07/30/22 08:35 07/28/22 18:05 Oxygen Flow Rate (L/min) 2 Oxygen Delivery Method Room Air Weight: 136 lb 0.015 oz Body Mass Index (BMI) 23.3 Intake & Output: Intake and Output for Last 24 Hours 07/28/22 07/29/22 07/30/22 23:59 23:59 23:59 Intake Total 3318.83 / 3318.83 6733.49 / 6733.49 2223.1 / 2223.1 Output Total 200 / 200 Balance 3318.83 / 3318.83 6533.49 / 6533.49 2223.1 / 2223.1 Lab / Micro Data Result Diagrams: 07/30/22 07:20 07/30/22 07:20 Labs: Laboratory Results - last 24 hr 07/29/22 15:50: APTT 81.1 H 07/29/22 23:50: APTT 52.0 H 07/30/22 07:20: WBC 7.9, RBC 3.59 L, Hgb 11.6 L, Hct 35.6 L, MCV 99.2 H, MCH 32.3 H, MCHC 32.6, RDW Std Deviation 50.4 H, RDW Coeff of Frankie 13.8, Plt Count 146 L, MPV 10.2, Immature Gran % (Auto) 0.400, Neut % (Auto) 71.4 H, Lymph % (Auto) 16.5 L, Vigo % (Auto) 9.4, Eos % (Auto) 1.9, Baso % (Auto) 0.4, Absolute Neuts (auto) 5.6, Absolute Lymphs (auto) 1.30, Nucleated RBC % 0 07/30/22 07:20: Sodium 141, Potassium 2.9 L, Chloride 104, Carbon Dioxide 29.0, Anion Gap 8, BUN 2 L, Creatinine 0.32 L, Estim Creat Clear Calc 195.75, Est GFR (MDRD) Af Amer 287, Est GFR (MDRD) Non-Af 237, BUN/Creatinine Ratio 6.2 L, Glucose 87, Calcium 8.1 L, Magnesium 1.8, Total Bilirubin 0.50, AST 22, ALT 35, Alkaline Phosphatase 82, Total Protein 5.5 L, Albumin 2.5 L, Globulin 3.0, Albumin/Globulin Ratio 0.8 L 07/30/22 07:20: APTT 80.2 H Micro: Microbiology 07/30/22 08:55 Nasal Secretion SARS-CoV-2 Antigen (Rapid) - Final Physical Exam Const alert, oriented x3 and well nourished General Appearance: cooperative HEENT normocephalic, head/scalp atraumatic and hearing grossly normal bilaterally Resp normal respiratory effort, no retractions, no use of accessory muscles and No clear to auscultation bilaterally Resp Narrative: Diffusely diminished with scattered end expiratory wheezes with scattered rhonchi that improved with cough Auscultation: rhonchi and wheezes; Negative for rales Cardio regular rate, regular rhythm, S1 normal heart sound, S2 normal heart sound, no murmurs, no rub, no gallops and no clicks GI normal to inspection, nondistended, normoactive bowel sounds, soft to palpation and non-tender GI Narrative: Marked tenderness in upper abdomen, bowel sounds are hypoactive, no distention, soft Extremity no clubbing, cyanosis or edema Extremity Narrative: 2+ pedal pulses Neuro oriented x3, moves all extremities and no focal motor deficits Neuro Narrative: No sensory deficits Speech: speech normal Psych Psych Narrative: Affect is flat, eye contact is good, mood seems depressed Assessment & Plan Assessment/Plan (1) Leukocytosis: (2) Transaminitis: PLAN: Transaminitis possibly secondary to alcoholic hepatitis although I suspectthat there is some elements of chronic liver disease due to the fact that the ALT is greater than AST. That is not the classic alcoholic hepatitis pattern. Should check labs for chronic hepatitis such as ferritin, transferrin saturation, CPK, anti- smooth muscle antibody, antimitochondrial antibody, viral hepatitis and protein electrophoresis. (3) Pancreatitis: PLAN: Acute alcoholic pancreatitis complicated by thrombosis of the mesenteric vessels. Recommend IV fluids at 250 cc an hour. I am not sure if she is havingchest pain secondary to fluid administration. I will check troponins, EKG and chest x- ray. 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 There is arisk of transformation to hemorrhagic pancreatitis. I discussed this with the patient in detail and showed her the pictures of the large thrombosis involving the portal vein and other splenic vasculature. Recommend vascular consultation for possible thrombectomy. I would repeat the CT scan today to see if there is any improvement in the thrombosis. (5) Abnormal magnetic resonance cholangiopancreatography (MRCP): PLAN: Findings from MRCP are as follows : common duct 0.68 cm which is mildly dilated.? This could be age-related. Other considerations would include distal common duct stricture, impacted occult a recently passed calculus.? Additional considerations would include a cold mass regional to the distal common duct. Since she has active pancreatitis at this time I do not want to make that worse. Once she is cell settle down we can do an ERCP at a later time. Charges/Coding Visit Charges Inpatient E&M: 08652 Subs Hosp L3 07/30/22 1045 <Electronically signed by Chandler Friend > Chandler Friend DO Cosigner Signature (if applicable): CC: ~ Signed [facility] Work Phone: [phone]) 246-800302-24-2023 Progress note Author Chandler Friend [facility] July 29, 2022 5:30pm Note Date/Time July 29, 2022 5:28pm [facility] Medical Records Department [address] [place] [address] Progress Note 07/29/22 1727 MR#: [id number] Acct: [id number] Name: MELVA KERNS Rep #:[id number] : 1980 42 From: Chandler Salamanca DO PCP: Care Physician,No Primary Status :ADM IN Location: [facility] KR650-8 Subjective Subjective She rates her pain at a 7 out of 10. Yesterday was a 10 out of 10. She is urinating a lot but has not had any bowel movements. She still requiring a lot of of narcotics for pain control. Objective Data Objective Data Vital Signs: Vital Signs Temp Pulse Resp BP Pulse Ox O2 Del Method O2 Flow Rate 98.7 F 113 H 19 H 157/99 H 97 Room Air 2 07/29/22 17:21 07/29/22 17:21 07/29/22 17:21 07/29/22 17:21 07/29/22 17:21 07/29/22 17:21 07/28/22 18:05 Oxygen Flow Rate (L/min) 2 Oxygen Delivery Method Room Air Weight: 136 lb 0.015 oz Body Mass Index (BMI) 23.3 Intake & Output: Intake and Output for Last 24 Hours 07/27/22 07/28/22 07/29/22 23:59 23:59 23:59 Intake Total 3318.83 / 3318.83 4611.33 / 4611.33 Output Total 200 / 200 Balance 3318.83 / 3318.83 4411.33 / 4411.33 Lab / Micro Data Result Diagrams: 07/29/22 04:57 07/29/22 04:57 Labs: Laboratory Results - last 24 hr 07/28/22 17:45: Troponin I High Sens 7 07/28/22 19:32: APTT 44.7 H 07/29/22 01:10: APTT 50.3 H 07/29/22 04:57: WBC 13.9 H, RBC 4.60, Hgb 15.0, Hct 45.4, MCV 98.7, MCH 32.6 H, MCHC 33.0, RDW Std Deviation 49.4 H, RDW Coeff of Frankie 13.5, Plt Count 209, MPV 11.1, Immature Gran % (Auto) 0.600, Neut % (Auto) 85.9 H, Lymph % (Auto) 6.3 L, Vigo % (Auto) 6.3, Eos % (Auto) 0.6, Baso % (Auto) 0.3, Absolute Neuts (auto) 11.9 H, Absolute Lymphs (auto) 0.88, Nucleated RBC % 0 07/29/22 04:57: Sodium 134 L, Potassium 3.0 L, Chloride 97 L, Carbon Dioxide 27.0, Anion Gap 10, BUN 3 L, Creatinine 0.46 L, Estim Creat Clear Calc 136.17, Est GFR (MDRD) Af Amer 190, Est GFR (MDRD) Non-Af 157, BUN/Creatinine Ratio 6.5 L, Glucose 118 H, Calcium 8.7, Phosphorus 2.8, Magnesium 1.3 L, Total Bilirubin 0.60, AST 40 H, ALT 52, Alkaline Phosphatase 127 H, Total Protein 7.5, Albumin 3.5, Globulin 4.0, Albumin/Globulin Ratio 0.9, TSH 2.20 07/29/22 04:57: Amylase 520 H, Lipase 4586 H 07/29/22 07:40: APTT 39.5 H 07/29/22 15:50: APTT 81.1 H Radiography Diagnostic Testing: Radiology Impression Chest X-Ray 07/28/22 18:05 IMPRESSION: No acute radiographic abnormalities. Electronically Signed: Xander Arora MD at 20:15 EST , Physical Exam Const alert, oriented x3 and well nourished General Appearance: cooperative HEENT normocephalic, head/scalp atraumatic and hearing grossly normal bilaterally Resp normal respiratory effort, no retractions, no use of accessory muscles and No clear to auscultation bilaterally Resp Narrative: Diffusely diminished with scattered end expiratory wheezes with scattered rhonchi that improved with cough Auscultation: rhonchi and wheezes; Negative for rales Cardio regular rate, regular rhythm, S1 normal heart sound, S2 normal heart sound, no murmurs, no rub, no gallops and no clicks GI normal to inspection, nondistended, normoactive bowel sounds, soft to palpation and non-tender GI Narrative: Marked tenderness in upper abdomen, bowel sounds are hypoactive, no distention, soft Extremity no clubbing, cyanosis or edema Extremity Narrative: 2+ pedal pulses Neuro oriented x3, moves all extremities and no focal motor deficits Neuro Narrative: No sensory deficits Speech: speech normal Psych Psych Narrative: Affect is flat, eye contact is good, mood seems depressed Assessment & Plan Assessment/Plan (1) Leukocytosis: (2) Transaminitis: PLAN: Transaminitis possibly secondary to alcoholic hepatitis although I suspectthat there is some elements of chronic liver disease due to the fact that the ALT is greater than AST. That is not the classic alcoholic hepatitis pattern. Should check labs for chronic hepatitis such as ferritin, transferrin saturation, CPK, anti- smooth muscle antibody, antimitochondrial antibody, viral hepatitisand protein electrophoresis. (3) Pancreatitis: PLAN: Acute alcoholic pancreatitis complicated by thrombosis of the mesenteric vessels. Recommend IV fluids at 250 cc an hour. I am not sure if she is havingchest pain secondary to fluid administration. I will check troponins, EKG and chest x- ray. 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 There is arisk of transformation to hemorrhagic pancreatitis. I discussed this with the patient in detail and showed her the pictures of the large thrombosis involving the portal vein and other splenic vasculature. Recommend vascular consultation for possible thrombectomy. I would repeat the CT scan in approximately 3 days to see if there is any improvement in the thrombosis. (5) Abnormal magnetic resonance cholangiopancreatography (MRCP): PLAN: Findings from MRCP are as follows : common duct 0.68 cm which is mildly dilated.? This could be age-related. Other considerations would include distal common duct stricture, impacted occult a recently passed calculus.? Additional considerations would include a cold mass regional to the distal common duct. Since she has active pancreatitis at this time I do not want to make that worse. Once she is cell settle down we can do an ERCP at a later time. Charges/Coding Visit Charges Inpatient E&M: 42850 Subs Hosp L3 07/29/22 1730 <Electronically signed by Chandler Salamanca DO> Chandler Salamanca DO Cosigner Signature (if applicable): CC: ~ Signed [facility] Work Phone: [phone]) 830-198502-24-[address] Leonard [facility] July 29, 2022 12:02pm Note Date/Time July 29, 2022 11:45am [facility] Medical Records Department [address] [place] [address] Progress Note - Hospitalist 07/29/22 1143 MR#: [id number] Acct: [id number] Name: MELVA KERNS Rep #:[id number] : 1980 42 From: Jovanna Leonard DO PCP: Care Physician,No Primary Status :ADM IN Location: [place] [address] Reason for Visit Reason for Visit: Abdominal pain Subjective Subjective Patient states she is feeling a little bit better. Still utilizing quite a bit of Dilaudid for pain control. Pain still radiating to her back. Patient admitsshe is passing flatus. No bowel movement. I explained that she is high risk for development of an ileus so we will have to make sure she continues to have flatus. Objective Data Objective Data Vital Signs: Vital Signs Temp Pulse Resp BP Pulse Ox O2 Del Method O2 Flow Rate 98.0 F 114 H 20 H 144/93 H 94 Room Air 2 07/29/22 08:11 07/29/22 08:11 07/29/22 08:11 07/29/22 08:11 07/29/22 09:15 07/29/22 09:15 07/28/22 18:05 Oxygen Flow Rate (L/min) 2 Oxygen Delivery Method Room Air Weight: 61.689 kg Body Mass Index (BMI) 23.3 Intake & Output: Intake and Output for Last 24 Hours 07/27/22 07/28/22 07/29/22 23:59 23:59 23:59 Intake Total 3318.83 / 3318.83 3322.43 / 3322.43 Output Total 200 / 200 Balance 3318.83 / 3318.83 3122.43 / 3122.43 Lab / Micro Data Result Diagrams: 07/29/22 04:57 07/29/22 04:57 Labs: Laboratory Results - last 24 hr 07/28/22 17:45: Troponin I High Sens 7 07/28/22 19:32: APTT 44.7 H 07/29/22 01:10: APTT 50.3 H 07/29/22 04:57: WBC 13.9 H, RBC 4.60, Hgb 15.0, Hct 45.4, MCV 98.7, MCH 32.6 H, MCHC 33.0, RDW Std Deviation 49.4 H, RDW Coeff of Frankie 13.5, Plt Count 209, MPV 11.1, Immature Gran % (Auto) 0.600, Neut % (Auto) 85.9 H, Lymph % (Auto) 6.3 L, [place]igo % (Auto) 6.3, Eos % (Auto) 0.6, Baso % (Auto) 0.3, Absolute Neuts (auto) 11.9 H, Absolute Lymphs (auto) 0.88, Nucleated RBC % 0 07/29/22 04:57: Sodium 134 L, Potassium 3.0 L, Chloride 97 L, Carbon Dioxide 27.0, Anion Gap 10, BUN 3 L, Creatinine 0.46 L, Estim Creat Clear Calc 136.17, Est GFR (MDRD) Af Amer 190, Est GFR (MDRD) Non-Af 157, BUN/Creatinine Ratio 6.5 L, Glucose 118 H, Calcium 8.7, Phosphorus 2.8, Magnesium 1.3 L, Total Bilirubin 0.60, AST 40 H, ALT 52, Alkaline Phosphatase 127 H, Total Protein 7.5, Albumin 3.5, Globulin 4.0, Albumin/Globulin Ratio 0.9, TSH 2.20 07/29/22 04:57: Amylase 520 H, Lipase 4586 H 07/29/22 07:40: APTT 39.5 H Radiography Diagnostic Testing: Radiology Impression MRCP 07/28/22 10:13 IMPRESSION: Common duct 0.68 cm which is mildly dilated. This could be age-related. Other considerations would include distal common duct stricture, impacted occult a recently passed calculus. Additional considerations would include a cold mass regional to the distal common duct. Increased signal lesion upper pole left kidney 0.92 cm transverse which could represent hemorrhagic cyst, solid mass cannot be excluded. Given patient''s history of pancreatitis and left renal lesion recommendation is for CT without and with contrast if clinically warranted. Normal variant phrygian cap of the gallbladder. Electronically Signed: Rafael Dhaliwal MD, KINJAL at 13:30 EST , Chest X-Ray 07/28/22 18:05 IMPRESSION: No acute radiographic abnormalities. Electronically Signed: Xander Arora MD at 20:15 EST , Physical Exam Const alert, oriented x3 and well nourished Constitutional Narrative: Middle-aged white female who appears much older than stated age, sitting up in bed, appears ill and and somewhat uncomfortable but nontoxic General Appearance: cooperative HEENT normocephalic, head/scalp atraumatic and hearing grossly normal bilaterally HEENT Narrative: Mallampati is 2-3, dentition is fair, no thrush, mucous membranes are moist Resp normal respiratory effort, no retractions, no use of accessory muscles and No clear to auscultation bilaterally Resp Narrative: Diffusely diminished with scattered end expiratory wheezes with scattered rhonchi that improved with cough Auscultation: rhonchi and wheezes; Negative for rales Cardio regular rate, regular rhythm, S1 normal heart sound, S2 normal heart sound, no murmurs, no rub, no gallops and no clicks GI normal to inspection, nondistended, normoactive bowel sounds, soft to palpation and non-tender GI Narrative: Marked tenderness in upper abdomen, bowel sounds are hypoactive, no distention, soft Extremity no clubbing, cyanosis or edema Extremity Narrative: 2+ pedal pulses Neuro oriented x3, moves all extremities and no focal motor deficits Neuro Narrative: No sensory deficits Speech: speech normal Psych Psych Narrative: Affect is flat, eye contact is good, mood seems depressed Assessment & Plan Assessment/Plan (1) Pancreatitis: (2) Transaminitis: (3) Superior mesenteric vein thrombosis: (4) Hypokalemia: (5) Leukocytosis: (6) Nausea & vomiting: (7) Hypomagnesemia: PLAN: Plan Acute pancreatitis -Etiology is unclear at this time -Pattern of liver enzyme elevation is not consistent with alcoholic hepatitis -MRCP demonstrated a mildly dilated common duct at 0.68, increased signal in theupper pole of the left kidney -Continue n.p.o. -Continue aggressive hydration with LR at 250 cc/h -Renal function is good -As needed pain medication -Antiemetics as needed -GI is following--> lab ordered -? Need for ERCP with above abnormality on MRCP Portal and superior mesenteric vein thrombosis -hypercoag panel is pending -No family history or personal history of clotting -Continue heparin drip -Repeat CT a recommended in 3 days to see if there is any improvement in thrombosis -Plan to transition to oral agent once pancreas calms down and there is no clearneed for any intervention -Case discussed with both GI and vascular surgery -Per vascular surgery no need for surgical intervention or consultation -Discussed with GI Left kidney abnormality -CT recommended however I do not want to give her any contrast right now with her acute pancreatitis and potential for renal complications despite aggressive hydration -We will obtain ultrasound of the kidneys to further clarify Leukocytosis -Very mild -Suspect reactive -Trending down -Monitor closely Nausea and vomiting -Antiemetics as noted above -Likely related to acute pancreatitis Hypokalemia - patient was given 80 total mill equivalents yesterday -Potassium remains low -Repeat potassium IV bolus again today -Recheck in a.m. -Replace magnesium -Repeat BMP in a.m. Hypomagnesemia -4 g bolus -Repeat mag level in a.m. History of GERD -Hold omeprazole -Hold Carafate -IV Protonix 40 twice daily Hypertension -Hold amlodipine -Blood pressures are consistently fairly high -We will schedule enalaprilat 0.625 every 6 hours -Continue as needed hydralazine for systolic blood pressure greater than 160 Alcohol abuse -Patient drinks approximately 4 shots a day of vodka -Last drink was afternoon at 3 p.m. on 07/27/2022 -No current withdrawal issues -CIWA with as needed IV Ativan -May need more extensive medication for detox with phenobarbital depending on symptoms-monitor closely -IV thiamine 200 daily x3 days -IV folic acid 1 g daily -No current signs of acute withdrawal Tobacco abuse -Patient heavy smoker -Recommend tobacco cessation -Nicotine patch-21 mcg while hospitalized DVT prophylaxis -Full anticoagulation with heparin CODE STATUS -Full code Charges/Coding Visit Charges Inpatient E&M: 62256 Subs Hosp L2 07/29/22 1202 <Electronically signed by Jovanna Leonard DO> Cosigner Signature (if applicable): CC: ~ Signed [facility] Work Phone: 1(133) 712-298702-23-2023 Consult note Author Chandler Salamanca [facility] July 28, 2022 5:53pm Note Date/Time July 28, 2022 5:47pm [facility] Medical Records Department [address] [place] [address] Consultation - GI 07/28/22 1745 MR#: [id number] Acct: [id number] Name: MELVA KERNS Rep #:[id number] : 1980 42 From: Chandler Salamanca DO PCP: Care Physician,No Primary Status :ADM [place] [facility] [id number] HPI Consult Data Date of Consult: 07/28/22 HPI Narrative Reason for Consultation: pancreatitis HPI Narrative: MELVA KERNS, is a 42 F who presents with abdominal pain that began yesterday.? She has a past medical history of alcoholic hepatitis and alcoholic pancreatitis without history of cirrhosis. She was last in the hospital approximately 4 months ago with alcoholic pancreatitis. She drinks approximately 30 g of alcohol per day. In the ED she was discovered to have Total Bilirubin 0.90, Direct Bilirubin 0.29, AST 51 H, ALT 67 H, Alkaline Phosphatase 131 H, Total Protein 7.7, Albumin 3.8, Globulin 3.9, Lipase 9420 H. Patient states pain is over the upper abdomen.? Patient states it feels similarto prior episodes of pancreatitis.? Patient states it began rather suddenly.? Patient states it has been constant.? Patient describes it as stabbing and aching.? Patient states nothing makes it better nothing makes it worse.? Patientstates she started having some nausea and vomiting today.? Patient denies any hematemesis or coffee-ground emesis.? Patient denies any diarrhea, melena, or hematochezia.? Patient denies any urinary complaints.? Patient denies any feversor chills. She had a CT scan abdomen pelvis that had shown acute pancreatitis, with hepatomegaly and mild splenomegaly along with splenic varices. Also was seen was a large portal vein and splenic vein thrombosis. She was started on heparindrip along with IV fluids at 250 cc an hour. At this time she does complain of some chest pain. [facility] Medical History Alcohol abuse Pancreatitis Smoker Home Medications amlodipine 10 mg tablet 10 mg PO DAILY #30 tabs 02/22/22 [Rx Last Taken 07/28/22 03:00] omeprazole 40 mg capsule,delayed release 40 mg PO DAILY #30 caps 02/22/22 [Rx Last Taken 07/28/22 03:00] ondansetron 4 mg disintegrating tablet 4 mg PO Q8H PRN nausea and vomiting #30 tabs 02/22/22 [Rx Last Taken 07/28/22 03:00] sennosides 8.6 mg-docusate sodium 50 mg tablet (Stool Softener-Stimulant Laxative) 2 tab PO BID PRN constipation #60 tabs 02/22/22 [Rx Last Taken Unknown] ibuprofen 200 mg tablet (Motrin IB) 800 mg PO Q4H PRN Pain 07/28/22 [History Last Taken 07/28/22 06:30] sucralfate 100 mg/mL oral suspension (Carafate) 10 ml PO BID PRN GERD 07/28/22 [History Last Taken 07/24/22] Allergy/AdvReac Type Severity Reaction Status Date / Time No Known Allergies Allergy Verified 07/28/22 13:42 Family History no significant family his Surgical History H/O tubal ligation Social History (Updated 07/28/22 @ 10:[address] Jovanna Leonard DO) household members: significant other and children housing: house Smoking Status: Current every day smoker tobacco type: cigarettes alcohol intake: current details: Drinks approximately 4 shots of vodka a day and cranberry juice substance use type: does not use ROS Constitutional Constitutional: Reports anorexia; Denies change in weight, chills, fatigue, fever(s), malaise, night sweats, weakness or other Eyes Eyes: Denies blurry vision, change in eye color, change in vision, discharge from eye(s), double vision, erythema, eye pain, loss of vision or other ENT HEENT: Denies abnormal hearing, dysphagia, ear pain, epistaxis, headache(s), hearing loss, nasal congestion, nasal discharge, post nasal drip, sinus pressure, sore throat or other Cardiovascular Cardiovascular: Denies chest pain, claudication, dyspnea on exertion, edema, lightheadedness, orthopnea, palpitations, paroxysmal nocturnal dyspnea, rapid heart rate, syncope or other Respiratory/Chest Respiratory/Chest: Denies cough, dyspnea, excessive phlegm production, hemoptysis, productive cough, shortness of breath at rest, shortness of breath with exertion, wheezing or other Gastrointestinal Gastrointestinal: Reports abdominal pain, nausea and vomiting; Denies coffee ground emesis, constipation, diarrhea, dyspepsia, hematemesis, hematochezia, loose stools, melena or other Genitourinary Genitourinary: Denies burning urination, difficulty urinating, dysuria, hematuria, nocturia, urinary frequency, urinary hesitancy, urinary incontinence,urinary urgency or other Musculoskeletal Musculoskeletal: Reports back pain; Denies arthralgias, joint pain, joint stiffness, joint swelling, myalgias, neck pain or other Neurologic Neurologic: Denies abnormal gait, abnormal speech, confusion, disequilibrium, dizziness, focal weakness, headache(s), numbness, paresthesias, seizure-like activity, seizures, syncope, tingling, tremor(s) or other Psychiatric Psychiatric: Denies anxiety, depression, homicidal ideation, suicidal ideation or other Endocrine Endocrinology: Denies change in body appearance, cold intolerance, excessive sweating, heat intolerance, polydipsia, polyuria or other Hematologic/Lymphatic Hematologic/Lymphatic: Denies anemia, easy bleeding, easy bruising, lymphadenopathy or other Allergic/Immunologic Allergic/Immunologic: Denies rhinitis, hives, eczemia, asthma or other Physical Exam Const alert, oriented x3 and well nourished General Appearance: cooperative HEENT normocephalic, head/scalp atraumatic and hearing grossly normal bilaterally HEENT Narrative: Dentition is poor, Mallampati is 2, no thrush, mucous membranes are dry Eyes PERRL, EOMs intact bilaterally and conjunctivae normal Eyes Narrative: No scleral icterus Neck no lymphadenopathy, supple, no JVD and no carotid bruits Neck Narrative: Trachea midline, no thyroid enlargement Resp Resp Narrative: Diffusely diminished with few scattered end expiratory wheezes, no rhonchi or rales Auscultation: wheezes; Negative for rales or rhonchi Cardio regular rhythm, S1 normal heart sound, S2 normal heart sound, no murmurs, no rub, no gallops and no clicks Cardio Narrative: Mild tachycardia GI normal to inspection, nondistended, normoactive bowel sounds, soft to palpation and non-tender GI Narrative: Marked tenderness in upper abdomen, bowel sounds are hypoactive, no distention, soft Extremity no clubbing, cyanosis or edema Extremity Narrative: 2+ pedal pulses Skin no rashes or lesions noted, no wounds, skin turgor normal, no jaundice, no petechiae and no mottling Neuro oriented x3, CN's II-XII intact bilaterally, moves all extremities and no focal motor deficits Neuro Narrative: No sensory deficits Speech: speech normal Psych Psych Narrative: Affect is flat, eye contact is good, mood seems depressed Lab / Micro Data Result Diagrams: 07/28/22 06:20 07/28/22 06:20 Labs: Laboratory Results - last 24 hr 07/28/22 06:20: WBC 11.9 H, RBC 4.55, Hgb 14.9, Hct 44.3, MCV 97.4, MCH 32.7 H, MCHC 33.6, RDW Std Deviation 49.1 H, RDW Coeff of Frankie 13.5, Plt Count 267, MPV 10.1, Immature Gran % (Auto) 0.300, Neut % (Auto) 82.5 H, Lymph % (Auto) 9.9 L, Vigo % (Auto) 5.6, Eos % (Auto) 1.1, Baso % (Auto) 0.6, Absolute Neuts (auto) 9.8 H, Absolute Lymphs (auto) 1.18, Nucleated RBC % 0 07/28/22 06:20: Sodium 137, Potassium 2.8 L, Chloride 99, Carbon Dioxide 28.0, Anion Gap 10, BUN 11, Creatinine 0.59, Estim Creat Clear Calc 106.17, Est GFR (MDRD) Af Amer 144, Est GFR (MDRD) Non-Af 119, BUN/Creatinine Ratio 18.7, Glucose 138 H, Calcium 9.2 07/28/22 06:20: Serum , Qual NEGATIVE 07/28/22 06:20: 07/28/22 06:55: Urine Color Yellow, Urine Clarity Cloudy, Urine pH 6.0, Ur Specific [place] 1.020, Urine Protein 100 H, Urine Glucose (UA) Normal, Urine Ketones 150 A*, Urine Occult Blood 10 H, Urine Nitrite Positive H, Urine Bilirubin 1 H, Urine Urobilinogen 1 H, Ur Leukocyte Esterase 25 H, Urine RBC 0 SEEN, Urine WBC 0-5 SEEN, Ur Squamous Epith Cells 5-10 SEEN, Urine Bacteria 4+, Urine Mucus 0 SEEN 07/28/22 11:15: PT 13.0, INR 1.0, APTT 27.0 Radiology Impression Abdomen/Pelvis CT 07/28/22 07:31 IMPRESSION: Findings in keeping with acute pancreatitis as described. Focal nonocclusive thrombus at the junction of the superior mesenteric vein and portal vein as described. Hepatomegaly and fatty infiltration of the liver. 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 N.B. : The above Results were Read Back by Christos Krause MD to Sal Cottrell DO, and understanding confirmed on 07/28/2022 10:02:19 (ET). Electronically Signed: Christos Krause MD at 10:03 EST , ADDENDUM: 07/28/22 1010 IMPRESSION: Findings in keeping with acute pancreatitis as described. Focal nonocclusive thrombus at the junction of the superior mesenteric vein and portal vein as described. Hepatomegaly and fatty infiltration of the liver. 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 N.B. : The above Results were Read Back by Christos Krause MD to Sal Cottrell DO, and understanding confirmed on 07/28/2022 10:02:19 (ET). Electronically Signed: Christos Krause MD at 10:03 EST , MRCP 07/28/22 10:13 IMPRESSION: Common duct 0.68 cm which is mildly dilated. This could be age-related. Other considerations would include distal common duct stricture, impacted occult a recently passed calculus. Additional considerations would include a cold mass regional to the distal common duct. Increased signal lesion upper pole left kidney 0.92 cm transverse which could represent hemorrhagic cyst, solid mass cannot be excluded. Given patient''s history of pancreatitis and left renal lesion recommendation is for CT without and with contrast if clinically warranted. Normal variant phrygian cap of the gallbladder. Electronically Signed: Rafael Dhaliwal MD, KINJAL at 13:30 EST , Assessment & Plan Assessment/Plan (1) Leukocytosis: (2) Transaminitis: PLAN: Transaminitis possibly secondary to alcoholic hepatitis although I suspectthat there is some elements of chronic liver disease due to the fact that the ALT is greater than AST. That is not the classic alcoholic hepatitis pattern. Should check labs for chronic hepatitis such as ferritin, transferrin saturation, CPK, anti- smooth muscle antibody, antimitochondrial antibody, viral hepatitis and protein electrophoresis. (3) Pancreatitis: PLAN: Acute alcoholic pancreatitis complicated by thrombosis of the mesenteric vessels. Recommend IV fluids at 250 cc an hour. I am not sure if she is havingchest pain secondary to fluid administration. I will check troponins, EKG and chest x- ray. 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 There is arisk of transformation to hemorrhagic pancreatitis. I discussed this with the patient in detail and showed her the pictures of the large thrombosis involving the portal vein and other splenic vasculature. Recommend vascular consultation for possible thrombectomy. I would repeat the CT scan in approximately 3 days to see if there is any improvement in the thrombosis. Charges/Coding Visit Charges Inpatient E&M: 02573 Init Hosp L3 07/28/22 8666 <Electronically signed by Chandler Salamanca DO> Cosigner Signature (if applicable): CC: No Primary Care Physician~ Signed [facility] Work Phone: 1(280) 756-961402-23-[address] Cottrell [facility] July 28, 2022 3:23pm Note Date/Time July 28, 2022 7:30am [facility] Medical Records Department [address] [place] [address] Emergency Department Summary 07/28/22 MR#: [id number] Acct: [id number] Name: MELVA KERNS Rep #:[id number] : 1980 42 From: Sal Small PCP: Care Physician,No Primary Status :ADM IN Location: [place] [address] HPI HPI - GI History of Present Illness Chief Complaint: Abd Pain Informant: patient Abdominal Pain/Flank Pain Onset: Yesterday Context: Sudden Onset Timing: Continuous Quality: Aching and Stabbing Location: Epigastric, RUQ and LUQ Worsened by: Nothing Relieved by: Nothing Nausea/Vomiting/Emesis GI Symptom: Positive for Nausea and Vomiting Onset: Today Quality: Positive for Nonbilious; Negative for Blood streaks, Coffee ground or Hematemesis Diarrhea/Melena/Hematochezia GI Symptom: Negative for Diarrhea, Melena or Hematochezia Associated Symptoms Associated Symptoms: Negative for Dysuria, Frequency or Hematuria Narrative Narrative: Presents with abdominal pain that began yesterday. Patient states pain is over the upper abdomen. Patient states it feels similar to prior episodes of pancreatitis. Patient states it began rather suddenly. Patient states it has been constant. Patient describes it as stabbing and aching. Patient states nothing makes it better nothing makes it worse. Patient states she started having some nausea and vomiting today. Patient denies any hematemesis or coffee-ground emesis. Patient denies any diarrhea, melena, or hematochezia. Patient denies any urinary complaints. Patient denies any fevers or chills. PFSH PFSH Medical History Alcohol abuse Pancreatitis Smoker Home Medications amlodipine 10 mg tablet 10 mg PO DAILY #30 tabs 02/22/22 [Rx Last Taken 07/28/22 03:00] omeprazole 40 mg capsule,delayed release 40 mg PO DAILY #30 caps 02/22/22 [Rx Last Taken 07/28/22 03:00] ondansetron 4 mg disintegrating tablet 4 mg PO Q8H PRN nausea and vomiting #30 tabs 02/22/22 [Rx Last Taken 07/28/22 03:00] sennosides 8.6 mg-docusate sodium 50 mg tablet (Stool Softener-Stimulant Laxative) 2 tab PO BID PRN constipation #60 tabs 02/22/22 [Rx Last Taken Unknown] ibuprofen 200 mg tablet (Motrin IB) 800 mg PO Q4H PRN Pain 07/28/22 [History Last Taken 07/28/22 06:30] sucralfate 100 mg/mL oral suspension (Carafate) 10 ml PO BID PRN GERD 07/28/22 [History Last Taken 07/24/22] Allergy/AdvReac Type Severity Reaction Status Date / Time No Known Allergies Allergy Verified 07/28/22 06:08 Surgical History H/O tubal ligation Social History household members: family and children housing: house Smoking Status: Current every day smoker tobacco type: cigarettes alcohol intake: current alcohol intake frequency: 0-2 drinks per day substance use type: does not use ROS ROS ED Constitutional Constitutional ED: Denies chills or fever(s) Eyes Eyes: Denies blurry vision or change in vision ENT ENT ED: Denies rhinorrhea or sore throat Cardiovascular Cardiovascular: Reports chest pain; Denies palpitations Respiratory/Chest Respiratory/Chest: Denies cough or dyspnea Gastrointestinal Gastrointestinal: Reports abdominal pain, nausea and vomiting Genitourinary Genitourinary ED: Denies dysuria or hematuria Musculoskeletal Musculoskeletal: Reports back pain; Denies neck pain Integumentary Denies abscess or rash Neurologic Neurologic: Denies headache(s) or weakness Allergic/Immunologic Allergic/Immunologic ED: Denies mouth swelling or urticaria EXAM Physical Exam Const Vital Signs: 07/28/22 06:06 07/28/22 06:45 Temperature 97.0 F L Temperature Source Temporal Pulse Rate 106 H Respiratory Rate 16 Blood Pressure 184/120 H Blood Pressure Mean 141 Pulse Ox 99 99 Oxygen Delivery Method Room Air Room Air Positive well nourished and well developed General Appearance ED: well developed HEENT Reports moist mucous membranes Neck supple and no JVD Resp normal respiratory effort and clear to auscultation bilaterally Cardio regular rate, regular rhythm and no murmurs GI normal to inspection, nondistended, normoactive bowel sounds GI Narrative: There is diffuse tenderness over the entire abdomen but it is worse over the epigastric and upper abdomen. There is no rebound or guarding noted. Palpation: soft and tender epigastric, LLQ, RLQ, LUQ, RUQ, periumbilical and suprapubic; Negative for guarding or rebound tenderness present Extremity normal to inspection General Extremety ED: Negative for edema or tenderness General Extremity: Negative for edema Neuro oriented x3, CN's II-XII intact bilaterally and no sensory deficits noted Sensorium / Orientation: alert Motor Exam: strength 5/5 throughout Psych mental status grossly normal Skin no rashes or lesions noted MDM MDM MDM Narrative Medical decision making narrative: Differential diagnosis includes pancreatitis, bowel obstruction, perforation, gastroenteritis, colitis, urinary tract infection, and pyelonephritis. CBC willbe obtained to assess for leukocytosis and anemia. Comprehensive metabolic profile will be obtained to assess for electrolyte abnormality, renal function, and hepatic function. Lipase will be obtained to assess for pancreatitis. CT scan of the abdomen pelvis will be obtained to assess for bowel obstruction, perforation, and colitis. Urinalysis will be obtained to assess for urinary tract infection. Serum hCG will be obtained to assess for . Lab Data Attestation: I reviewed the patient's lab results. Lab results narrative: CBC was reviewed. There is a mild leukocytosis of 11.9. Basic metabolic profile was reviewed. There is mild hypokalemia of 2.8. Glucose was 138. Serum hCG was reviewed and was negative. Lipase was reviewed and was elevated at 9420. Hepatic profile was reviewed and showed a mildly elevated alkaline phosphatase of 131, AST was slightly elevated at 51, and ALT was slightly elevated at 67. Total bilirubin and direct bilirubin were within normal limits. Urinalysis was reviewed and showed a leukocyte esterase of 25. Urine ketones were 150. There were positive urine nitrites. There were 0-5 white blood cellsand 0 red blood cells. There is 5-10 epithelial cells. There is 4+ bacteria. Urine culture was ordered. Labs: Laboratory Results - last 24 hr 07/28/22 07/28/22 07/28/22 06:20 06:20 06:20 WBC 11.9 H RBC 4.55 Hgb 14.9 Hct 44.3 MCV 97.4 MCH 32.7 H MCHC 33.6 RDW Std Deviation 49.1 H RDW Coeff of Frankie 13.5 Plt Count 267 MPV 10.1 Immature Gran % (Auto) 0.300 Neut % (Auto) 82.5 H Lymph % (Auto) 9.9 L Vigo % (Auto) 5.6 Eos % (Auto) 1.1 Baso % (Auto) 0.6 Absolute Neuts (auto) 9.8 H Absolute Lymphs (auto) 1.18 Nucleated RBC % 0 Sodium 137 Potassium 2.8 L Chloride 99 Carbon Dioxide 28.0 Anion Gap 10 BUN 11 Creatinine 0.59 Estim Creat Clear Calc 106.17 Est GFR (MDRD) Af Amer 144 Est GFR (MDRD) Non-Af 119 BUN/Creatinine Ratio 18.7 Glucose 138 H Calcium 9.2 Total Bilirubin Direct Bilirubin AST ALT Alkaline Phosphatase Total Protein Albumin Globulin Lipase Serum , Qual NEGATIVE Urine Color Urine Clarity Urine pH Ur Specific [place] Urine Protein Urine Glucose (UA) Urine Ketones Urine Occult Blood Urine Nitrite Urine Bilirubin Urine Urobilinogen Ur Leukocyte Esterase Urine RBC Urine WBC Ur Squamous Epith Cells Urine Bacteria Urine Mucus 07/28/22 07/28/22 06:20 06:55 WBC RBC Hgb Hct MCV MCH MCHC RDW Std Deviation RDW Coeff of Frankie Plt Count MPV Immature Gran % (Auto) Neut % (Auto) Lymph % (Auto) Vigo % (Auto) Eos % (Auto) Baso % (Auto) Absolute Neuts (auto) Absolute Lymphs (auto) Nucleated RBC % Sodium Potassium Chloride Carbon Dioxide Anion Gap BUN Creatinine Estim Creat Clear Calc Est GFR (MDRD) Af Amer Est GFR (MDRD) Non-Af BUN/Creatinine Ratio Glucose Calcium Total Bilirubin 0.90 Direct Bilirubin 0.29 AST 51 H ALT 67 H Alkaline Phosphatase 131 H Total Protein 7.7 Albumin 3.8 Globulin 3.9 Lipase 9420 H Serum , Qual Urine Color Yellow Urine Clarity Cloudy Urine pH 6.0 Ur Specific [place] 1.020 Urine Protein 100 H Urine Glucose (UA) Normal Urine Ketones 150 A* Urine Occult Blood 10 H Urine Nitrite Positive H Urine Bilirubin 1 H Urine Urobilinogen 1 H Ur Leukocyte Esterase 25 H Urine RBC 0 SEEN Urine WBC 0-5 SEEN Ur Squamous Epith Cells 5-10 SEEN Urine Bacteria 4+ Urine Mucus 0 SEEN Radiography Diagnostic Testing: Clinical Impression(s) from Imaging Studies Abdomen/Pelvis CT 07/28/22 07:31 IMPRESSION: Findings in keeping with acute pancreatitis as described. Focal nonocclusive thrombus at the junction of the superior mesenteric vein and portal vein as described. Hepatomegaly and fatty infiltration of the liver. 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 N.B. : The above Results were Read Back by Christos Krause MD to Sal Cottrell DO, and understanding confirmed on 07/28/2022 10:02:19 (ET). Electronically Signed: Christos Krause MD at 10:03 EST , ADDENDUM: 07/28/22 1010 IMPRESSION: Findings in keeping with acute pancreatitis as described. Focal nonocclusive thrombus at the junction of the superior mesenteric vein and portal vein as described. Hepatomegaly and fatty infiltration of the liver. 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 N.B. : The above Results were Read Back by Christos Krause MD to Sal Cottrell DO, and understanding confirmed on 07/28/2022 10:02:19 (ET). Electronically Signed: Christos Krause MD at 10:03 EST , CT scan of the abdomen and pelvis was obtained. There is evidence of acute pancreatitis. There is also hepatomegaly and fatty infiltration of the liver. There are varices seen in the splenic hilum. There is also a nonocclusive thrombus at the junction of the superior mesenteric vein and portal vein. This was interpreted by the radiologist and was also independently reviewed by myself. Treatment and Re-Evaluation Narrative: Patient was given IV fluids, morphine, and Zofran. Patient was given a dose of oral potassium. Patient was given a repeat dose of morphine. Case was discussed with the hospitalist. She will admit the patient to her service. Patient understood and was agreeable with the plan. All questions were answered. Discharge Plan Triage Chief Complaint: Abd Pain ED Provider: Sal Cottrell Dx/Rx/DC Orders Clinical Impression: Acute alcoholic pancreatitis, Superior mesenteric vein thrombosis, Alcohol abuse Prescriptions: No Action sennosides-docusate sodium [Stool Softener-Stimulant Laxat] 8.6-50 mg Tablet 2 tab PO BID PRN (Reason: constipation) Qty: 60 0RF amlodipine 10 mg Tablet 10 mg PO DAILY Qty: 30 0RF Rx Instructions: Hold for SBP less than 130 mmHg sucralfate [Carafate] 100 mg/mL suspension 10 ml PO BID 30 Days Qty: 600 0RF omeprazole 40 mg capsule,delayed release(DR/EC) 40 mg PO DAILY Qty: 30 1RF ondansetron 4 mg tablet,disintegrating 4 mg PO Q8H PRN (Reason: nausea and vomiting) Qty: 30 0RF Primary Care Provider: Care Physician,No Primary Referrals: Care Physician,No Primary [Primary Care Provider] - Disposition Disposition: Acute Care Hospital [facility] What to do if you have Problems For any increased pain, shortness of breath, bleeding, nausea or vomiting, chestpain, or any unexpected problems, contact your Primary Care Provider. Call [facility] ([phone]) or report to the closest Emergency Room. Call 911 if necessary. 07/28/22 1523 <Electronically signed by Sal Cottrell DO> Cosigner Signature (if applicable): CC: No Primary Care Physician ~ Signed [facility] Work Phone: 1(260) 499-689702-23-2023 History and physical note Author Dr. Leonard [facility] July 28, 2022 10:58am Note Date/Time July 28, 2022 10:58am [facility] Medical Records Department [address] [place] [address] H&P Exam - Hospitalist 07/28/22 1041 MR#: [id number] Acct: [id number] Name: MELVA KERNS Rep #:[id number] : 1980 42 From: Jovanna Leonard DO PCP: Care Physician,No Primary Status :ADM IN Location: [place] [address]-1 HPI - General General Date of Admission: 07/28/22 Date of Service: 07/28/22 Chief Complaint: Abdominal pain/nausea/vomiting HPI Ayan KERNS, is a 42 F who presented to the emergency department was [facility] on 07/28/2022 with a chief complaint of upper abdominal pain that began last evening. The patient reported it felt similar to her previous episodes of pancreatitis. She states she has had pancreatitis previously that had been associated with alcohol intake. She does admit to still drinking approximately 2 shots of vodka and cranberry juice twice daily. She also admits to being a heavy smoker. She states the pain started last evening and has worsened since that point time. She now has associated nausea and vomiting has not been able to eat or drink much. She denies any bowel changes and reports normal stool color. She had no fever or chills. No chest pain or shortness of breath. Vital signs on presentation demonstrated temperature of 97, heart rate 106, blood pressure 184/120, respiratory rate 16, oxygen saturation was 99% on room air. CBC showed a leukocytosis that was mild at 11.9 with a mild left shift. Chemistry panel showed hypokalemia with potassium of 2.8 renal function was normal. Liver functions are elevated with an AST of 51 and ALT of 67 along withan alk phos of 131. Her lipase was 9420. A serum test was negative. Her UA does not show infection however does demonstrate some dehydration and shehas markedly elevated ketones at 150. CT of the abdomen pelvis was performed and demonstrated findings consistent with acute pancreatitis as well as a focal nonocclusive thrombus at the junction of the superior mesenteric vein and the portal vein, varices in the splenic hilum and hepatomegaly with fatty infiltration of the liver. In the emergency department the patient was placed on aggressive IV fluids, given pain medications and antiemetics and request for admission was made. [facility] Medical History Alcohol abuse Pancreatitis Smoker Home Medications amlodipine 10 mg tablet 10 mg PO DAILY #30 tabs 02/22/22 [Rx Last Taken 07/28/22 03:00] omeprazole 40 mg capsule,delayed release 40 mg PO DAILY #30 caps 02/22/22 [Rx Last Taken 07/28/22 03:00] ondansetron 4 mg disintegrating tablet 4 mg PO Q8H PRN nausea and vomiting #30 tabs 02/22/22 [Rx Last Taken 07/28/22 03:00] sennosides 8.6 mg-docusate sodium 50 mg tablet (Stool Softener-Stimulant Laxative) 2 tab PO BID PRN constipation #60 tabs 02/22/22 [Rx Last Taken Unknown] ibuprofen 200 mg tablet (Motrin IB) 800 mg PO Q4H PRN Pain 07/28/22 [History Last Taken 07/28/22 06:30] sucralfate 100 mg/mL oral suspension (Carafate) 10 ml PO BID PRN GERD 07/28/22 [History Last Taken 07/24/22] Allergy/AdvReac Type Severity Reaction Status Date / Time No Known Allergies Allergy Verified 07/28/22 06:08 no significant family history Surgical History H/O tubal ligation Social History (Updated 07/28/22 @ 10:[address] Jovanna Leonard DO) household members: significant other and children housing: house Smoking Status: Current every day smoker tobacco type: cigarettes alcohol intake: current details: Drinks approximately 4 shots of vodka a day and cranberry juice substance use type: does not use ROS Constitutional Constitutional: Reports anorexia; Denies change in weight, chills, fatigue, fever(s), malaise, night sweats, weakness or other Eyes Eyes: Denies blurry vision, change in eye color, change in vision, discharge from eye(s), double vision, erythema, eye pain, loss of vision or other ENT HEENT: Denies abnormal hearing, dysphagia, ear pain, epistaxis, headache(s), hearing loss, nasal congestion, nasal discharge, post nasal drip, sinus pressure, sore throat or other Cardiovascular Cardiovascular: Denies chest pain, claudication, dyspnea on exertion, edema, lightheadedness, orthopnea, palpitations, paroxysmal nocturnal dyspnea, rapid heart rate, syncope or other Respiratory/Chest Respiratory/Chest: Denies cough, dyspnea, excessive phlegm production, hemoptysis, productive cough, shortness of breath at rest, shortness of breath with exertion, wheezing or other Gastrointestinal Gastrointestinal: Reports abdominal pain, nausea and vomiting; Denies coffee ground emesis, constipation, diarrhea, dyspepsia, hematemesis, hematochezia, loose stools, melena or other Genitourinary Genitourinary: Denies burning urination, difficulty urinating, dysuria, hematuria, nocturia, urinary frequency, urinary hesitancy, urinary incontinence, urinary urgency or other Musculoskeletal Musculoskeletal: Reports back pain; Denies arthralgias, joint pain, joint stiffness, joint swelling, myalgias, neck pain or other Neurologic Neurologic: Denies abnormal gait, abnormal speech, confusion, disequilibrium, dizziness, focal weakness, headache(s), numbness, paresthesias, seizure-like activity, seizures, syncope, tingling, tremor(s) or other Psychiatric Psychiatric: Denies anxiety, depression, homicidal ideation, suicidal ideation or other Endocrine Endocrinology: Denies change in body appearance, cold intolerance, excessive sweating, heat intolerance, polydipsia, polyuria or other Hematologic/Lymphatic Hematologic/Lymphatic: Denies anemia, easy bleeding, easy bruising, lymphadenopathy or other Allergic/Immunologic Allergic/Immunologic: Denies rhinitis, hives, eczemia, asthma or other Vital Signs Vital Signs Vital Signs: 07/28/22 06:06 07/28/22 06:45 07/28/22 10:30 Temperature 97.0 F L 98 F Temperature Source Temporal Temporal Pulse Rate 106 H 93 Respiratory Rate 16 14 Blood Pressure 184/120 H 191/111 H Blood Pressure Mean 141 137 Pulse Ox 99 99 97 Oxygen Delivery Method Room Air Room Air Room Air 07/28/22 10:31 Temperature Temperature Source Pulse Rate Respiratory Rate Blood Pressure 191/115 H Blood Pressure Mean 140 Pulse Ox Oxygen Delivery Method Weight Weight: 60.5 kg Body Mass Index (BMI) 22.8 Physical Exam Const alert, oriented x3 and well nourished Constitutional Narrative: Middle-aged white female who appears much older than stated age, lying in bed, appears uncomfortable but nontoxic, daughter at bedside General Appearance: cooperative HEENT normocephalic, head/scalp atraumatic and hearing grossly normal bilaterally HEENT Narrative: Dentition is poor, Mallampati is 2, no thrush, mucous membranes are dry Eyes PERRL, EOMs intact bilaterally and conjunctivae normal Eyes Narrative: No scleral icterus Neck no lymphadenopathy, supple, no JVD and no carotid bruits Neck Narrative: Trachea midline, no thyroid enlargement Resp Resp Narrative: Diffusely diminished with few scattered end expiratory wheezes, no rhonchi or rales Auscultation: wheezes; Negative for rales or rhonchi Cardio regular rhythm, S1 normal heart sound, S2 normal heart sound, no murmurs, no rub, no gallops and no clicks Cardio Narrative: Mild tachycardia GI normal to inspection, nondistended, normoactive bowel sounds, soft to palpation and non-tender GI Narrative: Marked tenderness in upper abdomen, bowel sounds are hypoactive, no distention, soft Extremity no clubbing, cyanosis or edema Extremity Narrative: 2+ pedal pulses Skin no rashes or lesions noted, no wounds, skin turgor normal, no jaundice, no petechiae and no mottling Neuro oriented x3, CN's II-XII intact bilaterally, moves all extremities and no focal motor deficits Neuro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 applicable): CC: No Primary Care Physician ~ Signed [facility] Work Phone: Discharge summary Author Sal Cassidy [facility] January 04, 2023 2:22pm Note Date/Time January 04, 2023 2:1 0pm [facility] Medical Records Department [address] [place] [address] Instructions for Home/Discharge Instructions 01/04/23 1408 MR#: [id number] Acct: [id number] Name: MELVA KERNS Rep #:[id number] : 1980 42 From: Sal Cassidy DO PCP: Care Physician,No Primary Status :ADM IN Discharge Instructions Diet Discharge Diet: No restrictions Follow Up Care Test Results: Test results from this visit will be discussed in further detail at your follow- up appointment, if applicable. Discharge Plan Admission Admit Date/Time: 01/03/23 13:33 Primary Reason for Your Visit: biliary stricture. Attending Provider: Sal Cassidy Primary Care Provider: Care Physician,No Primary Consulting Providers: Caty Flynn; Bisi Alas Instructions Additional Instructions / Restrictions: You had a biliary duct stricture. Dr. Salamanca has recommended you follow up with gastroenterology up in [place] for further evaluation. Discharge Orders/Prescriptions Prescriptions: New dicyclomine 20 mg tablet 20 mg PO TID PRN (Reason: abdominal pain) Qty: 20 0RF hydromorphone 2 mg tablet 2 mg PO Q4H PRN (Reason: pain) 3 Days Qty: 18 0RF Continued enoxaparin [Lovenox] 100 mg/mL syringe 60 mg subcut Q24H acetaminophen [Acetaminophen Extra Strength] 500 mg tablet 500 mg PO Q6H PRN (Reason: pain) sennosides-docusate sodium [Stool Softener-Stimulant Laxat] 8.6-50 mg Tablet 2 tab PO BID PRN (Reason: constipation) Creon 24,000-76,000 -120,000 unit capsule,delayed release(DR/EC) 1 cap PO TID lisinopril 20 mg Tablet 20 mg PO DAILY Qty: 30 0RF amlodipine 5 mg Tablet 5 mg PO DAILY Qty: 30 0RF ondansetron 4 mg tablet,disintegrating 4 mg PO Q8H PRN PRN (Reason: Nausea) Qty: 10 0RF omeprazole 20 mg capsule,delayed release(DR/EC) 20 mg PO DAILY Qty: 30 2RF Referrals / Follow Up: [facility] [Provider Group] - Within 2 Weeks Care Physician,No Primary [Primary Care Provider] - Disposition Disposition (needs filled in before D/C Order can be placed): Against Medical Advice 01/04/23 1422<Electronically signed by Sla Cassidy DO>Sal Cassidy DO CC: Dr. Caty Flynn MD; Dr. Bisi Alas MD; No Primary Care Physician ~ Signed [facility] Work Phone: Discharge summary Author Sal Cassidy [facility] January 04, 2023 2:26pm Note Date/Time January 04, 2023 2:2 7pm [facility] Medical Records Department [address] [place] [address] Discharge Summary 01/04/23 1422 MR#: [id number] Acct: [id number] Name: MELVA KERNS Rep #:[id number] : 1980 42 From: Sal Cassidy DO PCP: Care Physician,No Primary Status :DIS IN [place] [facility] [id number] Providers Date of Admission: 01/03/23 Primary Care Physician: No Primary Care Phys Consultations 01/02/23 07:19 Consult: Gastroenterology Routine Consulting Provider: [facility] Reason for Consult: Recurrent abd pain, recent CBD stent EMERGENT Consult: No MD Notified: Yes Date Notified: 01/02/23 Time Notified: 06:17 Method of Notification: ED Physician Initiated 01/02/23 09:41 Consult: General Surgery Routine Consulting Provider: Bisi Alas Reason for Consult: choledocholithiasis EMERGENT Consult: No MD Notified: Yes Date Notified: 01/02/23 Time Notified: 09:41 Method of Notification: Text Reason For Visit: ABDOMINAL PAIN Diagnosis Discharge Diagnosis (1) Abdominal pain: Status: Acute Code(s): R10.9 - Unspecified abdominal pain Qualifiers: Abdominal location: right upper quadrant Qualified Code(s): R10.11 - Right upper quadrant pain Plan: 2/2 biliary sludge Recurrent abdominal pain, worsening with recent choledocholithiasis requiring stent placement: Data: * Recent MRCP with concern for worsening mass effect of the distal common bile duct with increasing biliary dilatation with noted nodular thickening of the ampulla * follow-up ERCP with removal of common bile duct stones with biliary sphincterotomy with dilatation of the common bile duct and temporary stent placement * CT showed Dilated common bile duct measuring 1.5 cm in diameter, increased as compared to 12/17/2022 CT. Common bile duct stent appears stable. Newly visualized intrahepatic duct dilation and pneumobilia. Findings are concerning for a worsening distal common duct obstruction. Distended gallbladder with no evidence of cholecystitis. Splenic varices likely representing portal venous hypertension. GI consulted. ERCP 01/03 biliary sphincterotomy performed with biliary tree was swept and sludge removed. General surgery consult. No plans for cholecystectomy at this time. Continue IVF, pain control and antiemetics. 01/04: abdominal pain worse. Clinically appears stable. DW pt about addressing constipation. If has a decent BM and still has abdominal pain, will check a CT. Pt agreable. Pt was seen by Dr. Salamanca who advised discharge and follow up with gastroenterology in [place]. Pt informed nursing that she did not any oxygocode, but just IV hydromorphone, but wanted to be discharged. I discussed with Dr. Salamanca who saw and felt that she could go home as she has been eating and up andwalking in her room. Pt was prescribe PRN hydromorphone and Bentyl. Before I could finish the discharge paperwork, she left AMA. Plan Chronic complicating conditions: * Hx EtOH Abuse with history of pancreatitis and alcoholic hepatitis: Patient prior with routine consumption of 4 vodka type drinks daily, EtOH level currently unremarkable and notes sober x 2 weeks. Encouraged continued sobriety. MVI, thiamine and folic acid. Case management consulted. * Portal vein thrombosis: Following w/ Dr. Urena, from most recent records had been on lovenox 90 mg daily with 12/01/22 CTA with patent portal vein thus lovenox decreased to 60 mg daily. * Hypertension: Continue home regimen including lisinopril, amlodipine, PRN hydralazine. * Hyperlipidemia: Not on regimen, given chronic issues with alcoholic hepatitis deferred. * Tobacco Abuse: Encouraged cessation, inpatient consultation per RT, NR if desired. * GERD: Continue patient on PPI. DVT prophylaxis: Continue lovenox 60 mg SC daily. Medications at Discharge Home Medications omeprazole 20 mg capsule,delayed release 20 mg PO DAILY ACIF REFLUX #30 caps 10/26/22 acetaminophen 500 mg tablet (Acetaminophen Extra Strength) 500 mg PO Q6H PRN pain 12/14/22 [id number] 24,000-76,000-120,000 unit capsule,delayed rel (Creon) 1cap PO TID 12/14/22 sennosides 8.6 mg-docusate sodium 50 mg tablet (Stool Softener-Stimulant Laxative) 2 tab PO BID PRN constipation 12/14/22 amlodipine 5 mg tablet 5 mg PO DAILY #30 tabs 12/21/22 lisinopril 20 mg tablet 20 mg PO DAILY #30 tabs 12/21/22 enoxaparin 100 mg/mL subcutaneous syringe (Lovenox) 60 mg subcut Q24H 12/29/22 ondansetron 4 mg disintegrating tablet 4 mg PO Q8H PRN PRN Nausea #10 tabs 12/29/22 dicyclomine 20 mg tablet 20 mg PO TID PRN abdominal pain #20 tabs 01/04/23 hydromorphone 2 mg tablet 2 mg PO Q4H PRN pain 3 days #18 tabs 01/04/23 Hospital Course Operations None Procedures - (ERCP) Summary of Care Provided Minutes Spent on Discharge: 45 Weight / BMI Weight Weight: 57.1 kg Body Mass Index (BMI) 21.4 ABG / Lab / Microbiology Data 01/04/23 05:30 01/04/23 05:30 Laboratory: Laboratory Results - last 24 hr 01/04/23 05:30: WBC 4.7, RBC 3.36 L, Hgb 11.2 L, Hct 33.4 L, MCV 99.4 H, MCH 33.3 H, MCHC 33.5 D, RDW Std Deviation 48.1 H, RDW Coeff of Frankie 13.2, Plt [id number], MPV 10.2, Immature Gran % (Auto) 0.400, Neut % (Auto) 78.6 H, Lymph % (Auto) 17.8 L, [place] % (Auto) 2.8, Eos % (Auto) 0.0, Baso % (Auto) 0.4, Absolute Neuts (auto) 3.7, Absolute Lymphs (auto) 0.83, Nucleated RBC % 0, Sodium 138, Potassium 3.8, Chloride 109 H, Carbon Dioxide 25.0, Anion Gap 4 L, BUN 8, Creatinine 0.64, Estim Creat Clear Calc 97.87, Est GFR (MDRD) Af Amer 129, Est GFR (MDRD) Non-Af 106, BUN/Creatinine Ratio 12.4, Glucose 231 H, Calcium 8.5, Total Bilirubin 0.20, AST 19, ALT 24, Alkaline Phosphatase 126 H, Total Protein 6.0 L, Albumin 2.5 L, Globulin 3.5, Albumin/Globulin Ratio 0.7 L, Lipase 26 Radiography Diagnostic Testing: Radiology Impression Endo Retro Cholangiopancreatogram 01/03/23 17:15 IMPRESSION: Fluoroscopic guided ERCP. Electronically Signed: Jake Garland MD at 19:03 EDT , D/C Instructions Discharge Diet: No restrictions Meaningful Use Info Meaningful Use Diagnoses (Choose all that apply): None applicable Discharge Plan Admission Admit Date/Time: 01/03/23 13:33 Primary Reason for Your Visit: biliary stricture. Attending Provider: Sal Cassidy Primary Care Provider: Care Physician,No Primary Consulting Providers: Caty Flynn; Bisi Alas Instructions Additional Instructions / Restrictions: You had a biliary duct stricture. Dr. Salamanca has recommended you follow up with gastroenterology up in [place] for further evaluation. Discharge Orders/Prescriptions Prescriptions: New dicyclomine 20 mg tablet 20 mg PO TID PRN (Reason: abdominal pain) Qty: 20 0RF hydromorphone 2 mg tablet 2 mg PO Q4H PRN (Reason: pain) 3 Days Qty: 18 0RF Continued enoxaparin [Lovenox] 100 mg/mL syringe 60 mg subcut Q24H acetaminophen [Acetaminophen Extra Strength] 500 mg tablet 500 mg PO Q6H PRN (Reason: pain) sennosides-docusate sodium [Stool Softener-Stimulant Laxat] 8.6-50 mg Tablet 2 tab PO BID PRN (Reason: constipation) Creon 24,000-76,000 -120,000 unit capsule,delayed release(DR/EC) 1 cap PO TID lisinopril 20 mg Tablet 20 mg PO DAILY Qty: 30 0RF amlodipine 5 mg Tablet 5 mg PO DAILY Qty: 30 0RF ondansetron 4 mg tablet,disintegrating 4 mg PO Q8H PRN PRN (Reason: Nausea) Qty: 10 0RF omeprazole 20 mg capsule,delayed release(DR/EC) 20 mg PO DAILY Qty: 30 2RF Referrals / Follow Up: [facility] [Provider Group] - Within 2 Weeks Care Physician,No Primary [Primary Care Provider] - Disposition Disposition (needs filled in before D/C Order can be placed): Against Medical Advice Charges/Coding Visit Charges Inpatient E&M: 00603 Disch Hosp >30min 01/04/23 1426 <Electronically signed by Sal Cassidy DO> Cosigner Signature (if applicable): CC: Dr. Sal Cassidy, ; No Primary Care Physician~ Signed [facility] Work Phone: evaluation note* Diagnosis Onset Date Resolution Status Acute pancreatitis acute Hypokalemia acute [facility] Work Phone: Evaluation note* Diagnosis Onset Date Resolution Status Acute pancreatitis resolved Hypokalemia resolved [facility] Work Phone: Evaluation note* Diagnosis Onset Date Resolution Status Acute pancreatitis resolved Hypokalemia resolved Pancreatitis acute [facility] Work Phone: Evaluation note* Diagnosis Onset Date Resolution Status Pancreatitis resolved [facility] Work Phone: Evaluation note* Diagnosis Onset Date Resolution Status Pancreatitis resolved Acute hypokalemia acute Acute pancreatitis acute [facility] Work Phone: Evaluation note* Diagnosis Onset Date Resolution Status Alcohol abuse acute Hypokalemia acute Leukocytosis acute Nausea & vomiting acute Pancreatitis acute Superior mesenteric vein thrombosis acute Transaminitis acute [facility] Work Phone: Evaluation note* Diagnosis Onset Date Resolution Status Abnormal magnetic resonance cholangiopancreatography (MRCP) acute Alcohol abuse acute Hypokalemia acute Hypomagnesemia acute Leukocytosis acute Nausea & vomiting acute Pancreatitis acute Pleural effusion acute Portal vein thrombosis acute Superior mesenteric vein thrombosis acute Thrombosis acute Transaminitis acute [facility] Work Phone: Evaluation note* Diagnosis Onset Date Resolution Status Alcohol abuse acute Pancreatitis chronic Portal vein thrombosis chron ic Pleural effusion resolved Pancreatitis chronic Portal vein thrombosis chron ic Abdominal pain acute Portal vein thrombosis chron ic Hypokalemia acute Portal vein thrombosis chron ic [facility] Work Phone: Evaluation note* Diagnosis Onset Date Resolution Status Pancreatitis chronic Portal vein thrombosis chron ic Abdominal pain acute Portal vein thrombosis chron ic Hypokalemia acute Portal vein thrombosis chron ic Abnormal liver function test acute Hypokalemia acute Portal vein thrombosis chron ic [facility] Work Phone: Evaluation note* Diagnosis Onset Date Resolution Status Abdominal pain acute Portal vein thrombosis chron ic Hypokalemia acute Portal vein thrombosis chron ic Abnormal liver function test acute Hypokalemia acute Portal vein thrombosis chron ic Abdominal pain acute Abnormal liver function test acute Alcohol abuse acute Bacteriuria acute Hypertension, accelerated ac connie Hypokalemia acute Transaminitis acute UTI (urinary tract infection) acute Pancreatitis chronic [facility] Work Phone: Evaluation note* Diagnosis Onset Date Resolution Status Abdominal pain acute Portal vein thrombosis chron ic Hypokalemia acute Portal vein thrombosis chron ic Abnormal liver function test acute Hypokalemia acute Portal vein thrombosis chron ic Abdominal pain acute Abnormal liver function test acute Alcohol abuse acute Bacteriuria acute Hypertension, accelerated ac connie Hypokalemia acute Hypomagnesemia acute Hypoxia acute Transaminitis acute UTI (urinary tract infection) acute CHF exacerbation chronic Pancreatitis chronic Portal vein thrombosis chron ic [facility] Work Phone: Evaluation note* Diagnosis Onset Date Resolution Status Portal vein thrombosis chron ic Portal vein thrombosis chron ic Portal vein thrombosis chron ic Hypertension, accelerated re solved Hypomagnesemia resolved Hypoxia resolved [facility] Work Phone: Evaluation note* Diagnosis Onset Date Resolution Status Hypertension, accelerated re solved Hypomagnesemia resolved Hypoxia resolved Right upper quadrant abdominal pain acute Abdominal pain acute Elevated liver enzymes acute Gallbladder sludge acute History of alcohol abuse acu te Intractable abdominal pain a cute [facility] Work Phone: Evaluation note* Diagnosis Alcohol-induced chronic pancreatitis (HCC)- Primary [facility] Diagnosis Alcohol-induced chronic pancreatitis (HCC)- Primary Chronic pancreatitis [facility] Diagnosis Onset Date Resolution Status Portal vein thrombosis resol alhaji Hypertension, accelerated re solved Hypomagnesemia resolved Hypoxia resolved Portal vein thrombosis resol alhaji Portal vein thrombosis resol alhaji Abdominal pain acute Intractable abdominal pain a cute Elevated liver enzymes resol alhaji Gallbladder sludge resolved Portal vein thrombosis resol alhaji [facility] Work Phone: Evaluation note* Diagnosis Onset Date Resolution Status Hypertension, accelerated re solved Hypomagnesemia resolved Hypoxia resolved Portal vein thrombosis resol alhaji Portal vein thrombosis resol alhaji Abdominal pain acute Intractable abdominal pain a cute Elevated liver enzymes resol alhaji Gallbladder sludge resolved Portal vein thrombosis resol alhaji [facility] Work Phone: Evaluation note* Diagnosis Essential hypertension- Primary Unspecified essential [...] at today's visit. documented in this encounter [facility] note* Diagnosis Onset Date Resolution Status Portal vein thrombosis resol alhaji [facility] Work Phone: Evaluation noteNo assessment information available [facility] Work Phone: Evaluation note* Diagnosis Alcohol-induced chronic pancreatitis (HCC) Chronic pancreatitis [facility] Diagnosis Alcohol-induced chronic pancreatitis (HCC) Chronic pancreatitis [facility]* Diagnosis Nipple discharge- Primary Other sign and symptom in breast documented in this encounter [facility] note* Diagnosis Alcohol-induced chronic pancreatitis (HCC)- Primary Chronic pancreatitis documented in this encounter [facility] note* Diagnosis Acute on chronic pancreatitis (HCC)- Primary documented in this encounter [facility] note* Diagnosis Onset Date Resolution Status Breast abscess acute Breast abscess acute Breast abscess acute [facility] Work Phone: Evaluation note* Diagnosis Acute on chronic pancreatitis (HCC) documented in this encounter [facility] note* Diagnosis Pancreatitis, necrotizing- Primary Acute pancreatitis documented in this encounter [facility] note* Diagnosis Pancreatitis, necrotizing Acute pancreatitis documented in this encounter [facility] note* Diagnosis Alcohol-induced chronic pancreatitis (HCC)- Primary Chronic pancreatitis documented in this encounter [facility] note* Diagnosis Common bile duct (CBD) stricture- Primary Obstruction of bile duct Encounter for removal of biliary stent documented in this encounter [facility] note* Diagnosis Biliary stricture- Primary Obstruction of bile duct documented in this encounter [facility] note* Diagnosis Common bile duct (CBD) stricture Obstruction of bile duct Encounter for removal of biliary stent documented in this encounter [facility] note* Diagnosis Essential hypertension- Primary Unspecified essential hypertension Alcohol-induced chronic pancreatitis (HCC) Chronic pancreatitis Pre-op examination Preoperative examination, unspecified Cigarette nicotine dependence without complication Tobacco use disorder Alcohol abuse Alcohol abuse, unspecified Portal vein thrombosis Gastroesophageal reflux disease, unspecified whether esophagitis present Gall bladder stones Calculus of gallbladder without mention of cholecystitis or obstruction Pre-op examination Preoperative examination, unspecified Nicotine dependence, uncomplicated Tobacco use disorder Portal vein thrombosis Alcohol abuse Alcohol abuse, unspecified GERD (gastroesophageal reflux disease) Esophageal reflux Alcohol abuse- Primary Alcohol abuse, unspecified Biliary stricture Obstruction of bile duct Pre-op examination Preoperative examination, unspecified Acute on chronic pancreatitis (HCC) Cigarette nicotine dependence without complication Tobacco use disorder Alcohol-induced chronic pancreatitis (HCC)- Primary Chronic pancreatitis [facility] Diagnosis Essential hypertension- Primary Unspecified essential hypertension Alcohol-induced chronic pancreatitis (HCC) Chronic pancreatitis Pre-op examination Preoperative examination, unspecified Cigarette nicotine dependence without complication Tobacco use disorder Alcohol abuse Alcohol abuse, unspecified Portal vein thrombosis Gastroesophageal reflux disease, unspecified whether esophagitis present Gall bladder stones Calculus of gallbladder without mention of cholecystitis or obstruction Pre-op examination Preoperative examination, unspecified Nicotine dependence, uncomplicated Tobacco use disorder Portal vein thrombosis Alcohol abuse Alcohol abuse, unspecified GERD (gastroesophageal reflux disease) Esophageal reflux Alcohol abuse- Primary Alcohol abuse, unspecified Biliary stricture Obstruction of bile duct Pre-op examination Preoperative examination, unspecified Acute on chronic pancreatitis (HCC) Cigarette nicotine dependence without complication Tobacco use disorder * Assessment & Plan Note - Geri Stroud APRN.CNP - 04/09/2024 7:55 AM EST Associated Problem(s): Nicotine dependence, uncomplicated 15 pack years * Assessment & Plan Note - Geri Stroud APRN.CNP - 04/09/2024 7:54 AM EST Associated Problem(s): Alcohol abuse Sober since 12/2022 documented in this encounter [facility] note* Diagnosis Essential hypertension- Primary Unspecified essential hypertension Alcohol-induced chronic pancreatitis (HCC) Chronic pancreatitis Pre-op examination Preoperative examination, unspecified Cigarette nicotine dependence without complication Tobacco use disorder Alcohol abuse Alcohol abuse, unspecified Portal vein thrombosis Gastroesophageal reflux disease, unspecified whether esophagitis present Gall bladder stones Calculus of gallbladder without mention of cholecystitis or obstruction Alcohol abuse- Primary Alcohol abuse, unspecified Biliary stricture Obstruction of bile duct Pre-op examination Preoperative examination, unspecified Acute on chronic pancreatitis (HCC) Cigarette nicotine dependence without complication Tobacco use disorder Pre-op examination- Primary Preoperative examination, unspecified Alcohol-induced chronic pancreatitis (HCC) Chronic pancreatitis Pre-op examination Preoperative examination, unspecified Alcohol abuse Alcohol abuse, unspecified Cigarette nicotine dependence without complication Tobacco use disorder Gastroesophageal reflux disease, unspecified whether esophagitis present Essential hypertension Unspecified essential hypertension Portal vein thrombosis Alcohol abuse Alcohol abuse, unspecified Essential hypertension Unspecified essential hypertension GERD (gastroesophageal reflux disease) Esophageal reflux Nicotine dependence, uncomplicated Tobacco use disorder Portal vein thrombosis Pancreatic duct stricture- Primary Other specified disease of pancreas documented in this encounter [facility] note* Diagnosis Essential hypertension- Primary Unspecified essential hypertension Alcohol-induced chronic pancreatitis (HCC) Chronic pancreatitis Pre-op examination Preoperative examination, unspecified Cigarette nicotine dependence without complication Tobacco use disorder Alcohol abuse Alcohol abuse, unspecified Portal vein thrombosis Gastroesophageal reflux disease, unspecified whether esophagitis present Gall bladder stones Calculus of gallbladder without mention of cholecystitis or obstruction Alcohol abuse- Primary Alcohol abuse, unspecified Biliary stricture Obstruction of bile duct Pre-op examination Preoperative examination, unspecified Acute on chronic pancreatitis (HCC) Cigarette nicotine dependence without complication Tobacco use disorder Pre-op examination- Primary Preoperative examination, unspecified Alcohol-induced chronic pancreatitis (HCC) Chronic pancreatitis Pre-op examination Preoperative examination, unspecified Alcohol abuse Alcohol abuse, unspecified Cigarette nicotine dependence without complication Tobacco use disorder Gastroesophageal reflux disease, unspecified whether esophagitis present Essential hypertension Unspecified essential hypertension Portal vein thrombosis Alcohol abuse Alcohol abuse, unspecified Essential hypertension Unspecified essential hypertension GERD (gastroesophageal reflux disease) Esophageal reflux Nicotine dependence, uncomplicated Tobacco use disorder Portal vein thrombosis * Assessment & Plan Note - Radha Sears APRN.CNP - 05/21/2024 8:31 AM EST Associated Problem(s): Portal vein thrombosis Patient was previously on Lovenox. She reports she has not been on medication for over a year. * Assessment & Plan Note - Radha Sears APRN.CNP - 05/21/2024 8:30 AM EST Associated Problem(s): Essential hypertension No medication. Diet and lifestyle modification. * Assessment & Plan Note - Radha Sears APRN.CNP - 05/21/2024 8:30 AM EST Associated Problem(s): GERD (gastroesophageal reflux disease) No medication. Diet and lifestyle modification. * Assessment & Plan Note - Radha Sears APRN.CNP - 05/21/2024 8:30 AM EST Associated Problem(s): Nicotine dependence, uncomplicated Current everyday cigarette smoker. 15 pack years. Patient states that she smoked 5 cigarettes this morning prior to arrival for procedure. * Assessment & Plan Note - Radha Sears APRN.CNP - 05/21/2024 8:29 AM EST Associated Problem(s): Alcohol abuse Previous daily alcohol use. Sober since 12/2022. She reports that she used to drink less than a fifth of vodka a day. * Assessment & Plan Note - Radha Sears APRN.CNP - 05/21/2024 8:28 AM EST Associated Problem(s): Alcohol-induced chronic pancreatitis (HCC) ERCP today. * Assessment & Plan Note - Radha Sears APRN.CNP - 05/21/2024 7:24 AM EST Associated Problem(s): Pre-op examination see note for medical conditions which may affect ivory-operative course that were addressed at today's visit. [facility]* Diagnosis Essential hypertension- Primary Unspecified essential hypertension Alcohol-induced chronic pancreatitis (HCC) Chronic pancreatitis Pre-op examination Preoperative examination, unspecified Cigarette nicotine dependence without complication Tobacco use disorder Alcohol abuse Alcohol abuse, unspecified Portal vein thrombosis Gastroesophageal reflux disease, unspecified whether esophagitis present Gall bladder stones Calculus of gallbladder without mention of cholecystitis or obstruction Alcohol abuse- Primary Alcohol abuse, unspecified Biliary stricture Obstruction of bile duct Pre-op examination Preoperative examination, unspecified Acute on chronic pancreatitis (HCC) Cigarette nicotine dependence without complication Tobacco use disorder Pre-op examination- Primary Preoperative examination, unspecified Alcohol-induced chronic pancreatitis (HCC) Chronic pancreatitis Pre-op examination Preoperative examination, unspecified Alcohol abuse Alcohol abuse, unspecified Cigarette nicotine dependence without complication Tobacco use disorder Gastroesophageal reflux disease, unspecified whether esophagitis present Essential hypertension Unspecified essential hypertension Portal vein thrombosis Alcohol abuse Alcohol abuse, unspecified Essential hypertension Unspecified essential hypertension GERD (gastroesophageal reflux disease) Esophageal reflux Nicotine dependence, uncomplicated Tobacco use disorder Portal vein thrombosis Alcohol-induced chronic pancreatitis (HCC)- Primary Chronic pancreatitis Colon cancer screening Special screening for malignant neoplasms, colon [facility] Diagnosis Essential hypertension- Primary Unspecified essential hypertension Alcohol-induced chronic pancreatitis (HCC) Chronic pancreatitis Pre-op examination Preoperative examination, unspecified Cigarette nicotine dependence without complication Tobacco use disorder Alcohol abuse Alcohol abuse, unspecified Portal vein thrombosis Gastroesophageal reflux disease, unspecified whether esophagitis present Gall bladder stones Calculus of gallbladder without mention of cholecystitis or obstruction Alcohol abuse- Primary Alcohol abuse, unspecified Biliary stricture Obstruction of bile duct Pre-op examination Preoperative examination, unspecified Acute on chronic pancreatitis (HCC) Cigarette nicotine dependence without complication Tobacco use disorder Pre-op examination- Primary Preoperative examination, unspecified Alcohol-induced chronic pancreatitis (HCC) Chronic pancreatitis Pre-op examination Preoperative examination, unspecified Alcohol abuse Alcohol abuse, unspecified Cigarette nicotine dependence without complication Tobacco use disorder Gastroesophageal reflux disease, unspecified whether esophagitis present Essential hypertension Unspecified essential hypertension Portal vein thrombosis Alcohol abuse Alcohol abuse, unspecified Essential hypertension Unspecified essential hypertension GERD (gastroesophageal reflux disease) Esophageal reflux Nicotine dependence, uncomplicated Tobacco use disorder Portal vein thrombosis Pre-op exam- Primary Preoperative examination, unspecified Essential hypertension Unspecified essential hypertension Cigarette nicotine dependence without complication Tobacco use disorder Alcohol abuse Alcohol abuse, unspecified Portal vein thrombosis Alcohol-induced chronic pancreatitis (HCC) Chronic pancreatitis Pancreatic duct stricture Other specified disease of pancreas * Assessment & Plan Note - Blair Aggarwal APRN.CNP - 07/17/2024 10:51 AM EST Associated Problem(s): Alcohol-induced chronic pancreatitis (HCC) -ERCP 07/18/2024 * Assessment & Plan Note - Blair Aggarwal APRN.CNP - 07/17/2024 10:50 AM EST Associated Problem(s): Portal vein thrombosis -Patient was previously on Lovenox - 2021 -She reports she has not been on medication for over a year. * Assessment & Plan Note - Blair Aggarwal APRN.CNP - 07/17/2024 10:50 AM EST Associated Problem(s): Alcohol abuse -Previous daily alcohol use. -Sober since 12/2022. -She reports that she used to drink less than a fifth of vodka a day. * Assessment & Plan Note - Blair Aggarwal APRN.CNP - 07/17/2024 10:49 AM EST Associated Problem(s): Nicotine dependence, uncomplicated -Current everyday cigarette smoker 1/2 PPD -15 pack years. -Vaping- occasional- nicotine * Assessment & Plan Note - Blair Aggarwal APRN.CNP - 07/17/2024 10:49 AM EST Associated Problem(s): Essential hypertension -No medication. -Diet and lifestyle modification. -Controlled during PAT * Assessment & Plan Note - Blair Aggarwal APRN.CNP - 07/17/2024 10:48 AM EST Associated Problem(s): Pre-op exam -Identify any potential anesthesia problems or contraindications to the planned procedure. [facility] Essential hypertension- Primary Unspecified essential hypertension Alcohol-induced chronic pancreatitis (HCC) Chronic pancreatitis Pre-op examination Preoperative examination, unspecified Cigarette nicotine dependence without complication Tobacco use disorder Alcohol abuse Alcohol abuse, unspecified Portal vein thrombosis Gastroesophageal reflux disease, unspecified whether esophagitis present Gall bladder stones Calculus of gallbladder without mention of cholecystitis or obstruction Alcohol abuse- Primary Alcohol abuse, unspecified Biliary stricture (HCC) Obstruction of bile duct Pre-op examination Preoperative examination, unspecified Acute on chronic pancreatitis (HCC) Cigarette nicotine dependence without complication Tobacco use disorder Pre-op examination- Primary Preoperative examination, unspecified Alcohol-induced chronic pancreatitis (HCC) Chronic pancreatitis Pre-op examination Preoperative examination, unspecified Alcohol abuse Alcohol abuse, unspecified Cigarette nicotine dependence without complication Tobacco use disorder Gastroesophageal reflux disease, unspecified whether esophagitis present Essential hypertension Unspecified essential hypertension Portal vein thrombosis Alcohol abuse Alcohol abuse, unspecified Essential hypertension Unspecified essential hypertension GERD (gastroesophageal reflux disease) Esophageal reflux Nicotine dependence, uncomplicated Tobacco use disorder Portal vein thrombosis Pre-op exam- Primary Preoperative examination, unspecified Essential hypertension Unspecified essential hypertension Cigarette nicotine dependence without complication Tobacco use disorder Alcohol abuse Alcohol abuse, unspecified Portal vein thrombosis Alcohol-induced chronic pancreatitis (HCC) Chronic pancreatitis Pancreatic duct stricture (HCC) Other specified disease of pancreas Pancreatic duct dilated (HCC)- Primary Other specified disease of pancreas [facility] Essential hypertension- Primary Unspecified essential hypertension Alcohol-induced chronic pancreatitis (HCC) Chronic pancreatitis Pre-op examination Preoperative examination, unspecified Cigarette nicotine dependence without complication Tobacco use disorder Alcohol abuse Alcohol abuse, unspecified Portal vein thrombosis Gastroesophageal reflux disease, unspecified whether esophagitis present Gall bladder stones Calculus of gallbladder without mention of cholecystitis or obstruction Alcohol abuse- Primary Alcohol abuse, unspecified Biliary stricture (HCC) Obstruction of bile duct Pre-op examination Preoperative examination, unspecified Acute on chronic pancreatitis (HCC) Cigarette nicotine dependence without complication Tobacco use disorder Pre-op examination- Primary Preoperative examination, unspecified Alcohol-induced chronic pancreatitis (HCC) Chronic pancreatitis Pre-op examination Preoperative examination, unspecified Alcohol abuse Alcohol abuse, unspecified Cigarette nicotine dependence without complication Tobacco use disorder Gastroesophageal reflux disease, unspecified whether esophagitis present Essential hypertension Unspecified essential hypertension Portal vein thrombosis Alcohol abuse Alcohol abuse, unspecified Essential hypertension Unspecified essential hypertension GERD (gastroesophageal reflux disease) Esophageal reflux Nicotine dependence, uncomplicated Tobacco use disorder Portal vein thrombosis Pre-op exam- Primary Preoperative examination, unspecified Essential hypertension Unspecified essential hypertension Cigarette nicotine dependence without complication Tobacco use disorder Alcohol abuse Alcohol abuse, unspecified Portal vein thrombosis Alcohol-induced chronic pancreatitis (HCC) Chronic pancreatitis Pancreatic duct stricture (HCC) Other specified disease of pancreas Pre-op exam- Primary Preoperative examination, unspecified Gastroesophageal reflux disease, unspecified whether esophagitis present Essential hypertension Unspecified essential hypertension Portal vein thrombosis Alcohol-induced chronic pancreatitis (HCC) Chronic pancreatitis Pancreatic duct stricture (HCC) Other specified disease of pancreas Cigarette nicotine dependence without complication Tobacco use disorder Alcohol abuse Alcohol abuse, unspecified * Assessment & Plan Note - Tete Rendon APRN.CNP - 10/08/2024 11:35 AM EDT Associated Problem(s): Alcohol abuse Sober since 12/2022 * Assessment & Plan Note - Tete Rendon APRN.CNP - 10/08/2024 9:31 AM EDT Associated Problem(s): Nicotine dependence, uncomplicated Reports quit cigarette 09/2024 Vaping nicotine daily Smoked cigarettes x 30 years 1 PPD * Assessment & Plan Note - Tete Rendon APRN.CNP - 10/08/2024 9:29 AM EDT Associated Problem(s): Pancreatic duct stricture (HCC) ERCP 10/10/24 * Assessment & Plan Note - Tete Rendon APRN.CNP - 10/08/2024 9:27 AM EDT Associated Problem(s): Alcohol-induced chronic pancreatitis (HCC) ERCP 10/10/24 * Assessment & Plan Note - Tete Rendon APRN.CNP - 10/08/2024 9:27 AM EDT Associated Problem(s): Portal vein thrombosis Patient reports - previously on Lovenox - 2021 -She reports she has not been on medication for over a year * Assessment & Plan Note - Tete Rendon APRN.CNP - 10/07/2024 1:16 PM EDT Associated Problem(s): Essential hypertension No medication Last 14 BP Last 14 Encounter BP Readings: Date: BP: 07/18/2024 129/98 07/18/2024 127/87 07/03/2024 104/68 05/21/2024 136/102 05/21/2024 123/98 04/09/2024 155/110 04/09/2024 133/93 12/05/2023 115/87 12/05/2023 121/84 09/20/2023 112/74 08/10/2023 127/92 08/10/2023 121/82 07/19/2023 126/78 07/05/2023 126/90 * Assessment & Plan Note - Tete Rendon APRN.CNP - 10/07/2024 1:15 PM EDT Associated Problem(s): GERD (gastroesophageal reflux disease) Diet controlled * Assessment & Plan Note - Tete Rendon APRN.CNP - 10/07/2024 1:15 PM EDT Associated Problem(s): Pre-op exam Medical conditions which may affect the perioperative course were address in today's visit. [facility] Diagnosis Essential hypertension- Primary Unspecified essential hypertension Alcohol-induced chronic pancreatitis (HCC) Chronic pancreatitis Pre-op examination Preoperative examination, unspecified Cigarette nicotine dependence without complication Tobacco use disorder Alcohol abuse Alcohol abuse, unspecified Portal vein thrombosis Gastroesophageal reflux disease, unspecified whether esophagitis present Gall bladder stones Calculus of gallbladder without mention of cholecystitis or obstruction Alcohol abuse- Primary Alcohol abuse, unspecified Biliary stricture (HCC) Obstruction of bile duct Pre-op examination Preoperative examination, unspecified Acute on chronic pancreatitis (HCC) Cigarette nicotine dependence without complication Tobacco use disorder Pre-op examination- Primary Preoperative examination, unspecified Alcohol-induced chronic pancreatitis (HCC) Chronic pancreatitis Pre-op examination Preoperative examination, unspecified Alcohol abuse Alcohol abuse, unspecified Cigarette nicotine dependence without complication Tobacco use disorder Gastroesophageal reflux disease, unspecified whether esophagitis present Essential hypertension Unspecified essential hypertension Portal vein thrombosis Alcohol abuse Alcohol abuse, unspecified Essential hypertension Unspecified essential hypertension GERD (gastroesophageal reflux disease) Esophageal reflux Nicotine dependence, uncomplicated Tobacco use disorder Portal vein thrombosis Pre-op exam- Primary Preoperative examination, unspecified Essential hypertension Unspecified essential hypertension Cigarette nicotine dependence without complication Tobacco use disorder Alcohol abuse Alcohol abuse, unspecified Portal vein thrombosis Alcohol-induced chronic pancreatitis (HCC) Chronic pancreatitis Pancreatic duct stricture (HCC) Other specified disease of pancreas Pre-op exam- Primary Preoperative examination, unspecified Gastroesophageal reflux disease, unspecified whether esophagitis present Essential hypertension Unspecified essential hypertension Portal vein thrombosis Alcohol-induced chronic pancreatitis (HCC) Chronic pancreatitis Pancreatic duct stricture (HCC) Other specified disease of pancreas Cigarette nicotine dependence without complication Tobacco use disorder Alcohol abuse Alcohol abuse, unspecified Pancreatic duct stricture (HCC)- Primary Other specified disease of pancreas Pancreatic duct dilated (HCC) Other specified disease of pancreas [facility] Diagnosis Essential hypertension- Primary Unspecified essential hypertension Alcohol-induced chronic pancreatitis (HCC) Chronic pancreatitis Pre-op examination Preoperative examination, unspecified Cigarette nicotine dependence without complication Tobacco use disorder Alcohol abuse Alcohol abuse, unspecified Portal vein thrombosis Gastroesophageal reflux disease, unspecified whether esophagitis present Gall bladder stones Calculus of gallbladder without mention of cholecystitis or obstruction Alcohol abuse- Primary Alcohol abuse, unspecified Biliary stricture (HCC) Obstruction of bile duct Pre-op examination Preoperative examination, unspecified Acute on chronic pancreatitis (HCC) Cigarette nicotine dependence without complication Tobacco use disorder Pre-op examination- Primary Preoperative examination, unspecified Alcohol-induced chronic pancreatitis (HCC) Chronic pancreatitis Pre-op examination Preoperative examination, unspecified Alcohol abuse Alcohol abuse, unspecified Cigarette nicotine dependence without complication Tobacco use disorder Gastroesophageal reflux disease, unspecified whether esophagitis present Essential hypertension Unspecified essential hypertension Portal vein thrombosis Alcohol abuse Alcohol abuse, unspecified Essential hypertension Unspecified essential hypertension GERD (gastroesophageal reflux disease) Esophageal reflux Nicotine dependence, uncomplicated Tobacco use disorder Portal vein thrombosis Pre-op exam- Primary Preoperative examination, unspecified Essential hypertension Unspecified essential hypertension Cigarette nicotine dependence without complication Tobacco use disorder Alcohol abuse Alcohol abuse, unspecified Portal vein thrombosis Alcohol-induced chronic pancreatitis (HCC) Chronic pancreatitis Pancreatic duct stricture (HCC) Other specified disease of pancreas Pre-op exam- Primary Preoperative examination, unspecified Gastroesophageal reflux disease, unspecified whether esophagitis present Essential hypertension Unspecified essential hypertension Portal vein thrombosis Alcohol-induced chronic pancreatitis (HCC) Chronic pancreatitis Pancreatic duct stricture (HCC) Other specified disease of pancreas Cigarette nicotine dependence without complication Tobacco use disorder Alcohol abuse Alcohol abuse, unspecified Alcohol-induced chronic pancreatitis (HCC) Chronic pancreatitis [facility] Diagnosis Essential hypertension- Primary Unspecified essential hypertension Alcohol-induced chronic pancreatitis (HCC) Chronic pancreatitis Pre-op examination Preoperative examination, unspecified Cigarette nicotine dependence without complication Tobacco use disorder Alcohol abuse Alcohol abuse, unspecified Portal vein thrombosis Gastroesophageal reflux disease, unspecified whether esophagitis present Gall bladder stones Calculus of gallbladder without mention of cholecystitis or obstruction Alcohol abuse- Primary Alcohol abuse, unspecified Biliary stricture (HCC) Obstruction of bile duct Pre-op examination Preoperative examination, unspecified Acute on chronic pancreatitis (HCC) Cigarette nicotine dependence without complication Tobacco use disorder Pre-op examination- Primary Preoperative examination, unspecified Alcohol-induced chronic pancreatitis (HCC) Chronic pancreatitis Pre-op examination Preoperative examination, unspecified Alcohol abuse Alcohol abuse, unspecified Cigarette nicotine dependence without complication Tobacco use disorder Gastroesophageal reflux disease, unspecified whether esophagitis present Essential hypertension Unspecified essential hypertension Portal vein thrombosis Alcohol abuse Alcohol abuse, unspecified Essential hypertension Unspecified essential hypertension GERD (gastroesophageal reflux disease) Esophageal reflux Nicotine dependence, uncomplicated Tobacco use disorder Portal vein thrombosis Pre-op exam- Primary Preoperative examination, unspecified Essential hypertension Unspecified essential hypertension Cigarette nicotine dependence without complication Tobacco use disorder Alcohol abuse Alcohol abuse, unspecified Portal vein thrombosis Alcohol-induced chronic pancreatitis (HCC) Chronic pancreatitis Pancreatic duct stricture (HCC) Other specified disease of pancreas Pre-op exam- Primary Preoperative examination, unspecified Gastroesophageal reflux disease, unspecified whether esophagitis present Essential hypertension Unspecified essential hypertension Portal vein thrombosis Alcohol-induced chronic pancreatitis (HCC) Chronic pancreatitis Pancreatic duct stricture (HCC) Other specified disease of pancreas Cigarette nicotine dependence without complication Tobacco use disorder Alcohol abuse Alcohol abuse, unspecified Alcohol-induced chronic pancreatitis (HCC)- Primary Chronic pancreatitis [facility] July 28, 2022 10:58am Note Date/Time July 28, 2022 10:58am [facility] Medical Records Department [address] [place] [address] H&P Exam - Hospitalist 07/28/22 1041 MR#: [id number] Acct: [id number] Name: MELVA KERNS Rep #:[id number] : 1980 42 From: Jovanna Leonard DO PCP: Care Physician,No Primary Status :[id number] - General General Date of Admission: 07/28/22 Date of Service: 07/28/22 Chief Complaint: Abdominal pain/nausea/vomiting HPI Narrative MELVA KERNS, is a 42 F who presented to the emergency department was [facility] on 07/28/2022 with a chief complaint of upper abdominal pain that began last evening. The patient reported it felt similar to her previous episodes of pancreatitis. She states she has had pancreatitis previously that had been associated with alcohol intake. She does admit to still drinking approximately 2 shots of vodka and cranberry juice twice daily. She also admits to being a heavy smoker. She states the pain started last evening and has worsened since that point time. She now has associated nausea and vomiting has not been able to eat or drink much. She denies any bowel changes and reports normal stool color. She had no fever or chills. No chest pain or shortness of breath. Vital signs on presentation demonstrated temperature of 97, heart rate 106, blood pressure 184/120, respiratory rate 16, oxygen saturation was 99% on room air. CBC showed a leukocytosis that was mild at 11.9 with a mild left shift. Chemistry panel showed hypokalemia with potassium of 2.8 renal function was normal. Liver functions are elevated with an AST of 51 and ALT of 67 along withan alk phos of 131. Her lipase was 9420. A serum test was negative. Her UA does not show infection however does demonstrate some dehydration and shehas markedly elevated ketones at 150. CT of the abdomen pelvis was performed and demonstrated findings consistent with acute pancreatitis as well as a focal nonocclusive thrombus at the junction of the superior mesenteric vein and the portal vein, varices in the splenic hilum and hepatomegaly with fatty infiltration of the liver. In the emergency department the patient was placed on aggressive IV fluids, given pain medications and antiemetics and request for admission was made. [facility] Medical History Alcohol abuse Pancreatitis Smoker Home Medications amlodipine 10 mg tablet 10 mg PO DAILY #30 tabs 02/22/22 [Rx Last Taken 07/28/22 03:00] omeprazole 40 mg capsule,delayed release 40 mg PO DAILY #30 caps 02/22/22 [Rx Last Taken 07/28/22 03:00] ondansetron 4 mg disintegrating tablet 4 mg PO Q8H PRN nausea and vomiting #30 tabs 02/22/22 [Rx Last Taken 07/28/22 03:00] sennosides 8.6 mg-docusate sodium 50 mg tablet (Stool Softener-Stimulant Laxative) 2 tab PO BID PRN constipation #60 tabs 02/22/22 [Rx Last Taken Unknown] ibuprofen 200 mg tablet (Motrin IB) 800 mg PO Q4H PRN Pain 07/28/22 [History Last Taken 07/28/22 06:30] sucralfate 100 mg/mL oral suspension (Carafate) 10 ml PO BID PRN GERD 07/28/22 [History Last Taken 07/24/22] Allergy/AdvReac Type Severity Reaction Status Date / Time No Known Allergies Allergy Verified 07/28/22 06:08 no significant family history Surgical History H/O tubal ligation Social History (Updated 07/28/22 @ 10:[address] Jovanna Leonard DO) household members: significant other and children housing: house Smoking Status: Current every day smoker tobacco type: cigarettes alcohol intake: current details: Drinks approximately 4 shots of vodka a day and cranberry juice substance use type: does not use ROS Constitutional Constitutional: Reports anorexia; Denies change in weight, chills, fatigue, fever(s), malaise, night sweats, weakness or other Eyes Eyes: Denies blurry vision, change in eye color, change in vision, discharge from eye(s), double vision, erythema, eye pain, loss of vision or other ENT HEENT: Denies abnormal hearing, dysphagia, ear pain, epistaxis, headache(s), hearing loss, nasal congestion, nasal discharge, post nasal drip, sinus pressure, sore throat or other Cardiovascular Cardiovascular: Denies chest pain, claudication, dyspnea on exertion, edema, lightheadedness, orthopnea, palpitations, paroxysmal nocturnal dyspnea, rapid heart rate, syncope or other Respiratory/Chest Respiratory/Chest: Denies cough, dyspnea, excessive phlegm production, hemoptysis, productive cough, shortness of breath at rest, shortness of breath with exertion, wheezing or other Gastrointestinal Gastrointestinal: Reports abdominal pain, nausea and vomiting; Denies coffee ground emesis, constipation, diarrhea, dyspepsia, hematemesis, hematochezia, loose stools, melena or other Genitourinary Genitourinary: Denies burning urination, difficulty urinating, dysuria, hematuria, nocturia, urinary frequency, urinary hesitancy, urinary incontinence, urinary urgency or other Musculoskeletal Musculoskeletal: Reports back pain; Denies arthralgias, joint pain, joint stiffness, joint swelling, myalgias, neck pain or other Neurologic Neurologic: Denies abnormal gait, abnormal speech, confusion, disequilibrium, dizziness, focal weakness, headache(s), numbness, paresthesias, seizure-like activity, seizures, syncope, tingling, tremor(s) or other Psychiatric Psychiatric: Denies anxiety, depression, homicidal ideation, suicidal ideation or other Endocrine Endocrinology: Denies change in body appearance, cold intolerance, excessive sweating, heat intolerance, polydipsia, polyuria or other Hematologic/Lymphatic Hematologic/Lymphatic: Denies anemia, easy bleeding, easy bruising, lymphadenopathy or other Allergic/Immunologic Allergic/Immunologic: Denies rhinitis, hives, eczemia, asthma or other Vital Signs Vital Signs Vital Signs: 07/28/22 06:06 07/28/22 06:45 07/28/22 10:30 Temperature 97.0 F L 98 F Temperature Source Temporal Temporal Pulse Rate 106 H 93 Respiratory Rate 16 14 Blood Pressure 184/120 H 191/111 H Blood Pressure Mean 141 137 Pulse Ox 99 99 97 Oxygen Delivery Method Room Air Room Air Room Air 07/28/22 10:31 Temperature Temperature Source Pulse Rate Respiratory Rate Blood Pressure 191/115 H Blood Pressure Mean 140 Pulse Ox Oxygen Delivery Method Weight Weight: 60.5 kg Body Mass Index (BMI) 22.8 Physical Exam Const alert, oriented x3 and well nourished Constitutional Narrative: Middle-aged white female who appears much older than stated age, lying in bed, appears uncomfortable but nontoxic, daughter at bedside General Appearance: cooperative HEENT normocephalic, head/scalp atraumatic and hearing grossly normal bilaterally HEENT Narrative: Dentition is poor, Mallampati is 2, no thrush, mucous membranes are dry Eyes PERRL, EOMs intact bilaterally and conjunctivae normal Eyes Narrative: No scleral icterus Neck no lymphadenopathy, supple, no JVD and no carotid bruits Neck Narrative: Trachea midline, no thyroid enlargement Resp Resp Narrative: Diffusely diminished with few scattered end expiratory wheezes, no rhonchi or rales Auscultation: wheezes; Negative for rales or rhonchi Cardio regular rhythm, S1 normal heart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 Percocet for pain. Warm compresses to the area. Continue your antibiotics 4 times a day. Call and follow-up with either your [employer] office or the general surgeon on-call Dr. Bisi Alas with [facility]. The packing gauze should be pulled out in 4 to 5 days. Return if increasing pain, fever or looks a lot worse. It should start improving now with the antibiotics and the drainage of the abscess.[facility] Work Phone: Hospital Discharge instructions Additional Instructions Please follow-up with your doctors as scheduledW[facility] Work Phone: Hospital Discharge instructionsAdditional Instructions If your pain is not controlled at home with the pain medication you need to return to the ED. If you develop fever, chills, nausea, vomiting or worsening abdominal pain you need to return. Your evaluation in the Emergency Department did not reveal any acute reason for admission. However, I want to emphasize that you may be early in the course of a disease process or illness even if it is not present. For this reason you should follow-up within 24 hours for reevaluation with either your primary care physician or if necessary back here in the Emergency Department. You should return to the Emergency Department immediately if your symptoms worsen or new symptoms develop.[facility] Work Phone: Reason for referral (narrative)* Outpatient Procedure (Routine) - Pending Review Specialty Diagnoses / Procedures Referred By Mathew gaona Referred To Contact [facility] Diagnoses Alcohol-induced chronic pancreatitis (HCC) Procedures EGD - THERAPEUTIC, EUS, OR TUBE INTERVENTIONS EGD INTRMURAL US NEEDLE ASPIRATE/BIOPSY ESOPHAGS Haile Barriga MD [address] [place] [address] [facility] [address] [place] [address] Referral ID Status Reason Start Date Expiration Date Visits Requested Visits Authorized [id number] Pending Review Auto-Generat ed Referral 05/08/2023 04/19/2024 1 1 [facility] for referral (narrative)* Outpatient Procedure (Routine) - Authorized Specialty Diagnoses / Procedures Referred By Mathew t Referred To Contact [facility] Diagnoses Alcohol-induced chronic pancreatitis (HCC) Procedures EGD - THERAPEUTIC, EUS, OR TUBE INTERVENTIONS EGD INTRMURAL US NEEDLE ASPIRATE/BIOPSY ESOPHAGS Haile Barriga MD [address] [place] [address] [facility] [address] [place] [address] Referral ID Status Reason Start Date Expiration Date Visits Requested Visits Authorized [id number] Authorized Auto-Generate d Referral Patient Cleared - Qualified HCAP/501/FA 3 07/19/2023 99 99 [facility] for referral (narrative)* Diagnostic Procedure Only (Routine) - Pending Review Specialty Diagnoses / Procedures Referred By Mahtew t Referred To Contact [facility] Diagnoses Nipple discharge Procedures US BREAST LTD RIGHT US BREAST UNI REAL TIME WITH IMAGE LIMITED Celine Mabry APRN.CNP [address] [place] [address] [facility] [address] [place] [address] Referral ID Status Reason Start Date Expiration Date Visits Requested Visits Authorized [id number] Pending Review Auto-Generat ed Referral 07/26/2023 08/24/2024 1 1 [facility] for referral (narrative)* Outpatient Procedure (Routine) - Pending Review Specialty Diagnoses / Procedures Referred By Mathew gaona Referred To Contact [facility] Diagnoses Acute on chronic pancreatitis (HCC) Procedures ERCP ERCP ERCP DX COLLECTION SPECIMEN BRUSHING/WASHING Carlos Davis MD [address] [place] [address] [place] [id number] Referral ID Status Reason Start Date Expiration Date Visits Requested Visits Authorized [phone] Pending Review Auto-Generat ed Referral 08/01/2023 08/01/2024 1 1 [facility] for referral (narrative)* Outpatient Procedure (Routine) - Closed Specialty Diagnoses / Procedures [facility] Referred To Contact [facility] Diagnoses Acute on chronic pancreatitis (HCC) Procedures ERCP ERCP ERCP DX COLLECTION SPECIMEN BRUSHING/WASHING Carlos Davis MD [address] [place] [address] [place] [address] [place] [phone] Referral ID Status Reason Start Date Expiration Date V isits Requested Visits Authorized [id number] Closed Auto-Generate d Referral 08/02/2023 06/04/2024 1 1 [facility] for referral (narrative)* Outpatient Procedure (Routine) - Authorized Specialty Diagnoses / Procedures Referred By [facility] Referred To Contact [facility] Diagnoses Common bile duct (CBD) stricture Encounter for removal of biliary stent Procedures ERCP ERCP ERCP REMOVE FOREIGN BODY/STENT BILIARY[place] [address] [place], [place] [id number] [place] [address] [place] [phone] Referral ID Status Reason Start Date Expiration Date Visits Requested Visits Authorized [id number] Authorized Auto-Generat ed Referral 11/27/2023 06/04/2024 1 1 [facility] for referral (narrative)* Outpatient Procedure (Routine) - Pending Review Specialty Diagnoses / Procedures Referred By Mathew gaona Referred To Contact [facility] Diagnoses Biliary stricture Procedures ERCP ERCP DESTRUCTION/LITHOTRIPSY CALCULI ANY METHOD Carlos Davis MD [address] [place] [address] [address] Referral ID Status Reason Start Date Expiration Date Visits Requested Visits Authorized [id number] Pending Review Auto-Generat ed Referral 03/06/2024 12/04/2024 1 1 [facility] for referral (narrative)* Outpatient Procedure (Routine) - Closed Specialty Diagnoses / Procedures Referred By Mathew gaona Referred To Contact [facility] Diagnoses Common bile duct (CBD) stricture Encounter for removal of biliary stent Procedures ERCP ERCP ERCP REMOVE FOREIGN BODY/STENT BILIARY/PANC DUCT Carlos Davis MD [address] [place] [address] [address] Referral ID Status Reason Start Date Expiration Date V isits Requested Visits Authorized [id number] Closed Auto-Generate d Referral 11/27/2023 06/04/2024 1 1 T [facility] for referral (narrative)* Outpatient Procedure (Routine) - New Request Specialty Diagnoses / Procedures Referred By Mathew gaona Referred To Contact [facility] Diagnoses Alcohol-induced chronic pancreatitis (HCC) Procedures ERCP ERCP BILIARY/PANC DUCT STENT EXCHANGE W/DIL&WIRE Roel Mosley MD [address] [facility] [place] [address] [address] Referral ID Status Reason Start Date Expiration Date Visits Requested Visits Authorized [id number] New Request Auto-Generat ed Referral 04/09/2024 04/09/2025 1 1 [facility] for referral (narrative)* Outpatient Procedure (Routine) - Closed Specialty Diagnoses / Procedures Referred By Contac t Referred To [facility] Diagnoses Biliary stricture Procedures ERCP ERCP ERCP DESTRUCTION/LITHOTRIPSY CALCULI ANY METHOD Carlos Davis MD [address] [place] [phone] [place] [address] Referral ID Status Reason Start Date Expiration Date V isits Requested Visits Authorized [id number] Closed Auto-Generate d Referral 02/26/2024 06/04/2024 1 1 [facility] for referral (narrative)* Outpatient Procedure (Routine) - New Request Specialty Diagnoses / Procedures Referred By Contac t Referred To [facility] Diagnoses Pancreatic duct stricture Procedures ERCP ERCP BILIARY/PANC DUCT STENT EXCHANGE W/DIL&WIRE Roel Mosley MD [facility] [place] [address] [address] Referral ID Status Reason Start Date Expiration Date Visits Requested Visits Authorized [id number] New Request Auto-Generat ed Referral 05/21/2025 1 1 [facility] for referral (narrative)* Outpatient Procedure (Routine) - Closed Specialty Diagnoses / Procedures Referred By Contac t Referred To [facility] Diagnoses Alcohol-induced chronic pancreatitis (HCC) Procedures ERCP ERCP BILIARY/PANC DUCT STENT EXCHANGE W/DIL&WIRE Roel Mosley MD [address] [facility] [place] [address] [place] [phone] Referral ID Status Reason Start Date Expiration Date V isits Requested Visits Authorized [id number] Closed Auto-Generate d Referral 04/11/2024 06/04/2024 1 1 [facility] for referral (narrative)* Outpatient Procedure (Routine) - Pending Review Specialty Diagnoses / Procedures Referred By Contac t Referred To Contact [facility] Diagnoses Colon cancer screening Procedures COLONOSCOPY SCREENING COLONOSCOPY FLX DX W/COLLJ SPEC WHEN Roel Moyer MD [address] [address] [place] [phone] Referral ID Status Reason Start Date Expiration Date Visits Requested Visits Authorized [id number] Pending Review Auto-Generat ed Referral 07/03/2024 07/03/2025 1 1 [facility] for referral (narrative)No reason for referral information [facility]WTri[facility] Work Phone: Reason for visit Narrative* Outpatient Procedure (Routine) - Authorized Specialty Diagnoses / Procedures [facility] Diagnoses Alcohol-induced chronic pancreatitis (HCC) Procedures EGD - THERAPEUTIC, EUS, OR TUBE INTERVENTIONS EGD INTRMURAL US NEEDLE ASPIRATE/BIOPSY ESOPHAGS Haile Barriga MD 1 [facility] [address] [place] [address] [address] Referral ID Status Reason Start Date Expiration Date Visits Requested Visits Authorized [id number] Authorized Auto-Generate d Referral Patient Cleared - Qualified HCAP/[id number] 3 07/19/2023 99 99 [facility] for visit Narrative* Outpatient Procedure (Routine) - Closed Specialty Diagnoses / Procedures [facility] Ref[facility] To Contact [facility] Diagnoses Acute on chronic pancreatitis (HCC) Procedures ERCP ERCP ERCP DX COLLECTION SPECIMEN BRUSHING/WASHING Carlos Davis MD [address] [facility] [place] [address] [address] [place] [phone] Referral ID Status Reason Start Date Expiration Date V isits Requested Visits Authorized [id number] Closed Auto-Generate d Referral 08/02/2023 06/04/2024 1 1 [facility] for visit Narrative* Diagnostic Procedure Only (Routine) - Closed Specialty Diagnoses / Procedures Referred By Mathew t Referred To Contact MR IMAGING Diagnoses Pancreatitis, necrotizing Procedures MRI PANC/BRYAN WO/W IVCON MRI ABDOMEN W/O & W/CONTRAST MATERIAL Evelia Mak MD 1 [place] [address] Mr Imaging [facility] Referral ID Status Reason Start Date Expiration Date V isits Requested Visits Authorized [id number] Closed Auto-Generat ed Referral Patient Cleared - Admin/Chairm an/Director advise to proceed or did not respond 11/08/2023 01/07/2024 1 1 [facility] for visit Narrative* Outpatient Procedure (Routine) - Closed Specialty Diagnoses / Procedures [facility] Diagnoses Common bile duct (CBD) stricture Encounter for removal of biliary stent Procedures ERCP ERCP ERCP REMOVE FOREIGN BODY/STENT BILIARY/PANC DUCT Carlos Davis MD [address] [facility] [place] [id number] [address] [place] [phone] Referral ID Status Reason Start Date Expiration Date V isits Requested Visits Authorized [id number] Closed Auto-Generate d Referral 11/27/2023 06/04/2024 1 1 [facility] for visit Narrative* Outpatient Procedure (Routine) - Closed Specialty Diagnoses / Procedures Referred By Mathew gaona Referred To Contact [facility] Diagnoses Biliary stricture Procedures ERCP ERCP ERCP DESTRUCTION/LITHOTRIPSY CALCULI ANY METHOD Carlos Davis MD [address] [place] [address] [address] [place] [phone] Referral ID Status Reason Start Date Expiration Date V isits Requested Visits Authorized [id number] Closed Auto-Generate d Referral 02/26/2024 06/04/2024 1 1 [facility] for visit Narrative* Outpatient Procedure (Routine) - Closed Specialty Diagnoses / Procedures Referred By Mathew gaona Referred To Contact [facility] Diagnoses Alcohol-induced chronic pancreatitis (HCC) Procedures ERCP ERCP BILIARY/PANC DUCT STENT EXCHANGE W/DIL&WIRE Roel Mosley MD [address] [place] [address] [facility] [place] [address] [place] [address] Referral ID Status Reason Start Date Expiration Date V isits Requested Visits Authorized [id number] Closed Auto-Generate d Referral 04/11/2024 06/04/2024 1 1 [facility] for visit Narrative* Outpatient Procedure (Routine) - Closed Specialty Diagnoses / Procedures Referred By Mathew gaona Referred To Contact [facility] Diagnoses Pancreatic duct stricture Procedures ERCP ERCP BILIARY/PANC DUCT STENT EXCHANGE W/DIL&WIRE Roel Mosley MD [address] [place] [address] Phone: tel: fax: [facility] [address] [address] Referral ID Status Reason Start Date Expiration Date V isits Requested Visits Authorized [id number] Closed Auto-Generate d Referral 06/10/2024 06/04/2025 1 1 [facility] for visit Narrative* Outpatient Procedure (Routine) - Closed Specialty Diagnoses / Procedures Referred By Mathew agona Referred To Contact [facility] Diagnoses Pancreatic duct dilated (HCC) Procedures ERCP ERCP BILIARY/PANC DUCT STENT EXCHANGE W/DIL&WIRE Roel Mosley MD [address] [place] [address] Phone: tel: fax: [facility] Disease [address] [address] Referral ID Status Reason Start Date Expiration Date V isits Requested Visits Authorized [id number] Closed Auto-Generate d Referral 09/11/2024 06/04/2025 1 1 [facility] for visit Narrative* Diagnostic Procedure Only (Routine) - Closed Specialty Diagnoses / Procedures Referred By Contac t Referred To Contact [facility] Diagnoses Alcohol-induced chronic pancreatitis (HCC) Procedures XR ABDOMEN 1V SUPINE RADIOLOGIC EXAM ABDOMEN 1 VIEW Roel Mosley MD [address] [place] [address] Phone: tel: fax: [place] [id number] Referral ID Status Reason Start Date Expiration Date V isits Requested Visits Authorized [id number] Closed Auto-Generate d Referral 11/10/2024 11/09/2025 1 1 [facility] Summary Purpose Family History Relationship Condition Age at Onset Recorded Date/T feng mother Malignant neoplasm of lung Unknown Chronic obstructive pulmonary disease Unk nown Advance Directives Advance Directive Response Recorded Date/ Time Advance Directives No July 14, 2016 7:26am Living Will No August 22, 2021 10:31am Power of Composition Board Press Operator No August 22 10:31am Advance Directive Response Recorded Date/ Time Advance Directives No July 14, 2016 7:26am Living Will No August 22, 2021 2:28pm Power of Composition Board Press Operator No August 22 2:28pm Advance Directive Response Recorded Date/ Time Advance Directives No July 14, 2016 7:26am Living Will No December 13, 2021 3:30pm Power of Composition Board Press Operator No December 13 3:30pm Advance Directive Response Recorded Date/ Time Advance Directives No July 14, 2016 7:26am Living Will No December 13, 2021 7:10pm Power of Composition Board Press Operator No December 13 7:10pm Advance Directive Response Recorded Date/ Time Advance Directives No July 14, 2016 7:26am Living Will No January 04, 2022 10:30pm Power of Composition Board Press Operator No January 04 10:30pm Advance Directive Response Recorded Date/ Time Advance Directives No July 14, 2016 7:26am Living Will No February 19, 2022 2:19pm Power of Composition Board Press Operator No February 2:19pm Advance Directive Response Recorded Date/ Time Advance Directives No July 14, 2016 6:26am Living Will No July 28, 2 023 6:09am Power of Composition Board Press Operator No July 28, 2022 6:09am Advance Directive Response Recorded Date/ Time Advance Directives No July 14, 2016 6:26am Living Will No August 02, 2 023 6:51pm Power of Composition Board Press Operator No August 02, 2022 6:51pm Advance Directive Response Recorded Date/ Time Advance Directives No July 14, 2016 7:26am Living Will No October 19, 2022 9 :18pm Power of Composition Board Press Operator No October 19, 2022 9:18pm Advance Directive Response Recorded Date/ Time Advance Directives No July 14, 2016 7:26am Living Will No December 14, 2022 5:09pm Power of Composition Board Press Operator No December 14 5:09pm Advance Directive Response Recorded Date/ Time Advance Directives No July 14, 2016 7:26am Living Will No December 29, 2022 3:01pm Power of Composition Board Press Operator No December 29 3:01pm Advance Directive Response Recorded Date/ Time Advance Directives No July 14, 2016 7:26am Living Will No January 02, 2023 7:20am Power of Composition Board Press Operator No January 02 7:20am Advance Directive Response Recorded Date/ Time Advance Directives No July 14, 2016 7:26am Living Will No February 22, 2023 12:47pm Power of Composition Board Press Operator No February 12:47pm Advance Directive Response Recorded Date/ Time Advance Directives No July 14, 2016 6:26am Living Will No April 11 3:03am Power of Composition Board Press Operator No April 11, 2023 3:03am Advance Directive Response Recorded Date/ Time Advance Directives No July 14, 2016 6:26am Living Will No May 09 5:04pm Power of Composition Board Press Operator No May 09, 2023 5:04pm Advance Directive Response Recorded Date/ Time Advance Directives No July 14, 2016 6:26am Living Will No May 29, 023 7:45pm Power of Composition Board Press Operator No May 29, 2023 7:45pm Advance Directive Response Recorded Date/ Time Advance Directives No July 14, 2016 6:26am Living Will No August 10, 2023 8:15pm Power of Composition Board Press Operator No August 09 8:15pm Advance Directive Response Recorded Date/ Time Advance Directives No July 14, 2016 7:26am Living Will No August 10, 2023 9:15pm Power of Composition Board Press Operator No August 09 9:15pm Advance Directive Response Recorded Date/ Time Advance Directives No July 14, 2016 7:26am Living Will No September 13, 2023 7:24pm Power of Composition Board Press Operator No September 12 7:24pm Advance Directive Response Recorded Date/ Time Do you have a Healthcare Power of Composition Board Press Operator? No February 06, 2025 6:24pm Advance Directives No July 14, 2016 7:26am Chief Complaint and Reason for Visit Chief Complaint ACUTE PANCREATITIS ACUTE PANCREATITIS Reason for Visit Acute pancreatitis Hypokalemia Chief Complaint ACUTE PANCREATITIS ACUTE PANCREATITIS ACUTE PANCREATITIS ACUTE PANCREATITIS Reason for Visit Acute pancreatitis Hypokalemia Chief Complaint ACUTE PANCREATITIS ACUTE PANCREATITIS ACUTE PANCREATITIS ACUTE PANCREATITIS ACUTE PANCREATITIS PANCREATITIS, HYPOKALEMIA Reason for Visit Acute pancreatitis Hypokalemia Chief Complaint ACUTE PANCREATITIS ACUTE PANCREATITIS ACUTE PANCREATITIS ACUTE PANCREATITIS ACUTE PANCREATITIS PANCREATITIS, HYPOKALEMIA PANCREATITIS, HYPOKALEMIA PANCREATITIS, HYPOKALEMIA PANCREATITIS, HYPOKALEMIA Reason for Visit Acute pancreatitis Hypokalemia Pancreatitis Chief Complaint PANCREATITIS, HYPOKA LEMIA PANCREATITIS, HYPOKALEMIA PANCREATITIS, HYPOKALEMIA PANCREATITIS, HYPOKALEMIA PANCREATITIS, HYPOKALEMIA ABD PAIN Reason for Visit Pancreatitis Chief Complaint PANCREATITIS, HYPOKA LEMIA PANCREATITIS, HYPOKALEMIA PANCREATITIS, HYPOKALEMIA PANCREATITIS, HYPOKALEMIA PANCREATITIS, HYPOKALEMIA ABD PAIN PANCREATITIS PANCREATITIS PANCREATITIS PANCREATITIS PANCREATITIS Reason for Visit Pancreatitis Acute hypokalemia Acute pancreatitis Chief Complaint PANCREATITIS PANCREATITIS Reason for Visit Alcohol abuse Hypokalemia Leukocytosis Nausea & vomiting Pancreatitis Superior mesenteric vein thrombosis Transaminitis Chief Complaint PANCREATITIS PANCREATITIS PANCREATITIS CP PANCREATITIS PANCREATITIS PANCREATITIS PANCREATITIS PANCREATITIS PANCREATITIS PANCREATITIS PANCREATITIS PANCREATITIS PANCREATITIS PANCREATITIS PANCREATITIS PANCREATITIS PANCREATITIS PANCREATITIS Reason for Visit Abnormal magnetic re sonance cholangiopancreatography (MRCP) Alcohol abuse Hypokalemia Hypomagnesemia Leukocytosis Nausea & vomiting Pancreatitis Pleural effusion 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 Thrombosis Transaminitis Chief Complaint PANCREATITIS PANCREATITIS PANCREATITIS CP PANCREATITIS PANCREATITIS PANCREATITIS PANCREATITIS PANCREATITIS PANCREATITIS PANCREATITIS PANCREATITIS PANCREATITIS PANCREATITIS PANCREATITIS PANCREATITIS PANCREATITIS PANCREATITIS PANCREATITIS PANCREATITIS H FU F/U [facility] ABD PAIN 2WKS LABS PRIOR 1MO F/U -LABS- ABDOMINAL PAIN Reason for Visit Alcohol abuse Pancreatitis Portal vein thrombosis Pleural effusion Pancreatitis Portal vein thrombosis Abdominal pain Portal vein thrombosis Hypokalemia Portal vein thrombosis Chief Complaint H FU F/U [facility] ABD PAIN 2WKS LABS PRIOR 1MO F/U -LABS- ABDOMINAL PAIN 1MO LABS 1 DAY PRIOR Acute pancreatitis without necrosis or infection, Reason for Visit Pancreatitis Portal vein thrombosis Abdominal pain Portal vein thrombosis Hypokalemia Portal vein thrombosis Abnormal liver function test Hypokalemia Portal vein thrombosis Chief Complaint F/U [facility] ABD PAIN 2WKS LABS PRIOR 1MO F/U -LABS- ABDOMINAL PAIN 1MO LABS 1 DAY PRIOR Acute pancreatitis without necrosis or infection, PANCREATITIS PANCREATITIS Reason for Visit Abdominal pain Portal vein thrombosis Hypokalemia Portal vein thrombosis Abnormal liver function test Hypokalemia Portal vein thrombosis Abdominal pain Abnormal liver function test Alcohol abuse Bacteriuria Hypertension, accelerated Hypokalemia Transaminitis UTI (urinary tract infection) Pancreatitis Chief Complaint F/U [facility] ABD PAIN 2WKS LABS PRIOR 1MO F/U -LABS- ABDOMINAL PAIN 1MO LABS 1 DAY PRIOR Acute pancreatitis without necrosis or infection, PANCREATITIS PANCREATITIS PANCREATITIS PANCREATITIS PANCREATITIS PANCREATITIS PANCREATITIS PANCREATITIS PANCREATITIS PANCREATITIS PANCREATITIS Reason for Visit Abdominal pain Portal vein thrombosis Hypokalemia Portal vein thrombosis Abnormal liver function test Hypokalemia Portal vein thrombosis Abdominal pain Abnormal liver function test Alcohol abuse Bacteriuria Hypertension, accelerated Hypokalemia Hypomagnesemia Hypoxia Transaminitis UTI (urinary tract infection) CHF exacerbation Pancreatitis Portal vein thrombosis Chief Complaint 2WKS LABS PRIOR ABDOMINAL PAIN 1MO LABS 1 DAY PRIOR Acute pancreatitis without necrosis or infection, PANCREATITIS PANCREATITIS PANCREATITIS PANCREATITIS PANCREATITIS PANCREATITIS PANCREATITIS PANCREATITIS PANCREATITIS PANCREATITIS PANCREATITIS PANCREATITIS F/U [facility] 1MO F/U -LABS- ABD PAIN Reason for Visit Portal vein thrombos is Portal vein thrombosis Portal vein thrombosis Hypertension, accelerated Hypomagnesemia Hypoxia Chief Complaint 2WKS LABS PRIOR ABDOMINAL PAIN 1MO LABS 1 DAY PRIOR Acute pancreatitis without necrosis or infection, PANCREATITIS PANCREATITIS PANCREATITIS PANCREATITIS PANCREATITIS PANCREATITIS PANCREATITIS PANCREATITIS PANCREATITIS PANCREATITIS PANCREATITIS PANCREATITIS F/U [facility] 1MO F/U -LABS- ABD PAIN ABDOMINAL PAIN Reason for Visit Hypertension, accele rated Hypomagnesemia Hypoxia Right upper quadrant abdominal pain Abdominal pain Elevated liver enzymes Gallbladder sludge History of alcohol abuse Intractable abdominal pain Chief Complaint 2WKS LABS PRIOR ABDOMINAL PAIN 1MO LABS 1 DAY PRIOR Acute pancreatitis without necrosis or infection, PANCREATITIS PANCREATITIS PANCREATITIS PANCREATITIS PANCREATITIS PANCREATITIS PANCREATITIS PANCREATITIS PANCREATITIS PANCREATITIS PANCREATITIS PANCREATITIS F/U [facility] 1MO F/U -LABS- ABD PAIN ABDOMINAL PAIN ABDOMINAL PAIN ABDOMINAL PAIN ABDOMINAL PAIN ABDOMINAL PAIN ABDOMINAL PAIN ABDOMINAL PAIN ABDOMINAL PAIN Reason for Visit Hypertension, accele rated Hypomagnesemia Hypoxia Right upper quadrant abdominal pain Abdominal pain Elevated liver enzymes Gallbladder sludge History of alcohol abuse Intractable abdominal pain Chief Complaint ABDOMINAL PAIN 1MO LABS 1 DAY PRIOR Acute pancreatitis without necrosis or infection, PANCREATITIS PANCREATITIS PANCREATITIS PANCREATITIS PREOP PANCREATITIS PANCREATITIS PANCREATITIS PANCREATITIS PANCREATITIS PANCREATITIS PANCREATITIS PANCREATITIS F/U [facility] ABD PAIN ABDOMINAL PAIN ABDOMINAL PAIN ABDOMINAL PAIN ABDOMINAL PAIN ABDOMINAL PAIN ABDOMINAL PAIN ABDOMINAL PAIN ABDOMINAL PAIN ABD PAIN 1MO F/U -LABS- Reason for Visit Portal vein thrombos is Hypertension, accelerated Hypomagnesemia Hypoxia Portal vein thrombosis Portal vein thrombosis Abdominal pain Intractable abdominal pain Elevated liver enzymes Gallbladder sludge Portal vein thrombosis Chief Complaint Acute pancreatitis w ithout necrosis or infection, PANCREATITIS PANCREATITIS PANCREATITIS PANCREATITIS PREOP PANCREATITIS PANCREATITIS PANCREATITIS PANCREATITIS PANCREATITIS PANCREATITIS PANCREATITIS PANCREATITIS F/U [facility] ABD PAIN ABDOMINAL PAIN ABDOMINAL PAIN ABDOMINAL PAIN ABDOMINAL PAIN ABDOMINAL PAIN ABDOMINAL PAIN ABDOMINAL PAIN ABDOMINAL PAIN ABD PAIN 1MO F/U -LABS- abd pain, nausea Reason for Visit Hypertension, accele rated Hypomagnesemia Hypoxia Portal vein thrombosis Portal vein thrombosis Abdominal pain Intractable abdominal pain Elevated liver enzymes Gallbladder sludge Portal vein thrombosis Chief Complaint PANCREATITIS PANCREATITIS PANCREATITIS PANCREATITIS PREOP PANCREATITIS PANCREATITIS PANCREATITIS PANCREATITIS PANCREATITIS PANCREATITIS PANCREATITIS PANCREATITIS F/U [facility] ABD PAIN ABDOMINAL PAIN ABDOMINAL PAIN ABDOMINAL PAIN ABDOMINAL PAIN ABDOMINAL PAIN ABDOMINAL PAIN ABDOMINAL PAIN ABDOMINAL PAIN ABD PAIN 1MO F/U -LABS- abd pain, nausea ABDOMINAL PAIN Reason for Visit Hypertension, accele rated Hypomagnesemia Hypoxia Portal vein thrombosis Portal vein thrombosis Abdominal pain Intractable abdominal pain Elevated liver enzymes Gallbladder sludge Portal vein thrombosis Chief Complaint ABD PAIN 1MO F/U -LABS- abd pain, nausea ABDOMINAL PAIN ABD Reason for Visit Portal vein thrombos is Chief Complaint abd pain, nausea ABDOMINAL PAIN ABD left breast Chief Complaint ABD left breast LEFT BREAST ABSCESS [facility] ER FU 05/29 1WK F/U 06/02 LEFT BREAST ABSCESS [facility] ER FU 05/29 LEFT BREAST ABSCESS [facility] ER FU 05/29 ABD PAIN Reason for Visit Breast abscess Breast abscess Breast abscess Chief Complaint left breast LEFT BREAST ABSCESS [facility] ER FU 05/29 1WK F/U 06/02 LEFT BREAST ABSCESS [facility] ER FU 05/29 LEFT BREAST ABSCESS [facility] ER FU 05/29 ABD PAIN Abd Pain Reason for Visit Breast abscess Breast abscess Breast abscess Chief Complaint Admit Date ABD PAIN February 06, 2025 4:58pm Reason for Referral Specialty Diagnoses / Procedures Referred By Mathew t Referred To Contact Pain Management Diagnoses Alcohol-induced chronic pancreatitis (HCC) Procedures CONSULT TO PAIN MGT Evelia Mak MD [address] [place] [address] Referral ID Status Reason Start Date Expiration Date Visits Requested Visits Authorized [id number] Ref Not Required PCP Requested Referral 01/24/2023 01/24/2024 1 1 Specialty Diagnoses / Procedures Referred By Contac t Referred To Contact Gastroenterology Diagnoses Alcohol-induced chronic pancreatitis (HCC) Procedures CONSULT TO GASTROENTEROLOGY OFFICE/OUTPATIENT [facility] 60-74 MINUTES Evelia Mak MD [address] [place] [address] Referral ID Status Reason Start Date Expiration Date Visits Requested Visits Authorized [id number] Pending Review PCP Requested Referral 01/18/2023 01/18/2024 1 1 Specialty Diagnoses / Procedures Referred By Contac t Referred To Contact MR IMAGING Diagnoses Pancreatitis, necrotizing Procedures MRI 3D POST PROCESSING 3D RENDERING W/INTERP&POSTPROC DIFF WORK STATION Evelia Mak MD [address] [place] [address] Mr Imaging [place] [id number] Referral ID Status Reason Start Date Expiration Date V isits Requested Visits Authorized [id number] Denied Auto-Generate d Referral 09/20/2023 10/19/2024 1 0 Specialty Diagnoses / [facility] MR IMAGING Diagnoses Pancreatitis, necrotizing Procedures MRI PANC/BRYAN WO/W IVCON MRI ABDOMEN W/O & W/CONTRAST MATERIAL Evelia Mak MD [address] [place] [address] Mr Imaging [place] [address] Referral ID Status Reason Start Date Expiration Date V isits Requested Visits Authorized [id number] Denied Auto-Generate d Referral 09/20/2023 10/19/2024 1 0 Medications Administered Section Inactive Administered Medications - up to 3 most recent administrations Medication Order MAR Action Action Date Dose Rate Site fentaNYL 50 mcg/mL 50 mcg injection (SUBLIMAZE) 50 mcg, INTRAVENOUS, EVERY 5 MINUTES NEEDED, 2 doses, Starting on Mon05/08/23 at 1224, Until Mon05/08/23 at 1255, Moderate Pain (4-6) - Parenteral, FIRST LINE THERAPY, Every 5 minutes. Use if patient unable to tolerate oral therapy. Hold for respiratory rate less than 12 Max total dose: 100 mcg, Recovery or Phase I (only) Given 05/08/2023 12:55 PM EST 50 mcg Given 05/08/2023 12:27 PM EST 50 mcg indomethacin 100 mg suppository (INDOCIN) 100 mg, RECTAL, ONCE, 1 dose, On Mon05/08/23 at 1230, REFRIGERATE, If ordered PRN for pain, patient/guardian may elect to receive this medication for higher pain levels INSTEAD of the opioid, if preferred: Yes, Intraprocedure Given 05/08/2023 12:02 PM EST 100 mg lactated ringers iv infusion 5-30 mL/hr, INTRAVENOUS, CONTINUOUS, Starting on Mon05/08/23 at 0830, Until Mon05/08/23 at 1309, Preprocedure New Bag/Syringe/Bottle 05/08/2023 8:33 AM EST 30 mL/hr 30 mL/hr ondansetron (PF) 4 mg injection (ZOFRAN) 4 mg, INTRAVENOUS, NEEDED, 1 dose, Starting on Mon05/08/23 at 1224, Until Mon05/08/23 at 1235, Nausea/Vomiting - Second Line - Parenteral, Give IV push over 2 minutes., Recovery or Phase I (only) Given 05/08/2023 12:35 PM EST 4 mg Additional Source Comments INFORMATION SOURCE (unrecogn ized section and content) DATE CREATED AUTHOR 11/29/2017 [facility] DATE CREATED AUTHOR AUTHOR'S ORGANIZ ATION 03/16/2021 [facility] (ID) DATE CREATED AUTHOR AUTHOR'S ORGANIZ ATION 08/03/2024 [facility] DATE CREATED AUTHOR AUTHOR'S ORGANIZ ATION 10/13/2024 [facility] DATE CREATED AUTHOR AUTHOR'S ORGANIZ ATION 01/24/2025 [facility] Goals (unrecognized section and content) Goals may be documented in a n alternate sectionGoals may be documented in an alternate sectionGoals may be documented in an alternate sectionGoals may be documented in an alternate sectionGoals may be documented in an alternate sectionGoals may be documented in an alternate sectionGoals may be documented in an alternate sectionGoals may be documented in an alternate sectionGoals may be documented in an alternate sectionGoals may be documented in an alternate sectionGoals may be documented in an alternate section Source Comments (unrecognize d section and content) In the event this informatio n is protected by the Federal Confidentiality of Alcohol and Drug Abuse Patient Records regulations: The Federal rules restrict any use of the information to criminally investigate or prosecute any alcohol or drug abuse patient.[facility] the event this information is protected by the Federal Confidentiality of Alcohol and Drug Abuse Patient Records regulations: The Federal rules restrict any use of the information to criminally investigate or prosecute any alcohol or drug abuse patient.[facility] the event this information is protected by the Federal Confidentiality of Alcohol and Drug Abuse Patient Records regulations: The Federal rules restrict any use of the information to criminally investigate or prosecute any alcohol or drug abuse patient.[facility] HospitalIn the event this information is protected by the Federal Confidentiality of Alcohol and Drug Abuse Patient Records regulations: The Federal rules restrict any use of the information to criminally investigate or prosecute any alcohol or drug abuse patient.[facility]In the event this information is protected by the Federal Confidentiality of Alcohol and Drug Abuse Patient Records regulations: The Federal rules restrict any use of the information to criminally investigate or prosecute any alcohol or drug abuse patient.[facility]In the event this information is protected by the Federal Confidentiality of Alcohol and Drug Abuse Patient Records regulations: The Federal rules restrict any use of the information to criminally investigate or prosecute any alcohol or drug abuse patient.[facility] HospitalIn the event this information is protected by the Federal Confidentiality of Alcohol and Drug Abuse Patient Records regulations: The Federal rules restrict any use of the information to criminally investigate or prosecute any alcohol or drug abuse patient.[facility]In the event this information is protected by the Federal Confidentiality of Alcohol and Drug Abuse Patient Records regulations: The Federal rules restrict any use of the information to criminally investigate or prosecute any alcohol or drug abuse patient.[facility] HospitalIn the event this information is protected by the Federal Confidentiality of Alcohol and Drug Abuse Patient Records regulations: The Federal rules restrict any use of the information to criminally investigate or prosecute any alcohol or drug abuse patient.[facility]In the event this information is protected by the Federal Confidentiality of Alcohol and Drug Abuse Patient Records regulations: The Federal rules restrict any use of the information to criminally investigate or prosecute any alcohol or drug abuse patient.[facility] HospitalIn the event this information is protected by the Federal Confidentiality of Alcohol and Drug Abuse Patient Records regulations: The Federal rules restrict any use of the information to criminally investigate or prosecute any alcohol or drug abuse patient.[facility] HospitalIn the event this information is protected by the Federal Confidentiality of Alcohol and Drug Abuse Patient Records regulations: The Federal rules restrict any use of the information to criminally investigate or prosecute any alcohol or drug abuse patient.[facility] HospitalIn the event this information is protected by the Federal Confidentiality of Alcohol and Drug Abuse Patient Records regulations: The Federal rules restrict any use of the information to criminally investigate or prosecute any alcohol or drug abuse patient.[facility] HospitalIn the event this information is protected by the Federal Confidentiality of Alcohol and Drug Abuse Patient Records regulations: The Federal rules restrict any use of the information to criminally investigate or prosecute any alcohol or drug abuse patient.[facility] HospitalIn the event this information is protected by the Federal Confidentiality of Alcohol and Drug Abuse Patient Records regulations: The Federal rules restrict any use of the information to criminally investigate or prosecute any alcohol or drug abuse patient.[facility] HospitalIn the event this information is protected by the Federal Confidentiality of Alcohol and Drug Abuse Patient Records regulations: The Federal rules restrict any use of the information to criminally investigate or prosecute any alcohol or drug abuse patient.[facility] HospitalIn the event this information is protected by the Federal Confidentiality of Alcohol and Drug Abuse Patient Records regulations: The Federal rules restrict any use of the information to criminally investigate or prosecute any alcohol or drug abuse patient.[facility] HospitalIn the event this information is protected by the Federal Confidentiality of Alcohol and Drug Abuse Patient Records regulations: The Federal rules restrict any use of the information to criminally investigate or prosecute any alcohol or drug abuse patient.[facility] HospitalIn the event this information is protected by the Federal Confidentiality of Alcohol and Drug Abuse Patient Records regulations: The Federal rules restrict any use of the information to criminally investigate or prosecute any alcohol or drug abuse patient.[facility] HospitalIn the event this information is protected by the Federal Confidentiality of Alcohol and Drug Abuse Patient Records regulations: The Federal rules restrict any use of the information to criminally investigate or prosecute any alcohol or drug abuse patient.[facility] HospitalIn the event this information is protected by the Federal Confidentiality of Alcohol and Drug Abuse Patient Records regulations: The Federal rules restrict any use of the information to criminally investigate or prosecute any alcohol or drug abuse patient.[facility] HospitalIn the event this information is protected by the Federal Confidentiality of Alcohol and Drug Abuse Patient Records regulations: The Federal rules restrict any use of the information to criminally investigate or prosecute any alcohol or drug abuse patient.[facility] HospitalIn the event this information is protected by the Federal Confidentiality of Alcohol and Drug Abuse Patient Records regulations: The Federal rules restrict any use of the information to criminally investigate or prosecute any alcohol or drug abuse patient.[facility] HospitalIn the event this information is protected by the Federal Confidentiality of Alcohol and Drug Abuse Patient Records regulations: The Federal rules restrict any use of the information to criminally investigate or prosecute any alcohol or drug abuse patient.[facility] HospitalIn the event this information is protected by the Federal Confidentiality of Alcohol and Drug Abuse Patient Records regulations: The Federal rules restrict any use of the information to criminally investigate or prosecute any alcohol or drug abuse patient.[facility] HospitalIn the event this information is protected by the Federal Confidentiality of Alcohol and Drug Abuse Patient Records regulations: The Federal rules restrict any use of the information to criminally investigate or prosecute any alcohol or drug abuse patient.[facility] HospitalIn the event this information is protected by the Federal Confidentiality of Alcohol and Drug Abuse Patient Records regulations: The Federal rules restrict any use of the information to criminally investigate or prosecute any alcohol or drug abuse patient.[facility] HospitalIn the event this information is protected by the Federal Confidentiality of Alcohol and Drug Abuse Patient Records regulations: The Federal rules restrict any use of the information to criminally investigate or prosecute any alcohol or drug abuse patient.[facility] HospitalIn the event this information is protected by the Federal Confidentiality of Alcohol and Drug Abuse Patient Records regulations: The Federal rules restrict any use of the information to criminally investigate or prosecute any alcohol or drug abuse patient.[facility] HospitalIn the event this information is protected by the Federal Confidentiality of Alcohol and Drug Abuse Patient Records regulations: The Federal rules restrict any use of the information to criminally investigate or prosecute any alcohol or drug abuse patient.[facility] HospitalIn the event this information is protected by the Federal Confidentiality of Alcohol and Drug Abuse Patient Records regulations: The Federal rules restrict any use of the information to criminally investigate or prosecute any alcohol or drug abuse patient.[facility] HospitalIn the event this information is protected by the Federal Confidentiality of Alcohol and Drug Abuse Patient Records regulations: The Federal rules restrict any use of the information to criminally investigate or prosecute any alcohol or drug abuse patient.[facility] HospitalIn the event this information is protected by the Federal Confidentiality of Alcohol and Drug Abuse Patient Records regulations: The Federal rules restrict any use of the information to criminally investigate or prosecute any alcohol or drug abuse patient.[facility] HospitalIn the event this information is protected by the Federal Confidentiality of Alcohol and Drug Abuse Patient Records regulations: The Federal rules restrict any use of the information to criminally investigate or prosecute any alcohol or drug abuse patient.[facility] HospitalIn the event this information is protected by the Federal Confidentiality of Alcohol and Drug Abuse Patient Records regulations: The Federal rules restrict any use of the information to criminally investigate or prosecute any alcohol or drug abuse patient.[facility] HospitalIn the event this information is protected by the Federal Confidentiality of Alcohol and Drug Abuse Patient Records regulations: The Federal rules restrict any use of the information to criminally investigate or prosecute any alcohol or drug abuse patient.[facility] HospitalIn the event this information is protected by the Federal Confidentiality of Alcohol and Drug Abuse Patient Records regulations: The Federal rules restrict any use of the information to criminally investigate or prosecute any alcohol or drug abuse patient.[facility] HospitalIn the event this information is protected by the Federal Confidentiality of Alcohol and Drug Abuse Patient Records regulations: The Federal rules restrict any use of the information to criminally investigate or prosecute any alcohol or drug abuse patient.[facility] HospitalIn the event this information is protected by the Federal Confidentiality of Alcohol and Drug Abuse Patient Records regulations: The Federal rules restrict any use of the information to criminally investigate or prosecute any alcohol or drug abuse patient.[facility] HospitalIn the event this information is protected by the Federal Confidentiality of Alcohol and Drug Abuse Patient Records regulations: The Federal rules restrict any use of the information to criminally investigate or prosecute any alcohol or drug abuse patient.[facility] HospitalIn the event this information is protected by the Federal Confidentiality of Alcohol and Drug Abuse Patient Records regulations: The Federal rules restrict any use of the information to criminally investigate or prosecute any alcohol or drug abuse patient.[facility] HospitalIn the event this information is protected by the Federal Confidentiality of Alcohol and Drug Abuse Patient Records regulations: The Federal rules restrict any use of the information to criminally investigate or prosecute any alcohol or drug abuse patient.[facility] Reason for Visit (unrecogniz ed section and content) Reason Comments Patient Update Reason Comments Appointment Referral from Dr. Fr luz Reason Comments Smoking Cessation Reason Comments Consult Obstructed bile duct Specialty Diagnoses / Procedures Referred By Mathew t Referred To Contact [facility] DEPARTMENT Diagnoses MEDICALLY NECESSARY APPTS Procedures NEW PATIENT VISIT LEVEL 1 MEDICALLY NECESSARY [place] [address] Referral ID Status Reason Start Date Expiration Date Visits Requested Visits Authorized [id number] Authorized Financial Clearance Required - Self Pay Patient Cleared - Qualified 100% FAS 01/05/2023 04/06/2023 99 99 Reason Comments Patient Question Reason Comments New Patient Reason Onset Date Comments Refill Request 07/17/2023 Reason Onset Date Comments Refill Request 07/24/2023 Reason Comments Follow Up Follow up block from Dr. 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 Sal Cottrell , DO Emergency Provider Active Dr. Jovanna Leonard DO Admit Provider, Att ending Provider, Other Provider Active Team Status: Active Member Role Status Dates No Primary Care Physician Primary Care Provider Active Dr. Sal Cottrell DO Emergency Provider Active Dr. Jovanna Leonard DO Admit Provider, Attending Provide r Active Team Status: Active Member Role Status Dates No Primary Care Physician Primary Care Provider Active Dr. Sal Cottrell , DO Emergency Provider Active Dr. Jovanna Leonard DO Admit Provider, Other Provider Ac tive Dr. Chandler Salamanca , DO Attending Provider Active Team Status: Active Member Role Status Dates No Primary Care Physician Primary Care Provider Active Dr. Sal Cottrell , DO Emergency Provider Active Dr. Jovanna Leonard DO Admit Provider, Other Provider Ac tive Dr. Monika Crouch MD Other Provider Active Dr. Chandler Salamanca , DO Attending Provider Active Team Status: Active Member Role Status Dates No Primary Care Physician Primary Care Provider Active Dr. Sal Cottrell , DO Emergency Provider Active Dr. Jovanna Leonard , DO Admit Provider, Other Provider Ac tive Dr. Monika Crouch MD Attending Provider, Other Provid er Active Team Status: Active Member Role Status Dates No Primary Care Physician Primary Care Provider Active Dr. Sal Cottrell , DO Emergency Provider Active Dr. Jovanna Leonard , DO Admit Provider, Other Provider Ac tive Dr. Monika Crouch MD Other Provider Active Dr. Jose Francisco Emmanuel MD Other Provider Active Dr. Lonnie Urena MD Other Provider Active Dr. Jose Antonio Krishnamurthy MD Other Provider Active Dr. René Read MD Other Provider Active Dr. Florentin Blanc MD Other Provider Active Dr. Roberto Pagan MD Other Provider Active Dr. Jeovany Gilbert , DO Other Provider Active Joansabi Ballesteros CART ATTENDANT, CART ATTENDANT-C Other Provider Active Dr. Chandler Salamanca , Attending Provider Active Team Status: Active Member Role Status Dates No Primary Care Physician Primary Care Provider Active Dr. Sal Cottrell , DO Emergency Provider Active Dr. Jovanna Leonard , DO Admit Provider, Other Provider Ac tive Dr. Monika Crouch MD Other Provider Active Dr. Jose Francisco Emmanuel MD Other Provider Active Dr. Lonnie Urena MD Attending Provider, Other Provide r Active Dr. Jose Antonio Krishnamurthy MD Other Provider Active Dr. René Read MD Other Provider Active Dr. Florentin Blanc MD Other Provider Active Dr. Roberto Pagan MD Other Provider Active Dr. Jeovany Gilbert , Other Provider Active Joan Favian CART ATTENDANT, CART ATTENDANT-C Other Provider Active Team Status: Active Member Role Status Dates No Primary Care Physician Primary Care Provider Active Dr. Sal Cottrell , DO Emergency Provider Active Dr. Jovanna Leonard , DO Admit Provider, Other Provider Ac tive Dr. Monika Crouch MD Attending Provider, Other Provid er Active Dr. Jose Francisco Emmanuel MD Other Provider Active Dr. Lonnie Urena MD Other Provider Active Dr. Jose Antonio Krishnamurthy MD Other Provider Active Dr. René Read MD Other Provider Active Dr. Florentin Blanc MD Other Provider Active Dr. Roberto Pagan MD Other Provider Active Dr. Jeovany Gilbert , DO Other Provider Active Joan Favian CART ATTENDANT, CART ATTENDANT-C Other Provider Active Team Status: Active Member Role Status Dates No Primary Care Physician Primary Care Provider Active Dr. Paul Duarte MD Attending Provider Active Dr. Chandler Salamanca , Referring Provider Active Team Status: Inactive Member Role Status Dates No Primary Care Physician Primary Care Provider Active Dr. Sal Cottrell , DO Emergency Provider Active Dr. Jovanna Leonard , DO Admit Provider, Other Provider Ac tive Dr. Monika Crouch MD Attending Provider Active Dr. Jose Francisco Emmanuel MD Other Provider Active Dr. Lonnie Urena MD Other Provider Active Dr. Jose Antonio Krishnamurthy MD Other Provider Active Dr. René Read MD Other Provider Active Dr. Florentin Blanc MD Other Provider Active Dr. Roberto Pagan MD Other Provider Active Dr. Jeovany Gilbert , DO Other Provider Active Joan Ballesteros CART ATTENDANT, CART ATTENDANT-C Other Provider Active Team Status: Active Member Role Status Dates No Primary Care Physician Primary Care Provider Active Dr. Sal Cottrell , DO Emergency Provider Active Dr. Jovanna Leonard , DO Admit Provider, Other Provider Ac tive Dr. Chandler Salamanca , Attending Provider Active Dr. Monika Crouch MD Referring Provider Active Team Status: Active Member Role Status Dates No Primary Care Physician Primary Care Provider Active Dr. Sal Cottrell , DO Emergency Provider Active Dr. Jovanna Leonard , DO Admit Provider, Other Provider Ac tive Dr. Monika Crouch MD Referring Provider, Other Provid er Active Dr. Chandler Salamanca DO Attending Provider Active Team Status: Active Member Role Status Dates No Primary Care Physician Primary Care Provider Active Dr. Sal Cottrell , DO Emergency Provider Active Dr. Jovanna Leonard , DO Admit Provider, Other Provider Ac tive Dr. Monika Crouch MD Referring Provider, Other Provid er Active Dr. Jose Francisco Emmanuel MD Other Provider Active Dr. Lonnie Urena MD Other Provider Active Dr. Jose Antonio Krishnamurthy MD Other Provider Active Dr. René Read MD Other Provider Active Dr. Florentin Blanc MD Other Provider Active Dr. Roberto Pagan MD Other Provider Active Dr. Jeovany Gilbert , DO Other Provider Active Joan Ballesteros CART ATTENDANT, CART ATTENDANT-C Other Provider Active Dr. Chandler Salamanca , Attending Provider Active Team Status: Active Member Role Status Dates No Primary Care Physician Primary Care Provider Active Dr. Sal Cottrell , DO Emergency Provider Active Dr. Jovanna Leonard , DO Admit Provider, Other Provider Ac tive Dr. Monika Crouch MD Referring Provider, Other Provid er Active Dr. Jose Francisco Emmanuel MD Other Provider Active Dr. Lonnie Urena MD Attending Provider, Other Provide r Active Dr. Jose Antonio Krishnamurthy MD Other Provider Active Dr. René Read MD Other Provider Active Dr. Florentin Blanc MD Other Provider Active Dr. Roberto Pagan MD Other Provider Active Dr. Jeovany Gilbert , Other Provider Active Joan Ballesteros CART ATTENDANT, CART ATTENDANT-C Other Provider Active Team Status: Inactive Member Role Status Dates No Primary Care Physician Primary Care Provider, Refer ring Provider Active Dr. Chandler Salamanca , Attending Provider Active Team Status: Inactive Member Role Status Dates No Primary Care Physician Primary Care Provider, Refer ring Provider Active Dr. Lonnie Urena MD Attending Provider Active Team Status: Inactive Member Role Status Dates No Primary Care Physician Primary Care Provider Active Baron Smith MD Attending Provider, Emergency Provid er Active Team Status: Active Member Role Status Dates No Primary Care Physician Primary Care Provider Active Dr. Lonnie Urena MD Attending Provider, Referring Pro vider Active Team Status: Inactive Member Role Status Dates No Primary Care Physician Primary Care Provider Active Dr. Jennifer Hastings DO Emergency Provider Active Team Status: Inactive Member Role Status Dates No Primary Care Physician Primary Care Provider Active Dr. Jennifer Hastings DO Attending Provider, Emergency Pro vider Active Team Status: Inactive Member Role Status Dates No Primary Care Physician Primary Care Provider Active Dr. Lonnie Urena MD Attending Provider, Referring Pro vider Active Team Status: Active Member Role Status Dates No Primary Care Physician Primary Care Provider Active Dr. Jake Ackerman DO Emergency Provider Active Dr. Sal Cassidy DO Admit Provider, At tending Provider, Other Provider Active Team Status: Active Member Role Status Dates No Primary Care Physician Primary Care Provider Active Dr. Jake Ackerman DO Emergency Provider Active Dr. Sal Cassidy DO Admit Provider, Attending Provid er Active Team Status: Active Member Role Status Dates No Primary Care Physician Primary Care Provider Active Dr. Chandler Salamanca DO Attending Provider Active Team Status: Active Member Role Status Dates No Primary Care Physician Primary Care Provider Active Dr. Jake Ackerman DO Emergency Provider Active Dr. Sal Cassidy DO Admit Provider, Other Provider A ctive Dr. Chandler Friend , DO Attending Provider Active Team Status: Active Member Role Status Dates No Primary Care Physician Primary Care Provider Active Dr. Kourtney Cortez MD Attending Provider Active Team Status: Inactive Member Role Status Dates No Primary Care Physician Primary Care Provider Active Dr. Jake Ackerman , DO Emergency Provider Active Dr. Sal Cassidy , DO Admit Provider, Other Provider A ctive Dr. Rafael Joseph , DO Attending Provider Active Team Status: Active Member Role Status Dates No Primary Care Physician Primary Care Provider Active Dr. Jake Ackerman , DO Emergency Provider Active Dr. Sal Cassidy , DO Admit Provider, Other Provider A ctive Dr. Rafael Joseph , DO Attending Provider, Other Pro vider Active Team Status: Inactive Member Role Status Dates No Primary Care Physician Primary Care Provider Active Dr. Gianni Perez MD Emergency Provider Active Team Status: Active Member Role Status Dates No Primary Care Physician Primary Care Provider Active Dr. Cong Marquez DO Emergency Provider Active Dr. Caty Flynn MD Admit Provider, Other Provider Active Dr. Sal Cassidy DO Attending Provider Active Team Status: Active Member Role Status Dates No Primary Care Physician Primary Care Provider Active Dr. Cong Marquez DO Emergency Provider Active Dr. Caty Flynn MD Admit Provider, Attending Provider, Other Provider Active Team Status: Active Member Role Status Dates No Primary Care Physician Primary Care Provider Active Dr. Cong Marquez DO Emergency Provider Active Dr. Caty Flynn MD Admit Provider, Other Provider Active Dr. Sal Cassidy DO Other Provider Active Dr. Bisi Alas MD Attending Provider, Other Provi gill Active Team Status: Active Member Role Status Dates No Primary Care Physician Primary Care Provider Active Dr. Cong Marquez DO Emergency Provider Active Dr. Caty Flynn MD Admit Provider, Other Provider Active Dr. Sal Cassidy DO Other Provider Active Dr. Bisi Alas MD Other Provider Active Dr. Chandler Salamanca , Attending Provider Active Team Status: Active Member Role Status Dates No Primary Care Physician Primary Care Provider Active Dr. Cong Marquez DO Emergency Provider Active Dr. Caty Flynn MD Admit Provider, Other Provider Active Dr. Sal Cassidy DO Attending Provider, Other Provid er Active Dr. Bisi Alas MD Other Provider Active Team Status: Inactive Member Role Status Dates No Primary Care Physician Primary Care Provider Active Dr. Cong Andes , DO Emergency Provider Active Dr. Caty Flynn MD Admit Provider, Other Provider Active Dr. Sal Cassidy , Attending Provider Active Dr. Bisi Alas MD Other Provider Active Team Status: Inactive Member Role Status Dates No Primary Care Physician Primary Care Provider Active Dr. Gianni Perez MD Attending Provider, Emergency Provi gill Active Scalloper Relationship Specialty Start Date End Date Chandler Salamanca [address] [place] [address] PCP - General Gastroenterology 01/18/23 Scalloper Relationship Specialty Start Date End Date Chandler Salamanca DO [address] [place] [address] Non Destructive Testing Specialist Gastroenterology 01/24/23 Scalloper Relationship Specialty Start Date End Date Chandler SalamancaDO [address] [place] [address] PCP - General Gastroenterology 01/18/23 01/23/23 Team Status: Active Member Role Status Dates No Primary Care Physician Primary Care Provider Active Dr. Chandler Salamanca , DO Attending Provider Active Dr. Rafael Joseph , DO Referring Provider Active Team Status: Active Member Role Status Dates No Primary Care Physician Primary Care Provider Active Dr. Jake Ackerman , DO Emergency Provider Active Dr. Sal Cassidy , DO Admit Provider, Other Provider A ctive Dr. Chandler Salamanca , DO Attending Provider Active Dr. Rafael Joseph , DO Referring Provider Active Team Status: Active Member Role Status Dates No Primary Care Physician Primary Care Provider Active Dr. Cong Maqruez , DO Emergency Provider Active Dr. Caty Flynn MD Admit Provider, Other Provider Active Dr. Sal Cassidy , DO Referring Provider, Other Provid er Active Dr. Bisi Alas MD Attending Provider, Other Provi gill Active Team Status: Active Member Role Status Dates No Primary Care Physician Primary Care Provider Active Dr. Paul Duarte MD Attending Provider, Referring Pro vider Active Scalloper Relationship Specialty Start Date End Date Chandler Salamanca, DO [address] [facility] [address] [place], [place] [id number] [id number] Non Destructive Testing Specialist Gastroenterology 01/24/23 Scalloper Relationship Specialty Start Date End Date Chandler Salamanca [address] [facility] [address] [place], [place] [id number] Non Destructive Testing Specialist Gastroenterology 01/24/23 Team Status: Active Member Role Status Dates No Primary Care Physician Primary Care Provider Active Dr. Cong Marquez , DO Emergency Provider Active Dr. Caty Flynn MD Admit Provider, Referring Provider, Other Provider Active Dr. Sal Cassidy , DO Other Provider Active Dr. Bisi Alas MD Other Provider Active Dr. Chandler Salamanca DO Attending Provider Active Team Status: Active Member Role Status Dates No Primary Care Physician Primary Care Provider Active Dr. Cong Marquez , DO Emergency Provider Active Dr. Caty Flynn MD Admit Provider, Other Provider Active Dr. Sal Cassidy , DO Referring Provider, Other Provid er Active Dr. Bisi Alas MD Other Provider Active Dr. Chandler Salamanca DO Attending Provider Active Team Status: Inactive Member Role Status Dates No Primary Care Physician Primary Care Provider Active Dr. Ronni Lemos , DO Emergency Provider Active Team Status: Inactive Member Role Status Dates No Primary Care Physician Primary Care Provider Active Dr. Ronni Lemos , DO Attending Provider, Emergency P [place] Active Team Status: Inactive Member Role Status Dates No Primary Care Physician Primary Care Provider Active Dr. Gualberto Sabillon , DO Emergency Provider Active Scalloper Relationship Specialty Start Date End Date Chandler Salamanca, [address] [facility] [address] [place], [place] [id number] Non Destructive Testing Specialist Gastroenterology 01/24/23 Scalloper Relationship Specialty Start Date End Date Chandler SalamancaDO [address] [facility] [address] [place], [place] [id number] [phone] Non Destructive Testing Specialist Gastroenterology 01/24/23 Team Status: Inactive Member Role Status Dates No Primary Care Physician Primary Care Provider Active Dr. Gualberto Sabillon DO Attending Provider, Emergency Provide r Active Team Status: Inactive Member Role Status Dates No Primary Care Physician Primary Care Provider Active Dr. Charles Johansen DO Referring Provider, Emergency Provider Active Team Status: Inactive Member Role Status Dates No Primary Care Physician Primary Care Provider Active Dr. Charles Johansen DO Attending Provid er, Referring Provider, Emergency Provider Active Team Status: Inactive Member Role Status Dates No Primary Care Physician Primary Care Provider Active Dr. Leonel Chu MD Emergency Provider Active Scalloper Relationship Specialty Start Date End Date Jadyn Chandler Andre DO [address] [place] [address] Non Destructive Testing Specialist Gastroenterology 01/24/23 Scalloper Relationship Specialty Start Date End Date Jadyn Chandlermaura Andre DO [address] [place] [address] Non Destructive Testing Specialist Gastroenterology 01/24/23 Scalloper Relationship Specialty Start Date End Date Jadyn Chandler Andre DO [address] [place] [address] Non Destructive Testing Specialist Gastroenterology 01/24/23 Scalloper Relationship Specialty Start Date End Date Jadyn Chandlermaura Andre DO [address] [place] [address] Non Destructive Testing Specialist Gastroenterology 01/24/23 Team Status: Inactive Member Role Status Dates No Primary Care Physician Primary Care Provider, Refer ring Provider Active Dr. Evelia Degroot MD Attending Provider Active Team Status: Inactive Member Role Status Dates No Primary Care Physician Primary Care Provider Active Dr. Evelia Degroot MD Attending Provider, Referr ing Provider Active Team Status: Inactive Member Role Status Dates No Primary Care Physician Primary Care Provider Active Dr. Leonel Chu MD Attending Provider, Emergency Pro vider Active Team Status: Active Member Role Status Dates No Primary Care Physician Primary Care Provider Active Dr. Ivana Frederick MD Attending Provider, Referring Pr ovider Active Team Status: Inactive Member Role Status Dates No Primary Care Physician Primary Care Provider Active Dr. James Wiley , DO Emergency Provider Active Scalloper Relationship Specialty Start Date End Date Chandler SalamancaDO [address] [place], [place] [address]- Non Destructive Testing Specialist Gastroenterology 01/24/23 Team Status: Inactive Member Role Status Dates No Primary Care Physician Primary Care Provider Active Dr. Ivana Frederick MD Attending Provider, Referring Pr ovider Active Team Status: Inactive Member Role Status Dates No Primary Care Physician Primary Care Provider Active Dr. James Wiley , Attending Provider, Emergency P rovigill Active Team Status: Inactive Member Role Status Dates No Primary Care Physician Primary Care Provider Active Dr. Sal Cottrell , DO Emergency Provider Active Scalloper Relationship Specialty Start Date End Date Vicenta Salamancan JesDO [address] [place] [address] Non Destructive Testing Specialist Gastroenterology 01/24/23 Scalloper Relationship Specialty Start Date End Date Vicenta Salamancan JesDO [address] [place] [address] Non Destructive Testing Specialist Gastroenterology 01/24/23 Scalloper Relationship Specialty Start Date End Date Vicenta Salamancan JesDO [address] [place] [address] Non Destructive Testing Specialist Gastroenterology 01/24/23 Scalloper Relationship Specialty Start Date End Date Vicenta Salamancan JesDO [address] [place] [address] Non Destructive Testing Specialist Gastroenterology 01/24/23 Scalloper Relationship Specialty Start Date End Date Jadyn Chandlermaura Andre DO [address] [place] [address] Non Destructive Testing Specialist Gastroenterology 01/24/23 Scalloper Relationship Specialty Start Date End Date Chandler Salamanca DO [address] [place] [address] Non Destructive Testing Specialist Gastroenterology 01/24/23 Scalloper Relationship Specialty Start Date End Date Chandler Salamanca DO [address] [place] [address] Non Destructive Testing Specialist Gastroenterology 01/24/23 Scalloper Relationship Specialty Start Date End Date Chandler Salamanca [address] [place] [address] Non Destructive Testing Specialist Gastroenterology 01/24/23 Scalloper Relationship Specialty Start Date End Date Chandler Salamanca [address] [place] [address] Non Destructive Testing Specialist Gastroenterology 01/24/23 Scalloper Relationship Specialty Start Date End Date Chandler Salamanca [address] [place] [address] Non Destructive Testing Specialist Gastroenterology 01/24/23 Scalloper Relationship Specialty Start Date End Date Chandler Salamanca [address] [place] [address] Non Destructive Testing Specialist Gastroenterology 01/24/23 Scalloper Relationship Specialty Start Date End Date Chandler Salamanca [address] [place] [address] Non Destructive Testing Specialist Gastroenterology 01/24/23 Scalloper Relationship Specialty Start Date End Date Vicenta Salamancakevin Andre DO [address] [place] [address] Non Destructive Testing Specialist Gastroenterology 01/24/23 Scalloper Relationship Specialty Start Date End Date Vicenta Salamancan JesDO [address] [place] [address] Non Destructive Testing Specialist Gastroenterology 01/24/23 Scalloper Relationship Specialty Start Date End Date Jadyn Chandlermaura Andre DO [address] [place] [address] Non Destructive Testing Specialist Gastroenterology 01/24/23 Scalloper Relationship Specialty Start Date End Date Jadyn Chandlermaura Andre DO [address] [place] [address] Non Destructive Testing Specialist Gastroenterology 01/24/23 Scalloper Relationship Specialty Start Date End Date Jadyn Chandlermaura Andre DO [address] [place] [address] Non Destructive Testing Specialist Gastroenterology 01/24/23 Scalloper Relationship Specialty Start Date End Date Jadyn Chandlermaura Andre DO [address] [place] [address] Non Destructive Testing Specialist Gastroenterology 01/24/23 Scalloper Relationship Specialty Start Date End Date Jadyn Chandlermaura Andre DO [address] [place] [address] Non Destructive Testing Specialist Gastroenterology 01/24/23 Scalloper Relationship Specialty Start Date End Date Jadyn Chandler Andre DO [address] [address] Non Destructive Testing Specialist Gastroenterology 01/24/23 Scalloper Relationship Specialty Start Date End Date Chandler Salamanca DO [address] [place] [id number] Non Destructive Testing Specialist Gastroenterology 01/24/23 Team Status: Active Member Role/Relationship Status Dates No Primary Care Physician Primary Care Provider Active Team Status: Inactive Member Role/Relationship Status Dates No Primary Care Physician Primary Care Provider Active Start: February 06, 2025 End: February 06, 2025 Dr. Vandana Pickens MD Emergency Provider Active S tart: February 06, 2025 End: February 06, 2025 Scalloper Relationship Specialty Start Date End Date Vicenta Salamancan DO Jes [address] [id number] Non Destructive Testing Specialist Gastroenterology 01/24/23 Inactive Administered Medications - up to 3 most recent administrations Administered Medications (un recognized section and content) Medication Order MAR Action Action Date Dose Rate Site fentaNYL 50 mcg/mL 50 mcg injection (SUBLIMAZE) 50 mcg, INTRAVENOUS, ONCE, 1 dose, On Marta 08/10/23 at 1130 Given 08/10/2023 11:02 AM EST 50 mcg indomethacin 100 mg suppository (INDOCIN) 100 mg, RECTAL, ONCE, 1 dose, On Marta 08/10/23 at 0900, REFRIGERATE, If ordered PRN for pain, patient/guardian may elect to receive this medication for higher pain levels INSTEAD of the opioid, if preferred: Yes, Intraprocedure Given 08/10/2023 8:42 AM EST 100 mg lactated ringers iv infusion 30 mL/hr, INTRAVENOUS, CONTINUOUS, Starting on Marta 08/10/23 at 0800, Until Marta 08/10/23 at 0915, Preprocedure New Bag/Syringe/Bottl e 08/10/2023 7:52 AM EST 30 mL/hr 30 mL/hr lactated ringers iv infusion 125 mL/hr, INTRAVENOUS, CONTINUOUS, Starting on Marta 08/10/23 at 0930, Until 08/11/23 at 0431, Recovery or Phase I (only) Rate Verify 08/10/2023 9:30 AM EST 125 mL/hr 125 mL/hr oxyCODONE IR 5 mg tab(s) (ROXICODONE) 5 mg, ORAL, NEEDED, 1 dose, Starting on Marta 08/10/23 at 0917, Until Marta 08/10/23 at 1031, Moderate Pain (4-6) - Enteral, Recovery or Phase I (only) Given 08/10/2023 10:31 AM EST 5 mg FOR RECORDS PERTAINING TO PATIENTS WHO ARE [...] BE BASED ON THE PRIMARY CLINICAL RECORDS. [employer] [facility]. provides no warranty or guarantee of the accuracy or completeness of information in this document.
--- NOTE | 2025-02-08 12:09 | CT_ITS ---
EXAM: CT Abdomen and Pelvis With Intravenous Contrast CLINICAL INDICATION: PANCREATITS TECHNIQUE: Axial computed tomography images of the abdomen and pelvis with intravenous contrast. This CT exam was performed using one or more of the following dose reduction techniques: automated exposure control, adjustment of the mA and/or kV according to patient size, and/or use of iterative reconstruction technique. COMPARISON: CT Abdomen Pelvis dated 02/06/2025 FINDINGS: LUNG BASES: Unremarkable. No mass. No consolidation. MEDIASTINUM: Small esophageal hiatal hernia. ABDOMEN: LIVER: Hepatomegaly with fatty infiltration. Stable extrahepatic and intrahepatic ductal dilatation as well as pancreatic ductal dilatation. GALLBLADDER AND BILE DUCTS: See above. PANCREAS: See above. SPLEEN: Unremarkable. No splenomegaly. ADRENALS: Unremarkable. No mass. KIDNEYS AND URETERS: Unremarkable. No stones within either kidney. No hydronephrosis. STOMACH AND BOWEL: Fecal retention in the colon consistent with constipation. No obstruction. No mucosal thickening. PELVIS: APPENDIX: No findings to suggest acute appendicitis. BLADDER: Unremarkable. No mass. REPRODUCTIVE: Unremarkable as visualized. ABDOMEN and PELVIS: INTRAPERITONEAL SPACE: Unremarkable. No free air. No significant fluid collection. BONES/JOINTS: No acute fracture. No dislocation. SOFT TISSUES: Umbilical hernia containing fat. VASCULATURE: Unremarkable. No abdominal aortic aneurysm. LYMPH NODES: Unremarkable. No enlarged lymph nodes. CT/Abdomen/Pelvis W IV Cont ONLY IMPRESSION: 1. Small esophageal hiatal hernia. 2. Hepatomegaly with fatty infiltration. 3. Fecal retention in the colon consistent with constipation. 4. Umbilical hernia containing fat. 5. No obstructive uropathy. 6. Stable extrahepatic and intrahepatic ductal dilatation as well as pancreati c ductal dilatation. 7. no CT evidence of acute pancreatitis. No pseudocyst or abscess. No perfor ation. Reading Location: [id number]
[2025-02-08 12:10] LABS: Hematocrit 34.7 % (37-47); Hemoglobin 11.7 g/dL (12.0-15.0); Immature Granulocytes Count 0.010 X10^3/uL (0.0-0.0); Mean Corp Hgb Conc 33.7 g/dL (32-36); Mean Corpuscular Volume 87.2 fL (81-99); Mean Platelet Vol. 9.4 fl (6.2-12.0); NRBC Flagged by Analyzer 0 % (0-5); Platelet Count 267 K/mm3 (150-450); RBC Distribution Width CV 12.8 % (11.6-14.6); RBC Distribution Width SD 40.9 fl (35.1-43.9); Red Blood Count 3.98 M/mm3 (4.2-5.4); White Blood Count 6.4 K/mm3 (4.4-11.0)
[2025-02-08] MEDS: 0.9% Normal Saline (1000mL) 1,000 ML 999 ML IV (12:14)
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
[2025-02-08 12:55] LABS: AST(SGOT) 15 U/L (<=31); Alanine Aminotransfer ALT/SGPT 10 U/L (<=34); Albumin, Serum 4.1 g/dL (3.5-5.0); Alkaline Phosphatase 78 U/L (35-104); Anion Gap 11 (5-15); BUN 12 mg/dL (4-19); BUN/Creat Ratio 17.0 RATIO (10-20); Calcium,Total 9.1 mg/dL (7.6-11.0); Carbon Dioxide 25.3 mmol/L (21.0-32.0); Chloride 101 mmol/L (98-108); Estimated Creatinine Clearance 88.91 ml/min (50-250); Globulin 2.6 g/dL (2.2-4.2); Glucose 110 mg/dL (70-99); Lipase 257 U/L (13-75); Potassium 4.4 mmol/L (3.3-5.1)
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
--- OUTSIDE RECORDS SUMMARY | 2025-02-08 17:36 | XMS RPT_ITS | CCD ---
Author Organization [facility] CliniSyil Care Team Providers Care Account Analyst Name Role Phone WILFRIDO TOLEDO Unavailable Unavailable TOLEDOWILFRIDO C Unavailable Unavailable TOLEDO, WILFRIDO Sam Unavailable Unavailable NO, DOCTOR ON Unavailable Unavailable NO, DOCTOR ON Unavailable Unavailable Care Physician, No Primary Primary Care Provider Unavailable Dr. Sal Cottrell Emergency Provider Dr. Karin Mckeon Admit Provider Dr. Karin Mckeon Attending Provider Dr. Karin Mckeon Other Provider Dr. Rafael Joseph Attending Provider Dr. Rafael Joseph Other Provider Dr. Charles Johansen Emergency Provider Dr. Rafael Joseph Admit Provider Dr. Gertrudis [...] [phone] Dr. Paul Duarte Attending Provider Friend, Dr. Arteaga Referring Provider [phone] Dr. Monika Crouch Attending Provider Dr. Monika Crouch Other Provider Dr. Jose Francisco Emmanuel Other Provider Dr. Lonnie Urena Other Provider Dr. Jose Antonio Krishnamurthy Other Provider Dr. René Read Other Provider Dr. Florentin Blanc Other Provider Unavailable Dr. Roberto Pagan Other Provider Dr. Jeovany Gilbert Other Provider Favian SENIOR PROCESS ENGINEER, SENIOR PROCESS ENGINEER-C Joan Other Provider Dr. Lonnie Urena Attending Provider Care Physician, No Primary Primary Care Provider Unavailable Dr. Sal Cottrell Emergency Provider Dr. Jovanna Leonard Admit Provider Dr. Jovanna Leonard Attending Provider Dr. Jovanna Leonard Other Provider Dr. Chandler Salamanca Attending Provider Dr. Monika Crouch Referring Provider Dr. Paul Duarte Attending Provider Dr. Chandler Salamanca Referring Provider [phone] Dr. Monika Crouch Attending Provider Dr. Monika Crouch Other Provider Dr. Jose Francisco Emmanuel Other Provider Dr. Lonnie Urena Other Provider Dr. Jose Antonio Krishnamurthy Other Provider Dr. René Read Other Provider Dr. Florentin Blanc Other Provider Unavailable Dr. Roberto Pagan Other Provider Dr. Jeovany Gilbert Other Provider Favian SENIOR PROCESS ENGINEER, SENIOR PROCESS ENGINEER-C Joan Other Provider Dr. Lonnie Urena Attending Provider Care Physician, No Primary Referring Provider Un available Care Physician, No Primary Primary Care Provider Unavailable Dr. Chandler Salamanca Attending Provider Dr. Lonnie Urena Attending Provider Care [...] available Dr. Lonnie Urena Attending Provider Dr. Rafael Joseph Attending Provider Dr. Rafael Joseph Other Provider Dr. Cong Marquez Emergency Provider Dr. Caty Flynn Admit Provider Dr. Caty Flynn Attending Provider Dr. Caty Flynn Other Provider Dr. Bisi Alas Attending Provider Dr. Bisi Alas Other Provider Unavailable Primary Care Provider Unavailabl e Chandler Salamanca DO Primary Care Provider Chandler Salamanca DO Unavailable Chandler Salamanca DO Primary Care Provider Care Physician, No Primary Primary Care Provider Unavailable Care Physician, No Primary Referring Provider Un available Prafior, Dr. Fleming Attending Provider Dr. Rafael Joseph Referring Provider Dr. Paul Duarte Attending Provider [phone] Paul Duarte Referring Provider Dr. Sal Cassidy Referring Provider Care Physician, No Primary Primary Care Provider Unavailable Care Physician, No Primary Referring Provider Un available Prafior, Dr. Fleming Attending Provider Dr. Caty Flynn Referring Provider Care Physician, No Primary Primary Care Provider Unavailable Pay, Dr. Joseph Emergency Provider Dr. Sal Cassidy Admit Provider Dr. Sal Cassidy Attending Provider Dr. Sal Cassidy Other Provider Dr. Chandler Salamanca Attending Provider Dr. Rafael Joseph Referring Provider Dr. Paul uDarte Attending Provider [phone] Paul Duarte Referring Provider [phone] Kourtney Cortez Attending Provider Dr. Rafael Joseph Attending Provider Dr. Rafael Joseph Other Provider Care Physician, No Primary Referring Provider Un available Prafior, Dr. Fleming Attending Provider Dr. Cong Marquez Emergency Provider [...] available Dr. Evelia Degroot Attending Provider [phone] Dr. Evelia Degroot Referring Provider [phone] Care Physician, No Primary Primary Care Provider [...] Care Unava ilable James Wiley Attending Unavailable Basali, Ivana Attending Unavailable Care Physician, No Primary Primary Care Unava ilable ReodicBaron celestin Attending Unavailable Care Physician, No Primary Primary Care Unava ilable Care Physician, No Primary Referring Unava ilable Care Physician, No Primary Primary Care Unava ilable Bartolo Hines Attending Unavailable Care Physician, No Primary Primary Care Unava ilable Ivana Frederick Attending Unavailable Otoniel, Ivana Referring Unavailable Care Physician, No Primary Primary Care Unava ilable Otoniel, Ivana Attending Unavailable Basalmiki, Ivana Referring Unavailable Jose Francisco Clark Attending Unavailable Care Physician, No Primary Primary Care Unava ilable Jose Francisco Clark Admitting Unavailable Jose Francisco Clark Consulting Unavailable ROEL MOSLEY Attending Unavaila CARLOS Garcia Referring Unavailable CARLOS DAVIS Attending Unavailable CARLOS DAVIS Referring Unavailable EVELIA AMK Attending Unavailable ISSROEL SAINI Referring Unavaila ble ISSAKROEL Attending Unavaila ble ISSAKROEL Referring Unavaila ble ISSAKROEL Attending Unavaila ble ISSAKROEL Referring Unavaila ble ISSAK, ROEL CRESPO Attending Unavaila ble ISSAK, ROEL CRESPO Referring Unavaila ble ISSAK, ROEL CRESPO Referring Unavaila ble ISSAK, ROEL CRESPO Attending Unavaila ble ISSAK, ROEL CRESPO Attending Unavaila ble ISSAK, ROEL CRESPO Referring Unavaila ble VIANCA CHAPPELL Attending Unavailable Care Physician, No Primary Primary Care Provider Unavailable Nelia TEMPLETON, Dr. Ross Emergency Provider Unavail Dr. Carroll James DO Emergency Provider Miko TEMPLETON, Dr. Frakn Attending Provider Medications Current Medications Medication Drug Class(es) Dates Sig (Normalized) Sig (Original) acetaminophen 500 mg oral tablet (20 sources) Start: 05-12-2023 take 2 tablets by mouth every six hours acetaminophen (TYLENOL) 500 mg tablet Take 2 tablets by mouth every 6 hours. 05/12/2023 Active Start: 12-14-2022 take 1 tablet by aleah every six hours as needed for pain [...] NMA TOPICAL DAILY January 13, 2024 12:00am End: 07-03-2024 apply 1 dose transdermal route every week buprenorphine (BUTRANS) 15 mcg/hour patch Apply 1 Patch as directed one time a week. 07/03/2024 Discontinued [place] (Nk) (1 source) Start: 08-22-2021 [place] (Nk) Active August 22, 2021 12:00am oxyCODONE [...] EST 07/18/2024 07/21/2024 Active Start: 04-09-2024 End: 02-08-2025 take 1 tablet by mouth every six hours as needed for pain Oxycodone 5 mg tablet Discontinued 5 mg PO EVERY 6 HOURS NEEDED as needed for pain April 10, 2024 1:00am February 08, 2025 2:13pm Start: 08-10-2023 End: 01-13-2024 take 1 tablet [...] while taking this medication polyethylene glycol 3350 [id number] mg / potassium chloride 2970 mg / sodium bicarbonate 6740 mg / sodium chloride 5860 mg / sodium sulfate 93348 mg powder for oral solution (1 source) [...] 10 mL PO TWICE A DAY 600 30 February 22, 2022 11:53am July 28, 2022 11:16am Comment on above: Take 10 mL by mouth twice daily for 21 days. Take 10 mL by mouth twice daily. Completed/Discontinued Medications Medication Drug Class(es) Dates Sig (Normalized) Sig (Original) acetaminophen 325 mg / oxyCODONE hydrochloride 5 mg oral tablet (7 sources) Opioid Agonist Start: 05-29-2023 End: 06-15-2023 [...] Tablet Disc ontinued 10 mg PO DAILY 30 February 22, 2022 12:00am August 05, 2022 [...] tablet Discontinued 1 {tbl} PO Q12H 20 0 June 14, 2013 1:00am July 08, 2013 11:01am amylase [id number] unt / lipase 87360 unt / protease 58945 unt delayed release oral capsule (20 sources) Start: 04-11-2023 End: 01-13-2024 Lrvvrr-Lmfcmldr-Fpszoyp [Kwtxgu-Bjqdtiam-Mbmfav e 24,000-76,000-120,000 Unit Capsule,Delayed Rel] (Oqfiuy-Aeqceeez-Xwmenh e 24,000-76,000-120,000 Unit ) 24,000-76,000 -120,000 unit capsule,delayed release(DR/EC) Discontinued 1 NMA PO THREE TIMES A DAY April 11, 2023 1:00am January 13, 2024 4:59am Start: 08-10-2022 lipase-proteas e-amylase (CREON 24) 24,000-76,000 -120,000 unit delayed release capsule Take by mouth. 0 08/10/2022 Active Start: 08-10-2022 End: 02-22-2023 take [id number] capsules by mouth three times daily Kxzrym-Tzpprecm-Qdubbzw (Creon) 24,000-76,000 -120,000 unit capsule,delayed release(DR/EC) Discontinued [...] iv infusion ciprofloxacin 500 mg oral tablet (6 sources) Quinolone Antimicrobial Start: 06-02-2023 End: 06-12-2023 [...] on above: Take [address] [facility] four times daily. dicyclomine hydrochloride 10 mg oral capsule (14 sources) Anticholinergic Start: 01-13-2024 End: 04-10-2024 take [...] 12:56pm docusate sodium 50 mg / sennosides, intermediate 8.6 mg oral tablet (20 sources) Start: 02-22-2022 End: 02-22-2023 Sennosides-Docusate Sodium (Stool Softener-Stimulant Laxat) 8.6-50 mg Tablet Discontinued 2 {tbl} PO TWICE A DAY as needed for constipation December 14, 2022 12:00am February 22, 2023 12:57pm Comment on above: take 2 tablets by mo ut twice a day for 30 DAYS 1 [...] mL syringe Discontinued 90 mg SC Q24H 30 3 October 20, 2022 8:48am December 29, 2022 [...] 5 MINUTES NEEDED, 2 doses, Starting on Tu05/21/24 at 1001, Until Mon05/21/24 at 1038, FIRST LINE THERAPY for pain [...] Comment on above: Take 2 tablets by [facility] twice daily. 1 ml HYDROmorphone hydrochloride 2 [...] 0 MINUTES NEEDED, 4 doses, Starting on 04/09/24 at 1001, Until 04/10/24 at 0416, SECOND LINE THERAPY for pain [...] 0 Active take 1 tablet by aleah every six hours as needed ibuprofen (MOTRIN) [...] 04-09-2024 100 mg, RECTAL, DIRECTED, Starting on Mon04/09/24 at 0900, Until Mon04/09/24 at 1259, Dosing as directed for intraprocedural [...] Discontinued 5 mg PO DAILY 30 30 3 August 05, 2022 1:00am December 21, 2022 [...] on above: TAKE 1 TABLET BY ALEAH EVERY 6 HOURS 30 MINUTES BEFORE A [...] Comment on above: Take 1 capsule by [facility] once daily for 21 days. Take 40 mg by mouth once daily. ondansetron 4 mg disintegrating oral tablet (20 sources) Serotonin-3 Receptor Antagonist Start: End: take 1 tablet by mouth [...] potassium 99 mg extended release oral tablet (16 sources) Start: 2022 End: 2022 take 1 [...] 1 tbsp PO THREE TIMES A DAY August 05, 2022 1:00am December 14, 2022 3:29pm mix into at least 8 oz of water or juice before administering. OBTAIN OVERT THE COUNTER Comment on above: MIX 1 TBSP INTO AT L EAST 8 OZ OF WATER OR JUICE THREE TIMES A DAY 72 hr scopolamine 0.0139 mg/hr transdermal system (18 sources) Anticholinergic Start: 08-10-2022 End: 12-14-2022 Scopolamine [...] pain; Translations: [Unspecified abdominal pain] Onset: 3 08-23-2022 Episodic Comment on above: R/O recurrent pancre atitis Administrative/social admission (2 sources) Patient encounter status; Translations: [Encounter for pre-employment examination] 08-01-2024 Episodic Alcohol-related disorders (20 sources) Alcohol abuse; Translations: [Alcohol abuse, uncomplicated] Onset: 3 07-28-2022 Chronic Anxiety disorders (20 sources) Panic disorder without agoraphobia; Translations: [Panic disorder [episodic paroxysmal anxiety]] Onset: 6 10-29-2005 Chronic Biliary tract disease (20 sources) Biliary stricture; Translations: [Obstruction of bile duct] Onset: 4 01-04-2023 Chronic Biliary tract disease (19 sources) Biliary sludge; Translations: [Other specified diseases [...] [Hypokalemia] Episodic Genitourinary symptoms and ill-defined conditions (18 sources) Bacteriuria; Translations: [Bacteriuria] 12-14-2022 Episodic Nausea and vomiting (4 sources) Nausea and vomiting; Translations: [Nausea with vomiting, unspecified] 07-28-2022 Episodic Nonmalignant breast conditions (20 sources) Inflammatory disorder of breast; Translations: [Mastitis without abscess] 03-07-2021 Episodic Other circulatory disease (2 sources) Elevated blood-pressure reading without diagnosis of hypertension; Translations: [Elevated blood-pressure reading, without diagnosis of hypertension] 01-21-2024 Episodic Other gastrointestinal disorders (2 sources) Constipation; Translations: [Constipation, unspecified] 06-02-2024 Episodic Other injuries and conditions due to external causes (20 sources) Post-traumatic wound infection; Translations: [Infected piercing of trunk] 03-07-2021 Episodic Other liver diseases (20 sources) Enzyme level - finding; Translations: [Elevated transaminase measurement] 07-28-2022 Episodic Other liver diseases (14 sources) Aspartate aminotransferase serum level raised; Translations: [High aspartate aminotransferase level] 12-29-2022 Episodic Other liver diseases (14 sources) High lipase level in serum; Translations: [Abnormal levels of other serum enzymes] 12-29-2022 Episodic Other liver diseases (13 sources) Elevated liver enzymes level; Translations: [Abnormal levels of other serum enzymes] 01-02-2023 Episodic Other liver diseases (5 sources) Abnormal levels of other serum enzymes; Translations: [Other nonspecific abnormal serum enzyme levels] 01-02-2023 Episodic Other lower respiratory disease (15 sources) Hypoxia; Translations: [Hypoxemia] 12-18-2022 Episodic Other lower respiratory disease (7 sources) Hypoxemia; Translations: [Hypoxemia] 12-21-2022 Episodic Other nutritional; endocrine; and metabolic disorders (16 sources) Hypomagnesemia; Translations: [Hypomagnesemia] 07-29-2022 Chronic Other [...] 3 01-24-2023 Chronic Pancreatic disorders (not diabetes) (20 sources) Acute pancreatitis; Translations: [Acute pancreatitis without necrosis or infection, unspecified] Onset: 3 Episodic Peripheral and visceral atherosclerosis (4 sources) Superior mesenteric vein thrombosis ; Translations: [Acute infarction of intestine, part and extent unspecified] 07-28-2022 Episodic Phlebitis; thrombophlebitis and thromboembolism (20 sources) Portal vein thrombosis; Translations: [Portal vein thrombosis] Onset: 3 08-02-2022 Episodic Comment on above: CTA on 01/23/2023 rev iewed, shows resolution of Portal vein thrombus. Pleurisy; pneumothorax; pulmonary collapse (20 sources) Pleural [...] implants] Onset: 4 Chronic Residual codes; unclassified (2 sources) Device in situ; Translations: [Presence of other specified functional implants] 04-10-2024 Chronic Residual codes; unclassified (3 sources) Past history of procedure; Translations: [Other specified postprocedural states] 09-13-2023 Episodic Residual codes; unclassified (2 sources) Tobacco use and exposure - finding; Translations: [Tobacco use] 04-10-2024 Episodic Substance-related disorders (20 sources) Nicotine dependence, unspecified, uncomplicated; Translations: [Nicotine dependence] Onset: 7 05-08-2023 Chronic Unclassified (1 source) Established Patient Onset: 4 Urinary tract infections (20 sources) Urinary tract infectious disease; Translations: [Urinary tract infection, site not specified] 10-20-2022 Episodic Past or Other Problems Problem Classification Problem Date Documented Date Episodic/Chronic Inflammation; infection of eye (except that caused [...] unspecified; Translations: [Sore throat] Onset: 10-24-2024 Episodic Residual codes; unclassified (16 sources) Tobacco user; Translations: [Tobacco use] Onset: 04-09-2024 04-09-2024 Episodic Residual codes; unclassified (1 source) Tobacco use; Translations: [Tobacco use] Onset: 04-11-2024 Episodic Substance-related disorders (1 source) Opioid use, unspecified, uncomplicated; Translations: [Opioid use, unspecified, uncomplicated] Onset: 08-14-2023 Episodic Results Test Name Value Interpretation Reference Range Facility Absolute lymphocyte countOrd ered By: Carroll Lovell on 02-08-2025 Lymphocytes Auto (Unsp spec) [#/Vol] 1.68 10*3/uL 0.83-4.51 [facility] Absolute neutrophil countOrd ered By: Carroll Lovell on 02-08-2025 Neutrophils (Bld) [#/Vol] 4.1 10*3/uL 2.0-7.7 [facility] Anion gap in Serum or Plasma Ordered By: Carroll Lovell on 02-08-2025 Anion gap [Moles/Vol] 11 mmol/L 5-15 [facility] Automated lymphocyte count a s percentage of total leukocytesOrdered By: Carroll Lovell on 02-08-2025 Lymphocytes/100 WBC Auto (Unsp spec) 26.1 % 19-41 [facility] BUN/creatinine ratioOrdered By: Carroll Lovell on 02-08-2025 Urea nitrogen/Creatinine [Mass ratio] 17.0 mg/mg 10-20 [facility] Basophil percentageOrdered B y: Carroll Lovell on 02-08-2025 Basophils/100 WBC (Bld) 0.6 % 0-1 [facility] Bilirubin, totalOrdered By: Carroll Lovell on 02-08-2025 Bilirubin [Mass/Vol] 0.21 mg/dL 0.00-1.30 [facility] Carbon dioxide, total [Moles /volume] in Central venous bloodOrdered By: Carroll Lovell on 02-08-2025 CO2 [Moles/Vol] 25.3 mmol/L 21.0-32.0 [facility] Chloride assayOrdered By: Drew Lovell on 02-08-2025 Chloride [Moles/Vol] 101 mmol/L 98-108 [facility] Eosinophil percentageOrdered By: Carroll Lovell on 02-08-2025 Eosinophils/100 WBC (Bld) 3.1 % 0-5 [facility] Erythrocyte distribution wid th ratioOrdered By: Carroll Lovell on 02-08-2025 Erythrocyte distribution width (RBC) [Ratio] 12.8 % 11.6-14.6 [facility] Erythrocyte distribution wid th standard deviationOrdered By: Carroll Lovell on 02-08-2025 Erythrocyte distribution width (RBC) [Ratio] 40.9 fl 35.1-43.9 [facility] Glomerular filtration rate ( GFR) estimation/1.73 sq m using serum, plasma, or whole bOrdered By: Carroll Lovell on 02-08-2025 GFR/1.73 sq M.predicted among non-blacks MDRD (S/P/Bld) [Vol rate/Area] 109 mL/min/{1.73_m2} >60 [facility] Comment on above: mL/min/1.73m2 CKD-EP I Creatinine Equation (2020) Hematocrit Auto (Bld) [Volum e fraction]Ordered By: Carroll Lovell on 02-08-2025 Hematocrit (Bld) [Volume fraction] 34.7 % Low 37-47 [facility] Hemoglobin measurementOrdere d By: Carroll Lovell on 02-08-2025 Hemoglobin (Bld) [Mass/Vol] 11.7 g/dL Low 12.0-15.0 [facility] Immature granulocytes/100 WB C Auto (Bld)Ordered By: Carroll Lovell on 02-08-2025 Immature granulocytes/100 WBC (Bld) 0.200 % 0.0-0.9 [facility] Comment on above: IG% - Immature Granu locytes (promyelocytes, myelocytes and metamyelocytes) > 1% indicates that a LEFT SHIFT is Present. Laboratory - Chemistry and C hemistry - challengeOrdered By: Carroll Lovell on 02-08-2025 AST [Catalytic activity/Vol] 15 U/L <32 [facility] Lipase measurementOrdered By : Carroll Lovell on 02-08-2025 Lipase [Catalytic activity/Vol] 257 U/L High 13-75 [facility] Comment on above: Please note:LIPASE r evised reference range effective 22. New Lipase methodology. Expected to produce lower values than the previous assay method. NEW Reference Range: 13 - 75 U/L MCV (mean corpuscular volume ) determinationOrdered By: Carroll Lovell on 02-08-2025 MCV (RBC) [Entitic vol] 87.2 fL 81-99 [facility] Mean corpuscular hemoglobin (MCH) determinationOrdered By: Carroll Lovell on 02-08-2025 MCH (RBC) [Entitic mass] 29.4 pg 27.0-32.0 [facility] Mean corpuscular hemoglobin concentration (MCHC) determinationOrdered By: Carroll Lovell on 02-08-2025 MCHC (RBC) [Mass/Vol] 33.7 g/dL 32-36 [facility] Mean platelet volume determi nationOrdered By: Carroll Lovell on 02-08-2025 Platelet mean volume (Bld) [Entitic vol] 9.4 fL 6.2-12.0 [facility] Monocyte percentageOrdered B y: Carroll Lovell on 02-08-2025 Monocytes/100 WBC (Bld) 7.0 % 0-10 [facility] Neutrophil percentageOrdered By: Carroll Lovell on 02-08-2025 Neutrophils/100 WBC (Bld) 63.0 % 47-70 [facility] Nucleated red blood cell per centageOrdered By: Carroll Lovell on 02-08-2025 Nucleated RBC/100 WBC (Bld) [Ratio] 0 % 0-5 [facility] Platelet countOrdered By: Drew Lovell on 02-08-2025 Platelets (Bld) [#/Vol] 267 10*3/uL 150-450 [facility] Potassium measurement (mass/ volume)Ordered By: Carroll Lovell on 02-08-2025 Potassium (Unsp spec) [Mass/Vol] 4.4 mmol/L 3.3-5.1 [facility] RBC Auto (Bld) [#/Vol]Ordere d By: Carroll Lovell on 02-08-2025 RBC (Bld) [#/Vol] 3.98 10*6/uL Low 4.2-5.4 [facility] Serum creatinine measurement (mass/volume)Ordered By: Carroll Lovell on 02-08-2025 Creatinine [Mass/Vol] 0.69 mg/dL Low 0.70-1.20 [facility] Serum globulin measurementOr dered By: Carroll Lovell on 02-08-2025 Globulin (S) [Mass/Vol] 2.6 g/dL 2.2-4.2 [facility] Serum glucose measurement (m ass/volume)Ordered By: Carroll Lovell on 02-08-2025 Glucose [Mass/Vol] 110 mg/dL High 70-99 [facility] Serum or plasma alanine lobo otransferase (ALT) measurementOrdered By: Carroll Lovell on 02-08-2025 ALT [Catalytic activity/Vol] 10 U/L <35 [facility] Serum or plasma albumin emma urement (mass/volume)Ordered By: Carroll Lovell on 02-08-2025 Albumin [Mass/Vol] 4.1 g/dL 3.5-5.0 [facility] Serum or plasma albumin/glob ulin mass ratioOrdered By: Carroll Lovell on 02-08-2025 Albumin/Globulin [Mass ratio] 1.6 {ratio} 0.9-2.4 [facility] Serum or plasma alkaline porfirio sphatase measurementOrdered By: Carroll Lovell on 02-08-2025 ALP [Catalytic activity/Vol] 78 U/L 35-104 [facility] Serum or plasma calcium emma urement (mass/volume)Ordered By: Carroll Lovell on 02-08-2025 Calcium [Mass/Vol] 9.1 mg/dL 7.6-11.0 [facility] Serum or plasma urea nitroge n measurement (mass/volume)Ordered By: Carroll Lovell on 02-08-2025 Urea nitrogen [Mass/Vol] 12 mg/dL 4-19 [facility] Sodium levelOrdered By: Lucas Lovell on 02-08-2025 Sodium [Moles/Vol] 137 mmol/L 133-145 [facility] Total proteinOrdered By: Marce Lovell on 02-08-2025 Protein [Mass/Vol] 6.8 g/dL 5.9-8.4 [facility] White blood cell (WBC) count Ordered By: Carroll Lovell on 02-08-2025 WBC (Bld) [#/Vol] 6.4 10*3/uL 4.4-11.0 [facility] Absolute lymphocyte countOrd ered By: ED PROVIDER on 02-06-2025 Lymphocytes Auto (Unsp spec) [#/Vol] 2.23 10*3/uL 0.83-4.51 [facility] Absolute neutrophil countOrd ered By: ED PROVIDER on 02-06-2025 Neutrophils (Bld) [#/Vol] 3.2 10*3/uL 2.0-7.7 [facility] Anion gap in Serum or Plasma Ordered By: ED PROVIDER on 02-06-2025 Anion gap [Moles/Vol] 10 mmol/L 5-15 [facility] Automated lymphocyte count a s percentage of total leukocytesOrdered By: ED PROVIDER on 02-06-2025 Lymphocytes/100 WBC Auto (Unsp spec) 36.3 % 19-41 [facility] BUN/creatinine ratioOrdered By: ED PROVIDER on 02-06-2025 Urea nitrogen/Creatinine [Mass ratio] 15.0 mg/mg 10-20 [facility] Basophil percentageOrdered B y: ED PROVIDER on 02-06-2025 Basophils/100 WBC (Bld) 0.7 % 0-1 [facility] Bilirubin Test strip Ql (U)O rdered By: Vandana Pickens on 02-06-2025 Bilirubin Ql (U) Negative Negative [facility] Bilirubin, totalOrdered By: ED PROVIDER on 02-06-2025 Bilirubin [Mass/Vol] 0.19 mg/dL 0.00-1.30 [facility] Carbon dioxide, total [Moles /volume] in Central venous bloodOrdered By: ED PROVIDER on 02-06-2025 CO2 [Moles/Vol] 26.1 mmol/L 21.0-32.0 [facility] Chloride assayOrdered By: ED PROVIDER on 02-06-2025 Chloride [Moles/Vol] 102 mmol/L 98-108 [facility] Eosinophil percentageOrdered By: ED PROVIDER on 02-06-2025 Eosinophils/100 WBC (Bld) 3.7 % 0-5 [facility] Erythrocyte distribution wid th ratioOrdered By: ED PROVIDER on 02-06-2025 Erythrocyte distribution width (RBC) [Ratio] 12.9 % 11.6-14.6 [facility] Erythrocyte distribution wid th standard deviationOrdered By: ED PROVIDER on 02-06-2025 Erythrocyte distribution width (RBC) [Ratio] 39.8 fl 35.1-43.9 [facility] Glomerular filtration rate ( GFR) estimation/1.73 sq m using serum, plasma, or whole bOrdered By: ED PROVIDER on 02-06-2025 GFR/1.73 sq M.predicted among non-blacks MDRD (S/P/Bld) [Vol rate/Area] 104 mL/min/{1.73_m2} >60 [facility] Comment on above: mL/min/1.73m2 CKD-EP I Creatinine Equation (2020) Hematocrit Auto (Bld) [Volum e fraction]Ordered By: ED PROVIDER on 02-06-2025 Hematocrit (Bld) [Volume fraction] 35.2 % Low 37-47 [facility] Hemoglobin measurementOrdere d By: ED PROVIDER on 02-06-2025 Hemoglobin (Bld) [Mass/Vol] 12.1 g/dL 12.0-15.0 [facility] Immature granulocytes/100 WB C Auto (Bld)Ordered By: ED PROVIDER on 02-06-2025 Immature granulocytes/100 WBC (Bld) 0.200 % 0.0-0.9 [facility] Comment on above: IG% - Immature Granu locytes (promyelocytes, myelocytes and metamyelocytes) > 1% indicates that a LEFT SHIFT is Present. Ketones Test strip Ql (U)Ord ered By: Vandana Pickens on 02-06-2025 Ketones Ql (U) Negative Negative [facility] Laboratory - Chemistry and C hemistry - challengeOrdered By: ED PROVIDER on 02-06-2025 AST [Catalytic activity/Vol] 18 U/L <32 [facility] Lipase measurementOrdered By : ED PROVIDER on 02-06-2025 Lipase [Catalytic activity/Vol] 205 U/L High 13-75 [facility] Comment on above: Please note:LIPASE r evised reference range effective 22. New Lipase methodology. Expected to produce lower values than the previous assay method. NEW Reference Range: 13 - 75 U/L MCV (mean corpuscular volume ) determinationOrdered By: ED PROVIDER on 02-06-2025 MCV (RBC) [Entitic vol] 85.6 fL 81-99 [facility] Mean corpuscular hemoglobin (MCH) determinationOrdered By: ED PROVIDER on 02-06-2025 MCH (RBC) [Entitic mass] 29.4 pg 27.0-32.0 [facility] Mean corpuscular hemoglobin concentration (MCHC) determinationOrdered By: ED PROVIDER on 02-06-2025 MCHC (RBC) [Mass/Vol] 34.4 g/dL 32-36 [facility] Mean platelet volume determi nationOrdered By: ED PROVIDER on 02-06-2025 Platelet mean volume (Bld) [Entitic vol] 9.5 fL 6.2-12.0 [facility] Microscopic analysis of urin e for red blood cells (RBC)Ordered By: Vandana Pickens on 02-06-2025 Microscopic analysis of urine for red blood cells (RBC) 0-5 SEEN /hpf 0-5 [facility] Monocyte percentageOrdered B y: ED PROVIDER on 02-06-2025 Monocytes/100 WBC (Bld) 7.8 % 0-10 [facility] Mucus LM Ql (Urine sed)Order ed By: Vandana Pickens on 02-06-2025 Mucus Ql (Urine sed) 0 SEEN /hpf [facility] Neutrophil percentageOrdered By: ED PROVIDER on 02-06-2025 Neutrophils/100 WBC (Bld) 51.3 % 47-70 [facility] Nitrite Test strip Ql (U)Ord ered By: Vandana Pickens on 02-06-2025 Nitrite Ql (U) Negative Negative [facility] Nucleated red blood cell per centageOrdered By: ED PROVIDER on 02-06-2025 Nucleated RBC/100 WBC (Bld) [Ratio] 0 % 0-5 [facility] Platelet countOrdered By: ED PROVIDER on 02-06-2025 Platelets (Bld) [#/Vol] 270 10*3/uL 150-450 [facility] Potassium measurement (mass/ volume)Ordered By: ED PROVIDER on 02-06-2025 Potassium (Unsp spec) [Mass/Vol] 4.2 mmol/L 3.3-5.1 [facility] Protein Test strip Ql (U)Ord ered By: Vandana Pickens on 02-06-2025 Protein Ql (U) Negative Negative [facility] RBC Auto (Bld) [#/Vol]Ordere d By: ED PROVIDER on 02-06-2025 RBC (Bld) [#/Vol] 4.11 10*6/uL Low 4.2-5.4 [facility] Serum beta-hCG test, qualita tiveOrdered By: ED PROVIDER on 02-06-2025 Beta HCG ( test) Ql Negative [facility] Serum creatinine measurement (mass/volume)Ordered By: ED PROVIDER on 02-06-2025 Creatinine [Mass/Vol] 0.73 mg/dL 0.70-1.20 [facility] Serum globulin measurementOr dered By: ED PROVIDER on 02-06-2025 Globulin (S) [Mass/Vol] 2.8 g/dL 2.2-4.2 [facility] Serum glucose measurement (m ass/volume)Ordered By: ED PROVIDER on 02-06-2025 Glucose [Mass/Vol] 113 mg/dL High 70-99 [facility] Serum or plasma alanine lobo otransferase (ALT) measurementOrdered By: ED PROVIDER on 02-06-2025 ALT [Catalytic activity/Vol] 9 U/L <35 [facility] Serum or plasma albumin emma urement (mass/volume)Ordered By: ED PROVIDER on 02-06-2025 Albumin [Mass/Vol] 4.2 g/dL 3.5-5.0 [facility] Serum or plasma albumin/glob ulin mass ratioOrdered By: ED PROVIDER on 02-06-2025 Albumin/Globulin [Mass ratio] 1.5 {ratio} 0.9-2.4 [facility] Serum or plasma alkaline porfirio sphatase measurementOrdered By: ED PROVIDER on 02-06-2025 ALP [Catalytic activity/Vol] 89 U/L 35-104 [facility] Serum or plasma calcium emma urement (mass/volume)Ordered By: ED PROVIDER on 02-06-2025 Calcium [Mass/Vol] 9.3 mg/dL 7.6-11.0 [facility] Serum or plasma urea nitroge n measurement (mass/volume)Ordered By: ED PROVIDER on 02-06-2025 Urea nitrogen [Mass/Vol] 11 mg/dL 4-19 [facility] Sodium levelOrdered By: ED P ROVIDER on 02-06-2025 Sodium [Moles/Vol] 138 mmol/L 133-145 [facility] Squamous epithelial cells de tection in urine sediment by light microscopyOrdered By: Vandana Pickens on 02-06-2025 Epithelial cells.squamous LM Ql (Urine sed) 0-5 SEEN /hpf 5-10 [facility] Total proteinOrdered By: ED PROVIDER on 02-06-2025 Protein [Mass/Vol] 7.0 g/dL 5.9-8.4 [facility] Urine clarityOrdered By: Yani Pickens on 02-06-2025 Clarity (U) Clear Clear [facility] Urine color determinationOrd ered By: Vandana Pickens on 02-06-2025 Color (U) Straw Yellow [facility] Urine glucose detectionOrder ed By: Vandana Pickens on 02-06-2025 Glucose Ql (U) Normal mg/dl Normal [facility] Urine leukocyte esterase det ection by dipstickOrdered By: Vandana Pickens on 02-06-2025 Leukocyte esterase Test strip Ql (U) Negative Negative [facility] Urine pHOrdered By: Vandana rodríguez on 02-06-2025 pH (U) 7.0 [pH] 5.0 - 8.0 [facility] Urine sediment bacteria coun t by microscopy (number/high power field)Ordered By: Vandana Pickens on 02-06-2025 Bacteria LM.HPF (Urine sed) [#/Area] RARE /hpf None Seen [facility] Urine specific gravity measu rementOrdered By: Vandana Pickens on 02-06-2025 Specific gravity (U) [Rel density] 1.030 1.002-1.03 0 [facility] Urine urobilinogen measureme ntOrdered By: Vandana Pickens on 02-06-2025 Urobilinogen Ql (U) Normal mg/dl Normal [facility] White blood cell (WBC) count Ordered By: ED PROVIDER on 02-06-2025 WBC (Bld) [#/Vol] 6.1 10*3/uL 4.4-11.0 [facility] White blood cell countOrdere d By: Vandana Pickens on 02-06-2025 White blood cell count 0-5 SEEN /hpf 0-5 [facility] CNOVon 01-15-2025 CNOV Office Visit (GSTNOR ) ----- MELVA KERNS ([id number]) 1980 F Date Time Provider Department 01/15/25 2:00 PM ROEL MOSLEY GSTNOR During your visit today, we recorded the following information about you: Pulse Blood pressure Weight Height 75/minute 100/62 61.2 kg 1.626 m Roel Mosley MD 01/15/2025 3:02 PM Signed CHIEF COMPLAINT: [...] your p (more content not included)... Normal [facility] XR ABDOMEN 1V SUPINEon 01-14 XR [...] Communicated via Imaging Support Services Department with ROEL MOSLEY via [employer] Staff message 01/22/2025 4:22 PM Disease Case Manager Rn: ESTHER Transcribe Date/Time: Jan 22 2025 4:04P Dictated by : SHANE CABRERA DO This examination was interpreted and the report reviewed and electronically signed by: SHANE CABRERA DO on Jan 22 2025 4:22PM EST [id number] Normal [facility] CNOVon 10-24-2024 CNOV Office Visit (UCWSTR ) ----- MELVA KERNS ([id number]) 1980 F Date Time Provider Department 10/24/24 7:30 AM VIANCA CHAPPELL [facility] During your visit today, we recorded the following information about you: Temperature Pulse Respiration Blood pressure 97.3 degrees 97/minute 18/minute 111/76 Weight 62.4 kg Vianca Chappell, BOBBI.LOSS PREVENTION INVESTIGATOR 10/24/2024 7:56 AM Signed [facility] Subjective Melva Kerns is [...] Prescription sent (more content not included)... Normal [facility] ANES POSTPROC EVALon 025 ANES POSTPROC EVAL HNO ID: [id number] Author: BISI BOO DO Service: Anesthesiology Author Type: Physician Type: Anesthesia Postprocedure Evaluation Filed: 10/10/2024 10:06 Note Text: POST ANESTHESIA EVALUATION NOTE : 1980 Procedure Summary Date: 10/10/24 Room / Location: [facility] Anesthesia Start: 803 Anesthesia Stop: 847 [...] October 10, 2024 TIME: 10:06 AM CSN: [id number] Normal [facility] ANES PRE-OPon 10-10-2024 ANES PRE-OP HNO ID: [id number] Author: BISI BOO DO Service: Anesthesiology Author Type: Physician Type: Anesthesia Preprocedure Evaluation Filed: 10/10/2024 07:34 Note Text: ANESTHESIOLOGY DAY OF SURGERY NOTE : 1980 Procedure Information Date/Time: 10/10/24 0800 Scheduled providers: Roel Mosley MD Procedure: ERCP Location: [facility] Estimated body mass index is 23.52 kg/m? [...] October 10, 2024 TIME: 7:30 AM CSN: [id number] Normal [facility] ERCPon 10-10-2024 ERCP [facility] Gastrointestinal Endoscopy Patient Name: Melva Kerns Procedure Date: 10/10/2024 7:47 AM Date of : 1980 Admit Type: Outpatient Room: [place] [address] Gender: Female Note Status: Finalized Attending MD: Roel Mosley MD, [id number] Procedure: ERCP Indications: For therapy of chronic pancreatitis, Stent change Providers: Roel Mosley MD Patient Profile: Refer to note in patient chart for documentation of history and physical. Referring Physician: Roel Mosley MD (Referring MD) Medicines: General Anesthesia, Indomethacin 100 mg [place] Complications: No immediate complications. Procedure: Pre-Anesthesia Assessment: [...] performed under general anesthesia (GA) Findings: A front office agent film of the abdomen was obtained. Prior [...] (more content not included)... Normal [facility] ERCP Study observation Nancy harmon 10-10-2024 IMPRESSION: Images r eveal dislodged pancreatic duct stent. There is some persistent dilation of pancreatic duct at the level of pancreatic neck to 6.5 mm. Disease Case Manager Rn: [facility] Transcribe Date/Time: Oct 10 2024 3:24P Dictated by : KRISTY VASQUEZ MD This examination was interpreted and the report reviewed and electronically signed by: KRISTY VASQUEZ MD on Oct 10 2024 3:29PM EST [facility] * * *Final Report* * * DATE OF EXAM: Oct 10 2024 9:06AM COO [id number] - XR ERCP READ ONLY / [...] having a maximum diameter of 6.5 mm. [facility] Provider, [facility] - 10/10/2024 * * *Final Report* * [...] level of pancreatic neck to 6.5 mm. Disease Case Manager [facility] Transcribe Date/Time: Oct 10 2024 3:24P Dictated by : KRISTY VASQUEZ MD This examination was interpreted and the report reviewed and electronically signed by: KRISTY VASQUEZ MD on Oct 10 2024 3:29PM [facility] Gastrointestinal Endoscopy Patient Name: Melva Kerns Procedure Date: 10/10/2024 7:47 AM Date of : 1980 Admit Type: Outpatient Room: [facility] 23 Gender: Female Note Status: Finalized Attending MD: Roel Mosley MD, [id number] Procedure: ERCP Indications: For therapy of chronic pancreatitis, Stent change Providers: Roel Mosley MD Patient Profile: Refer to note in patient chart for documentation of history and physical. Referring Physician: Roel Mosley MD (Referring MD) Medicines: General Anesthesia, Indomethacin 100 mg [place] Complications: No immediate complications. Procedure: Pre-Anesthesia Assessment: [...] performed under general anesthesia (GA) Findings: A front office agent film of the abdomen was obtained. Prior [...] adequate. O (more content not included)... [facility] Radiology Study observation (narrative) [facility] Radiology Study observation (narrative) [facility] ERCP Study observation Narra tiveOrdered By: Ccf Provider on 10-10-2024 [facility] NURSING PROGon 10-10-2024 NURSING PROG HNO ID: [id number] Author: JEANETH PUENTE RN Service: ? Author Type: Registered Nurse Type: Nursing Progress Note Filed: 10/10/2024 09:07 Note Text: Other: 0905 Dr. Porras at bedside speaking with patient post operatively. Dr. Porras wrote RX for patient Oxycodone IR 5mg q 8 hours for up to 3 days. Normal [facility] XR ERCP READ ONLYon 10-11-19 XR ERCP READ ONLY * * *Final Report* * * DATE OF EXAM: Oct 10 2024 9:06AM COO 5565 - XR ERCP READ ONLY / [...] level of pancreatic neck to 6.5 mm. Disease Case Manager Rn: [facility] Transcribe Date/Time: Oct 10 2024 3:24P Dictated by : KRISTY VASQUEZ MD This examination was interpreted and the report reviewed and electronically signed by: KRISTY VASQUEZ MD on Oct 10 2024 3:29PM EST [id number] Normal [facility] HISTORY PHYSICALon HISTORY PHYSICAL HNO ID: [id number] Author: TETE RENDON APRN.LOSS PREVENTION INVESTIGATOR Service: ? Author Type: Nurse Practitioner Type: [...] 44 year old female who presents to [facility] for the above procedure. History of alcohol [...] fibrillation, CAD, chest pain, DVT/PE and recent [place]. GI: Positive for: GERD Negative for: abdominal pain, dysphagia, hepatitis, nausea, vomiting and ETOH >2 drinks/day. : Negative for: dysuria, hematuria, urinary incontinence and renal failure. 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 Endocrine: No history of diabetes. Has not taken steroids within the past 30 days. No history of endocrinological symptoms or problems. Negative for: diabetes mellitus and hypothyroidism. Hematology: Negative for: anemia, factor V Leiden, hemophilia and von Willebrand diseas (more content not included)... Normal [facility] CNPNon 09-09-2024 CNPN Telephone (GSTNOR) ----- MELVA KERNS ([id number]) 1980 F Date Time Provider Department 09/09/24 ROEL MOSLEY GSTSANTIAGOR During your visit today, we recorded the following information about you: Melva Santamaria 09/09/2024 3:07 PM Signed Called pt to schedule ERCP with stent exchange with Dr Mosley 12 weeks after her 07/18 ERCP. Sched for 5/8 Allergies As of Date: 09/09/2024 (No Known [...] as of 08/14/2012: No daily medications Medardo Martineserty [facility] Problem List As Of Date 09/09/2024 Noted [...] Encounter Status:Closed by MELVA SANTAMARIA on 09/09/24 [facility] Gregorio 08-06-2024 STEVE Telephone (ASCNOR) ----- YANELIMELVA ([id number]) 1980 F Date Time Provider Department 08/06/24 ROHAN HOOKER During your visit today, we recorded the following information about you: Shade Torresette 08/06/2024 3:43 PM Signed Pre op call - LM on VM Allergies As of Date: 08/06/2024 (No Known Allergies) Date Reviewed: 07/18/2024 Reviewed by: Fiona Larios, VIVIEN - Fully Assessed Reason for Visit: PreOp Call [[id number]] Prescriptions as of 08/06/2024 - BUTRANS 20 mcg/hour transdermal patch apply 1 patch topically to CLEAN, DRY, AND INTACT SKIN REMOVE AND REPLACE weekly - acetaminophen (TYLENOL) 500 mg tablet Take 2 tablets by mouth every 6 hours. Meds Comments as of 08/14/2012: No daily medications Medardo Gonzalez Lpn Problem List As Of Date 08/06/2024 Noted [...] Status:Closed by RUMA TORRES on 08/06/24 Normal [facility] Urgent Care Visit Reporton 0 08-01-2024 Urgent Care Visit Report [facility] [address], [address] [place] [address] OFFICE VISIT Date of Service: 08/01/24 MR#: [id number] Acct: [id number] Name: MELVA KERNS Rep #: [id number] 2 : 1980 Provider: ANURAG Antony Age/Sex: 44/F Location: [facility] Status: Signed Intake Vital Signs 05/25/24 13:37 [...] Note: Patient here for a pre-employment physical. [facility] History of alcohol abuse Biliary [...] Bartolo Mcdaniel Signature: Date (if applicable) CC: [facility] ANES PRE-OPon 07-25-2024 ANES PRE-OP HNO ID: [id number] Author: VANESSA CAMP APRN.CRNA Service: Anesthesiology Author Type: Nurse Lumber Sorter Machine Type: Anesthesia Preprocedure Evaluation Filed: 07/25/2024 13:22 [...] 48 hours of Surgery/Procedure. SIGNATURE: Vanessa Camp APRN.RENAL SOCIAL WORKER PATIENT NAME: Melva Kerns DATE: July 25, 2024 TIME: 1:21 PM CSN: [id number] Normal [facility] ANES POSTPROC EVALon 025 ANES POSTPROC EVAL HNO ID: [id number] Author: PRAKASH DOMINGUEZ MD Service: Anesthesiology Author Type: Anesthesiologist Type: Anesthesia Postprocedure Evaluation Filed: 07/18/2024 11:34 Note Text: POST ANESTHESIA EVALUATION NOTE : 1980 Procedure Summary Date: 07/18/24 Room / Location: [facility] Anesthesia Start: 0809 Anesthesia Stop: 909 Procedure: ERCP Diagnosis: Pancreatic duct stricture (Stent change) Scheduled Providers: Roel Mosley MD Responsible Provider: Prakash Dominguez MD Anesthesia Type: general ASA Status: 3 Anesthesia Type: general Airway Type: ETT Last Vitals Vitals Value Taken Time BP 132/97 07/18/24 0940 Temp 36.6 ?C (97.9 ?F) 07/18/24 0923 HR SpO2 95 07/18/24 0941 Resp 13 07/18/24 0941 SpO2 99 % 07/18/24940 Vitals shown include unfiled device data. Post [...] July 18, 2024 TIME: 9:42 AM CSN: [id number] Normal [facility] ANES PRE-OPon 07-18-2024 ANES PRE-OP HNO ID: [id number] Author: PRAKASH DOMINGUEZ MD Service: Anesthesiology Author Type: Anesthesiologist Type: Anesthesia Preprocedure Evaluation Filed: 07/18/2024 07:46 Note Text: ANESTHESIOLOGY DAY OF SURGERY NOTE : 1980 Procedure Information Date/Time: 07/18/24 0800 Scheduled providers: Roel Mosley MD Procedure: ERCP Location: [facility] Estimated body mass index is 22.83 kg/m? [...] July 18, 2024 TIME: 7:21 AM CSN: [id number] Normal [facility] ERCPon 07-18-2024 ERCP [facility] Gastrointestinal Endoscopy Patient Name: Melva Kerns Procedure Date: 07/18/2024 7:32 AM Date of : 1980 Admit Type: Outpatient Room: [place] [address] Gender: Female Note Status: Finalized Attending MD: Roel Mosley MD, [id number] Procedure: ERCP Indications: Stent change Providers: Roel [...] A pancreatic stent was visible on the front office agent film. The esophagus was successfully intubated under [...] antiplatelet agents. Procedure Code(s): --- Professional --- 33190, Endoscopic retrograde cholangiopanc (more content not included)... Normal [facility] ERCP Study observation Nancy harmon 07-18-2024 [facility] Gastrointestinal Endoscopy Patient Name: Melva Kerns Procedure Date: 07/18/2024 7:32 AM Date of : 1980 Admit Type: Outpatient Room: [place] [address] Gender: Female Note Status: Finalized Attending MD: Roel Mosley MD, [id number] Procedure: ERCP Indications: Stent change Providers: Roel Mosley MD Patient Profile: Refer to note in patient chart for documentation of history and physical. Referring Physician: Reol Mosley MD (Referring MD) Medicines: General Anesthesia [...] A pancreatic stent was visible on the front office agent film. The esophagus was successfully intubated under [...] The vent (more content not included)... [facility] Radiology Study observation (narrative) [facility] NURSING PROGon 07-18-2024 NURSING PROG HNO ID: [id number] Author: MEDARDO FONTENOT RN Service: Nursing Author Type: Registered Nurse Type: Nursing Progress Note Filed: 07/18/2024 10:07 Note Text: Dr Dominguez notified of continued pain and orders given. Encouraged to speak with physician who orders her chronic pain medication regarding procedures and discontinuing pre procedure and repeated episodes of post-op pain. Stated understanding. [facility] NURSING PROG HNO ID: [id number] Author: MEDARDO FONTENOT RN Service: Nursing Author Type: Registered Nurse Type: Nursing Progress Note Filed: 07/18/2024 10:04 Note Text: Dr. Mosley notified of continued pain and pts request for prescription for home. Wrote prescription for pt. [facility] XR ERCP READ ONLYon 07-18-19 XR ERCP READ ONLY * * *Final Report* * * DATE OF EXAM: Jul 18 2024 9:13AM AKO 5565 - XR ERCP READ ONLY [...] replaced. IMPRESSION: Fluoroscopic assistance for ERCP procedure. Disease Case Manager Rn: ESTHER Transcribe Date/Time: Jul 26 2024 6:43P Dictated by : MARQUISE PARRA MD This examination was interpreted and the report reviewed and electronically signed by: MARQUISE PARRA MD on Jul 26 2024 6:44PM EST [id number] [facility] CNOVon 07-03-2024 CNOV Office Visit (GSTNOR ) ----- MELVA KERNS ([id number]) 1980 F Date Time Provider Department 07/03/24 3:00 PM ROEL MOSLEY GSTLÁZARO During your visit today, we recorded the [...] 2 week (more content not included)... Normal [facility] Hepatic function 2000 panelo n 07-03-2024 Albumin [Mass/Vol] 4.4 g/dL Normal 3.9-4.9 [facility] Comment on above: Order Comment: Speci men Type: BLOOD SPECIMEN Ordering Facility: [facility] Address: [address] [place] [address] Performed By: #### 2 4325-3 #### [facility] CLIA [id number] [address] [place] [address] [place] ALP [Catalytic activity/Vol] 90 U/L Normal 34-123 [facility] Comment on above: Order Comment: Mayai olga Type: BLOOD SPECIMEN Ordering Facility: [facility] Address: [address] [place] [address] Performed By: #### 2 4325-3 #### [facility] CLIA [id number] [address] [place] [address] [place] ALT [Catalytic activity/Vol] 13 U/L Normal 7-38 [facility] Comment on above: Order Comment: Mayai men Type: BLOOD SPECIMEN Ordering Facility: [facility] Address: [address] [place] [address] Performed By: #### 2 4325-3 #### [facility] CLIA [id number] [address] [place] [address] [place] AST [Catalytic activity/Vol] 16 U/L Normal 13-35 [facility] Comment on above: Order Comment: Mayai men Type: BLOOD SPECIMEN Ordering Facility: [facility] Address: [address] [place] [address] Performed By: #### 2 4325-3 #### [facility] CLIA [id number] [address] [place] [address] [place] Bilirubin [Mass/Vol] 0.2 mg/dL Normal 0.2-1.3 [facility] Comment on above: Order Comment: Speci men Type: BLOOD SPECIMEN Ordering Facility: [facility] Address: [address] [place] [address] Performed By: #### 2 4325-3 #### [facility] CLIA [id number] [address] [place] [address] [place] Bilirubin.conjugated [Mass/Vol] 0.1 mg/dL Normal <0.3 [facility] Comment on above: Order Comment: Speci men Type: BLOOD SPECIMEN Ordering Facility: [facility] Address: [address] [place] [address] Performed By: #### 2 4325-3 #### [facility] CLIA [id number] [address] [place] [address] [place] Protein [Mass/Vol] 6.8 g/dL Normal 6.3-8.0 [facility] Comment on above: Order Comment: Speci men Type: BLOOD SPECIMEN Ordering Facility: [facility] Address: [address] [place] [address] Performed By: #### 2 4325-3 #### [facility] CLIA [id number] [address] [place] [address] [place] [facility] 06-13-2024 CNPN Telephone (AKPST) ----- MELVA KERNS ([id number]) 1980 F Date Time Provider Department 06/13/24 YOLI SAMPSON AKPST During your visit today, we recorded the following information about you: Yoli Sampson, COUNSELING DIRECTOR.LOSS PREVENTION INVESTIGATOR 06/13/2024 9:22 AM Signed Pt was a [...] of 08/14/2012: No daily medications Medardo Gonzalez Mold Unloader Problem List As Of Date 06/13/2024 Noted [...] Encounter Status:Closed by YOLI SAMPSON on 06/13/24 [facility] NURSING PROGon 06-11-2024 NURSING PROG HNO ID: [id number] Author: INÉS CASPER, RN Service: ? Author Type: Registered Nurse Type: Nursing Progress Note Filed: 06/11/2024 15:20 Note Text: Pt states she needs to reschedule this appt d/t babysitting commitment. She is going to call Dr. Putnam office and speak to the surgical navigator to reschedule. 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 Normal [facility] Comment on above: Performed By: #### L 400.0001 #### [facility] [address] [place], [address] Abdomen/Pelvis W IV Cont ONL Yon 05-25-2024 Abdomen/Pelvis W IV Cont ONLY [facility] Imaging Services [address] [place] [address] Abdomen/Pelvis W IV Cont ONLY MR#: [id number] Acct: [id number] Name: MELVA KERNS Rep #: [id number] : 1980 F 43 From: Kristy Sanon MD PCP: Care Physician,No Primary Status: REG ER Study: Abdomen/Pelvis W IV Cont ONLY Date of Exam: Exam# [id number] Ordering Dr: Zane Dixon SENIOR PROCESS ENGINEER-C [id number] EXAM: CT ABDOMEN AND PELVIS WITH INTRAVENOUS [...] and position. No hydronephrosis. STOMACH AND BOWEL: Udat-ee-jryxomje stool burden within the large bowel. PELVIS: [...] CC: ROHAN Dixon; No Primary Care Physician Disease Case Manager Rn: Signed Normal [facility] Basic Metabolic Profile (BMP )on 05-25-2024 BUN/CRE 15.9 RATIO Normal - [facility] Comment on above: Performed By: #### L 505.5000, L801.1541 #### [facility] [address] [place], [address] CA,Total 9.3 mg/dL Normal 8.5-10.1 [facility] Comment on above: Performed By: #### L 505.5000, L801.1541 #### [facility] [address] [place], [address] Chloride [Moles/Vol] 103 mmol/L Normal 98-107 [facility] Comment on above: Performed By: #### L 505.5000, L801.1541 #### [facility] [address] [place], [address] CO2 [Moles/Vol] 28.0 mmol/L Normal 21.0-32.0 [facility] Comment on above: Performed By: #### L 505.5000, L801.1541 #### [facility] [address] [place], [address] Creatinine [Mass/Vol] 0.88 mg/dL Normal 0.55-1.02 [facility] Comment on above: Result Comment: The validity of the calculated GFR GFRAA in patients over 70 years has not been determined. Clinical correlation is essential. Performed By: #### L 505.5000, L801.1541 #### [facility] [address] [place], [address] ECRCL 70.45 ml/min Normal [facility] Comment on above: Performed By: #### L 505.5000, L801.1541 #### [facility] [address] [place], [address] EST GFR - AA 90 mL/min Normal >60 [facility] Comment on above: Result Comment: Afri can Gibraltarian GFR Calc Performed By: #### L 505.5000, L801.1541 #### [facility] [address] [place], [address] GAP 5 Normal 5-15 [facility] Comment on above: Performed By: #### L 505.5000, L801.1541 #### [facility] [address] [place], [address] GFR/1.73 sq M.predicted among non-blacks MDRD (S/P/Bld) [Vol rate/Area] 74 mL/min/{1.73_m2} Normal >60 [facility] Comment on above: Result Comment: Non- GFR Calc Performed By: #### L 505.5000, L801.1541 #### [facility] [address] [place], [address] Glucose [Mass/Vol] 103 mg/dL Normal 74-106 [facility] Comment on above: Result Comment: Fast ing Glucose result from 100 to 125 mg/dL suggests IMPAIRED HOMEOSTASIS per A.D.A. criteria. Performed By: #### L 505.5000, L801.1541 #### [facility] [address] [place], [address] Potassium [Moles/Vol] 3.8 mmol/L Normal 3.5-5.1 [facility] Comment on above: Performed By: #### L 505.5000, L801.1541 #### [facility] [address] [place], [address] Sodium [Moles/Vol] 136 mmol/L Normal 136-145 [facility] Comment on above: Performed By: #### L 505.5000, L801.1541 #### [facility] [address] [place], [address] Urea nitrogen [Mass/Vol] 14 mg/dL Normal 7-18 [facility] Comment on above: Performed By: #### L 505.5000, L801.1541 #### [facility] [address] [place], [address] CBC W/Diff, Automatedon 12-2 Absolute Lymph 2.28 X10 3/uL Normal 0.83-4.51 [facility] Comment on above: Performed By: #### L 505.5000, L801.1541 #### [facility] [address] [place], [address] Absolute Neut 4.7 X10 3/uL Normal 2.0-7.7 [facility] Comment on above: Performed By: #### L 505.5000, L801.1541 #### [facility] [address] [place], [address] Basophils/100 WBC (Bld) 0.6 % Normal 0-1 [facility] Comment on above: Performed By: #### L 505.5000, L801.1541 #### [facility] [address] [place], [address] Eosinophils/100 WBC (Bld) 3.4 % Normal 0-5 [facility] Comment on above: Performed By: #### L 505.5000, L801.1541 #### [facility] [address] [place], [address] Erythrocyte distribution width (RBC) [Ratio] 12.9 % Normal 11.6-14.6 [facility] Comment on above: Performed By: #### L 505.5000, L801.1541 #### [facility] [address] [place], [address] Hematocrit (Bld) [Volume fraction] 42.1 % Normal 37-47 [facility] Comment on above: Performed By: #### L 505.5000, L801.1541 #### [facility] [address] [place], [address] Hemoglobin (Bld) [Mass/Vol] 14.3 g/dL Normal 12.0-15.0 [facility] Comment on above: Performed By: #### L 505.5000, L801.1541 #### [facility] [address] [place], [address] IG% 0.300 Normal 0.0-0.9 [facility] Comment on above: Result Comment: IG% - Immature Granulocytes (promyelocytes, myelocytes and metamyelocytes) > 1% indicates that a LEFT SHIFT is Present. Performed By: #### L 505.5000, L801.1541 #### [facility] [address] [place], [address] Lymphocytes/100 WBC (Bld) 28.8 % Normal 19-41 [facility] Comment on above: Performed By: #### L 505.5000, L801.1541 #### [facility] [address] [place], [address] MCH (RBC) [Entitic mass] 29.4 pg Normal 27.0-32.0 [facility] Comment on above: Performed By: #### L 505.5000, L801.1541 #### [facility] [address] [place], [address] MCHC (RBC) [Mass/Vol] 34.0 g/dL Normal 32-36 [facility] Comment on above: Performed By: #### L 505.5000, L801.1541 #### [facility] [address] [place], [address] MCV (RBC) [Entitic vol] 86.6 fL Normal 81-99 [facility] Comment on above: Performed By: #### L 505.5000, L801.1541 #### [facility] [address] [place], [address] Monocytes/100 WBC (Bld) 8.0 % Normal 0-10 [facility] Comment on above: Performed By: #### L 505.5000, L801.1541 #### [facility] [address] [place], [address] Neutrophils/100 WBC (Bld) 58.9 % Normal 47-70 [facility] Comment on above: Performed By: #### L 505.5000, L801.1541 #### [facility] [address] [place], [address] Nucleated RBC (Bld) [#/Vol] 0 10*3/uL Normal 0-5 [facility] Comment on above: Performed By: #### L 505.5000, L801.1541 #### [facility] [address] [place], [address] Platelet mean volume (Bld) [Entitic vol] 9.5 fL Normal 6.2-12.0 [facility] Comment on above: Performed By: #### L 505.5000, L801.1541 #### [facility] [address] [place], [address] Platelets (Bld) [#/Vol] 302 10*3/uL Normal 150-450 [facility] Comment on above: Performed By: #### L 505.5000, L801.1541 #### [facility] [address] [place], [address] RBC (Bld) [#/Vol] 4.86 10*6/uL Normal 4.2-5.4 [facility] Comment on above: Performed By: #### L 505.5000, L801.1541 #### [facility] [address] [place], [address] RDW SD 40.9 fl Normal 35.1-43.9 [facility] Comment on above: Performed By: #### L 505.5000, L801.1541 #### [facility] [address] [place], [address] WBC (Bld) [#/Vol] 7.9 10*3/uL Normal 4.4-11.0 [facility] Comment on above: Performed By: #### L 505.5000, L801.1541 #### [facility] [address] [place], [address] Emergency Department Summary on 05-25-2024 Emergency Department Summary [facility] Medical Records Department [address] [place] [address] Emergency Department Summary 05/25/24 MR#: [id number] Acct: [id number] Name: MELVA KERNS Rep #: [id number] : 1980 43 From: aBron Smith MD PCP: Care Physician,No Primary Status:DEP ER Location: ED HPI History of Present Illness Chief Complaint: Abd Pain Narrative Narrative: Patient is a 43-year-old female with history of hypertension, history of intractable abdominal pain as well as biliary stricture, pancreatitis that is chronic. Patient had pancreatitis from alcohol use, last drink of alcohol was December 2022. Was seen at [facility] by Dr. Mosley, and had a ERCP completed 4 days ago. Patient states she is now having worsening pain, she said she had light- colored stools this morning and is here for evaluation. PFSH PFSH Medical History History of alcohol abuse [...] ED: well (more content not included)... Normal [facility] Lactic Acidon 05-25-2024 Lactate [Moles/Vol] 1.0 mmol/L Normal 0.4-1.9 [facility] Comment on above: Order Comment: #[id number] MEDTOX Performed By: #### L 505.5000, L801.1541 #### [facility] [address] [place], [address] Lipaseon 05-25-2024 Lipase [Catalytic activity/Vol] 39 U/L Normal 13-75 [facility] Comment on above: Result Comment: Hema norris note: LIPASE revised reference range effective 22. New Lipase methodology. Expected to produce lower values than the previous assay method. NEW Reference Range: 13 - 75 U/L Performed By: #### L 505.5000, L801.1541 #### [facility] [address] [place], [address] Liver Profileon 05-25-2024 Albumin [Mass/Vol] 3.8 g/dL Normal 3.2-5.0 [facility] Comment on above: Performed By: #### L 505.5000, L801.1541 #### [facility] [address] [place], [address] ALK P 101 U/L Normal 45-117 [facility] Comment on above: Performed By: #### L 505.5000, L801.1541 #### [facility] [address] [place], [address] ALT [Catalytic activity/Vol] 25 U/L Normal 13-56 [facility] Comment on above: Performed By: #### L 505.5000, L801.1541 #### [facility] [address] [place], [address] AST [Catalytic activity/Vol] 14 U/L Low 15-37 [facility] Comment on above: Performed By: #### L 505.5000, L801.1541 #### [facility] [address] [place], [address] Bilirubin [Mass/Vol] 0.40 mg/dL Normal 0.20-1.00 [facility] Comment on above: Result Comment: For patients on eltrombopag therapy, use of Dimension [place] TBIL is not recommended. Performed By: #### L 505.5000, L801.1541 #### [facility] [address] [place], [address] Bilirubin.direct [Mass/Vol] 0.10 mg/dL Normal 0.00-0.30 [facility] Comment on above: Performed By: #### L 505.5000, L801.1541 #### [facility] [address] [place], [address] Globulin (S) [Mass/Vol] 3.9 g/dL Normal 2.2-4.2 [facility] Comment on above: Performed By: #### L 505.5000, L801.1541 #### [facility] [address] [place], [address] T PROT 7.7 g/dL Normal 6.4-8.2 [facility] Comment on above: Performed By: #### L 505.5000, L801.1541 #### [facility] [address] [place], [address] ,Serum,hCG Quali.on 05-25-2024 HCG, SERUM QUAL Negative Normal [facility] Comment on above: Performed By: #### L 505.5000, L801.1541 #### [facility] [address] [place], [address] Urinalysis, Completeon 05-25 WBC 0 SEEN Normal 0-5 [facility] Comment on above: Order Comment: CLEAN CATCH Performed By: #### L 400.0001 #### [facility] [address] [place], [address] BACTERIA 2+ /hpf Normal None Seen [facility] Comment on above: Order Comment: CLEAN CATCH Performed By: #### L 400.0001 #### [facility] [address] [place], [address] EPI,SQUAMOUS 5-10 SEEN Normal 5-10 [facility] Comment on above: Order Comment: CLEAN CATCH Performed By: #### L 400.0001 #### [facility] [address] [place], [address] Mucus Ql (Urine sed) 0 SEEN Normal [facility] Comment on above: Order Comment: CLEAN CATCH Performed By: #### L 400.0001 #### [facility] [address] [place], [address] RBC 0 SEEN Normal 0-5 [facility] Comment on above: Order Comment: CLEAN CATCH Performed By: #### L 400.0001 #### [facility] [address] [place], [address] ANES POSTPROC EVALon 024 ANES POSTPROC EVAL HNO ID: [id number] Author: PEDRO PABLO NICOLAS MD Service: Anesthesiology Author Type: Physician Type: Anesthesia Postprocedure Evaluation Filed: 05/21/2024 12:29 Note Text: POST ANESTHESIA EVALUATION NOTE : 1980 Procedure Summary Date: 05/21/24 Room / Location: [facility] Anesthesia Start: 909 Anesthesia Stop: 1014 Procedure: ERCP Diagnosis: Alcohol-induced chronic pancreatitis (HCC) [...] May 21, 2024 TIME: 12:29 PM CSN: [id number] Normal [facility] ANES PRE-OPon 05-21-2024 ANES PRE-OP HNO ID: [id number] Author: PEDRO PABLO NICOLAS MD Service: Anesthesiology Author Type: Physician Type: Anesthesia Preprocedure Evaluation Filed: 05/21/2024 08:37 Note Text: ANESTHESIOLOGY DAY OF SURGERY NOTE : 1980 Procedure Information Date/Time: 05/21/24 0900 Scheduled providers: Roel Mosley MD Procedure: ERCP Location: [facility] Estimated body mass index is 22.32 kg/m? [...] Vitals Value Taken Time BP 113/77 05/21/24 0801 Pulse 72 05/21/24 0801 Resp 15 05/21/24 0801 Temp 36.4 ?C (97.5 ?F) 05/21/24 0801 SpO2 99 % 05/21/24 0801 Outpatient Medications as of 05/21/2024 Medication Sig [...] May 21, 2024 TIME: 8:34 AM CSN: [id number] [facility] 05-21-2024 CNPN Telephone (AKPRAD) ----- MELVA KERNS ([id number]) 1980 F Date Time Provider Department 05/21/24 ROEL MOSLEY During your visit today, we recorded the following information about you: Allergies As of Date: 05/21/2024 (No Known Allergies) Date Reviewed: 05/21/2024 Reviewed by: Divya Georges RN - Fully Assessed Primary Visit 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 ERCPon 05-21-2024 ERCP [facility] Gastrointestinal Endoscopy Patient Name: Melva Kerns Procedure Date: 05/21/2024 8:53 AM Date of : 1980 Admit Type: Outpatient Room: [place] [address] Gender: Female Note Status: Finalized Attending MD: Roel Mosley MD, [id number] Procedure: ERCP Indications: Pancreatic duct stricture, Stent change Providers: Roel Mosley MD Patient Profile: Refer to note in patient chart for documentation of history and physical. Referring Physician: Roel Mosley MD (Referring MD) Medicines: General Anesthesia, Indomethacin 100 mg [place] Complications: No immediate complications. Procedure: Pre-Anesthesia Assessment: [...] A pancreatic stent was visible on the front office agent film. The esophagus was successfully intubated under [...] and removed (more content not included)... Normal [facility] ERCP Study observation Nancy harmon 05-21-2024 [facility] Gastrointestinal Endoscopy Patient Name: Melva Kerns Procedure Date: 05/21/2024 8:53 AM Date of : 1980 Admit Type: Outpatient Room: [place] [address] Gender: Female Note Status: Finalized Attending MD: Roel Mosley MD, [id number] Procedure: ERCP Indications: Pancreatic duct stricture, Stent change Providers: Roel Mosley MD Patient Profile: Refer to note in patient chart for documentation of history and physical. Referring Physician: Roel Mosley MD (Referring MD) Medicines: General Anesthesia, Indomethacin 100 mg [place] Complications: No immediate complications. Procedure: Pre-Anesthesia Assessment: [...] A pancreatic stent was visible on the front office agent film. The esophagus was successfully intubated under [...] Image qual (more content not included)... [facility] Radiology Study observation (narrative) [facility] HISTORY PHYSICALon HISTORY PHYSICAL HNO ID: [id number] Author: RADHA SEARS APRN.CNP Service: Anesthesiology Author [...] removed. Denies any N/V/D and constipation. Endorses 12/12 abdominal pain in the perioperative area. Surgical [...] (more content not included)... Normal [facility] NURSING PROGon 05-21-2024 NURSING PROG HNO ID: [id number] Author: DIVYA GEORGES, RN Service: Nursing Author [...] notify staff on arrival. Normal [facility] XR ERCP READ ONLYon 05-21-20 XR ERCP READ ONLY * * *Final Report* * * DATE OF EXAM: May 21 2024 10:17AM [facility] 5565 - XR ERCP READ ONLY [...] defects at the end of the procedure. Disease Case Manager Rn: ESTHER Transcribe Date/Time: May 28 2024 11:04A Dictated by : KRISTY VASQUEZ MD This examination was interpreted and the report reviewed and electronically signed by: KRISTY VASQUEZ MD on May 28 2024 11:08AM EST [id number] Normal [facility] CBC W/Diff, Automatedon 11-0 Absolute Neut Normal 2.0-7.7 [facility] Comment on above: Result Comment: PT L EFT AMA Performed By: #### L 500.4050, L100.0100 #### [facility] [address] [place], [address] HCT Normal 37-47 [facility] Comment on above: Result Comment: PT L EFT AMA Performed By: #### L 500.4050, L100.0100 #### [facility] [address] [place], [address] HGB Normal 12.0-15.0 [facility] Comment on above: Result Comment: PT L EFT AMA Performed By: #### L 500.4050, L100.0100 #### [facility] [address] [place], [address] MCH Normal 27.0-32.0 [facility] Comment on above: Result Comment: PT L EFT AMA Performed By: #### L 500.4050, L100.0100 #### [facility] [address] [place], [address] MCHC Normal 32-36 [facility] Comment on above: Result Comment: PT L EFT AMA Performed By: #### L 500.4050, L100.0100 #### [facility] [address] [place], [address] MCV Normal 81-99 [facility] Comment on above: Result Comment: PT L EFT AMA Performed By: #### L 500.4050, L100.0100 #### [facility] [address] [place], [address] NEUT% Normal 47-70 [facility] Comment on above: Result Comment: PT L EFT AMA Performed By: #### L 500.4050, L100.0100 #### [facility] [address] [place], [address] PLT Normal 150-450 [facility] Comment on above: Result Comment: PT L EFT AMA Performed By: #### L 500.4050, L100.0100 #### [facility] [address] [place], [address] RBC Normal 4.2-5.4 [facility] Comment on above: Result Comment: PT L EFT AMA Performed By: #### L 500.4050, L100.0100 #### [facility] [address] [place], [address] RDW CV Normal 11.6-14.6 [facility] Comment on above: Result Comment: PT L EFT AMA Performed By: #### L 500.4050, L100.0100 #### [facility] [address] [place], [address] RDW SD Normal 35.1-43.9 [facility] Comment on above: Result Comment: PT L EFT AMA Performed By: #### L 500.4050, L100.0100 #### [facility] [address] [place], [address] WBC Normal 4.4-11.0 [facility] Comment on above: Result Comment: PT L EFT AMA Performed By: #### L 500.4050, L100.0100 #### [facility] [address] [place], [address] Comprehensive Metabolic Prof ilon 04-11-2024 ALB Normal 3.2-5.0 [facility] Comment on above: Result Comment: PT L EFT AMA Performed By: #### L 500.4050, L100.0100 #### [facility] [address] [place], [address] ALK P Normal 45-117 [facility] Comment on above: Result Comment: PT L EFT AMA Performed By: #### L 500.4050, L100.0100 #### [facility] [address] [place], [address] ALT Normal 13-56 [facility] Comment on above: Result Comment: PT L EFT AMA Performed By: #### L 500.4050, L100.0100 #### [facility] [address] [place], [address] AST Normal 15-37 [facility] Comment on above: Result Comment: PT L EFT AMA Performed By: #### L 500.4050, L100.0100 #### [facility] [address] [place], [address] BUN Normal 7-18 [facility] Comment on above: Result Comment: PT L EFT AMA Performed By: #### L 500.4050, L100.0100 #### [place] [facility] [address] [place], [address] BUN/CRE Normal 10-20 [facility] Comment on above: Result Comment: PT L EFT AMA Performed By: #### L 500.4050, L100.0100 #### [facility] [address] [place], [address] CA,Total Normal 8.5-10.1 [facility] Comment on above: Result Comment: PT L EFT AMA Performed By: #### L 500.4050, L100.0100 #### [facility] [address] [place], [address] CL Normal 98-107 [facility] Comment on above: Result Comment: PT L EFT AMA Performed By: #### L 500.4050, L100.0100 #### [facility] [address] [place], [address] CO2 Normal 21.0-32.0 [facility] Comment on above: Result Comment: PT L EFT AMA Performed By: #### L 500.4050, L100.0100 #### [facility] [address] [place], [address] CREAT,SERUM Normal 0.55-1.02 [facility] Comment on above: Result Comment: PT L EFT AMA Performed By: #### L 500.4050, L100.0100 #### [facility] [address] [place], [address] EST GFR Normal >60 [facility] Comment on above: Result Comment: PT L EFT AMA Performed By: #### L 500.4050, L100.0100 #### [facility] [address] [place], [address] EST GFR - AA Normal >60 [facility] Comment on above: Result Comment: PT L EFT AMA Performed By: #### L 500.4050, L100.0100 #### [facility] [address] [place], [address] GAP Normal 5-15 [facility] Comment on above: Result Comment: PT L EFT AMA Performed By: #### L 500.4050, L100.0100 #### [facility] [address] [place], [address] GLU Normal 74-106 [facility] Comment on above: Result Comment: PT L EFT AMA Performed By: #### L 500.4050, L100.0100 #### [facility] [address] [place], [address] Potassium Normal 3.5-5.1 [facility] Comment on above: Result Comment: PT L EFT AMA Performed By: #### L 500.4050, L100.0100 #### [facility] [address] [place], [address] T BILI Normal 0.20-1.00 [facility] Comment on above: Result Comment: PT L EFT AMA Performed By: #### L 500.4050, L100.0100 #### [facility] [address] [place], [address] T PROT Normal 6.4-8.2 [facility] Comment on above: Result Comment: PT L EFT AMA Performed By: #### L 500.4050, L100.0100 #### [facility] [address] [place], [address] Comprehensive Metabolic Profil Normal 136-145 [facility] Comment on above: Result Comment: PT L EFT AMA Performed By: #### L 500.4050, L100.0100 #### [facility] [address] [place], [address] Abdomen/Pelvis W IV Cont ONL Yon 04-10-2024 Abdomen/Pelvis W IV Cont ONLY [facility] Services [address] [place], [place] [address] Abdomen/Pelvis W IV Cont ONLY MR#: [id number] Acct: [id number] Name: MELVA KERNS Rep #: [id number] : 1980 F 43 From: Christos talamantes MD PCP: Care Physician,No Primary Status: REG ER Study: Abdomen/Pelvis W IV Cont ONLY Date of Exam: Exam# [id number] Ordering Dr: Carroll Lovell DO [id number] STUDY: CT ABDOMEN AND PELVIS WITH CONTRAST [...] 9:48 EST Reading Location ID and State: [facility] / [place] , Service support , CC: Dr. Carroll Lovell, DO; No Primary Care Physician Disease Case Manager Rn: Signed Normal [facility] CBC W/Diff, Automatedon 11-0 -2023 Absolute Lymph 3.00 X10 3/uL Normal 0.83-4.51 [facility] Comment on above: Performed By: #### L 400.0001 #### [facility] [address] [facility] [place], [address] Absolute Neut 8.1 X10 3/uL High 2.0-7.7 [facility] Comment on above: Performed By: #### L 400.0001 #### [facility] [address] [place], [address] Basophils/100 WBC (Bld) 0.3 % Normal 0-1 [facility] Comment on above: Performed By: #### L 400.0001 #### [facility] [address] [facility], [address] Eosinophils/100 WBC (Bld) 0.6 % Normal 0-5 [facility] Comment on above: Performed By: #### L 400.0001 #### [facility] [address] [facility], [address] Erythrocyte distribution width (RBC) [Ratio] 12.9 % Normal 11.6-14.6 [facility] Comment on above: Performed By: #### L 400.0001 #### [facility] [address] [place], [address] Hematocrit (Bld) [Volume fraction] 38.4 % Normal 37-47 [facility] Comment on above: Performed By: #### L 400.0001 #### [facility] [address] [place], [address] Hemoglobin (Bld) [Mass/Vol] 12.7 g/dL Normal 12.0-15.0 [facility] Comment on above: Performed By: #### L 400.0001 #### [facility] [address] [place], [address] IG% 0.400 Normal 0.0-0.9 [facility] Comment on above: Result Comment: IG% - Immature Granulocytes (promyelocytes, myelocytes and metamyelocytes) > 1% indicates that a LEFT SHIFT is Present. Performed By: #### L 400.0001 #### [facility] [address] [place], [address] Lymphocytes/100 WBC (Bld) 25.0 % Normal 19-41 [facility] Comment on above: Performed By: #### L 400.0001 #### [facility] [address] [place], [address] MCH (RBC) [Entitic mass] 29.7 pg Normal 27.0-32.0 [facility] Comment on above: Performed By: #### L 400.0001 #### [facility] [address] [place], [address] MCHC (RBC) [Mass/Vol] 33.1 g/dL Normal 32-36 [facility] Comment on above: Performed By: #### L 400.0001 #### [facility] [address] [place], [address] MCV (RBC) [Entitic vol] 89.7 fL Normal 81-99 [facility] Comment on above: Performed By: #### L 400.0001 #### [facility] [address] [place], [address] Monocytes/100 WBC (Bld) 6.4 % Normal 0-10 [facility] Comment on above: Performed By: #### L 400.0001 #### [facility] [address] [place], [address] Neutrophils/100 WBC (Bld) 67.3 % Normal 47-70 [facility] Comment on above: Performed By: #### L 400.0001 #### [facility] [address] [place], [address] Nucleated RBC (Bld) [#/Vol] 0 10*3/uL Normal 0-5 [facility] Comment on above: Performed By: #### L 400.0001 #### [facility] [place], [address] Platelet mean volume (Bld) [Entitic vol] 9.3 fL Normal 6.2-12.0 [facility] Comment on above: Performed By: #### L 400.0001 #### [facility] [address] [place], [address] Platelets (Bld) [#/Vol] 289 10*3/uL Normal 150-450 [facility] Comment on above: Performed By: #### L 400.0001 #### [facility] [address] [place], [address] RBC (Bld) [#/Vol] 4.28 10*6/uL Normal 4.2-5.4 [facility] Comment on above: Performed By: #### L 400.0001 #### [facility] [address] [place], [address] RDW SD 42.0 fl Normal 35.1-43.9 [facility] Comment on above: Performed By: #### L 400.0001 #### [facility] [address] [place], [address] WBC (Bld) [#/Vol] 12.0 10*3/uL High 4.4-11.0 [facility] Comment on above: Performed By: #### L 400.0001 #### [facility] [address] [place], [address] Comprehensive Metabolic Prof ilon 04-10-2024 Albumin [Mass/Vol] 3.8 g/dL Normal 3.2-5.0 [facility] Comment on above: Performed By: #### L 400.0001 #### [facility] [address] [place], [address] Albumin/Globulin [Mass ratio] 1.1 {ratio} Normal 0.9-2.4 [facility] Comment on above: Performed By: #### L 400.0001 #### [facility] [address] [place], [address] ALK P 102 U/L Normal 45-117 [facility] Comment on above: Performed By: #### L 400.0001 #### [facility] [address] [place], [address] ALT [Catalytic activity/Vol] 21 U/L Normal 13-56 [facility] Comment on above: Performed By: #### L 400.0001 #### [facility] [address] [place], [address] AST [Catalytic activity/Vol] 12 U/L Low 15-37 [facility] Comment on above: Performed By: #### L 400.0001 #### [facility] [address] [place], [address] Bilirubin [Mass/Vol] 0.30 mg/dL Normal 0.20-1.00 [facility] Comment on above: Result Comment: For patients on eltrombopag therapy, use of Dimension [place] TBIL is not recommended. Performed By: #### L 400.0001 #### [facility] [address] [place], [address] BUN/CRE 15.9 RATIO Normal 10-20 [facility] Comment on above: Performed By: #### L 400.0001 #### [facility] [address] [place], [address] CA,Total 8.8 mg/dL Normal 8.5-10.1 [facility] Comment on above: Performed By: #### L 400.0001 #### [facility] [address] [place], [address] Chloride [Moles/Vol] 108 mmol/L High 98-107 [facility] Comment on above: Performed By: #### L 400.0001 #### [facility] [address] [place], [address] CO2 [Moles/Vol] 27.0 mmol/L Normal 21.0-32.0 [facility] Comment on above: Performed By: #### L 400.0001 #### [facility] [address] [place], [address] Creatinine [Mass/Vol] 0.88 mg/dL Normal 0.55-1.02 [facility] Comment on above: Result Comment: The validity of the calculated GFR GFRAA in patients over 70 years has not been determined. Clinical correlation is essential. Performed By: #### L 400.0001 #### [facility] [address] [place], [address] ECRCL 70.45 ml/min Normal [facility] Comment on above: Performed By: #### L 400.0001 #### [facility] [address] [place], [address] EST GFR - AA 90 mL/min Normal >60 [facility] Comment on above: Result Comment: Afri can Gibral[place]arian GFR Calc Performed By: #### L 400.0001 #### [facility] [address] [place], [address] GAP 6 Normal 5-15 [facility] Comment on above: Performed By: #### L 400.0001 #### [facility] [address] [place], [address] GFR/1.73 sq M.predicted among non-blacks MDRD (S/P/Bld) [Vol rate/Area] 74 mL/min/{1.73_m2} Normal >60 [facility] Comment on above: Result Comment: Non- GFR Calc Performed By: #### L 400.0001 #### [facility] [address] [place], [address] Globulin (S) [Mass/Vol] 3.4 g/dL Normal 2.2-4.2 [facility] Comment on above: Performed By: #### L 400.0001 #### [facility] [address] [place], [address] Glucose [Mass/Vol] 149 mg/dL High 74-106 [facility] Comment on above: Result Comment: Fast ing Glucose result greater than or equal to 126 mg/dL suggests DIABETES MELLITUS per A.D.A. criteria. Performed By: #### L 400.0001 #### [facility] [address] [place], [address] Potassium [Moles/Vol] 3.4 mmol/L Low 3.5-5.1 [facility] Comment on above: Performed By: #### L 400.0001 #### [facility] [address] [place], [address] Sodium [Moles/Vol] 141 mmol/L Normal 136-145 [facility] Comment on above: Performed By: #### L 400.0001 #### [facility] [address] [place], [address] T PROT 7.2 g/dL Normal 6.4-8.2 [facility] Comment on above: Performed By: #### L 400.0001 #### [facility] [address] [place], [address] Urea nitrogen [Mass/Vol] 14 mg/dL Normal 7-18 [facility] Comment on above: Performed By: #### L 400.0001 #### [facility] [address] [place], [address] Emergency Department Summary on 04-10-2024 Emergency Department Summary [facility] Medical Records Department [address] [place] [address] Emergency Department Summary 04/10/24 MR#: [id number] Acct: [id number] Name: MELVA KERNS Rep #: [id number] : 1980 43 From: Carroll Lovell DO PCP: Care Physician,No Primary Status:REG ER Location: ED ADDENDUM by Dr. Neno Ryan DO on 04/10/24 at 1916 Patient is still waiting bed placement from [facility]. It has been multiple hours. I was [...] yesterday she had a procedure done at [facility] For a biliary duct stent removal and [...] follow commands knew that she was at [facility] years 2023 Skin: Warm, dry, intact [...] decision making (more content not included)... Normal [facility] Folates, (Folic Acid)on FOLATES 11.40 ng/mL Normal 3.1-55.4 [facility] Comment on above: Order Comment: #[id number] MEDTOX Performed By: #### L 505.5000, L801.1541 #### [facility] [address] [place], [address] H AND P Exam - Hospitaliston 04-10-2024 H&P Exam - Hospitalist [facility] Medical Records Department [address] [place] [address] H P Exam - Hospitalist 04/10/24 1911 MR#: [id number] Acct: [id number] Name: MELVA KERNS OCTOBER Rep #: [id number] : 1980 43 From: Jose Francisco Clark DO PCP: Care Physician,No Primary Status:DIS IN Location: MS3 [id number] HPI - General General Date of Admission: 04/10/24 Date of Service: 04/10/24 Chief Complaint: Abdominal Pain. HPI Narrative MELVA KERNS, is a 43 F [...] and history of pancreatic duct stent at [facility] yesterday who presents to [facility] ER complaining of abdominal pain since [...] findings. This patient has been accepted at [facility] - but there is no bed available at this time so it has fallen to the hospitalist service to manage this patient until she can be safely transferred back to [facility]. There is no report of fever, chills, [...] leave AMA so she could go to [facility] in an effort to get more opiate [...] bleeding or (more content not included)... Normal [facility] Lipaseon 04-10-2024 Lipase [Catalytic activity/Vol] 115 U/L High 13-75 [facility] Comment on above: Result Comment: Plea se note: LIPASE revised reference range effective 22. New Lipase methodology. Expected to produce lower values than the previous assay method. NEW Reference Range: 13 - 75 U/L Performed By: #### L 400.0001 #### [facility] [address] [place], [address] Magnesiumon 04-10-2024 Magnesium [Mass/Vol] 2.3 mg/dL Normal 1.6-2.6 [facility] Comment on above: Order Comment: Has P atient had X-rays with Contrast this admission? N N Performed By: #### L 506.0250, L501.5200, L505.5000 #### [facility] [address] [place], [address] Phosphoruson 04-10-2024 Phosphate [Mass/Vol] 3.0 mg/dL Normal 2.5-4.9 [facility] Comment on above: Performed By: #### L 400.0001 #### [facility] [address] [place], [address] ,Urineon 04-10-2024 Beta HCG ( test) Ql (U) Negative Normal [facility] Comment on above: Order Comment: #[id number] MEDTOX Result Comment: Very dilute urine specimens, as indicated by a low specific gravity, may not contain community service representative levels of hCG. If is still suspected, a first morning urine specimen should be collected 48 hours later and tested. Performed By: #### L 505.5000, L801.1541 #### [facility] [address] [place], [address] Urinalysis, Completeon 04-10 EPI,SQUAMOUS 0-5 SEEN Normal 5-10 [facility] Comment on above: Order Comment: #[id number] MEDTOX Performed By: #### L 505.5000, L801.1541 #### [facility] [address] [place], [address] BACTERIA 0 SEEN Normal None Seen [facility] Comment on above: Order Comment: #[id number] MEDTOX Performed By: #### L 505.5000, L801.1541 #### [facility] [address] [place], [address] Mucus Ql (Urine sed) 0 SEEN Normal [facility] Comment on above: Order Comment: [facility]76 4563 MEDTOX Performed By: #### L 505.5000, L801.1541 #### [facility] [address] [place], [address] RBC 0 SEEN Normal 0-5 [facility] Comment on above: Order Comment: [facility]76 4563 MEDTOX Performed By: #### L 505.5000, L801.1541 #### [facility] [address] [place], [address] WBC 0 SEEN Normal 0-5 [facility] Comment on above: Order Comment: [facility]76 4563 MEDTOX Performed By: #### L 505.5000, L801.1541 #### [facility] [address] [place], [address] Urine Drug Screen (VISTA)on 04-10-2024 AMPHETAMINES Normal <1000 ng/mL [facility] Comment on above: Result Comment: PT L EFT AMA Performed By: #### L 505.5000, L801.1541 #### [facility] [address] [place], [address] BARBITIURATES Normal < 200 ng/mL [facility] Comment on above: Result Comment: PT L EFT AMA Performed By: #### L 505.5000, L801.1541 #### [facility] [address] [place], [address] BENZODIAZIPINE Normal < 200 ng/mL [facility] Comment on above: Result Comment: PT L EFT AMA Performed By: #### L 505.5000, L801.1541 #### [facility] [address] [place], [address] COCAINE Normal < 300 ng/mL [facility] Comment on above: Result Comment: PT L EFT AMA Performed By: #### L 505.5000, L801.1541 #### [facility] [address] [place], [address] DRUG CONFIRM Normal [facility] Comment on above: Result Comment: PT L EFT AMA Performed By: #### L 505.5000, L801.1541 #### [facility] [address] [place], [address] ECSTACY Normal < 500 ng/mL [facility] Comment on above: Result Comment: PT L EFT AMA Performed By: #### L 505.5000, L801.1541 #### [facility] [address] [place], [address] METHADONE Normal < 300 ng/mL [facility] Comment on above: Result Comment: PT L EFT AMA Performed By: #### L 505.5000, L801.1541 #### [facility] [address] [place], [address] OPIATES Normal < 300 ng/mL [facility] Comment on above: Result Comment: PT L EFT AMA Performed By: #### L 505.5000, L801.1541 #### [facility] [address] [place], [address] PCP Normal < 25 ng/mL [facility] Comment on above: Result Comment: PT L EFT AMA Performed By: #### L 505.5000, L801.1541 #### [facility] [address] [place], [address] THC Normal < 50 ng/mL [facility] Comment on above: Result Comment: PT L EFT AMA Performed By: #### L 505.5000, L801.1541 #### [facility] [address] [place], [address] VISTA UDS PH Normal [facility] Comment on above: Result Comment: PT L EFT AMA Performed By: #### L 505.5000, L801.1541 #### [facility] [address] [place], [address] Vitamin B12on 04-10-2024 Cobalamin (Vitamin B12) [Mass/Vol] 520 pg/mL Normal 211-911 [facility] Comment on above: Performed By: #### L 501.2450 #### [facility] [address] [place], [address] ANES POSTPROC EVALon 024 ANES POSTPROC EVAL HNO ID: [id number] Author: SAMANTHA NOVA MD Service: Anesthesiology Author Type: Anesthesiologist Type: Anesthesia Postprocedure Evaluation Filed: 04/09/2024 15:58 Note Text: POST ANESTHESIA EVALUATION NOTE : 1980 Procedure Summary Date: 04/09/24 Room / Location: [facility] Anesthesia Start: 807 Anesthesia Stop: 957 Procedure: [...] April 09, 2024 TIME: 3:58 PM CSN: [id number] [facility] ANES PRE-OPon 04-09-2024 ANES PRE-OP HNO ID: [id number] Author: SAMANTHA NOVA MD Service: Anesthesiology Author Type: Anesthesiologist Type: Anesthesia Preprocedure Evaluation Filed: 04/09/2024 07:56 Note Text: ANESTHESIOLOGY DAY OF SURGERY NOTE : 1980 Procedure Information Date/Time: 04/09/24 0800 Scheduled providers: Roel Mosley MD Procedure: ERCP Location: [facility] Estimated body mass index is 22.31 kg/m? [...] none. Vitals Value Taken Time BP 115/78 04/09/24 0747 Pulse 89 04/09/24 0747 Resp 11 04/09/24 0747 Temp 36.9 ?C (98.4 ?F) 04/09/24 0747 SpO2 99 % 04/09/24 0747 Outpatient Medications as of 04/09/2024 Medication Sig [...] DATE: April 09, 2024 TIME: 7:52 AM CSN: [id number] [facility] 04-09-2024 CNPN Telephone ([facility]) ----- MELVA KERNS ([id number]) 1980 F Date Time Provider Department 04/09/24 ROEL MOSLEY During your visit today, we recorded the following information about you: Allergies As of Date: 04/09/2024 (No Known Allergies) Date Reviewed: 04/09/2024 Reviewed by: Bessie Tavera RN - Fully Assessed Primary Visit Diagnosis: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 Referring Physician: Carlos Davis MD (Referring MD) Medicines: Indomethacin 100 mg [place] Complications: No immediate complications. Procedure: Pre-Anesthesia Assessment: [...] A biliary stent was visible on the front office agent film. The esophagus was successfully intubated under [...] (more content not included)... Normal 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 Referring Physician: Carlos Davis MD (Referring MD) Medicines: Indomethacin 100 mg [place] Complications: No immediate complications. Procedure: Pre-Anesthesia Assessment: [...] A biliary stent was visible on the front office agent film. The esophagus was successfully intubated under [...] sphincterotome. C (more content not included)... [facility] Radiology Study observation (narrative) [facility] HISTORY PHYSICALon HISTORY PHYSICAL HNO ID: [id number] Author: GERI STROUD APRN.LOSS PREVENTION INVESTIGATOR Service: Anesthesiology Author Type: Nurse Practitioner Type: H&P Filed: 04/09/2024 08:17 Note Text: HISTORY AND PHYSICAL EXAMINATION Melva Kerns 1980 [...] (more content not included)... Normal [facility] XR ERCP READ ONLYon 04-09-20 XR ERCP READ ONLY * * *Final Report* * * DATE OF EXAM: Apr 09 2024 12:17PM [facility] 5565 - XR ERCP READ ONLY / [...] to real-time operative report for further details. Disease Case Manager Rn: PSCB Transcribe Date/Time: Apr 16 2024 3:06P Dictated by : AFSHIN HOLLOWAY DO This examination was interpreted and the report reviewed and electronically signed by: AFSHIN HOLLOWAY DO on Apr 16 2024 3:11PM EST [id number] Normal [facility] 04-03-2024 [facility] Telephone ([facility]) ----- MELVA KERNS ([id number]) 1980 F Date Time Provider Department 04/03/24 YUE MARCUM During your visit today, we recorded the following information about you: Yue Marcum APRN.LOSS PREVENTION INVESTIGATOR 04/03/2024 4:19 PM Signed Patient no-show to PAT today. Email communication sent to schedulers. Patient will need to be rescheduled. Patient is scheduled for surgery with Dr. Davis on 04/10/2024 @ [place] [facility] Allergies As of Date: 04/03/2024 (No Known Allergies) Date Reviewed: 12/05/2023 Reviewed by: Kalli Crooks, RN - Fully Assessed Prescriptions as of 04/03/2024 [...] of 08/14/2012: No daily medications Medardo Gonzalez Mold Unloader Problem List As Of Date 04/03/2024 Noted [...] Encounter Status:Closed by SHOULDERS, YUE on 04/03/24 Normal [facility] Abdomen/Pelvis W IV Cont ONL Yon 01-13-2024 Abdomen/Pelvis W IV Cont ONLY [facility] Imaging Services [address] [place] [address] Abdomen/Pelvis W IV Cont ONLY MR#: [id number] Acct: [id number] Name: MELVA KERNS Rep #: [id number] : 1980 F 43 From: Baron Sanchez MD PCP: Care Physician,No Primary Status: REG ER Study: Abdomen/Pelvis W IV Cont ONLY Date of Exam: Exam# [id number] Ordering Dr: Cong Marquez DO [id number] EXAM: CT ABDOMEN AND PELVIS WITH INTRAVENOUS [...] Signed: Baron Sanchez MD at 8:14 EDT Reading Location ID and State: [facility] / [place] , Service support , CC: Cong Marquez DO; No Primary Care Physician Disease Case Manager Rn: Signed Normal [facility] Basic Metabolic Profile (BMP )on 01-13-2024 BUN/CRE 10.6 RATIO Normal - [facility] Comment on above: Performed By: #### L 503.6005 #### [facility] [address] [place], [address] CA,Total 9.0 mg/dL Normal 8.5-10.1 [facility] Comment on above: Performed By: #### L 503.6005 #### [facility] [address] [place], [address] Chloride [Moles/Vol] 106 mmol/L Normal 98-107 [facility] Comment on above: Performed By: #### L 503.6005 #### [facility] [address] [place], [address] CO2 [Moles/Vol] 26.0 mmol/L Normal 21.0-32.0 [facility] Comment on above: Performed By: #### L 503.6005 #### [facility] [address] [place], [address] Creatinine [Mass/Vol] 0.95 mg/dL Normal 0.55-1.02 [facility] Comment on above: Result Comment: The validity of the calculated GFR GFRAA in patients over 70 years has not been determined. Clinical correlation is essential. Performed By: #### L 503.6005 #### [facility] [address] [place], [address] ECRCL 65.26 ml/min Normal [facility] Comment on above: Performed By: #### L 503.6005 #### [facility] [address] [place], [address] EST GFR - AA 82 mL/min Normal >60 [facility] Comment on above: Result Comment: Afri can Gibral[place]arian GFR Calc Performed By: #### L 503.6005 #### [facility] [address] [place], [address] GAP 5 Normal 5-15 [facility] Comment on above: Performed By: #### L 503.6005 #### [facility] [address] [place], [address] GFR/1.73 sq M.predicted among non-blacks MDRD (S/P/Bld) [Vol rate/Area] 68 mL/min/{1.73_m2} Normal >60 [facility] Comment on above: Result Comment: Non- GFR Calc Performed By: #### L 503.6005 #### [facility] [address] [place], [address] Glucose [Mass/Vol] 112 mg/dL High 74-106 [facility] Comment on above: Result Comment: Fast ing Glucose result from 100 to 125 mg/dL suggests IMPAIRED HOMEOSTASIS per A.D.A. criteria. Performed By: #### L 503.6005 #### [facility] [address] [place], [address] Potassium [Moles/Vol] 4.0 mmol/L Normal 3.5-5.1 [facility] Comment on above: Result Comment: Mode rate Hemolysis, Result may be falsely increased. Performed By: #### L 503.6005 #### [facility] [address] [place], [address] Sodium [Moles/Vol] 137 mmol/L Normal 136-145 [facility] Comment on above: Performed By: #### L 503.6005 #### [facility] [address] [place], [address] Urea nitrogen [Mass/Vol] 10 mg/dL Normal 7-18 [facility] Comment on above: Performed By: #### L 503.6005 #### [facility] [address] [place], [address] CBC W/Diff, Automatedon 08-1 0-2024 Absolute Lymph 2.87 X10 3/uL Normal 0.83-4.51 [facility] Comment on above: Performed By: #### L 503.6005 #### [facility] [address] [place], [address] Absolute Neut 4.3 X10 3/uL Normal 2.0-7.7 [facility] Comment on above: Performed By: #### L 503.6005 #### [facility] [address] [place], [address] Basophils/100 WBC (Bld) 0.6 % Normal 0-1 [facility] Comment on above: Performed By: #### L 503.6005 #### [facility] [address] [place], [address] Eosinophils/100 WBC (Bld) 2.6 % Normal 0-5 [facility] Comment on above: Performed By: #### L 503.6005 #### [facility] [address] [place], [address] Erythrocyte distribution width (RBC) [Ratio] 13.8 % Normal 11.6-14.6 [facility] Comment on above: Performed By: #### L 503.6005 #### [facility] [address] [place], [address] Hematocrit (Bld) [Volume fraction] 42.0 % Normal 37-47 [facility] Comment on above: Performed By: #### L 503.6005 #### [facility] [address] [place], [address] Hemoglobin (Bld) [Mass/Vol] 14.0 g/dL Normal 12.0-15.0 [facility] Comment on above: Performed By: #### L 503.6005 #### [facility] [address] [place], [address] IG% 0.400 Normal 0.0-0.9 [facility] Comment on above: Result Comment: IG% - Immature Granulocytes (promyelocytes, myelocytes and metamyelocytes) > 1% indicates that a LEFT SHIFT is Present. Performed By: #### L 503.6005 #### [facility] [address] [place], [address] Lymphocytes/100 WBC (Bld) 35.6 % Normal 19-41 [facility] Comment on above: Performed By: #### L 503.6005 #### [facility] [address] [place], [address] MCH (RBC) [Entitic mass] 29.0 pg Normal 27.0-32.0 [facility] Comment on above: Performed By: #### L 503.6005 #### [facility] [address] [place], [address] MCHC (RBC) [Mass/Vol] 33.3 g/dL Normal 32-36 [facility] Comment on above: Performed By: #### L 503.6005 #### [facility] [address] [place], [address] MCV (RBC) [Entitic vol] 87.0 fL Normal 81-99 [facility] Comment on above: Performed By: #### L 503.6005 #### [facility] [address] [place], [address] Monocytes/100 WBC (Bld) 7.3 % Normal 0-10 [facility] Comment on above: Performed By: #### L 503.6005 #### [facility] [address] [place], [address] Neutrophils/100 WBC (Bld) 53.5 % Normal 47-70 [facility] Comment on above: Performed By: #### L 503.6005 #### [facility] [address] [place], [address] Nucleated RBC (Bld) [#/Vol] 0 10*3/uL Normal 0-5 [facility] Comment on above: Performed By: #### L 503.6005 #### [facility] [address] [place], [address] Platelet mean volume (Bld) [Entitic vol] 9.8 fL Normal 6.2-12.0 [facility] Comment on above: Performed By: #### L 503.6005 #### [facility] [address] [place], [address] Platelets (Bld) [#/Vol] 260 10*3/uL Normal 150-450 [facility] Comment on above: Performed By: #### L 503.6005 #### [facility] [address] [place], [address] RBC (Bld) [#/Vol] 4.83 10*6/uL Normal 4.2-5.4 [facility] Comment on above: Performed By: #### L 503.6005 #### [facility] [address] [place], [address] RDW SD 43.8 fl Normal 35.1-43.9 [facility] Comment on above: Performed By: #### L 503.6005 #### [facility] [address] [place], [address] WBC (Bld) [#/Vol] 8.1 10*3/uL Normal 4.4-11.0 [facility] Comment on above: Performed By: #### L 503.6005 #### [facility] [address] [place], [address] Emergency Department Summary on 01-13-2024 Emergency Department Summary [facility] Medical Records Department [address] [place] [address] Emergency Department Summary 01/13/24 MR#: [id number] Acct: [id number] Name: MELVA KERNS Rep #: [id number] : 1980 43 From: Cong Marquez DO [...] the increase in pain presents for evaluation [facility] Medical History Biliary stricture History of alcohol [...] Signs: 01/13/24 (more content not included)... Normal [facility] Lactic Acidon 01-13-2024 Lactate [Moles/Vol] 1.0 mmol/L Normal 0.4-1.9 [facility] Comment on above: Order Comment: Y Performed By: #### L 503.6005 #### [facility] [address] [place], [address] Lipaseon 01-13-2024 Lipase [Catalytic activity/Vol] 36 U/L Normal 13-75 [facility] Comment on above: Result Comment: Plea note: LIPASE revised reference range effective 22. New Lipase methodology. Expected to produce lower values than the previous assay method. NEW Reference Range: 13 - 75 U/L Performed By: #### L 501.2450 #### [facility] [address] [place], [address] Liver Profileon 01-13-2024 Albumin [Mass/Vol] 3.6 g/dL Normal 3.2-5.0 [facility] Comment on above: Performed By: #### L 501.2450 #### [facility] [address] [place], [address] ALK P 97 U/L Normal 45-117 [facility] Comment on above: Performed By: #### L 501.2450 #### [facility] [address] [place], [address] ALT [Catalytic activity/Vol] 22 U/L Normal 13-56 [facility] Comment on above: Performed By: #### L 501.2450 #### [facility] [address] [place], [address] AST [Catalytic activity/Vol] 21 U/L Normal 15-37 [facility] Comment on above: Result Comment: Mode rate Hemolysis, Result may be falsely increased. Performed By: #### L 501.2450 #### [facility] [address] [place], [address] Bilirubin [Mass/Vol] 0.60 mg/dL Normal 0.20-1.00 [facility] Comment on above: Result Comment: For patients on eltrombopag therapy, use of Dimension [place] TBIL is not recommended. Performed By: #### L 501.2450 #### [facility] [address] [place], [address] Bilirubin.direct [Mass/Vol] 0.10 mg/dL Normal 0.00-0.30 [facility] Comment on above: Performed By: #### L 501.2450 #### [facility] [address] [place], [place], [address] Globulin (S) [Mass/Vol] 3.5 g/dL Normal 2.2-4.2 [facility] Comment on above: Performed By: #### L 501.2450 #### [facility] [address] [place], [place], [address] T PROT 7.1 g/dL Normal 6.4-8.2 [facility] Comment on above: Performed By: #### L 501.2450 #### [facility] [address] [place], [place], [address] ,Serum,hCG Quali.on 01-13-2024 HCG, SERUM QUAL Negative Normal [facility] Comment on above: Performed By: #### L 503.6005 #### [facility] [address] [place], [place], [address] CNPNon 12-25-2023 CNPN Telephone (AGGASTW) ----- MELVA KERNS ([id number]) 1980 F Date Time Provider Department 12/25/23 CARLOS DAVIS AGGASTW During your visit today, we recorded the following information about you: Connie Fink 12/25/2023 11:17 AM Signed Surgery Checklist Type: Ercp Admission Type: outpatient Anesthesia: MAC Date: 04/10/24 Arrival Time: 8:00 Surgery Time: 9:00 Location: [facility] Patient mailed prep instructions Connie Fink [...] Status:Closed by CONNIE FINK on 12/25/23 [facility] Gregorio 12-06-2023 CNPN Telephone (AGGASTW) ----- MELVA KERNS ([id number]) 1980 F Date Time Provider Department 12/06/23 [...] VIVIEN - Fully Assessed Prescriptions as of 12/06/2023 [...] of 08/14/2012: No daily medications Medardo Gonzalez Mold Unloader Problem List As Of Date 12/06/2023 Noted [...] Encounter Status:Closed by CONNIE FINK on 12/06/23 [facility] ANES POSTPROC EVALon 024 ANES POSTPROC EVAL HNO ID: [id number] Author: MANOJ MYERS MD Service: Anesthesiology Author Type: Anesthesiologist Type: Anesthesia Postprocedure Evaluation Filed: 12/05/2023 11:56 Note Text: POST ANESTHESIA EVALUATION NOTE : 1980 Procedure Summary Date: 12/05/23 Room / Location: [facility] Anesthesia Start: 813 Anesthesia Stop: 924 Procedure: [...] Toradol. Anesthesia Observations No Documentation SIGNATURE: Manoj Myers MD PATIENT NAME: Melva Kerns DATE: December 05, 2023 TIME: 11:56 AM CSN: [id number] [facility] ANES PRE-OPon 12-05-2023 ANES PRE-OP HNO ID: [id number] Author: MANOJ MYERS MD Service: Anesthesiology Author Type: Anesthesiologist Type: Anesthesia Preprocedure Evaluation Filed: 12/05/2023 07:50 Note Text: ANESTHESIOLOGY DAY OF SURGERY NOTE : 1980 Procedure Information Date/Time: 12/05/23 0800 Scheduled providers: Carlos Davis MD Procedure: ERCP Location: [place] [facility] Estimated body mass index is 22.31 kg/m? [...] none. Vitals Value Taken Time BP 106/78 12/05/23716 Pulse 80 12/05/23716 Resp 20 12/05/23716 Temp 36.7 ?C (98.1 [...] December 05, 2023 TIME: 7:49 AM CSN: [id number] [facility] ERCPon 12-05-2023 ERCP [facility] Gastrointestinal Endoscopy Patient Name: Melva Kerns Procedure Date: 12/05/2023 7:29 AM Date of : 1980 Admit Type: Outpatient Room: [place] [address] Gender: Female Note Status: Florist Helper Override Attending MD: Carlos Davis MD, [id number] Procedure: ERCP Indications: Stent change, Biliary stricture and pancreatic stricture Providers: Carlos Davis MD Patient Profile: This is a 43 year old female. Refer to note in patient chart for documentation of history and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 By: Leonel Chu on 05-29-2023 MCV (RBC) [Entitic vol] 91.3 fL 81-99 [facility] Hematocrit Auto (Bld) [Volum e fraction]Ordered By: Leonel Chu on 05-29-2023 Hematocrit (Bld) [Volume fraction] 36.8 % 37-47 [facility] Laboratory - Chemistry and C hemistry - challengeOrdered By: Leonel Chu on 05-29-2023 CO2 [Moles/Vol] 26.0 mmol/L 21.0-32.0 [facility] Lipase [Catalytic activity/Vol] 24 U/L 13-75 [facility] Comment on above: Please note:LIPASE r evised reference range effective 22. New Lipase methodology. Expected to produce lower values than the previous assay method. NEW Reference Range: 13 - 75 U/L Urea nitrogen/Creatinine [Mass ratio] 11.3 mg/mg 10-20 [facility] Laboratory - Hematology and Cell countsOrdered By: Leonel Chu on 05-29-2023 Erythrocyte distribution width (RBC) [Entitic vol] 45.7 fL 35.1-43.9 [facility] Erythrocyte distribution width (RBC) [Ratio] 13.5 % 11.6-14.6 [facility] Immature granulocytes/100 WBC (Bld) 0.300 % 0.0-0.9 [facility] Comment on above: IG% - Immature Granu locytes (promyelocytes, myelocytes and metamyelocytes) > 1% indicates that a LEFT SHIFT is Present. MCH (RBC) [Entitic mass] 30.8 pg 27.0-32.0 [facility] Nucleated RBC/100 WBC (Bld) [Ratio] 0 % 0-5 [facility] MCHC Auto (RBC) [Mass/Vol]Or dered By: Leonel Chu on 05-29-2023 MCHC (RBC) [Mass/Vol] 33.7 g/dL 32-36 [facility] No Panel InformationOrdered By: Leonel Chu on 05-29-2023 Estimated Creatinine Clearance Calc 70.38 ml/min [facility] Estimated GFR (MDRD) Amer 89 mL/min >60 [facility] Comment on above: GFR Calc Estimated GFR (MDRD) Non-Af Amer 74 mL/min >60 [facility] Comment on above: Non- GFR Calc Platelets bldOrdered By: Steven Chu on 05-29-2023 Platelets (Bld) [#/Vol] 478 10*3/uL 150-450 [facility] Serum or plasma calcium emma urement (mass/volume)Ordered By: Leonel Chu on 05-29-2023 Calcium [Mass/Vol] 9.5 mg/dL 8.5-10.1 [facility] Serum or plasma creatinine m easurement (mass/volume)Ordered By: Leonel Chu on 05-29-2023 Creatinine [Mass/Vol] 0.89 mg/dL 0.55-1.02 [facility] Comment on above: The validity of the calculated GFR & GFRAA in patients over 70 years has not been determined. Clinical correlation is essential. Serum or plasma urea nitroge n measurement (mass/volume)Ordered By: Leonel Chu on 05-29-2023 Urea nitrogen [Mass/Vol] 10 mg/dL 7-18 [facility] Thin prep Papanicolaou smear with manual screeningOrdered By: Leonel Chu on 05-29-2023 Thin prep Papanicolaou smear with manual screening 5 5-15 [facility] Absolute lymphocyte countOrd ered By: Charles Johansen on 05-09-2023 Lymphocytes Auto (Unsp spec) [#/Vol] 2.68 10*3/uL 0.83-4.51 [facility] Basophil percentageOrdered B y: Charles Johansen on 05-09-2023 Basophils/100 WBC (Bld) 0.1 % 0-1 [facility] Bilirubin [Mass/Vol] 0.20 mg/dL 0.20-1.00 [facility] Comment on above: For patients on eltr ombopag therapy, use of [place] TBIL is not recommended. Chloride [Moles/Vol] 106 mmol/L 98-107 [facility] Eosinophils/100 WBC (Bld) 0.2 % 0-5 [facility] Glucose [Mass/Vol] 121 mg/dL 74-106 [facility] Comment on above: Fasting Glucose resu lt from 100 to 125 mg/dL suggests IMPAIRED HOMEOSTASIS per A.D.A. criteria. Neutrophils (Bld) [#/Vol] 11.1 10*3/uL 2.0-7.7 [facility] Neutrophils/100 WBC (Bld) 75.3 % 47-70 [facility] Potassium [Moles/Vol] 3.4 mmol/L 3.5-5.1 [facility] Protein [Mass/Vol] 7.2 g/dL 6.4-8.2 [facility] Sodium [Moles/Vol] 139 mmol/L 136-145 [facility] WBC (Bld) [#/Vol] 14.8 10*3/uL 4.4-11.0 [facility] Blood erythrocytes count (nu mber/volume)Ordered By: Charles Johansen on 05-09-2023 RBC (Bld) [#/Vol] 4.30 10*6/uL 4.2-5.4 [facility] Blood hemoglobin measurement (mass/volume)Ordered By: Charles Johansen on 05-09-2023 Hemoglobin (Bld) [Mass/Vol] 13.3 g/dL 12.0-15.0 [facility] Blood lymphocytes/100 leukoc ytesOrdered By: Charles Johansen on 05-09-2023 Lymphocytes/100 WBC (Bld) 18.1 % 19-41 [facility] Blood monocytes/100 leukocyt esOrdered By: Charles Johansen on 05-09-2023 Monocytes/100 WBC (Bld) 6.0 % 0-10 [facility] Blood platelet mean volumeOr dered By: Charles Johansne on 05-09-2023 Platelet mean volume (Bld) [Entitic vol] 9.3 fL 6.2-12.0 [facility] Determination of erythrocyte mean corpuscular volume (MCV)Ordered By: Charles Johansen on 05-09-2023 MCV (RBC) [Entitic vol] 92.3 fL 81-99 [facility] Direct bilirubinOrdered By: Charles Johansen on 05-09-2023 Bilirubin.direct [Mass/Vol] 0.09 mg/dL 0.00-0.30 [facility] Hematocrit Auto (Bld) [Volum e fraction]Ordered By: Charles Johansen on 05-09-2023 Hematocrit (Bld) [Volume fraction] 39.7 % 37-47 [facility] INR in Blood by Coagulation assayOrdered By: Charles Johansen on 05-09-2023 INR Coag (Bld) [Relative time] 0.9 {INR} [facility] Laboratory - Chemistry and C hemistry - challengeOrdered By: Charles Johansen on 05-09-2023 ALP [Catalytic activity/Vol] 122 U/L 45-117 [facility] ALT [Catalytic activity/Vol] 21 U/L 13-56 [facility] CO2 [Moles/Vol] 28.0 mmol/L 21.0-32.0 [facility] Globulin (S) [Mass/Vol] 3.7 g/dL 2.2-4.2 [facility] Lipase [Catalytic activity/Vol] 72 U/L 13-75 [facility] Comment on above: Please note:LIPASE r evised reference range effective 22. New Lipase methodology. Expected to produce lower values than the previous assay method. NEW Reference Range: 13 - 75 U/L Urea nitrogen/Creatinine [Mass ratio] 12.6 mg/mg 10-20 [facility] Laboratory - CoagulationOrde red By: Charles Johansen on 05-09-2023 PT Coag (PPP) [Time] 12.4 s 11.7-14.9 [facility] Laboratory - Hematology and Cell countsOrdered By: Charles Johansen on 05-09-2023 Erythrocyte distribution width (RBC) [Entitic vol] 47.3 fL 35.1-43.9 [facility] Erythrocyte distribution width (RBC) [Ratio] 14.1 % 11.6-14.6 [facility] Immature granulocytes/100 WBC (Bld) 0.300 % 0.0-0.9 [facility] Comment on above: IG% - Immature Granu locytes (promyelocytes, myelocytes and metamyelocytes) > 1% indicates that a LEFT SHIFT is Present. MCH (RBC) [Entitic mass] 30.9 pg 27.0-32.0 [facility] Nucleated RBC/100 WBC (Bld) [Ratio] 0 % 0-5 [facility] MCHC Auto (RBC) [Mass/Vol]Or dered By: Charles Johansen on 05-09-2023 MCHC (RBC) [Mass/Vol] 33.5 g/dL 32-36 [facility] No Panel InformationOrdered By: Charles Johansen on 05-09-2023 Ethyl Alcohol Level < 3.0 mg/dL [facility] Comment on above: The serum:whole bloo d ethanol ratio is approximately 1.14and varies slightly with hematocrit. Medical Alcohol reference interval and critical value innon-tolerant individuals; 50 - 100 Impairment 100 Intoxication 100 - 250 Severe Poisoning 250 - 400 Deep/possible fatal coma Estimated Creatinine Clearance Calc 65.94 ml/min [facility] Estimated GFR (MDRD) Amer 82 mL/min >60 [facility] Comment on above: GFR Calc Estimated GFR (MDRD) Non-Af Amer 68 mL/min >60 [facility] Comment on above: Non- GFR Calc Platelets bldOrdered By: Marlon Johansen on 05-09-2023 Platelets (Bld) [#/Vol] 299 10*3/uL 150-450 [facility] Serum or plasma albumin emma urement (mass/volume)Ordered By: Charles Johansen on 05-09-2023 Albumin [Mass/Vol] 3.5 g/dL 3.2-5.0 [facility] Serum or plasma calcium emma urement (mass/volume)Ordered By: Charles Johansen on 05-09-2023 Calcium [Mass/Vol] 8.7 mg/dL 8.5-10.1 [facility] Serum or plasma creatinine m easurement (mass/volume)Ordered By: Charles Johansen on 05-09-2023 Creatinine [Mass/Vol] 0.95 mg/dL 0.55-1.02 [facility] Comment on above: The validity of the calculated GFR & GFRAA in patients over 70 years has not been determined. Clinical correlation is essential. Serum or plasma urea nitroge n measurement (mass/volume)Ordered By: Charles Johansen on 05-09-2023 Urea nitrogen [Mass/Vol] 12 mg/dL 7-18 [facility] Thin prep Papanicolaou smear with manual screeningOrdered By: Charles Johansen on 05-09-2023 Thin prep Papanicolaou smear with manual screening 10 U/L 15-37 [facility] Thin prep Papanicolaou smear with manual screening 5 5-15 [facility] EGD - THERAPEUTIC, EUS, OR T UBE INTERVENTIONSon 05-08-2023 [facility] HCG QUAL URon 05-08-2023 HCG ( test) Ql (U) Negative Negative [facility] Absolute lymphocyte countOrd ered By: Gualberto Sabillon on 04-11-2023 Lymphocytes Auto (Unsp spec) [#/Vol] 2.23 10*3/uL 0.83-4.51 [facility] Basophil percentageOrdered B y: Gualberto Sabillon on 04-11-2023 Basophils/100 WBC (Bld) 0.4 % 0-1 [facility] Bilirubin [Mass/Vol] 0.40 mg/dL 0.20-1.00 [facility] Comment on above: For patients on eltr ombopag therapy, use of [place] TBIL is not recommended. Chloride [Moles/Vol] 105 mmol/L 98-107 [facility] Eosinophils/100 WBC (Bld) 2.1 % 0-5 [facility] Glucose [Mass/Vol] 98 mg/dL 74-106 [facility] Neutrophils (Bld) [#/Vol] 5.4 10*3/uL 2.0-7.7 [facility] Neutrophils/100 WBC (Bld) 63.2 % 47-70 [facility] Potassium [Moles/Vol] 3.1 mmol/L 3.5-5.1 [facility] Protein [Mass/Vol] 7.0 g/dL 6.4-8.2 [facility] Sodium [Moles/Vol] 137 mmol/L 136-145 [facility] WBC (Bld) [#/Vol] 8.6 10*3/uL 4.4-11.0 [facility] Beta hCG serum qualOrdered B y: Gualberto Sabillon on 04-11-2023 Beta HCG ( test) Ql Negative [facility] Blood erythrocytes count (nu mber/volume)Ordered By: Gualberto Sabillon on 04-11-2023 RBC (Bld) [#/Vol] 4.19 10*6/uL 4.2-5.4 [facility] Blood hemoglobin measurement (mass/volume)Ordered By: Gualberto Sabillon on 04-11-2023 Hemoglobin (Bld) [Mass/Vol] 12.8 g/dL 12.0-15.0 [facility] Blood lymphocytes/100 leukoc ytesOrdered By: Gualberto Sabillon on 04-11-2023 Lymphocytes/100 WBC (Bld) 26.0 % 19-41 [facility] Blood monocytes/100 leukocyt esOrdered By: Gualberto Sabillon on 04-11-2023 Monocytes/100 WBC (Bld) 7.7 % 0-10 [facility] Blood platelet mean volumeOr dered By: Gualberto Sabillon on 04-11-2023 Platelet mean volume (Bld) [Entitic vol] 9.5 fL 6.2-12.0 [facility] Determination of erythrocyte mean corpuscular volume (MCV)Ordered By: Gualberto Sabillon on 04-11-2023 MCV (RBC) [Entitic vol] 92.6 fL 81-99 [facility] Direct bilirubinOrdered By: Gualberto Sabillon on 04-11-2023 Bilirubin.direct [Mass/Vol] 0.12 mg/dL 0.00-0.30 [facility] Hematocrit Auto (Bld) [Volum e fraction]Ordered By: Gualberto Sabillon on 04-11-2023 Hematocrit (Bld) [Volume fraction] 38.8 % 37-47 [facility] Laboratory - Chemistry and C hemistry - challengeOrdered By: Gualberto Sabillon on 04-11-2023 ALP [Catalytic activity/Vol] 120 U/L 45-117 [facility] ALT [Catalytic activity/Vol] 17 U/L 13-56 [facility] CO2 [Moles/Vol] 27.0 mmol/L 21.0-32.0 [facility] Globulin (S) [Mass/Vol] 3.7 g/dL 2.2-4.2 [facility] Lipase [Catalytic activity/Vol] 296 U/L 13-75 [facility] Comment on above: Please note:LIPASE r evised reference range effective 22. New Lipase methodology. Expected to produce lower values than the previous assay method. NEW Reference Range: 13 - 75 U/L Urea nitrogen/Creatinine [Mass ratio] 18.8 mg/mg 10-20 [facility] Laboratory - Hematology and Cell countsOrdered By: Gualberto Sabillon on 04-11-2023 Erythrocyte distribution width (RBC) [Entitic vol] 48.4 fL 35.1-43.9 [facility] Erythrocyte distribution width (RBC) [Ratio] 14.3 % 11.6-14.6 [facility] Immature granulocytes/100 WBC (Bld) 0.600 % 0.0-0.9 [facility] Comment on above: IG% - Immature Granu locytes (promyelocytes, myelocytes and metamyelocytes) > 1% indicates that a LEFT SHIFT is Present. MCH (RBC) [Entitic mass] 30.5 pg 27.0-32.0 [facility] Nucleated RBC/100 WBC (Bld) [Ratio] 0 % 0-5 [facility] MCHC Auto (RBC) [Mass/Vol]Or dered By: Gualberto Sabillon on 04-11-2023 MCHC (RBC) [Mass/Vol] 33.0 g/dL 32-36 [facility] No Panel InformationOrdered By: Gualberto Sabillon on 04-11-2023 Estimated Creatinine Clearance Calc 97.87 ml/min [facility] Estimated GFR (MDRD) Amer 130 mL/min >60 [facility] Comment on above: GFR Calc Estimated GFR (MDRD) Non-Af Amer 107 mL/min >60 [facility] Comment on above: Non- GFR Calc Ethyl Alcohol Level < 3.0 mg/dL [facility] Comment on above: The serum:whole bloo d ethanol ratio is approximately 1.14and varies slightly with hematocrit. Medical Alcohol reference interval and critical value innon-tolerant individuals; 50 - 100 Impairment 100 Intoxication 100 - 250 Severe Poisoning 250 - 400 Deep/possible fatal coma Platelets bldOrdered By: Alberto Sabillon on 04-11-2023 Platelets (Bld) [#/Vol] 327 10*3/uL 150-450 [facility] Serum or plasma albumin emma urement (mass/volume)Ordered By: Gualberto Sabillon on 04-11-2023 Albumin [Mass/Vol] 3.3 g/dL 3.2-5.0 [facility] Serum or plasma calcium emma urement (mass/volume)Ordered By: Gualberto Sabillon on 04-11-2023 Calcium [Mass/Vol] 8.6 mg/dL 8.5-10.1 [facility] Serum or plasma creatinine m easurement (mass/volume)Ordered By: Gualberto Sabillon on 04-11-2023 Creatinine [Mass/Vol] 0.64 mg/dL 0.55-1.02 [facility] Comment on above: The validity of the calculated GFR & GFRAA in patients over 70 years has not been determined. Clinical correlation is essential. Serum or plasma urea nitroge n measurement (mass/volume)Ordered By: Gualberto Sabillon on 04-11-2023 Urea nitrogen [Mass/Vol] 12 mg/dL 7-18 [facility] Thin prep Papanicolaou smear with manual screeningOrdered By: Gualberto Sabillon on 04-11-2023 Thin prep Papanicolaou smear with manual screening 13 U/L 15-37 [facility] Thin prep Papanicolaou smear with manual screening 5 5-15 [facility] Absolute lymphocyte countOrd ered By: Ronni Lemos on 02-22-2023 Lymphocytes Auto (Unsp spec) [#/Vol] 2.37 10*3/uL 0.83-4.51 [facility] Basophil percentageOrdered B y: Ronni Lemos on 02-22-2023 Basophils/100 WBC (Bld) 0.6 % 0-1 [facility] Bilirubin [Mass/Vol] 0.30 mg/dL 0.20-1.00 [facility] Comment on above: For patients on eltr ombopag therapy, use of [place] TBIL is not recommended. Chloride [Moles/Vol] 103 mmol/L 98-107 [facility] Eosinophils/100 WBC (Bld) 1.9 % 0-5 [facility] Glucose [Mass/Vol] 116 mg/dL 74-106 [facility] Comment on above: Fasting Glucose resu lt from 100 to 125 mg/dL suggests IMPAIRED HOMEOSTASIS per A.D.A. criteria. Neutrophils (Bld) [#/Vol] 6.3 10*3/uL 2.0-7.7 [facility] Neutrophils/100 WBC (Bld) 65.1 % 47-70 [facility] Potassium [Moles/Vol] 3.9 mmol/L 3.5-5.1 [facility] Protein [Mass/Vol] 7.6 g/dL 6.4-8.2 [facility] Sodium [Moles/Vol] 135 mmol/L 136-145 [facility] WBC (Bld) [#/Vol] 9.8 10*3/uL 4.4-11.0 [facility] Bilirubin Test strip Ql (U)O rdered By: Ronni Lemos on 02-22-2023 Bilirubin Ql (U) Negative Negative [facility] Blood erythrocytes count (nu mber/volume)Ordered By: Ronni Lemos on 02-22-2023 RBC (Bld) [#/Vol] 4.19 10*6/uL 4.2-5.4 [facility] Blood hemoglobin measurement (mass/volume)Ordered By: Ronni Lemos on 02-22-2023 Hemoglobin (Bld) [Mass/Vol] 13.1 g/dL 12.0-15.0 [facility] Blood lymphocytes/100 leukoc ytesOrdered By: Ronni Lemos on 02-22-2023 Lymphocytes/100 WBC (Bld) 24.3 % 19-41 [facility] Blood monocytes/100 leukocyt esOrdered By: Ronni Lemos on 02-22-2023 Monocytes/100 WBC (Bld) 7.8 % 0-10 [facility] Blood platelet mean volumeOr dered By: Ronni Lemos on 02-22-2023 Platelet mean volume (Bld) [Entitic vol] 10.0 fL 6.2-12.0 [facility] Determination of erythrocyte mean corpuscular volume (MCV)Ordered By: Ronni Lemos on 02-22-2023 MCV (RBC) [Entitic vol] 94.7 fL 81-99 [facility] Direct bilirubinOrdered By: Ronni Lemos on 09-20-2023 Bilirubin.direct [Mass/Vol] 0.08 mg/dL 0.00-0.30 [facility] Hematocrit Auto (Bld) [Volum e fraction]Ordered By: Ronni Lemos on 02-22-2023 Hematocrit (Bld) [Volume fraction] 39.7 % 37-47 [facility] Ketones Test strip Ql (U)Ord ered By: Ronni Lemos on 02-22-2023 Ketones Ql (U) Negative Negative [facility] Laboratory - Chemistry and C hemistry - challengeOrdered By: Ronni Lemos on 02-22-2023 HCG ( test) Ql (U) Negative [facility] Comment on above: Very dilute urine sp ecimens, as indicated by a low specificgravity, may not contain community service representative levels of hCG. If is still suspected, a first morning urinespecimen should be collected 48 hours later and tested. ALP [Catalytic activity/Vol] 93 U/L 45-117 [facility] ALT [Catalytic activity/Vol] 24 U/L 13-56 [facility] CO2 [Moles/Vol] 27.0 mmol/L 21.0-32.0 [facility] Globulin (S) [Mass/Vol] 3.8 g/dL 2.2-4.2 [facility] Lipase [Catalytic activity/Vol] 27 U/L 13-75 [facility] Comment on above: Please note:LIPASE r evised reference range effective 22. New Lipase methodology. Expected to produce lower values than the previous assay method. NEW Reference Range: 13 - 75 U/L Urea nitrogen/Creatinine [Mass ratio] 17.6 mg/mg 10-20 [facility] Laboratory - Hematology and Cell countsOrdered By: Ronni Lemos on 02-22-2023 Erythrocyte distribution width (RBC) [Entitic vol] 48.0 fL 35.1-43.9 [facility] Erythrocyte distribution width (RBC) [Ratio] 13.8 % 11.6-14.6 [facility] Immature granulocytes/100 WBC (Bld) 0.300 % 0.0-0.9 [facility] Comment on above: IG% - Immature Granu locytes (promyelocytes, myelocytes and metamyelocytes) > 1% indicates that a LEFT SHIFT is Present. MCH (RBC) [Entitic mass] 31.3 pg 27.0-32.0 [facility] Nucleated RBC/100 WBC (Bld) [Ratio] 0 % 0-5 [facility] MCHC Auto (RBC) [Mass/Vol]Or dered By: Ronni Lemos on 02-22-2023 MCHC (RBC) [Mass/Vol] 33.0 g/dL 32-36 [facility] Nitrite Test strip Ql (U)Ord ered By: Ronni Lemos on 02-22-2023 Nitrite Ql (U) Negative Negative [facility] No Panel InformationOrdered By: Ronni Lemos on 02-22-2023 Estimated Creatinine Clearance Calc 79.29 ml/min [facility] Estimated GFR (MDRD) Amer 101 mL/min >60 [facility] Comment on above: GFR Calc Estimated GFR (MDRD) Non-Af Amer 84 mL/min >60 [facility] Comment on above: Non- GFR Calc Platelets bldOrdered By: Felice Lemos on 02-22-2023 Platelets (Bld) [#/Vol] 366 10*3/uL 150-450 [facility] Protein Test strip Ql (U)Ord ered By: Ronni Lemos on 02-22-2023 Protein Ql (U) Negative Negative [facility] Serum or plasma albumin emma urement (mass/volume)Ordered By: Ronni Lemos on 02-22-2023 Albumin [Mass/Vol] 3.8 g/dL 3.2-5.0 [facility] Serum or plasma calcium emma urement (mass/volume)Ordered By: Ronni Lemos on 02-22-2023 Calcium [Mass/Vol] 9.2 mg/dL 8.5-10.1 [facility] Serum or plasma creatinine m easurement (mass/volume)Ordered By: Ronni Lemos on 02-22-2023 Creatinine [Mass/Vol] 0.79 mg/dL 0.55-1.02 [facility] Comment on above: The validity of the calculated GFR & GFRAA in patients over 70 years has not been determined. Clinical correlation is essential. Serum or plasma urea nitroge n measurement (mass/volume)Ordered By: Ronni Lemos on 02-22-2023 Urea nitrogen [Mass/Vol] 14 mg/dL 7-18 [facility] Thin prep Papanicolaou smear with manual screeningOrdered By: Ronni Lemos on 02-22-2023 Thin prep Papanicolaou smear with manual screening 14 U/L 15-37 [facility] Thin prep Papanicolaou smear with manual screening 5 5-15 [facility] Urine blood detectionOrdered By: Ronni Lemos on 02-22-2023 RBC Ql (U) Negative Negative [facility] Urine clarityOrdered By: Felice Lemos on 02-22-2023 Clarity (U) Clear Clear [facility] Urine color determinationOrd ered By: Ronni Lemos on 02-22-2023 Color (U) Yellow Yellow [facility] Urine glucose detectionOrder ed By: Ronni Lemos on 02-22-2023 Glucose Ql (U) Normal mg/dl Normal [facility] Urine leukocyte esterase det ection by dipstickOrdered By: Ronni Lemos on 02-22-2023 Leukocyte esterase Test strip Ql (U) 25 /ul Negative [facility] Urine pHOrdered By: Ronni marr on 02-22-2023 pH (U) 7.0 [pH] 5.0 - 8.0 [facility] Urine specific gravity measu rementOrdered By: Ronni Lemos on 02-22-2023 Specific gravity (U) [Rel density] 1.010 1.002-1.03 0 [facility] Urobilinogen Auto test strip Ql (U)Ordered By: Ronni Lemos on 02-22-2023 Urobilinogen Ql (U) Normal mg/dl Normal [facility] Absolute lymphocyte countOrd ered By: Lonnie Urena on 01-26-2023 Lymphocytes Auto (Unsp spec) [#/Vol] 1.86 10*3/uL 0.83-4.51 [facility] Basophil percentageOrdered B y: Lonnie Urena on 01-26-2023 Basophils/100 WBC (Bld) 0.6 % 0-1 [facility] Bilirubin [Mass/Vol] 0.20 mg/dL 0.20-1.00 [facility] Comment on above: For patients on eltr ombopag therapy, use of [place] TBIL is not recommended. Chloride [Moles/Vol] 105 mmol/L 98-107 [facility] Eosinophils/100 WBC (Bld) 3.7 % 0-5 [facility] Glucose [Mass/Vol] 103 mg/dL 74-106 [facility] Comment on above: Fasting Glucose resu lt from 100 to 125 mg/dL suggests IMPAIRED HOMEOSTASIS per A.D.A. criteria. LDH [Catalytic activity/Vol] 145 U/L 84-246 [facility] Neutrophils (Bld) [#/Vol] 5.5 10*3/uL 2.0-7.7 [facility] Neutrophils/100 WBC (Bld) 66.9 % 47-70 [facility] Potassium [Moles/Vol] 3.4 mmol/L 3.5-5.1 [facility] Protein [Mass/Vol] 7.2 g/dL 6.4-8.2 [facility] Sodium [Moles/Vol] 137 mmol/L 136-145 [facility] WBC (Bld) [#/Vol] 8.2 10*3/uL 4.4-11.0 [facility] Blood erythrocytes count (nu mber/volume)Ordered By: Lonnie Urena on 01-26-2023 RBC (Bld) [#/Vol] 3.96 10*6/uL 4.2-5.4 [facility] Blood hemoglobin measurement (mass/volume)Ordered By: Lonnie Urena on 01-26-2023 Hemoglobin (Bld) [Mass/Vol] 12.5 g/dL 12.0-15.0 [facility] Blood lymphocytes/100 leukoc ytesOrdered By: Lonnie Urena on 01-26-2023 Lymphocytes/100 WBC (Bld) 22.7 % 19-41 [facility] Blood monocytes/100 leukocyt esOrdered By: Lonnie Urena on 01-26-2023 Monocytes/100 WBC (Bld) 5.9 % 0-10 [facility] Blood platelet mean volumeOr dered By: Lonnie Urena on 01-26-2023 Platelet mean volume (Bld) [Entitic vol] 9.4 fL 6.2-12.0 [facility] Determination of erythrocyte mean corpuscular volume (MCV)Ordered By: Lonnie Urena on 01-26-2023 MCV (RBC) [Entitic vol] 98.0 fL 81-99 [facility] Hematocrit Auto (Bld) [Volum e fraction]Ordered By: Lonnie Urena on 01-26-2023 Hematocrit (Bld) [Volume fraction] 38.8 % 37-47 [facility] INR in Blood by Coagulation assayOrdered By: Lonnie Urena on 01-26-2023 INR Coag (Bld) [Relative time] 0.9 {INR} [facility] Laboratory - Chemistry and C hemistry - challengeOrdered By: [facility] on 01-26-2023 ALP [Catalytic activity/Vol] 89 U/L 45-117 [facility] ALT [Catalytic activity/Vol] 19 U/L 13-56 [facility] CO2 [Moles/Vol] 25.0 mmol/L 21.0-32.0 [facility] Globulin (S) [Mass/Vol] 3.6 g/dL 2.2-4.2 [facility] Urea nitrogen/Creatinine [Mass ratio] 16.2 mg/mg 10-20 [facility] Laboratory - CoagulationOrde red By: [facility] on 01-26-2023 aPTT Coag (Bld) [Time] 29.0 s 24.1-36.2 [facility] PT Coag (PPP) [Time] 12.1 s 11.7-14.9 [facility] Laboratory - Hematology and Cell countsOrdered By: [facility] on 01-26-2023 Erythrocyte distribution width (RBC) [Entitic vol] 49.3 fL 35.1-43.9 [facility] Erythrocyte distribution width (RBC) [Ratio] 13.6 % 11.6-14.6 [facility] Immature granulocytes/100 WBC (Bld) 0.200 % 0.0-0.9 [facility] Comment on above: IG% - Immature Granu locytes (promyelocytes, myelocytes and metamyelocytes) > 1% indicates that a LEFT SHIFT is Present. MCH (RBC) [Entitic mass] 31.6 pg 27.0-32.0 [facility] Nucleated RBC/100 WBC (Bld) [Ratio] 0 % 0-5 [facility] Auto (RBC) [Mass/Vol]Or dered By: Lonnie Urena on 01-26-2023 MCHC (RBC) [Mass/Vol] 32.2 g/dL 32-36 [facility] No Panel InformationOrdered By: Lonnie Urena on 01-26-2023 D-Dimer Quantitative (PE/DVT) < 0.27 FEU/ug/m 0.27-0.49 [facility] Comment on above: NORMAL D-Dimer level (<0.50) indicates no DVT or PE. Estimated Creatinine Clearance Calc 84.65 ml/min [facility] Estimated GFR (MDRD) Amer 110 mL/min >60 [facility] Comment on above: GFR Calc Estimated GFR (MDRD) Non-Af Amer 91 mL/min >60 [facility] Comment on above: Non- GFR Calc Platelets bldOrdered By: Jim Urena on 01-26-2023 Platelets (Bld) [#/Vol] 333 10*3/uL 150-450 [facility] Serum or plasma albumin emma urement (mass/volume)Ordered By: Lonnie Urena on 01-26-2023 Albumin [Mass/Vol] 3.6 g/dL 3.2-5.0 [facility] Serum or plasma albumin/glob ulin mass ratioOrdered By: Lonnie Urena on 01-26-2023 Albumin/Globulin [Mass ratio] 1.0 {ratio} 0.9-2.4 [facility] Serum or plasma calcium emma urement (mass/volume)Ordered By: Lonnie Urena on 01-26-2023 Calcium [Mass/Vol] 8.9 mg/dL 8.5-10.1 [facility] Serum or plasma creatinine m easurement (mass/volume)Ordered By: Lonnie Urena on 01-26-2023 Creatinine [Mass/Vol] 0.74 mg/dL 0.55-1.02 [facility] Comment on above: The validity of the calculated GFR & GFRAA in patients over 70 years has not been determined. Clinical correlation is essential. Serum or plasma urea nitroge n measurement (mass/volume)Ordered By: Lonnie Urena on 01-26-2023 Urea nitrogen [Mass/Vol] 12 mg/dL 7-18 [facility] Thin prep Papanicolaou smear with manual screeningOrdered By: Lonnie Urena on 01-26-2023 Thin prep Papanicolaou smear with manual screening 13 U/L 15-37 [facility] Thin prep Papanicolaou smear with manual screening 7 5-15 [facility] Absolute lymphocyte countOrd ered By: Sal Cassidy on 01-04-2023 Lymphocytes Auto (Unsp spec) [#/Vol] 0.83 10*3/uL 0.83-4.51 [facility] Basophil percentageOrdered B y: Sal Cassidy on 01-04-2023 Basophils/100 WBC (Bld) 0.4 % 0-1 [facility] Bilirubin [Mass/Vol] 0.20 mg/dL 0.20-1.00 [facility] Comment on above: For patients on eltr ombopag therapy, use of Dim[place] TBIL is not recommended. Chloride [Moles/Vol] 109 mmol/L 98-107 [facility] Eosinophils/100 WBC (Bld) 0.0 % 0-5 [facility] Glucose [Mass/Vol] 231 mg/dL 74-106 [facility] Comment on above: Glucose result great er than or equal to 200 mg/dLsuggests DIABETES MELLITUS per A.D.A. criteria. Neutrophils (Bld) [#/Vol] 3.7 10*3/uL 2.0-7.7 [facility] Neutrophils/100 WBC (Bld) 78.6 % 47-70 [facility] Potassium [Moles/Vol] 3.8 mmol/L 3.5-5.1 [facility] Protein [Mass/Vol] 6.0 g/dL 6.4-8.2 [facility] Sodium [Moles/Vol] 138 mmol/L 136-145 [facility] WBC (Bld) [#/Vol] 4.7 10*3/uL 4.4-11.0 [facility] Blood erythrocytes count (nu mber/volume)Ordered By: Sal Cassidy on 01-04-2023 RBC (Bld) [#/Vol] 3.36 10*6/uL 4.2-5.4 [facility] Blood hemoglobin measurement (mass/volume)Ordered By: Sal Cassidy on 01-04-2023 Hemoglobin (Bld) [Mass/Vol] 11.2 g/dL 12.0-15.0 [facility] Blood lymphocytes/100 leukoc ytesOrdered By: Sal Cassidy on 01-04-2023 Lymphocytes/100 WBC (Bld) 17.8 % 19-41 [facility] Blood monocytes/100 leukocyt esOrdered By: Sal Cassidy on 01-04-2023 Monocytes/100 WBC (Bld) 2.8 % 0-10 [facility] Blood platelet mean volumeOr dered By: Sal Cassidy on 01-04-2023 Platelet mean volume (Bld) [Entitic vol] 10.2 fL 6.2-12.0 [facility] Determination of erythrocyte mean corpuscular volume (MCV)Ordered By: Sal Cassidy on 01-04-2023 MCV (RBC) [Entitic vol] 99.4 fL 81-99 [facility] Hematocrit Auto (Bld) [Volum e fraction]Ordered By: Sal Cassidy on 01-04-2023 Hematocrit (Bld) [Volume fraction] 33.4 % 37-47 [facility] Laboratory - Chemistry and C hemistry - challengeOrdered By: Sal Cassidy on 01-04-2023 ALP [Catalytic activity/Vol] 126 U/L 45-117 [facility] ALT [Catalytic activity/Vol] 24 U/L 13-56 [facility] CO2 [Moles/Vol] 25.0 mmol/L 21.0-32.0 [facility] Globulin (S) [Mass/Vol] 3.5 g/dL 2.2-4.2 [facility] Lipase [Catalytic activity/Vol] 26 U/L 13-75 [facility] Comment on above: Please note:LIPASE r evised reference range effective 22. New Lipase methodology. Expected to produce lower values than the previous assay method. NEW Reference Range: 13 - 75 U/L Urea nitrogen/Creatinine [Mass ratio] 12.4 mg/mg 10-20 [facility] Laboratory - Hematology and Cell countsOrdered By: Sal Cassidy on 01-04-2023 Erythrocyte distribution width (RBC) [Entitic vol] 48.1 fL 35.1-43.9 [facility] Erythrocyte distribution width (RBC) [Ratio] 13.2 % 11.6-14.6 [facility] Immature granulocytes/100 WBC (Bld) 0.400 % 0.0-0.9 [facility] Comment on above: IG% - Immature Granu locytes (promyelocytes, myelocytes and metamyelocytes) > 1% indicates that a LEFT SHIFT is Present. MCH (RBC) [Entitic mass] 33.3 pg 27.0-32.0 [facility] Nucleated RBC/100 WBC (Bld) [Ratio] 0 % 0-5 [facility] MCHC Auto (RBC) [Mass/Vol]Or dered By: Sal Cassidy on 01-04-2023 MCHC (RBC) [Mass/Vol] 33.5 g/dL 32-36 [facility] Comment on above: Delta: 31.9 on 01/03 No Panel InformationOrdered By: Sal Cassidy on 01-04-2023 Estimated Creatinine Clearance Calc 97.87 ml/min [facility] Estimated GFR (MDRD) Amer 129 mL/min >60 [facility] Comment on above: GFR Calc Estimated GFR (MDRD) Non-Af Amer 106 mL/min >60 [facility] Comment on above: Non- GFR Calc Platelets bldOrdered By: Yani Cassidy on 01-04-2023 Platelets (Bld) [#/Vol] 407 10*3/uL 150-450 [facility] Serum or plasma albumin emma urement (mass/volume)Ordered By: Sal Cassidy on 01-04-2023 Albumin [Mass/Vol] 2.5 g/dL 3.2-5.0 [facility] Serum or plasma albumin/glob ulin mass ratioOrdered By: Sal Cassidy on 01-04-2023 Albumin/Globulin [Mass ratio] 0.7 {ratio} 0.9-2.4 [facility] Serum or plasma calcium emma urement (mass/volume)Ordered By: Sal Cassidy on 01-04-2023 Calcium [Mass/Vol] 8.5 mg/dL 8.5-10.1 [facility] Serum or plasma creatinine m easurement (mass/volume)Ordered By: Sal Cassidy on 01-04-2023 Creatinine [Mass/Vol] 0.64 mg/dL 0.55-1.02 [facility] Comment on above: The validity of the calculated GFR & GFRAA in patients over 70 years has not been determined. Clinical correlation is essential. Serum or plasma urea nitroge n measurement (mass/volume)Ordered By: Sal Cassidy on 01-04-2023 Urea nitrogen [Mass/Vol] 8 mg/dL 7-18 [facility] Thin prep Papanicolaou smear with manual screeningOrdered By: Sal Cassidy on 01-04-2023 Thin prep Papanicolaou smear with manual screening 19 U/L 15-37 [facility] Thin prep Papanicolaou smear with manual screening 4 5-15 [facility] Absolute lymphocyte countOrd ered By: Cong Marquez on 01-02-2023 Lymphocytes Auto (Unsp spec) [#/Vol] 2.33 10*3/uL 0.83-4.51 [facility] Basophil percentageOrdered B y: Cong Marquez on 01-02-2023 Basophils/100 WBC (Bld) 1.7 % 0-1 [facility] Bilirubin [Mass/Vol] 0.40 mg/dL 0.20-1.00 [facility] Comment on above: For patients on eltr ombopag therapy, use of [employer] TBIL is not recommended. Chloride [Moles/Vol] 101 mmol/L 98-107 [facility] Eosinophils/100 WBC (Bld) 3.6 % 0-5 [facility] Glucose [Mass/Vol] 98 mg/dL 74-106 [facility] Neutrophils (Bld) [#/Vol] 5.0 10*3/uL 2.0-7.7 [facility] Neutrophils/100 WBC (Bld) 59.8 % 47-70 [facility] Potassium [Moles/Vol] 3.5 mmol/L 3.5-5.1 [facility] Protein [Mass/Vol] 7.6 g/dL 6.4-8.2 [facility] Sodium [Moles/Vol] 135 mmol/L 136-145 [facility] WBC (Bld) [#/Vol] 8.4 10*3/uL 4.4-11.0 [facility] Blood erythrocytes count (nu mber/volume)Ordered By: Cong Marquez on 01-02-2023 RBC (Bld) [#/Vol] 4.11 10*6/uL 4.2-5.4 [facility] Blood hemoglobin measurement (mass/volume)Ordered By: Cong Marquez on 01-02-2023 Hemoglobin (Bld) [Mass/Vol] 13.4 g/dL 12.0-15.0 [facility] Blood lymphocytes/100 leukoc ytesOrdered By: Cong Marquez on 01-02-2023 Lymphocytes/100 WBC (Bld) 27.7 % 19-41 [facility] Blood monocytes/100 leukocyt esOrdered By: Cong Marquez on 01-02-2023 Monocytes/100 WBC (Bld) 7.0 % 0-10 [facility] Blood platelet mean volumeOr dered By: Cong Marquez on 01-02-2023 Platelet mean volume (Bld) [Entitic vol] 10.2 fL 6.2-12.0 [facility] Determination of erythrocyte mean corpuscular volume (MCV)Ordered By: Cong Marquez on 01-02-2023 MCV (RBC) [Entitic vol] 98.3 fL 81-99 [facility] Direct bilirubinOrdered By: Cong Marquez on 01-02-2023 Bilirubin.direct [Mass/Vol] 0.19 mg/dL 0.00-0.30 [facility] Hematocrit Auto (Bld) [Volum e fraction]Ordered By: Cong Marquez on 01-02-2023 Hematocrit (Bld) [Volume fraction] 40.4 % 37-47 [facility] Laboratory - Chemistry and C hemistry - challengeOrdered By: Cong Marquez on 01-02-2023 ALP [Catalytic activity/Vol] 227 U/L 45-117 [facility] ALT [Catalytic activity/Vol] 54 U/L 13-56 [facility] CO2 [Moles/Vol] 29.0 mmol/L 21.0-32.0 [facility] Globulin (S) [Mass/Vol] 4.0 g/dL 2.2-4.2 [facility] Lipase [Catalytic activity/Vol] 52 U/L 13-75 [facility] Comment on above: Please note:LIPASE r evised reference range effective 22. New Lipase methodology. Expected to produce lower values than the previous assay method. NEW Reference Range: 13 - 75 U/L Urea nitrogen/Creatinine [Mass ratio] 13.2 mg/mg 10-20 [facility] Laboratory - Hematology and Cell countsOrdered By: Cong Marquez on 01-02-2023 Erythrocyte distribution width (RBC) [Entitic vol] 49.7 fL 35.1-43.9 [facility] Erythrocyte distribution width (RBC) [Ratio] 13.9 % 11.6-14.6 [facility] Immature granulocytes/100 WBC (Bld) 0.200 % 0.0-0.9 [facility] Comment on above: IG% - Immature Granu locytes (promyelocytes, myelocytes and metamyelocytes) > 1% indicates that a LEFT SHIFT is Present. MCH (RBC) [Entitic mass] 32.6 pg 27.0-32.0 [facility] Nucleated RBC/100 WBC (Bld) [Ratio] 0 % 0-5 [facility] MCHC Auto (RBC) [Mass/Vol]Or dered By: Cong Marquez on 01-02-2023 MCHC (RBC) [Mass/Vol] 33.2 g/dL 32-36 [facility] No Panel InformationOrdered By: Cong Marquez on 01-02-2023 Ethyl Alcohol Level < 3.0 mg/dL [facility] Comment on above: The serum:whole bloo d ethanol ratio is approximately 1.14and varies slightly with hematocrit. Medical Alcohol reference interval and critical value innon-tolerant individuals; 50 - 100 Impairment 100 Intoxication 100 - 250 Severe Poisoning 250 - 400 Deep/possible fatal coma Estimated Creatinine Clearance Calc 75.47 ml/min [facility] Estimated GFR (MDRD) Amer 96 mL/min >60 [facility] Comment on above: GFR Calc Estimated GFR (MDRD) Non-Af Amer 79 mL/min >60 [facility] Comment on above: Non- GFR Calc Platelets bldOrdered By: Erickson Marquez on 07-31-2023 Platelets (Bld) [#/Vol] 621 10*3/uL 150-450 [facility] Serum or plasma albumin emma urement (mass/volume)Ordered By: Cong Marquez on 01-02-2023 Albumin [Mass/Vol] 3.6 g/dL 3.2-5.0 [facility] Serum or plasma calcium emma urement (mass/volume)Ordered By: Cong Marquez on 01-02-2023 Calcium [Mass/Vol] 9.3 mg/dL 8.5-10.1 [facility] Serum or plasma creatinine m easurement (mass/volume)Ordered By: Cong Marquez on 01-02-2023 Creatinine [Mass/Vol] 0.83 mg/dL 0.55-1.02 [facility] Comment on above: The validity of the calculated GFR & GFRAA in patients over 70 years has not been determined. Clinical correlation is essential. Serum or plasma urea nitroge n measurement (mass/volume)Ordered By: Cong Marquez on 01-02-2023 Urea nitrogen [Mass/Vol] 11 mg/dL 7-18 [facility] Thin prep Papanicolaou smear with manual screeningOrdered By: Cong Marquez on 01-02-2023 Thin prep Papanicolaou smear with manual screening 98 U/L 15-37 [facility] Thin prep Papanicolaou smear with manual screening 5 5-15 [facility] Absolute lymphocyte countOrd ered By: Gianni Perez on 12-29-2022 Lymphocytes Auto (Unsp spec) [#/Vol] 1.93 10*3/uL 0.83-4.51 [facility] Basophil percentageOrdered B y: Gianni Perez on 12-29-2022 Basophils/100 WBC (Bld) 1.8 % 0-1 [facility] Bilirubin [Mass/Vol] 0.20 mg/dL 0.20-1.00 [facility] Comment on above: For patients on eltr ombopag therapy, use of Dim[place] TBIL is not recommended. Chloride [Moles/Vol] 103 mmol/L 98-107 [facility] Eosinophils/100 WBC (Bld) 4.3 % 0-5 [facility] Glucose [Mass/Vol] 118 mg/dL 74-106 [facility] Comment on above: Fasting Glucose resu lt from 100 to 125 mg/dL suggests IMPAIRED HOMEOSTASIS per A.D.A. criteria. Neutrophils (Bld) [#/Vol] 6.0 10*3/uL 2.0-7.7 [facility] Neutrophils/100 WBC (Bld) 66.3 % 47-70 [facility] Potassium [Moles/Vol] 3.9 mmol/L 3.5-5.1 [facility] Protein [Mass/Vol] 7.7 g/dL 6.4-8.2 [facility] Sodium [Moles/Vol] 139 mmol/L 136-145 [facility] WBC (Bld) [#/Vol] 9.1 10*3/uL 4.4-11.0 [facility] Blood erythrocytes count (nu mber/volume)Ordered By: Giannivic Perez on 12-29-2022 RBC (Bld) [#/Vol] 3.95 10*6/uL 4.2-5.4 [facility] Blood hemoglobin measurement (mass/volume)Ordered By: Gianni Perez on 12-29-2022 Hemoglobin (Bld) [Mass/Vol] 13.2 g/dL 12.0-15.0 [facility] Blood lymphocytes/100 leukoc ytesOrdered By: Giannivic Perez on 12-29-2022 Lymphocytes/100 WBC (Bld) 21.3 % 19-41 [facility] Blood monocytes/100 leukocyt esOrdered By: Gianni Perez on 12-29-2022 Monocytes/100 WBC (Bld) 6.0 % 0-10 [facility] Blood platelet mean volumeOr dered By: Gianni Perez on 12-29-2022 Platelet mean volume (Bld) [Entitic vol] 9.5 fL 6.2-12.0 [facility] Determination of erythrocyte mean corpuscular volume (MCV)Ordered By: Gianni Perez on 12-29-2022 MCV (RBC) [Entitic vol] 100.0 fL 81-99 [facility] Hematocrit Auto (Bld) [Volum e fraction]Ordered By: Gianni Perez on 12-29-2022 Hematocrit (Bld) [Volume fraction] 39.5 % 37-47 [facility] INR in Blood by Coagulation assayOrdered By: Lonnie Urena on 12-29-2022 INR Coag (Bld) [Relative time] 1.0 {INR} [facility] Laboratory - Chemistry and C hemistry - challengeOrdered By: Gianni Perez on 12-29-2022 ALP [Catalytic activity/Vol] 143 U/L 45-117 [facility] ALT [Catalytic activity/Vol] 44 U/L 13-56 [facility] CO2 [Moles/Vol] 28.0 mmol/L 21.0-32.0 [facility] Globulin (S) [Mass/Vol] 4.4 g/dL 2.2-4.2 [facility] Lipase [Catalytic activity/Vol] 83 U/L 13-75 [facility] Comment on above: Please note:LIPASE r evised reference range effective 22. New Lipase methodology. Expected to produce lower values than the previous assay method. NEW Reference Range: 13 - 75 U/L Urea nitrogen/Creatinine [Mass ratio] 13.0 mg/mg 10-20 [facility] Laboratory - CoagulationOrde red By: Lonnie Urena on 12-29-2022 aPTT Coag (Bld) [Time] 29.9 s 24.1-36.2 [facility] PT Coag (PPP) [Time] 13.0 s 11.7-14.9 [facility] Laboratory - Hematology and Cell countsOrdered By: Gianni Perez on 12-29-2022 Erythrocyte distribution width (RBC) [Entitic vol] 52.3 fL 35.1-43.9 [facility] Erythrocyte distribution width (RBC) [Ratio] 14.0 % 11.6-14.6 [facility] Immature granulocytes/100 WBC (Bld) 0.300 % 0.0-0.9 [facility] Comment on above: IG% - Immature Granu locytes (promyelocytes, myelocytes and metamyelocytes) > 1% indicates that a LEFT SHIFT is Present. MCH (RBC) [Entitic mass] 33.4 pg 27.0-32.0 [facility] Nucleated RBC/100 WBC (Bld) [Ratio] 0 % 0-5 [facility] MCHC Auto (RBC) [Mass/Vol]Or dered By: Gianni Perez on 12-29-2022 MCHC (RBC) [Mass/Vol] 33.4 g/dL 32-36 [facility] No Panel InformationOrdered By: Gianni Perez on 12-29-2022 Estimated Creatinine Clearance Calc 62.64 ml/min [facility] Estimated GFR (MDRD) Amer 78 mL/min >60 [facility] Comment on above: GFR Calc Estimated GFR (MDRD) Non-Af Amer 64 mL/min >60 [facility] Comment on above: Non- GFR Calc No Panel InformationOrdered By: Lonnie Urena on 12-29-2022 D-Dimer Quantitative (PE/DVT) < 0.27 FEU/ug/m 0.27-0.49 [facility] Comment on above: NORMAL D-Dimer level (<0.50) indicates no DVT or PE. Platelets bldOrdered By: Gianni Perez on 12-29-2022 Platelets (Bld) [#/Vol] 668 10*3/uL 150-450 [facility] Serum or plasma albumin emma urement (mass/volume)Ordered By: Gianni Perez on 12-29-2022 Albumin [Mass/Vol] 3.3 g/dL 3.2-5.0 [facility] Serum or plasma albumin/glob ulin mass ratioOrdered By: Gianni Perez on 12-29-2022 Albumin/Globulin [Mass ratio] 0.8 {ratio} 0.9-2.4 [facility] Serum or plasma calcium emma urement (mass/volume)Ordered By: Gianni Perez on 12-29-2022 Calcium [Mass/Vol] 9.2 mg/dL 8.5-10.1 [facility] Serum or plasma creatinine m easurement (mass/volume)Ordered By: Gianni Perez on 12-29-2022 Creatinine [Mass/Vol] 1.00 mg/dL 0.55-1.02 [facility] Comment on above: The validity of the calculated GFR & GFRAA in patients over 70 years has not been determined. Clinical correlation is essential. Serum or plasma urea nitroge n measurement (mass/volume)Ordered By: Gianni Perez on 12-29-2022 Urea nitrogen [Mass/Vol] 13 mg/dL 7-18 [facility] Thin prep Papanicolaou smear with manual screeningOrdered By: Gianni Perez on 12-29-2022 Thin prep Papanicolaou smear with manual screening 41 U/L 15-37 [facility] Thin prep Papanicolaou smear with manual screening 8 5-15 [facility] Absolute lymphocyte countOrd ered By: Sal Cassidy on 12-21-2022 Lymphocytes Auto (Unsp spec) [#/Vol] 1.26 10*3/uL 0.83-4.51 [facility] Basophil percentageOrdered B y: Sal Cassidy on 12-21-2022 Basophils/100 WBC (Bld) 0.8 % 0-1 [facility] Bilirubin [Mass/Vol] 0.80 mg/dL 0.20-1.00 [facility] Comment on above: For patients on eltr ombopag therapy, use of Dim[place] TBIL is not recommended. Chloride [Moles/Vol] 99 mmol/L 98-107 [facility] Eosinophils/100 WBC (Bld) 4.3 % 0-5 [facility] Glucose [Mass/Vol] 114 mg/dL 74-106 [facility] Comment on above: Fasting Glucose resu lt from 100 to 125 mg/dL suggests IMPAIRED HOMEOSTASIS per A.D.A. criteria. Neutrophils (Bld) [#/Vol] 3.3 10*3/uL 2.0-7.7 [facility] Neutrophils/100 WBC (Bld) 54.4 % 47-70 [facility] Potassium [Moles/Vol] 3.9 mmol/L 3.5-5.1 [facility] Protein [Mass/Vol] 7.2 g/dL 6.4-8.2 [facility] Sodium [Moles/Vol] 135 mmol/L 136-145 [facility] WBC (Bld) [#/Vol] 6.0 10*3/uL 4.4-11.0 [facility] Blood erythrocytes count (nu mber/volume)Ordered By: Sal Cassidy on 12-21-2022 RBC (Bld) [#/Vol] 3.79 10*6/uL 4.2-5.4 [facility] Blood hemoglobin measurement (mass/volume)Ordered By: Sal Cassidy on 12-21-2022 Hemoglobin (Bld) [Mass/Vol] 12.5 g/dL 12.0-15.0 [facility] Blood lymphocytes/100 leukoc ytesOrdered By: Sal Cassidy on 12-21-2022 Lymphocytes/100 WBC (Bld) 21.0 % 19-41 [facility] Blood monocytes/100 leukocyt esOrdered By: Sal Cassidy on 12-21-2022 Monocytes/100 WBC (Bld) 19.0 % 0-10 [facility] Blood platelet mean volumeOr dered By: Sal Cassidy on 12-21-2022 Platelet mean volume (Bld) [Entitic vol] 10.6 fL 6.2-12.0 [facility] Determination of erythrocyte mean corpuscular volume (MCV)Ordered By: Sal Cassidy on 12-21-2022 MCV (RBC) [Entitic vol] 100.0 fL 81-99 [facility] Hematocrit Auto (Bld) [Volum e fraction]Ordered By: Sal Cassidy on 12-21-2022 Hematocrit (Bld) [Volume fraction] 37.9 % 37-47 [facility] Laboratory - Chemistry and C hemistry - challengeOrdered By: Sal Cassidy on 12-21-2022 ALP [Catalytic activity/Vol] 208 U/L 45-117 [facility] ALT [Catalytic activity/Vol] 140 U/L 13-56 [facility] CO2 [Moles/Vol] 29.0 mmol/L 21.0-32.0 [facility] Globulin (S) [Mass/Vol] 4.4 g/dL 2.2-4.2 [facility] Urea nitrogen/Creatinine [Mass ratio] 13.1 mg/mg 10-20 [facility] Laboratory - Hematology and Cell countsOrdered By: Sal Cassidy on 12-21-2022 Erythrocyte distribution width (RBC) [Entitic vol] 52.6 fL 35.1-43.9 [facility] Erythrocyte distribution width (RBC) [Ratio] 14.3 % 11.6-14.6 [facility] Immature granulocytes/100 WBC (Bld) 0.500 % 0.0-0.9 [facility] Comment on above: IG% - Immature Granu locytes (promyelocytes, myelocytes and metamyelocytes) > 1% indicates that a LEFT SHIFT is Present. MCH (RBC) [Entitic mass] 33.0 pg 27.0-32.0 [facility] Nucleated RBC/100 WBC (Bld) [Ratio] 0 % 0-5 [facility] MCHC Auto (RBC) [Mass/Vol]Or dered By: Sal Cassidy on 12-21-2022 MCHC (RBC) [Mass/Vol] 33.0 g/dL 32-36 [facility] No Panel InformationOrdered By: Sal Cassidy on 12-21-2022 Estimated Creatinine Clearance Calc 74.57 ml/min [facility] Estimated GFR (MDRD) Amer 95 mL/min >60 [facility] Comment on above: GFR Calc Estimated GFR (MDRD) Non-Af Amer 78 mL/min >60 [facility] Comment on above: Non- GFR Calc Platelets bldOrdered By: Yani Cassidy on 12-21-2022 Platelets (Bld) [#/Vol] 295 10*3/uL 150-450 [facility] Serum or plasma albumin emma urement (mass/volume)Ordered By: Sal Cassidy on 12-21-2022 Albumin [Mass/Vol] 2.8 g/dL 3.2-5.0 [facility] Serum or plasma albumin/glob ulin mass ratioOrdered By: Sal Cassidy on 12-21-2022 Albumin/Globulin [Mass ratio] 0.6 {ratio} 0.9-2.4 [facility] Serum or plasma calcium emma urement (mass/volume)Ordered By: Sal Cassidy on 12-21-2022 Calcium [Mass/Vol] 9.4 mg/dL 8.5-10.1 [facility] Serum or plasma creatinine m easurement (mass/volume)Ordered By: Sal Cassidy on 12-21-2022 Creatinine [Mass/Vol] 0.84 mg/dL 0.55-1.02 [facility] Comment on above: The validity of the calculated GFR & GFRAA in patients over 70 years has not been determined. Clinical correlation is essential. Serum or plasma urea nitroge n measurement (mass/volume)Ordered By: Sal Cassidy on 12-21-2022 Urea nitrogen [Mass/Vol] 11 mg/dL 7-18 [facility] Thin prep Papanicolaou smear with manual screeningOrdered By: Sal Cassidy on 12-21-2022 Thin prep Papanicolaou smear with manual screening 68 U/L 15-37 [facility] Thin prep Papanicolaou smear with manual screening 7 5-15 [facility] Laboratory - Chemistry and C hemistry - challengeOrdered By: Sal Cassidy on 12-17-2022 Magnesium [Mass/Vol] 1.8 mg/dL 1.6-2.6 [facility] No Panel InformationOrdered By: Sal Cassidy on 12-17-2022 CA 19-9 Antigen 11 U/mL 0-35 [facility] Comment on above: [employer] El ectrochemiluminescence Immunoassay(ECLIA)Values obtained with different assay methods or kits cannotbe used interchangeably. Results cannot be interpreted asabsolute evidence of the presence or absence of malignantdisease. CA 19-9 Antigen Serial Monitoring Not Reportable [facility] Serum or plasma carcinoembry onic antigen measurement (mass/volume)Ordered By: Sal Cassidy on 12-17-2022 Carcinoembryonic Ag [Mass/Vol] 4.9 ng/mL 0.0-4.7 [facility] Comment on above: Nonsmokers <3.9 Smok ers <5.6[employer] Electrochemiluminescence Immunoassay(ECLIA)Values obtained with different assay methods or kitscannot be used interchangeably. Results cannot beinterpreted as absolute evidence of the presence orabsence of malignant disease.Performed at: [facility] [id number] Director: Gal Jno PhD, Phone: [phone] Direct bilirubinOrdered By: Sal Cleary on 12-16-2022 Bilirubin.direct [Mass/Vol] 0.24 mg/dL 0.00-0.30 [facility] INR in Blood by Coagulation assayOrdered By: Sal Cleary on 12-16-2022 INR Coag (Bld) [Relative time] 1.0 {INR} [facility] Laboratory - CoagulationOrde red By: Sal Cleary on 12-16-2022 aPTT Coag (Bld) [Time] 31.9 s 24.1-36.2 [facility] PT Coag (PPP) [Time] 12.7 s 11.7-14.9 [facility] Absolute lymphocyte countOrd ered By: Jake Tyron on 12-14-2022 Lymphocytes Auto (Unsp spec) [#/Vol] 0.87 10*3/uL 0.83-4.51 [facility] Basophil percentageOrdered B y: Jake Tyron on 12-14-2022 Basophil percentage 10-25 SEEN /hpf 0-5 [facility] Basophils/100 WBC (Bld) 0.7 % 0-1 [facility] Bilirubin [Mass/Vol] 0.50 mg/dL 0.20-1.00 [facility] Comment on above: For patients on eltr ombopag therapy, use of Dim[place] TBIL is not recommended. Chloride [Moles/Vol] 99 mmol/L 98-107 [facility] Eosinophils/100 WBC (Bld) 2.2 % 0-5 [facility] Glucose [Mass/Vol] 118 mg/dL 74-106 [facility] Comment on above: Fasting Glucose resu lt from 100 to 125 mg/dL suggests IMPAIRED HOMEOSTASIS per A.D.A. criteria. Neutrophils (Bld) [#/Vol] 4.7 10*3/uL 2.0-7.7 [facility] Neutrophils/100 WBC (Bld) 77.4 % 47-70 [facility] Potassium [Moles/Vol] 2.7 mmol/L 3.5-5.1 [facility] Protein [Mass/Vol] 7.7 g/dL 6.4-8.2 [facility] Sodium [Moles/Vol] 135 mmol/L 136-145 [facility] Comment on above: Critical Result(s) C alled at: 14:33:41 12/14/2022 by: Sonia Crocker to [employer]. Results read back by same. WBC (Bld) [#/Vol] 6.0 10*3/uL 4.4-11.0 [facility] Bilirubin Test strip Ql (U)O rdered By: Jake Ackerman on 12-14-2022 Bilirubin Ql (U) Negative Negative [facility] Blood erythrocytes count (nu mber/volume)Ordered By: Jake Ackerman on 12-14-2022 RBC (Bld) [#/Vol] 3.93 10*6/uL 4.2-5.4 [facility] Blood hemoglobin measurement (mass/volume)Ordered By: Jake Ackerman on 12-14-2022 Hemoglobin (Bld) [Mass/Vol] 13.1 g/dL 12.0-15.0 [facility] Blood lymphocytes/100 leukoc ytesOrdered By: Jake Ackerman on 12-14-2022 Lymphocytes/100 WBC (Bld) 14.5 % 19-41 [facility] Blood monocytes/100 leukocyt esOrdered By: Jake Ackerman on 12-14-2022 Monocytes/100 WBC (Bld) 5.0 % 0-10 [facility] Blood platelet mean volumeOr dered By: Jake Ackerman on 12-14-2022 Platelet mean volume (Bld) [Entitic vol] 9.4 fL 6.2-12.0 [facility] Determination of erythrocyte mean corpuscular volume (MCV)Ordered By: Jake Ackerman on 12-14-2022 MCV (RBC) [Entitic vol] 99.0 fL 81-99 [facility] Hematocrit Auto (Bld) [Volum e fraction]Ordered By: Jake Ackerman on 12-14-2022 Hematocrit (Bld) [Volume fraction] 38.9 % 37-47 [facility] Ketones Test strip Ql (U)Ord ered By: Jake Ackerman on 12-14-2022 Ketones Ql (U) 5 mg/dl Negative [facility] Laboratory - Chemistry and C hemistry - challengeOrdered By: Jake Ackerman on 12-14-2022 HCG ( test) Ql (U) Negative [facility] Comment on above: Very dilute urine sp ecimens, as indicated by a low specificgravity, may not contain community service representative levels of hCG. If is still suspected, a first morning urinespecimen should be collected 48 hours later and tested. ALP [Catalytic activity/Vol] 134 U/L 45-117 [facility] ALT [Catalytic activity/Vol] 272 U/L 13-56 [facility] CO2 [Moles/Vol] 29.0 mmol/L 21.0-32.0 [facility] Globulin (S) [Mass/Vol] 4.2 g/dL 2.2-4.2 [facility] Lipase [Catalytic activity/Vol] 787 U/L 13-75 [facility] Comment on above: Please note:LIPASE r evised reference range effective 22. New Lipase methodology. Expected to produce lower values than the previous assay method. NEW Reference Range: 13 - 75 U/L Urea nitrogen/Creatinine [Mass ratio] 13.1 mg/mg 10-20 [facility] Laboratory - Hematology and Cell countsOrdered By: Jake Ackerman on 12-14-2022 Erythrocyte distribution width (RBC) [Entitic vol] 54.9 fL 35.1-43.9 [facility] Erythrocyte distribution width (RBC) [Ratio] 15.0 % 11.6-14.6 [facility] Immature granulocytes/100 WBC (Bld) 0.200 % 0.0-0.9 [facility] Comment on above: IG% - Immature Granu locytes (promyelocytes, myelocytes and metamyelocytes) > 1% indicates that a LEFT SHIFT is Present. MCH (RBC) [Entitic mass] 33.3 pg 27.0-32.0 [facility] Nucleated RBC/100 WBC (Bld) [Ratio] 0 % 0-5 [facility] MCHC Auto (RBC) [Mass/Vol]Or dered By: Jake Ackerman on 12-14-2022 MCHC (RBC) [Mass/Vol] 33.7 g/dL 32-36 [facility] Mucus LM Ql (Urine sed)Order ed By: Jake Ackerman on 12-14-2022 Mucus Ql (Urine sed) 0 SEEN /hpf [facility] Nitrite Test strip Ql (U)Ord ered By: Jake Ackerman on 12-14-2022 Nitrite Ql (U) Positive Negative [facility] No Panel InformationOrdered By: Jake Ackerman on 12-14-2022 Estimated Creatinine Clearance Calc 102.69 ml/min [facility] Estimated GFR (MDRD) Amer 138 mL/min >60 [facility] Comment on above: GFR Calc Estimated GFR (MDRD) Non-Af Amer 114 mL/min >60 [facility] Comment on above: Non- GFR Calc Platelets bldOrdered By: Steven isabeljovani Ackerman on 12-14-2022 Platelets (Bld) [#/Vol] 247 10*3/uL 150-450 [facility] Protein Test strip Ql (U)Ord ered By: Jake Ackerman on 12-14-2022 Protein Ql (U) 100 mg/dl Negative [facility] Serum or plasma albumin emma urement (mass/volume)Ordered By: Jake Ackerman on 12-14-2022 Albumin [Mass/Vol] 3.5 g/dL 3.2-5.0 [facility] Serum or plasma albumin/glob ulin mass ratioOrdered By: Jake Ackerman on 12-14-2022 Albumin/Globulin [Mass ratio] 0.8 {ratio} 0.9-2.4 [facility] Serum or plasma calcium emma urement (mass/volume)Ordered By: Jake Ackerman on 12-14-2022 Calcium [Mass/Vol] 9.4 mg/dL 8.5-10.1 [facility] Serum or plasma creatinine m easurement (mass/volume)Ordered By: Jake Ackerman on 12-14-2022 Creatinine [Mass/Vol] 0.61 mg/dL 0.55-1.02 [facility] Comment on above: The validity of the calculated GFR & GFRAA in patients over 70 years has not been determined. Clinical correlation is essential. Serum or plasma urea nitroge n measurement (mass/volume)Ordered By: Jake Ackerman on 12-14-2022 Urea nitrogen [Mass/Vol] 8 mg/dL 7-18 [facility] Squamous epithelial cells de tection in urine sediment by light microscopyOrdered By: Jake Ackerman on 12-14-2022 Epithelial cells.squamous LM Ql (Urine sed) 0-5 SEEN /hpf 5-10 [facility] Thin prep Papanicolaou smear with manual screeningOrdered By: Jake Ackerman on 12-14-2022 Thin prep Papanicolaou smear with manual screening 557 U/L 15-37 [facility] Thin prep Papanicolaou smear with manual screening 7 5-15 [facility] Urine blood detectionOrdered By: Jake Ackerman on 12-14-2022 RBC Ql (U) 10 /ul Negative [facility] RBC Ql (U) 0-5 SEEN /hpf 0-5 [facility] Urine clarityOrdered By: Steven Ackerman on 12-14-2022 Clarity (U) Sl. Cloudy Clear [facility] Urine color determinationOrd ered By: Jake Ackerman on 12-14-2022 Color (U) Yellow Yellow [facility] Urine glucose detectionOrder ed By: Jake Ackerman on 12-14-2022 Glucose Ql (U) Normal mg/dl Normal [facility] Urine leukocyte esterase det ection by dipstickOrdered By: Jake Ackerman on 12-14-2022 Leukocyte esterase Test strip Ql (U) 100 /ul Negative [facility] Urine pHOrdered By: Jake Ackerman on 12-14-2022 pH (U) 6.0 [pH] 5.0 - 8.0 [facility] Urine sediment bacteria coun t by microscopy (number/high power field)Ordered By: Jake Ackerman on 12-14-2022 Bacteria LM.HPF (Urine sed) [#/Area] 3 /[HPF] None Seen [facility] Urine specific gravity measu rementOrdered By: Jake Ackerman on 12-14-2022 Specific gravity (U) [Rel density] 1.020 1.002-1.03 0 [facility] Urobilinogen Auto test strip Ql (U)Ordered By: Jake Ackerman on 12-14-2022 Urobilinogen Ql (U) Normal mg/dl Normal [facility] Basophil percentageOrdered B y: Lonnie Urena on 12-01-2022 Basophil percentage < 0.9 mg/dL 0.55-1.02 [facility] No Panel InformationOrdered By: Lonnie Urena on 12-01-2022 Bedside Estimated GFR (eGFR) > 60.0000 mL/min >60 [facility] Absolute lymphocyte countOrd ered By: ED PROVIDER on 10-19-2022 Lymphocytes Auto (Unsp spec) [#/Vol] 0.85 10*3/uL 0.83-4.51 [facility] Absolute lymphocyte countOrd ered By: Dr. Urnea on 10-19-2022 Lymphocytes Auto (Unsp spec) [#/Vol] 0.77 10*3/uL 0.83-4.51 [facility] Basophil percentageOrdered B y: ED PROVIDER on 10-19-2022 Basophils/100 WBC (Bld) 0.5 % 0-1 [facility] Eosinophils/100 WBC (Bld) 0.8 % 0-5 [facility] Neutrophils (Bld) [#/Vol] 9.6 10*3/uL 2.0-7.7 [facility] Neutrophils/100 WBC (Bld) 78.9 % 47-70 [facility] WBC (Bld) [#/Vol] 12.1 10*3/uL 4.4-11.0 [facility] Basophil percentage 5-10 SEEN /hpf 0-5 [facility] Basophil percentageOrdered B y: Dr. Hastings on 10-19-2022 Bilirubin [Mass/Vol] 0.70 mg/dL 0.20-1.00 [facility] Comment on above: For patients on eltr ombopag therapy, use of Dim[place] TBIL is not recommended. Chloride [Moles/Vol] 94 mmol/L 98-107 [facility] Glucose [Mass/Vol] 104 mg/dL 74-106 [facility] Comment on above: Fasting Glucose resu lt from 100 to 125 mg/dL suggests IMPAIRED HOMEOSTASIS per A.D.A. criteria. Potassium [Moles/Vol] 3.2 mmol/L 3.5-5.1 [facility] Protein [Mass/Vol] 6.8 g/dL 6.4-8.2 [facility] Sodium [Moles/Vol] 130 mmol/L 136-145 [facility] Basophil percentageOrdered B y: Dr. Urena on 10-19-2022 Basophils/100 WBC (Bld) 0.3 % 0-1 [facility] Bilirubin [Mass/Vol] 0.70 mg/dL 0.20-1.00 [facility] Comment on above: For patients on eltr ombopag therapy, use of Dim[place] TBIL is not recommended. Chloride [Moles/Vol] 94 mmol/L 98-107 [facility] Eosinophils/100 WBC (Bld) 1.0 % 0-5 [facility] Glucose [Mass/Vol] 96 mg/dL 74-106 [facility] LDH [Catalytic activity/Vol] 189 U/L 84-246 [facility] Neutrophils (Bld) [#/Vol] 8.2 10*3/uL 2.0-7.7 [facility] Neutrophils/100 WBC (Bld) 78.2 % 47-70 [facility] Potassium [Moles/Vol] 3.2 mmol/L 3.5-5.1 [facility] Protein [Mass/Vol] 7.6 g/dL 6.4-8.2 [facility] Sodium [Moles/Vol] 130 mmol/L 136-145 [facility] WBC (Bld) [#/Vol] 10.5 10*3/uL 4.4-11.0 [facility] Beta hCG serum qualOrdered B y: ED PROVIDER on 10-19-2022 Beta HCG ( test) Ql Negative [facility] Bilirubin Test strip Ql (U)O rdered By: ED PROVIDER on 10-19-2022 Bilirubin Ql (U) Negative Negative [facility] Blood erythrocytes count (nu mber/volume)Ordered By: ED PROVIDER on 10-19-2022 RBC (Bld) [#/Vol] 3.89 10*6/uL 4.2-5.4 [facility] Blood erythrocytes count (nu mber/volume)Ordered By: Dr. Urena on 10-19-2022 RBC (Bld) [#/Vol] 3.93 10*6/uL 4.2-5.4 [facility] Blood hemoglobin measurement (mass/volume)Ordered By: ED PROVIDER on 10-19-2022 Hemoglobin (Bld) [Mass/Vol] 12.5 g/dL 12.0-15.0 [facility] Blood hemoglobin measurement (mass/volume)Ordered By: Dr. Urena on 10-19-2022 Hemoglobin (Bld) [Mass/Vol] 12.6 g/dL 12.0-15.0 [facility] Blood lymphocytes/100 leukoc ytesOrdered By: ED PROVIDER on 10-19-2022 Lymphocytes/100 WBC (Bld) 7.0 % 19-41 [facility] Blood lymphocytes/100 leukoc ytesOrdered By: Dr. Urena on 10-19-2022 Lymphocytes/100 WBC (Bld) 7.4 % 19-41 [facility] Blood monocytes/100 leukocyt esOrdered By: ED PROVIDER on 10-19-2022 Monocytes/100 WBC (Bld) 12.1 % 0-10 [facility] Blood monocytes/100 leukocyt esOrdered By: Dr. Urena on 10-19-2022 Monocytes/100 WBC (Bld) 12.1 % 0-10 [facility] Blood platelet adequacy dete ction by light microscopyOrdered By: Dr. Urena on 10-19-2022 Platelets LM Ql (Bld) ADEQUATE ADEQ [facility] Blood platelet mean volumeOr dered By: ED PROVIDER on 10-19-2022 Platelet mean volume (Bld) [Entitic vol] 10.7 fL 6.2-12.0 [facility] Blood platelet mean volumeOr dered By: Dr. Urena on 10-19-2022 Platelet mean volume (Bld) [Entitic vol] 11.0 fL 6.2-12.0 [facility] Culture, urineOrdered By: Alicia Hastings on 10-19-2022 Bacteria identified Cx Nom (U) Presumptive E. coli [facility] Determination of erythrocyte mean corpuscular volume (MCV)Ordered By: ED PROVIDER on 10-19-2022 MCV (RBC) [Entitic vol] 92.8 fL 81-99 [facility] Determination of erythrocyte mean corpuscular volume (MCV)Ordered By: Dr. Urena on 10-19-2022 MCV (RBC) [Entitic vol] 94.9 fL 81-99 [facility] Hematocrit Auto (Bld) [Volum e fraction]Ordered By: ED PROVIDER on 10-19-2022 Hematocrit (Bld) [Volume fraction] 36.1 % 37-47 [facility] Hematocrit Auto (Bld) [Volum e fraction]Ordered By: Dr. Urena on 10-19-2022 Hematocrit (Bld) [Volume fraction] 37.3 % 37-47 [facility] INR in Blood by Coagulation assayOrdered By: Dr. Urena on 10-19-2022 INR Coag (Bld) [Relative time] 1.0 {INR} [facility] Ketones Test strip Ql (U)Ord ered By: ED PROVIDER on 10-19-2022 Ketones Ql (U) Negative Negative [facility] Laboratory - Chemistry and C hemistry - challengeOrdered By: Dr. Hastings on 10-19-2022 ALP [Catalytic activity/Vol] 151 U/L 45-117 [facility] ALT [Catalytic activity/Vol] 72 U/L 13-56 [facility] CO2 [Moles/Vol] 25.0 mmol/L 21.0-32.0 [facility] Globulin (S) [Mass/Vol] 3.9 g/dL 2.2-4.2 [facility] Lipase [Catalytic activity/Vol] 20 U/L -75 [facility] Comment on above: Please note:LIPASE r evised reference range effective 22. New Lipase methodology. Expected to produce lower values than the previous assay method. NEW Reference Range: 13 - 75 U/L Urea nitrogen/Creatinine [Mass ratio] 21.6 mg/mg 10- [facility] Laboratory - Chemistry and C hemistry - challengeOrdered By: Dr. Urena on 10-19-2022 ALP [Catalytic activity/Vol] 145 U/L 45-117 [facility] ALT [Catalytic activity/Vol] 69 U/L - [facility] CO2 [Moles/Vol] 25.0 mmol/L 21.0-32.0 [facility] Globulin (S) [Mass/Vol] 4.8 g/dL 2.2-4.2 [facility] Urea nitrogen/Creatinine [Mass ratio] 21.2 mg/mg - [facility] Laboratory - CoagulationOrde red By: Dr. Urena on 10-19-2022 aPTT Coag (Bld) [Time] 43.1 s 24.1-36.2 [facility] PT Coag (PPP) [Time] 13.2 s 11.7-14.9 [facility] Laboratory - Hematology and Cell countsOrdered By: ED PROVIDER on 10-19-2022 Erythrocyte distribution width (RBC) [Entitic vol] 55.2 fL 35.1-43.9 [facility] Erythrocyte distribution width (RBC) [Ratio] 16.0 % 11.6-14.6 [facility] Immature granulocytes/100 WBC (Bld) 0.700 % 0.0-0.9 [facility] Comment on above: IG% - Immature Granu locytes (promyelocytes, myelocytes and metamyelocytes) > 1% indicates that a LEFT SHIFT is Present. MCH (RBC) [Entitic mass] 32.1 pg 27.0-32.0 [facility] Nucleated RBC/100 WBC (Bld) [Ratio] 0 % 0-5 [facility] Laboratory - Hematology and Cell countsOrdered By: Dr. Urena on 10-19-2022 Anisocytosis Ql (Bld) 1+ [facility] Erythrocyte distribution width (RBC) [Entitic vol] 55.6 fL 35.1-43.9 [facility] Erythrocyte distribution width (RBC) [Ratio] 15.8 % 11.6-14.6 [facility] Immature granulocytes/100 WBC (Bld) 1.000 % 0.0-0.9 [facility] Comment on above: IG% - Immature Granu locytes (promyelocytes, myelocytes and metamyelocytes) > 1% indicates that a LEFT SHIFT is Present. MCH (RBC) [Entitic mass] 32.1 pg 27.0-32.0 [facility] Nucleated RBC/100 WBC (Bld) [Ratio] 0 % 0-5 [facility] MCHC Auto (RBC) [Mass/Vol]Or dered By: ED PROVIDER on 10-19-2022 MCHC (RBC) [Mass/Vol] 34.6 g/dL 32-36 [facility] MCHC Auto (RBC) [Mass/Vol]Or dered By: Dr. Urena on 10-19-2022 MCHC (RBC) [Mass/Vol] 33.8 g/dL 32-36 [facility] Macrocytes detectionOrdered By: Dr. Urena on 10-19-2022 Macrocytes Ql (Bld) 1+ [facility] Mucus LM Ql (Urine sed)Order ed By: ED PROVIDER on 10-19-2022 Mucus Ql (Urine sed) 0 SEEN /hpf [facility] Nitrite Test strip Ql (U)Ord ered By: ED PROVIDER on 10-19-2022 Nitrite Ql (U) Positive Negative [facility] No Panel InformationOrdered By: Dr. Hastings on 10-19-2022 Estimated Creatinine Clearance Calc 54.00 ml/min [facility] Estimated GFR (MDRD) Amer 66 mL/min >60 [facility] Comment on above: GFR Calc Estimated GFR (MDRD) Non-Af Amer 54 mL/min >60 [facility] Comment on above: Non- GFR Calc No Panel InformationOrdered By: Dr. Urena on 10-19-2022 D-Dimer Quantitative (PE/DVT) 2.49 FEU/ug/m 0.27-0.49 [facility] Comment on above: CRITICAL VALUE VERIF IED. CALLED TO 10/19/22 [id number] Bisi Joseph.RESULTS READ BACK BY . MADE SEVERAL ATTEMPTS TO CALL [facility] AND JUST GOT VOICE MAIL. D-Dimer ELEVATED (>0.49): Additional studies and clinicalassessments are indicated to conclude diagnosis of:Deep Vein Thrombosis (DVT) or Pulmonary Embolism (PE) Estimated GFR (MDRD) Amer 64 mL/min >60 [facility] Comment on above: GFR Calc Estimated GFR (MDRD) Non-Af Amer 53 mL/min >60 [facility] Comment on above: Non- GFR Calc Platelets bldOrdered By: ED PROVIDER on 10-19-2022 Platelets (Bld) [#/Vol] 165 10*3/uL 150-450 [facility] Platelets bldOrdered By: Dr. Urena on 10-19-2022 Platelets (Bld) [#/Vol] 157 10*3/uL 150-450 [facility] Protein Test strip Ql (U)Ord ered By: ED PROVIDER on 10-19-2022 Protein Ql (U) 30 mg/dl Negative [facility] RBC morphologyOrdered By: Dr Jorge Urena on 10-19-2022 RBC morphology finding Nom (Bld) N CHROM NORMAL NORM C&C [facility] Serum or plasma albumin emma urement (mass/volume)Ordered By: Dr. Hastings on 10-19-2022 Albumin [Mass/Vol] 2.9 g/dL 3.2-5.0 [facility] Serum or plasma albumin emma urement (mass/volume)Ordered By: Dr. Urena on 10-19-2022 Albumin [Mass/Vol] 2.8 g/dL 3.2-5.0 [facility] Serum or plasma albumin/glob ulin mass ratioOrdered By: Dr. Hastings on 10-19-2022 Albumin/Globulin [Mass ratio] 0.7 {ratio} 0.9-2.4 [facility] Serum or plasma albumin/glob ulin mass ratioOrdered By: Dr. Urena on 10-19-2022 Albumin/Globulin [Mass ratio] 0.6 {ratio} 0.9-2.4 [facility] Serum or plasma calcium emma urement (mass/volume)Ordered By: Dr. Hastings on 10-19-2022 Calcium [Mass/Vol] 8.3 mg/dL 8.5-10.1 [facility] Serum or plasma calcium emma urement (mass/volume)Ordered By: Dr. Urena on 10-19-2022 Calcium [Mass/Vol] 8.8 mg/dL 8.5-10.1 [facility] Serum or plasma creatinine m easurement (mass/volume)Ordered By: Dr. Hastings on 10-19-2022 Creatinine [Mass/Vol] 1.16 mg/dL 0.55-1.02 [facility] Comment on above: The validity of the calculated GFR & GFRAA in patients over 70 years has not been determined. Clinical correlation is essential. Serum or plasma creatinine m easurement (mass/volume)Ordered By: Dr. Urena on 10-19-2022 Creatinine [Mass/Vol] 1.18 mg/dL 0.55-1.02 [facility] Comment on above: The validity of the calculated GFR & GFRAA in patients over 70 years has not been determined. Clinical correlation is essential. Serum or plasma urea nitroge n measurement (mass/volume)Ordered By: Dr. Hastings on 10-19-2022 Urea nitrogen [Mass/Vol] 25 mg/dL 12-20 [facility] Serum or plasma urea nitroge n measurement (mass/volume)Ordered By: Dr. Urena on 10-19-2022 Urea nitrogen [Mass/Vol] 25 mg/dL 12-20 [facility] Squamous epithelial cells de tection in urine sediment by light microscopyOrdered By: ED PROVIDER on 10-19-2022 Epithelial cells.squamous LM Ql (Urine sed) 0 SEEN /hpf 5-10 [facility] Thin prep Papanicolaou smear with manual screeningOrdered By: Dr. Hastings on 10-19-2022 Thin prep Papanicolaou smear with manual screening 38 U/L [facility] Thin prep Papanicolaou smear with manual screening 10-17 [facility] Thin prep Papanicolaou smear with manual screeningOrdered By: Dr. Urena on 10-19-2022 Thin prep Papanicolaou smear with manual screening 40 U/L [facility] Thin prep Papanicolaou smear with manual screening 11 10-17 [facility] Toxic leukocyte granulation detectionOrdered By: Dr. Urena on 10-19-2022 Toxic granules LM Ql (Bld) 1+ [facility] Urine blood detectionOrdered By: ED PROVIDER on 10-19-2022 RBC Ql (U) 50 /ul Negative [facility] RBC Ql (U) 0-5 SEEN /hpf 0-5 [facility] Urine clarityOrdered By: ED PROVIDER on 10-19-2022 Clarity (U) Sl. Cloudy Clear [facility] Urine color determinationOrd ered By: ED PROVIDER on 10-19-2022 Color (U) Yellow Yellow [facility] Urine glucose detectionOrder ed By: ED PROVIDER on 10-19-2022 Glucose Ql (U) Normal mg/dl Normal [facility] Urine leukocyte esterase det ection by dipstickOrdered By: ED PROVIDER on 10-19-2022 Leukocyte esterase Test strip Ql (U) 500 /ul Negative [facility] Urine pHOrdered By: ED PROVI GILL on 10-19-2022 pH (U) 6.0 [pH] 5.0 - 8.0 [facility] Urine sediment bacteria coun t by microscopy (number/high power field)Ordered By: ED PROVIDER on 10-19-2022 Bacteria LM.HPF (Urine sed) [#/Area] RARE /hpf None Seen [facility] Urine specific gravity measu rementOrdered By: ED PROVIDER on 10-19-2022 Specific gravity (U) [Rel density] 1.010 1.002-1.03 0 [facility] Urobilinogen Auto test strip Ql (U)Ordered By: ED PROVIDER on 10-19-2022 Urobilinogen Ql (U) Normal mg/dl Normal [facility] Basophil percentageOrdered B y: Dr. Urena on 09-12-2022 Amylase [Catalytic activity/Vol] 22 U/L 25-115 [facility] Basophil percentageOrdered B y: Chandler Salamanca on 09-12-2022 Basophil percentage 3.8 mg/dL 2.5-4.9 [facility] Erythrocyte sedimentation ra teOrdered By: Chandler Salamanca on 09-12-2022 ESR (Bld) [Velocity] 17 mm/h 0-30 [facility] Laboratory - Chemistry and C hemistry - challengeOrdered By: Chandler Salamanca on 09-12-2022 Cobalamin (Vitamin B12) [Mass/Vol] 416 pg/mL 211-911 [facility] Magnesium [Mass/Vol] 1.9 mg/dL 1.6-2.6 [facility] Laboratory - Chemistry and C hemistry - challengeOrdered By: Dr. Urena on 09-12-2022 Lipase [Catalytic activity/Vol] 140 U/L 73-393 [facility] No Panel InformationOrdered By: Chandler Salamanca on 09-12-2022 Immunoglobulin G4 42 mg/dL 2-96 [facility] Thyroid Stimulating Hormone (TSH) 1.05 uIU/mL 0.358-3.74 [facility] Whole Blood Vitamin B1 Level 116.0 nmol/L 66.5-200.0 [facility] Comment on above: Performed at: [address] [id number] Director: Gal Jon PhD, Phone: [phone] at: - [facility] [id number] Director: Jose Metzger MD, Phone: [phone] Serum IgG subclass 1 measure ment (mass/volume)Ordered By: Chandler Salamanca on 09-12-2022 IgG subclass 1 (S) [Mass/Vol] 438 mg/dL 248-810 [facility] Serum IgG subclass 2 measure ment (mass/volume)Ordered By: Chandler Salamanca on 09-12-2022 IgG subclass 2 (S) [Mass/Vol] 199 mg/dL 130-555 [facility] Serum IgG subclass 3 measure ment (mass/volume)Ordered By: Chandler Salamanca on 09-12-2022 IgG subclass 3 (S) [Mass/Vol] 95 mg/dL 15-102 [facility] Serum or plasma C reactive p rotein measurement (mass/volume)Ordered By: Chandler Salamanca on 09-12-2022 CRP [Mass/Vol] mg/L 0.0-3.0 [facility] Comment on above: C-Reactive Protein ( CRP) provides useful information for thediagnosis, therapy and monitoring of inflammatory processesand associated diseases. For the evaluation of Relative Riskfor Cardiovascular Disease, a High Sensitivity CRP (HSCRP)should be ordered. Serum or plasma IgG measurem ent (mass/volume)Ordered By: Chandler Salamanca on 09-12-2022 IgG [Mass/Vol] 825 mg/dL [phone] [facility] Absolute lymphocyte countOrd ered By: Dr. Smith on 08-23-2022 Lymphocytes Auto (Unsp spec) [#/Vol] 2.79 10*3/uL 0.83-4.51 [facility] Basophil percentageOrdered B y: Dr. Smith on 08-23-2022 Basophil percentage 0-5 SEEN /hpf 0-5 [facility] Basophils/100 WBC (Bld) 0.8 % 0-1 [facility] Bilirubin [Mass/Vol] 0.30 mg/dL 0.20-1.00 [facility] Comment on above: For patients on eltr ombopag therapy, use of Dimension [place] TBIL is not recommended. Chloride [Moles/Vol] 106 mmol/L 98-107 [facility] Eosinophils/100 WBC (Bld) 2.0 % 0-5 [facility] Glucose [Mass/Vol] 137 mg/dL 74-106 [facility] Comment on above: Fasting Glucose resu lt greater than or equal to 126 mg/dL suggests DIABETES MELLITUS per A.D.A. criteria. Neutrophils (Bld) [#/Vol] 4.9 10*3/uL 2.0-7.7 [facility] Neutrophils/100 WBC (Bld) 58.1 % 47-70 [facility] Potassium [Moles/Vol] 3.7 mmol/L 3.5-5.1 [facility] Protein [Mass/Vol] 7.2 g/dL 6.4-8.2 [facility] Sodium [Moles/Vol] 136 mmol/L 136-145 [facility] WBC (Bld) [#/Vol] 8.5 10*3/uL 4.4-11.0 [facility] Bilirubin Test strip Ql (U)O rdered By: Dr. Smith on 08-23-2022 Bilirubin Ql (U) Negative Negative [facility] Blood erythrocytes count (nu mber/volume)Ordered By: Dr. Smith on 08-23-2022 RBC (Bld) [#/Vol] 4.33 10*6/uL 4.2-5.4 [facility] Blood hemoglobin measurement (mass/volume)Ordered By: Dr. Smith on 08-23-2022 Hemoglobin (Bld) [Mass/Vol] 13.8 g/dL 12.0-15.0 [facility] Blood lymphocytes/100 leukoc ytesOrdered By: Dr. Smith on 08-23-2022 Lymphocytes/100 WBC (Bld) 32.8 % 19-41 [facility] Blood monocytes/100 leukocyt esOrdered By: Dr. Smith on 08-23-2022 Monocytes/100 WBC (Bld) 6.1 % 0-10 [facility] Blood platelet mean volumeOr dered By: Dr. Smith on 08-23-2022 Platelet mean volume (Bld) [Entitic vol] 10.4 fL 6.2-12.0 [facility] Determination of erythrocyte mean corpuscular volume (MCV)Ordered By: Dr. Smith on 08-23-2022 MCV (RBC) [Entitic vol] 96.1 fL 81-99 [facility] Hematocrit Auto (Bld) [Volum e fraction]Ordered By: Dr. Smith on 08-23-2022 Hematocrit (Bld) [Volume fraction] 41.6 % 37-47 [facility] Ketones Test strip Ql (U)Ord ered By: Dr. Smith on 08-23-2022 Ketones Ql (U) Negative Negative [facility] Laboratory - Chemistry and C hemistry - challengeOrdered By: Dr. Smith on 08-23-2022 ALP [Catalytic activity/Vol] 88 U/L 45-117 [facility] ALT [Catalytic activity/Vol] 26 U/L 13-56 [facility] CO2 [Moles/Vol] 24.0 mmol/L 21.0-32.0 [facility] Globulin (S) [Mass/Vol] 3.7 g/dL 2.2-4.2 [facility] Lipase [Catalytic activity/Vol] 221 U/L 73-393 [facility] Urea nitrogen/Creatinine [Mass ratio] 22.1 mg/mg 10-20 [facility] Laboratory - Hematology and Cell countsOrdered By: Dr. Smith on 08-23-2022 Erythrocyte distribution width (RBC) [Entitic vol] 43.5 fL 35.1-43.9 [facility] Erythrocyte distribution width (RBC) [Ratio] 12.4 % 11.6-14.6 [facility] Immature granulocytes/100 WBC (Bld) 0.200 % 0.0-0.9 [facility] Comment on above: IG% - Immature Granu locytes (promyelocytes, myelocytes and metamyelocytes) > 1% indicates that a LEFT SHIFT is Present. MCH (RBC) [Entitic mass] 31.9 pg 27.0-32.0 [facility] Nucleated RBC/100 WBC (Bld) [Ratio] 0 % 0-5 [facility] MCHC Auto (RBC) [Mass/Vol]Or dered By: Dr. Smith on 08-23-2022 MCHC (RBC) [Mass/Vol] 33.2 g/dL 32-36 [facility] Mucus LM Ql (Urine sed)Order ed By: Dr. Smith on 08-23-2022 Mucus Ql (Urine sed) 0 SEEN /hpf [facility] Nitrite Test strip Ql (U)Ord ered By: Dr. Smith on 08-23-2022 Nitrite Ql (U) Negative Negative [facility] No Panel InformationOrdered By: Dr. Smith on 08-23-2022 Estimated Creatinine Clearance Calc 92.12 ml/min [facility] Estimated GFR (MDRD) Amer 122 mL/min >60 [facility] Comment on above: GFR Calc Estimated GFR (MDRD) Non-Af Amer 101 mL/min >60 [facility] Comment on above: Non- GFR Calc Platelets bldOrdered By: Dr. Smith on 08-23-2022 Platelets (Bld) [#/Vol] 331 10*3/uL 150-450 [facility] Protein Test strip Ql (U)Ord ered By: Dr. Smith on 08-23-2022 Protein Ql (U) 15 mg/dl Negative [facility] Serum or plasma albumin emma urement (mass/volume)Ordered By: Dr. Smith on 08-23-2022 Albumin [Mass/Vol] 3.5 g/dL 3.2-5.0 [facility] Serum or plasma albumin/glob ulin mass ratioOrdered By: Dr. Smith on 08-23-2022 Albumin/Globulin [Mass ratio] 0.9 {ratio} 0.9-2.4 [facility] Serum or plasma calcium emma urement (mass/volume)Ordered By: Dr. Smith on 08-23-2022 Calcium [Mass/Vol] 9.1 mg/dL 8.5-10.1 [facility] Serum or plasma creatinine m easurement (mass/volume)Ordered By: Dr. Smith on 08-23-2022 Creatinine [Mass/Vol] 0.68 mg/dL 0.55-1.02 [facility] Comment on above: The validity of the calculated GFR & GFRAA in patients over 70 years has not been determined. Clinical correlation is essential. Serum or plasma urea nitroge n measurement (mass/volume)Ordered By: Dr. Smith on 08-23-2022 Urea nitrogen [Mass/Vol] 15 mg/dL 7-18 [facility] Squamous epithelial cells de tection in urine sediment by light microscopyOrdered By: Dr. Smith on 08-23-2022 Epithelial cells.squamous LM Ql (Urine sed) 0-5 SEEN /hpf 5-10 [facility] Thin prep Papanicolaou smear with manual screeningOrdered By: Dr. Smith on 08-23-2022 Thin prep Papanicolaou smear with manual screening 21 U/L 15-37 [facility] Thin prep Papanicolaou smear with manual screening 6 5-15 [facility] Urine blood detectionOrdered By: Dr. Smith on 08-23-2022 RBC Ql (U) Negative Negative [facility] RBC Ql (U) 0 SEEN /hpf 0-5 [facility] Urine clarityOrdered By: Dr. Smith on 08-23-2022 Clarity (U) Sl. Cloudy Clear [facility] Urine color determinationOrd ered By: Dr. Smith on 08-23-2022 Color (U) Yellow Yellow [facility] Urine glucose detectionOrder ed By: Dr. Smith on 08-23-2022 Glucose Ql (U) Normal mg/dl Normal [facility] Urine leukocyte esterase det ection by dipstickOrdered By: Dr. Smith on 08-23-2022 Leukocyte esterase Test strip Ql (U) 25 /ul Negative [facility] Urine pHOrdered By: Dr. Ulisses morris on 08-23-2022 pH (U) 6.5 [pH] 5.0 - 8.0 [facility] Urine sediment bacteria coun t by microscopy (number/high power field)Ordered By: Dr. Smith on 08-23-2022 Bacteria LM.HPF (Urine sed) [#/Area] 1 /[HPF] None Seen [facility] Urine specific gravity measu rementOrdered By: Dr. Smith on 08-23-2022 Specific gravity (U) [Rel density] 1.015 1.002-1.03 0 [facility] Urobilinogen Auto test strip Ql (U)Ordered By: Dr. Smith on 08-23-2022 Urobilinogen Ql (U) Normal mg/dl Normal [facility] Absolute lymphocyte countOrd ered By: Dr. Crouch on 08-04-2022 Lymphocytes Auto (Unsp spec) [#/Vol] 1.41 10*3/uL 0.83-4.51 [facility] Basophil percentageOrdered B y: Dr. Crouch on 08-04-2022 Basophils/100 WBC (Bld) 0.9 % 0-1 [facility] Bilirubin [Mass/Vol] 0.30 mg/dL 0.20-1.00 [facility] Comment on above: For patients on eltr ombopag therapy, use of Dim[place] TBIL is not recommended. Chloride [Moles/Vol] 103 mmol/L 98-107 [facility] Eosinophils/100 WBC (Bld) 4.5 % 0-5 [facility] Glucose [Mass/Vol] 125 mg/dL 74-106 [facility] Comment on above: Fasting Glucose resu lt from 100 to 125 mg/dL suggests IMPAIRED HOMEOSTASIS per A.D.A. criteria. Lactate [Moles/Vol] 0.8 mmol/L 0.4-2.0 [facility] Neutrophils (Bld) [#/Vol] 3.0 10*3/uL 2.0-7.7 [facility] Neutrophils/100 WBC (Bld) 54.4 % 47-70 [facility] Potassium [Moles/Vol] 3.7 mmol/L 3.5-5.1 [facility] Protein [Mass/Vol] 6.1 g/dL 6.4-8.2 [facility] Sodium [Moles/Vol] 138 mmol/L 136-145 [facility] WBC (Bld) [#/Vol] 5.6 10*3/uL 4.4-11.0 [facility] Blood erythrocytes count (nu mber/volume)Ordered By: Dr. Crouch on 08-04-2022 RBC (Bld) [#/Vol] 3.33 10*6/uL 4.2-5.4 [facility] Blood hemoglobin measurement (mass/volume)Ordered By: Dr. Crouch on 08-04-2022 Hemoglobin (Bld) [Mass/Vol] 11.1 g/dL 12.0-15.0 [facility] Blood lymphocytes/100 leukoc ytesOrdered By: Dr. Crouch on 08-04-2022 Lymphocytes/100 WBC (Bld) 25.3 % 19-41 [facility] Blood monocytes/100 leukocyt esOrdered By: Dr. Crouch on 08-04-2022 Monocytes/100 WBC (Bld) 14.5 % 0-10 [facility] Blood platelet mean volumeOr dered By: Dr. Crouch on 08-04-2022 Platelet mean volume (Bld) [Entitic vol] 10.4 fL 6.2-12.0 [facility] Determination of erythrocyte mean corpuscular volume (MCV)Ordered By: Dr. Crouch on 08-04-2022 MCV (RBC) [Entitic vol] 97.6 fL 81-99 [facility] Erythrocyte sedimentation ra teOrdered By: Dr. Crouch on 08-04-2022 ESR (Bld) [Velocity] 28 mm/h 0-30 [facility] Hematocrit Auto (Bld) [Volum e fraction]Ordered By: Dr. Crouch on 08-04-2022 Hematocrit (Bld) [Volume fraction] 32.5 % 37-47 [facility] Laboratory - Chemistry and C hemistry - challengeOrdered By: Dr. Crouch on 08-04-2022 HCG ( test) Ql (U) Negative [facility] Comment on above: Very dilute urine sp ecimens, as indicated by a low specificgravity, may not contain community service representative levels of hCG. If is still suspected, a first morning urinespecimen should be collected 48 hours later and tested. ALP [Catalytic activity/Vol] 94 U/L 45-117 [facility] ALT [Catalytic activity/Vol] 46 U/L 13-56 [facility] CO2 [Moles/Vol] 27.0 mmol/L 21.0-32.0 [facility] Globulin (S) [Mass/Vol] 3.4 g/dL 2.2-4.2 [facility] Urea nitrogen/Creatinine [Mass ratio] 9.2 mg/mg 10-20 [facility] Laboratory - CoagulationOrde red By: Dr. Crouch on 08-04-2022 aPTT Coag (Bld) [Time] 73.9 s 24.1-36.2 [facility] Laboratory - Hematology and Cell countsOrdered By: Dr. Crouch on 08-04-2022 Erythrocyte distribution width (RBC) [Entitic vol] 48.0 fL 35.1-43.9 [facility] Erythrocyte distribution width (RBC) [Ratio] 13.4 % 11.6-14.6 [facility] Immature granulocytes/100 WBC (Bld) 0.400 % 0.0-0.9 [facility] Comment on above: IG% - Immature Granu locytes (promyelocytes, myelocytes and metamyelocytes) > 1% indicates that a LEFT SHIFT is Present. MCH (RBC) [Entitic mass] 33.3 pg 27.0-32.0 [facility] Nucleated RBC/100 WBC (Bld) [Ratio] 0 % 0-5 [facility] MCHC Auto (RBC) [Mass/Vol]Or dered By: Dr. Crouch on 08-04-2022 MCHC (RBC) [Mass/Vol] 34.2 g/dL 32-36 [facility] No Panel InformationOrdered By: Dr. Crouch on 08-04-2022 Estimated Creatinine Clearance Calc 94.91 ml/min [facility] Estimated GFR (MDRD) Amer 127 mL/min >60 [facility] Comment on above: GFR Calc Estimated GFR (MDRD) Non-Af Amer 105 mL/min >60 [facility] Comment on above: Non- GFR Calc Platelets bldOrdered By: Dr. Crouch on 08-04-2022 Platelets (Bld) [#/Vol] 214 10*3/uL 150-450 [facility] Serum or plasma C reactive p rotein measurement (mass/volume)Ordered By: Dr. Crouch on 08-04-2022 CRP [Mass/Vol] 15.50 mg/L 0.0-3.0 [facility] Comment on above: C-Reactive Protein ( CRP) provides useful information for thediagnosis, therapy and monitoring of inflammatory processesand associated diseases. For the evaluation of Relative Riskfor Cardiovascular Disease, a High Sensitivity CRP (HSCRP)should be ordered. Serum or plasma albumin emma urement (mass/volume)Ordered By: Dr. Crouch on 08-04-2022 Albumin [Mass/Vol] 2.7 g/dL 3.2-5.0 [facility] Serum or plasma albumin/glob ulin mass ratioOrdered By: Dr. Crouch on 08-04-2022 Albumin/Globulin [Mass ratio] 0.8 {ratio} 0.9-2.4 [facility] Serum or plasma calcium emma urement (mass/volume)Ordered By: Dr. Crouch on 08-04-2022 Calcium [Mass/Vol] 9.2 mg/dL 8.5-10.1 [facility] Serum or plasma creatinine m easurement (mass/volume)Ordered By: Dr. Crouch on 08-04-2022 Creatinine [Mass/Vol] 0.66 mg/dL 0.55-1.02 [facility] Comment on above: The validity of the calculated GFR & GFRAA in patients over 70 years has not been determined. Clinical correlation is essential. Serum or plasma prolactin me asurement (mass/volume)Ordered By: Dr. Crouch on 08-04-2022 Prolactin [Mass/Vol] 84.7 ng/mL [facility] Comment on above: NORMAL REFERENCE RAN GES FEMALE NON- 2.2 - 30.3 ng/mL 8.1 - 347.6 ng/mL POST-MENOPAUSAL 0.7 - 31.5 ng/mL MALE 2.5 - 17.4 ng/mL Serum or plasma urea nitroge n measurement (mass/volume)Ordered By: Dr. Crouch on 08-04-2022 Urea nitrogen [Mass/Vol] 6 mg/dL 7-18 [facility] Thin prep Papanicolaou smear with manual screeningOrdered By: Dr. Crouch on 08-04-2022 Thin prep Papanicolaou smear with manual screening 49 U/L 15-37 [facility] Thin prep Papanicolaou smear with manual screening 8 5-15 [facility] Basophil percentageOrdered B y: Dr. Crouch on 08-03-2022 Basophil percentage < 10.0 umol/L 11-32 [facility] INR in Blood by Coagulation assayOrdered By: Dr. Crouch on 08-03-2022 INR Coag (Bld) [Relative time] 1.1 {INR} [facility] Laboratory - Chemistry and C hemistry - challengeOrdered By: Dr. Crouch on 08-03-2022 Magnesium [Mass/Vol] 1.6 mg/dL 1.6-2.6 [facility] Laboratory - CoagulationOrde red By: Dr. Crouch on 08-03-2022 PT Coag (PPP) [Time] 13.9 s 11.7-14.9 [facility] Laboratory - Microbiology an d Antimicrobial susceptibilityOrdered By: Dr. Crouch on 08-03-2022 Respiratory pathogens DNA and RNA 12b panel SRAVANTHI+probe (Unsp spec) [facility] No Panel InformationOrdered By: Dr. Crouch on 08-03-2022 D-Dimer Quantitative (PE/DVT) 1.51 FEU/ug/m 0.27-0.49 [facility] Comment on above: D-Dimer ELEVATED (>0 .49): Additional studies and clinicalassessments are indicated to conclude diagnosis of:Deep Vein Thrombosis (DVT) or Pulmonary Embolism (PE)CRITICAL VALUE VERIFIED. CALLED TO [id number] Nereida Porter.RESULTS READ BACK BY SAME . Methicillin-Resist S.aureus DNA PCR Negative Negative [facility] Urine Legionella pneumophila antigen detectionOrdered By: Dr. Crouch on 08-03-2022 L. pneumophila Ag Ql (U) [facility] Basophil percentageOrdered B y: Dr. Leonard on 08-01-2022 Basophil percentage 3.3 mg/dL 2.5-4.9 [facility] Albumin Elph [Mass/Vol]Order ed By: Chandler Salamanca on 07-30-2022 Albumin [Mass/Vol] 2.8 g/dL 2.9-4.4 [facility] Atypical perinuclear antineu trophil cytoplasmic antibodies measurementOrdered By: Chandler Salamanca on 07-30-2022 Neutrophil cytoplasmic Ab.perinuclear.atypical IF (S) [Titer] <1:20 titer Neg:<1:20 [facility] Comment on above: The atypical pANCA p attern has been observed in asignificant percentage of patients with ulcerative colitis,primary sclerosing cholangitis and autoimmune hepatitis.Performed at: [address] [id number] Director: Gal Jon PhD, Phone: [phone] Basophil percentageOrdered B y: Chandler Salamanca on 07-30-2022 Basophil percentage < 0.2 AI 0.0-0.9 [facility] Interpretation of serum or p lasma protein pattern by immunofixation (narrative resultOrdered By: Chandler Salamanca on 07-30-2022 Protein Fractions Immunofixation Dane [Interp] See comment [facility] Comment on above: NOT OBSERVED No Panel InformationOrdered By: Chandler Salamanca on 07-30-2022 Addendum Document Comment . [facility] Comment on above: Protein electrophore sis scan will follow via computer,mail, or radio division officer delivery. Centromere B Antibody <0.2 AI 0.0-0.9 [facility] Immunoglobulin G4 34 mg/dL 2-96 [facility] CUSTOM TAILOR APPRENTICE Antibody 0.3 AI 0.0-0.9 [facility] Serum DNA double strand anti body assay (units/volume)Ordered By: Chandler Salamanca on 07-30-2022 DNA double strand Ab Qn (S) 1 [IU]/mL 0-9 [facility] Comment on above: Negative <5 Equivoca l 5 - 9 Positive >9 Serum IgG subclass 1 measure ment (mass/volume)Ordered By: Chandler Salamanca on 07-30-2022 IgG subclass 1 (S) [Mass/Vol] 311 mg/dL 248-810 [facility] Serum IgG subclass 2 measure ment (mass/volume)Ordered By: Chandler Salamanca on 07-30-2022 IgG subclass 2 (S) [Mass/Vol] 143 mg/dL 130-555 [facility] Serum IgG subclass 3 measure ment (mass/volume)Ordered By: Chandler Salamanca on 07-30-2022 IgG subclass 3 (S) [Mass/Vol] 82 mg/dL 15-102 [facility] Serum Lizette-1 antibody assay (u nits/volume)Ordered By: Chandler Salamanca on 07-30-2022 Lizette-1 extractable nuclear Ab Qn (S) <0.2 AI 0.0-0.9 [facility] Serum Scl-70 extractable nuc lear antibody assay (units/volume)Ordered By: Chandler Salamanca on 07-30-2022 SCL-70 extractable nuclear Ab Qn (S) <0.2 AI 0.0-0.9 [facility] Serum Lee extractable nucl ear antibody detectionOrdered By: Chandler Salamanca on 07-30-2022 Lee extractable nuclear Ab Ql (S) <0.2 AI 0.0-0.9 [facility] Serum [id number] measu rement by electrophoresisOrdered By: Chandler Salamanca on 07-30-2022 Alpha 1 globulin Elph [Mass/Vol] 0.4 g/dL 0.0-0.4 [facility] Alpha 1 globulin Elph [Mass/Vol] 0.6 g/dL 0.4-1.0 [facility] Serum classic neutrophil cyt oplasmic antibody assay (units/volume)Ordered By: Chandler Salamanca on 07-30-2022 Neutrophil cytoplasmic Ab.classic Qn (S) <1:20 titer Neg:<1:20 [facility] Serum or plasma IgA measurem ent (mass/volume)Ordered By: Chandler Salamanca on 07-30-2022 IgA [Mass/Vol] 318 mg/dL 87-352 [facility] Serum or plasma IgG measurem ent (mass/volume)Ordered By: Chandler Salamanca on 07-30-2022 IgG [Mass/Vol] 608 mg/dL 586-1602 [facility] IgG [Mass/Vol] Not Reportable [facility] Serum or plasma IgM measurem ent (mass/volume)Ordered By: Chandler Salamanca on 07-30-2022 IgM [Mass/Vol] 113 mg/dL 26-217 [facility] Serum or plasma beta globuli n measurement by electrophoresis (mass/volume)Ordered By: Chandler Salamanca on 07-30-2022 Beta globulin Elph [Mass/Vol] 1.1 g/dL 0.7-1.3 [facility] Serum or plasma gamma globul in measurement by electrophoresis (mass/volume)Ordered By: Chandler Salamanca on 07-30-2022 Gamma globulin Elph [Mass/Vol] 0.5 g/dL 0.4-1.8 [facility] Serum or plasma immunoelectr ophoresis interpretation (nominal result)Ordered By: Chandler Salamanca on 07-30-2022 Interpretation IEP [Interp] Comment . [facility] Comment on above: No monoclonality det ected. Serum perinuclear neutrophil cytoplasmic antibody titer by immunofluorescenceOrdered By: Chandler Salamanca on 07-30-2022 Neutrophil cytoplasmic Ab.perinuclear IF (S) [Titer] <1:20 titer Neg:<1:20 [facility] Comment on above: The presence of posi tive fluorescence exhibiting P-ANCA orC-ANCA patterns alone is not specific for the diagnosis ofWegener's Granulomatosis (WG) or microscopic polyangiitis.Decisions about treatment should not be based solely onANCA IFA results. The International ANCA Group Consensusrecommends follow up testing of positive sera with both WY-3 and MPO-ANCA enzyme immunoassays. As many as 5% serumsamples are positive only by EIA. Ref. AM J Clin Dtitlt0957;111:507-513. Thin prep Papanicolaou smear with manual screeningOrdered By: Chandler Salamanca on 07-30-2022 Thin prep Papanicolaou smear with manual screening 1.1 0.7-1.7 [facility] Total protein bloodOrdered B y: Chandler Salaamnca on 07-30-2022 Protein [Mass/Vol] 5.5 g/dL 6.0-8.5 [facility] Basophil percentageOrdered B y: Chandler Salamanca on 07-29-2022 Amylase [Catalytic activity/Vol] 520 U/L 25-115 [facility] Laboratory - Chemistry and C hemistry - challengeOrdered By: Chandler Salamanca on 07-29-2022 Lipase [Catalytic activity/Vol] 4586 U/L 73-393 [facility] No Panel InformationOrdered By: Dr. Leonard on 07-29-2022 Thyroid Stimulating Hormone (TSH) 2.20 uIU/mL 0.358-3.74 [facility] Miscellaneous Test See comment [facility] Comment on above: TEST RESULT LIMITSDi lute Josias's Viper Venom DRVVT Screen Seconds 34.1 sec Reference Range: <= 47.0 DRVVT Confirm Seconds Testing Not Indicated DRVVT Ratio Testing Not Indicated TESTING PERFORMED AT [facility]. ORIGINAL REPORT ON FILE IN LAB CONTAINS ADDITIONAL TEST SITE INFORMATION. Absolute lymphocyte countOrd ered By: Cong Marquez on 07-28-2022 Lymphocytes Auto (Unsp spec) [#/Vol] 1.18 10*3/uL 0.83-4.51 [facility] Basophil percentageOrdered B y: Cong Marquez on 07-28-2022 Basophil percentage 0-5 SEEN /hpf 0-[address] [facility] Basophils/100 WBC (Bld) 0.6 % 0-1 [facility] Chloride [Moles/Vol] 99 mmol/L 98-107 [facility] Eosinophils/100 WBC (Bld) 1.1 % 0-5 [facility] Glucose [Mass/Vol] 138 mg/dL 74-106 [facility] Comment on above: Fasting Glucose resu lt greater than or equal to 126 mg/dL suggests DIABETES MELLITUS per A.D.A. criteria. Neutrophils (Bld) [#/Vol] 9.8 10*3/uL 2.0-7.7 [facility] Neutrophils/100 WBC (Bld) 82.5 % 47-70 [facility] Potassium [Moles/Vol] 2.8 mmol/L 3.5-5.1 [facility] Sodium [Moles/Vol] 137 mmol/L 136-145 [facility] WBC (Bld) [#/Vol] 11.9 10*3/uL 4.4-11.0 [facility] Basophil percentageOrdered B y: Dr. Cottrell on 07-28-2022 Bilirubin [Mass/Vol] 0.90 mg/dL 0.20-1.00 [facility] Comment on above: For patients on eltr ombopag therapy, use of Dimension [place] TBIL is not recommended. Protein [Mass/Vol] 7.7 g/dL 6.4-8.2 [facility] Beta hCG serum qualOrdered B y: Cong Marquez on 07-28-2022 Beta HCG ( test) Ql Negative [facility] Bilirubin Test strip Ql (U)O rdered By: Cong Marquez on 07-28-2022 Bilirubin Ql (U) 1 mg/dL Negative [facility] Comment on above: COLOR OF URINE MAY A FFECT DIPSTICK RESULTS. Blood erythrocytes count (nu mber/volume)Ordered By: Cong Marquez on 07-28-2022 RBC (Bld) [#/Vol] 4.55 10*6/uL 4.2-5.4 [facility] Blood hemoglobin measurement (mass/volume)Ordered By: Cong Marquez on 07-28-2022 Hemoglobin (Bld) [Mass/Vol] 14.9 g/dL 12.0-15.0 [facility] Blood lymphocytes/100 leukoc ytesOrdered By: Cong Marquez on 07-28-2022 Lymphocytes/100 WBC (Bld) 9.9 % 19-41 [facility] Blood monocytes/100 leukocyt esOrdered By: Cong Marquez on 07-28-2022 Monocytes/100 WBC (Bld) 5.6 % 0-10 [facility] Blood or tissue coagulation factor II targeted mutation analysis by molecular geneticOrdered By: Dr. Leonard on 07-28-2022 F2 gene targeted mutation analysis [employer] Nom (Bld/Tiss) Comment . [facility] Comment on above: Result: c.*97G>A - [...] in theF2 gene and a c.1601G>A (p. [id number]) variant in the F5 gene(commonly referred to as Factor V Leiden) have an approximately 20-fold increased risk for venous thromboembolism. Risks are likely bran even higher in more complex genotype combinations involving theF2 c.*97G>A variant and Factor V Leiden (PMID: 16858148). Additionalrisk factors include but are not limited [...] for health care providers to discussresults at [phone] ([phone]).Test Details:Variant analyzed: c.*97G>A, previously referred to as [id number]/Limitations:DNA analysis of the F2 gene (NM_000506.5) was [...] was developed and its performance characteristics determinedby [employer]. It has not been cleared or approved by the Food and DrugAdministration.References:Danilo Siddiqi, Mary SAINI, Obi R, Koko WW, Hiram JH; [employer]G ProfessionalPractice and Guidelines Committee. Addendum: [place] [employer] consensus statement on factor V Leiden mutationtesting. [facility] Med. 2020Aug 07. doi: 10.1038/[id number]-v.PMID: 53529417.Lidia BROWN. Prothrombin Thrombophilia. 2005Dec 27[Updated 2020Jul 09]. In: Efren MP, Fabi HH, Uziel RA, et al.,editors. Crista(R) [Internet]. [place]): [facility]; 9019-9916. Available from:https://www.ncbi.nlm.nih.gov/books/OMO3281/Richard Siddiqi, Mray SAINI, Ramesh X, Pato B, Marv EB, Rossi P, Karly CS;[facility] Laboratory [employer] Helper Committee. Venous thromboembolismlaboratory testing (factor V Leiden and factor II c.*97G>A),2018 update: a technical standard of the [place] [employer] MedicalGen[employer] and Genomics ([employer]). Lynn Med. 2018 May;20(12):3705-2570.doi: 10.1038/[id number]-z. Epub 2017Mar 09. PMID: 27518913.Kim Colunga, PhD, Alma Ram, PhDLonnie Wiggins, PhD, Judith Vicente, PhD, Romy Locke, PhD, FACMGW Kalli Breen, PhD, Yuri Vee, PhD, Mario Child, PhD, FACMGPerformed at: [facility] [address] [id number] Director: Jose Metzger MD, Phone: [phone] at: [facility] [address] [id number] Director: Gal Jon PhD, Phone: [phone] at: [facility] [employer] [id number] [place], [place] [id number] Director: Minda Mo [facility], Phone: [phone] Blood platelet mean volumeOr dered By: Cong Marquez on 07-28-2022 Platelet mean volume (Bld) [Entitic vol] 10.1 fL 6.2-12.0 [facility] Determination of erythrocyte mean corpuscular volume (MCV)Ordered By: Cong Marquez on 07-28-2022 MCV (RBC) [Entitic vol] 97.4 fL 81-99 [facility] Direct bilirubinOrdered By: Dr. Cottrell on 07-28-2022 Bilirubin.direct [Mass/Vol] 0.29 mg/dL 0.00-0.30 [facility] Functional protein C measure mentOrdered By: Dr. Leonard on 07-28-2022 Protein C actual/normal Chromogenic method (PPP) [Rel catalytic activity/Vol] 135 % 73-180 [facility] Protein C actual/normal Chromogenic method (PPP) [Rel catalytic activity/Vol] Not Reportable [facility] Hematocrit Auto (Bld) [Volum e fraction]Ordered By: Cong Marquez on 07-28-2022 Hematocrit (Bld) [Volume fraction] 44.3 % 37-47 [facility] INR in Blood by Coagulation assayOrdered By: Dr. Leonard on 07-28-2022 INR Coag (Bld) [Relative time] 1.0 {INR} [facility] Ketones Test strip Ql (U)Ord ered By: Cong Marquez on 07-28-2022 Ketones Ql (U) 150 mg/dl Negative [facility] Comment on above: CRITICAL VALUE VERIF IED. [facility] 0736 Jess Pace.RESULTS READ BACK BY SAME . CRITICAL VALUE *H Laboratory - Chemistry and C hemistry - challengeOrdered By: Dr. Cottrell on 07-28-2022 ALP [Catalytic activity/Vol] 131 U/L 45-117 [facility] ALT [Catalytic activity/Vol] 67 U/L 13-56 [facility] Globulin (S) [Mass/Vol] 3.9 g/dL 2.2-4.2 [facility] Lipase [Catalytic activity/Vol] 9420 U/L 73-393 [facility] Laboratory - Chemistry and C hemistry - challengeOrdered By: Cong Marquez on 07-28-2022 CO2 [Moles/Vol] 28.0 mmol/L 21.0-32.0 [facility] Urea nitrogen/Creatinine [Mass ratio] 18.7 mg/mg 10-20 [facility] Laboratory - CoagulationOrde red By: Dr. Leonard on 07-28-2022 aPTT Coag (Bld) [Time] 27.0 s 24.1-36.2 [facility] PT Coag (PPP) [Time] 13.0 s 11.7-14.9 [facility] Laboratory - Hematology and Cell countsOrdered By: Cong Marquez on 07-28-2022 Erythrocyte distribution width (RBC) [Entitic vol] 49.1 fL 35.1-43.9 [facility] Erythrocyte distribution width (RBC) [Ratio] 13.5 % 11.6-14.6 [facility] Immature granulocytes/100 WBC (Bld) 0.300 % 0.0-0.9 [facility] Comment on above: IG% - Immature Granu locytes (promyelocytes, myelocytes and metamyelocytes) > 1% indicates that a LEFT SHIFT is Present. MCH (RBC) [Entitic mass] 32.7 pg 27.0-32.0 [facility] Nucleated RBC/100 WBC (Bld) [Ratio] 0 % 0-5 [facility] MCHC Auto (RBC) [Mass/Vol]Or dered By: Cong Marquez on 07-28-2022 MCHC (RBC) [Mass/Vol] 33.6 g/dL 32-36 [facility] Mucus LM Ql (Urine sed)Order ed By: Cong Marquez on 07-28-2022 Mucus Ql (Urine sed) 0 SEEN /hpf [facility] Nitrite Test strip Ql (U)Ord ered By: Cong Marquez on 07-28-2022 Nitrite Ql (U) Positive Negative [facility] No Panel InformationOrdered By: Chandler Salamanca on 07-28-2022 Troponin I High Sensitivity 7 pg/mL 3.0-54.0 [facility] Comment on above: Please Note: New Lydia t Units and Gender Specific Reference Ranges. For more information see Policy Stat Procedure [place] High Sensitivity Troponin (TNIH) and attachments. No Panel InformationOrdered By: Dr. Leonard on 07-28-2022 Anti-Cardiolipin IgM Antibody 15 MPL U/mL 0-12 [facility] Comment on above: Negative: <13 Indete rminate: 13 - 20 Low-Med Positive: >20 - 80 High Positive: >80 Factor V Leiden Mutation Comment . [facility] Comment on above: Result: c.1601G>A (p .[id number]) - Not DetectedThis result is not associated with an increased risk for venousthromboembolism. See Additional Clinical Information andComments.Additional Clinical Information:Venous thromboembolism is a multifactorial diseaseinfluenced by genetic, environmental, and circumstantialrisk factors. The c.1601G>A (p. [id number]) variant in theF5 gene, commonly referred to [...] F2 c.*97G>Avariant and Factor V Leiden (PMID: 09467423). Additionalrisk factors include but are not limited [...] for health careproviders to discuss results at [phone] ([phone]).Test Details:Variant Analyzed: c.1601G>A (p. Psh142Urd), referred toas Factor V LeidenMethods/Limitations:DNA analysis of [...] was developed and its performance characteristicsdetermined by [employer]. It has not been cleared orapproved by the Food and Drug Administration.References:Danilo S, Mary AK, Obi R, Koko WW, Hiram JH; ACMGProfessional Practice and Guidelines Committee. Addendum:[place] [employer] consensus statement onfactor V Leiden mutation testing. [facility] Med. 2020Aug 07.doi: 10.1038/[id number]-j. PMID: 68643855.Lidia BROWN. Factor V Leiden Thrombophilia. 1998October 16(Updated 2017Jun 08). In: Efren MP, Fabi HH, Uziel RA,et al., editors. Crista(Jad) (Internet). [place]):[facility] [place]; 0436-3081. Availablefrom: https://www.ncbi.nlm.nih.gov/books/ODO2618/Richard S, Mary AK, Chandler X, Pato B, Marv EB, Rossi P,Karly CS; [facility] Laboratory [employer] Helper Committee.Venous thromboembolism laboratory testing (factor V Leidenand factor II c.*97G>A), 2018 update: a technical standardof the [place] [employer] and Genomics([employer]). Lynn Med. 2018 May;20(12):7654-1958. doi:10.1038/[id number]-b. Epub 2017Mar 09. PMID: 07680467.Kim Colunga, PhD, Alma Ram, PhDLonnie Wiggins, PhD, Judith Vicente, PhD, Romy Locke, PhD, FACESAU Breen, PhD, Yuri Vee, PhD, Mario Child, PhD, [facility] No Panel InformationOrdered By: Cong Marquez on 07-28-2022 Estimated Creatinine Clearance Calc 106.17 ml/min [facility] Estimated GFR (MDRD) Amer 144 mL/min >60 [facility] Comment on above: GFR Calc Estimated GFR (MDRD) Non-Af Amer 119 mL/min >60 [facility] Comment on above: Non- GFR Calc Platelet poor plasma antithr ombin actual/normal ratio by chromogenic method (relativeOrdered By: Dr. Leonard on 07-28-2022 Antithrombin actual/normal Chromogenic method (PPP) [Rel catalytic activity/Vol] 116 % 75-135 [facility] Comment on above: Direct Xa inhibitor anticoagulants such as rivaroxaban,apixaban and edoxaban will lead to spuriously elevatedantithrombin activity levels possibly masking a deficiency. Platelet poor plasma antithr ombin antigen detection by immunoassayOrdered By: Dr. Leonard on 07-28-2022 Antithrombin Ag IA Ql (PPP) 96 % 72-124 [facility] Comment on above: This test was develo ped and its performance characteristicsdetermined by [employer]. It has not been cleared orapproved by the Food and Drug Administration. Platelets bldOrdered By: Erickson Marquez on 07-28-2022 Platelets (Bld) [#/Vol] 267 10*3/uL 150-450 [facility] Protein C antigen assayOrder ed By: Dr. Leonard on 07-28-2022 Protein C Ag actual/normal IA (PPP) [Relative mass conc] 118 % 60-150 [facility] Protein Test strip Ql (U)Ord ered By: Cong Marquez on 07-28-2022 Protein Ql (U) 100 mg/dl Negative [facility] Serum beta 2 glycoprotein 1 IgA antibody detectionOrdered By: Dr. Leonard on 07-28-2022 Beta 2 glycoprotein 1 IgA Ql (S) <9 0-25 [facility] Comment on above: Result Units: GPI [...] glycoprotein 1 IgG Ql (S) <9 0-20 [facility] Comment on above: Result Units: GPI [...] glycoprotein 1 IgM Ql (S) <9 0-32 [facility] Comment on above: Result Units: GPI [...] Qn (S) < 9 GPL U/mL 0-14 [facility] Comment on above: Negative: <15 Indete rminate: 15 - 20 Low-Med Positive: >20 - 80 High Positive: >80 Serum or plasma albumin emma urement (mass/volume)Ordered By: Dr. Cottrell on 07-28-2022 Albumin [Mass/Vol] 3.8 g/dL 3.2-5.0 [facility] Serum or plasma calcium emma urement (mass/volume)Ordered By: Cong Marquez on 07-28-2022 Calcium [Mass/Vol] 9.2 mg/dL 8.5-10.1 [facility] Serum or plasma creatinine m easurement (mass/volume)Ordered By: Cong Marquez on 07-28-2022 Creatinine [Mass/Vol] 0.59 mg/dL 0.55-1.02 [facility] Comment on above: The validity of the calculated GFR & GFRAA in patients over 70 years has not been determined. Clinical correlation is essential. Serum or plasma urea nitroge n measurement (mass/volume)Ordered By: Cong Marquez on 07-28-2022 Urea nitrogen [Mass/Vol] 11 mg/dL 7-18 [facility] Squamous epithelial cells de tection in urine sediment by light microscopyOrdered By: Cong Marquez on 07-28-2022 Epithelial cells.squamous LM Ql (Urine sed) 5-10 SEEN /hpf 5-10 [facility] Thin prep Papanicolaou smear with manual screeningOrdered By: Dr. Cottrell on 07-28-2022 Thin prep Papanicolaou smear with manual screening 51 U/L 15-37 [facility] Thin prep Papanicolaou smear with manual screeningOrdered By: Cong Marquez on 07-28-2022 Thin prep Papanicolaou smear with manual screening 10 5-15 [facility] Urine blood detectionOrdered By: Cong Marquez on 07-28-2022 RBC Ql (U) 10 /ul Negative [facility] RBC Ql (U) 0 SEEN /hpf 0-5 [facility] Urine clarityOrdered By: Erickson Marquez on 07-28-2022 Clarity (U) Cloudy Clear [facility] Urine color determinationOrd ered By: Cong Marquez on 07-28-2022 Color (U) Yellow Yellow [facility] Urine glucose detectionOrder ed By: Cong Marquez on 07-28-2022 Glucose Ql (U) Normal mg/dl Normal [facility] Urine leukocyte esterase det ection by dipstickOrdered By: Cong Marquez on 07-28-2022 Leukocyte esterase Test strip Ql (U) 25 /ul Negative [facility] Urine pHOrdered By: Cong south on 07-28-2022 pH (U) 6.0 [pH] 5.0 - 8.0 [facility] Urine sediment bacteria coun t by microscopy (number/high power field)Ordered By: Cong Marquez on 07-28-2022 Bacteria LM.HPF (Urine sed) [#/Area] 4 /[HPF] None Seen [facility] Urine specific gravity measu rementOrdered By: Cong Marquez on 07-28-2022 Specific gravity (U) [Rel density] 1.020 1.002-1.03 0 [facility] Urobilinogen Auto test strip Ql (U)Ordered By: Cong Marquez on 07-28-2022 Urobilinogen Ql (U) 1 mg/dl Normal [facility] Basophil percentageon 2021 Bilirubin [Mass/Vol] 0.60 mg/dL 0.20-1.00 [facility] Work Phone: Comment on above: For patients on eltr ombopag therapy, use of Dimension [place] TBIL is not recommended. Chloride [Moles/Vol] 100 mmol/L 98-107 [facility] Work Phone: Glucose [Mass/Vol] 99 mg/dL 74-106 [facility] Work Phone: Potassium [Moles/Vol] 3.0 mmol/L 3.5-5.1 [facility] Work Phone: Protein [Mass/Vol] 6.8 g/dL 6.4-8.2 [facility] Work Phone: Sodium [Moles/Vol] 140 mmol/L 136-145 [facility] Work Phone: Laboratory - Chemistry and C hemistry - challengeon 02-22-2022 ALP [Catalytic activity/Vol] 131 U/L 45-117 [facility] Work Phone: ALT [Catalytic activity/Vol] 100 U/L 13-56 [facility] Work Phone: CO2 [Moles/Vol] 34.0 mmol/L 21.0-32.0 [facility] Work Phone: Globulin (S) [Mass/Vol] 3.6 g/dL 2.2-4.2 [facility] Work Phone: Lipase [Catalytic activity/Vol] 1212 U/L 73-393 [facility] Work Phone: Magnesium [Mass/Vol] 1.9 mg/dL 1.6-2.6 [facility] Work Phone: Urea nitrogen/Creatinine [Mass ratio] 7.3 mg/mg 10-20 [facility] Work Phone: No Panel Informationon 02-22 Estimated Creatinine Clearance Calc 115.06 ml/min [facility] Work Phone: Estimated GFR (MDRD) Amer 156 mL/min >60 [facility] Work Phone: Comment on above: GFR Calc Estimated GFR (MDRD) Non-Af Amer 129 mL/min >60 [facility] Work Phone: Comment on above: Non- GFR Calc Serum or plasma albumin emma urement (mass/volume)on 02-22-2022 Albumin [Mass/Vol] 3.2 g/dL 3.2-5.0 [facility] Work Phone: Serum or plasma albumin/glob ulin mass ratioon 02-22-2022 Albumin/Globulin [Mass ratio] 0.9 {ratio} 0.9-2.4 [facility] Work Phone: Serum or plasma calcium emma urement (mass/volume)on 02-22-2022 Calcium [Mass/Vol] 9.2 mg/dL 8.5-10.1 [facility] Work Phone: Serum or plasma creatinine m easurement (mass/volume)on 02-22-2022 Creatinine [Mass/Vol] 0.55 mg/dL 0.55-1.02 [facility] Work Phone: Comment on above: The validity of the calculated GFR & GFRAA in patients over 70 years has not been determined. Clinical correlation is essential. Serum or plasma urea nitroge n measurement (mass/volume)on 02-22-2022 Urea nitrogen [Mass/Vol] 4 mg/dL 7-18 [facility] Work Phone: Thin prep Papanicolaou smear with manual screeningon 02-22-2022 Thin prep Papanicolaou smear with manual screening 126 U/L 15-37 [facility] Work Phone: [phone] Thin prep Papanicolaou smear with manual screening 6 5-15 [facility] Work Phone: Absolute lymphocyte counton 02-21-2022 Lymphocytes Auto (Unsp spec) [#/Vol] 1.20 10*3/uL 0.83-4.51 [facility] Work Phone: Basophil percentageon 2021 Basophil percentage 3.0 mg/dL 2.5-4.9 [facility]: [phone] Basophils/100 WBC (Bld) 0.4 % 0-1 [facility] Work Phone: Eosinophils/100 WBC (Bld) 3.4 % 0-5 [facility] Work Phone: Neutrophils (Bld) [#/Vol] 5.1 10*3/uL 2.0-7.7 [facility] Work Phone: Neutrophils/100 WBC (Bld) 71.5 % 47-70 [facility] Work Phone: WBC (Bld) [#/Vol] 7.1 10*3/uL 4.4-11.0 [facility]: Blood erythrocytes count (nu mber/volume)on 02-21-2022 RBC (Bld) [#/Vol] 3.96 10*6/uL 4.2-5.4 [facility] Work Phone: Blood hemoglobin measurement (mass/volume)on 02-21-2022 Hemoglobin (Bld) [Mass/Vol] 13.1 g/dL 12.0-15.0 [facility] Work Phone: Blood lymphocytes/100 leukoc yteson 02-21-2022 Lymphocytes/100 WBC (Bld) 16.8 % 19-41 [facility] Work Phone: Blood monocytes/100 leukocyt eson 02-21-2022 Monocytes/100 WBC (Bld) 7.6 % 0-10 [facility] Work Phone: Blood platelet mean volumeon 02-21-2022 Platelet mean volume (Bld) [Entitic vol] 10.3 fL 6.2-12.0 [facility] Work Phone: Determination of erythrocyte mean corpuscular volume (MCV)on 02-21-2022 MCV (RBC) [Entitic vol] 99.7 fL 81-99 [facility] Work Phone: Hematocrit Auto (Bld) [Volum e fraction]on 02-21-2022 Hematocrit (Bld) [Volume fraction] 39.5 % 37-47 [facility] Work Phone: Laboratory - Hematology and Cell countson 02-21-2022 Erythrocyte distribution width (RBC) [Entitic vol] 47.6 fL 35.1-43.9 [facility] Work Phone: Erythrocyte distribution width (RBC) [Ratio] 12.9 % 11.6-14.6 [facility] Work Phone: Immature granulocytes/100 WBC (Bld) 0.300 % 0.0-0.9 [facility] Work Phone: Comment on above: IG% - Immature Granu locytes (promyelocytes, myelocytes and metamyelocytes) > 1% indicates that a LEFT SHIFT is Present. MCH (RBC) [Entitic mass] 33.1 pg 27.0-32.0 [facility] Work Phone: Nucleated RBC/100 WBC (Bld) [Ratio] 0 % 0-5 [facility] Work Phone: MCHC Auto (RBC) [Mass/Vol]on 02-21-2022 MCHC (RBC) [Mass/Vol] 33.2 g/dL 32-36 [facility] Work Phone: [phone] Platelets bldon 02-21-2022 Platelets (Bld) [#/Vol] 211 10*3/uL 150-450 [facility] Work Phone: Beta hCG serum qualon 2021 Beta HCG ( test) Ql Negative [facility] Work Phone: Direct bilirubinon 2 Bilirubin.direct [Mass/Vol] 0.23 mg/dL 0.00-0.30 [facility] Work Phone: Absolute lymphocyte counton 01-04-2022 Lymphocytes Auto (Unsp spec) [#/Vol] 2.33 10*3/uL 0.83-4.51 [facility] Work Phone: Basophil percentageon 2021 Basophils/100 WBC (Bld) 0.6 % 0-1 [facility] Work Phone: [phone] Bilirubin [Mass/Vol] 0.40 mg/dL 0.20-1.00 [facility] Work Phone: Comment on above: For patients on eltr ombopag therapy, use of Dimension [place] TBIL is not recommended. Chloride [Moles/Vol] 107 mmol/L 98-107 [facility] Work Phone: Eosinophils/100 WBC (Bld) 2.2 % 0-5 [facility] Work Phone: Glucose [Mass/Vol] 108 mg/dL 74-106 [facility] Work Phone: Comment on above: Fasting Glucose resu lt from 100 to 125 mg/dL suggests IMPAIRED HOMEOSTASIS per A.D.A. criteria. Neutrophils (Bld) [#/Vol] 8.7 10*3/uL 2.0-7.7 [facility] Work Phone: Neutrophils/100 WBC (Bld) 70.6 % 47-70 [facility] Work Phone: Potassium [Moles/Vol] 3.3 mmol/L 3.5-5.1 [facility] Work Phone: Protein [Mass/Vol] 7.3 g/dL 6.4-8.2 [facility] Work Phone: Sodium [Moles/Vol] 142 mmol/L 136-145 [facility] Work Phone: WBC (Bld) [#/Vol] 12.3 10*3/uL 4.4-11.0 [facility] Work Phone: Blood erythrocytes count (nu mber/volume)on 01-04-2022 RBC (Bld) [#/Vol] 4.49 10*6/uL 4.2-5.4 [facility] Work Phone: Blood hemoglobin measurement (mass/volume)on 01-04-2022 Hemoglobin (Bld) [Mass/Vol] 14.8 g/dL 12.0-15.0 [facility] Work Phone: Blood lymphocytes/100 leukoc yteson 01-04-2022 Lymphocytes/100 WBC (Bld) 19.0 % 19-41 [facility] Work Phone: Blood monocytes/100 leukocyt eson 01-04-2022 Monocytes/100 WBC (Bld) 7.1 % 0-10 [facility] Work Phone: Blood platelet mean volumeon 01-04-2022 Platelet mean volume (Bld) [Entitic vol] 10.2 fL 6.2-12.0 [facility] Work Phone: Determination of erythrocyte mean corpuscular volume (MCV)on 01-04-2022 MCV (RBC) [Entitic vol] 94.4 fL 81-99 [facility] Work Phone: Direct bilirubinon 2 Bilirubin.direct [Mass/Vol] 0.20 mg/dL 0.00-0.30 [facility] Work Phone: Hematocrit Auto (Bld) [Volum e fraction]on 01-04-2022 Hematocrit (Bld) [Volume fraction] 42.4 % 37-47 [facility] Work Phone: Laboratory - Chemistry and C hemistry - challengeon 01-04-2022 ALP [Catalytic activity/Vol] 188 U/L 45-117 [facility] Work Phone: ALT [Catalytic activity/Vol] 99 U/L 13-56 [facility] Work Phone: CO2 [Moles/Vol] 25.0 mmol/L 21.0-32.0 [facility] Work Phone: Globulin (S) [Mass/Vol] 3.8 g/dL 2.2-4.2 [facility] Work Phone: Lipase [Catalytic activity/Vol] 334 U/L 73-393 [facility] Work Phone: Urea nitrogen/Creatinine [Mass ratio] 19.3 mg/mg 10-20 [facility] Work Phone: Laboratory - Hematology and Cell countson 01-04-2022 Erythrocyte distribution width (RBC) [Entitic vol] 44.1 fL 35.1-43.9 [facility] Work Phone: Erythrocyte distribution width (RBC) [Ratio] 12.8 % 11.6-14.6 [facility] Work Phone: Immature granulocytes/100 WBC (Bld) 0.500 % 0.0-0.9 [facility] Work Phone: Comment on above: IG% - Immature Granu locytes (promyelocytes, myelocytes and metamyelocytes) > 1% indicates that a LEFT SHIFT is Present. MCH (RBC) [Entitic mass] 33.0 pg 27.0-32.0 [facility] Work Phone: Nucleated RBC/100 WBC (Bld) [Ratio] 0 % 0-5 [facility] Work Phone: MCHC Auto (RBC) [Mass/Vol]on 01-04-2022 MCHC (RBC) [Mass/Vol] 34.9 g/dL 32-36 [facility] Work Phone: No Panel Informationon 01-04 Estimated Creatinine Clearance Calc 94.46 ml/min [facility] Work Phone: Estimated GFR (MDRD) Amer 123 mL/min >60 [facility] Work Phone: Comment on above: GFR Calc Estimated GFR (MDRD) Non-Af Amer 102 mL/min >60 [facility] Work Phone: Comment on above: Non- GFR Calc Ethyl Alcohol Level 66.0 mg/dL [facility] Work Phone: Comment on above: The serum:whole bloo d ethanol ratio is approximately 1.14and varies slightly with hematocrit. Medical Alcohol reference interval and critical value innon-tolerant individuals; 50 - 100 Impairment 100 Intoxication 100 - 250 Severe Poisoning 250 - 400 Deep/possible fatal coma Platelets bldon 01-04-2022 Platelets (Bld) [#/Vol] 442 10*3/uL 150-450 [facility] Work Phone: Serum or plasma albumin emma urement (mass/volume)on 01-04-2022 Albumin [Mass/Vol] 3.5 g/dL 3.2-5.0 [facility] Work Phone: Serum or plasma calcium emma urement (mass/volume)on 01-04-2022 Calcium [Mass/Vol] 9.7 mg/dL 8.5-10.1 [facility] Work Phone: Serum or plasma creatinine m easurement (mass/volume)on 01-04-2022 Creatinine [Mass/Vol] 0.67 mg/dL 0.55-1.02 [facility] Work Phone: Comment on above: The validity of the calculated GFR & GFRAA in patients over 70 years has not been determined. Clinical correlation is essential. Serum or plasma urea nitroge n measurement (mass/volume)on 01-04-2022 Urea nitrogen [Mass/Vol] 13 mg/dL 7-18 [facility] Work Phone: Thin prep Papanicolaou smear with manual screeningon 01-04-2022 Thin prep Papanicolaou smear with manual screening 223 U/L 15-37 [facility] Work Phone: Thin prep Papanicolaou smear with manual screening 10 5-15 [facility] Work Phone: Basophil percentageon 2021 Bilirubin [Mass/Vol] 0.60 mg/dL 0.20-1.00 [facility] Work Phone: Comment on above: For patients on eltr ombopag therapy, use of Dimension [place] TBIL is not recommended. Chloride [Moles/Vol] 99 mmol/L 98-107 [facility] Work Phone: Glucose [Mass/Vol] 106 mg/dL 74-106 [facility] Work Phone: Comment on above: Fasting Glucose resu lt from 100 to 125 mg/dL suggests IMPAIRED HOMEOSTASIS per A.D.A. criteria. Potassium [Moles/Vol] 3.5 mmol/L 3.5-5.1 [facility] Work Phone: Protein [Mass/Vol] 6.7 g/dL 6.4-8.2 [facility] Work Phone: Sodium [Moles/Vol] 135 mmol/L 136-145 [facility] Work Phone: Laboratory - Chemistry and C hemistry - challengeon 12-16-2021 ALP [Catalytic activity/Vol] 300 U/L 45-117 [facility] Work Phone: ALT [Catalytic activity/Vol] 484 U/L 13-56 [facility] Work Phone: CO2 [Moles/Vol] 32.0 mmol/L 21.0-32.0 [facility] Work Phone: Globulin (S) [Mass/Vol] 3.7 g/dL 2.2-4.2 [facility] Work Phone: Urea nitrogen/Creatinine [Mass ratio] 9.8 mg/mg 10-20 [facility] Work Phone: No Panel Informationon 12-16 Estimated Creatinine Clearance Calc 103.75 ml/min [facility] Work Phone: Estimated GFR (MDRD) Amer 138 mL/min >60 [facility] Work Phone: Comment on above: GFR Calc Estimated GFR (MDRD) Non-Af Amer 114 mL/min >60 [facility] Work Phone: Comment on above: Non- GFR Calc Serum or plasma albumin emma urement (mass/volume)on 12-16-2021 Albumin [Mass/Vol] 3.0 g/dL 3.2-5.0 [facility] Work Phone: Serum or plasma albumin/glob ulin mass ratioon 12-16-2021 Albumin/Globulin [Mass ratio] 0.8 {ratio} 0.9-2.4 [facility] Work Phone: Serum or plasma calcium emma urement (mass/volume)on 12-16-2021 Calcium [Mass/Vol] 9.2 mg/dL 8.5-10.1 [facility] Work Phone: Serum or plasma creatinine m easurement (mass/volume)on 12-16-2021 Creatinine [Mass/Vol] 0.61 mg/dL 0.55-1.02 [facility] Work Phone: Comment on above: The validity of the calculated GFR & GFRAA in patients over 70 years has not been determined. Clinical correlation is essential. Serum or plasma urea nitroge n measurement (mass/volume)on 12-16-2021 Urea nitrogen [Mass/Vol] 6 mg/dL 7-18 [facility] Work Phone: Thin prep Papanicolaou smear with manual screeningon 12-16-2021 Thin prep Papanicolaou smear with manual screening 701 U/L 15-37 [facility] Work Phone: Thin prep Papanicolaou smear with manual screening 4 5-15 [facility] Work Phone: [phone] Absolute lymphocyte counton 12-14-2021 Lymphocytes Auto (Unsp spec) [#/Vol] 1.28 10*3/uL 0.83-4.51 [facility] Work Phone: Basophil percentageon 2021 Basophils/100 WBC (Bld) 0.5 % 0-1 [facility] Work Phone: Eosinophils/100 WBC (Bld) 3.1 % 0-5 [facility] Work Phone: [phone] Neutrophils (Bld) [#/Vol] 3.7 10*3/uL 2.0-7.7 [facility] Work Phone: Neutrophils/100 WBC (Bld) 63.9 % 47-70 [facility] Work Phone: WBC (Bld) [#/Vol] 5.8 10*3/uL 4.4-11.0 [facility] Work Phone: Blood erythrocytes count (nu mber/volume)on 12-14-2021 RBC (Bld) [#/Vol] 4.02 10*6/uL 4.2-5.4 [facility] Work Phone: Blood hemoglobin measurement (mass/volume)on 12-14-2021 Hemoglobin (Bld) [Mass/Vol] 13.5 g/dL 12.0-15.0 [facility] Work Phone: Blood lymphocytes/100 leukoc yteson 12-14-2021 Lymphocytes/100 WBC (Bld) 22.2 % 19-41 [facility] Work Phone: Blood monocytes/100 leukocyt eson 12-14-2021 Monocytes/100 WBC (Bld) 10.1 % 0-10 [facility] Work Phone: Blood platelet mean volumeon 12-14-2021 Platelet mean volume (Bld) [Entitic vol] 10.6 fL 6.2-12.0 [facility] Work Phone: Determination of erythrocyte mean corpuscular volume (MCV)on 12-14-2021 MCV (RBC) [Entitic vol] 96.0 fL 81-99 [facility] Work Phone: Direct bilirubinon 2 Bilirubin.direct [Mass/Vol] 0.26 mg/dL 0.00-0.30 [facility] Work Phone: Hematocrit Auto (Bld) [Volum e fraction]on 12-14-2021 Hematocrit (Bld) [Volume fraction] 38.6 % 37-47 [facility] Work Phone: Laboratory - Chemistry and C hemistry - challengeon 12-14-2021 Magnesium [Mass/Vol] 1.6 mg/dL 1.6-2.6 [facility] Work Phone: Laboratory - Hematology and Cell countson 12-14-2021 Erythrocyte distribution width (RBC) [Entitic vol] 47.2 fL 35.1-43.9 [facility] Work Phone: Erythrocyte distribution width (RBC) [Ratio] 13.2 % 11.6-14.6 [facility] Work Phone: Immature granulocytes/100 WBC (Bld) 0.200 % 0.0-0.9 [facility] Work Phone: Comment on above: IG% - Immature Granu locytes (promyelocytes, myelocytes and metamyelocytes) > 1% indicates that a LEFT SHIFT is Present. MCH (RBC) [Entitic mass] 33.6 pg 27.0-32.0 [facility] Work Phone: Nucleated RBC/100 WBC (Bld) [Ratio] 0 % 0-5 [facility] Work Phone: MCHC Auto (RBC) [Mass/Vol]on 12-14-2021 MCHC (RBC) [Mass/Vol] 35.0 g/dL 32-36 [facility] Work Phone: Platelets bldon 12-14-2021 Platelets (Bld) [#/Vol] 206 10*3/uL 150-450 [facility] Work Phone: Absolute lymphocyte counton 12-13-2021 Lymphocytes Auto (Unsp spec) [#/Vol] 1.36 10*3/uL 0.83-4.51 [facility] Work Phone: Basophil percentageon 2021 Basophil percentage 0-5 SEEN /hpf 0-5 [facility] Work Phone: Basophils/100 WBC (Bld) 0.6 % 0-1 [facility] Work Phone: Bilirubin [Mass/Vol] 2.80 mg/dL 0.20-1.00 [facility] Work Phone: Comment on above: For patients on eltr ombopag therapy, use of Dimension [place] TBIL is not recommended. Chloride [Moles/Vol] 92 mmol/L 98-107 [facility] Work Phone: Eosinophils/100 WBC (Bld) 1.4 % 0-5 [facility] Work Phone: Glucose [Mass/Vol] 94 mg/dL 74-106 [facility] Work Phone: Neutrophils (Bld) [#/Vol] 6.5 10*3/uL 2.0-7.7 [facility] Work Phone: Neutrophils/100 WBC (Bld) 73.3 % 47-70 [facility] Work Phone: Potassium [Moles/Vol] 2.6 mmol/L 3.5-5.1 [facility] Work Phone: Comment on above: Critical Result(s) C alled at: 16:21:32 12/13/2021 by: Ulysses Disla to Taya Whiting RN (ER). Results read back by same. Protein [Mass/Vol] 8.2 g/dL 6.4-8.2 [facility] Work Phone: Sodium [Moles/Vol] 135 mmol/L 136-145 [facility] Work Phone: WBC (Bld) [#/Vol] 8.8 10*3/uL 4.4-11.0 [facility] Work Phone: Beta hCG serum qualon 2021 Beta HCG ( test) Ql Negative [facility] Work Phone: Bilirubin Test strip Ql (U)o n 12-13-2021 Bilirubin Ql (U) 3 mg/dL Negative [facility] Work Phone: Comment on above: COLOR OF URINE MAY A FFECT DIPSTICK RESULTS. Blood erythrocytes count (nu mber/volume)on 12-13-2021 RBC (Bld) [#/Vol] 4.66 10*6/uL 4.2-5.4 [facility] Work Phone: Blood hemoglobin measurement (mass/volume)on 12-13-2021 Hemoglobin (Bld) [Mass/Vol] 15.3 g/dL 12.0-15.0 [facility] Work Phone: Blood lymphocytes/100 leukoc yteson 12-13-2021 Lymphocytes/100 WBC (Bld) 15.4 % 19-41 [facility] Work Phone: Blood monocytes/100 leukocyt eson 12-13-2021 Monocytes/100 WBC (Bld) 8.8 % 0-10 [facility] Work Phone: Blood platelet mean volumeon 12-13-2021 Platelet mean volume (Bld) [Entitic vol] 10.0 fL 6.2-12.0 [facility] Work Phone: Determination of erythrocyte mean corpuscular volume (MCV)on 12-13-2021 MCV (RBC) [Entitic vol] 93.8 fL 81-99 [facility] Work Phone: Direct bilirubinon 2 Bilirubin.direct [Mass/Vol] 1.84 mg/dL 0.00-0.30 [facility] Work Phone: Hematocrit Auto (Bld) [Volum e fraction]on 12-13-2021 Hematocrit (Bld) [Volume fraction] 43.7 % 37-47 [facility] Work Phone: Ketones Test strip Ql (U)on 12-13-2021 Ketones Ql (U) 50 mg/dl Negative [facility] Work Phone: Laboratory - Chemistry and C hemistry - challengeon 12-13-2021 ALP [Catalytic activity/Vol] 305 U/L 45-117 [facility] Work Phone: ALT [Catalytic activity/Vol] 208 U/L 13-56 [facility] Work Phone: CO2 [Moles/Vol] 30.0 mmol/L 21.0-32.0 [facility] Work Phone: Globulin (S) [Mass/Vol] 4.3 g/dL 2.2-4.2 [facility] Work Phone: Lipase [Catalytic activity/Vol] 6185 U/L 73-393 [facility] Work Phone: Magnesium [Mass/Vol] 1.8 mg/dL 1.6-2.6 [facility] Work Phone: Urea nitrogen/Creatinine [Mass ratio] 11.7 mg/mg 10-20 [facility] Work Phone: Laboratory - Drug toxicology on 12-13-2021 Amphetamines Ql (U) Positive <1000 ng/mL [facility] Work Phone: Benzodiazepines Ql (U) Negative < 200 ng/mL [facility] Work Phone: Cannabinoids Screen Ql (U) Negative < 50 ng/mL [facility] Work Phone: Cocaine Ql (U) Negative < 300 ng/mL [facility] Work Phone: Opiates Ql (U) Negative < 300 ng/mL [facility] Work Phone: Laboratory - Hematology and Cell countson 12-13-2021 Erythrocyte distribution width (RBC) [Entitic vol] 44.4 fL 35.1-43.9 [facility] Work Phone: Erythrocyte distribution width (RBC) [Ratio] 13.0 % 11.6-14.6 [facility] Work Phone: Immature granulocytes/100 WBC (Bld) 0.500 % 0.0-0.9 [facility] Work Phone: Comment on above: IG% - Immature Granu locytes (promyelocytes, myelocytes and metamyelocytes) > 1% indicates that a LEFT SHIFT is Present. MCH (RBC) [Entitic mass] 32.8 pg 27.0-32.0 [facility] Work Phone: Nucleated RBC/100 WBC (Bld) [Ratio] 0 % 0-5 [facility] Work Phone: MCHC Auto (RBC) [Mass/Vol]on 12-13-2021 MCHC (RBC) [Mass/Vol] 35.0 g/dL 32-36 [facility] Work Phone: Mucus LM Ql (Urine sed)on Mucus Ql (Urine sed) 0 SEEN /hpf [facility] Work Phone: Nitrite Test strip Ql (U)on 12-13-2021 Nitrite Ql (U) Positive Negative [facility] Work Phone: No Panel Informationon 12-13 MDMA (Ecstasy) Screen Negative < 500 ng/mL [facility] Work Phone: Urine Barbiturates Screen Negative < 200 ng/mL [facility] Work Phone: Urine Drug Screen Comment [facility] Work Phone: Comment on above: CONFIRMATORY [...] Urine Methadone Screen Negative < 300 ng/mL [facility] Work Phone: Estimated Creatinine Clearance Calc 91.72 ml/min [facility] Work Phone: Estimated GFR (MDRD) Amer 121 mL/min >60 [facility] Work Phone: Comment on above: GFR Calc Estimated GFR (MDRD) Non-Af Amer 100 mL/min >60 [facility] Work Phone: Comment on above: Non- GFR Calc Ethyl Alcohol Level 51.0 mg/dL [facility] Work Phone: Comment on above: The serum:whole bloo d ethanol ratio is approximately 1.14and varies slightly with hematocrit. Medical Alcohol reference interval and critical value innon-tolerant individuals; 50 - 100 Impairment 100 Intoxication 100 - 250 Severe Poisoning 250 - 400 Deep/possible fatal coma Troponin I High Sensitivity 9 pg/mL 3.0-54.0 [facility] Work Phone: Comment on above: Please Note: New Lydia t Units and Gender Specific Reference Ranges. For more information see Policy Stat Procedure [place] High Sensitivity Troponin (TNIH) and attachments. Platelets bldon 12-13-2021 Platelets (Bld) [#/Vol] 266 10*3/uL 150-450 [facility] Work Phone: Protein Test strip Ql (U)on 12-13-2021 Protein Ql (U) 100 mg/dl Negative [facility] Work Phone: Serum or plasma albumin emma urement (mass/volume)on 12-13-2021 Albumin [Mass/Vol] 3.9 g/dL 3.2-5.0 [facility] Work Phone: Serum or plasma calcium emma urement (mass/volume)on 12-13-2021 Calcium [Mass/Vol] 10.1 mg/dL 8.5-10.1 [facility] Work Phone: Serum or plasma creatinine m easurement (mass/volume)on 12-13-2021 Creatinine [Mass/Vol] 0.69 mg/dL 0.55-1.02 [facility] Work Phone: Comment on above: The validity of the calculated GFR & GFRAA in patients over 70 years has not been determined. Clinical correlation is essential. Serum or plasma urea nitroge n measurement (mass/volume)on 12-13-2021 Urea nitrogen [Mass/Vol] 8 mg/dL 7-18 [facility] Work Phone: Squamous epithelial cells de tection in urine sediment by light microscopyon 12-13-2021 Epithelial cells.squamous LM Ql (Urine sed) 5-10 SEEN /hpf 5-10 [facility] Work Phone: Thin prep Papanicolaou smear with manual screeningon 12-13-2021 Thin prep Papanicolaou smear with manual screening 668 U/L 15-37 [facility] Work Phone: Thin prep Papanicolaou smear with manual screening 13 5-15 [facility] Work Phone: Urine blood detectionon 12-03 RBC Ql (U) 25 /ul Negative [facility] Work Phone: RBC Ql (U) 0-5 SEEN /hpf 0-5 [facility] Work Phone: Urine clarityon 12-13-2021 Clarity (U) Cloudy Clear [facility] Work Phone: Urine color determinationon 12-13-2021 Color (U) Yellow Yellow [facility] Work Phone: Urine glucose detectionon Glucose Ql (U) Normal mg/dl Normal [facility] Work Phone: Urine leukocyte esterase det ection by dipstickon 12-13-2021 Leukocyte esterase Test strip Ql (U) 25 /ul Negative [facility] Work Phone: Urine pHon 12-13-2021 pH (U) 7.0 [pH] 5.0 - 8.0 [facility] Work Phone: Urine phencyclidine (PCP) de tectionon 12-13-2021 Phencyclidine Ql (U) Negative < 25 ng/mL [facility] Work Phone: Urine sediment bacteria coun t by microscopy (number/high power field)on 12-13-2021 Bacteria LM.HPF (Urine sed) [#/Area] 4 /[HPF] None Seen [facility] Work Phone: Urine specific gravity measu rementon 12-13-2021 Specific gravity (U) [Rel density] 1.015 1.002-1.03 0 [facility] Work Phone: Urobilinogen Auto test strip Ql (U)on 12-13-2021 Urobilinogen Ql (U) 8 mg/dl Normal [facility] Work Phone: Basophil percentageon 2021 Bilirubin [Mass/Vol] 0.60 mg/dL 0.20-1.00 [facility] Work Phone: Comment on above: For patients on eltr ombopag therapy, use of Dimension [place] TBIL is not recommended. Chloride [Moles/Vol] 100 mmol/L 98-107 [facility] Work Phone: Glucose [Mass/Vol] 97 mg/dL 74-106 [facility] Work Phone: Potassium [Moles/Vol] 3.1 mmol/L 3.5-5.1 [facility] Work Phone: Protein [Mass/Vol] 6.3 g/dL 6.4-8.2 [facility] Work Phone: Sodium [Moles/Vol] 134 mmol/L 136-145 [facility] Work Phone: Laboratory - Chemistry and C hemistry - challengeon 08-25-2021 ALP [Catalytic activity/Vol] 84 U/L 45-117 [facility] Work Phone: ALT [Catalytic activity/Vol] 38 U/L 13-56 [facility] Work Phone: CO2 [Moles/Vol] 31.0 mmol/L 21.0-32.0 [facility] Work Phone: Globulin (S) [Mass/Vol] 3.5 g/dL 2.2-4.2 [facility] Work Phone: Urea nitrogen/Creatinine [Mass ratio] 7.9 mg/mg 10-20 [facility] Work Phone: No Panel Informationon 08-25 Estimated Creatinine Clearance Calc 126.57 ml/min [facility] Work Phone: Estimated GFR (MDRD) Amer 172 mL/min >60 [facility] Work Phone: Comment on above: GFR Calc Estimated GFR (MDRD) Non-Af Amer 142 mL/min >60 [facility] Work Phone: Comment on above: Non- GFR Calc Serum or plasma albumin emma urement (mass/volume)on 08-25-2021 Albumin [Mass/Vol] 2.8 g/dL 3.2-5.0 [facility] Work Phone: Serum or plasma albumin/glob ulin mass ratioon 08-25-2021 Albumin/Globulin [Mass ratio] 0.8 {ratio} 0.9-2.4 [facility] Work Phone: Serum or plasma calcium emma urement (mass/volume)on 08-25-2021 Calcium [Mass/Vol] 8.4 mg/dL 8.5-10.1 [facility] Work Phone: Serum or plasma creatinine m easurement (mass/volume)on 08-25-2021 Creatinine [Mass/Vol] 0.50 mg/dL 0.55-1.02 [facility] Work Phone: Comment on above: The validity of the calculated GFR & GFRAA in patients over 70 years has not been determined. Clinical correlation is essential. Serum or plasma urea nitroge n measurement (mass/volume)on 08-25-2021 Urea nitrogen [Mass/Vol] 4 mg/dL 7-18 [facility] Work Phone: Thin prep Papanicolaou smear with manual screeningon 08-25-2021 Thin prep Papanicolaou smear with manual screening 29 U/L 15-37 [facility] Work Phone: Thin prep Papanicolaou smear with manual screening 3 5-15 [facility] Work Phone: [phone] Absolute lymphocyte counton 08-24-2021 Lymphocytes Auto (Unsp spec) [#/Vol] 1.29 10*3/uL 0.83-4.51 [facility] Work Phone: Basophil percentageon 2021 Basophils/100 WBC (Bld) 0.4 % 0-1 [facility] Work Phone: [phone] Eosinophils/100 WBC (Bld) 2.8 % 0-5 [facility] Work Phone: [phone] Neutrophils (Bld) [#/Vol] 7.6 10*3/uL 2.0-7.7 [facility] Work Phone: [phone] Neutrophils/100 WBC (Bld) 76.1 % 47-70 [facility] Work Phone: WBC (Bld) [#/Vol] 9.9 10*3/uL 4.4-11.0 [facility] Work Phone: Blood erythrocytes count (nu mber/volume)on 08-24-2021 RBC (Bld) [#/Vol] 4.12 10*6/uL 4.2-5.4 [facility] [facility] Work Phone: Blood hemoglobin measurement (mass/volume)on 08-24-2021 Hemoglobin (Bld) [Mass/Vol] 13.7 g/dL 12.0-15.0 [facility] Work Phone: Blood lymphocytes/100 leukoc yteson 08-24-2021 Lymphocytes/100 WBC (Bld) 13.0 % 19-41 [facility] Work Phone: Blood monocytes/100 leukocyt eson 08-24-2021 Monocytes/100 WBC (Bld) 7.4 % 0-10 [facility] Work Phone: Blood platelet mean volumeon 08-24-2021 Platelet mean volume (Bld) [Entitic vol] 10.4 fL 6.2-12.0 [facility] Work Phone: Determination of erythrocyte mean corpuscular volume (MCV)on 08-24-2021 MCV (RBC) [Entitic vol] 98.1 fL 81-99 [facility] Work Phone: Hematocrit Auto (Bld) [Volum e fraction]on 08-24-2021 Hematocrit (Bld) [Volume fraction] 40.4 % 37-47 [facility] Work Phone: Laboratory - Chemistry and C hemistry - challengeon 08-24-2021 Magnesium [Mass/Vol] 1.9 mg/dL 1.6-2.6 [facility] Work Phone: Laboratory - Hematology and Cell countson 08-24-2021 Erythrocyte distribution width (RBC) [Entitic vol] 45.5 fL 35.1-43.9 [facility] Work Phone: Erythrocyte distribution width (RBC) [Ratio] 12.7 % 11.6-14.6 [facility] Work Phone: Immature granulocytes/100 WBC (Bld) 0.300 % 0.0-0.9 [facility] Work Phone: Comment on above: IG% - Immature Granu locytes (promyelocytes, myelocytes and metamyelocytes) > 1% indicates that a LEFT SHIFT is Present. MCH (RBC) [Entitic mass] 33.3 pg 27.0-32.0 [facility] Work Phone: Nucleated RBC/100 WBC (Bld) [Ratio] 0 % 0-5 [facility] Work Phone: MCHC Auto (RBC) [Mass/Vol]on 08-24-2021 MCHC (RBC) [Mass/Vol] 33.9 g/dL 32-36 [facility] Work Phone: Platelets bldon 08-24-2021 Platelets (Bld) [#/Vol] 228 10*3/uL 150-450 [facility] Work Phone: Basophil percentageon 2021 Cholesterol [Mass/Vol] 225 mg/dL <200 [facility] Work Phone: Comment on above: <200 mg/dL Desirable 200-240 mg/dL Borderline >240 mg/dL High Risk Triglyceride [Mass/Vol] 104 mg/dL <199 [facility] Work Phone: Comment on above: The drugs N-Acetylcy steine and Metamizole may falsely depress this assay.Serum Triglycerides Reference Interval Normal <150 mg/dL Borderline high 150 - 199 mg/dL High 200 - 499 mg/dL Very High > or = 500 mg/dL Serum or plasma cholesterol in HDL measurement (mass/volume)on 08-23-2021 Cholesterol in HDL [Mass/Vol] 65 mg/dL >40 [facility] Work Phone: Comment on above: The drugs N-Acetylcy steine and Metamizole may falsely depress this assay. Reference Range HDL <40 mg/dL Low HDL Cholesterol HDL >or= 60 mg/dL High HDL Cholesterol Serum or plasma cholesterol in VLDL measurement (mass/volume)on 08-23-2021 Cholesterol in VLDL [Mass/Vol] 21 mg/dL 5-40 [facility] Work Phone: Serum or plasma low density lipoprotein (LDL) cholesterol measurement (mass/volume)on 08-23-2021 Cholesterol in LDL [Mass/Vol] 139 mg/dL 0-130 [facility] Work Phone: Absolute lymphocyte counton 08-22-2021 Lymphocytes Auto (Unsp spec) [#/Vol] 1.01 10*3/uL 0.83-4.51 [facility] Work Phone: [phone] Basophil percentageon 2021 Basophil percentage 0-5 SEEN /hpf 0-[address] [facility] Work Phone: Basophils/100 WBC (Bld) 0.3 % 0-1 [facility] Work Phone: Bilirubin [Mass/Vol] 0.50 mg/dL 0.20-1.00 [facility] Work Phone: Comment on above: For patients on eltr ombopag therapy, use of Dimension [place] TBIL is not recommended. Chloride [Moles/Vol] 103 mmol/L 98-107 [facility] Work Phone: Eosinophils/100 WBC (Bld) 0.1 % 0-5 [facility] Work Phone: Glucose [Mass/Vol] 132 mg/dL 74-106 [facility] Work Phone: Comment on above: Fasting Glucose resu lt greater than or equal to 126 mg/dL suggests DIABETES MELLITUS per A.D.A. criteria. Neutrophils (Bld) [#/Vol] 12.9 10*3/uL 2.0-7.7 [facility] Work Phone: Neutrophils/100 WBC (Bld) 87.4 % 47-70 [facility] Work Phone: Potassium [Moles/Vol] 3.1 mmol/L 3.5-5.1 [facility] Work Phone: Protein [Mass/Vol] 7.8 g/dL 6.4-8.2 [facility] Work Phone: Sodium [Moles/Vol] 140 mmol/L 136-145 [facility] Work Phone: WBC (Bld) [#/Vol] 14.7 10*3/uL 4.4-11.0 [facility] Work Phone: Beta hCG serum qualon 03-20- 2022 Beta HCG ( test) Ql Negative [facility] Work Phone: Bilirubin Test strip Ql (U)o n 08-22-2021 Bilirubin Ql (U) Negative Negative [facility] Work Phone: Blood erythrocytes count (nu mber/volume)on 08-22-2021 RBC (Bld) [#/Vol] 4.73 10*6/uL 4.2-5.4 [facility] Work Phone: Blood hemoglobin measurement (mass/volume)on 08-22-2021 Hemoglobin (Bld) [Mass/Vol] 16.3 g/dL 12.0-15.0 [facility] Work Phone: Blood lymphocytes/100 leukoc yteson 08-22-2021 Lymphocytes/100 WBC (Bld) 6.9 % 19-41 [facility] Work Phone: Blood monocytes/100 leukocyt eson 08-22-2021 Monocytes/100 WBC (Bld) 4.8 % 0-10 [facility] Work Phone: Blood platelet mean volumeon 08-22-2021 Platelet mean volume (Bld) [Entitic vol] 9.8 fL 6.2-12.0 [facility] Work Phone: Determination of erythrocyte mean corpuscular volume (MCV)on 08-22-2021 MCV (RBC) [Entitic vol] 98.5 fL 81-99 [facility] Work Phone: Hematocrit Auto (Bld) [Volum e fraction]on 08-22-2021 Hematocrit (Bld) [Volume fraction] 46.6 % 37-47 [facility] Work Phone: Ketones Test strip Ql (U)on 08-22-2021 Ketones Ql (U) 5 mg/dl Negative [facility] Work Phone: Laboratory - Chemistry and C hemistry - challengeon 08-22-2021 ALP [Catalytic activity/Vol] 102 U/L 45-117 [facility] Work Phone: ALT [Catalytic activity/Vol] 108 U/L 13-56 [facility] Work Phone: CO2 [Moles/Vol] 28.0 mmol/L 21.0-32.0 [facility] Work Phone: Globulin (S) [Mass/Vol] 3.9 g/dL 2.2-4.2 [facility] Work Phone: Lipase [Catalytic activity/Vol] 5000 U/L 73-393 [facility] Work Phone: Urea nitrogen/Creatinine [Mass ratio] 12.4 mg/mg 10-20 [facility] Work Phone: Laboratory - Hematology and Cell countson 08-22-2021 Erythrocyte distribution width (RBC) [Entitic vol] 46.8 fL 35.1-43.9 [facility] Work Phone: Erythrocyte distribution width (RBC) [Ratio] 12.8 % 11.6-14.6 [facility] Work Phone: Immature granulocytes/100 WBC (Bld) 0.500 % 0.0-0.9 [facility] Work Phone: Comment on above: IG% - Immature Granu locytes (promyelocytes, myelocytes and metamyelocytes) > 1% indicates that a LEFT SHIFT is Present. MCH (RBC) [Entitic mass] 34.5 pg 27.0-32.0 [facility] Work Phone: Nucleated RBC/100 WBC (Bld) [Ratio] 0 % 0-5 [facility] Work Phone: MCHC Auto (RBC) [Mass/Vol]on 08-22-2021 MCHC (RBC) [Mass/Vol] 35.0 g/dL 32-36 [facility] Work Phone: Mucus LM Ql (Urine sed)on Mucus Ql (Urine sed) RARE /hpf [facility] Work Phone: Nitrite Test strip Ql (U)on 08-22-2021 Nitrite Ql (U) Negative Negative [facility] Work Phone: No Panel Informationon 08-22 Estimated Creatinine Clearance Calc 86.69 ml/min [facility] Work Phone: Estimated GFR (MDRD) Amer 113 mL/min >60 [facility] Work Phone: Comment on above: GFR Calc Estimated GFR (MDRD) Non-Af Amer 93 mL/min >60 [facility] Work Phone: Comment on above: Non- GFR Calc Platelets bldon 08-22-2021 Platelets (Bld) [#/Vol] 381 10*3/uL 150-450 [facility] Work Phone: Protein Test strip Ql (U)on 08-22-2021 Protein Ql (U) 100 mg/dl Negative [facility] Work Phone: Serum or plasma albumin emma urement (mass/volume)on 08-22-2021 Albumin [Mass/Vol] 3.9 g/dL 3.2-5.0 [facility] Work Phone: Serum or plasma albumin/glob ulin mass ratioon 08-22-2021 Albumin/Globulin [Mass ratio] 1.0 {ratio} 0.9-2.4 [facility] Work Phone: Serum or plasma calcium emma urement (mass/volume)on 08-22-2021 Calcium [Mass/Vol] 9.5 mg/dL 8.5-10.1 [facility] Work Phone: Serum or plasma creatinine m easurement (mass/volume)on 08-22-2021 Creatinine [Mass/Vol] 0.73 mg/dL 0.55-1.02 [facility] Work Phone: Comment on above: The validity of the calculated GFR & GFRAA in patients over 70 years has not been determined. Clinical correlation is essential. Serum or plasma urea nitroge n measurement (mass/volume)on 08-22-2021 Urea nitrogen [Mass/Vol] 9 mg/dL 7-18 [facility] Work Phone: Squamous epithelial cells de tection in urine sediment by light microscopyon 08-22-2021 Epithelial cells.squamous LM Ql (Urine sed) 5-10 SEEN /hpf 5-10 [facility] Work Phone: Thin prep Papanicolaou smear with manual screeningon 08-22-2021 Thin prep Papanicolaou smear with manual screening 124 U/L 15-37 [facility] Work Phone: Thin prep Papanicolaou smear with manual screening 9 5-15 [facility] Work Phone: Urine blood detectionon 08-04-2021 RBC Ql (U) 25 /ul Negative [facility] Work Phone: [phone] RBC Ql (U) 0-5 SEEN /hpf 0-5 [facility] Work Phone: Urine clarityon 08-22-2021 Clarity (U) Cloudy Clear [facility] Work Phone: Urine color determinationon 08-22-2021 Color (U) Yellow Yellow [facility] Work Phone: Urine glucose detectionon Glucose Ql (U) Normal mg/dl Normal [facility] Work Phone: Urine leukocyte esterase det ection by dipstickon 08-22-2021 Leukocyte esterase Test strip Ql (U) 25 /ul Negative [facility] Work Phone: Urine pHon 08-22-2021 pH (U) 6.0 [pH] 5.0 - 8.0 [facility] Work Phone: Urine sediment bacteria coun t by microscopy (number/high power field)on 08-22-2021 Bacteria LM.HPF (Urine sed) [#/Area] 4 /[HPF] None Seen [facility] Work Phone: Urine specific gravity measu rementon 08-22-2021 Specific gravity (U) [Rel density] 1.025 1.002-1.03 0 [facility] Work Phone: Urobilinogen Auto test strip Ql (U)on 08-22-2021 Urobilinogen Ql (U) 1 mg/dl Normal [facility] Work Phone: .Auto Diffon 03-08-2021 Basophil, Absolute 0.00 10 3/mcL Normal 0.00-0.19 [facility] ([place]) Comment on above: Performed By: #### C BC, ADIFF, ANEU, LIPID, CMP #### [place] [address] #### GFR #### [address] [address] Basophils/100 WBC (Bld) 0.2 % Normal 0.0-2.5 A [facility] ([place]) Comment on above: Performed By: #### C BC, ADIFF, ANEU, LIPID, CMP #### [place] [address] #### GFR #### [address] [address] Eosinophil, Absolute 0.30 10 3/mcL Normal 0.00-0.40 A [facility] ([place]) Comment on above: Performed By: #### C BC, ADIFF, ANEU, LIPID, CMP #### [place] [address] #### GFR #### [address] [address] Eosinophils/100 WBC (Bld) 3.5 % Normal 0.0-7.0 [facility] ([place]) Comment on above: Performed By: #### C BC, ADIFF, ANEU, LIPID, CMP #### [place] [address] #### GFR #### [address] [address] Lymphocyte, Absolute 1.00 10 3/mcL Normal 0.77-3.85 A [facility] ([place]) Comment on above: Performed By: #### C BC, ADIFF, ANEU, LIPID, CMP #### [place] [address] #### GFR #### [address] [address] Lymphocytes/100 WBC (Bld) 11.7 % Normal 10.0-50.0 [facility] ([place]) Comment on above: Performed By: #### C BC, ADIFF, ANEU, LIPID, CMP #### [address] [address] #### GFR #### [address] [address] Monocyte, Absolute 0.60 10 3/mcL Normal 0.15-1.00 [facility] ([place]) Comment on above: Performed By: #### C BC, ADIFF, ANEU, LIPID, CMP #### [address] [address] #### GFR #### [address] [address] Monocytes/100 WBC (Bld) 7.6 % Normal 1.7-13.0 [facility] ([place]) Comment on above: Performed By: #### C BC, ADIFF, ANEU, LIPID, CMP #### [address] [address] #### GFR #### [address] [address] Neutrophils/100 WBC (Bld) 77.0 % Normal 37.0-80.0 [facility] ([place]) Comment on above: Performed By: #### C BC, ADIFF, ANEU, LIPID, CMP #### [address] [address] #### GFR #### [address] [address] .GFRon 03-08-2021 GFR Non- 117 ml/min/1.73sqm Normal [facility] ([place]) Comment on above: Result Comment: GFR Population [...] C BC, ADIFF, ANEU, LIPID, CMP #### [address] [address] #### GFR #### [address] [address] GFR 142 ml/min/1.73sqm Normal [facility] ([place]) Comment on above: Result Comment: GFR Population [...] C BC, ADIFF, ANEU, LIPID, CMP #### [address] [address] #### GFR #### [address] [address] .NEUABSon 03-08-2021 Neutrophil, Absolute 6.30 10 3/mcL High 2.85-6.16 A [facility] ([place]) Comment on above: Performed By: #### C BC, ADIFF, ANEU, LIPID, CMP #### [address] [address] #### GFR #### [address] [address] CBCon 03-08-2021 Erythrocyte distribution width (RBC) [Ratio] 13.9 % Normal 11.5-14.5 [facility] ([place]) Comment on above: Performed By: #### C BC, ADIFF, ANEU, LIPID, CMP #### [place] [address] #### GFR #### [place] [address] Hematocrit (Bld) [Volume fraction] 37.5 % Normal 37.0-47.0 [facility] ([place]) Comment on above: Performed By: #### C BC, ADIFF, ANEU, LIPID, CMP #### [place] [address] #### GFR #### [place] [address] Hgb 13.1 G/dL Normal 12.0-16.0 [facility] ([place]) Comment on above: Performed By: #### C BC, ADIFF, ANEU, LIPID, CMP #### [place] [address] #### GFR #### [place] [address] MCH (RBC) [Entitic mass] 35.5 pg High 27.0-31.2 [facility] ([place]) Comment on above: Performed By: #### C BC, ADIFF, ANEU, LIPID, CMP #### [place] [address] #### GFR #### [place] [address] MCHC 35.0 G/dL Normal 33.0-37.0 [facility] ([place]) Comment on above: Performed By: #### C BC, ADIFF, ANEU, LIPID, CMP #### [place] [address] #### GFR #### [place] [address] MCV (RBC) [Entitic vol] 101.4 fL High 80.0-94.0 A [facility] ([place]) Comment on above: Performed By: #### C BC, ADIFF, ANEU, LIPID, CMP #### [place] [address] #### GFR #### [place] [address] Platelet 171 10 3/mcL Normal 130-400 [facility] ([place]) Comment on above: Performed By: #### C BC, ADIFF, ANEU, LIPID, CMP #### [place] [address] #### GFR #### [place] [address] Platelet mean volume (Bld) [Entitic vol] 9.4 fL Normal 7.4-10.4 [facility] ([place]) Comment on above: Performed By: #### C BC, ADIFF, ANEU, LIPID, CMP #### [place] [address] #### GFR #### [place] [address] RBC 3.69 10 6/mcL Low 4.20-5.40 [facility] ([place]) Comment on above: Performed By: #### C BC, ADIFF, ANEU, LIPID, CMP #### [place] [address] #### GFR #### [place] [address] WBC 8.20 10 3/mcL Normal 4.60-10.80 [facility] ([place]) Comment on above: Performed By: #### C BC, ADIFF, ANEU, LIPID, CMP #### [place] [address] #### GFR #### [place] [address] CMPon 03-08-2021 Albumin Level 2.6 G/dL Low 3.5-5.0 [facility] ([place]) Comment on above: Performed By: #### C BC, ADIFF, ANEU, LIPID, CMP #### [place] [address] #### GFR #### [address] [address] Albumin/Globulin [Mass ratio] 0.8 {ratio} Low 1.1-2.5 [facility] ([place]) Comment on above: Performed By: #### C BC, ADIFF, ANEU, LIPID, CMP #### [address] [address] #### GFR #### [address] [address] ALP [Catalytic activity/Vol] 115 U/L Normal 40-135 [facility] ([place]) Comment on above: Performed By: #### C BC, ADIFF, ANEU, LIPID, CMP #### [place] [address] #### GFR #### [place] [address] ALT [Catalytic activity/Vol] 99 U/L High 14-59 [facility] ([place]) Comment on above: Performed By: #### C BC, ADIFF, ANEU, LIPID, CMP #### [place] [address] #### GFR #### [place] [address] AST [Catalytic activity/Vol] 77 U/L High 10-40 [facility] ([place]) Comment on above: Performed By: #### C BC, ADIFF, ANEU, LIPID, CMP #### [place] [address] #### GFR #### [place] [address] Bili Total 0.8 mg/dL Normal 0.2-1.0 [facility] ([place]) Comment on above: Result Comment: Use of this assay is not recommended for patients undergoing treatment with eltrombopag due to the potential for falsely elevated results. Performed By: #### C BC, ADIFF, ANEU, LIPID, CMP #### [place] [address] #### GFR #### [place] [address] BUN/Creatinine Ratio 9 ratio Normal 7-27 [facility] [place] Comment on above: Performed By: #### C BC, ADIFF, ANEU, LIPID, CMP #### [address] [address] #### GFR #### [address] [address] Calcium [Mass/Vol] 7.9 mg/dL Low 8.4-10.2 [facility] ([place]) Comment on above: Performed By: #### C BC, ADIFF, ANEU, LIPID, CMP #### [address] [address] #### GFR #### [place] [address] Chloride [Moles/Vol] 102 mmol/L Normal 98-107 [facility] [place] Comment on above: Performed By: #### C BC, ADIFF, ANEU, LIPID, CMP #### [place] [address] #### GFR #### [address] [address] CO2 [Moles/Vol] 32 mmol/L High 22-29 [facility] ([place]) Comment on above: Performed By: #### C BC, ADIFF, ANEU, LIPID, CMP #### [address] [address] #### GFR #### [place] [address] Creatinine [Mass/Vol] 0.57 mg/dL Normal 0.55-1.02 [facility] ([place]) Comment on above: Performed By: #### C BC, ADIFF, ANEU, LIPID, CMP #### [place] [address] #### GFR #### [address] [address] Electrolyte Balance 7.0 mEq/L Normal [facility] ([place]) Comment on above: Performed By: #### C BC, ADIFF, ANEU, LIPID, CMP #### [address] [address] #### GFR #### [address] [address] Globulin 3.2 G/dL Normal [facility] ([place]) Comment on above: Performed By: #### C BC, ADIFF, ANEU, LIPID, CMP #### [address] [address] #### GFR #### [address] [address] Glucose [Mass/Vol] 82 mg/dL Normal 70-105 [facility] ([place]) Comment on above: Performed By: #### C BC, ADIFF, ANEU, LIPID, CMP #### [address] [address] #### GFR #### [address] [address] Potassium [Moles/Vol] 3.1 mmol/L Low 3.5-5.1 [facility] ([place]) Comment on above: Performed By: #### C BC, ADIFF, ANEU, LIPID, CMP #### [address] [address] #### GFR #### [address] [address] Sodium [Moles/Vol] 141 mmol/L Normal 136-145 [facility] ([place]) Comment on above: Performed By: #### C BC, ADIFF, ANEU, LIPID, CMP #### [address] [address] #### GFR #### [address] [address] Total Protein 5.8 G/dL Low 6.4-8.2 [facility] ([place]) Comment on above: Performed By: #### C BC, ADIFF, ANEU, LIPID, CMP #### [address] [address] #### GFR #### [address] [address] Urea nitrogen [Mass/Vol] 5 mg/dL Low 7-18 [facility] ([place]) Comment on above: Performed By: #### C BC, ADIFF, ANEU, LIPID, CMP #### [address] [address] #### GFR #### [address] [address] MGon 03-08-2021 Magnesium [Mass/Vol] 1.5 mg/dL Low 1.8-2.4 [facility] [place] Comment on above: Performed By: #### C BC, ADIFF, ANEU, LIPID, CMP #### [address] [address] #### GFR #### [address] [address] .GFRon 03-07-2021 GFR 106 ml/min/1.73sqm Normal [facility] ([place]) Comment on above: Result Comment: GFR Population [...] meters Performed By: #### C MP #### [address] [address] #### GFR #### [address] [address] GFR Non- 88 ml/min/1.73sqm Normal [facility] ([place]) Comment on above: Result Comment: GFR Population [...] meters Performed By: #### C MP #### [place] [address] #### GFR #### [address] [address] CMPon 03-07-2021 Albumin Level 2.7 G/dL Low 3.5-5.0 [facility] ([place]) Comment on above: Performed By: #### C MP #### [place] [address] #### GFR #### [place] [address] Albumin/Globulin [Mass ratio] 0.9 {ratio} Low 1.1-2.5 [facility] ([place]) Comment on above: Performed By: #### C MP #### [place] [address] #### GFR #### [address] [address] ALP [Catalytic activity/Vol] 111 U/L Normal 40-135 [facility] ([place]) Comment on above: Performed By: #### C MP #### [address] [address] #### GFR #### [address] [address] ALT [Catalytic activity/Vol] 124 U/L High 14-59 [facility] ([place]) Comment on above: Performed By: #### C MP #### [address] [address] #### GFR #### [address] [address] AST [Catalytic activity/Vol] 101 U/L High 10-40 [facility] ([place]) Comment on above: Performed By: #### C MP #### [place] [address] #### GFR #### [address] [address] Bili Total 0.8 mg/dL Normal 0.2-1.0 [facility] ([place]) Comment on above: Result Comment: Use of this assay is not recommended for patients undergoing treatment with eltrombopag due to the potential for falsely elevated results. Performed By: #### C MP #### [place] [address] #### GFR #### [place] [address] BUN/Creatinine Ratio 12 ratio Normal 7-27 [facility] [place] Comment on above: Performed By: #### C MP #### [place] [address] #### GFR #### [place] [address] Calcium [Mass/Vol] 7.9 mg/dL Low 8.4-10.2 [facility] ([place]) Comment on above: Performed By: #### C MP #### [place] [address] #### GFR #### [address] [address] Chloride [Moles/Vol] 102 mmol/L Normal 98-107 [facility] [place] Comment on above: Performed By: #### C MP #### [place] [address] #### GFR #### [address] [address] CO2 [Moles/Vol] 34 mmol/L High 22-29 [facility] ([place]) Comment on above: Performed By: #### C MP #### [place] [address] #### GFR #### [address] [address] Creatinine [Mass/Vol] 0.73 mg/dL Normal 0.55-1.02 [facility] ([place]) Comment on above: Performed By: #### C MP #### [address] [address] #### GFR #### [address] [address] Electrolyte Balance 6.0 mEq/L Normal [facility] ([place]) Comment on above: Performed By: #### C MP #### [address] [address] #### GFR #### [address] [address] Globulin 3.1 G/dL Normal [facility] ([place]) Comment on above: Performed By: #### C MP #### [address] [address] #### GFR #### [address] [address] Glucose [Mass/Vol] 84 mg/dL Normal 70-105 [facility] ([place]) Comment on above: Performed By: #### C MP #### [address] [address] #### GFR #### [address] [address] Potassium [Moles/Vol] 3.2 mmol/L Low 3.5-5.1 [facility] ([place]) Comment on above: Performed By: #### C MP #### [address] [address] #### GFR #### [address] [address] Sodium [Moles/Vol] 142 mmol/L Normal 136-145 [facility] ([place]) Comment on above: Performed By: #### C MP #### [address] [address] #### GFR #### [address] [address] Total Protein 5.8 G/dL Low 6.4-8.2 [facility] ([place]) Comment on above: Performed By: #### C MP #### [address] [address] #### GFR #### [address] [address] Urea nitrogen [Mass/Vol] 9 mg/dL Normal 7-18 [facility] ([place]) Comment on above: Performed By: #### C MP #### [address] [address] #### GFR #### [address] [address] XR CHEST 2 VIEWSon XR CHEST 2 VIEWS ORIGINAL Two views [...] 03/07/2021 9:06:06 AM Ordering Provider: JOSE Cuadra [facility] ([place]) .Auto Diffon 03-06-2021 Basophil, Absolute 0.00 10 3/mcL Normal 0.00-0.19 [facility] ([place]) Comment on above: Performed By: #### C BC, ADIFF, ANEU, LIPID, CMP #### [address] [address] #### GFR #### [address] [address] Basophils/100 WBC (Bld) 0.4 % Normal 0.0-2.5 A [facility] ([place]) Comment on above: Performed By: #### C BC, ADIFF, ANEU, LIPID, CMP #### [place] [address] #### GFR #### [address] [address] Eosinophil, Absolute 0.10 10 3/mcL Normal 0.00-0.40 [facility] [facility] ([place]) Comment on above: Performed By: #### C BC, ADIFF, ANEU, LIPID, CMP #### [place] [address] #### GFR #### [address] [address] Eosinophils/100 WBC (Bld) 1.7 % Normal 0.0-7.0 [facility] ([place]) Comment on above: Performed By: #### C BC, ADIFF, ANEU, LIPID, CMP #### [place] [address] #### GFR #### [address] [address] Lymphocyte, Absolute 1.50 10 3/mcL Normal 0.77-3.85 A [facility] ([place]) Comment on above: Performed By: #### C BC, ADIFF, ANEU, LIPID, CMP #### [place] [address] #### GFR #### [address] [address] Lymphocytes/100 WBC (Bld) 20.4 % Normal 10.0-50.0 [facility] ([place]) Comment on above: Performed By: #### C BC, ADIFF, ANEU, LIPID, CMP #### [place] [address] #### GFR #### [address] [address] Monocyte, Absolute 0.30 10 3/mcL Normal 0.15-1.00 [facility] ([place]) Comment on above: Performed By: #### C BC, ADIFF, ANEU, LIPID, CMP #### [place] [address] #### GFR #### [address] [address] Monocytes/100 WBC (Bld) 4.6 % Normal 1.7-13.0 A [facility] ([place]) Comment on above: Performed By: #### C BC, ADIFF, ANEU, LIPID, CMP #### [address] [address] #### GFR #### [address] [address] Neutrophils/100 WBC (Bld) 72.9 % Normal 37.0-80.0 [facility] ([place]) Comment on above: Performed By: #### C BC, ADIFF, ANEU, LIPID, CMP #### [address] [address] #### GFR #### [address] [address] Basophil, Absolute 0.00 10 3/mcL Normal 0.00-0.19 [facility] ([place]) Comment on above: Performed By: #### C BC, ADIFF, ANEU, LIPID, CMP #### [address] [address] #### GFR #### [address] [address] Basophils/100 WBC (Bld) 0.5 % Normal 0.0-2.5 A [facility] ([place]) Comment on above: Performed By: #### C BC, ADIFF, ANEU, LIPID, CMP #### [place] [address] #### GFR #### [address] [address] Eosinophil, Absolute 0.10 10 3/mcL Normal 0.00-0.40 A [facility] ([place]) Comment on above: Performed By: #### C BC, ADIFF, ANEU, LIPID, CMP #### [address] [address] #### GFR #### [address] [address] Eosinophils/100 WBC (Bld) 1.4 % Normal 0.0-7.0 [facility] ([place]) Comment on above: Performed By: #### C BC, ADIFF, ANEU, LIPID, CMP #### [address] [address] #### GFR #### [address] [address] Lymphocyte, Absolute 1.40 10 3/mcL Normal 0.77-3.85 A [facility] ([place]) Comment on above: Performed By: #### C BC, ADIFF, ANEU, LIPID, CMP #### [place] [address] #### GFR #### [address] [address] Lymphocytes/100 WBC (Bld) 17.9 % Normal 10.0-50.0 [facility] ([place]) Comment on above: Performed By: #### C BC, ADIFF, ANEU, LIPID, CMP #### [place] [address] #### GFR #### [address] [address] Monocyte, Absolute 0.50 10 3/mcL Normal 0.15-1.00 [facility] ([place]) Comment on above: Performed By: #### C BC, ADIFF, ANEU, LIPID, CMP #### [place] [address] #### GFR #### [address] [address] Monocytes/100 WBC (Bld) 7.1 % Normal 1.7-13.0 A [facility] ([place]) Comment on above: Performed By: #### C BC, ADIFF, ANEU, LIPID, CMP #### [place] [address] #### GFR #### [address] [address] Neutrophils/100 WBC (Bld) 73.1 % Normal 37.0-80.0 [facility] ([place]) Comment on above: Performed By: #### C BC, ADIFF, ANEU, LIPID, CMP #### [address] [address] #### GFR #### [address] [address] .GFRon 03-06-2021 GFR 93 ml/min/1.73sqm Normal [facility] ([place]) Comment on above: Result Comment: GFR Population [...] C BC, ADIFF, ANEU, LIPID, CMP #### [address] [address] #### GFR #### [address] [address] GFR Non- 77 ml/min/1.73sqm Normal [facility] ([place]) Comment on above: Result Comment: GFR Population [...] C BC, ADIFF, ANEU, LIPID, CMP #### [address] [address] #### GFR #### [address] [address] GFR 112 ml/min/1.73sqm [facility] ([place]) Comment on above: Result Comment: GFR Population [...] C BC, ADIFF, ANEU, LIPID, CMP #### [address] [address] #### GFR #### [place] [id number] GFR Non- 92 ml/min/1.73sqm [facility] ([place]) Comment on above: Result Comment: GFR Population [...] C BC, ADIFF, ANEU, LIPID, CMP #### [address] [address] #### GFR #### [place] [address] .NEUABSon 03-06-2021 Neutrophil, Absolute 5.40 10 3/mcL Normal 2.85-6.16 A [facility] ([place]) Comment on above: Performed By: #### C BC, ADIFF, ANEU, LIPID, CMP #### [place] [address] #### GFR #### [place] [address] Neutrophil, Absolute 5.60 10 3/mcL Normal 2.85-6.16 A [facility] ([place]) Comment on above: Performed By: #### C BC, ADIFF, ANEU, LIPID, CMP #### [place] [address] #### GFR #### [place] [address] .Urinalysis Microscopic (AO) on 03-06-2021 UA Bacteria 2+ /hpf Abnormal [facility] ([place]) Comment on above: Performed By: #### C BC, ADIFF, ANEU, LIPID, CMP #### [place] [address] #### GFR #### [place] [address] UA RBC None Seen Normal None Seen [facility] ([place]) Comment on above: Performed By: #### C BC, ADIFF, ANEU, LIPID, CMP #### [place] [address] #### GFR #### [place] [address] UA Squam Epithelial 5-10 Abnormal None Seen [facility] ([place]) Comment on above: Performed By: #### C BC, ADIFF, ANEU, LIPID, CMP #### [place] [address] #### GFR #### [place] [address] UA WBC 0-5 Abnormal None Seen [facility] ([place]) Comment on above: Performed By: #### C BC, ADIFF, ANEU, LIPID, CMP #### [place] [address] #### GFR #### [place] [address] CBCon 03-06-2021 Erythrocyte distribution width (RBC) [Ratio] 13.8 % Normal 11.5-14.5 [facility] ([place]) Comment on above: Performed By: #### C BC, ADIFF, ANEU, LIPID, CMP #### [place] [address] #### GFR #### [place] [address] Hematocrit (Bld) [Volume fraction] 41.5 % Normal 37.0-47.0 [facility] ([place]) Comment on above: Performed By: #### C BC, ADIFF, ANEU, LIPID, CMP #### [place] [address] #### GFR #### [place] [address] Hgb 14.4 G/dL Normal 12.0-16.0 [facility] ([place]) Comment on above: Performed By: #### C BC, ADIFF, ANEU, LIPID, CMP #### [place] [address] #### GFR #### [place] [address] MCH (RBC) [Entitic mass] 35.3 pg High 27.0-31.2 [facility] ([place]) Comment on above: Performed By: #### C BC, ADIFF, ANEU, LIPID, CMP #### [place] [address] #### GFR #### [place] [address] MCHC 34.7 G/dL Normal 33.0-37.0 [facility] ([place]) Comment on above: Performed By: #### C BC, ADIFF, ANEU, LIPID, CMP #### [address] [address] #### GFR #### [address] [address] MCV (RBC) [Entitic vol] 101.8 fL High 80.0-94.0 A [facility] ([place]) Comment on above: Performed By: #### C BC, ADIFF, ANEU, LIPID, CMP #### [place] [address] #### GFR #### [place] [address] Platelet 232 10 3/mcL Normal 130-400 [facility] ([place]) Comment on above: Performed By: #### C BC, ADIFF, ANEU, LIPID, CMP #### [place] [address] #### GFR #### [place] [address] Platelet mean volume (Bld) [Entitic vol] 9.0 fL Normal 7.4-10.4 [facility] ([place]) Comment on above: Performed By: #### C BC, ADIFF, ANEU, LIPID, CMP #### [place] [address] #### GFR #### [place] [address] RBC 4.08 10 6/mcL Low 4.20-5.40 [facility] ([place]) Comment on above: Performed By: #### C BC, ADIFF, ANEU, LIPID, CMP #### [place] [address] #### GFR #### [place] [address] WBC 7.40 10 3/mcL Normal 4.60-10.80 [facility] ([place]) Comment on above: Performed By: #### C BC, ADIFF, ANEU, LIPID, CMP #### [place] [address] #### GFR #### [place] [address] Erythrocyte distribution width (RBC) [Ratio] 13.9 % Normal 11.5-14.5 [facility] ([place]) Comment on above: Performed By: #### C BC, ADIFF, ANEU, LIPID, CMP #### [place] [address] #### GFR #### [place] [address] Hematocrit (Bld) [Volume fraction] 42.3 % Normal 37.0-47.0 [facility] ([place]) Comment on above: Performed By: #### C BC, ADIFF, ANEU, LIPID, CMP #### [place] [address] #### GFR #### [place] [address] Hgb 15.0 G/dL Normal 12.0-16.0 [facility] ([place]) Comment on above: Performed By: #### C BC, ADIFF, ANEU, LIPID, CMP #### [place] [address] #### GFR #### [place] [address] MCH (RBC) [Entitic mass] 35.5 pg High 27.0-31.2 [facility] ([place]) Comment on above: Performed By: #### C BC, ADIFF, ANEU, LIPID, CMP #### [place] [address] #### GFR #### [place] [address] MCHC 35.5 G/dL Normal 33.0-37.0 [facility] ([place]) Comment on above: Performed By: #### C BC, ADIFF, ANEU, LIPID, CMP #### [place] [address] #### GFR #### [place] [address] MCV (RBC) [Entitic vol] 100.0 fL High 80.0-94.0 A [facility] ([place]) Comment on above: Performed By: #### C BC, ADIFF, ANEU, LIPID, CMP #### [place] [address] #### GFR #### [place] [address] Platelet 250 10 3/mcL Normal 130-400 [facility] ([place]) Comment on above: Performed By: #### C BC, ADIFF, ANEU, LIPID, CMP #### [place] [address] #### GFR #### [place] [address] Platelet mean volume (Bld) [Entitic vol] 8.9 fL Normal 7.4-10.4 [facility] ([place]) Comment on above: Performed By: #### C BC, ADIFF, ANEU, LIPID, CMP #### [place] [address] #### GFR #### [place] [address] RBC 4.23 10 6/mcL Normal 4.20-5.40 [facility] ([place]) Comment on above: Performed By: #### C BC, ADIFF, ANEU, LIPID, CMP #### [place] [address] #### GFR #### [place] [address] WBC 7.60 10 3/mcL Normal 4.60-10.80 [facility] ([place]) Comment on above: Performed By: #### C BC, ADIFF, ANEU, LIPID, CMP #### [place] [address] #### GFR #### [place] [address] CMPon 03-06-2021 Albumin Level 3.3 G/dL Low 3.5-5.0 [facility] ([place]) Comment on above: Performed By: #### C BC, ADIFF, ANEU, LIPID, CMP #### [place] [address] #### GFR #### [address] [address] Albumin/Globulin [Mass ratio] 1.0 {ratio} Low 1.1-2.5 [facility] ([place]) Comment on above: Performed By: #### C BC, ADIFF, ANEU, LIPID, CMP #### [place] [address] #### GFR #### [address] [address] ALP [Catalytic activity/Vol] 128 U/L Normal 40-135 [facility] ([place]) Comment on above: Performed By: #### C BC, ADIFF, ANEU, LIPID, CMP #### [place] [address] #### GFR #### [address] [address] ALT [Catalytic activity/Vol] 198 U/L High 14-59 [facility] ([place]) Comment on above: Performed By: #### C BC, ADIFF, ANEU, LIPID, CMP #### [place] [address] #### GFR #### [address] [address] AST [Catalytic activity/Vol] 208 U/L High 10-40 [facility] ([place]) Comment on above: Performed By: #### C BC, ADIFF, ANEU, LIPID, CMP #### [place] [address] #### GFR #### [address] [address] Bili Total 0.6 mg/dL Normal 0.2-1.0 [facility] ([place]) Comment on above: Result Comment: Use of this assay is not recommended for patients undergoing treatment with eltrombopag due to the potential for falsely elevated results. Performed By: #### C BC, ADIFF, ANEU, LIPID, CMP #### [place] [id number] #### GFR #### [address] [address] BUN/Creatinine Ratio 9 ratio Normal 7-27 [facility] [place] Comment [place]: Performed By: #### C BC, ADIFF, ANEU, LIPID, CMP #### [address] [address] #### GFR #### [address] [address] Calcium [Mass/Vol] 8.6 mg/dL Normal 8.4-10.2 [facility] ([place]) Comment on above: Performed By: #### C BC, ADIFF, ANEU, LIPID, CMP #### [address] [address] #### GFR #### [address] [address] Chloride [Moles/Vol] 102 mmol/L Normal 98-107 [facility] [place] Comment [place] above: Performed By: #### C BC, ADIFF, ANEU, LIPID, CMP #### [address] [address] #### GFR #### [address] [address] CO2 [Moles/Vol] 35 mmol/L High 22-29 [facility] ([place]) Comment on above: Performed By: #### C BC, ADIFF, ANEU, LIPID, CMP #### [address] [address] #### GFR #### [address] [address] Creatinine [Mass/Vol] 0.82 mg/dL Normal 0.55-1.02 [facility] ([place]) Comment on above: Performed By: #### C BC, ADIFF, ANEU, LIPID, CMP #### [address] [address] #### GFR #### [address] [address] Electrolyte Balance 6.0 mEq/L Normal [facility] ([place]) Comment on above: Performed By: #### C BC, ADIFF, ANEU, LIPID, CMP #### [address] [address] #### GFR #### [address] [address] Globulin 3.4 G/dL Normal [facility] ([place]) Comment on above: Performed By: #### C BC, ADIFF, ANEU, LIPID, CMP #### [address] [address] #### GFR #### [address] [address] Glucose [Mass/Vol] 91 mg/dL Normal 70-105 [facility] ([place]) Comment on above: Performed By: #### C BC, ADIFF, ANEU, LIPID, CMP #### [address] [address] #### GFR #### [address] [address] Potassium [Moles/Vol] 3.6 mmol/L Normal 3.5-5.1 [facility] ([place]) Comment on above: Performed By: #### C BC, ADIFF, ANEU, LIPID, CMP #### [address] [address] #### GFR #### [address] [address] Sodium [Moles/Vol] 143 mmol/L Normal 136-145 [facility] ([place]) Comment on above: Performed By: #### C BC, ADIFF, ANEU, LIPID, CMP #### [address] [address] #### GFR #### [address] [address] Total Protein 6.7 G/dL Normal 6.4-8.2 [facility] ([place]) Comment on above: Performed By: #### C BC, ADIFF, ANEU, LIPID, CMP #### [address] [address] #### GFR #### [address] [address] Urea nitrogen [Mass/Vol] 7 mg/dL Normal 7-18 [facility] ([place]) Comment on above: Performed By: #### C BC, ADIFF, ANEU, LIPID, CMP #### [address] [address] #### GFR #### [address] [address] Albumin Level 3.4 G/dL Low 3.5-5.0 [facility] ([place]) Comment on above: Performed By: #### C BC, ADIFF, ANEU, LIPID, CMP #### [address] [address] #### GFR #### [address] [address] Albumin/Globulin [Mass ratio] 0.9 {ratio} Low 1.1-2.5 [facility] ([place]) Comment on above: Performed By: #### C BC, ADIFF, ANEU, LIPID, CMP #### [address] [address] #### GFR #### [address] [address] ALP [Catalytic activity/Vol] 132 U/L Normal 40-135 [facility] ([place]) Comment on above: Performed By: #### C BC, ADIFF, ANEU, LIPID, CMP #### [address] [address] #### GFR #### [address] [address] ALT [Catalytic activity/Vol] 223 U/L High 14-59 [facility] ([place]) Comment on above: Performed By: #### C BC, ADIFF, ANEU, LIPID, CMP #### [address] [address] #### GFR #### [address] [address] AST [Catalytic activity/Vol] 274 U/L High 10-40 [facility] ([place]) Comment on above: Performed By: #### C BC, ADIFF, ANEU, LIPID, CMP #### [address] [address] #### GFR #### [address] [address] Bili Total 0.5 mg/dL Normal 0.2-1.0 [facility] ([place]) Comment on above: Result Comment: Use of this assay is not recommended for patients undergoing treatment with eltrombopag due to the potential for falsely elevated results. Performed By: #### C BC, ADIFF, ANEU, LIPID, CMP #### [address] [address] #### GFR #### [address] [address] BUN/Creatinine Ratio 11 ratio Normal 7-27 [facility] [place]: Performed By: #### C BC, ADIFF, ANEU, LIPID, CMP #### [place] [address] #### GFR #### [address] [address] Calcium [Mass/Vol] 9.5 mg/dL Normal 8.4-10.2 [facility] ([place] Comment on above: Performed By: #### C BC, ADIFF, ANEU, LIPID, CMP #### [place] [address] #### GFR #### [address] [address] Chloride [Moles/Vol] 98 mmol/L Normal 98-107 [facility] [place] Comment [place] above: Performed By: #### C BC, ADIFF, ANEU, LIPID, CMP #### [place] [address] #### GFR #### [address] [address] CO2 [Moles/Vol] 30 mmol/L High 22-29 [facility] ([place]) Comment on above: Performed By: #### C BC, ADIFF, ANEU, LIPID, CMP #### [address] [address] #### GFR #### [address] [address] Creatinine [Mass/Vol] 0.70 mg/dL Normal 0.55-1.02 [facility] ([place]) Comment on above: Performed By: #### C BC, ADIFF, ANEU, LIPID, CMP #### [place] [address] #### GFR #### [address] [address] Electrolyte Balance 13.0 mEq/L Normal [facility] ([place]) Comment on above: Performed By: #### C BC, ADIFF, ANEU, LIPID, CMP #### [address] [address] #### GFR #### [place] [address] Globulin 3.7 G/dL Normal [facility] ([place]) Comment on above: Performed By: #### C BC, ADIFF, ANEU, LIPID, CMP #### [place] [address] #### GFR #### [place] [address] Glucose [Mass/Vol] 112 mg/dL High 70-105 [facility] ([place] Comment on above: Performed By: #### C BC, ADIFF, ANEU, LIPID, CMP #### [place] [address] #### GFR #### [address] [address] Potassium [Moles/Vol] 2.4 mmol/L Critically abnormal 3.5-5.1 [facility] ([place]) Comment on above: Performed By: #### C BC, ADIFF, ANEU, LIPID, CMP #### [place] [address] #### GFR #### [address] [address] Sodium [Moles/Vol] 141 mmol/L Normal 136-145 [facility] ([place]) Comment on above: Performed By: #### C BC, ADIFF, ANEU, LIPID, CMP #### [address] [address] #### GFR #### [address] [address] Total Protein 7.1 G/dL Normal 6.4-8.2 [facility] ([place]) Comment on above: Performed By: #### C BC, ADIFF, ANEU, LIPID, CMP #### [address] [address] #### GFR #### [address] [address] Urea nitrogen [Mass/Vol] 8 mg/dL Normal 7-18 [facility] ([place]) Comment on above: Performed By: #### C BC, ADIFF, ANEU, LIPID, CMP #### [address] [address] #### GFR #### [address] [address] [address] ABD/PELVIS W/ IV CONTRAST ONLYon 03-06-2021 [...] 4:01:00 AM Ordering Provider: SHARLA BARKLEY Normal [facility]) LIPon 03-06-2021 Lipase Level 1885 U/L Normal 73-393 [facility]) Comment on above: Performed By: #### C HEMANTH MARTINEZ ANEU, LIPID, CMP #### [address] [address] #### GFR #### [address] [address] LIPIDon 03-06-2021 Cholesterol [Mass/Vol] 230 mg/dL High 0-200 [facility]) Comment on above: Result Comment: Chol esterol Reference Interval: Less than 200 Desirable 200-239 Borderline high risk 240 and above High risk Performed By: #### C HEMANTH MARTINEZ ANEU, LIPID, CMP #### [address] [address] #### GFR #### [address] [address] Cholesterol in HDL [Mass/Vol] 78 mg/dL High 40-60 [facility] ([place]) Comment on above: Performed By: #### C BC, ADIFF, ANEU, LIPID, CMP #### [place] [address] #### GFR #### [address] [address] Cholesterol in LDL [Mass/Vol] 139 mg/dL High 0-130 [facility] ([place]) Comment on above: Performed By: #### C BC, ADIFF, ANEU, LIPID, CMP #### [address] [address] #### GFR #### [address] [address] Triglyceride [Mass/Vol] 67 mg/dL Normal 0-150 A [facility] ([place]) Comment on above: Result Comment: Trig lyceride Reference Interval: Less than 150 Normal 150-199 Borderline high risk 200-499 High risk 500 or higher Very high risk Performed By: #### C BC, ADIFF, ANEU, LIPID, CMP #### [address] [address] #### GFR #### [address] [address] PREGUon 03-06-2021 HCG ( test) Ql (U) Negative Normal [facility] ([place]) Comment on above: Performed By: #### P REGU #### [address] [address] test (u) int Not detected Invalid Interpretation Code [facility] ([place]) Comment on above: Performed By: #### P REGU #### [address] [address] TROPHSon 03-06-2021 Troponin I High Sensitivity 7.4 ng/L Normal 0.0-51.4 [facility] ([place]) Comment on above: Performed By: #### C BC, ADIFF, ANEU, LIPID, CMP #### [address] [address] #### GFR #### [place] [id number] UAon 03-06-2021 Color (U) Yellow Normal [facility] ([place]) Comment on above: Performed By: #### C BC, ADIFF, ANEU, LIPID, CMP #### [place] [address] #### GFR #### [place] [address] Glucose (U) [Mass/Vol] Negative Normal Negative [facility] ([place]) Comment on above: Performed By: #### C BC, ADIFF, ANEU, LIPID, CMP #### [place] [address] #### GFR #### [place] [address] Ketones Ql (U) Trace Abnormal Negative [facility] ([place]) Comment on above: Performed By: #### C BC, ADIFF, ANEU, LIPID, CMP #### [place] [address] #### GFR #### [place] [address] UA Appear Slightly Cloudy Abnormal Clear [facility] ([place]) Comment on above: Performed By: #### C BC, ADIFF, ANEU, LIPID, CMP #### [place] [address] #### GFR #### [place] [address] UA Bili Small Abnormal Negative [facility] ([place]) Comment on above: Performed By: #### C BC, ADIFF, ANEU, LIPID, CMP #### [place] [address] #### GFR #### [place] [address] UA Blood Negative Normal Negative [facility] ([place]) Comment on above: Performed By: #### C BC, ADIFF, ANEU, LIPID, CMP #### [place] [address] #### GFR #### [place] [address] UA Leuk Est Negative Normal Negative [facility] ([place]) Comment on above: Performed By: #### C BC, ADIFF, ANEU, LIPID, CMP #### [place] [address] #### GFR #### [place] [address] UA Nitrite Negative Normal Negative [facility] ([place]) Comment on above: Performed By: #### C BC, ADIFF, ANEU, LIPID, CMP #### [place] [address] #### GFR #### [place] [address] UA pH 6.0 Normal 5.0 - 8.0 [facility] ([place]) Comment on above: Performed By: #### C BC, ADIFF, ANEU, LIPID, CMP #### [place] [address] #### GFR #### [place] [address] UA Protein 100 mg/dL Abnormal Negative [facility] ([place]) Comment on above: Performed By: #### C BC, ADIFF, ANEU, LIPID, CMP #### [place] [address] #### GFR #### [place] [address] UA Spec Grav >=1.030 Abnormal 1.015-1.02 5 [facility] ([place]) Comment on above: Performed By: #### C BC, ADIFF, ANEU, LIPID, CMP #### [place] [address] #### GFR #### [place] [address] UA Specimen Type Clean Catch Normal [facility] ([place]) Comment on above: Performed By: #### C BC, ADIFF, ANEU, LIPID, CMP #### [address] [address] #### GFR #### [address] [address] UA Urobilinogen 1.0 E.U./dL Normal 0.2-1.0 [facility] ([place]) Comment on above: Performed By: #### C BC, ADIFF, ANEU, LIPID, CMP #### [address] [address] #### GFR #### [address] [address] XR CHEST 1 VIEWon 03-06-2021 XR CHEST [...] Date: 03/06/2021 3:50:38 AM Ordering Provider: SHARLA Cuadra [facility] ([place]) Vital Signs Date Time Vital Sign Value Performing Clinician Juan R sylvester 02-08-2025 15:00-0400 Diastolic blood pressure 79 mm[Hg] No Primary Care Physician [facility] 02-08-2025 15:00-0400 Heart rate 80 /min No Primary Care Physician [facility] 02-08-2025 15:00-0400 SaO2% (BldA) [Mass fraction] 99 % No Primary Care Physician [facility] 02-08-2025 15:00-0400 Systolic blood pressure 117 mm[Hg] No Primary Care Physician [facility] 02-08-2025 14:14-0400 Body temperature 97.7 [degF] No Primary Care Physician [facility] 02-08-2025 14:14-0400 Respiratory rate 16 /min No Primary Care Physician [facility] 02-08-2025 11:29-0400 Body height 162.56 cm No Primary Care Physician [facility] 02-08-2025 11:29-0400 Body mass index (BMI) [Ratio] 23.4 kg/m2 No Primary Care Physician [facility] 02-08-2025 11:29-0400 Body weight 61.87 kg No Primary Care Physician [facility] 02-06-2025 21:23-0400 Body temperature 98.7 [degF] No Primary Care Physician [facility] 02-06-2025 21:23-0400 Diastolic blood pressure 83 mm[Hg] No Primary Care Physician [facility] 02-06-2025 21:23-0400 Heart rate 79 /min No Primary Care Physician [facility] 02-06-2025 21:23-0400 Respiratory rate 16 /min No Primary Care Physician [facility] 02-06-2025 21:23-0400 SaO2% (BldA) [Mass fraction] 96 % No Primary Care Physician [facility] 02-06-2025 21:23-0400 Systolic blood pressure 122 mm[Hg] No Primary Care Physician [facility] 02-06-2025 16:59-0400 Body height 162.56 cm No Primary Care Physician [facility] 02-06-2025 16:59-0400 Body mass index (BMI) [Ratio] 22.8 kg/m2 No Primary Care Physician [facility] 02-06-2025 16:59-0400 Body weight 60.41 kg No Primary Care Physician [facility] 01-15-2025 13:59-0400 Body height 162.6 cm Roel Mosley MD Work Phone: [facility] 01-15-2025 13:59-0400 Body mass index (BMI) [Ratio] 23.17 kg/m2 Roel Mosley MD Work Phone: [facility] 01-15-2025 13:59-0400 Body weight 61.24 kg Roel Mosley MD Work Phone: [facility] 01-15-2025 13:59-0400 Diastolic blood pressure 62 mm[Hg] Roel Mosley MD Work Phone: [facility] 01-15-2025 13:59-0400 Heart rate 75 /min Roel Mosley MD Work Phone: [facility] 01-15-2025 13:59-0400 SaO2% (BldA) [Mass fraction] 97 % Roel Mosley MD Work Phone: [facility] 01-15-2025 13:59-0400 Systolic blood pressure 100 mm[Hg] Roel Mosley MD Work Phone: [facility] 10-10-2024 09:45-0400 Diastolic blood pressure 81 mm[Hg] Roel Mosley MD Work Phone: [facility] 10-10-2024 09:45-0400 Heart rate 73 /min Roel Mosley MD Work Phone: [facility] 10-10-2024 09:45-0400 Respiratory rate 14 /min Roel Mosley MD Work Phone: [facility] 10-10-2024 09:45-0400 SaO2% (BldA) [Mass fraction] 98 % Roel Mosley MD Work Phone: [facility] 10-10-2024 09:45-0400 Systolic blood pressure 121 mm[Hg] Roel Mosley MD Work Phone: [facility] 10-10-2024 09:20-0400 Body temperature 97.2 [degF] Roel Mosley MD Work Phone: [facility] 10-10-2024 07:32-0400 Body height 162.6 cm Roel Mosley MD Work Phone: [facility] 10-10-2024 07:32-0400 Body mass index (BMI) [Ratio] 23.5 kg/m2 Roel Mosley MD Work Phone: [facility] 10-10-2024 07:32-0400 Body weight 62.14 kg Roel Mosley MD Work Phone: [facility] 10-08-2024 11:27-0400 Body height 162.6 cm [address] 1 [facility] 10-08-2024 11:27-0400 Body mass index (BMI) [Ratio] 23.52 kg/m2 Pst 1 [facility] 10-08-2024 11:27-0400 Body temperature 97.9 [degF] [address] 10-08-2024 11:27-0400 Body weight 62.14 kg Pst 1 [facility] 10-08-2024 11:27-0400 Diastolic blood pressure 73 mm[Hg] Pst 1 [facility] 10-08-2024 11:27-0400 Heart rate 76 /min Pst 1 [facility] 10-08-2024 11:27-0400 Respiratory rate 16 /min Pst 1 [facility] 10-08-2024 11:27-0400 SaO2% (BldA) [Mass fraction] 99 % Pst 1 [facility] 10-08-2024 11:27-0400 Systolic blood pressure 108 mm[Hg] Pst 1 [facility] 07-18-2024 10:15-0500 Diastolic blood pressure 87 mm[Hg] Roel Mosley MD Work Phone: [facility] 07-18-2024 10:15-0500 Heart rate 78 /min Roel Mosley MD Work Phone: [facility] 07-18-2024 10:15-0500 Respiratory rate 14 /min Roel Mosley MD Work Phone: [facility] 07-18-2024 10:15-0500 SaO2% (BldA) [Mass fraction] 98 % Roel Mosley MD Work Phone: [facility] 07-18-2024 10:15-0500 Systolic blood pressure 127 mm[Hg] Roel Mosley MD Work Phone: [facility] 07-18-2024 09:23-0500 Body temperature 97.9 [degF] Roel Mosley MD Work Phone: [facility] 07-18-2024 07:23-0500 Body height 162.6 cm Roel Mosley MD Work Phone: [facility] 07-18-2024 07:23-0500 Body mass index (BMI) [Ratio] 22.82 kg/m2 Roel Mosley MD Work Phone: [facility] 07-18-2024 07:23-0500 Body weight 60.33 kg Roel Mosley MD Work Phone: [facility] 07-03-2024 14:26-0500 Body height 162.6 cm Roel Mosley MD Work Phone: [facility] 07-03-2024 14:26-0500 Body mass index (BMI) [Ratio] 22.83 kg/m2 Roel Mosley MD Work Phone: [facility] 07-03-2024 14:26-0500 Body weight 60.33 kg Roel Mosley MD Work Phone: [facility] 07-03-2024 14:26-0500 Diastolic blood pressure 68 mm[Hg] Roel Mosley MD Work Phone: [facility] 07-03-2024 14:26-0500 Heart rate 90 /min Roel Mosley MD Work Phone: [facility] 07-03-2024 14:26-0500 Systolic blood pressure 104 mm[Hg] Roel Mosley MD Work Phone: [facility] 05-21-2024 10:59-0500 Diastolic blood pressure 98 mm[Hg] Roel Mosley MD Work Phone: [facility] 05-21-2024 10:59-0500 Heart rate 73 /min Roel Mosley MD Work Phone: [facility] 05-21-2024 10:59-0500 Respiratory rate 15 /min Roel Mosley MD Work Phone: [facility] 05-21-2024 10:59-0500 SaO2% (BldA) [Mass fraction] 100 % Roel Mosley MD Work Phone: [facility] 05-21-2024 10:59-0500 Systolic blood pressure 123 mm[Hg] Roel Mosley MD Work Phone: [facility] 05-21-2024 10:29-0500 Body temperature 97.3 [degF] Roel Mosley MD Work Phone: [facility] 05-21-2024 08:01-0500 Body height 162.6 cm Roel Mosley MD Work Phone: [facility] 05-21-2024 08:01-0500 Body mass index (BMI) [Ratio] 22.32 kg/m2 Roel Mosley MD Work Phone: [facility] 05-21-2024 08:01-0500 Body weight 59 kg Roel Mosley MD Work Phone: [facility] 04-09-2024 11:42-0500 Diastolic blood pressure 93 mm[Hg] Roel Mosley MD Work Phone: [facility] 04-09-2024 11:42-0500 Heart rate 78 /min Roel Mosley MD Work Phone: [facility] 04-09-2024 11:42-0500 Respiratory rate 15 /min Roel Mosley MD Work Phone: [facility] 04-09-2024 11:42-0500 SaO2% (BldA) [Mass fraction] 98 % Roel Mosley MD Work Phone: [facility] 04-09-2024 11:42-0500 Systolic blood pressure 133 mm[Hg] Roel Mosley MD Work Phone: [facility] 04-09-2024 10:27-0500 Body temperature 97.5 [degF] Roel Mosley MD Work Phone: [facility] 04-09-2024 07:47-0500 Body height 162.6 cm Roel Mosley MD Work Phone: [facility] 04-09-2024 07:47-0500 Body mass index (BMI) [Ratio] 22.31 kg/m2 Roel Mosley MD Work Phone: [facility] 04-09-2024 07:47-0500 Body weight 58.97 kg Roel Mosley MD Work Phone: [facility] 12-05-2023 10:52-0400 Diastolic blood pressure 84 mm[Hg] Carlos Davis MD Work Phone: [facility] 12-05-2023 10:52-0400 Heart rate 70 /min Carlos Davis MD Work Phone: [facility] 12-05-2023 10:52-0400 Respiratory rate 18 /min Carlos Davis MD Work Phone: [facility] 12-05-2023 10:52-0400 SaO2% (BldA) [Mass fraction] 98 % Carlos Davis MD Work Phone: [facility] 12-05-2023 10:52-0400 Systolic blood pressure 121 mm[Hg] Carlos Davis MD Work Phone: [facility] 12-05-2023 10:15-0400 Body temperature 98.1 [degF] Carlos Davis MD Work Phone: [facility] 11-22-2023 09:41-0400 Body height 162.6 cm Evelia Mak MD Work Phone: [facility] 11-22-2023 09:41-0400 Body mass index (BMI) [Ratio] 22.31 kg/m2 Evelia Mak MD Work Phone: [facility] 11-22-2023 09:41-0400 Body weight 58.97 kg Evelia Mak MD Work Phone: [facility] 09-20-2023 14:17-0400 Body height 162.6 cm Evelia Mak MD Work Phone: [facility] 09-20-2023 14:17-0400 Body mass index (BMI) [Ratio] 22.66 kg/m2 Evelia Mak MD Work Phone: [facility] 09-20-2023 14:17-0400 Body weight 59.88 kg Evelia Mak MD Work Phone: [facility] 09-20-2023 14:17-0400 Diastolic blood pressure 74 mm[Hg] Evelia Mak MD Work Phone: [facility] 09-20-2023 14:17-0400 Heart rate 74 /min Evelia Mak MD Work Phone: [facility] 09-20-2023 14:17-0400 SaO2% (BldA) [Mass fraction] 98 % Evelia Mak MD Work Phone: [facility] 09-20-2023 14:17-0400 Systolic blood pressure 112 mm[Hg] Evelia Mak MD Work Phone: [facility] 09-13-2023 22:53-0400 Body temperature 98.4 [degF] No Primary Care Physician [facility] 09-13-2023 22:53-0400 Diastolic blood pressure 60 mm[Hg] No Primary Care Physician [facility] 09-13-2023 22:53-0400 Heart rate 89 /min No Primary Care Physician [facility] 09-13-2023 22:53-0400 Respiratory rate 16 /min No Primary Care Physician [facility] 09-13-2023 22:53-0400 SaO2% (BldA) [Mass fraction] 97 % No Primary Care Physician [facility] 09-13-2023 22:53-0400 Systolic blood pressure 122 mm[Hg] No Primary Care Physician [facility] 09-13-2023 17:32-0400 Body height 162.56 cm No Primary Care Physician [facility] 09-13-2023 17:32-0400 Body mass index (BMI) [Ratio] 23.1 kg/m2 No Primary Care Physician [facility] 09-13-2023 17:32-0400 Body weight 61.2 kg No Primary Care Physician [facility] 08-10-2023 23:56-0500 Body temperature 98.6 [degF] No Primary Care Physician [facility] 08-10-2023 23:56-0500 Diastolic blood pressure 75 mm[Hg] No Primary Care Physician [facility] 08-10-2023 23:56-0500 Heart rate 78 /min No Primary Care Physician [facility] 08-10-2023 23:56-0500 Respiratory rate 12 /min No Primary Care Physician [facility] 08-10-2023 23:56-0500 SaO2% (BldA) [Mass fraction] 100 % No Primary Care Physician [facility] 08-10-2023 23:56-0500 Systolic blood pressure 130 mm[Hg] No Primary Care Physician [facility] 08-10-2023 17:32-0500 Body height 162.56 cm No Primary Care Physician [facility] 08-10-2023 17:32-0500 Body mass index (BMI) [Ratio] 23.1 kg/m2 No Primary Care Physician [facility] 08-10-2023 17:32-0500 Body weight 61.23 kg No Primary Care Physician [facility] 08-10-2023 11:25-0500 Diastolic blood pressure 82 mm[Hg] Carlos Davis MD Work Phone: [facility] 08-10-2023 11:25-0500 Heart rate 77 /min Carlos Davis MD Work Phone: [facility] 08-10-2023 11:25-0500 Respiratory rate 23 /min Carlos Davis MD Work Phone: [facility] 08-10-2023 11:25-0500 SaO2% (BldA) [Mass fraction] 97 % Carlos Davis MD Work Phone: [facility] 08-10-2023 11:25-0500 Systolic blood pressure 121 mm[Hg] Carlos Davis MD Work Phone: [facility] 08-10-2023 10:25-0500 Body temperature 97.2 [degF] Carlos Davis MD Work Phone: [facility] 07-19-2023 10:25-0500 Body height 162.6 cm Evelia Mak MD Work Phone: [facility] 07-19-2023 10:25-0500 Diastolic blood pressure 78 mm[Hg] Evelia Mak MD Work Phone: [facility] 07-19-2023 10:25-0500 Heart rate 100 /min Evelia Mak MD Work Phone: [facility] 07-19-2023 10:25-0500 SaO2% (BldA) [Mass fraction] 98 % Evelia Mak MD Work Phone: [facility] 07-19-2023 10:25-0500 Systolic blood pressure 126 mm[Hg] Evelia Mak MD Work Phone: [facility] 06-02-2023 15:25-0500 Body mass index (BMI) [Ratio] 24 kg/m2 No Primary Care Physician [facility] 06-02-2023 15:25-0500 Body temperature 97.4 [degF] No Primary Care Physician [facility] 06-02-2023 15:25-0500 Body weight 63.5 kg No Primary Care Physician [facility] 06-02-2023 15:25-0500 Diastolic blood pressure 83 mm[Hg] No Primary Care Physician [facility] 06-02-2023 15:25-0500 Heart rate 95 /min No Primary Care Physician [facility] 06-02-2023 15:25-0500 Respiratory rate 18 /min No Primary Care Physician [facility] 06-02-2023 15:25-0500 SaO2% (BldA) [Mass fraction] 98 % No Primary Care Physician [facility] 06-02-2023 15:25-0500 Systolic blood pressure 138 mm[Hg] No Primary Care Physician [facility] 05-29-2023 21:25-0500 Diastolic blood pressure 85 mm[Hg] [facility] 05-29-2023 21:25-0500 Heart rate 98 /min [facility] 05-29-2023 21:25-0500 Respiratory rate 22 /min [facility] 05-29-2023 21:25-0500 SaO2% (BldA) [Mass fraction] 100 % [facility] 05-29-2023 21:25-0500 Systolic blood pressure 136 mm[Hg] [facility] 05-29-2023 19:03-0500 Body height 162.56 cm [facility] 05-29-2023 19:03-0500 Body mass index (BMI) [Ratio] 23.5 kg/m2 [facility] 05-29-2023 19:03-0500 Body temperature 97.5 [degF] [facility] 05-29-2023 19:03-0500 Body weight 62.14 kg [facility] 05-09-2023 19:30-0500 Diastolic blood pressure 100 mm[Hg] [facility] 05-09-2023 19:30-0500 Heart rate 103 /min [facility] 05-09-2023 19:30-0500 Respiratory rate 18 /min [facility] 05-09-2023 19:30-0500 SaO2% (BldA) [Mass fraction] 98 % [facility] 05-09-2023 19:30-0500 Systolic blood pressure 183 mm[Hg] [facility] 05-09-2023 15:14-0500 Body temperature 99.2 [degF] [facility] 05-09-2023 14:34-0500 Body height 162.56 cm [facility] 05-09-2023 14:34-0500 Body mass index (BMI) [Ratio] 24.1 kg/m2 [facility] 05-09-2023 14:34-0500 Body weight 63.8 kg [facility] 05-08-2023 13:14-0500 Diastolic blood pressure 108 mm[Hg] Haile Barriga MD Work Phone: [facility] 05-08-2023 13:14-0500 Heart rate 76 /min Haile Barriga MD Work Phone: [facility] 05-08-2023 13:14-0500 Respiratory rate 14 /min Haile Barriga MD Work Phone: [facility] 05-08-2023 13:14-0500 SaO2% (BldA) [Mass fraction] 98 % Haile Barriga MD Work Phone: [facility] 05-08-2023 13:14-0500 Systolic blood pressure 168 mm[Hg] Haile Barriga MD Work Phone: [facility] 05-08-2023 08:28-0500 Body temperature 98.1 [degF] Haile Barriga MD Work Phone: [facility] 04-11-2023 05:04-0500 Diastolic blood pressure 98 mm[Hg] No Primary Care Physician [facility] 04-11-2023 05:04-0500 Heart rate 86 /min No Primary Care Physician [facility] 04-11-2023 05:04-0500 Respiratory rate 18 /min No Primary Care Physician [facility] 04-11-2023 05:04-0500 SaO2% (BldA) [Mass fraction] 99 % No Primary Care Physician [facility] 04-11-2023 05:04-0500 Systolic blood pressure 148 mm[Hg] No Primary Care Physician [facility] 04-11-2023 03:00-0500 Body height 162.56 cm No Primary Care Physician [facility] 04-11-2023 03:00-0500 Body mass index (BMI) [Ratio] 24 kg/m2 No Primary Care Physician [facility] 04-11-2023 03:00-0500 Body temperature 97.4 [degF] No Primary Care Physician [facility] 04-11-2023 03:00-0500 Body weight 63.4 kg No Primary Care Physician [facility] 02-22-2023 15:36-0400 Respiratory rate 16 /min No Primary Care Physician [facility] 02-22-2023 14:41-0400 Heart rate 72 /min No Primary Care Physician [facility] 02-22-2023 12:46-0400 Body mass index (BMI) [Ratio] 22.4 kg/m2 No Primary Care Physician [facility] 02-22-2023 12:46-0400 Body weight 59.1 kg No Primary Care Physician [facility] 02-22-2023 12:41-0400 Body height 162.56 cm No Primary Care Physician [facility] 02-22-2023 12:41-0400 Body temperature 97.1 [degF] No Primary Care Physician [facility] 02-22-2023 12:41-0400 Diastolic blood pressure 106 mm[Hg] No Primary Care Physician [facility] 02-22-2023 12:41-0400 SaO2% (BldA) [Mass fraction] 100 % No Primary Care Physician [facility] 02-22-2023 12:41-0400 Systolic blood pressure 162 mm[Hg] No Primary Care Physician [facility] 01-26-2023 09:36-0400 Body height 162.56 cm No Primary Care Physician [facility] 01-26-2023 09:34-0400 Body mass index (BMI) [Ratio] 21.4 kg/m2 No Primary Care Physician [facility] 01-26-2023 09:34-0400 Body temperature 98.5 [degF] No Primary Care Physician [facility] 01-26-2023 09:34-0400 Body weight 56.78 kg No Primary Care Physician [facility] 01-26-2023 09:34-0400 Diastolic blood pressure 81 mm[Hg] No Primary Care Physician [facility] 01-26-2023 09:34-0400 Heart rate 101 /min No Primary Care Physician [facility] 01-26-2023 09:34-0400 Respiratory rate 18 /min No Primary Care Physician [facility] 01-26-2023 09:34-0400 SaO2% (BldA) [Mass fraction] 100 % No Primary Care Physician [facility] 01-26-2023 09:34-0400 Systolic blood pressure 113 mm[Hg] No Primary Care Physician [facility] 01-18-2023 08:31-0400 Body height 162.6 cm Evelia Mak MD Work Phone: [facility] 01-18-2023 08:31-0400 Body weight 55.34 kg Evelia Mak MD Work Phone: [facility] 01-18-2023 08:31-0400 Diastolic blood pressure 79 mm[Hg] Evelia Mak MD Work Phone: [facility] 01-18-2023 08:31-0400 Heart rate 112 /min Evelia Mak MD Work Phone: [facility] 01-18-2023 08:31-0400 Systolic blood pressure 111 mm[Hg] Evelia Mak MD Work Phone: [facility] 01-04-2023 07:47-0400 Body temperature 98 [degF] No Primary Care Physician [facility] 01-04-2023 07:47-0400 Diastolic blood pressure 79 mm[Hg] No Primary Care Physician [facility] 01-04-2023 07:47-0400 Heart rate 69 /min No Primary Care Physician [facility] 01-04-2023 07:47-0400 Respiratory rate 18 /min No Primary Care Physician [facility] 01-04-2023 07:47-0400 SaO2% (BldA) [Mass fraction] 99 % No Primary Care Physician [facility] 01-04-2023 07:47-0400 Systolic blood pressure 115 mm[Hg] No Primary Care Physician [facility] 01-03-2023 04:59-0400 Body mass index (BMI) [Ratio] 21.4 kg/m2 No Primary Care Physician [facility] 01-03-2023 04:59-0400 Body weight 57.1 kg No Primary Care Physician [facility] 01-02-2023 07:22-0400 Body temperature 97.8 [degF] No Primary Care Physician [facility] 01-02-2023 07:22-0400 Diastolic blood pressure 68 mm[Hg] No Primary Care Physician [facility] 01-02-2023 07:22-0400 Heart rate 72 /min No Primary Care Physician [facility] 01-02-2023 07:22-0400 Respiratory rate 14 /min No Primary Care Physician [facility] 01-02-2023 07:22-0400 SaO2% (BldA) [Mass fraction] 100 % No Primary Care Physician [facility] 01-02-2023 07:22-0400 Systolic blood pressure 100 mm[Hg] No Primary Care Physician [facility] 01-02-2023 07:20-0400 Body height 162.56 cm No Primary Care Physician [facility] 01-02-2023 07:20-0400 Body mass index (BMI) [Ratio] 21.2 kg/m2 No Primary Care Physician [facility] 01-02-2023 07:20-0400 Body weight 56 kg No Primary Care Physician [facility] 12-29-2022 12:23-0400 Body height 162.56 cm No Primary Care Physician [facility] 12-29-2022 12:23-0400 Body mass index (BMI) [Ratio] 20.9 kg/m2 No Primary Care Physician [facility] 12-29-2022 12:23-0400 Body temperature 97.1 [degF] No Primary Care Physician [facility] 12-29-2022 12:23-0400 Body weight 55.33 kg No Primary Care Physician [facility] 12-29-2022 12:23-0400 Diastolic blood pressure 83 mm[Hg] No Primary Care Physician [facility] 12-29-2022 12:23-0400 Heart rate 98 /min No Primary Care Physician [facility] 12-29-2022 12:23-0400 Respiratory rate 18 /min No Primary Care Physician [facility] 12-29-2022 12:23-0400 SaO2% (BldA) [Mass fraction] 100 % No Primary Care Physician [facility] 12-29-2022 12:23-0400 Systolic blood pressure 104 mm[Hg] No Primary Care Physician [facility] 12-29-2022 10:33-0400 Body mass index (BMI) [Ratio] 20.9 kg/m2 No Primary Care Physician [facility] 12-29-2022 10:33-0400 Body temperature 96.8 [degF] No Primary Care Physician [facility] 12-29-2022 10:33-0400 Body weight 55.39 kg No Primary Care Physician [facility] 12-29-2022 10:33-0400 Diastolic blood pressure 76 mm[Hg] No Primary Care Physician [facility] 12-29-2022 10:33-0400 Heart rate 102 /min No Primary Care Physician [facility] 12-29-2022 10:33-0400 Respiratory rate 18 /min No Primary Care Physician [facility] 12-29-2022 10:33-0400 SaO2% (BldA) [Mass fraction] 99 % No Primary Care Physician [facility] 12-29-2022 10:33-0400 Systolic blood pressure 105 mm[Hg] No Primary Care Physician [facility] 12-21-2022 11:03-0400 SaO2% (BldA) [Mass fraction] 93 % No Primary Care Physician [facility] 12-21-2022 10:00-0400 Body temperature 98.2 [degF] No Primary Care Physician [facility] 12-21-2022 10:00-0400 Diastolic blood pressure 97 mm[Hg] No Primary Care Physician [facility] 12-21-2022 10:00-0400 Heart rate 78 /min No Primary Care Physician [facility] 12-21-2022 10:00-0400 Respiratory rate 16 /min No Primary Care Physician [facility] 12-21-2022 10:00-0400 Systolic blood pressure 109 mm[Hg] No Primary Care Physician [facility] 12-21-2022 07:49-0400 Inhaled oxygen flow rate 2 L/min No Primary Care Physician [facility] 12-19-2022 15:55-0400 Body height 162.56 cm No Primary Care Physician [facility] 12-19-2022 15:55-0400 Body weight 60.5 kg No Primary Care Physician [facility] 12-16-2022 11:21-0400 Body mass index (BMI) [Ratio] 22.8 kg/m2 No Primary Care Physician [facility] 12-14-2022 17:53-0400 Diastolic blood pressure 99 mm[Hg] No Primary Care Physician [facility] 12-14-2022 17:53-0400 Systolic blood pressure 153 mm[Hg] No Primary Care Physician [facility] 12-14-2022 16:42-0400 Body temperature 97.4 [degF] No Primary Care Physician [facility] 12-14-2022 16:42-0400 Heart rate 80 /min No Primary Care Physician [facility] 12-14-2022 16:42-0400 Respiratory rate 18 /min No Primary Care Physician [facility] 12-14-2022 16:42-0400 SaO2% (BldA) [Mass fraction] 99 % No Primary Care Physician [facility] 12-14-2022 11:22-0400 Body height 162.56 cm No Primary Care Physician [facility] 12-14-2022 11:22-0400 Body mass index (BMI) [Ratio] 22.3 kg/m2 No Primary Care Physician [facility] 12-14-2022 11:22-0400 Body weight 58.96 kg No Primary Care Physician [facility] 10-20-2022 08:21-0400 Body height 162.56 cm No Primary Care Physician [facility] 10-20-2022 08:21-0400 Body mass index (BMI) [Ratio] 22.6 kg/m2 No Primary Care Physician [facility] 10-20-2022 08:21-0400 Body temperature 97.2 [degF] No Primary Care Physician [facility] 10-20-2022 08:21-0400 Body weight 59.67 kg No Primary Care Physician [facility] 10-20-2022 08:21-0400 Diastolic blood pressure 66 mm[Hg] No Primary Care Physician [facility] 10-20-2022 08:21-0400 Heart rate 80 /min No Primary Care Physician [facility] 10-20-2022 08:21-0400 Respiratory rate 16 /min No Primary Care Physician [facility] 10-20-2022 08:21-0400 SaO2% (BldA) [Mass fraction] 95 % No Primary Care Physician [facility] 10-20-2022 08:21-0400 Systolic blood pressure 92 mm[Hg] No Primary Care Physician [facility] 10-20-2022 00:41-0400 Heart rate 89 /min No Primary Care Physician [facility] 10-20-2022 00:41-0400 Respiratory rate 16 /min No Primary Care Physician [facility] 10-20-2022 00:41-0400 SaO2% (BldA) [Mass fraction] 97 % No Primary Care Physician [facility] 10-19-2022 21:18-0400 Body height 162.56 cm No Primary Care Physician [facility] 10-19-2022 21:18-0400 Body mass index (BMI) [Ratio] 22.8 kg/m2 No Primary Care Physician [facility] 10-19-2022 21:18-0400 Body temperature 98.3 [degF] No Primary Care Physician [facility] 10-19-2022 21:18-0400 Body weight 60.2 kg No Primary Care Physician [facility] 10-19-2022 21:18-0400 Diastolic blood pressure 74 mm[Hg] No Primary Care Physician [facility] 10-19-2022 21:18-0400 Systolic blood pressure 108 mm[Hg] No Primary Care Physician [facility] 09-13-2022 09:57-0400 Body mass index (BMI) [Ratio] 22.1 kg/m2 No Primary Care Physician [facility] 09-13-2022 09:57-0400 Body temperature 98.6 [degF] No Primary Care Physician [facility] 09-13-2022 09:57-0400 Body weight 58.59 kg No Primary Care Physician [facility] 09-13-2022 09:57-0400 Diastolic blood pressure 91 mm[Hg] No Primary Care Physician [facility] 09-13-2022 09:57-0400 Heart rate 99 /min No Primary Care Physician [facility] 09-13-2022 09:57-0400 Respiratory rate 17 /min No Primary Care Physician [facility] 09-13-2022 09:57-0400 Systolic blood pressure 137 mm[Hg] No Primary Care Physician [facility] 08-23-2022 13:42-0400 Body mass index (BMI) [Ratio] 21.6 kg/m2 No Primary Care Physician [facility] 08-23-2022 13:42-0400 Body temperature 97 [degF] No Primary Care Physician [facility] 08-23-2022 13:42-0400 Body weight 57.15 kg No Primary Care Physician [facility] 08-23-2022 13:42-0400 Diastolic blood pressure 89 mm[Hg] No Primary Care Physician [facility] 08-23-2022 13:42-0400 Heart rate 103 /min No Primary Care Physician [facility] 08-23-2022 13:42-0400 Respiratory rate 18 /min No Primary Care Physician [facility] 08-23-2022 13:42-0400 SaO2% (BldA) [Mass fraction] 98 % No Primary Care Physician [facility] 08-23-2022 13:42-0400 Systolic blood pressure 108 mm[Hg] No Primary Care Physician [facility] 08-23-2022 12:53-0400 Body mass index (BMI) [Ratio] 21.6 kg/m2 No Primary Care Physician [facility] 08-23-2022 12:53-0400 Body temperature 98.5 [degF] No Primary Care Physician [facility] 08-23-2022 12:53-0400 Body weight 57.2 kg No Primary Care Physician [facility] 08-23-2022 12:53-0400 Diastolic blood pressure 77 mm[Hg] No Primary Care Physician [facility] 08-23-2022 12:53-0400 Heart rate 94 /min No Primary Care Physician [facility] 08-23-2022 12:53-0400 Respiratory rate 17 /min No Primary Care Physician [facility] 08-23-2022 12:53-0400 SaO2% (BldA) [Mass fraction] 99 % No Primary Care Physician [facility] 08-23-2022 12:53-0400 Systolic blood pressure 107 mm[Hg] No Primary Care Physician [facility] 08-05-2022 08:12-0500 Body temperature 98.2 [degF] No Primary Care Physician [facility] 08-05-2022 08:12-0500 Diastolic blood pressure 81 mm[Hg] No Primary Care Physician [facility] 08-05-2022 08:12-0500 Heart rate 65 /min No Primary Care Physician [facility] 08-05-2022 08:12-0500 Respiratory rate 14 /min No Primary Care Physician [facility] 08-05-2022 08:12-0500 SaO2% (BldA) [Mass fraction] 94 % No Primary Care Physician [facility] 08-05-2022 08:12-0500 Systolic blood pressure 125 mm[Hg] No Primary Care Physician [facility] 08-04-2022 12:26-0500 Body height 162.56 cm No Primary Care Physician [facility] 08-04-2022 12:26-0500 Body weight 61.68 kg No Primary Care Physician [facility] 07-28-2022 18:05-0500 Inhaled oxygen flow rate 2 L/min No Primary Care Physician [facility] 07-28-2022 12:09-0500 Body mass index (BMI) [Ratio] 23.3 kg/m2 No Primary Care Physician [facility] 07-28-2022 11:31-0500 Diastolic blood pressure 115 mm[Hg] No Primary Care Physician [facility] 07-28-2022 11:31-0500 Heart rate 93 /min No Primary Care Physician [facility] 07-28-2022 11:31-0500 Systolic blood pressure 168 mm[Hg] No Primary Care Physician [facility] 07-28-2022 11:30-0500 Respiratory rate 18 /min No Primary Care Physician [facility] 07-28-2022 11:30-0500 SaO2% (BldA) [Mass fraction] 97 % No Primary Care Physician [facility] 07-28-2022 10:30-0500 Body temperature 98 [degF] No Primary Care Physician [facility] 07-28-2022 06:06-0500 Body height 162.56 cm No Primary Care Physician [facility] 07-28-2022 06:06-0500 Body mass index (BMI) [Ratio] 22.8 kg/m2 No Primary Care Physician [facility] 07-28-2022 06:06-0500 Body weight 60.5 kg No Primary Care Physician [facility] 02-22-2022 15:00-0400 Body temperature 98.2 [degF] No Primary Care Physician [facility] Work Phone: 02-22-2022 15:00-0400 Diastolic blood pressure 94 mm[Hg] No Primary Care Physician [facility] Work Phone: 02-22-2022 15:00-0400 Heart rate 78 /min No Primary Care Physician [facility] Work Phone: 02-22-2022 15:00-0400 Respiratory rate 15 /min No Primary Care Physician [facility] Work Phone: 02-22-2022 15:00-0400 SaO2% (BldA) [Mass fraction] 97 % No Primary Care Physician [facility] Work Phone: 02-22-2022 15:00-0400 Systolic blood pressure 136 mm[Hg] No Primary Care Physician [facility] Work Phone: 02-21-2022 13:19-0400 Body height 162.56 cm No Primary Care Physician [facility] Work Phone: 02-21-2022 13:19-0400 Body weight 63.04 kg No Primary Care Physician [facility] Work Phone: 02-19-2022 14:19-0400 Body mass index (BMI) [Ratio] 23.8 kg/m2 No Primary Care Physician [facility] Work Phone: 01-04-2022 23:44-0400 Diastolic blood pressure 104 mm[Hg] No Primary Care Physician [facility] Work Phone: 01-04-2022 23:44-0400 Heart rate 98 /min No Primary Care Physician [facility] Work Phone: 01-04-2022 23:44-0400 Respiratory rate 17 /min No Primary Care Physician [facility] Work Phone: 01-04-2022 23:44-0400 SaO2% (BldA) [Mass fraction] 99 % No Primary Care Physician [facility] Work Phone: 01-04-2022 23:44-0400 Systolic blood pressure 163 mm[Hg] No Primary Care Physician [facility] Work Phone: 01-04-2022 21:25-0400 Body height 162.56 cm No Primary Care Physician [facility] Work Phone: 01-04-2022 21:25-0400 Body mass index (BMI) [Ratio] 23.7 kg/m2 No Primary Care Physician [facility] Work Phone: 01-04-2022 21:25-0400 Body temperature 98.4 [degF] No Primary Care Physician [facility] Work Phone: 01-04-2022 21:25-0400 Body weight 62.7 kg No Primary Care Physician [facility] Work Phone: 12-16-2021 08:21-0400 Body temperature 98 [degF] No Primary Care Physician [facility] Work Phone: 12-16-2021 08:21-0400 Diastolic blood pressure 97 mm[Hg] No Primary Care Physician [facility] Work Phone: 12-16-2021 08:21-0400 Heart rate 87 /min No Primary Care Physician [facility] Work Phone: 12-16-2021 08:21-0400 Respiratory rate 16 /min No Primary Care Physician [facility] Work Phone: 12-16-2021 08:21-0400 SaO2% (BldA) [Mass fraction] 100 % No Primary Care Physician [facility] Work Phone: 12-16-2021 08:21-0400 Systolic blood pressure 138 mm[Hg] No Primary Care Physician [facility] Work Phone: 12-14-2021 10:10-0400 Body height 162.56 cm No Primary Care Physician [facility] Work Phone: 12-14-2021 10:10-0400 Body weight 60.4 kg No Primary Care Physician [facility] Work Phone: 12-13-2021 19:07-0400 Body mass index (BMI) [Ratio] 22.8 kg/m2 No Primary Care Physician [facility] Work Phone: 12-13-2021 18:30-0400 Body temperature 98 [degF] No Primary Care Physician [facility] Work Phone: 12-13-2021 18:30-0400 Diastolic blood pressure 97 mm[Hg] No Primary Care Physician [facility] Work Phone: 12-13-2021 18:30-0400 Heart rate 111 /min No Primary Care Physician [facility] Work Phone: 12-13-2021 18:30-0400 Respiratory rate 19 /min No Primary Care Physician [facility] Work Phone: 12-13-2021 18:30-0400 SaO2% (BldA) [Mass fraction] 99 % No Primary Care Physician [facility] Work Phone: 12-13-2021 18:30-0400 Systolic blood pressure 147 mm[Hg] No Primary Care Physician [facility] Work Phone: 12-13-2021 15:04-0400 Body height 162.56 cm No Primary Care Physician [facility] Work Phone: 12-13-2021 15:04-0400 Body mass index (BMI) [Ratio] 24 kg/m2 No Primary Care Physician [facility] Work Phone: 12-13-2021 15:04-0400 Body weight 63.5 kg No Primary Care Physician [facility] Work Phone: 08-25-2021 12:39-0400 Body temperature 98 [degF] No Primary Care Physician [facility] Work Phone: 08-25-2021 12:39-0400 Diastolic blood pressure 95 mm[Hg] No Primary Care Physician [facility] Work Phone: 08-25-2021 12:39-0400 Heart rate 84 /min No Primary Care Physician [facility] Work Phone: 08-25-2021 12:39-0400 Respiratory rate 16 /min No Primary Care Physician [facility] Work Phone: 08-25-2021 12:39-0400 SaO2% (BldA) [Mass fraction] 92 % No Primary Care Physician [facility] Work Phone: 08-25-2021 12:39-0400 Systolic blood pressure 135 mm[Hg] No Primary Care Physician [facility] Work Phone: 08-25-2021 11:29-0400 Body height 162.56 cm No Primary Care Physician [facility] Work Phone: 08-25-2021 11:29-0400 Body weight 62.59 kg No Primary Care Physician [facility] Work Phone: 08-22-2021 14:28-0400 Body mass index (BMI) [Ratio] 23.6 kg/m2 No Primary Care Physician [facility] Work Phone: 08-22-2021 13:56-0400 Diastolic blood pressure 113 mm[Hg] No Primary Care Physician [facility] Work Phone: 08-22-2021 13:56-0400 Systolic blood pressure 171 mm[Hg] No Primary Care Physician [facility] Work Phone: 08-22-2021 12:46-0400 Body temperature 97.7 [degF] No Primary Care Physician [facility] Work Phone: 08-22-2021 12:46-0400 Heart rate 106 /min No Primary Care Physician [facility] Work Phone: 08-22-2021 12:46-0400 Respiratory rate 14 /min No Primary Care Physician [facility] Work Phone: 08-22-2021 12:46-0400 SaO2% (BldA) [Mass fraction] 96 % No Primary Care Physician [facility] Work Phone: 08-22-2021 10:00-0400 Body height 162.56 cm No Primary Care Physician [facility] Work Phone: 08-22-2021 10:00-0400 Body mass index (BMI) [Ratio] 24.2 kg/m2 No Primary Care Physician [facility] Work Phone: 08-22-2021 10:00-0400 Body weight 64 kg No Primary Care Physician [facility] Work Phone: Encounters Encounter Date Encounter Type Care Provider Facility Start: 02-08-2025 Non-patient / Non-visit Dr. Monika buchanan MD [facility] Work Phone: Start: 02-08-2025 End: 02-08-2025 Emergency department patient visit No Primary Care Physician -Emergency Department Work Phone: Start: 02-07-2025 End: 02-07-2025 Telephone encounter Roel Mosley MD Work Phone: [facility] Comment on above: Pancreatitis Start: 02-06-2025 End: 02-06-2025 Emergency department patient visit No Primary Care Physician -Emergency Department Work Phone: Start: 01-15-2025 End: 01-15-2025 Office outpatient visit 15 minutes Roel Mosley MD Work Phone: [facility] Comment on above: 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) (Primary Dx) Start: 01-15-2025 End: 01-15-2025 ambulatory ABDULFATAH ZAK ISSAK Facility:[facility] Start: 01-14-2025 ambulatory ABDULFATAH ABD UL ISSAK Facility:[facility] Start: 01-14-2025 End: 01-14-2025 Subsequent hospital visit by physician Alva [facility] Work Phone: Radiology Comment on above: 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) [K86.0] Start: 10-24-2024 End: 10-24-2024 [facility] Start: 10-10-2024 ambulatory ABDULFATAH ABD UL ISSAK Facility:[facility] Start: 10-10-2024 End: 10-10-2024 Subsequent hospital visit by physician Roel Mosley MD Work Phone: [facility] Comment on above: Pancreatic duct dila sg (HCC) [K86.89] Start: 10-08-2024 End: 10-08-2024 ambulatory ABDULFATAH ZAK ISSAK Facility:[facility] Start: 10-08-2024 End: 10-08-2024 Admission to establishment [facility] Pre [facility] Testing Start: 10-08-2024 End: 10-08-2024 Alcohol abuse prevention Pst 1 Pre Surgical Testing Comment on above: Pre-op exam (Primary Dx); Gastroesophageal reflux disease, unspecified whether esophagitis present; Essential hypertension; Portal vein thrombosis; Alcohol-induced chronic pancreatitis (HCC); Pancreatic duct stricture (HCC); Cigarette nicotine dependence without complication; Alcohol abuse Start: 10-08-2024 End: 10-08-2024 Preprocedural examination done Pst 1 [facility] Work Phone: Start: 09-09-2024 End: 09-09-2024 Orders Only Roel Mosley MD Work Phone: [facility] [place] Comment on above: Pancreatic duct dila sg (HCC) (Primary Dx) Appointment Start: 08-06-2024 End: 08-06-2024 Telephone encounter Rohan Hooker MD Work Phone: Ambulatory Surgery Comment on above: PreOp Call Start: 08-01-2024 End: 08-01-2024 ambulatory No Primary Care Physician Facility[place] Start: 07-18-2024 ambulatory ROEL MOSLEY Facility:[facility] Start: 07-18-2024 End: 07-18-2024 Preprocedural examination done Roel Mosley MD Work Phone: [facility] Work Phone: Start: 07-18-2024 End: 07-18-2024 Subsequent hospital visit by physician Roel Mosley MD Work Phone: [facility] Comment on above: Pancreatic duct stri cture [K86.89] Start: 07-17-2024 Preprocedural examination done Roel Mosley MD Work Phone: [facility] Start: 07-17-2024 Encounter for other preprocedural examination ROEL MOSLEY 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) (Primary Dx); Colon cancer screening Start: 06-13-2024 End: 06-13-2024 Telephone encounter Yoli Sampson APRN.CNP Work Phone: Pre Surgical Testing Comment on above: Patient Update Start: 06-10-2024 End: 06-10-2024 Telephone encounter Roel Mosley MD Work Phone: Ambulatory Surgery Comment on above: [employer] - [employer] ther Start: 05-25-2024 End: 05-25-2024 Emergency department patient visit Baron Smith Facility:[facility] Start: 05-21-2024 End: 05-21-2024 Telephone encounter oRel Mosley MD Work Phone: [facility] Start: 05-21-2024 Encounter for other preprocedural examination ROEL MOSLEY 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) [K86.0] Start: 04-10-2024 End: 04-10-2024 ambulatory Jose Francisco Clark Facility:[facility] Start: 04-09-2024 End: 04-09-2024 Telephone encounter Roel Mosley MD Work Phone: [facility] Start: 04-09-2024 ambulatory ROEL MOSLEY Facility:[facility] Start: 04-09-2024 End: 04-09-2024 Preprocedural examination done Roel Mosley MD Work Phone: [facility] Start: 04-09-2024 End: 04-09-2024 Subsequent hospital visit by physician Roel Mosley MD Work Phone: [facility] Comment on above: 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] Start: 11-27-2023 Telephone encounter Carlos kirkpatrick MD Work Phone: [facility] GASTRO DEPARTMENT Start: 11-27-2023 End: 11-27-2023 ambulatory Ivana [facility] Facility:[facility] Start: 11-22-2023 End: 11-22-2023 Office outpatient visit 25 minutes Evelia Mak MD Work Phone: [facility] SURGERY DEPARTMENT Comment on above: 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) (Primary Dx) Start: 11-22-2023 End: 11-22-2023 ambulatory EVELIA MAK Facility:[facility] Start: 11-09-2023 End: 11-09-2023 Subsequent hospital visit by physician [employer] [facility] (I-Stat/1.5t) Work Phone: Radiology Comment on above: Pancreatitis, necrot izing [K85.91] Start: 09-20-2023 End: 09-20-2023 Office outpatient visit 25 minutes Evelia Mak MD Work Phone: [facility] SURGERY DEPARTMENT Comment on above: Pancreatitis, necrot izing (Primary Dx) Start: 09-13-2023 End: 09-13-2023 Emergency department patient visit No Primary Care Physician [facility]-Emergency Department Work Phone: Start: 08-24-2023 End: 08-24-2023 ambulatory No Primary Care Physician [facility] Work Phone: Start: 08-24-2023 End: 08-24-2023 Patient encounter procedure No Primary Care Physician [facility]-Laboratory Work Phone: Start: 08-24-2023 End: 08-24-2023 ambulatory No Primary Care Physician Facility:[facility] Start: 08-10-2023 End: 08-11-2023 Emergency department patient visit No Primary Care Physician [facility]-Emergency Department Work Phone: Start: 08-10-2023 End: 08-10-2023 Subsequent hospital visit by physician Carlos Davis MD Work Phone: [facility] Comment on above: Acute on chronic miguel creatitis (HCC) [K85.90, K86.1] Start: 08-09-2023 End: 08-09-2023 ambulatory No Primary Care Physician [facility] Work Phone: Start: 08-09-2023 End: 08-09-2023 Patient encounter procedure No Primary Care Physician [facility]-Laboratory Work Phone: Start: 08-09-2023 End: 08-09-2023 ambulatory No Primary Care Physician Facility:[facility] Start: 07-26-2023 Orders Only Celine Mabry APRN.LOSS PREVENTION INVESTIGATOR Work Phone: OB/Gynecology Comment on above: Nipple discharge (Pr imary Dx) Start: 07-24-2023 Refill Evelia hoyos MD Work Phone: [facility] DEPARTMENT Comment on above: Refill Request Start: 07-19-2023 End: 07-19-2023 Office outpatient visit 25 minutes Evelia Mak MD Work Phone: [facility] DEPARTMENT Comment on above: 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 Work Phone: Start: 06-07-2023 End: 06-07-2023 Patient encounter procedure No Primary Care Physician [facility] Work Phone: Start: 06-02-2023 End: 06-02-2023 Patient encounter procedure No Primary Care Physician 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) [K86.0] Start: 04-19-2023 Orders Only Haile Barriga MD Work Phone: [facility] DEPARTMENT Comment on above: 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) (Primary Dx) Start: 04-11-2023 End: 04-11-2023 Emergency department patient visit No Primary Care Physician [facility]-Emergency Department Work Phone: Start: 02-24-2023 Telephone encounter Evelia Mak MD Work Phone: [facility] DEPARTMENT Start: 02-22-2023 End: 02-22-2023 Emergency department patient visit No Primary Care Physician [facility]-Emergency Department Work Phone: Start: 01-30-2023 Telephone encounter Gregorio Dobson MD Work Phone: [facility] [place] Comment on above: New Patient Start: 01-26-2023 Registered Recurring No Primar y Care Physician [facility] Start: 01-24-2023 Orders Only Evelia hoyos MD Work Phone: [facility] DEPARTMENT Comment on above: 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 Salamanca) Start: 01-04-2023 Non-patient / Non-visit No Maddie oleary Care Physician [facility] Work Phone: Start: 01-03-2023 End: 01-04-2023 Evaluation and management of inpatient No Primary Care Physician [facility] Surgical 3 Work Phone: Start: 01-03-2023 Non-patient / Non-visit No Maddie oleary Care Physician [facility] Start: 01-02-2023 Non-patient / Non-visit No Maddie oleary Care Physician [facility] Start: 01-02-2023 Evaluation and management of inpatient No Primary Care Physician [facility] 3 Work Phone: Start: 01-02-2023 Non-patient / Non-visit No Maddie oleary Care Physician [facility] Work Phone: Start: 01-02-2023 observation encounter No Prima ry Care Physician [facility] Work Phone: Start: 12-29-2022 End: 12-29-2022 Emergency department patient visit No Primary Care Physician [facility]-Emergency Department Work Phone: Start: 12-29-2022 Registered Recurring No Primar y Care Physician [facility] Start: 12-29-2022 End: 12-29-2022 Patient encounter procedure No Primary Care Physician [facility] Work Phone: Start: 12-21-2022 Non-patient / Non-visit No Maddie oleary Care Physician [facility] Work Phone: Start: 12-20-2022 Non-patient / Non-visit No Maddie oleary Care Physician [facility] Start: 12-20-2022 Non-patient / Non-visit No Maddie oleary Care Physician [facility] Start: 12-20-2022 Non-patient / Non-visit No Maddie anirudh Care Physician [facility] Work Phone: Start: 12-19-2022 Non-patient / Non-visit No Maddie anirudh Care Physician [facility] [facility] Work Phone: Start: 12-18-2022 Non-patient / Non-visit No Maddie oleary Care Physician [facility] [facility] Work Phone: Start: 12-17-2022 Non-patient / Non-visit No Maddie oleary Care Physician [facility] Start: 12-17-2022 Non-patient / Non-visit No Maddie oleary Care Physician [facility] [facility] Work Phone: Start: 12-16-2022 Non-patient / Non-visit No Maddie [place] Physician [facility] Start: 12-16-2022 Non-patient / Non-visit No Maddie oleary Care Physician [facility] [facility] Work Phone: Start: 12-16-2022 End: 12-16-2022 Non-patient / Non-visit No Primary Care Physician [facility] [facility] Work Phone: Start: 12-15-2022 Non-patient / Non-visit No Maddie [place] Physician [facility] Start: 12-15-2022 Non-patient / Non-visit No Maddie Aelxander Physician [facility] [facility] Work Phone: Start: 12-14-2022 Non-patient / Non-visit No Maddie oleary Care Physician [facility] [facility] Work Phone: Start: 12-14-2022 End: 12-21-2022 Evaluation and management of inpatient No Primary Care Physician [facility]Medical Surgical 3 Work Phone: Start: 12-01-2022 End: 12-01-2022 ambulatory No Primary Care Physician [facility] Work Phone: Start: 12-01-2022 End: 12-01-2022 Patient encounter procedure No Primary Care Physician [facility] Work Phone: Start: 10-20-2022 End: 10-20-2022 Patient encounter procedure No Primary Care Physician [facility] [facility] Work Phone: Start: 10-19-2022 End: 10-20-2022 Emergency department patient visit No Primary Care Physician [facility]Emergency Department Start: 10-19-2022 Registered Recurring No Primar y Care Physician [facility] Oncology Start: 09-13-2022 End: 09-13-2022 Patient encounter procedure No Primary Care Physician [facility] Start: 08-23-2022 End: 08-23-2022 Emergency department patient visit No Primary Care Physician [facility]Emergency Department Start: 08-23-2022 End: 08-23-2022 Patient encounter procedure No Primary Care Physician [facility] Start: 08-10-2022 End: 08-10-2022 Patient encounter procedure No Primary Care Physician [facility] Gastroenterology Start: 08-05-2022 Non-patient / Non-visit No Maddie oleary Care Physician [facility] Inpatient Physicians Start: 08-04-2022 Non-patient / Non-visit No Maddie anirudh Care Physician [facility] Inpatient [facility] Start: 08-03-2022 Non-patient / Non-visit No Maddie anirudh Care Physician [facility] Start: 08-03-2022 Non-patient / Non-visit No Maddie anirudh Care Physician [facility] In[facility] Start: 08-02-2022 Non-patient / Non-visit No Maddie anirudh Care Physician [facility] Start: 08-02-2022 Non-patient / Non-visit No Maddie [facility]ud[facility] Start: 08-02-2022 Non-patient / Non-visit No Maddie anirudh Care Physician [facility] In[facility]icians Start: 08-01-2022 Non-patient / Non-visit No Maddie anirudh Care Physician [facility] Start: 08-01-2022 Non-patient / Non-visit No Maddie anirudh Care Physician [facility] In[facility] Start: 07-31-2022 Non-patient / Non-visit No Maddie anirudh Care Physician [facility] Start: 07-31-2022 Non-patient / Non-visit No Maddie oleary Care Physician [facility] Start: 07-30-2022 Non-patient / Non-visit No Maddie oleary Care Physician [facility] Start: 07-30-2022 Non-patient / Non-visit No Maddie oleary Care Physician [facility] Start: 07-29-2022 Non-patient / Non-visit No Maddie oleary Care Physician [facility] Start: 07-29-2022 Non-patient / Non-visit No Maddie oleary Care Physician [facility] Start: 07-28-2022 End: 07-28-2022 Non-patient / Non-visit No Primary Care Physician [facility] Heart Group Start: 07-28-2022 Non-patient / Non-visit No Maddie oleary Care Physician [facility] In[facility]icians Start: 07-28-2022 End: 08-05-2022 Evaluation and management of inpatient No [facility] Start: 03-24-2022 Telephone encounter Cecelia Fontenot APRN.CNP Work Phone: Internal Medicine [place] Comment on above: Patient Update Start: 02-22-2022 Non-patient / Non-visit No Maddie oleary Care Physician [facility] Start: 02-21-2022 Non-patient / Non-visit No Maddie anirudh Care Physician [facility] Start: 02-20-2022 Non-patient / Non-visit No Maddie anirudh Care Physician [facility] Start: 02-19-2022 Non-patient / Non-visit No Maddie anirudh Care Physician [facility] Start: 02-19-2022 End: 02-22-2022 Evaluation and management of inpatient No [facility] Start: 01-04-2022 End: 01-05-2022 Emergency department patient visit No Primary Care Physician [facility]Emergency Department Start: 12-16-2021 Non-patient / Non-visit No Maddie oleary Care Physician [facility] Start: 12-15-2021 Non-patient / Non-visit No Maddie oleary Care Physician [facility] Start: 12-14-2021 Non-patient / Non-visit No Maddie oleary Care Physician [facility] Start: 12-13-2021 Non-patient / Non-visit No Maddie oleary Care Physician [facility] Start: 12-13-2021 End: 12-16-2021 Evaluation and management of inpatient No Primary Care Physician [facility] Surgical 3 Start: 08-25-2021 Non-patient / Non-visit No Maddie [place] Physician [facility] Start: 08-24-2021 Non-patient / Non-visit No Maddie oleary Care Physician [facility] Start: 08-23-2021 Non-patient / Non-visit No Maddie oleary Care Physician [facility] Start: 08-22-2021 Non-patient / Non-visit No Maddie oleary Care Physician [facility] Start: 08-22-2021 End: 08-25-2021 Evaluation and management of inpatient No Primary Care Physician [facility] Surgical 3 Start: 11-02-2016 End: 11-02-2016 Emergency department patient visit WILFRIDO [facility]O [facility] Procedures Date Procedure Procedure Detail Performing Clinician Start: 02-08-2025 Computed tomography of abdomen and pelvis with intravenous contrast No Primary Care Physician Start: 02-08-2025 Estimated creatinine clearance No Primar y Care Physician Start: 02-06-2025 Computed tomography of abdomen and [...] Start: 12-05-2023 Urine test visual color cmprsn johns Carlos Davis MD Work Phone: Start: 09-13-2023 Computed tomography of abdomen and pelvis with intravenous contrast No Primary Care Physician Start: 08-10-2023 CT of chest and abdomen No Primary Care Physician Start: 08-10-2023 Urine test visual color cmprsn rudy Sears COUNSELING DIRECTOR.LOSS PREVENTION INVESTIGATOR Work Phone: Start: 08-10-2023 Ercp dx collection specimen brushing/washing Kylee Caputo MA Start: 05-09-2023 Computed tomography of abdomen and pelvis with intravenous contrast Start: 05-08-2023 Esophagoscp rig transoral hypopharynx crv norman Barriga MD Work Phone: Start: 05-08-2023 Urine test visual color cmprsn rudy Sampson COUNSELING DIRECTOR.LOSS PREVENTION INVESTIGATOR Work Phone: Start: 02-22-2023 US scan of [...] Care Physician Respiratory Panel (PCR) No P [facility] Care Physician Plan of Treatment Date Care Activity Detail Author Start: 07-24-2026 Diabetes Screening Diabetes Screening [facility] Start: 10-08-2025 BP Controlled (<130/80) BP Controlled (<130/80) [facility] Start: 07-23-2025 End: 07-23-2025 Patient encounter procedure 07/23/2025 1:30 PM EST Office Visit [facility]astro[facility]ology [facility] [address] Roel Mosley MD [address] [place], [place] [address] [address] 6 month follow up Gastroenterology [facility] Comment on above: 6 month follow up Start: 07-03-2025 BP Controlled (<130/80) BP Controlled (<130/80) [facility] Start: 02-08-2025 Hospital admission, emergency, from emergency room, medical nature [facility] Start: 02-08-2025 Admission procedure [facility] Start: 02-06-2025 [facility] Start: 02-03-2025 Influenza vaccination [facility] Start: 01-15-2025 End: 04-15-2025 Hepatic function 2000 panel - Serum or Plasma HEPATIC FUNCTION PNL Lab Routine Alcohol-induced chronic pancreatitis (HCC) Expected: 01/15/2025, Expires: 04/15/2025 [facility] Comment on above: Expected: 01/15/2025, Expires: Start: 01-15-2025 End: 01-15-2025 Patient encounter procedure 01/15/2025 2:00 PM EDT Office Visit Gastroenterology [facility] [address] [phone] Roel Mosley MD [address] [facility] [place] [address] 3 month follow up Gastroenterlinda [facility] Comment on above: 3 month follow up Start: 10-10-2024 End: 10-10-2024 Patient encounter procedure 10/10/2024 8:00 AM EDT Appointment [facility] [address] [place] [address] Roel Mosley MD [address] [place], [place] [phone] ERCP w/stent exchange, not on any blood thinner or diabetic meds to stop [facility] Comment on above: ERCP w/stent exchange, not on any blood thinner or diabetic meds to stop Start: 10-03-2024 End: 10-03-2024 ambulatory 10/03/2024 11:20 AM EDT PAT Pre Surgical Testing [address] [place] [address] ERCP WITH STENT CHANGE IN ENDO ON 10/10 Pre Surgical Testing Comment on above: ERCP WITH STENT CHANGE IN ENDO ON 10/10 Start: 09-20-2024 End: 09-20-2024 Patient encounter procedure 09/20/2024 3:00 PM EDT Office Visit Gastroenterology [facility] [address] [place] [address] Roel Mosley MD [address] [place], [place] [phone] follow up for pancreatitis [facility] [place] Comment on above: follow up for pancreatitis Start: 09-19-2024 BP Controlled (<130/80) BP Controlled (<130/80) [facility] Start: 08-13-2024 End: 08-13-2024 Patient encounter procedure 08/13/2024 2:45 PM EDT Appointment Ambulatory Surgery [address] [place] [address] Rohan Hooker MD [address] [place] [address] Colon cancer screening [Z12.11] Ambulatory Surgery Comment on above: Colon cancer screening [Z12.11] Start: 07-25-2024 End: 07-25-2024 Anesthesia consultation 07/25/2024 11:59 PM EST Anesthesia Event Ambulatory Surgery [address] [place] [phone] Vanessa Camp APRN.RENAL SOCIAL WORKER [address] [place] [address] Ambulatory Surgery Start: 07-19-2024 BP Controlled (<130/80) BP Controlled (<130/80) [facility] Start: 07-18-2024 End: 07-18-2024 Patient encounter procedure 07/18/2024 8:00 AM EST Appointment [facility] [address] [place] [address] ERCP, pt has appt 07/03 for H&P, not on any blood thinners or diabetic meds that need stopped [facility] Comment on above: ERCP, pt has appt 07/03 for H&P, not on a ny blood thinners or diabetic meds that need stopped Start: 07-09-2024 ambulatory 07/09/2024 GI Preprocedure Call Pre Surgical Testing [address] [place] [address] Roel Mosley MD [address] [place] [address] Pre Surgical Testing Start: 07-09-2024 End: 07-09-2024 Patient encounter procedure 07/09/2024 9:00 AM EST Appointment [facility] [address] [place] [address] [facility] Start: 07-03-2024 End: 07-03-2024 Patient encounter procedure 07/03/2024 3:00 PM EST Office Visit Gastroenterology [facility] [place] [phone] Roel Mosley MD [address] [place], [place] [phone] needs seen before her next ercp Gastroenterology [facility] Comment on above: needs seen before her next ercp Start: 07-03-2024 End: 10-02-2024 Hepatic function 2000 panel - Serum or Plasma [facility] Comment on above: Expected: 07/03/2024, Expires: Start: 06-20-2024 End: 06-20-2024 ambulatory 06/20/2024 10:40 AM EST PAT Pre Surgical Testing [address] [place] [address] ERCP Pre Surgical Testing Comment on above: ERCP Start: 2024 Lipid panel Lipid Screening [facility] Start: 2024 Screening for malignant neoplasm of colon [facility] Start: 06-13-2024 End: 06-13-2024 ambulatory 06/13/2024 8:00 AM EST PAT Pre Surgical Testing [address] [place] [address] ERCP Pre Surgical Testing Comment on above: ERCP Start: 04-10-2024 End: 04-10-2024 Patient encounter procedure 04/10/2024 9:00 AM EST Appointment [facility] [address] [place] [address] PST SCHEDULED FOR 04/03 AT 1000 [facility] Comment on above: PST SCHEDULED FOR 04/03 AT 1000 [facility] [place] Start: 04-09-2024 End: 04-09-2024 Patient encounter procedure 04/09/2024 8:00 AM EST Appointment [facility] [address] [place] [address] PST SCHEDULED FOR 04/03 AT 1000 [facility] Comment on above: PST SCHEDULED FOR 04/03 AT 1000 IN [place] Start: 04-03-2024 End: 04-03-2024 ambulatory 04/03/2024 10:00 AM EDT PAT Pre Surgical Testing [address] [place] [address] ERCP Pre Surgical Testing Comment on above: ERCP Start: 03-06-2024 End: 12-04-2024 ERCP ERCP Endoscopy Routine Biliary stricture Expected: 03/06/2024, Expires: 12/04/2024 [facility] Work Phone: Comment on above: Expected: 03/06/2024, Expires: Start: 02-04-2024 Covid-19 Vaccine () Covid-19 Vaccine () [facility] Start: 02-04-2024 Influenza vaccination [facility] Start: 01-19-2024 BP Controlled (<130/80) BP Controlled (<130/80) [facility] Start: 12-05-2023 End: 12-05-2023 Patient encounter procedure 12/05/2023 8:00 AM EDT Appointment [facility] [address] [place] [address] Carlos Davis MD [address] [place] [address] [facility] Start: 11-22-2023 End: 11-22-2023 Patient encounter procedure 11/22/2023 10:00 AM EDT Office Visit [facility] 1 [facility] 3rd Floor [place], [place] [phone] Evelia Mak MD [address] [place] [address] F/U MRI [facility] SURGERY DEPARTMENT Comment on above: F/U MRI Start: 10-19-2023 End: 10-19-2023 Patient encounter procedure 10/19/2023 10:40 AM EDT Appointment Radiology [address] [place] [address] MRI PANC/BRYAN WO/W IVCON Radiology Comment on above: MRI PANC/BRYAN WO/W IVCON Start: 09-13-2023 [facility] Start: 08-10-2023 [facility] Start: 08-09-2023 Procedure [facility] Start: 06-05-2023 Behavioral Health Screening Behavioral Health Screening [facility] Start: 06-05-2023 Depression Assessment Depression Assessment [facility] Start: 05-29-2023 Incision & drainage abscess simple/single I&D ABSCESS SIMPLE/SINGLE [facility] Start: 05-09-2023 [facility] Start: 05-08-2023 End: 04-19-2024 EGD - THERAPEUTIC, EUS, OR TUBE INTERVENTIONS EGD - THERAPEUTIC, EUS, OR TUBE INTERVENTIONS Endoscopy Routine Alcohol-induced chronic pancreatitis (HCC) Expected: 05/08/2023, Expires: 04/19/2024 [facility] Work Phone: Comment on above: Expected: 05/08/2023, Expires: 4 Start: 04-11-2023 End: 04-11-2023 [facility] Start: 02-03-2023 Covid-19 Vaccine ( season) Covid-19 Vaccine ( season) [facility] Start: 02-03-2023 Influenza vaccination [facility] Start: 01-18-2023 End: 03-20-2023 CBC W Auto Differential panel - Blood CBC + DIFF Lab Routine Alcohol-induced chronic pancreatitis (HCC) Expected: 01/18/2023, Expires: 03/20/2023 [facility] Work Phone: Comment on above: Expected: 01/18/2023, Expires: 3 Start: 01-18-2023 End: 03-20-2023 Comprehensive metabolic 2000 panel - Serum or Plasma COMP METABOLIC PANEL Lab Routine Alcohol-induced chronic pancreatitis (HCC) Expected: 01/18/2023, Expires: 03/20/2023 [facility] Work Phone: Comment on above: Expected: 01/18/2023, Expires: 3 Start: 01-05-2023 [facility] Start: 01-04-2023 Patient discharge [facility] Start: 01-04-2023 Provision of activity privileges [facility] Start: 01-04-2023 [facility] Start: 01-03-2023 Admission procedure [facility] Start: 01-03-2023 [facility] Start: 01-02-2023 [facility] Start: 01-02-2023 Catheterization of vein [facility] Start: 01-02-2023 Referral to general surgeon [facility] Start: 01-02-2023 Following clinical pathway protocol [facility] Start: 01-02-2023 Assessment of risk of venous thromboembolism [facility] Start: 01-02-2023 Inhalation therapy procedure [facility] Start: 01-02-2023 Insertion of catheter into peripheral vein [facility] Start: 01-02-2023 Introduction of urinary catheter [facility] Start: 01-02-2023 Measuring intake and output [facility] Start: 01-02-2023 Oxygen therapy [facility] Start: 01-02-2023 Providing care according to standard [facility] Start: 01-02-2023 Provision of activity privileges [facility] Start: 01-02-2023 Referral to gastroenterology service [facility] Start: 01-02-2023 Referral to service [facility] Start: 01-02-2023 Tobacco use cessation education [facility] Start: 01-02-2023 [facility] Start: 01-02-2023 Admission procedure [facility] Start: 01-02-2023 Verification routine [facility] Start: 12-21-2022 Patient discharge [facility] Start: 12-21-2022 Plain chest X-ray Chest PA and Lateral [facility] Start: 12-21-2022 XR Chest PA and Lateral [facility] Start: 12-20-2022 Dietary regime [facility] Start: 12-20-2022 Catheterization of vein [facility] Start: 12-20-2022 Oxygen therapy [facility] Start: 12-20-2022 Vital signs measurements [facility] Start: 12-19-2022 [facility] Start: 12-18-2022 [facility] Start: 12-17-2022 Physiotherapy of chest [facility] Start: 12-16-2022 Catheterization of vein [facility] Start: 12-15-2022 Referral to gastroenterology service [facility] Start: 12-15-2022 [facility] Start: 12-14-2022 Ambulation without limitation [facility] Start: 12-14-2022 Assessment of risk of venous thromboembolism [facility] Start: 12-14-2022 Insertion of catheter into peripheral vein [facility] Start: 12-14-2022 Providing care according to standard [facility] Start: 12-14-2022 [facility] Start: 12-14-2022 Following clinical pathway protocol [facility] Start: 12-14-2022 US scan of gallbladder Gallbladder [facility] Start: 12-14-2022 Verification routine [facility] Start: 12-14-2022 Admission procedure [facility] Start: 10-19-2022 [facility] Start: 08-05-2022 Patient discharge [facility] Start: 08-04-2022 [facility] Start: 08-03-2022 [facility] Start: 08-03-2022 Elevation of head of bed [facility] Start: 08-03-2022 Patient education [facility] Start: 08-03-2022 [facility] Start: 08-02-2022 Consultation [facility] Start: 07-31-2022 [facility] Start: 07-28-2022 Following clinical pathway protocol [facility] Start: 07-28-2022 Assessment of risk of venous thromboembolism [facility] Start: 07-28-2022 Inhalation therapy procedure [facility] Start: 07-28-2022 Insertion of catheter into peripheral vein [facility] Start: 07-28-2022 Procedure [facility] Start: 07-28-2022 Providing care according to standard [facility] Start: 07-28-2022 Referral to gastroenterology service [facility] Start: 07-28-2022 Referral to service [facility] Start: 07-28-2022 Factor V Leiden genotype [facility] Start: 07-28-2022 End: 07-28-2022 [facility] Start: 07-28-2022 Magnetic resonance cholangiopancreatography MRCP Abdomen without Contrast [facility] Start: 07-28-2022 Verification routine [facility] Start: 07-28-2022 Admission procedure [facility] Start: 07-28-2022 [facility] Start: 06-05-2022 DEPRESSION ASSESSMENT DEPRESSION ASSESSMENT [facility] Start: 02-22-2022 Patient discharge [facility] Work Phone: Start: 02-20-2022 [facility] Work Phone: Start: 02-19-2022 Following clinical pathway protocol [facility] Work Phone: Start: 02-19-2022 Ambulation without limitation [facility] Work Phone: Start: 02-19-2022 Assessment of risk of venous thromboembolism [facility] Work Phone: Start: 02-19-2022 Insertion of catheter into peripheral vein [facility] Work Phone: Start: 02-19-2022 Providing care according to standard [facility] Work Phone: Start: 02-19-2022 [facility] Work Phone: Start: 02-19-2022 Admission procedure [facility] Work Phone: Start: 02-03-2022 Influenza vaccination INFLUENZA (#1) [facility] Start: 12-16-2021 Patient discharge [facility] Work Phone: Start: 12-15-2021 Care planning and problem solving actions [facility] Work Phone: Start: 12-14-2021 Consultation [facility] Work Phone: Start: 12-13-2021 Notification of physician [facility] Work Phone: Start: 12-13-2021 Vital signs measurements [facility] Work Phone: Start: 12-13-2021 Ambulation without limitation [facility] Work Phone: Start: 12-13-2021 Assessment of risk of venous thromboembolism [facility] Work Phone: Start: 12-13-2021 Insertion of catheter into peripheral vein [facility] Work Phone: Start: 12-13-2021 Providing care according to standard [facility] Work Phone: Start: 12-13-2021 End: 12-13-2021 [facility] Work Phone: Start: 12-13-2021 Following clinical pathway protocol [facility] Work Phone: Start: 12-13-2021 Verification routine [facility] Work Phone: Start: 12-13-2021 Admission procedure [facility] Work Phone: Start: 12-13-2021 Patient referral to dietitian [facility] Work Phone: Start: 08-25-2021 Patient discharge [facility] Work Phone: Start: 08-22-2021 [facility] Work Phone: Start: 08-22-2021 Consultation [facility] Work Phone: Start: 08-22-2021 [facility] Work Phone: Start: 08-22-2021 Following clinical pathway protocol [facility] Work Phone: Start: 08-22-2021 Assessment of risk of venous thromboembolism [facility] Work Phone: Start: 08-22-2021 Catheterization of vein [facility] Work Phone: Start: 08-22-2021 Inhalation therapy procedure [facility] Work Phone: Start: 08-22-2021 Insertion of catheter into peripheral vein [facility] Work Phone: Start: 08-22-2021 Measuring intake and output [facility] Work Phone: Start: 08-22-2021 Notification of physician [facility] Work Phone: Start: 08-22-2021 Patient referral to dietitian [facility] Work Phone: Start: 08-22-2021 Providing care according to standard [facility] Work Phone: Start: 08-22-2021 Provision of activity privileges [facility] Work Phone: Start: 08-22-2021 Referral to service [facility] Work Phone: Start: 08-22-2021 Vital signs measurements [facility] Work Phone: Start: 08-22-2021 [facility] Work Phone: Start: 08-22-2021 Computed tomography of abdomen and pelvis with intravenous contrast Abdomen/Pelvis W IV Cont ONLY [facility] Work Phone: Start: 08-22-2021 Admission procedure [facility] Work Phone: Start: 06-05-2021 DEPRESSION ASSESSMENT DEPRESSION ASSESSMENT [facility] Start: 2019 Mammography [facility] Start: 2019 Screening for malignant neoplasm of breast Mammogram Screening [facility] Start: 03-15-2012 HPV TESTING HPV TESTING [facility] Start: 03-15-2012 PAP TESTING PAP TESTING [facility] Start: 03-15-2012 Screening for malignant neoplasm of cervix [facility] Start: 2006 HPV Vaccine (1 - 3-dose SCDM series) HPV Vaccine (1 - 3-dose SCDM series) [facility] Start: 1998 Hepatitis B Vaccine (1 of 3 - 19+ 3-dose series) Hepatitis B Vaccine (1 of 3 - 19+ 3-dose series) [facility] Start: 1998 Pneumococcal vaccination Pneumococcal Vaccine (1 of 2 - PCV) [facility] Start: 1998 Urine microalbumin profile [facility] Start: 1997 Annual PCP Team Chronic Disease Visit Annual PCP Team Chronic Disease Visit [facility] Start: 1997 BP Controlled (<130/80) BP Controlled (<130/80) [facility] Start: 1997 Depression Screening Depression Screening [facility] Start: 1997 HEPATITIS C SCREENING HEPATITIS C SCREENING [facility] Start: 1997 Hepatitis C screening Hepatitis C Screening [facility] Start: 1997 HIV SCREENING HIV SCREENING [facility] Start: 1997 HIV screening HIV Screening [facility] Start: 1985 PNEUMOCOCCAL (1 - PCV) PNEUMOCOCCAL (1 - PCV) [facility] Start: 1985 Pneumococcal vaccination [facility] Start: 1979 COVID-19 VACCINE (#1) COVID-19 VACCINE (#1) [facility] Start: 1979 HEPATITIS B (1 of 3 - 3-dose series) HEPATITIS B (1 of 3 - 3-dose series) [facility] Start: 1979 Hepatitis B Vaccine (1 of 3 - 3-dose series) Hepatitis B Vaccine (1 of 3 - 3-dose series) [facility] Alanine aminotransfe rase [Enzymatic activity/volume] in Serum or Plasma [facility] Alanine aminotransfe rase [Enzymatic activity/volume] in Serum or Plasma [facility] Albumin [Mass/volume ] in Serum or Plasma [facility] Albumin [Mass/volume ] in Serum or Plasma [facility] Alkaline phosphatase [Enzymatic activity/volume] in Serum or Plasma [facility] Alkaline phosphatase [Enzymatic activity/volume] in Serum or Plasma [facility] Amphetamines [Presen ce] in Urine by Screen method >1000 ng/mL [facility] Anion gap measurement [facility] Anion gap measurement [facility] Antithrombin III assay [facility] Antithrombin III ass ay, functional [facility] Aspartate aminotrans ferase [Enzymatic activity/volume] in Serum or Plasma [facility] Aspartate aminotrans ferase [Enzymatic activity/volume] in Serum or Plasma [facility] Bacteria identified in Urine by Culture Urine Culture [facility] Benzodiazepine measu rement, urine [facility] Beta 2 glycoprotein 1 IgA Ab [Presence] in Serum [facility] Beta 2 glycoprotein 1 IgG Ab [Presence] in Serum [facility] Beta 2 glycoprotein 1 IgM Ab [Presence] in Serum [facility] Bilirubin, total measurement [facility] Bilirubin, total measurement [facility] BUN/Creatinine ratio [facility] BUN/Creatinine ratio [facility] Calcium [Mass/volume ] in Serum or Plasma [facility] Calcium [Mass/volume ] in Serum or Plasma [facility] Calprotectin [Mass/m ass] in Stool CALPROTECTIN,FECAL Lab Routine Alcohol-induced chronic pancreatitis (HCC) Ordered: 01/15/2025 [facility] Work Phone: Comment on above: Ordered: 01/15/2025 Carbon dioxide, tota l [Moles/volume] in Serum or Plasma [facility] Carbon dioxide, tota l [Moles/volume] in Serum or Plasma [facility] Cardiolipin IgG Ab [Units/volume] in Serum or Plasma [facility] Cardiolipin IgM Ab [Units/volume] in Serum or Plasma [facility] CBC W Auto Different ial panel - Blood [facility] CBC W Auto Different ial panel - Blood [facility] Chloride [Moles/volu me] in Serum or Plasma [facility] Chloride [Moles/volu me] in Serum or Plasma [facility] Cocaine measurement, urine [facility] Creatinine [Moles/vo lume] in Serum or Plasma [facility] Creatinine [Moles/vo lume] in Serum or Plasma [facility] CTA Abdominal vessel s WO and W contrast IV [facility] CYTOLOGY NON-CNC MAINTENANCE MECHANIC [facility] Work Phone: Comment on above: Release Upon Ordering for 1 Occurrences starting 05/08/2023, 1 completed D-dimer assay, quantitative [facility] D-dimer assay, quantitative [facility] ERCP ERCP Endoscopy Routine Gall bladder stones 05/08/2023 12:12 PM EST [facility] Work Phone: End: 08-01-2024 ERCP ERCP Endoscopy Routine Acute on chronic pancreatitis (HCC) 1 Occurrences starting 08/01/2023 until 08/01/2024 [facility] Work Phone: Comment on above: 1 Occurrences starting 08/01/2023 until 08/01/2024 End: 11-26-2024 ERCP ERCP Endoscopy Routine Common bile duct (CBD) stricture Encounter for removal of biliary stent 1 Occurrences starting 11/27/2023 until 11/26/2024 [facility] Work Phone: Comment on above: 1 Occurrences starting 11/27/2023 until 11/26/2024 End: 04-09-2025 ERCP ERCP Endoscopy Routine Alcohol-induced chronic pancreatitis (HCC) 1 Occurrences starting 04/09/2024 until 04/09/2025 [facility] Work Phone: Comment on above: 1 Occurrences starting 04/09/2024 until 04/09/2025 End: 05-21-2025 ERCP ERCP Endoscopy Routine Pancreatic duct stricture 1 Occurrences starting 05/21/2024 until 05/21/2025 [facility] Work Phone: Comment on above: 1 Occurrences starting 05/21/2024 until 05/21/2025 End: 09-09-2025 ERCP ERCP Endoscopy Routine Pancreatic duct dilated (HCC) 1 Occurrences starting 09/09/2024 until 09/09/2025 [facility] Work Phone: Comment on above: 1 Occurrences starting 09/09/2024 until 09/09/2025 F5 gene mutations fo und [Identifier] in Blood or Tissue by Molecular genetics method Nominal [facility] fentaNYL [Presence] in Urine by Screen method [facility] Glucose [Mass/volume ] in Serum or Plasma [facility] Glucose [Mass/volume ] in Serum or Plasma [facility] Hematocrit [Volume F raction] of Blood [facility] Hemoglobin [Mass/vol ume] in Blood [facility] Imaging of liver [facility] Lactate dehydrogenas e measurement [facility] Lactate dehydrogenas e measurement [facility] Leukocytes [#/volume] in Blood [facility] Magnesium [Mass/volu me] in Serum or Plasma [facility] Work Phone: Magnesium [Mass/volu me] in Serum or Plasma [facility] Mean corpuscular hem oglobin concentration determination [facility] Mean corpuscular hem oglobin determination [facility] Measurement of renal function [facility] Measurement of renal function [facility] Methadone measurement, urine [facility] Microscopic observat ion [Identifier] in Body fluid by Cyto stain [facility] Microscopic observat ion [Identifier] in Body fluid by Cyto stain [facility] Microscopic observat ion [Identifier] in Unspecified specimen by Acid fast stain [facility] End: 10-19-2024 MR Biliary ducts and Pancreatic duct WO and W contrast IV MRI PANC/BRYAN WO/W IVCON Radiology Routine Pancreatitis, necrotizing 1 Occurrences starting 09/20/2023 until 10/19/2024 [facility] Work Phone: Comment on above: 1 Occurrences starting 09/20/2023 until 10/19/2024 MR Biliary ducts and Pancreatic duct WO and W contrast IV MRI PANC/BRYAN WO/W IVCON Radiology Routine Pancreatitis, necrotizing 11/09/2023 1:51 PM EDT [facility] Work Phone: End: 10-19-2024 MR Unspecified body region 3D post processing MRI 3D POST PROCESSING Radiology Routine Pancreatitis, necrotizing 1 Occurrences starting 09/20/2023 until 10/19/2024 [facility] Comment on above: 1 Occurrences starting 09/20/2023 until 10/19/2024 MR Unspecified body region 3D post processing MRI 3D POST PROCESSING Radiology Routine Pancreatitis, necrotizing 11/09/2023 1:51 PM EDT [facility] Neutrophil count [facility] Neutrophil percent differential count [facility] PANC ELASTASE, FECAL PANC ELASTA SE, FECAL Lab Routine Alcohol-induced chronic pancreatitis (HCC) Ordered: 07/03/2024 [facility] Work Phone: Comment on above: Ordered: 07/03/2024 Partial thromboplast in time, activated [facility] Patient Education [facility] Work Phone: Patient referral [facility] Work Phone: Phencyclidine [Prese nce] in Urine [facility] Platelets [#/volume] in Blood [facility] Potassium [Moles/vol ume] in Serum or Plasma [facility] Potassium [Moles/vol ume] in Serum or Plasma [facility] Procedure [facility] Protein C [Units/vol ume] in Platelet poor plasma by Coagulation assay [facility] Protein C Ag actual/ normal in Platelet poor plasma by Immunoassay [facility] Prothrombin time [facility] Red blood cell count [facility] Red cell distributio n width determination [facility] End: 07-03-2025 Screening colonoscopy COLONOSCOPY SCREENING Endoscopy Routine Colon cancer screening 1 Occurrences starting 07/03/2024 until 07/03/2025 [facility] Comment on above: 1 Occurrences starting 07/03/2024 until 07/03/2025 Sodium [Moles/volume ] in Serum or Plasma [facility] Sodium [Moles/volume ] in Serum or Plasma [facility] SURGICAL PATHOLOGY SURGICAL PATH OLOGY Lab Routine Alcohol-induced chronic pancreatitis (HCC) Pre-op examination Essential hypertension Cigarette nicotine dependence without complication Alcohol abuse Portal vein thrombosis Gastroesophageal reflux disease, unspecified whether esophagitis present Release Upon Ordering for 1 Occurrences starting 05/08/2023 [facility] Work Phone: Comment on above: Release Upon Ordering for 1 Occurrences starting 05/08/2023 Targeted analysis fo r gene mutation [facility] Total protein measurement [facility] Total protein measurement [facility] Urea nitrogen [Mass/ volume] in Serum or Plasma [facility] Urea nitrogen [Mass/ volume] in Serum or Plasma [facility] Urine cannabinoid measurement [facility] Urine opiate measurement [facility] End: 08-24-2024 US Breast - right limited US BREAST LTD RIGHT Radiology Routine Nipple discharge 1 Occurrences starting 07/26/2023 until 08/24/2024 [facility] Work Phone: Comment on above: 1 Occurrences starting 07/26/2023 until 08/24/2024 XR Abdomen Supine and Upright XR ABDOMEN 1V SUPINE Radiology Routine Alcohol-induced chronic pancreatitis (HCC) 01/14/2025 3:39 PM EDT [facility] Work Phone: General acute hospital Payers Date Payer Category Payer Self-pay [id number] 2023 Medicaid [id number] 2022 Medicaid [id number] 2013 Unknown [id number] Unknown [id number] Unknown [id number] 2.16.8 [id number] Unknown [id number] 2.16.8 [id number] Unknown [id number] 2.16.8 [id number] Unknown [id number] 2.16.8 [id number] Unknown [id number] 2.16.8 [id number] Unknown [id number] 2.16.8 [id number] Unknown [id number] 2.16.8 [id number] Unknown [id number] 2.16.8 [id number] Unknown [id number] 2.16.8 [id number] Social History Date Type Detail Facility [facility] Work Phone: Start: 08-22-2021 End: 09-13-2023 Tobacco smoking status FLIS Unknown if ever smoked [facility] Start: 1980 Sex Assigned At Female W [facility] Start: 03-04-2011 End: 10-08-2024 Tobacco smoking status FLIS Smokes tobacco daily [facility] History of tobacco use Cigarette Smoker C [facility] Start: 03-04-2011 End: 01-18-2023 Cigarettes smoked current (pack per day) - Reported 1 [facility] Start: 03-04-2011 End: 01-15-2025 Tobacco use and exposure Smokeless tobacco non-user [facility] Start: 01-19-2022 End: 01-18-2023 Alcohol intake Current non-drinker of alcohol (finding) [facility] Start: 1980 Sex Assigned At Not on file [facility] Start: 10-28-2022 End: 01-18-2023 Tobacco use panel [facility] Start: 05-06-2012 National Score (1-100), lower number is lower risk Not on file [facility] Start: 05-08-2023 End: 01-15-2025 Alcohol intake Ex-drinker (finding) [facility] Start: 05-08-2023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 weeks, URI < 2 weeks and obstructive sleep apnea. Cardiovascular: Positive for: hypertension Negative for: atrial fibrillation, CAD, chest pain, DVT/PE and recent WA. GI: Positive for: GERD Negative for: abdominal pain, dysphagia, hepatitis, nausea, vomiting and ETOH >2 drinks/day. : Negative for: dysuria, hematuria, urinary incontinence and renal failure. 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 Diagnostic tests reviewed for [...] or any previous visit (from the past 70541 hours). 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 Patient given verbal and written preop instructions and voices comprehension and compliance. I spent a total of 40 minutes on the date of the service which included preparing to see the patient, [id number] patient care, completing clinical documentation, obtaining and/or reviewing separately obtained history, performing a medically appropriate examination, and counseling and educating the patient/family/caregiver. SIGNATURE: Tete Rendon APRN.LOSS PREVENTION INVESTIGATOR PATIENT NAME: Melva Kerns DATE: October 08, 2024 TIME: 11:20 AM PAGER/CONTACT #: documented in this encounterToledo Hospital05-05-2025 Instructions* Patient Instructions* Tete Rendon APRN.CNP - 10/07/2024 1:12 PM EDT PATIENT PREOPERATIVE INSTRUCTIONS Your surgeon has scheduled for your procedure at this surgery center: [address] [place] [address] [facility] ([facility]). 3rd Floor Endoscopy [address]- [phone] [facility]- [phone]. If you need to cancel your appointment call [phone]. Park in the outpatient services EAST parking deck attached to the [facility]. Check in at patient registration on [...] the afternoon before your surgery date, please followup with your surgeon's office. - If you are scheduled for Monday surgery, please make sure you have your arrival time by Monday afternoon. - Please be aware that emergency situations arise, which may delay or change your surgical time. Ifthis happens, your surgeon's office will notify you [...] Mobic, etc.) 7 days before surgery, or asdirected by your surgeon. You may take Tylenol (Acetaminophen) or any of your pain medications that do not contain aspirin orNSAIDS as needed. IF YOU TAKE ANY OF [...] are prescribed Marinol or any other prescription formon marijuana or CBD. Medications: Pre Surgery Med [...] surgery. - YOU MUST HAVE A RESPONSIBLE VETERINARY TECHNICIAN ASSISTANT TAKE YOU HOME. A HOSPITAL MEDICINE DIRECTOR, CAB OR UBER VETERINARY TECHNICIAN ASSISTANT CANNOT BE [place] RESPONSIBLE VETERINARY TECHNICIAN ASSISTANT. - If you are undergoing an outpatient [...] and the date of surgery. Visitation: [facility] [place] Visitation hours: 7 AM to 9 PM. [...] Advance Directive, please fax a copy to [phone] or Sherine SCHAEFER at [phone] or email to for it to be [...] into your chart that day. Tete Rendon APRN.ANETTE 10/08/24 documented in this encounterToledo Hospital04-07-2025 Telephone encounter Note * Telephone Encounter - Melva Santamaria - 09/09/2024 3:07 PM EDT Called pt to schedule ERCP with stent exchange with Dr Mosley 12 weeks after her 07/18 ERCP. Sched for 58 [facility]04-07-2025 Miscellaneous Notes* Telephone Encounter - Melva Santamaria - 09/09/2024 3:07 PM EDT Called pt to schedule ERCP with stent exchange with Dr Mosley 12 weeks after her 07/18 ERCP. Sched for 58 documented in this encounterToledo Hospital03-04-2025 Telephone encounter Note * Telephone Encounter - Ruma Torres - 08/06/2024 3:42 PM EST Pre op call - LM on VM [facility]03-04-2025 Miscellaneous Notes* Telephone Encounter - Ruma Torres - 08/06/2024 3:42 PM EST Pre op call - LM on VM documented in this encounterToledo Hospital02-13-2025 Nurse Note* Medardo Fontenot, VIVIEN - 07/18/2024 9:[address] Dominguez notified of continued pain and orders given. Encouraged to speak with physician who orders her chronic pain medication regarding procedures and discontinuing pre procedure and repeated episodes of post-op pain. Stated understanding. [facility]02-13-2025 Nurse Note* Medardo Fontenot RN - 07/18/2024 9:[address] Dominguez notified of continued pain and orders given. Encouraged to speak with physician who orders her chronic pain medication regarding procedures and discontinuing pre procedure and repeated episodes of post-op pain. Stated understanding. * Medardo Fontenot RN - 07/18/2024 9:[address] Mosley notified of continued pain and pts request for prescription for home. Wrote prescription for pt. documented in this encounterToledo Hospital02-13-2025 Nurse Note* Medardo Fontenot RN - 07/18/2024 9:[address] Mosley notified of continued pain and pts request for prescription for home. Wrote prescription for pt. [facility]02-13-2025 NoteHNO ID: [id number] Author: LOUISE FREITAS APRN.RENAL SOCIAL WORKER Service: ? Author Type: Nurse Lumber Sorter Machine Type: Anesthesia Procedure Notes Filed: 07/18/2024 08:39 Note Text: ANESTHESIOLOGY PROCEDURE NOTE Airway General Information Procedure Start Time/Medication Administration: 07/18/2024 8:15 AM Procedure End Time: 07/18/2024 8:16 AM Patient location during procedure: OR Timeout Performed Pre-procedure: timeout performed Consent Obtained: Yes Patient identity confirmed: arm band Staffing Anesthesiologist: Prakash Dominguez MD RENAL SOCIAL WORKER: Louise Freitas APRN.RENAL SOCIAL WORKER Performed by: anesthesiologist Indications and Patient Condition Indications for airway management: anesthesia and airway protection Preoxygenated: yes anesthesia circuit and Ambu Patient position: sniffing Method: asleep Cricoid Pressure: No Manual In-Line Stabilization: No Difficult Mask: No Final Airway Details Final airway type: endotracheal airway Final Endotracheal Airway: ETT Cuffed: yes Successful intubation technique: video laryngoscopy Devices used: InstallFree Endotracheal tube insertion site: oral Blade size: #3 ETT size (mm): 7.0 Measured from: lips Measurement (cm): 20 Placement verified by: chest auscultation and capnometry Cormack-Lehane Classification: grade I - full view of glottis Number of attempts at approach: 1 Failed airway: no Unrecognized esophageal intubation: no Airway not difficult SIGNATURE: Louise Freitas APRN.RENAL SOCIAL WORKER PATIENT NAME: Melva Kerns DATE: July 18, 2024 TIME: 8:37 AM CSN: [id number] Light A.R. [facility]02-13-2025 History of Present illness Narrative* Blair Aggarwal APRN.LOSS PREVENTION INVESTIGATOR - 07/18/2024 8:00 AM EST Summary: PAT HISTORY AND PHYSICAL EXAMINATION SERVICE [...] topically to CLEAN, DRY, AND INTACT SKIN REMOVEAND REPLACE weekly Yes acetaminophen (TYLENOL) 500 mg [...] which included preparing to see the patient, [id number] patient care, and completing clinical documentation. Instructions Given to Patient: Patient given verbal preop instructions and voices comprehension and compliance. SIGNATURE: Blair Aggarwal APRN.CNP PATIENT NAME: Melva Kerns DATE: July 18, 2024 TIME: 10:39 AM PAGER/CONTACT #: documented in this encounterToledo Hospital02-13-2025 NoteHNO ID: [id number] Author: BLAIR AGGARWAL APRN.CNP Service: Anesthesiology Author [...] results within date r (more content not included)...[facility]01-29-2025 Instructions* Patient Instructions* Roel Mosley MD - 07/03/2024 2:57 PM [...] with insulin, diabetic pills, or other injectable medicationsdo not take your REGULAR dose after midnight on the day of your procedure. If you are taking any other types of insulin such as Lantus, Humalog, NPH (long- acting insulin), or70/30 insulin, take half your normal dose the [...] medications (including aspirin, antibiotics, water pills / diureticslike Lasix or Metolozone, blood pressure meds, etc.) [...] no-pulp) Popsicles or hard candy BOWEL PREPARATION (GOLYTELY/NULYTELY/TRILYTE/COLYTE) Split Dosing Bowel Prep: This means drinking your bowel prep in two doses. Split dosing helps cleanyour colon better and makes it less likely [...] that slow bowel emptying (narcotics, gabapentin, anticholinergic medicationsetc.) A: Contact your physician as you will [...] am on dialysis? A: Please consult your certified massage therapist prior to scheduling to get instructions pertinent to you. In general, dialysis patients take the Golytely bowel prep and have the procedure same [...] rest of the day. documented in this encounterTol[facility]01-29-2025 NoteHNO ID: [id number] Author: ROEL MOSLEY MD Service: ? Author [...] Roel Mosley MD DATE: 07/03/24 TIME: 2:30 [facility]01-29-2025 History of Present illness Narrative* Roel Mosley MD - 07/03/2024 2:25 PM EST CHIEF COMPLAINT: Patient presents with: Recheck: Needs [...] topically to CLEAN, DRY, AND INTACT SKIN REMOVEAND REPLACE weekly acetaminophen (TYLENOL) 500 mg tablet [...] 07/03/24 TIME: 2:30 PM documented in this encounterToledo Hospital01-09-2025 Telephone encounter Note * Telephone Encounter - Yoli Sampson APRN.CNP - 06/13/2024 9:22 AM EST Pt was a no show to PST today. Alivia in surgical scheduling notified. [facility] Work Phone: [phone]) 925-921301-09-2025 Miscellaneous Notes* Telephone Encounter - Yoli Sampson APRN.CNP - 06/13/2024 9:22 AM EST Pt was a no show to PST today. Alivia in surgical scheduling notified. documented in this encounterToledo Hospital01-06-2025 Telephone encounter Note * Telephone Encounter - Ruma Torres - 06/10/2024 9:45 AM EST LM on - Dr. Mosley is requesting to see the patient in office before her 2nd ERCP - this is how he prefers it. I rescheduled her ERCP and office visit. Her pre testing appt is fine. We do not need to reschedule it. Give patient update when she calls in. Thank you. [facility]01-06-2025 Miscellaneous Notes* Telephone Encounter - Ruma Torres - 06/10/2024 9:45 AM EST LM on - Dr. Mosley is requesting to see the patient in office before her 2nd ERCP - this is how he prefers it. I rescheduled her ERCP and office visit. Her pre testing appt is fine. We do not need to reschedule it. Give patient update when she calls in. Thank you. documented in this encounterToledo Hospital12-17-2024 Nurse Note* Divya Georges RN - 05/21/2024 11:10 AM EST Pt states she is having her chronic pain and the only thing that helps her is her pain patch. Pt wants to go home at this time and denies need for further intervention for pain at this time. Dr Sanford spoke with pt and instructed her that it was ok to apply her patch as soon as she is able to getit. He also told her for the next time she has this procedure to leave patch on and notify staff onarrival. [facility]12-17-[facility] Nurse Note* Divya Georges RN - 05/21/2024 11:10 AM EST Pt states she is having her chronic pain and the only thing that helps her is her pain patch. Pt wants to go home at this time and denies need for further intervention for pain at this time. Dr Sanford spoke with pt and instructed her that it was ok to apply her patch as soon as she is able to getit. He also told her for the next time she has this procedure to leave patch on and notify staff onarrival. documented in this encounterToledo Hospital12-17-2024 NoteHNO ID: [id number] Author: DELMER OLEARY APRN.RENAL SOCIAL WORKER Service: ? Author Type: Nurse Lumber Sorter Machine Type: Anesthesia Procedure Notes Filed: 05/21/2024 09:35 Note Text: ANESTHESIOLOGY PROCEDURE NOTE Airway General Information Procedure Start Time/Medication Administration: 05/21/2024 9:24 AM Procedure End Time: 05/21/2024 9:25 AM Patient location during procedure: OR Timeout Performed Pre-procedure: timeout performed Consent Obtained: Yes Patient identity confirmed: arm band Staffing Performed by: RENAL SOCIAL WORKER Indications and Patient Condition Indications for airway [...] May 21, 2024 TIME: 9:34 AM CSN: [id number] History and physical note* Radha Sears APRN.LOSS PREVENTION INVESTIGATOR - 05/21/2024 9:00 AM EST HISTORY AND PHYSICAL EXAMINATION SERVICE DATE: 05/21/2024 [...] removed. Denies any N/V/D and constipation. Endorses 12/12 abdominal pain in the perioperative area. Surgical [...] which included preparing to see the patient, qfez-jd-wudm patient care, completing clinical documentation, obtaining and/or reviewing separately obtained history, and performing a medically appropriate examination. Instructions Given to Patient: Patient given verbal preop instructions and voices comprehension and compliance. SIGNATURE: Radha Sears APRN.CNP PATIENT NAME: Melva Kerns DATE: May 21, 2024 TIME: 7:22 AM PAGER/CONTACT #: [facility]12-17-[facility]24 History and physical note* Radha Sears APRN.CNP - 05/21/2024 9:00 AM EST HISTORY AND PHYSICAL EXAMINATION SERVICE DATE: 05/21/2024 [...] which included preparing to see the patient, irnb-sn-oydy patient care, completing clinical documentation, obtaining and/or reviewing separately obtained history, and performing a medically appropriate examination. Instructions Given to Patient: Patient given verbal preop instructions and voices comprehension and compliance. SIGNATURE: Radha Sears APRN.CNP PATIENT NAME: Melva Kerns DATE: May 21, 2024 TIME: 7:22 AM PAGER/CONTACT #: documented in this encounterCleveland [id number] NoteHNO ID: [id number] Author: MORENA AVELAR APRN.CRNA Service: ? Author Type: Nurse Lumber Sorter Machine Type: Anesthesia Procedure Notes Filed: 04/09/2024 08:28 Note Text: ANESTHESIOLOGY PROCEDURE NOTE Airway General Information Procedure Start Time/Medication Administration: 04/09/2024 8:16 AM Procedure End Time: 04/09/2024 8:16 AM Patient location during procedure: OR Timeout Performed Pre-procedure: timeout performed Consent Obtained: Yes Patient identity confirmed: arm band and patient Staffing RENAL SOCIAL WORKER: Morena Avelar APRN.RENAL SOCIAL WORKER Performed by: RENAL SOCIAL WORKER Indications and Patient Condition Indications for airway [...] no Airway not difficult SIGNATURE: Morena Avelar APRN.CRNA PATIENT NAME: Melva Krens DATE: April 09, 2024 TIME: 8:28 AM CSN: [id number], [place]11-05-2024 History and physical note* Geri Stroud APRN.LOSS PREVENTION INVESTIGATOR - 04/09/2024 8:00 AM EST HISTORY AND PHYSICAL EXAMINATION Melva Kerns 1980 [...] obtain any additional testing required based on anesthesiaguidelines. We will also identify any potential anesthesia [...] affect the ivory-operative course were addressed in thevisit today. PLAN Procedure Diagnosis: Biliary stricture [K83.1] Planned Procedure: ERCP Planned Anesthetic: MAC I spent a total of 20 minutes on the date of the service which included preparing to see the patient, qbuf-yw-gfnq patient care, completing clinical documentation, obtaining and/or reviewing separately obtained history, and performing a medically appropriate examination. SIGNATURE: Geri Stroud APRN.CNP PATIENT NAME: Melva Kerns DATE: April 09, 2024 TIME: 7:28 AM PAGER/CONTACT #: [facility]11-05-[facility] History and physical note* Geri Stroud APRN.CNP - 04/09/2024 8:00 AM EST HISTORY AND PHYSICAL EXAMINATION Melva Kerns 1980 [...] obtain any additional testing required based on anesthesiaguidelines. We will also identify any potential anesthesia [...] affect the ivory-operative course were addressed in thevisit today. 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 SIGNATURE: Geri Stroud APRN.LOSS PREVENTION INVESTIGATOR PATIENT NAME: Melva Kerns DATE: April 09, 2024 TIME: 7:28 AM PAGER/CONTACT #: documented in this encounterToledo Hospital10-30-2024 Telephone encounter Note * Telephone Encounter - Yue Marcum APRN.ANETTE - 04/03/2024 4:17 PM EDT Summary: PAT no show Patient no-show to PAT today. Email communication sent to schedulers. Patient will need to be rescheduled. Patient is scheduled for surgery with Dr. Davis on 04/10/2024 @ [facility] Work Phone: [phone] Miscellaneous Notes* Telephone Encounter - Yue Marcum APRN.CNP - 04/03/2024 4:17 PM EDTSummary: PAT no show Patient no-show to PAT today. Email communication sent to schedulers. Patient will need to be rescheduled. Patient is scheduled for surgery with Dr. Davis on 04/10/2024 @ [facility] documented in this encounterToledo Hospital07-22-2024 Telephone encounter Note * Telephone Encounter - Connie Fink - 12/25/2023 11:16 AM EDT Surgery Checklist Type: Ercp Admission Type: outpatient Anesthesia: MAC Date: 04/10/24 Arrival Time: 8:00 Surgery Time: 9:00 Location: [facility] Patient mailed prep instructions Connie Fink [facility]07-22-2024 Miscellaneous Notes* Telephone Encounter - Connie Fink - 12/25/2023 11:16 AM EDT Surgery Checklist Type: Ercp Admission Type: outpatient Anesthesia: MAC Date: 04/10/24 Arrival Time: 8:00 Surgery Time: 9:00 Location: [facility] Patient mailed prep instructions Connie Fink documented in this encounterToledo Hospital07-03-2024 Telephone encounter Note * Telephone Encounter - Connie Fink - 12/06/2023 7:38 AM EDT ----- Message from Carlos Davis MD sent at 12/05/2023 9:28 AM EDT ----- Regarding: ERCP Plz schedule ERCP in 3-4 months with me. Thanks [facility]07-03-2024 Miscellaneous Notes* Telephone Encounter - Connie Fink - 12/06/2023 7:38 AM EDT ----- Message from Carlos Davis MD sent at 12/05/2023 9:28 AM EDT ----- Regarding: ERCP Plz schedule ERCP in 3-4 months with me. Thanks documented in this encounterToledo Hospital07-02-2024 NoteHNO ID: [id number] Author: LY ABDALLA APRN.RENAL SOCIAL WORKER Service: Anesthesiology Author Type: Nurse Lumber Sorter Machine Type: Anesthesia Procedure Notes Filed: 12/05/2023 08:37 Note Text: ANESTHESIOLOGY PROCEDURE NOTE Airway General Information Procedure Start Time/Medication Administration: 12/05/2023 8:19 AM Procedure End Time: 12/05/2023 8:21 AM Patient location during procedure: OR Timeout Performed Pre-procedure: timeout performed Consent Obtained: Yes Patient identity confirmed: arm band Staffing RENAL SOCIAL WORKER: Ly Abdalla APRN.RENAL SOCIAL WORKER Performed by: RENAL SOCIAL WORKER Indications and Patient Condition Indications for airway [...] 1 Airway not difficult SIGNATURE: Ly Abdalla APRN.RENAL SOCIAL WORKER PATIENT NAME: Melva Kerns DATE: December 05, 2023 TIME: 8:36 AM CSN: [id number] [facility]07-02-[facility] History of Present illness Narrative* Geri Stroud APRN.LOSS PREVENTION INVESTIGATOR - 12/05/2023 8:00 AM EDT H&P completed by Evelia Mak MD at 11/22/2023 12:41 PM documented in this encounterToledo Hospital07-02-2024 NoteHNO ID: [id number] Author: GERI STROUD APRN.CNP Service: Anesthesiology Author Type: Nurse Practitioner Type: Progress Notes Filed: 12/05/2023 07:25 Note Text: HANDP completed by Evelia Mak MD at 11/22/2023 12:41 [facility]06-24-2024 Note* Addendum Note - Connie Fink - 11/27/2023 1:21 PM EDTAddended by: CONNIE FINK on: 11/27/2023 01:21 PM Modules accepted: Orders [facility]06-24-2024 Miscellaneous Notes* Addendum Note - Connie Fink - 11/27/2023 1:21 PM EDTAddended by: CONNIE FINK on: 11/27/2023 01:21 PM Modules accepted: Orders * Telephone Encounter - Melva Dennis PA-C - 11/27/2023 12:34 PM EDT Done! * Telephone Encounter - Connie Fink - 11/27/2023 11:55 AM EDT Order is needed for ERCP w/Stent removal. November 27, 2023 11:55 AM Connie Fink documented in this encounterToledo Hospital06-24-2024 Telephone encounter Note * Telephone Encounter - Melva Dennis PA-C - 11/27/2023 12:34 PM EDT Done! [facility]06-24-2024 Telephone encounter Note* Telephone Encounter - Connie Fink - 11/27/2023 11:55 AM EDT Order is needed for ERCP w/Stent removal. November 27, 2023 11:55 AM Connie Fink [facility]06-19-2024 NoteHNO ID: [id number] Author: EVELIA MAK MD Service: ? Author Type: Physician Type: Progress Notes Filed: 11/22/2023 12:41 Note Text: Evelia Mak M.D. Surgical Oncology [address] [place] [address], [address] [place] [address] SUBJECTIVE HPI Melva Kerns is a 43 [...] Neck: Thyroid: No thyromegaly. (more content not included)...[facility]06-19-[facility] History of Present illness Narrative* Evelia Mak MD - 11/22/2023 9:50 AM EDT Images from the original note were not included. Evelia Mak M.D. Surgical Oncology [address] [facility], [address] [place] [address] SUBJECTIVE HPI Melva Kerns is a 43 [...] No diarrhea/steatorrhea. No new or worsening medical conditionssince her last visit. She reports she is [...] stricture. I once again strongly reinforced the needfor her to quit smoking. Answered all of her questions to her satisfaction and she is agreeable to this plan. I spent a total of 30 minutes on the date of the service which included preparing to see the patient, completing clinical documentation, performing a medically appropriate examination, counseling andeducating the patient/family/caregiver, and independently interpreting results (not separately reported). Evelia Mak MD 11/22/2023 9:50 AM documented in this encounterToledo Hospital06-06-2024 History of Present illness Narrative* Tara Jimenez, RT(R) - 11/09/2023 1:00 PM EDT Radiology Service Progress Note DATE OF SERVICE: [...] PATIENT PRESENTS WITH AN IMPLANTABLE OR ATTACHED SAILING MASTER: No ALLERGIES: Reviewed and unchanged CONTRAST ALLERGY: NO. EXAM: MRI - CONTRAST TYPE: GROUP II PERIPHERAL IV DATA: Ambulatory: A peripheral IV was started in the Right antecubital site with a Angio cath: 22 gauge. RADIOLOGY DEPARTMENT: MR; Exam(s) Completed: Body: Pancreas/Biliary SIGNATURE: RT Mercedes(R) PATIENT NAME: Melva Kerns DATE: November 09, 2023 TIME: 1:16 PM documented in this encounterToledo Hospital04-17-2024 History of Present illness Narrative* Evelia Mak MD - 09/20/2023 2:40 PM EDT Images from the original note were not included. Evelia Mak M.D. Surgical Oncology [address] [facility], [address] [place] [address] SUBJECTIVE HPI Melva Kerns is a 43 [...] to alcohol and a biliary/PD duct stricture. Idiscussed with patient that I would like to [...] MD 09/20/2023 3:04 PM documented in this encounterToledo Hospital04-10-2024 Hospital Discharge instructions Additional Instructions Follow-up with your waste hand and surgeon in 3 to 5 days. Continue your medications as previously prescribed.[facility] Work Phone: [phone]) 481-622802-27-2024 Miscellaneous Notes* Telephone Encounter - Renea Veliz PA-C - 08/01/2023 11:38 AM EST Done * Telephone Encounter - Kylee Caputo MA - 08/01/2023 10:59 AM EST Pt scheduled for 08/10/[address] Davis, can you please order Kylee Caputo MA * Telephone Encounter - Kylee Caputo MA - 07/13/2023 8:28 AM EST Tried to call pt voicemail not set up Kylee Caputo MA * Telephone Encounter - Kylee Caputo MA - 06/30/2023 2:48 PM EST Plz reschedule her ERCP sometimes in August. Thanks documented in this encounterToledo Hospital02-14-2024 History of Present illness Narrative* Evelia Mak MD - 07/19/2023 10:47 AM EST Images from the original note were not included. Evelia Mak M.D. Surgical Oncology [address] [facility], [address] [place] [id number] SUBJECTIVE HPI Melva Kerns is a 43 [...] 05/09/2023 SpO2 98% BMI 24.03 kg/m No weighton file for this encounter. Physical Exam Constitutional: [...] resulting in a biliary and pancreatic duct stricture.Patient continues to have ongoing abdominal pain. Advised [...] MD 07/19/2023 10:47 AM documented in this encounterToledo Hospital12-25-2023 Discharge summary Author Leonel Chu [facility] May 29, 2023 8:56pm Note Date/Time May 29, 2023 7:26pm [facility] Medical Records Department [address] [place] [address] Emergency Department Summary 05/29/23 MR#: [id number] Acct: [id number] Name: MELVA KERNS OCTOBER Rep #:[id number] : 1980 42 From: [...] #18 tabs 04/11/23 [Rx Last Taken Unknown] ocekkx-pqlsdvdx-vkxwlbg 24,000-76,000-120,000 unit capsule,delayed rel (Creon) 1cap PO [...] % (Auto) 62.7 Lymph % (Auto) 25.4 [place] % (Auto) 8.8 Eos % (Auto) 2.4 [...] day. Call and follow-up with either your COMIC BOOK ARTIST office or the general surgeon on-call Dr. Bisi Alas with [place]. The packing gauze should be pulled out [...] your Primary Care Provider. Call [facility] ([phone]) or report to the closest Emergency Room. Call 911 if necessary. 05/29/232055 <Electronically signed by Leonel Chu MD> Cosigner Signature (if applicable): CC: No Primary Care Physician ~ Signed [facility] Work Phone: 1(231) 300-622112-05-2023 Discharge summary Author Charles Johansen [facility] May 09, 2023 5:59pm Note Date/Time May 09, 2023 3 :29pm [facility] Medical Records Department [address] [place] [address] Emergency Department Summary 05/09/23 MR#: [id number] Acct: [id number] Name: MELVA KERNS Rep #:[id number] : 1980 42 From: Charels Johansen DO PCP: Care Physician,No Primary Status :REG ER Location: ED HPI HPI - GI History of Present Illness Chief Complaint: Abd Pain Narrative Narrative: 42-year-old female with history of EtOH abuse, chronic EtOH induced pancreatitis, portal vein thrombosis history and previously on Lovenox presenting with right upper quadrant abdominal pain. Patient states she used tosee Dr. Salamanca here [facility] and was referred to a Dr. Garcia at [facility]. She reports that Dr. Salamanca placed a plastic stent in her common bile duct and yesterday this was removed by Dr. Garcia at [facility]. Patient states she had immediate pain upon awakening yesterday and discussed this with the postoperative team and the surgeon who stated that she would have pain secondary to the stent being placed. She states has been sent home on Tylenol and ibuprofen. She states she called her surgeon Dr. Garcia [facility] and he recommended she come to the ER at [place]. Patient states that she believes she had a metal stent placed where her previous plasticstent was placed. She states the pain has not increased or decreased and has been constant sharp achy pain in the right upper quadrant. Patient denies fevers, chills, nausea, vomiting, diarrhea. Patient states he has no postoperative pain medication that she was given. [facility] Medical History Abnormal liver function test [...] #18 tabs 04/11/23 [Rx Last Taken Unknown] lbdocn-uocxcffj-vnubydy 24,000-76,000-120,000 unit capsule,delayed rel (Creon) 1cap PO [...] pancreatitis. She had a procedure done at [facility] yesterday and I was able to look up the surgical note. It does look as if she had a plastic stent removed but I do not see any documentation of a metallic stent being placed. Patient reports chronic pain since yesterday after the procedure which has not changed at all in nature. Patient states she was referred to [place] ER from Dr. Barriga. Patient was medicated [...] placed yesterday. Discussed with Dr. Garcia at [facility] and we went over her lab work [...] 75.3 H Lymph % (Auto) 18.1 L [place] % (Auto) 6.0 Eos % (Auto) 0.2 [...] problems, contact your Primary Care Provider. Call [facility] ([phone]) or report to the closest Emergency Room. Call 911 if necessary. 05/09/23 5029 <Electronically signed by Charles Johansen DO> Cosigner Signature (if applicable): CC: No Primary Care Physician ~ Signed [facility] Work Phone: 1(903) 552-771012-04-2023 Hospital Discharge instructions* Discharge Instr - Other Orders* Haile Barriga MD - 05/08/2023 12:23 PM EST Regular diet preop meds f/u biopsies documented in this encounterToledo Hospital12-04-2023 Surgical operation note* Operative Report - Haile Barriga MD - 05/08/2023 9:35 AM EST OPERATIVE/PROCEDURE REPORT LOG ID: [id number] SURGERY/PROCEDURE DATE: 05/08/2023 INCISION/PROCEDURE START TIME: 10:34 AM INCISION CLOSE/PROCEDURE END TIME: 11:59 AM SURGEON(S)/PROCEDURALIST(S) AND HOUSE BUILDER(S): Haile Barriga MD - Proceduralist No Additional Staff SURGERY/PROCEDURE(S): Eus with fna ercp stent biliary removal biopsy via cold forceps stent placement 10 40 covered wall stent ANESTHESIA: General SURGERY/PROCEDURE DETAILS: see below PRE-OP/PRE-PROCEDURE DIAGNOSIS: abd pain abnormal imaging POST-OP/POST-PROCEDURE DIAGNOSIS: chronic pancreatitis with hi grade biliary stricture OPERATIVE/PROCEDURE REPORT LOG ID: [id number] Surgery/Procedure Date: 05/08/2023 Incision/Procedure Start Time: 10:34 AM Incision Close/Procedure End Time: 11:59 AM Surgeon(s)/Proceduralist(s) and Estimator Lumber(s): HAILE BARRIGA MD No Additional Staff Procedure(s): [...] 08, 2023 TIME: 2:07 PM PAGER/CONTACT #: [phone] ESTIMATED BLOOD LOSS: 0 ml SPECIMENS: pancreas bile duct IMPLANTABLE DEVICES: covered wall stent DRAINS: None COMPLICATIONS: None CLOSURE TECHNIQUE: Primary PARTICIPATION IN SURGERY/PROCEDURE: I/primary surgeon/proceduralist performed the procedure with assistance. SIGNATURE: Haile Barriga MD PATIENT NAME: Melva Kerns DATE: May 08, 2023 TIME: 2:05 PM * Operative Report - Haile Barriga MD - 05/08/2023 9:35 AM EST OPERATIVE/PROCEDURE REPORT LOG ID: [id number] SURGERY/PROCEDURE DATE: 05/08/2023 INCISION/PROCEDURE START TIME: 10:34 AM INCISION CLOSE/PROCEDURE END TIME: 11:59 AM SURGEON(S)/PROCEDURALIST(S) AND HOUSE BUILDER(S): Haile Barriga MD - Proceduralist No Additional Staff SURGERY/PROCEDURE(S): eus with fna OPERATIVE/PROCEDURE REPORT LOG ID: [id number] Surgery/Procedure Date: 05/08/2023 Incision/Procedure Start Time: 10:34 AM Incision Close/Procedure End Time: 11:59 AM Surgeon(s)/Proceduralist(s) and Estimator Lumber(s): HAILE BARRIGA MD Procedure(s): Endoscopic Ultrasound (EUS) [...] 08, 2023 TIME: 2:12 PM PAGER/CONTACT #: [phone] ANESTHESIA: General SURGERY/PROCEDURE DETAILS: see below PRE-OP/PRE-PROCEDURE DIAGNOSIS: chronic pancreatitis POST-OP/POST-PROCEDURE DIAGNOSIS: Same as Preop ESTIMATED BLOOD LOSS: 0 ml SPECIMENS: pancreas IMPLANTABLE DEVICES: NONE DRAINS: None COMPLICATIONS: None CLOSURE TECHNIQUE: Primary PARTICIPATION IN SURGERY/PROCEDURE: I/primary surgeon/proceduralist performed the procedure with assistance. SIGNATURE: Haile Barriga MD PATIENT NAME: Melva Kerns DATE: May 08, 2023 TIME: 2:12 PM documented in this encounterToledo Hospital12-04-2023 History and physical note * Radha Sears, BOBBI.LOSS PREVENTION INVESTIGATOR - 05/08/2023 9:30 AM EST HISTORY AND [...] (LEVAQUIN) 750 mg tablet Take by mouth. eyiqrj-wldxmhpb-awomkkx (CREON 24) 24,000-76,000 -120,000 unit delayed release [...] which included preparing to see the patient, jywp-dn-intc patient care, completing clinical documentation, and performing a medically appropriate examination. Instructions Given to Patient: Patient given verbal preop instructions and voices comprehension and compliance. SIGNATURE: Radha Sears APRN.CNP PATIENT NAME: Melva Kerns DATE: May 08, 2023 TIME: 7:48 AM PAGER/CONTACT #: documented in this encounterToledo Hospital11-16-2023 Miscellaneous Notes* Telephone Encounter - Gita [...] a date and time documented in this encounterToledo Hospital08-28-2023 Miscellaneous Notes* Telephone Encounter - Gertrudis Denton - 01/30/2023 9:27 AM EDT Received referral from Dr. Mak for Chronic Abdominal pain, pancreatitis. Confirmed with Benefits Consulting Analyst that we do not treat this patient. Spoke with patient and provided information and advised to follow backup with Dr. Mak. Gertrudis Denton documented in this encounterToledo Hospital08-22-2023 Miscellaneous Notes* Telephone Encounter - Cindy [...] pain management. Williams CHEEMA documented in this encounterToledo Hospital08-22-2023 History of Present illness Narrative* Cindy Jean LPN - 01/24/2023 6:57 AM EDT Consultt o documented in this encounterToledo Hospital08-18-2023 Miscellaneous Notes* Tele[facility] En[facility]apaty [facility] 01/20/2023 10:21 AM EDT Smoking Cessation Navigation Outcome of contact: Left Message Comments: A voicemail has been left for this patient regarding Tobacco Cessation support options. If this patient has any further questions they can email us at or call us at [phone]. [facility] Troll Fisher/Smoking Cessation Navigator: Sofya [facility]oshade [facility] documented in this encounterToledo Hospital08-16-[facility]23 Nurse Note* Indiana Schreiber MA - 01/18/2023 8:31 AM EDT Bile duct obstruction. Lot of pain. See imaging scanned documents documented in this encounterToledo Hospital08-16-2023 History of Present illness Narrative* Evelia Mak MD - 01/18/2023 8:30 AM EDT Images from the original note were not included. Evelia Mak M.D. Surgical Oncology [address] [facility], [address] [place] [address] SUBJECTIVE HPI Melva Kerns is a 42 year old female presenting for evaluation of a bile duct obstruction. Patient was seen at [facility] January 03, 2023. She had had [...] (LEVAQUIN) 750 mg tablet Take by mouth. fxuhxv-nwdxqsjd-rveccpk (CREON 24) 24,000-76,000 -120,000 unit delayed release [...] MD 01/18/2023 8:41 AM documented in this encounterToledo Hospital08-04-2023 Miscellaneous Notes* Telephone Encounter - Cindy Jean LPN - 01/06/2023 9:34 AM EDT Patient called into office, verified by name and . Received FC until April. Scheduled OV with Dr. Mak on 01/18/23. Williams CHEEMA * Telephone Encounter - Cindy Jean LPN - 01/05/2023 11:33 AM EDT Received faxed referral from Dr. Salamanca at [facility] GI for patient to be seen for dx: Alcohol induced Pancreatitis, with obstruction of bile duct. Called patient, verified by name and . Patient states she does not currently have insurance. Patient given phone number to call to get authorization/Financial Clearance prior to being able to schedule appointment. Patient voiced understanding and stated she would call. Williams CHEEMA documented in this encounterToledo Hospital08-02-2023 Progress note Author Sal Cassidy [facility] January 04, 2023 1:00pm Note Date/Time January 04, 2023 8:0 9am [facility] Medical Records Department [address] [place] [address] Progress Note - Hospitalist 01/04/23 08 MR#: [id number] Acct: [id number] Name: MELVA KERNS Rep #:[id number] : 1980 42 From: Sal Cassidy DO PCP: Care Physician,No Primary Status :ADM IN Location: [place] [address] Reason for Visit Reason for Visit: Diagnoses [...] 07:47 01/04/23 07:47 01/04/23 07:47 01/04/23 07:47 Oxygen Delivery Method Room Air Weight: [...] H, RDW Coeff of Frankie 13.2, Plt Kshuc369, MPV 10.2, Immature Gran % (Auto) 0.400, Neut % (Auto) 78.6 H, Lymph % (Auto) 17.8 L, [place] % (Auto) 2.8, Eos % (Auto) 0.0, [...] SC daily. Charges/Coding Visit Charges Inpatient E&M: 60870 Subs Hosp L2 01/04/23 1300 <Electronically signed by Sal Cassidy DO> Cosigner Signature (if applicable): CC: ~ Signed [facility] Work Phone: 1(250) 826-413708-01-2023 Progress note Author Chandler Salamanca [facility] January 03, 2023 5:05pm Note Date/Time January 03, 2023 5:0 5pm [facility] Medical Records Department [address] [place] [address] Progress Note - GI 01/03/23 1400 MR#: [id number] Acct: [id number] Name: MELVA KERNS OCTOBER Rep #:[id number] : 1980 42 From: Chandler Salamanca DO PCP: Care Physician,No Primary Status :ADM IN Location: [place]3 HN341-6 Subjective Subjective Patient is still complaining of [...] % (Auto) 50.0, Lymph % (Auto) 35.1, [place] % (Auto) 8.0, Eos % (Auto) 5.1 [...] hepatitis from current work-up. She did have anti-CUSTOM TAILOR APPRENTICE antibody that is positive but that is [...] on anticoagulation. Charges/Coding Visit Charges Inpatient E&M: 10332 Subs Hosp L3 01/03/23 1705 <Electronically signed by Chandler Friend > Cosigner Signature (if applicable): CC: ~ Signed [facility] Work Phone: [phone]) 876-223708-01-2023 Procedure [facility] 01-03-2023 Procedure [facility]08-01-2023 Progress note Author Sal Cassidy [facility] January 03, 2023 12:10pm Note Date/Time January 03, 2023 7:1 8am [facility] Medical Records Department [address] [place] [address] Progress Note - Hospitalist 01/03/23713 MR#: [id number] Acct: [id number] Name: MELVA KENRS Rep #:[id number] : 1980 42 From: Sal Cassidy DO PCP: Care Physician,No Primary Status :ADM TRACE Location: [place] [address] Reason for Visit Reason for Visit: Diagnoses [...] Intake and Output for Last 24 Hours 07/01/02/23 01/03/23 23:59 23:59 23:59 Intake Total 4295.00 [...] % (Auto) 50.0, Lymph % (Auto) 35.1, [place] % (Auto) 8.0, Eos % (Auto) 5.1 [...] SC daily. Charges/Coding Visit Charges Inpatient E&M: 96648 Subs Hosp L2 01/03/23 1210 <Electronically signed by Sal Cassidy DO> Cosigner Signature (if applicable): CC: ~ Signed [facility] Work Phone: [phone]) 115-895208-01-2023 Progress note Author Bisi Alas [facility] January 03, 2023 9:01am Note Date/Time January 03, 2023 9:0 1am [facility] Medical Records Department [address] [place] [address] Progress Note - Surgery 01/03/23 0850 MR#: [id number] Acct: [id number] Name: MELVA KERNS Rep #:[id number] : 1980 42 From: Bisi Zapata PCP: Care Physician,No Primary Status :ADM TRACE Location: [place]3 XI060-6 Subjective Subjective Patient seen and examined on [...] % (Auto) 50.0, Lymph % (Auto) 35.1, [place] % (Auto) 8.0, Eos % (Auto) 5.1 [...] GI evaluation. Charges/Coding Visit Charges Inpatient E&M: 67755 Subs Hosp L2 01/03/23 0901 <Electronically signed by Bisi Alas MD> Cosigner Signature (if applicable): CC: ~ Signed [facility] Work Phone: 1(201) 918-477107-31-2023 Consult note Author Chandler Salamanca [facility] January 02, 2023 4:53pm Note Date/Time January 02, 2023 4:47 pm [facility] Medical Records Department [address] [place] [address] Consultation - GI 01/02/23 1646 MR#: [id number] Acct: [id number] Name: MELVA KERNS Rep #:[id number] : 1980 42 From: Chandler Salamanca DO PCP: Care Physician,No Primary Status :ADM TRACE Location: [place] [address] HPI Consult Data Date of Consult: 01/02/23 [...] 13. I got to know her at [facility] hospitalization 07.28.22-08.05.22. She presented with abdominal pain [...] Ammonia <10.0, CRP H101-15.50, amylase H520, lipase S4491-5621, IgG not reportable, anticardio ImG H15 CT [...] vodka. I got to know her at [facility] hospitalization 07.28.22-3. She presented with abdominal pain [...] hospitalization ESR, TSH, prolactin, IgGAM, IgG subclasses, COTLON comp, ANCA, protein C deficiency, A-cardio IgG, AT3, Beta-glyco, Factor II, Factor V without pertinent abnormality. ? Ammonia <10.0, CRP H101-15.50, amylase H520, lipase N9017-4807, IgG not reportable, anticardio ImG H15 CT [...] ultrasound for evaluation of the pancreatic head. [facility] Medical History (Updated 01/02/23 @ 06:34 by [...] PRN pain 12/14/22 [History Last Taken 12/14/22] glgkdz-wpoqohwa-hjwegwr 24,000-76,000-120,000 unit capsule,delayed rel (Creon) 1cap PO [...] % (Auto) 59.8, Lymph % (Auto) 27.7, [place] % (Auto) 7.0, Eos % (Auto) 3.6, [...] may represent fatty infiltration. Electronically Signed: Jake ZelayaDO at 5:31 EDT , Assessment & Plan [...] hepatitis from current work-up. She did have anti-CUSTOM TAILOR APPRENTICE antibody that is positive but that is [...] on anticoagulation. Charges/Coding Visit Charges Inpatient E&M: 75754 Init Hosp L3 01/02/23 1653 <Electronically signed by Chandler Friend DO> Cosigner Signature (if applicable): CC: Dr. Caty Flynn MD; Dr. Bisi Alas MD; No Primary Care Physician~ Signed [facility] Work Phone: [phone]) 165-648907-31-2023 Consult note Author Bisi Alas [facility] January 02, 2023 4:38pm Note Date/Time January 02, 2023 1:02 pm [facility] Medical Records Department [address] [place] [address] Consultation - Surgical 01/02/23 1300 MR#: [id number] Acct: [id number] Name: MELVA KERNS OCTOBER Rep #:[id number] : 1980 42 From: Bisi Zaapta PCP: Care Physician,No Primary Status :ADM TRACE Location: [place] [address] Assessment & Plan Assessment/Plan (1) Intractable abdominal [...] is a 42 F who presented to [facility] ER earliertoday with complaints of constant [...] think this medication is effective any longer. [facility] Medical History (Updated 01/02/23 @ 06:34 by [...] PRN pain 12/14/22 [History Last Taken 12/14/22] fotimd-maijkvyn-jnmxden 24,000-76,000-120,000 unit capsule,delayed rel (Creon) 1cap PO [...] % (Auto) 59.8, Lymph % (Auto) 27.7, [place] % (Auto) 7.0, Eos % (Auto) 3.6, [...] Signed: Jake Zelaya at 5:31 EDT , Charges/Coding Visit Charges Inpatient E&M: 00712 Init Hosp L2 01/02/23 1638 <Electronically signed by Biis Alas MD> Cosigner Signature (if applicable): CC: Dr. Caty Flynn MD; Dr. Bisi Alas MD; No Primary Care Physician~ Signed [facility] Work Phone: [phone]) 259-825307-31-2023 Progress note Author Sal Cassidy [facility] January 02, 2023 2:29pm Note Date/Time January 02, 2023 7:47 am [facility] Medical Records Department [address] [place] [address] Progress Note - Hospitalist 01/02/23 0739 MR#: [id number] Acct: [id number] Name: MELVA KERNS Rep #:[id number] : 1980 42 From: Sal Cassidy DO PCP: Care Physician,No Primary Status :ADM TRACE Location: [place] [address] Reason for Visit Reason for Visit: Diagnoses [...] % (Auto) 59.8, Lymph % (Auto) 27.7, [place] % (Auto) 7.0, Eos % (Auto) 3.6, [...] SC daily. Charges/Coding Visit Charges Inpatient E&M: 24811 Subs Hosp L2 01/02/23 1429 <Electronically signed by Sal Cassidy DO> Cosigner Signature (if applicable): CC: ~ Signed [facility] Work Phone: [phone] 850-642707-31-2023 History and physical note Author Caty Flynn [facility] January 02, 2023 6:34am Note Date/Time January 02, 2023 6:16 am [facility] Medical Records Department [address] [place] [address] [place] [address] H&P Exam - Hospitalist 01/02/23 0611 MR#: [id number] Acct: [id number] Name: MELVA KERNS OCTOBER Rep #:[id number] : 1980 42 From: Caty Flynn MD PCP: Care Physician,No Primary Status :ADM TRACE Location: [place] [address] HPI - General General Date of Admission: [...] hepatitis with choledocholithiasis who presents to the [facility] ED on 01/02/23 with history of increasing [...] with increased echogenicity of the liver possibly community service representative of fatty infiltration, EtOH level < 3. In the ED patient ministered Zofran 4 mg IV x1, Dilaudid 1 mg IV x2 and 1 L normal saline bolus. ED discussed case with Dr. Salamanca who will evaluate. [facility] Medical History (Updated 01/02/23 @ 06:34 by [...] PRN pain 12/14/22 [History Last Taken 12/14/22] mvloqb-tzoheceu-dxcscxv 24,000-76,000-120,000 unit capsule,delayed rel (Creon) 1cap PO [...] % (Auto) 59.8, Lymph % (Auto) 27.7, [place] % (Auto) 7.0, Eos % (Auto) 3.6, [...] hepatitis with choledocholithiasis who presents to the [facility] ED on 01/02/23 with history of increasing [...] SC daily. Charges/Coding Visit Charges Inpatient E&M: 18425 Init Hosp L2 01/02/23 0634 <Electronically signed by Caty Flynn MD> Cosigner Signature (if applicable): CC: Dr. Caty Flynn MD; No Primary Care Physician~ Signed [facility] Work Phone: [phone] 321-509907-31-2023 Discharge summary Author Cong Marquez [facility] January 02, 2023 6:33am Note Date/Time January 02, 2023 6:19 am [facility] [address] [place] [address] Emergency Department Summary 01/02/23 MR#: [id number] Acct: [id number] Name: MELVA KERNS Rep #:[id number] : 1980 42 From: Cong Marquez DO PCP: Care Physician,No Primary Status :ADM TRACE Location: [place] [address]-1 HPI History of Present Illness Chief Complaint: [...] to mild nausea associated with the pain. [facility] Medical History (Updated 01/02/23 @ 06:33 [...] PRN pain 12/14/22 [History Last Taken 12/14/22] cthagm-vuhcyhkh-ltjmxyx 24,000-76,000-120,000 unit capsule,delayed rel (Creon) 1cap PO [...] % (Auto) 59.8 Lymph % (Auto) 27.7 [place] % (Auto) 7.0 Eos % (Auto) 3.6 [...] alcohol abuse Disposition Disposition: Acute Care Hospital [facility] What to do if you have Problems For any increased pain, shortness of breath, bleeding, nausea or vomiting, chestpain, or any unexpected problems, contact your Primary Care Provider. Call [facility] ([phone]) or report to the closest Emergency Room. Call 911 if necessary. 01/02/23 0633 <Electronically signed by Cong Marquez DO> Cosigner Signature (if applicable): CC: No Primary Care Physician ~ Signed [facility] Work Phone: [phone]) 176-483807-27-2023 Discharge summary Author Gianni Perez [facility] December 29, 2022 2:41pm Note Date/Time December 29, 2022 1:14 pm [facility] Medical Records Department [address] [place] [address] Emergency Department Summary 12/29/22 MR#: [id number] Acct: [id number] Name: MELVA KERNS Rep #:[id number] : [...] symptoms: Yes Recent Illness/Hospitalization: Yes (Gallstone pancreatitis) PFSH [facility] Medical History Abdominal pain Abnormal liver function [...] PRN pain 12/14/22 [History Last Taken 12/14/22] iygwem-lmuxhiwf-ideajqn 24,000-76,000-120,000 unit capsule,delayed rel (Creon) 1cap PO [...] % (Auto) 66.3 Lymph % (Auto) 21.3 [place] % (Auto) 6.0 Eos % (Auto) 4.3 [...] Triage Chief Complaint: Abd Pain ED Provider: Gianni Perez Dx/Rx/DC Orders Clinical Impression: Right upper quadrant [...] your Primary Care Provider. Call [facility] ([phone]) or report to the closest Emergency Room. Call 911 if necessary. 12/29/22 1441 <Electronically signed by Gianni Perez MD> Cosigner Signature (if applicable): CC: No Primary Care Physician ~ Signed [facility] Work Phone: [phone]) 993-197407-19-2023 Discharge summary Author Rafael Joseph [facility] December 21, 2022 11:49am Note Date/Time December 21, 2022 11:3 1am [facility] Medical Records Department [address] [place] [address] Instructions for Home/Discharge Instructions 12/21/22 1130 MR#: [id number] Acct: [id number] Name: MELVA KERNS Rep #:[id number] : [...] Consulting Providers: Sal Cassidy Instructions Patient Instructions: PERLA RN Biopsy Liver Dc, PERLA RN Procedural [...] mg PO DAILY Referrals / Follow Up: Chandler Salamanca DO [Med Staff - Active Staff] - See Referral Note (in 3 weeks) Care Physician,No Primary [Primary Care Provider] - Disposition Disposition (needs filled in before D/C Order can be placed): Home, Self Care 12/21/22 1149<Electronically signed by Rafael Joseph DO>Rafael Joseph DO CC: Dr. Sal Cassidy DO; No Primary Care Physician ~ Signed [facility] Work Phone: [phone]) 300-175207-18-2023 Progress note Author Chandler Salamanca [facility] December 20, 2022 5:08pm Note Date/Time December 20, 2022 5:09 pm [facility] Medical Records Department [address] [place] [address] Progress Note - GI 12/20/22 1706 MR#: [id number] Acct: [id number] Name: MELVA KERNS OCTOBER Rep #:[id number] : 1980 42 From: Chandler Salamanca DO PCP: Care Physician,No Primary Status :ADM IN Location: [facility] II186-2 Subjective Subjective Patient did not get the [...] patient had a diminished O2 saturation and front office agent film showed mixed, diffuse bilateral interstitial and [...] hepatitis from current work-up. She did have anti-CUSTOM TAILOR APPRENTICE antibody that is positive but that is [...] seen on repeat imaging in the stomach. 3/1: Oncology is leaning towards stopping anticoagulation due to patient having incomplete thrombosis. We will await recommendations. 3/2: Oncology is okay with the patient going [...] on anticoagulation. Charges/Coding Visit Charges Inpatient E&M: 15285 Subs Hosp L3 12/20/22 1708 <Electronically signed by Chandler Salamanca DO> Cosigner Signature (if applicable): CC: ~ Signed [facility] Work Phone: [phone] 668-939307-18-2023 Progress note Author Sal Cassidy [facility] December 20, 2022 3:34pm Note Date/Time December 20, 2022 7:21 am [facility] Medical Records Department [address] [place] [address] Progress Note - Hospitalist 12/20/22 0719 MR#: [id number] Acct: [id number] Name: MELVA KERNS Rep #:[id number] : 1980 42 From: Sal Cassidy DO PCP: Care Physician,No Primary Status :ADM IN Location: [facility] XN420-0 Reason for Visit Reason for Visit: Diagnoses [...] been discontinued. I told she can leave A, however, if she does, I told her I wouldnot prescribe any narcotics. She said, you keep saying that--I hadn't. I will continue oxycodone and breakthrough morphine. Add ketorolac scheduled for the next 2 days. Charges/Coding Visit Charges Inpatient E&M: 69682 Subs Hosp L2 12/20/22 1537 <Electronically signed by Sal Cassidy DO> Cosigner Signature (if applicable): CC: ~ Signed [facility] Work Phone: 1(726) 739-241007-17-2023 Progress note Author Sal Cassidy [facility] December 19, 2022 11:44am Note Date/Time December 19, 2022 7:31 am [facility] Medical Records Department [address] [place] [address] Progress Note - Hospitalist 12/19/22 0728 MR#: [id number] Acct: [id number] Name: MELVA KERNS Rep #:[id number] : 1980 42 From: Sal Cassidy DO PCP: Care Physician,No Primary Status :ADM IN Location: [place] [address] Reason for Visit Reason for Visit: Diagnoses [...] 2 days. Charges/Coding Visit Charges Inpatient E&M: 48021 Subs Hosp L2 12/19/22 1144 <Electronically signed by Sal Cassidy DO> Cosigner Signature (if applicable): CC: ~ Signed [facility] Work Phone: [phone] Progress note Author Sal Cassidy [facility] December 18, 2022 9:49am Note Date/Time December 18, 2022 7:57 am [facility] Medical Records Department [address] [place] [address] Progress Note - Hospitalist 12/18/22 0752 MR#: [id number] Acct: [id number] Name: MELVA KERNS Rep #:[id number] : 1980 42 From: Sal Cassidy DO PCP: Care Physician,No Primary Status :ADM IN Location: [place] [address] Reason for Visit Reason for Visit: Diagnoses [...] been discontinued. I told she can leave A, however, if she does, I told her I wouldnot prescribe any narcotics. She said, you keep saying that--I hadn't. I will continue oxycodone and breakthrough morphine. Add ketorolac scheduled for the next 2 days. Greater than 35 minutes of which greater than 50% of the time was counseling thepatient as above about treating her pain. Charges/Coding Visit Charges Inpatient E&M: 69306 Subs Hosp L2 12/18/22 0949 <Electronically signed by Sal Cassidy DO> Cosigner Signature (if applicable): CC: ~ Signed [facility] Work Phone: [phone]) 375-561407-15-2023 Progress note Author Chandler Friend [facility] December 17, 2022 3:33pm Note Date/Time December 17, 2022 3:31 pm [facility] Medical Records Department [address] [place] [address] Progress Note - GI 12/17/22 1528 MR#: [id number] Acct: [id number] Name: MELVA KERNS Rep #:[id number] : 1980 42 From: Chandler Friend DO PCP: Care Physician,No Primary Status :ADM IN Location: [place] 687263-1 Subjective Subjective Patient is still complaining of [...] (Auto) 71.0 H, Lymph % (Auto) 19.5, [place] % (Auto) 8.4, Eos % (Auto) 0.6, [...] hepatitis from current work-up. She did have anti-CUSTOM TAILOR APPRENTICE antibody that is positive but that is [...] seen on repeat imaging in the stomach. 3/1: Oncology is leaning towards stopping anticoagulation due to patient having incomplete thrombosis. We will await recommendations. 3/2: Oncology is okay with the patient going [...] on anticoagulation. Charges/Coding Visit Charges Inpatient E&M: 26178 Subs Hosp L3 12/17/22 1956 <Electronically signed by Chandler Friend DO> Cosigner Signature (if applicable): CC: ~ Signed [facility] Work Phone: [phone]) 476-856007-15-2023 Progress note Author Sal Cassidy [facility] December 17, 2022 11:30am Note Date/Time December 17, 2022 8:00 am [facility] Medical Records Department [address] [place] [address] Progress Note - Hospitalist 12/17/22 0755 MR#: [id number] Acct: [id number] Name: MELVA KERNS Rep #:[id number] : 1980 42 From: Sal Cassidy DO PCP: Care Physician,No Primary Status :ADM IN Location: [place] [address] Reason for Visit Reason for Visit: Diagnoses [...] (Auto) 71.0 H, Lymph % (Auto) 19.5, [place] % (Auto) 8.4, Eos % (Auto) 0.6, [...] already anticoagulated. Charges/Coding Visit Charges Inpatient E&M: 91506 [facility] Hosp L2 12/17/22 1130 <Electronically signed by Sal Cassidy DO> Cosigner Signature (if applicable): CC: ~ Signed [facility] Work Phone: 1([phone]) 850-410007-14-2023 Consult note Author Chandler Salamanca [facility] December 16, 2022 6:14pm Note Date/Time December 15, 2022 5:20 pm [facility] Medical Records Department [address] [facility] [place] [address] Consultation - GI 12/15/22 1719 MR#: [id number] Acct: [id number] Name: MELVA KERNS Rep #:[id number] : 1980 42 From: Chandler Salamanca DO PCP: Care Physician,No Primary Status :ADM IN Location: [facility] OU012-5 HPI Consult Data Date of Consult: 12/15/22 [...] vodka. I got to know her at [facility] hospitalization 07.28.22-08.05.22. She presented with abdominal pain [...] Ammonia <10.0, CRP H101-15.50, amylase H520, lipase L5288-2024, IgG not reportable, anticardio ImG H15 CT [...] left common iliac artery. No narrowing. OV 3.. with continue N/V and abdominal pain with lightheadedness when she stands. Decreased appetite. Symptoms present each day and start around mid-morning/mid-day. In this particular visit her lipase is mildly elevated into the 700s. Initiallyleslee had a AST of 575 and ALT [...] ultrasound for evaluation of the pancreatic head. PFSH Medical History Alcohol abuse Anticoagulant long-term [...] PRN pain 12/14/22 [History Last Taken 12/14/22] ddixmh-nlisueba-wtmgjma 24,000-76,000-120,000 unit capsule,delayed rel (Creon) 1cap PO [...] L, Total Bilirubin 0.50, AST 312 H, IAC801 H, Alkaline Phosphatase 111, Total Protein 6.8, [...] Marquise Torres (Brooks), at 16:47 EDT , Assessment & Plan Assessment/Plan (1) Transaminitis: [...] endoscopic ultrasound Charges/Coding Visit Charges Inpatient E&M: 73354 Init Hosp L3 12/16/22 1814 <Electronically signed by Chandler Friend > Cosigner Signature (if applicable): CC: No Primary Care Physician~ Signed [facility] Work Phone: 1([phone]) 248-456007-14-2023 Procedure [facility] 12-16-2022 Procedure [facility]07-14-2023 Progress note Author Sal Cassidy [facility] December 16, 2022 11:51am Note Date/Time December 16, 2022 7:58 am [facility] Medical Records Department [address] [place] [address] Progress Note - Hospitalist 12/16/22 0755 MR#: [id number] Acct: [id number] Name: MELVA KERNS Rep #:[id number] : 1980 42 From: Sal Cassidy DO PCP: Care Physician,No Primary Status :ADM IN Location: [place] [address] Reason for Visit Reason for Visit: Diagnoses [...] % (Auto) 60.7, Lymph % (Auto) 24.9, [place] % (Auto) 9.1, Eos % (Auto) 4.2, [...] of cardiopulmonary disease. Electronically Signed: Jake Zelaya, DO at 5:35 EDT , Physical Exam Const [...] already anticoagulated. Charges/Coding Visit Charges Inpatient E&M: 70495 Subs Hosp L2 12/16/22 1151 <Electronically signed by Sal Cassidy DO> Cosigner Signature (if applicable): CC: ~ Signed [facility] Work Phone: 1(360) [phone] Progress note Author Sal Cassidy [facility] December 15, 2022 1:34pm Note Date/Time December 15, 2022 8:48 am [facility] Medical Records Department [address] [place] [address] Progress Note - Hospitalist 12/15/22 0845 MR#: [id number] Acct: [id number] Name: MELVA KERNS Rep #:[id number] : 1980 42 From: Sal Cassidy DO PCP: Care Physician,No Primary Status :ADM IN Location: [place] [address] Reason for Visit Reason for Visit: Diagnoses [...] 77.4 H, Lymph % (Auto) 14.5 L, [place] % (Auto) 5.0, Eos % (Auto) 2.2, [...] 118 H, Calcium 9.4, Total Bilirubin 0.50, SLG547 H, ALT 272 H, Alkaline Phosphatase 134 H, Total Protein 7.7, Albumin 3.5, Globulin 4.2, Albumin/Globulin Ratio 0.8 L, Lipase 787 H 12/14/22 14:45: Urine Color Yellow, Urine Clarity Sl. Cloudy, Urine pH 6.0, Ur Specific Willard 1.020, Urine Protein 100 H, Urine Glucose [...] already anticoagulated. Charges/Coding Visit Charges Inpatient E&M: 63879 Subs Hosp L2 12/15/22 1334 <Electronically signed by Sal Cassidy DO> Cosigner Signature (if applicable): CC: ~ Signed [facility] Work Phone: [phone]) 513-646307-12-2023 History and physical note Author Sal Cassidy [facility] December 14, 2022 4:57pm Note Date/Time December 14, 2022 4:52 pm [facility] Medical Records Department [address] [place] [address] H&P Exam - Hospitalist 12/14/22 1647 MR#: [id number] Acct: [id number] Name: MELVA KERNS Rep #:[id number] : 1980 42 From: Sal Cassidy DO PCP: Care Physician,No Primary Status :ADM IN Location: [facility] VB287-8 HPI - General General Date of Service: 12/14/22 Chief Complaint: [...] [facility] Medical History Alcohol abuse Anticoagulant long-term use [...] PRN pain 12/14/22 [History Last Taken 12/14/22] kbycrh-pvugouoi-nhgwlgj 24,000-76,000-120,000 unit capsule,delayed rel (Creon) 1cap PO [...] 77.4 H, Lymph % (Auto) 14.5 L, [place] % (Auto) 5.0, Eos % (Auto) 2.2, [...] 118 H, Calcium 9.4, Total Bilirubin 0.50, ZSU433 H, ALT 272 H, Alkaline Phosphatase 134 H, Total Protein 7.7, Albumin 3.5, Globulin 4.2, Albumin/Globulin Ratio 0.8 L, Lipase 787 H 12/14/22 14:45: Urine Color Yellow, Urine Clarity Sl. Cloudy, Urine pH 6.0, Ur Specific Willard 1.020, Urine Protein 100 H, Urine Glucose [...] already anticoagulated. Charges/Coding Visit Charges Inpatient E&M: 47683 Init Hosp L3 12/14/22 1970 <Electronically signed by Sal Cassidy DO> Cosigner Signature (if applicable): CC: Dr. Sal Cassidy DO; No Primary Care Physician~ Signed [facility] Work Phone: 1([phone]) 675-930407-12-2023 Discharge summary Author Jake Ackerman [facility] December 14, 2022 4:10pm Note Date/Time December 14, 2022 3:56 pm [facility] Medical Records Department [address] [place] [address] Emergency Department Summary 12/14/22 MR#: [id number] Acct: [id number] Name: MELVA KERNS Rep #:[id number] : [...] secondary to alcohol abuse. Patient sees Dr. Friend for GI needs. Patient takes Creon and [...] PRN pain 12/14/22 [History Last Taken 12/14/22] rxybeq-ffuqgzjn-jyzmftn 24,000-76,000-120,000 unit capsule,delayed rel (Creon) 1cap PO [...] over 4 hours. Patient is placed on granite countertop installer. Patient will be admitted for hypokalemia, pancreatitis, [...] 77.4 H Lymph % (Auto) 14.5 L [place] % (Auto) 5.0 Eos % (Auto) 2.2 [...] Sl. Cloudy Urine pH 6.0 Ur Specific Willard 1.020 Urine Protein 100 H Urine Glucose [...] tract infection) Disposition Disposition: Acute Care [facility] What to do if you have Problems For any increased pain, shortness of breath, bleeding, nausea or vomiting, chestpain, or any unexpected problems, contact your Primary Care Provider. Call [facility] ([phone]) or report to the closest Emergency Room. Call 911 if necessary. 12/14/22 1610 <Electronically signed by Jake Ackerman DO> Cosigner Signature (if applicable): CC: No Primary Care Physician ~ Signed [facility] Work Phone: [phone]) 106-994007-12-2023 Discharge summary Author Jake Ackerman [facility] December 14, 2022 4:10pm Note Date/Time December 14, 2022 3:56 pm [facility] Medical Records Department [address] [place] [address] Emergency Department Summary 12/14/22 MR#: [id number] Acct: [id number] Name: MELVA KERNS Rep #:[id number] : [...] PRN pain 12/14/22 [History Last Taken 12/14/22] vzsfsj-udiyzhmi-ulrkwja 24,000-76,000-120,000 unit capsule,delayed rel (Creon) 1cap PO [...] over 4 hours. Patient is placed on granite countertop installer. Patient will be admitted for hypokalemia, pancreatitis, [...] 77.4 H Lymph % (Auto) 14.5 L [place] % (Auto) 5.0 Eos % (Auto) 2.2 [...] Sl. Cloudy Urine pH 6.0 Ur Specific Willard 1.020 Urine Protein 100 H Urine Glucose [...] (urinary tract infection) Disposition Disposition: Acute Care [facility] What to do if you have Problems For any increased pain, shortness of breath, bleeding, nausea or vomiting, chestpain, or any unexpected problems, contact your Primary Care Provider. Call [facility] ([phone]) or report to the closest Emergency Room. Call 911 if necessary. 12/14/22 1610 <Electronically signed by Jake Ackerman DO> Cosigner Signature (if applicable): CC: No Primary Care Physician ~ Signed [facility] Work Phone: 1([phone]) 574-423303-02-[address] Crouch [facility] August 04, 2022 6:30pm Note Date/Time August 04, 2022 6:18 pm [facility] Medical Records Department [address] [place] [address] Progress Note - Hospitalist 08/04/22 1815 MR#: [id number] Acct: [id number] Name: MELVA KERNS Rep #:[id number] : 1980 42 From: Monika Crouch MD PCP: Care Physician,No Primary Status :ADM IN Location: [place] [address] Reason for Visit Reason for Visit: Diagnoses [...] Neut % (Auto) 54.4, Lymph % (Auto) 25.3,[place] % (Auto) 14.5 H, Eos % (Auto) [...] of alcohol abuse, tobacco use, pancreatitispresented to [facility] 07/28/2022 with abdominal pain/nausea/vomiting. It felt [...] documentation, 40minutes Charges/Coding Visit Charges Inpatient E&M: 22497 Subs Hosp L3 08/04/22 1830 <Electronically signed by Monika Crouch MD> Cosigner Signature (if applicable): CC: ~ Signed [facility] Work Phone: [phone]) [phone] Progress note Author Chandler Friend [facility] August 04, 2022 5:20pm Note Date/Time August 04, 2022 5:20 pm [facility] Medical Records Department [facility] [place] [address] Progress Note 08/04/221717 MR#: [id number] Acct: [id number] Name: MELVA KERNS Rep #:[id number] : 1980 42 From: Chandler Friend PCP: Care Physician,No Primary Status :ADM IN Location: [facility] KP420-1 Subjective Subjective The patient is actually doing [...] Balance 4940 / 4940 4347.25 / 4347.25 1715. / 1715.01 Lab / Micro Data Result [...] Neut % (Auto) 54.4, Lymph % (Auto) 25.3,[place] % (Auto) 14.5 H, Eos % (Auto) [...] hepatitis from current work-up. She did have anti-CUSTOM TAILOR APPRENTICE antibody that is positive but that is [...] hematology consultation. Charges/Coding Visit Charges Inpatient E&M: 12195 Subs Hosp L3 08/04/22 1720 <Electronically signed by Chandler Salamanca DO> Chandler Salamanca DO Cosigner Signature (if applicable): CC: ~ Signed [facility] Work Phone: [phone] 190-415403-01-[address] Crouch [facility] August 03, 2022 6:11pm Note Date/Time August 03, 2022 8:48 am [facility] Medical Records Department [address] [place] [address] Progress Note - Hospitalist 08/03/22 0848 MR#: [id number] Acct: [id number] Name: MELVA KERNS Rep #:[id number] : 1980 42 From: Monika Crouch MD PCP: Care Physician,No Primary Status :ADM IN Location: [place] [address] Reason for Visit Reason for Visit: Diagnoses [...] Neut % (Auto) 57.5, Lymph % (Auto) 24.5,[place] % (Auto) 13.6 H, Eos % (Auto) [...] Signed: Renan Miller MD at 18:55 EST Reading Location ID and State: [address] [place] [address] , Service support , Physical Exam Narrative General: Alert, oriented, [...] of alcohol abuse, tobacco use, pancreatitispresented to [facility] 07/28/2022 with abdominal pain/nausea/vomiting. It felt [...] documentation, 40minutes Charges/Coding Visit Charges Inpatient E&M: 32374 [facility] Hosp L3 08/03/221810 <Electronically signed by Monika Crouch MD> Cosigner Signature (if applicable): CC: ~ Signed [facility] Work Phone: [phone]) 178-864503-01-2023 Progress note Author Chandler Salamanca [facility] August 03, 2022 4:38pm Note Date/Time August 03, 2022 4:38 pm [facility] Medical Records Department [address] [place] [address] Progress Note 08/03/22 1635 MR#: [id number] Acct: [id number] Name: MELVA KERNS Rep #:[id number] : 1980 42 From: Chandler Salamanca DO PCP: Care Physician,No Primary Status :ADM IN Location: [facility] MD750-4 Subjective Subjective Patient states that her abdominal [...] Neut % (Auto) 57.5, Lymph % (Auto) 24.5,[place] % (Auto) 13.6 H, Eos % (Auto) [...] hepatitis from current work-up. She did have anti-CUSTOM TAILOR APPRENTICE antibody that is positive but that is [...] hematology consultation. Charges/Coding Visit Charges Inpatient E&M: 59329 Subs Hosp L3 08/03/22 1638 <Electronically signed by Chandler Friend > Chandler Salamanca DO Cosigner Signature (if applicable): CC: ~ Signed [facility] Work Phone: [phone] 950-926902-28-[address] Urena [facility] August 02, 2022 7:23pm Note Date/Time August 02, 2022 6:52pm [facility] Cancer Care [address] [place] [address] Consultation - Oncology IP 08/02/22 1846 MR#: [id number] Acct: [id number] Name: MELVA KERNS Rep #:[id number] : 1980 42 From: Lonnie Urena MD PCP: Care Physician,No Primary Status :ADM IN Location: [place] [address] Assessment & Plan Assessment/Plan (1) Pancreatitis: Status: [...] eating liquid diet. Advanced Directives Power of Coverstitch Machine Operator: No Living Will: No [facility] Medical History Alcohol abuse Pancreatitis Smoker Home [...] History (Updated 07/28/22 @ 10:[address] oJvanna Leonard DO) household members: significant other and [...] Albumin (CAROL) 2.8 L, Albumin/Globulin (CAROL) 1.1, Qdzkv-9-Oczqvavut CAROL 0.4, Iwfkl-5-Yqptzptlf CAROL 0.6, Beta-Globulins (CAROL) 1.1, Gamma Globulins (CAROL) 0.5, CAROL M-Darron , CRAOL Comments Comment, c-ANCA Antibody <1:20, Atypical p-ANCA [...] Neut % (Auto) 55.8, Lymph % (Auto) 28.5,[place] % (Auto) 12.4 H, Eos % (Auto) [...] Charges/Coding Visit Charges Office Visits / Consults: 13442 IP Consult L4 08/02/221922 <Electronically signed by Lonnie Urena MD> CC: ROHAN Ballesteros; Dr. Jose Francisco Emmanuel MD; Dr. Lonnie Urena MD; Dr. Jovanna Leonard DO; Dr. Jose Antonio Krishnamurthy MD; Dr. Monika Crouch MD; Dr. René Read MD; Dr. Roberto Pagan MD; Dr. Florentin Blanc MD; Dr. Jeovany Gilbert DO; No Primary Care Physician; Chandler Salamanca, ~ Signed [facility] Work Phone: [phone] Crouch [facility] August 02, 2022 5:13pm Note Date/Time August 02, 2022 7:34am [facility] Medical Records Department [address] [place] [address] Progress Note - Hospitalist 08/02/22 0731 MR#: [id number] Acct: [id number] Name: MELVA KERNS Rep #:[id number] : 1980 42 From: Monika Crouch MD PCP: Care Physician,No Primary Status :ADM IN Location: [place] [address] Reason for Visit Reason for Visit: Diagnoses [...] Albumin (CAROL) 2.8 L, Albumin/Globulin (CAROL) 1.1, Xrtcf-3-Hsruioycx CAROL 0.4, Qjari-4-Oouvkmfmf CAROL 0.6, Beta-Globulins (CAROL) 1.1, Gamma Globulins (CAROL) 0.5, CAROL M-Darron , CAROL Comments Comment, c-ANCA Antibody <1:20, Atypical p-ANCA <1:20, p- ANCA Antibody <1:20 07/30/22 11:02: LIZETTE-1 Antibody <0.2, SS-A/Ro IgG Antibody < 0.2, SS-B/La IgG Antibody < 0.2, Sm (Lee) Antibody <0.2, CUSTOM TAILOR APPRENTICE Antibody 0.3, Scl-70 Scleroderma Ab <0.2, Double [...] Neut % (Auto) 55.8, Lymph % (Auto) 28.5,[place] % (Auto) 12.4 H, Eos % (Auto) [...] of alcohol abuse, tobacco use, pancreatitispresented to [facility] 07/28/2022 with abdominal pain/nausea/vomiting. It felt [...] documentation, 35minutes Charges/Coding Visit Charges Inpatient E&M: 09579 Subs Hosp L2 08/02/22 0743 <Electronically signed [...] Cosigner Signature (if applicable): cc: ~* Signed [facility] Work Phone: [phone] 864-626202-28-2023 Progress note Author Chandler Friend [facility] August 02, 2022 4:39pm Note Date/Time August 02, 2022 4:39pm [facility] Medical Records Department [address] [place] [address] Progress Note 08/02/22 1637 MR#: [id number] Acct: [id number] Name: MELVA KERNS OCTOBER Rep #:[id number] : 1980 42 From: Chandler Friend DO PCP: Care Physician,No Primary Status :ADM IN Location: [place] RB237-7 Subjective Subjective Patient is still requiring a [...] Albumin (CAROL) 2.8 L, Albumin/Globulin (CAROL) 1.1, Asbdm-7-Nujalwbfn CAROL 0.4, Ffcwn-1-Imemcdcra CAROL 0.6, Beta-Globulins (CAROL) 1.1, Gamma Globulins [...] Neut % (Auto) 55.8, Lymph % (Auto) 28.5,[place] % (Auto) 12.4 H, Eos % (Auto) [...] hepatitis from current work-up. She did have anti-CUSTOM TAILOR APPRENTICE antibody that is positive but that is [...] hematology consultation. Charges/Coding Visit Charges Inpatient E&M: 36635 Subs Hosp L3 08/02/22 1639 <Electronically signed by Chandler Salamanca DO> Chandler Salamanca DO Cosigner Signature (if applicable): CC: ~ Signed [facility] Work Phone: [phone] Crouch [facility] August 01, 2022 7:29pm Note Date/Time August 01, 2022 8:37am [facility] Medical Records Department [address] [place] [address] Progress Note - Hospitalist 08/01/22 0833 MR#: [id number] Acct: [id number] Name: MELVA KERNS Rep #:[id number] : 1980 42 From: Monika Crouch MD PCP: Care Physician,No Primary Status :ADM IN Location: [facility] FV236-4 Reason for Visit Reason for Visit: Diagnoses [...] 70.3 H, Lymph % (Auto) 16.7 L, [place] % (Auto) 10.2 H, Eos % (Auto) [...] of alcohol abuse, tobacco use, pancreatitispresented to [facility] 07/28/2022 with abdominal pain/nausea/vomiting. It felt [...] documentation, 35minutes Charges/Coding Visit Charges Inpatient E&M: 45295 Subs Hosp L2 08/01/221928 <Electronically signed by Monika Crouch MD> Cosigner Signature (if applicable): CC: ~ Signed [facility] Work Phone: [phone]) [phone] Progress note Author Chandler Salamanca [facility] August 01, 2022 5:29pm Note Date/Time August 01, 2022 5:26pm [facility] Medical Records Department [address] [place] [address] Progress Note 08/01/22 1724 MR#: [id number] Acct: [id number] Name: MELVA KERNS Rep #:[id number] : 1980 42 From: Chandler Salamanca DO PCP: Care Physician,No Primary Status :ADM IN Location: [facility] ET769-8 Subjective Subjective Patient did have some abdominal [...] Antibody < 0.2, Sm (Lee) Antibody <0.2, CUSTOM TAILOR APPRENTICE Antibody 0.3, Scl-70 Scleroderma Ab <0.2, Double [...] 70.3 H, Lymph % (Auto) 16.7 L, [place] % (Auto) 10.2 H, Eos % (Auto) [...] hepatitis from current work-up. She did have anti-CUSTOM TAILOR APPRENTICE antibody that is positive but that is [...] hematology consultation. Charges/Coding Visit Charges Inpatient E&M: 15364 Subs Hosp L3 08/01/22 1729 <Electronically signed by Chandler Salamanca DO> Chandler Salamanca DO Cosigner Signature (if applicable): CC: ~ Signed [facility] Work Phone: 1(722) 113-828002-26-[address] Leonard [facility] July 31, 2022 1:36pm Note Date/Time July 31, 2022 1:36pm [facility] Medical Records Department [address] [facility] [place] [address] Progress Note - Hospitalist 07/31/22 1329 MR#: [id number] Acct: [id number] Name: MELVA KERNS Rep #:[id number] : 1980 42 From: Jovanna Leonard DO PCP: Care Physician,No Primary Status :ADM IN Location: [place] [address] Reason for Visit Reason for Visit: Abdominal [...] (Auto) 67.9, Lymph % (Auto) 18.6 L, [place] % (Auto) 10.7 H, Eos % (Auto) [...] -Full code Charges/Coding Visit Charges Inpatient E&M: 29551 Subs Hosp L2 07/31/22 1336 <Electronically signed by Jovanna Leonard DO> Cosigner Signature (if applicable): CC: ~ Signed [facility] Work Phone: [phone] Progress note Author Chandler Salamanca [facility] July 31, 2022 11:57am Note Date/Time July 31, 2022 11:57am [facility] Medical Records Department [address] [facility] [place] [address] Progress Note 07/31/22 1152 MR#: [id number] Acct: [id number] Name: MELVA KERNS Rep #:[id number] : 1980 42 From: Chandler Salamanca DO PCP: Care Physician,No Primary Status :ADM IN Location: [place] [address] Subjective Subjective Patient has been up and [...] (Auto) 67.9, Lymph % (Auto) 18.6 L, [place] % (Auto) 10.7 H, Eos % (Auto) [...] hematology consultation. Charges/Coding Visit Charges Inpatient E&M: 95360 Subs Hosp L3 07/31/22 1157 <Electronically signed by Chandler Salamanca DO> Chandler Salamanca DO Cosigner Signature (if applicable): CC: ~ Signed [facility] Work Phone: [phone]) 589-353602-25-[address] Leonard [facility] July 30, 2022 1:50pm Note Date/Time July 30, 2022 1:50pm [facility] Medical Records Department [address] [place] [address] Progress Note - Hospitalist 07/30/22 1340 MR#: [id number] Acct: [id number] Name: MELVA KERNS Rep #:[id number] : 1980 42 From: Jovanna Leonard DO PCP: Care Physician,No Primary Status :ADM IN Location: [place] [address] Reason for Visit Reason for Visit: Abdominal [...] 71.4 H, Lymph % (Auto) 16.5 L, [place] % (Auto) 9.4, Eos % (Auto) 1.9, [...] -Full code Charges/Coding Visit Charges Inpatient E&M: 73069 Subs Hosp L2 07/30/22 1350 <Electronically signed by Jovanna Leonard DO> Cosigner Signature (if applicable): CC: ~ Signed [facility] Work Phone: [phone]) 281-738702-25-2023 Progress note Author Chandler Salamanca [facility] July 30, 2022 10:48am Note Date/Time July 30, 2022 10:40am [facility] Medical Records Department [address] [place] [address] Progress Note 07/30/22 1039 MR#: [id number] Acct: [id number] Name: MELVA KERNS Rep #:[id number] : 1980 42 From: Chandler Salamanca DO PCP: Care Physician,No Primary Status :ADM IN [facility] Subjective Patient's abdominal pain is a [...] 71.4 H, Lymph % (Auto) 16.5 L, [place] % (Auto) 9.4, Eos % (Auto) 1.9, [...] later time. Charges/Coding Visit Charges Inpatient E&M: 15773 Subs Hosp L3 07/30/22 1048 <Electronically signed by Chandler Salamanca DO> Chandler Salamanca DO Cosigner Signature (if applicable): CC: ~ Signed [facility] Work Phone: [phone]) [phone] Progress note Author Chandler Salamanca [facility] July 29, 2022 5:30pm Note Date/Time July 29, 2022 5:28pm [facility] Medical Records Department [address] [place] [address] Progress Note 07/29/22 1727 MR#: [id number] Acct: [id number] Name: MELVA KERNS Rep #:[id number] : 1980 42 From: Chandler Salamanca DO PCP: Care Physician,No Primary Status :ADM IN Location: [place] [address] Subjective Subjective She rates her pain at [...] 85.9 H, Lymph % (Auto) 6.3 L, [place] % (Auto) 6.3, Eos % (Auto) 0.6, [...] later time. Charges/Coding Visit Charges Inpatient E&M: 56888 Subs Hosp L3 07/29/22 1730 <Electronically signed by Chandler Salamanca DO> Chandler Salamanca DO Cosigner Signature (if applicable): CC: ~ Signed [facility] Work Phone: [phone]) 560-136602-24-[address] Leonard [facility] July 29, 2022 12:02pm Note Date/Time July 29, 2022 11:45am [facility] Medical Records Department [address] [place] [address] Progress Note - Hospitalist 07/29/22 1143 MR#: [id number] Acct: [id number] Name: MELVA KERNS Rep #:[id number] : 1980 42 From: Jovanna Leonard DO PCP: Care Physician,No Primary Status :ADM IN Location: [place] 731120-1 Reason for Visit Reason for Visit: Abdominal [...] 85.9 H, Lymph % (Auto) 6.3 L, [place] % (Auto) 6.3, Eos % (Auto) 0.6, [...] -Full code Charges/Coding Visit Charges Inpatient E&M: 99526 Subs Hosp L2 07/29/22 1202 <Electronically signed by Jovanna Leonard DO> Cosigner Signature (if applicable): CC: ~ Signed [facility] Work Phone: [phone] Consult note Author Chandler Friend [facility] July 28, 2022 5:53pm Note Date/Time July 28, 2022 5:47pm [facility] Medical Records Department [address] [place] [address] Consultation - GI 07/28/22 1745 MR#: [id number] Acct: [id number] Name: MELVA KERNS OCTOBER Rep #:[id number] : 1980 42 From: Chandler Salamanca DO PCP: Care Physician,No Primary Status :ADM IN [facility] Consult Data Date of Consult: 07/28/22 [...] she does complain of some chest pain. PFSH Medical History Alcohol abuse Pancreatitis Smoker [...] 82.5 H, Lymph % (Auto) 9.9 L, [place] % (Auto) 5.6, Eos % (Auto) 1.1, [...] Clarity Cloudy, Urine pH 6.0, Ur Specific Willard 1.020, Urine Protein 100 H, Urine Glucose [...] the thrombosis. Charges/Coding Visit Charges Inpatient E&M: 10285 Init Hosp L3 07/28/22 5738 <Electronically signed by Chandler Friend DO> Cosigner Signature (if applicable): CC: No Primary Care Physician~ Signed [facility] Work Phone: [phone] Cottrell [facility] July 28, 2022 3:23pm Note Date/Time July 28, 2022 7:30am [facility] Medical Records Department [address] [place] [address] Emergency Department Summary 07/28/22 MR#: [id number] Acct: [id number] Name: MELVA KERNS Rep #:[id number] : 1980 42 From: Sal Small PCP: Care Physician,No Primary Status :ADM IN [facility] HPI - GI History of Present [...] 82.5 H Lymph % (Auto) 9.9 L [place] % (Auto) 5.6 Eos % (Auto) 1.1 [...] Color Urine Clarity Urine pH Ur Specific Willard Urine Protein Urine Glucose (UA) Urine Ketones Urine Occult Blood Urine Nitrite Urine Bilirubin Urine Urobilinogen Ur Leukocyte Esterase Urine RBC Urine WBC Ur Squamous Epith Cells Urine Bacteria Urine Mucus 07/28/22 07/28/22 06:20 06:55 WBC RBC Hgb Hct MCV MCH MCHC RDW Std Deviation RDW Coeff of Frankie Plt Count MPV Immature Gran % (Auto) Neut % (Auto) Lymph % (Auto) [place] % (Auto) Eos % (Auto) Baso % [...] Clarity Cloudy Urine pH 6.0 Ur Specific Willard 1.020 Urine Protein 100 H Urine Glucose [...] Provider] - Disposition Disposition: Acute Care [facility] What to do if you have Problems For any increased pain, shortness of breath, bleeding, nausea or vomiting, chestpain, or any unexpected problems, contact your Primary Care Provider. Call [facility] ([phone]) or report to the closest Emergency Room. Call 911 if necessary. 07/28/22 1523 <Electronically signed by Sal Cottrell DO> Cosigner Signature (if applicable): CC: No Primary Care Physician ~ Signed [facility] Work Phone: [phone] History and physical note Author Dr. Leonard [facility] July 28, 2022 10:58am Note Date/Time July 28, 2022 10:58am [facility] Medical Records Department [address] [place] [address] H&P Exam - Hospitalist 07/28/22 1041 MR#: [id number] Acct: [id number] Name: MELVA KERNS Rep #:[id number] : 1980 42 From: Jovanna Leonard DO PCP: Care Physician,No Primary Status :ADM IN Location: [facility] [id number] HPI - General General Date of Admission: 07/28/22 Date of Service: 07/28/22 Chief Complaint: Abdominal pain/nausea/vomiting HPI Narrative MELVA KERNS, is a 42 F who [facility]22 with a chief complaint [...] antiemetics and request for admission was made. [facility] Medical History Alcohol abuse Pancreatitis Smoker Home [...] 82.5 H, Lymph % (Auto) 9.9 L, [place] % (Auto) 5.6, Eos % (Auto) 1.1, [...] Total Protein 7.7, Albumin 3.8, Globulin 3.9, Aaxtbl1011 H 07/28/22 06:55: Urine Color Yellow, Urine Clarity Cloudy, Urine pH 6.0, Ur Specific Willard 1.020, Urine Protein 100 H, Urine Glucose [...] -Full code Charges/Coding Visit Charges Inpatient E&M: 02307 Init Hosp L3 07/28/22 1058 <Electronically signed by Jovanna Leonard DO> Cosigner Signature (if applicable): CC: Dr. Jovanna Leonard, ; No Primary Care Physician~ Signed [facility] Work Phone: [phone] 201-702210-21-2022 Miscellaneous Notes* Telephone Encounter - Daniel Green [...] care with PCP for gastrointestinal issues by [facility]. They prescribed medication, however, it will run out prior to the scheduled appointment. Patient is requesting a refill request be sent by [facility]. She was made aware that she will need to keep her establishing appointment if the practice does decide to fill her prescriptions prior to seeing her. The patient voiced u nderstanding. [facility] Note. MICRO - Microbiology PROCEDURE: Urine [...] Locations *1: This test was performed at: [address], [facility] , [facility] ([place])Comment on above:Performed By: #### CBC, ADIFF, ANEU, LIPID, CMP #### [address] [address] #### GFR #### [address] [address]Cxrjsip note Author Landy Smith [facility] December 21, 2022 1:53pm Note Date/Time December 21, 2022 1:51 pm [facility] Medical Records Department [address] [place] [address] Counseling Note - Pharmacy 12/21/22 1350 MR#: [id number] Acct: [id number] Name: MELVA KERNS RAINE Rep #:[id number] : 1980 42 From: Landy Smith PCP: Care Physician,No Primary Status :ADM IN Y Location: VT3 GM498-6 Pharmacy [facility] Pharmacy Service has performed discharge medication reconciliation [...] of their dischargemedications. Patient counseled by pharmacy ancillary, Tu. Medications at Discharge Home Medications tramadol 50 mg tablet 50 mg PO Q6H PRN pain #30 tabs 08/10/22 enoxaparin 100 mg/mL subcutaneous syringe (Lovenox) 90 mg (0.9 mL) subcut Q24H 30 days #27 mL 10/20/22 omeprazole 20 mg capsule,delayed release 20 mg PO DAILY ACIF REFLUX #30 caps 10/26/22 acetaminophen 500 mg tablet (Acetaminophen Extra Strength) 500 mg PO Q6H PRN pain 12/14/22 ejdina-meqixkql-evqpasm 24,000-76,000-120,000 unit capsule,delayed rel (Creon) 1cap PO [...] Signature (if applicable): Date CC: ~ Signed [facility] Work Phone: Discharge summary Author Dr. Crouch [facility] August 05, 2022 3:11pm Note Date/Time August 05, 2022 3:11 pm [facility] Medical Records Department [address] [place] [address] Instructions for Home/Discharge Instructions 08/05/22 1506 MR#: [id number] Acct: [id number] Name: MELVA KERNS Rep #:[id number] : [...] Pagan ; Jeovany Gilbert ; Joan Ballesteros SENIOR PROCESS ENGINEER Instructions Patient Instructions: ED Pancreatitis Additional Instructions [...] tabs twice daily and would recommend obtaining txsk-ztw-amzgtlo metamucil which you will take 1 tablespoon [...] to schedule your hospital follow-up appointment (ph. [phone]). He wants to see him in 1 [...] with your preferred phone number on file ([phone]) and asked that they callto schedule an [...] you refrain from any alcohol drinking. [facility] located at [address] [place], [place] [id number] (ph [phone]) if you are interested in further resources or use the contact information provided to you -Please call a primary care office on Monday to schedule an establish care visit -Any new prescriptions were sent to your preferred pharmacy on file the [facility] -For any concerning signs or symptoms please [...] to schedule your hospital follow-up appointment (ph. [phone]). He wants to see him in 1 [...] by Monika Crouch MD>Monika Crouch MD CC: SENIOR PROCESS ENGINEER-Cecy Ballesteros; Dr. Jose Francisco Emmanuel MD; Dr. Lonnie Urena MD; Dr. Jovanna Leonard DO; Dr. Jose Antonio Krishnamurthy MD; Dr. René Read MD; Dr. Roberto Pagan MD; Dr. Florentin Blanc MD; Dr. Jeovany Gilbert, ; No Primary Care Physician~ Signed [facility] Work Phone: Discharge summary Author Cong Amberdat [facility] January 02, 2023 6:33am Note Date/Time January 02, 2023 6:19 am [facility] Medical Records Department [address] [place] [address] Emergency Department Summary 01/02/23 MR#: [id number] Acct: [id number] Name: MELVA KERNS RAINE Rep #:[id number] : 1980 42 From: Cong Marquez DO PCP: Care Physician,No Primary Status :ADM TRACE Location: MS3 [id number] HPI History of Present Illness Chief Complaint: [...] to mild nausea associated with the pain. [facility] Medical History (Updated 01/02/23 @ 06:33 [...] PRN pain 12/14/22 [History Last Taken 12/14/22] pwmlyg-wksnflzw-wuxmrkp 24,000-76,000-120,000 unit capsule,delayed rel (Creon) 1cap PO [...] PO Q8H PRN PRN Nausea #10 tabs 07/27/23 [Rx Last Taken Unknown] Allergy/AdvReac Type Severity [...] % (Auto) 59.8 Lymph % (Auto) 27.7 [place] % (Auto) 7.0 Eos % (Auto) 3.6 [...] alcohol abuse Disposition Disposition: Acute Care Hospital [facility] What to do if you have Problems For any increased pain, shortness of breath, bleeding, nausea or vomiting, chestpain, or any unexpected problems, contact your Primary Care Provider. Call [facility] ([phone]) or report to the closest Emergency Room. Call 911 if necessary. 01/02/23 0633 <Electronically signed by Cong Marquez DO> Cosigner Signature (if applicable): CC: No Primary Care Physician ~ Signed [facility] Work Phone: Discharge summary Author Sal Cassidy [facility] January 04, 2023 2:22pm Note Date/Time January 04, 2023 2:1 0pm [facility] Medical Records Department [address] [facility] [place] [address] Instructions for Home/Discharge Instructions 01/04/23 1408 MR#: [id number] Acct: [id number] Name: MELVA KERNS Rep #:[id number] : [...] you follow up with gastroenterology up in [place] for further evaluation. Discharge Orders/Prescriptions Prescriptions: New [...] Qty: 30 2RF Referrals / Follow Up: [facility] [Provider Group] - Within 2 Weeks Care Physician,No Primary [Primary Care Provider] - Disposition Disposition (needs filled in before D/C Order can be placed): Against Medical Advice 01/04/231421<Electronically signed by Sal Cassidy DO>Sal Cassidy DO CC: Dr. Caty Flynn MD; Dr. Bisi Alas MD; No Primary Care Physician ~ Signed [facility] Work Phone: Discharge summary Author Sal [facility] January 04, 2023 2:26pm Note Date/Time January 04, 2023 2:2 7pm [facility] Medical Records Department [address] [place] [address] Discharge Summary 01/04/231421 MR#: [id number] Acct: [id number] Name: MELVA KERNS OCTOBER Rep #:[id number] : 1980 42 From: Sal Cassidy DO PCP: Care Physician,No Primary Status :DIS IN Location: [facility] [id number] Providers Date of Admission: 01/03/23 Primary Care Physician: No Primary Care Phys Consultations 01/02/23 07:19 Consult: Gastroenterology Routine Consulting Provider: [facility] Reason for Consult: Recurrent abd pain, recent CBD stent EMERGENT Consult: No Notified: Yes Date Notified: 01/02/23 Time Notified: 06:17 Method of Notification: ED Physician Initiated 01/02/23 09:41 Consult: General Surgery Routine Consulting Provider: iBsi Alas Reason for Consult: choledocholithiasis EMERGENT Consult: No Notified: Yes Date Notified: 01/02/23 Time Notified: 09:41 Method of Notification: Text Reason For Visit: ABDOMINAL PAIN Diagnosis Discharge Diagnosis (1) Abdominal pain: Status: Acute Code(s): R10.9 - Unspecified abdominal pain Qualifiers: Abdominal location: right upper quadrant Qualified Code(s): R10.11 - Right upper quadrant pain Plan: / biliary sludge Recurrent abdominal pain, worsening with [...] discharge and follow up with gastroenterology in [place]. Pt informed nursing that she did not [...] 500 mg PO Q6H PRN pain 12/14/22 kjnaaj-criowpxl-vgiagje 24,000-76,000-120,000 unit capsule,delayed rel (Creon) 1cap PO [...] H, RDW Coeff of Frankie 13.2, Plt Exeqc092, MPV 10.2, Immature Gran % (Auto) 0.400, Neut % (Auto) 78.6 H, Lymph % (Auto) 17.8 L, [place] % (Auto) 2.8, Eos % (Auto) 0.0, [...] Signed: Jake Garland MD at 19:03 EDT Reading Location ID and State: [facility] / [place] , Service support , D/C Instructions Discharge Diet: No restrictions [...] you follow up with gastroenterology up in [place] for further evaluation. Discharge Orders/Prescriptions Prescriptions: New [...] Qty: 30 2RF Referrals / Follow Up: [facility] [Provider Group] - Within 2 Weeks Care Physician,No Primary [Primary Care Provider] - Disposition Disposition (needs filled in before D/C Order can be placed): Against Medical Advice Charges/Coding Visit Charges Inpatient E&M: 84004 Disch Hosp >30min 01/04/23 1426 <Electronically signed by Sal Cassidy DO> Cosigner Signature (if applicable): CC: Dr. Sal Cassidy DO; No Primary Care Physician~ Signed [facility] Work Phone: evaluation note* Diagnosis Onset Date Resolution Status Acute pancreatitis acute Hypokalemia acute [facility] Work Phone: evaluation note* Diagnosis Onset Date Resolution Status Acute pancreatitis resolved Hypokalemia resolved [facility] Work Phone: evaluation note* Diagnosis Onset Date Resolution Status Acute pancreatitis resolved Hypokalemia resolved Pancreatitis acute [facility] Work Phone: Evaluation note* Diagnosis Onset Date Resolution Status Pancreatitis resolved [facility] Work Phone: Evaluation note* Diagnosis Onset Date Resolution Status Pancreatitis resolved Acute hypokalemia acute Acute pancreatitis acute [facility] Work Phone: Evaluation note* Diagnosis Onset Date Resolution Status Alcohol abuse acute Hypokalemia acute Leukocytosis acute Nausea & vomiting acute Pancreatitis acute Superior mesenteric vein thrombosis acute Transaminitis acute [facility] Work Phone: Evaluation note* Diagnosis Onset Date Resolution Status Abnormal magnetic resonance cholangiopancreatography (MRCP) acute Alcohol abuse acute Hypokalemia acute Hypomagnesemia acute Leukocytosis acute Nausea & vomiting acute Pancreatitis acute Pleural effusion acute Portal vein thrombosis acute Superior mesenteric vein thrombosis acute Thrombosis acute Transaminitis acute [facility] Work Phone: Evaluation note* Diagnosis Onset Date Resolution Status Alcohol abuse acute Pancreatitis chronic Portal vein thrombosis chron ic Pleural effusion resolved Pancreatitis chronic Portal vein thrombosis chron ic Abdominal pain acute Portal vein thrombosis chron ic Hypokalemia acute Portal vein thrombosis chron ic [facility] Work Phone: Evaluation note* Diagnosis Onset Date Resolution Status Pancreatitis chronic Portal vein thrombosis chron ic Abdominal pain acute Portal vein thrombosis chron ic Hypokalemia acute Portal vein thrombosis chron ic Abnormal liver function test acute Hypokalemia acute Portal vein thrombosis chron ic [facility] Work Phone: Evaluation note* Diagnosis Onset Date Resolution Status Abdominal pain acute Portal vein thrombosis chron ic Hypokalemia acute Portal vein thrombosis chron ic Abnormal liver function test acute Hypokalemia acute Portal vein thrombosis chron ic Abdominal pain acute Abnormal liver function test acute Alcohol abuse acute Bacteriuria acute Hypertension, accelerated ac [place] Hypokalemia acute Transaminitis acute UTI (urinary tract infection) acute Pancreatitis [place] Work Phone: Evaluation note* Diagnosis Onset Date Resolution Status Abdominal pain acute Portal vein thrombosis chron ic Hypokalemia acute Portal vein thrombosis chron ic Abnormal liver function test acute Hypokalemia acute Portal vein thrombosis chron ic Abdominal pain acute Abnormal liver function test acute Alcohol abuse acute Bacteriuria acute Hypertension, accelerated ac [place] Hypokalemia acute Hypomagnesemia acute Hypoxia acute Transaminitis acute UTI (urinary tract infection) acute CHF exacerbation chronic Pancreatitis chronic Portal vein thrombosis chron ic [facility] Work Phone: Evaluation note* Diagnosis Onset Date Resolution Status Portal vein thrombosis chron ic Portal vein thrombosis chron ic Portal vein thrombosis chron ic Hypertension, accelerated re solved Hypomagnesemia resolved Hypoxia resolved [facility] Work Phone: Evaluation note* Diagnosis Onset Date Resolution Status Hypertension, accelerated re solved Hypomagnesemia resolved Hypoxia resolved Right upper quadrant abdominal pain acute Abdominal pain acute Elevated liver enzymes acute Gallbladder sludge acute History of alcohol abuse acu te Intractable abdominal pain a cute [facility] Work Phone: Evaluation note* Diagnosis Alcohol-induced chronic pancreatitis (HCC)- Primary Chronic pancreatitis documented in this encounter [facility] note* Diagnosis Alcohol-induced chronic pancreatitis (HCC)- Primary Chronic pancreatitis documented in this encounter [facility] note* Diagnosis Onset Date Resolution Status Portal vein thrombosis resol alhaji Hypertension, accelerated re solved Hypomagnesemia resolved Hypoxia resolved Portal vein thrombosis resol alhaji Portal vein thrombosis resol alhaji Abdominal pain acute Intractable abdominal pain a cute Elevated liver enzymes resol alhaji Gallbladder sludge resolved Portal vein thrombosis resol [facility] Work Phone: Evaluation note* Diagnosis Onset Date Resolution Status Hypertension, accelerated re solved Hypomagnesemia resolved Hypoxia resolved Portal vein thrombosis resol alhaji Portal vein thrombosis resol alhaji Abdominal pain acute Intractable abdominal pain a cute Elevated liver enzymes resol alhaji Gallbladder sludge resolved Portal vein thrombosis resol [facility] Work Phone: Evaluation note* Diagnosis Essential [...] at today's visit. documented in this encounter [facility] note* Diagnosis Onset Date Resolution Status Portal vein thrombosis resol alhaji [facility] Work Phone: Evaluation noteNo assessment information available [facility] Work Phone: evaluation note* Diagnosis Alcohol-induced chronic pancreatitis (HCC) Chronic pancreatitis documented in this encounter [facility] note* Diagnosis Alcohol-induced chronic pancreatitis (HCC) Chronic pancreatitis documented in this encounter [facility] note* Diagnosis Nipple discharge- Primary Other sign and symptom in breast documented in this encounter [facility] note* Diagnosis Alcohol-induced chronic pancreatitis (HCC)- Primary Chronic pancreatitis [facility] Diagnosis Acute on chronic pancreatitis (HCC)- Primary [facility]* Diagnosis Onset Date Resolution Status Breast abscess acute Breast abscess acute Breast abscess acute [facility] Work Phone: evaluation note* Diagnosis Acute on chronic pancreatitis (HCC) [facility]* Diagnosis Pancreatitis, necrotizing- Primary Acute pancreatitis [facility]* Diagnosis Pancreatitis, necrotizing Acute pancreatitis [facility]* Diagnosis Alcohol-induced chronic pancreatitis (HCC)- Primary Chronic pancreatitis [facility]* Diagnosis Common bile duct (CBD) stricture- Primary Obstruction of bile duct Encounter for removal of biliary stent documented in this encounter [facility] note* Diagnosis Biliary stricture- Primary Obstruction of bile duct documented in this encounter [facility] note* Diagnosis Common bile duct (CBD) stricture Obstruction of bile duct Encounter for removal of biliary stent [facility]* Diagnosis Essential hypertension- Primary Unspecified essential [...] Primary Chronic pancreatitis documented in this encounter [facility] note* Diagnosis Essential hypertension- Primary Unspecified essential [...] Sober since 12/2022 documented in this encounter [facility] note* Diagnosis Essential hypertension- Primary Unspecified essential [...] disease of pancreas [facility]* Diagnosis Essential hypertension- Primary Unspecified essential [...] year. * Assessment & Plan Note - aRdha Sears APRN.CNP - 05/21/2024 8:30 AM EST [...] at today's visit. [facility] Diagnosis Essential hypertension- Primary Unspecified [...] malignant neoplasms, colon documented in this encounter [facility] note* Diagnosis Essential hypertension- Primary Unspecified essential [...] Assessment & Plan Note - Blair Aggarwal APRN.LOSS PREVENTION INVESTIGATOR - 07/17/2024 10:51 AM EST Associated Problem(s): [...] the planned procedure. documented in this encounter [facility] note* Diagnosis Essential hypertension- Primary Unspecified essential [...] disease of pancreas documented in this encounter [facility] note* Diagnosis Essential hypertension- Primary Unspecified essential [...] in today's visit. [facility] Diagnosis Essential hypertension- Primary Unspecified [...] disease of pancreas [facility]* Diagnosis Essential hypertension- Primary Unspecified essential [...] (HCC) Chronic pancreatitis [facility]* Diagnosis Essential hypertension- Primary Unspecified essential [...] Primary Chronic pancreatitis [facility] Author Dr. Leonard [facility] July 28, 2022 10:58am Note Date/Time July 28, 2022 10:58am [facility] Medical Records Department [address] [place] [address] H&P Exam - Hospitalist 07/28/22 1041 MR#: [id number] Acct: [id number] Name: MELVA KERNS OCTOBER Rep #:[id number] : 1980 42 From: Jovanna Leonard DO PCP: Care Physician,No Primary Status :ADM IN Location: [facility] [id number] HPI - General General Date of Admission: 07/28/22 Date of Service: 07/28/22 Chief Complaint: Abdominal pain/nausea/vomiting HPI Narrative MELVA KERNS, is a 42 F who presented to the emergency department [facility] on 07/28/2022 with a chief complaint of [...] antiemetics and request for admission was made. [facility] Medical History Alcohol abuse Pancreatitis Smoker Home [...] 82.5 H, Lymph % (Auto) 9.9 L, [place] % (Auto) 5.6, Eos % (Auto) 1.1, [...] Total Protein 7.7, Albumin 3.8, Globulin 3.9, [id number] H 07/28/22 06:55: Urine Color Yellow, Urine Clarity Cloudy, Urine pH 6.0, Ur Specific Willard 1.020, Urine Protein 100 H, Urine Glucose [...] -Full code Charges/Coding Visit Charges Inpatient E&M: 14497 Init Hosp L3 07/28/22 1058 <Electronically signed by Jovanna Leonard DO> Cosigner Signature (if applicable): CC: Dr. Jovanna Leonard DO; No Primary Care Physician~ Signed [facility] Work Phone: History and physical note Author Sal Cassidy [facility] December 14, 2022 4:57pm Note Date/Time December 14, 2022 4:52 pm [facility] Medical Records Department [address] [place] [address] H&P Exam - Hospitalist 12/14/22 1642 MR#: [id number] Acct: [id number] Name: MELVA KERNS OCTOBER Rep #:[id number] : 1980 42 From: Sal Cassidy DO PCP: Care Physician,No Primary Status :ADM IN Location: [facility] [id number] [facility] Date of Service: 12/14/22 Chief Complaint: abdominal pain. [facility] Narrative MELVA KERNS, is a 42 F [...] [facility] still [facility] Alcohol abuse Anticoagulant long-term use [...] PRN pain 12/14/22 [History Last Taken 12/14/22] vtdvbx-oyvttnwp-zatwsak 24,000-76,000-120,000 unit capsule,delayed rel (Creon) 1cap PO [...] 77.4 H, Lymph % (Auto) 14.5 L, [place] % (Auto) 5.0, Eos % (Auto) 2.2, [...] 118 H, Calcium 9.4, Total Bilirubin 0.50, ZUW267 H, ALT 272 H, Alkaline Phosphatase 134 H, Total Protein 7.7, Albumin 3.5, Globulin 4.2, Albumin/Globulin Ratio 0.8 L, Lipase 787 H 12/14/22 14:45: Urine Color Yellow, Urine Clarity Sl. Cloudy, Urine pH 6.0, Ur Specific Willard 1.020, Urine Protein 100 H, Urine Glucose [...] already anticoagulated. Charges/Coding Visit Charges Inpatient E&M: 32964 Init Hosp L3 12/14/22 9412 <Electronically signed by Sal Cassidy DO> Cosigner Signature (if applicable): CC: Dr. Sal Cassidy DO; No Primary Care Physician~ Signed [facility] Work Phone: History and physical note Author Caty Flynn [facility] January 02, 2023 6:34am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 Directives No July 14, 2016 6:26am Living Will No July 28, 2 023 6:09am Power of Coverstitch Machine Operator No July 28, 2022 6:09am Advance Directive Response Recorded Date/ Time Advance Directives No July 14, 2016 6:26am Living Will No August 02, 2 023 6:51pm Power of Coverstitch Machine Operator No August 02, 2022 6:51pm Advance Directive Response Recorded Date/ Time Advance Directives No July 14, 2016 7:26am Living Will No October 19, 2022 9 :18pm Power of Coverstitch Machine Operator No October 19, 2022 9:18pm Advance Directive Response Recorded Date/ Time Advance Directives No July 14, 2016 7:26am Living Will No December 14, 2022 5:09pm Power of Coverstitch Machine Operator No December 14 5:09pm Advance Directive Response Recorded Date/ Time Advance Directives No July 14, 2016 7:26am Living Will No December 29, 2022 3:01pm Power of Coverstitch Machine Operator No December 29 3:01pm Advance Directive Response Recorded Date/ Time Advance Directives No July 14, 2016 7:26am Living Will No January 02, 2023 7:20am Power of Coverstitch Machine Operator No January 02 7:20am Advance Directive Response Recorded Date/ Time Advance Directives No July 14, 2016 7:26am Living Will No February 22, 2023 12:47pm Power of Coverstitch Machine Operator No February 12:47pm Advance Directive Response Recorded Date/ Time Advance Directives No July 14, 2016 6:26am Living Will No April 11 3:03am Power of Coverstitch Machine Operator No April 11, 2023 3:03am Advance Directive Response Recorded Date/ Time Advance Directives No July 14, 2016 6:26am Living Will No May 09 5:04pm Power of Coverstitch Machine Operator No May 09, 2023 5:04pm Advance Directive Response Recorded Date/ Time Advance Directives No July 14, 2016 6:26am Living Will No May 29, 023 7:45pm Power of Coverstitch Machine Operator No May 29, 2023 7:45pm Advance Directive Response Recorded Date/ Time Advance Directives No July 14, 2016 6:26am Living Will No August 10, 2023 8:15pm Power of Coverstitch Machine Operator No August 09 8:15pm Advance Directive Response Recorded Date/ Time Advance Directives No July 14, 2016 7:26am Living Will No August 10, 2023 9:15pm Power of Coverstitch Machine Operator No August 09 9:15pm Advance Directive Response Recorded Date/ Time Advance Directives No July 14, 2016 7:26am Living Will No September 13, 2023 7:24pm Power of Coverstitch Machine Operator No September 12 7:24pm Advance Directive Response Recorded Date/ Time Do you have a Healthcare Power of Coverstitch Machine Operator? No February 06, 2025 6:24pm Advance Directives No July 14, 2016 7:26am Advance Directive Response Recorded Date/ Time Do you have a Healthcare Power of Coverstitch Machine Operator? No February 06, 2025 6:24pm Do you have a Healthcare Power of Coverstitch Machine Operator? No February 08, 2025 1:33pm Advance Directives No July 14, 2016 7:26am [...] Hypokalemia Portal vein thrombosis Chief Complaint F/U [facility] ABD PAIN 2WKS LABS PRIOR [...] (urinary tract infection) Pancreatitis Chief Complaint F/U [facility] ABD PAIN 2WKS LABS PRIOR [...] PANCREATITIS PANCREATITIS PANCREATITIS PANCREATITIS PANCREATITIS F/U [facility] 1MO F/U -LABS- ABD PAIN Reason for Visit Portal vein thrombos is Portal vein thrombosis Portal vein thrombosis Hypertension, accelerated Hypomagnesemia Hypoxia Chief Complaint 2WKS LABS PRIOR ABDOMINAL PAIN 1MO LABS 1 DAY PRIOR Acute pancreatitis without necrosis or infection, PANCREATITIS PANCREATITIS PANCREATITIS PANCREATITIS PANCREATITIS PANCREATITIS PANCREATITIS PANCREATITIS PANCREATITIS PANCREATITIS PANCREATITIS PANCREATITIS F/U WC 1MO F/U -LABS- ABD PAIN ABDOMINAL PAIN [...] PANCREATITIS PANCREATITIS PANCREATITIS PANCREATITIS PANCREATITIS PANCREATITIS F/U WC 1MO F/U -LABS- ABD PAIN ABDOMINAL PAIN [...] PANCREATITIS PANCREATITIS PANCREATITIS PANCREATITIS PANCREATITIS PANCREATITIS F/U WC ABD PAIN ABDOMINAL PAIN ABDOMINAL PAIN ABDOMINAL [...] Complaint ABD left breast LEFT BREAST [facility] ER FU 05/29 1WK F/U 06/[address] [facility] ER FU 05[facility] [facility] ER FU 05/29 ABD PAIN Reason for Visit Breast abscess Breast abscess Breast abscess Chief Complaint left breast LEFT BREAST [facility] ER FU 05/29 1WK F/U 06/[address] [facility] ER FU 05/[address] [facility] ER FU 05/29 ABD PAIN Abd Pain Reason for Visit Breast abscess Breast abscess Breast abscess Chief Complaint Admit Date ABD PAIN February 06, 2025 4:58pm Chief Complaint Admit Date ABD PAIN February 06, 2025 4:58pm PANCREATITIS February 08, 2025 11:28am PANCREATITIS February 08, 2025 3:00pm Reason for Referral Specialty Diagnoses / Procedures Referred By Contac t Referred To Contact Pain Management Diagnoses Alcohol-induced chronic pancreatitis (HCC) Procedures CONSULT TO PAIN MGT Evelia Mak MD [address] [place] [address] Referral ID Status Reason Start Date Expiration Date Visits Requested Visits Authorized [id number] Ref Not Required PCP Requested Referral 01/24/2023 01/24/2024 1 1 Specialty Diagnoses / Procedures Referred By Contac t Referred To Contact Gastroenterology Diagnoses Alcohol-induced chronic pancreatitis (HCC) Procedures CONSULT TO GASTROENTEROLOGY OFFICE/OUTPATIENT [facility] 60-74 MINUTES Evelia Mak MD [address] [place] [address] Referral ID Status Reason Start Date Expiration Date Visits Requested Visits Authorized [id number] Pending Review PCP Requested Referral 01/18/2023 01/18/2024 1 1 Specialty Diagnoses / Procedures Referred By Contac Referred To Contact MR IMAGING Diagnoses Pancreatitis, necrotizing Procedures MRI 3D POST PROCESSING 3D RENDERING W/INTERP&POSTPROC DIFF WORK STATION Evelia Mak MD [address] [place] [address] [place] [address] Referral ID Status Reason Start Date Expiration Date V isits Requested Visits Authorized [id number] Denied Auto-Generate d Referral 09/20/2023 10/19/2024 1 0 Specialty Diagnoses / Procedures [facility]erred To Contact MR IMAGING Diagnoses Pancreatitis, necrotizing Procedures MRI PANC/BRYAN WO/W IVCON MRI ABDOMEN W/O & W/CONTRAST MATERIAL Evelia Mak MD [address] [place] [address] [place] [address] Referral ID Status Reason Start Date Expiration Date V isits Requested Visits Authorized [id number] Denied Auto-Generate d Referral 09/20/2023 10/19/2024 1 [...] section and content) DATE CREATED AUTHOR 11/29/2017 [facility] DATE CREATED AUTHOR AUTHOR'S ORGANIZ ATION 03/16/[address] [facility] [place] ([place]) DATE CREATED AUTHOR AUTHOR'S ORGANIZ ATION 08/03/2024 [facility] DATE CREATED AUTHOR AUTHOR'S ORGANIZ ATION 10/13/2024 [facility] DATE CREATED AUTHOR AUTHOR'S ORGANIZ ATION 01/24/2025 [facility] Goals (unrecognized section and content) Goals [...] or prosecute any alcohol or drug abuse patient.[facility] the event this information is protected by the Federal Confidentiality of Alcohol and Drug Abuse Patient Records regulations: The Federal rules restrict any use of the information to criminally investigate or prosecute any alcohol or drug abuse patient.[facility] HospitalIn the event this information is protected by the Federal Confidentiality of Alcohol and Drug Abuse Patient Records regulations: The Federal rules restrict any use of the information to criminally investigate or prosecute any alcohol or drug abuse patient.[facility] HospitalIn the event this information is protected by the Federal Confidentiality of Alcohol and Drug Abuse Patient Records regulations: The Federal rules restrict any use of the information to criminally investigate or prosecute any alcohol or drug abuse patient.[facility] HospitalIn the event this information is protected by the Federal Confidentiality of Alcohol and Drug Abuse Patient Records regulations: The Federal rules restrict any use of the information to criminally investigate or prosecute any alcohol or drug abuse patient.[facility] HospitalIn the event this information is protected by the Federal Confidentiality of Alcohol and Drug Abuse Patient Records regulations: The Federal rules restrict any use of the information to criminally investigate or prosecute any alcohol or drug abuse patient.[facility] HospitalIn the event this information is protected by the Federal Confidentiality of Alcohol and Drug Abuse Patient Records regulations: The Federal rules restrict any use of the information to criminally investigate or prosecute any alcohol or drug abuse patient.[facility] HospitalIn the event this information is protected by the Federal Confidentiality of Alcohol and Drug Abuse Patient Records regulations: The Federal rules restrict any use of the information to criminally investigate or prosecute any alcohol or drug abuse patient.[facility] HospitalIn the event this information is protected by the Federal Confidentiality of Alcohol and Drug Abuse Patient Records regulations: The Federal rules restrict any use of the information to criminally investigate or prosecute any alcohol or drug abuse patient.[facility] HospitalIn the event this information is protected by the Federal Confidentiality of Alcohol and Drug Abuse Patient Records regulations: The Federal rules restrict any use of the information to criminally investigate or prosecute any alcohol or drug abuse patient.[facility] HospitalIn the event this information is protected by the Federal Confidentiality of Alcohol and Drug Abuse Patient Records regulations: The Federal rules restrict any use of the information to criminally investigate or prosecute any alcohol or drug abuse patient.[facility] HospitalIn the event this information is protected by the Federal Confidentiality of Alcohol and Drug Abuse Patient Records regulations: The Federal rules restrict any use of the information to criminally investigate or prosecute any alcohol or drug abuse patient.[facility] HospitalIn the event this information is protected by the Federal Confidentiality of Alcohol and Drug Abuse Patient Records regulations: The Federal rules restrict any use of the information to criminally investigate or prosecute any alcohol or drug abuse patient.[facility] HospitalIn the event this information is protected by the Federal Confidentiality of Alcohol and Drug Abuse Patient Records regulations: The Federal rules restrict any use of the information to criminally investigate or prosecute any alcohol or drug abuse patient.[facility] HospitalIn the event this information is protected by the Federal Confidentiality of Alcohol and Drug Abuse Patient Records regulations: The Federal rules restrict any use of the information to criminally investigate or prosecute any alcohol or drug abuse patient.[facility] HospitalIn the event this information is protected by the Federal Confidentiality of Alcohol and Drug Abuse Patient Records regulations: The Federal rules restrict any use of the information to criminally investigate or prosecute any alcohol or drug abuse patient.[facility] HospitalIn the event this information is protected by the Federal Confidentiality of Alcohol and Drug Abuse Patient Records regulations: The Federal rules restrict any use of the information to criminally investigate or prosecute any alcohol or drug abuse patient.[facility] HospitalIn the event this information is protected by the Federal Confidentiality of Alcohol and Drug Abuse Patient Records regulations: The Federal rules restrict any use of the information to criminally investigate or prosecute any alcohol or drug abuse patient.[facility] HospitalIn the event this information is protected by the Federal Confidentiality of Alcohol and Drug Abuse Patient Records regulations: The Federal rules restrict any use of the information to criminally investigate or prosecute any alcohol or drug abuse patient.[facility] HospitalIn the event this information is protected by the Federal Confidentiality of Alcohol and Drug Abuse Patient Records regulations: The Federal rules restrict any use of the information to criminally investigate or prosecute any alcohol or drug abuse patient.[facility] HospitalIn the event this information is protected by the Federal Confidentiality of Alcohol and Drug Abuse Patient Records regulations: The Federal rules restrict any use of the information to criminally investigate or prosecute any alcohol or drug abuse patient.[facility] HospitalIn the event this information is protected by the Federal Confidentiality of Alcohol and Drug Abuse Patient Records regulations: The Federal rules restrict any use of the information to criminally investigate or prosecute any alcohol or drug abuse patient.[facility] HospitalIn the event this information is protected by the Federal Confidentiality of Alcohol and Drug Abuse Patient Records regulations: The Federal rules restrict any use of the information to criminally investigate or prosecute any alcohol or drug abuse patient.[facility] HospitalIn the event this information is protected by the Federal Confidentiality of Alcohol and Drug Abuse Patient Records regulations: The Federal rules restrict any use of the information to criminally investigate or prosecute any alcohol or drug abuse patient.[facility] HospitalIn the event this information is protected by the Federal Confidentiality of Alcohol and Drug Abuse Patient Records regulations: The Federal rules restrict any use of the information to criminally investigate or prosecute any alcohol or drug abuse patient.[facility] HospitalIn the event this information is protected by the Federal Confidentiality of Alcohol and Drug Abuse Patient Records regulations: The Federal rules restrict any use of the information to criminally investigate or prosecute any alcohol or drug abuse patient.[facility] HospitalIn the event this information is protected by the Federal Confidentiality of Alcohol and Drug Abuse Patient Records regulations: The Federal rules restrict any use of the information to criminally investigate or prosecute any alcohol or drug abuse patient.[facility] HospitalIn the event this information is protected by the Federal Confidentiality of Alcohol and Drug Abuse Patient Records regulations: The Federal rules restrict any use of the information to criminally investigate or prosecute any alcohol or drug abuse patient.[facility] HospitalIn the event this information is protected by the Federal Confidentiality of Alcohol and Drug Abuse Patient Records regulations: The Federal rules restrict any use of the information to criminally investigate or prosecute any alcohol or drug abuse patient.[facility] HospitalIn the event this information is protected by the Federal Confidentiality of Alcohol and Drug Abuse Patient Records regulations: The Federal rules restrict any use of the information to criminally investigate or prosecute any alcohol or drug abuse patient.[facility] HospitalIn the event this information is protected by the Federal Confidentiality of Alcohol and Drug Abuse Patient Records regulations: The Federal rules restrict any use of the information to criminally investigate or prosecute any alcohol or drug abuse patient.[facility] HospitalIn the event this information is protected by the Federal Confidentiality of Alcohol and Drug Abuse Patient Records regulations: The Federal rules restrict any use of the information to criminally investigate or prosecute any alcohol or drug abuse patient.[facility] HospitalIn the event this information is protected by the Federal Confidentiality of Alcohol and Drug Abuse Patient Records regulations: The Federal rules restrict any use of the information to criminally investigate or prosecute any alcohol or drug abuse patient.[facility] HospitalIn the event this information is protected by the Federal Confidentiality of Alcohol and Drug Abuse Patient Records regulations: The Federal rules restrict any use of the information to criminally investigate or prosecute any alcohol or drug abuse patient.[facility] HospitalIn the event this information is protected by the Federal Confidentiality of Alcohol and Drug Abuse Patient Records regulations: The Federal rules restrict any use of the information to criminally investigate or prosecute any alcohol or drug abuse patient.[facility] HospitalIn the event this information is protected by the Federal Confidentiality of Alcohol and Drug Abuse Patient Records regulations: The Federal rules restrict any use of the information to criminally investigate or prosecute any alcohol or drug abuse patient.[facility] HospitalIn the event this information is protected by the Federal Confidentiality of Alcohol and Drug Abuse Patient Records regulations: The Federal rules restrict any use of the information to criminally investigate or prosecute any alcohol or drug abuse patient.[facility] HospitalIn the event this information is protected by the Federal Confidentiality of Alcohol and Drug Abuse Patient Records regulations: The Federal rules restrict any use of the information to criminally investigate or prosecute any alcohol or drug abuse patient.[facility] HospitalIn the event this information is protected by the Federal Confidentiality of Alcohol and Drug Abuse Patient Records regulations: The Federal rules restrict any use of the information to criminally investigate or prosecute any alcohol or drug abuse patient.[facility] HospitalIn the event this information is protected by the Federal Confidentiality of Alcohol and Drug Abuse Patient Records regulations: The Federal rules restrict any use of the information to criminally investigate or prosecute any alcohol or drug abuse patient.[facility] HospitalIn the event this information is protected by the Federal Confidentiality of Alcohol and Drug Abuse Patient Records regulations: The Federal rules restrict any use of the information to criminally investigate or prosecute any alcohol or drug abuse patient.[facility] HospitalIn the event this information is protected by the Federal Confidentiality of Alcohol and Drug Abuse Patient Records regulations: The Federal rules restrict any use of the information to criminally investigate or prosecute any alcohol or drug abuse patient.[facility] Reason for Visit (unrecogniz ed section and content) Reason Comments Patient Update Reason Comments Appointment Referral from Dr. 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 Jovanna Leonard , DO Admit Provider, Att ending Provider, Other [...] Cottrell DO Emergency Provider Active Dr. Jovanna Horacio , DO Admit Provider, Other Provider Ac [...] Dr. Jeovany Gilbert , Other Provider Active Joansabi Ballesteros SENIOR PROCESS ENGINEER, SENIOR PROCESS ENGINEER-C Other Provider Active Dr. Chandler Salamanca , [...] MD Other Provider Active Dr. Jeovany Gilbert DO Other Provider Active Joansabi Ballesteros SENIOR PROCESS ENGINEER, SENIOR PROCESS ENGINEER-C Other Provider Active Team Status: Active Member [...] Dr. Jeovany Gilbert , Other Provider Active Joansabi Ballesteros SENIOR PROCESS ENGINEER, SENIOR PROCESS ENGINEER-C Other Provider Active Team Status: Active Member [...] , DO Other Provider Active Joansabi Ballesteros SENIOR PROCESS ENGINEER, SENIOR PROCESS ENGINEER-C Other Provider Active Team Status: Active Member Role Status Dates No Primary Care Physician Primary Care Provider Active Dr. Sal Cottrell , DO Emergency Provider Active Dr. Jovanna Leonard , DO Admit Provider, Other Provider Ac tive Dr. Chandler Salamanca , DO Attending Provider Active Dr. Monika Crouch MD Referring Provider Active Team Status: Active Member Role Status Dates No Primary Care Physician Primary Care Provider Active Dr. Sal Cottrell , DO Emergency Provider Active Dr. Jovanna Leonard , DO Admit Provider, Other Provider Ac tive Dr. Monika Crouch MD Referring Provider, Other Provid er Active Dr. Chandler Salamanca , DO Attending [...] Krishnamurthy MD Other Provider Active Dr. René Raed MD Other Provider Active Dr. Florentin Blanc MD Other Provider Active Dr. Roberto Pagan MD Other Provider Active Dr. Jeovany Gilbert , DO Other Provider Active Joan Ballesteros SENIOR PROCESS ENGINEER, SENIOR PROCESS ENGINEER-C Other Provider Active Dr. Chandler Salamanca , [...] MD Other Provider Active Dr. Jeovany Gilbert DO Other Provider Active Joan Ballesteros SENIOR PROCESS ENGINEER, SENIOR PROCESS ENGINEER-C Other Provider Active Team Status: Inactive Member Role Status Dates No Primary Care Physician Primary Care Provider, Refer ring Provider Active Dr. Chandler Salamanca DO Attending [...] Other Provider A ctive Dr. Chandler Salamanca DO Attending Provider Active Team Status: Active Member Role Status Dates No Primary Care Physician Primary Care Provider Active Dr. Kourtney Cortez MD Attending Provider Active Team Status: Inactive Member Role Status Dates No Primary Care Physician Primary Care Provider Active Dr. Jake Ackerman DO Emergency Provider Active Dr. Sal Cassidy DO Admit Provider, Other Provider A ctive Dr. Rafael Tereletsky , DO Attending Provider Active Team Status: [...] Dr. Sal Cassidy DO Attending Provider Active Dr. Bisi Alas MD Other Provider Active Team Status: Inactive Member Role Status Dates No Primary Care Physician Primary Care Provider Active Dr. Gianni Perez MD Attending Provider, Emergency Provi gill Active Account Analyst Relationship Specialty Start Date End Date Chandler SalamancaDO [address] [facility] [address] [place], [place] [address] PCP - General Gastroenterology 01/18/23 Account Analyst Relationship Specialty Start Date End Date Chandler Salamanca DO [address] [facility] [address] [place], [place] [address] 401- Technical Rep Gastroenterology 01/24/23 Account Analyst Relationship Specialty Start Date End Date Chandler Salamanca DO [address] [facility] [address] [place], [place] [id number] PCP - General Gastroenterology 01/18/23 01/23/23 Team [...] MD Attending Provider, Referring Pro vider Active Account Analyst Relationship Specialty Start Date End Date Chandler SalamancaDO [address] [facility] [address] [place], [place] [address] 200- Technical Rep Gastroenterology 01/24/23 Account Analyst Relationship Specialty Start Date End Date Vicenta Salamancan B, DO [address] [facility] [address] [place] [address] Technical Rep Gastroenterology 01/24/23 Team Status: Active Member Role [...] , DO Attending Provider Active Team Status: Inactive [...] Gualberto Sabillon , DO Emergency Provider Active Account Analyst Relationship Specialty Start Date End Date Yamilka Salamancaaan JesDO [address] [facility] [address] [place] [address] Technical Rep Gastroenterology 01/24/23 Account Analyst Relationship Specialty Start Date End Date Yamilka Salamancamaura Andre DO [address] [facility] [address] [place], [place] [id number] 126- Technical Rep Gastroenterology 01/24/23 Team Status: Inactive Member Role Status Dates No Primary Care Physician Primary Care Provider Active Dr. Gualberto Sabillon , DO Attending Provider, Emergency Provide r Active Team Status: Inactive Member Role Status Dates No Primary Care Physician Primary Care Provider Active Dr. Charles Johansen , DO Referring Provider, Emergency Provider Active Team Status: Inactive Member Role Status Dates No Primary Care Physician Primary Care Provider Active Dr. Charles Johansen DO Attending Provid er, Referring Provider, Emergency Provider Active Team Status: Inactive Member Role Status Dates No Primary Care Physician Primary Care Provider Active Dr. Leonel Chu MD Emergency Provider Active Account Analyst Relationship Specialty Start Date End Date Chandler Salamanca [address] [place] [address] Technical Rep Gastroenterology 01/24/23 Account Analyst Relationship Specialty Start Date End Date Chandler Salamanca [address] [place] [address] Technical Rep Gastroenterology 01/24/23 Account Analyst Relationship Specialty Start Date End Date Chandler Salamanca [address] [place], [place] [address] Technical Rep Gastroenterology 01/24/23 Account Analyst Relationship Specialty Start Date End Date Chandler Salamanca [address] [place] [address] Technical Rep Gastroenterology 01/24/23 Team Status: Inactive Member Role [...] Primary Care Provider Active Dr. James Wiley DO Emergency Provider Active Account Analyst Relationship Specialty Start Date End Date Chandler Salamanca [address] [place] [address] Technical Rep Gastroenterology 01/24/23 Team Status: Inactive Member Role Status Dates No Primary Care Physician Primary Care Provider Active Dr. Ivana Frederick MD Attending Provider, Referring Pr ovider Active Team Status: Inactive Member Role Status Dates No Primary Care Physician Primary Care Provider Active Dr. James Wiley , DO Attending Provider, Emergency P [place] Active Team Status: Inactive Member Role Status Dates No Primary Care Physician Primary Care Provider Active Dr. Sal Cottrell , DO Emergency Provider Active Account Analyst Relationship Specialty Start Date End Date JadynRaChandlermaura Andre DO [address] [place] [address] Technical Rep Gastroenterology 01/24/23 Account Analyst Relationship Specialty Start Date End Date Ra Jadynhsmaura Andre DO [address] [place] [address] Technical Rep Gastroenterology 01/24/23 Account Analyst Relationship Specialty Start Date End Date Chandler Salamanca DO [address] [place] [address] Technical Rep Gastroenterology 01/24/23 Account Analyst Relationship Specialty Start Date End Date Chandler Salamanca DO [address] [place] [address] Technical Rep Gastroenterology 01/24/23 Account Analyst Relationship Specialty Start Date End Date Chandler Salamanca DO [address] [place] [address] Technical Rep Gastroenterology 01/24/23 Account Analyst Relationship Specialty Start Date End Date Chandler Salamanca DO [address] [place] [address] Technical Rep Gastroenterology 01/24/23 Account Analyst Relationship Specialty Start Date End Date Chandler Salamanca [address] [place] [address] Technical Rep Gastroenterology 01/24/23 Account Analyst Relationship Specialty Start Date End Date Chandler Salamanca [address] [place] [address] Technical Rep Gastroenterology 01/24/23 Account Analyst Relationship Specialty Start Date End Date Chandler Salamanca [address] [place] [address] Technical Rep Gastroenterology 01/24/23 Account Analyst Relationship Specialty Start Date End Date Chandler SalamancaDO [address] [place] [address] Technical Rep Gastroenterology 01/24/23 Account Analyst Relationship Specialty Start Date End Date Chandler Salamanca [address] [place] [address] Technical Rep Gastroenterology 01/24/23 Account Analyst Relationship Specialty Start Date End Date Chandler SalamancaDO [address] [place] [address] Technical Rep Gastroenterology 01/24/23 Account Analyst Relationship Specialty Start Date End Date Chandler SalamancaDO [address] [place] [address] Technical Rep Gastroenterology 01/24/23 Account Analyst Relationship Specialty Start Date End Date Vicenta Salamancan Jes [address] [place] [address] Technical Rep Gastroenterology 01/24/23 Account Analyst Relationship Specialty Start Date End Date Chandler Salamanca [address] [place] [address] Technical Rep Gastroenterology 01/24/23 Account Analyst Relationship Specialty Start Date End Date Chandler SalamancaDO [address] [place] [address] Technical Rep Gastroenterology 01/24/23 Account Analyst Relationship Specialty Start Date End Date Vicenta Salamancan JesDO [address] [place] [address] Technical Rep Gastroenterology 01/24/23 Account Analyst Relationship Specialty Start Date End Date Vicenta Salamancan JesDO [address] [place] [address] Technical Rep Gastroenterology 01/24/23 Account Analyst Relationship Specialty Start Date End Date Vicenta Salamancan JesDO [address] [place] [address] Technical Rep Gastroenterology 01/24/23 Account Analyst Relationship Specialty Start Date End Date Vicenta Salamancan JesDO [address] [place] [address] Technical Rep Gastroenterology 01/24/23 Account Analyst Relationship Specialty Start Date End Date Jadyn Chandler JesDO [address] [place] [address] Technical Rep Gastroenterology 01/24/23 Team Status: Active Member Role/Relationship Status Dates No Primary Care Physician Primary Care Provider Active Team Status: Inactive Member Role/Relationship Status Dates No Primary Care Physician Primary Care Provider Active Start: February 06, 2025 End: February 06, 2025 Dr. Vandana Pickens MD Emergency Provider Active S tart: February 06, 2025 End: February 06, 2025 Account Analyst Relationship Specialty Start Date End Date Chandler Salamanca DO [address] [id number] Technical Rep Gastroenterology 01/24/23 Team Status: Inactive Member Role/Relationship Status Dates No Primary Care Physician Primary Care Provider Active Start: February 08, 2025 End: February 08, 2025 Dr. Carroll Lovell DO Emergency Provider Active Start: February 08, 2025 End: February 08, 2025 Team Status: Active Member Role/Relationship Status Dates No Primary Care Physician Primary Care Provider Active Start: February 08, 2025 Dr. Carroll Lovell DO Emergency Provider Active Start: February 08, 2025 Dr. Monika Crouch MD Attending Provider Active Start: February 08, 2025 Inactive Administered Medications - up to 3 [...] Starting on Marta 08/10/23 at 0930, Until Mon08/11/23 at 0431, Recovery or Phase I (only) Rate Verify 08/10/2023 9:30 AM EST 125 mL/hr 125 mL/hr oxyCODONE IR 5 mg tab(s) (ROXICODONE) 5 mg, ORAL, NEEDED, 1 dose, Starting on Mon08/10/23 at 0917, Until Marta 08/10/23 at 1031, [...] BE BASED ON THE PRIMARY CLINICAL RECORDS. [employer] provides no warranty or guarantee of the accuracy or completeness of information in this document.
[2025-02-08] MEDS: 0.9% Normal Saline (1000mL) 1,000 ML 150 ML IV (18:45)
[2025-02-08] MEDS: 0.9% Saline Lock 10 ML Syringe IV (18:51)
[2025-02-08] MEDS: Ketorolac 30 MG/ML Syringe IV (18:56)
[2025-02-08 19:18] LABS: Barbiturate Urine NEGATIVE (< 200 ng/mL); Benzodiazepine Urine NEGATIVE (< 200 ng/mL); PCP Urine NEGATIVE (< 25 ng/mL); THC Urine NEGATIVE (< 50 ng/mL)
[2025-02-08] MEDS: Senna/Docusate Sodium 1 Tablet 2 TABLET PO (22:10)
[2025-02-09] MEDS: MELATONIN 10 MG TABLET PO ×2 (00:06→23:55)
[2025-02-09] MEDS: 0.9% Normal Saline (1000mL) 1,000 ML 150 ML IV ×2 (01:43→09:53)
[2025-02-09 05:30] VITALS: BP 123/82; PULSE 63; RESP 15; TEMP 36.1; O2SAT 100
[2025-02-09 07:35] LABS: Hematocrit 32.1 % (37-47); Hemoglobin 10.5 g/dL (12.0-15.0); Immature Granulocytes Count 0.000 X10^3/uL (0.0-0.0); Mean Corp Hgb Conc 32.7 g/dL (32-36); Mean Corpuscular Volume 88.4 fL (81-99); Mean Platelet Vol. 9.8 fl (6.2-12.0); NRBC Flagged by Analyzer 0 % (0-5); Platelet Count 240 K/mm3 (150-450); RBC Distribution Width CV 12.9 % (11.6-14.6); RBC Distribution Width SD 41.3 fl (35.1-43.9); Red Blood Count 3.63 M/mm3 (4.2-5.4); White Blood Count 4.7 K/mm3 (4.4-11.0)
[2025-02-09 07:56] LABS: AST(SGOT) 12 U/L (<=31); Alanine Aminotransfer ALT/SGPT 8 U/L (<=34); Albumin, Serum 3.5 g/dL (3.5-5.0); Alkaline Phosphatase 67 U/L (35-104); Anion Gap 8 (5-15); BUN 8 mg/dL (4-19); BUN/Creat Ratio 11.6 RATIO (10-20); Calcium,Total 8.3 mg/dL (7.6-11.0); Carbon Dioxide 24.0 mmol/L (21.0-32.0); Chloride 109 mmol/L (98-108); Estimated Creatinine Clearance 85.20 ml/min (50-250); Globulin 2.4 g/dL (2.2-4.2); Glucose 87 mg/dL (70-99); Potassium 4.1 mmol/L (3.3-5.1)
--- NOTE | 2025-02-09 08:29 | PN.HOSP_ITS ---
Reason for Visit Chief Complaint: Epigastric pain Objective Data Objective Data Vital Signs: Vital Signs Temp Pulse Resp BP Pulse Ox O2 Del Method 97.0 F L 63 15 123/82 H 100 Room Air 02/09/25 05:30 02/09/25 05:30 02/09/25 05:30 02/09/25 05:30 02/09/25 05:30 02/09/25 05:30 Oxygen Delivery Method Room Air Weight: 133 lb 14.4 oz Body Mass Index (BMI) 22.9 Intake & Output: Intake and Output for Last 24 Hours 02/07/25 02/08/25 02/09/25 23:59 23:59 23:59 Intake Total 1000 / 1000 1000 / 1000 Balance 1000 / 1000 1000 / 1000 Lab / Micro Data 02/09/25 06:40 02/09/25 06:40 Labs: Laboratory Results - last 24 hr 02/08/25 12:00: WBC 6.4, RBC 3.98 L, Hgb 11.7 L, Hct 34.7 L, MCV 87.2, MCH 29.4, MCHC 33.7, RDW Std Deviation 40.9, RDW Coeff of Frankie 12.8, Plt Count 267, MPV 9.4, Immature Gran % (Auto) 0.200, Neut % (Auto) 63.0, Lymph % (Auto) 26.1, [place] % (Auto) 7.0, Eos % (Auto) 3.1, Baso % (Auto) 0.6, Absolute Neuts (auto) 4.1, Absolute Lymphs (auto) 1.68, Nucleated RBC % 0, Sodium 137, Potassium 4.4, Chloride 101, Carbon Dioxide 25.3, Anion Gap 11, BUN 12, Creatinine 0.69 L, Estim Creat Clear Calc 88.91, Est GFR (MDRD) Non-Af 109, BUN/Creatinine Ratio 17.0, Glucose 110 H, Calcium 9.1, Total Bilirubin 0.21, AST 15, ALT 10, Alkaline Phosphatase 78, Total Protein 6.8, Albumin 4.1, Globulin 2.6, Albumin/Globulin Ratio 1.6, Lipase 257 H 02/08/25 18:45: Urine Opiates Screen PRESUMPTIVE POSITIVE, U Buprenorphine Qual NEGATIVE, Ur Oxycodone Screen NEGATIVE, Urine Methadone Screen NEGATIVE, Urine Fentanyl Screen NEGATIVE, Ur Barbiturates Screen NEGATIVE, Ur Phencyclidine Scrn NEGATIVE, Ur Amphetamines Screen NEGATIVE, U Benzodiazepines Scrn NEGATIVE, Urine Cocaine Screen NEGATIVE, U Cannabinoids Screen NEGATIVE 02/09/25 06:40: WBC 4.7, RBC 3.63 L, Hgb 10.5 L, Hct 32.1 L, MCV 88.4, MCH 28.9, MCHC 32.7, RDW Std Deviation 41.3, RDW Coeff of Frankie 12.9, Plt Count 240, MPV 9.8, Immature Gran % (Auto) 0.000, Neut % (Auto) 46.7 L, Lymph % (Auto) 41.0, [place] % (Auto) 7.9, Eos % (Auto) 3.8, Baso % (Auto) 0.6, Absolute Neuts (auto) 2.2, Absolute Lymphs (auto) 1.93, Nucleated RBC % 0, Sodium 141, Potassium 4.1, Chloride 109 H, Carbon Dioxide 24.0, Anion Gap 8, BUN 8, Creatinine 0.72, Estim Creat Clear Calc 85.20, Est GFR (MDRD) Non-Af 106, BUN/Creatinine Ratio 11.6, Glucose 87, Calcium 8.3, Total Bilirubin < 0.15, AST 12, ALT 8, Alkaline Phosphatase 67, Total Protein 5.9, Albumin 3.5, Globulin 2.4, Albumin/Globulin Ratio 1.5 Radiography Diagnostic Testing: Radiology Impression Abdomen/Pelvis CT 02/08/25 12:09 IMPRESSION: 1. Small esophageal hiatal hernia. 2. Hepatomegaly with fatty infiltration. 3. Fecal retention in the colon consistent with constipation. 4. Umbilical hernia containing fat. 5. No obstructive uropathy. 6. Stable extrahepatic and intrahepatic ductal dilatation as well as pancreatic ductal dilatation. 7. no CT evidence of acute pancreatitis. No pseudocyst or abscess. No perforation. Reading Location: [facility] Physical Exam Narrative Seen and examined. Patient showed me the rash where she had buprenorphine patch. It looks like dermatitis. Abdominal pain is better but she still complains of. Patient walking in the hallway. Patient also endorses vaping Physical exam General: Alert, Oriented x3, Cooperative. BMI 23.0 kg/m? HEENT: Atraumatic, PERRLA, EOMI, Normocephalic. Oral: No Gingival or Mucosal Lesions/ Ulcerations Neck: Supple, No JVD, Negative Carotid Bruits Chest wall/Lungs: Air entry diminished in bilateral lung bases. No crepitation/rhonchi Cardiovascular: Regular rate and rhythm, Normal S1,S2, No M/G/R Abdomen: Bowel Sounds Present, Soft, mild tenderness in epigastrium/RUQ. Non- Distended : No dysuria. No renal angle tenderness. No suprapubic tenderness. Extremities: No edema, Capillary Refill Less than 3 Seconds Skin: Provide overall, multiple, itchy rash on bilateral upper extremity. No peripheral activity, redness or vesicles noticed. Probably atopic/allergic dermatitis/eczema, does not seem fungal Musculoskeletal: No Tenderness to Palpation of Joints or Extremities Neurological: Cranial nerves II-XII grossly intact, DTR 2+/4. No acute focal neurological deficit. Psych/Mental Status: Flat affect Assessment & Plan Assessment/Plan (1) Pancreatitis: PLAN: Plan This 44-year-old female is being admitted for abdominal pain, nausea and vomiting with history of chronic pancreatitis. # Suspected acute on chronic pancreatitis -Patient with epigastric pain and does have lipase greater than 3 times the upper limit of normal -Imaging stable from previous -IV fluids -Clear liquid diet, advance to soft as tolerated -Supportive care Monitor intake and output Contact dermatitis from buprenorphine patch and bilateral upper extremity dermatitis possible allergic/atopic 2.5% hydrocortisone cream ordered. # Significant constipation: Patient states she usually moves her bowel few days to 1 week. This is normal for her. -CT scan consistent with constipation -Suspect that this is the cause of patient's lower and right sided abdominal discomfort that is different from her usual pancreatitis pain Advised to take a stool softener at home to move bowel every day. MiraLAX and senna as ordered. # Abnormal urination -Patient reports difficulty with urination and emptying her bladder -May be secondary to constipation -Bowel regimen -Does not seem UTI -Postvoid to be checked as well as there is a decent amount of bladder distention on CT scan UA from 02/06 was negative for macroscopic and microscopic analysis. WBC 0-5 cells, RBC 0-5 cells. Polysubstance use history -Patient denies any illicit substances -Already receiving hydrocodone on an outpatient basis so would expect UDS to be positive for opioids but will check UDS -Patient has a buprenorphine patch at home, will continue this but it will be more challenging to control patient's pain which is why not on opiates will be attempted as first-line including Tylenol and Toradol #Tobacco use -Advise cessation -Nicotine replacement available if desired #DVT ppx: Lovenox subcu Laboratory Results 02/08/25 18:45: Urine Opiates Screen PRESUMPTIVE POSITIVE, U Buprenorphine Qual NEGATIVE, Ur Oxycodone Screen NEGATIVE, Urine Methadone Screen NEGATIVE, Urine Fentanyl Screen NEGATIVE, Ur Barbiturates Screen NEGATIVE, Ur Phencyclidine Scrn NEGATIVE, Ur Amphetamines Screen NEGATIVE, U Benzodiazepines Scrn NEGATIVE, Urine Cocaine Screen NEGATIVE, U Cannabinoids Screen NEGATIVE 02/09/25 06:40: WBC 4.7, RBC 3.63 L, Hgb 10.5 L, Hct 32.1 L, MCV 88.4, MCH 28.9, MCHC 32.7, RDW Std Deviation 41.3, RDW Coeff of Frankie 12.9, Plt Count 240, MPV 9.8, Immature Gran % (Auto) 0.000, Neut % (Auto) 46.7 L, Lymph % (Auto) 41.0, [place] % (Auto) 7.9, Eos % (Auto) 3.8, Baso % (Auto) 0.6, Absolute Neuts (auto) 2.2, Absolute Lymphs (auto) 1.93, Nucleated RBC % 0, Sodium 141, Potassium 4.1, Chloride 109 H, Carbon Dioxide 24.0, Anion Gap 8, BUN 8, Creatinine 0.72, Estim Creat Clear Calc 85.20, Est GFR (MDRD) Non-Af 106, BUN/Creatinine Ratio 11.6, Glucose 87, Calcium 8.3, Total Bilirubin < 0.15, AST 12, ALT 8, Alkaline Phosphatase 67, Total Protein 5.9, Albumin 3.5, Globulin 2.4, Albumin/Globulin Ratio 1.5, Lipase 60 Charges/Coding Visit Charges Inpatient E&M: 55381 Subs Hosp L2
[2025-02-09 09:14] LABS: Lipase 60 U/L (13-75)
[2025-02-09] MEDS: 0.9% Saline Lock 10 ML Syringe IV ×3 (09:51→22:22)
[2025-02-09] MEDS: Senna/Docusate Sodium 1 Tablet 2 TABLET PO ×2 (09:51→22:13)
[2025-02-09] MEDS: Nicotine (PBKC) 21 MG Patch TD (09:58)
[2025-02-09 10:02] VITALS: BP 104/80; PULSE 68; RESP 14; TEMP 36.6; O2SAT 97
[2025-02-09] MEDS: Hydrocortisone 2.5% Ointment 20 gm tube 1 APPLIC TOPICAL ×2 (13:07→22:14)
[2025-02-09] MEDS: Polyethylene Glycol 3350 17 GM PACKET PO (15:50)
[2025-02-09 15:51] VITALS: BP 120/78; PULSE 60; RESP 14; TEMP 36.6; O2SAT 98
--- NOTE | 2025-02-09 19:32 | NURSING ---
Patient removed nicotine patch and pain patch she applied at home stated because she was itchy.
[2025-02-09 22:10] VITALS: BP 130/90; PULSE 78; RESP 15; TEMP 36.7; O2SAT 98
[2025-02-10] MEDS: 0.9% Saline Lock 10 ML Syringe IV ×3 (01:46→08:45)
[2025-02-10 05:15] VITALS: BP 133/88; PULSE 71; RESP 15; TEMP 36.6; O2SAT 97
[2025-02-10] MEDS: Senna/Docusate Sodium 1 Tablet 2 TABLET PO (07:54)
[2025-02-10] MEDS: Hydrocortisone 2.5% Ointment 20 gm tube 1 APPLIC TOPICAL (07:55)
[2025-02-10 07:57] VITALS: BP 127/78; PULSE 75; RESP 15; TEMP 36.6; O2SAT 99
[2025-02-10] MEDS: Polyethylene Glycol 3350 17 GM PACKET PO (08:04)
[2025-02-10 10:21] LABS: Mucous, Urine 0 SEEN /hpf (<or=2+); Red Blood Cells-Urine 0 SEEN /hpf (0-5)
[2025-02-10 10:28] LABS: Color, Urine Yellow (Yellow); Glucose, Dipstick Normal (Normal); Ketone-Dipstick Negative (Negative); Leukocyte Esterase-Dipstick 25 /ul (Negative); Nitrite-Dipstick Negative (Negative); Occult Blood-Urine Negative /ul (Negative); Protein-Dipstick Negative (Negative); Specific Gravity, Urine 1.015 (1.002-1.030); Urine Bilirubin Dipstick Negative (Negative)
[2025-02-10 10:37] LABS: Squamous Epithelial Cells - UA 0-5 SEEN /hpf (5-10)
--- NOTE | 2025-02-10 11:08 | DCINST_ITS ---
Discharge Instructions DC O2, CPAP, BIPAP needs Home O2 Discharge instructions: No Dressing / Incision Discharge Activity: Return to Normal Activity Weight Bearing Status: Weight bearing as tolerated Dressing / Incision Call your doctor if you observe: Fever of 101 or Higher, Coldness, Increased Pain, Numbness or Tingling, Change in Color, Inability to urinate, Inability to have a bowel movement, Shortness of breath, Dizziness, Fainting spells, Swelling in the ankles, Chest pain, Prolonged hiccupping, Increased palpitations (irregular heartbeat) and Calf discomfort Follow Up Care When: IN 2 WEEKS Test Results: Test results from this visit will be discussed in further detail at your follow- up appointment, if applicable. 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 She had biliary stent. Advised follow-up in 1 to 2 weeks Discharge Orders/Prescriptions Prescriptions: New hydrocortisone 2.5 % Ointment 1 applic topical BID 14 Days Qty: 20 0RF Protocol: *Topical Application Instructions APPLICATION INSTRUCTIONS: On white patches on upper extremity sennosides-docusate sodium [Stimulant Laxative Plus] 8.6-50 mg Tablet 2 tab PO BID Qty: 0 0RF Continued acetaminophen [Acetaminophen Extra Strength] 500 mg tablet 500 mg PO Q6H PRN (Reason: pain) buprenorphine [Butrans] 20 mcg/hour patch weekly 1 patch topical DAILY hydrocodone-acetaminophen 5-325 mg tablet 1 tab PO Q6H PRN PRN (Reason: Pain) 3 Days Qty: 7 0RF Referrals / Follow Up: Care Physician,No Primary [Primary Care Provider] - Within 1 Week Disposition Disposition (needs filled in before D/C Order can be placed): Home, Self Care
--- NOTE | 2025-02-10 11:19 | PCM.DC.SUM ---
Providers Date of Admission: 02/08/25 Date of Discharge: 02/10/25 Primary Care Physician: No Primary Care Phys Reason For Visit: ACUTE ON CHRONIC PANCREATITIS Diagnosis Discharge Diagnosis (1) Pancreatitis: Status: Acute Code(s): K85.90 - Acute pancreatitis without necrosis or infection, unspecified Plan This 44-year-old female is being admitted for abdominal pain, nausea and vomiting with history of chronic pancreatitis. # Suspected acute on chronic pancreatitis -Patient with epigastric pain and does have lipase greater than 3 times the upper limit of normal -Imaging stable from previous -IV fluids -Clear liquid diet, advance to soft as tolerated -Supportive care Monitor intake and output 02/10: Pain is getting better but if she still needs pain medication. She requested 3 days of pain medication in order to see her PCP. 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 She said she had pancreatic duct stenting done in the recent past. Her last acute gastro attack was in June 2024. She said she drank for 2 years, vodka about 2 drinks per day and her alcohol history is not prolonged to cause severe chronic pancreatitis. Tolerating soft diet. Contact dermatitis from buprenorphine patch and bilateral upper extremity dermatitis possible allergic/atopic 2.5% hydrocortisone cream ordered. # Significant constipation: Patient states she usually moves her bowel few days to 1 week. This is normal for her. -CT scan consistent with constipation -Suspect that this is the cause of patient's lower and right sided abdominal discomfort that is different from her usual pancreatitis pain Advised to take a stool softener at home to move bowel every day. MiraLAX and senna as ordered. # Abnormal urination -Patient reports difficulty with urination and emptying her bladder -May be secondary to constipation -Bowel regimen -Does not seem UTI -Postvoid to be checked as well as there is a decent amount of bladder distention on CT scan UA from 02/06 was negative for macroscopic and microscopic analysis. WBC 0-5 cells, RBC 0-5 cells. Polysubstance use history -Patient denies any illicit substances -Already receiving hydrocodone on an outpatient basis so would expect UDS to be positive for opioids but will check UDS -Patient has a buprenorphine patch at home, will continue this but it will be more challenging to control patient's pain which is why not on opiates will be attempted as first-line including Tylenol and Toradol #Tobacco use -Advise cessation -Nicotine replacement available if desired #DVT ppx: Lovenox subcu Discharge medication reconciliation done. Discharge follow-up instructions completed. Discharge process discussed with the patient and all questions were answered to patient's satisfaction. Follow with PCP in 1 to 2 weeks Total time spent, exact 35 minutes on discharge meds reconciliation, examination, coordination of care with nurses and ancillary staff, review of imaging and blood test and discussion with the patient on follow-up instructions. Laboratory Results 02/08/25 18:45: Urine Opiates Screen PRESUMPTIVE POSITIVE, U Buprenorphine Qual NEGATIVE, Ur Oxycodone Screen NEGATIVE, Urine Methadone Screen NEGATIVE, Urine Fentanyl Screen NEGATIVE, Ur Barbiturates Screen NEGATIVE, Ur Phencyclidine Scrn NEGATIVE, Ur Amphetamines Screen NEGATIVE, U Benzodiazepines Scrn NEGATIVE, Urine Cocaine Screen NEGATIVE, U Cannabinoids Screen NEGATIVE 02/09/25 06:40: WBC 4.7, RBC 3.63 L, Hgb 10.5 L, Hct 32.1 L, MCV 88.4, MCH 28.9, MCHC 32.7, RDW Std Deviation 41.3, RDW Coeff of Frankie 12.9, Plt Count 240, MPV 9.8, Immature Gran % (Auto) 0.000, Neut % (Auto) 46.7 L, Lymph % (Auto) 41.0, Arthur % (Auto) 7.9, Eos % (Auto) 3.8, Baso % (Auto) 0.6, Absolute Neuts (auto) 2.2, Absolute Lymphs (auto) 1.93, Nucleated RBC % 0, Sodium 141, Potassium 4.1, Chloride 109 H, Carbon Dioxide 24.0, Anion Gap 8, BUN 8, Creatinine 0.72, Estim Creat Clear Calc 85.20, Est GFR (MDRD) Non-Af 106, BUN/Creatinine Ratio 11.6, Glucose 87, Calcium 8.3, Total Bilirubin < 0.15, AST 12, ALT 8, Alkaline Phosphatase 67, Total Protein 5.9, Albumin 3.5, Globulin 2.4, Albumin/Globulin Ratio 1.5, Lipase 60 Medications at Discharge Home Medications acetaminophen 500 mg tablet (Acetaminophen Extra Strength) 500 mg PO Q6H PRN pain 12/14/22 buprenorphine 20 mcg/hour weekly transdermal patch (Butrans) 1 patch topical DAILY 01/13/24 hydrocodone-acetaminophen 5-325mg 5mg-325mg 1 tab PO Q6H PRN PRN Pain 3 days #7 TABLETS 02/10/25 hydrocortisone 2.5 % topical ointment 1 applic topical BID 2 weeks #20 grams 02/10/25 sennosides 8.6 mg-docusate sodium 50 mg tablet (Stimulant Laxative Plus) 2 tab PO BID #0 tabs 02/10/25 Physical Exam Narrative Seen and examined. Patient showed me the rash where she had buprenorphine patch. Rash looks better. Abdominal pain is better. Patient also endorses vaping Physical exam General: Alert, Oriented x3, Cooperative. BMI 23.0 kg/m? HEENT: Atraumatic, PERRLA, EOMI, Normocephalic. Oral: No Gingival or Mucosal Lesions/ Ulcerations Neck: Supple, No JVD, Negative Carotid Bruits Chest wall/Lungs: Air entry diminished in bilateral lung bases. No crepitation/rhonchi Cardiovascular: Regular rate and rhythm, Normal S1,S2, No M/G/R Abdomen: Bowel Sounds Present, Soft, No acute tenderness in epigastrium/RUQ. Non-Distended : No dysuria. No renal angle tenderness. No suprapubic tenderness. Extremities: No edema, Capillary Refill Less than 3 Seconds Skin: Provide overall, multiple, itchy rash on bilateral upper extremity. No peripheral activity, redness or vesicles noticed. Probably atopic/allergic dermatitis/eczema, does not seem fungal Musculoskeletal: No Tenderness to Palpation of Joints or Extremities Neurological: Cranial nerves II-XII grossly intact, DTR 2+/4. No acute focal neurological deficit. Psych/Mental Status: Flat affect Weight / BMI Weight Weight: 133 lb 14.4 oz Body Mass Index (BMI) 22.9 ABG / Lab / Microbiology Data 02/09/25 06:40 02/09/25 06:40 Laboratory: Laboratory Results - last 24 hr 02/10/25 10:05: Urine Color Yellow, Urine Clarity Clear, Urine pH 6.0, Ur Specific Silver 1.015, Urine Protein Negative, Urine Glucose (UA) Normal, Urine Ketones Negative, Urine Occult Blood Negative, Urine Nitrite Negative, Urine Bilirubin Negative, Urine Urobilinogen Normal, Ur Leukocyte Esterase 25 H, Urine RBC 0 SEEN, Urine WBC 0 SEEN, Ur Squamous Epith Cells 0-5 SEEN, Urine Bacteria 0 SEEN, Urine Mucus 0 SEEN D/C Instructions Weight Bearing Status: Weight bearing as tolerated Call your doctor if you observe: Fever of 101 or Higher, Coldness, Increased Pain, Numbness or Tingling, Change in Color, Inability to urinate, Inability to have a bowel movement, Shortness of breath, Dizziness, Fainting spells, Swelling in the ankles, Chest pain, Prolonged hiccupping, Increased palpitations (irregular heartbeat) and Calf discomfort DC O2, CPAP, BIPAP Needs Home O2 Discharge instructions: No When: IN 2 WEEKS Meaningful Use Info Meaningful Use Meaningful Use Diagnoses (Choose all that apply): None applicable Discharge Plan Admission Admit Date/Time: 02/08/25 15:01 Primary Reason for Your Visit: Acute on chronic pancreatitis Attending Provider: Soto Mg Primary Care Provider: Care Physician,No Primary Consulting Providers: Monika Crouch Instructions Additional Instructions / Restrictions: 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 She had biliary stent. Advised follow-up in 1 to 2 weeks Discharge Orders/Prescriptions Prescriptions: New hydrocortisone 2.5 % Ointment 1 applic topical BID 14 Days Qty: 20 0RF Protocol: *Topical Application Instructions APPLICATION INSTRUCTIONS: On white patches on upper extremity sennosides-docusate sodium [Stimulant Laxative Plus] 8.6-50 mg Tablet 2 tab PO BID Qty: 0 0RF Continued acetaminophen [Acetaminophen Extra Strength] 500 mg tablet 500 mg PO Q6H PRN (Reason: pain) buprenorphine [Butrans] 20 mcg/hour patch weekly 1 patch topical DAILY hydrocodone-acetaminophen 5-325 mg tablet 1 tab PO Q6H PRN PRN (Reason: Pain) 3 Days Qty: 7 0RF Referrals / Follow Up: Ivana Frederick MD [Med Staff - Active Staff] - Within 2 Weeks (For chronic pancreatitis abdominal pain) Care Physician,No Primary [Primary Care Provider] - Within 1 Week Disposition Disposition (needs filled in before D/C Order can be placed): Home, Self Care Charges/Coding Visit Charges Inpatient E&M: 03800 Disch Hosp >30min
--- NOTE | 2025-02-10 11:31 | PHA.DC_ITS ---
Pharmacy [facility] has performed discharge medication reconciliation and counseling for this patient. The patient's discharge medication list was reviewed for discrepancies and discrepancies were resolved. The patient was counseled on the following discharge medications and changes in medications for homegoing were reviewed. The Reason for Use, instructions for use, and potential side effects were reviewed for all new medications. The patient's questions regarding all of their medications were answered. 1. Hydrocodone/acetaminophen 1 tablet PO Q6H PRN pain 2. Senna/docusate 2 tablets PO BID 3. Hydrocortisone 2.5% ointment BID The patient was able to verbally demonstrate an understanding of their discharge medications. Medications at Discharge Home Medications acetaminophen 500 mg tablet (Acetaminophen Extra Strength) 500 mg PO Q6H PRN pain 12/14/22 buprenorphine 20 mcg/hour weekly transdermal patch (Butrans) 1 patch topical DAILY 01/13/24 hydrocodone-acetaminophen 5-325mg 5mg-325mg 1 tab PO Q6H PRN PRN Pain 3 days #7 TABLETS 02/10/25 hydrocortisone 2.5 % topical ointment 1 applic topical BID 2 weeks #20 grams 02/10/25 sennosides 8.6 mg-docusate sodium 50 mg tablet (Stimulant Laxative Plus) 2 tab PO BID #0 tabs 02/10/25
--- NOTE | 2025-02-10 11:38 | CASEMGMT ---
VIVIEN LYON Assessment: Face to Face with pt for initial transition planning/care coordination assessment. RN CAMRON introduced self and role at [facility], pt voices understanding and consents to assessment. Pt is A&O x4 and answers all questions appropriately at this time. Pt sitting up in bed in no distress. Care providers, pharmacy, and demographics verified/updated. Admitting Dx: acute on chronic pancreatitis Strata Score: 3 PCP:Denies, pt denies wanting a list of local healthcare providers. Specialists:ANGEL Celestin Preferred Pharmacy:[facility] Insurance: [employer] Prescription Benefit: yes LNOK: Rich Mon, son Living Arrangements: Pt lives with mother in a single story home with 4 steps to enter. Pt reports she is I in ADL/IADLs and denies concerns at home. Transportation: Pt drives self and denies concerns with transportation. DME:denies HHC/SNF: Denies hx of Pt states no concerns with going home at time of dc. Pt states no further concerns/needs. CM to follow. Advised pt to ask CM if any further questions/concerns/needs arise, voices understanding. Pt Goal: Home Plan: Home [facility] CM
== END 2025-02-10 12:17 | disposition home or self-care (01) | DRG 282 ==
LOC: ED 14:22 → MS3 17:32
PROVIDERS: Admitting Provider Internal Medicine; Emergency Provider Emergency Medicine; Visit Provider Internal Medicine
DX: K85.90 Acute pancreatitis without necrosis or infection, unspecified (principal); F17.210 Nicotine dependence, cigarettes, uncomplicated; I10 Essential (primary) hypertension; K86.1 Other chronic pancreatitis; K42.9 Umbilical hernia without obstruction or gangrene; K44.9 Diaphragmatic hernia without obstruction or gangrene; L25.9 Unspecified contact dermatitis, unspecified cause; K59.00 Constipation, unspecified; Z86.718 Personal history of other venous thrombosis and embolism; Z98.51 Tubal ligation status
CPT/HCPCS: 36415; 74177; 76705; 80053; 80307; 81001; 83690; 84703; 85025; 96374; 96376; 99282; 99284; 99406; Q9967; A4216; J2405

== ENCOUNTER → 2025-03-12 | Outpatient (CLI) | payer MEDICAID, SELFPAY ==
[2025-03-12 16:28] LABS: Barbiturate Urine NEGATIVE (< 200 ng/mL); Benzodiazepine Urine NEGATIVE (< 200 ng/mL); PCP Urine NEGATIVE (< 25 ng/mL); THC Urine NEGATIVE (< 50 ng/mL)
== END | disposition home or self-care (01) ==
LOC: LAB 14:53
PROVIDERS: Referring Provider Anesthesiology Pain Medicine; Visit Provider Anesthesiology Pain Medicine
DX: F11.20 Opioid dependence, uncomplicated (principal)
CPT/HCPCS: 80307